=== PATIENT | female | born 1955 | race Caucasian/White ===

== ENCOUNTER → 2017-04-29 | Outpatient (CLI) | payer MEDICAID ==
[~2017-04-29] VITALS: Ht 172.7 cm; Wt 97.5 kg
[~2017-04-29] MED LIST: ASP81TEC PO; CATHETER FLUSH 10 ML SYR IV PRN; CLOP75TA PO; FENO145T2 PO; LINA5TAB PO; LISI10TA PO; LNS30CCR PO; MTP100TCR PO; NF-TYLARTH PO; NIAC-4 PO; OMEG1CAP74 PO; OXYC-12 PO; PIOG1TAB2 PO; REGADENOSON 0.4 MG/5 ML SYR (LEXISCAN) IV ONE; SCR1T1 PO; [UNRECOGNIZED DRUG - CODE] SL
--- NOTE | 2017-04-30 12:11 | STRESS TEST ---
PROCEDURE PHYSICIAN: CAT RUSSELL DATE OF PROCEDURE: 04/29/2017 PHARMACOLOGIC NUCLEAR STRESS TEST REPORT: ATTENDING/REFERRING PHYSICIAN: Dr. Garcia/María Farooq. PRIMARY PHYSICIAN: Dr. Davi Wright. DIAGNOSES: Coronary artery disease. PROCEDURE DETAILS: The patient was brought to the stress lab after informed consent was taken. Pharmacological nuclear stress test was performed according to the protocol. 0.4 mg of Lexiscan was given IV. Low grade exercise was performed. Baseline EKG showed sinus rhythm with no ST-T wave abnormalities. Initial heart rate was 53 bpm. Maximum heart rate was 87 bpm. Blood pressure was 145/66 mmHg. The patient did not have any ST changes, chest pain during Lexiscan infusion. 10.43 mCi of Myoview were given for rest images and 28.5 mCi of Myoview were given for stress imaging. TID is 1.2, ejection fraction is 63%. Gated images showed no wall motion abnormality. There is a small, mild intensity, basal lateral reversible defect. IMPRESSION/CONCLUSION: 1. Pharmacological stress test is negative for ischemia. 2. There is a small area of basal lateral reversible defect. Abnormal TID. This may suggest an abnormal study. Clinical correlation is recommended. Job ID: [id number] Dictated Date: 04/29/2017 13:08:59 Snaker Driving Horses Date: 04/30/2017 12:04:26 / renato
== END ==
LOC: CARD 07:08
PROVIDERS: ATTEND Nurse Practitioner Family
DX: I25.10 Atherosclerotic heart disease of native coronary artery without angina pectoris (principal); I65.23 Occlusion and stenosis of bilateral carotid arteries; E11.9 Type 2 diabetes mellitus without complications; E78.4 Other hyperlipidemia; I10 Essential (primary) hypertension; R07.89 Other chest pain
CPT/HCPCS: 78452; 93017

== ENCOUNTER → 2017-05-03 | Outpatient (CLI) | payer MEDICAID ==
[~2017-05-03] MED LIST changes: -CATHETER FLUSH 10 ML SYR IV PRN; -REGADENOSON 0.4 MG/5 ML SYR (LEXISCAN) IV ONE
== END ==
LOC: PREOP 05:40
PROVIDERS: ATTEND Surgery
DX: Z01.818 Encounter for other preprocedural examination (principal); Z12.11 Encounter for screening for malignant neoplasm of colon; Z86.010 Personal history of colon polyps; Z87.11 Personal history of peptic ulcer disease

== ENCOUNTER → 2017-05-13 | Outpatient (CLI) | payer MEDICAID ==
[2017-05-13 14:42] LABS: ANION GAP 11 MMOL/L (5-14); BLOOD UREA NITROGEN 17 MG/DL (7-18); BUN/CREATININE RATIO 22; CALCIUM 9.8 MG/DL (8.5-10.1); CARBON DIOXIDE 24 MMOL/L (21-32); CHLORIDE 107 MMOL/L (98-107); CREATININE SERUM 0.78 MG/DL (0.60-1.30); GFR ESTIMATED > 60; GLUCOSE 117 MG/DL (70-105); POTASSIUM 4.2 MMOL/L (3.6-5.0); SODIUM 142 MMOL/L (135-145)
== END ==
LOC: LAB 14:16
PROVIDERS: ATTEND Nurse Practitioner Family
DX: E11.9 Type 2 diabetes mellitus without complications (principal)
CPT/HCPCS: 36415; 80048

== ENCOUNTER 2017-05-18 07:11 | Day surgery (SDC) | payer MEDICAID ==
[2017-05-18] VITALS (10 sets, daily range): BP systolic 140–158; BP diastolic 65–80
[~2017-05-18] VITALS: Ht 172.7 cm; Wt 97.5 kg
[~2017-05-18 07:11] MED LIST changes: +HEParin (CATH LAB) 2,000 ML IV ONE; +NS IV 1000 ML 1,000 ML ONE
[2017-05-18] MEDS ORDERED: NS IV 1000 ML 1,000 ML IV SCH ×2 (07:45→12:28)
[2017-05-18 07:51] LABS: MEAN PLATELET VOLUME 10.9 FL (7.4-10.4); RED BLOOD COUNT 4.59 10^6/uL (4.35-5.85); RED CELL DISTRIBUTION WIDTH 13.5 % (10.0-14.5); WHITE BLOOD COUNT 6.9 10^3/uL (4.3-11.0)
[2017-05-18 08:09] LABS: ALANINE AMINOTRANSFERASE 13 U/L (0-55); ALBUMIN 3.8 GM/DL (3.2-4.5); ANION GAP 8 MMOL/L (5-14); ASPARTATE AMINO TRANSFERASE 15 U/L (5-34); BILIRUBIN,TOTAL 0.5 MG/DL (0.1-1.0); BLOOD UREA NITROGEN 18 MG/DL (7-18); BUN/CREATININE RATIO 25; CALCIUM 9.4 MG/DL (8.5-10.1); CARBON DIOXIDE 26 MMOL/L (21-32); CHLORIDE 109 MMOL/L (98-107); CHOLESTEROL 136 MG/DL (< 200); CREATININE SERUM 0.72 MG/DL (0.60-1.30); DIRECT LDL 92 MG/DL (1-129); GFR ESTIMATED > 60; GLUCOSE 114 MG/DL (70-105); POTASSIUM 3.9 MMOL/L (3.6-5.0); SODIUM 143 MMOL/L (135-145); TOTAL PROTEIN 6.9 GM/DL (6.4-8.2); TRIGLYCERIDES 79 MG/DL (<150); VLDL CHOLESTEROL 16 MG/DL (5-40)
[2017-05-18 08:13] LABS: PROTHROMBIN TIME PATIENT 12.5 SEC (12.2-14.7)
[2017-05-18] MEDS ORDERED: SITA100T12 PO (08:24)
[2017-05-18] MEDS ORDERED: NIAC1CAP PO (08:24)
[2017-05-18] MEDS ORDERED: ONDN4T PO (08:24)
[2017-05-18] MEDS ORDERED: PANT40TA2 PO (08:24)
[2017-05-18] MEDS ORDERED: OXYC-464 PO (08:24)
[2017-05-18] MEDS ORDERED: ACET-2267 PO (08:24)
[2017-05-18] MEDS ORDERED: FLUT16SP22 NS (08:24)
[2017-05-18] MEDS ORDERED: METO100T2 PO (08:24)
[2017-05-18] MEDS ORDERED: PIOG1TAB6 PO (08:24)
[2017-05-18] MEDS ORDERED: LISI-552 PO (08:24)
[2017-05-18] MEDS ORDERED: MIDAZOLAM 5 MG/5 ML (VERSED) VIAL ONE (09:29)
[2017-05-18] MEDS ORDERED: fentaNYL INJECTION 100 MCG/2 ML AMP ONE (09:30)
[2017-05-18] MEDS ORDERED: diphenhydrAMINE 50 MG/ML INJ (BENADRYL) ONE (09:30)
--- NOTE | 2017-05-18 09:51 | Cardiac Procedure Note-CS/ASA ---
Pre-Procedure Note Pre-Op Procedure Note H&P Reviewed The H&P was reviewed, patient examined and no changes noted. Date H&P Reviewed: May 18, 2017 Time H&P Reviewed: 09:50 Conscious Sedation Pre-Proced Time Reviewed: 09:50 ASA Class: 3 Airway Mallampati Classification: ([place] appropriate class) I. II. III, IV Lungs Heart ASA score ASA 1: a normal healthy patient ASA 2: a patient with a mild systemic disease (mid diabetes, controlled hypertension, obesity ASA 3: a patient with a severe systemic disease that limits activity (angina , COPD, prior Myocardial infarction) ASA 4: a patient with an incapacitating disease that is a constant threat to life (CHF, renal failure) ASA 5: a moribund patient not expected to survive 24 hrs. (ruptured aneurysm) ASA 6: a declared brain patient whose organs are being harvested. For emergent operations, add the letter E after the classification Grade 3 Sedation Plan: Analgesia, Amnesia, Plan communicated to team members, Discussed options with patient/fam, Discussed risks with patient/fam Note The patient is an appropriate candidate to undergo the planned procedure, sedation, and anesthesia. The patient immediately re-assessed prior to indication. DASIA CHEATHAM MD FACP FAC CCDS May 18, 2017 09:50
[2017-05-18] MEDS ORDERED: PATIENT MAY USE OWN MEDS, ALL PO SCH (12:30)
--- NOTE | 2017-05-18 12:31 | Discharge Inst-Cardiology ---
Discharge Inst-Cardiac Discharge Medications Continued Medications: Acetaminophen (Tylenol Extra Strength) 500 Mg Tablet 1000 MG PO DAILY, TAB TAKES 2 (500MG) TABLETS Aspirin (Aspirin Ec 81 Mg) 81 Mg Tabec 81 MG PO HS, TAB Clopidogrel Bisulfate (Plavix 75 Mg) 75 Mg Tablet 75 MG PO DAILY, TAB Fenofibrate,Micronized (Tricor) 145 Mg Tablet 145 MG PO HS, TAB Fluticasone Propionate (Fluticasone Propionate) 16 Gm [place].susp 1 SPRAY NS BID, SPRAY Lisinopril (Lisinopril) 20 Mg Tablet 20 MG PO BID, TAB Metoprolol Tartrate (Metoprolol Tartrate) 100 Mg Tablet 100 MG PO BID, TAB Niacin (Inositol Niacinate) (Niacin 500 mg Capsule) 500 Mg Capsule 500 MG PO HS, CAP Nitroglycerin (Nitromist) 8.5 Gm Aerosol 1 SPRAY SL UD PRN for CHEST PAIN, EA [place]-3/Dha/Epa/Fish Oil (Fish Oil 1,000 Mg Softgel) 1,000 Mg Capsule 1000 MG PO BID, CAP Ondansetron HCl (Zofran) 4 Mg Tab 4 MG PO Q8H PRN for NAUSEA/VOMITING-1ST LINE, TAB Oxycodone HCl/Acetaminophen (Oxycodon-Acetaminophen 7.5-325) 1 Each Tablet 1 TAB PO TID PRN for PAIN-MODERATE, TAB Pantoprazole Sodium (Protonix) 40 Mg Tablet.dr 40 MG PO DAILY, TAB Pioglitazone HCl/Metformin HCl (Actoplus Met 15 mg-500 mg Tab) 1 Each Tablet 0.5 TAB PO BID, TAB Sitagliptin Phosphate (Januvia) 100 Mg Tablet 100 MG PO DAILY, TAB Sucralfate (Carafate) 1 Gm Tab 1 GM PO ACHS, DASIA GORDON MD FACP FAC CCDS May 18, 2017 12:31
--- NOTE | 2017-05-18 12:32 | Discharge Inst-Post CATH ---
Discharge Inst-CATH Post Cardiac Cath D/C Inst Follow Up/Plan F/u with Dr Garcia in 2-3 weeks CARDIAC CATH DISCHARGE INSTRUCTIONS *Hold Metformin for 48 hours post heart cath. ACTIVITY * Go Home directly and rest. * Limit activity of the leg (or wrist if it was used) for 7 days including aerobics, swimming, jogging, bicycling, etc. * Restrict stair-climbing for 7 days if possible, if not, climb up with your non -cath leg, then bring together on the same step. * Avoid lifting, pushing, pulling or excessive movement of the affected extremity for 7 days. * Customary sexual activity may be resumed after 2 days-use caution not to use a position that strains or causes pain to the affected extremity. * No driving for 24 hours. * NO SMOKING. * Avoid straining for bowel movements for 7 days. * Gentle walking on level ground is allowed. * Returning to work will depend on the type of procedure and the results. Your doctor will discuss this with you. CALL YOUR DOCTOR FOR ANY OF THE FOLLOWING: *If bleeding from the puncture site occurs- Apply gentle pressure to site with clean cloth and call your doctor or EMS. * If a knot or lump forms under the skin, increases in size, or causes pain. * If bruising appears to be worsening or moving further down your leg instead of disappearing. * Temperature above 101 F. CARE OF YOUR GROIN INCISION; * Bruising or purple discoloration of the skin near the puncture site is common. * You may shower only, no bathtub bathing for 5 days. Be careful to avoid slipping as your leg may feel stiff. * If a closure device was used on your femoral artery, please see the attached guide regarding care of the device and your leg. * REMOVE the dressing from your groin the next day after your procedure in the shower. CARE OF YOUR WRIST INCISION; * Bruising or purple discoloration of the skin near the puncture site is common. * You may shower. * DO NOT submerge wrist. * Remove dressing in 24 hours. DASIA GARCIA MD [facility] CCDS May 18, 2017 12:32
--- NOTE | 2017-05-19 10:04 | CARDIAC CATHETERIZATION ---
PROCEDURE PHYSICIAN: DASIA CHEATHAM DATE OF PROCEDURE: 05/18/2017 CARDIAC CATHETERIZATION REPORT: Amy Jeffrey is a 62-year-old lady who has a history of coronary artery disease. She underwent a myocardial perfusion study with Dr. Garcia. Although the electrocardiographic portion was normal, Dr. Garcia did report anterior ischemia on perfusion imaging. Cardiac catheterization was carried out today after having obtained an informed consent. PROCEDURE: She is brought to the cardiac catheterization laboratory in a fasting state. The right groin was prepared and draped in the usual sterile fashion. 1% lidocaine was used for local anesthesia. Modified Seldinger technique was used to advance a 5-Lao sheath in the right femoral artery. A 5-Lao JL4 catheter was used for left coronary angiography. 5-Lao JR4 catheter was used for right coronary angiography. A 5-Lao pigtail catheter was used for left heart catheterization and left ventricular angiography. She tolerated the procedure well. Angiography of the right femoral artery was carried out through the sheath. Mynx was used to achieve hemostasis following sheath removal. She tolerated the procedure well. HEMODYNAMICS: Left ventricular end diastolic pressure following coronary angiography was 12 mmHg. There was no significant pressure gradient on pullback across the aortic valve. Ascending aortic pressure was 146/69 with a mean of 46 mmHg. LEFT VENTRICULAR ANGIOGRAPHY: Left ventricular angiography was carried out in the right anterior oblique projection only. Global left ventricular systolic function is normal. No regional wall motion abnormalities are seen. The left ventricular ejection fraction is 55 to 60%. CORONARY ANGIOGRAPHY: There are mild diffuse coronary plaques. No angiographically significant obstructive disease is seen. The left main coronary, left anterior descending, left circumflex, and right coronary arteries exhibit mild plaques. Right coronary artery is dominant. CONCLUSION: 1. Angiographically minimal coronary artery disease. 2. Normal global left ventricular systolic function with an ejection fraction of 55 to 60%. 3. No significant mitral regurgitation. 4. Normal left ventricular end diastolic pressure. DISCUSSION AND RECOMMENDATIONS: Based on the results of this study, the myocardial perfusion imaging appears to have been a false positive study. It appears appropriate to continue a conservative approach. Outpatient follow-up is advised. Risk factor modification was reviewed. Job ID: [id number] Dictated Date: 05/18/2017 10:30:48 Roller Skate Assembler Date: 05/19/2017 09:54:42 / renato
[2017-08-27] MEDS ORDERED: TIZA4TAB3 PO (07:48)
[2017-08-27] MEDS ORDERED: TRAM50TA2 PO (09:37)
== END 2017-05-18 14:25 | disposition home or self-care (01) ==
LOC: CATH 07:11 → SURG 10:37 → ENPENDDIS 13:30 → CATH 14:25
PROVIDERS: ATTEND Internal Medicine Cardiovascular Disease
DX: R94.39 Abnormal result of other cardiovascular function study (principal); R00.0 Tachycardia, unspecified; R07.89 Other chest pain; I25.10 Atherosclerotic heart disease of native coronary artery without angina pectoris; I11.9 Hypertensive heart disease without heart failure; E66.9 Obesity, unspecified; E11.9 Type 2 diabetes mellitus without complications; K21.9 Gastro-esophageal reflux disease without esophagitis; Z79.84 Long term (current) use of oral hypoglycemic drugs; Z79.899 Other long term (current) drug therapy; Z68.33 Body mass index [BMI] 33.0-33.9, adult
CPT/HCPCS: 36415; 80053; 80061; 85027; 85610; 85730; 87081; 93005; 93458

== ENCOUNTER 2017-08-16 05:55 | Outpatient (CLI) | payer MEDICAID ==
[~2017-08-16] VITALS: Ht 172.7 cm; Wt 97.5 kg
[~2017-08-16 05:55] MED LIST changes: +ACET-2267 PO; +FLUT16SP22 NS; -HEParin (CATH LAB) 2,000 ML IV ONE; +LISI-552 PO; +METO100T2 PO; +NIAC1CAP PO; -NS IV 1000 ML 1,000 ML ONE; +ONDN4T PO; +OXYC-464 PO; +PANT40TA2 PO; +PIOG1TAB6 PO; +SITA100T12 PO
[2017-08-16] MEDS ORDERED: ASPI-999 PO (14:20)
[2017-08-16] MEDS ORDERED: ATOR10TA PO (14:20)
[2017-08-16] MEDS ORDERED: SUCR1TAB PO (14:20)
[2017-08-16] MEDS ORDERED: OMEG-160 PO (14:20)
== END 2017-08-16 14:21 ==
LOC: PREOP 05:55
PROVIDERS: ATTEND Surgery
DX: Z01.818 Encounter for other preprocedural examination (principal); Z86.010 Personal history of colon polyps; Z87.11 Personal history of peptic ulcer disease

== ENCOUNTER 2017-08-18 12:03 | Day surgery (SDC) | payer MEDICAID ==
[~2017-08-18] VITALS: Ht 172.7 cm; Wt 97.5 kg
[~2017-08-18 12:03] MED LIST changes: +ASPI-999 PO; +ATOR10TA PO; +OMEG-160 PO; +SUCR1TAB PO
[2017-08-18] MEDS ORDERED: LIDOCAINE JELLY 2% (XYLOCAINE) 5 ML TUBE MM PRN (12:15)
[2017-08-18] MEDS ORDERED: HURRICAINE EXT TUBE (BENZOCAINE) XX PRN (12:15)
[2017-08-18] MEDS ORDERED: NS IV 500 ML 500 ML IV PRN (12:30)
[2017-08-18 12:46] VITALS: BP 148/73
--- NOTE | 2017-08-18 13:13 | Progress Note-Pre Operative ---
Pre-Operative Progress Note H&P Reviewed The H&P was reviewed, patient examined and no changes noted. Date Seen by Provider: Aug 18, 2017 Time Seen by Provider: 13:00 Date H&P Reviewed: Aug 18, 2017 Time H&P Reviewed: 13:00 Pre-Operative Diagnosis: PUD, screening colonosocopy MARGUERITE WAITE MD Aug 18, 2017 1:13 pm
--- NOTE | 2017-08-18 13:13 | Conscious Sedation/ASA ---
Conscious Sedation Pre-Proced Time Reviewed: 13:00 ASA Class: 2 Airway Mallampati Classification: ([place] appropriate class) I. II. III, IV Lungs Heart ASA score ASA 1: a normal healthy patient ASA 2: a patient with a mild systemic disease (mid diabetes, controlled hypertension, obesity ASA 3: a patient with a severe systemic disease that limits activity (angina , COPD, prior Myocardial infarction) ASA 4: a patient with an incapacitating disease that is a constant threat to life (CHF, renal failure) ASA 5: a moribund patient not expected to survive 24 hrs. (ruptured aneurysm) ASA 6: a declared brain patient whose organs are being harvested. For emergent operations, add the letter E after the classification Grade 3 Sedation Plan: Analgesia, Amnesia, Plan communicated to team members, Discussed options with patient/fam, Discussed risks with patient/fam Note The patient is an appropriate candidate to undergo the planned procedure, sedation, and anesthesia. The patient immediately re-assessed prior to indication. MARGUERITE WAITE MD Aug 18, 2017 1:12 pm
[2017-08-18] MEDS ORDERED: ACETAMINOPHEN 325 MG TABLET/CAPLET (TYLENOL) PO PRN (13:15)
[2017-08-18] MEDS ORDERED: morphine INJ 10 MG/ML 1ML (SYR OR VIAL) IV PRN (13:15)
[2017-08-18] MEDS ORDERED: ONDANSETRON 4 MG/2 ML (SDV) Z0FRAN IV PRN (13:15)
[2017-08-18] MEDS ORDERED: LIDOCAINE JELLY 2% (XYLOCAINE) 5 ML TUBE ONE (13:34)
[2017-08-18] MEDS ORDERED: MIDAZOLAM 2 MG/2 ML (VERSED) VIAL ONE ×5 (13:35)
[2017-08-18] MEDS ORDERED: HURRICAINE EXT TUBE (BENZOCAINE) ONE (13:35)
[2017-08-18] MEDS ORDERED: fentaNYL INJECTION 100 MCG/2 ML AMP ONE ×2 (13:35)
[2017-08-18] MEDS: MIDAZOLAM 2 MG/2 ML (VERSED) VIAL IVP PRN ×5 (13:59→14:20)
[2017-08-18] MEDS: fentaNYL INJECTION 100 MCG/2 ML AMP IVP PRN ×4 (14:00→14:29)
--- NOTE | 2017-08-18 14:51 | Progress Note-Post Operative ---
Post-Operative Progess Note Surgeon (s)/Horticulture Supervisor (s) Surgeon MARGUERITE WAITE MD Horticulture Supervisor: none Pre-Operative Diagnosis PUD, screening colonosocopy Post-Operative Diagnosis reflux esophagitis(class B), no HH, mild gastritis. chronic stage 2 ext and int hemorrhoids, HP rectal polyp(2mm). Procedure & Operative Findings Date of Procedure 08/18/17 Procedure Performed/Findings EGD with bx. Colonoscopy with bx. Anesthesia Type CS Estimated Blood Loss Estimated blood loss (mL): minimal Specimens/Packing Specimens Removed GE jxn, antrum, rectal polyp MARGUERITE WAITE MD Aug 18, 2017 2:51 pm
--- NOTE | 2017-08-18 14:52 | Discharge Inst-Surgical ---
D/C Lap Instructions-RAVINDRA Follow Up 10 years or PRN Activity as tolerated High Fiber Diet 25g or more per day Avoid Alcohol, Caffeine, Spicy [place] and Acid foods. Drink 64 fluid oz or more of fluids per day. Symptoms to Report: Fever over 101 degree F, Nausea/Vomiting If any problems/questions: Contact your physician or go to Emergency Room MARGUERITE WAITE MD Aug 18, 2017 2:52 pm
[2017-08-18 14:55] VITALS: BP 179/84
[2017-08-18 15:20] VITALS: BP 175/94
[2017-08-18 15:37] VITALS: BP 175/94
--- NOTE | 2017-08-19 03:04 | OPERATIVE REPORT ---
DATE OF SERVICE: 08/18/2017 ATTENDING PRIMARY CARE PHYSICIAN: Dr. Davi Wright. PREOPERATIVE DIAGNOSES: History of peptic ulcer disease and gastroesophageal reflux disease. Screening colonoscopy. POSTOPERATIVE DIAGNOSES: Reflux esophagitis class B. No hiatal hernia, mild gastritis. Chronic stage II external and internal hemorrhoids, small hyperplastic polyp of the rectum 2 mm in size and remainder of the colon was normal. PROCEDURE: EGD with biopsy, colonoscopy with biopsy. SURGEON: Dr. Waite. ANESTHESIA: Conscious sedation. ESTIMATED BLOOD LOSS: Minimal. FINDINGS: EGD, reflux esophagitis class B, no hiatal hernia, mild gastritis. Colonoscopy, chronic stage II external and internal hemorrhoids, small hyperplastic polyp of the rectum 2 mm in size. The remainder of the rectum and colon were normal. DISPOSITION: The patient tolerated the procedure well. The patient is a 60-year-old female referred over to us for reflux type of symptoms, which have worsened in the past month with epigastric burning sensation assisted with eating fruits as well as tomatoes. She does report also history of peptic ulcer disease. She is also in need of a screening colonoscopy. Her last colonoscopy was 10 years ago and she does remember polyps. She does not report any red blood per rectum nor any dark tarry stools. DESCRIPTION OF PROCEDURE: The patient was brought to the endoscopy suite, laid in the left lateral decubitus position. After adequate IV pain and sedating medications and conscious sedation with anesthesia, the mouthpiece was applied. Endoscope was then placed in the mouth visualizing the pharynx and hypopharyngeal region. Vocal cords, epiglottis and vallecula identified and appeared to be normal. The endoscope was then gently intubated at the esophageal opening. Esophagus is insufflated. The endoscope was then advanced to the first, second and third portions of the esophagus at the level of the GE junction and reflux esophagitis class B identified. There were no ulcers or strictures identified in this region. A biopsy was taken with forceps with visualization of good hemostasis. The endoscope was then easily advanced in the stomach and the endoscope retroflexed visualizing no hiatal hernia. Mild severity gastritis was noted. There were no ulcers, polyps or any neoplasms identified. The endoscope was then advanced to the pylorus and the first and second portions of the duodenum, which appeared normal with no distal obstructions. A biopsy was taken of the antrum for H. pylori with forceps with visualization of good hemostasis. Endoscope was then advanced to the pylorus and the first and second portion of the duodenum. The endoscope was then slowly withdrawn taking a second look and suctioning of residual air with no additional findings. The patient tolerated this portion of the procedure well. We feel that her worsening reflux type of symptoms are more related to diet and lifestyle. The recommendations that she proceed with the necessary lifestyle and diet accommodation including small and more frequent meals, avoidance of eating at night as well as head elevation while lying supine. She also needs to avoid caffeinated beverages, spicy, greasy and acidic foods including tomatoes and other raw fruits. We do recommend that she continue her Protonix on a daily basis as well as Carafate q.i.d. for 2 weeks. Under the same conscious sedation anesthesia, we then proceeded with the colonoscopy portion of the procedure. A digital rectal examination was performed, which revealed chronic stage II external and internal hemorrhoids, not actively demonstrated inflamed and no bleeding. Normal sphincter tone was felt and there were no palpable masses. The endoscope was then intubated to the anus, rectum and gently insufflated. The endoscope was then advanced to the valves that adhesed the rectum. A small hyperplastic polyp was identified approximately 2 mm in size. This was biopsied and this destroyed using forceps and electrocautery with visualization of good hemostasis. The endoscope was then advanced through the sigmoid colon where no diverticulosis identified. We then proceeded through the descending, transverse and ascending colon of the cecum, which were normal. The endoscope was then slowly withdrawn, we are taking a second look and suctioning residual air with no additional findings. The patient tolerated the procedure well. We will recommend continued medical management with high fiber diet with at least 25 to 30 grams of fiber per day as well as at least 64 fluid ounces of water daily to promote soft stools on a daily basis. The polyp was a benign hyperplastic polyp, which does not have any malignancy potential and she also does not have any family history of colon cancer. She may wait 10 years or sooner if any problems arise. Job ID: [id number] DocumentID: [id number] Dictated Date: 08/18/2017 14:59:08 Shell Grader Date: 08/19/2017 03:04:25 Dictated By: MARGUERITE WAITE MD
== END 2017-08-18 15:35 | disposition home or self-care (01) ==
LOC: ENDO 12:03
PROVIDERS: ATTEND Surgery
DX: Z12.11 Encounter for screening for malignant neoplasm of colon (principal); K21.0 Gastro-esophageal reflux disease with esophagitis; K29.70 Gastritis, unspecified, without bleeding; K62.1 Rectal polyp; K64.1 Second degree hemorrhoids; E11.9 Type 2 diabetes mellitus without complications; I10 Essential (primary) hypertension; I25.2 Old myocardial infarction; Z87.442 Personal history of urinary calculi

== ENCOUNTER → 2017-09-24 | Outpatient (CLI) | payer MEDICAID ==
[~2017-09-24] MED LIST changes: +IOHEXOL 350 MG/ML 100 ML (OMNIPAQUE 350) VIAL IV ONE; +METO100T12 PO; -METO100T2 PO; +NS 100 ML (IVPB) BAG IV ONE; +TIZA4TAB3 PO; +TRAM50TA2 PO
[2017-09-24 08:44] LABS: ALANINE AMINOTRANSFERASE 13 U/L (0-55); ALBUMIN 3.8 GM/DL (3.2-4.5); ANION GAP 9 MMOL/L (5-14); ASPARTATE AMINO TRANSFERASE 18 U/L (5-34); BILIRUBIN,TOTAL 0.4 MG/DL (0.1-1.0); BLOOD UREA NITROGEN 15 MG/DL (7-18); BUN/CREATININE RATIO 23; CALCIUM 9.2 MG/DL (8.5-10.1); CARBON DIOXIDE 27 MMOL/L (21-32); CHLORIDE 106 MMOL/L (98-107); CREATININE SERUM 0.64 MG/DL (0.60-1.30); GFR ESTIMATED > 60; GLUCOSE 136 MG/DL (70-105); POTASSIUM 3.9 MMOL/L (3.6-5.0); SODIUM 142 MMOL/L (135-145); TOTAL PROTEIN 7.3 GM/DL (6.4-8.2)
--- NOTE | 2017-09-24 11:57 | Diagnostic Imaging Report ---
PROCEDURE: CT chest with contrast only. TECHNIQUE: Multiple contiguous axial images were obtained through the chest after administration of intravenous contrast. INDICATION: Pulmonary nodule, followup. CORRELATION STUDY: PET CT 05/21/2015. FINDINGS: Smoothly marginated solid nodule in the anterolateral aspect of the right midlung persists and generally stable currently measuring 9 x 8 mm, previously measuring approximately 11 x 9 mm measured in a similar fashion. This is adjacent to prominent vessel. The remaining lung parenchyma appearing unremarkable. No additional pulmonary nodules or infiltrate. No pleural effusion. Heart size mildly enlarged. No pericardial effusion. No pathologically enlarged mediastinal and/or hilar lymph nodes. Calcified granuloma in the right paratracheal region. EG junction unremarkable. Visualized portions of the upper abdomen demonstrate low-density masses off the superior pole of the right kidney. Largest posteriorly measures 2.5 cm, appears unchanged. Cholecystectomy clips. IMPRESSION: 1. Overall generally stable appearance and size of a thin pulmonary nodule in anterior right mid lung in the upper lobe. 2. Stable appearance about the exophytic low-density nodules of the superior pole of right kidney. Dictated by: Dictated on workstation # [id number]
== END ==
LOC: RAD 08:07
PROVIDERS: ATTEND Nurse Practitioner Family
DX: R91.1 Solitary pulmonary nodule (principal); N28.89 Other specified disorders of kidney and ureter
CPT/HCPCS: 36415; 71260; 80053

== ENCOUNTER → 2017-09-27 | Outpatient (CLI) | payer MEDICAID ==
[~2017-09-27] MED LIST changes: +GADOBUTROL 10 MMOL/10 ML (GADAVIST) VIAL IV ONE; -IOHEXOL 350 MG/ML 100 ML (OMNIPAQUE 350) VIAL IV ONE; -NS 100 ML (IVPB) BAG IV ONE
--- NOTE | 2017-09-27 16:51 | Diagnostic Imaging Report ---
PROCEDURE: MR imaging abdomen with and without contrast. TECHNIQUE: Multiplanar, multisequence MR imaging of the abdomen was performed with and without contrast. INDICATION: Flank pain. Renal masses. Indeterminate lesion in the right kidney on ultrasound of 08/28/2017. 10 mL of Gadavist is administered intravenously. COMPARISON: 05/27/2015 exam. FINDINGS: The kidneys demonstrate multiple lesions with a dominant lesion measuring 2.5 cm exophytic from the upper pole of the right kidney projecting posteriorly. This has hyperintense T2 signal and no significant enhancement suggestive of a cyst stable from the previous exam. There is a mass developed in the anterior aspect of the left kidney measuring 2.5 cm with heterogenous enhancement concerning for renal cell carcinoma. The left renal vein is patent. No periaortic significantly enlarged lymph nodes are seen. The visualized portions of the liver, the spleen, the pancreas, and the adrenal glands appear unremarkable. IMPRESSION: A 2.5 cm enhancing mass is seen in the anterior aspect of the left kidney highly suggestive of a renal cell carcinoma. A followup renal mass protocol CT scan of the abdomen with and without contrast is suggested for confirmation. Ms. Александр Rincon, the nurse practitioner taking care of the patient was called and informed of the findings at time of dictation. Dictated by: Dictated on workstation # [id number]
== END ==
LOC: RAD 08:41
PROVIDERS: ATTEND Nurse Practitioner Family
DX: N28.89 Other specified disorders of kidney and ureter (principal)
CPT/HCPCS: 74183

== ENCOUNTER → 2017-09-29 | Outpatient (CLI) | payer MEDICAID ==
[~2017-09-29] MED LIST changes: -GADOBUTROL 10 MMOL/10 ML (GADAVIST) VIAL IV ONE; +IOHEXOL 350 MG/ML 100 ML (OMNIPAQUE 350) VIAL IV ONE; +NS 100 ML (IVPB) BAG IV ONE
--- NOTE | 2017-09-29 09:49 | Diagnostic Imaging Report ---
PROCEDURE: CT abdomen and pelvis with and without contrast. TECHNIQUE: Precontrast acquisitions were acquired through the abdomen and pelvis. Multiple contiguous axial images were obtained through the abdomen and pelvis after the administration of intravenous contrast. INDICATION: Renal mass. COMPARISON: Exam interpreted in correlation with overlapped images from chest CT 09/24/2017 and with recent contrast assisted abdominal MRI. FINDINGS: Heterogeneously enhancing solid left renal mass measures a maximal diameter of 2.7 cm transverse and is very suggestive of renal cell carcinoma. A simple cyst in the right kidney at its middle to upper one third present. A cyst off the lower pole cortex of the left kidney is slightly exophytic laterally but showed no obvious enhancement. There is no adrenal mass. There is mild post cholecystectomy central intrahepatic and extrahepatic biliary ectasia. The cava and renal veins patent bilaterally. No thickening or distortion of Gerota's fascia. No suspicious lytic or sclerotic bony lesion. The lung bases revealed no nodule, infiltrate or effusion. No omental or peritoneal mass. IMPRESSION: Heterogeneously enhancing solid left renal mass 2.7 cm diameter strongly suggestive of renal cell carcinoma. Additional renal cysts bilaterally are noted. There were no findings of regional or distant metastasis revealed at this exam. Mild presumed postcholecystectomy biliary ectasia with negative pancreas. Dictated by: Dictated on workstation # [id number]
== END ==
LOC: RAD 08:35
PROVIDERS: ATTEND Nurse Practitioner Family
DX: N28.89 Other specified disorders of kidney and ureter (principal); N28.1 Cyst of kidney, acquired; Z90.49 Acquired absence of other specified parts of digestive tract
CPT/HCPCS: 74178

== ENCOUNTER → 2017-11-03 | Outpatient (CLI) | payer MEDICAID ==
[~2017-11-03] MED LIST changes: -IOHEXOL 350 MG/ML 100 ML (OMNIPAQUE 350) VIAL IV ONE; -NS 100 ML (IVPB) BAG IV ONE
== END ==
LOC: RAD 09:12
PROVIDERS: ATTEND Nurse Practitioner Family
DX: Z12.31 Encounter for screening mammogram for malignant neoplasm of breast (principal)
CPT/HCPCS: 77067

== ENCOUNTER 2017-12-12 10:26 | Emergency (ER) | payer MEDICAID ==
[~2017-12-12] VITALS: Ht 172.7 cm; Wt 95.3 kg
--- OUTSIDE RECORDS SUMMARY | 2017-12-12 10:31 | XMS REPORT | Continuity of Care Document ---
Author Author [employer] Organization [facility] Address Unknown Phone Unavailable Care Team Providers Care Gymnastic Teacher Name Role Phone [employer] Unavailable Unavailable Problems Medications Allergies, Adverse Reactions, Alerts Immunizations Results Vital Signs Encounters Location Location Details Encounter Type Encounter Number Reason For Visit Attending Provider ADM Date DC Date Status Source OUTPATIENT [id number] 11/15/2017 Active [facility] OUTPATIENT [id number] 11/15/2017 Active [facility] Emeka WINTERS Active [facility] Procedures Plan of Care Social History Assessment and Plan Family History Advance Directives Functional Status
--- OUTSIDE RECORDS SUMMARY | 2017-12-12 10:32 | XMS REPORT | Encounter Summary ---
Author Author [facility] Organization [facility] Address Unknown Phone Unavailable Care Team Providers Care Wire Harness Design Engineer Name Role Phone Juan Rinconele MIESHA PCP Reason for Referral * Radiology Services Status Reason Specialty Diagnoses / Referred By Referred To Procedures Contact Contact New Request Radiology Diagnoses Lamberto Monsalve MD Left renal mass [address] [place] [address] ABDOMEN WO/W [place], [place] CONTRAST [address] Encounter Details Date Type Department Care Team Description 11/22/2017 Orders Only [facility] Lamberto Monsalve MD Left renal mass ([facility] Exam [address] Dx) [address] [place] [address] [place] [address] [phone] Social History Tobacco Use Types Packs/Day Years Used Date Never Assessed Sex Assigned at Date Recorded Not on file as of this encounter Progress Notes * Francisca Hughes, RN - 11/22/2017 4:08 PM [employer] Pt called to report she would like to have outside CT @ [facility] in [place] in 6 mo and return to see Dr. Monsalve. She has decided not to have surgery or IR ablation at this time. She wants to be watched and monitored. Dr. Monsalve had advised rtc in 6 mo w/ imaging. in this encounter Plan of Treatment Name Priority Associated Diagnoses Order Schedule CT ABDOMEN WO/W CONTRAST Routine Left renal mass Expected: 05/22/2018 (Approximate), Expires: 11/22/2018 as of this encounter Visit Diagnoses Diagnosis Left renal mass - Primary Unspecified disorder of kidney and ureter
--- OUTSIDE RECORDS SUMMARY | 2017-12-12 10:32 | XMS REPORT | Encounter Summary ---
Author Author [facility] Organization [facility] Address Unknown Phone Unavailable Care Team Providers Care Market Gardener Name Role Phone Александр Rincon APRN PCP Encounter Details Date Type Department Care Team Description 11/09/2017 Ancillary Rad Outpatient, Radiologist Diagnosis unknown Orders [address] [place] [address] Social History Tobacco Use Types Packs/Day Years Used Date Never Assessed Sex Assigned at Date Recorded Not on file as of this encounter Plan of Treatment Not on fileas of this encounter Results * CT ABD/PEL EXTERNAL IMAGING (09/29/2017) Narrative This order has been auto finalized and does not contain a result. * NM PET/CT EXTERNAL IMAGING (05/21/2015) Narrative This order has been auto finalized and does not contain a result. in this encounter Visit Diagnoses Diagnosis Diagnosis unknown Other unknown and unspecified cause of morbidity or mortality
--- OUTSIDE RECORDS SUMMARY | 2017-12-12 10:32 | XMS REPORT | Encounter Summary ---
Author Author [facility] Organization [facility] Address Unknown Phone Unavailable Care Team Providers Care Bog Worker Name Role Phone Александр Rincon APRN PCP Reason for Visit * Reason Comments Records Request Encounter Details Date Type Department Care Team Description 12/02/2017 Telephone [facility] Lamberto Monsalve MD Records Request [facility] - [facility] Exam [address] [place] [address] [place] [address] [phone] Social History Tobacco Use Types Packs/Day Years Used Date Never Assessed Sex Assigned at Date Recorded Not on file as of this encounter Miscellaneous Notes * Telephone Encounter - Francisca Hughes RN - 12/02/2017 1:15 PM 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 Monsalve and she had signed papers to have this done. Visit note from Dr. Monsalve faxed to Ruth Rincon APRN @ #[phone] as requested. in this encounter Plan of Treatment Not on fileas of this encounter Visit Diagnoses Not on filein this encounter
--- OUTSIDE RECORDS SUMMARY | 2017-12-12 10:32 | XMS REPORT | Encounter Summary ---
Author Author [facility] Organization [facility] Address Unknown Phone Unavailable Care Team Providers Care Conventional Machinist Name Role Phone Александр Rincon APRN PCP Encounter Details Date Type Department Care Team Description 11/04/2017 Ancillary Rad Outpatient, Radiologist Diagnosis unknown Orders [address] [place] [address] Social History Tobacco Use Types Packs/Day Years Used Date Never Assessed Sex Assigned at Date Recorded Not on file as of this encounter Plan of Treatment Not on fileas of this encounter Results * GENERAL RAD LOWER EXT EXTERNAL IMAGING (07/31/2017) Narrative This order has been auto finalized and does not contain a result. * GENERAL RAD LOWER EXT EXTERNAL IMAGING (07/10/2017) Narrative This order has been auto finalized and does not contain a result. * GENERAL RAD LOWER EXT EXTERNAL IMAGING (06/29/2017) Narrative This order has been auto finalized and does not contain a result. in this encounter Visit Diagnoses Diagnosis Diagnosis unknown Other unknown and unspecified cause of morbidity or mortality
--- OUTSIDE RECORDS SUMMARY | 2017-12-12 10:32 | XMS REPORT | Encounter Summary ---
Author Author [facility] Organization [facility] Address Unknown Phone Unavailable Care Team Providers Care Clipper Machine Operator Name Role Phone Александр Rincon APRN PCP Reason for Visit * Reason Comments Navigation Assessment Encounter Details Date Type Department Care Team Description 10/22/2017 Telephone [facility] Lamberto Monsalve MD Navigation Assessment [facility] Exam [address] [place] [address] [place] [address] [phone] Social History Tobacco Use Types Packs/Day Years Used Date Never Assessed Sex Assigned at Date Recorded Not on file as of this encounter Miscellaneous Notes * Telephone Encounter - Amy Mendieta RN - 11/14/2017 9:42 PM SHAREPOINT DEVELOPER Navigation Intake Assessment Document Patient Name: Amy Jeffrey : 1955 [facility]: [facility] Appointment Info: [facility] [place]: Dr. Lamberto Monsalve: 11/15/17 arrive at 1:30 pm/ appointment at 2:00 pm, PAT AT 3:30 if needed Diagnosis & Reason for Visit: Left renal mass. Mention of right renal mass on ultrasound. Physician Info: Referring Physician: Александр Rincon APRN Contact Name & Number: [facility]: [place]: [phone] Surgeon: Refer to Dr. Lamberto Jackson Urology: Dexter Coleman PCP: Александр Rincon RN Other: Roofing Superintendent: Dr. Garcia: [place] Location of Films: PACS Location of Pathology: no pathology History of Present Illness: Amy Jeffrey is a 62 year old female with a known renal mass from 2014 presented to local emergency room with complaint of right lower abdominal pain/rightflank pain in September,. Previous imaging mentions an upper pole right renal mass but MRI and CT with contrast show inhancing mass on anterior aspect of left kidney. Patient is referred for further evaluation and treatment. Medical history: Hypertension, gastric ulcer, spondylosis of cervical region, retrolisthesis of vertebrae,coronary artery disease , diabetes. 05/21/15 PET/CT: Impression: There are mulitple lesions seen in the kidneys on prior CT scan, one of which is readily visable on this study approximately 2 cm exophytic right upper pole lesion which demonstrates no increased FDG uptake suggestive of benign eliology. 1. A 1.0 cm right middle lobe nodule with no FDG uptake suggestive of benign etiology. 2. No definite hypermetabolic lesion seen the kidneys, however, due to physiologic significant background renal uptake and also variable FDG avidity of renal cell carcinoma, an underlying Neoplasm is not entirely excluded. MRI of the abdomen, renal mass protocol, is recommended for further evaluation. 08/27/17 Ultrasound of the kidneys: Impression: 1. There is a 2.5 exophytic lesion involving the upper pole of the right kidney which correlates to the lesion on the comparison CT scan of concern. Bowel gas obscured this exophytic lesion and I am unable to determine if this is a solid or complex cystic lesion. Give its appearance on CT, non emergent MRI would help further characterize this lesion. 2. Right renal cyst 3. Otherwise remainder of this exam is unremarkable. 08/28/17 Lab: Creatinine: 0.66 GFR: >60 08/28/17 Chest xray: Impression: There is no radiographic evidence of acute cardiopulmonary process. 09/27/17 MRI abdomen with and without contrast: Impression: A 2.5 cm enhancing mass is seen in the anterior aspect of the left kidney highly suggestive of a renal cell carcinoma. A followup renal mass protocol CT is suggested for confirmation. 09/29/17 CT abdomen/pelvis: Impression: Heterogeneous enhancing solid left renal mass, 2.7 cm diameter strongly suggestive of renal cell carcinoma. Additional renal cysts bilaterally are noted. There were no findings of regional or distant metastasis revealed at this exam. Mild presumed post cholecystectomy biliary ectasia with negative pancreas. Comments: Patient verbalized understanding of appointment date, time, and location. Has my name and number if questions. Patient Resource Guide sent to home address by UPS. NEEDS Assessment: Genetic Counseling: not discussed Nutrition: Patient provided information on all available services Social Work/Financial: Patient provided information on available services Spiritual & Emotional: Emotional support provided and Patient provided information on available services Physical: No needs identified Communication: no needs identified and No needs identified Oncofertility - Females age 40 and under; Males age 50 and under : Not applicable in this encounter Plan of Treatment Not on fileas of this encounter Visit Diagnoses Not on filein this encounter
--- OUTSIDE RECORDS SUMMARY | 2017-12-12 10:32 | XMS REPORT | Encounter Summary ---
Author Author [facility] Organization [facility] Address Unknown Phone Unavailable Care Team Providers Care Orthodontic Treatment Coordinator Name Role Phone PCP Unavailable Encounter Details Date Type Department Care Team Description 09/29/2017 Hospital [facility] Radiology [address] [place] [address] Social History Tobacco Use Types [...]
--- OUTSIDE RECORDS SUMMARY | 2017-12-12 10:32 | XMS REPORT | Encounter Summary ---
Author Author [facility] Organization [facility] Address Unknown Phone Unavailable Care Team Providers Care Agricultural Researcher Name Role Phone PCP Unavailable Encounter Details Date Type Department Care Team Description 10/13/2017 Documentation [facility] Exam [address] [place] [address] Social History Tobacco Use Types Packs/Day Years Used Date Never Assessed Sex Assigned at Date Recorded Not on file as of this encounter Progress Notes * Aidan, March - 10/13/2017 3:04 PM DRY CAN TENDER This patient was referred to us by Dr. Dexter Zhou on 10/13/17 for L renal mass. When I contacted the patient she said she had contacted Dr. Zhou's office and requested a referral to a [place] doctor since that was closer for her to drive during this time of year. in this encounter Plan of Treatment Not on fileas of this encounter Visit Diagnoses Not on filein this encounter
--- OUTSIDE RECORDS SUMMARY | 2017-12-12 10:32 | XMS REPORT | Clinical Summary ---
Author Author [facility] Organization [facility] Address Unknown Phone Unavailable Care Team Providers Care Software Qa Manager Name Role Phone Александр Rincon APRN PCP Source Comments Some departments are not documenting in the electronic medical record. If you do not see the information that you expected, contact Release of Information in the Health Information Management department at [phone] for further assistance in locating additional records.[facility] Allergies Not on File Current Medications Not on file Active Problems Problem Noted Date Left renal mass 11/15/2017 Overview: 09/27/17 MRI abdomen with and without contrast: [...] post cholecystectomy biliary ectasia with negative pancreas. 05/21/15 PET/CT: Impression: There are mulitple lesions seen in the kidneys on prior CT scan, one of which is readily visable on this study approximately 2 cm exophytic right upper pole lesion which demonstrates no increased FDG uptake suggestive of benign eliology. 08/28/17 Lab: Creatinine: 0.66 GFR: >60 L ast Assessment & Plan: Mrs Jeffrey is a very pleasant 62 y/o F with a newly found LEFT renal mass. The mass is 2.7 cm in size and enhancing with IV contrast. I went through the cross sectional image findings with the patient. We discussed the implications of enhancing renal masses and the natural history of kidney cancer. I explained that there is a small chance the renal mass is a benign lesion. We went over an extensive discussion about the potential management of a small renal mass, informed by the most recent 2017 AUA Guidelines on the management of T1 renal masses. These include active surveillance with or without biopsy, biopsy of the mass and subsequent decision, ablative therapy with cryotherapy, RFA, or microwave, partial nephrectomy (robotic, laparoscopic, open), and radical nephrectomy. Examination of the recent CT and MRI imaging, there is concern that this mass tightly abuts the left renal vasculature as well as potentially involves or closely abuts the collecting system which would make partial nephrectomy very technically difficult with risk of renal unit loss intraoperatively, or risk of collecting system entry with post-operative urine leak. Discussed potential for ablative techniques per IR if they deem this safe to perform. Patient will discuss options for treatment and meet with cardiology, speak with IR, and determine her treatment course after this. - patient to meet with IR to discuss ablation - cardiology evaluation for potential stress test prior to any intervention - will determine personal preference for treatment course - L laparoscopic nephrectomy vs ablation; she will call after discussion with IR Encounters Date Type Specialty Care Team Description 12/02/2017 Telephone Oncology Lamberto Monsalve MD Records Request 12/02/2017 Telephone Oncology Lamberto Monsalve MD Appointment Request 11/22/2017 Orders Only Oncology Lamberto Monsalve MD Left renal mass ( Primary Dx) 11/15/2017 Office Visit Oncology Lamberto Monsalve MD Left renal mass 11/09/2017 Ancillary Radiology Outpatient, Radiologist Diagnosis unknown Orders 11/04/2017 Ancillary Radiology Outpatient, Radiologist Diagnosis unknown Orders 10/22/2017 Telephone Oncology Lamberto Monsalve MD Navigation Assessment 10/13/2017 Documentation Oncology [place], 09/29/2017 Hospital Radiology Encounter from Last 3 Months Social History Tobacco Use Types Packs/Day Years Used Date Never Assessed Sex Assigned at Date Recorded Not on file Last Filed Vital Signs Vital Sign Reading Time Taken Blood Pressure 176/81 11/15/2017 1:35 PM REGULATORY AFFAIRS COORDINATOR Pulse 62 11/15/2017 1:35 PM REGULATORY AFFAIRS COORDINATOR Temperature 36.5 C (97.7 F) 11/15/2017 1:35 PM REGULATORY AFFAIRS COORDINATOR Respiratory Rate 16 11/15/2017 1:35 PM REGULATORY AFFAIRS COORDINATOR Oxygen Saturation 100% 11/15/2017 1:35 PM REGULATORY AFFAIRS COORDINATOR Inhaled Oxygen - - Concentration Weight 98.5 kg (217 lb 3.2 oz) 11/15/2017 1:35 PM REGULATORY AFFAIRS COORDINATOR Height 172.7 cm (5' 8") 11/15/2017 1:35 PM REGULATORY AFFAIRS COORDINATOR Body Mass Index 33.03 11/15/2017 1:35 PM REGULATORY AFFAIRS COORDINATOR Plan of Treatment Health Maintenance Due Date Last Done Comments HEPATITIS C SCREENING 1955 PHYSICAL (COMPREHENSIVE) 1962 EXAM PERTUSSIS VACCINE 1966 TETANUS VACCINE 01/09/1972 CERVICAL CANCER SCREENING 1985 BREAST CANCER SCREENING 1995 COLORECTAL CANCER 2005 SCREENING SHINGLES VACCINE 2015 INFLUENZA VACCINE 05/18/2017 Results * CT ABD/PEL EXTERNAL IMAGING (09/29/2017) Narrative This order has been auto finalized and does not contain a result. from Last 3 Months
--- OUTSIDE RECORDS SUMMARY | 2017-12-12 10:32 | XMS REPORT | Encounter Summary ---
Author Author [facility] Organization [facility] Address Unknown Phone Unavailable Care Team Providers Care Indigo Mixer Name Role Phone Александр Rincon APRN PCP Reason for Visit * Reason Comments Heme/Onc Care * Consult, Test & Treat (Routine) Status Reason Specialty Diagnoses / Referred By Referred To Procedures Contact Contact New Request Urology / Oncology Diagnoses Lamberto Monsalve MD Bilateral renal [address] [place] [address] Referring: [facility] Ins: [id number] Medicaid Phone: Provider: Vinicius [phone] P alyce MOISE-NEW PATIENT Encounter Details Date Type Department Care Team Description 11/15/2017 Office Visit [facility] Lamberto Monsalve MD Left renal mass [facility] Exam [address] [place] [address] [place] [address] [phone] Social History Tobacco Use Types Packs/Day Years Used Date Never Assessed Sex Assigned at Date Recorded Not on file as of this encounter Last Filed Vital Signs Vital Sign Reading Time Taken Blood Pressure 176/81 11/15/2017 1:35 PM ROLLER ENGRAVER Pulse 62 11/15/2017 1:35 PM ROLLER ENGRAVER Temperature 36.5 C (97.7 F) 11/15/2017 1:35 PM ROLLER ENGRAVER Respiratory Rate 16 11/15/2017 1:35 PM ROLLER ENGRAVER Oxygen Saturation 100% 11/15/2017 1:35 PM ROLLER ENGRAVER Inhaled Oxygen - - Concentration Weight 98.5 kg (217 lb 3.2 oz) 11/15/2017 1:35 PM ROLLER ENGRAVER Height 172.7 cm (5' 8") 11/15/2017 1:35 PM ROLLER ENGRAVER Body Mass Index 33.03 11/15/2017 1:35 PM ROLLER ENGRAVER in this encounter Progress Notes * Lamberto Monsalve MD - 11/15/2017 2:00 PM ROLLER ENGRAVER Formatting of this note may be different from the original. Date of Service: 11/15/2017 Subjective: Amy Jeffrey is a 62 y.o. female. History of Present Illness 62 yo F with history significant for type II DM on metformin, GERD, CAD s/p 2x VT on Aspirin (previously Plavix), nephrolithiasis, presenting for evaluation of left sided renal mass concerning for renal cell carcinoma. Patient initially presented to her primary care physician in 2014 with complaints of left-sided flank pain. She underwent CT non-con demonstrating concern for solid -appearing or cystic mass in the right kidney. She underwent a follow-up renal ultrasound demonstrating 2-3 cysts in the right kidney, as well as questionable lesion in the medial aspect of the anterior portion of the left kidney. She underwent CT abdomen pelvis with contrast April 2015 revealing 2.4 cm upper pole right sided simple cyst as well as 1.5 cm anterior left renal lesion concerning for solid lesion. Eventually the patient underwent a PET scan in 2014 which was negative. MRI of the abdomen with and without contrast May 2015 revealing 1.2 cm left renal lesion without contrast enhancement suggestive of cyst at that time. The patient's right sided flank pain returned and she underwent repeat MRI of her abdomen September 2017 revealing enhancing 2.5 cm left upper pole anterior lesion concerning for renal cell carcinoma. Patient with smoking history 40 pack years, of note she also has been diagnosed with latent tuberculosis and has undergone medical treatment for this. She denies family history of malignancies she denies personal history of gross hematuria or significant urinary complaints. She has been diagnosed with degenerative disc disease and spondylolisthesis of her cervical spine thought likely etiologies of her continued right flank/back pain. Recent creatinine 08/2017=0.66. Review of Systems Constitutional: Negative for activity change, appetite change, chills, fatigue and fever. HENT: Negative for hearing loss, rhinorrhea, sinus pressure and sore throat. Eyes: Negative for photophobia and visual disturbance. Respiratory: Positive for cough. Negative for apnea, chest tightness and shortness of breath. Cardiovascular: Negative for chest pain and leg swelling. Gastrointestinal: Negative for abdominal distention, abdominal pain, constipation, diarrhea, nausea and vomiting. Endocrine: Negative for cold intolerance and heat intolerance. Genitourinary: Positive for flank pain. Negative for difficulty urinating, dysuria, frequency, hematuria and urgency. Musculoskeletal: Negative for arthralgias and myalgias. Skin: Negative for rash. Neurological: Negative for dizziness, tremors, syncope, speech difficulty, light -headedness and numbness. Hematological: Negative for adenopathy. Psychiatric/Behavioral: Negative for behavioral problems, confusion, decreased concentration and dysphoric mood. The patient is not nervous/anxious. No past medical history on file. No past surgical history on file. No family history on file. No current outpatient prescriptions on file. No current facility-administered medications for this visit. Allergies not on file Social History Social History Marital status: Spouse name: N/A Number of children: N/A Years of education: N/A Occupational History Not on file. Social History Main Topics Smoking status: Not on file Smokeless tobacco: Not on file Alcohol use Not on file Drug use: Unknown Sexual activity: Not on file Other Topics Concern Not on file Social History Narrative No narrative on file Objective: Vitals: 11/15/17 1335 BP: 176/81 Pulse: 62 Resp: 16 Temp: 36.5 C (97.7 F) TempSrc: Oral SpO2: 100% Weight: 98.5 kg (217 lb 3.2 oz) Height: 172.7 cm (68") Body mass index is 33.03 kg/m. Physical Exam Constitutional: She is oriented to person, place, and time. She appears well- developed and well-nourished. HENT: Head: Normocephalic and atraumatic. Eyes: Conjunctivae and EOM are normal. Neck: Normal range of motion. Neck supple. Cardiovascular: Normal rate and regular rhythm. Pulmonary/Chest: Effort normal and breath sounds normal. Abdominal: Soft. Mild R sided flank pain to palpation Musculoskeletal: Normal range of motion. Neurological: She is alert and oriented to person, place, and time. Skin: Skin is warm and dry. Psychiatric: She has a normal mood and affect. Her behavior is normal. Judgment and thought content normal. Assessment and Plan: Problem Left Renal Mass 12/11/17 MRI abdomen with and without contrast: Impression: [...] eliology. 08/28/17 Lab: Creatinine: 0.66 GFR: >60 Left renal mass Mrs Jeffrey is a very pleasant 62 [...] biopsy, biopsy of the mass and subsequent decision , ablative therapy with cryotherapy, RFA, or microwave, partial nephrectomy ( robotic, laparoscopic, open), and radical nephrectomy. Examination of [...] she will call after discussion with IR Abe Knott MD Urology PGY 2 I have examined the patient's past medical, surgical, family, and social history as well as current medications and allergies. Patient examined and plan of care discussed with Dr. Monsalve ATTESTATION I personally performed the antonio portions of the E/M visit, discussed case with resident and concur with resident documentation of history, physical exam, assessment, and treatment plan unless otherwise noted. Staff name: Lamberto Monaslve MD Date: 11/15/2017 in this encounter Miscellaneous Notes * Assessment & Plan Note - Abe Knott MD - 11/15/2017 2:56 PM ROLLER ENGRAVER Associated Problem(s): Left renal mass Mrs Jeffrey is a very pleasant 62 [...] biopsy, biopsy of the mass and subsequent decision , ablative therapy with cryotherapy, RFA, or microwave, partial nephrectomy ( robotic, laparoscopic, open), and radical nephrectomy. Examination of [...] she will call after discussion with IR in this encounter Plan of Treatment Not on fileas of this encounter Visit Diagnoses Diagnosis Left renal mass Unspecified disorder of kidney and ureter
--- OUTSIDE RECORDS SUMMARY | 2017-12-12 10:32 | XMS REPORT | Encounter Summary ---
Author Author [facility] Organization [facility] Address Unknown Phone Unavailable Care Team Providers Care Accident Report Clerk Name Role Phone Александр Rincon APRN PCP Reason for Visit * Reason Comments Appointment Request Encounter Details Date Type Department Care Team Description 12/02/2017 Telephone [facility] Lamberto Monsalve MD Appointment Request [facility] - [facility] Exam [address] [place] [address] [place] [address] [phone] Social History Tobacco Use Types Packs/Day Years Used Date Never Assessed Sex Assigned at Date Recorded Not on file as of this encounter Miscellaneous Notes * Telephone Encounter - Francisca Huhges RN - 12/02/2017 1:11 PM SECONDARY ENGLISH TEACHER Pt called to report that she had received schedule for Dr. Monsalve's return visit in the mail for May. She is concerned that it did not show a CT appt. Returned her call to remind her that she requested CT be done in [facility] instead of . Therefore, this appt would not be on her schedule. Informed her that request had been faxed to [facility] radiology and a fixing machine operator would be calling her with an appt. Confirmed this with radiology dept as well. Pt verbalized understanding. in this encounter Plan of Treatment Not on fileas of this encounter Visit Diagnoses Not on filein this encounter
--- OUTSIDE RECORDS SUMMARY | 2017-12-12 10:33 | XMS REPORT | Continuity of Care Document ---
Demographics x Preferred Language Unknown Marital Status Unknown Holiness Affiliation Unknown Race Unknown Ethnic Group Unknown Author Author [facility] Organization [facility] Address Unknown Phone Unavailable Allergies Active Description Code Type Severity Reaction Onset Reported/Identified Relationship to Patient Clinical Status Yes doxycycline 2748 Drug Allergy N /A N/A Yes Feldene 57419 Drug Allergy N/A N/A Yes hydrocodone 1554 Drug Allergy N /A N/A Yes doxycycline [id number] Drug Allergy Unknown N/A 08/16/2017 Yes hydrocodone [id number] Drug Allergy Unknown N/A 08/16/2017 Yes piroxicam [id number] Drug Allergy Unknown N/A 08/16/2017 Yes ketorolac [id number] Drug Allergy Moderate N/A 08/27/2017 Medications There is no data. Problems Date Dx Coded Attending Type Code Diagnosis Diagnosed By 06/17/2010 Ot 250.00 06/17/2010 Ot 278.00 06/17/2010 Ot 402.91 06/17/2010 Ot 412 06/17/2010 Ot 413.9 06/17/2010 Ot 414.01 06/17/2010 Ot 428.30 06/17/2010 Ot 530.81 06/17/2010 Ot 715.90 06/17/2010 Ot V58.63 06/17/2010 Ot V58.66 06/17/2010 Ot V58.69 06/17/2010 Ot V85.33 03/03/2011 Ot 250.00 03/03/2011 Ot 621.0 03/03/2011 Ot V58.69 05/22/2015 WESTON ALCANTAR MD Ot 789.00 05/22/2015 WESTON ALCANTAR MD Ot 793.11 05/27/2015 Ot 272.4 05/27/2015 Ot 401.9 05/27/2015 Ot 413.9 05/27/2015 Ot 414.01 05/27/2015 Ot 786.05 05/27/2015 Ot V58.63 05/27/2015 Ot V58.66 05/27/2015 Ot V58.69 05/27/2015 Ot V72.63 05/27/2015 Ot 401.9 05/27/2015 Ot 412 05/27/2015 Ot 793.5 05/27/2015 Ot V72.63 05/27/2015 Ot V72.81 05/27/2015 Ot V74.8 05/27/2015 Ot 785.0 05/27/2015 Ot 272.4 05/27/2015 Ot 401.9 05/27/2015 Ot 785.0 05/27/2015 Ot V58.69 05/27/2015 Ot 275.2 05/27/2015 Ot 401.9 05/27/2015 Ot 275.2 05/27/2015 Ot 275.2 05/27/2015 Ot 250.00 05/27/2015 Ot 272.4 05/27/2015 Ot V58.69 05/27/2015 LINDEN MOISE FACTabby, DASIA FACP CCDS Ot 272.4 05/27/2015 WESTON ALCANTAR MD Ot 789.00 05/27/2015 WESTON ALCANTAR MD Ot 793.11 05/28/2015 WESTON ALCANTAR MD Ot 593.9 06/05/2015 WESTON ALCANTAR MD Ot 789.00 06/05/2015 WESTON ALCANTAR MD Ot 793.11 06/13/2015 WESTON ALCANTRA MD Ot 593.9 04/27/2017 Ot 250.00 DIAB LUCIA WO COMPL, TYPE II OR UNSPEC TY 04/27/2017 Ot 272.4 HYPERLIPIDEMIA NEC/NOS 04/27/2017 Ot V58.69 OTH MED,LT, CURRENT USE 04/27/2017 LINDEN MOISE FACC, ALI FACP CCDS Ot 272.4 HYPERLIPIDEMIA NEC/NOS 04/27/2017 WESTON ALCANTAR MD Ot 789.00 ABDOMINAL PAIN, UNSPECIFIED SITE 04/27/2017 WESTON ALCANTAR MD Ot 793.11 SOLITARY PULMONARY NODULE 04/27/2017 WESTON ALCANTAR MD Ot 593.9 RENAL URETERAL DIS NOS 04/29/2017 Ot 250.00 DIAB LUCIA WO COMPL, TYPE II OR UNSPEC TY 04/29/2017 Ot 272.4 HYPERLIPIDEMIA NEC/NOS 04/29/2017 Ot V58.69 OTH MED,LT, CURRENT USE 04/29/2017 LINDEN MOISE FACC, ALI FACP CCDS Ot 272.4 HYPERLIPIDEMIA NEC/NOS 04/29/2017 WESTON ALCANTAR MD Ot 789.00 ABDOMINAL PAIN, UNSPECIFIED SITE 04/29/2017 WESTON ALCANTAR MD Ot 793.11 SOLITARY PULMONARY NODULE 04/29/2017 WESTON ALCANTAR MD Ot 593.9 RENAL URETERAL DIS NOS 05/03/2017 Ot 250.00 DIAB LUCIA WO COMPL, TYPE II OR UNSPEC TY 05/03/2017 Ot 272.4 HYPERLIPIDEMIA NEC/NOS 05/03/2017 Ot V58.69 OTH MED,LT, CURRENT USE 05/03/2017 LINDEN MOISE FACC, ALI FACP CCDS Ot 272.4 HYPERLIPIDEMIA NEC/NOS 05/03/2017 WESTON ALCANTAR MD Ot 789.00 ABDOMINAL PAIN, UNSPECIFIED SITE 05/03/2017 WESTON ALCANTAR MD Ot 793.11 SOLITARY PULMONARY NODULE 05/03/2017 WESTON ALCANTAR MD Ot 593.9 RENAL URETERAL DIS NOS 05/03/2017 BAIMA, FOREIGN L NATIONAL SALES CONSULTANT Ot E11.9 TYPE 2 DIABETES MELLITUS WITHOUT COMPLIC 05/03/2017 BAIMA, FOREIGN L NATIONAL SALES CONSULTANT Ot E78.4 OTHER HYPERLIPIDEMIA 05/03/2017 BAIMA, FOREIGN L NATIONAL SALES CONSULTANT Ot I10 ESSENTIAL (PRIMARY) HYPERTENSION 05/03/2017 BAIMA, FOREIGN L NATIONAL SALES CONSULTANT Ot I25.10 ATHSCL HEART DISEASE OF [place] CORONARY 05/03/2017 BAIMA, FOREIGN L NATIONAL SALES CONSULTANT Ot I65.23 OCCLUSION AND STENOSIS OF BILATERAL [place] 05/03/2017 BAIMA, FOREIGN L NATIONAL SALES CONSULTANT Ot R07.89 OTHER CHEST PAIN 05/13/2017 Ot 250.00 DIAB LUCIA WO COMPL, TYPE II OR UNSPEC TY 05/13/2017 Ot 272.4 HYPERLIPIDEMIA NEC/NOS 05/13/2017 Ot V58.69 OTH MED,LT, CURRENT USE 05/13/2017 LINDEN MOISE FACC, ALI FACP CCDS Ot 272.4 HYPERLIPIDEMIA NEC/NOS 05/13/2017 WESTON ALCANTAR MD Ot 789.00 ABDOMINAL PAIN, UNSPECIFIED SITE 05/13/2017 WESTON ALCANTAR MD Ot 793.11 SOLITARY PULMONARY NODULE 05/13/2017 WESTON ALCANTAR MD Ot 593.9 RENAL URETERAL DIS NOS 05/13/2017 MARGUERITE WAITE MD Ot Z01.818 ENCOUNTER FOR OTHER PREPROCEDURAL EXAMIN 05/13/2017 MARGUERITE WAITE MD Ot Z12.11 ENCOUNTER FOR SCREENING FOR MALIGNANT NE 05/13/2017 MARGUERITE WAITE MD, Ot Z86.010 PERSONAL HISTORY OF COLONIC POLYPS 05/13/2017 MARGUERITE WAITE MD, Ot Z87.11 PERSONAL HISTORY OF PEPTIC ULCER DISEASE 05/13/2017 MOHINIFOREIGN PAZ Prince NATIONAL SALES CONSULTANT Ot E11.9 TYPE 2 DIABETES MELLITUS WITHOUT COMPLIC 05/13/2017 MOHINIBRANDI FOREIGN Prince NATIONAL SALES CONSULTANT Ot E78.4 OTHER HYPERLIPIDEMIA 05/13/2017 MOHINIBRANDIFOREIGN L NATIONAL SALES CONSULTANT Ot I10 ESSENTIAL (PRIMARY) HYPERTENSION 05/13/2017 MOHINIBRANDI FOREIGN L NATIONAL SALES CONSULTANT Ot I25.10 ATHSCL HEART DISEASE OF [place] CORONARY 05/13/2017 AUNG FOREIGN Morrison NATIONAL SALES CONSULTANT Ot I65.23 OCCLUSION AND STENOSIS OF BILATERAL [place] 05/13/2017 AUNG FOREIGN Prince NATIONAL SALES CONSULTANT Ot R07.89 OTHER CHEST PAIN 05/18/2017 LINDEN MOISE FACC, DASIA FACP CCDS Ot E11.9 TYPE 2 DIABETES MELLITUS WITHOUT COMPLIC 05/18/2017 LINDEN MOISE FACC, ALI FACP CCDS Ot E66.9 OBESITY, UNSPECIFIED 05/18/2017 LINDEN MOISE FACC, ALI FACP CCDS Ot I11.9 HYPERTENSIVE HEART DISEASE WITHOUT HEART 05/18/2017 LINDEN MOISE FACC, ALI FACP CCDS Ot I25.10 ATHSCL HEART DISEASE OF [place] CORONARY 05/18/2017 LINDEN MOISE FACC, ALI FACP CCDS Ot K21.9 GASTRO-ESOPHAGEAL REFLUX DISEASE WITHOUT 05/18/2017 LINDEN MOISE FACC, ALI FACP CCDS Ot R00.0 TACHYCARDIA, UNSPECIFIED 05/18/2017 LINDEN MOISE FACC, ALI FACP CCDS Ot R07.89 OTHER CHEST PAIN 05/18/2017 LINDEN MOISE FACC, ALI FACP CCDS Ot R94.39 ABNORMAL RESULT OF OTHER CARDIOVASCULAR 05/18/2017 LINDEN MOISE FACC, ALI FACP CCDS Ot Z68.33 BODY MASS INDEX (BMI) 33.0-33.9, ADULT 05/18/2017 LINDEN MOISE FACC ALI FACP CCDS Ot Z79.84 SKILLED NURSING (CURRENT) USE OF ORAL HYPOGLYC 05/18/2017 LINDEN MOISE FACC, ALI FACP CCDS Ot Z79.899 OTHER MORTISING MACHINE OPERATOR (CURRENT) DRUG THERAPY 05/25/2017 FOREIGN HORAN NATIONAL SALES CONSULTANT Ot E11.9 TYPE 2 DIABETES MELLITUS WITHOUT COMPLIC 05/25/2017 FOREIGN HORAN NATIONAL SALES CONSULTANT Ot E78.4 OTHER HYPERLIPIDEMIA 05/25/2017 FOREIGN HORAN NATIONAL SALES CONSULTANT Ot I10 ESSENTIAL (PRIMARY) HYPERTENSION 05/25/2017 FOREIGN HORAN NATIONAL SALES CONSULTANT Ot I25.10 ATHSCL HEART DISEASE OF [place] CORONARY 05/25/2017 FOREIGN HORAN NATIONAL SALES CONSULTANT Ot I65.23 OCCLUSION AND STENOSIS OF BILATERAL [place] 05/25/2017 FOREIGN HORAN NATIONAL SALES CONSULTANT Ot R07.89 OTHER CHEST PAIN 05/25/2017 FOREIGN HORAN NATIONAL SALES CONSULTANT Ot E11.9 TYPE 2 DIABETES MELLITUS WITHOUT COMPLIC 05/28/2017 LINDEN MOISE FACC, ALI FACP CCDS Ot E11.9 TYPE 2 DIABETES MELLITUS WITHOUT COMPLIC 05/28/2017 LINDEN MOISE FACC, ALI FACP CCDS Ot E66.9 OBESITY, UNSPECIFIED 05/28/2017 LINDEN MOISE FACC, ALI FACP CCDS Ot I11.9 HYPERTENSIVE HEART DISEASE WITHOUT HEART 05/28/2017 LINDEN MOISE FACC, ALI FACP CCDS Ot I25.10 ATHSCL HEART DISEASE OF [place] CORONARY 05/28/2017 LINDEN MOISE FACC, ALI FACP CCDS Ot K21.9 GASTRO-ESOPHAGEAL REFLUX DISEASE WITHOUT 05/28/2017 LINDEN MOISE FACC, ALI FACP CCDS Ot R00.0 TACHYCARDIA, UNSPECIFIED 05/28/2017 LINDEN LUOC, ALI FACP CCDS Ot R07.89 OTHER CHEST PAIN 05/28/2017 LINDEN MOISE FACC, ALI FACP CCDS Ot R94.39 ABNORMAL RESULT OF OTHER CARDIOVASCULAR 05/28/2017 LINDEN MOISE FACC, ALI FACP CCDS Ot Z68.33 BODY MASS INDEX (BMI) 33.0-33.9, ADULT 05/28/2017 LINDEN MOISE FACC, ALI FACP CCDS Ot Z79.84 MORTISING MACHINE OPERATOR (CURRENT) USE OF ORAL HYPOGLYC 05/28/2017 LINDEN MOISE FACC, ALI FACP CCDS Ot Z79.899 OTHER MORTISING MACHINE OPERATOR (CURRENT) DRUG THERAPY 08/16/2017 MARGUERITE WAITE MD Ot Z01.818 ENCOUNTER FOR OTHER PREPROCEDURAL EXAMIN 08/16/2017 MARGUERITE WAITE MD Ot Z86.010 PERSONAL HISTORY OF COLONIC POLYPS 08/16/2017 MARGUERITE WAITE MD, Ot Z87.11 PERSONAL HISTORY OF PEPTIC ULCER DISEASE 08/18/2017 MARGUERITE WAITE MD Ot E11.9 TYPE 2 DIABETES MELLITUS WITHOUT COMPLIC 08/18/2017 MARGUERITE WAITE MD Ot I10 ESSENTIAL (PRIMARY) HYPERTENSION 08/18/2017 MARGUERITE WAITE MD, Ot I25.2 OLD MYOCARDIAL INFARCTION 08/18/2017 MARGUERITE WAITE MD, Ot K21.0 GASTRO-ESOPHAGEAL REFLUX DISEASE WITH ES 08/18/2017 MARGUERITE WAITE MD, Ot K29.70 GASTRITIS, UNSPECIFIED, WITHOUT BLEEDING 08/18/2017 MARGUERITE WAITE MD, Ot K62.1 RECTAL POLYP 08/18/2017 MARGUERITE WAITE MD, Ot K64.1 SECOND DEGREE HEMORRHOIDS 08/18/2017 MARGUERITE WAITE MD, Ot Z12.11 ENCOUNTER FOR SCREENING FOR MALIGNANT NE 08/18/2017 MARGUERITE WAITE MD, Ot Z87.442 PERSONAL HISTORY OF URINARY CALCULI 08/27/2017 Ot 250.00 DIAB LUCIA WO COMPL, TYPE II OR UNSPEC TY 08/27/2017 Ot 272.4 HYPERLIPIDEMIA NEC/NOS 08/27/2017 Ot V58.69 OTH MED,LT, CURRENT USE 08/27/2017 LINDEN MOISE FACC, DASIA CHACON CCDS Ot 272.4 HYPERLIPIDEMIA NEC/NOS 08/27/2017 WESTON ALCANTAR MD Ot 789.00 ABDOMINAL PAIN, UNSPECIFIED SITE 08/27/2017 WESTON ALCANTAR MD Ot 793.11 SOLITARY PULMONARY NODULE 08/27/2017 WESTON ALCANTAR MD Ot 593.9 RENAL URETERAL DIS NOS 08/27/2017 MARGUERITE WAITE MD, Ot Z01.818 ENCOUNTER FOR OTHER PREPROCEDURAL EXAMIN 08/27/2017 MARGUERITE WAITE MD, Ot Z12.11 ENCOUNTER FOR SCREENING FOR MALIGNANT NE 08/27/2017 MARGUERITE WAITE MD, Ot Z86.010 PERSONAL HISTORY OF COLONIC POLYPS 08/27/2017 MARGUERITE WAITE MD, Ot Z87.11 PERSONAL HISTORY OF PEPTIC ULCER DISEASE 08/27/2017 FOREIGN HORAN Ot E11.9 TYPE 2 DIABETES MELLITUS WITHOUT COMPLIC 08/27/2017 FOREIGN HORANP Ot E78.4 OTHER HYPERLIPIDEMIA 08/27/2017 AUNGFOREIGN NATIONAL SALES CONSULTANT Ot I10 ESSENTIAL (PRIMARY) HYPERTENSION 08/27/2017 MOHINIFOREIGN PAZ NATIONAL SALES CONSULTANT Ot I25.10 ATHSCL HEART DISEASE OF [place] CORONARY 08/27/2017 FOREIGN HORAN NATIONAL SALES CONSULTANT Ot I65.23 OCCLUSION AND STENOSIS OF BILATERAL [place] 08/27/2017 AUNG FOREIGN Morrison NATIONAL SALES CONSULTANT Ot R07.89 OTHER CHEST PAIN 08/27/2017 AUNG FOREIGN Prince GONZALEZ Ot E11.9 TYPE 2 DIABETES MELLITUS WITHOUT COMPLIC 08/27/2017 RICHIE BENTLEY MD, Ot E11.9 TYPE 2 DIABETES MELLITUS WITHOUT COMPLIC 08/27/2017 RICHIE BENTLEY MD Ot F32.9 MAJOR DEPRESSIVE DISORDER, SINGLE EPISOD 08/27/2017 RICHIE BENTLEY MD, Ot F41.9 ANXIETY DISORDER, UNSPECIFIED 08/27/2017 RICHIE BENTLEY MD Ot I25.2 OLD MYOCARDIAL INFARCTION 08/27/2017 RICHIE BENTLEY MD, Ot K21.9 GASTRO-ESOPHAGEAL REFLUX DISEASE WITHOUT 08/27/2017 RICHIE BENTLEY MD, Ot M19.90 UNSPECIFIED OSTEOARTHRITIS, UNSPECIFIED 08/27/2017 RICHIE BENTLEY MD Ot R10.13 EPIGASTRIC PAIN 08/27/2017 RICHIE BENTLEY MD, Ot R10.9 UNSPECIFIED ABDOMINAL PAIN 08/27/2017 RICHIE BENTLEY MD Ot Z79.82 MORTISING MACHINE OPERATOR (CURRENT) USE OF ASPIRIN 08/27/2017 RICHIE BENTLEY MD Ot Z87.19 PERSONAL HISTORY OF OTHER DISEASES OF TH 08/27/2017 RICHIE BENTLEY MD, Ot Z87.442 PERSONAL HISTORY OF URINARY CALCULI 08/27/2017 RICHIE BENTLEY MD Ot Z87.59 PERSONAL HISTORY OF COMP OF PREG, CHLDBR 08/27/2017 RICHIE BENTLEY MD, Ot Z87.891 PERSONAL HISTORY OF NICOTINE DEPENDENCE 08/27/2017 RICHIE BENTLEY MD, Ot Z90.721 ACQUIRED ABSENCE OF OVARIES, UNILATERAL 08/27/2017 RICHIE BENTLEY MD Ot Z95.5 PRESENCE OF CORONARY ANGIOPLASTY IMPLANT 08/27/2017 RICHIE BENTLEY MD Ot Z98.51 TUBAL LIGATION STATUS 08/28/2017 KADIE EDWARDS MD Ot E11.9 TYPE 2 DIABETES MELLITUS WITHOUT COMPLIC 08/28/2017 KADIE EDWARDS MD, Ot E78.00 PURE HYPERCHOLESTEROLEMIA, UNSPECIFIED 08/28/2017 KADIE EDWARDS MD, Ot F32.9 MAJOR DEPRESSIVE DISORDER, SINGLE EPISOD 08/28/2017 KADIE EDWARDS MD, Ot F41.9 ANXIETY DISORDER, UNSPECIFIED 08/28/2017 KADIE EDWARDS MD, Ot I25.2 OLD MYOCARDIAL INFARCTION 08/28/2017 KADIE EDWARDS MD, Ot M19.90 UNSPECIFIED OSTEOARTHRITIS, UNSPECIFIED 08/28/2017 KADIE EDWARDS MD, Ot N28.1 CYST OF KIDNEY, ACQUIRED 08/28/2017 KADIE EDWARDS MD, Ot R42 DIZZINESS AND GIDDINESS 08/28/2017 KADIE EDWARDS MD, Ot Z79.82 SKILLED NURSING (CURRENT) USE OF ASPIRIN 08/28/2017 KADIE EDWARDS MD, Ot Z87.442 PERSONAL HISTORY OF URINARY CALCULI 08/28/2017 KADIE EDWARDS MD, Ot Z87.59 PERSONAL HISTORY OF COMP OF PREG, CHLDBR 08/28/2017 KADIE EDWARDS MD, Ot Z87.891 PERSONAL HISTORY OF NICOTINE DEPENDENCE 08/28/2017 KADIE EDWARDS MD, Ot Z90.721 ACQUIRED ABSENCE OF OVARIES, UNILATERAL 08/28/2017 KADIE EDWARDS MD, Ot Z95.5 PRESENCE OF CORONARY ANGIOPLASTY IMPLANT 08/28/2017 KADIE EDWARDS MD, Ot Z98.51 TUBAL LIGATION STATUS 08/29/2017 MARGUERITE WAITE MD, Ot E11.9 TYPE 2 DIABETES MELLITUS WITHOUT COMPLIC 08/29/2017 MARGUERITE WAITE MD, Ot I10 ESSENTIAL (PRIMARY) HYPERTENSION 08/29/2017 MARGUERITE WAITE MD, Ot I25.2 OLD MYOCARDIAL INFARCTION 08/29/2017 MARGUERITE WAITE MD, Ot K21.0 GASTRO-ESOPHAGEAL REFLUX DISEASE WITH ES 08/29/2017 MARGUERITE WAITE MD, Ot K29.70 GASTRITIS, UNSPECIFIED, WITHOUT BLEEDING 08/29/2017 MARGUERITE WAITE MD, Ot K62.1 RECTAL POLYP 08/29/2017 MARGUERITE WAITE MD, Ot K64.1 SECOND DEGREE HEMORRHOIDS 08/29/2017 KIDO MD, TAKAAKI Ot Z12.11 ENCOUNTER FOR SCREENING FOR MALIGNANT NE 08/29/2017 MARGUERITE WAITE MD Ot Z87.442 PERSONAL HISTORY OF URINARY CALCULI 09/03/2017 RICHIE BENTLEY MD Ot E11.9 TYPE 2 DIABETES MELLITUS WITHOUT COMPLIC 09/03/2017 RICHIE BENTLEY MD, Ot F32.9 MAJOR DEPRESSIVE DISORDER, SINGLE EPISOD 09/03/2017 RICHIE BENTLEY MD, Ot F41.9 ANXIETY DISORDER, UNSPECIFIED 09/03/2017 RICHIE BENTLEY MD, Ot I25.2 OLD MYOCARDIAL INFARCTION 09/03/2017 RICHIE BENTLEY MD, Ot K21.9 GASTRO-ESOPHAGEAL REFLUX DISEASE WITHOUT 09/03/2017 RICHIE BENTLEY MD, Ot M19.90 UNSPECIFIED OSTEOARTHRITIS, UNSPECIFIED 09/03/2017 RICHIE BENTLEY MD, Ot R10.13 EPIGASTRIC PAIN 09/03/2017 RICHIE BENTLEY MD, Ot R10.9 UNSPECIFIED ABDOMINAL PAIN 09/03/2017 RICHIE BENTLEY MD, Ot Z79.82 SKILLED NURSING (CURRENT) USE OF ASPIRIN 09/03/2017 RICHIE BENTLEY MD, Ot Z87.19 PERSONAL HISTORY OF OTHER DISEASES OF TH 09/03/2017 RICHIE BENTLEY MD, Ot Z87.442 PERSONAL HISTORY OF URINARY CALCULI 09/03/2017 RICHIE BENTLEY MD, Ot Z87.59 PERSONAL HISTORY OF COMP OF PREG, CHLDBR 09/03/2017 RICHIE BENTLEY MD, Ot Z87.891 PERSONAL HISTORY OF NICOTINE DEPENDENCE 09/03/2017 RICHIE BENTLEY MD, Ot Z90.721 ACQUIRED ABSENCE OF OVARIES, UNILATERAL 09/03/2017 RICHIE BENTLEY MD Ot Z95.5 PRESENCE OF CORONARY ANGIOPLASTY IMPLANT 09/03/2017 RICHIE BENTLEY MD, Ot Z98.51 TUBAL LIGATION STATUS 09/29/2017 Ot 250.00 DIAB LUCIA WO COMPL, TYPE II OR UNSPEC TY 09/29/2017 Ot 272.4 HYPERLIPIDEMIA NEC/NOS 09/29/2017 Ot V58.69 OTH MED,LT, CURRENT USE 09/29/2017 LINDEN MOISE FACC, ALI FACP CCDS Ot 272.4 HYPERLIPIDEMIA NEC/NOS 09/29/2017 WESTON ALCANTAR MD Ot 789.00 ABDOMINAL PAIN, UNSPECIFIED SITE 09/29/2017 WESTON ALCANTAR MD Ot 793.11 SOLITARY PULMONARY NODULE 09/29/2017 WESTON ALCANTAR MD Ot 593.9 RENAL URETERAL DIS NOS 09/29/2017 MARGUERITE WAITE MD, Ot Z01.818 ENCOUNTER FOR OTHER PREPROCEDURAL EXAMIN 09/29/2017 MARGUERITE WAITE MD, Ot Z12.11 ENCOUNTER FOR SCREENING FOR MALIGNANT NE 09/29/2017 MARGUERITE WAITE MD, Ot Z86.010 PERSONAL HISTORY OF COLONIC POLYPS 09/29/2017 MARGUERITE WAITE MD, Ot Z87.11 PERSONAL HISTORY OF PEPTIC ULCER DISEASE 09/29/2017 AUNG FOREIGN L NATIONAL SALES CONSULTANT Ot E11.9 TYPE 2 DIABETES MELLITUS WITHOUT COMPLIC 09/29/2017 AUNG FOREIGN L NATIONAL SALES CONSULTANT Ot E78.4 OTHER HYPERLIPIDEMIA 09/29/2017 BAIMA FOREIGN L NATIONAL SALES CONSULTANT Ot I10 ESSENTIAL (PRIMARY) HYPERTENSION 09/29/2017 BAIBRANDI FOREIGN L NATIONAL SALES CONSULTANT Ot I25.10 ATHSCL HEART DISEASE OF [place] CORONARY 09/29/2017 BAIMA FOREIGN L NATIONAL SALES CONSULTANT Ot I65.23 OCCLUSION AND STENOSIS OF BILATERAL [place] 09/29/2017 BAIMA FOREIGN L NATIONAL SALES CONSULTANT Ot R07.89 OTHER CHEST PAIN 09/29/2017 BAIMA, FOREIGN L NATIONAL SALES CONSULTANT Ot E11.9 TYPE 2 DIABETES MELLITUS WITHOUT COMPLIC 09/29/2017 PRISCILLA BLANCAS R LITHOGRAPH PRESS FEEDER Ot N28.89 OTHER SPECIFIED DISORDERS OF KIDNEY AND 09/29/2017 PRISCILLA BLANCAS R LITHOGRAPH PRESS FEEDER Ot N28.89 OTHER SPECIFIED DISORDERS OF KIDNEY AND 09/29/2017 PRISCILLA BLANCAS R LITHOGRAPH PRESS FEEDER Ot R91.1 SOLITARY PULMONARY NODULE 10/05/2017 PRISCILLA BLANCAS R LITHOGRAPH PRESS FEEDER Ot N28.89 OTHER SPECIFIED DISORDERS OF KIDNEY AND 10/05/2017 PRISCILLA BLANCAS R LITHOGRAPH PRESS FEEDER Ot R91.1 SOLITARY PULMONARY NODULE 10/13/2017 PRISCILLA BLANCAS LITHOGRAPH PRESS FEEDER Ot N28.89 OTHER SPECIFIED DISORDERS OF KIDNEY AND 10/13/2017 PRISCILLA BLANCAS R LITHOGRAPH PRESS FEEDER Ot N28.1 CYST OF KIDNEY, ACQUIRED 10/13/2017 PRISCILLA BLANCAS R LITHOGRAPH PRESS FEEDER Ot N28.89 OTHER SPECIFIED DISORDERS OF KIDNEY AND 10/13/2017 PRISCILLA BLANCAS R LITHOGRAPH PRESS FEEDER Ot Z90.49 ACQUIRED ABSENCE OF OTHER SPECIFIED PART 11/16/2017 PRISCILLA BLANCAS LITHOGRAPH PRESS FEEDER Ot Z12.31 ENCNTR SCREEN MAMMOGRAM FOR MALIGNANT NE Procedures There is no data. Results Test Result Range Automated blood complete blood count (hemogram) panel - 05/18/17 07:32 Blood leukocytes automated count (number/volume) 6.9 10*3/uL 4.3-11.0 Blood erythrocytes automated count (number/volume) 4.59 10*6/uL 4.35-5.85 Venous blood hemoglobin measurement (mass/volume) 14.0 g/dL 11.5-16.0 Blood hematocrit (volume fraction) 43 % 35-52 Automated erythrocyte mean corpuscular volume 93 [foz_us] 80-99 Automated erythrocyte mean corpuscular hemoglobin (mass per erythrocyte) 31 pg 25-34 Automated erythrocyte mean corpuscular hemoglobin concentration measurement ( mass/volume) 33 g/dL 32-36 Automated erythrocyte distribution width ratio 13.5 % 10.0-14.5 Automated blood platelet count (count/volume) 154 10*3/uL 130-400 Automated blood platelet mean volume measurement 10.9 [foz_us] 7.4-10.4 Comprehensive metabolic panel - 05/18/17 07:32 Serum or plasma sodium measurement (moles/volume) 143 mmol/L 135-145 Serum or plasma potassium measurement (moles/volume) 3.9 mmol/L 3.6-5.0 Serum or plasma chloride measurement (moles/volume) 109 mmol/L 98-107 Carbon dioxide 26 mmol/L 21-32 Serum or plasma anion gap determination (moles/volume) 8 mmol/L 5-14 Serum or plasma urea nitrogen measurement (mass/volume) 18 mg/dL 7-18 Serum or plasma creatinine measurement (mass/volume) 0.72 mg/dL 0.60-1.30 Serum or plasma urea nitrogen/creatinine mass ratio 25 NRG Serum or plasma creatinine measurement with calculation of estimated glomerular filtration rate > NRG Serum or plasma glucose measurement (mass/volume) 114 mg/dL 70-105 Serum or plasma calcium measurement (mass/volume) 9.4 mg/dL 8.5-10.1 Serum or plasma total bilirubin measurement (mass/volume) 0.5 mg/dL 0.1-1.0 Serum or plasma alkaline phosphatase measurement (enzymatic activity/volume) 77 U/L 40-136 Serum or plasma aspartate aminotransferase measurement (enzymatic activity/ volume) 15 U/L 5-34 Serum or plasma alanine aminotransferase measurement (enzymatic activity/volume ) 13 U/L 0-55 Serum or plasma protein measurement (mass/volume) 6.9 g/dL 6.4-8.2 Serum or plasma albumin measurement (mass/volume) 3.8 g/dL 3.2-4.5 Lipid 1996 panel - 05/18/17 07:32 Serum or plasma triglyceride measurement (mass/volume) 79 mg/dL <150 Serum or plasma cholesterol measurement (mass/volume) 136 mg/dL < 200 Serum or plasma cholesterol in HDL measurement (mass/volume) 34 mg/ dL 40-60 Cholesterol in LDL [mass/volume] in serum or plasma by direct assay 92 mg/dL 1-129 Serum or plasma cholesterol in VLDL measurement (mass/volume) 16 mg/ dL 5-40 PT panel in platelet poor plasma by coagulation assay - 05/18/17 07:32 Prothrombin time (PT) in platelet poor plasma by coagulation assay 12.5 s 12.2-14.7 INR in platelet poor plasma or blood by coagulation assay 1.0 0.8-1.4 Activated partial thromboplastin time (aPTT) in platelet poor plasma bycoagulation assay - 05/18/17 07:32 Activated partial thromboplastin time (aPTT) in platelet poor plasma bycoagulation assay 30 s 24-35 Methicillin resistant Staphylococcus aureus (MRSA) screening culture - 07:32 MRSA SCREEN RESULT MRSA ISOLATED NRG Capillary blood glucose measurement by glucometer (mass/volume) - 08/18/17 12: 42 Capillary blood glucose measurement by glucometer (mass/volume) 112 mg/dL 70-110 Complete urinalysis with reflex to culture - 08/27/17 07:00 Urine color determination YELLOW NRG Urine clarity determination CLEAR NRG Urine pH measurement by test strip 7 5-9 Specific gravity of urine by test strip 1.010 1.016- 1.022 Urine protein assay by test strip, semi-quantitative NEGATIVE NEGATIVE Urine glucose detection by automated test strip NEGATIVE NEGATIVE Erythrocytes detection in urine sediment by light microscopy NEGATIVE NEGATIVE Urine ketones detection by automated test strip NEGATIVE NEGATIVE Urine nitrite detection by test strip NEGATIVE NEGATIVE Urine total bilirubin detection by test strip NEGATIVE NEGATIVE Urine urobilinogen measurement by automated test strip (mass/volume) NORMAL NORMAL Urine leukocyte esterase detection by dipstick NEGATIVE NEGATIVE Automated urine sediment erythrocyte count by microscopy (number/high power field) NONE NRG Automated urine sediment leukocyte count by microscopy (number/high power field ) RARE NRG Bacteria detection in urine sediment by light microscopy NEGATIVE NRG Squamous epithelial cells detection in urine sediment by light microscopy 5-10 NRG Crystals detection in urine sediment by light microscopy NONE NRG Casts detection in urine sediment by light microscopy NONE NRG Mucus detection in urine sediment by light microscopy NEGATIVE NRG Complete urinalysis with reflex to culture NO NRG Complete blood count (CBC) with automated white blood cell (WBC) differential - 08/27/17 07:25 Blood leukocytes automated count (number/volume) 10.4 10*3/uL 4.3-11.0 Blood erythrocytes automated count (number/volume) 4.76 10*6/uL 4.35-5.85 Venous blood hemoglobin measurement (mass/volume) 14.7 g/dL 11.5-16.0 Blood hematocrit (volume fraction) 44 % 35-52 Automated erythrocyte mean corpuscular volume 92 [foz_us] 80-99 Automated erythrocyte mean corpuscular hemoglobin (mass per erythrocyte) 31 pg 25-34 Automated erythrocyte mean corpuscular hemoglobin concentration measurement ( mass/volume) 34 g/dL 32-36 Automated erythrocyte distribution width ratio 12.7 % 10.0-14.5 Automated blood platelet count (count/volume) 167 10*3/uL 130-400 Automated blood platelet mean volume measurement 10.8 [foz_us] 7.4-10.4 Automated blood neutrophils/100 leukocytes 68 % 42-75 Automated blood lymphocytes/100 leukocytes 21 % 12-44 Blood monocytes/100 leukocytes 7 % 0-12 Automated blood eosinophils/100 leukocytes 3 % 0-10 Automated blood basophils/100 leukocytes 1 % 0-10 Blood neutrophils automated count (number/volume) 7.1 10*3 1.8-7.8 Blood lymphocytes automated count (number/volume) 2.1 10*3 1.0-4.0 Blood monocytes automated count (number/volume) 0.7 10*3 0.0-1.0 Automated eosinophil count 0.4 10*3/uL 0.0-0.3 Automated blood basophil count (count/volume) 0.1 10*3/uL 0.0-0.1 Comprehensive metabolic panel - 08/27/17 07:25 Serum or plasma sodium measurement (moles/volume) 140 mmol/L 135-145 Serum or plasma potassium measurement (moles/volume) 4.0 mmol/L 3.6-5.0 Serum or plasma chloride measurement (moles/volume) 106 mmol/L 98-107 Carbon dioxide 24 mmol/L 21-32 Serum or plasma anion gap determination (moles/volume) 10 mmol/L 5-14 Serum or plasma urea nitrogen measurement (mass/volume) 11 mg/dL 7-18 Serum or plasma creatinine measurement (mass/volume) 0.62 mg/dL 0.60-1.30 Serum or plasma urea nitrogen/creatinine mass ratio 18 NRG Serum or plasma creatinine measurement with calculation of estimated glomerular filtration rate > NRG Serum or plasma glucose measurement (mass/volume) 157 mg/dL 70-105 Serum or plasma calcium measurement (mass/volume) 9.5 mg/dL 8.5-10.1 Serum or plasma total bilirubin measurement (mass/volume) 0.7 mg/dL 0.1-1.0 Serum or plasma alkaline phosphatase measurement (enzymatic activity/volume) 108 U/L 40-136 Serum or plasma aspartate aminotransferase measurement (enzymatic activity/ volume) 13 U/L 5-34 Serum or plasma alanine aminotransferase measurement (enzymatic activity/volume ) 10 U/L 0-55 Serum or plasma protein measurement (mass/volume) 6.1 g/dL 6.4-8.2 Serum or plasma albumin measurement (mass/volume) 4.0 g/dL 3.2-4.5 Complete blood count (CBC) with automated white blood cell (WBC) differential - 08/28/17 12:40 Blood leukocytes automated count (number/volume) 8.5 10*3/uL 4.3-11.0 Blood erythrocytes automated count (number/volume) 4.64 10*6/uL 4.35-5.85 Venous blood hemoglobin measurement (mass/volume) 14.3 g/dL 11.5-16.0 Blood hematocrit (volume fraction) 43 % 35-52 Automated erythrocyte mean corpuscular volume 92 [foz_us] 80-99 Automated erythrocyte mean corpuscular hemoglobin (mass per erythrocyte) 31 pg 25-34 Automated erythrocyte mean corpuscular hemoglobin concentration measurement ( mass/volume) 34 g/dL 32-36 Automated erythrocyte distribution width ratio 12.7 % 10.0-14.5 Automated blood platelet count (count/volume) 161 10*3/uL 130-400 Automated blood platelet mean volume measurement 10.8 [foz_us] 7.4-10.4 Automated blood neutrophils/100 leukocytes 72 % 42-75 Automated blood lymphocytes/100 leukocytes 18 % 12-44 Blood monocytes/100 leukocytes 7 % 0-12 Automated blood eosinophils/100 leukocytes 3 % 0-10 Automated blood basophils/100 leukocytes 1 % 0-10 Blood neutrophils automated count (number/volume) 6.2 10*3 1.8-7.8 Blood lymphocytes automated count (number/volume) 1.5 10*3 1.0-4.0 Blood monocytes automated count (number/volume) 0.6 10*3 0.0-1.0 Automated eosinophil count 0.2 10*3/uL 0.0-0.3 Automated blood basophil count (count/volume) 0.0 10*3/uL 0.0-0.1 Complete urinalysis with reflex to culture - 08/28/17 12:40 Urine color determination YELLOW NRG Urine clarity determination CLEAR NRG Urine pH measurement by test strip 5 5-9 Specific gravity of urine by test strip 1.025 1.016- 1.022 Urine protein assay by test strip, semi-quantitative 1+ NEGATIVE Urine glucose detection by automated test strip NEGATIVE NEGATIVE Erythrocytes detection in urine sediment by light microscopy 1+ NEGATIVE Urine ketones detection by automated test strip NEGATIVE NEGATIVE Urine nitrite detection by test strip NEGATIVE NEGATIVE Urine total bilirubin detection by test strip 1+ NEGATIVE Urine urobilinogen measurement by automated test strip (mass/volume) 1 mg/dL NORMAL Urine leukocyte esterase detection by dipstick 1+ NEGATIVE Automated urine sediment erythrocyte count by microscopy (number/high power field) [HPF] NRG Automated urine sediment leukocyte count by microscopy (number/high power field ) [HPF] NRG Bacteria detection in urine sediment by light microscopy TRACE NRG Squamous epithelial cells detection in urine sediment by light microscopy 2-5 NRG Crystals detection in urine sediment by light microscopy NONE NRG Casts detection in urine sediment by light microscopy NONE NRG Mucus detection in urine sediment by light microscopy MODERATE NRG Complete urinalysis with reflex to culture NO NRG Comprehensive metabolic panel - 08/28/17 12:40 Serum or plasma sodium measurement (moles/volume) 141 mmol/L 135-145 Serum or plasma potassium measurement (moles/volume) 3.8 mmol/L 3.6-5.0 Serum or plasma chloride measurement (moles/volume) 105 mmol/L 98-107 Carbon dioxide 25 mmol/L 21-32 Serum or plasma anion gap determination (moles/volume) 11 mmol/L 5-14 Serum or plasma urea nitrogen measurement (mass/volume) 14 mg/dL 7-18 Serum or plasma creatinine measurement (mass/volume) 0.66 mg/dL 0.60-1.30 Serum or plasma urea nitrogen/creatinine mass ratio 21 NRG Serum or plasma creatinine measurement with calculation of estimated glomerular filtration rate > NRG Serum or plasma glucose measurement (mass/volume) 146 mg/dL 70-105 Serum or plasma calcium measurement (mass/volume) 9.4 mg/dL 8.5-10.1 Serum or plasma total bilirubin measurement (mass/volume) 0.6 mg/dL 0.1-1.0 Serum or plasma alkaline phosphatase measurement (enzymatic activity/volume) 100 U/L 40-136 Serum or plasma aspartate aminotransferase measurement (enzymatic activity/ volume) 14 U/L 5-34 Serum or plasma alanine aminotransferase measurement (enzymatic activity/volume ) 12 U/L 0-55 Serum or plasma protein measurement (mass/volume) 7.0 g/dL 6.4-8.2 Serum or plasma albumin measurement (mass/volume) 3.8 g/dL 3.2-4.5 Fibrin D-dimer FEU measurement in platelet poor plasma (mass/volume) - 12:40 Fibrin D-dimer FEU measurement in platelet poor plasma (mass/volume) 0.49 ug/mL 0.00-0.49 Serum or plasma C reactive protein measurement (mass/volume) - 08/28/17 12:40 Serum or plasma C reactive protein measurement (mass/volume) 0.78 mg /dL 0.00-0.50 Comprehensive metabolic panel - 09/24/17 08:21 Serum or plasma sodium measurement (moles/volume) 142 mmol/L 135-145 Serum or plasma potassium measurement (moles/volume) 3.9 mmol/L 3.6-5.0 Serum or plasma chloride measurement (moles/volume) 106 mmol/L 98-107 Carbon dioxide 27 mmol/L -32 Serum or plasma anion gap determination (moles/volume) 9 mmol/L 5-14 Serum or plasma urea nitrogen measurement (mass/volume) 15 mg/dL 7-18 Serum or plasma creatinine measurement (mass/volume) 0.64 mg/dL 0.60-1.30 Serum or plasma urea nitrogen/creatinine mass ratio 23 NRG Serum or plasma creatinine measurement with calculation of estimated glomerular filtration rate > NRG Serum or plasma glucose measurement (mass/volume) 136 mg/dL 70-105 Serum or plasma calcium measurement (mass/volume) 9.2 mg/dL 8.5-10.1 Serum or plasma total bilirubin measurement (mass/volume) 0.4 mg/dL 0.1-1.0 Serum or plasma alkaline phosphatase measurement (enzymatic activity/volume) 110 U/L 40-136 Serum or plasma aspartate aminotransferase measurement (enzymatic activity/ volume) 18 U/L 5-34 Serum or plasma alanine aminotransferase measurement (enzymatic activity/volume ) 13 U/L 0-55 Serum or plasma protein measurement (mass/volume) 7.3 g/dL 6.4-8.2 Serum or plasma albumin measurement (mass/volume) 3.8 g/dL 3.2-4.5 Encounters ACCT No. Visit Date/Time Discharge Status Pt. Type Provider Facility Loc./Unit Complaint [id number] 06/08/2014 07:15:00 06/08/2014 10:40:00 DIS Inpatient DAI CEDILLO [facility] OPS [id number] 11/23/2017 13:18:00 11/23/2017 23:59:59 CLS Preadbrandon WINTERS MD, TAMY Nuno [facility] RAD N28.89 LEFT RENAL MASS [id number] 11/03/2017 09:12:00 11/03/2017 23:59:59 CLS Outpatient PRISCILLA BLANCAS APRN [facility] RAD SCREENING [id number] 09/29/2017 08:35:00 09/29/2017 23:59:59 CLS Outpatient PRISCILLA BLANCAS APRN [facility] RAD RIGHT RENAL MASS N28.89 [id number] 09/27/2017 08:41:00 09/27/2017 23:59:59 CLS Outpatient PRISCILLA BLANCAS APRN [facility] RAD RT RENAL MASS [id number] 09/24/2017 08:07:00 09/24/2017 23:59:59 CLS Outpatient BLANCASPRISCILLA Luke [employer]ER [facility] RAD R91.1 PULMONARY NODULE [id number] 09/22/2017 14:17:00 09/22/2017 23:59:59 CLS Preadmit BLANCASPRISCILLA Luke L[employer]OGRAPH [employer] FEEDER [facility] REHAB NECK PAIN [id number] 09/03/2017 13:04:00 09/03/2017 23:59:59 CLS Preadmit YONNYPRISCILLA Luke [employer]ED[employer] [facility] RAD RETROLISTHESIS OF VERTEBRE [id number] 08/28/2017 12:05:00 08/28/2017 15:17:00 DIS Emergency KADIE EDWARDS MD [facility] ER R SIDE PAIN, EXTREME DIZZINESS [id number] 08/27/2017 07:00:00 08/27/2017 09:46:00 DIS Emergency RICHIE BENTLEY MD [facility] ER RT SIDE PAIN [id number] 08/18/2017 12:03:00 08/18/2017 15:35:00 DIS Outpatient MARGUERITE WAITE MD [facility] ENDO HX ULCERS AND POLYPS [id number] 08/16/2017 05:55:00 08/16/2017 14:21:00 DIS Outpatient MARGUERITE WAITE MD [facility] PREOP COLO/EGD [id number] 07/14/2017 09:30:00 07/14/2017 23:59:59 CLS Preadmit MARGUERITE WAITE MD [facility] ENDO HISTORY OF ULCERS AND POLYPS [id number] 07/12/2017 08:30:00 07/12/2017 08:30:00 CAN Preadmit MARGUERITE WAITE MD [facility] PREOP EGD/COLONOSCOPY [id number] 05/18/2017 07:11:00 05/18/2017 14:25:00 DIS Outpatient LINDEN MOISE FACC, DASIA LUOP CCDS [facility] CATH CAD,SOB, FATIGUE [id number] 05/13/2017 14:16:00 05/13/2017 23:59:59 CLS Outpatient FOREIGN HORAN [facility] LAB E11.9 [id number] 05/05/2017 09:30:00 05/05/2017 23:59:59 CLS Preadmit MARGUERITE WAITE MD [facility] ENDO HISTORY ULCER/HISTORY POLYPS [id number] 05/03/2017 05:40:00 05/03/2017 23:59:59 CLS Outpatient MARGUERITE WAITE MD [facility] PREOP COLONOSCOPY, EGD [id number] 04/29/2017 07:08:00 04/29/2017 23:59:59 CLS Outpatient FOREIGN HORAN [facility] CARD CAD [id number] 05/27/2015 08:41:00 05/27/2015 23:59:59 CLS Outpatient WESTON ALCANTAR MD [facility] RAD RENAL MASS FOLLOWUP FROM PET [id number] 05/21/2015 07:48:00 05/21/2015 23:59:59 CLS Outpatient WESTON ALCANTAR MD [facility] RAD ABDOMINAL PAIN LESION ON KIDNEY [id number] 04/11/2013 10:56:00 04/11/2013 23:59:59 CLS Outpatient LINDEN MOISE FACCDASIA FACP CCDS [facility] LAB HYPERLIPADEMIA [id number] 12/15/2017 10:13:00 PEN Preadmit PRISCILLA BLANCAS APRN [facility] REHAB LUMBAGO WITH SCIATICA [id number] 05/27/2015 08:41:00 Document Registration [id number] 05/27/2015 08:41:00 Document Registration [id number] 05/02/2012 10:54:00 Document Registration [id number] 07/21/2011 12:18:00 Document Registration [id number] 06/18/2011 10:41:00 Document Registration [id number] 06/04/2011 10:33:00 Document Registration [id number] 06/02/2011 08:14:00 Document Registration [id number] 05/26/2011 11:00:00 Document Registration [id number] 03/03/2011 05:36:00 Document Registration [id number] 02/24/2011 08:35:00 Document Registration [id number] 06/17/2010 05:35:00 Document Registration
--- NOTE | 2017-12-12 12:42 | Diagnostic Imaging Report ---
INDICATION: Left knee pain after fall. COMPARISON: None available. TECHNIQUE: Three non-weightbearing views of the left knee were obtained. FINDINGS: No acute fracture or lipohemarthrosis. Tricompartmental degenerative changes are present and greatest in the patellofemoral compartment. Multiple mineralized intra-articular loose bodies are present, largest measuring approximately 5 x 5 mm. Small suprapatellar knee joint effusion. IMPRESSION: 1. No acute fracture. 2. Tricompartmental knee osteoarthritis with multiple mineralized intra-articular loose bodies. Dictated by: Dictated on workstation # [id number]
--- NOTE | 2017-12-12 13:28 | ED Lower Extremity ---
General Chief Complaint: Lower Extremity Stated Complaint: FALL/L KNEE INJ Nursing Triage Note: PT HERE WITH C/O L KNEE PAIN AFTER FALLING OVER A DOG TOY LAST NIGHT. Nursing Sepsis Screen: No Definite Risk Source: patient, family History of Present Illness Date Seen by Provider: Dec 12, 2017 Time Seen by Provider: 13:23 Initial Comments This 62-year-old white female presents after she inadvertently slipped last night on a dog toy and fell striking the anterior aspect of her left knee. Patient is complaining of persistent pain and swelling about the left knee. Patient denies other remarkable injuring her accident. Patient is an surgery to both knees in the past by Dr. Velazco. The patient's pain is primarily over the anterior aspect the left knee, it is sharp in nature, made worse with active motion. Allergies and Home Medications Allergies Coded Allergies: ketorolac (Verified Allergy, Intermediate, 08/27/17) doxycycline (Unverified Allergy, Unknown, 08/16/17) hydrocodone (Unverified Allergy, Unknown, 08/16/17) piroxicam (Unverified Allergy, Unknown, 08/16/17) Home Medications Aspirin 81 Mg Tab.chew, 81 MG PO DAILY, (Reported) Atorvastatin Calcium 10 Mg Tablet, 10 MG PO HS, (Reported) Lisinopril 20 Mg Tablet, 20 MG PO BID, (Reported) Metoprolol Tartrate 100 Mg Tablet, 100 MG PO BID, (Reported) [place]-3/Dha/Epa/Fish Oil 1 Each Capsule, 1 EACH PO BID, (Reported) Oxycodone HCl/Acetaminophen 1 Each Tablet, 1 TAB PO TID PRN for PAIN-MODERATE, ( Reported) Pantoprazole Sodium 40 Mg Tablet.dr, 40 MG PO DAILY, (Reported) Pioglitazone HCl/Metformin HCl 1 Each Tablet, 0.5 TAB PO BID, (Reported) Sitagliptin Phosphate 100 Mg Tablet, 100 MG PO DAILY, (Reported) Sucralfate 1 Gm Tablet, 1 GM PO ACHS, (Reported) Tramadol HCl 50 Mg Tablet, 50 MG PO 4 TIMES A DAY Prescribed by: RICHIE BENTLEY on 08/27/17 0937 Constitutional: No chills EENTM: No ear pain Respiratory: No cough Cardiovascular: No chest pain Gastrointestinal: No abdominal pain, No nausea Genitourinary: no symptoms reported Musculoskeletal: see HPI, joint pain Skin: No change in color, No rash Psychiatric/Neurological: No Symptoms Reported Past [id number] Hx Patient Social History Type Used: Cigarettes Former Smoker, Quit: Aug 16, 1996 Recent Foreign Travel: No Contact w/Someone Who Travel: No Recent Infectious Disease Expo: No Recent Hopitalizations: No Immunizations Up To Date Tetanus Booster (TDap): Unknown Date of Pneumonia Vaccine: May 18, 2012 Seasonal Allergies Seasonal Allergies: Yes (MILD) Surgeries History of Surgeries: Yes (LT SHOULDER x2, LT OOPHORECTOMY, BILAT CTR, RT KNEE SCOPE x2, LT KNEE SCOPE) Surgeries: Section, Gallbladder, Tubal Ligation Respiratory History of Respiratory Disorde: Yes ("NODULES IN MY LUNGS") Cardiovascular History of Cardiac Disorders: Yes (HEART CATH-NO STENTS, NM x3) Cardiac Disorders: Heart Attack, High Cholesterol, Irregular Heartbeat Neurological History of Neurological Disord: Yes (LOZADA'S PALSY LEFT SIDE OF FACE x2) Reproductive System Hx Reproductive Disorders: No Sexually Transmitted Disease: No HIV/AIDS: No 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 [employer] History: Menopausal Genitourinary History of Genitourinary Disor: Yes Genitourinary Disorders: Kidney Stones Gastrointestinal History of Gastrointestinal Di: Yes Gastrointestinal Disorders: Colitis, Gastroesophageal Reflux, Chronic Diarrhea , Ulcer Musculoskeletal History of Musculoskeletal Dis: Yes Musculoskeletal Disorders: Degenerate Disk Disease, Arthritis, Chronic Back Pain Endocrine History of Endocrine Disorders: Yes Endocrine Disorders: Diabetes, 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 Hearing Impairment: Denies Cancer History of Cancer: No Psychosocial History of Psychiatric Problem: Yes (MILD-RELATED TO LOSS OF ) Behavioral Health Disorders: Anxiety, Depression Integumentary History of Skin or Integumenta: No Blood Transfusions History of Blood Disorders: No Adverse Reaction to a Blood Tr: No Reviewed Nursing Assessment Reviewed/Agree w Nursing PMH: Yes Family Medical History Significant Family History: No Pertinent Family Hx Physical Exam Vital Signs Vital Signs - First Documented 12/12/17 11:22 Temp 97.5 Pulse 55 Resp 18 B/P (MAP) 160/68 (98) Pulse Ox 95 O2 Delivery Room Air Capillary Refill : Less Than 3 Seconds General Appearance: WD/WN, mild distress Neck: normal inspection Cardiovascular: normal peripheral pulses, regular rate, rhythm Respiratory: chest non-tender, lungs clear, normal breath sounds Gastrointestinal: normal bowel sounds, non tender, soft Knees: left knee joint effusion, left knee soft tissue tenderness, left knee swelling Neurologic/Tendon: normal motor functions, normal tendon functions Neurologic/Psychiatric: no motor/sensory deficits, alert, normal mood/affect, oriented x 3 Skin: normal color, warm/dry Progress/Results/Core Measures Results/Orders My Orders Orders - KHURRAM GRIJALVA MD Knee, Left, 3 Views (12/12/17 11:22) Vital Signs/I&O Vital Sign - Last 12Hours 12/12/17 11:22 Temp 97.5 Pulse 55 Resp 18 B/P (MAP) 160/68 (98) Pulse Ox 95 O2 Delivery Room Air Blood Pressure Mean: 98 Progress Note : Time: 13:27 Progress Note The patient's x-ray left knee failed to demonstrate evidence of fracture dislocation. Marked degenerative changes were noted. The patient has a marked traumatic effusion left knee. The findings were discussed with the patient and recommendations were made for close follow-up with orthopod, Dr. Velazco. The patient has oxycodone for pain at home. Departure Impression Impression: Primary Impression: Effusion, left knee Disposition: 01 HOME, SELF-CARE Condition: Unchanged Departure-Patient Inst. Decision time for Depature: 13:29 Referrals: [facility] [place] Primary Care Physician PRISCILLA BLANCAS APRN (Family) Primary Care Physician Patient Instructions: Contusion (DC) Add. Discharge Instructions: Continue with your oxycodone for pain. Knee wrap to the left knee. Ice and elevate left knee. Close follow-up with Dr. Velazco. All discharge instructions reviewed with patient and/or family. Voiced understanding. KHURRAM GRIJALVA MD Dec 12, 2017 13:28
[2017-12-12 13:55] VITALS: BP 142/61
== END 2017-12-12 13:57 | disposition home or self-care (01) ==
LOC: EDUNIT# 10:26 → ER 10:28
DX: M25.462 Effusion, left knee (principal); I25.2 Old myocardial infarction; E78.00 Pure hypercholesterolemia, unspecified; G51.0 Bell's palsy; K21.9 Gastro-esophageal reflux disease without esophagitis; E11.9 Type 2 diabetes mellitus without complications; F41.9 Anxiety disorder, unspecified; F32.9 Major depressive disorder, single episode, unspecified; Z87.19 Personal history of other diseases of the digestive system; Z87.442 Personal history of urinary calculi; Z88.5 Allergy status to narcotic agent; Z88.8 Allergy status to other drugs, medicaments and biological substances; Z88.1 Allergy status to other antibiotic agents; Z79.82 Long term (current) use of aspirin; Z87.891 Personal history of nicotine dependence; Z87.59 Personal history of other complications of pregnancy, childbirth and the puerperium; Z98.51 Tubal ligation status; Z90.721 Acquired absence of ovaries, unilateral; Z95.5 Presence of coronary angioplasty implant and graft; W01.198A Fall on same level from slipping, tripping and stumbling with subsequent striking against other object, initial encounter
CPT/HCPCS: 73562

== ENCOUNTER → 2018-04-21 | Outpatient (CLI) | payer MEDICAID ==
[~2018-04-21] MED LIST changes: +IOHEXOL 350 MG/ML 100 ML (OMNIPAQUE 350) VIAL IV ONE; +NS 250 ML (IVPB) BAG IV ONE; +PRD20T PO
--- NOTE | 2018-04-21 10:06 | Diagnostic Imaging Report ---
PROCEDURE: CT abdomen and pelvis with and without contrast. TECHNIQUE: Precontrast acquisitions were acquired through the abdomen and pelvis. Multiple contiguous axial images were obtained through the abdomen and pelvis after the administration of intravenous contrast. INDICATION: Renal cell carcinoma of the left kidney. Correlation is made with prior CT from 09/29/2017. The lung bases are clear. No discrete liver mass is identified. The gallbladder is surgically absent. The pancreas and spleen are unremarkable. No adrenal mass is identified. Multiple circumscribed low density masses within the right kidney are again noted suggestive of cysts. The heterogeneously enhancing mass in the mid left kidney does show some slight increase in size 3.2 cm compare with 2.7 cm on prior. This again is suggestive of a renal cell carcinoma. Small cyst along the lateral portion of the left kidney appears stable. No central retroperitoneal or mesenteric lymphadenopathy is seen. The small and large bowel loops are of normal caliber. There is no ascites. The bladder is unremarkable. No pelvic lymphadenopathy is seen. No osteolytic or blastic lesions are seen. IMPRESSION: Slight increase in size of the heterogeneously enhancing solid mass in the left kidney when compared with prior CT from 09/29/2017. This is again suggestive of a renal cell carcinoma. No definite evidence of metastatic disease or adenopathy is detected. Dictated by: Dictated on workstation # [id number]
== END ==
LOC: RAD 09:16
PROVIDERS: ATTEND Nurse Practitioner Family
DX: C64.2 Malignant neoplasm of left kidney, except renal pelvis (principal)
CPT/HCPCS: 74178

== ENCOUNTER 2018-05-01 17:12 | Emergency (ER) | payer MEDICAID ==
[~2018-05-01] VITALS: Ht 172.7 cm; Wt 90.7 kg
[~2018-05-01 17:12] MED LIST changes: -IOHEXOL 350 MG/ML 100 ML (OMNIPAQUE 350) VIAL IV ONE; -NS 250 ML (IVPB) BAG IV ONE; -PRD20T PO
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
--- NOTE | 2018-05-01 19:51 | Diagnostic Imaging Report ---
Clinical indication: Patient with severe headache and neck pain with bilateral facial numbness. Tongue feels thick. Patient has headache and dizziness. Exam: Head CT without IV contrast. Axial CT scan of the cervical spine with sagittal and coronal reformations. Comparison: None. Findings: Head CT: There is no evidence of acute cerebral infarct, intracranial hemorrhage, or gross mass effect. The brain parenchymal volume appears appropriate for patient's age. There are a few small areas of low-attenuation white matter changes in both cerebral hemispheres, likely representing chronic small vessel ischemic disease. There is normal ring-white matter distinction. There is no significant midline shift or herniation. There is no evidence of hydrocephalus. The basal cisterns are unremarkable. The skull, extracranial soft tissue, and orbits are unremarkable. There is a small mucous retention cyst in the right maxillary sinus. Temporal bones show no significant abnormality. Cervical spine: There is limited visualization of the lower cervical spine due to patient body habitus and streak artifact. There is no evidence of acute cervical spine fracture or dislocation. There is severely hypertrophic spurs circumferentially seen involving the C4-T1 levels. There is moderate to severe bilateral neural foramen narrowing seen from the C4-C6 levels. The neck soft tissue structures are unremarkable. Visualized upper lung sutton are clear. Impression: 1: There is no evidence of acute intracranial process. Age-related brain parenchymal changes with chronic small vessel ischemic disease. 2: Severe cervical spine degenerative disease with no acute fracture or dislocation. Dictated by: Dictated on workstation # [id number]
[2018-05-01] MEDS ORDERED: predniSONE 20 MG TAB PO ONE (20:45)
[2018-05-01] MEDS ORDERED: PRD20T PO (20:50)
[2018-05-01 20:56] VITALS: BP 168/87
--- OUTSIDE RECORDS SUMMARY | 2018-05-02 12:46 | XMS REPORT | Clinical Summary ---
Author Author [facility] Organization [facility] Address Unknown Phone Unavailable Care Team Providers Care Retail Presentation Specialist Name Role Phone Александр Rincon APRN PCP Source Comments Some departments are not documenting in the electronic medical record. If you do not see the information that you expected, contact Release of Information in the Health Information Management department at [phone] for further assistance in locating additional records.[facility] Allergies Not on File Current Medications [...] she will call after discussion with IR Social History Tobacco Use Types Packs/Day Years Used Date Never Assessed Sex Assigned at Date Recorded Not on file Last Filed Vital Signs Vital Sign Reading Time Taken Blood Pressure 176/81 11/15/2017 1:35 PM FACILITIES COORDINATOR Pulse 62 11/15/2017 1:35 PM FACILITIES COORDINATOR Temperature 36.5 C (97.7 F) 11/15/2017 1:35 PM FACILITIES COORDINATOR Respiratory Rate 16 11/15/2017 1:35 PM FACILITIES COORDINATOR Oxygen Saturation 100% 11/15/2017 1:35 PM FACILITIES COORDINATOR Inhaled Oxygen - - Concentration Weight 98.5 kg (217 lb 3.2 oz) 11/15/2017 1:35 PM FACILITIES COORDINATOR Height 172.7 cm (5' 8") 11/15/2017 1:35 PM FACILITIES COORDINATOR Body Mass Index 33.03 11/15/2017 1:35 PM FACILITIES COORDINATOR Plan of Treatment Health Maintenance Due Date Last Done Comments HEPATITIS C SCREENING 1955 PHYSICAL (COMPREHENSIVE) 1962 EXAM PERTUSSIS VACCINE 1966 HIV SCREENING 1970 TETANUS VACCINE 01/09/1972 CERVICAL CANCER SCREENING 1985 BREAST CANCER SCREENING 1995 COLORECTAL CANCER 2005 SCREENING SHINGLES RECOMBINANT 2005 VACCINE (1 of 2) INFLUENZA VACCINE 07/18/2018 09/17/2005, 08/14/2004, 09/06/2003, Additional history exists Results Not on filefrom Last 3 Months
--- OUTSIDE RECORDS SUMMARY | 2018-05-02 12:47 | XMS REPORT ---
Author Author YONNY PRISCILLA Organization [facility] Address [address] [place] [address] Care Team Providers Care Food Service Cashier Name Role Phone BLANCASNADER YeeELE Unavailable PROBLEMS Type Condition ICD9-CM Code UXL08-GM Code Onset Dates Condition Status SNOMED Code Problem Spondylosis of cervical region without myelopathy or radiculopathy M47.812 Active 098298320 Problem Body mass index (BMI) of 32.0-32.9 in adult Z68.32 Active 062240899 Problem Pulmonary nodule R91.1 Active 297532076 Problem Metabolic disorder, unspecified E88.9 Active 437219260 Problem 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3 Active 054189362 Problem Major depressive disorder, recurrent episode, moderate F33.1 Active 444311673 Problem Other obesity due to excess calories E66.09 Active 990104763 Problem GERD without esophagitis K21.9 Active 086694538 Problem Seasonal allergic rhinitis due to pollen J30.1 Active 53532489 Problem Chronic esophagogastric ulcer K25.7 Active 42207698 Problem Type 2 diabetes mellitus without complication, without long-term current use of insulin E11.9 Active 411354754 Problem Left kidney mass N28.89 Active 205263812 Problem Essential hypertension I10 Active 94212036 Problem Pain syndrome, chronic G89.4 Active 488643626 Problem Lumbago with sciatica, left side M54.42 Active 287372769 Problem Right renal mass N28.89 Active 712685555 Problem Lumbago with sciatica, right side M54.41 Active 370614278224940 Problem 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 Active 089980385 ALLERGIES Substance Reaction Event Type Date Status Hydrocodone-Acetaminophen anaphylaxis Drug Allergy Oct, Active Feldene cintron's palsy Drug Allergy Oct, Active Doxycycline Monohydrate anaphylaxis Drug Allergy Oct, Active ENCOUNTERS Encounter Location Date Diagnosis [facility] [id number] [place] [address] 27107- 0170 Mar, [facility]ALK [facility] [place] [id number] [place] [address] 08216 -5358 Mar, Low back pain, unspecified back pain laterality, unspecified chronicity, with sciatica presence unspecified M54.5 and Type 2 diabetes mellitus without complication, without long-term current use of insulin E11.9 [place] [id number] [place] [address] 15333- 9790 February, [place] [id number] [place] [address] 51463- 5821 February, 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 [facility] [place] [id number] [place] [address] 82625 -3143 February, Strain of neck muscle, initial encounter S16.1XXA [place] [id number] [place] [address] 21259- 1625 February, Type 2 diabetes mellitus without complication, without long- term current use of insulin E11.9 ; Essential hypertension I10 ; Body mass index (BMI) of 32.0-32.9 in adult Z68.32 ; Lumbago with sciatica, left side M54.42 ; Lumbago with sciatica, right side M54.41 ; Major depressive disorder, recurrent episode, moderate F33.1 ; Other obesity due to excess calories E66.09 ; 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3 ; Metabolic disorder, unspecified E88.9 ; Right renal mass N28.89 and Seasonal allergic rhinitis due to pollen J30.1 [address] [place] [address] 03536- 4730 February, Essential hypertension I10 ; 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 ; Body mass index (BMI) of 32.0-32.9 in adult Z68.32 and Type 2 diabetes mellitus without complication, without long-term current use of insulin E11.9 [place] [id number] [place] [address] 18830- 2508 February, Type 2 diabetes mellitus without complication, without long- term current use of insulin E11.9 [facility] [id number] [place] [address] 70537- 3206 Jan, Lumbago with sciatica, right side M54.41 [facility] [id number] [place] [address] 47548 -7572 Jan, Sore throat J02.9 [facility] [address] [place] [id number] [place] [address] 60264- 2488 Dec, [facility] [address] [place] [id number] [place] [address] 86431- 6300 Dec, Type 2 diabetes mellitus without complication, without long- term current use of insulin E11.9 [place] [address] [place] [id number] [place] [address] 15607- 0440 Dec, [facility] [address] [place] [id number] [place] [address] 78531- 0170 Dec, [facility] [address] [place] [id number] [place] [address] 85809- 9635 Dec, [facility] [address] [place] [id number] [place] [address] 63672- 3244 Dec, Type 2 diabetes mellitus without complication, without long- term current use of insulin E11.9 ; Essential hypertension I10 ; Lumbago with sciatica, left side M54.42 ; Lumbago with sciatica, right side M54.41 ; Major depressive disorder, recurrent episode, moderate F33.1 ; Other obesity due to excess calories E66.09 ; Body mass index (BMI) of 32.0-32.9 in adult Z68.32 ; 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3 ; Metabolic disorder, unspecified E88.9 ; Right renal mass N28.89 ; Seasonal allergic rhinitis due to pollen J30.1 and GERD without esophagitis K21.9 [facility] [address] [place] [address] 43181- 7369 Dec, [facility] [address] [address] 4966 Nov, [facility] [address] [place] [id number] [place] [address] 63298- 3863 Nov, [facility] [address] [place] [id number] [place] [address] 90317- 4574 Nov, [facility] [address] [place] [id number] [place] [address] 42038- 7145 Nov, [facility] [address] [place] [id number] [place] [address] 89228- 7245 Oct, [facility] [address] [place] [id number] [place] [address] 14281- 5457 Oct, [facility] [address] [place] [id number] [place] [address] 11853- 2642 Oct, [facility] [address] [place] [id number] [place] [address] 17612- 6203 Oct, Well woman exam with routine gynecological exam Z01.419 ; Screen for STD (sexually transmitted disease) Z11.3 ; Screening breast examination Z12.31 ; Type 2 diabetes mellitus without complication, without long -term current use of insulin E11.9 ; Other obesity due to excess calories E66.09 and Body mass index (BMI) of 32.0-32.9 in adult Z68.32 [place] [address] [place] [id number] [place] [address] 89178- 4353 Oct, Ganglion of left wrist M67.432 [facility] [address] [place] [address] 77900- 2812 Oct, [facility] [address] [place] [id number] [place] [address] 84629- 9148 Oct, [facility] [id number] [place] [address] 47848 -3009 Oct, Ganglion cyst M67.40 [facility] [address] [place] [id number] [place] [address] 02131- 4253 Oct, [facility] [address] [place] [address] 37724- 3528 Sep, [facility] [address] [place] [id number] [place] [address] 134372- 6838 Sep, Major depressive disorder, recurrent episode, moderate F33.1 [facility] [address] [place] [id number] [place] [address] 54233- 0569 Sep, [facility] [address] [place] [id number] [place] [address] 27347- 4519 Sep, Right renal mass N28.89 [facility] [address] [place] [id number] [place] [address] 45094- 0183 Sep, [facility] [address] [place] [id number] [place] [address] 58672- 1610 Sep, [facility] [address] [place] [id number] [place] [address] 60163- 4955 Sep, Right renal mass N28.89 [facility] [address] [place] [address] 99945- 4193 Sep, [facility] [address] [place] [id number] [place] [address] 74843- 3983 Sep, [facility] [id number] [place] [address] 64283- 2524 Sep, [facility] [id number] [place] [address] 94019- 7267 Sep, [facility] [address] [place] [address] 65122- 1383 Sep, [facility] [address] [place] [id number] [place] [address] 886000- 1665 Sep, [facility] [address] [place] [address] 31762- 3439 Sep, Pulmonary nodule R91.1 [facility] [address] [place] [id number] [place] [address] 40161- 1922 Aug, [place] [address] 78975- 6060 Aug, Right renal mass N28.89 and Pulmonary nodule R91.1 [place] [address] [place] [id number] [place] [address] 42290- 4743 Aug, Essential hypertension I10 ; Right renal mass N28.89 ; Chronic gastric ulcer, unspecified whether gastric ulcer hemorrhage or perforation present K25.7 ; Spondylosis of cervical region without myelopathy or radiculopathy M47.812 ; 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 and Hospital discharge follow-up Z09 [place] [address] [place] [id number] [place] [address] 57594- 3323 14 Aug, 2017 [place] [address] 00176- 4497 Aug, [place] [address] [place] [id number] [place] [address] 17291- 4321 Aug, [place] [address] [place] [id number] [place] [address] 89998- 3998 Aug, Pain syndrome, chronic G89.4 ; Lumbago with sciatica, right side M54.41 ; Lumbago with sciatica, left side M54.42 ; Other chronic pain G89.29 ; Cervicalgia M54.2 ; Controlled substance agreement signed Z79.899 and Essential hypertension I10 [place] [address] [place] [id number] [place] [address] 26154- 7128 Aug, [place] [address] 73999- 8811 Jul, Encounter to establish care Z76.89 ; Type 2 diabetes mellitus without complication, without long-term current use of insulin E11.9 ; Essential hypertension I10 ; Lumbago with sciatica, left side M54.42 ; Lumbago with sciatica, right side M54.41 ; Other chronic pain G89.29 ; Injury of right knee, subsequent encounter S89.91XD and Injury of right foot, subsequent encounter S99.921D IMMUNIZATIONS No Known Immunizations SOCIAL HISTORY Never Assessed REASON FOR VISIT Annual physical (female)--tjanssenMA, -needs mammogram , -questions if vincent is causing her to have daily loose stools PLAN OF CARE Activity Details Follow Up 1 Year, prn Reason: Pending Test PAP REFLEX TO HPV IF ASCUS VITAL SIGNS Height 68 in 2017-10-28 Weight 214 lbs 2017-10-28 Temperature 98.8 degrees Fahrenheit 2017-10-28 Heart Rate 70 bpm 2017-10-28 Respiratory Rate 18 2017-10-28 BMI 32.54 kg/m2 2017-10-28 Blood pressure systolic 170 mmHg 2017-10-28 Blood pressure diastolic 98 mmHg 2017-10-28 MEDICATIONS Medication Instructions Dosage Frequency Start Date End Date Duration Status Tizanidine HCl 4 MG Orally Three times a day 1 capsule as needed 8h 30 Active Aspirin 81 MG Orally Once a day 1 tablet 24h Active Oxycodone-Acetaminophen 7.5-325 MG Orally every 6 hrs 1 tablet as needed 6h Oct, 28 days Active Pioglitazone HCl-Metformin HCl 15-500 MG Orally 2 times a day 1/2 tablet 12h Active Onglyza 5 mg Orally Once a day 1 tablet 24h Oct, 30 day(s) Active Lipitor 10 mg Orally Once a day 1 tablet 24h 30 Active Lisinopril 20 mg Orally twice a day 1 tablet 12h 30 Active Metoprolol Tartrate 100 MG Orally Twice a day 1 tablet with food 12h 30 Active Valium 5 mg Orally once 30 minutes prior to scan- may repeat x 1 5mg tablet if needed Aug, 1 days Not-Taking Clopidogrel Bisulfate 75 MG Orally Once a day 1 tablet 24h Not- Taking Sucralfate 1 GM Orally 4 times a day 1 tablet 6h Active Sertraline HCl 25 MG Orally Once a day 1 tablet 24h Sep, 30 day (s) Active Fish Oil 1000 MG Orally twice a day 1 capsule 12h Active Dexilant 60 mg Orally Once a day 1 capsule 24h Aug, 90 days Active RESULTS No Results PROCEDURES Procedure Date Ordered Result Body Site SPECIMEN HANDLING Oct 28, 2017 No Charge Oct 28, 2017 Bacterial Vaginosis In House Oct 28, 2017 LAB NOT BILLED BY [facility] Oct 28, 2017 INSTRUCTIONS MEDICATIONS ADMINISTERED No Known Medications MEDICAL (GENERAL) HISTORY Type Description Date Medical History type II diabetes Medical History hypertension Medical History coronary artery disease Medical History hypercholesterolemia Medical History gastric ulcer Medical History Hyperplastic rectal polyp Medical History invokana Surgical History shoulder arthroscopy Surgical History angioplasty Surgical History cholecystectomy Surgical History oopherectomy, left Surgical History section Surgical History left knee arthroscopy Surgical History right knee arthroscopy Surgical History carpal tunnel release Surgical History tubal ligation Surgical History polp removal/colonoscopy Hospitalization History heart attack [phone] 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
--- OUTSIDE RECORDS SUMMARY | 2018-05-02 12:47 | XMS REPORT ---
Author Author PRISCLILA BLANCAS Organization [facility] Address [address] [place] [address] Care Team Providers Care Copy Center Associate Name Role Phone YONNY PRISCILLA Unavailable PROBLEMS Type Condition ICD9-CM Code GZB32-DN Code Onset Dates Condition Status SNOMED Code Problem Spondylosis of cervical region without myelopathy or radiculopathy M47.812 Active 020211667 Problem Body mass index (BMI) of 32.0-32.9 in adult Z68.32 Active 884029468 Problem Pulmonary nodule R91.1 Active 147845068 Problem Metabolic disorder, unspecified E88.9 Active 902458840 Problem 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3 Active 399512324 Problem Major depressive disorder, recurrent episode, moderate F33.1 Active 081056217 Problem Other obesity due to excess calories E66.09 Active 033234157 Problem GERD without esophagitis K21.9 Active 211736689 Problem Seasonal allergic rhinitis due to pollen J30.1 Active 60559340 Problem Chronic esophagogastric ulcer K25.7 Active 86333628 Problem Type 2 diabetes mellitus without complication, without long-term current use of insulin E11.9 Active 580024632 Problem Left kidney mass N28.89 Active 671327578 Problem Essential hypertension I10 Active 46583619 Problem Pain syndrome, chronic G89.4 Active 582230480 Problem Lumbago with sciatica, left side M54.42 Active 531078488 Problem Right renal mass N28.89 Active 497765365 Problem Lumbago with sciatica, right side M54.41 Active 056067327354738 Problem 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 Active 331334975 ALLERGIES No Information ENCOUNTERS Encounter Location Date Diagnosis [facility] [address] [facility] [id number] [address] Mar, [facility] [address] [place] [id number] [address]- 8653 February, [place] [id number] [place] [address] 97999- 2850 February, 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 [facility] [place] [id number] [place] [address] 08674 -4888 February, Strain of neck muscle, initial encounter S16.1XXA [place] [id number] [place] [address] 76121- 5026 February, Type 2 diabetes mellitus without complication, [...] Seasonal allergic rhinitis due to pollen J30.1 [address] [place] [address] 09954- 7281 February, Essential hypertension I10 ; 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 ; Body mass index (BMI) of 32.0-32.9 in adult Z68.32 and Type 2 diabetes mellitus without complication, without long-term current use of insulin E11.9 [place] [address] [place] [address] 11971- 8261 February, Type 2 diabetes mellitus without complication, without long- term current use of insulin E11.9 [place] [address] [place] [address] 70302- 8879 Jan, Lumbago with sciatica, right side M54.41 [facility] IN [facility] [id number] [place] [address] 02124 -5496 Jan, Sore throat J02.9 [place] [address] [place] [id number] [address]- 5174 Dec, [facility] [address] [place] [address] 09253- 2110 Dec, Type 2 diabetes mellitus without complication, without long- term current use of insulin E11.9 [place] [address] [place] [address] 52410- 8669 Dec, [place] [address] [place] [id number] [place] [address] 62484- 4636 Dec, [place] [address] [place] [address] 78032- 1687 Dec, [place] [address] [place] [id number] [place] [address] 08593- 4606 Dec, Type 2 diabetes mellitus without complication, [...] pollen J30.1 and GERD without esophagitis K21.9 [place] [address] [address]- 0433 Dec, [place] [address] [address]- 2368 Nov, [place] [address] [place] [id number] [place] [address] 47990- 6977 Nov, [facility] [address] [address]- 2857 Nov, [place] [address] [place] [address] 56355- 0625 Nov, [facility] [address] [place] [address] 53968- 9855 Oct, [facility] [address] [place] [id number] [place] [address] 42461- 0757 Oct, [place] [address] [place] [id number] [place] [address] 07235- 8286 Oct, [facility] [address] 58339- 3577 Oct, Well woman exam with routine gynecological exam Z01.419 ; Screen for STD (sexually transmitted disease) Z11.3 ; Screening breast examination Z12.31 ; Type 2 diabetes mellitus without complication, without long -term current use of insulin E11.9 ; Other obesity due to excess calories E66.09 and Body mass index (BMI) of 32.0-32.9 in adult Z68.32 [place] [address] [place] [id number] [place] [address] 15045- 1973 Oct, Ganglion of left wrist M67.432 [place] [address] [place] [id number] [place] [address] 84188- 8000 Oct, [place] [address] [place] [id number] [place] [address] 18700- 7570 Oct, [facility] [address] [place] [address] 98266 -5571 Oct, Ganglion cyst M67.40 [facility] [address] [place] [id number] [place] [address] 14315- 8732 Oct, [place] [address] [place] [address] 93650- 9013 Sep, [place] [address] [place] [id number] [place] [address] 77999- 0223 Sep, Major depressive disorder, recurrent episode, moderate F33.1 [place] [address] [place] [id number] [place] [address] 55246- 5633 Sep, [facility] [address] [address]- 0884 Sep, Right renal mass N28.89 [facility] [address] [place] [address] 41455- 3686 Sep, [facility] [address] [place] [id number] [place] [address] 08309- 0718 Sep, [facility] [address] [place] [id number] [place] [address] 39883- 4060 Sep, Right renal mass N28.89 [facility] [address] [place] [id number] [place] [address] 70785- 8589 Sep, [facility] [address] [place] [id number] [place] [address] 46870- 2085 Sep, [facility] [address] [place] [id number] [place] [address] 68315- 0435 Sep, [facility] [address] [address]- 4088 Sep, [facility] [address] [place] [id number] [place] [address] 98570- 3465 Sep, [facility] [address] [address]- 3370 Sep, [facility] [address] [place] [address] 54163- 5206 Sep, Pulmonary nodule R91.1 [facility] [address] [address]- 4433 Aug, [facility] [address] [place] [address] 54398- 8474 Aug, Right renal mass N28.89 and Pulmonary nodule R91.1 [facility] [address] [address]- 3097 Aug, Essential hypertension I10 ; Right renal mass N28.89 ; Chronic gastric ulcer, unspecified whether gastric ulcer hemorrhage or perforation present K25.7 ; Spondylosis of cervical region without myelopathy or radiculopathy M47.812 ; 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 and Hospital discharge follow-up Z09 [place] [address] [place] [address] 11910- 4671 14 Aug, 2017 [place] [address] [place] [id number] [place] [address] 15512- 2669 09 Aug, 2017 [place] [address] [place] [id number] [place] [address] 04858- 5237 Aug, [place] [address] [place] [id number] [place] [address] 45765- 7977 Aug, Pain syndrome, chronic G89.4 ; Lumbago with sciatica, right side M54.41 ; Lumbago with sciatica, left side M54.42 ; Other chronic pain G89.29 ; Cervicalgia M54.2 ; Controlled substance agreement signed Z79.899 and Essential hypertension I10 [place] [address] [place] [id number] [place] [address] 51557- 5442 02 Aug, 2017 [place] [address] [place] [id number] [place] [address] 00725- 0265 26 Jul, 2017 Encounter to establish care Z76.89 ; Type [...] SOCIAL HISTORY Never Assessed REASON FOR VISIT MRI PLAN OF CARE VITAL SIGNS MEDICATIONS Unknown Medications RESULTS No Results PROCEDURES No Known procedures INSTRUCTIONS MEDICATIONS ADMINISTERED No Known Medications MEDICAL [...] polp removal/colonoscopy Hospitalization History heart attack x3 [phone] 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
--- OUTSIDE RECORDS SUMMARY | 2018-05-02 12:47 | XMS REPORT ---
Author Author PRISCILLA BLANCAS Organization [facility] Address [address] [place] [address] Care Team Providers Care Back Digger Operator Name Role Phone PRISCILLA BLANCAS Unavailable PROBLEMS Type Condition ICD9-CM Code UWM10-XO Code Onset Dates Condition Status SNOMED Code Problem Spondylosis of cervical region without myelopathy or radiculopathy M47.812 Active 360570970 Problem Body mass index (BMI) of 32.0-32.9 in adult Z68.32 Active 174677982 Problem Pulmonary nodule R91.1 Active 798551621 Problem Metabolic disorder, unspecified E88.9 Active 414242802 Problem 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3 Active 234784503 Problem Major depressive disorder, recurrent episode, moderate F33.1 Active 611617017 Problem Other obesity due to excess calories E66.09 Active 820654756 Problem GERD without esophagitis K21.9 Active 414852662 Problem Seasonal allergic rhinitis due to pollen J30.1 Active 98160427 Problem Chronic esophagogastric ulcer K25.7 Active 58853078 Problem Type 2 diabetes mellitus without complication, without long-term current use of insulin E11.9 Active 655372147 Problem Left kidney mass N28.89 Active 287681990 Problem Essential hypertension I10 Active 42957972 Problem Pain syndrome, chronic G89.4 Active 638718722 Problem Lumbago with sciatica, left side M54.42 Active 423975393 Problem Right renal mass N28.89 Active 354025478 Problem Lumbago with sciatica, right side M54.41 Active [id number] Problem 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 Active 646521753 ALLERGIES No Information ENCOUNTERS Encounter Location Date Diagnosis [facility] [address] [facility] [id number] [address] Mar, [facility] [id number] [place] [address] 61775 -7230 Mar, Low back pain, unspecified back pain laterality, unspecified chronicity, with sciatica presence unspecified M54.5 and Type 2 diabetes mellitus without complication, without long-term current use of insulin E11.9 [place] [address], [place] [address] February, [place] [address] [place] [id number] [place] [address] 46970- 8053 February, 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 [facility] [id number] [place] [address] 31892 -2187 February, Strain of neck muscle, initial encounter S16.1XXA [place] [address] [address] [id number] [place] [address] 87968- 1746 February, Type 2 diabetes mellitus without complication, [...] Seasonal allergic rhinitis due to pollen J30.1 [place] [id number] [place] [address] 83775- 3924 February, Essential hypertension I10 ; 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 ; Body mass index (BMI) of 32.0-32.9 in adult Z68.32 and Type 2 diabetes mellitus without complication, without long-term current use of insulin E11.9 [place] [id number] [place] [address] 45926- 9613 February, Type 2 diabetes mellitus without complication, without long- term current use of insulin E11.9 [place] [id number] [place] [address] 81351- 8835 Jan, Lumbago with sciatica, right side M54.41 [facility] [address], [place] [address] Jan, Sore throat J02.9 [facility] [address], [place] [address] Dec, [facility] [id number] [place] [address] 85930- 6749 Dec, Type 2 diabetes mellitus without complication, without long- term current use of insulin E11.9 [place] [id number] [place] [address] 00833- 1136 Dec, [facility] [id number] [place] [address] 54046- 4286 Dec, [facility] [id number] [place] [address] 32388- 7292 Dec, [facility] [id number] [place] [address] 70671- 1462 Dec, Type 2 diabetes mellitus without complication, [...] pollen J30.1 and GERD without esophagitis K21.9 [facility] [address], [place] [address] Dec, [facility] [address], [place] [address] 6[address] Nov, [facility] [address] [address] [id number] [place] [address] 00357- 1633 Nov, [facility] [id number] [place] [address] 39893- 9154 Nov, [facility] [address] [id number] [place] [address] 26568- 5736 Nov, [facility] [address] 96388- 4168 Oct, [facility] [address] 41910- 5652 Oct, [place] [address] 75024- 0479 Oct, [facility] [address] 91358- 7955 Oct, Well woman exam with routine gynecological exam Z01.419 ; Screen for STD (sexually transmitted disease) Z11.3 ; Screening breast examination Z12.31 ; Type 2 diabetes mellitus without complication, without long -term current use of insulin E11.9 ; Other obesity due to excess calories E66.09 and Body mass index (BMI) of 32.0-32.9 in adult Z68.32 [place] [address] [address] [id number] [place] [address] 43675- 6679 Oct, Ganglion of left wrist M67.432 [place] [address] [address] [id number] [place] [address] 77176- 8743 Oct, [facility] [address] [id number] [place] [address] 45324- 0197 Oct, [facility] [id number] [place] [address] 24185 -0901 Oct, Ganglion cyst M67.40 [facility] [address] [address] [id number] [place] [address] 59869- 5127 Oct, [facility] [address] [address] [id number] [place] [address] 65887- 2436 Sep, [facility] [id number] [place] [address] 75631- 4201 Sep, Major depressive disorder, recurrent episode, moderate F33.1 [facility] [id number] [place] [address] 49241- 9471 Sep, [facility] [address] [id number] [place] [address] 43461- 6634 Sep, Right renal mass N28.89 [facility] [id number] [place] [address] 37125- 1283 Sep, [facility] [id number] [place] [address] 39396- 2700 Sep, [facility] [id number] [place] [address] 59657- 1075 Sep, Right renal mass N28.89 [facility] [id number] [place] [address] 00721- 1661 Sep, [facility] [id number] [place] [address] 05236- 7176 Sep, [facility] [id number] [place] [address] 32202- 0234 Sep, [facility] [id number] [place] [address] 16637- 6742 Sep, [facility] [id number] [place] [address] 79022- 7501 Sep, [facility] [id number] [place] [address] 55563- 9095 Sep, [facility] [id number] [place] [address] 44073- 5829 Sep, Pulmonary nodule R91.1 [facility] [id number] [place] [address] 09622- 3380 Aug, [facility] [id number] [place] [address] 26322- 1063 17 Aug, 2017 Right renal mass N28.89 and Pulmonary nodule R91.1 [place] [address] [address] [id number] [place] [address] 80683- 3232 16 Aug, 2017 Essential hypertension I10 ; Right renal mass N28.89 ; Chronic gastric ulcer, unspecified whether gastric ulcer hemorrhage or perforation present K25.7 ; Spondylosis of cervical region without myelopathy or radiculopathy M47.812 ; 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 and Hospital discharge follow-up Z09 [place] [address] [address] [id number] [place] [address] 77041- 1378 14 Aug, 2017 [place] [address] [address] [id number] [place] [address] 46763- 6738 Aug, [place] [address] [place] [id number] [place] [address] 13723- 1712 Aug, [place] [address] [place] [id number] [place] [address] 21965- 2744 Aug, Pain syndrome, chronic G89.4 ; Lumbago with sciatica, right side M54.41 ; Lumbago with sciatica, left side M54.42 ; Other chronic pain G89.29 ; Cervicalgia M54.2 ; Controlled substance agreement signed Z79.899 and Essential hypertension I10 [place] [id number] [place] [address] 50145- 3887 Aug, [place] [address] [place] [address] [id number] [place] [address] 62491- 2432 Jul, Encounter to establish care Z76.89 ; [...] SOCIAL HISTORY Never Assessed 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
--- OUTSIDE RECORDS SUMMARY | 2018-05-02 12:47 | XMS REPORT ---
Author Author PRISCILLA BLANCAS Organization [facility] Address [address] [place] [address] Care Team Providers Care Pickling Operator Name Role Phone YONNY PRISCILLA Unavailable PROBLEMS Type Condition ICD9-CM Code DSF32-KW Code Onset Dates Condition Status SNOMED Code Problem Other obesity due to excess calories E66.09 Active 943550560 Problem Seasonal allergic rhinitis due to pollen J30.1 Active 97060927 Problem Major depressive disorder, recurrent episode, moderate F33.1 Active 973847108 Problem Hyperlipidemia, unspecified E78.5 Active 05363285 Problem Left kidney mass N28.89 Active 746528470 Problem Type 2 diabetes mellitus with other specified complication E11.69 Active 99436594367238 Problem Chronic esophagogastric ulcer K25.7 Active 36211054 Problem 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3 Active 567503470 Problem GERD without esophagitis K21.9 Active 384977877 Problem Renal cell carcinoma of left kidney C64.2 Active 373215104 Problem Metabolic disorder, unspecified E88.9 Active 337828572 Problem Essential hypertension I10 Active 38351742 Problem Type 2 diabetes mellitus without complication, without long-term current use of insulin E11.9 Active 314624900 Problem Lumbago with sciatica, left side M54.42 Active 801582302 Problem Lumbago with sciatica, right side M54.41 Active 460600443290851 Problem Right renal mass N28.89 Active 784005898 Problem Spondylosis of cervical region without myelopathy or radiculopathy M47.812 Active 228729587 Problem Pain syndrome, chronic G89.4 Active 857015135 Problem Pulmonary nodule R91.1 Active 287490625 Problem 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 Active 171712894 Problem Body mass index (BMI) of 32.0-32.9 in adult Z68.32 Active 441892258 ALLERGIES No Information ENCOUNTERS Encounter Location Date Diagnosis [place] [address] [place] [id number] [place] [address] 53259- 3032 Apr, [place] [address] [address] [id number] [place] [address] 71291- 8929 Mar, Type 2 diabetes mellitus without complication, without long- term current use of insulin E11.9 ; Essential hypertension I10 ; Renal cell carcinoma of left kidney C64.2 ; Pain syndrome, chronic G89.4 ; Spondylosis of cervical region without myelopathy or radiculopathy M47.812 ; 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3 ; Body mass index (BMI) of 32.0-32.9 in adult Z68.32 ; GERD without esophagitis K21.9 ; Seasonal allergic rhinitis due to pollen J30.1 ; Major depressive disorder, recurrent episode, moderate F33.1 ; Type 2 diabetes mellitus with other specified complication E11.69 and Hyperlipidemia, unspecified E78.5 [facility] [place] [id number] [place] [address] 10281 -1497 Mar, Acute suppurative otitis media of both ears without spontaneous rupture of tympanic membranes, recurrence not specified H66.003 [place] [address] [address] [id number] [place] [address] 27474- 4093 Mar, [place] [address] [id number] [place] [address] 24851- 9495 Mar, 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 [place] [address] [address] [id number] [place] [address] 69263 -7146 Mar, Low back pain, unspecified back pain laterality, unspecified chronicity, with sciatica presence unspecified M54.5 and Type 2 diabetes mellitus without complication, without long-term current use of insulin E11.9 [place] [address] [address] [id number] [place] [address] 89690- 8204 February, [place] [address] [id number] [place] [address] 63973- 2479 February, 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 [facility] [place] [address] [address] [id number] [place] [address] 38111 -2112 February, Strain of neck muscle, initial encounter S16.1XXA [place] [address] 85842- 0034 February, Type 2 diabetes mellitus without complication, [...] Seasonal allergic rhinitis due to pollen J30.[address] 56848- 8992 February, Essential hypertension I10 ; 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 ; Body mass index (BMI) of 32.0-32.9 in adult Z68.32 and Type 2 diabetes mellitus without complication, without long-term current use of insulin E11.9 [place] [address] [address] [id number] [place] [address] 06465- 8127 February, Type 2 diabetes mellitus without complication, without long- term current use of insulin E11.9 [place] [address] [address] [id number] [place] [address] 22551- 1063 Jan, Lumbago with sciatica, right side M54.41 [facility] [address] [address] [id number] [place] [address] 11638 -1795 Jan, Sore throat J02.9 [place] [address] [address] [id number] [place] [address] 45566- 7571 Dec, [place] [address] [address] [id number] [place] [address] 59352- 9549 Dec, Type 2 diabetes mellitus without complication, without long- term current use of insulin E11.9 [facility] [address], [place] [address]- 1807 Dec, [facility] [address] [id number] [place] [address] 80347- 0854 Dec, [facility] [address] [address] [id number] [place] [address] 19484- 0360 Dec, [facility] [address] [id number] [place] [address] 82964- 9182 Dec, Type 2 diabetes mellitus without complication, [...] pollen J30.1 and GERD without esophagitis K21.9 [place] [address] [address] [id number] [place] [address] 15378- 3444 Dec, [place] [address] [address] [id number] [place] [address] 47091- 8896 Nov, [facility] [address] [id number] [place] [address] 35155- 9170 Nov, [facility] [address] [address] [id number] [place] [address] 46236- 1186 Nov, [facility] [address] [id number] [place] [address] 60911- 4621 Nov, [facility] [address] [place] [address] 51441- 4890 Oct, [facility] [address] [id number] [place] [address] 71588- 8169 Oct, [place] [address] [address] [id number] [place] [address] 73406- 3977 Oct, [facility] [address] 16032- 4860 Oct, Well woman exam with routine gynecological exam Z01.419 ; Screen for STD (sexually transmitted disease) Z11.3 ; Screening breast examination Z12.31 ; Type 2 diabetes mellitus without complication, without long -term current use of insulin E11.9 ; Other obesity due to excess calories E66.09 and Body mass index (BMI) of 32.0-32.9 in adult Z68.32 [place] [address] 16317- 7273 09 Oct, 2017 Ganglion of left wrist M67.432 [place] [address] 96328- 6693 Oct, [place] [address] 28235- 4132 Oct, [facility] [address] 51349 -6841 Oct, Ganglion cyst M67.40 [place] [address] 60383- 9362 Oct, [place] [address] 19527- 1603 Sep, [place] [address] 32254- 4240 Sep, Major depressive disorder, recurrent episode, moderate F33.1 [place] [address] 41230- 3270 Sep, [place] [address] 10580- 0969 15 Sep, 2017 Right renal mass N28.89 [place] [address] 43533- 3605 Sep, [facility] [address], [place] [address]- 0974 Sep, [facility] [id number] [place] [address] 63496- 5558 Sep, Right renal mass N28.89 [facility] [id number] [place] [address] 07593- 6881 Sep, [facility] [id number] [place] [address] 09599- 8148 Sep, [facility] [id number] [place] [address] 55868- 6207 Sep, [facility] [id number] [place] [address] 90520- 0589 Sep, [facility] [id number] [place] [address] 99083- 0633 Sep, [facility] [id number] [place] [address] 02865- 8952 Sep, [facility] [id number] [place] [address] 93174- 8512 Sep, Pulmonary nodule R91.1 [facility] [id number] [place] [address] 61376- 1190 Aug, [facility] [address] [place] [address] 87758- 8651 Aug, Right renal mass N28.89 and Pulmonary nodule R91.1 [facility] [id number] [place] [address] 33837- 6585 16 Aug, 2017 Essential hypertension I10 ; Right renal mass N28.89 ; Chronic gastric ulcer, unspecified whether gastric ulcer hemorrhage or perforation present K25.7 ; Spondylosis of cervical region without myelopathy or radiculopathy M47.812 ; 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 and Hospital discharge follow-up Z09 [facility] [address] [place] [place] [address]- 8989 14 Aug, 2017 [facility] [address], [place] [address]- 1853 Aug, [facility] [address], [place] [address]- 3060 Aug, [facility] [id number] [place] [address] 47896- 6791 Aug, Pain syndrome, chronic G89.4 ; Lumbago with sciatica, right side M54.41 ; Lumbago with sciatica, left side M54.42 ; Other chronic pain G89.29 ; Cervicalgia M54.2 ; Controlled substance agreement signed Z79.899 and Essential hypertension I10 [facility] [address], [place] [address]- 9691 Aug, [place] [id number] [place] [address] 65646- 1043 Jul, Encounter to establish care Z76.89 ; [...] SOCIAL HISTORY Never Assessed REASON FOR VISIT Controlled Med Refill PLAN OF CARE VITAL SIGNS MEDICATIONS Medication Instructions Dosage Frequency Start Date End Date Duration Status Oxycodone-Acetaminophen 7.5-325 MG Orally every 6 hrs 1 tablet as needed 6h Dec, 28 days Active RESULTS No Results PROCEDURES No Known procedures INSTRUCTIONS MEDICATIONS ADMINISTERED No Known Medications MEDICAL (GENERAL) HISTORY Type Description Date Medical History type II diabetes Medical History hypertension Medical History coronary artery disease Medical History hypercholesterolemia Medical History gastric ulcer Medical History Hyperplastic rectal polyp Medical History invokana Medical History Left Renal Cell Carcinoma Surgical History shoulder arthroscopy Surgical History angioplasty Surgical History cholecystectomy Surgical History oopherectomy, left Surgical History section Surgical History left knee arthroscopy Surgical History right knee arthroscopy Surgical History carpal tunnel release Surgical History tubal ligation Surgical History polp removal/colonoscopy Hospitalization History heart attack x3 2390-5746 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
--- OUTSIDE RECORDS SUMMARY | 2018-05-02 12:48 | XMS REPORT ---
Author Author PRISCILLA BLANCAS Organization [facility] Address [address] [place] [address] Care Team Providers Care Director Federal Name Role Phone YONNY PRISCILLA Unavailable PROBLEMS Type Condition ICD9-CM Code CAU69-GR Code Onset Dates Condition Status SNOMED Code Problem Spondylosis of cervical region without myelopathy or radiculopathy M47.812 Active 090115789 Problem Body mass index (BMI) of 32.0-32.9 in adult Z68.32 Active 807885627 Problem Pulmonary nodule R91.1 Active 654321500 Problem Metabolic disorder, unspecified E88.9 Active 755157511 Problem 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3 Active 120621998 Problem Major depressive disorder, recurrent episode, moderate F33.1 Active 910938585 Problem Other obesity due to excess calories E66.09 Active 044458737 Problem GERD without esophagitis K21.9 Active 130624832 Problem Seasonal allergic rhinitis due to pollen J30.1 Active 28151106 Problem Chronic esophagogastric ulcer K25.7 Active 70866504 Problem Type 2 diabetes mellitus without complication, without long-term current use of insulin E11.9 Active 367610936 Problem Left kidney mass N28.89 Active 077277417 Problem Essential hypertension I10 Active 57459715 Problem Pain syndrome, chronic G89.4 Active 601794144 Problem Lumbago with sciatica, left side M54.42 Active 026871060 Problem Right renal mass N28.89 Active 275102329 Problem Lumbago with sciatica, right side M54.41 Active 422574592850516 Problem 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 Active 447670611 ALLERGIES No Information ENCOUNTERS Encounter Location Date Diagnosis [facility] [address] [facility] [id number] [address] Mar, [facility] [address] [place] [id number] [address] February, [place] [address] [address] [place] [address] 06947- 7897 February, 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 [facility] [place] [address] [address] [place] [address] 40301 -5341 February, Strain of neck muscle, initial encounter S16.[place] [id number] [place] [address] 51264- 0060 February, Type 2 diabetes mellitus without complication, [...] Seasonal allergic rhinitis due to pollen J30.1 [address] [place] [address] 60272- 7458 February, Essential hypertension I10 ; 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 ; Body mass index (BMI) of 32.0-32.9 in adult Z68.32 and Type 2 diabetes mellitus without complication, without long-term current use of insulin E11.9 [place] [address] [place] [address] 11137- 5199 February, Type 2 diabetes mellitus without complication, without long- term current use of insulin E11.9 [place] [address] [place] [address] 81367- 0035 Jan, Lumbago with sciatica, right side M54.41 [facility] WALK IN [facility] [address] [place] [address] 97479 -7297 Jan, Sore throat J02.9 [place] [address] [place] [id number] [address]77 Dec, [facility] [address] [place] [address] 04906- 7371 Dec, Type 2 diabetes mellitus without complication, without long- term current use of insulin E11.9 [place] [address] [place] [address] 80325- 3819 Dec, [place] [address] [place] [id number] [place] [address] 16324- 0794 Dec, [place] [address] [place] [address] 83573- 7833 Dec, [place] [address] [place] [id number] [place] [address] 78178- 6152 Dec, Type 2 diabetes mellitus without complication, [...] pollen J30.1 and GERD without esophagitis K21.9 [place] [address] [address] 4574 Dec, [place] [address] [address] 9755 Nov, [place] [address] [place] [id number] [place] [address] 61949- 3651 Nov, [facility] [address], [place] [address] 6696 Nov, [place] [address] [place] [address] 95645- 6058 Nov, [facility] [address] [place] [address] 25935- 0673 Oct, [facility] [address] [place] [id number] [place] [address] 75594- 1437 Oct, [place] [address] [place] [id number] [place] [address] 28811- 6719 Oct, [facility] [address] [address]31- 1431 Oct, Well woman exam with routine gynecological exam Z01.419 ; Screen for STD (sexually transmitted disease) Z11.3 ; Screening breast examination Z12.31 ; Type 2 diabetes mellitus without complication, without long -term current use of insulin E11.9 ; Other obesity due to excess calories E66.09 and Body mass index (BMI) of 32.0-32.9 in adult Z68.32 [place] [address] [place] [id number] [place] [address] 86292- 2044 Oct, Ganglion of left wrist M67.432 [place] [address] [place] [address] [place] [address] 49618- 5405 Oct, [place] [address] [place] [id number] [place] [address] 25130- 7650 Oct, [facility] CARE [address] [place] [address] 42266 -0209 Oct, Ganglion cyst M67.40 [facility] [address] [place] [id number] [place] [address] 03269- 8372 Oct, [place] [address] [place] [address] 28035- 6471 Sep, [place] [address] [place] [id number] [place] [address] 94295- 9335 Sep, Major depressive disorder, recurrent episode, moderate F33.1 [place] [address] [place] [address] [place] [address] 72683- 0125 Sep, [facility] [address], [place] [address] 3647 Sep, Right renal mass N28.89 [facility] [address] [place] [address] 16738- 7436 Sep, [facility] [address] [place] [address] [place] [address] 65582- 6987 Sep, [facility] [address] [place] [address] [id number] [place] [address] 35655- 5703 Sep, Right renal mass N28.89 [facility] [address] [place] [id number] [place] [address] 44703- 6088 Sep, [facility] [address] [place] [address] [id number] [place] [address] 76265- 4840 Sep, [facility] [address] [place] [address] [id number] [place] [address] 74056- 7526 Sep, [facility] [address], [place] [address] 2879 Sep, [facility] [address] [place] [id number] [place] [address] 11331- 0785 Sep, [facility] [address], [place] [address] 5095 Sep, [facility] [address] [place] [address] 56129- 9124 Sep, Pulmonary nodule R91.1 [facility] [address], [place] [address] 4139 Aug, [facility] [address] [place] [address] 70698- 8164 Aug, Right renal mass N28.89 and Pulmonary nodule R91.1 [facility] [address], [place] [address] 1713 Aug, Essential hypertension I10 ; Right renal mass N28.89 ; Chronic gastric ulcer, unspecified whether gastric ulcer hemorrhage or perforation present K25.7 ; Spondylosis of cervical region without myelopathy or radiculopathy M47.812 ; 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 and Hospital discharge follow-up Z09 [place] [address] [place] [address] 66220- 7680 14 Aug, 2017 [place] [address] [place] [id number] [place] [address] 35783- 6391 09 Aug, 2017 [place] [address] [place] [id number] [place] [address] 43891- 9915 Aug, [place] [address] [place] [id number] [place] [address] 10765- 2650 Aug, Pain syndrome, chronic G89.4 ; Lumbago with sciatica, right side M54.41 ; Lumbago with sciatica, left side M54.42 ; Other chronic pain G89.29 ; Cervicalgia M54.2 ; Controlled substance agreement signed Z79.899 and Essential hypertension I10 [place] [address] [place] [id number] [place] [address] 31878- 5564 02 Aug, 2017 [place] [address] [place] [id number] [place] [address] 21404- 8749 26 Jul, 2017 Encounter to establish care [...] SOCIAL HISTORY Never Assessed REASON FOR VISIT Referral PLAN OF CARE VITAL SIGNS MEDICATIONS Unknown [...] polp removal/colonoscopy Hospitalization History heart attack x3 [phone] 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
--- OUTSIDE RECORDS SUMMARY | 2018-05-02 12:48 | XMS REPORT ---
Author Author PRISCILLA BLANCAS Organization [facility] Address [address] [place] [address] Care Team Providers Care Horse Race Starter Name Role Phone YONNY PRISCILLA Unavailable PROBLEMS Type Condition ICD9-CM Code WWT40-XS Code Onset Dates Condition Status SNOMED Code Problem Other obesity due to excess calories E66.09 Active 112470559 Problem Seasonal allergic rhinitis due to pollen J30.1 Active 19112765 Problem Major depressive disorder, recurrent episode, moderate F33.1 Active 604894121 Problem Hyperlipidemia, unspecified E78.5 Active 93605621 Problem Left kidney mass N28.89 Active 416328296 Problem Type 2 diabetes mellitus with other specified complication E11.69 Active 03423490536573 Problem Chronic esophagogastric ulcer K25.7 Active 64135173 Problem 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3 Active 351009981 Problem GERD without esophagitis K21.9 Active 972734538 Problem Renal cell carcinoma of left kidney C64.2 Active 566383353 Problem Metabolic disorder, unspecified E88.9 Active 894433697 Problem Essential hypertension I10 Active 23954393 Problem Type 2 diabetes mellitus without complication, without long-term current use of insulin E11.9 Active 101048300 Problem Lumbago with sciatica, left side M54.42 Active 404596206 Problem Lumbago with sciatica, right side M54.41 Active 726473838083156 Problem Right renal mass N28.89 Active 504811419 Problem Spondylosis of cervical region without myelopathy or radiculopathy M47.812 Active 115469188 Problem Pain syndrome, chronic G89.4 Active 319052675 Problem Pulmonary nodule R91.1 Active 639839231 Problem 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 Active 420125346 Problem Body mass index (BMI) of 32.0-32.9 in adult Z68.32 Active 125054863 ALLERGIES No Information ENCOUNTERS Encounter Location Date Diagnosis [place] [address] [place] [id number] [place] [address] 80208- 7802 Apr, [place] [address] [address] [place] [id number] [place] [address] 35648- 0154 Mar, Type 2 diabetes mellitus without complication, [...] specified complication E11.69 and Hyperlipidemia, unspecified E78.5 [facility] [place] [id number] [place] [address] 82197 -5612 Mar, Acute suppurative otitis media of both ears without spontaneous rupture of tympanic membranes, recurrence not specified H66.003 [place] [address] [place] [id number] [place] [address] 60195- 4521 Mar, [place] [address] [place] [id number] [place] [address] 26632- 4214 Mar, 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 [place] [address] [address] [place] [id number] [place] [address] 44613 -3833 Mar, Low back pain, unspecified back pain laterality, unspecified chronicity, with sciatica presence unspecified M54.5 and Type 2 diabetes mellitus without complication, without long-term current use of insulin E11.9 [place] [address] [place] [id number] [place] [address] 70822- 9549 February, [place] [address] [place] [id number] [place] [address] 31278- 2031 February, 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 [facility] [place] [address] [place] [address] [place] [address] 80553 -0871 February, Strain of neck muscle, initial encounter S16.1XXA [place] [address] 197[address]- 6210 February, Type 2 diabetes mellitus without complication, [...] Seasonal allergic rhinitis due to pollen J30.[address] 26715- 3438 February, Essential hypertension I10 ; 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 ; Body mass index (BMI) of 32.0-32.9 in adult Z68.32 and Type 2 diabetes mellitus without complication, without long-term current use of insulin E11.9 [place] [address] [place] [id number] [place] [address] 73313- 7807 February, Type 2 diabetes mellitus without complication, without long- term current use of insulin E11.9 [place] [address] [place] [id number] [place] [address] 25644- 3529 Jan, Lumbago with sciatica, right side M54.41 [facility] [address] [place] [id number] [place] [address] 12367 -3353 Jan, Sore throat J02.9 [place] [address] [place] [id number] [place] [address] 52432- 2964 Dec, [place] [address] [place] [id number] [place] [address] 21570- 9756 Dec, Type 2 diabetes mellitus without complication, without long- term current use of insulin E11.9 [facility] [address] [address]- 3822 Dec, [facility] [address] [place] [address] [place] [address] 62385- 3925 Dec, [facility] [address] [place] [id number] [place] [address] 15326- 4697 Dec, [facility] [address] [place] [id number] [place] [address] 81466- 8583 Dec, Type 2 diabetes mellitus without complication, [...] pollen J30.1 and GERD without esophagitis K21.9 [place] [address] [place] [id number] [place] [address] 38130- 8880 Dec, [place] [address] [place] [id number] [place] [address] 98973- 6238 Nov, [facility] [address] [place] [id number] [place] [address] 07564- 7957 Nov, [facility] [address] [place] [id number] [place] [address] 23188- 0927 Nov, [facility] [address] [place] [id number] [place] [address] 96938- 0173 Nov, [facility] [address] [place] [address] 23769- 4716 Oct, [facility] [address] [place] [id number] [place] [address] 22004- 6673 Oct, [place] [address] [place] [address] [place] [address] 22980- 6961 Oct, [facility] [address] 19525- 2753 Oct, Well woman exam with routine gynecological exam Z01.419 ; Screen for STD (sexually transmitted disease) Z11.3 ; Screening breast examination Z12.31 ; Type 2 diabetes mellitus without complication, without long -term current use of insulin E11.9 ; Other obesity due to excess calories E66.09 and Body mass index (BMI) of 32.0-32.9 in adult Z68.32 [place] [address] 35365- 4663 09 Oct, 2017 Ganglion of left wrist M67.432 [place] [address] 25723- 1338 Oct, [place] [address] 59328- 0268 Oct, [facility]ARE [address] 62415 -4028 Oct, Ganglion cyst M67.40 [place] [address] 73644- 8158 Oct, [place] [address] 12906- 6569 Sep, [place] [address] 40561- 4752 Sep, Major depressive disorder, recurrent episode, moderate F33.1 [place] [address] 77557- 0398 Sep, [place] [address] 21294- 7791 15 Sep, 2017 Right renal mass N28.89 [place] [address] 05011- 2661 Sep, [facility] [address] [address]- 5045 Sep, [facility] [address] [place] [id number] [place] [address] 51521- 6746 Sep, Right renal mass N28.89 [facility] [address] [place] [address] [place] [address] 87643- 2978 Sep, [facility] [address] [place] [address] [place] [address] 50813- 0769 Sep, [facility] [address] [place] [address] [place] [address] 47535- 1874 Sep, [facility] [address] [place] [address] [place] [address] 50615- 3674 Sep, [facility] [address] [place] [address] [place] [address] 45552- 2331 Sep, [facility] [address] [place] [address] [place] [address] 64823- 5373 Sep, [facility] [address] [place] [address] [place] [address] 62393- 7428 Sep, Pulmonary nodule R91.1 [facility] [address] [place] [id number] [place] [address] 83088- 8197 Aug, [facility] [address] [place] [address] 38353- 0868 Aug, Right renal mass N28.89 and Pulmonary nodule R91.1 [facility] [address] [place] [address] 80443- 4861 16 Aug, 2017 Essential hypertension I10 ; Right renal mass N28.89 ; Chronic gastric ulcer, unspecified whether gastric ulcer hemorrhage or perforation present K25.7 ; Spondylosis of cervical region without myelopathy or radiculopathy M47.812 ; 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 and Hospital discharge follow-up Z09 [facility] [address] [place] [address] [address]- 6446 Aug, [facility] [address] [address]- 0003 Aug, [facility] [address] [address]- 2177 Aug, [facility] [address] [place] [address] [address]- 0951 Aug, Pain syndrome, chronic G89.4 ; Lumbago with sciatica, right side M54.41 ; Lumbago with sciatica, left side M54.42 ; Other chronic pain G89.29 ; Cervicalgia M54.2 ; Controlled substance agreement signed Z79.899 and Essential hypertension I10 [facility] [address] [address]- 0945 Aug, [facility] [address] [address]- 0336 Jul, Encounter to establish care Z76.89 ; [...] SOCIAL HISTORY Never Assessed REASON FOR VISIT Requests return call PLAN OF CARE VITAL SIGNS MEDICATIONS Unknown [...] polp removal/colonoscopy Hospitalization History heart attack x3 [phone] 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
--- OUTSIDE RECORDS SUMMARY | 2018-05-02 12:48 | XMS REPORT ---
Author Author PRISCILLA BLANCAS Organization [facility] Address [address] [place] [address] Care Team Providers Care Senior Cytogenetic Technologist Name Role Phone YONNY PRISCILLA Unavailable PROBLEMS Type Condition ICD9-CM Code [id number] Code Onset Dates Condition Status SNOMED Code Problem Spondylosis of cervical region without myelopathy or radiculopathy M47.812 Active 093431502 Problem Body mass index (BMI) of 32.0-32.9 in adult Z68.32 Active 172823710 Problem Pulmonary nodule R91.1 Active 906611717 Problem Metabolic disorder, unspecified E88.9 Active 710164712 Problem 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3 Active 936051494 Problem Major depressive disorder, recurrent episode, moderate F33.1 Active 811137120 Problem Other obesity due to excess calories E66.09 Active 027659669 Problem GERD without esophagitis K21.9 Active 732721863 Problem Seasonal allergic rhinitis due to pollen J30.1 Active 55827348 Problem Chronic esophagogastric ulcer K25.7 Active 55743721 Problem Type 2 diabetes mellitus without complication, without long-term current use of insulin E11.9 Active 224802701 Problem Left kidney mass N28.89 Active 645378877 Problem Essential hypertension I10 Active 05933206 Problem Pain syndrome, chronic G89.4 Active 596470999 Problem Lumbago with sciatica, left side M54.42 Active 999669992 Problem Right renal mass N28.89 Active 655691913 Problem Lumbago with sciatica, right side M54.41 Active 309307039638353 Problem 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 Active 206530274 ALLERGIES No Information ENCOUNTERS Encounter Location Date Diagnosis [facility] [address] [facility] [id number] [address] Mar, [facility] [address] [id number] [address] February, [place] [address] [address] [place] [address] 41986- 6064 February, 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 [facility] [place] [address] [place] [address] 38679 -5465 February, Strain of neck muscle, initial encounter S16.1[place] [id number] [place] [address] 45444- 4575 February, Type 2 diabetes mellitus without complication, [...] Seasonal allergic rhinitis due to pollen J30.1 [address] [place] [address] 34214- 9405 February, Essential hypertension I10 ; 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 ; Body mass index (BMI) of 32.0-32.9 in adult Z68.32 and Type 2 diabetes mellitus without complication, without long-term current use of insulin E11.9 [place] [address] [place] [address] 95911- 3088 February, Type 2 diabetes mellitus without complication, without long- term current use of insulin E11.9 [place] [address] [place] [address] 29819- 8235 Jan, Lumbago with sciatica, right side M54.41 [facility] WALK IN [facility] [address] [place] [address] 74357 -9211 Jan, Sore throat J02.9 [place] [address] [id number] [address] Dec, [facility] [address] [place] [address] 76791- 7009 Dec, Type 2 diabetes mellitus without complication, without long- term current use of insulin E11.9 [place] [address] [place] [address] 44014- 2019 Dec, [place] [address] [place] [id number] [place] [address] 85570- 5426 Dec, [place] [address] [place] [address] 40491- 2396 Dec, [place] [address] [place] [id number] [place] [address] 48206- 6209 Dec, Type 2 diabetes mellitus without complication, [...] pollen J30.1 and GERD without esophagitis K21.9 [place] [address] [address] Dec, [place] [address] [address] Nov, [place] [address] [place] [id number] [place] [address] 29031- 3823 Nov, [facility] [address] [address] 89[address] Nov, [place] [address] [place] [address] 37958- 0742 Nov, [facility] [address] [place] [address] 46176- 8607 Oct, [facility] [address] [place] [id number] [place] [address] 29701- 7765 Oct, [place] [address] [place] [id number] [place] [address] 76532- 5238 Oct, [facility] [address] [address]89- 3125 Oct, Well woman exam with routine gynecological exam Z01.419 ; Screen for STD (sexually transmitted disease) Z11.3 ; Screening breast examination Z12.31 ; Type 2 diabetes mellitus without complication, without long -term current use of insulin E11.9 ; Other obesity due to excess calories E66.09 and Body mass index (BMI) of 32.0-32.9 in adult Z68.32 [place] [address] [place] [id number] [place] [address] 80071- 2641 Oct, Ganglion of left wrist M67.432 [place] [address] [place] [id number] [place] [address] 43469- 3593 Oct, [place] [address] [place] [id number] [place] [address] 54597- 7166 Oct, [facility]ARE [address] [place] [address] 81299 -2904 Oct, Ganglion cyst M67.40 [facility] [address] [place] [id number] [place] [address] 47515- 9147 Oct, [place] [address] [place] [address] 34639- 6794 Sep, [place] [address] [place] [id number] [place] [address] 33036- 3895 Sep, Major depressive disorder, recurrent episode, moderate F33.1 [place] [address] [place] [id number] [place] [address] 76509- 5428 Sep, [facility] [address] [address] 69[address] Sep, Right renal mass N28.89 [facility] [address] [place] [address] 49349- 4936 Sep, [facility] [address] [place] [id number] [place] [address] 96565- 7067 Sep, [facility] [address] [place] [address] [id number] [place] [address] 73015- 5241 Sep, Right renal mass N28.89 [facility] [address] [place] [address] [id number] [place] [address] 89934- 3486 Sep, [facility] [address] [place] [address] [id number] [place] [address] 30279- 5070 Sep, [facility] [address] [place] [address] [id number] [place] [address] 10106- 6941 Sep, [facility] [address], [place] [address] 9[address] Sep, [facility] [address] [place] [id number] [place] [address] 47780- 3171 Sep, [facility] [address], [place] [address] 1569 Sep, [facility] [address] [place] [address] 83424- 6650 Sep, Pulmonary nodule R91.1 [facility] [address] [address] 34[address] Aug, [facility] [address] [place] [address] 63916- 5491 Aug, Right renal mass N28.89 and Pulmonary nodule R91.1 [facility] [address], [place] [address] 6121 Aug, Essential hypertension I10 ; Right renal mass N28.89 ; Chronic gastric ulcer, unspecified whether gastric ulcer hemorrhage or perforation present K25.7 ; Spondylosis of cervical region without myelopathy or radiculopathy M47.812 ; 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 and Hospital discharge follow-up Z09 [place] [address] [place] [address] 65275- 6289 14 Aug, 2017 [place] [address] [place] [id number] [place] [address] 57442- 0684 Aug, [place] [address] [place] [id number] [place] [address] 37758- 7266 Aug, [place] [address] [place] [id number] [place] [address] 32547- 5610 Aug, Pain syndrome, chronic G89.4 ; Lumbago with sciatica, right side M54.41 ; Lumbago with sciatica, left side M54.42 ; Other chronic pain G89.29 ; Cervicalgia M54.2 ; Controlled substance agreement signed Z79.899 and Essential hypertension I10 [place] [address] [place] [id number] [place] [address] 67301- 2453 Aug, [place] [address] [place] [id number] [place] [address] 36995- 1525 26 Jul, 2017 Encounter to establish care [...] as needed 6h Oct, 28 days Active RESULTS No Results PROCEDURES [...] polp removal/colonoscopy Hospitalization History heart attack [phone] 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
--- OUTSIDE RECORDS SUMMARY | 2018-05-02 12:48 | XMS REPORT ---
Author Author DASIA CHEATHAM [facility] Address [address] [place] [id number] Care Team Providers Care Supervisor Solder Making Name Role Phone DASIA CHEATHAM Unavailable PROBLEMS Type Condition ICD9-CM Code EEA27-LU Code Onset Dates Condition Status SNOMED Code Problem Spondylosis of cervical region without myelopathy or radiculopathy M47.812 Active 679169347 Problem Body mass index (BMI) of 32.0-32.9 in adult Z68.32 Active 960425450 Problem Pulmonary nodule R91.1 Active 272030079 Problem Metabolic disorder, unspecified E88.9 Active 041245962 Problem 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3 Active 924675429 Problem Major depressive disorder, recurrent episode, moderate F33.1 Active 368884274 Problem Other obesity due to excess calories E66.09 Active 910721775 Problem GERD without esophagitis K21.9 Active 804297738 Problem Seasonal allergic rhinitis due to pollen J30.1 Active 18049026 Problem Chronic esophagogastric ulcer K25.7 Active 38883985 Problem Type 2 diabetes mellitus without complication, without long-term current use of insulin E11.9 Active 760924426 Problem Left kidney mass N28.89 Active 949752495 Problem Essential hypertension I10 Active 87967196 Problem Pain syndrome, chronic G89.4 Active 682727636 Problem Lumbago with sciatica, left side M54.42 Active 270823325 Problem Right renal mass N28.89 Active 084467849 Problem Lumbago with sciatica, right side M54.41 Active 491909126038772 Problem 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 Active 484734225 ALLERGIES No Information ENCOUNTERS Encounter Location Date Diagnosis [facility] [address] [facility] [id number] [address] Mar, [facility] [address] [place] [id number] [address] February, [place] [address] [address]- 3046 February, 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 [facility] IN [place] [address] [place] [id number] [address] February, Strain of neck muscle, initial encounter S16.[address] [id number] [place] [address] 30209- 3446 February, Type 2 diabetes mellitus without complication, [...] Seasonal allergic rhinitis due to pollen J30.[address] [place] [address] 59511- 8249 February, Essential hypertension I10 ; 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 ; Body mass index (BMI) of 32.0-32.9 in adult Z68.32 and Type 2 diabetes mellitus without complication, without long-term current use of insulin E11.9 [place] [address] [place] [address] 23433- 8986 February, Type 2 diabetes mellitus without complication, without long- term current use of insulin E11.9 [place] [address] [place] [address] 32561- 4785 Jan, Lumbago with sciatica, right side M54.41 [facility] WALK IN [facility] [address] [address] Jan, Sore throat J02.9 [place] [address] [place] [id number] [address] 9649 Dec, [facility] [id number] [place] [address] 80405- 2699 Dec, Type 2 diabetes mellitus without complication, without long- term current use of insulin E11.9 [facility] [address] [place] [address] 99002- 3103 14 Dec, 2017 [facility] [address] [place] [id number] [place] [address] 14175- 4248 Dec, [place] [address] [place] [id number] [place] [address] 61217- 7524 Dec, [place] [address] [place] [id number] [place] [address] 81310- 0024 Dec, Type 2 diabetes mellitus without complication, [...] pollen J30.1 and GERD without esophagitis K21.9 [place] [address] [address]- 7117 Dec, [place] [address] [address]- 7906 Nov, [place] [address] [place] [id number] [place] [address] 13447- 5814 Nov, [facility] [address] [address]- 3617 Nov, [place] [address] [place] [address] 13453- 8662 Nov, [facility] [address] [address]- 0987 Oct, [facility] [address] [place] [id number] [place] [address] 92547- 8138 Oct, [place] [address] [place] [id number] [place] [address] 72231- 7180 Oct, [facility] [address] [place] [id number] [place] [address] 22622- 8041 Oct, Well woman exam with routine gynecological exam Z01.419 ; Screen for STD (sexually transmitted disease) Z11.3 ; Screening breast examination Z12.31 ; Type 2 diabetes mellitus without complication, without long -term current use of insulin E11.9 ; Other obesity due to excess calories E66.09 and Body mass index (BMI) of 32.0-32.9 in adult Z68.32 [place] [address] [place] [id number] [place] [address] 91687- 8153 Oct, Ganglion of left wrist M67.432 [place] [address] [place] [id number] [place] [address] 61885- 6113 Oct, [place] [address] [place] [id number] [place] [address] 92919- 5821 Oct, [facility] IN CARE [address] [place] [address] 59376 -7709 Oct, Ganglion cyst M67.40 [facility] [address] [place] [id number] [place] [address] 31022- 8250 Oct, [place] [address] [place] [address] 81488- 2351 Sep, [place] [address] [place] [id number] [place] [address] 12718- 5627 Sep, Major depressive disorder, recurrent episode, moderate F33.1 [place] [address] [place] [id number] [place] [address] 00034- 7064 Sep, [facility] [address] [address]- 5376 Sep, Right renal mass N28.89 [facility] [address] [place] [id number] [place] [address] 19699- 2946 Sep, [facility] [address] [place] [id number] [place] [address] 83569- 6576 Sep, [facility] [address] [place] [id number] [place] [address] 83557- 0943 Sep, Right renal mass N28.89 [facility] [address] [place] [id number] [place] [address] 43574- 3719 Sep, [facility] [address] [place] [id number] [place] [address] 72662- 3172 Sep, [facility] [address] [place] [id number] [place] [address] 07082- 8618 Sep, [facility] [address] [address]- 4010 Sep, [facility] [address] [place] [address] 10573- 3848 Sep, [facility] [address] [address]- 5532 Sep, [facility] [address] [place] [address] 62061- 3574 Sep, Pulmonary nodule R91.1 [facility] [address] [address]- 7392 Aug, [facility] [address] [place] [address] 50478- 9320 Aug, Right renal mass N28.89 and Pul[address]ule R91.1 [facility] [address] [address]- 3[address] Aug, Essential hypertension I10 ; Right renal mass N28.89 ; Chronic gastric ulcer, unspecified whether gastric ulcer hemorrhage or perforation present K25.7 ; Spondylosis of cervical region without myelopathy or radiculopathy M47.812 ; 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 and Hospital discharge follow-up Z09 [place] [address] [place] [address] 37040- 9871 14 Aug, 2017 [place] [address] [place] [id number] [place] [address] 81401- 2280 09 Aug, 2017 [place] [address] [place] [id number] [place] [address] 32358- 9177 Aug, [place] [address] [place] [id number] [place] [address] 10317- 3721 Aug, Pain syndrome, chronic G89.4 ; Lumbago with sciatica, right side M54.41 ; Lumbago with sciatica, left side M54.42 ; Other chronic pain G89.29 ; Cervicalgia M54.2 ; Controlled substance agreement signed Z79.899 and Essential hypertension I10 [place] [address] [place] [id number] [place] [address] 59914- 7542 02 Aug, 2017 [place] [address] [place] [id number] [place] [address] 04570- 4002 26 Jul, 2017 Encounter to establish care [...] SOCIAL HISTORY Never Assessed REASON FOR VISIT Nitrolingual spray note PLAN OF CARE VITAL SIGNS MEDICATIONS Unknown [...] polp removal/colonoscopy Hospitalization History heart attack x3 [id number] 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
--- OUTSIDE RECORDS SUMMARY | 2018-05-02 12:49 | XMS REPORT ---
Author Author PRISCILLA BLANCAS Organization [facility] Address [address] [place] [address] Care Team Providers Care Gas Main Fitter Helper Name Role Phone YONNY PRISCILLA Unavailable PROBLEMS Type Condition ICD9-CM Code JBM44-AT Code Onset Dates Condition Status SNOMED Code Problem Spondylosis of cervical region without myelopathy or radiculopathy M47.812 Active 474271556 Problem Body mass index (BMI) of 32.0-32.9 in adult Z68.32 Active 737962352 Problem Pulmonary nodule R91.1 Active 757752362 Problem Metabolic disorder, unspecified E88.9 Active 701080117 Problem 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3 Active 374419420 Problem Major depressive disorder, recurrent episode, moderate F33.1 Active 361472551 Problem Other obesity due to excess calories E66.09 Active 289413741 Problem GERD without esophagitis K21.9 Active 069086041 Problem Seasonal allergic rhinitis due to pollen J30.1 Active 24684947 Problem Chronic esophagogastric ulcer K25.7 Active 88589840 Problem Type 2 diabetes mellitus without complication, without long-term current use of insulin E11.9 Active 305825870 Problem Left kidney mass N28.89 Active 380733636 Problem Essential hypertension I10 Active 65394520 Problem Pain syndrome, chronic G89.4 Active 534937048 Problem Lumbago with sciatica, left side M54.42 Active 023555371 Problem Right renal mass N28.89 Active 813956446 Problem Lumbago with sciatica, right side M54.41 Active 853866930019362 Problem 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 Active 392060724 ALLERGIES No Information ENCOUNTERS Encounter Location Date Diagnosis [facility] [address] [facility] [id number] [address] Mar, [facility] [address] [place] [id number] [address] February, [place] [id number] [place] [address] 30191- 3014 February, 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 [facility] [place] [id number] [place] [address] 69599 -9735 February, Strain of neck muscle, initial encounter S16.1XXA [place] [id number] [place] [address] 75431- 2725 February, Type 2 diabetes mellitus without complication, [...] Seasonal allergic rhinitis due to pollen J30.1 [address] [place] [address] 10064- 6611 February, Essential hypertension I10 ; 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 ; Body mass index (BMI) of 32.0-32.9 in adult Z68.32 and Type 2 diabetes mellitus without complication, without long-term current use of insulin E11.9 [place] [id number] [place] [address] 41216- 8079 February, Type 2 diabetes mellitus without complication, without long- term current use of insulin E11.9 [place] [id number] [place] [address] 78926- 2613 Jan, Lumbago with sciatica, right side M54.41 [facility] IN [facility] [id number] [place] [address] 34731 -6071 Jan, Sore throat J02.9 [place] [address] [id number] [address] Dec, [facility] [id number] [place] [address] 88027- 3927 Dec, Type 2 diabetes mellitus without complication, without long- term current use of insulin E11.9 [place] [id number] [place] [address] 98840- 6505 Dec, [place] [address] [place] [id number] [place] [address] 17225- 8977 Dec, [place] [id number] [place] [address] 17465- 4103 Dec, [place] [address] [place] [id number] [place] [address] 31417- 7274 Dec, Type 2 diabetes mellitus without complication, [...] pollen J30.1 and GERD without esophagitis K21.9 [place] [address] [address] 0[address] Dec, [place] [address] [address] 7832 Nov, [place] [address] [place] [id number] [place] [address] 64467- 1651 Nov, [facility] [address] [address]24 Nov, [place] [id number] [place] [address] 50160- 9682 Nov, [facility] [id number] [place] [address] 54142- 6532 Oct, [facility] [address] [place] [id number] [place] [address] 06235- 2522 Oct, [place] [address] [place] [id number] [place] [address] 04796- 3547 Oct, [facility] [address] [address]- 8[address] Oct, Well woman exam with routine gynecological exam Z01.419 ; Screen for STD (sexually transmitted disease) Z11.3 ; Screening breast examination Z12.31 ; Type 2 diabetes mellitus without complication, without long -term current use of insulin E11.9 ; Other obesity due to excess calories E66.09 and Body mass index (BMI) of 32.0-32.9 in adult Z68.32 [place] [address] [place] [id number] [place] [address] 18057- 4794 Oct, Ganglion of left wrist M67.432 [place] [address] [place] [id number] [place] [address] 46003- 0914 Oct, [place] [address] [place] [id number] [place] [address] 36567- 3740 Oct, [facility] [id number] [place] [address] 75691 -2645 Oct, Ganglion cyst M67.40 [facility] [address] [place] [id number] [place] [address] 01450- 1150 Oct, [place] [id number] [place] [address] 52912- 0611 Sep, [place] [address] [place] [id number] [place] [address] 14097- 2502 Sep, Major depressive disorder, recurrent episode, moderate F33.1 [place] [address] [place] [id number] [place] [address] 34020- 9330 Sep, [facility] [address] [address] 2523 Sep, Right renal mass N28.89 [facility] [id number] [place] [address] 48979- 6116 Sep, [facility] [address] [place] [id number] [place] [address] 92338- 1711 Sep, [facility] [address] [place] [id number] [place] [address] 84673- 0519 Sep, Right renal mass N28.89 [facility] [address] [place] [id number] [place] [address] 59082- 8297 Sep, [facility] [address] [place] [id number] [place] [address] 48072- 4756 Sep, [facility] [address] [place] [id number] [place] [address] 64062- 4139 Sep, [facility] [address] [address] 6222 Sep, [facility] [address] [place] [id number] [place] [address] 59969- 9232 Sep, [facility] [address] [address] 2741 Sep, [facility] [id number] [place] [address] 31650- 2090 Sep, Pulmonary nodule R91.1 [facility] [address] [address] 2856 Aug, [facility] [id number] [place] [address] 56473- 7496 Aug, Right renal mass N28.89 and Pulmonary nodule R91.1 [facility] [address] [address] 0941 Aug, Essential hypertension I10 ; Right renal mass N28.89 ; Chronic gastric ulcer, unspecified whether gastric ulcer hemorrhage or perforation present K25.7 ; Spondylosis of cervical region without myelopathy or radiculopathy M47.812 ; 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 and Hospital discharge follow-up Z09 [place] [id number] [place] [address] 38603- 7474 14 Aug, 2017 [place] [address] [place] [id number] [place] [address] 36597- 9278 09 Aug, 2017 [place] [address] [place] [id number] [place] [address] 23471- 6905 Aug, [place] [address] [place] [id number] [place] [address] 90221- 1887 Aug, Pain syndrome, chronic G89.4 ; Lumbago with sciatica, right side M54.41 ; Lumbago with sciatica, left side M54.42 ; Other chronic pain G89.29 ; Cervicalgia M54.2 ; Controlled substance agreement signed Z79.899 and Essential hypertension I10 [place] [address] [place] [id number] [place] [address] 34777- 3068 02 Aug, 2017 [place] [address] [place] [id number] [place] [address] 35528- 3003 26 Jul, 2017 Encounter to establish care [...] SOCIAL HISTORY Never Assessed REASON FOR VISIT PA for CT Abd/Pelvis with & without PLAN OF CARE VITAL SIGNS MEDICATIONS Unknown [...] polp removal/colonoscopy Hospitalization History heart attack x3 [phone] 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
--- OUTSIDE RECORDS SUMMARY | 2018-05-02 12:49 | XMS REPORT ---
Author Author BLANCASNADER YeeELE Organization [facility] Address [address] [place] [address] Care Team Providers Care Head Lineman Name Role Phone BLANCASPRISCILLA Yee Unavailable PROBLEMS Type Condition ICD9-CM Code PTT07-OS Code Onset Dates Condition Status SNOMED Code Problem Spondylosis of cervical region without myelopathy or radiculopathy M47.812 Active 538321244 Problem Body mass index (BMI) of 32.0-32.9 in adult Z68.32 Active 279160667 Problem Pulmonary nodule R91.1 Active 056231494 Problem Metabolic disorder, unspecified E88.9 Active 390736906 Problem 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3 Active 695319011 Problem Major depressive disorder, recurrent episode, moderate F33.1 Active 356238260 Problem Other obesity due to excess calories E66.09 Active 239880976 Problem GERD without esophagitis K21.9 Active 035793425 Problem Seasonal allergic rhinitis due to pollen J30.1 Active 13078577 Problem Chronic esophagogastric ulcer K25.7 Active 77029973 Problem Type 2 diabetes mellitus without complication, without long-term current use of insulin E11.9 Active 493111637 Problem Left kidney mass N28.89 Active 834053972 Problem Essential hypertension I10 Active 05715824 Problem Pain syndrome, chronic G89.4 Active 784903954 Problem Lumbago with sciatica, left side M54.42 Active 169630304 Problem Right renal mass N28.89 Active 032229137 Problem Lumbago with sciatica, right side M54.41 Active 541260961391815 Problem 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 Active 627810060 ALLERGIES Substance Reaction Event Type Date Status Hydrocodone-Acetaminophen anaphylaxis Drug Allergy Sep, Active Feldene cintron's palsy Drug Allergy Sep, Active Doxycycline Monohydrate anaphylaxis Drug Allergy Sep, Active ENCOUNTERS Encounter Location Date Diagnosis [facility] [address] [address] Mar, [place] [address] [place] [id number] [place] [address] 10125- 7076 February, [place] [address] [place] [id number] [place] [address] 13250- 1370 February, 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 [facility] [place] [id number] [place] [address] 76338 -6662 February, Strain of neck muscle, initial encounter S16.1XXA [place] [address] [place] [id number] [place] [address] 71142- 6509 February, Type 2 diabetes mellitus without complication, [...] Seasonal allergic rhinitis due to pollen J30.1 [place] [address] [place] [address] 97786- 3998 February, Essential hypertension I10 ; 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 ; Body mass index (BMI) of 32.0-32.9 in adult Z68.32 and Type 2 diabetes mellitus without complication, without long-term current use of insulin E11.9 [place] [address] [place] [address] 22365- 3832 February, Type 2 diabetes mellitus without complication, without long- term current use of insulin E11.9 [place] [address] [place] [address] 58453- 8760 Jan, Lumbago with sciatica, right side M54.41 [facility] [address] [address] Jan, Sore throat J02.9 [facility] [id number] [place] [address] 16808- 6727 19 Dec, 2017 [facility] [address] [place] [address] 04723- 7969 19 Dec, 2017 Type 2 diabetes mellitus without complication, without long- term current use of insulin E11.9 [facility] [address] [place] [id number] [address]- 0852 14 Dec, 2017 [facility] [address] [place] [id number] [place] [address] 26578- 0767 14 Dec, 2017 [facility] [address] [place] [id number] [place] [address] 03912- 6843 Dec, [place] [address] [place] [id number] [place] [address] 57803- 6485 Dec, Type 2 diabetes mellitus without complication, [...] J30.1 and GERD without esophagitis K21.9 [facility] [address], [place] [address]- 3892 Dec, [facility] [address] [place] [id number] [address]- 0662 Nov, [facility] [address], [place] [address]- 3743 Nov, [facility] [address] [place] [id number] [place] [address] 10753- 4261 Nov, [place] [address] [place] [id number] [place] [address] 02840- 8750 Nov, [place] [address] [place] [id number] [place] [address] 47867- 3175 Oct, [place] [address] [place] [id number] [place] [address] 01246- 3945 Oct, [place] [address] [place] [id number] [place] [address] 75925- 1894 Oct, [place] [address] [place] [id number] [place] [address] 45330- 1785 Oct, Well woman exam with routine gynecological exam Z01.419 ; Screen for STD (sexually transmitted disease) Z11.3 ; Screening breast examination Z12.31 ; Type 2 diabetes mellitus without complication, without long -term current use of insulin E11.9 ; Other obesity due to excess calories E66.09 and Body mass index (BMI) of 32.0-32.9 in adult Z68.32 [place] [address] [place] [id number] [place] [address] 45392- 2182 Oct, Ganglion of left wrist M67.432 [place] [address] [place] [id number] [place] [address] 18502- 6085 Oct, [place] [address] [place] [address] 70457- 4664 Oct, [facility] [address] [place] [address] 45358 -0882 Oct, Ganglion cyst M67.40 [place] [address] [place] [id number] [place] [address] 26926- 4913 Oct, [place] [address] [place] [address] 47111- 1720 Sep, [place] [address] [place] [address] 85534- 3900 Sep, Major depressive disorder, recurrent episode, moderate F33.1 [facility] [address] [place] [id number] [place] [address], [place] [address]- 9990 Sep, [facility] [address] [place] [id number] [place] [address] 32146- 3286 Sep, Right renal mass N28.89 [facility] [address] [place] [id number] [place] [address] 11022- 6542 Sep, [facility] [address] [place] [id number] [place] [address] 93137- 1359 Sep, [facility] [address] [place] [id number] [place] [address] 82277- 3186 Sep, Right renal mass N28.89 [facility] [address] [place] [id number] [place] [address] 03178- 0784 Sep, [facility] [address] [place] [id number] [place] [address] 67602- 1545 Sep, [facility] [address] [place] [id number] [place] [address] 25067- 5879 Sep, [facility] [address] [place] [id number] [place] [address] 01327- 2423 Sep, [facility] [address] [place] [id number] [place] [address] 08100- 6548 Sep, [facility] [address] [place] [id number] [place] [address] 15194- 7417 Sep, [facility] [address] [place] [address] 79424- 3652 Sep, Pulmonary nodule R91.1 [facility] [address] [place] [id number] [place] [address] 98047- 4197 Aug, [facility] [address] [place] [id number] [place] [address] 55153- 7673 Aug, Right renal mass N28.89 and Pulmonary nodule R91.1 [facility] [address] [place] [id number] [place] [address] 74118- 3344 16 Aug, 2017 Essential hypertension I10 ; Right renal mass N28.89 ; Chronic gastric ulcer, unspecified whether gastric ulcer hemorrhage or perforation present K25.7 ; Spondylosis of cervical region without myelopathy or radiculopathy M47.812 ; 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 and Hospital discharge follow-up Z09 [place] [address] 90980- 1124 14 Aug, 2017 [place] [address] 84041- 2731 09 Aug, 2017 [place] [address] 60346- 3898 Aug, [place] [address] 71488- 2890 Aug, Pain syndrome, chronic G89.4 ; Lumbago with sciatica, right side M54.41 ; Lumbago with sciatica, left side M54.42 ; Other chronic pain G89.29 ; Cervicalgia M54.2 ; Controlled substance agreement signed Z79.899 and Essential hypertension I10 [place] [address] 37359- 4815 02 Aug, 2017 [place] [address] [place] [id number] [place] [address] 75516- 8925 Jul, Encounter to establish care Z76.89 ; [...] SOCIAL HISTORY Never Assessed REASON FOR VISIT CT f/u -- toma valadez PLAN OF CARE Activity Details Follow Up prn Reason: VITAL SIGNS Height 68 in 2017-10-01 Weight 215.0 lbs 2017-10-01 Temperature 98.7 degrees Fahrenheit 2017-10-01 Heart Rate 78 bpm 2017-10-01 Respiratory Rate 20 2017-10-01 BMI 32.69 kg/m2 2017-10-01 Blood pressure systolic 142 mmHg 2017-10-01 Blood pressure diastolic 78 mmHg 2017-10-01 MEDICATIONS Medication Instructions Dosage Frequency Start Date End Date Duration Status Oxycodone-Acetaminophen 7.5-325 MG Orally every 6 hrs 1 tablet as needed 6h Sep, Oct, 28 days Active Aspirin 81 MG Orally Once a day 1 tablet 24h Active Fish Oil 1000 MG Orally twice a day 1 capsule 12h Active Valium 5 mg Orally once 30 minutes prior to scan- february repeat x 1 5mg tablet if needed Aug, 1 days Active Metoprolol Tartrate 100 MG Orally Twice a day 1 tablet with food 12h 30 Active Januvia 100 mg Orally Once a day 1 tablet 24h 30 Active Tizanidine HCl 4 MG Orally Three times a day 1 capsule as needed 8h 30 Active Sucralfate 1 GM Orally 4 times a day 1 tablet at bedtime on an empty stomach before meals 6h 30 days Active Dexilant 60 mg Orally Once a day 1 capsule 24h 16 Aug, 2017 90 days Active Lipitor 10 mg Orally Once a day 1 tablet 24h 30 Active Clopidogrel Bisulfate 75 MG Orally Once a day 1 tablet 24h Active Lisinopril 20 mg Orally twice a day 1 tablet 12h 30 Active Pioglitazone HCl-Metformin HCl 15-500 MG Orally Once a day 1 tablet with a meal 24h 30 Active RESULTS No Results PROCEDURES No Known [...] polp removal/colonoscopy Hospitalization History heart attack x3 1426-7515 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
--- OUTSIDE RECORDS SUMMARY | 2018-05-02 12:49 | XMS REPORT ---
Author Author PRISCILLA BLANCAS Organization [facility] Address [address] [place] [address] Care Team Providers Care Scrubber Operator Name Role Phone YONNY PRISCILLA Unavailable PROBLEMS Type Condition ICD9-CM Code AIL31-XM Code Onset Dates Condition Status SNOMED Code Problem Spondylosis of cervical region without myelopathy or radiculopathy M47.812 Active 335706304 Problem Body mass index (BMI) of 32.0-32.9 in adult Z68.32 Active 793488030 Problem Pulmonary nodule R91.1 Active 330601794 Problem Metabolic disorder, unspecified E88.9 Active 226201470 Problem 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3 Active 149077676 Problem Major depressive disorder, recurrent episode, moderate F33.1 Active 752465295 Problem Other obesity due to excess calories E66.09 Active 166718358 Problem GERD without esophagitis K21.9 Active 258407036 Problem Seasonal allergic rhinitis due to pollen J30.1 Active 24183398 Problem Chronic esophagogastric ulcer K25.7 Active 93565771 Problem Type 2 diabetes mellitus without complication, without long-term current use of insulin E11.9 Active 362995145 Problem Left kidney mass N28.89 Active 215694647 Problem Essential hypertension I10 Active 13286897 Problem Pain syndrome, chronic G89.4 Active 591076482 Problem Lumbago with sciatica, left side M54.42 Active 425248727 Problem Right renal mass N28.89 Active 490692233 Problem Lumbago with sciatica, right side M54.41 Active 923681329619697 Problem 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 Active 483587590 ALLERGIES No Information ENCOUNTERS Encounter Location Date Diagnosis [facility] [address] [facility] [id number] [address] Mar, [facility] [address] [place] [id number] [address] February, [place] [address] [place] [address] 48253- 5621 February, 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 [facility] [place] [address] [address] [place] [address] 12971 -3667 February, Strain of neck muscle, initial encounter S16.1[place]A [place] [id number] [place] [address] 85649- 2999 February, Type 2 diabetes mellitus without complication, [...] Seasonal allergic rhinitis due to pollen J30.1 [address] [place] [address] 17870- 0606 February, Essential hypertension I10 ; 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 ; Body mass index (BMI) of 32.0-32.9 in adult Z68.32 and Type 2 diabetes mellitus without complication, without long-term current use of insulin E11.9 [place] [address] [place] [address] 98410- 3801 February, Type 2 diabetes mellitus without complication, without long- term current use of insulin E11.9 [place] [address] [place] [address] 06475- 5068 Jan, Lumbago with sciatica, right side M54.41 [facility] [address] [place] [address] 85079 -8488 Jan, Sore throat J02.9 [place] [address] [id number] [address]66 Dec, [facility] [address] [place] [address] 12823- 4139 Dec, Type 2 diabetes mellitus without complication, without long- term current use of insulin E11.9 [place] [address] [place] [address] 58548- 9531 Dec, [place] [address] [place] [id number] [place] [address] 50477- 5625 Dec, [place] [address] [place] [address] 59777- 5494 Dec, [place] [address] [place] [id number] [place] [address] 68527- 1134 Dec, Type 2 diabetes mellitus without complication, [...] pollen J30.1 and GERD without esophagitis K21.9 [place] [address] [address] 120[address] Dec, [place] [address], [place] [address] 9354 Nov, [place] [address] [place] [id number] [place] [address] 95808- 0079 Nov, [facility] [address], [place] [address] 5[address] Nov, [place] [address] [place] [address] 63134- 2429 Nov, [facility] [address] [place] [address] 40944- 1968 Oct, [facility] [address] [place] [id number] [place] [address] 14584- 1649 Oct, [place] [address] [place] [id number] [place] [address] 88542- 7539 Oct, [facility] [address] [address]- [address] Oct, Well woman exam with routine gynecological exam Z01.419 ; Screen for STD (sexually transmitted disease) Z11.3 ; Screening breast examination Z12.31 ; Type 2 diabetes mellitus without complication, without long -term current use of insulin E11.9 ; Other obesity due to excess calories E66.09 and Body mass index (BMI) of 32.0-32.9 in adult Z68.32 [place] [address] [place] [id number] [place] [address] 61655- 2499 Oct, Ganglion of left wrist M67.432 [place] [address] [place] [id number] [place] [address] 73907- 6983 Oct, [place] [address] [place] [id number] [place] [address] 96338- 3018 Oct, [facility] [address] [place] [address] 13867 -4324 Oct, Ganglion cyst M67.40 [facility] [address] [place] [id number] [place] [address] 40848- 4976 Oct, [place] [address] [place] [address] 20287- 9705 Sep, [place] [address] [place] [id number] [place] [address] 23448- 2760 Sep, Major depressive disorder, recurrent episode, moderate F33.1 [place] [address] [place] [id number] [place] [address] 61720- 8029 Sep, [facility] [address], [place] [address] 5747 Sep, Right renal mass N28.89 [facility] [address] [place] [address] 30722- 6596 Sep, [facility] [address] [place] [id number] [place] [address] 31426- 3228 Sep, [facility] [address] [place] [id number] [place] [address] 89466- 4944 Sep, Right renal mass N28.89 [facility] [address] [place] [id number] [place] [address] 94264- 9471 Sep, [facility] [address] [place] [id number] [place] [address] 38644- 5960 Sep, [facility] [address] [place] [id number] [place] [address] 37892- 3632 Sep, [facility] [address], [place] [address] 5089 Sep, [facility] [address] [place] [id number] [place] [address] 28740- 5636 Sep, [facility] [address], [place] [address] 4045 Sep, [facility] [address] [place] [address] 73089- 0739 Sep, Pulmonary nodule R91.1 [facility] [address], [place] [address] 7190 Aug, [facility] [address] [place] [address] 29893- 0647 Aug, Right renal mass N28.89 and Pulmonary nodule R91.1 [facility] [address], [place] [address] 2285 Aug, Essential hypertension I10 ; Right renal mass N28.89 ; Chronic gastric ulcer, unspecified whether gastric ulcer hemorrhage or perforation present K25.7 ; Spondylosis of cervical region without myelopathy or radiculopathy M47.812 ; 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 and Hospital discharge follow-up Z09 [place] [address] [place] [address] 97019- 2048 14 Aug, 2017 [place] [address] [place] [id number] [place] [address] 31464- 1494 09 Aug, 2017 [place] [address] [place] [id number] [place] [address] 08587- 1006 Aug, [place] [address] [place] [id number] [place] [address] 47806- 0776 Aug, Pain syndrome, chronic G89.4 ; Lumbago with sciatica, right side M54.41 ; Lumbago with sciatica, left side M54.42 ; Other chronic pain G89.29 ; Cervicalgia M54.2 ; Controlled substance agreement signed Z79.899 and Essential hypertension I10 [place] [address] [place] [id number] [place] [address] 14378- 2723 02 Aug, 2017 [place] [address] [place] [id number] [place] [address] 83338- 9567 26 Jul, 2017 Encounter to establish care [...] SOCIAL HISTORY Never Assessed REASON FOR VISIT PLAN OF CARE VITAL SIGNS MEDICATIONS Unknown [...] polp removal/colonoscopy Hospitalization History heart attack x3 8810-1320 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
--- OUTSIDE RECORDS SUMMARY | 2018-05-02 12:49 | XMS REPORT ---
Author Author PRISCILLA BLANCAS Organization [facility] Address [address] [place] [address] Care Team Providers Care Meat And Poultry Inspector Name Role Phone YONNY PRISCILLA Unavailable PROBLEMS Type Condition ICD9-CM Code BFY90-DA Code Onset Dates Condition Status SNOMED Code Problem Spondylosis of cervical region without myelopathy or radiculopathy M47.812 Active 824872043 Problem Body mass index (BMI) of 32.0-32.9 in adult Z68.32 Active 727780413 Problem Pulmonary nodule R91.1 Active 364510293 Problem Metabolic disorder, unspecified E88.9 Active 482910344 Problem 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3 Active 363189242 Problem Major depressive disorder, recurrent episode, moderate F33.1 Active 606546442 Problem Other obesity due to excess calories E66.09 Active 848279538 Problem GERD without esophagitis K21.9 Active 847419216 Problem Seasonal allergic rhinitis due to pollen J30.1 Active 19972206 Problem Chronic esophagogastric ulcer K25.7 Active 91972658 Problem Type 2 diabetes mellitus without complication, without long-term current use of insulin E11.9 Active 224203489 Problem Left kidney mass N28.89 Active 975900358 Problem Essential hypertension I10 Active 18226417 Problem Pain syndrome, chronic G89.4 Active 020063063 Problem Lumbago with sciatica, left side M54.42 Active 262033423 Problem Right renal mass N28.89 Active 650300187 Problem Lumbago with sciatica, right side M54.41 Active 010073768005756 Problem 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 Active 831620582 ALLERGIES No Information ENCOUNTERS Encounter Location Date Diagnosis [facility] [address] [facility] [id number] [address] Mar, [facility] [address] [place] [id number], [place] [address] 9031 February, [place] [address] [address] [place] [address] 12232- 7870 February, 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 [facility] IN [place] [address] [address] [place] [address] 54390 -2529 February, Strain of neck muscle, initial encounter S16.1XXA [place] [id number] [place] [address] 76936- 4052 February, Type 2 diabetes mellitus without complication, [...] Seasonal allergic rhinitis due to pollen J30.1 [address] [place] [address] 35690- 8374 February, Essential hypertension I10 ; 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 ; Body mass index (BMI) of 32.0-32.9 in adult Z68.32 and Type 2 diabetes mellitus without complication, without long-term current use of insulin E11.9 [place] [address] [place] [address] 07811- 6797 February, Type 2 diabetes mellitus without complication, without long- term current use of insulin E11.9 [place] [id number] [place] [address] 03787- 1160 Jan, Lumbago with sciatica, right side M54.41 [facility] WALK IN [facility] [address] [place] [address] 16777 -5226 Jan, Sore throat J02.9 [place] [address] [id number], [place] [address]- 4790 Dec, [facility] [id number] [place] [address] 85945- 6245 Dec, Type 2 diabetes mellitus without complication, without long- term current use of insulin E11.9 [place] [id number] [place] [address] 33292- 4395 Dec, [place] [address] [place] [id number] [place] [address] 79677- 3250 Dec, [place] [id number] [place] [address] 56378- 0943 Dec, [place] [address] [place] [id number] [place] [address] 31504- 1615 Dec, Type 2 diabetes mellitus without complication, [...] pollen J30.1 and GERD without esophagitis K21.9 [place] [address], [place] [address]- 7930 Dec, [place] [address], [place] [address]- 5477 Nov, [place] [address] [place] [id number] [place] [address] 37894- 9121 Nov, [facility] [address], [place] [address]- 6626 Nov, [place] [id number] [place] [address] 35877- 1614 Nov, [facility] [address] [place] [address] 79955- 5049 Oct, [facility] [address] [place] [id number] [place] [address] 01372- 8894 Oct, [place] [address] [place] [id number] [place] [address] 02466- 5214 Oct, [facility] [address] [address]80- 4695 Oct, Well woman exam with routine gynecological exam Z01.419 ; Screen for STD (sexually transmitted disease) Z11.3 ; Screening breast examination Z12.31 ; Type 2 diabetes mellitus without complication, without long -term current use of insulin E11.9 ; Other obesity due to excess calories E66.09 and Body mass index (BMI) of 32.0-32.9 in adult Z68.32 [place] [address] [place] [id number] [place] [address] 00769- 5324 Oct, Ganglion of left wrist M67.432 [place] [address] [place] [id number] [place] [address] 88829- 6098 Oct, [place] [address] [place] [id number] [place] [address] 88055- 4608 Oct, [facility] [id number] [place] [address] 65572 -6890 Oct, Ganglion cyst M67.40 [facility] [address] [place] [id number] [place] [address] 12155- 7843 Oct, [place] [address] [place] [address] 39222- 8738 Sep, [place] [address] [place] [id number] [place] [address] 09424- 8013 Sep, Major depressive disorder, recurrent episode, moderate F33.1 [place] [address] [place] [id number] [place] [address] 45849- 7308 Sep, [facility] [address], [place] [address]- 9363 Sep, Right renal mass N28.89 [facility] [address] [place] [address] 33105- 7536 Sep, [facility] [address] [place] [id number] [place] [address] 21831- 1861 Sep, [facility] [address] [place] [id number] [place] [address] 55576- 3238 Sep, Right renal mass N28.89 [facility] [address] [place] [id number] [place] [address] 18165- 0503 Sep, [facility] [address] [place] [id number] [place] [address] 89488- 1087 Sep, [facility] [address] [place] [id number] [place] [address] 13618- 7779 Sep, [facility] [address], [place] [address]- 4253 Sep, [facility] [address] [place] [id number] [place] [address] 76494- 6786 Sep, [facility] [address], [place] [address]- 9798 Sep, [facility] [address] [place] [address] 89555- 3622 Sep, Pulmonary nodule R91.1 [facility] [address], [place] [address]- 1697 Aug, [facility] [address] [place] [address] 29511- 8934 Aug, Right renal mass N28.89 and Pulmonary nodule R91.1 [facility] [address], [place] [address]- 1816 Aug, Essential hypertension I10 ; Right renal mass N28.89 ; Chronic gastric ulcer, unspecified whether gastric ulcer hemorrhage or perforation present K25.7 ; Spondylosis of cervical region without myelopathy or radiculopathy M47.812 ; 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 and Hospital discharge follow-up Z09 [place] [address] [place] [address] 09410- 9453 14 Aug, 2017 [place] [address] [place] [id number] [place] [address] 57100- 6451 09 Aug, 2017 [place] [address] [place] [id number] [place] [address] 04345- 3862 Aug, [place] [address] [place] [id number] [place] [address] 24390- 9786 Aug, Pain syndrome, chronic G89.4 ; Lumbago with sciatica, right side M54.41 ; Lumbago with sciatica, left side M54.42 ; Other chronic pain G89.29 ; Cervicalgia M54.2 ; Controlled substance agreement signed Z79.899 and Essential hypertension I10 [place] [address] [place] [id number] [place] [address] 45564- 5156 Aug, [place] [address] [place] [id number] [place] [address] 83052- 2358 26 Jul, 2017 Encounter to establish care [...] Assessed REASON FOR VISIT Controlled Med Refill 09/24 PLAN OF CARE VITAL SIGNS MEDICATIONS Medication Instructions Dosage Frequency Start Date End Date Duration Status Oxycodone-Acetaminophen 7.5-325 MG Orally every 6 hrs 1 tablet as needed 6h Sep, Oct, 28 days Active RESULTS No Results [...] polp removal/colonoscopy Hospitalization History heart attack x3 3347-6742 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
--- OUTSIDE RECORDS SUMMARY | 2018-05-02 12:49 | XMS REPORT ---
Author Author PRISCILLA BLANCAS Organization [facility] Address [address] [place] [address] Care Team Providers Care Score Caller Name Role Phone YONNY PRISCILLA Unavailable PROBLEMS Type Condition ICD9-CM Code MLA11-AN Code Onset Dates Condition Status SNOMED Code Problem Other obesity due to excess calories E66.09 Active 294604800 Problem Seasonal allergic rhinitis due to pollen J30.1 Active 68104711 Problem Major depressive disorder, recurrent episode, moderate F33.1 Active 469413776 Problem Hyperlipidemia, unspecified E78.5 Active 45941540 Problem Left kidney mass N28.89 Active 055705876 Problem Type 2 diabetes mellitus with other specified complication E11.69 Active 89355956429218 Problem Chronic esophagogastric ulcer K25.7 Active 43867046 Problem 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3 Active 221156453 Problem GERD without esophagitis K21.9 Active 291595876 Problem Renal cell carcinoma of left kidney C64.2 Active 222389945 Problem Metabolic disorder, unspecified E88.9 Active 482475346 Problem Essential hypertension I10 Active 96439785 Problem Type 2 diabetes mellitus without complication, without long-term current use of insulin E11.9 Active 530068406 Problem Lumbago with sciatica, left side M54.42 Active 288903650 Problem Lumbago with sciatica, right side M54.41 Active 191086443810951 Problem Right renal mass N28.89 Active 342237660 Problem Spondylosis of cervical region without myelopathy or radiculopathy M47.812 Active 959533418 Problem Pain syndrome, chronic G89.4 Active 080457046 Problem Pulmonary nodule R91.1 Active 854740585 Problem 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 Active 853915175 Problem Body mass index (BMI) of 32.0-32.9 in adult Z68.32 Active 567529492 ALLERGIES No Information ENCOUNTERS Encounter Location Date Diagnosis [place] [address] [place] [id number] [place] [address] 50806- 1049 Apr, [place] [address] [address] [id number] [place] [address] 01815- 7933 Mar, Type 2 diabetes mellitus without complication, [...] specified complication E11.69 and Hyperlipidemia, unspecified E78.5 [facility] IN [place] [id number] [place] [address] 13269 -6265 Mar, Acute suppurative otitis media of both ears without spontaneous rupture of tympanic membranes, recurrence not specified H66.003 [place] [address] [place] [id number] [place] [address] 91640- 8002 Mar, [place] [address] [place] [id number] [place] [address] 37184- 8341 Mar, 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 [place] [address] [address] [id number] [place] [address] 85742 -4228 Mar, Low back pain, unspecified back pain laterality, unspecified chronicity, with sciatica presence unspecified M54.5 and Type 2 diabetes mellitus without complication, without long-term current use of insulin E11.9 [place] [address] [address] [id number] [place] [address] 77997- 9141 February, [place] [address] [place] [id number] [place] [address] 33743- 3711 February, 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 [facility] [place] [address] [address] [id number] [place] [address] 84978 -4694 February, Strain of neck muscle, initial encounter S16.1XXA [place] [address] 16050- 4304 February, Type 2 diabetes mellitus without complication, [...] Seasonal allergic rhinitis due to pollen J30.[address] 99791- 3005 February, Essential hypertension I10 ; 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 ; Body mass index (BMI) of 32.0-32.9 in adult Z68.32 and Type 2 diabetes mellitus without complication, without long-term current use of insulin E11.9 [place] [address] [place] [address] [id number] [place] [address] 53691- 8241 February, Type 2 diabetes mellitus without complication, without long- term current use of insulin E11.9 [place] [address] [place] [address] [id number] [place] [address] 13120- 0535 Jan, Lumbago with sciatica, right side M54.41 [facility] [address] [place] [address] [id number] [place] [address] 31722 -0771 Jan, Sore throat J02.9 [place] [address] [address] [id number] [place] [address] 77750- 0160 Dec, [place] [address] [place] [address] [id number] [place] [address] 08331- 9513 Dec, Type 2 diabetes mellitus without complication, without long- term current use of insulin E11.9 [facility] [address] [address] 1813 Dec, [facility] [address] [place] [address] [id number] [place] [address] 00353- 9502 Dec, [facility] [address] [place] [address] [id number] [place] [address] 95446- 1731 Dec, [facility] [address] [place] [address] [id number] [place] [address] 01737- 2008 Dec, Type 2 diabetes mellitus without complication, [...] pollen J30.1 and GERD without esophagitis K21.9 [place] [address] [address] [id number] [place] [address] 53790- 0782 Dec, [place] [address] [address] [id number] [place] [address] 57010- 3124 Nov, [facility] [address] [address] [id number] [place] [address] 37795- 0867 Nov, [facility] [address] [address] [id number] [place] [address] 16959- 5510 Nov, [facility] [address] [place] [address] [id number] [place] [address] 40120- 3698 Nov, [facility] [id number] [place] [address] 89815- 3898 Oct, [facility] [address] [place] [id number] [place] [address] 82390- 5819 Oct, [place] [address] [address] [id number] [place] [address] 43426- 9529 Oct, [facility] [address] 94594- 4694 Oct, Well woman exam with routine gynecological exam Z01.419 ; Screen for STD (sexually transmitted disease) Z11.3 ; Screening breast examination Z12.31 ; Type 2 diabetes mellitus without complication, without long -term current use of insulin E11.9 ; Other obesity due to excess calories E66.09 and Body mass index (BMI) of 32.0-32.9 in adult Z68.32 [place] [address] 79543- 6263 09 Oct, 2017 Ganglion of left wrist M67.432 [place] [address] 15936- 6878 Oct, [place] [address] 46654- 0626 Oct, [facility] [address] 26539 -1765 Oct, Ganglion cyst M67.40 [place] [address] 36053- 7462 Oct, [place] [address] 51329- 7020 Sep, [place] [address] 46086- 6767 Sep, Major depressive disorder, recurrent episode, moderate F33.1 [place] [address] 18314- 7072 Sep, [place] [address] 23497- 9966 15 Sep, 2017 Right renal mass N28.89 [place] [address] 98719- 6410 Sep, [facility] [address] [address]- 1496 Sep, [facility] [address] [place] [address] [id number] [place] [address] 17529- 2242 Sep, Right renal mass N28.89 [facility] [address] [address] [id number] [place] [address] 05064- 8540 Sep, [facility] [address] [address] [id number] [place] [address] 41392- 2987 Sep, [facility] [address] [id number] [place] [address] 85522- 0637 Sep, [facility] [address] [address] [id number] [place] [address] 69684- 4671 Sep, [facility] [address] [address] [id number] [place] [address] 31252- 2075 Sep, [facility] [address] [address] [id number] [place] [address] 95794- 2684 Sep, [facility] [address] [address] [id number] [place] [address] 47557- 8263 Sep, Pulmonary nodule R91.1 [facility] [address] [id number] [place] [address] 95025- 9807 Aug, [facility] [id number] [place] [address] 04565- 6439 Aug, Right renal mass N28.89 and Pulmonary nodule R91.1 [facility] [address] [place] [address] 68943- 0362 16 Aug, 2017 Essential hypertension I10 ; Right renal mass N28.89 ; Chronic gastric ulcer, unspecified whether gastric ulcer hemorrhage or perforation present K25.7 ; Spondylosis of cervical region without myelopathy or radiculopathy M47.812 ; 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 and Hospital discharge follow-up Z09 [facility] [address] [place] [address]- 1540 Aug, [facility] [address], [place] [address]- 6451 Aug, [facility] [address], [place] [address]- 0847 Aug, [facility] [address] [place] [id number] [address]- 3581 Aug, Pain syndrome, chronic G89.4 ; Lumbago with sciatica, right side M54.41 ; Lumbago with sciatica, left side M54.42 ; Other chronic pain G89.29 ; Cervicalgia M54.2 ; Controlled substance agreement signed Z79.899 and Essential hypertension I10 [facility] [address], [place] [address]- 3958 Aug, [facility] [address], [place] [address]- 8674 Jul, Encounter to establish care Z76.89 ; [...] polp removal/colonoscopy Hospitalization History heart attack x3 6065-1041 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
--- OUTSIDE RECORDS SUMMARY | 2018-05-02 12:50 | XMS REPORT ---
Author Author PRISCILLA BLANCAS Organization [facility] Address [address] [place] [address] Care Team Providers Care Stove Cleaner Name Role Phone YONNY PRISCILLA Unavailable PROBLEMS Type Condition ICD9-CM Code MAQ29-CB Code Onset Dates Condition Status SNOMED Code Problem Spondylosis of cervical region without myelopathy or radiculopathy M47.812 Active 421176528 Problem Body mass index (BMI) of 32.0-32.9 in adult Z68.32 Active 983133496 Problem Pulmonary nodule R91.1 Active 595623847 Problem Metabolic disorder, unspecified E88.9 Active 214461024 Problem 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3 Active 712955632 Problem Major depressive disorder, recurrent episode, moderate F33.1 Active 415445298 Problem Other obesity due to excess calories E66.09 Active 441797429 Problem GERD without esophagitis K21.9 Active 225857717 Problem Seasonal allergic rhinitis due to pollen J30.1 Active 82031371 Problem Chronic esophagogastric ulcer K25.7 Active 14668468 Problem Type 2 diabetes mellitus without complication, without long-term current use of insulin E11.9 Active 461865114 Problem Left kidney mass N28.89 Active 231534137 Problem Essential hypertension I10 Active 07805344 Problem Pain syndrome, chronic G89.4 Active 967255845 Problem Lumbago with sciatica, left side M54.42 Active 510462423 Problem Right renal mass N28.89 Active 149764823 Problem Lumbago with sciatica, right side M54.41 Active 637850359077038 Problem 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 Active 564946233 ALLERGIES No Information ENCOUNTERS Encounter Location Date Diagnosis [facility] [address] [facility] [id number] [address]- 3124 Apr, [facility] [address] [place] [id number] [place] [address] 93471- 3188 Mar, [facility] [place] [address] [place] [address] [id number] [place] [address] 83588 -2437 Mar, Acute suppurative otitis media of both ears without spontaneous rupture of tympanic membranes, recurrence not specified H66.003 [place] [address] [place] [id number] [place] [address] 16881- 5271 Mar, [place] [address] 35880- 8651 Mar, 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 [facility] IN [address] 33248 -5648 Mar, Low back pain, unspecified back pain laterality, unspecified chronicity, with sciatica presence unspecified M54.5 and Type 2 diabetes mellitus without complication, without long-term current use of insulin E11.9 [place] [id number] [place] [address] 97117- 5852 February, [place] [address] 62631- 4365 February, 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 [facility] [place] [id number] [place] [address] 86813 -4282 February, Strain of neck muscle, initial encounter S16.1XXA [place] [id number] [place] [address] 03507- 3189 February, Type 2 diabetes mellitus without complication, [...] Seasonal allergic rhinitis due to pollen J30.1 [facility] [address] [place] [address] 70009- 2564 February, Essential hypertension I10 ; 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 ; Body mass index (BMI) of 32.0-32.9 in adult Z68.32 and Type 2 diabetes mellitus without complication, without long-term current use of insulin E11.9 [place] [address] [address] [place] [address] 84442- 4463 February, Type 2 diabetes mellitus without complication, without long- term current use of insulin E11.9 [place] [address] [address] [address] [place] [address] 49380- 0407 Jan, Lumbago with sciatica, right side M54.41 [facility] [address] [address] [id number] [place] [address] 32988 -8320 Jan, Sore throat J02.9 [facility] [address] [place] [id number] [place] [address] 87591- 4490 Dec, [facility] [address] [place] [address] [place] [address] 15470- 3334 Dec, Type 2 diabetes mellitus without complication, without long- term current use of insulin E11.9 [place] [address] [place] [address] [address] [place] [address] 48924- 6399 Dec, [facility] [address] [place] [address] [place] [address] 11766- 2293 Dec, [place] [address] [place] [address] 65653- 9380 Dec, [place] [address] [place] [address] [place] [address] 22312- 7663 Dec, Type 2 diabetes mellitus without complication, [...] pollen J30.1 and GERD without esophagitis K21.9 [place] [address] [place] [address] [place] [address] 73590- 1891 Dec, [facility] [address] [place] [id number] [place] [address] 10079- 1463 Nov, [place] [address] 03269- 3891 Nov, [place] [address] [place] [id number] [place] [address] 87459- 3926 Nov, [facility] [address] [place] [id number] [place] [address] 75464- 0630 Nov, [facility] [address] [place] [id number] [place] [address] 64797- 6883 Oct, [place] [address] [place] [address] [place] [address] 75846- 4612 Oct, [place] [address] [place] [address] [place] [address] 50039- 8741 Oct, [place] [address] [place] [address] [place] [address] 33092- 8568 Oct, Well woman exam with routine gynecological exam Z01.419 ; Screen for STD (sexually transmitted disease) Z11.3 ; Screening breast examination Z12.31 ; Type 2 diabetes mellitus without complication, without long -term current use of insulin E11.9 ; Other obesity due to excess calories E66.09 and Body mass index (BMI) of 32.0-32.9 in adult Z68.32 [facility] [address] [place] [address] [place] [address] 36383- 8803 Oct, Ganglion of left wrist M67.432 [facility] [address] [place] [address] 79125- 8667 Oct, [facility] [address] [place] [id number] [place] [address] 94917- 1622 Oct, [facility] [address] [place] [address] 52412 -9942 Oct, Ganglion cyst M67.40 [facility] [address] [place] [id number] [place] [address] 12283- 8204 Oct, [facility] [address] [place] [id number] [place] [address] 84501- 8039 Sep, [facility] [address] [place] [address] [place] [address] 18699- 6824 Sep, Major depressive disorder, recurrent episode, moderate F33.1 [facility] [address] [place] [id number] [place] [address] 92096- 2031 Sep, [facility] [address] [place] [address] [place] [address] 57093- 2486 Sep, Right renal mass N28.89 [facility] [address] [place] [address] [place] [address] 62874- 3188 Sep, [facility] [address] [place] [address] [place] [address] 26469- 9163 Sep, [facility] [address] [place] [address] [place] [address] 64718- 1383 Sep, Right renal mass N28.89 [facility] [address] [place] [address] [place] [address] 05249- 7539 Sep, [facility] [address] [place] [address] [place] [address] 75531- 5955 Sep, [facility] [address] [place] [address] [place] [address] 02654- 7750 Sep, [facility] [address] [place] [address] [place] [address] 49263- 0264 Sep, [facility] [address] [address]- 0810 Sep, [facility] [address] [place] [id number] [place] [address] 54721- 8792 Sep, [place] [address] [place] [address] [place] [address] 02018- 9950 Sep, Pulmonary nodule R91.1 [place] [address] [place] [address] [place] [address] 35862- 3934 Aug, [place] [address] [place] [address] [place] [address] 43611- 4529 Aug, Right renal mass N28.89 and Pulmonary nodule R91.1 [place] [address] [place] [address] [place] [address] 74728- 1497 Aug, Essential hypertension I10 ; Right renal mass N28.89 ; Chronic gastric ulcer, unspecified whether gastric ulcer hemorrhage or perforation present K25.7 ; Spondylosis of cervical region without myelopathy or radiculopathy M47.812 ; 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 and Hospital discharge follow-up Z09 [place] [address] [place] [address] 11070- 5056 14 Aug, 2017 [place] [address] [place] [address] 67812- 0188 Aug, [place] [address] [place] [address] [place] [address] 44794- 6939 Aug, [place] [address] [place] [address] [place] [address] 86746- 0714 Aug, Pain syndrome, chronic G89.4 ; Lumbago with sciatica, right side M54.41 ; Lumbago with sciatica, left side M54.42 ; Other chronic pain G89.29 ; Cervicalgia M54.2 ; Controlled substance agreement signed Z79.899 and Essential hypertension I10 [place] [address] [place] [id number] [place] [address] Aug, [facility] [address] [facility] [id number] [place] [address]- 0363 Jul, Encounter to establish care Z76.89 ; [...] SOCIAL HISTORY Never Assessed REASON FOR VISIT 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
--- OUTSIDE RECORDS SUMMARY | 2018-05-02 12:50 | XMS REPORT ---
Author Author PRISCILLA BLANCAS Organization [facility] Address [address] [place] [address] Care Team Providers Care Ocean Export Coordinator Name Role Phone YONNY PRISCILLA Unavailable PROBLEMS Type Condition ICD9-CM Code OQD60-ME Code Onset Dates Condition Status SNOMED Code Problem Spondylosis of cervical region without myelopathy or radiculopathy M47.812 Active 306874530 Problem Body mass index (BMI) of 32.0-32.9 in adult Z68.32 Active 737031592 Problem Pulmonary nodule R91.1 Active 301653158 Problem Metabolic disorder, unspecified E88.9 Active 942449139 Problem 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3 Active 162732811 Problem Major depressive disorder, recurrent episode, moderate F33.1 Active 297684655 Problem Other obesity due to excess calories E66.09 Active 345346113 Problem GERD without esophagitis K21.9 Active 147501632 Problem Seasonal allergic rhinitis due to pollen J30.1 Active 07980544 Problem Chronic esophagogastric ulcer K25.7 Active 15191898 Problem Type 2 diabetes mellitus without complication, without long-term current use of insulin E11.9 Active 692090152 Problem Left kidney mass N28.89 Active 368429056 Problem Essential hypertension I10 Active 30209466 Problem Pain syndrome, chronic G89.4 Active 419017365 Problem Lumbago with sciatica, left side M54.42 Active 194122091 Problem Right renal mass N28.89 Active 433086221 Problem Lumbago with sciatica, right side M54.41 Active 106056338700130 Problem 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 Active [id number] ALLERGIES No Information ENCOUNTERS Encounter Location Date Diagnosis [facility] [address] [facility] [id number] [address] Mar, [facility] [address] [place] [id number] [address] February, [place] [address] [place] [address] 69238- 4444 February, 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 [facility] [place] [address] [place] [address] 75437 -0584 February, Strain of neck muscle, initial encounter S16.1[place] [id number] [place] [address] 19960- 2087 February, Type 2 diabetes mellitus without complication, [...] Seasonal allergic rhinitis due to pollen J30.1 [address] [place] [address] 80804- 0915 February, Essential hypertension I10 ; 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 ; Body mass index (BMI) of 32.0-32.9 in adult Z68.32 and Type 2 diabetes mellitus without complication, without long-term current use of insulin E11.9 [place] [address] [place] [address] 73218- 0315 February, Type 2 diabetes mellitus without complication, without long- term current use of insulin E11.9 [place] [address] [place] [address] 62596- 3175 Jan, Lumbago with sciatica, right side M54.41 [facility] WALK IN [facility] [address] [place] [address] 85359 -7413 Jan, Sore throat J02.9 [place] [address] [place] [id number] [address] Dec, [facility] [address] [place] [address] 76030- 5649 Dec, Type 2 diabetes mellitus without complication, without long- term current use of insulin E11.9 [place] [address] [place] [address] 05906- 4589 Dec, [place] [address] [place] [id number] [place] [address] 70879- 5634 Dec, [place] [address] [place] [address] 30567- 0283 Dec, [place] [address] [place] [id number] [place] [address] 48173- 8318 Dec, Type 2 diabetes mellitus without complication, [...] pollen J30.1 and GERD without esophagitis K21.9 [place] [address] [address] 9169 Dec, [place] [address] [address] 8249 Nov, [place] [address] [place] [id number] [place] [address] 72470- 5074 Nov, [facility] [address] [address] 9028 Nov, [place] [address] [place] [address] 56450- 7035 Nov, [facility] [address] [place] [address] 91284- 6235 Oct, [facility] [address] [place] [id number] [place] [address] 14491- 0325 Oct, [place] [address] [place] [id number] [place] [address] 49965- 0546 Oct, [facility] [address] 63694- 2528 Oct, Well woman exam with routine gynecological exam Z01.419 ; Screen for STD (sexually transmitted disease) Z11.3 ; Screening breast examination Z12.31 ; Type 2 diabetes mellitus without complication, without long -term current use of insulin E11.9 ; Other obesity due to excess calories E66.09 and Body mass index (BMI) of 32.0-32.9 in adult Z68.32 [place] [address] [place] [id number] [place] [address] 54940- 2129 Oct, Ganglion of left wrist M67.432 [place] [address] [place] [id number] [place] [address] 05022- 6493 Oct, [place] [address] [place] [id number] [place] [address] 06230- 4640 Oct, [facility] [address] [place] [address] 86905 -2159 Oct, Ganglion cyst M67.40 [facility] [address] [place] [id number] [place] [address] 98477- 0645 Oct, [place] [address] [place] [address] 06493- 9175 Sep, [place] [address] [place] [id number] [place] [address] 26671- 3584 Sep, Major depressive disorder, recurrent episode, moderate F33.1 [place] [address] [place] [id number] [place] [address] 80211- 2991 Sep, [facility] [address] [address] 6099 Sep, Right renal mass N28.89 [facility] [address] [place] [address] 18657- 7706 Sep, [facility] [address] [place] [id number] [place] [address] 85766- 2886 Sep, [facility] [address] [place] [id number] [place] [address] 09902- 1032 Sep, Right renal mass N28.89 [facility] [address] [place] [id number] [place] [address] 79489- 3590 Sep, [facility] [address] [place] [id number] [place] [address] 86806- 1004 Sep, [facility] [address] [place] [id number] [place] [address] 10998- 5224 Sep, [facility] [address] [address] 2668 Sep, [facility] [address] [place] [id number] [place] [address] 75756- 6855 Sep, [facility] [address] [address] 1568 Sep, [facility] [address] [place] [address] 45543- 0867 Sep, Pulmonary nodule R91.1 [facility] [address] [address] 9248 Aug, [facility] [address] [place] [address] 25993- 6031 Aug, Right renal mass N28.89 and Pulmonary nodule R91.1 [facility] [address] [address] 3839 Aug, Essential hypertension I10 ; Right renal mass N28.89 ; Chronic gastric ulcer, unspecified whether gastric ulcer hemorrhage or perforation present K25.7 ; Spondylosis of cervical region without myelopathy or radiculopathy M47.812 ; 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 and Hospital discharge follow-up Z09 [place] [id number] [place] [address] 00625- 3815 14 Aug, 2017 [place] [address] [place] [id number] [place] [address] 42656- 9977 09 Aug, 2017 [place] [address] [place] [id number] [place] [address] 89482- 3179 Aug, [place] [address] [place] [id number] [place] [address] 71319- 9898 Aug, Pain syndrome, chronic G89.4 ; Lumbago with sciatica, right side M54.41 ; Lumbago with sciatica, left side M54.42 ; Other chronic pain G89.29 ; Cervicalgia M54.2 ; Controlled substance agreement signed Z79.899 and Essential hypertension I10 [place] [address] [place] [id number] [place] [address] 87448- 1350 02 Aug, 2017 [place] [address] [place] [id number] [place] [address] 05327- 7630 26 Jul, 2017 Encounter to establish care [...] HISTORY Never Assessed REASON FOR VISIT PA CT Scan Chest w/contrast PLAN OF CARE VITAL SIGNS MEDICATIONS Unknown [...] polp removal/colonoscopy Hospitalization History heart attack x3 [id number] 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
--- OUTSIDE RECORDS SUMMARY | 2018-05-02 12:50 | XMS REPORT ---
Author Author PRISCILLA BLANCAS Organization [facility] Address [address] [place] [address] Care Team Providers Care Electrical Assistant Name Role Phone YONNY PRISCILLA Unavailable PROBLEMS Type Condition ICD9-CM Code ZVB82-TC Code Onset Dates Condition Status SNOMED Code Problem Pulmonary nodule R91.1 Active 345071379 Problem Other obesity due to excess calories E66.09 Active 942181897 Problem Body mass index (BMI) of 32.0-32.9 in adult Z68.32 Active 660453691 Problem Renal cell carcinoma of left kidney C64.2 Active 738066727 Problem Metabolic disorder, unspecified E88.9 Active 229521993 Problem Seasonal allergic rhinitis due to pollen J30.1 Active 72008957 Problem Major depressive disorder, recurrent episode, moderate F33.1 Active 053437655 Problem 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3 Active 580380753 Problem GERD without esophagitis K21.9 Active 813721574 Problem Type 2 diabetes mellitus without complication, without long-term current use of insulin E11.9 Active 917455216 Problem Lumbago with sciatica, left side M54.42 Active 925815587 Problem Left kidney mass N28.89 Active 577741673 Problem Chronic esophagogastric ulcer K25.7 Active 29372508 Problem Pain syndrome, chronic G89.4 Active 157596644 Problem Right renal mass N28.89 Active 965674924 Problem Lumbago with sciatica, right side M54.41 Active 662545358133928 Problem 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 Active 671215600 Problem Essential hypertension I10 Active 37031113 Problem Spondylosis of cervical region without myelopathy or radiculopathy M47.812 Active [id number] ALLERGIES No Information ENCOUNTERS Encounter Location Date Diagnosis [facility] [address] [facility] [id number], [place] [address] Apr, [place] [address] [place] [id number] [place] [address] 93794- 4582 Mar, Type 2 diabetes mellitus without complication, without long- term current use of insulin E11.9 ; Essential hypertension I10 and Renal cell carcinoma of left kidney C64.2 [facility] WALK IN [place] [address] [address] [place] [id number] [place] [address] 49378 -5223 Mar, Acute suppurative otitis media of both ears without spontaneous rupture of tympanic membranes, recurrence not specified H66.003 [place] [address] [place] [id number] [place] [address] 58136- 4387 Mar, [place] [address] 66073- 3025 Mar, 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 [facility] IN [place] [address] [address] [place] [id number] [place] [address] 70292 -3608 Mar, Low back pain, unspecified back pain laterality, unspecified chronicity, with sciatica presence unspecified M54.5 and Type 2 diabetes mellitus without complication, without long-term current use of insulin E11.9 [place] [address] [place] [id number] [place] [address] 96963- 1949 February, [place] [address] [place] [id number] [place] [address] 93876- 1961 February, 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 [facility] [place] [id number] [place] [address] 62516 -2532 February, Strain of neck muscle, initial encounter S16.1XXA [place] [address] [place] [id number] [place] [address] 04957- 9801 February, Type 2 diabetes mellitus without complication, [...] Seasonal allergic rhinitis due to pollen J30.1 [facility] [address] [place] [id number] [place] [address] 71621- 6313 February, Essential hypertension I10 ; 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 ; Body mass index (BMI) of 32.0-32.9 in adult Z68.32 and Type 2 diabetes mellitus without complication, without long-term current use of insulin E11.9 [place] [address] [place] [id number] [place] [address] 32538- 6089 February, Type 2 diabetes mellitus without complication, without long- term current use of insulin E11.9 [place] [address] [place] [id number] [place] [address] 60291- 4739 Jan, Lumbago with sciatica, right side M54.41 [facility] WALK IN [facility] [address] [place] [id number] [place] [address] 28337 -6843 Jan, Sore throat J02.9 [facility] [address] [place] [id number] [place] [address] 21237- 6485 Dec, [facility] [address] [place] [id number] [place] [address] 86691- 5862 Dec, Type 2 diabetes mellitus without complication, without long- term current use of insulin E11.9 [place] [address] [place] [id number] [place] [address] 07759- 8773 14 Dec, 2017 [facility] [address] [place] [id number] [place] [address] 88468- 9321 14 Dec, 2017 [facility] [address] [place] [id number] [place] [address] 39402- 4251 Dec, [facility] [address] [place] [id number] [place] [address] 76683- 3382 Dec, Type 2 diabetes mellitus without complication, [...] pollen J30.1 and GERD without esophagitis K21.9 [facility] [address] [place] [id number] [place] [address] 70278463- 9146 Dec, [facility] [address] [place] [id number] [place] [address] 99883- 6486 Nov, [facility] [address] [place] [id number] [place] [address] 19916- 4363 Nov, [facility] [address] [place] [id number] [place] [address] 00653- 1046 Nov, [facility] [address] [place] [id number] [place] [address] 29212- 4715 Nov, [facility] [address] [place] [id number] [place] [address] 66948- 2003 Oct, [facility] [address] [place] [id number] [place] [address] 47353- 0859 Oct, [facility] [address] [place] [id number] [place] [address] 12751- 4217 16 Oct, 2017 [facility] [address] [place] [address] 42004- 8640 11 Oct, 2017 Well woman exam with routine gynecological exam Z01.419 ; Screen for STD (sexually transmitted disease) Z11.3 ; Screening breast examination Z12.31 ; Type 2 diabetes mellitus without complication, without long -term current use of insulin E11.9 ; Other obesity due to excess calories E66.09 and Body mass index (BMI) of 32.0-32.9 in adult Z68.32 [facility] [address] [place] [id number] [place] [address] 08286- 1744 Oct, Ganglion of left wrist M67.432 [facility] [address] [place] [id number] [place] [address] 24740- 9335 Oct, [facility] [address] [place] [id number] [place] [address] 63534- 7653 Oct, [facility] [address] [place] [id number] [place] [address] 37283 -3618 Oct, Ganglion cyst M67.40 [facility] [address] 81210- 8595 Oct, [facility] [address] [place] [id number] [place] [address] 23934- 3038 Sep, [facility] [address] 37726- 6628 Sep, Major depressive disorder, recurrent episode, moderate F33.1 [facility] [address] [place] [id number] [place] [address] 19229- 3865 Sep, [facility] [address] [place] [id number] [place] [address] 01574- 5418 Sep, Right renal mass N28.89 [facility] [address] [place] [id number] [place] [address] 92297- 0863 Sep, [facility] [address] [place] [id number] [place] [address] 89560- 2257 Sep, [facility] [address] [place] [id number] [place] [address] 45905- 0461 Sep, Right renal mass N28.89 [facility] [address] [place] [id number] [place] [address] 39065- 1140 Sep, [facility] [address] [place] [id number] [place] [address] 88931- 8298 Sep, [facility] [address], [place] [address]- 5772 Sep, [facility] [address], [place] [address]- 5218 Sep, [facility] [address], [place] [address]- 8374 Sep, [facility] [address] [place] [id number] [place] [address] 92253- 6013 Sep, [facility] [address] [place] [address] 96606- 2084 Sep, Pulmonary nodule R91.1 [place] [address] [place] [address] 15233- 0830 Aug, [place] [address] [place] [id number] [place] [address] 74411- 6607 Aug, Right renal mass N28.89 and Pulmonary nodule R91.1 [facility] [address], [place] [address]- 4664 Aug, Essential hypertension I10 ; Right renal mass N28.89 ; Chronic gastric ulcer, unspecified whether gastric ulcer hemorrhage or perforation present K25.7 ; Spondylosis of cervical region without myelopathy or radiculopathy M47.812 ; 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 and Hospital discharge follow-up Z09 [place] [address], [place] [address]- 1828 Aug, [facility] [address], [place] [address]- 1567 Aug, [place] [address] [place] [id number] [place] [address] 90839- 2166 Aug, [facility] [address], [place] [address]- 8276 Aug, Pain syndrome, chronic G89.4 ; Lumbago with sciatica, right side M54.41 ; Lumbago with sciatica, left side M54.42 ; Other chronic pain G89.29 ; Cervicalgia M54.2 ; Controlled substance agreement signed Z79.899 and Essential hypertension I10 [facility] [address] [facility] [id number] [place] [address]- 0977 Aug, [facility] [address] [facility] [id number], [place] [address]- 9136 Jul, Encounter to establish care Z76.89 ; [...] SOCIAL HISTORY Never Assessed REASON FOR VISIT Lab results PLAN OF CARE VITAL SIGNS MEDICATIONS Unknown [...] polp removal/colonoscopy Hospitalization History heart attack x3 4250-1747 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
--- OUTSIDE RECORDS SUMMARY | 2018-05-02 12:50 | XMS REPORT ---
Author Author PRISCILLA BLANCAS Organization [facility] Address [address] [place] [address] Care Team Providers Care Hair Or Beauty Salon Assistant Name Role Phone YONNY PRISCILLA Unavailable PROBLEMS Type Condition ICD9-CM Code UFX73-OL Code Onset Dates Condition Status SNOMED Code Problem Spondylosis of cervical region without myelopathy or radiculopathy M47.812 Active 963448689 Problem Body mass index (BMI) of 32.0-32.9 in adult Z68.32 Active 726087000 Problem Pulmonary nodule R91.1 Active 705212173 Problem Metabolic disorder, unspecified E88.9 Active 631631634 Problem 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3 Active 560722788 Problem Major depressive disorder, recurrent episode, moderate F33.1 Active 386143822 Problem Other obesity due to excess calories E66.09 Active 231687798 Problem GERD without esophagitis K21.9 Active 852005731 Problem Seasonal allergic rhinitis due to pollen J30.1 Active 07992552 Problem Chronic esophagogastric ulcer K25.7 Active 25843270 Problem Type 2 diabetes mellitus without complication, without long-term current use of insulin E11.9 Active 714118576 Problem Left kidney mass N28.89 Active 691246282 Problem Essential hypertension I10 Active 52728406 Problem Pain syndrome, chronic G89.4 Active 851966414 Problem Lumbago with sciatica, left side M54.42 Active 085697888 Problem Right renal mass N28.89 Active 707664694 Problem Lumbago with sciatica, right side M54.41 Active 945907696489447 Problem 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 Active 820253732 ALLERGIES No Information ENCOUNTERS Encounter Location Date Diagnosis [facility] [address] [facility] [id number] [address] Mar, [facility] [address] [id number] [address] February, [place] [address] [address] [place] [address] 43249- 4097 February, 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 [facility] [place] [address] [address] [place] [address] 12816 -4378 February, Strain of neck muscle, initial encounter S16.1[place]A [place] [id number] [place] [address] 41093- 4321 February, Type 2 diabetes mellitus without complication, [...] Seasonal allergic rhinitis due to pollen J30.1 [address] [place] [address] 10758- 6932 February, Essential hypertension I10 ; 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 ; Body mass index (BMI) of 32.0-32.9 in adult Z68.32 and Type 2 diabetes mellitus without complication, without long-term current use of insulin E11.9 [place] [address] [place] [address] 43267- 7157 February, Type 2 diabetes mellitus without complication, without long- term current use of insulin E11.9 [place] [address] [place] [address] 56909- 0169 Jan, Lumbago with sciatica, right side M54.41 [facility] [address] [place] [address] 70040 -6872 Jan, Sore throat J02.9 [place] [address] [id number] [address] Dec, [facility] [address] [place] [address] 56293- 7494 Dec, Type 2 diabetes mellitus without complication, without long- term current use of insulin E11.9 [place] [address] [place] [address] 43998- 1055 Dec, [place] [address] [place] [id number] [place] [address] 47618- 7657 Dec, [place] [address] [place] [address] 01877- 0854 Dec, [place] [address] [place] [id number] [place] [address] 35768- 6636 Dec, Type 2 diabetes mellitus without complication, [...] pollen J30.1 and GERD without esophagitis K21.9 [place] [address], [place] [address] 27[address] Dec, [place] [address], [place] [address] Nov, [place] [address] [place] [id number] [place] [address] 69628- 2229 Nov, [facility] [address], [place] [address] Nov, [place] [address] [place] [address] 30985- 4988 Nov, [facility] [address] [place] [address] 54567- 8070 Oct, [facility] [address] [place] [id number] [place] [address] 79007- 2381 Oct, [place] [address] [place] [id number] [place] [address] 94726- 7598 Oct, [facility] [address] [address]- 39[address] Oct, Well woman exam with routine gynecological exam Z01.419 ; Screen for STD (sexually transmitted disease) Z11.3 ; Screening breast examination Z12.31 ; Type 2 diabetes mellitus without complication, without long -term current use of insulin E11.9 ; Other obesity due to excess calories E66.09 and Body mass index (BMI) of 32.0-32.9 in adult Z68.32 [place] [address] [place] [id number] [place] [address] 50881- 1325 Oct, Ganglion of left wrist M67.432 [place] [address] [place] [id number] [place] [address] 96615- 1559 Oct, [place] [address] [place] [id number] [place] [address] 15624- 9901 Oct, [facility] [address] [place] [address] 34208 -8336 Oct, Ganglion cyst M67.40 [facility] [address] [place] [id number] [place] [address] 66703- 9375 Oct, [place] [address] [place] [address] 77793- 1723 Sep, [place] [address] [place] [id number] [place] [address] 57439- 0344 Sep, Major depressive disorder, recurrent episode, moderate F33.1 [place] [address] [place] [id number] [place] [address] 96157- 7860 Sep, [facility] [address], [place] [address] 48[address] Sep, Right renal mass N28.89 [facility] [address] [place] [address] 31499- 0416 Sep, [facility] [address] [place] [id number] [place] [address] 84078- 7117 Sep, [facility] [address] [place] [address] [id number] [place] [address] 10996- 5085 Sep, Right renal mass N28.89 [facility] [address] [place] [address] [id number] [place] [address] 64692- 7133 Sep, [facility] [address] [place] [id number] [place] [address] 39440- 1061 Sep, [facility] [address] [place] [address] [id number] [place] [address] 25716- 4539 Sep, [facility] [address], [place] [address] Sep, [facility] [address] [place] [address] [id number] [place] [address] 31703- 3689 Sep, [facility] [address], [place] [address] 9099 Sep, [facility] [address] [place] [address] 91671- 8347 Sep, Pulmonary nodule R91.1 [facility] [address], [place] [address] 8454 Aug, [facility] [address] [place] [address] 53100- 8727 Aug, Right renal mass N28.89 and Pulmonary nodule R91.1 [facility] [address], [place] [address] 0[address] Aug, Essential hypertension I10 ; Right renal mass N28.89 ; Chronic gastric ulcer, unspecified whether gastric ulcer hemorrhage or perforation present K25.7 ; Spondylosis of cervical region without myelopathy or radiculopathy M47.812 ; 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 and Hospital discharge follow-up Z09 [place] [address] [place] [address] 44893- 3961 14 Aug, 2017 [place] [address] [place] [id number] [place] [address] 05565- 6216 09 Aug, 2017 [place] [address] [place] [id number] [place] [address] 90998- 5401 Aug, [place] [address] [place] [id number] [place] [address] 58353- 2679 Aug, Pain syndrome, chronic G89.4 ; Lumbago with sciatica, right side M54.41 ; Lumbago with sciatica, left side M54.42 ; Other chronic pain G89.29 ; Cervicalgia M54.2 ; Controlled substance agreement signed Z79.899 and Essential hypertension I10 [place] [address] [place] [id number] [place] [address] 68313- 0083 02 Aug, 2017 [place] [address] [place] [id number] [place] [address] 39507- 1743 26 Jul, 2017 Encounter to establish care [...] polp removal/colonoscopy Hospitalization History heart attack x3 [phone] 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
--- OUTSIDE RECORDS SUMMARY | 2018-05-02 12:50 | XMS REPORT ---
Author Author PRISCILLA BLANCAS Organization [facility] Address [address] [place] [address] Care Team Providers Care Celluloid Trimmer Name Role Phone YONNY PRISCILLA Unavailable PROBLEMS Type Condition ICD9-CM Code VZD67-BI Code Onset Dates Condition Status SNOMED Code Problem Spondylosis of cervical region without myelopathy or radiculopathy M47.812 Active 778087835 Problem Body mass index (BMI) of 32.0-32.9 in adult Z68.32 Active 006943157 Problem Pulmonary nodule R91.1 Active 628583282 Problem Metabolic disorder, unspecified E88.9 Active 915779085 Problem 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3 Active 103367552 Problem Major depressive disorder, recurrent episode, moderate F33.1 Active 488228439 Problem Other obesity due to excess calories E66.09 Active 251137210 Problem GERD without esophagitis K21.9 Active 293734576 Problem Seasonal allergic rhinitis due to pollen J30.1 Active 34939132 Problem Chronic esophagogastric ulcer K25.7 Active 35473344 Problem Type 2 diabetes mellitus without complication, without long-term current use of insulin E11.9 Active 850011748 Problem Left kidney mass N28.89 Active 452250023 Problem Essential hypertension I10 Active 53418202 Problem Pain syndrome, chronic G89.4 Active 214968575 Problem Lumbago with sciatica, left side M54.42 Active 100094157 Problem Right renal mass N28.89 Active 833154774 Problem Lumbago with sciatica, right side M54.41 Active 318239549369852 Problem 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 Active 606821560 ALLERGIES No Information ENCOUNTERS Encounter Location Date Diagnosis [facility] [address] [facility] [id number] [address] Mar, [facility] [address] [place] [id number] [address] 0068 February, [place] [address] [address] [place] [address] 56525- 4082 February, 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 [facility] IN [place] [address] [address] [place] [address] 11109 -4601 February, Strain of neck muscle, initial encounter S16.1XXA [place] [id number] [place] [address] 72535- 1790 February, Type 2 diabetes mellitus without complication, [...] Seasonal allergic rhinitis due to pollen J30.1 [address] [place] [address] 02327- 1709 February, Essential hypertension I10 ; 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 ; Body mass index (BMI) of 32.0-32.9 in adult Z68.32 and Type 2 diabetes mellitus without complication, without long-term current use of insulin E11.9 [place] [address] [place] [address] 05163- 3042 February, Type 2 diabetes mellitus without complication, without long- term current use of insulin E11.9 [place] [address] [place] [address] 96420- 4960 Jan, Lumbago with sciatica, right side M54.41 [facility] W[facility] IN [facility] [address] [place] [address] 65232 -6682 Jan, Sore throat J02.9 [place] [address] [id number], [place] [address]- 4352 Dec, [facility] [address] [place] [address] 83060- 8700 Dec, Type 2 diabetes mellitus without complication, without long- term current use of insulin E11.9 [place] [address] [place] [address] 74989- 6187 Dec, [place] [address] [place] [id number] [place] [address] 96167- 3236 Dec, [place] [address] [place] [address] 13858- 5084 Dec, [place] [address] [place] [id number] [place] [address] 19819- 8764 Dec, Type 2 diabetes mellitus without complication, [...] pollen J30.1 and GERD without esophagitis K21.9 [place] [address], [place] [address]- 9749 Dec, [place] [address], [place] [address]- 7622 Nov, [place] [address] [place] [id number] [place] [address] 09919- 6122 Nov, [facility] [address], [place] [address]- 1338 Nov, [place] [address] [place] [address] 47908- 3631 Nov, [facility] [address] [place] [address] 61056- 0151 Oct, [facility] [address] [place] [id number] [place] [address] 74415- 6825 Oct, [place] [address] [place] [id number] [place] [address] 96025- 8486 Oct, [facility] [address] 46149- 9925 Oct, Well woman exam with routine gynecological exam Z01.419 ; Screen for STD (sexually transmitted disease) Z11.3 ; Screening breast examination Z12.31 ; Type 2 diabetes mellitus without complication, without long -term current use of insulin E11.9 ; Other obesity due to excess calories E66.09 and Body mass index (BMI) of 32.0-32.9 in adult Z68.32 [place] [address] [place] [id number] [place] [address] 42987- 4874 Oct, Ganglion of left wrist M67.432 [place] [address] [place] [id number] [place] [address] 89100- 7794 Oct, [place] [address] [place] [id number] [place] [address] 91896- 6733 Oct, [facility] [address] [place] [address] 24648 -1038 Oct, Ganglion cyst M67.40 [facility] [address] [place] [id number] [place] [address] 12476- 3175 Oct, [place] [address] [place] [address] 94027- 8166 Sep, [place] [address] [place] [id number] [place] [address] 58014- 3950 Sep, Major depressive disorder, recurrent episode, moderate F33.1 [place] [address] [place] [id number] [place] [address] 00401- 3124 Sep, [facility] [address], [place] [address]- 6432 Sep, Right renal mass N28.89 [facility] [address] [place] [address] 82773- 1666 Sep, [facility] [address] [place] [id number] [place] [address] 80794- 2810 Sep, [facility] [address] [place] [id number] [place] [address] 68944- 3289 Sep, Right renal mass N28.89 [facility] [address] [place] [id number] [place] [address] 04339- 2373 Sep, [facility] [address] [place] [id number] [place] [address] 40309- 6583 Sep, [facility] [address] [place] [id number] [place] [address] 62554- 9167 Sep, [facility] [address], [place] [address]- 6337 Sep, [facility] [address] [place] [id number] [place] [address] 18773- 9354 Sep, [facility] [address], [place] [address]- 5457 Sep, [facility] [address] [place] [address] 46570- 0642 Sep, Pulmonary nodule R91.1 [facility] [address], [place] [address]- 0605 Aug, [facility] [address] [place] [address] 94353- 2633 Aug, Right renal mass N28.89 and Pulmonary nodule R91.1 [facility] [address], [place] [address]- 0289 Aug, Essential hypertension I10 ; Right renal mass N28.89 ; Chronic gastric ulcer, unspecified whether gastric ulcer hemorrhage or perforation present K25.7 ; Spondylosis of cervical region without myelopathy or radiculopathy M47.812 ; 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 and Hospital discharge follow-up Z09 [place] [address] [place] [address] 50911- 3721 14 Aug, 2017 [place] [address] [place] [id number] [place] [address] 23655- 8545 09 Aug, 2017 [place] [address] [place] [id number] [place] [address] 67755- 8926 Aug, [place] [address] [place] [id number] [place] [address] 61938- 2572 Aug, Pain syndrome, chronic G89.4 ; Lumbago with sciatica, right side M54.41 ; Lumbago with sciatica, left side M54.42 ; Other chronic pain G89.29 ; Cervicalgia M54.2 ; Controlled substance agreement signed Z79.899 and Essential hypertension I10 [place] [address] [place] [id number] [place] [address] 52165- 4987 02 Aug, 2017 [place] [address] [place] [id number] [place] [address] 77102- 0733 26 Jul, 2017 Encounter to establish care [...] polp removal/colonoscopy Hospitalization History heart attack x3 2690-7139 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
--- OUTSIDE RECORDS SUMMARY | 2018-05-02 12:51 | XMS REPORT ---
Author Author FARAZ ELY Organization [facility] Address [address] [place] [address] Care Team Providers Care Paddle Dyeing Machine Operator Name Role Phone JHOANA FARAZ Unavailable PROBLEMS Type Condition ICD9-CM Code EBX59-ET Code Onset Dates Condition Status SNOMED Code Problem Spondylosis of cervical region without myelopathy or radiculopathy M47.812 Active 640479513 Problem Body mass index (BMI) of 32.0-32.9 in adult Z68.32 Active 996737353 Problem Pulmonary nodule R91.1 Active 401580721 Problem Metabolic disorder, unspecified E88.9 Active 050747381 Problem 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3 Active 613013109 Problem Major depressive disorder, recurrent episode, moderate F33.1 Active 491552420 Problem Other obesity due to excess calories E66.09 Active 353191126 Problem GERD without esophagitis K21.9 Active 593610097 Problem Seasonal allergic rhinitis due to pollen J30.1 Active 29796774 Problem Chronic esophagogastric ulcer K25.7 Active 80404090 Problem Type 2 diabetes mellitus without complication, without long-term current use of insulin E11.9 Active 531612910 Problem Left kidney mass N28.89 Active 906236692 Problem Essential hypertension I10 Active 68567047 Problem Pain syndrome, chronic G89.4 Active 010960927 Problem Lumbago with sciatica, left side M54.42 Active 733868603 Problem Right renal mass N28.89 Active 886017404 Problem Lumbago with sciatica, right side M54.41 Active 393530343993883 Problem 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 Active 091349324 ALLERGIES Substance Reaction Event Type Date Status Ketorolac Tromethamine dizziness Drug Allergy Oct, Active Hydrocodone-Acetaminophen anaphylaxis Drug Allergy Oct, Active Feldene cintron's palsy Drug Allergy Oct, Active Doxycycline Monohydrate anaphylaxis Drug Allergy Oct, Active ENCOUNTERS Encounter Location Date Diagnosis [place] [address] [place] [id number] [place] [address] 93271- 1168 Mar, [place] [address] [address] February, [place] [address] 49378- 4681 February, 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 [facility] [address] [address] February, Strain of neck muscle, initial encounter S16.1XXA [place] [address] 08042- 7231 February, Type 2 diabetes mellitus without complication, [...] Seasonal allergic rhinitis due to pollen J30.1 [place] [address] [place] [id number] [place] [address] 86047- 0202 February, Essential hypertension I10 ; 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 ; Body mass index (BMI) of 32.0-32.9 in adult Z68.32 and Type 2 diabetes mellitus without complication, without long-term current use of insulin E11.9 [place] [address] [place] [address] [id number] [place] [address] 78276- 7530 February, Type 2 diabetes mellitus without complication, without long- term current use of insulin E11.9 [place] [address] [place] [id number] [place] [address] 11355- 4903 Jan, Lumbago with sciatica, right side M54.41 [facility] IN [facility] [address] [address] Jan, Sore throat J02.9 [facility] [address] [address] Dec, [facility] [address] [address] Dec, Type 2 diabetes mellitus without complication, without long- term current use of insulin E11.9 [facility] [address], [place] [address] 14 Dec, 2017 [facility] [address] [place] [id number] [place] [address] 97995- 5461 14 Dec, 2017 [facility] [id number] [address] Dec, [facility] [address] [place] [id number] [place] [address] 35162- 1524 Dec, Type 2 diabetes mellitus without complication, [...] pollen J30.1 and GERD without esophagitis K21.9 [facility] [address], [place] [address] 39[address] Dec, [facility] [address] [address] 99[address] Nov, [facility] [address], [place] [address] 8484 Nov, [facility] [address] [place] [address] [id number] [place] [address] 51202- 7382 14 Nov, 2017 [facility] [address] [place] [address] [id number] [place] [address] 58495- 8030 Nov, [facility] [address] [place] [id number] [place] [address] 52601- 4293 Oct, [facility] [address] 51204- 6553 Oct, [place] [address] [place] [address] [id number] [place] [address] 18451- 4247 Oct, [place] [address] 65167- 1164 Oct, Well woman exam with routine gynecological exam Z01.419 ; Screen for STD (sexually transmitted disease) Z11.3 ; Screening breast examination Z12.31 ; Type 2 diabetes mellitus without complication, without long -term current use of insulin E11.9 ; Other obesity due to excess calories E66.09 and Body mass index (BMI) of 32.0-32.9 in adult Z68.32 [place] [address] [place] [id number] [place] [address] 81734- 4251 Oct, Ganglion of left wrist M67.432 [place] [address] [id number] [place] [address] 58738- 6802 Oct, [facility] [address] [id number] [place] [address] 37192- 4957 Oct, [facility] [id number] [place] [address] 59187 -9914 Oct, Ganglion cyst M67.40 [facility] [address] [place] [id number] [place] [address] 73757- 4016 Oct, [facility] [address] [place] [address] [id number] [place] [address] 17007- 7510 Sep, [facility] [address] [place] [address] [id number] [place] [address] 22913- 4759 Sep, Major depressive disorder, recurrent episode, moderate F33.1 [facility] [id number] [place] [address] 16771- 2371 Sep, [facility] [id number] [place] [address] 15605- 4280 Sep, Right renal mass N28.89 [facility] [id number] [place] [address] 22970- 5763 Sep, [facility] [address] [place] [address] [id number] [place] [address] 82422- 2942 Sep, [facility] [address] [id number] [place] [address] 26765- 6067 Sep, Right renal mass N28.89 [facility] [id number] [place] [address] 30811- 3225 Sep, [facility] [address] [id number] [place] [address] 06530- 9300 Sep, [facility] [id number] [place] [address] 85631- 0040 Sep, [facility] [id number] [place] [address] 05281- 6073 Sep, [facility] [address] [id number] [place] [address] 08081- 9855 Sep, [facility] [address] [id number] [place] [address] 10487- 7876 Sep, [facility] [id number] [place] [address] 56444- 1303 Sep, Pulmonary nodule R91.1 [facility] [id number] [place] [address] 08885- 2113 Aug, [facility] [id number] [place] [address] 26821- 7316 Aug, Right renal mass N28.89 and Pulmonary nodule R91.1 [place] [address] [id number] [place] [address] 98632- 3841 16 Aug, 2017 Essential hypertension I10 ; Right renal mass N28.89 ; Chronic gastric ulcer, unspecified whether gastric ulcer hemorrhage or perforation present K25.7 ; Spondylosis of cervical region without myelopathy or radiculopathy M47.812 ; 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 and Hospital discharge follow-up Z09 [place] [address] 26703- 8544 14 Aug, 2017 [place] [address] 96861- 8974 Aug, [place] [address] 08798- 2533 Aug, [place] [address] [place] [id number] [place] [address] 65445- 0505 Aug, Pain syndrome, chronic G89.4 ; Lumbago with sciatica, right side M54.41 ; Lumbago with sciatica, left side M54.42 ; Other chronic pain G89.29 ; Cervicalgia M54.2 ; Controlled substance agreement signed Z79.899 and Essential hypertension I10 [place] [address] [place] [address] [id number] [place] [address] 44488- 3484 Aug, [place] [address] [place] [address] [id number] [place] [address] 83923- 9004 Jul, Encounter to establish care Z76.89 ; [...] SOCIAL HISTORY Never Assessed REASON FOR VISIT Cyst removal left wrist CBrumbackRN PLAN OF CARE VITAL SIGNS Height 68 in 2017-10-26 Weight 211.5 lbs 2017-10-26 Temperature 98.2 degrees Fahrenheit 2017-10-26 Heart Rate 64 bpm 2017-10-26 Respiratory Rate 16 2017-10-26 BMI 32.15 kg/m2 2017-10-26 Blood pressure systolic 130 mmHg 2017-10-26 Blood pressure diastolic 82 mmHg 2017-10-26 MEDICATIONS Medication Instructions Dosage Frequency Start Date End Date Duration Status Clopidogrel Bisulfate 75 MG Orally Once a day 1 tablet 24h Active Lipitor 10 mg Orally Once a day 1 tablet 24h 30 Active Fish Oil 1000 MG Orally twice a day 1 capsule 12h Active Aspirin 81 MG Orally Once a day 1 tablet 24h Active Lisinopril 20 mg Orally twice a day 1 tablet 12h 30 Active Januvia 100 mg Orally Once a day 1 tablet 24h 30 Active Sertraline HCl 25 MG Orally Once a day 1 tablet 24h Sep, 30 day (s) Active Valium 5 mg Orally once 30 minutes prior to scan- february repeat x 1 5mg tablet if needed Aug, 1 days Active Dexilant 60 mg Orally Once a day 1 capsule 24h Aug, 90 days Active Metoprolol Tartrate 100 MG Orally Twice a day 1 tablet with food 12h 30 Active Tizanidine HCl 4 MG Orally Three times a day 1 capsule as needed 8h 30 Active Sucralfate 1 GM Orally 4 times a day 1 tablet 6h Active Pioglitazone HCl-Metformin HCl 15-500 MG Orally 2 times a day 1/2 tablet 12h Active Oxycodone-Acetaminophen 7.5-325 MG Orally every 6 hrs 1 tablet as needed 6h Oct, 28 days Active RESULTS No Results PROCEDURES Procedure Date Ordered Result Body Site GANGLION CYST-ASP/INJ 2017-10-26 N/A ASPIRATE/INJ GANGLION CYST Oct 26, 2017 INSTRUCTIONS MEDICATIONS ADMINISTERED No Known Medications [...] polp removal/colonoscopy Hospitalization History heart attack x3 [id number] 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
--- OUTSIDE RECORDS SUMMARY | 2018-05-02 12:51 | XMS REPORT ---
Author Author PRISCILLA BLANCAS Organization [facility] Address [address] [place] [address] Care Team Providers Care Vending Manager Name Role Phone YONNY PRISCILLA Unavailable PROBLEMS Type Condition ICD9-CM Code ARW41-DV Code Onset Dates Condition Status SNOMED Code Problem Spondylosis of cervical region without myelopathy or radiculopathy M47.812 Active 548321527 Problem Body mass index (BMI) of 32.0-32.9 in adult Z68.32 Active 637818639 Problem Pulmonary nodule R91.1 Active 780344440 Problem Metabolic disorder, unspecified E88.9 Active 551396406 Problem 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3 Active 901741347 Problem Major depressive disorder, recurrent episode, moderate F33.1 Active 450245855 Problem Other obesity due to excess calories E66.09 Active 498315583 Problem GERD without esophagitis K21.9 Active 994697695 Problem Seasonal allergic rhinitis due to pollen J30.1 Active 92703292 Problem Chronic esophagogastric ulcer K25.7 Active 34037321 Problem Type 2 diabetes mellitus without complication, without long-term current use of insulin E11.9 Active 704118469 Problem Left kidney mass N28.89 Active 633245670 Problem Essential hypertension I10 Active 15700123 Problem Pain syndrome, chronic G89.4 Active 819379437 Problem Lumbago with sciatica, left side M54.42 Active 638162978 Problem Right renal mass N28.89 Active 490685034 Problem Lumbago with sciatica, right side M54.41 Active 043851922987554 Problem 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 Active 768721741 ALLERGIES No Information ENCOUNTERS Encounter Location Date Diagnosis [facility] [address] [facility] [id number] [address] Mar, [facility] [address] [place] [id number] [address] February, [place] [id number] [place] [address] 67904- 9243 February, 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 [facility] [place] [id number] [place] [address] 42186 -9398 February, Strain of neck muscle, initial encounter S16.1XXA [place] [id number] [place] [address] 41006- 4576 February, Type 2 diabetes mellitus without complication, [...] Seasonal allergic rhinitis due to pollen J30.1 [address] [place] [address] 73670- 2470 February, Essential hypertension I10 ; 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 ; Body mass index (BMI) of 32.0-32.9 in adult Z68.32 and Type 2 diabetes mellitus without complication, without long-term current use of insulin E11.9 [place] [address] [place] [address] 44994- 0378 February, Type 2 diabetes mellitus without complication, without long- term current use of insulin E11.9 [place] [address] [place] [address] 01372- 7234 Jan, Lumbago with sciatica, right side M54.41 [facility] [address] [place] [address] 77101 -8842 Jan, Sore throat J02.9 [place] [address] [place] [id number] [address]- 7479 Dec, [facility] [address] [place] [address] 33656- 8378 Dec, Type 2 diabetes mellitus without complication, without long- term current use of insulin E11.9 [place] [address] [place] [address] 88399- 2950 Dec, [place] [address] [place] [id number] [place] [address] 20628- 8181 Dec, [place] [address] [place] [address] 53379- 0562 Dec, [place] [address] [place] [id number] [place] [address] 24646- 6206 Dec, Type 2 diabetes mellitus without complication, [...] pollen J30.1 and GERD without esophagitis K21.9 [place] [address], [place] [address]- 3561 Dec, [place] [address], [place] [address]- 5895 Nov, [place] [address] [place] [id number] [place] [address] 12167- 4588 Nov, [facility] [address], [place] [address]- 2776 Nov, [place] [address] [place] [address] 31246- 6056 Nov, [facility] [address] [place] [address] 01923- 3766 Oct, [facility] [address] [place] [id number] [place] [address] 44792- 0423 Oct, [place] [address] [place] [id number] [place] [address] 02237- 9690 Oct, [facility] [address] [address]- 2829 Oct, Well woman exam with routine gynecological exam Z01.419 ; Screen for STD (sexually transmitted disease) Z11.3 ; Screening breast examination Z12.31 ; Type 2 diabetes mellitus without complication, without long -term current use of insulin E11.9 ; Other obesity due to excess calories E66.09 and Body mass index (BMI) of 32.0-32.9 in adult Z68.32 [place] [address] [place] [id number] [place] [address] 89277- 2677 Oct, Ganglion of left wrist M67.432 [place] [address] [place] [id number] [place] [address] 90375- 0941 Oct, [place] [address] [place] [id number] [place] [address] 17509- 6066 Oct, [facility] [address] [place] [address] 68048 -0405 Oct, Ganglion cyst M67.40 [facility] [address] [place] [id number] [place] [address] 78325- 0687 Oct, [place] [address] [place] [address] 65898- 6124 Sep, [place] [address] [place] [id number] [place] [address] 96703- 2765 Sep, Major depressive disorder, recurrent episode, moderate F33.1 [place] [address] [place] [id number] [place] [address] 05700- 9770 Sep, [facility] [address], [place] [address]- 4891 Sep, Right renal mass N28.89 [facility] [address] [place] [address] 02846- 1906 Sep, [facility] [address] [place] [id number] [place] [address] 75903- 3210 Sep, [facility] [address] [place] [id number] [place] [address] 39772- 7986 Sep, Right renal mass N28.89 [facility] [address] [place] [id number] [place] [address] 06369- 1067 Sep, [facility] [address] [place] [id number] [place] [address] 54897- 4978 Sep, [facility] [address] [place] [id number] [place] [address] 73995- 2612 Sep, [facility] [address], [place] [address]- 1093 Sep, [facility] [address] [place] [id number] [place] [address] 41241- 7857 Sep, [facility] [address], [place] [address]- 2815 Sep, [facility] [address] [place] [address] 10693- 1943 Sep, Pulmonary nodule R91.1 [facility] [address], [place] [address]- 1021 Aug, [facility] [address] [place] [address] 91694- 3571 Aug, Right renal mass N28.89 and Pulmonary nodule R91.1 [facility] [address], [place] [address]- 4126 Aug, Essential hypertension I10 ; Right renal mass N28.89 ; Chronic gastric ulcer, unspecified whether gastric ulcer hemorrhage or perforation present K25.7 ; Spondylosis of cervical region without myelopathy or radiculopathy M47.812 ; 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 and Hospital discharge follow-up Z09 [place] [address] [place] [address] 74573- 9603 14 Aug, 2017 [place] [address] [place] [id number] [place] [address] 97038- 1391 09 Aug, 2017 [place] [address] [place] [id number] [place] [address] 30102- 4647 Aug, [place] [address] [place] [id number] [place] [address] 10727- 6558 Aug, Pain syndrome, chronic G89.4 ; Lumbago with sciatica, right side M54.41 ; Lumbago with sciatica, left side M54.42 ; Other chronic pain G89.29 ; Cervicalgia M54.2 ; Controlled substance agreement signed Z79.899 and Essential hypertension I10 [place] [address] [place] [id number] [place] [address] 96057- 0667 02 Aug, 2017 [place] [address] [place] [id number] [place] [address] 28307- 8409 26 Jul, 2017 Encounter to establish care [...] HISTORY Never Assessed REASON FOR VISIT CT PLAN OF CARE VITAL SIGNS MEDICATIONS Unknown [...] polp removal/colonoscopy Hospitalization History heart attack x3 1182-3807 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
--- OUTSIDE RECORDS SUMMARY | 2018-05-02 12:51 | XMS REPORT ---
Author Author VELIA BORDEN Organization [facility] Address [address] [place] [address] Care Team Providers Care Highway Research Engineer Name Role Phone VELIA BORDEN Unavailable PROBLEMS Type Condition ICD9-CM Code DNX93-AT Code Onset Dates Condition Status SNOMED Code Problem Spondylosis of cervical region without myelopathy or radiculopathy M47.812 Active 397587800 Problem Body mass index (BMI) of 32.0-32.9 in adult Z68.32 Active 500595924 Problem Pulmonary nodule R91.1 Active 541850642 Problem Metabolic disorder, unspecified E88.9 Active 869462001 Problem 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3 Active 903429291 Problem Major depressive disorder, recurrent episode, moderate F33.1 Active 410413984 Problem Other obesity due to excess calories E66.09 Active 738445073 Problem GERD without esophagitis K21.9 Active 348582659 Problem Seasonal allergic rhinitis due to pollen J30.1 Active 60354883 Problem Chronic esophagogastric ulcer K25.7 Active 60919314 Problem Type 2 diabetes mellitus without complication, without long-term current use of insulin E11.9 Active 127454549 Problem Left kidney mass N28.89 Active 649876434 Problem Essential hypertension I10 Active 30371971 Problem Pain syndrome, chronic G89.4 Active 375979471 Problem Lumbago with sciatica, left side M54.42 Active 599929941 Problem Right renal mass N28.89 Active 506287322 Problem Lumbago with sciatica, right side M54.41 Active 571432275987971 Problem 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 Active [id number] ALLERGIES No Information ENCOUNTERS Encounter Location Date Diagnosis [facility] [address] [facility] [id number] [address] Mar, [facility] [id number] [place] [address] 45281- 1106 February, [place] [address] [place] [address] 17255- 4735 February, 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 [facility] [place] [address] [place] [id number] [place] [address] 45237 -2219 February, Strain of neck muscle, initial encounter S16.1[place] [id number] [place] [address] 64232- 6637 February, Type 2 diabetes mellitus without complication, [...] Seasonal allergic rhinitis due to pollen J30.1 [address] [place] [address] 97259- 9454 February, Essential hypertension I10 ; 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 ; Body mass index (BMI) of 32.0-32.9 in adult Z68.32 and Type 2 diabetes mellitus without complication, without long-term current use of insulin E11.9 [place] [address] [place] [address] 61075- 5336 February, Type 2 diabetes mellitus without complication, without long- term current use of insulin E11.9 [place] [address] [place] [id number] [place] [address] 21878- 6061 Jan, Lumbago with sciatica, right side M54.41 [facility] [address] [place] [id number] [place] [address] 07847 -1934 Jan, Sore throat J02.9 [place] [address] [id number] [address] Dec, [facility] [id number] [place] [address] 79237- 5670 Dec, Type 2 diabetes mellitus without complication, without long- term current use of insulin E11.9 [facility] [address] [place] [address] 49975- 9913 14 Dec, 2017 [facility] [address] [place] [id number] [place] [address] 65416- 4835 Dec, [facility] [address] [place] [address] [place] [address] 68895- 8838 Dec, [place] [address] [place] [address] [place] [address] 53204- 5145 13 Dec, 2017 Type 2 diabetes mellitus without [...] pollen J30.1 and GERD without esophagitis K21.9 [place] [address] [address] Dec, [facility] [address] [address] 6587 Nov, [place] [address] [place] [address] [place] [address] 37593- 1407 Nov, [facility] [address] [address] 2282 Nov, [place] [address] [place] [id number] [place] [address] 45042- 2907 Nov, [facility] [address] [address] 3241 Oct, [facility] [address] [place] [id number] [place] [address] 34215- 1276 Oct, [facility] [address] [place] [address] [place] [address] 76314- 0289 Oct, [facility] [address] [place] [address] [place] [address] 06115- 9828 Oct, Well woman exam with routine gynecological exam Z01.419 ; Screen for STD (sexually transmitted disease) Z11.3 ; Screening breast examination Z12.31 ; Type 2 diabetes mellitus without complication, without long -term current use of insulin E11.9 ; Other obesity due to excess calories E66.09 and Body mass index (BMI) of 32.0-32.9 in adult Z68.32 [place] [address] [place] [address] [place] [address] 56381- 5630 Oct, Ganglion of left wrist M67.432 [place] [address] [place] [address] [place] [address] 48411- 3847 Oct, [place] [address] [place] [address] [place] [address] 58329- 2511 Oct, [facility] [address] [place] [address] 65784 -2654 Oct, Ganglion cyst M67.40 [facility] [address] [place] [id number] [place] [address] 87018- 3193 Oct, [place] [address] [place] [address] 46123- 1615 Sep, [place] [address] [place] [address] [place] [address] 29660- 4397 Sep, Major depressive disorder, recurrent episode, moderate F33.1 [place] [address] [place] [address] [place] [address] 54621- 7714 Sep, [facility] [address] [address] 5284 Sep, Right renal mass N28.89 [facility] [address] [place] [id number] [place] [address] 58046- 8276 Sep, [facility] [address] [place] [address] 54022- 4850 Sep, [facility] [address] [place] [address] [place] [address] 78314- 8134 Sep, Right renal mass N28.89 [facility] [address] [place] [address] [place] [address] 18658- 7217 Sep, [facility] [address] [place] [address] [place] [address] 95763- 7376 Sep, [facility] [address] [place] [address] [place] [address] 08092- 2888 Sep, [facility] [address] [address] 2896 Sep, [facility] [address] [place] [address] 86732- 0467 Sep, [facility] [address] [address]- 2120 Sep, [facility] [address] [place] [address] 26887- 8518 Sep, Pulmonary nodule R91.1 [facility] [address] [address] Aug, [facility] [address] [place] [address] 89267- 5228 Aug, Right renal mass N28.89 and Pulmonary nodule R91.1 [facility] [address] [address] 8030 Aug, Essential hypertension I10 ; Right renal mass N28.89 ; Chronic gastric ulcer, unspecified whether gastric ulcer hemorrhage or perforation present K25.7 ; Spondylosis of cervical region without myelopathy or radiculopathy M47.812 ; 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 and Hospital discharge follow-up Z09 [place] [address] [address]- 5952 14 Aug, 2017 [place] [address] [place] [address] [place] [address] 76885- 3087 Aug, [place] [address] [place] [address] [place] [address] 42101- 1532 Aug, [place] [address] [place] [address] [place] [address] 59340- 7864 Aug, Pain syndrome, chronic G89.4 ; Lumbago with sciatica, right side M54.41 ; Lumbago with sciatica, left side M54.42 ; Other chronic pain G89.29 ; Cervicalgia M54.2 ; Controlled substance agreement signed Z79.899 and Essential hypertension I10 [place] [address] [place] [address] 75974- 8528 02 Aug, 2017 [place] [address] [place] [id number] [place] [address] 22770- 0011 26 Jul, 2017 Encounter to establish care [...] SOCIAL HISTORY Never Assessed REASON FOR VISIT Depression. PLAN OF CARE Activity Details Follow Up prn Reason: VITAL SIGNS MEDICATIONS Unknown Medications RESULTS No Results PROCEDURES Procedure Date Ordered Result Body Site Psychotherapy, patient &/family, 30 minutes, established patient Oct 04, 2017 INSTRUCTIONS MEDICATIONS ADMINISTERED No Known Medications [...] polp removal/colonoscopy Hospitalization History heart attack x3 [id number] 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
--- OUTSIDE RECORDS SUMMARY | 2018-05-02 12:51 | XMS REPORT ---
Author Author PRISCILLA BLANCAS Organization [facility] Address [address] [place] [address] Care Team Providers Care Pan Operator Name Role Phone YONNY PRISCILLA Unavailable PROBLEMS Type Condition ICD9-CM Code WJY02-OV Code Onset Dates Condition Status SNOMED Code Problem Spondylosis of cervical region without myelopathy or radiculopathy M47.812 Active 557232635 Problem Body mass index (BMI) of 32.0-32.9 in adult Z68.32 Active 316553612 Problem Pulmonary nodule R91.1 Active 961900888 Problem Metabolic disorder, unspecified E88.9 Active 024346869 Problem 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3 Active 933006179 Problem Major depressive disorder, recurrent episode, moderate F33.1 Active 778936623 Problem Other obesity due to excess calories E66.09 Active 280492939 Problem GERD without esophagitis K21.9 Active 423484933 Problem Seasonal allergic rhinitis due to pollen J30.1 Active 35798136 Problem Chronic esophagogastric ulcer K25.7 Active 06678603 Problem Type 2 diabetes mellitus without complication, without long-term current use of insulin E11.9 Active 034291488 Problem Left kidney mass N28.89 Active 905175187 Problem Essential hypertension I10 Active 89060097 Problem Pain syndrome, chronic G89.4 Active 622522107 Problem Lumbago with sciatica, left side M54.42 Active 350906893 Problem Right renal mass N28.89 Active 765835374 Problem Lumbago with sciatica, right side M54.41 Active 962827857374701 Problem 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 Active 523504690 ALLERGIES No Information ENCOUNTERS Encounter Location Date Diagnosis [facility] [address] [facility] [id number] [address] 9[address] Mar, [facility] [address] [place] [id number] [address] 2510 February, [place] [address] [place] [address] 00736- 2486 February, 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 [facility] [place] [address] [place] [address] 62541 -9373 February, Strain of neck muscle, initial encounter S16.1[place] [id number] [place] [address] 73983- 8585 February, Type 2 diabetes mellitus without complication, [...] Seasonal allergic rhinitis due to pollen J30.1 [address] [place] [address] 45013- 9613 February, Essential hypertension I10 ; 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 ; Body mass index (BMI) of 32.0-32.9 in adult Z68.32 and Type 2 diabetes mellitus without complication, without long-term current use of insulin E11.9 [place] [address] [place] [address] 81380- 6665 February, Type 2 diabetes mellitus without complication, without long- term current use of insulin E11.9 [place] [address] [place] [address] 70457- 3062 Jan, Lumbago with sciatica, right side M54.41 [facility] IN [facility] [address] [place] [address] 71761 -0552 Jan, Sore throat J02.9 [place] [address] [id number] [address]- 8623 Dec, [facility] [address] [place] [address] 38576- 4826 Dec, Type 2 diabetes mellitus without complication, without long- term current use of insulin E11.9 [place] [address] [place] [address] 12543- 5305 Dec, [place] [address] [place] [id number] [place] [address] 85451- 7621 Dec, [place] [address] [place] [address] 94699- 8430 Dec, [place] [address] [place] [id number] [place] [address] 58041- 4091 Dec, Type 2 diabetes mellitus without complication, [...] pollen J30.1 and GERD without esophagitis K21.9 [place] [address] [address]- 3765 Dec, [place] [address] [address]- 8119 Nov, [place] [address] [place] [id number] [place] [address] 61544- 1246 Nov, [facility] [address], [place] [address]- 4693 Nov, [place] [address] [place] [address] 37444- 2818 Nov, [facility] [address] [place] [address] 79053- 8780 Oct, [facility] [address] [place] [id number] [place] [address] 12428- 7350 Oct, [place] [address] [place] [id number] [place] [address] 21878- 2734 Oct, [facility] [address] 97455- 0749 Oct, Well woman exam with routine gynecological exam Z01.419 ; Screen for STD (sexually transmitted disease) Z11.3 ; Screening breast examination Z12.31 ; Type 2 diabetes mellitus without complication, without long -term current use of insulin E11.9 ; Other obesity due to excess calories E66.09 and Body mass index (BMI) of 32.0-32.9 in adult Z68.32 [place] [address] [place] [id number] [place] [address] 83398- 2195 Oct, Ganglion of left wrist M67.432 [place] [address] [place] [id number] [place] [address] 42314- 3098 Oct, [place] [address] [place] [id number] [place] [address] 09216- 3338 Oct, [facility] [address] [place] [address] 28312 -7975 Oct, Ganglion cyst M67.40 [facility] [address] [place] [id number] [place] [address] 06541- 0828 Oct, [place] [address] [place] [address] 75075- 1182 Sep, [place] [address] [place] [id number] [place] [address] 13476- 1279 Sep, Major depressive disorder, recurrent episode, moderate F33.1 [place] [address] [place] [id number] [place] [address] 99802- 8584 Sep, [facility] [address], [place] [address]- 8127 Sep, Right renal mass N28.89 [facility] [address] [place] [address] 98801- 2766 Sep, [facility] [address] [place] [id number] [place] [address] 05341- 8241 Sep, [facility] [address] [place] [id number] [place] [address] 63222- 4913 Sep, Right renal mass N28.89 [facility] [address] [place] [id number] [place] [address] 17788- 2995 Sep, [facility] [address] [place] [id number] [place] [address] 26834- 3743 Sep, [facility] [address] [place] [id number] [place] [address] 37763- 3274 Sep, [facility] [address], [place] [address]- 6553 Sep, [facility] [address] [place] [id number] [place] [address] 68210- 5536 Sep, [facility] [address], [place] [address]- 9932 Sep, [facility] [address] [place] [address] 86005- 1256 Sep, Pulmonary nodule R91.1 [facility] [address] [address]- 0665 Aug, [facility] [address] [place] [address] 14037- 1893 Aug, Right renal mass N28.89 and Pulmonary nodule R91.1 [facility] [address], [place] [address]- 2740 Aug, Essential hypertension I10 ; Right renal mass N28.89 ; Chronic gastric ulcer, unspecified whether gastric ulcer hemorrhage or perforation present K25.7 ; Spondylosis of cervical region without myelopathy or radiculopathy M47.812 ; 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 and Hospital discharge follow-up Z09 [place] [address] [place] [address] 15177- 4265 14 Aug, 2017 [place] [address] [place] [id number] [place] [address] 81640- 3289 09 Aug, 2017 [place] [address] [place] [id number] [place] [address] 27897- 1957 Aug, [place] [address] [place] [id number] [place] [address] 46528- 8467 Aug, Pain syndrome, chronic G89.4 ; Lumbago with sciatica, right side M54.41 ; Lumbago with sciatica, left side M54.42 ; Other chronic pain G89.29 ; Cervicalgia M54.2 ; Controlled substance agreement signed Z79.899 and Essential hypertension I10 [place] [address] [place] [id number] [place] [address] 45405- 0405 02 Aug, 2017 [place] [address] [place] [id number] [place] [address] 09642- 1715 26 Jul, 2017 Encounter to establish care [...] SOCIAL HISTORY Never Assessed REASON FOR VISIT Concerns for Depression PLAN OF CARE VITAL SIGNS MEDICATIONS Medication Instructions Dosage Frequency Start Date End Date Duration Status Sertraline HCl 25 MG Orally Once a day 1 tablet 24h Sep, 30 day (s) Active RESULTS No Results PROCEDURES No Known [...] polp removal/colonoscopy Hospitalization History heart attack x3 8468-4256 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
--- OUTSIDE RECORDS SUMMARY | 2018-05-02 12:52 | XMS REPORT ---
Author Author PRISCILLA BLANCAS Organization [facility] Address [address] [place] [address] Care Team Providers Care Headwaiter/Headwaitress Name Role Phone YONNY PRISCILLA Unavailable PROBLEMS Type Condition ICD9-CM Code [id number] Code Onset Dates Condition Status SNOMED Code Problem Spondylosis of cervical region without myelopathy or radiculopathy M47.812 Active 754528366 Problem Body mass index (BMI) of 32.0-32.9 in adult Z68.32 Active 349727127 Problem Pulmonary nodule R91.1 Active 320004095 Problem Metabolic disorder, unspecified E88.9 Active 325276737 Problem 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3 Active 620839619 Problem Major depressive disorder, recurrent episode, moderate F33.1 Active 794936883 Problem Other obesity due to excess calories E66.09 Active 522098335 Problem GERD without esophagitis K21.9 Active 667027354 Problem Seasonal allergic rhinitis due to pollen J30.1 Active 66555082 Problem Chronic esophagogastric ulcer K25.7 Active 09116216 Problem Type 2 diabetes mellitus without complication, without long-term current use of insulin E11.9 Active 661196225 Problem Left kidney mass N28.89 Active 558120984 Problem Essential hypertension I10 Active 77349194 Problem Pain syndrome, chronic G89.4 Active 854739427 Problem Lumbago with sciatica, left side M54.42 Active 909490162 Problem Right renal mass N28.89 Active 966187757 Problem Lumbago with sciatica, right side M54.41 Active 560627901744869 Problem 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 Active [id number] ALLERGIES No Information ENCOUNTERS Encounter Location Date Diagnosis [facility] [address] [facility] [id number] [address] Mar, [facility] [address] [place] [id number] [address] February, [place] [address] [address] [place] [address] 35493- 9389 February, 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 [facility] [place] [address] [address] [place] [address] 77553 -9185 February, Strain of neck muscle, initial encounter S16.1[place]A [place] [id number] [place] [address] 64863- 2404 February, Type 2 diabetes mellitus without complication, [...] Seasonal allergic rhinitis due to pollen J30.1 [address] [place] [address] 90591- 2688 February, Essential hypertension I10 ; 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 ; Body mass index (BMI) of 32.0-32.9 in adult Z68.32 and Type 2 diabetes mellitus without complication, without long-term current use of insulin E11.9 [place] [address] [place] [address] 32345- 4976 February, Type 2 diabetes mellitus without complication, without long- term current use of insulin E11.9 [place] [address] [place] [address] 36390- 9729 Jan, Lumbago with sciatica, right side M54.41 [facility] [address] [place] [address] 30834 -6762 Jan, Sore throat J02.9 [place] [address] [place] [id number] [address] Dec, [facility] [address] [place] [address] 48549- 5686 Dec, Type 2 diabetes mellitus without complication, without long- term current use of insulin E11.9 [place] [address] [place] [address] 55851- 4295 Dec, [place] [address] [place] [id number] [place] [address] 95568- 9420 Dec, [place] [address] [place] [address] 53669- 2313 Dec, [place] [address] [place] [id number] [place] [address] 43136- 2298 Dec, Type 2 diabetes mellitus without complication, [...] pollen J30.1 and GERD without esophagitis K21.9 [place] [address] [address] Dec, [place] [address] [address] 39[address] Nov, [place] [address] [place] [id number] [place] [address] 59420- 3310 Nov, [facility] [address] [address] 7899 Nov, [place] [address] [place] [address] 29848- 6402 Nov, [facility] [address] [place] [address] 98738- 1319 Oct, [facility] [address] [place] [id number] [place] [address] 82731- 1342 Oct, [place] [address] [place] [id number] [place] [address] 06485- 1975 Oct, [facility] [address] [address]72- 5296 Oct, Well woman exam with routine gynecological exam Z01.419 ; Screen for STD (sexually transmitted disease) Z11.3 ; Screening breast examination Z12.31 ; Type 2 diabetes mellitus without complication, without long -term current use of insulin E11.9 ; Other obesity due to excess calories E66.09 and Body mass index (BMI) of 32.0-32.9 in adult Z68.32 [place] [address] [place] [id number] [place] [address] 07928- 0246 Oct, Ganglion of left wrist M67.432 [place] [address] [place] [id number] [place] [address] 39947- 5103 Oct, [place] [address] [place] [id number] [place] [address] 21046- 7902 Oct, [facility] [address] [place] [address] 13153 -7123 Oct, Ganglion cyst M67.40 [facility] [address] [place] [id number] [place] [address] 23942- 9173 Oct, [place] [address] [place] [address] 70309- 2244 Sep, [place] [address] [place] [id number] [place] [address] 55637- 6117 Sep, Major depressive disorder, recurrent episode, moderate F33.1 [place] [address] [place] [id number] [place] [address] 47002- 0668 Sep, [facility] [address] [address] 0600 Sep, Right renal mass N28.89 [facility] [address] [place] [address] 34765- 8086 Sep, [facility] [address] [place] [id number] [place] [address] 45665- 1081 Sep, [facility] [address] [place] [id number] [place] [address] 54197- 9925 Sep, Right renal mass N28.89 [facility] [address] [place] [id number] [place] [address] 51354- 2597 Sep, [facility] [address] [place] [id number] [place] [address] 65511- 7839 Sep, [facility] [address] [place] [id number] [place] [address] 34797- 0555 Sep, [facility] [address] [address] 8411 Sep, [facility] [address] [place] [id number] [place] [address] 12302- 9090 Sep, [facility] [address] [address] 7306 Sep, [facility] [address] [place] [address] 97984- 1596 Sep, Pulmonary nodule R91.1 [facility] [address] [address] 5748 Aug, [facility] [address] [place] [address] 40702- 0246 Aug, Right renal mass N28.89 and Pulmonary nodule R91.1 [facility] [address] [address] 0[address] Aug, Essential hypertension I10 ; Right renal mass N28.89 ; Chronic gastric ulcer, unspecified whether gastric ulcer hemorrhage or perforation present K25.7 ; Spondylosis of cervical region without myelopathy or radiculopathy M47.812 ; 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 and Hospital discharge follow-up Z09 [place] [address] [place] [address] 63460- 6471 14 Aug, 2017 [place] [address] [place] [id number] [place] [address] 76392- 6253 09 Aug, 2017 [place] [address] [place] [id number] [place] [address] 07976- 0703 Aug, [place] [address] [place] [id number] [place] [address] 32041- 4175 Aug, Pain syndrome, chronic G89.4 ; Lumbago with sciatica, right side M54.41 ; Lumbago with sciatica, left side M54.42 ; Other chronic pain G89.29 ; Cervicalgia M54.2 ; Controlled substance agreement signed Z79.899 and Essential hypertension I10 [place] [address] [place] [id number] [place] [address] 79499- 1833 02 Aug, 2017 [place] [address] [place] [id number] [place] [address] 86724- 4060 26 Jul, 2017 Encounter to establish care [...] polp removal/colonoscopy Hospitalization History heart attack x3 [phone] 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
--- OUTSIDE RECORDS SUMMARY | 2018-05-02 12:52 | XMS REPORT ---
Author Author PRISCILLA BLANCAS Organization [facility] Address [address] [place] [address] Care Team Providers Care Director Of Partnerships Name Role Phone YONNY PRISCILLA Unavailable PROBLEMS Type Condition ICD9-CM Code WIW25-RO Code Onset Dates Condition Status SNOMED Code Problem Spondylosis of cervical region without myelopathy or radiculopathy M47.812 Active 421857184 Problem Body mass index (BMI) of 32.0-32.9 in adult Z68.32 Active 188317128 Problem Pulmonary nodule R91.1 Active 303929571 Problem Metabolic disorder, unspecified E88.9 Active 461237234 Problem 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3 Active 874585455 Problem Major depressive disorder, recurrent episode, moderate F33.1 Active 896733520 Problem Other obesity due to excess calories E66.09 Active 387475591 Problem GERD without esophagitis K21.9 Active 196919828 Problem Seasonal allergic rhinitis due to pollen J30.1 Active 18623092 Problem Chronic esophagogastric ulcer K25.7 Active 35016744 Problem Type 2 diabetes mellitus without complication, without long-term current use of insulin E11.9 Active 453100143 Problem Left kidney mass N28.89 Active 113356533 Problem Essential hypertension I10 Active 81972482 Problem Pain syndrome, chronic G89.4 Active 306996206 Problem Lumbago with sciatica, left side M54.42 Active 234038025 Problem Right renal mass N28.89 Active 361575824 Problem Lumbago with sciatica, right side M54.41 Active 799249530329653 Problem 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 Active [id number] ALLERGIES No Information ENCOUNTERS Encounter Location Date Diagnosis [facility] [address] [facility] [id number] [address] Mar, [facility] [address] [id number] [address] February, [place] [address] [place] [address] 55411- 4884 February, 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 [facility] [place] [address] [place] [address] 60178 -3225 February, Strain of neck muscle, initial encounter S16.1XXA [place] [id number] [place] [address] 99779- 2813 February, Type 2 diabetes mellitus without complication, [...] Seasonal allergic rhinitis due to pollen J30.1 [address] [place] [address] 43607- 0243 February, Essential hypertension I10 ; 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 ; Body mass index (BMI) of 32.0-32.9 in adult Z68.32 and Type 2 diabetes mellitus without complication, without long-term current use of insulin E11.9 [place] [address] [place] [address] 65548- 4443 February, Type 2 diabetes mellitus without complication, without long- term current use of insulin E11.9 [place] [address] [place] [address] 89201- 8852 Jan, Lumbago with sciatica, right side M54.41 [facility] [address] [place] [address] 36057 -5161 Jan, Sore throat J02.9 [place] [address] [id number] [address]- 9540 Dec, [facility] [address] [place] [address] 73559- 0141 Dec, Type 2 diabetes mellitus without complication, without long- term current use of insulin E11.9 [place] [address] [place] [address] 55603- 3714 Dec, [place] [address] [place] [id number] [place] [address] 31952- 8154 Dec, [place] [address] [place] [address] 61491- 0980 Dec, [place] [address] [place] [id number] [place] [address] 50742- 5631 Dec, Type 2 diabetes mellitus without complication, [...] pollen J30.1 and GERD without esophagitis K21.9 [place] [address], [place] [address]- 4665 Dec, [place] [address], [place] [address]- 8695 Nov, [place] [address] [place] [id number] [place] [address] 94315- 7377 Nov, [facility] [address], [place] [address]- 6757 Nov, [place] [address] [place] [address] 91520- 6910 Nov, [facility] [address] [place] [address] 85655- 1885 Oct, [facility] [address] [place] [id number] [place] [address] 19869- 7526 Oct, [place] [address] [place] [id number] [place] [address] 08694- 2218 Oct, [facility] [address] [address]- 8491 Oct, Well woman exam with routine gynecological exam Z01.419 ; Screen for STD (sexually transmitted disease) Z11.3 ; Screening breast examination Z12.31 ; Type 2 diabetes mellitus without complication, without long -term current use of insulin E11.9 ; Other obesity due to excess calories E66.09 and Body mass index (BMI) of 32.0-32.9 in adult Z68.32 [place] [address] [place] [id number] [place] [address] 23617- 3061 Oct, Ganglion of left wrist M67.432 [place] [address] [place] [id number] [place] [address] 38918- 6689 Oct, [place] [address] [place] [id number] [place] [address] 56535- 6389 Oct, [facility] [address] [place] [address] 40530 -7080 Oct, Ganglion cyst M67.40 [facility] [address] [place] [id number] [place] [address] 07566- 1003 Oct, [place] [address] [place] [address] 34384- 6975 Sep, [place] [address] [place] [id number] [place] [address] 62887- 0408 Sep, Major depressive disorder, recurrent episode, moderate F33.1 [place] [address] [place] [id number] [place] [address] 65007- 8820 Sep, [facility] [address], [place] [address]- 0895 Sep, Right renal mass N28.89 [facility] [address] [place] [address] 51028- 9506 Sep, [facility] [address] [place] [id number] [place] [address] 00908- 7436 Sep, [facility] [address] [place] [id number] [place] [address] 94424- 9518 Sep, Right renal mass N28.89 [facility] [address] [place] [id number] [place] [address] 00877- 6804 Sep, [facility] [address] [place] [id number] [place] [address] 45842- 0190 Sep, [facility] [address] [place] [id number] [place] [address] 25063- 4446 Sep, [facility] [address], [place] [address]- 7131 Sep, [facility] [address] [place] [id number] [place] [address] 84030- 9808 Sep, [facility] [address], [place] [address]- 0827 Sep, [facility] [address] [place] [address] 30399- 0350 Sep, Pulmonary nodule R91.1 [facility] [address], [place] [address]- 6583 Aug, [facility] [address] [place] [address] 04880- 3568 Aug, Right renal mass N28.89 and Pulmonary nodule R91.1 [facility] [address], [place] [address]- 0963 Aug, Essential hypertension I10 ; Right renal mass N28.89 ; Chronic gastric ulcer, unspecified whether gastric ulcer hemorrhage or perforation present K25.7 ; Spondylosis of cervical region without myelopathy or radiculopathy M47.812 ; 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 and Hospital discharge follow-up Z09 [place] [address] [place] [address] 09464- 1969 14 Aug, 2017 [place] [address] [place] [id number] [place] [address] 42939- 6600 09 Aug, 2017 [place] [address] [place] [id number] [place] [address] 68696- 9567 Aug, [place] [address] [place] [id number] [place] [address] 30800- 7539 Aug, Pain syndrome, chronic G89.4 ; Lumbago with sciatica, right side M54.41 ; Lumbago with sciatica, left side M54.42 ; Other chronic pain G89.29 ; Cervicalgia M54.2 ; Controlled substance agreement signed Z79.899 and Essential hypertension I10 [place] [address] [place] [id number] [place] [address] 04235- 3362 02 Aug, 2017 [place] [address] [place] [id number] [place] [address] 02126- 6692 26 Jul, 2017 Encounter to establish care [...] CARE VITAL SIGNS MEDICATIONS Unknown Medications RESULTS Name Result Date Reference Range CT Scan : Abdomen & Pelvis w/o & w/ Contrast 2017-09-29 PROCEDURES No Known procedures INSTRUCTIONS MEDICATIONS ADMINISTERED [...] polp removal/colonoscopy Hospitalization History heart attack x3 [phone] 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
--- OUTSIDE RECORDS SUMMARY | 2018-05-02 12:52 | XMS REPORT ---
Author Author BLANCASNADER YeeELE Organization [facility] Address [address] [place] [address] Care Team Providers Care Apartment Groundskeeper Name Role Phone BLANCASNADER YeeELE Unavailable PROBLEMS Type Condition ICD9-CM Code [id number] Code Onset Dates Condition Status SNOMED Code Problem Spondylosis of cervical region without myelopathy or radiculopathy M47.812 Active 627641026 Problem Body mass index (BMI) of 32.0-32.9 in adult Z68.32 Active 830461212 Problem Pulmonary nodule R91.1 Active 447475323 Problem Metabolic disorder, unspecified E88.9 Active 998032068 Problem 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3 Active 713832711 Problem Major depressive disorder, recurrent episode, moderate F33.1 Active 243998774 Problem Other obesity due to excess calories E66.09 Active 844655982 Problem GERD without esophagitis K21.9 Active 788310749 Problem Seasonal allergic rhinitis due to pollen J30.1 Active 29775008 Problem Chronic esophagogastric ulcer K25.7 Active 55372716 Problem Type 2 diabetes mellitus without complication, without long-term current use of insulin E11.9 Active 294949822 Problem Left kidney mass N28.89 Active 090927122 Problem Essential hypertension I10 Active 05952892 Problem Pain syndrome, chronic G89.4 Active 821725825 Problem Lumbago with sciatica, left side M54.42 Active 921003634 Problem Right renal mass N28.89 Active 652674565 Problem Lumbago with sciatica, right side M54.41 Active 595698943325539 Problem 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 Active 948399726 ALLERGIES Substance Reaction Event Type Date Status Hydrocodone-Acetaminophen anaphylaxis Drug Allergy Jul, Active Feldene cintron's palsy Drug Allergy Jul, Active Doxycycline Monohydrate anaphylaxis Drug Allergy Jul, Active ENCOUNTERS Encounter Location Date Diagnosis [facility] [id number] [place] [address] 47937- 1463 February, Type 2 diabetes mellitus without complication, [...] Seasonal allergic rhinitis due to pollen J30.1 [place] [address] 29[address]- [address] February, Essential hypertension I10 ; 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 ; Body mass index (BMI) of 32.0-32.9 in adult Z68.32 and Type 2 diabetes mellitus without complication, without long-term current use of insulin E11.9 [place] [address] 83491- 8003 February, Type 2 diabetes mellitus without complication, without long- term current use of insulin E11.9 [place] [address] 13635- 5357 Jan, Lumbago with sciatica, right side M54.41 [facility] [id number] [place] [address] 92928 -5317 Jan, Sore throat J02.9 [place] [id number] [place] [address] 13056- 5634 Dec, [place] [address] 69288- 2375 Dec, Type 2 diabetes mellitus without complication, without long- term current use of insulin E11.9 [place] [address] 35013- 2085 Dec, [place] [id number] [address] Dec, [facility] [id number] [place] [address] 50924- 9747 Dec, [facility] [id number] [place] [address] 97686- 5656 Dec, Type 2 diabetes mellitus without complication, [...] pollen J30.1 and GERD without esophagitis K21.9 [place] [id number] [place] [address] 74032- 2887 Dec, [place] [id number] [place] [address] 89295- 1108 Nov, [place] [id number] [place] [address] 07519- 8095 Nov, [place] [address] [place] [address] 84665- 8498 Nov, [facility] [id number] [place] [address] 90061- 1955 Nov, [facility] [id number] [place] [address] 89743- 2560 Oct, [place] [id number] [place] [address] 236134- 8355 Oct, [facility] [id number] [place] [address] 24126357- 6700 Oct, [facility] [address] 76239- 6435 11 Oct, 2018 Well woman exam with routine gynecological exam Z01.419 ; Screen for STD (sexually transmitted disease) Z11.3 ; Screening breast examination Z12.31 ; Type 2 diabetes mellitus without complication, without long -term current use of insulin E11.9 ; Other obesity due to excess calories E66.09 and Body mass index (BMI) of 32.0-32.9 in adult Z68.32 [place] [address] 15826- 2627 09 Oct, 2017 Ganglion of left wrist M67.432 [place] [address] 49517- 8651 Oct, [place] [address] 30933- 1113 Oct, [facility] [address] 95852 -3440 Oct, Ganglion cyst M67.40 [place] [address] 41087- 7585 Oct, [place] [address] 82155- 7042 Sep, [place] [address] 05686- 6257 Sep, Major depressive disorder, recurrent episode, moderate F33.1 [place] [address] 13140- 7019 Sep, [place] [address] 02282- 3235 Sep, Right renal mass N28.89 [place] [address] 22622- 2461 Sep, [place] [address] 19228- 0067 Sep, [place] [address] [address] 5545 Sep, Right renal mass N28.89 [facility] [address] [address] 7878 Sep, [facility] [address] [address] 4282 Sep, [facility] [id number] [place] [address] 31721- 6291 Sep, [facility] [address] [place] [address] 78285- 2729 Sep, [facility] [id number] [place] [address] 75011- 4753 Sep, [facility] [address] [place] [address] 08215- 3945 Sep, [facility] [address] [place] [address] 34736- 6081 Sep, Pulmonary nodule R91.1 [facility] [address] [place] [address] 35375- 1063 Aug, [facility] [address] [place] [address] 65537- 0491 Aug, Right renal mass N28.89 and Pulmonary nodule R91.1 [facility] [address] [place] [address] 39996- 4225 Aug, Essential hypertension I10 ; Right renal mass N28.89 ; Chronic gastric ulcer, unspecified whether gastric ulcer hemorrhage or perforation present K25.7 ; Spondylosis of cervical region without myelopathy or radiculopathy M47.812 ; 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 and Hospital discharge follow-up Z09 [facility] [address] [address]- 8[address] 14 Aug, 2017 [facility] [address] [place] [address] 79452- 3868 Aug, [facility] [id number] [address]- 2677 Aug, [facility] [address], [place] [address] 4[address] Aug, Pain syndrome, chronic G89.4 ; Lumbago with sciatica, right side M54.41 ; Lumbago with sciatica, left side M54.42 ; Other chronic pain G89.29 ; Cervicalgia M54.2 ; Controlled substance agreement signed Z79.899 and Essential hypertension I10 [facility] [address] [address] Aug, [place] [address] [address]- 1464 Jul, Encounter to establish care Z76.89 ; [...] SOCIAL HISTORY Never Assessed REASON FOR VISIT Establish Care---Quinten, previously seen by Dr. Wright, he is no longer at [facility] so she is transitioning PLAN OF CARE Activity Details Follow Up 3 Months Reason:[facility] VITAL SIGNS Height 68 in 2017-08-12 Weight 218 lbs 2017-08-12 Temperature 97.8 degrees Fahrenheit 2017-08-12 Heart Rate 70 bpm 2017-08-12 Respiratory Rate 20 2017-08-12 BMI 33.14 kg/m2 2017-08-12 Blood pressure systolic 160 mmHg 2017-08-12 Blood pressure diastolic 84 mmHg 2017-08-12 MEDICATIONS Medication Instructions Dosage Frequency Start Date End Date Duration Status Lipitor 10 MG Orally Once a day 1 tablet 24h Active Oxycodone-Acetaminophen 5-325 MG Orally 3 times a day 1 tablet as needed 8h Active Tizanidine HCl 4 MG Orally Three times a day 1 capsule as needed 8h 26 Oct , 2017 25 Nov, 2017 30 days Active Aspirin 81 MG Orally Once a day 1 tablet 24h Active Pioglitazone HCl-Metformin HCl 15-500 MG Orally Once a day 1 tablet with a meal 24h Active Fish Oil 1000 MG Orally twice a day 1 capsule 12h Active Clopidogrel Bisulfate 75 MG Orally Once a day 1 tablet 24h Active Protonix 40 MG Orally Once a day 1 tablet 24h Active Metoprolol Succinate 100 mg by oral route 2 times a day 1 tablet 12h Active Sucralfate 1 GM Orally 4 times a day 1 tablet at bedtime on an empty stomach before meals 6h Active Lisinopril 20 mg Orally twice a day 1 tablet 12h Active Januvia 100 MG Orally Once a day 1 tablet 24h Active RESULTS No Results PROCEDURES No Known [...] polp removal/colonoscopy Hospitalization History heart attack x3 [id number] 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
--- OUTSIDE RECORDS SUMMARY | 2018-05-02 12:52 | XMS REPORT ---
Author Author PRISCILLA BLANCAS Organization [facility] Address [address] [place] [address] Care Team Providers Care Repairer Finished Metal Name Role Phone YONNY PRISCILLA Unavailable PROBLEMS Type Condition ICD9-CM Code UQD36-TU Code Onset Dates Condition Status SNOMED Code Problem Spondylosis of cervical region without myelopathy or radiculopathy M47.812 Active 245200049 Problem Body mass index (BMI) of 32.0-32.9 in adult Z68.32 Active 282442891 Problem Pulmonary nodule R91.1 Active 618441197 Problem Metabolic disorder, unspecified E88.9 Active 513789332 Problem 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3 Active 648043658 Problem Major depressive disorder, recurrent episode, moderate F33.1 Active 688113719 Problem Other obesity due to excess calories E66.09 Active 299231241 Problem GERD without esophagitis K21.9 Active 380534650 Problem Seasonal allergic rhinitis due to pollen J30.1 Active 58522757 Problem Chronic esophagogastric ulcer K25.7 Active 76030338 Problem Type 2 diabetes mellitus without complication, without long-term current use of insulin E11.9 Active 283371199 Problem Left kidney mass N28.89 Active 191826256 Problem Essential hypertension I10 Active 10849017 Problem Pain syndrome, chronic G89.4 Active 691518611 Problem Lumbago with sciatica, left side M54.42 Active 947525061 Problem Right renal mass N28.89 Active 328049025 Problem Lumbago with sciatica, right side M54.41 Active 369065189259568 Problem 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 Active 792630821 ALLERGIES No Information ENCOUNTERS Encounter Location Date Diagnosis [facility] [address] [facility] [id number] [address] Mar, [facility] [id number] [address]- 7068 February, [place] [address] [place] [address] 86046- 0176 February, 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 [facility] [place] [address] [place] [address] 95985 -6695 February, Strain of neck muscle, initial encounter S16.[address] [place] [id number] [place] [address] 74744- 3084 February, Type 2 diabetes mellitus without complication, [...] Seasonal allergic rhinitis due to pollen J30.1 [address] [place] [address] 17120- 6418 February, Essential hypertension I10 ; 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 ; Body mass index (BMI) of 32.0-32.9 in adult Z68.32 and Type 2 diabetes mellitus without complication, without long-term current use of insulin E11.9 [place] [address] [place] [address] 29534- 3752 February, Type 2 diabetes mellitus without complication, without long- term current use of insulin E11.9 [place] [address] [place] [address] 50644- 7900 Jan, Lumbago with sciatica, right side M54.41 [facility] IN [facility] [address] [place] [address] 60139 -5597 Jan, Sore throat J02.9 [place] [id number] [address]- 6416 Dec, [facility] [address] [place] [address] 89875- 3858 Dec, Type 2 diabetes mellitus without complication, without long- term current use of insulin E11.9 [place] [address] [place] [address] 05163- 3953 Dec, [place] [id number] [place] [address] 63444- 5092 Dec, [place] [address] [place] [address] 98540- 9952 Dec, [place] [id number] [place] [address] 12573- 7231 Dec, Type 2 diabetes mellitus without complication, [...] pollen J30.1 and GERD without esophagitis K21.9 [place] [address] [address]- 4082 Dec, [place] [address] [address]- 3169 Nov, [place] [id number] [place] [address] 30898- 6359 Nov, [facility] [address] [address]- 3391 Nov, [place] [address] [place] [address] 45161- 9879 Nov, [facility] [address] [place] [address] 93269- 2043 Oct, [facility] [id number] [place] [address] 67758- 5941 Oct, [place] [id number] [place] [address] 41999- 5381 Oct, [facility] [address] 08222- 7564 Oct, Well woman exam with routine gynecological exam Z01.419 ; Screen for STD (sexually transmitted disease) Z11.3 ; Screening breast examination Z12.31 ; Type 2 diabetes mellitus without complication, without long -term current use of insulin E11.9 ; Other obesity due to excess calories E66.09 and Body mass index (BMI) of 32.0-32.9 in adult Z68.32 [place] [address] [id number] [place] [address] 85075- 0488 Oct, Ganglion of left wrist M67.432 [place] [address] [id number] [place] [address] 83825- 4948 Oct, [place] [id number] [place] [address] 22636- 1155 Oct, [facility] [address] [place] [address] 40884 -4884 Oct, Ganglion cyst M67.40 [facility] [id number] [place] [address] 65681- 4147 Oct, [place] [address] [place] [address] 47605- 4462 Sep, [place] [address] [id number] [place] [address] 60544- 0295 Sep, Major depressive disorder, recurrent episode, moderate F33.1 [place] [id number] [place] [address] 76906- 1254 Sep, [facility] [address] [address]- 2292 Sep, Right renal mass N28.89 [facility] [address] [place] [address] 25496- 8956 Sep, [facility] [id number] [place] [address] 84154- 0800 Sep, [facility] [id number] [place] [address] 99444- 4058 Sep, Right renal mass N28.89 [facility] [id number] [place] [address] 84945- 8446 Sep, [facility] [id number] [place] [address] 99657- 7712 Sep, [facility] [id number] [place] [address] 15532- 5983 Sep, [facility] [address] [address]- 5669 Sep, [facility] [id number] [place] [address] 42295- 2544 Sep, [facility] [address] [address]- 6768 Sep, [facility] [address] [place] [address] 85257- 4908 Sep, Pulmonary nodule R91.1 [facility] [address] [address]- 3067 Aug, [facility] [address] [place] [address] 80785- 5431 Aug, Right renal mass N28.89 and Pulmonary nodule R91.1 [facility] [address] [address]- 9883 Aug, Essential hypertension I10 ; Right renal mass N28.89 ; Chronic gastric ulcer, unspecified whether gastric ulcer hemorrhage or perforation present K25.7 ; Spondylosis of cervical region without myelopathy or radiculopathy M47.812 ; 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 and Hospital discharge follow-up Z09 [place] [address] [place] [address] 97926- 7557 14 Aug, 2017 [place] [address] [place] [id number] [place] [address] 46467- 2916 09 Aug, 2017 [place] [address] [id number] [place] [address] 50081- 5353 Aug, [place] [address] 54904- 3903 Aug, Pain syndrome, chronic G89.4 ; Lumbago with sciatica, right side M54.41 ; Lumbago with sciatica, left side M54.42 ; Other chronic pain G89.29 ; Cervicalgia M54.2 ; Controlled substance agreement signed Z79.899 and Essential hypertension I10 [place] [id number] [place] [address] 56600- 0348 Aug, [place] [id number] [place] [address] 08959- 6702 Jul, Encounter to establish care Z76.89 ; [...] MRI PLAN OF CARE VITAL SIGNS MEDICATIONS Medication Instructions Dosage Frequency Start Date End Date Duration Status Valium 5 mg Orally once 30 minutes prior to scan- may repeat x 1 5mg tablet if needed Aug, 1 days Active RESULTS Name Result Date Reference Range CMP (OUTSIDE LAB) 2017-09-24 PROCEDURES No Known procedures INSTRUCTIONS MEDICATIONS ADMINISTERED [...] polp removal/colonoscopy Hospitalization History heart attack x3 2470-0024 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
--- OUTSIDE RECORDS SUMMARY | 2018-05-02 12:52 | XMS REPORT ---
Author Author PATRICK ROBERT [facility] Address [address] [place] [address] Care Team Providers Care Certified Medicine Aide Name Role Phone PATRICK ROBERT Unavailable PROBLEMS Type Condition ICD9-CM Code [id number] Code Onset Dates Condition Status SNOMED Code Problem Spondylosis of cervical region without myelopathy or radiculopathy M47.812 Active 859108058 Problem Body mass index (BMI) of 32.0-32.9 in adult Z68.32 Active 860591824 Problem Pulmonary nodule R91.1 Active 757588129 Problem Metabolic disorder, unspecified E88.9 Active 168804124 Problem 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3 Active 610550324 Problem Major depressive disorder, recurrent episode, moderate F33.1 Active 088798164 Problem Other obesity due to excess calories E66.09 Active 998038540 Problem GERD without esophagitis K21.9 Active 377433317 Problem Seasonal allergic rhinitis due to pollen J30.1 Active 50225296 Problem Chronic esophagogastric ulcer K25.7 Active 02489335 Problem Type 2 diabetes mellitus without complication, without long-term current use of insulin E11.9 Active 613801625 Problem Left kidney mass N28.89 Active 799783689 Problem Essential hypertension I10 Active 72801372 Problem Pain syndrome, chronic G89.4 Active 235034984 Problem Lumbago with sciatica, left side M54.42 Active 226587268 Problem Right renal mass N28.89 Active 934081297 Problem Lumbago with sciatica, right side M54.41 Active 126427924748723 Problem 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 Active 249270705 ALLERGIES Substance Reaction Event Type Date Status Hydrocodone-Acetaminophen anaphylaxis Drug Allergy Oct, Active Feldene cintron's palsy Drug Allergy Oct, Active Doxycycline Monohydrate anaphylaxis Drug Allergy Oct, Active ENCOUNTERS Encounter Location Date Diagnosis [facility] [id number] [place] [address] 74530- 9021 Mar, [place] [id number] [place] [address] 04681- 8284 February, [place] [id number] [place] [address] 19220- 8948 February, 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 [facility] [address] [address] February, Strain of neck muscle, initial encounter S16.1XXA [address] [address] February, Type 2 diabetes mellitus without complication, [...] Seasonal allergic rhinitis due to pollen J30.1 [place] [id number] [place] [address] 29967- 0897 February, Essential hypertension I10 ; 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 ; Body mass index (BMI) of 32.0-32.9 in adult Z68.32 and Type 2 diabetes mellitus without complication, without long-term current use of insulin E11.9 [place] [id number] [place] [address] 45509- 9157 February, Type 2 diabetes mellitus without complication, without long- term current use of insulin E11.9 [place] [id number] [place] [address] 55614- 2860 Jan, Lumbago with sciatica, right side M54.41 [facility] [address] [address] Jan, Sore throat J02.9 [facility] [address] [address] Dec, [facility] [address] [address] 19 Dec, 2017 Type 2 diabetes mellitus without complication, without long- term current use of insulin E11.9 [facility] [address] [address] 14 Dec, 2017 [facility] [id number] [place] [address] 48270- 0146 14 Dec, 2017 [facility] [id number] [place] [address] 04613- 4303 Dec, [place] [id number] [place] [address] 71552- 9890 Dec, Type 2 diabetes mellitus without complication, [...] without esophagitis K21.9 [facility] [address] [address] Dec, [facility] [address] [address] Nov, [facility] [address] [address] Nov, [facility] [id number] [place] [address] 39615- 9817 Nov, [place] [id number] [place] [address] 21592- 0523 Nov, [place] [id number] [place] [address] 75981- 7323 Oct, [place] [id number] [place] [address] 36259- 0101 Oct, [place] [id number] [place] [address] 25649- 2475 Oct, [place] [id number] [place] [address] 78806- 3683 Oct, Well woman exam with routine gynecological exam Z01.419 ; Screen for STD (sexually transmitted disease) Z11.3 ; Screening breast examination Z12.31 ; Type 2 diabetes mellitus without complication, without long -term current use of insulin E11.9 ; Other obesity due to excess calories E66.09 and Body mass index (BMI) of 32.0-32.9 in adult Z68.32 [place] [id number] [place] [address] 19394- 8772 Oct, Ganglion of left wrist M67.432 [place] [id number] [place] [address] 07371- 0700 Oct, [place] [id number] [place] [address] 63405- 9804 Oct, [facility] [id number] [place] [address] 92266 [address]9375 Oct, Ganglion cyst M67.40 [place] [id number] [place] [address] 50149- 6937 Oct, [place] [id number] [place] [address] 55829- 8535 Sep, [place] [id number] [place] [address] 62811- 4857 Sep, Major depressive disorder, recurrent episode, moderate F33.1 [facility] [id number] [place] [address] 02627- 4438 Sep, [facility] [id number] [place] [address] 41748- 6310 Sep, Right renal mass N28.89 [facility] [id number] [place] [address] 03519- 7613 Sep, [facility] [id number] [place] [address] 43549- 7316 Sep, [facility] [id number] [place] [address] 97792- 8572 Sep, Right renal mass N28.89 [facility] [id number] [place] [address] 79099- 2801 Sep, [facility] [id number] [place] [address] 27265- 1486 Sep, [facility] [id number] [place] [address] 39954- 1822 Sep, [facility] [id number] [place] [address] 64478- 9273 Sep, [facility] [id number] [place] [address] 68289- 6554 Sep, [facility] [id number] [place] [address] 77705- 4146 Sep, [facility] [address] [place] [address] 57260- 7593 Sep, Pulmonary nodule R91.1 [facility] [id number] [place] [address], [place] [address] 58[address] Aug, [facility] [address] [address] 8[address] Aug, Right renal mass N28.89 and Pulmonary nodule R91.1 [place] [id number] [place] [address] 22151- 6800 16 Aug, 2017 Essential hypertension I10 ; Right renal mass N28.89 ; Chronic gastric ulcer, unspecified whether gastric ulcer hemorrhage or perforation present K25.7 ; Spondylosis of cervical region without myelopathy or radiculopathy M47.812 ; 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 and Hospital discharge follow-up Z09 [place] [id number] [place] [address] 66658- 8993 14 Aug, 2017 [place] [address] [address]- [address] 09 Aug, 2017 [place] [id number] [place] [address] 13772- 2570 Aug, [place] [id number] [place] [address] 22520- 8447 Aug, Pain syndrome, chronic G89.4 ; Lumbago with sciatica, right side M54.41 ; Lumbago with sciatica, left side M54.42 ; Other chronic pain G89.29 ; Cervicalgia M54.2 ; Controlled substance agreement signed Z79.899 and Essential hypertension I10 [place] [id number] [place] [address] 82815- 1648 02 Aug, 2017 [place] [id number] [place] [address] 64578- 8206 Jul, Encounter to establish care Z76.89 ; [...] SOCIAL HISTORY Never Assessed REASON FOR VISIT left hand pain Pt states woke up this morning with a knot on left wrist and it is very painful, also c/o pain, numbness and tingliing in hand BRANDI Aburto PLAN OF CARE Activity Details Follow Up prn Reason: VITAL SIGNS Height 68 in 2017-10-19 Weight 213.4 lbs 2017-10-19 Temperature 97.3 degrees Fahrenheit 2017-10-19 Heart Rate 68 bpm 2017-10-19 Respiratory Rate 16 2017-10-19 BMI 32.44 kg/m2 2017-10-19 Blood pressure systolic 140 mmHg 2017-10-19 Blood pressure diastolic 80 mmHg 2017-10-19 MEDICATIONS Medication Instructions Dosage Frequency Start Date End Date Duration Status Oxycodone-Acetaminophen 7.5-325 MG Orally every 6 hrs 1 tablet as needed 6h 07 Sep, 2017 Oct, 28 days Active Pioglitazone HCl-Metformin HCl 15-500 MG Orally Once a day 1 tablet with a meal 24h 30 Active Valium 5 mg Orally once 30 minutes prior to scan- february repeat x 1 5mg tablet if needed Aug, 1 days Active Lisinopril 20 mg Orally twice a day 1 tablet 12h 30 Active Metoprolol Tartrate 100 MG Orally Twice a day 1 tablet with food 12h 30 Active Clopidogrel Bisulfate 75 MG Orally Once a day 1 tablet 24h Active Sucralfate 1 GM Orally 4 times a day 1 tablet at bedtime on an empty stomach before meals 6h 30 days Active Lipitor 10 mg Orally Once a day 1 tablet 24h 30 Active Januvia 100 mg Orally Once a day 1 tablet 24h 30 Active Sertraline HCl 25 MG Orally Once a day 1 tablet 24h 18 Sep, 2017 30 day (s) Active Aspirin 81 MG Orally Once a day 1 tablet 24h Active Tizanidine HCl 4 MG Orally Three times a day 1 capsule as needed 8h 30 Active Dexilant 60 mg Orally Once a day 1 capsule 24h Aug, 90 days Active Fish Oil 1000 MG Orally twice a day 1 capsule 12h Active RESULTS No Results PROCEDURES No Known [...] polp removal/colonoscopy Hospitalization History heart attack x3 [id number] 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
--- OUTSIDE RECORDS SUMMARY | 2018-05-02 12:53 | XMS REPORT ---
Author Author PRISCILLA BLANCAS Organization [facility] Address [address] [place] [address] Care Team Providers Care School Examiner Name Role Phone YONNY PRISCILLA Unavailable PROBLEMS Type Condition ICD9-CM Code YVF74-[id number] Code Onset Dates Condition Status SNOMED Code Problem Spondylosis of cervical region without myelopathy or radiculopathy M47.812 Active 658810545 Problem Body mass index (BMI) of 32.0-32.9 in adult Z68.32 Active 313709294 Problem Pulmonary nodule R91.1 Active 666688643 Problem Metabolic disorder, unspecified E88.9 Active 257449642 Problem 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3 Active 433532307 Problem Major depressive disorder, recurrent episode, moderate F33.1 Active 882857329 Problem Other obesity due to excess calories E66.09 Active 170340314 Problem GERD without esophagitis K21.9 Active 622392500 Problem Seasonal allergic rhinitis due to pollen J30.1 Active 03359223 Problem Chronic esophagogastric ulcer K25.7 Active 93793243 Problem Type 2 diabetes mellitus without complication, without long-term current use of insulin E11.9 Active 298217690 Problem Left kidney mass N28.89 Active 668330130 Problem Essential hypertension I10 Active 10052347 Problem Pain syndrome, chronic G89.4 Active 473774132 Problem Lumbago with sciatica, left side M54.42 Active 236267898 Problem Right renal mass N28.89 Active 893129648 Problem Lumbago with sciatica, right side M54.41 Active 604836885430295 Problem 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 Active 521475872 ALLERGIES No Information ENCOUNTERS Encounter Location Date Diagnosis [facility] [address] [facility] [id number] [address] Mar, [facility] [id number], [place] [address] February, [place] [id number] [place] [address] 19388- 3302 February, 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 [facility] [place] [id number] [place] [address] 47392 [address]9511 February, Strain of neck muscle, initial encounter S16.1XXA [place] [id number] [place] [address] 33853- 1550 February, Type 2 diabetes mellitus without complication, [...] Seasonal allergic rhinitis due to pollen J30.1 [address] [place] [address] 56901- 4333 February, Essential hypertension I10 ; 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 ; Body mass index (BMI) of 32.0-32.9 in adult Z68.32 and Type 2 diabetes mellitus without complication, without long-term current use of insulin E11.9 [place] [address] [place] [address] 66723- 6866 February, Type 2 diabetes mellitus without complication, without long- term current use of insulin E11.9 [place] [address] [place] [address] 04355- 7141 Jan, Lumbago with sciatica, right side M54.41 [facility] [address] [place] [address] 87292 -5113 Jan, Sore throat J02.9 [place] [id number] [address] 8378 Dec, [facility] [address] [place] [address] 27831- 6414 Dec, Type 2 diabetes mellitus without complication, without long- term current use of insulin E11.9 [place] [address] [place] [address] 00875- 5689 Dec, [place] [id number] [place] [address] 98042- 1475 Dec, [place] [address] [place] [address] 26052- 8488 Dec, [place] [id number] [place] [address] 17615- 3664 Dec, Type 2 diabetes mellitus without complication, [...] pollen J30.1 and GERD without esophagitis K21.9 [place] [address], [place] [address]- 3424 Dec, [place] [address], [place] [address]- 9355 Nov, [place] [id number] [place] [address] 78456- 8273 Nov, [facility] [address], [place] [address]- 0488 Nov, [place] [id number] [place] [address] 11078- 8456 Nov, [facility] [id number] [place] [address] 97664- 5547 Oct, [facility] [id number] [place] [address] 21661- 9399 Oct, [place] [id number] [place] [address] 75566- 0001 Oct, [facility] [address] 64651- 8130 Oct, Well woman exam with routine gynecological exam Z01.419 ; Screen for STD (sexually transmitted disease) Z11.3 ; Screening breast examination Z12.31 ; Type 2 diabetes mellitus without complication, without long -term current use of insulin E11.9 ; Other obesity due to excess calories E66.09 and Body mass index (BMI) of 32.0-32.9 in adult Z68.32 [place] [id number] [place] [address] 43523- 7258 Oct, Ganglion of left wrist M67.432 [place] [id number] [place] [address] 76781- 9341 Oct, [place] [id number] [place] [address] 96109- 0628 Oct, [facility] [address] [place] [address] 74067 -0621 Oct, Ganglion cyst M67.40 [facility] [id number] [place] [address] 57831- 2204 Oct, [place] [address] [place] [address] 70949- 0496 Sep, [place] [id number] [place] [address] 17917- 9976 Sep, Major depressive disorder, recurrent episode, moderate F33.1 [place] [id number] [place] [address] 68805- 6660 Sep, [facility] [address], [place] [address]- 7627 Sep, Right renal mass N28.89 [facility] [address] [place] [address] 61427- 4596 Sep, [facility] [id number] [place] [address] 21335- 5483 Sep, [facility] [id number] [place] [address] 45307- 3933 Sep, Right renal mass N28.89 [facility] [id number] [place] [address] 67317- 9748 Sep, [facility] [id number] [place] [address] 12872- 1185 Sep, [facility] [id number] [place] [address] 59339- 8562 Sep, [facility] [address], [place] [address]- 2461 Sep, [facility] [id number] [place] [address] 20380- 2936 Sep, [facility] [address], [place] [address]- 1112 Sep, [facility] [address] [place] [address] 55593- 1632 Sep, Pulmonary nodule R91.1 [facility] [address], [place] [address]- 4943 Aug, [facility] [id number] [place] [address] 54398- 3692 Aug, Right renal mass N28.89 and Pulmonary nodule R91.1 [facility] [address], [place] [address]- 1104 Aug, Essential hypertension I10 ; Right renal mass N28.89 ; Chronic gastric ulcer, unspecified whether gastric ulcer hemorrhage or perforation present K25.7 ; Spondylosis of cervical region without myelopathy or radiculopathy M47.812 ; 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 and Hospital discharge follow-up Z09 [place] [address] [place] [address] 25838- 9676 14 Aug, 2017 [place] [id number] [place] [address] 41231- 4518 09 Aug, 2017 [place] [id number] [place] [address] 81025- 6011 Aug, [place] [id number] [place] [address] 05722- 4940 Aug, Pain syndrome, chronic G89.4 ; Lumbago with sciatica, right side M54.41 ; Lumbago with sciatica, left side M54.42 ; Other chronic pain G89.29 ; Cervicalgia M54.2 ; Controlled substance agreement signed Z79.899 and Essential hypertension I10 [place] [id number] [place] [address] 60721- 8277 02 Aug, 2017 [place] [id number] [place] [address] 01070- 2747 26 Jul, 2017 Encounter to establish care [...] Result Date Reference Range CT Scan : Chest w/ Contrast 2017-09-24 PROCEDURES No Known procedures INSTRUCTIONS MEDICATIONS [...] polp removal/colonoscopy Hospitalization History heart attack x3 [id number] 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
--- OUTSIDE RECORDS SUMMARY | 2018-05-02 12:53 | XMS REPORT ---
Author Author PRISCILLA BLANCAS Organization [facility] Address [address] [place] [address] Care Team Providers Care Regional Trainer Name Role Phone YONNY PRISCILLA Unavailable PROBLEMS Type Condition ICD9-CM Code YBU31-OY Code Onset Dates Condition Status SNOMED Code Problem Spondylosis of cervical region without myelopathy or radiculopathy M47.812 Active 474659579 Problem Body mass index (BMI) of 32.0-32.9 in adult Z68.32 Active 178820882 Problem Pulmonary nodule R91.1 Active 091324325 Problem Metabolic disorder, unspecified E88.9 Active 045935980 Problem 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3 Active 084995722 Problem Major depressive disorder, recurrent episode, moderate F33.1 Active 025128951 Problem Other obesity due to excess calories E66.09 Active 606928731 Problem GERD without esophagitis K21.9 Active 011640464 Problem Seasonal allergic rhinitis due to pollen J30.1 Active 97893276 Problem Chronic esophagogastric ulcer K25.7 Active 64714735 Problem Type 2 diabetes mellitus without complication, without long-term current use of insulin E11.9 Active 188416346 Problem Left kidney mass N28.89 Active 311534194 Problem Essential hypertension I10 Active 78897804 Problem Pain syndrome, chronic G89.4 Active 840204562 Problem Lumbago with sciatica, left side M54.42 Active 867266521 Problem Right renal mass N28.89 Active 188549314 Problem Lumbago with sciatica, right side M54.41 Active 948988703724598 Problem 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 Active 852791390 ALLERGIES No Information ENCOUNTERS Encounter Location Date Diagnosis [facility] [address] [facility] [id number] [address] Mar, [facility] [address] [id number] [address] February, [place] [id number] [place] [address]841[address] February, 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 [facility] [place] [address] [id number] [place] [address]400 [address] February, Strain of neck muscle, initial encounter [address] [place] [id number] [place] [address] 25529- 6970 February, Type 2 diabetes mellitus without complication, [...] allergic rhinitis due to pollen J30.1 [id number] [place] [address] 97759- 5752 February, Essential hypertension I10 ; 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 ; Body mass index (BMI) of 32.0-32.9 in adult Z68.32 and Type 2 diabetes mellitus without complication, without long-term current use of insulin E11.9 [place] [id number] [place] [address] 00747- 4736 February, Type 2 diabetes mellitus without complication, without long- term current use of insulin E11.9 [place] [id number] [place] [address] 14699- 8736 Jan, Lumbago with sciatica, right side M54.41 [facility] [id number] [place] [address]492 -9276 Jan, Sore throat J02.9 [place] [address] [id number] [address] Dec, [facility] [id number] [place] [address] 65213- 3492 Dec, Type 2 diabetes mellitus without complication, without long- term current use of insulin E11.9 [place] [address] [place] [address] 46420- 8729 Dec, [place] [address] [place] [id number] [place] [address] 26858- 7007 Dec, [place] [id number] [place] [address] 83542- 7388 Dec, [place] [address] [place] [id number] [place] [address] 99914- 3460 Dec, Type 2 diabetes mellitus without complication, [...] pollen J30.1 and GERD without esophagitis K21.9 [place] [address] [address] Dec, [place] [address] [address] Nov, [place] [address] [place] [id number] [place] [address] 03273- 9489 Nov, [facility] [address] [address] Nov, [place] [id number] [place] [address] 45898- 8982 Nov, [facility] [id number] [place] [address] 77657- 4506 Oct, [facility] [address] [place] [id number] [place] [address] 00272- 5711 Oct, [place] [address] [place] [id number] [place] [address] 44775- 8032 Oct, [facility] [address] [address] Oct, Well woman exam with routine gynecological exam Z01.419 ; Screen for STD (sexually transmitted disease) Z11.3 ; Screening breast examination Z12.31 ; Type 2 diabetes mellitus without complication, without long -term current use of insulin E11.9 ; Other obesity due to excess calories E66.09 and Body mass index (BMI) of 32.0-32.9 in adult Z68.32 [place] [address] [place] [id number] [place] [address] 23404- 9509 Oct, Ganglion of left wrist M67.432 [place] [address] [place] [id number] [place] [address] 80852- 5910 Oct, [place] [address] [place] [id number] [place] [address] 52156- 4689 Oct, [facility] [id number] [place] [address] 73978 -7147 Oct, Ganglion cyst M67.40 [facility] [address] [place] [id number] [place] [address] 46700- 0525 Oct, [place] [id number] [place] [address] 38630- 5213 Sep, [place] [address] [place] [id number] [place] [address] 97977- 8054 Sep, Major depressive disorder, recurrent episode, moderate F33.1 [place] [address] [place] [id number] [place] [address] 55740- 7070 Sep, [facility] [address] [address] Sep, Right renal mass N28.89 [facility] [address] [place] [address] 30844- 0056 Sep, [facility] [address] [place] [address] [id number] [place] [address] 62427- 9634 Sep, [facility] [address] [place] [address] [id number] [place] [address] 34573- 6202 Sep, Right renal mass N28.89 [facility] [address] [place] [address] [id number] [place] [address] 40939- 7595 Sep, [facility] [address] [place] [address] [id number] [place] [address] 65934- 5327 Sep, [facility] [address] [place] [address] [id number] [place] [address] 16702- 0654 Sep, [facility] [address] [address] Sep, [facility] [address] [place] [id number] [place] [address] 68137- 6235 Sep, [facility] [address] [address] Sep, [facility] [id number] [place] [address] 11127- 5704 Sep, Pulmonary nodule R91.1 [facility] [address] [address] Aug, [facility] [id number] [place] [address] 14693- 7469 Aug, Right renal mass N28.89 and Pulmonary nodule R91.1 [facility] [address] [place] [address] Aug, Essential hypertension I10 ; Right renal mass N28.89 ; Chronic gastric ulcer, unspecified whether gastric ulcer hemorrhage or perforation present K25.7 ; Spondylosis of cervical region without myelopathy or radiculopathy M47.812 ; 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 and Hospital discharge follow-up Z09 [place] [id number] [place] [address] 84406- 9992 14 Aug, 2017 [place] [address] [place] [id number] [place] [address] 12239- 1855 09 Aug, 2017 [place] [address] [place] [id number] [place] [address] 32911- 5059 Aug, [place] [address] [place] [id number] [place] [address] 91278- 8960 Aug, Pain syndrome, chronic G89.4 ; Lumbago with sciatica, right side M54.41 ; Lumbago with sciatica, left side M54.42 ; Other chronic pain G89.29 ; Cervicalgia M54.2 ; Controlled substance agreement signed Z79.899 and Essential hypertension I10 [place] [address] [place] [id number] [place] [address] 50795- 9849 02 Aug, 2017 [place] [address] [place] [id number] [place] [address] 16621- 7500 26 Jul, 2017 Encounter to establish care [...] SOCIAL HISTORY Never Assessed REASON FOR VISIT MRIs X3 PLAN OF CARE VITAL SIGNS MEDICATIONS Unknown [...] polp removal/colonoscopy Hospitalization History heart attack x3 [id number] 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
--- OUTSIDE RECORDS SUMMARY | 2018-05-02 12:54 | XMS REPORT | Continuity of Care Document ---
Demographics x Preferred Language Unknown Marital Status Unknown Mormon Affiliation Unknown Race Unknown Ethnic Group Unknown Author Author [facility] Organization [facility] Address Unknown Phone Unavailable Allergies Active Description Code Type Severity Reaction Onset Reported/Identified Relationship to Patient Clinical Status Yes doxycycline 2748 Drug Allergy N /A N/A Yes Feldene 68890 Drug Allergy N/A N/A Yes hydrocodone 1554 Drug Allergy N /A N/A Yes DOXYCYCLINE HYCLATE DOXYCYCLINE HYCLATE SEVERE Yes FELDENE FELDENE SEVERE Yes HYDROCODONE-ACETAMINOPHEN HYDROCODONE-ACETAMIN SEVERE Yes DOXYCYCLINE HYCLATE SEVERE DERMATOLOGICAL - HIV Yes FELDENE SEVERE OTHER Yes HYDROCODONE-ACETAMINOPHEN SEVERE DERMATOLOGICAL - HIV Yes ROBAXIN MODERATE OTHER Yes doxycycline [id number] Drug Allergy Unknown N/A 08/16/2017 Yes hydrocodone [id number] Drug Allergy Unknown N/A 08/16/2017 Yes piroxicam [id number] Drug Allergy Unknown N/A 08/16/2017 Yes ketorolac [id number] Drug Allergy Moderate N/A 08/27/2017 Medications Medication Packaging Start Date Stop Date Route Dosage Sig PROMETHAZINE VIAL INJ 25 MG/CC (PHENERGAN VIAL) MG 06/29/2017 06/29/2017 PRN ONCE MEPERIDINE SYRINGE INJ 50 MG/CC (DEMEROL SYRINGE) MG 06/29/2017 06/29/2017 [id number]&1827 Problems Date Dx Coded Attending Type Code Diagnosis Diagnosed By 06/17/2010 Ot 250.00 06/17/2010 Ot 278.00 06/17/2010 Ot 402.91 06/17/2010 Ot 412 06/17/2010 Ot 413.9 06/17/2010 Ot 414.01 06/17/2010 Ot 428.30 06/17/2010 Ot 530.81 06/17/2010 Ot 715.90 06/17/2010 Ot V58.63 06/17/2010 Ot V58.66 06/17/2010 Ot V58.69 06/17/2010 Ot V85.33 03/03/2011 Ot 250.00 03/03/2011 Ot 621.0 03/03/2011 Ot V58.69 05/22/2015 WESTON WRIGHT MD Ot 789.00 05/22/2015 WESTON WRIGHT MD Ot 793.11 05/27/2015 Ot 272.4 05/27/2015 [...] 272.4 05/27/2015 Ot V58.69 05/27/2015 LINDEN MOISE FAC, [facility]IA [facility] Ot 272.4 05/27/2015 WESTON WRIGHT MD Ot 789.00 05/27/2015 WESTON WRIGHT MD Ot 793.11 05/28/2015 WESTON WRIGHT MD Ot 593.9 06/05/2015 WESTON WRIGHT MD Ot 789.00 06/05/2015 WESTON WRIGHT MD Ot 793.11 06/13/2015 WESTON WRIGHT MD Ot 593.9 02/05/2017 Weston Wright 719.41 PAIN IN JOINT INVOLVING SHOULDER REGION 02/05/2017 Weston Wright 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.4 BRACHIAL NEURITIS OR RADICULITIS NOS 02/05/2017 Weston Wright M25.512 PAIN IN LEFT SHOULDER 02/05/2017 Weston Wright M50.10 CERVICAL DISC DISORDER W RADICULOPATHY, UNSP CERVICAL REGION 02/05/2017 Jhon Altamirano 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.4 BRACHIAL NEURITIS OR RADICULITIS NOS 02/05/2017 Jhon Altamirano M50.10 CERVICAL DISC DISORDER W RADICULOPATHY, UNSP CERVICAL REGION 04/27/2017 Ot 250.00 DIAB LUCIA WO COMPL, TYPE II OR UNSPEC TY 04/27/2017 Ot 272.4 HYPERLIPIDEMIA NEC/NOS 04/27/2017 Ot V58.69 OTH MED,LT, CURRENT USE 04/27/2017 LINDEN MOISE FACTabby, ALI FACP CCDS Ot 272.4 HYPERLIPIDEMIA NEC/NOS 04/27/2017 WESTON WRIGHT MD Ot 789.00 ABDOMINAL PAIN, UNSPECIFIED SITE 04/27/2017 WESTON WRIGHT MD Ot 793.11 SOLITARY PULMONARY NODULE 04/27/2017 WESTON WRIGHT MD Ot 593.9 RENAL URETERAL DIS NOS 04/29/2017 Ot 250.00 DIAB LUCIA WO COMPL, TYPE II OR UNSPEC TY 04/29/2017 Ot 272.4 HYPERLIPIDEMIA NEC/NOS 04/29/2017 Ot V58.69 OTH MED,LT, CURRENT USE 04/29/2017 LINDEN MOISE FACC, ALI FACP CCDS Ot 272.4 HYPERLIPIDEMIA NEC/NOS 04/29/2017 WESTON WRIGHT MD Ot 789.00 ABDOMINAL PAIN, UNSPECIFIED SITE 04/29/2017 WESTON WRIGHT MD Ot 793.11 SOLITARY PULMONARY NODULE 04/29/2017 WESTON WRIGHT MD Ot 593.9 RENAL URETERAL DIS NOS 05/03/2017 Ot 250.00 DIAB LUCIA WO COMPL, TYPE II OR UNSPEC TY 05/03/2017 Ot 272.4 HYPERLIPIDEMIA NEC/NOS 05/03/2017 Ot V58.69 OTH MED,LT, CURRENT USE 05/03/2017 LINDEN MOISE FACC, ALI FACP CCDS Ot 272.4 HYPERLIPIDEMIA NEC/NOS 05/03/2017 WESTON WRIGHT MD Ot 789.00 ABDOMINAL PAIN, UNSPECIFIED SITE 05/03/2017 WESTON WRIGHT MD Ot 793.11 SOLITARY PULMONARY NODULE 05/03/2017 WESTON WRIGHT MD Ot 593.9 RENAL URETERAL DIS NOS 05/03/2017 FOREIGN HORAN TRIMMING CUTTER MACHINE Ot E11.9 TYPE 2 DIABETES MELLITUS WITHOUT COMPLIC 05/03/2017 BAIMA, FOREIGN L TRIMMING CUTTER MACHINE Ot E78.4 OTHER HYPERLIPIDEMIA 05/03/2017 BAIFOREIGN PAZ L TRIMMING CUTTER MACHINE Ot I10 ESSENTIAL (PRIMARY) HYPERTENSION 05/03/2017 FOREIGN HORAN L TRIMMING CUTTER MACHINE Ot 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 05/03/2017 FOREIGN HORAN L TRIMMING CUTTER MACHINE Ot I65.23 OCCLUSION AND STENOSIS OF BILATERAL [place]USS 05/03/2017 BAIFOREIGN PAZ L TRIMMING CUTTER MACHINE Ot R07.89 OTHER CHEST PAIN 05/13/2017 Ot 250.00 DIAB LUCIA WO COMPL, TYPE II OR UNSPEC TY 05/13/2017 Ot 272.4 HYPERLIPIDEMIA NEC/NOS 05/13/2017 Ot V58.69 OTH MED,LT, CURRENT USE 05/13/2017 LINDEN MOISE FACC, DASIA CHACON CCDS Ot 272.4 HYPERLIPIDEMIA NEC/NOS 05/13/2017 ORTIZ MOISE, WESTON Nuno Ot 789.00 ABDOMINAL PAIN, UNSPECIFIED SITE 05/13/2017 ORTIZ MOISE, WESTON Nuno Ot 793.11 SOLITARY PULMONARY NODULE 05/13/2017 WESTON WRIGHT MD Ot 593.9 RENAL URETERAL DIS NOS 05/13/2017 MARGUERITE WAITE MD Ot Z01.818 ENCOUNTER FOR OTHER PREPROCEDURAL EXAMIN 05/13/2017 MARGUERITE WAITE MD Ot Z12.11 ENCOUNTER FOR SCREENING FOR MALIGNANT NE 05/13/2017 MARGUERITE WAITE MD Ot Z86.010 PERSONAL HISTORY OF COLONIC POLYPS 05/13/2017 MARGUERITE WAITE MD Ot Z87.11 PERSONAL HISTORY OF PEPTIC ULCER DISEASE 05/13/2017 AUNG FOREIGN Prince TRIMMING CUTTER MACHINE Ot E11.9 TYPE 2 DIABETES MELLITUS WITHOUT COMPLIC 05/13/2017 MOHINIFOREIGN PAZ L TRIMMING CUTTER MACHINE Ot E78.4 OTHER HYPERLIPIDEMIA 05/13/2017 FOREIGN HORAN L TRIMMING CUTTER MACHINE Ot I10 ESSENTIAL (PRIMARY) HYPERTENSION 05/13/2017 FOREIGN HORAN L TRIMMING CUTTER MACHINE Ot 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 05/13/2017 FOREIGN HORAN L TRIMMING CUTTER MACHINE Ot I65.23 OCCLUSION AND STENOSIS OF BILATERAL [place] 05/13/2017 FOREIGN HORAN L TRIMMING CUTTER MACHINE Ot R07.89 OTHER CHEST PAIN 05/18/2017 LINDEN MOISE FACC, DASIA CHACON CCDS Ot E11.9 TYPE 2 DIABETES MELLITUS WITHOUT COMPLIC 05/18/2017 ILNDEN MOISE FACC, ALI FACP CCDS Ot E66.9 OBESITY, UNSPECIFIED 05/18/2017 LINDEN MOISE FACC, DASIA FACP CCDS Ot I11.9 HYPERTENSIVE HEART DISEASE WITHOUT HEART 05/18/2017 LINDEN MOISE FACC, ALI FACP CCDS Ot 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 05/18/2017 LINDEN MOISE FACC, ALI FACP CCDS Ot K21.9 GASTRO-ESOPHAGEAL REFLUX DISEASE WITHOUT 05/18/2017 LINDEN MOISE FACC, DASIA FACP CCDS Ot R00.0 TACHYCARDIA, UNSPECIFIED 05/18/2017 LINDEN MOISE FACC, ALI FACP CCDS Ot R07.89 OTHER CHEST PAIN 05/18/2017 DASIA CHEATHAM MD, FACC FACP CCDS Ot R94.39 ABNORMAL RESULT OF OTHER CARDIOVASCULAR 05/18/2017 LINDEN MOISE FACC ALI FACP CCDS Ot Z68.33 BODY MASS INDEX (BMI) 33.0-33.9, ADULT 05/18/2017 DASIA CHEATHAM MD, FACC FACP CCDS Ot Z79.84 GROUP HOME (CURRENT) USE OF ORAL HYPOGLYC 05/18/2017 DASIA CHEATHAM MD, FACC FACP CCDS Ot Z79.899 OTHER STITCHER HAND (CURRENT) DRUG THERAPY 05/25/2017 FOREIGN HORAN L TRIMMING CUTTER MACHINE Ot E11.9 TYPE 2 DIABETES MELLITUS WITHOUT COMPLIC 05/25/2017 FOREIGN HORAN L TRIMMING CUTTER MACHINE Ot E78.4 OTHER HYPERLIPIDEMIA 05/25/2017 MOHINIMA FOREIGN L TRIMMING CUTTER MACHINE Ot I10 ESSENTIAL (PRIMARY) HYPERTENSION 05/25/2017 FOREIGN HORAN L TRIMMING CUTTER MACHINE Ot 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 05/25/2017 FOREIGN HORAN L TRIMMING CUTTER MACHINE Ot I65.23 OCCLUSION AND STENOSIS OF BILATERAL [place] 05/25/2017 MOHINIMAESTHERFOREIGN L TRIMMING CUTTER MACHINE Ot R07.89 OTHER CHEST PAIN 05/25/2017 FOREIGN HORAN L TRIMMING CUTTER MACHINE Ot E11.9 TYPE 2 DIABETES MELLITUS WITHOUT COMPLIC 05/28/2017 LINDEN MOISE FACC ALI FACP CCDS Ot E11.9 TYPE 2 DIABETES MELLITUS WITHOUT COMPLIC 05/28/2017 LINDEN MOISE FACC, ALI FACP CCDS Ot E66.9 OBESITY, UNSPECIFIED 05/28/2017 LINDEN MOISE FACC, DASIA FACP CCDS Ot I11.9 HYPERTENSIVE HEART DISEASE WITHOUT HEART 05/28/2017 LINDEN LUO, ALI FACP CCDS Ot 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 05/28/2017 LINDEN MOISE FACC, ALI FACP CCDS Ot K21.9 GASTRO-ESOPHAGEAL REFLUX DISEASE WITHOUT 05/28/2017 LINDEN MOISE FACC, ALI FACP CCDS Ot R00.0 TACHYCARDIA, UNSPECIFIED 05/28/2017 LINDEN MOISE FACC, ALI FACP CCDS Ot R07.89 OTHER CHEST PAIN 05/28/2017 LINDEN MOISE FACC, ALI FACP CCDS Ot R94.39 ABNORMAL RESULT OF OTHER CARDIOVASCULAR 05/28/2017 LINDEN MOISE FACC, ALI FACP CCDS Ot Z68.33 BODY MASS INDEX (BMI) 33.0-33.9, ADULT 05/28/2017 LINDEN MOISE FACC, ALI FACP CCDS Ot Z79.84 GROUP HOME (CURRENT) USE OF ORAL HYPOGLYC 05/28/2017 LINDEN MOISE FACC, DASIA FACP CCDS Ot Z79.899 OTHER STITCHER HAND (CURRENT) DRUG THERAPY 06/29/2017 Jhon Altamirano 924.20 CONTUSION OF FOOT 06/29/2017 Jhon Altamirano S90.31XA CONTUSION OF RIGHT FOOT, INITIAL ENCOUNTER 07/10/2017 ADA KONG 719.06 EFFUSION OF LOWER LEG JOINT 07/10/2017 ADA KONG 959.7 OTHER AND UNSPECIFIED INJURY TO KNEE, LEG, ANKLE, AND FOOT 07/10/2017 ADA KONG M25.461 EFFUSION, RIGHT KNEE 07/10/2017 ADA KONG S89.91XA UNSPECIFIED INJURY OF RIGHT LOWER LEG, INITIAL ENCOUNTER 08/16/2017 MARGUERITE WAITE MD, Ot Z01.818 ENCOUNTER FOR OTHER PREPROCEDURAL EXAMIN 08/16/2017 MARGUERITE WAITE MD, Ot Z86.010 PERSONAL HISTORY OF COLONIC POLYPS 08/16/2017 MARGUERITE WAITE MD, Ot Z87.11 PERSONAL HISTORY OF PEPTIC ULCER DISEASE 08/18/2017 MARGUERITE WAITE MD, Ot E11.9 TYPE 2 DIABETES MELLITUS WITHOUT COMPLIC 08/18/2017 MARGUERITE WAITE MD, Ot I10 ESSENTIAL (PRIMARY) HYPERTENSION 08/18/2017 MARGUERITE [...] Ot Z87.442 PERSONAL HISTORY OF URINARY CALCULI 08/25/2017 JAVIER BUSTAMANTE 715.16 OSTEOARTHROSIS, LOCALIZED, PRIMARY, INVOLVING LOWER LEG 08/25/2017 JAVIER BUSTAMANTE M17.11 UNILATERAL PRIMARY OSTEOARTHRITIS, RIGHT KNEE 08/27/2017 Ot 250.00 DIAB LUCIA WO COMPL, TYPE II OR UNSPEC TY 08/27/2017 Ot 272.4 HYPERLIPIDEMIA NEC/NOS 08/27/2017 Ot V58.69 OTH MED,LT, CURRENT USE 08/27/2017 LINDEN MOISE FACC, ALI FACP CCDS Ot 272.4 HYPERLIPIDEMIA NEC/NOS 08/27/2017 WESTON WRIGHT MD Ot 789.00 ABDOMINAL PAIN, UNSPECIFIED SITE 08/27/2017 WESTON WRIGHT MD Ot 793.11 SOLITARY PULMONARY NODULE 08/27/2017 WESTON WRIGHT MD Ot 593.9 RENAL URETERAL DIS NOS 08/27/2017 MARGUERITE WAITE MD Ot Z01.818 ENCOUNTER FOR OTHER PREPROCEDURAL EXAMIN 08/27/2017 MARGUERITE WAITE MD, Ot Z12.11 ENCOUNTER FOR SCREENING FOR MALIGNANT NE 08/27/2017 MARGUERITE WAITE MD, Ot Z86.010 PERSONAL HISTORY OF COLONIC POLYPS 08/27/2017 MARGUERITE WAITE MD, Ot Z87.11 PERSONAL HISTORY OF PEPTIC ULCER DISEASE 08/27/2017 FOREIGN HORAN TRIMMING CUTTER MACHINE Ot E11.9 TYPE 2 DIABETES MELLITUS WITHOUT COMPLIC 08/27/2017 FOREIGN HORAN TRIMMING CUTTER MACHINE Ot E78.4 OTHER HYPERLIPIDEMIA 08/27/2017 FOREIGN HORAN TRIMMING CUTTER MACHINE Ot I10 ESSENTIAL (PRIMARY) HYPERTENSION 08/27/2017 FOREIGN HORAN TRIMMING CUTTER MACHINE Ot 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 08/27/2017 MOHINIFOREIGN PAZ LISA Ot I65.23 OCCLUSION AND STENOSIS OF BILATERAL [place] 08/27/2017 AUNG FOREIGN Prince GONZALEZ Ot R07.89 OTHER CHEST PAIN 08/27/2017 AUNG FOREIGNHER Prince GONZALEZ Ot E11.9 TYPE 2 DIABETES MELLITUS WITHOUT COMPLIC 08/27/2017 RICHIE BENTLEY MD, Ot E11.9 TYPE 2 DIABETES MELLITUS WITHOUT COMPLIC 08/27/2017 RICHIE BENTLEY MD, Ot F32.9 MAJOR DEPRESSIVE DISORDER, SINGLE EPISOD 08/27/2017 RICHIE BENTLEY MD, Ot F41.9 ANXIETY DISORDER, UNSPECIFIED 08/27/2017 RICHIE BENTLEY MD, Ot I25.2 OLD MYOCARDIAL INFARCTION 08/27/2017 RICHIE BENTLEY MD, Ot K21.9 GASTRO-ESOPHAGEAL REFLUX DISEASE WITHOUT 08/27/2017 RICHIE BENTLEY MD, Ot M19.90 UNSPECIFIED OSTEOARTHRITIS, UNSPECIFIED 08/27/2017 RICHIE BENTLEY MD Ot R10.13 EPIGASTRIC PAIN 08/27/2017 RICHIE BENTLEY MD, Ot R10.9 UNSPECIFIED ABDOMINAL PAIN 08/27/2017 RICHIE BENTLEY MD, Ot Z79.82 STITCHER HAND (CURRENT) USE OF ASPIRIN 08/27/2017 RICHIE BENTLEY MD, Ot Z87.19 PERSONAL HISTORY OF OTHER DISEASES OF TH 08/27/2017 RICHIE BENTLEY MD, Ot Z87.442 PERSONAL HISTORY OF URINARY CALCULI 08/27/2017 RICHIE BENTLEY MD, Ot Z87.59 PERSONAL HISTORY OF COMP OF PREG, CHLDBR 08/27/2017 RICHIE BNETLEY MD, Ot Z87.891 PERSONAL HISTORY OF NICOTINE DEPENDENCE 08/27/2017 RICHIE BENTLEY MD, Ot Z90.721 ACQUIRED ABSENCE OF OVARIES, UNILATERAL 08/27/2017 RICHIE BENTLEY MD, Ot Z95.5 PRESENCE OF CORONARY ANGIOPLASTY IMPLANT 08/27/2017 RICHIE BENTLEY MD, Ot Z98.51 TUBAL LIGATION STATUS 08/28/2017 KADIE EDWARDS MD, Ot E11.9 TYPE 2 DIABETES MELLITUS WITHOUT COMPLIC 08/28/2017 KADIE EDWARDS MD Ot E78.00 PURE HYPERCHOLESTEROLEMIA, UNSPECIFIED 08/28/2017 KADIE [...] GIDDINESS 08/28/2017 KADIE EDWARDS MD, Ot Z79.82 STITCHER HAND (CURRENT) USE OF ASPIRIN 08/28/2017 KADIE EDWARDS [...] Z98.51 TUBAL LIGATION STATUS 08/29/2017 MARGUERITE WAITE MD Ot E11.9 TYPE 2 DIABETES MELLITUS WITHOUT COMPLIC 08/29/2017 MARGUERITE WAITE MD Ot I10 ESSENTIAL (PRIMARY) HYPERTENSION 08/29/2017 MARGUERITE WAITE MD, Ot I25.2 OLD MYOCARDIAL INFARCTION 08/29/2017 MARGUERITE WAITE MD, Ot K21.0 GASTRO-ESOPHAGEAL REFLUX DISEASE WITH ES 08/29/2017 MARGUERITE WAITE MD, Ot K29.70 GASTRITIS, UNSPECIFIED, WITHOUT BLEEDING 08/29/2017 MARGUERITE WAITE MD, Ot K62.1 RECTAL POLYP 08/29/2017 MARGUERITE WAITE MD, Ot K64.1 SECOND DEGREE HEMORRHOIDS 08/29/2017 MARGUERITE WAITE MD, Ot Z12.11 ENCOUNTER FOR SCREENING FOR MALIGNANT NE 08/29/2017 KIDO MD, TAKAAKI Ot Z87.442 PERSONAL HISTORY OF URINARY CALCULI 09/03/2017 RICHIE BENTLEY MD Ot E11.9 TYPE 2 DIABETES MELLITUS WITHOUT COMPLIC 09/03/2017 RICHIE BENTLEY MD, Ot F32.9 MAJOR DEPRESSIVE DISORDER, SINGLE EPISOD 09/03/2017 RICHIE BENTLEY MD, Ot F41.9 ANXIETY DISORDER, UNSPECIFIED 09/03/2017 RICHIE BENTLEY MD, Ot I25.2 OLD MYOCARDIAL INFARCTION 09/03/2017 RICHIE BENTLEY MD, Ot K21.9 GASTRO-ESOPHAGEAL REFLUX DISEASE WITHOUT 09/03/2017 RICHIE BENTLEY MD Ot M19.90 UNSPECIFIED OSTEOARTHRITIS, UNSPECIFIED 09/03/2017 RICHIE BENTLEY MD Ot R10.13 EPIGASTRIC PAIN 09/03/2017 RICHIE BENTLEY MD Ot R10.9 UNSPECIFIED ABDOMINAL PAIN 09/03/2017 RICHIE BENTLEY MD Ot Z79.82 STITCHER HAND (CURRENT) USE OF ASPIRIN 09/03/2017 RICHIE BENTLEY MD, Ot Z87.19 PERSONAL HISTORY OF OTHER DISEASES OF TH 09/03/2017 RICHIE BENTLEY MD, Ot Z87.442 PERSONAL HISTORY OF URINARY CALCULI 09/03/2017 RICHIE BENTLEY MD Ot Z87.59 PERSONAL HISTORY OF COMP OF PREG, CHLDBR 09/03/2017 RICHIE BENTLEY MD Ot Z87.891 PERSONAL HISTORY OF NICOTINE DEPENDENCE 09/03/2017 RICHIE BENTLEY MD Ot Z90.721 ACQUIRED ABSENCE OF OVARIES, UNILATERAL 09/03/2017 RICHIE BENTLEY MD Ot Z95.5 PRESENCE OF CORONARY ANGIOPLASTY IMPLANT 09/03/2017 RICHIE BENTLEY MD Ot Z98.51 TUBAL LIGATION STATUS 09/29/2017 Ot 250.00 DIAB LUCIA WO COMPL, TYPE II OR UNSPEC TY 09/29/2017 Ot 272.4 HYPERLIPIDEMIA NEC/NOS 09/29/2017 Ot V58.69 OTH MED,LT, CURRENT USE 09/29/2017 LINDEN MOISE FACC, DASIA FACP CCDS Ot 272.4 HYPERLIPIDEMIA NEC/NOS 09/29/2017 WESTON WRIGHT MD Ot 789.00 ABDOMINAL PAIN, UNSPECIFIED SITE 09/29/2017 WESTON WRIGHT MD Ot 793.11 SOLITARY PULMONARY NODULE 09/29/2017 WESTON WRIGHT MD Ot 593.9 RENAL URETERAL DIS NOS 09/29/2017 MARGUERITE WAITE MD, Ot Z01.818 ENCOUNTER FOR OTHER PREPROCEDURAL EXAMIN 09/29/2017 MARGUERITE WAITE MD, Ot Z12.11 ENCOUNTER FOR SCREENING FOR MALIGNANT NE 09/29/2017 MARGUERITE WAITE MD, Ot Z86.010 PERSONAL HISTORY OF COLONIC POLYPS 09/29/2017 MARGUERITE WAITE MD, Ot Z87.11 PERSONAL HISTORY OF PEPTIC ULCER DISEASE 09/29/2017 BAIMA FOREIGN L TRIMMING CUTTER MACHINE Ot E11.9 TYPE 2 DIABETES MELLITUS WITHOUT COMPLIC 09/29/2017 BAIMA, FOREIGN L TRIMMING CUTTER MACHINE Ot E78.4 OTHER HYPERLIPIDEMIA 09/29/2017 BAIMA, FOREIGN L TRIMMING CUTTER MACHINE Ot I10 ESSENTIAL (PRIMARY) HYPERTENSION 09/29/2017 BAIMA, FOREIGN L TRIMMING CUTTER MACHINE Ot 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 09/29/2017 BAIMA, FOREIGN L TRIMMING CUTTER MACHINE Ot I65.23 OCCLUSION AND STENOSIS OF BILATERAL RUSS 09/29/2017 BAIMA, FOREIGN L TRIMMING CUTTER MACHINE Ot R07.89 OTHER CHEST PAIN 09/29/2017 BAIMA, FOREIGN L TRIMMING CUTTER MACHINE Ot E11.9 TYPE 2 DIABETES MELLITUS WITHOUT COMPLIC 09/29/2017 PRISCILLA BLANCAS R PANTS MAKER Ot N28.89 OTHER SPECIFIED DISORDERS OF KIDNEY AND 09/29/2017 BLANCASNADER YeeELE R PANTS MAKER Ot N28.89 OTHER SPECIFIED DISORDERS OF KIDNEY AND 09/29/2017 NADER BLANCASELE R PANTS MAKER Ot R91.1 SOLITARY PULMONARY NODULE 10/05/2017 NADER BLANCASELE R PANTS MAKER Ot N28.89 OTHER SPECIFIED DISORDERS OF KIDNEY AND 10/05/2017 NADER BLANCASELE R PANTS MAKER Ot R91.1 SOLITARY PULMONARY NODULE 10/13/2017 NADER BLANCASELE R PANTS MAKER Ot N28.89 OTHER SPECIFIED DISORDERS OF KIDNEY AND 10/13/2017 PRISCILLA BLANCAS R PANTS MAKER Ot N28.1 CYST OF KIDNEY, ACQUIRED 10/13/2017 NADER BLANCASELE R PANTS MAKER Ot N28.89 OTHER SPECIFIED DISORDERS OF KIDNEY AND 10/13/2017 NADER BLANCASELE R PANTS MAKER Ot Z90.49 ACQUIRED ABSENCE OF OTHER SPECIFIED PART 11/16/2017 PRISCILLA BLANCAS R PANTS MAKER Ot Z12.31 ENCNTR SCREEN MAMMOGRAM FOR MALIGNANT NE 12/12/2017 VALENTINE MOISE, KHURRAM Caba Ot E11.9 TYPE 2 DIABETES MELLITUS WITHOUT COMPLIC 12/12/2017 VALENTINE MOISE, KHURRAM Caba Ot E78.00 PURE HYPERCHOLESTEROLEMIA, UNSPECIFIED 12/12/2017 VALENTINE MOISE, KHURRAM Caba Ot F32.9 MAJOR DEPRESSIVE DISORDER, SINGLE EPISOD 12/12/2017 VALENTINE MOISE, KHURRAM Gertrudis Ot F41.9 ANXIETY DISORDER, UNSPECIFIED 12/12/2017 VALENTINE MOISE, KHURRAM Gertrudis Ot 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 12/12/2017 VALENTINE MOISE, KHURRAM Caba Ot I25.2 OLD MYOCARDIAL INFARCTION 12/12/2017 VALENTINE MOISE, KHURRAM Gertrudis Ot K21.9 GASTRO-ESOPHAGEAL REFLUX DISEASE WITHOUT 12/12/2017 VALENTINE MOISE, KHURRAM Caba Ot M25.462 EFFUSION, LEFT KNEE 12/12/2017 VALENTINE MOISE, KHURRAM Gertrudis Ot W01.198A FALL SAME LEV FROM SLIP/TRIP W STRIKE AG 12/12/2017 VALENTINE MOISE, KHURRAM Gertrudis Ot Z79.82 GROUP HOME (CURRENT) USE OF ASPIRIN 12/12/2017 VALENTINE MOISE, KHURRAM Gertrudis Ot Z87.19 PERSONAL HISTORY OF OTHER DISEASES OF TH 12/12/2017 VALENTINE MOISE, KHURRAM Caba Ot Z87.442 PERSONAL HISTORY OF URINARY CALCULI 12/12/2017 VALENTINE MOISE, KHURRAM Caba Ot Z87.59 PERSONAL HISTORY OF COMP OF PREG, CHLDBR 12/12/2017 VALENTINE MOISE, KHURRAM Caba Ot Z87.891 PERSONAL HISTORY OF NICOTINE DEPENDENCE 12/12/2017 VALENTINE MOISE, KHURRAM Caba Ot Z88.1 ALLERGY STATUS TO OTHER ANTIBIOTIC AGENT 12/12/2017 VALENTINE MOISE, KHURRAM Caba Ot Z88.5 ALLERGY STATUS TO NARCOTIC AGENT STATUS 12/12/2017 VALENTINE MOISE, KHURRAM Caba Ot Z88.8 ALLERGY STATUS TO OTH DRUG/MEDS/BIOL SUB 12/12/2017 VALENTINE MOISE, KHURRAM Caba Ot Z90.721 ACQUIRED ABSENCE OF OVARIES, UNILATERAL 12/12/2017 VALENTINE MOISE, KHURRAM Caba Ot Z95.5 PRESENCE OF CORONARY ANGIOPLASTY IMPLANT 12/12/2017 VALENTINE MOISE, KHURRAM Caba Ot Z98.51 TUBAL LIGATION STATUS 12/14/2017 VALENTINE MOISE, KHURRAM Caba Ot E11.9 TYPE 2 DIABETES MELLITUS WITHOUT COMPLIC 12/14/2017 VALENTINE MOISE, KHURRAM Caba Ot E78.00 PURE HYPERCHOLESTEROLEMIA, UNSPECIFIED 12/14/2017 VALENTINE MOISE, KHURRAM Gertrudis Ot F32.9 MAJOR DEPRESSIVE DISORDER, SINGLE EPISOD 12/14/2017 VALENTINE MOISE, KHURRAM Caba Ot F41.9 ANXIETY DISORDER, UNSPECIFIED 12/14/2017 VALENTINE MOISE, KHURRAM Caba Ot 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 12/14/2017 VALENTINE MOISE, KHURRAM Gertrudis Ot I25.2 OLD MYOCARDIAL INFARCTION 12/14/2017 VALENTINE MOISE, KHURRAM Gertrudis Ot K21.9 GASTRO-ESOPHAGEAL REFLUX DISEASE WITHOUT 12/14/2017 VALENTINE MOISE, KHURRAM Caba Ot M25.462 EFFUSION, LEFT KNEE 12/14/2017 VALENTINE MOISE, KHURRAM Caba Ot W01.198A FALL SAME LEV FROM SLIP/TRIP W STRIKE AG 12/14/2017 VALENTINE MOISE, KHURRAM Caba Ot Z79.82 STITCHER HAND (CURRENT) USE OF ASPIRIN 12/14/2017 VALENTINE MOISE KHURRAM Gertrudis Ot Z87.19 PERSONAL HISTORY OF OTHER DISEASES OF TH 12/14/2017 VALENTINE MOISE, KHURRAM Caba Ot Z87.442 PERSONAL HISTORY OF URINARY CALCULI 12/14/2017 VALENTINE MOISE, KHURRAM Gertrudis Ot Z87.59 PERSONAL HISTORY OF COMP OF PREG, CHLDBR 12/14/2017 VALENTINE MOISE, KHURRAM Gertrudis Ot Z87.891 PERSONAL HISTORY OF NICOTINE DEPENDENCE 12/14/2017 VALENTINE MOISE, KHURRAM Gertrudis Ot Z88.1 ALLERGY STATUS TO OTHER ANTIBIOTIC AGENT 12/14/2017 KHURRAM GRIJALVA MD Ot Z88.5 ALLERGY STATUS TO NARCOTIC AGENT STATUS 12/14/2017 KHURRAM GRIJALVA MD Ot Z88.8 ALLERGY STATUS TO OTH DRUG/MEDS/BIOL SUB 12/14/2017 VALENTINE MOISE KHURRAM Gertrudis Ot Z90.721 ACQUIRED ABSENCE OF OVARIES, UNILATERAL 12/14/2017 KHURRAM GRIJALVA MD Ot Z95.5 PRESENCE OF CORONARY ANGIOPLASTY IMPLANT 12/14/2017 KHURRAM GRIJALVA MD Ot Z98.51 TUBAL LIGATION STATUS 04/11/2018 LINDEN MOISE FACC, DASIA CHACON CCDS Ot 272.4 HYPERLIPIDEMIA NEC/NOS 04/11/2018 WESTON WRIGHT MD Ot 789.00 ABDOMINAL PAIN, UNSPECIFIED SITE 04/11/2018 WESTON WRIGHT MD Ot 793.11 SOLITARY PULMONARY NODULE 04/11/2018 WESTON WRIGHT MD Ot 593.9 RENAL URETERAL DIS NOS 04/11/2018 MARGUERITE WAITE MD, Ot Z01.818 ENCOUNTER FOR OTHER PREPROCEDURAL EXAMIN 04/11/2018 MARGUERITE WAITE MD, Ot Z12.11 ENCOUNTER FOR SCREENING FOR MALIGNANT NE 04/11/2018 MARGUERITE WAITE MD, Ot Z86.010 PERSONAL HISTORY OF COLONIC POLYPS 04/11/2018 MARGUERITE WAITE MD, Ot Z87.11 PERSONAL HISTORY OF PEPTIC ULCER DISEASE 04/11/2018 FOREIGN HORAN L TRIMMING CUTTER MACHINE Ot E11.9 TYPE 2 DIABETES MELLITUS WITHOUT COMPLIC 04/11/2018 MOHINIMA FOREIGN L TRIMMING CUTTER MACHINE Ot E78.4 OTHER HYPERLIPIDEMIA 04/11/2018 AUNG FOREIGN L TRIMMING CUTTER MACHINE Ot I10 ESSENTIAL (PRIMARY) HYPERTENSION 04/11/2018 AUNG FOREIGN L TRIMMING CUTTER MACHINE Ot 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 04/11/2018 ESTHER HORANHER L TRIMMING CUTTER MACHINE Ot I65.23 OCCLUSION AND STENOSIS OF BILATERAL RUSS 04/11/2018 MOHINIMA FOREIGN L TRIMMING CUTTER MACHINE Ot R07.89 OTHER CHEST PAIN 04/11/2018 BAIMA FOREIGN L TRIMMING CUTTER MACHINE Ot E11.9 TYPE 2 DIABETES MELLITUS WITHOUT COMPLIC 04/11/2018 PRISCILLA BLANCAS R PANTS MAKER Ot N28.89 OTHER SPECIFIED DISORDERS OF KIDNEY AND 04/11/2018 BLANCASPRISCILLA Yee R PANTS MAKER Ot N28.89 OTHER SPECIFIED DISORDERS OF KIDNEY AND 04/11/2018 PRISCILLA BLANCAS R PANTS MAKER Ot R91.1 SOLITARY PULMONARY NODULE 04/11/2018 PRISCILLA BLANCAS R PANTS MAKER Ot N28.1 CYST OF KIDNEY, ACQUIRED 04/11/2018 PRISCILLA BLANCAS R PANTS MAKER Ot N28.89 OTHER SPECIFIED DISORDERS OF KIDNEY AND 04/11/2018 PRISCILLA BLANCAS R PANTS MAKER Ot Z90.49 ACQUIRED ABSENCE OF OTHER SPECIFIED PART 04/11/2018 PRISCILLA BLANCAS PANTS MAKER Ot Z12.31 ENCNTR SCREEN MAMMOGRAM FOR MALIGNANT NE 04/11/2018 TRAVIS CANDELARIA PANTS MAKER Ot E11.9 TYPE 2 DIABETES MELLITUS WITHOUT COMPLIC 04/11/2018 TRAVIS CANDELARIA PANTS MAKER Ot E78.00 PURE HYPERCHOLESTEROLEMIA, UNSPECIFIED 04/11/2018 TRAVIS CANDELARIA APRN Ot F32.9 MAJOR DEPRESSIVE DISORDER, SINGLE EPISOD 04/11/2018 TRAVIS CANDELARIA APRN Ot F41.9 ANXIETY DISORDER, UNSPECIFIED 04/11/2018 TRAVIS CANDELARIA APRN Ot 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 04/11/2018 TRAVIS CANDELARIA APRN Ot G89.29 OTHER CHRONIC PAIN 04/11/2018 TRAVIS CANDELARIA APRN Ot I25.2 OLD MYOCARDIAL INFARCTION 04/11/2018 TRAVIS CANDELARIA APRN Ot K21.9 GASTRO-ESOPHAGEAL REFLUX DISEASE WITHOUT 04/11/2018 TRAVIS CANDELARIA APRN Ot R10.9 UNSPECIFIED ABDOMINAL PAIN 04/11/2018 TRAVIS CANDELARIA APRN Ot Z79.82 STITCHER HAND (CURRENT) USE OF ASPIRIN 04/11/2018 TRAVIS CANDELARIA APRN Ot Z85.828 PERSONAL HISTORY OF OTHER MALIGNANT NEOP 04/11/2018 TRAVIS CANDELARIA APRN Ot Z87.19 PERSONAL HISTORY OF OTHER DISEASES OF TH 04/11/2018 TRAVIS CANDELARIA APRN Ot Z87.442 PERSONAL HISTORY OF URINARY CALCULI 04/11/2018 TRAVIS CANDELARIA APRN Ot Z87.59 PERSONAL HISTORY OF COMP OF PREG, CHLDBR 04/11/2018 TRAVIS CANDELARIA APRN Ot Z87.891 PERSONAL HISTORY OF NICOTINE DEPENDENCE 04/11/2018 TRAVIS CANDELARIA APRN Ot Z88.1 ALLERGY STATUS TO OTHER ANTIBIOTIC AGENT 04/11/2018 TRAVIS CANDELARIA APRN Ot Z88.4 ALLERGY STATUS TO ANESTHETIC AGENT STATU 04/11/2018 TRAVIS CANDELARIA APRN Ot Z88.5 ALLERGY STATUS TO NARCOTIC AGENT STATUS 04/11/2018 TRAVIS CANDELARIA APRN Ot Z90.721 ACQUIRED ABSENCE OF OVARIES, UNILATERAL 04/11/2018 TRAVIS CANDELARIA APRN Ot Z98.51 TUBAL LIGATION STATUS 04/13/2018 TRAVIS CANDELARIA APRN Ot E11.9 TYPE 2 DIABETES MELLITUS WITHOUT COMPLIC 04/13/2018 TRAVIS CANDELARIA APRN Ot E78.00 PURE HYPERCHOLESTEROLEMIA, UNSPECIFIED 04/13/2018 TRAVIS CANDELARIA APRN Ot F32.9 MAJOR DEPRESSIVE DISORDER, SINGLE EPISOD 04/13/2018 TRAVIS CANDELARIA APRN Ot F41.9 ANXIETY DISORDER, UNSPECIFIED 04/13/2018 TRAVIS CANDELARIA APRN Ot 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 04/13/2018 TRAVIS CANDELARIA APRN Ot G89.29 OTHER CHRONIC PAIN 04/13/2018 TRAVIS CANDELARIA APRN Ot I25.2 OLD MYOCARDIAL INFARCTION 04/13/2018 TRAVIS CANDELARIA APRN Ot K21.9 GASTRO-ESOPHAGEAL REFLUX DISEASE WITHOUT 04/13/2018 TRAVIS CANDELARIA APRN Ot R10.9 UNSPECIFIED ABDOMINAL PAIN 04/13/2018 TRAVIS CANDELARIA APRN Ot Z79.82 GROUP HOME (CURRENT) USE OF ASPIRIN 04/13/2018 TRAVIS CANDELARIA APRN Ot Z85.828 PERSONAL HISTORY OF OTHER MALIGNANT NEOP 04/13/2018 TRAVIS CANDELARIA APRN Ot Z87.19 PERSONAL HISTORY OF OTHER DISEASES OF TH 04/13/2018 TRAVIS CANDELARIA APRN Ot Z87.442 PERSONAL HISTORY OF URINARY CALCULI 04/13/2018 TRAVIS CANDELARIA APRN Ot Z87.59 PERSONAL HISTORY OF COMP OF PREG, CHLDBR 04/13/2018 TRAVIS CANDELARIA APRN Ot Z87.891 PERSONAL HISTORY OF NICOTINE DEPENDENCE 04/13/2018 TRAVIS CANDELARIA APRN Ot Z88.1 ALLERGY STATUS TO OTHER ANTIBIOTIC AGENT 04/13/2018 TRAVIS CANDELARIA APRN Ot Z88.4 ALLERGY STATUS TO ANESTHETIC AGENT STATU 04/13/2018 TRAVIS CANDELARIA APRN Ot Z88.5 ALLERGY STATUS TO NARCOTIC AGENT STATUS 04/13/2018 TRAVIS CANDELARIA APRN Ot Z90.721 ACQUIRED ABSENCE OF OVARIES, UNILATERAL 04/13/2018 TRAVIS CANDELARIA APRN Ot Z98.51 TUBAL LIGATION STATUS 04/22/2018 PRISCILLA BLANCAS APRN Ot C64.2 MALIGNANT NEOPLASM OF LEFT KIDNEY, EXCEP Procedures There is no data. Results Test Result Range Urinalysis - 01/05/17 09:15 Icotest N/A Negative Urine Volume Urine Volume Sufficient (10mL) Urine-Appearance Clear Clear Urine-Bacteria Trace Urine-Bilirubin Negative Negative Urine-Blood Negative Negative Urine-Color Yellow Colorless-Lt. Yellow Urine-Epithelial Cells 0-5/HPF Urine-Glucose Negative Negative Urine-Ketones Negative Negative Urine-Leukocytes Negative Negative Urine-Nitrite Negative Negative Urine-Other Urine Saved if Culture Needed (48hrs from time of collection) Urine-pH 6.0 5-8.5 Urine-Protein Negative Negative Urine-RBC Rare/HPF Urine-Specific Galloway 1.010 1.000-1.030 Urine-WBC Few/HPF Urobilinogen 0.2 E.U./dL 0.2-1.0 Lipid Panel - 01/07/17 09:44 C/HDL 3.6 3.7-6.7 Cholesterol 139 mg/dL 100-240 HDL 39 mg/dL 30-85 LDL-Calculated 83 mg/dL 0-100 Trig 87 mg/dL 35-160 VLDL 17 mg/dL 0-42 Other Culture - 02/08/17 18:05 PRELIM CULTURE RESULTS No Growth 24 hours FINAL CULTURE RESULTS No Growth 48 hours MEDIA PLATED Setup at 19:50 on 02/08/2017 Sed Rate - 03/18/17 14:10 Sed Rate 7 mm/hr 9-15 LymeDisease Antibodies, Total and IgM, With Reflex to WB - 03/18/17 14:10 LYME IGG/IGM AB <0.91 ISR 0.00-0.90 LYME DISEASE AB, QUANT, IGM <0.80 INDEX 0.00-0.79 Ehrlichia Ab Panel - 03/18/17 14:10 E. CHAFFEENSIS (HME) IGG TITER NEGATIVE NEG:<1:64 E. CHAFFEENSIS (HME) IGM TITER NEGATIVE NEG:<1:20 HGE IGG TITER NEGATIVE NEG:<1:64 HGE IGM TITER NEGATIVE NEG:<1:20 Thyroid Stimulating Hormone - 03/24/17 11:30 TSH 0.81 mIU/mL 0.32-5.00 Automated blood complete blood count (hemogram) panel [...] 106 mmol/L 98-107 Carbon dioxide 27 mmol/L 21-32 Serum or plasma anion gap [...] plasma albumin measurement (mass/volume) 3.8 g/dL 3.2-4.5 CULTURE, GENITAL - 10/28/17 17:16 CULTURE, GENITAL SEE NOTE NRG SUREPATH PAP RFX HPV mRNA E6/E7 - 10/28/17 17:16 CLINICAL INFORMATION: NRG LMP: AGE 55 NRG PREV. PAP: UNKNOWN NRG PREV. BX: NRG SOURCE: Cervix NRG STATEMENT OF ADEQUACY: NRG INTERPRETATION/RESULT: NRG TREE SAPPER: NRG INFECTION: NRG MICROALBUMIN/CREATININE RATIO, URINE - 12/28/17 17:17 CREATININE, RANDOM URINE 121 mg/dL 20-320 MICROALBUMIN 1.6 mg/dL See Note: MICROALBUMIN/CREATININE RATIO, RANDOM URINE 13 mcg/mg creat <30 CBC - 03/03/18 10:13 WHITE BLOOD CELL COUNT 8.3 Thousand/uL 3.8-10.8 RED BLOOD CELL COUNT 4.74 Million/uL 3.80-5.10 HEMOGLOBIN 14.8 g/dL 11.7-15.5 HEMATOCRIT 44.4 % 35.0-45.0 MCV 93.7 fL 80.0-100.0 MCH 31.2 pg 27.0-33.0 MCHC 33.3 g/dL 32.0-36.0 RDW 12.6 % 11.0-15.0 PLATELET COUNT 164 Thousand/uL 140-400 MPV 10.0 fL 7.5-12.5 ABSOLUTE NEUTROPHILS 5254 cells/uL 3558-2391 ABSOLUTE LYMPHOCYTES 2150 cells/uL 850-3900 ABSOLUTE MONOCYTES 581 cells/uL 200-950 ABSOLUTE EOSINOPHILS 249 cells/uL 15-500 ABSOLUTE BASOPHILS 66 cells/uL 0-200 NEUTROPHILS 63.3 % NRG LYMPHOCYTES 25.9 % NRG MONOCYTES 7.0 % NRG EOSINOPHILS 3.0 % NRG BASOPHILS 0.8 % NRG THYROID ANALYZER - 03/03/18 10:13 TSH 0.59 mIU/L 0.40-4.50 Complete blood count (CBC) with automated white blood cell (WBC) differential - 04/11/18 22:12 Blood leukocytes automated count (number/volume) 9.4 10*3/uL 4.3-11.0 Blood erythrocytes automated count (number/volume) 4.64 10*6/uL 4.35-5.85 Venous blood hemoglobin measurement (mass/volume) 14.7 g/dL 11.5-16.0 Blood hematocrit (volume fraction) 44 % 35-52 Automated erythrocyte mean corpuscular volume 94 [foz_us] 80-99 Automated erythrocyte mean corpuscular hemoglobin (mass per erythrocyte) 32 pg 25-34 Automated erythrocyte mean corpuscular hemoglobin concentration measurement ( mass/volume) 34 g/dL 32-36 Automated erythrocyte distribution width ratio 13.0 % 10.0-14.5 Automated blood platelet count (count/volume) 189 10*3/uL 130-400 Automated blood platelet mean volume measurement 10.1 [foz_us] 7.4-10.4 Automated blood neutrophils/100 leukocytes 53 % 42-75 Automated blood lymphocytes/100 leukocytes 34 % 12-44 Blood monocytes/100 leukocytes 10 % 0-12 Automated blood eosinophils/100 leukocytes 3 % 0-10 Automated blood basophils/100 leukocytes 1 % 0-10 Blood neutrophils automated count (number/volume) 5.0 10*3 1.8-7.8 Blood lymphocytes automated count (number/volume) 3.2 10*3 1.0-4.0 Blood monocytes automated count (number/volume) 1.0 10*3 0.0-1.0 Automated eosinophil count 0.2 10*3/uL 0.0-0.3 Automated blood basophil count (count/volume) 0.1 10*3/uL 0.0-0.1 Whole blood basic metabolic panel - 04/11/18 22:12 Serum or plasma sodium measurement (moles/volume) 143 mmol/L 135-145 Serum or plasma potassium measurement (moles/volume) 3.9 mmol/L 3.6-5.0 Serum or plasma chloride measurement (moles/volume) 109 mmol/L 98-107 Carbon dioxide 21 mmol/L 21-32 Serum or plasma anion gap determination (moles/volume) 13 mmol/L 5-14 Serum or plasma urea nitrogen measurement (mass/volume) 14 mg/dL 7-18 Serum or plasma creatinine measurement (mass/volume) 0.66 mg/dL 0.60-1.30 Serum or plasma urea nitrogen/creatinine mass ratio 21 NRG Serum or plasma creatinine measurement with calculation of estimated glomerular filtration rate > NRG Serum or plasma glucose measurement (mass/volume) 122 mg/dL 70-105 Serum or plasma calcium measurement (mass/volume) 9.8 mg/dL 8.5-10.1 Complete urinalysis with reflex to culture - 04/11/18 22:28 Urine color determination YELLOW NRG Urine clarity determination CLEAR NRG Urine pH measurement by test strip 5 5-9 Specific gravity of urine by test strip 1.030 1.016- 1.022 Urine protein assay by test [...] detection in urine sediment by light microscopy PRESENT NRG Casts detection in urine sediment by light microscopy NONE NRG Mucus detection in urine sediment by light microscopy SMALL NRG Complete urinalysis with reflex to culture NO NRG Calcium oxalate crystals detection in urine sediment by light microscopy FEW NRG CMP - 04/14/18 10:29 GLUCOSE 159 mg/dL 65-99 UREA NITROGEN (BUN) 18 mg/dL 7-25 CREATININE 0.55 mg/dL 0.50-0.99 eGFR NON-AFR. ANDORRAN 100 mL/min/1.73m2 > OR=60 eGFR 116 mL/min/1.73m2 > OR=60 BUN/CREATININE RATIO NOT APPLICABLE (calc) 6-22 SODIUM 140 mmol/L 135-146 POTASSIUM 3.9 mmol/L 3.5-5.3 CHLORIDE 105 mmol/L 98-110 CARBON DIOXIDE 27 mmol/L 20-31 CALCIUM 9.0 mg/dL 8.6-10.4 PROTEIN, TOTAL 6.8 g/dL 6.1-8.1 ALBUMIN 4.0 g/dL 3.6-5.1 GLOBULIN 2.8 g/dL (calc) 1.9-3.7 ALBUMIN/GLOBULIN RATIO 1.4 (calc) 1.0-2.5 BILIRUBIN, TOTAL 0.4 mg/dL 0.2-1.2 ALKALINE PHOSPHATASE 91 U/L 33-130 AST 14 U/L 10-35 ALT 12 U/L 6-29 Encounters ACCT No. Visit Date/Time Discharge Status Pt. Type Provider Facility Loc./Unit Complaint [id number] 06/08/2014 07:15:00 06/08/2014 10:40:00 DIS Inpatient DAI CEDILLO [facility] OPS [id number] 05/27/2015 08:42:15 ACT Document Registration [id number] 04/27/2018 13:30:00 04/27/2018 23:59:59 CLS Outpatient PRISCILLA BLANCAS [facility] [id number] 04/14/2018 09:20:00 Document Registration [id number] 03/03/2018 10:00:00 Document Registration [id number] 12/28/2017 16:00:00 Document Registration [id number] 10/28/2017 15:40:00 Document Registration [id number] 08/06/2017 12:18:00 08/25/2017 15:05:00 DIS Outpatient JAVIER BUSTAMANTE [id number] 07/31/2017 13:55:00 07/31/2017 23:59:00 DIS Outpatient Weston Wright [id number] 07/10/2017 10:32:00 07/10/2017 12:21:00 [facility] [id number] 06/29/2017 17:27:00 06/29/2017 18:43:00 DIS Outpatient Jhon Altamirano [id number] 03/24/2017 11:37:00 03/24/2017 23:59:00 DIS Outpatient Weston Wright [id number] 03/18/2017 14:10:00 03/18/2017 23:59:00 DIS Outpatient Brionna Chavez [id number] 02/15/2017 13:02:00 03/10/2017 14:30:00 DIS Outpatient Weston Wright [id number] 02/08/2017 18:59:00 02/08/2017 23:59:00 DIS Outpatient Weston Wright [id number] 02/05/2017 12:30:00 02/05/2017 14:45:00 [id number] 01/07/2017 09:44:00 01/07/2017 23:59:00 DIS Outpatient Weston Wright [id number] 01/05/2017 13:53:00 01/05/2017 23:59:00 DIS Outpatient Weston Wright [id number] 06/29/2017 18:28:27 Document Registration [id number] 04/21/2018 09:16:00 04/21/2018 23:59:59 CLS Outpatient PRISCILLA BLANCAS [employer] [facility] RAD RENAL CARCINOMA OF LEFT KIDNEY [id number] 04/11/2018 20:59:00 04/11/2018 23:02:00 DIS Emergency TRAVIS CANDELARIA [employer] [facility] ER KIDNEY CANCER, PAIN [id number] 12/15/2017 10:13:00 12/15/2017 23:59:59 CLS Preadmit PRISCILLA BLANCAS [employer] [facility] REHAB LUMBAGO WITH SCIATICA [id number] 12/12/2017 10:28:00 12/12/2017 13:57:00 DIS Emergency VALENTINE MOISE, KHURRAM Caba [facility] ER FALL/L KNEE INJ [id number] 11/23/2017 13:18:00 11/23/2017 23:59:59 CLS Preadmit TAMY WINTERS MD [facility] RAD N28.89 LEFT RENAL MASS [id number] 11/03/2017 09:12:00 11/03/2017 23:59:59 CLS Outpatient PRISCILLA BLANCAS [employer] [facility] RAD SCREENING [id number] 09/29/2017 08:35:00 09/29/2017 23:59:59 CLS Outpatient PRISCILLA BLANCAS [employer] [facility] RAD RIGHT RENAL MASS N28.89 [id number] 09/27/2017 08:41:00 09/27/2017 23:59:59 CLS Outpatient PRISCILLA BLANCAS [employer] [facility] RAD RT RENAL MASS [id number] 09/24/2017 08:07:00 09/24/2017 23:59:59 CLS Outpatient PRISCILLA BLANCAS [employer] [facility] RAD R91.1 PULMONARY NODULE [id number] 09/22/2017 14:17:00 09/22/2017 23:59:59 CLS Preadmit PRISCILLA BLANCAS [employer] [facility] REHAB NECK PAIN [id number] 09/03/2017 13:04:00 09/03/2017 23:59:59 CLS Preadmit PRISCILLA BLANCAS [employer] [facility] RAD RETROLISTHESIS OF VERTEBRE [id number] 08/28/2017 12:05:00 08/28/2017 15:17:00 DIS Emergency GRACE MOISE, KADIE Torres [facility] ER R SIDE PAIN, EXTREME DIZZINESS [id number] 08/27/2017 07:00:00 08/27/2017 09:46:00 DIS Emergency SHEREE MOISE, RICHIE Nuno [facility] ER RT SIDE PAIN [id number] 08/18/2017 12:03:00 08/18/2017 15:35:00 DIS Outpatient MARGUERITE WAITE MD [facility] ENDO HX ULCERS AND POLYPS [id number] 08/16/2017 05:55:00 08/16/2017 14:21:00 DIS Outpatient MARGUERITE WAITE MD [facility] PREOP COLO/EGD [id number] 07/14/2017 09:30:00 07/14/2017 23:59:59 CLS Preadmit MARGUERITE WAITE MD [facility] ENDO HISTORY OF ULCERS AND POLYPS [id number] 07/12/2017 08:30:00 07/12/2017 08:30:00 CAN MARGUERITE Montes MD [facility] PREOP EGD/COLONOSCOPY [id number] 05/18/2017 07:11:00 05/18/2017 14:25:00 DIS Outpatient LINDEN LUOCDASIA FACP CCDS [facility] CATH CAD,SOB, FATIGUE [id number] 05/13/2017 14:16:00 05/13/2017 23:59:59 CLS Outpatient FOREIGN HORAN [facility] LAB E11.9 [id number] 05/05/2017 09:30:00 05/05/2017 23:59:59 CLS Preadmit MARGUERITE WAITE MD [facility] ENDO HISTORY ULCER/HISTORY POLYPS [id number] 05/03/2017 05:40:00 05/03/2017 23:59:59 CLS Outpatient MARGUERITE WAITE MD [facility] PREOP COLONOSCOPY, EGD [id number] 04/29/2017 07:08:00 04/29/2017 23:59:59 CLS Outpatient FOREIGN HORAN [facility] CARD CAD [id number] 05/27/2015 08:41:00 05/27/2015 23:59:59 CLS Outpatient WESTON WRIGHT MD [facility] RAD RENAL MASS FOLLOWUP FROM PET [id number] 05/21/2015 07:48:00 05/21/2015 23:59:59 CLS Outpatient WESTON WRIGHT MD [facility] RAD ABDOMINAL PAIN LESION ON KIDNEY [id number] 04/11/2013 10:56:00 04/11/2013 23:59:59 CLS Outpatient LINDEN MOISE FACC, DASIA CHACON CCDS [facility] LAB HYPERLIPADEMIA [id number] 05/27/2015 08:41:00 Document Registration [id number] 05/27/2015 08:41:00 Document Registration [id number] 05/02/2012 10:54:00 Document Registration [id number] 07/21/2011 12:18:00 Document Registration [id number] 06/18/2011 10:41:00 Document Registration [id number] 06/04/2011 10:33:00 Document Registration [id number] 06/02/2011 08:14:00 Document Registration [id number] 05/26/2011 11:00:00 Document Registration [id number] 03/03/2011 05:36:00 Document Registration [id number] 02/24/2011 08:35:00 Document Registration [id number] 06/17/2010 05:35:00 Document Registration
== END 2018-05-01 21:00 | disposition home or self-care (01) ==
LOC: EDUNIT# 17:12 → ER 17:14
DX: M47.22 Other spondylosis with radiculopathy, cervical region (principal); I25.2 Old myocardial infarction; E78.00 Pure hypercholesterolemia, unspecified; K21.9 Gastro-esophageal reflux disease without esophagitis; E11.9 Type 2 diabetes mellitus without complications; F41.9 Anxiety disorder, unspecified; F32.9 Major depressive disorder, single episode, unspecified; Z87.19 Personal history of other diseases of the digestive system; Z87.442 Personal history of urinary calculi; Z88.1 Allergy status to other antibiotic agents; Z88.5 Allergy status to narcotic agent; Z88.4 Allergy status to anesthetic agent; Z79.82 Long term (current) use of aspirin; Z87.891 Personal history of nicotine dependence; Z98.51 Tubal ligation status; Z87.59 Personal history of other complications of pregnancy, childbirth and the puerperium; Z85.828 Personal history of other malignant neoplasm of skin
CPT/HCPCS: 70450; 72125

== ENCOUNTER → 2018-07-19 | Outpatient (CLI) | payer MEDICAID ==
[~2018-07-19] MED LIST changes: +PRD20T PO
--- NOTE | 2018-07-19 14:33 | Diagnostic Imaging Report ---
PROCEDURE: MR imaging cervical spine without contrast. TECHNIQUE: Multiplanar, multisequence MR imaging of the cervical spine was performed without contrast. 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 COMPARISON: No prior MRI studies are available for comparison. FINDINGS: Curvature and alignment of the cervical spine is normal. The marrow signal intensity is unremarkable. No geographic marrow lesion or fracture is seen. There is significant degenerative disc disease at multiple levels of the cervical spine, most marked at C4-5, C5-6, C6-7, and C7-T1 levels, where there is moderate disc space narrowing and desiccation as well as endplate osteophyte formation. The cervical cord demonstrates normal homogeneous signal intensity and normal morphology. Craniocervical junction is unremarkable. C2-3: Central canal is widely patent. No significant neural foraminal stenosis is seen. C3-4: Central canal is patent. There does appear to be moderate bilateral neural foraminal narrowing. C4-5: Endplate osteophytes indent the ventral thecal sac. There is ktif-qk-yaykyptz central canal narrowing. There also is significant bilateral neural foraminal stenosis due to uncovertebral joint degenerative change. C5-6: Broad-based disc/osteophyte complex produces moderate central canal stenosis. There is also significant bilateral neural foraminal stenosis. C6-7: Broad-based disc/osteophyte complex results in mild central canal narrowing. There is moderate bilateral neural foraminal stenosis due to uncovertebral joint degenerative change. C7-T1: There is a midline disc/osteophyte indenting the ventral thecal sac and producing mild narrowing of the canal. Vewu-kh-kraplzck bilateral neural foraminal stenosis is seen. Paraspinous tissues are unremarkable. IMPRESSION: Significant multilevel cervical spondylosis with multilevel central canal and neural foraminal stenosis described level by level above. Dictated by: Dictated on workstation # [id number]
== END ==
LOC: RAD 10:46
PROVIDERS: ATTEND Nurse Practitioner Family
DX: M48.03 Spinal stenosis, cervicothoracic region (principal); M47.22 Other spondylosis with radiculopathy, cervical region; M99.71 Connective tissue and disc stenosis of intervertebral foramina of cervical region; M25.78 Osteophyte, vertebrae; M50.13 Cervical disc disorder with radiculopathy, cervicothoracic region; M50.121 Cervical disc 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
CPT/HCPCS: 72141

== ENCOUNTER 2018-09-15 10:51 | Emergency (ER) | payer MEDICAID ==
[~2018-09-15] VITALS: Ht 172.7 cm; Wt 93.0 kg
[2018-09-15] MEDS ORDERED: fentaNYL INJECTION 100 MCG/2 ML AMP IVP ONE (12:15)
--- NOTE | 2018-09-15 12:22 | ED Neck-Back Pain/Injury ---
General Chief Complaint: Head/Cervical Problems Stated Complaint: HEAD/NECK PAIN Nursing Triage Note: pt brought in by ems with complaint of neck pain. pt states she has chronic pain but today it has significantly worsened. pt states she did start using 5lb handweights on wednesday. states she is scheduled to have surgey on september 27 Nursing Sepsis Screen: No Definite Risk Source of Information: Patient Exam Limitations: No Limitations History of Present Illness Date Seen by Provider: Sep 15, 2018 Time Seen by Provider: 12:19 Initial Comments To ER with reports of headache and severe neck pain. She arrives per EMS from home. She has chronic neck pain and is scheduled to have cervical spine surgery by Dr. Hernandez at [facility] on September 27. The pain became worse yesterday. Today she was having difficulty drinking her coffee because she had pain with raising a coffee mug to her mouth and she couldn't bend her head down. She denies any loss of bowel or bladder control. Location: C-Spine Timing/Duration: 1-2 Days Severity: Severe Associated Symptoms: No tingling in legs/feet, No sensory/motor loss Allergies and Home Medications Allergies Coded Allergies: ketorolac (Verified Allergy, Intermediate, 08/27/17) doxycycline (Unverified Allergy, Unknown, 08/16/17) hydrocodone (Unverified Allergy, Unknown, 08/16/17) piroxicam (Unverified Allergy, Unknown, 08/16/17) Home Medications Aspirin 81 Mg Tab.chew, 81 MG PO DAILY, (Reported) Atorvastatin Calcium 10 Mg Tablet, 10 MG PO HS, (Reported) Lisinopril 20 Mg Tablet, 20 MG PO BID, (Reported) Metoprolol Tartrate 100 Mg Tablet, 100 MG PO BID, (Reported) [place]-3/Dha/Epa/Fish Oil 1 Each Capsule, 1 EACH PO BID, (Reported) Oxycodone HCl/Acetaminophen 1 Each Tablet, 1 TAB PO TID PRN for PAIN-MODERATE, ( Reported) Pantoprazole Sodium 40 Mg Tablet.dr, 40 MG PO DAILY, (Reported) Pioglitazone HCl/Metformin HCl 1 Each Tablet, 0.5 TAB PO BID, (Reported) Prednisone 20 Mg Tab, 40 MG PO DAILY Prescribed by: KADIE EDWARDS on 05/01/182049 Sitagliptin Phosphate 100 Mg Tablet, 100 MG PO DAILY, (Reported) Sucralfate 1 Gm Tablet, 1 GM PO ACHS, (Reported) Tramadol HCl 50 Mg Tablet, 50 MG PO 4 TIMES A DAY Prescribed by: RICHIE BENTLEY on 08/27/17 0937 Patient Home Medication List Home Medication List Reviewed: Yes Review of Systems Constitutional: see HPI; No chills, No fever EENTM: see HPI Respiratory: no symptoms reported Cardiovascular: no symptoms reported Genitourinary: no symptoms reported Musculoskeletal: see HPI Skin: no symptoms reported Psychiatric/Neurological: No Symptoms Reported Past Ygokyru-Hqvwmg-Nehcfy Hx Patient Social History Alcohol Use: Denies Use Recreational Drug Use: No Smoking Status: Former Smoker Type Used: Cigarettes Former Smoker, Quit: Aug 16, 1996 Recent Foreign Travel: No Contact w/Someone Who Travel: No Recent Infectious Disease Expo: No Recent Hopitalizations: No Immunizations Up To Date Tetanus Booster (TDap): Unknown Date of Pneumonia Vaccine: May 18, 2012 Seasonal Allergies Seasonal Allergies: Yes (MILD) Past Medical History Surgeries: Yes (LT SHOULDER x2, LT OOPHORECTOMY, BILAT CTR, RT KNEE SCOPE x2, LT KNEE SCOPE) Section, Gallbladder, Tubal Ligation Respiratory: Yes ("NODULES IN MY LUNGS") Cardiac: Yes (HEART CATH-NO STENTS, NE x3) Heart Attack, High Cholesterol, Irregular Heartbeat Neurological: Yes (LOZADA'S PALSY LEFT SIDE OF FACE x2) Reproductive Disorders: No PIGMENT PUSHER History: Menopausal Sexually Transmitted Disease: No HIV/AIDS: No Genitourinary: Yes (kidney removal) Kidney Stones Gastrointestinal: Yes Colitis, Gastroesophageal Reflux, Chronic Diarrhea, Ulcer Musculoskeletal: Yes Degenerate Disk Disease, Arthritis, Chronic Back Pain Endocrine: Yes Diabetes, Non-Insulin dep Loss of Vision: Bilateral Hearing Impairment: Denies Cancer: Yes Kidney What Type of Treatment Did You: Surgical Intervention Psychosocial: Yes (MILD-RELATED TO LOSS OF ) Anxiety, Depression Integumentary: No Blood Disorders: No Adverse Reaction/Blood Tranf: No Family Medical History No Pertinent Family Hx Physical Exam Vital Signs Vital Signs - First Documented 09/15/18 10:51 Temp 98.0 Pulse 62 Resp 20 B/P (MAP) 171/83 (112) Pulse Ox 92 O2 Delivery Room Air Capillary Refill : Less Than 3 Seconds Height, Weight, BMI Height: 5'8.00" Weight: 205lbs. 0.0oz. 92.936889kg; 32.7 BMI Method:Stated General Appearance: No Apparent Distress, WD/WN HEENT: PERRL/EOMI, TMs Normal Respiratory: No Accessory Muscle Use, No Respiratory Distress Gastrointestinal: Non Tender, Soft Extremity: Normal Capillary Refill, Normal Inspection Neurologic/Psychiatric: Alert, Oriented x3 Skin: Normal Color, Warm/Dry Alert and oriented. GCS 15. Structural Layout Worker strength is 5 out of 5 bilaterally. Normal sensation in her arms. Lower extremity strength is also 5 out of 5. Progress/Results/Core Measures Results/Orders My Orders Orders - TRAVIS CANDELARIA APRN Mri Cervical Spine W/O Contras (09/15/18 11:19) Fentanyl Injection (Sublimaze Injection (09/15/18 12:15) Morphine Injection (Morphine Injection (09/15/18 12:30) Oxycodone Immediate Rel Tablet (Oxyir Ta (09/15/18 13:30) Medications Given in ED Current Medications Medications Dose Ordered Sig/Liliane Route Start Time Stop Time Status Last Admin Dose Admin Morphine Sulfate 6 mg ONCE ONCE IVP 09/15/18 12:30 09/15/18 12:31 DC 09/15/18 12:27 6 MG Vital Signs/I&O 09/15/18 10:51 Temp 98.0 Pulse 62 Resp 20 B/P (MAP) 171/83 (112) Pulse Ox 92 O2 Delivery Room Air Blood Pressure Mean: 112 Departure Communication (Admissions) Patient states that she called Dr. Hernandez's office today and they advised her to come here to the emergency room and possibly be transferred to [place]. We did attempt MRI but patient refused due to the pain with laying flat. [id number] with Dr. Hernandez from [facility]. She states that they did not advise the patient to come here to be transferred there. They are trying to move her surgery up from September 27 to next week but they're still fighting insurance for this. Given that she has equal strength of upper and lower extremities she would like to tweak the pain medication at home, increasing her pain medication and continue with the current plan. Impression Primary Impression: Cervical spine disease Disposition: XFER SHT-TRM HOSP Condition: Stable Departure-Patient Inst. Decision time for Depature: 13:13 Referrals: [facility] (PCP/Family) Primary Care Physician Patient Instructions: Posterior Cervical Fusion (DC) Add. Discharge Instructions: 1. add the pain medication to your pain medication regimen 2. Follow-up with your regular doctor 3. Return to ER for any concerns. All discharge instructions reviewed with patient and/or family. Voiced understanding. Scripts Oxycodone HCl (Oxycodone HCl) 5 Mg Tablet 5 MG PO Q4H PRN for PAIN-SEVERE TO BREAKTHROUGH, #30 TAB Prov: TRAVIS CANDELARIA APRN 09/15/18 TRAVIS CANDELARIA APRN Sep 15, 2018 12:22
[2018-09-15] MEDS ORDERED: morphine INJ 10 MG/ML 1ML (SYR OR VIAL) IVP ONE (12:30)
[2018-09-15] MEDS ORDERED: OXYC-529 PO (13:23)
[2018-09-15 13:54] VITALS: BP 166/80
== END 2018-09-15 13:54 | disposition short-term general hospital (02) ==
LOC: EDUNIT# 10:51 → ER 10:52
DX: M48.8X2 Other specified spondylopathies, cervical region (principal); I25.2 Old myocardial infarction; E78.00 Pure hypercholesterolemia, unspecified; G51.0 Bell's palsy; K21.9 Gastro-esophageal reflux disease without esophagitis; E11.9 Type 2 diabetes mellitus without complications; F41.9 Anxiety disorder, unspecified; F32.9 Major depressive disorder, single episode, unspecified; Z85.528 Personal history of other malignant neoplasm of kidney; Z87.19 Personal history of other diseases of the digestive system; Z87.442 Personal history of urinary calculi; Z88.4 Allergy status to anesthetic agent; Z88.8 Allergy status to other drugs, medicaments and biological substances; Z88.5 Allergy status to narcotic agent; Z88.1 Allergy status to other antibiotic agents; Z79.82 Long term (current) use of aspirin; Z79.52 Long term (current) use of systemic steroids; Z87.891 Personal history of nicotine dependence; Z98.890 Other specified postprocedural states; Z98.51 Tubal ligation status; Z90.722 Acquired absence of ovaries, bilateral; Z95.9 Presence of cardiac and vascular implant and graft, unspecified
CPT/HCPCS: 99283

== ENCOUNTER → 2018-11-04 | Outpatient (CLI) | payer MEDICAID ==
[~2018-11-04] MED LIST changes: +OXYC-529 PO
--- NOTE | 2018-11-04 17:10 | Diagnostic Imaging Report ---
INDICATION: Low back pain. Lumbar spine. FINDINGS: AP and lateral views of the lumbar spine shows normal vertebral body heights and alignment. There is advanced degenerative disc changes at L5-S1. There is also disc space narrowing at L2-3 with sclerotic changes of the opposing vertebral body endplates. There is mild spondylosis with osteophytes forming anteriorly throughout the thoracic and lumbar spine. IMPRESSION: Advanced degenerative disc changes at L2-3 and L5-S1. No compression fracture or malalignment is seen. Dictated by: Dictated on workstation # [id number]
--- NOTE | 2018-11-04 17:50 | Diagnostic Imaging Report ---
INDICATION: Tailbone pain. EXAMINATION: AP and lateral views of the sacrum were obtained. FINDINGS: There is no fracture or dislocation. There are advanced degenerative disc changes at L5-S1. IMPRESSION: Advanced degenerative disc changes at L5-S1. Sacrum appears to be grossly normal. Dictated by: Dictated on workstation # [id number]
== END ==
LOC: RAD 15:34
PROVIDERS: ATTEND Nurse Practitioner Family
DX: M51.37 Other intervertebral disc degeneration, lumbosacral region (principal); M43.16 Spondylolisthesis, lumbar region
CPT/HCPCS: 72100; 72220

== ENCOUNTER → 2018-11-22 | Outpatient (CLI) | payer MEDICAID ==
--- NOTE | 2018-11-22 17:32 | Diagnostic Imaging Report ---
INDICATION: Chronic pain. TIME OF EXAM: 12:56 p.m. FINDINGS: Frontal and lateral views of the sacrum and coccyx were obtained. Sacral arcuate lines are intact. SI joints are nonwidened. Sacrococcygeal alignment appears normal. No fracture is seen. IMPRESSION: No acute abnormality is detected. Dictated by: Dictated on workstation # [id number]
== END ==
LOC: RAD 12:41
PROVIDERS: ATTEND Nurse Practitioner Family
DX: G89.4 Chronic pain syndrome (principal); M53.3 Sacrococcygeal disorders, not elsewhere classified
CPT/HCPCS: 72220

== ENCOUNTER → 2018-12-12 | Outpatient (CLI) | payer MEDICAID ==
--- NOTE | 2018-12-12 11:34 | Diagnostic Imaging Report ---
INDICATION: Neck pain. FINDINGS: There are stable postsurgical changes of an anterior cervical disc fusion from C4 through C7 with plate and screws. Bone graft material is seen within the disc space. There is straightening of normal cervical lordosis. Vertebral body heights are well maintained. The prevertebral soft tissues are within normal limits. IMPRESSION: Stable postsurgical changes of an anterior cervical disc fusion from C4 through C7. Dictated by: Dictated on workstation # [id number]
== END ==
LOC: RAD 09:34
PROVIDERS: ATTEND Physician Assistant
DX: Z48.89 Encounter for other specified surgical aftercare (principal); M54.2 Cervicalgia; Z98.1 Arthrodesis status
CPT/HCPCS: 72040

== ENCOUNTER → 2019-01-16 | Outpatient (CLI) | payer MEDICAID ==
--- NOTE | 2019-01-16 11:42 | Diagnostic Imaging Report ---
INDICATION: Routine screening. Comparison is made with prior mammogram from 11/03/2017 and 06/18/2016. 2-D and 3-D bilateral screening mammography was performed with a Computer Aided Detection (CAD) system. FINDINGS: Scattered fibroglandular densities are identified bilaterally. The parenchymal pattern appears stable. Nodular density inner left breast anterior depth appears stable. No new mass or malignant appearing microcalcifications are seen. Axillae are unremarkable. IMPRESSION: No mammographic features suspicious for malignancy are identified. ACR BI-RADS Category 2: Benign findings. Result letter will be mailed to the patient. Note: At least 10% of breast cancer is not imaged by mammography. Dictated by: Dictated on workstation # [id number]
== END ==
LOC: RAD 08:52
PROVIDERS: ATTEND Nurse Practitioner Family
DX: Z12.31 Encounter for screening mammogram for malignant neoplasm of breast (principal)
CPT/HCPCS: 77067

== ENCOUNTER 2019-04-14 13:21 | Outpatient (RCR) | payer MEDICAID | END 2019-04-14 14:27 | disposition home or self-care (01) | PROVIDERS: ATTEND Nurse Practitioner Family | DX: M54.42 Lumbago with sciatica, left side (principal); M54.41 Lumbago with sciatica, right side; M48.02 Spinal stenosis, cervical region ==

== ENCOUNTER → 2019-05-31 | Outpatient (CLI) | payer MEDICAID ==
[~2019-05-31] MED LIST changes: -TIZA4TAB3 PO; +TIZA4TAB4 PO
--- NOTE | 2019-05-31 14:14 | Diagnostic Imaging Report ---
Indication: Left breast pain. Correlation is made with diagnostic mammogram earlier the same day. Sonographic interrogation of the area of pain in the left axilla was performed. No sonographic abnormality is seen. No solid or cystic mass is detected. Impression: BI-RADS category 1. No sonographic abnormality is detected. ACR BI-RADS Category 1: Negative. Result letter will be mailed to the patient. Note: At least 10% of breast cancer is not imaged by mammography. Dictated by: Dictated on workstation # [id number]
--- NOTE | 2019-05-31 16:10 | Diagnostic Imaging Report ---
Indication: Left breast pain. Correlation is made with prior mammogram 01/16/2019 and 11/03/2017. Unilateral left 2-D and 3-D diagnostic mammography was performed. Scattered fibroglandular density in the left breast is noted. Parenchymal pattern is stable. No mass or malignant-appearing microcalcifications are seen. At the area of pain in the left axilla at the BB marker, no underlying abnormality is seen. Impression: BI-RADS 0 No mammographic features suspicious for malignancy are identified. Even so, sonographic interrogation of the area of pain in the left breast is recommended and will be performed today. ACR BI-RADS Category 0: Incomplete. (Needs additional imaging evaluation). Result letter will be mailed to the patient. Note: At least 10% of breast cancer is not imaged by mammography. Dictated by: Dictated on workstation # [id number]
== END ==
LOC: RAD 12:54
PROVIDERS: ATTEND Nurse Practitioner Primary Care
DX: N64.4 Mastodynia (principal)
CPT/HCPCS: 76642

== ENCOUNTER → 2019-08-31 | Outpatient (CLI) | payer MEDICAID ==
--- NOTE | 2019-08-31 11:41 | Diagnostic Imaging Report ---
PROCEDURE: MRI lumbar spine. TECHNIQUE: Multiplanar, multisequence MRI of the lumbar spine was performed without contrast. INDICATION: Low back pain, right leg pain. FINDINGS: The previous MRI lumbar spine exam performed on 03/01/2009 noted mild diffuse lumbar spondylosis. There was no evidence for a high-grade central stenosis or neuroforaminal narrowing on the previous exam. The T2 sagittal images of this study show that in the interval since the prior exam, the degenerative disc and bony disease at the L2-L3 level has worsened. Specifically, there is greater narrowing of the disc space at this level and there is now abnormal signal involving the opposing endplates of L2 and L3. In addition, a mild broad-based disc bulge centrally has developed at the L2-L3 level. The disc compresses the ventral aspect of the thecal sac and narrows the AP diameter to approximately 8.5 mm. There is also now narrowing of the neuroforamen bilaterally at this level, particularly on the right. There is also a disc bulge centrally now at the L3-L4 level. The AP diameter of the thecal sac is narrowed to 8.4 mm. There does not seem to be any significant neuroforaminal narrowing, however. At the L4-L5 level, there is a disc bulge centrally but there is no evidence for central stenosis. The AP diameter measures 11.7 mm. There is no neuroforaminal narrowing on the right but there is now moderate narrowing of the neuroforamen on the left at L4-L5. This does represent a change from the previous study. There is a lateral disc bulge to the right at L5-S1. A portion of the disc material has migrated caudally along the posterior aspect of the S1 vertebra on the right. There is no evidence for central stenosis at this level but the disc material is in close proximity to the origin of the exiting right nerve root. There is no hemodynamically significant stenosis on the left at L5-S1. There do appear to be conjoined nerve roots on the left at this level, however. There is no evidence for spinal stenosis or nerve root encroachment at L1-L2. There is no abnormal signal arising from the osseous structures to indicate bone edema or fracture. There is no sign of a cord lesion. There is no evidence for paraspinal mass. The previous CT abdomen/pelvis exam of 04/21/2018 did note a small mass associated with the left kidney. This was felt to be neoplastic in nature. The left kidney is not well visualized on this study and may be surgically absent. Correlation with the patient's surgical history would be recommended. IMPRESSION: 1. In the interval since the previous exam, the degenerative disc, ligamentous, and bony disease involving the lower lumbar spine has progressed. There is now spinal stenosis at L2-L3 and L3-L4. There is also moderate narrowing of the neuroforamen on the left at L4-L5. In addition, there is a disc protrusion to the right at L5-S1. This does not produce central stenosis but the disc material is in close proximity to the exiting right nerve root. 2. There is no acute bony abnormality identified and there is no sign of a cord lesion. 3. The left kidney is not well visualized on this study and may be surgically absent. Correlation with the patient's surgical history would be recommended. Dictated by: Dictated on workstation # [id number]
== END ==
LOC: RAD 09:48
PROVIDERS: ATTEND Nurse Practitioner Family
DX: M48.061 Spinal stenosis, lumbar region without neurogenic claudication (principal); M47.26 Other spondylosis with radiculopathy, lumbar region; M51.17 Intervertebral disc disorders with radiculopathy, lumbosacral region
CPT/HCPCS: 72148

== ENCOUNTER 2019-09-07 03:34 | Emergency (ER) | payer MEDICAID ==
[~2019-09-07] VITALS: Ht 172 cm; Wt 95.0 kg
[2019-09-07] MEDS ORDERED: LACTATED RINGERS 1,000 ML IV STA (03:47)
[2019-09-07] MEDS ORDERED: fentaNYL INJECTION 100 MCG/2 ML AMP IVP STA (03:47)
[2019-09-07 03:51] LABS: BASOPHILS # (AUTO) 0.1 10^3/uL (0.0-0.1); BASOPHILS % (AUTO) 1 % (0-10); EOSINOPHILS # (AUTO) 0.6 10^3/uL (0.0-0.3); EOSINOPHILS % (AUTO) 5 % (0-10); HEMATOCRIT 45 % (35-52); HEMOGLOBIN 15.3 G/DL (11.5-16.0); LYMPHOCYTES # (AUTO) 3.4 X 10^3 (1.0-4.0); LYMPHOCYTES % (AUTO) 32 % (12-44); MEAN CORPUSCULAR HEMOGLOBIN 31 PG (25-34); MEAN CORPUSCULAR HGB CONC 34 G/DL (32-36); MEAN CORPUSCULAR VOLUME 93 FL (80-99); MEAN PLATELET VOLUME 9.9 FL (7.4-10.4); MONOCYTES # (AUTO) 0.9 X 10^3 (0.0-1.0); MONOCYTES % (AUTO) 8 % (0-12); NEUTROPHILS # (AUTO) 5.7 X 10^3 (1.8-7.8); NEUTROPHILS % (AUTO) 54 % (42-75); PLATELET COUNT 174 10^3/uL (130-400); RED CELL DISTRIBUTION WIDTH 13.3 % (10.0-14.5); WHITE BLOOD COUNT 10.6 10^3/uL (4.3-11.0)
[2019-09-07] MEDS ORDERED: ONDANSETRON 4 MG/2 ML (SDV) Z0FRAN IVP ONE (04:00)
[2019-09-07 04:02] LABS: BILIRUBIN,URINE NEGATIVE (NEGATIVE); CLARITY,URINE CLEAR; COLOR,URINE YELLOW; GLUCOSE, URINE (UA) NEGATIVE (NEGATIVE); KETONES,URINE NEGATIVE (NEGATIVE); LEUKOCYTE ESTERASE ,URINE NEGATIVE (NEGATIVE); NITRITE,URINE NEGATIVE (NEGATIVE); PROTEIN,URINE NEGATIVE (NEGATIVE)
--- NOTE | 2019-09-07 04:07 | ED General ---
General Chief Complaint: Back Problems Stated Complaint: PAIN IN RT SIDE Nursing Triage Note: Pt ambulates to Rm 9 with c/o right flank pain that woke her up during her sleep approx 0200 this am. Pt had left kidney removed Sep 2018. Pt reports nausea, no vomiting. Pt denies any fever/chills. Pt denies any urinary or bowel changes as well. Nursing Sepsis Screen: No Definite Risk Source of Information: Patient Exam Limitations: No Limitations History of Present Illness Date Seen by Provider: Sep 07, 2019 Time Seen by Provider: 03:39 Initial Comments Here with complaint of right flank pain that woke her up from sleep at about 2 AM. Does have history of left nephrectomy after having renal cell carcinoma. Denies dysuria or diarrhea. Has been feeling well over the past couple of days. Denies fever or chills. Pain is moderate in intensity and seems to be centered on the right flank. Does not hurt to touch but does hurt to move. Timing/Duration: 1-3 Hours Severity: Moderate, Severe Modifying Factors: worse with Movement Associated Systoms: No Chest Pain, No Cough, No Fever/Chills; Nausea/Vomiting; No Shortness of Air, No Weakness Allergies and Home Medications Allergies Coded Allergies: ketorolac (Verified Allergy, Intermediate, 08/27/17) doxycycline (Unverified Allergy, Unknown, 08/16/17) hydrocodone (Unverified Allergy, Unknown, 08/16/17) piroxicam (Unverified Allergy, Unknown, 08/16/17) Home Medications Aspirin 81 Mg Tab.chew, 81 MG PO DAILY, (Reported) Atorvastatin Calcium 10 Mg Tablet, 10 MG PO HS, (Reported) Lisinopril 20 Mg Tablet, 20 MG PO BID, (Reported) Metoprolol Tartrate 100 Mg Tablet, 100 MG PO BID, (Reported) [place]ale-3/Dha/Epa/Fish Oil 1 Each Capsule, 1 EACH PO BID, (Reported) Oxycodone HCl 5 Mg Tablet, 5 MG PO Q4H PRN for PAIN-SEVERE TO BREAKTHROUGH Prescribed by: TRAVIS CANDELARIA on 09/15/18 1323 Oxycodone HCl/Acetaminophen 1 Each Tablet, 1 TAB PO TID PRN for PAIN-MODERATE, (Reported) Pantoprazole Sodium 40 Mg Tablet.dr, 40 MG PO DAILY, (Reported) Pioglitazone HCl/Metformin HCl 1 Each Tablet, 0.5 TAB PO BID, (Reported) Prednisone 20 Mg Tab, 40 MG PO DAILY Prescribed by: KADIE EDWARDS on 05/01/182049 Prednisone 20 Mg Tab, 40 MG PO DAILY Prescribed by: KADIE EDWARDS on 09/07/19 0451 Sitagliptin Phosphate 100 Mg Tablet, 100 MG PO DAILY, (Reported) Sucralfate 1 Gm Tablet, 1 GM PO ACHS, (Reported) Tramadol HCl 50 Mg Tablet, 50 MG PO 4 TIMES A DAY Prescribed by: RICHIE BENTLEY on 08/27/17 0937 Patient Home Medication List Home Medication List Reviewed: Yes Review of Systems Review of Systems Constitutional: see HPI; No chills, No fever EENTM: no symptoms reported Respiratory: no symptoms reported Cardiovascular: no symptoms reported Gastrointestinal: see HPI; No diarrhea; nausea; No vomiting; other (right flank pain that is moderate aching and persistent and worse with movement) Genitourinary: No dysuria, No frequency; pain : No Musculoskeletal: see HPI, back pain; No muscle stiffness Skin: no symptoms reported Psychiatric/Neurological: No Symptoms Reported All Other Systems Reviewed Negative Unless Noted: Yes Past Obqzxvc-Yuiyjn-Zxneod Hx Past Med/Social Hx: Reviewed Nursing Past Med/Soc Hx Patient Social History Alcohol Use: Denies Use Recreational Drug Use: No Smoking Status: Current Everyday Smoker Type Used: Cigarettes Former Smoker, Quit: Aug 16, 1996 Recent Foreign Travel: No Contact w/Someone Who Travel: No Recent Infectious Disease Expo: No Recent Hopitalizations: No Physical Abuse: No Sexual Abuse: No Mistreated: No Fear: No Immunizations Up To Date Tetanus Booster (TDap): Unknown Date of Pneumonia Vaccine: May 18, 2012 Seasonal Allergies Seasonal Allergies: Yes (MILD) Past Medical History Surgeries: Yes (LT SHOULDER x2, LT OOPHORECTOMY, BILAT CTR, RT KNEE SCOPE x2, Lt kidney rem) Section, Gallbladder, Tubal Ligation Respiratory: Yes ("NODULES IN MY LUNGS") Cardiac: Yes (HEART CATH-NO STENTS, [place] x3) Heart Attack, High Cholesterol, Irregular Heartbeat Neurological: Yes (LOZADA'S PALSY LEFT SIDE OF FACE x2) Reproductive Disorders: No [employer]ION [employer]LY[employer] History: Menopausal Sexually Transmitted Disease: No HIV/AIDS: No Genitourinary: Yes (left kidney removal) Kidney Stones Gastrointestinal: Yes Colitis, Gastroesophageal Reflux, Chronic Diarrhea, Ulcer Musculoskeletal: Yes Degenerate Disk Disease, Arthritis, Chronic Back Pain Endocrine: Yes Diabetes, Non-Insulin dep Loss of Vision: Bilateral Hearing Impairment: Denies Cancer: Yes Kidney What Type of Treatment Did You: Surgical Intervention Psychosocial: Yes (MILD-RELATED TO LOSS OF ) Anxiety, Depression Integumentary: No Blood Disorders: No Adverse Reaction/Blood Tranf: No Family Medical History Reviewed Nursing Family Hx No Pertinent Family Hx Physical Exam Vital Signs Vital Signs - First Documented 09/07/19 03:40 Temp 36.2 Pulse 62 Resp 19 B/P (MAP) 189/99 (129) Pulse Ox 99 O2 Delivery Room Air Capillary Refill : Less Than 3 Seconds Height, Weight, BMI Height: 5'8.00" Weight: 205lbs. 0.0oz. 92.052516vl; 32.00 BMI Method:Stated General Appearance: No Apparent Distress, WD/WN HEENT: PERRL/EOMI, Pharynx Normal Neck: Non Tender, Supple Respiratory: Lungs Clear, Normal Breath Sounds Cardiovascular: Regular Rate, Rhythm, No Murmur Gastrointestinal: Non Tender, Soft Back: Normal Inspection, No Vertebral Tenderness, CVA Tenderness (R) Extremity: Normal Range of Motion, Non Tender Neurologic/Psychiatric: Alert, Oriented x3 Skin: Normal Color, Warm/Dry Progress/Results/Core Measures Suspected Sepsis Recent Fever Within 48 Hours: No Infection Criteria Present: None New/Unexplained Altered Menta: No Sepsis Screen: No Definite Risk SIRS Temperature: Pulse: 62 Respiratory Rate: 19 Laboratory Tests 09/07/19 03:45: White Blood Count 10.6 Blood Pressure 189 /99 Mean: 129 Laboratory Tests 09/07/19 03:45: Creatinine 0.83, Platelet Count 174, Total Bilirubin 0.3 Results/Orders Lab Results Laboratory Tests Test 09/07/19 03:45 09/07/19 03:53 Range/Units White Blood Count 10.6 4.3-11.0 10^3/uL Red Blood Count 4.91 4.35-5.85 10^6/uL Hemoglobin 15.3 11.5-16.0 G/DL Hematocrit 45 35-52 % Mean Corpuscular Volume 93 80-99 FL Mean Corpuscular Hemoglobin 31 25-34 PG Mean Corpuscular Hemoglobin Concent 34 32-36 G/DL Red Cell Distribution Width 13.3 10.0-14.5 % Platelet Count 174 130-400 10^3/uL Mean Platelet Volume 9.9 7.4-10.4 FL Neutrophils (%) (Auto) 54 42-75 % Lymphocytes (%) (Auto) 32 12-44 % Monocytes (%) (Auto) 8 0-12 % Eosinophils (%) (Auto) 5 0-10 % Basophils (%) (Auto) 1 0-10 % Neutrophils # (Auto) 5.7 1.8-7.8 X 10^3 Lymphocytes # (Auto) 3.4 1.0-4.0 X 10^3 Monocytes # (Auto) 0.9 0.0-1.0 X 10^3 Eosinophils # (Auto) 0.6 H 0.0-0.3 10^3/uL Basophils # (Auto) 0.1 0.0-0.1 10^3/uL Sodium Level 140 135-145 MMOL/L Potassium Level 4.2 3.6-5.0 MMOL/L Chloride Level 104 98-107 MMOL/L Carbon Dioxide Level 24 21-32 MMOL/L Anion Gap 12 5-14 MMOL/L Blood Urea Nitrogen 25 H 7-18 MG/DL Creatinine 0.83 0.60-1.30 MG/DL Estimat Glomerular Filtration Rate > 60 BUN/Creatinine Ratio 30 Glucose Level 91 70-105 MG/DL Calcium Level 9.8 8.5-10.1 MG/DL Corrected Calcium 9.6 8.5-10.1 MG/DL Total Bilirubin 0.3 0.1-1.0 MG/DL Aspartate Amino Transf (AST/SGOT) 22 5-34 U/L Alanine Aminotransferase (ALT/SGPT) 20 0-55 U/L Alkaline Phosphatase 118 40-136 U/L C-Reactive Protein High Sensitivity 0.48 0.00-0.50 MG/DL Total Protein 7.6 6.4-8.2 GM/DL Albumin 4.2 3.2-4.5 GM/DL Urine Color YELLOW Urine Clarity CLEAR Urine pH 6.0 5-9 Urine Specific [place] 1.020 1.016-1.022 Urine Protein NEGATIVE NEGATIVE Urine Glucose (UA) NEGATIVE NEGATIVE Urine Ketones NEGATIVE NEGATIVE Urine Nitrite NEGATIVE NEGATIVE Urine Bilirubin NEGATIVE NEGATIVE Urine Urobilinogen 0.2 < = 1.0 MG/DL Urine Leukocyte Esterase NEGATIVE NEGATIVE Urine RBC (Auto) TRACE-I NEGATIVE Urine RBC 0-2 /HPF Urine WBC 0-2 /HPF Urine Squamous Epithelial Cells 10-25 H /HPF Urine Crystals NONE /LPF Urine Bacteria TRACE /HPF Urine Casts NONE /LPF Urine Mucus SMALL H /LPF Urine Culture Indicated NO My Orders Orders - KADIE EDWARDS MD Cbc With Automated Diff (09/07/19 03:47) Comprehensive Metabolic Panel (09/07/19 03:47) Hs C Reactive Protein (09/07/19 03:47) Ua Culture If Indicated (09/07/19 03:47) Ondansetron Injection (Zofran Injectio (09/07/19 04:00) Lactated Ringers (Lr 1000 Ml Iv Solution (09/07/19 03:47) Ed Iv/Invasive Line Start (09/07/19 03:47) Fentanyl Injection (Sublimaze Injection (09/07/19 03:47) Prednisone Tablet (Deltasone Tablet) (09/07/19 04:30) Medications Given in ED Current Medications Medications Dose Ordered Sig/Liliane Route Start Time Stop Time Status Last Admin Dose Admin Ondansetron HCl 4 mg ONCE ONCE IVP 09/07/19 04:00 09/07/19 04:01 DC 09/07/19 03:54 4 MG Prednisone 40 mg ONCE ONCE PO 09/07/19 04:30 09/07/19 04:32 DC 09/07/19 04:35 40 MG Vital Signs/I&O 09/07/19 03:40 Temp 36.2 Pulse 62 Resp 19 B/P (MAP) 189/99 (129) Pulse Ox 99 O2 Delivery Room Air Capillary Refill : Less Than 3 Seconds Blood Pressure Mean: 129 POS Progress Note : Progress Note Seen and evaluated. IV, labs, UA, LR 1 L bolus, Zofran 4 mg IV and fentanyl 50 g IV ordered. Monitor patient. 0425: Prednisone 40 mg by mouth ordered. Lab and UA does not elucidate any significant findings currently. No indication of infection currently. This does seem to be more musculoskeletal related. Patient does admit to cutting firewood recently. She states that she always does that and usually has no problems. Recent MRI does note fairly significant degeneration of the lumbar spine as well as neuroforaminal narrowing on the right. This may be more of an inflammatory problem, which is why prednisone was given. She would like to just try the prednisone and she will continue her pain medicine at home. If this isn't better then we will advance to imaging studies as needed. Urination agrees with that plan. Monitor patient. She is doing better after pain medicines earlier. 0530: Overall doing better than arrival. Fentanyl has worn off and patient would like to go home. She does have pain medicines at home. We will continue that and she will initiate outpatient prednisone. Di scharged home with return precautions. Patient verbalize understanding instructions and agreement with plan. Departure Impression Primary Impression: Lumbar radiculopathy Additional Impression: Back strain Qualified Codes: S39.012A - Strain of muscle, fascia and tendon of lower back, initial encounter Disposition: HOME, SELF-CARE Condition: Against Medical Advice Departure-Patient Inst. Decision time for Depature: 04:49 Referrals: ROSA SNELL APRN (PCP) Primary Care Physician [facility] (Family) Primary Care Physician Patient Instructions: Lumbar Muscle Strain (DC), Radiculopathy (DC) Add. Discharge Instructions: All discharge instructions reviewed with patient and/or family. Voiced understanding. Continue home pain medicine as previously prescribed. Take other medications as directed. Return for worse pain, weakness, numbness between your legs, difficulty with walking or going to the bathroom or other concerns as needed. Scripts Prednisone (Prednisone) 20 Mg Tab 40 MG PO DAILY, #12 TAB 0 Refills Prov: KADIE EDWARDS MD 09/07/19 KADIE EDWARDS MD Sep 07, 2019 04:06 POS
[2019-09-07 04:09] LABS: ALANINE AMINOTRANSFERASE 20 U/L (0-55); ALBUMIN 4.2 GM/DL (3.2-4.5); ALKALINE PHOSPHATASE 118 U/L (40-136); BILIRUBIN,TOTAL 0.3 MG/DL (0.1-1.0); BUN/CREATININE RATIO 30; CALCIUM 9.8 MG/DL (8.5-10.1); CARBON DIOXIDE 24 MMOL/L (21-32); CHLORIDE 104 MMOL/L (98-107); CREATININE SERUM 0.83 MG/DL (0.60-1.30); GFR ESTIMATED > 60; GLUCOSE 91 MG/DL (70-105); POTASSIUM 4.2 MMOL/L (3.6-5.0); SODIUM 140 MMOL/L (135-145); TOTAL PROTEIN 7.6 GM/DL (6.4-8.2)
[2019-09-07 04:09] LABS: BACTERIA,URINE TRACE /HPF; RBC,URINE 0-2 /HPF; WBC,URINE 0-2 /HPF
[2019-09-07] MEDS ORDERED: predniSONE 20 MG TAB PO ONE (04:30)
[2019-09-07] MEDS ORDERED: PRD20T PO (04:51)
[2019-09-07 05:33] VITALS: BP 156/87
== END 2019-09-07 05:36 | disposition home or self-care (01) ==
LOC: EDUNIT# 03:34 → ER 03:36
DX: S39.012A Strain of muscle, fascia and tendon of lower back, initial encounter (principal); M54.16 Radiculopathy, lumbar region; E78.00 Pure hypercholesterolemia, unspecified; K21.9 Gastro-esophageal reflux disease without esophagitis; E11.9 Type 2 diabetes mellitus without complications; F41.9 Anxiety disorder, unspecified; F32.9 Major depressive disorder, single episode, unspecified; F17.210 Nicotine dependence, cigarettes, uncomplicated; Z87.442 Personal history of urinary calculi; Z98.51 Tubal ligation status; Z90.5 Acquired absence of kidney; Z85.528 Personal history of other malignant neoplasm of kidney; Z88.5 Allergy status to narcotic agent; Z88.1 Allergy status to other antibiotic agents; Z88.6 Allergy status to analgesic agent; Z79.82 Long term (current) use of aspirin; X50.1XXA Overexertion from prolonged static or awkward postures, initial encounter
CPT/HCPCS: 36415; 80053; 81000; 85025; 86141

== ENCOUNTER 2019-11-13 14:21 | Outpatient (RCR) | payer MEDICAID ==
[~2019-11-13 14:21] MED LIST changes: -TRAM50TA2 PO; +TRM50T PO
== END 2019-12-08 14:39 | disposition home or self-care (01) ==
PROVIDERS: ATTEND Neurological Surgery
DX: M54.16 Radiculopathy, lumbar region (principal)

== ENCOUNTER 2020-01-21 18:55 | Emergency (ER) | payer MEDICAID ==
[~2020-01-21] VITALS: Ht 177.8 cm; Wt 91.0 kg
[~2020-01-21 18:55] MED LIST changes: -OXYC-529 PO; +OXYC5TAB96 PO
--- OUTSIDE RECORDS SUMMARY | 2020-01-21 19:01 | XMS REPORT | Clinical Summary ---
Author Author [facility] Organization [facility] Address Unknown Phone Unavailable Care Team Providers Care Admissions Dean Name Role Phone Александр Rincon APRN PCP Source Comments Some departments are not documenting in the electronic medical record. 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 Piroxicam SEE COMMENTS Low 06/06/2018 Hydrocodone HIVES, Medium 06/06/2018 SHORTNESS OF BREATH, ITCHING Couldn't walk, couldn't see straight Ketorolac MENTAL STATUS Medium 06/06/2018 CHANGES Medications End Date Status Medication Sig Dispensed Refills Start Date Active gabapentin (NEURONTIN) Take 300 mg 0 01 300 mg capsule by mouth at 8 bedtime daily. Active metoprolol tartrate Take 100 mg 0 (LOPRESSOR) 100 mg tablet by mouth twice daily. Active pioglitazone-metformin Take 0.5 0 (ACTOPLUS MET) 15-500 mg tablets by tablet mouth twice daily. Active sucralfate (CARAFATE) 1 Take 1 g by 0 gram tablet mouth four times daily as needed. Take on an empty stomach. Active aspirin EC 81 mg tablet Take 81 mg by 0 mouth at bedtime daily. Take with food. Active sertraline (ZOLOFT) 25 mg Take 25 mg by 0 tablet mouth daily. Active tiZANidine (ZANAFLEX) 4 Take 4 mg by 0 mg capsule mouth at bedtime daily. Active vitamins, multiple tablet Take 1 tablet 0 by mouth daily. Active dexlansoprazole (+) Take 60 mg by 0 (DEXILANT) 60 mg capsule mouth daily. Active fluticasone (FLONASE) 50 Apply 1 spray 0 mcg/actuation nasal spray to each nostril as directed daily. Shake bottle gently before using. Active atorvastatin (LIPITOR) 20 Take 40 mg by 0 mg tablet mouth at bedtime daily. Active Saxagliptin 5 mg tab Take 1 tablet 0 by mouth at bedtime daily. Active acetaminophen (TYLENOL) Take two 0 325 mg tablet tablets by 8 mouth every 6 hours as needed for Pain. Active oxyCODONE (ROXICODONE, Take one 30 tablet 0 OXY-IR) 5 mg tablet tablet to two 8 tablets by mouth every 6 hours as needed for severe pain. Active lisinopril (PRINIVIL; Take one 90 tablet 3 06/19 ZESTRIL) 20 mg tablet tablet by 8 mouth twice daily. Hold until follow up with PCP Active senna/docusate (SENNA-S) Take one 15 tablet 0 0 8.6/50 mg tablet tablet by 8 mouth daily. Active polyethylene glycol 3350 Take 527 g 3 0 (GLYCOLAX; MIRALAX) 17 seventeen g 8 gram/dose powder by mouth daily. Active Problems Problem Noted Date Left renal mass 11/15/2017 Overview: 09/27/17 MRI abdomen with and without contrast: Impression: A 2.5 cm enhancing mass is seen in the anterior aspect of the left kidney highly suggestive of a renal cell carci noma. A followup renal mass protocol CT is suggested for confirmati on. 09/29/17 CT abdomen/pelvis: Impressio n: Heterogeneous enhancing solid left renay l mass, 2.7 cm diameter strongly suggestive of renal cell carcinoma. Ad ditional renal cysts bilaterally are noted. There were no findings of regio nal or distant metastasis revealed at this exam. 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 05/21/15 PET/CT: Impression: There are mulitple lesions seen in the kidneys on prior CT scan, one of which is readily visable on this study approximately 2 cm exophytic right upper pole lesion which demonstrates no increased FDG uptake suggestive of benign eliology. 08/28/17 Lab: Creatinine: 0.66 GFR: >60 07/07/2018: Left lap nephrectomy (path: pT1a ccRCC) 01/30/19: CT chest/abd today with KRISTINA. C r 0.73 L ast Assessment & Plan: 64 year old female with left kidney laci or s/p left lap nephrectomy 07/07/2018 (path: pT1a ccRCC) here today for follow up. Patient is doing great with CT Chest/Abd with KRISTINA and no rmal Cr at 0.73. - RTC in [address] Abd w/wo, CXR, BMP Social History Date Tobacco Use Types Packs/Day Years Used Quit: 06/06/2016 Former Smoker Cigarettes 1 35 Smokeless Tobacco: Never Used Drinks/Week oz/Week Comments Alcohol Use No Sex Assigned at Date Recorded Not on file Industry Job Start Date Occupation Not on file Not on file Not on file Travel End Travel History Travel Start No recent travel history available. Last Filed Vital Signs Reading Time Taken Comments Vital Sign 155/84 01/30/2019 1:11 PM CDT Blood Pressure 68 01/30/2019 1:11 PM CDT Pulse 37.3 C (99.1 F) 01/30/2019 1:11 PM CDT JUST HAD A CUP O F COFFEE Temperature 16 01/30/2019 1:11 PM CDT Respiratory Rate 97% 01/30/2019 1:11 PM CDT Oxygen Saturation - - Inhaled Oxygen Concentration 93.2 kg (205 lb 6.4 oz) 01/30/2019 1:11 PM CDT Weight 172.7 cm (5' 7.99") 01/30/2019 1:11 PM CDT Height 31.24 01/30/2019 1:11 PM CDT Body Mass Index Plan of Treatment Health Maintenance Due Date Last Done Comments HEPATITIS C SCREENING 1955 DTAP/TDAP VACCINES (1 - 1966 Tdap) HIV SCREENING 1970 PHYSICAL (COMPREHENSIVE) 1973 EXAM BREAST CANCER SCREENING 1995 COLORECTAL CANCER 2005 SCREENING SHINGLES RECOMBINANT 2005 VACCINE (1 of 2) OSTEOPOROSIS 01/09/2020 SCREENING/MONITORING PNEUMONIA (PCV13/PPSV23) 01/09/2020 VACCINES (1 of 2 - PCV13) INFLUENZA VACCINE 05/18/2020 09/17/2005, 08/14/2004, 09/06/2003, Additional history exists Results Not on filefrom Last 3 Months Insurance Type Payer Benefit Subscriber ID Effective Phone Address Plan / Dates Group Medicaid [facility] MEDICAID [facility] xxxxxxxxxxx [id number] [employer] [place] Advance Directives 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
--- OUTSIDE RECORDS SUMMARY | 2020-01-21 19:02 | XMS REPORT ---
Author Author [facility]. Organization [employer] Address [address] [address] Care Team Providers Care Wares Sorter Name Role Phone WESTON ALCANTAR Unavailable [facility] Unavailable [phone] BLANCAS, EDIE Unavailable BLANCAS, EDIE Unavailable BLANCAS, EDIE Unavailable BLANCAS, EDIE Unavailable BLANCAS, EDIE Unavailable BLANCAS, EDIE Unavailable BLANCAS, EDIE Unavailable BLANCAS, EDIE Unavailable BLANCAS, EDIE Unavailable BLANCAS, EDIE Unavailable BLANCAS, EDIE Unavailable BLANCAS, EDIE Unavailable BLANCAS, EDIE Unavailable BLANCAS, EDIE Unavailable VELIA BORDEN Unavailable BLANCAS, EDIE Unavailable BLANCAS, EDIE Unavailable DASIA GARCIA Unavailable PATRICK ROBERT Unavailable BLANCAS, EDIE Unavailable BLANCAS, EDIE Unavailable FARAZ ELY Unavailable BLANCAS, EDIE Unavailable BLANCAS, EDIE Unavailable [facility] Unavailable BLANCAS, EDIE Unavailable BLANCAS, EDIE Unavailable BLANCAS, EDIE Unavailable BLANCAS, EDIE Unavailable BLANCAS, EDIE Unavailable BLANCAS, EDIE Unavailable BLANCAS, EDIE Unavailable BLANCAS, EDIE Unavailable BLANCAS, EDIE Unavailable BLANCAS, EDIE Unavailable BLANCAS, EDIE Unavailable ALIREZA ARRIOLA Unavailable BLANCAS, EDIE Unavailable BLANCAS, EDIE Unavailable BLANCAS, EDIE Unavailable VICENTA ROBERTISTIN Unavailable BLANCAS, EDIE Unavailable BLANCAS, EDIE Unavailable BLANCAS, EDIE Unavailable BLANCAS, EDIE Unavailable RJ PENA Unavailable BLANCAS, EDIE Unavailable PATRICK ROBERT Unavailable BLANCAS, EDIE Unavailable BLANCAS, EDIE Unavailable LINDEN MOISE FAC, DASIA FACGary CCDS Unavailable Unavailabl e BLANCAS, EDIE Unavailable FOREIGN HORAN Unavailable Unavailable BLANCAS, EDIE Unavailable MARGUERITE WAITE MD Unavailable Unavailable RICHIE BENTLEY MD Unavailable Unavailable BLANCAS, EDIE Unavailable RJ PENA Unavailable BUD BRIDGES Unavailable BLANCAS, EDIE Unavailable BLANCAS, EDIE Unavailable KHADIJAH CONDE Unavailable BLANCAS, EDIE Unavailable WESTON ALCANTAR MD Unavailable Unavailable DASIA GARCIA Unavailable BLANCAS, EDIE Unavailable PATRICK Ro Unavailable BLANCAS, EDIE Unavailable RJ PENA Unavailable SHAE MOISE, KADIE Torres Unavailable Unavailable BLANCASNADER YeeELE Unavailable BLANCAS, EDIE Unavailable zreynaCARENADER YeeELE Unavailable zzCAREMargie, EDIE Unavailable BLANCAS, EDIE Unavailable zzCAREY, EDIE Unavailable ALIS, ROSA Unavailable ALIS, ROSA Unavailable ALIS, ROSA Unavailable JUAN ANTONIO MALONENYA Unavailable ALIS, ROSA Unavailable ALIS, ROSA Unavailable ALIS, ROSA Unavailable MARGUERITE LE Unavailable Unavailable JASMINE, MISA-JEANIE Unavailable Unavailable JASMINE, MISA-JEANIE Unavailable Unavailable ALIS, ROSA D CAN PATCHER Unavailable Unavailable KERRY PETERS Unavailable Unavailable ALIS, ROSA D Unavailable Unavailable BROWN, WESTON Unavailable Unavailable BROWN, WESTON Unavailable Unavailable BROWN, WESTON Unavailable Unavailable YU, HERMNIIO Unavailable Unavailable YU, HERMINIO Unavailable Unavailable YU, HERMINIO Unavailable Unavailable ALIS, ROSA Unavailable ALIS, ROSA Unavailable ALIS, ROSA Unavailable ALIS, ROSA Unavailable ALIS, ROSA Unavailable YU, HERMINIO Unavailable Unavailable YU, HERMINIO Unavailable Unavailable YU, HERMINIO Unavailable Unavailable BROWN, WESTON Unavailable Unavailable BROWN, WESTON Unavailable Unavailable BROWN, WESTON Unavailable Unavailable ARLIN PRICE CAN PATCHER Unavailable Unavailable ALIS, ROSA D CAN PATCHER PCP SHAE MOISE, KADIE Torres Unavailable Unavailable MODE MOISE, SARTHAK Gerard Unavailable Unavailable ALIS, ROSA Unavailable Unavailable Unavailable Allergies Normalized Allergy Reported Date of Reaction(s) Care Provider Facility Allergy Type classification allergen Allergy Onset Drug Allergy Anti-Epileptic gabapentin 01-03-2019 - [facility] Agents Translations: [address] [ Gabapentin] of [facility] ([address]182) Drug Allergy Methocarbamol methocarbamol OTHER, MARGUERITE DELIAARASELI Nuno Not Available (11 sources.) MODERATE (72957) Medications Current Medications Medication Ingredient Drug Dose Dates Status Sig Sig Care Class(es) (Normalized) (Original) Provid er no Accu-Chek no 02-19-20 Active no Accu-Chek no information Soft Touch information 18 information Soft To uch name (14 Device - Device - as (no sources.) directed 8h phone) February, Active 02-18-2018 Active no Accu-Kaila no name inform k Soft (no ation Touch phone) Device - as directed 8h February, 30 days Active no Accu-Chek no 02-19-20 Active no Accu-Chek no information Soft Touch information 18 information Soft To uch name (12 Lancets - Lancets - as (no sources.) Translation directed 8h phone) s: [ February, Accu-Chek 30 days Soft Touch Active Lancets -, Accu-Chek Soft Touch Lancets -] amoxicillin amoxicillin Penicillin- 875 mg 04-09-20 Active no Amoxicillin no 875 mg oral Translation class 18 - information 875 MG name tablet (3 s: [ Antibacteri 04-19-20 Orally every (no sources.) Amoxicillin al 18 12 hrs 1 phone) 500 mg, tablet 12h Amoxicillin Mar, 875 MG Oral 3 Apr, 2018 Tablet, 10 day(s) Amoxicillin Active 875 MG] 500 mg 01-21-2018 Active no Amoxicil no name - inform rahul 500 (no 01-31-2018 ation mg phone) Orally every 8 hrs 1 capsule 8h Jan, Jan, 10 day(s) Active no Blood no 02-19-20 Active no Blood no information Glucose information 18 information Glucose T est name (12 Test Strip Strip - In (no sources.) - Vitro 3 phone) times a day as directed 8h February, Active 02-18-2018 Active no Blood no name inform Glucose (no ation Test phone) Strip - In Vitro 3 times a day as directed 8h February, 30 days Active no Centrum no Active no Centrum no information Silver information information Silver name (12 50+Women - 50+Women - (no sources.) Translation Active phone) s: [ Centrum Silver 50+Women -, Centrum Silver 50+Women -] no Centrum no Active no Centrum no information Silver information information Silver name (1 source.) 50+Women - 50+Women - (no Translation Active phone) s: [ Centrum Silver 50+Women -] ciprofloxac ciprofloxac Quinolone 500 mg 05-20-20 Active no Cipro 500 MG no in 500 mg in Antimicrobi 18 - information Orally ever y name oral tablet Translation al 05-30-20 12 hrs 1 (no (2 s: [ Cipro 18 tablet 12h phone) sources.) 500 MG] May, May, 10 day(s) Active nitrofurant nitrofurant no 100 mg Active no Macrobid 100 no oin, oin information information MG Orally name macrocrysta Translation every 12 hrs (no ls 25 mg / s: [ 1 capsule phone) nitrofurant Macrobid with food oin, 100 MG] 12h 5 days monohydrate Active 75 mg oral capsule (2 sources.) phenazopyri phenazopyri no 200 mg Active no Pyridium 200 no dine dine information information MG Orally name hydrochlori Translation Three times (no de 200 mg s: [ a day 1 phone) oral tablet Pyridium tablet after (3 200 MG] meals 8h 2 sources.) day(s) Active predniSONE predniSONE Corticoster 09-07-20 Complete no Predn isone no 20 mg oral Translation oid 19 - d information Discontin ued name tablet (11 s: [ 09-07-20 40 ORAL (no sources.) PredniSONE 19 - Daily 12 phone) 20 MG, 09-07-20August PredniSONE 2018 20 mg] 4:51am (One-Time) 20 mg 05-07-2018 Active no PredniSO no name - inform NE 20 mg (no 05-28-2018 ation Orally phone) Once a day 1 tablet 24h Apr, May, 21 days Active 05-01-2018 Completed no Predniso no name - inform ne (no 05-01-2018 ation Disconti phone) - nued 40 05-01-2018 ORAL Daily May 01, 2018 8:50pm (One-Edward e) 40 mg 05-01-2018 Completed take 2 Predniso Kadie tablet ne 20 Mg D s by Tab 40 Shae mouth Mg ORAL (no once Daily 12 phone) daily Tab 05/01/18 40 mg 03-07-2018 Active no PredniSO no name - inform NE 20 MG (no 03-12-2018 ation Orally phone) Once a day 2 tablet 24h February, February, 5 days Active 20 mg Active take 1 PredniSO no name tablet NE (Connor) (no by 20mg by phone) mouth oral twice route 2 daily times a day 1 tablet 12h Active Completed/Discontinued Medications Medication Ingredient Drug Dose Dates Status Sig Sig Care Class(es) (Normalized) (Original) Provid er no lansoprazol Proton Pump 11-16-19 Complete no Lansopra zole no information e Inhibitor 14 d information Discontin ued name (1 source.) 30 ORAL (no Bedtime phone) November 16, 2013 no MEPERIDINE no 06-29-20 no no no no information SYRINGE INJ information 17 - informat informati on information name (1 source.) 50 MG/CC 06-29-20 ion (no (DEMEROL 17 phone) SYRINGE) no Wyatt-3/Dha no no no Wyatt-3/Dha/ no information /Epa/Fish information informat information Epa/Fis h Oil name (2 Oil ion Active 1 (no sources.) ORAL Twice A phone) Day 08-16-2017 Completed no Wyatt-3/ no name inform Dha/Epa/ (no ation Fish Oil phone) Disconti nued 1000 ORAL Twice A Day August 16, 2017 oxyCODONE oxyCODONE Opioid 5 mg 09-15-20 Complete no Oxyco done no hydrochlori Agonist 18 - d information Hcl na me de 5 mg 09-15-20 Discontinued (no oral tablet 18 - 5 ORAL Every phone) (2 09-15-20 4HRS as sources.) 18 needed for Pain-Severe To Breakthrough September 15, 2018 1:23pm (One-Time) no Oxycodone no 05-18-20 Complete no Oxycodone no information Hcl/Acetami information 17 d information Hc l/Acetamin name (1 source.) franhen ophen (no Discontinued phone) 0.5 ORAL Three Times A Day as needed May 18, 2017 no Pioglitazon no 05-18-20 Complete no Pioglitazone no information e information 17 d information Hcl/Met formi name (1 source.) Hcl/Metform n Hcl (no in Hcl Discontinued phone) 0.5 ORAL Twice A Day May 18, 2017 Problems Active Problems Problem Normalized Date of Normalized Normalized Provider Fac ility Classification Problem(s) Problem Problem Problem Sta tus Onset/Resoluti Duration on Residual Acquired Episodic Active JULIO MALONE Community codes; [facility] [address] [facility] unclassified kidney of [facility] (20 sources.) Translations: [place] () [ - S/p nephrectomy Z90.5] Residual Acquired Episodic Active TRAVIS CANDELARIA Not Availab le codes; absence of () unclassified ovaries, (3 sources.) bilateral Residual Acquired Episodic Active RICHIE ODGERS Not Avail able codes; absence of , () unclassified ovaries, (2 sources.) unilateral Acute Acute Episodic Active [facility] bronchitis (5 bronchitis, [address] [facility] sources.) unspecified of [facility] Translations: [place] () [ - Acute bronchitis, unspecified organism J20.9] Urinary tract Acute cystitis Episodic Active [facility] infections (20 without [address] [facility] sources.) hematuria of [facility] Translations: [place] () [ - Acute cystitis without hematuria N30.00, - Acute cystitis with hematuria N30.01, - Acute cystitis with hematuria N30.01, - Acute cystitis without hematuria N30.00] Other upper Allergic Chronic Active [facility] ty respiratory rhinitis due [address] [facility] disease (20 to pollen of [facility] sources.) Translations: [place] () [ - Seasonal allergic rhinitis due to pollen J30.1, - Seasonal allergic rhinitis due to pollen J30.1] Allergic Allergy status Episodic Active KHURRAM QUINNCOMB , No t Available reactions (30 to other (78533) sources.) drugs, medicaments and biological substances status Translations: [ ALLERGY STATUS TO OTHER ANTIBIOTIC AGENT, ALLERGY STATUS TO NARCOTIC AGENT STATUS, ALLERGY STATUS TO ANESTHETIC AGENT STATU, ALLERGY STATUS TO OTH DRUG/MEDS/BIOL SUB, ALLERGY STATUS TO OTHER ANTIBIOTIC AGENT, ALLERGY STATUS TO ANALGESIC AGENT STATUS] Anxiety Anxiety Chronic Active RICHIE ODGERS Not Avail able disorders (22 disorder, , (08988) sources.) unspecified Other Arthrodesis Episodic Active KERRY BUNN , Not A vailable connective status [place] (87031) tissue disease (3 sources.) Coronary Atheroscleroti Chronic Active FOREIGN HORAN Not Available atherosclerosi c heart (96850) s and other disease of heart disease [place] (21 sources.) coronary artery without angina pectoris Translations: [ OLD MYOCARDIAL INFARCTION] Other nervous Linn's palsy Episodic Active KHURRAM GRIJALVA , Not Available system (44248) disorders (12 sources.) Unclassified Body mass Chronic Active EDIE Urenau nity (20 sources.) index (BMI) 82946 [facility] 32.0-32.9, of [facility] adult [place] (57246) Translations: [ - Body mass index (BMI) of 32.0-32.9 in adult Z68.32, - Body mass index (BMI) of 32.0-32.9 in adult Z68.32, BODY MASS INDEX (BMI) 33.0-33.9, ADULT] Other Body mass Chronic Active ALI LINDEN , Not Avail able nutritional; index (BMI) MD LUO (19133) endocrine; and 33.0-33.9, metabolic adult disorders (4 sources.) Other Body mass Chronic Active [facility] nutritional; index (BMI) 39664 [facility] endocrine; and 45.0-49.9, of [facility] metabolic adult [place] (37066) disorders (6 Translations: sources.) [ - BMI 45.0-49.9, adult Z68.42] Other Body mass Chronic [facility]; index 30+ - 52225 [facility] endocrine; and obesity of [facility] metabolic Translations: [place] (60406) disorders (20 [ Body mass sources.) index (BMI) of 32.0-32.9 in adult, Body mass index (BMI) of 32.0-32.9 in adult] Chronic Bronchitis, [facility]isodic [facility] obstructive not [facility] [address] [facility] pulmonary as acute or of [facility] disease and chronic [place] (99457) bronchiectasis Translations: (1 source.) [ - Bronchitis J40] Spondylosis; Cervicalgia 02-05-2017 - no information Active SI SARINA LE Not Available intervertebral Translations: (86204) disc [ OTHER disorders; SPONDYLOSIS other back WITH problems (21 RADICULOPATHY, sources.) CE, SPINAL STENOSIS, CERVICOTHORACI C REGION, 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, CERVICAL DISC DISORDER W RADICULOPATHY, , CERVICAL DISC DISORDER AT C4-C5 LEVEL WI, CERVICAL DISC DISORDER W RADICULOPATHY, UNSP CERVICAL REGION, BRACHIAL NEURITIS OR RADICULITIS NOS, BRACHIAL NEURITIS OR RADICULITIS NOS, Lumbago with sciatica, right side, Lumbago with sciatica, right side] Residual Chronic pain Chronic Active [facility] Via John ti codes; Translations: [facility] unclassified [ Other [address] [place] (6 sources.) chronic pain, (87350) Other chronic pain] Residual Chronic pain Episodic Active [facility] codes; Translations: [address] [facility] unclassified [ Other of [place] (1 source.) chronic pain] [place] (17427) Other nervous Chronic pain Chronic Active ROSA [facility] syndrome [address] [facility] disorders (1 Translations: of [place] source.) [ Pain [place] (50135) syndrome, chronic] Superficial Contusion of Episodic Active MARGUERITE LE Not Available injury; right foot, (41509) contusion (6 initial sources.) encounter Translations: [ CONTUSION OF FOOT, CONTUSION OF RIGHT FOOT, SEQUELA, LATE EFFECT OF CONTUSION] Other diseases Cyst of Episodic Active KADIE Not Avai lable of kidney and kidney, MD SHAE (73511) ureters (8 acquired sources.) Fluid and Dehydration Episodic Active EDIETAWANNA BLANCAS Commun ity electrolyte Translations: [address] [facility] disorders (20 [ - of [place] sources.) Dehydration [place] (88434) E86.0, - Dehydration E86.0] Conditions Dizziness and Episodic Active KADIE Not Christie ilable associated giddiness MD SHAE (75442) with dizziness Translations: or vertigo (6 [ - Vertigo sources.) R42] Genitourinary Dysuria Episodic Active EDIE Urenau nity symptoms and Translations: [address] [facility] ill-defined [ - Dysuria of [place] conditions (20 R30.0, - [place] (06656) sources.) Dysuria R30.0] Other Effusion, left Episodic Active KHURRAM VALENTINE , No t Available non-traumatic knee (18656) joint disorders (5 sources.) Other Encounter for Episodic Active EDIE BLANCAS [facility] ([facility] follow-up [address] [facility] sources.) examination of [facility] after [place] (81746) completed treatment for conditions other than malignant neoplasm Translations: [ - Hospital discharge follow-up Z09, - Hospital discharge follow-up Z09] Other Encounter for Episodic Active KERRY BUNN , Not Available aftercare (3 other [place] (89256) sources.) specified surgical aftercare Fever of Fever, Episodic Active EDIE BLANCAS Community unknown origin unspecified [address] [place] [address] Center (20 sources.) Translations: of [facility] [ - Fever, [place] (30089) unspecified fever cause R50.9, - Fever, unspecified fever cause R50.9] Other Ganglion, left Episodic Active EDIE BLANCAS Com [facility] connective wrist [id number] [place] [address] tissue disease Translations: of [facility] (20 sources.) [ - Ganglion [place] (24202) of left wrist M67.432, - Ganglion of left wrist M67.432] Gastritis and Gastritis, Episodic Active TAKAAKI KIDO , No t Available duodenitis (5 unspecified, (26785) sources.) without bleeding Residual H/O: surgery Episodic Active JULIO MADL Communi ty codes; Translations: [address] [place] [address] unclassified [ S/p of [facility] (10 sources.) nephrectomy] [place] (89457) Headache; Headache Episodic Active TRAVIS CANDELARIA Not Availab le including (78676) migraine (3 sources.) Other nervous Lesion of Chronic Active ROSA ALIS Commun ity system plantar nerve, [address] [facility] (2 left lower of [facility] sources.) limb [place] (73633) Translations: [ - 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] Lymphadenitis Localized Episodic Active ROSA ALIS Commun ity (12 sources.) enlarged lymph [facility] [facility] r nodes of [facility] Translations: [place] (34631) [ - Enlarged lymph nodes in armpit R59.0, - Axillary lymphadenopath y R59.0] Other senior living Episodic Active RICHIE ODGERS Not Avai lable aftercare (22 (current) use , (87008) sources.) of aspirin 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 TRAVIS CANDELARIA Not Availa ble aftercare (3 (current) use (30750) sources.) of systemic steroids Nonmalignant Mastodynia Episodic Active ARLIN [facility] Via breast Translations: ALBERT Barrow conditions (7 [ - Breast Hospital - sources.) pain, left [place] N64.4] (27730) Other Metabolic [facility] [address] [facility] endocrine; and unspecified of [place] metabolic Translations: [place] (43264) disorders (20 [ Metabolic sources.) disorder, unspecified, - Metabolic disorder, unspecified E88.9, Metabolic disorder, unspecified, - Metabolic disorder, unspecified E88.9] Other nervous Roman's Chronic Active ROSA ALIS Communi ty system metatarsalgia [address] [facility] disorders (1 Translations: of [place] source.) [ Owens's [place] (14757) neuroma of left foot] Other Neuralgia and Episodic Active ROSA ALIS Commun ity connective neuritis, [address] [facility] tissue disease unspecified of [facility] (6 sources.) Translations: [place] (37147) [ - Nerve pain M79.2] Substance-rela Nicotine Chronic Active [facility] Via sada disorders dependence, MD Pushpa EDWARDS (2 sources.) cigarettes, Hospital - uncomplicated [place] ([address]) Other Obesity Chronic Active [facility] nutritional; Translations: [address] [facility] endocrine; and [ Other of [facility] metabolic obesity due to [place] (66904) disorders (20 excess sources.) calories, Other obesity due to excess calories] Other Obesity, Chronic Active ALI LINDEN , Not Availa ble nutritional; unspecified [facility] (86063) endocrine; and metabolic disorders (6 sources.) Occlusion or Occlusion and Chronic Active FOREIGN BAIMA N ot Available stenosis of stenosis of (08710) precerebral bilateral arteries (7 carotid sources.) arteries Coronary Old myocardial no information Active RICHIE BENTLEY Not Available atherosclerosi jagjit , (84861) s and other Translations: heart disease [ PRESENCE OF (19 sources.) CORONARY ANGIOPLASTY IMPLANT, OLD MYOCARDIAL INFARCTION] Other Osteophyte, Chronic Active EDIE BLANCAS Not Av ailable non-traumatic vertebrae (79688) joint disorders (3 sources.) Nonspecific Other chest Episodic Active FOREIGN BAIMA Not Available chest pain (20 pain (35204) sources.) Translations: [ - Left-sided chest wall pain R07.89, - Chest pain, unspecified type R07.9] Other nervous Other chronic Chronic Active TRAVIS CANDELARIA No t Available system pain (40863) disorders (23 Translations: sources.) [ - Other chronic pain G89.29, - Other chronic pain G89.29] Malaise and Other fatigue Episodic Active ROSA roberts fatigue (6 Translations: [address] [facility] sources.) [ - Fatigue, of [facility] unspecified [place] (09518) type R53.83] Other Other long Episodic Active ALI LINDEN , Not Avai lable aftercare (20 term (current) MD MAYA (29584) sources.) drug therapy Translations: [ - Controlled substance agreement signed Z79.899, - Controlled substance agreement signed Z79.899, - Long-term use of high-risk medication Z79.899] Rheumatoid Other Chronic Active TRAVIS CANDELARIA Not Availa ble arthritis and specified (23117) related spondylopathie disease (4 s, cervical sources.) region Translations: [ Retrolisthesis of vertebrae] External cause Overexertion Episodic Active KADIE [facility] Via codes: from MD Pushpa Mcdaniels Natural/enviro static or Hospital - nment [facility] [facility] [place] sources.) postures, (52418) initial encounter Other Pain in left Episodic Active ROSA May ty connective arm [id number] [place] [address] Center tissue disease Translations: of [facility] (6 sources.) [ - Left arm [place] (59796) pain M79.602] Other Pain in left Episodic Active ROSA May ty connective foot [address] [place] [address] tissue disease Translations: of [facility] (1 source.) [ - Foot pain, [place] (61650) left M79.672] Other Pain in left 02-05-2017 - Episodic Active WESTON BRO WN Not Available non-traumatic shoulder (91872) joint Translations: disorders (20 [ - Left sources.) anterior shoulder pain M25.512, - Pain in left shoulder M25.512, - Acute pain of left shoulder M25.512] Other Pain in limb Episodic Active HERMINIO YU [facility] connective [place] of tissue disease [place] (2 sources.) [facility] (84890) Other Pain in right Episodic Active HERMINIO YU Hosp ital connective foot [place] of tissue disease [place] (2 sources.) County ([address]) Other and Personal Episodic Active MARGUERITE PARKSO , Not Avai lable unspecified history of (48017) benign colonic polyps neoplasm (9 sources.) Screening or Personal Episodic Active RICHIE ODGERS Not Av ailable history of history of , (47356) mental health nicotine and substance dependence abuse (22 sources.) Residual Personal Episodic Active KADIE Not Available codes; history of MD SHAE (25425) unclassified other (5 sources.) complications of , childbirth and the puerperium Other Personal Episodic Active RICHIE BENTLEY Not Avail able gastrointestin history of , (96468) al disorders other diseases (20 sources.) of the digestive system Cancer of Personal Episodic Active TRAVIS CANDELARIA Not Availab le kidney and history of (19854) renal pelvis other (5 sources.) malignant neoplasm of kidney Other Personal Episodic Active TRAVIS CANDELARIA Not Availab le non-epithelial history of (75653) cancer of skin other (8 sources.) malignant neoplasm of skin Gastroduodenal Personal Episodic Active MARGUERITE PARKSO , Not Available ulcer (9 history of MD (89588) sources.) peptic ulcer disease Other nervous Polyneuropathy Chronic Active EDIE [facility] system in diseases [address] Health Center disorders (20 classified of [place] sources.) elsewhere [place] [place] ([address]) Translations: [ 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 classified elsewhere, - 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3, 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 classified elsewhere, - 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3] Other Presence of Chronic Active TRAVIS CANDELARIA Not Avai lable circulatory cardiac and (36260) disease (3 vascular sources.) implant and graft, unspecified Anal and Rectal polyp Episodic Active MARGUERITE PARKSO , Not Available rectal (29584) conditions (5 sources.) Other diseases Renal mass Chronic Active [facility] of kidney and Translations: [facility] ureters (2 [ Left kidney of [place] sources.) mass, Right [place] (85239) renal mass] Rheumatoid Retrolisthesis Episodic Active [facility] arthritis and Translations: [facility] related [ of [place] disease (5 Retrolisthesis [place] (62774) sources.) of vertebrae] Hemorrhoids (5 Second degree Episodic Active TAKAAKI KIDO , Not Available sources.) hemorrhoids (03981) Other lower Shortness of Episodic Active ROSA SNELL Commu nity respiratory breath [address] [place] [address] Center disease (5 Translations: of [facility] sources.) [ - Shortness [place] (29750) of breath R06.02] Other lower Solitary Episodic Active EDIE BLANCAS Communi ty respiratory nodule of lung [id number] [place] [address] r disease (20 Translations: of [facility] sources.) [ Pulmonary [place] (17367) nodule, Pulmonary nodule] Other lower Solitary Episodic Active WESTON BROWN Not Christie ilable respiratory pulmonary , (53480) disease (8 nodule sources.) Other acquired Spondylolisthe Episodic Active ROSA ALIS Not Available deformities (4 sis, lumbar (75254) sources.) region Cardiac Tachycardia, Episodic Active ALI LINDEN , Not Av ailable dysrhythmias unspecified FAC (68019) (6 sources.) Contraceptive Tubal ligation Episodic Active RICHIE ODGERS Not Available and status , (92524) procreative management (22 sources.) Chronic ulcer Ulcer of lower Chronic Active EDIE BLANCAS Community of skin ([address] [place] [address] Center sources.) Translations: of [facility] [ Skin ulcer [place] (60216) of buttock, limited to breakdown of skin, - Skin ulcer of buttock, limited to breakdown of skin L98.411, Skin ulcer of buttock, limited to breakdown of skin, - Skin ulcer of buttock, limited to breakdown of skin L98.411] Other diseases Unspecified Episodic Active WESTON BROWN N ot Available of kidney and disorder of MD (55137) ureters (8 kidney and sources.) ureter External cause Unspecified Episodic Active ROSA ALIS Com munity codes: Fall (1 fall, initial [address] [place] [address] Center source.) encounter of [facility] Translations: [place] (42544) [ - Fall, initial encounter W19.XXXA] Other injuries Unspecified Episodic Active EDIE BLANCAS C ommunity and conditions injury of [address] [place] [address] due to right foot, of [facility] external subsequent [place] (98941) causes (20 encounter sources.) Translations: [ - Injury of right foot, subsequent encounter S99.921D, - Injury of right foot, subsequent encounter S99.921D] Osteoarthritis Unspecified Chronic Active RICHIE ODGERS N ot Available (11 sources.) osteoarthritis MD (57933) , unspecified site Translations: [ UNILATERAL PRIMARY OSTEOARTHRITIS , RIGHT KNEE, OSTEOARTHROSIS , LOCALIZED, PRIMARY, INVOLVING LOWER LEG] Past or Other Problems Problem Normalized Date of Normalized Normalized Provider Fac ility Classification Problem(s) Problem Problem Problem Sta tus Onset/Resoluti Duration on Unclassified Cervical disc no information no information no nam e no information (1 source.) 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 Other Effusion of Episodic Completed no name no informa tion non-traumatic joint, lower joint leg disorders (2 sources.) Other Effusion, Episodic Completed no name no informati on non-traumatic right knee joint disorders (2 sources.) External Fall on same no information no information KHURRAM CARMEN , Not Available Injury - Fall level from (53221) (9 sources.) slipping, tripping and stumbling with subsequent striking against other object, initial encounter Translations: [ - Fall, initial encounter W19.XXXA] Other injuries Knee, leg, Episodic Completed no name no inf ormation and conditions ankle, and due to foot injury external causes (3 sources.) 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 ALI LINDEN , Not Available aftercare (6 (current) use MD MAYA (46697) sources.) of oral hypoglycemic drugs Other Long-term Episodic Completed FOREIGN HORAN Not Avai lable aftercare (6 (current) use (52381) sources.) of other medications Mood disorders Major no information no information RICHIE MAYS Not Available (22 sources.) depressive MD (64681) disorder, single episode, unspecified Residual Other no information no information TRAVIS Sharma ot Available codes; specified (35214) unclassified postprocedural (3 sources.) states Other Pain in joint, 02-05-2017 - Episodic Completed WESTON BROWN Not Available non-traumatic shoulder (42185) joint region disorders (3 sources.) Disorders of Pure no information no information KADIE Not Available lipid hypercholesMendez MD (31269) metabolism (20 olemia, sources.) unspecified Other injuries Unspecified Episodic Completed no name no in formation and conditions injury of due to right lower external leg, initial causes (3 encounter sources.) Procedures Procedure Normalized Procedure Procedure Result Performer Facility Date 04-14-2018 Collection venous no information no name (no phone) [facility] blood venipuncture [facility] (11657) 03-03-2018 Collection venous no information no name (no phone) [facility] blood venipuncture [facility] (41701) 04-21-2018 Computed tomography of no information EDIE BLANCAS [facility] abdomen and pelvis [place] (56172) with contrast 05-01-2018 Computerized axial no information KADIE Brian CHASE Gertrudis [facility] tomography of brain [place] (89013) 05-16-2018 Gluc bld gluc mntr dev no information no name (no p dayo) [facility] cleared [facility] spec home [facility] (93249) 04-06-2018 Gluc bld gluc mntr dev no information no name (no p dayo) [facility] spec [facility] (72025) 07-12-2018 Hemoglobin no information no name (no phone) Comm [facility] glycosylated a1c [facility] (16744) 04-14-2018 Hemoglobin no information no name (no phone) Comm [facility] glycosylated a1c [facility] (16925) 05-16-2018 Iv infusion hydration no information no name (no ph one) [facility] initial 31 min-1 hour [facility] (23346) 08-11-2018 LAB NOT BILLED BY no information no name (no phone) [facility] (59364) 05-16-2018 LAB NOT BILLED BY no information no name (no phone) [facility] (19022) 05-14-2018 LAB NOT BILLED BY no information no name (no phone) [facility] (47432) 04-14-2018 LAB NOT BILLED BY no information no name (no phone) [facility] (66650) 03-03-2018 LAB NOT BILLED BY no information no name (no phone) [facility] (53934) 08-31-2019 MRI of lumbar spine no information no name (no phon e) [place] [facility] without contrast [facility] (83991) 04-27-2018 Physical therapy no information no name (no phone) [facility] evaluation mod complex [facility] 30 mins [place] (03667) 01-03-2019 Radex shoulder no information no name (no phone) [facility] complete minimum 2 Center of [facility] (40492) 04-27-2018 Therapeutic px 1/> no information no name (no phone ) [facility] areas each 15 min [facility] exercises [place] (07810) 05-16-2018 Urnls dip stick/tablet no information no name (no p dayo) [facility] rgnt auto w/o [facility] (73510) 05-14-2018 Urnls dip stick/tablet no information no name (no p dayo) [facility] rgnt auto w/o [facility] (33930) 04-06-2018 Urnls dip stick/tablet no information no name (no p dayo) [facility] rgnt auto w/o [facility] (53096) Immunizations Normalized Immunization Date Notes Care Provider Facili ty Immunization pneumococcal 06-09-2019 no information no name [facility] conjugate vaccine, [facility] 13 [facility] (41736) no information 09-07-2019 - no information ROSA SNELL 88642 A scension Via 09-07-2019 [facility] (12744) Results Test Name Value Interpretation Reference Range Date Time Fa cility (Normalized) (Normalized) (Medline Reference) xray : shoulder, left 2 view (in house) on null NEGATED: no information (no code) [facility] Laboratory [facility] studies (set) (67534) ua long dip (in house) on null Glucose Test Negtive (no code) [facility] strip mass conc Center of (U) [facility] (19407) Protein mass Trace (no code) [facility] conc (U) [facility] (01156) glucose fingerstick (in house) on null GLUCOSE no information (no code) [facility] FINGERSTICK (IN Center of HOUSE) [facility] (71421) a1c (in house) on null Hemoglobin 6.7 % (no code) 0 - 5.7 % [facility] A1c/Hemoglobin.t Center of otal mass [facility] fraction (Bld) (09017) Hemoglobin 6.9 % (no code) 0 - 5.7 % [facility] A1c/Hemoglobin.t Center of otal mass [facility] fraction (Bld) (76778) No panel information on null BLO Negtive (no code) [facility] (57831) KET 09/16/2018~clear (no code) [facility] ~dark [facility] yellow~none~Negt [facility] cheri~1+~Trace (65162) HI no information (no code) [facility] (24259) Lot # [id number] (no code) [facility] (15782) pH (Bld) 8.5 [pH] (no code) 7.38 - 7.42 [pH] [facility] (15298) Protein mass Trace (no code) [facility] conc (U) [facility] (09400) SG 1.015 (no code) [facility] (57284) URO 1.0 (no code) [facility] (59346) No panel information on 2019-12-28 CLINICAL no information (N) [facility] INFORMATION: [facility] (89431) COMMENT no information (no code) [facility] (84995) [employer] Cyto no information (N) [facility] stain Nom [facility] (Cvx/Vag) [ID] [facility] (43995) Date of previous no information (N) [facility] biopsy Center [facility] (65210) Date of previous 10/28/2017 (N) [facility] PAP smear [facility] (08111) HPV E6+E7 mRNA Not Detected (N) [facility] RENY+probe Ql [facility] (Cvx) [facility] (04913) Last menstrual no information (N) [facility] period start [facility] (73838) Microscopic no information (N) [facility] observation Cyto [facility] stain Nom (Cvx) [facility] (29959) Specimen source no information (N) [facility] Cyto stain Nom [facility] (Cvx/Vag) [facility] (95868) Statement of no information (N) [facility] adequacy Cyto [facility] (Cvx/Vag) [facility] [Interp] (64421) No panel information on 2019-10-17 A:C (IN HOUSE) 30-300 (no code) [facility] (97899) Albumin 3.9 g/dL (N) 3.4 - 5.4 g/dL [facility] [Mass/Vol] [facility] (72055) Albumin/Globulin 1.2 {ratio} (N) 1 - 2.5 {ratio} [facility] [Mass ratio] [facility] (72910) ALP [Catalytic 97 U/L (N) 44 - 147 U/L [facility] activity/Vol] [facility] (59389) ALT [Catalytic 12 U/L (N) 4 - 40 U/L Community ealth activity/Vol] [facility] (42371) AST [Catalytic 15 U/L (N) 10 - 34 U/L [facility] activity/Vol] [facility] (12312) Bilirubin 0.4 mg/dL (N) 0.1 - 1.2 mg/dL [facility] [Mass/Vol] [facility] (05241) Calcium 9.5 mg/dL (N) 8.5 - 10.2 mg/dL [facility] [Mass/Vol] [facility] (38239) Chloride 105 mmol/L (N) 95 - 106 mmol/L [facility] [Moles/Vol] [facility] (30847) Cholesterol 179 mg/dL (N) 180 - 200 mg/dL [facility] [Mass/Vol] [facility] (69716) Cholesterol in 34 mg/dL (L) [facility] HDL [Mass/Vol] [facility] (34038) Cholesterol in 119 mg/dL (H) 0 - 100 mg/dL [facility] LDL [Mass/Vol] [facility] (33000) Cholesterol non 145 mg/dL (H) [facility] HDL [Mass/Vol] [facility] (36349) Cholesterol.tota 5.3 {ratio} (H) [facility] l/Cholesterol in [facility] HDL [Mass ratio] [facility] (15133) CO2 [Moles/Vol] 32 mmol/L (N) 23 - 29 mmol/L [facility] (93949[facility] Color (U) 08/06~Clear~[place] (no code) [facility] lt ow [facility] (83121) CRE 80~300 (no code) [facility] (65611) Creatinine 0.86 mg/dL (N) [facility] [Mass/Vol] [facility] (05312) Exp date 06/07 (no code) [facility] (55660) GFR/1.73 sq M 83 (N) 90 - 120 [facility] predicted among mL/min/{1.73_m2} mL/min/{1.73_m2} [facility] blacks MDRD [facility] (S/P/Bld) [Vol (87723) rate/Area] GFR/1.73 sq 71 (N) 90 - 120 [facility].predicted MDRD mL/min/{1.73_m2} mL/min/{1.73_m2} [facility] (S/P/Bld) [Vol [facility] rate/Area] (31807) Globulin (S) 3.2 g/dL (N) 2 - 3.5 g/dL [facility] ealt [Mass/Vol] [facility] (00297) Glucose 104 mg/dL (H) 60 - 125 mg/dL [facility] [Mass/Vol] [facility] (49688) Lot 6.6~6.9~0552 (no code) [facility] (37920) Lot # [id number] (no code) [facility] (34402) Potassium 4.4 mmol/L (N) 3.7 - 5.2 mmol/L Counts include 234 beds at the [facility] [Moles/Vol] [facility] (89190) Protein 7.1 g/dL (N) 6.4 - 8.3 g/dL [facility] [Mass/Vol] [facility] (92990) Sodium 142 mmol/L (N) 135 - 145 mmol/L Counts include 234 beds at the [facility] [Moles/Vol] [facility] (23464) Triglyceride 138 mg/dL (N) 0 - 150 mg/dL [facility] [Mass/Vol] [facility] (26051) Urea nitrogen 17 mg/dL (N) 7 - 20 mg/dL [facility] [Mass/Vol] [facility] (21056) Urea NOT APPLICABLE (no code) [facility] nitrogen/Creatin [facility] [Mass ratio] [facility] (59391) No panel information on 2019-08-23 Amphetamines Ql no information (N) [facility] (U) [facility] (18456) Benzodiazepines no information (N) [facility] Ql (U) [facility] (80601) Benzoylecgonine no information (N) [facility] Ql (U) [facility] (91652) COMMENT no information (no code) [facility] (57927) Creatinine (U) 106.7 mg/dL (N) [facility] [Mass/Vol] [facility] (15465) Drug screen INCONSISTENT (A) [facility] comment (U) [facility] [Interp] [facility] (95795) Drug screen CONSISTENT (N) [facility] comment (U) [facility] [Interp] [facility] (53708) Noroxycodone 1029 (H) [facility] Confirm (U) [facility] [Mass/Vol] [facility] (01777) Opiates Ql (U) no information (N) [facility] (67705) Oxidants Ql (U) no information (N) [facility] (46492) Oxycodone (U) no information (N) [facility] (46877) Oxycodone Ql (U) no information (A) Community a [facility] (41853) Oxymorphone (U) 188 (H) [facility] [Mass/Vol] [facility] (07809) pH (U) 7.6 [pH] (N) 4.6 - 8 [pH] [facility] alth [facility] (62643) Prescribed Drug Hydrocodone (no code) [facility] 1 [facility] (02418) Tetrahydrocannab no information (N) [facility] lth inol Ql (U) [facility] (20890) No panel information on 2019-08-12 Exp date no information (no code) [facility] (16728) No panel information on 2019-06-09 Exp date 12/2020 (no code) [facility] (71864) Lot 6.9~7.4~0993 (no code) [facility] (08660) No panel information on 2019-05-06 Exp date no information (no code) [facility] (07957) No panel information on 2019-05-03 A. <1:64 (no code) [facility] phagocytophilum [facility] IgG IF (S) [facility] [Titer] (48522) A. <1:20 (no code) [facility] IF (S) [facility] [Titer] (34581) Albumin 4.1 g/dL (N) 3.4 - 5.4 g/dL [facility] [Mass/Vol] [facility] (78821) Albumin/Globulin 1.5 {ratio} (N) 1 - 2.5 {ratio} [facility] [Mass ratio] [facility] (19596) ALP [Catalytic 101 U/L (N) 44 - 147 U/L [facility] activity/Vol] [facility] (30608) ALT [Catalytic 14 U/L (N) 4 - 40 U/L [facility] ealth activity/Vol] [facility] (62111) AST [Catalytic 15 U/L (N) 10 - 34 U/L [facility] activity/Vol] [facility] (06370) B. burgdorferi <0.90 (no code) [facility] Ab IA Qn (S) [facility] (15066) B. duncani Ab IF <1:256 (no code) [facility] [[facility] (17989) B. microti IgG <1:64 (no code) [facility] h (S) [Titer] [facility] (74393) B. microti IgM <1:20 (no code) [facility] h (S) [Titer] [facility] (33489) Band form 0.26 10*3/uL (N) 0 - 0.75 10*3/uL [facility] neutrophils [facility] (Bld) [#/Vol] [facility] (33064) Band form 3.1 % (N) 0 - 3 % [facility] neutrophils/100 [facility] WBC (Bld) [facility] (43794) Basophils (Bld) 0.084 10*3/uL (N) 0 - 0.3 10*3/uL [facility] [#/Vol] [facility] (76531) Basophils/100 1.0 % (N) 0.5 - 1 % [facility] WBC (Bld) [facility] (37138) Bilirubin 0.5 mg/dL (N) 0.1 - 1.2 mg/dL [facility] [Mass/Vol] [facility] (56301) Calcium 9.5 mg/dL (N) 8.5 - 10.2 mg/dL Counts include 234 beds at the [facility] [Mass/Vol] [facility] (01670) Chloride 108 mmol/L (N) 95 - 106 mmol/L [facility] [Moles/Vol] [facility] (43633) CO2 [Moles/Vol] 29 mmol/L (N) 23 - 29 mmol/L [facility] (47490) Creatinine 0.68 mg/dL (N) [facility] [Mass/Vol] [facility] (57739) E. chaffeensis <1:64 (no code) [facility] IgG IF (S) [facility] [Titer] [facility] (59004) E. chaffeensis no information (no code) [facility] IgG+IgM Ql [facility] (38672) E. chaffeensis <1:20 (no code) [facility] IgM IF (S) [facility] [Titer] [facility] (14081) Eosinophils 0.168 10*3/uL (N) 0.05 - 0.5 [facility] alth (Bld) [#/Vol] 10*3/uL [facility] (11763) Eosinophils/100 2.0 % (N) 1 - 4 % [facility] WBC (Bld) [facility] (13789) Erythrocyte 12.7 % (N) 11.6 - 14.6 % [facility] ealth distribution [facility] width (RBC) [facility] [Ratio] (97987) Free T4 1.1 ng/dL (N) 0.9 - 2.2 ng/dL [facility] [Mass/Vol] [facility] (32517) GFR/1.73 sq M 107 (N) 90 - 120 [facility] predicted among mL/min/{1.73_m2} mL/min/{1.73_m2} [facility] f [facility] blacks MDRD [facility] (S/P/Bld) [Vol (65297) rate/Area] GFR/1.73 sq 92 (N) 90 - 120 [facility] th M.predicted MDRD mL/min/{1.73_m2} mL/min/{1.73_m2} [facility] (S/P/Bld) [Vol [facility] rate/Area] (73467) Globulin (S) 2.8 g/dL (N) 2 - 3.5 g/dL [facility] ealt [Mass/Vol] [facility] (33759) Glucose 126 mg/dL (H) 60 - 125 mg/dL [facility] [Mass/Vol] [facility] (66280) Hematocrit (Bld) 42.1 % (N) 36.1 - 50.3 % [facility] [Volume [facility] fraction] [facility] (88828) Hemoglobin (Bld) 14.0 g/dL (N) 12.1 - 17.2 g/dL [facility] [Mass/Vol] [facility] (65029) INTERPRETATION no information (no code) [facility] (46451) INTERPRETATION no information (no code) [facility] (62209) Lymphocytes 3.083 10*3/uL (N) 0.9 - 2.9 Community [facility]th (Bld) [#/Vol] 10*3/uL [facility] (39123) Lymphocytes/100 36.7 % (N) 20 - 40 % [facility] WBC (Bld) [facility] (69360) MCH (RBC) 30.3 pg (N) 27 - 31 pg [facility] [Entitic mass] [facility] (55146) MCHC (RBC) 33.3 g/dL (N) 32 - 36 g/dL [facility] [Mass/Vol] [facility] (68820) MCV (RBC) 91.1 fL (N) 80 - 100 fL [facility] [Entitic vol] [facility] (38343) Monocytes (Bld) 0.773 10*3/uL (N) 0.3 - 0.9 [facility] [#/Vol] 10*3/uL [facility] (11588) Monocytes/100 9.2 % (N) 2 - 8 % [facility] WBC (Bld) [facility] (49252) Morphology Mick no information (N) [facility] (Bld) [Interp] [facility] (17389) Neutrophils 4.032 10*3/uL (N) 1.7 - 7 10*3/uL Commun[facility] (Bld) [#/Vol] [facility] (18561) Neutrophils/100 48.0 % (N) 40 - 60 % [facility] WBC (Bld) [facility] (22940) Platelet mean 10.1 fL (N) 7.2 - 11.7 fL [facility] volume (Bld) [facility] [Entitic vol] [facility] (21890) Platelets (Bld) 170 10*3/uL (N) 150 - 450 [facility] [#/Vol] 10*3/uL [facility] (36893) Platelets LM Ql ADEQUATE (N) [facility] (Bld) [facility] () Potassium 4.4 mmol/L (N) 3.7 - 5.2 mmol/L Counts include 234 beds at the [facility] [Moles/Vol] [facility] () Protein 6.9 g/dL (N) 6.4 - 8.3 g/dL [facility] [Mass/Vol] [facility] (48354) R. spotted fever NOT DETECTED (no code) [facility] group IgG Ql (S) [facility] () R. spotted fever NOT DETECTED (no code) [facility] group IgM Ql (S) [facility] () RBC (Bld) 4.62 10*6/uL (N) 4.2 - 6.1 [facility] [#/Vol] 10*6/uL [facility] ([id number]) Sodium 142 mmol/L (N) 135 - 145 mmol/L Counts include 234 beds at the [facility] [Moles/Vol] [facility] (42811) TSH Qn 1.21 m[IU]/L (N) 0.4 - 4 m[IU]/L [facility] (79954) Urea nitrogen 16 mg/dL (N) 7 - 20 mg/dL [facility] [Mass/Vol] [facility] (11599) Urea NOT APPLICABLE (no code) [facility]/Creatin [facility] [Mass ratio] [facility] (67339) WBC (Bld) 8.4 10*3/uL (N) 3.5 - 10.5 [facility] [#/Vol] 10*3/uL [facility] (56561) No panel information on 2019-02-21 Exp date 07/2020 (no code) [facility] (79266) Lot [id number] (no code) [facility] (71265) No panel information on 2018-05-16 Alanine 15 U/L (N) 4 - 40 U/L [facility] aminotransferase [facility] (ALT) [facility] (64253) Albumin 3.8 g/dL (N) 3.4 - 5.4 g/dL [facility] (16139) Albumin/Globulin 1.3 (N) [facility] Ratio [facility] (31443) Alkaline 80 U/L (N) 44 - 147 U/L [facility] alth phosphatase [facility] (ALP) [facility] (64881) Aspartate 13 U/L (N) 10 - 34 [facility]/L [facility] aminotransferase [facility] (AST) [facility] (44748) Basophils 0.054 10*3/uL (N) 0 - 0.3 10*3/uL [facility] (25117) Basophils/100 0.5 % (N) 0.5 - 1 % [facility] alth leukocytes [facility] (41216) Bilirubin 1.1 mg/dL (N) 0.1 - 1.2 mg/dL [facility] (total) [facility] (13645) BLO Trace-intact (no code) [facility] (67575) BUN/Creatinine NOT APPLICABLE (no code) [facility] (43072) Calcium 9.4 mg/dL (N) 8.5 - 10.2 mg/dL [facility] (00895) Chloride 103 mmol/L (N) 95 - 106 mmol/L [facility] (76974) CO2 27 mmol/L (N) 23 - 29 mmol/L [facility] (62169) Creatinine 0.60 mg/dL (N) [facility] (59251) eGFR (black) 112 (N) 90 - 120 [facility] mL/min/{1.73_m2} mL/min/{1.73_m2} [facility] (60992) eGFR (MDRD) 97 (N) 90 - 120 [facility] mL/min/{1.73_m2} mL/min/{1.73_m2} [facility] (52697) Eosinophils 0.302 10*3/uL (N) 0.05 - 0.5 [facility] 10*3/uL [facility] (97472) Eosinophils/100 2.8 % (N) 1 - 4 % [facility] leukocytes [facility] (55492) Erythrocytes 4.83 10*6/uL (N) 4.2 - 6.1 [facility] alth (RBC) 10*6/uL [facility] (90777) Exp date 01 Sep 2018 (no code) [facility] h [facility] (64356) Globulin 2.9 (N) [facility] (31945) GLU FINGERSTICK 110 (no code) [facility] (07995) Glucose 116 mg/dL (H) 60 - 125 mg/dL [facility] (56804) Hematocrit (HCT) 44.7 % (N) 36.1 - 50.3 % [facility] (98269) Hemoglobin (HGB) 15.0 g/dL (N) 12.1 - 17.2 g/dL [facility] (80827) KET 01/2019~Clear~Ye (no code) [facility]None~[facility] ve~Negative~[facility] (94125) HI no information (no code) [facility] (94946) Lot # [id number] (no code) [facility] (67582) Lot # [id number] (no code) [facility] h [facility] (83490) Lymphocytes 1.242 10*3/uL (N) 0.9 - 2.9 [facility] 10*3/uL [facility] (93467) Lymphocytes/100 11.5 % (N) 20 - 40 % [facility] leukocytes [facility] (54973) MCH 31.1 pg (N) 27 - 31 pg [facility] (96195) MCHC 33.6 g/dL (N) 32 - 36 g/dL [facility] (76890) MCV 92.5 fL (N) 80 - 100 fL [facility] (17269) Monocytes 0.961 10*3/uL (H) 0.3 - 0.9 [facility] 10*3/uL [facility] (56429) Monocytes/100 8.9 % (N) 2 - 8 % [facility] alth leukocytes [facility] (30846) Neutrophils 8.24 10*3/uL (H) 1.7 - 7 10*3/uL [facility] (46731) Neutrophils/100 76.3 % (N) 40 - 60 % [facility] leukocytes [facility] (98642) PC 10 hrs (no code) [facility] (15433) pH of blood 7.0 [pH] (no code) 7.38 - 7.42 [pH] [facility] (96656) Platelet mean 10.7 fL (N) 7.2 - 11.7 fL [facility] volume (PMV) [facility] (78164) Platelets 112 10*3/uL (L) 150 - 450 [facility] 10*3/uL [facility] (91048) Potassium 4.2 mmol/L (N) 3.7 - 5.2 mmol/L [facility] (64939) Protein 6.7 g/dL (N) 6.4 - 8.3 g/dL [facility] (72511) RDW-CA 12.1 % (N) 11.6 - 14.6 % [facility] (17206) SG 1.015 (no code) [facility] (64606) Sodium 140 mmol/L (N) 135 - 145 mmol/L [facility] (54407) Urea nitrogen 13 mg/dL (N) 7 - 20 mg/dL [facility] (45412) Urine, protein no information (no code) 0 - 20 mg/dL [facility] (55824) URO 0.2 (no code) [facility] (20540) WBC (Leukocytes) 10.8 10*3/uL (N) 3.5 - 10.5 Counts include 234 beds at the [facility] 10*3/uL [facility] (89176) No panel information on 2018-05-14 BLO 2+ (no code) [facility] (88389) Exp date no information (no code) [facility] (22614) KET 09-16-2018~cloud (no code) [facility] y~dark [facility]~strong~ne [facility] gative~negative~ (70388) negative Lot # [id number] (no code) [facility] (63824) pH of blood 6.0 [pH] (no code) 7.38 - 7.42 [pH] [facility] (55519) SG 1.020 (no code) [facility] (03033) Urine culture, SEE NOTE (A) [facility] bacteria [facility] (66379) Urine, protein 2+ (no code) [facility] (46727) URO 0.2 (no code) [facility] (30692) No panel information on 2018-04-14 Albumin mass 4.0 g/dL (N) 3.4 - 5.4 g/dL no inform ation conc Albumin/Globulin 1.4 (N) no informatio n mass ratio ALP enzyme 91 U/L (N) 44 - 147 U/L no informati on act/vol ALT enzyme 12 U/L (N) 4 - 40 U/L no information act/vol AST enzyme 14 U/L (N) 10 - 34 U/L no informatio n act/vol Bilirubin mass 0.4 mg/dL (N) 0.1 - 1.2 mg/dL no inf ormation conc Calcium mass 9.0 mg/dL (N) 8.5 - 10.2 mg/dL no info rmation conc Chloride molar 105 mmol/L (N) 95 - 106 mmol/L no inf ormation conc CO2 molar conc 27 mmol/L (N) 23 - 29 mmol/L no info rmation Creatinine mass 0.55 mg/dL (N) no information conc GFR/1.73 sq M 116 (N) 90 - 120 no informati on predicted among mL/min/{1.73_m2} mL/min/{1.73_m2} blacks MDRD vol rate/area (S/P/Bld) GFR/1.73 sq 100 (N) 90 - 120 no information M.predicted MDRD mL/min/{1.73_m2} mL/min/{1.73_m2} vol rate/area Globulin 2.8 (N) no information Calculated mass conc (S) Glucose mass 159 mg/dL (H) 60 - 125 mg/dL no inform ation conc Potassium molar 3.9 mmol/L (N) 3.7 - 5.2 mmol/L no i nformation conc Protein mass 6.8 g/dL (N) 6.4 - 8.3 g/dL no inform ation conc Sodium molar 140 mmol/L (N) 135 - 145 mmol/L no info rmation conc Urea nitrogen 18 mg/dL (N) 7 - 20 mg/dL no informa tion mass conc Urea NOT APPLICABLE (no code) no information nitrogen/Creatin ine mass ratio venous blood hemoglobin measurement (mass/volume) on 2018-04-11 Hemoglobin (HGB) 14.7 g/dL (no code) 12 - 18 g/dL [facility] (90523) urine urobilinogen measurement by automated test strip (mass/volume) on 2018-04-11 Urine, 1 (no code) [facility] (78360[facility] urine total bilirubin detection by test strip on 2018-04-11 Urine, bilirubin no information (no code) [facility] (64657) urine protein assay by test strip, semi-quantitativ e on 2018-04-11 Urine, protein no information (no code) [facility] (92704) urine ph measurement by test strip on 2018-04-11 Urine, pH 5 [pH] (no code) 4.6 - 8 [pH] [facility] (34975) urine nitrite detection by test strip on 2018-04-11 Urine, nitrite no information (no code) [facility] (24216) urine ketones detection by automated test strip on 2018-04-11 Urine, ketones no information (no code) [facility] (06693) urine glucose detection by automated test strip on 2018-04-11 Urine, glucose no information (no code) [facility] (36008) urine color determination on 2018-04-11 Urine, color YELLOW (no code) [facility] (88032) urine clarity determination on 2018-04-11 Urine, clarity CLEAR (no code) [facility] (04127) squamous epithelial cells detection in urine sediment by light microscopy on 2018-04-11 Urine, squamous no information (no code) [facility] cells [facility] (27768) specific gravity of urine by test strip on 2018-04-11 Urine, specific 1.030 (*) [facility] (11266) serum or plasma urea nitrogen/creatin ine mass ratio on 2018-04-11 BUN/Creatinine 21 mg/mg (no code) 10 - 20 mg/mg [facility] (86354) serum or plasma urea nitrogen measurement (mass/volume) on 2018-04-11 Urea nitrogen 14 mg/dL (no code) 7 - 20 mg/dL [facility] (78098) serum or plasma sodium measurement (moles/volume) on 2018-04-11 Sodium 143 mmol/L (no code) 135 - 147 mmol/L [facility] (54770) serum or plasma potassium measurement (moles/volume) on 2018-04-11 Potassium 3.9 mmol/L (no code) 3.5 - 5.1 mmol/L [facility] (31950) serum or plasma glucose measurement (mass/volume) on 2018-04-11 Glucose 122 mg/dL (H) 60 - 125 mg/dL [facility] (97947) serum or plasma creatinine measurement with calculation of estimated glomerular filtration rate on 2018-04-11 eGFR (non-black) no information (no code) [facility] (93180) serum or plasma creatinine measurement (mass/volume) on 2018-04-11 Creatinine 0.66 mg/dL (no code) [facility] (45699) serum or plasma chloride measurement (moles/volume) on 2018-04-11 Chloride 109 mmol/L (H) 95 - 106 mmol/L [facility] (14393) serum or plasma calcium measurement (mass/volume) on 2018-04-11 Calcium 9.8 mg/dL (no code) 9 - 11 mg/dL [facility] (66863) serum or plasma anion gap determination (moles/volume) on 2018-04-11 Anion gap 13 mmol/L (no code) 3 - 11 mmol/L [facility] (99370) mucus detection in urine sediment by light microscopy on 2018-04-11 Urine, mucus SMALL (*) [facility] (06859) leukocyte esterase on 2018-04-11 Urine, leukocyte no information (no code) [facility] esterase [facility] (92531) erythrocytes detection in urine sediment by light microscopy on 2018-04-11 Urine, 1+ (*) [facility] erythrocytes [facility] (48608) crystals detection in urine sediment by light microscopy on 2018-04-11 Urine, crystals PRESENT (*) [facility] (51044) complete urinalysis with reflex to culture on 2018-04-11 Complete NO (no code) [facility] urinalysis with Hospital reflex to [place] culture (26994) casts detection in urine sediment by light microscopy on 2018-04-11 Urine, casts in NONE (no code) Via [facility] (46019) carbon dioxide on 2018-04-11 CO2 21 mmol/L (no code) 23 - 29 mmol/L [facility] (04035) calcium oxalate crystals detection in urine sediment by light microscopy on 2018-04-11 Calcium oxalate FEW (*) [facility] detection in [place] urine sediment (14863) by light microscopy blood neutrophils automated count (number/volume) on 2018-04-11 Neutrophils 5.0 10*3/uL (no code) 1.5 - 7.8 [facility] 10*3/uL [facility] (74208) blood monocytes/100 leukocytes on 2018-04-11 Monocytes/100 10 % (no code) 2 - 8 % [facility] leukocytes [facility] (65742) blood monocytes automated count (number/volume) on 2018-04-11 Monocytes 1.0 10*3/uL (no code) 0.2 - 1.1 [facility] 10*3/uL [facility] (24770) blood lymphocytes automated count (number/volume) on 2018-04-11 Lymphocytes 3.2 10*3/uL (no code) 0.85 - 4.1 [facility] 10*3/uL [facility] (62276) blood leukocytes automated count (number/volume) on 2018-04-11 WBC (Leukocytes) 9.4 10*3/uL (no code) 3.8 - 10.8 [facility] 10*3/uL [facility] (10518) blood hematocrit (volume fraction) on 2018-04-11 Hematocrit (HCT) 44 % (no code) 39 - 51 % [facility] (23160) blood erythrocytes automated count (number/volume) on 2018-04-11 Erythrocytes 4.64 10*6/uL (no code) 4.2 - 6.1 [facility] (RBC) 10*6/uL [facility] (29200) bacteria detection in urine sediment by light microscopy on 2018-04-11 Urine, bacteria TRACE (no code) [facility] in sediment [facility] (00032) automated urine sediment leukocyte count by microscopy (number/high power field) on 2018-04-11 Urine, RARE (no code) [facility]55761[facility] automated urine sediment erythrocyte count by microscopy (number/high power field) on 2018-04-11 Urine, no information (no code) [facility] erythrocytes in [facility] sediment [facility] (89496) automated erythrocyte mean corpuscular volume on 2018-04-11 MCV 94 fL (no code) 80 - 100 fL [facility] (83839) automated erythrocyte mean corpuscular hemoglobin concentration measurement (mass/volume) on 2018-04-11 MCHC 34 g/dL (no code) 32 - 36 g/dL [facility] (20050) automated erythrocyte mean corpuscular hemoglobin (mass per erythrocyte) on 2018-04-11 MCH 32 pg (no code) 27 - 31 pg [facility] (66967) automated erythrocyte distribution width ratio on 2018-04-11 RDW-CA 13.0 % (no code) 11 - 15 % [facility] (49022) automated eosinophil count on 2018-04-11 Eosinophils 0.2 10*3/uL (no code) 0.05 - 1.5 [facility] 10*3/uL [facility] (26851) automated blood platelet mean volume measurement on 2018-04-11 Platelet mean 10.1 fL (no code) 7.2 - 11.7 fL Via [facility] volume (PMV) [facility] (22181) automated blood platelet count (count/volume) on 2018-04-11 Platelets 189 10*3/uL (no code) 150 - 400 [facility] 10*3/uL [facility] (08759) automated blood neutrophils/100 leukocytes on 2018-04-11 Neutrophils/100 53 % (no code) 40 - 60 % [facility] leukocytes [facility] (10730) automated blood lymphocytes/100 leukocytes on 2018-04-11 Lymphocytes/100 34 % (no code) 20 - 40 % [facility] leukocytes [facility] (61981) automated blood eosinophils/100 leukocytes on 2018-04-11 Eosinophils/100 3 % (no code) 1 - 4 % [facility] (31303) automated blood basophils/100 leukocytes on 2018-04-11 Basophils/100 1 % (no code) 0.5 - 1 % [facility] (25265) automated blood basophil count (count/volume) on 2018-04-11 Basophils 0.1 10*3/uL (no code) 0 - 0.2 10*3/uL [facility] (53730) No panel information on 2018-04-06 Exp date 09/01/2018 (no code) [facility] (72913) GLU FINGERSTICK 110 (no code) [facility] (82137) Lot # [id number] (no code) [facility] (84435) No panel information on 2018-03-03 Basophils Auto 0.066 10*3/uL (N) 0 - 0.3 10*3/uL [facility] #/vol (Bld) [facility] (47544) Basophils/100 0.8 % (N) 0.5 - 1 % [facility] WBC Auto (Bld) [facility] (47383) Cholesterol in 33 mg/dL (L) [facility] HDL mass conc [facility] (93816) Cholesterol in 52 (N) [facility] LDL mass conc [facility] (01034) Cholesterol mass 103 mg/dL (N) 180 - 200 mg/dL [facility] conc [facility] (52472) Cholesterol non 70 (N) [facility] th HDL mass conc [facility] (59870) Cholesterol.tota 3.1 (N) [facility] lth l/Cholesterol in [facility] HDL mass ratio [facility] (52409) Eosinophils Auto 0.249 10*3/uL (N) 0.05 - 0.5 [facility] #/vol (Bld) 10*3/uL [facility] (81075) Eosinophils/100 3.0 % (N) 1 - 4 % [facility] WBC Auto (Bld) [facility] (47391) Erythrocyte 12.6 % (N) 11.6 - 14.6 % [facility] ealth distribution [facility] width Auto Ratio [facility] (RBC) (52337) Hematocrit Auto 44.4 % (N) 36.1 - 50.3 % [facility] Volume Fraction [facility] (Bld) [facility] (61247) Hemoglobin mass 14.8 g/dL (N) 12.1 - 17.2 g/dL [facility] Health conc (Bld) [facility] (64033) Lymphocytes Auto 2.15 10*3/uL (N) 0.9 - 2.9 [facility] #/vol (Bld) 10*3/uL [facility] (84254) Lymphocytes/100 25.9 % (N) 20 - 40 % [facility] WBC Auto (Bld) [facility] (10979) MCH Auto Entitic 31.2 pg (N) 27 - 31 pg [facility] mass (RBC) [facility] (90224) MCHC Auto mass 33.3 g/dL (N) 32 - 36 g/dL [facility] conc (RBC) [facility] (96489) MCV Auto Entitic 93.7 fL (N) 80 - 100 fL [facility] volume (RBC) [facility] (88253) Monocytes Auto 0.581 10*3/uL (N) 0.3 - 0.9 [facility] #/vol (Bld) 10*3/uL [facility] (53629) Monocytes/100 7.0 % (N) 2 - 8 % [facility] WBC Auto (Bld) [facility] (80563) Neutrophils Auto 5.254 10*3/uL (N) 1.7 - 7 10*3/uL [facility] #/vol (Bld) [facility] (17530) Neutrophils/100 63.3 % (N) 40 - 60 % [facility] WBC Auto (Bld) [facility] (50641) Platelet mean 10.0 fL (N) 7.2 - 11.7 fL [facility] volume Auto [facility] Entitic volume [facility] (Bld) (78129) Platelets Auto 164 10*3/uL (N) 150 - 450 [facility] #/vol (Bld) 10*3/uL [facility] (49059) RBC Auto #/vol 4.74 10*6/uL (N) 4.2 - 6.1 [facility] (Bld) 10*6/uL [facility] (86199) Thyrotropin Qn 0.59 m[IU]/L (N) 0.4 - 4 m[IU]/L [facility] (92803) Triglyceride 94 mg/dL (N) 0 - 150 mg/dL [facility] mass conc [facility] (99273) WBC Auto #/vol 8.3 10*3/uL (N) 3.5 - 10.5 [facility] (Bld) 10*3/uL [facility] (91590) No panel information on 2017-12-28 A:C (IN HOUSE) 30-300 (no code) [facility] (99796) Albumin DL <= 20 1.6 mg/dL (N) 0.2 - 1.9 mg/dL [facility] mg/L mass conc [facility] (U) [facility] (55022) Color Nom (U) 09/2018~clear (no code) [facility] n~yellow [facility] (92009) CRE 30~50 (no code) [facility] (09532) Creatinine mass 121 mg/dL (N) [facility] conc (U) [facility] (58830) Exp date 08/2019 (no code) [facility] (52007) Hemoglobin 6.9 % (no code) 0 - 5.7 % [facility] A1c/Hemoglobin.t [facility] fraction (Bld) (73752) Lot [id number] (no code) [facility] (21275) Lot # [id number] (no code) [facility] (95138) MICROALBUMIN/CRE 13 (N) [facility] ATININE RATIO, [facility] RANDOM URINE [facility] (95700) No panel information on 2017-10-28 Bacteria SEE NOTE (no code) [facility] identified Aer [facility] cx Nom (Genital [facility] specimen) (42636) CLINICAL no information (N) [facility] INFORMATION: [facility] (92798) [employer] Cyto no information (N) [facility] stain ID Nom [facility] (Cervical or [facility] vaginal smear or (63398) scraping) Date of previous no information (N) [facility] biopsy [facility] (10821) Date of previous UNKNOWN (N) [facility] PAP smear [facility] (72100) Exp date no information (no code) [facility] (83522) Exp date 10/2018 (no code) [facility] (33608) INFECTION: no information (N) [facility] (76064) Last menstrual AGE 55 (N) [facility] period start [facility] date [facility] (00647) Lot # [id number] (no code) [facility] (10634) Microscopic no information (N) [facility] observation Cyto [facility] stain Nom (Cvx) [facility] (46592) Specimen source Cervix (N) [facility] Cyto stain [facility] (Cervical or [facility] vaginal smear or (64084) scraping) Statement of no information (N) [facility] adequacy Cyto [facility] stain Interp [facility] (Cervical or (47267) vaginal smear or scraping) No panel information on 2017-03-24 H. pylori IgG Ql no information (no code) 03-24-2017 Not Av ailable (S) 12:30-0400 (38044) TSH Qn 0.81 (no code) 03-24-2017 Not Available 12:30-0400 (13725) No panel information on 2017-03-18 Basophils (Bld) 0.0 10*3/uL (no code) 0 - 0.3 10*3/uL 03-18-2017 Not Available [#/Vol] 15:10-0400 (43500) Basophils/100 0.40 % (no code) 0.5 - 1 % 03-18-2017 Not Avai lable WBC (Bld) 15:10-0400 (95485) E. CHAFFEENSIS no information (no code) 03-18-2017 Not Avai lable (HME) IGG TITER 15:10-0400 (32692) E. CHAFFEENSIS no information (no code) 03-18-2017 Not Avai lable (HME) IGM TITER 15:10-0400 (07942) Eosinophils 0.4 10*3/uL (no code) 0.05 - 0.5 03-18-2017 Not Christie ilable (Bld) [#/Vol] 10*3/uL 15:10-0400 (82437) Eosinophils/100 4.5 % (no code) 1 - 4 % 03-18-2017 Not Av ailable WBC (Bld) 15:10-0400 ([id number]) Erythrocyte 12.8 % (no code) 11.6 - 14.6 % 03-18-2017 Not Av ailable distribution 15:10-0400 ([id number]) width (RBC) [Ratio] ESR (Bld) 7 mm/h (L) 03-18-2017 Not Available [Velocity] 15:10-0400 ([id number]) Hematocrit (Bld) 44.9 % (no code) 36.1 - 50.3 % 03-18-2017 N ot Available [Volume 15:0400 ([id number]) fraction] Hemoglobin (Bld) 14.9 g/dL (no code) 12.1 - 17.2 g/dL 03-18-2017 Not Available [Mass/Vol] 15:10-0400 ([id number]) HGE IGG TITER no information (no code) 03-18-2017 Not Avail able 15:10-0400 ([id number]) HGE IGM TITER no information (no code) 03-18-2017 Not Avail able 15:0400 ([id number]) LYME DISEASE AB, <0.80 (no code) 03-18-2017 Not Avail able QUANT, IGM 15:10-0400 ([id number]) LYME IGG/IGM AB <0.91 (no code) 03-18-2017 Not Availa ble 15:10-0400 ([id number]) Lymphocytes 2.43 10*3/uL (no code) 0.9 - 2.9 03-18-2017 Not Christie ilable (Bld) [#/Vol] 10*3/uL 15:10-0400 ([id number]) Lymphocytes/100 31.6 % (no code) 20 - 40 % 03-18-2017 Not Av ailable WBC (Bld) 15:10-0400 ([id number]) MCH (RBC) 30.8 pg (no code) 27 - 31 pg 03-18-2017 Not Availab le [Entitic mass] 15:10-0400 ([id number]) MCHC (RBC) 33.2 g/dL (no code) 32 - 36 g/dL 03-18-2017 Not Avai lable [Mass/Vol] 15:10-0400 ([id number]) MCV (RBC) 93.0 fL (no code) 80 - 100 fL 03-18-2017 Not Availa ble [Entitic vol] 15:10-0400 ([id number]) Monocytes (Bld) 0.6 10*3/uL (no code) 0.3 - 0.9 03-18-2017 Not Available [#/Vol] 10*3/uL 15:10-0400 ([id number]) Monocytes/100 7.9 % (no code) 2 - 8 % 03-18-2017 Not Avai lable WBC (Bld) 15:0400 ([id number]) Neutrophils 4.28 10*3/uL (no code) 1.7 - 7 10*3/uL 03-18-2017 N ot Available (Bld) [#/Vol] 15:0400 ([id number]) Neutrophils/100 55.6 % (no code) 40 - 60 % 03-18-2017 Not Av ailable WBC (Bld) 15:0400 ([id number]) Platelet mean 10.5 fL (H) 7.2 - 11.7 fL 03-18-2017 Not Available volume (Bld) 15:0 ([id number]) [Entitic vol] Platelets (Bld) 223 10*3/uL (no code) 150 - 450 03-18-2017 Not Available [#/Vol] 10*3/uL 15:0 ([id number]) RBC (Bld) 4.83 10*6/uL (no code) 4.2 - 6.1 03-18-2017 Not Avail able [#/Vol] 10*6/uL 15:0400 ([id number]) Rheumatoid [IU]/mL (no code) 0 - 15 [IU]/mL 03-18-2017 Not Av ailable factor Qn 15: (46863) RMSF, IGG, EIA no information (no code) 03-18-2017 Not Avai lable 15:0 ([id number]) MARGOTH MTN 0.44 (no code) 03-18-2017 Not Available SPOTTED FEVER, 15:0 ([id number]) IGM Streptolysin O [IU]/mL (no code) 0 - 200 [IU]/mL 03-18-2017 N ot Available Ab Qn 15:0 ([id number]) Urate [Mass/Vol] 4.3 mg/dL (no code) 3.5 - 7.2 mg/dL 03-18-2017 Not Available 15:10-0400 ([id number]) WBC (Bld) 7.70 10*3/uL (no code) 3.5 - 10.5 03-18-2017 Not Avai lable [#/Vol] 10*3/uL 15:10-0400 ([id number]) No panel information on 2017-02-08 FINAL CULTURE No Growth 48 (no code) 02-08-2017 Not Availab le RESULTS hours 20:05-0400 ([id number]) MEDIA PLATED Setup at 19:50 (no code) 02-08-2017 Not Availa ble on 02/08/2017 20:05-0400 ([id number]) PRELIM CULTURE No Growth 24 (no code) 02-08-2017 Not Availa ble RESULTS hours 20:05-0400 ([id number]) No panel information on 2017-01-07 Cholesterol 139 mg/dL (no code) 180 - 200 mg/dL 01-07-2017 Not Available [Mass/Vol] 10:44-0400 ([id number]) Cholesterol in 39 mg/dL (no code) 01-07-2017 Not Availab le HDL [Mass/Vol] 10:44-0400 ([id number]) Cholesterol in 83 mg/dL (no code) 0 - 100 mg/dL 01-07-2017 Not Available LDL [Mass/Vol] 10:44-0400 (32504) Cholesterol in 17 mg/dL (no code) 01-07-2017 Not Availab le VLDL [Mass/Vol] 10:44-0400 ([id number]) Cholesterol.tota 3.6 {ratio} (L) 01-07-2017 Not Avail able l/Cholesterol in 10:44-0400 ([id number]) HDL [Mass ratio] Triglyceride 87 mg/dL (no code) 0 - 150 mg/dL 01-07-2017 Not A vailable [Mass/Vol] 10:44-0400 ([id number]) No panel information on 2017-01-05 Albumin (U) <5.0 (no code) 01-05-2017 Not Available [Mass/Vol] 10:15-0400 ([id number]) Albumin BCG dye 4.0 (no code) 01-05-2017 Not Availa ble [Mass/Vol] 10:15-0400 ([id number]) ALP [Catalytic 71 U/L (no code) 44 - 147 U/L 01-05-2017 Not Available activity/Vol] 10: (93229) ALT [Catalytic 11 U/L (no code) 4 - 40 U/L 01-05-2017 Not Av ailable activity/Vol] 10: (96245) Anion gap 12 mmol/L (no code) 3 - 11 mmol/L 01-05-2017 Not Avai lable [Moles/Vol] 10: () AST [Catalytic 14 U/L (no code) 10 - 34 U/L 01-05-2017 Not A vailable activity/Vol] 10: () Average glucose 134 (H) 01-05-2017 Not Availa ble Estimated from : () glycated hemoglobin mass conc (Bld) Bacteria LM Ql Trace (A) 01-05-2017 Not Availab le (Urine sed) 10: () Basophils (Bld) 0.0 10*3/uL (no code) 0 - 0.3 10*3/uL 01-05-2017 Not Available [#/Vol] 10: () Basophils/100 0.50 % (no code) 0.5 - 1 % 01-05-2017 Not Avai lable WBC (Bld) 10: () Bilirubin 0.4 mg/dL (no code) 0.1 - 1.2 mg/dL 01-05-2017 Not Av ailable [Mass/Vol] 10: () Bilirubin N/A (A) 01-05-2017 Not Available Confirm Ql (U) 10: () Bilirubin Ql (U) no information (no code) 01-05-2017 Not Av ailable 10: (18894) Calcium 9.1 mg/dL (no code) 8.5 - 10.2 mg/dL 01-05-2017 Not A vailable [Mass/Vol] 10: (89589) Chloride 107 mmol/L (no code) 95 - 106 mmol/L 01-05-2017 Not A vailable [Moles/Vol] 10: (27447) Clarity (U) Clear (no code) 01-05-2017 Not Available 10: () Color (U) Yellow (no code) 01-05-2017 Not Available 10: () Creatinine 0.75 mg/dL (no code) 01-05-2017 Not Available [Mass/Vol] 10: () Eosinophils 0.4 10*3/uL (no code) 0.05 - 0.5 01-05-2017 Not Christie ilable (Bld) [#/Vol] 10*3/uL 10: () Eosinophils/100 5.4 % (no code) 1 - 4 % 01-05-2017 Not Av ailable WBC (Bld) 10: () Epithelial 0-5/HPF (A) 01-05-2017 Not Available cells.squamous 10: () LM.HPF (Urine sed) [#/Area] Erythrocyte 12.6 % (no code) 11.6 - 14.6 % 01-05-2017 Not Av ailable distribution 10: () width (RBC) [Ratio] GFR/1.73 sq 78 (no code) 90 - 120 01-05-2017 Not Availa ble M.predicted MDRD mL/min/{1.73_m2} mL/min/{1.73_m2} 10: () (S/P/Bld) [Vol rate/Area] Globulin (S) 3.0 g/dL (no code) 2 - 3.5 g/dL 01-05-2017 Not Av ailable [Mass/Vol] 10: (26048) Glucose 136 mg/dL (H) 60 - 125 mg/dL 01-05-2017 Not Christie ilable [Mass/Vol] 10: (21656) Glucose Test no information (no code) 01-05-2017 Not Availa ble strip (U) 10: () [Mass/Vol] HbA1c (Bld) 5.90 % (no code) 0 - 5.7 % 01-05-2017 Not Availa ble [Mass fraction] 10: (00835) HCO3 (P) 25 (no code) 01-05-2017 Not Available [Moles/Vol] 10: (24512) Hematocrit (Bld) 43.8 % (no code) 36.1 - 50.3 % 01-05-2017 N ot Available [Volume 10: (56455) fraction] Hemoglobin (Bld) 14.2 g/dL (no code) 12.1 - 17.2 g/dL 01-05-2017 Not Available [Mass/Vol] 10: (67265) Hemoglobin Ql no information (no code) 01-05-2017 Not Avail able (U) 10: (02472) Ketones (U) no information (no code) 01-05-2017 Not Availab le [Mass/Vol] 10:0 (21801) Leukocyte no information (no code) 01-05-2017 Not Availab le esterase Test 10: (95059) strip Ql (U) Lymphocytes 2.74 10*3/uL (no code) 0.9 - 2.9 01-05-2017 Not Christie ilable (Bld) [#/Vol] 10*3/uL 10:0400 (70570) Lymphocytes/100 37.2 % (no code) 20 - 40 % 01-05-2017 Not Av ailable WBC (Bld) 10:0400 ([id number]) MCH (RBC) 30.9 pg (no code) 27 - 31 pg 01-05-2017 Not Availab le [Entitic mass] 10:0400 (63071) MCHC (RBC) 32.4 g/dL (no code) 32 - 36 g/dL 01-05-2017 Not Avai lable [Mass/Vol] 10:150400 (32748) MCV (RBC) 95.2 fL (no code) 80 - 100 fL 01-05-2017 Not Availa ble [Entitic vol] 10:0400 (98347) Monocytes (Bld) 0.6 10*3/uL (no code) 0.3 - 0.9 01-05-2017 Not Available [#/Vol] 10*3/uL 10:150400 (37920) Monocytes/100 8.7 % (no code) 2 - 8 % 01-05-2017 Not Avai lable WBC (Bld) 10: (12416) Neutrophils 3.55 10*3/uL (no code) 1.7 - 7 10*3/uL 01-05-2017 N ot Available (Bld) [#/Vol] 10:0 (04434) Neutrophils/100 48.2 % (no code) 40 - 60 % 01-05-2017 Not Av ailable WBC (Bld) 10: (06236) Nitrite Ql (U) no information (no code) 01-05-2017 Not Avai lable 10: (90369) Osmolality Calc 292 (no code) 01-05-2017 Not Availa ble [Osmolality] 10: (78681) pH (U) 6.0 [pH] (no code) 4.6 - 8 [pH] 01-05-2017 Not Avail able 10: (65050) Platelet mean 11.1 fL (H) 7.2 - 11.7 fL 01-05-2017 Not Available volume (Bld) 10: (42806) [Entitic vol] Platelets (Bld) 198 10*3/uL (no code) 150 - 450 01-05-2017 Not Available [#/Vol] 10*3/uL 10:0 (42798) Potassium 4.0 mmol/L (no code) 3.7 - 5.2 mmol/L 01-05-2017 Not Available [Moles/Vol] 10:0 (36625) Protein (U) no information (no code) 0 - 20 mg/dL 01-05-2017 No t Available [Mass/Vol] 10:0 (01761) Protein 7.0 g/dL (no code) 6.4 - 8.3 g/dL 01-05-2017 Not Christie ilable [Mass/Vol] 10:0 (57022) RBC (Bld) 4.60 10*6/uL (no code) 4.2 - 6.1 01-05-2017 Not Avail able [#/Vol] 10*6/uL 10:0400 (09668) RBC LM.HPF Rare/HPF (A) 01-05-2017 Not Available (Urine sed) 10:0 (10982) [#/Area] Sodium 140 mmol/L (no code) 135 - 145 mmol/L 01-05-2017 Not Available [Moles/Vol] 10: (70558) Specific gravity 1.010 (no code) 01-05-2017 Not Avail able (U) [Rel 10: (96529) density] Urea nitrogen 15 mg/dL (no code) 7 - 20 mg/dL 01-05-2017 Not A vailable [Mass/Vol] 10: (28672) Urine Volume Urine Volume (no code) 01-05-2017 Not Availabl e Sufficient 10: (75955) (10mL) Urobilinogen Qn 0.2 (A) 01-05-2017 Not Availa ble (U) {Tsoin'U}/dL 10:0 (22041) WBC (Bld) 7.37 10*3/uL (no code) 3.5 - 10.5 01-05-2017 Not Avai lable [#/Vol] 10*3/uL 10:0 (71736) WBC LM.HPF Few/HPF (A) 01-05-2017 Not Available (Urine sed) 10: (86295) [#/Area] no information Urine Saved if (A) 01-05-2017 Not Avai lable Culture Needed 10:0 (45423) (48hrs from time of collection) Vital Signs Vital Sign Value Interpretation Reference Date Time Care Prov ider Facility (Normalized) (Normalized) Range BMI (Body Mass 32.23 kg/m2 (no code) 15 - 25 kg/m2 07-12-2018 IN BARBARA Community Index) 14:20-[address] ([address]92) BMI (Body Mass 31.77 kg/m2 (no code) 15 - 25 kg/m2 05-26-2018 KR AUDREY Community Index) 16:30-0400 [facility] [id number] [facility] (15994) BMI (Body Mass 31.87 kg/m2 (no code) 15 - 25 kg/m2 05-20-2018 IVON SARINA REYNOLDS Community Index) 19:40-[address] ([address]36) BMI (Body Mass 32.32 kg/m2 (no code) 15 - 25 kg/m2 05-16-2018 [facility]) 17:20-[address] [place] [address] (66860) BMI (Body Mass 32.38 kg/m2 (no code) 15 - 25 kg/m2 05-14-2018 IVON REYNOLDS Community Index) 13:25-[address] (93896) BMI (Body Mass 32.38 kg/m2 (no code) 15 - 25 kg/m2 05-07-2018 Alphonse BRIDGES Community Index) 17:50-[address] [place] [address] (75537) BMI (Body Mass 32.38 kg/m2 (no code) 15 - 25 kg/m2 05-03-2018 M ICHELE BLANCAS Community Index) 10:40-[address] [place] [address] (08506) BMI (Body Mass 32.93 kg/m2 (no code) 15 - 25 kg/m2 04-14-2018 M ICHELE BLANCAS Community Index) 10:20-[address] [place] [address] (70858) BMI (Body Mass 32.66 kg/m2 (no code) 15 - 25 kg/m2 04-09-2018 KR ISTIN Community Index) 13:25-[address] ([address]161) BMI (Body Mass 32.38 kg/m2 (no code) 15 - 25 kg/m2 04-06-2018 IVON SARINA REYNOLDS Community Index) 13:25-[address] (40746) BMI (Body Mass 32.23 kg/m2 (no code) 15 - 25 kg/m2 03-07-2018 KR ISTIN Community Index) 10:35-[address] (75221) BMI (Body Mass 32.76 kg/m2 (no code) 15 - 25 kg/m2 02-22-2018 M ICHELE BLANCAS Community Index) 16:00-[address] [place] [address] (20421) BMI (Body Mass 32.87 kg/m2 (no code) 15 - 25 kg/m2 01-21-2018 Edith MCCRACKEN Community Index) 11:10-[address] [place] [address] (51859) BMI (Body Mass 33.14 kg/m2 (no code) 15 - 25 kg/m2 08-12-2017 M KRZYSZTOF BLANCAS Community Index) 16:00-[address] [place] [address] (83629) Body 98.9 [degF] (no code) 97.8 - 99.0 07-12-2018 EDIE Community Temperature [degF] 14:20-0400 [facility] [address] [place] [address] ([address]) Body 97.4 [degF] (no code) 97.8 - 99.0 05-26-2018 PATRICK Community Temperature [degF] 16:30-0400 [facility] [address] [facility] ([id number]) Body 97.8 [degF] (no code) 97.8 - 99.0 05-20-2018 [facility] Temperature [degF] 19:40-[address] ([address]) Body 98.9 [degF] (no code) 97.8 - 99.0 05-16-2018 EDIE CAMEJOY Community Temperature [degF] 17:20-[address] [place], [place] [address]e [facility] (54092) Body 96.6 [degF] (no code) 97.8 - 99.0 05-14-2018 TONYA Community Temperature [degF] 13:25-[address] [facility] ([id number]) Body 97.7 [degF] (no code) 97.8 - 99.0 05-07-2018 BUD CRUMP Community Temperature [degF] 17:50-[id number] [place], [place] [address] [facility] (90716) Body 98 [degF] (no code) 97.8 - 99.0 05-03-2018 EDIE CARE Community Temperature [degF] 10:40-[id number] [place], [place] [address] r [facility] ([id number]) Body 97.6 [degF] (no code) 97.8 - 99.0 04-09-2018 PATRICK [facility] Temperature [degF] 13:25-0400 [id number] ([address]) Body 98.3 [degF] (no code) 97.8 - 99.0 04-06-2018 TONYA Community Temperature [degF] 13:25-[address] [place] [address] nter [facility] (49184) Body 98.4 [degF] (no code) 97.8 - 99.0 03-07-2018 PATRICK [facility] Temperature [degF] 10:35-04[address] [place] [id number] ([address]) Body 98.3 [degF] (no code) 97.8 - 99.0 02-22-2018 EDIE SUSIE WILLIAMSON [facility] Temperature [degF] 16:00-[address] [place], [place] [address] [facility] (86317) Body 97.5 [degF] (no code) 97.8 - 99.0 01-21-2018 ALIREZA SANTOS [facility] Temperature [degF] 11:10-[address] ([address]) Body 97.8 [degF] (no code) 97.8 - 99.0 08-12-2017 EDIE WILLIAMSON [facility] Temperature [degF] 16:00-[address] [place], [place] [address] [facility] (10025) Height 172.72 cm (no code) cm 01-03-2019 ROSA [facility] mmunity 18:00-[address] [place] [address] (80032) Height 172.72 cm (no code) cm 07-12-2018 EDIE Urenau nity 14:20-[address] (21083) Height 172.72 cm (no code) cm 05-26-2018 PATRICK Commu nity 16:30-[address] [place] [id number] ([address]) Height 172.72 cm (no code) cm 05-20-2018 RJ REYNOLDS Comm unity 19:40-[address] (93383) Height 172.72 cm (no code) cm 05-16-2018 EDIE BLANCAS [facility] 17:20-[address] [place] [address] (51163) Height 172.72 cm (no code) cm 05-14-2018 RJ REYNOLDS Comm unity 13:25-[address] (78865) Height 172.72 cm (no code) cm 05-07-2018 BUD [facility] 17:50-[address] [place] [address] (32915) Height 172.72 cm (no code) cm 05-03-2018 EDIE [facility] 10:40-[address] [place] [address] (02143) Height 172.72 cm (no code) cm 04-14-2018 EDIE [facility] 10:20-[address] [place] [address] (68439) Height 172.72 cm (no code) cm 04-09-2018 PATRICK Urenau nity 13:25-[address] (33396) Height 172.72 cm (no code) cm 04-06-2018 RJ REYNOLDS Comm unity 13:25-[address] (03681) Height 172.72 cm (no code) cm 03-07-2018 PATRICK Urenau nity 10:35-[address] (16762) Height 172.72 cm (no code) cm 02-22-2018 EDIE [facility] 16:00-[address] [place] [address] (84448) Height 172.72 cm (no code) cm 01-21-2018 ALIREZA MCCRACKEN Community 11:10-[address] (17680) Height 172.72 cm (no code) cm 08-12-2017 [facility] 16:00-[address] [place] [address] (59791) Pulse Oximetry 100 % (no code) 95 - 100 % 01-03-2019 ROSA Nuno [facility] 18:00-[address] [place] [address] (95898) Weight 96.16 kg (no code) kg 07-12-2018 EDIE Commun ity 14:20-[address] (00419) Weight 94.8 kg (no code) kg 05-26-2018 PATRICK Commun ity 16:30-[address] (31931) Weight 95.07 kg (no code) kg 05-20-2018 TONYA Commu nity 19:40-[address] (56421) Weight 96.44 kg (no code) kg 05-16-2018 EDIE BLANCAS C ommunity 17:20-[address] [place] [address] (06637) Weight 96.62 kg (no code) kg 05-14-2018 TONYA Commu nity 13:25-[address] (17239) Weight 96.62 kg (no code) kg 05-07-2018 BUD Craig mmunity 17:50-[address] [place] [address] (47056) Weight 96.62 kg (no code) kg 05-03-2018 EDIE BLANCAS C ommunity 10:40-[address] [place] [address] (02616) Weight 98.25 kg (no code) kg 04-14-2018 EDIE BLANCAS C ommunity 10:20-[address] [place] [address] (85114) Weight 97.43 kg (no code) kg 04-09-2018 PATRICK Commun ity 13:25-[address] (34251) Weight 96.62 kg (no code) kg 04-06-2018 TONYA Commu nity 13:25-[address] (48154) Weight 96.16 kg (no code) kg 03-07-2018 PATRICK Velez itmargie 10:35-0400 [facility] [address] [facility] (09011) Weight 97.75 kg (no code) kg 02-22-2018 EDIE Mcnair ommunity 16:00-[address] [place] [address] (38594) Weight 98.07 kg (no code) kg 01-21-2018 ALIREZA Mcnair ommunity 11:10-[id number] [place] [address] (04853) Weight 98.88 kg (no code) kg 08-12-2017 EDIE Mcnair ommunity 16:00-[address] [place] [address] (30665) Interventions No Information Plan of Treatment Normalized Care Care Detail Care Activity Date Care Provider F acility Activity (CHM) [facility] 11-04-2018 [facility] 6 [phone] [facility] ([id number]) (CH) [facility] ([id number]) Patient Education no information no information [facility] [phone] [facility] ([id number]) Patient encounter [facility] 12-28-2019 ROSA ALIS [phone] 2 [facility] ([id number]) Patient encounter [facility] 12-08-2019 [facility] 6676 2 [facility] ([id number]) Patient referral no information no information [facility] [address] [facility] ([id number]) Goals Patient Goal Desired Goal no information no information Social History Normalized Code Original Code Date Value Tobacco smoking status Tobacco smoking status no information Smokes tobacco daily MOIS NHIS (finding) no information no information 09-07-2019 Denies Use no information no information 02-24-2011 No no information no information 09-07-2019 Denies no information no information 09-07-2019 Current Everyda y Smoker no information no information 09-07-2019 Cigarettes Sex Assigned At Sex Assigned At no information F emale Functional Status The data below is from unstructured sourcesNo functional status information available.No functional status information available.No functional status information available.No functional status information available.No functional status information available.No functional status info rmation available.No functional status information available.No functional statu s information available.No functional status information available.No functional status information available.No functional status information available.No func tional status information available.No functional status information available.N o Functional Status information availableNo Functional Status information availa ble Mental Status The data below is from unstructured sourcesNo Mental Status Information Available Encounters Encounter Normalized Encounter Encounter Diagnosis Care Provi uche Organization Date Type 05-16-2018 (ACUTE) Acute Visit Acute cystitis with EDIE MADDOX (no [facility] - hematuria phone) EDIE Sutton (no jenny ne) 05-16-2018 (no phone) EDIE Sutton (no phone) 05-16-2018 02-21-2019 ([facility]) Chronic Health Type 2 diabetes ROSA SNELL (n o phone) [facility] - Maintenance mellitus with other (no phone ) 02-21-2019 specified complication - 02-21-2019 01-20-2019 ([facility]) Chronic Health Type 2 diabetes ROSA (n o phone) [facility] - Maintenance mellitus without (no phone) 01-20-2019 complications - 01-20-2019 11-04-2018 ([facility]) Chronic Health Spondylolisthesis, ROSA SNELL (no phone) [facility] - Maintenance site unspecified (no phone) 11-04-2018 - 11-04-2018 06-27-2018 ([facility]) Chronic Health no information EDIE BLANCAS ( no [facility] - Maintenance phone) (no phone) 06-27-2018 - 06-27-2018 08-02-2018 (IPT) Internal PCP Type 2 diabetes ROSA ALIS (no phone) [facility] - Transfer mellitus with other (no phone ) 08-02-2018 specified complication - 08-02-2018 05-12-2018 (nv) Nurse Visit no information EDIE BLANCAS (no [facility] - phone) EDIE Sutton (no phone) 05-12-2018 (no phone) EDIE Sutton (no phone) 05-12-2018 07-04-2018 (PT-F/U) Physical no information KHADIJAH CONDE (no [facility] - Therapy f/u phone) (no phone) 07-04-2018 - 07-04-2018 01-03-2019 (SD) Same Day Pain in left shoulder ROSA SNELL (no phone) [facility] - (no phone) 01-03-2019 - 01-03-2019 05-06-2019 (WALK-IN) Walk-In Care Acute suppurative MARYA SANTA NOT (no [facility] - otitis media without phone) CARE (no phone) 05-06-2019 spontaneous rupture of - ear drum, left ear 05-06-2019 05-03-2019 (WALK-IN) Walk-In Care Other fatigue RUI MELENDREZ (no [facility] - phone) CARE (no phone) 05-03-2019 - 05-03-2019 04-25-2019 (WALK-IN) Walk-In Care Localized enlarged RUI RIGGS (no [facility] - lymph nodes phone) CARE (no phone) 04-25-2019 - 04-25-2019 02-20-2019 (WALK-IN) Walk-In Care Other chest pain ELIOT CANALES IA (no [facility] - phone) CARE (no phone) 02-20-2019 - 02-20-2019 01-14-2019 (WALK-IN) Walk-In Care Pain in left arm ELIOT CANALES [place] (no [facility] - phone) CARE (no phone) 01-14-2019 - 01-14-2019 12-21-2018 (WALK-IN) Walk-In Care Neuralgia and KRISS LIVINGSTON (no [facility] - neuritis, unspecified phone) CARE (no phone) 12-21-2018 - 12-21-2018 05-26-2018 (WALK-IN) Walk-In Care Non-pressure chronic PATRICK ROBERT (no [facility] - ulcer of buttock phone) PATRICK CARE (no phon e) 05-26-2018 limited to breakdown zzCOLLINS (no jenny ne) - of skin PATRICK Ro ( no 05-26-2018 phone) PATRICK Ro (no phone) 05-20-2018 (WALK-IN) [facility] Fever, unspecified RJ PENA (no [facility] - phone) CARE (no phone) 05-20-2018 - 05-20-2018 05-14-2018 (WALK-IN) [facility] Dysuria RJ TANNER ON (no [facility] - phone) CARE (no phone) 05-14-2018 - 05-14-2018 10-09-2019 [facility] Acute upper BEAU CAYLA (no [facility] respiratory infection, phone) CARE (n o phone) unspecified 09-30-2019 [facility] Acute suppurative MARYA BERNOT (no [facility] otitis media without phone) CARE (no phone) spontaneous rupture of ear drum, bilateral 08-12-2019 [facility] Bronchitis, not BEAU KULKARNI (no [facility] specified as acute or phone) CARE (no phone) chronic 08-02-2019 [facility] Pain in left foot [place] A (no [facility] phone) CARE (no phone) 07-12-2019 [facility] Other acute MARYA BERNOT (no [facility] nonsuppurative otitis phone) CARE (no phone) media, left ear 05-08-2019 [facility] Acute bronchitis, ELIOT RIVERA (no [facility] - CARE unspecified phone) CARE (no phone ) 05-08-2019 - 05-08-2019 10-17-2019 [facility] Type 2 diabetes ARLIN SY (no [facility] mellitus without phone) (no phone) complications 08-23-2019 [facility] Lesion of plantar ROSA ALIS (no phone) [facility] nerve, left lower limb (no phone) 06-09-2019 [facility] Type 2 diabetes ROSA ALIS ( no phone) [facility] - mellitus without (no phone) 06-09-2019 complications - 06-09-2019 05-25-2019 [facility] Mastodynia ARLIN PRICE (no [facility] - phone) (no phone) 05-25-2019 - 05-25-2019 06-02-2018 [facility] no information EDIE BLANCAS (no [facility] - phone) EDIE zzCAREY (no phone) 06-02-2018 (no phone) EDIE - zzCAREY (no phone) 06-02-2018 05-27-2018 [facility] no information EDIE BLANCAS (no [facility] - phone) EDIE zzCAREY (no phone) 05-27-2018 (no phone) EDIE - zzCAREY (no phone) 05-27-2018 05-16-2018 [facility] no information EDIE BLANCAS (no [facility] - phone) EDIE zzCAREY (no phone) 05-16-2018 (no phone) EDIE - zzCAREY (no phone) 05-16-2018 05-10-2018 [facility] Spondylosis without EDIE C AREY (no [facility] - myelopathy or phone) EDIE zzCAREY (no jenny ne) 05-10-2018 radiculopathy, (no phone) EDIE - cervical region zzCAREY (no phone) 05-10-2018 08-11-2018 Consultation for Other spondylosis with ROSA ALIS (no phone) [facility] - laboratory medicine radiculopathy, (no phone ) 08-11-2018 cervical region - 08-11-2018 09-07-2019 Emergency department no information (no phone) [facility] patient [facility] (no phone) 09-07-2019 09-06-2019 Emergency department no information no name (no jenny ne) no organization name - patient visit (no phone) 09-07-2019 09-15-2018 Emergency department no information TRAVIS Cunha APRN BA SILVIA no organization name - patient visit Work Phone: (no phone) 09-15-2018 05-01-2018 Emergency department no information KADIE RODRIGUEZ INS no organization name - patient visit Work Phone: (no phone) 05-01-2018 04-11-2018 Emergency department no information TRAVIS VEGA no organization name - patient visit Work Phone: (no phone) 04-12-2018 TRAVIS CANDELARIA 12-12-2017 Emergency department no information no name (no jenny ne) no organization name - patient visit (no phone) 12-12-2017 07-12-2018 Follow-up encounter Malignant neoplasm of EDIE Nash (no [facility] - left kidney, except phone) EDIE BLANCAS (no phone) 07-12-2018 renal pelvis (no phone) EDIE Sutton (no phone) 07-12-2018 07-19-2018 Patient encounter no information no name (no phone) no organization name (no phone) 05-26-2018 Patient encounter no information no name (no phone) no organization name (no phone) 05-20-2018 Patient encounter no information no name (no phone) no organization name (no phone) 05-16-2018 Patient encounter no information no name (no phone) no organization name (no phone) 05-14-2018 Patient encounter no information no name (no phone) no organization name (no phone) 05-12-2018 Patient encounter no information no name (no phone) no organization name (no phone) 05-07-2018 Patient encounter no information no name (no phone) no organization name (no phone) 05-03-2018 Patient encounter no information no name (no phone) no organization name (no phone) 05-01-2018 Patient encounter no information no name (no phone) no organization name (no phone) 04-21-2018 Patient encounter no information EDIE Butler APRN CAR EY no organization name Work Phone: (no phone) NEGATED Patient encounter no information no name (no phone) no organization name 04-14-2018 (no phone) 04-11-2018 Patient encounter no information no name (no phone) no organization name (no phone) 04-09-2018 Patient encounter no information no name (no phone) no organization name (no phone) 04-06-2018 Patient encounter no information no name (no phone) no organization name (no phone) 03-07-2018 Patient encounter no information no name (no phone) no organization name (no phone) 03-03-2018 Patient encounter no information no name (no phone) no organization name (no phone) 02-22-2018 Patient encounter no information no name (no phone) no organization name (no phone) 02-18-2018 Patient encounter no information no name (no phone) no organization name (no phone) 01-21-2018 Patient encounter no information no name (no phone) no organization name (no phone) 12-28-2017 Patient encounter no information no name (no phone) no organization name (no phone) 12-12-2017 Patient encounter no information no name (no phone) no organization name (no phone) 11-03-2017 Patient encounter no information no name (no phone) no organization name (no phone) 10-28-2017 Patient encounter no information no name (no phone) no organization name (no phone) NEGATED Patient encounter no information no name (no phone) no organization name 10-26-2017 (no phone) 09-29-2017 Patient encounter no information no name (no phone) no organization name (no phone) 09-27-2017 Patient encounter no information no name (no phone) no organization name (no phone) 09-24-2017 Patient encounter no information no name (no phone) no organization name (no phone) 08-27-2017 Patient encounter no information no name (no phone) no organization name (no phone) 08-18-2017 Patient encounter no information no name (no phone) no organization name - (no phone) 08-18-2017 08-06-2017 Patient encounter no information no name (no phone) no organization name - (no phone) 08-25-2017 07-10-2017 Patient encounter no information no name (no phone) no organization name - (no phone) 07-10-2017 05-18-2017 Patient encounter no information no name (no phone) no organization name - (no phone) 05-18-2017 05-27-2015 Patient encounter no information no name (no phone) no organization name (no phone) 05-21-2015 Patient encounter no information no name (no phone) no organization name (no phone) 04-11-2013 Patient encounter no information no name (no phone) no organization name (no phone) 05-02-2012 Patient encounter no information no name (no phone) no organization name (no phone) 12-28-2019 Patient encounter no information ROSA D ALIS (no [facility]) (no phone) [facility] (no phone) 11-13-2019 Patient encounter no information SARTHAK COELLO MD [facility] (no phone) [facility] 12-08-2019 (no phone) 11-06-2019 Patient encounter no information no name (no phone) no organization name procedure (no phone) 11-02-2019 Patient encounter no information no name (no phone) no organization name procedure (no phone) 10-31-2019 Patient encounter no information no name (no phone) no organization name procedure (no phone) 10-27-2019 Patient encounter no information no name (no phone) no organization name procedure (no phone) 10-25-2019 Patient encounter no information no name (no phone) no organization name procedure (no phone) 10-20-2019 Patient encounter no information no name (no phone) no organization name procedure (no phone) 10-17-2019 Patient encounter no information no name (no phone) no organization name procedure (no phone) 10-09-2019 Patient encounter no information no name (no phone) no organization name procedure (no phone) 09-30-2019 Patient encounter no information no name (no phone) no organization name procedure (no phone) 09-06-2019 Patient encounter no information no name (no phone) no organization name procedure (no phone) 08-31-2019 Patient encounter no information (no phone) Jessica hensley [facility] (no phone) 08-31-2019 Patient encounter no information no name (no phone) no organization name procedure (no phone) 08-24-2019 Patient encounter no information no name (no phone) no organization name procedure (no phone) 08-23-2019 Patient encounter no information no name (no phone) no organization name procedure (no phone) 08-12-2019 Patient encounter no information no name (no phone) no organization name procedure (no phone) 08-02-2019 Patient encounter no information no name (no phone) no organization name procedure (no phone) 06-09-2019 Patient encounter no information no name (no phone) no organization name procedure (no phone) 06-09-2019 Patient encounter no information no name (no phone) no organization name procedure (no phone) 05-31-2019 Patient encounter no information no name (no phone) no organization name procedure (no phone) 05-31-2019 Patient encounter no information no name (no phone) no organization name procedure (no phone) 05-25-2019 Patient encounter no information no name (no phone) no organization name procedure (no phone) 05-25-2019 Patient encounter no information no name (no phone) no organization name procedure (no phone) 05-08-2019 Patient encounter no information no name (no phone) no organization name procedure (no phone) 05-08-2019 Patient encounter no information no name (no phone) no organization name procedure (no phone) 05-06-2019 Patient encounter no information no name (no phone) no organization name procedure (no phone) 05-03-2019 Patient encounter no information no name (no phone) no organization name procedure (no phone) 05-03-2019 Patient encounter no information no name (no phone) no organization name procedure (no phone) 04-25-2019 Patient encounter no information no name (no phone) no organization name procedure (no phone) 04-14-2019 Patient encounter no information no name (no phone) no organization name - procedure (no phone) 04-14-2019 04-12-2019 Patient encounter no information no name (no phone) no organization name procedure (no phone) 04-07-2019 Patient encounter no information no name (no phone) no organization name procedure (no phone) 04-07-2019 Patient encounter no information no name (no phone) no organization name procedure (no phone) 04-04-2019 Patient encounter no information no name (no phone) no organization name procedure (no phone) 03-31-2019 Patient encounter no information no name (no phone) no organization name procedure (no phone) 03-29-2019 Patient encounter no information no name (no phone) no organization name procedure (no phone) 03-17-2019 Patient encounter no information no name (no phone) no organization name procedure (no phone) 03-14-2019 Patient encounter no information no name (no phone) no organization name procedure (no phone) 03-06-2019 Patient encounter no information no name (no phone) no organization name procedure (no phone) 03-06-2019 Patient encounter no information no name (no phone) no organization name procedure (no phone) 03-02-2019 Patient encounter no information no name (no phone) no organization name procedure (no phone) 02-27-2019 Patient encounter no information no name (no phone) no organization name procedure (no phone) 02-23-2019 Patient encounter no information no name (no phone) no organization name procedure (no phone) 02-21-2019 Patient encounter no information no name (no phone) no organization name procedure (no phone) 02-20-2019 Patient encounter no information no name (no phone) no organization name procedure (no phone) 02-15-2019 Patient encounter no information no name (no phone) no organization name procedure (no phone) 01-20-2019 Patient encounter no information no name (no phone) no organization name procedure (no phone) 01-16-2019 Patient encounter no information no name (no phone) no organization name procedure (no phone) 01-10-2019 Patient encounter Encounter for general ROSA ALIS (no phone) [facility] - procedure adult medical (no phone) 01-10-2019 examination without - abnormal findings 01-10-2019 01-03-2019 Patient encounter no information no name (no phone) no organization name procedure (no phone) 12-29-2018 Patient encounter no information no name (no phone) no organization name procedure (no phone) 12-21-2018 Patient encounter no information no name (no phone) no organization name procedure (no phone) 12-12-2018 Patient encounter no information no name (no phone) no organization name procedure (no phone) 11-22-2018 Patient encounter no information no name (no phone) no organization name procedure (no phone) 11-04-2018 Patient encounter no information no name (no phone) no organization name procedure (no phone) 09-15-2018 Patient encounter no information no name (no phone) no organization name procedure (no phone) 08-03-2017 Patient encounter no information no name (no phone) no organization name - procedure (no phone) 08-04-2017 07-31-2017 Patient encounter no information no name (no phone) no organization name - procedure (no phone) 08-01-2017 07-12-2017 Patient encounter no information no name (no phone) no organization name procedure (no phone) 06-29-2017 Patient encounter no information no name (no phone) no organization name - procedure (no phone) 06-29-2017 03-24-2017 Patient encounter no information no name (no phone) no organization name - procedure (no phone) 03-25-2017 03-18-2017 Patient encounter no information no name (no phone) no organization name - procedure (no phone) 03-19-2017 02-15-2017 Patient encounter no information no name (no phone) no organization name - procedure (no phone) 03-10-2017 02-08-2017 Patient encounter no information no name (no phone) no organization name - procedure (no phone) 02-09-2017 02-05-2017 Patient encounter no information no name (no phone) no organization name - procedure (no phone) 02-05-2017 01-07-2017 Patient encounter no information no name (no phone) no organization name - procedure (no phone) 2017 01-05-2017 Patient encounter no information no name (no phone) no organization name - procedure (no phone) 01-06-2017 11-01-2019 Telephone encounter Spinal stenosis, ROSA ALIS (n o phone) [facility] [place] cervical region (no phone) 11-01-2019 - 11-01-2019 10-02-2019 Telephone encounter Spinal stenosis, ROSA ALIS (n o phone) [facility] [place] cervical region (no phone) 10-02-2019 - 10-02-2019 09-11-2019 Telephone encounter no information ROSA ALIS (no phone) [facility] (no phone) 09-07-2019 Telephone encounter no information ROSA ALIS (no phone) [facility] (no phone) 08-31-2019 Telephone encounter Spinal stenosis, ROSA ALIS (n o phone) [facility] [place] cervical region (no phone) 08-31-2019 - 08-31-2019 08-24-2019 Telephone encounter no information ROSA ALIS (no phone) [facility] (no phone) 08-23-2019 Telephone encounter no information ROSA ALIS (no phone) [facility] (no phone) 08-03-2019 Telephone encounter Spinal stenosis, ARLIN RAMSEY AM (no [facility] - cervical region phone) ROSA ALIS (no (no ph one) 08-03-2019 phone) - 08-03-2019 07-05-2019 Telephone encounter Spinal stenosis, ROSA ALIS (n o phone) [facility] - cervical region (no phone) 07-05-2019 - 07-05-2019 06-06-2019 Telephone encounter Spinal stenosis, ROSA ALIS (n o phone) [facility] - cervical region (no phone) 06-06-2019 - 06-06-2019 05-15-2019 Telephone encounter no information ELIOT RIVERA (n o [facility] - phone) CARE (no phone) 05-15-2019 - 05-15-2019 05-08-2019 Telephone encounter Spinal stenosis, ROSA ALIS (n o phone) [facility] - cervical region (no phone) 05-08-2019 - 05-08-2019 04-25-2019 Telephone encounter no information ROSA ALIS (no phone) [facility] - (no phone) 04-25-2019 - 04-25-2019 04-06-2019 Telephone encounter Spinal stenosis, ROSA ALIS (n o phone) [facility] - cervical region (no phone) 04-06-2019 - 04-06-2019 03-06-2019 Telephone encounter Spinal stenosis, ROSA ALIS (n o phone) [facility] - cervical region (no phone) 03-06-2019 - 03-06-2019 02-14-2019 Telephone encounter Type 2 diabetes ROSA ALIS (no phone) [facility] - mellitus without (no phone) 02-14-2019 complications - 02-14-2019 02-06-2019 Telephone encounter Allergic rhinitis due ROSA KI NG (no phone) [facility] - to pollen (no phone) 02-06-2019 - 02-06-2019 02-03-2019 Telephone encounter Spinal stenosis, ROSA ALIS (n o phone) [facility] - cervical region (no phone) 02-03-2019 - 02-03-2019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
--- OUTSIDE RECORDS SUMMARY | 2020-01-21 19:03 | XMS REPORT ---
Author Author Amy SNELL Organization [facility] [place] Address [address] [place] [address] Care Team Providers Care Statistical Consultant Name Role Phone KING ROSA Unavailable PROBLEMS Type Condition ICD9-CM Code MBV29-MP Code Onset Dates Condition S tatus SNOMED Code Problem Cervical stenosis of spinal canal M48.02 Active 41249990 Problem Left kidney mass N28.89 Active 309 123304 Problem Chronic esophagogastric ulcer K25.7 Active 92721747 Problem Lumbago with sciatica, left side M54.42 Active 189624185 Problem Type 2 diabetes mellitus wit hout complication, without long-term current use of insulin E11.9 Active 215175407 Problem Seasonal allergic rhinitis due to pollen J30.1 Active 95739314 Problem Metabolic disorder, unspecified E88.9 Active 023085872 Problem 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 Ac tive 890165321 Problem Right renal mass N28.89 Active 309 521381 Problem Body mass index (BMI) of 32.0-32.9 in adult Z68.32 Active 568671565 Problem Pulmonary nodule R91.1 Active 427 736844 Problem Major depressive disorder, recurrent episode, moderate F33.1 Active 048132907 Problem Other obesity due to excess calories E66.09 Active 528547317 Problem 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 3 Active 839838577 Problem GERD without esophagitis K21.9 Activ e 651984621 Problem Renal cell carcinoma of left kidney C64.2 Active 105793625 Problem Hyperlipidemia, unspecified E78.5 Ac tive 46798792 Problem Type 2 diabetes mellitus with other specified complication E11.69 Active 63670418414750 Problem Other chronic pain G89.29 Active 8 8803177 Problem Essential hypertension I10 Active 05290497 Problem 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 Active 00459437 Problem Lumbago with sciatica, right side M54.41 Active 385023476226375 Problem Pain syndrome, chronic G89.4 Active 320904212 Problem Other spondylosis with radiculopathy, cervical region M47.22 Active 152615819 Problem Other spondylosis with myelopathy, cervical region M47.12 Active 89304939 Problem Osteoarthritis of spine with radiculopathy, cervical regio n M47.22 Active 914118706 Problem S/p nephrectomy Z90.5 Active 1616 19878 ALLERGIES No Information ENCOUNTERS Encounter Location Date Diagnosis [place] [address] [address] Dec, [place] [address] [address] Nov, [place] [address] [address] Oct, [place] [address] [address] Oct, Cervical stenosis of spinal canal M48.02 [place] [address] [address] 31 Sep, 2019 Type 2 diabetes mellitus without complic ation, without long-term current use of insulin E11.9 ; Essential hypertension I10 and Non-recurrent acute suppurative otitis media of left ear without spontaneous rupture of tympanic membrane H66.002 [facility] [place] [address] N [facility] [id number] [address] [place] [address] Sep, Viral upper respiratory trac t infection J06.9 [place] [address] [address] Sep, Cervical stenosis of spinal canal M48.02 [place] [address] [address] Sep, [place] [address] [address] Sep, [facility] IN [facility] [address] [facility] [id number] [address] [place] [address] 14 Sep, 2019 Non-recurrent acute suppurat cheri otitis media of both ears without spontaneous rupture of tympanic membranes H66.003 [place] [address] [address] Aug, [place] [address] [address] Aug, [place] [address] [address] Aug, [place] [address] [address] Aug, [place] [address] [address] Aug, Cervical stenosis of spinal canal M48.02 [place] [address] [address] Aug, [place] [address] [address] Aug, [place] [address] [address] Aug, 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 [place] [id number] [address] [place] [address] Jul, Bronchitis J40 and Sore thro at J02.9 [place] [address] [address] Jul, Cervical stenosis of spinal canal M48.02 [place] [address] [address] Jul, [facility] [address] [place] [id number] [address] [place] [address] Jul, Foot pain, left M79.672 and 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 [facility] [place] [id number] [address] [place] [address] Jun, Acute effusion of left ear H 65.192 and Vertigo R42 [place] [address] [address] Jun, Cervical stenosis of spinal canal M48.02 [place] [address] [address] May, Type 2 diabetes mellitus without complic ation, without long-term current use of insulin E11.9 ; Encounter for immunization Z23 ; Cervical stenosis of spinal canal M48.02 and Major depressive disorder, recurrent episode, moderate F33.1 [place] [address] [address] May, Cervical stenosis of spinal canal M48.02 [place] [address] [address] May, Breast pain, left N64.4 [facility] [place] [id number] [address] [place] [address] Apr, [facility] IN [address] [address] Apr, Acute bronchitis, unspecifie d organism J20.9 ; Chest pain, unspecified type R07.9 and Shortness of breath R06.02 [place] [address] [address] Apr, Cervical stenosis of spinal canal M48.02 [facility] [address] [place] [id number] [address] [place] [address] Apr, Non-recurrent acute suppurat cheri otitis media of left ear without spontaneous rupture of tympanic membrane H66.002 and Sore throat J02.9 [facility] [address] [place] [id number] [address] [place] [address] Apr, Fatigue, unspecified type R5 3.83 and Enlarged lymph nodes in armpit R59.0 [facility] [place] [address] [place] [id number] [place] [address] Apr, [facility] [address] [facility] [id number] [address] [place] [address] Apr, Axillary lymphadenopathy R59 .0 [facility] [place] [address] [place] [id number] [place] [address] Mar, Cervical stenosis of spinal canal M48.[address] [place] [address] February, Cervical stenosis of spinal canal M48.02 [place] [address] [address] February, Type 2 diabetes mellitus with other spec ified complication E11.69 and Left anterior shoulder pain M25.512 [facility] IN [facility] [address] [facility] [id number] [address] [place] [address] February, Left-sided chest wall pain R 07.89 ; Neck pain M54.2 and Fall, initial encounter W19.XXXA [place] [address] [address] Jan, Type 2 diabetes mellitus without complic ation, without long-term current use of insulin E11.9 and Type 2 diabetes mellitus with other specified complication E11.69 [place] [address] [address] Jan, [place] [address] [address] Jan, [place] [address] [address] Jan, Seasonal allergic rhinitis due to pollen J30.1 [place] [address] [address] Jan, Cervical stenosis of spinal canal M48.02 [place] [address] [address] Jan, [place] [address] [place] [id number] [place] [address] Jan, Type 2 diabetes mellitus without complic ation, without long-term current use of insulin E11.9 ; Essential hypertension I10 ; Hyperlipidemia, unspecified E78.5 ; Other chronic pain G89.29 and Pain in left shoulder M25.512 [facility] [address] [place] [id number] [place] [address] 30 Dec, 2018 Left arm pain M79.602 ; Acut e pain of left shoulder M25.512 and Pain syndrome, chronic G89.4 [address] [id number] Dec, [place] [address] [address] Dec, Well woman exam without gynecological ex am Z00.00 and Breast cancer screening Z12.31 [place] [address] [address] Dec, [place] [address] [address] Dec, [place] [address] [address] Dec, [place] [address] [address] Dec, Cervical stenosis of spinal canal M48.02 [place] [address] [address] Dec, Left anterior shoulder pain M25.512 [place] [address] [address] Dec, [facility] [address] [place] [address] Dec, Nerve pain M79.2 [place] [address] [address] Nov, Cervical stenosis of spinal canal M48.02 [place] [address] [address] Nov, Pain syndrome, chronic G89.4 [place] [address] [address] Oct, [place] [address] [address] Oct, Cervical stenosis of spinal canal M48.02 [place] [address] [address] Oct, 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 ; Cer vical stenosis of spinal canal M48.02 and BMI 45.0-49.9, adult Z68.42 [place] [address] [address] Sep, Hyperlipidemia, unspecified E78.5 [place] [address] [address] Sep, [place] [address] [address] Sep, [place] [address] [address] Sep, [place] [address] [address] Aug, Other spondylosis with radiculopathy, ce rvical region M47.22 [place] [address] [address] Jul, Other spondylosis with radiculopathy, ce rvical region M47.22 [place] [address] [address] Jul, Other spondylosis with radiculopathy, ce rvical region M47.22 [place] [address] [address] Jul, Other spondylosis with radiculopathy, ce rvical region M47.22 [place] [address] [address] Jul, 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 and H yperlipidemia, unspecified E78.5 [facility] [place] [address] [address] Jul, [facility] [place] [address] [address] Jul, Type 2 diabetes mellitus with other spec ified complication E11.69 ; Osteoarthritis of spine with radiculopathy, cervical region M47.22 ; Other spondylosis with radiculopathy, cervical region M47.22 ; S/p nephrectomy Z90.5 and Essential hypertension I10 [facility] [place] [address] [address] Jun, Spondylosis of cervical region without m yelopathy or radiculopathy M47.812 [place] [address] [address] Jun, Renal cell carcinoma of left kidney C64. 2 ; S/p nephrectomy Z90.5 ; Type 2 diabetes mellitus with other specified complication E11.69 ; Essential hypertension I10 and Osteoarthritis of spine with radiculopathy, cervical region M47.22 [facility] [place] [address] [address] Jun, [facility] [place] [address] [address] Jun, Essential hypertension I10 [facility] [place] [address] [address] May, Spondylosis of cervical region without m yelopathy or radiculopathy M47.812 [facility] [place] [address] [address] May, [facility] [place] [address] [address] May, [facility] [address] [facility] [id number] [address] [place] [address] May, Skin ulcer of buttock, limit ed to breakdown of skin L98.411 [facility] [address] [place] [id number] [place] [address] May, Fever, unspecified fever cau se R50.9 [place] [address] [address] Apr, Acute cystitis with hematuria N30.01 and Dehydration E86.0 [place] [address] [address] Apr, [facility] [address] [place] [id number] [place] [address] Apr, Dysuria R30.0 and Acute cyst itis without hematuria N30.00 [place] [address] [address] Apr, [place] [address] [address] Apr, Spondylosis of cervical region without m yelopathy or radiculopathy M47.812 [place] [address] [address] Apr, [facility] IN [facility] [address] [address] Apr, Other spondylosis with radic ulopathy, cervical region M47.22 [place] [address] [address] Apr, [place] [address] [address] Apr, Other spondylosis with radiculopathy, ce rvical region M47.22 ; Other spondylosis with myelopathy, cervical region M47.12 and Renal cell carcinoma of left kidney C64.2 [place] [address] [address] Apr, [place] [address] [address] Apr, Lumbago with sciatica, right side M54.41 and Lumbago with sciatica, left side M54.42 [place] [address] [address] Mar, Type 2 diabetes mellitus without complic ation, without long-term current use of insulin E11.9 [...] specified complication E11.69 and Hyperlipidemia, unspecified E78.5 [facility] [place] [address] [address] [place] [id number] [place] [address] Mar, Acute suppurative otitis med ia of both ears without spontaneous rupture of tympanic membranes, recurrence not specified H66.003 [place] [address] [address] Mar, [place] [address] [address] Mar, 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 [facility] [place] [address] [address] [place] [id number] [place] [address] Mar, Low back pain, unspecified b ack pain laterality, unspecified chronicity, with sciatica presence unspecified M54.5 and Type 2 diabetes mellitus without complication, without long-term current use of insulin E11.9 [place] [address] [address] February, [place] [address] [address] February, 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 [facility] [place] [address] [address] [place] [id number] [place] [address] February, Strain of neck muscle, initi al encounter S16.1XXA [place] [address] [address] February, Type 2 diabetes mellitus without complic ation, without long-term current use of insulin E11.9 [...] allergic rhinitis due to pollen J30.[address] [address] February, Essential hypertension I10 ; Retrolisthe sis of vertebrae M43.10 ; Body mass index (BMI) of 32.0-32.9 in adult Z68.32 and Type 2 diabetes mellitus without complication, without long-term current use of insulin E11.9 [place] [address] [address] February, Type 2 diabetes mellitus without complic ation, without long-term current use of insulin E11.9 [place] [address] [address] Jan, Lumbago with sciatica, right side M54.41 [facility] [place] [address] [address] [place] [id number] [place] [address] Jan, Sore throat J02.9 [place] [address] [address] Dec, [address] [address] Dec, Type 2 diabetes mellitus without complic ation, without long-term current use of insulin E11.9 [facility] [place] [address] [address] Dec, [facility] [place] [address] [address] Dec, [facility] [place] [address] [address] Dec, [facility] [place] [address] [address] Dec, Type 2 diabetes mellitus without complic ation, without long-term current use of insulin E11.9 [...] pollen J30.1 and GERD without esophagitis K21.9 [place] [address] [address] Dec, [facility] [place] [address] [address] Nov, [facility] [place] [address] [address] Nov, [facility] [place] [address] [address] Nov, [facility] [place] [address] [address] Nov, [facility] [place] [address] [address] Oct, [facility] [place] [address] [address] Oct, [facility] [place] [address] [address] 16 Oct, [address] [address] 11 Oct, 2018 Well woman exam with routine gynecologic al exam Z01.419 ; Screen for STD (sexually transmitted disease) Z11.3 ; Screening breast examination Z12.31 ; Type 2 diabetes mellitus without complication, without long-term current use of insulin E11.9 ; Other obesity due to excess calories E66.09 and Body mass index (BMI) of 32.0-32.9 in adult Z68.32 [place] [address] [address] 09 Oct, 2017 Ganglion of left wrist M67.432 [place] [address] [address] Oct, [address] [address] Oct, [facility] [address] [facility] [id number] [address] [address] Oct, Ganglion cyst M67.[address] [address] Oct, [place] [address] [address] Sep, [address] [address] Sep, Major depressive disorder, recurrent epi sode, moderate F33.1 [place] [address] [address] Sep, [address] [address] Sep, Right renal mass N28.[address] [address] Sep, [address] [address] Sep, [facility] [place] [address] [address] Sep, Right renal mass N28.89 [facility] [place] [address] [address] Sep, [facility] [place] [address] [address] Sep, [facility] [place] [address] [address] Sep, [facility] [place] [address] [address] Sep, [facility] [place] [address] [address] Sep, [facility] [place] [address] [address] Sep, [facility] [place] [address] [address] Sep, Pulmonary nodule R91.1 [facility] [place] [address] [address] Aug, [facility] [place] [address] [address] Aug, Right renal mass N28.89 and Pulmonary no dule R91.1 [facility] [place] [address] [address] Aug, Essential hypertension I10 ; Right renal mass N28.89 ; Chronic gastric ulcer, unspecified whether gastric ulcer hemorrhage or perforation present K25.7 ; Spondylosis of cervical region without myelopathy or radiculopathy M47.812 ; 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 and Hospital discharge follow-up Z09 [facility] [place] [address] [address] 14 Aug, 2017 [facility] [place] [address] [address] 09 Aug, 2017 [facility] [place] [address] [id number] [place] [address] Aug, [facility] [place] [address] [id number] [place] [address] Aug, Pain syndrome, chronic G89.4 ; Lumbago w ith sciatica, right side M54.41 ; Lumbago with sciatica, left side M54.42 ; Other chronic pain G89.29 ; Cervicalgia M54.2 ; Controlled substance agreement signed Z79.899 and Essential hypertension I10 [place] [address] [id number] [place] [address] Aug, [place] [address] [id number] [place] [address] Jul, Encounter to establish care Z76.89 ; Typ e 2 diabetes mellitus without complication, without long-term current use of insulin E11.9 ; Essential hypertension I10 ; Lumbago with sciatica, left side M54.42 ; Lumbago with sciatica, right side M54.41 ; Other chronic pain G89.29 ; Injury of right knee, subsequent encounter S89.91XD and Injury of right foot, subsequent encounter S99.921D IMMUNIZATIONS No Known Immunizations SOCIAL HISTORY Never Assessed REASON FOR VISIT OT Order PLAN OF CARE VITAL SIGNS MEDICATIONS Unknown [...] Renal Cell Carcinoma Medical History Spondylosis of cervical spine Surgical History shoulder arthroscopy Surgical History angioplasty Surgical History cholecystectomy Surgical History oopherectomy, left Surgical History section Surgical History left knee arthroscopy Surgical History right knee arthroscopy Surgical History carpal tunnel release Surgical History tubal ligation Surgical History polyp removal/colonoscopy Surgical History kidney removed 07/02/2018 Surgical History cervical spine frontal entry 09/27/2018 Hospitalization History heart attack x3 4239-2700 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 Hospitalization History left kidney removal 06/2018 Hospitalization History surgery 09/27/2018
--- OUTSIDE RECORDS SUMMARY | 2020-01-21 19:03 | XMS REPORT ---
Author Author Amy SNELL Organization [facility] Address [address] [place] [address] Care Team Providers Care Heart Nurse Name Role Phone KING ROSA Unavailable PROBLEMS Type Condition ICD9-CM Code FHK07-DG Code Onset Dates Condition S tatus SNOMED Code Problem Left kidney mass N28.89 Active 309 399620 Problem Cervical stenosis of spinal canal M48.02 Active 94221469 Problem Type 2 diabetes mellitus wit hout complication, without long-term current use of insulin E11.9 Active 797828489 Problem Chronic esophagogastric ulcer K25.7 Active 54414949 Problem Metabolic disorder, unspecified E88.9 Active 668632480 Problem 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 3 Active 102294174 Problem Right renal mass N28.89 Active 309 405459 Problem Pain syndrome, chronic G89.4 Active 852604922 Problem Pulmonary nodule R91.1 Active 427 299413 Problem 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 Ac tive 255987641 Problem Other obesity due to excess calories E66.09 Active 587169312 Problem Body mass index (BMI) of 32.0-32.9 in adult Z68.32 Active 313437061 Problem GERD without esophagitis K21.9 Activ e 442360946 Problem Major depressive disorder, recurrent episode, moderate F33.1 Active 805011788 Problem Seasonal allergic rhinitis due to pollen J30.1 Active 55714571 Problem Renal cell carcinoma of left kidney C64.2 Active 749238193 Problem Hyperlipidemia, unspecified E78.5 Ac tive 17849271 Problem S/p nephrectomy Z90.5 Active 1616 22629 Problem Lumbago with sciatica, right side M54.41 Active 543902662197328 Problem Other chronic pain G89.29 Active 8 7382912 Problem Lumbago with sciatica, left side M54.42 Active 857708363 Problem Essential hypertension I10 Active 97063512 Problem Type 2 diabetes mellitus with other specified complication E11.69 Active 42113021742739 Problem Other spondylosis with radiculopathy, cervical region M47.22 Active 096615747 Problem Other spondylosis with myelopathy, cervical region M47.12 Active 64710227 Problem Osteoarthritis of spine with radiculopathy, cervical regio n M47.22 Active 879793782 ALLERGIES No Information ENCOUNTERS Encounter Location Date Diagnosis [place] [address] [address] Jun, Cervical stenosis of spinal canal M48.02 [place] [address] [address] May, Type 2 diabetes mellitus wit hout complication, without long-term current use of insulin E11.9 ; Encounter for immunization Z23 ; Cervical stenosis of spinal canal M48.02 and Major depressive disorder, recurrent episode, moderate F33.1 [place] [address] [address] May, Cervical stenosis of spinal canal M48.02 [place] [address] [address] May, Breast pain, left N64.4 [facility] [place] [address] [address] Apr, [facility] [place] [address] [address] Apr, Acute bronchitis, unspecifie d organism J20.9 ; Chest pain, unspecified type R07.9 and Shortness of breath R06.02 [place] [address] [address] [place] [id number] [place] [address] Apr, Cervical stenosis of spinal canal M48.02 [facility] [place] [address] [address] [place] [id number] [place] [address] Apr, Non-recurrent acute suppurat cheri otitis media of left ear without spontaneous rupture of tympanic membrane H66.002 and Sore throat J02.9 [facility] [address] [id number] [address] [place] [address] Apr, Fatigue, unspecified type R5 3.83 and Enlarged lymph nodes in armpit R59.0 [facility] [address] [id number] [address] [place] [address] Apr, [facility] [address] [id number] [address] [place] [address] Apr, Axillary lymphadenopathy R59 .0 [facility] [address] [facility] [id number] [address] [place] [address] Mar, Cervical stenosis of spinal canal M48.[address] [address] February, Cervical stenosis of spinal canal M48.02 [facility] [address] [facility] [id number] [address] [place] [address] February, Type 2 diabetes mellitus wit h other specified complication E11.69 and Left anterior shoulder pain M25.512 [facility] [address] [facility] [id number] [address] [place] [address] February, Left-sided chest wall pain R 07.89 ; Neck pain M54.2 and Fall, initial encounter W19.XXXA [place] [address] [facility] [id number] [address] [place] [address] Jan, Type 2 diabetes mellitus wit hout complication, without long-term current use of insulin E11.9 and Type 2 diabetes mellitus with other specified complication E11.69 [place] [address] [facility] [id number] [address] [place] [address] Jan, [place] [address] [facility] [id number] [address] [place] [address] Jan, [place] [address] [facility] [id number] [address] [place] [address] Jan, Seasonal allergic rhinitis d ue to pollen J30.1 [place] [address] [facility] [id number] [address] [place] [address] Jan, Cervical stenosis of spinal canal M48.02 [place] [address] [facility] [id number] [address] [place] [address] Jan, [facility] [address] [facility] [id number] [address] [place] [address] Jan, Type 2 diabetes mellitus wit hout complication, without long-term current use of insulin E11.9 ; Essential hypertension I10 ; Hyperlipidemia, unspecified E78.5 ; Other chronic pain G89.29 and Pain in left shoulder M25.512 [facility] [address] [facility] [id number] [address] [place] [address] 30 Dec, 2018 Left arm pain M79.602 ; Acut e pain of left shoulder M25.512 and Pain syndrome, chronic G89.[address] [place] [id number] [place] [id number] Dec, [place] [address] [facility] [id number] [address] [place] [address] Dec, Well woman exam without gyne cological exam Z00.00 and Breast cancer screening Z12.31 [place] [address] [facility] [id number] [address] [place] [address] Dec, [place] [address] [facility] [id number] [address] [place] [address] Dec, [place] [address] [facility] [id number] [address] [place] [address] Dec, [place] [address] [facility] [id number] [address] [place] [address] Dec, Cervical stenosis of spinal canal M48.02 [place] [address] [facility] [id number] [address] [place] [address] Dec, Left anterior shoulder pain M25.512 [place] [address] [facility] [id number] [address] [place] [address] Dec, [facility] [address] [id number] [address] [place] [address] Dec, Nerve pain M79.2 [facility] [address] [id number] [address] [place] [address] Nov, Cervical stenosis of spinal canal M48.02 [facility] [address] [id number] [address] [place] [address] Nov, Pain syndrome, chronic G89.4 [facility] [address] [id number] [address] [place] [address] Oct, [facility] [address] [id number] [address] [place] [address] Oct, Cervical stenosis of spinal canal M48.02 [facility] [address] [facility] [id number] [address] [place] [address] Oct, 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 ; Cervical stenosis of spinal canal M48.02 and BMI 45.0-49.9, adult Z68.42 [place] [address] [id number] [address] [place] [address] Sep, Hyperlipidemia, unspecified E78.5 [facility] [address] [id number] [address] [place] [id number] Sep, [facility] [address] [facility] [id number] [address] [place] [address] Sep, [facility] [address] [facility] [id number] [address] [place] [address] Sep, [facility] [address] [facility] [id number] [address] [place] [address] Aug, Other spondylosis with radic ulopathy, cervical region M47.22 [facility] [address] [id number] [address] [place] [address] Jul, Other spondylosis with radic ulopathy, cervical region M47.22 [facility] [address] [id number] [address] [place] [address] Jul, Other spondylosis with radic ulopathy, cervical region M47.22 [facility] [address] [id number] [address] [place] [address] Jul, Other spondylosis with radic ulopathy, cervical region M47.22 [facility] [address] [id number] [address] [place] [address] Jul, 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 and Hyperlipidemia, unspecified E78.5 [facility] [address] [id number] [address] [place] [address] Jul, [facility] [address] [id number] [address] [place] [address] Jul, Type 2 diabetes mellitus wit h other specified complication E11.69 ; Osteoarthritis of spine with radiculopathy, cervical region M47.22 ; Other spondylosis with radiculopathy, cervical region M47.22 ; S/p nephrectomy Z90.5 and Essential hypertension I10 [facility] [address] [id number] [address] [place] [address] Jun, Spondylosis of cervical hakan on without myelopathy or radiculopathy M47.812 [facility] [address] [id number] [address] [place] [address] Jun, Renal cell carcinoma of left kidney C64.2 ; S/p nephrectomy Z90.5 ; Type 2 diabetes mellitus with other specified complication E11.69 ; Essential hypertension I10 and Osteoarthritis of spine with radiculopathy, cervical region M47.22 [facility] [address] [id number] [address] [place] [address] Jun, [facility] [address] [id number] [address] [place] [address] Jun, Essential hypertension I10 [facility] [address] [id number] [address] [place] [address] May, Spondylosis of cervical hakan on without myelopathy or radiculopathy M47.812 [facility] [address] [facility] [id number] [address] [place] [address] May, [place] [address] [place] [id number] [place] [address] May, [facility] [address] [place] [id number] [place] [address] May, Skin ulcer of buttock, limit ed to breakdown of skin L98.411 [facility] [place] [address] [place] [id number] [place] [address] May, Fever, unspecified fever cau se R50.9 [place] [address] [address] [place] [id number] [place] [address] Apr, Acute cystitis with hematuri a N30.01 and Dehydration E86.0 [place] [address] [address] [place] [id number] [place] [address] Apr, [facility] [address] [place] [id number] [place] [address] Apr, Dysuria R30.0 and Acute cyst itis without hematuria N30.00 [place] [address] [place] [id number] [place] [address] Apr, [place] [address] [place] [id number] [place] [address] Apr, Spondylosis of cervical hakan on without myelopathy or radiculopathy M47.812 [place] [address] [place] [id number] [place] [address] Apr, [facility] [address] [place] [id number] [place] [address] Apr, Other spondylosis with radic ulopathy, cervical region M47.22 [place] [address] [address] Apr, [place] [address] [place] [address] Apr, Other spondylosis with radic ulopathy, cervical region M47.22 ; Other spondylosis with myelopathy, cervical region M47.12 and Renal cell carcinoma of left kidney C64.2 [place] [address] [place] [id number] [place] [address] Apr, [place] [address] [address] Apr, Lumbago with sciatica, right side M54.41 and Lumbago with sciatica, left side M54.[address] [address] Mar, Type 2 diabetes mellitus wit hout complication, [...] specified complication E11.69 and Hyperlipidemia, unspecified E78.5 [facility] [address] [place] [id number] [place] [address] Mar, Acute suppurative otitis med ia of both ears without spontaneous rupture of tympanic membranes, recurrence not specified H66.003 [place] [address] [place] [address] Mar, [place] [address] [place] [id number] [place] [address] Mar, 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 [facility] [address] [place] [id number] [place] [address] Mar, Low back pain, unspecified b ack pain laterality, unspecified chronicity, with sciatica presence unspecified M54.5 and Type 2 diabetes mellitus without complication, without long-term current use of insulin E11.9 [facility] [address] [facility] [id number] [address] [place] [address] February, [facility] [address] [place] [id number] [place] [address] February, 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 [facility] [address] [facility] [id number] [address] [place] [address] February, Strain of neck muscle, initi al encounter S16.1XXA [place] [address] [address] [place] [id number] [place] [address] February, Type 2 diabetes mellitus wit hout complication, [...] Seasonal allergic rhinitis due to pollen J30.1 [facility] [address] [place] [address] February, Essential hypertension I10 ; 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 ; Body mass index (BMI) of 32.0-32.9 in adult Z68.32 and Type 2 diabetes mellitus without complication, without long-term current use of insulin E11.9 [place] [address] [place] [id number] [place] [address] February, Type 2 diabetes mellitus wit hout complication, without long-term current use of insulin E11.9 [place] [address] [facility] [id number] [address] [place] [address] Jan, Lumbago with sciatica, right side M54.41 [facility] [address] [facility] [id number] [address] [place] [address] Jan, Sore throat J02.9 [facility] [address] [facility] [id number] [address] [place] [address] Dec, [facility] [address] [facility] [id number] [address] [place] [address] Dec, Type 2 diabetes mellitus wit hout complication, without long-term current use of insulin E11.9 [facility] [address] [facility] [id number] [address] [place] [address] Dec, [facility] [address] [facility] [id number] [address] [place] [address] Dec, [facility] [address] [facility] [id number] [address] [place] [address] Dec, [facility] [address] [facility] [id number] [address] [place] [address] Dec, Type 2 diabetes mellitus wit hout complication, [...] pollen J30.1 and GERD without esophagitis K21.9 [facility] [address] [facility] [id number] [address] [place] [address] Dec, [facility] [address] [facility] [id number] [address] [place] [address] Nov, [facility] [address] [place] [id number] [place] [address] Nov, [facility] [address] [facility] [id number] [address] [place] [address] Nov, [facility] [address] [facility] [id number] [address] [place] [address] Nov, [facility] [address] [place] [id number] [place] [address] Oct, [facility] [address] [place] [id number] [place] [address] Oct, [place] [address] [address] Oct, [facility] [address] [place] [id number] [place] [address] Oct, Well woman exam with routine gynecological exam Z01.419 ; Screen for STD (sexually transmitted disease) Z11.3 ; Screening breast examination Z12.31 ; Type 2 diabetes mellitus without complication, without long-term current use of insulin E11.9 ; Other obesity due to excess calories E66.09 and Body mass index (BMI) of 32.0-32.9 in adult Z68.32 [facility] [address] [place] [id number] [place] [address] Oct, Ganglion of left wrist M67.4 32 [facility] [address] [place] [id number] [place] [address] Oct, [facility] [address] [place] [id number] [place] [address] Oct, [facility] [address] [place] [id number] [place] [address] Oct, Ganglion cyst M67.40 [facility] [address] [facility] [id number] [address] [place] [address] Oct, [facility] [address] [place] [id number] [place] [address] Sep, [facility] [address] [id number] [address] [place] [address] Sep, Major depressive disorder, r ecurrent episode, moderate F33.1 [facility] [address] [id number] [address] [place] [address] Sep, [facility] [address] [id number] [address] [place] [address] Sep, Right renal mass N28.89 [facility] [address] [id number] [address] [place] [address] Sep, [facility] [address] [id number] [address] [place] [address] Sep, [facility] [address] [id number] [address] [place] [address] Sep, Right renal mass N28.89 [facility] [address] [id number] [address] [place] [phone] Sep, [facility] [address] [id number] [address] [place] [address] Sep, [facility] [address] [id number] [address] [place] [address] Sep, [facility] [address] [id number] [address] [place] [address] Sep, [facility] [address] [id number] [address] [place] [address] Sep, [facility] [address] [id number] [address] [place] [address] Sep, [facility] [address] [id number] [address] [place] [address] Sep, Pulmonary nodule R91.1 [facility] [address] [id number] [address] [place] [address] Aug, [facility] [address] [place] [id number] [place] [address] 17 Aug, 2017 Right renal mass N28.89 and Pulmonary nodule R91.1 [place] [address] [address] 16 Aug, 2017 Essential hypertension I10 ; Right renal mass N28.89 ; Chronic gastric ulcer, unspecified whether gastric ulcer hemorrhage or perforation present K25.7 ; Spondylosis of cervical region without myelopathy or radiculopathy M47.812 ; 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 and Hospital discharge follow-up Z09 [place] [address] [address] 14 Aug, 2017 [place] [address] [address] 09 Aug, 2017 [place] [address] [address] Aug, [place] [address] [address] Aug, Pain syndrome, chronic G89.4 ; Lumbago with sciatica, right side M54.41 ; Lumbago with sciatica, left side M54.42 ; Other chronic pain G89.29 ; Cervicalgia M54.2 ; Controlled substance agreement signed Z79.899 and Essential hypertension I10 [place] [address] [address] Aug, [place] [address] [address] Jul, Encounter to establish care Z76.89 ; [...] SOCIAL HISTORY Never Assessed REASON FOR VISIT Medication refill request PLAN OF CARE VITAL SIGNS MEDICATIONS Medication Instructions Dosage Frequency Start Date End Date Duration S satya Metoprolol Tartrate 100 MG TAKE ONE TABLET BY MOUTH TWICE DAILY WITH FOOD 30 Active RESULTS No Results PROCEDURES No [...] entry 09/27/2018 Hospitalization History heart attack x3 [id number] 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 Hospitalization History left kidney removal 06/2018 Hospitalization History surgery 09/27/2018
--- OUTSIDE RECORDS SUMMARY | 2020-01-21 19:03 | XMS REPORT ---
Author Author Amy SNELL Organization [facility] Address [address] [place] [address] Care Team Providers Care Tools Administrator Name Role Phone KING ROSA Unavailable PROBLEMS Type Condition ICD9-CM Code UOV09-DY Code Onset Dates Condition S tatus SNOMED Code Problem Left kidney mass N28.89 Active 309 214656 Problem Cervical stenosis of spinal canal M48.02 Active 60983063 Problem Type 2 diabetes mellitus wit hout complication, without long-term current use of insulin E11.9 Active 602279899 Problem Chronic esophagogastric ulcer K25.7 Active 13265193 Problem Metabolic disorder, unspecified E88.9 Active 194019429 Problem 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 3 Active 482404694 Problem Right renal mass N28.89 Active 309 248831 Problem Pain syndrome, chronic G89.4 Active 783759062 Problem Pulmonary nodule R91.1 Active 427 501323 Problem 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 Ac tive 990049882 Problem Other obesity due to excess calories E66.09 Active 381448396 Problem Body mass index (BMI) of 32.0-32.9 in adult Z68.32 Active 609752712 Problem GERD without esophagitis K21.9 Activ e 324468471 Problem Major depressive disorder, recurrent episode, moderate F33.1 Active 795317387 Problem Seasonal allergic rhinitis due to pollen J30.1 Active 65698276 Problem Renal cell carcinoma of left kidney C64.2 Active 896470968 Problem Hyperlipidemia, unspecified E78.5 Ac tive 03038498 Problem S/p nephrectomy Z90.5 Active 1616 66946 Problem Lumbago with sciatica, right side M54.41 Active 665262190964374 Problem Other chronic pain G89.29 Active 8 4681342 Problem Lumbago with sciatica, left side M54.42 Active 061878603 Problem Essential hypertension I10 Active 57955927 Problem Type 2 diabetes mellitus with other specified complication E11.69 Active 34145781601209 Problem Other spondylosis with radiculopathy, cervical region M47.22 Active 731264211 Problem Other spondylosis with myelopathy, cervical region M47.12 Active 06483471 Problem Osteoarthritis of spine with radiculopathy, cervical regio n M47.22 Active 311208529 ALLERGIES No Information ENCOUNTERS Encounter Location Date Diagnosis [place] [address] [address] May, Type 2 diabetes mellitus wit hout complication, without long-term current use of insulin E11.9 ; Encounter for immunization Z23 ; Cervical stenosis of spinal canal M48.02 and Major depressive disorder, recurrent episode, moderate F33.1 [place] [address] [address] May, Cervical stenosis of spinal canal M48.02 [place] [address] [address] May, Breast pain, left N64.4 [facility] [place] [address] [address] Apr, [facility] [place] [address] [address] Apr, Acute bronchitis, unspecifie d organism J20.9 ; Chest pain, unspecified type R07.9 and Shortness of breath R06.02 [place] [address] [address] [place] [id number] [place] [address] Apr, Cervical stenosis of spinal canal M48.02 [facility] [place] [address] [address] [place] [id number] [place] [address] Apr, Non-recurrent acute suppurat cheri otitis media of left ear without spontaneous rupture of tympanic membrane H66.002 and Sore throat J02.9 [facility] [place] [address] [place] [id number] [place] [address] Apr, Fatigue, unspecified type R5 3.83 and Enlarged lymph nodes in armpit R59.0 [facility] [address] [facility] [id number] [address] [place] [address] Apr, [facility] [address] [facility] [id number] [address] [place] [address] Apr, Axillary lymphadenopathy R59 .0 [facility] [address] [facility] [id number] [address] [place] [address] Mar, Cervical stenosis of spinal canal M48.[address] [address] February, Cervical stenosis of spinal canal M48.02 [place] [address] [address] [facility] [id number] [address] [place] [address] February, Type 2 diabetes mellitus wit h other specified complication E11.69 and Left anterior shoulder pain M25.512 [facility] [address] [place] [id number] [place] [address] February, Left-sided chest wall pain R 07.89 ; Neck pain M54.2 and Fall, initial encounter W19.XXXA [place] [address] [address] Jan, Type 2 diabetes mellitus wit hout complication, without long-term current use of insulin E11.9 and Type 2 diabetes mellitus with other specified complication E11.69 [place] [address] [address] [place] [id number] [place] [address] Jan, [place] [address] [address] [facility] [id number] [address] [place] [address] Jan, [place] [address] [address] [facility] [id number] [address] [place] [address] Jan, Seasonal allergic rhinitis d ue to pollen J30.1 [place] [address] [address] [facility] [id number] [address] [place] [address] Jan, Cervical stenosis of spinal canal M48.02 [place] [address] [address] [facility] [id number] [address] [place] [address] 15 Jan, 2019 [facility] [address] [id number] [address] [place] [address] 05 Jan, 2019 Type 2 diabetes mellitus wit hout complication, without long-term current use of insulin E11.9 ; Essential hypertension I10 ; Hyperlipidemia, unspecified E78.5 ; Other chronic pain G89.29 and Pain in left shoulder M25.512 [facility] [address] [facility] [id number] [address] [place] [address] 30 Dec, 2018 Left arm pain M79.602 ; Acut e pain of left shoulder M25.512 and Pain syndrome, chronic G89.[id number] [place] [id number] Dec, [place] [address] [address] [facility] [id number] [address] [place] [address] Dec, Well woman exam without gyne cological exam Z00.00 and Breast cancer screening Z12.31 [place] [address] [address] [facility] [id number] [address] [place] [address] Dec, [place] [address] [address] [facility] [id number] [address] [place] [address] Dec, [facility] [address] [facility] [id number] [address] [place] [address] Dec, [place] [address] [address] [facility] [id number] [address] [place] [address] Dec, Cervical stenosis of spinal canal M48.02 [facility] [address] [facility] [id number] [address] [place] [address] Dec, Left anterior shoulder pain M25.512 [facility] [address] [facility] [id number] [address] [place] [address] Dec, [facility] [address] [facility] [id number] [address] [place] [address] 06 Dec, 2018 Nerve pain M79.2 [place] [address] [id number] [address] [place] [address] Nov, Cervical stenosis of spinal canal M48.02 [facility] [address] [id number] [address] [place] [address] Nov, Pain syndrome, chronic G89.4 [facility] [address] [id number] [address] [place] [address] Oct, [facility] [address] [id number] [address] [place] [address] Oct, Cervical stenosis of spinal canal M48.02 [place] [address] [id number] [address] [place] [address] Oct, 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 ; Cervical stenosis of spinal canal M48.02 and BMI 45.0-49.9, adult Z68.42 [place] [address] [id number] [address] [place] [address] Sep, Hyperlipidemia, unspecified E78.5 [facility] [address] [id number] [address] [place] [address] Sep, [place] [address] [id number] [address] [place] [address] Sep, [place] [address] [id number] [address] [place] [address] Sep, [facility] [address] [id number] [address] [place] [address] Aug, Other spondylosis with radic ulopathy, cervical region M47.22 [facility] [address] [id number] [address] [place] [address] Jul, Other spondylosis with radic ulopathy, cervical region M47.22 [facility] [address] [id number] [address] [place] [address] Jul, Other spondylosis with radic ulopathy, cervical region M47.22 [facility] [address] [id number] [address] [place] [address] Jul, Other spondylosis with radic ulopathy, cervical region M47.22 [place] [address] [id number] [address] [place] [address] Jul, 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 and Hyperlipidemia, unspecified E78.5 [place] [address] [id number] [address] [place] [address] Jul, [place] [address] [id number] [address] [place] [address] Jul, Type 2 diabetes mellitus wit h other specified complication E11.69 ; Osteoarthritis of spine with radiculopathy, cervical region M47.22 ; Other spondylosis with radiculopathy, cervical region M47.22 ; S/p nephrectomy Z90.5 and Essential hypertension I10 [place] [address] [id number] [address] [place] [address] Jun, Spondylosis of cervical hakan on without myelopathy or radiculopathy M47.812 [place] [address] [id number] [address] [place] [address] Jun, Renal cell carcinoma of left kidney C64.2 ; S/p nephrectomy Z90.5 ; Type 2 diabetes mellitus with other specified complication E11.69 ; Essential hypertension I10 and Osteoarthritis of spine with radiculopathy, cervical region M47.22 [place] [address] [id number] [address] [place] [address] Jun, [place] [address] [id number] [address] [place] [address] Jun, Essential hypertension I10 [place] [address] [id number] [address] [place] [address] May, Spondylosis of cervical hakan on without myelopathy or radiculopathy M47.812 [place] [address] [id number] [address] [place] [address] May, [facility] [address] [place] [id number] [address] [place] [address] May, [facility] [address] [place] [id number] [place] [address] May, Skin ulcer of buttock, limit ed to breakdown of skin L98.411 [facility] [address] [address] May, Fever, unspecified fever cau se R50.9 [place] [address] [address] Apr, Acute cystitis with hematuri a N30.01 and Dehydration E86.0 [place] [address] [address] [place] [id number] [place] [address] Apr, [facility] [address] [address] Apr, Dysuria R30.0 and Acute cyst itis without hematuria N30.00 [place] [address] [address] Apr, [place] [address] [address] [place] [id number] [place] [address] Apr, Spondylosis of cervical hakan on without myelopathy or radiculopathy M47.812 [place] [address] [address] [place] [id number] [place] [address] Apr, [facility] [address] [place] [id number] [place] [address] Apr, Other spondylosis with radic ulopathy, cervical region M47.22 [facility] [address] [place] [id number] [place] [address] Apr, [facility] [address] [place] [id number] [place] [address] Apr, Other spondylosis with radic ulopathy, cervical region M47.22 ; Other spondylosis with myelopathy, cervical region M47.12 and Renal cell carcinoma of left kidney C64.2 [place] [address] [address] Apr, [place] [address] [address] Apr, Lumbago with sciatica, right side M54.41 and Lumbago with sciatica, left side M54.42 [place] [address] [address] [place] [id number] [place] [address] Mar, Type 2 diabetes mellitus wit hout [...] specified complication E11.69 and Hyperlipidemia, unspecified E78.5 [facility] [address] [address] Mar, Acute suppurative otitis med ia of both ears without spontaneous rupture of tympanic membranes, recurrence not specified H66.003 [place] [address] [id number] [place] [address] Mar, [place] [address] [id number] [place] [address] Mar, 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 [facility] [address] [place] [id number] [place] [address] Mar, Low back pain, unspecified b ack pain laterality, unspecified chronicity, with sciatica presence unspecified M54.5 and Type 2 diabetes mellitus without complication, without long-term current use of insulin E11.9 [place] [address] [address] [facility] [id number] [address] [place] [address] February, [place] [address] [address] [facility] [id number] [address] [place] [address] February, 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 [facility] [place] [id number] [place] [address] February, Strain of neck muscle, initi al encounter S16.1XXA [place] [address] [address] [facility] [id number] [address] [place] [address] February, Type 2 diabetes mellitus wit hout [...] Seasonal allergic rhinitis due to pollen J30.1 [place] [address] [address] [facility] [id number] [address] [place] [address] February, Essential hypertension I10 ; 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 ; Body mass index (BMI) of 32.0-32.9 in adult Z68.32 and Type 2 diabetes mellitus without complication, without long-term current use of insulin E11.9 [place] [address] [address] [facility] [id number] [address] [place] [address] February, Type 2 diabetes mellitus wit hout complication, without long-term current use of insulin E11.9 [place] [address] [address] [facility] [id number] [address] [place] [address] Jan, Lumbago with sciatica, right side M54.41 [facility] [place] [address] [address] [facility] [id number] [address] [place] [address] Jan, Sore throat J02.9 [facility] [address] [facility] [id number] [address] [place] [address] Dec, [facility] [address] [facility] [id number] [address] [place] [address] 19 Dec, 2017 Type 2 diabetes mellitus wit hout complication, without long-term current use of insulin E11.9 [facility] [address] [facility] [id number] [address] [place] [address] 14 Dec, 2017 [facility] [address] [facility] [id number] [address] [place] [address] 14 Dec, 2017 [facility] [address] [place] [id number] [place] [address] Dec, [place] [address] [address] [place] [id number] [place] [address] Dec, Type 2 diabetes mellitus wit hout [...] pollen J30.1 and GERD without esophagitis K21.9 [facility] [address] [facility] [id number] [address] [place] [address] Dec, [facility] [address] [facility] [id number] [address] [place] [address] Nov, [facility] [address] [place] [id number] [place] [address] Nov, [facility] [address] [facility] [id number] [address] [place] [address] 14 Nov, 2017 [facility] [address] [facility] [id number] [address] [place] [address] Nov, [facility] [address] [facility] [id number] [address] [place] [address] Oct, [facility] [address] [facility] [id number] [address] [place] [address] Oct, [facility] [address] [facility] [id number] [address] [place] [address] Oct, [facility] [address] [facility] [id number] [address] [place] [address] Oct, Well woman exam with routine gynecological exam Z01.419 ; Screen for STD (sexually transmitted disease) Z11.3 ; Screening breast examination Z12.31 ; Type 2 diabetes mellitus without complication, without long-term current use of insulin E11.9 ; Other obesity due to excess calories E66.09 and Body mass index (BMI) of 32.0-32.9 in adult Z68.32 [place] [address] [address] [facility] [id number] [address] [place] [address] Oct, Ganglion of left wrist M67.4 32 [place] [address] [address] [facility] [id number] [address] [place] [address] Oct, [facility] [address] [facility] [id number] [address] [place] [address] Oct, [facility] [address] [facility] [id number] [address] [place] [address] Oct, Ganglion cyst M67.40 [facility] [address] [facility] [id number] [address] [place] [address] Oct, [facility] [address] [facility] [id number] [address] [place] [address] Sep, [facility] [address] [facility] [id number] [address] [place] [address] Sep, Major depressive disorder, r ecurrent episode, moderate F33.1 [facility] [address] [id number] [address] [place] [address] Sep, [facility] [address] [facility] [id number] [address] [place] [address] Sep, Right renal mass N28.89 [facility] [address] [id number] [address] [place] [address] Sep, [facility] [address] [id number] [address] [place] [address] Sep, [facility] [address] [facility] [id number] [address] [place] [address] Sep, Right renal mass N28.89 [facility] [address] [facility] [id number] [address] [place] [address] Sep, [facility] [address] [facility] [id number] [address] [place] [address] Sep, [facility] [address] [facility] [id number] [address] [place] [address] Sep, [facility] [address] [facility] [id number] [address] [place] [address] Sep, [facility] [address] [facility] [id number] [address] [place] [address] Sep, [facility] [address] [facility] [id number] [address] [place] [address] Sep, [facility] [address] [facility] [id number] [address] [place] [address] Sep, Pulmonary nodule R91.1 [facility] [address] [id number] [address] [place] [address] Aug, [facility] [address] [facility] [id number] [address] [place] [address] Aug, Right renal mass N28.89 and Pulmonary nodule R91.1 [place] [id number] [place] [id number] [place] [address] 16 Aug, 2017 Essential hypertension I10 ; Right renal mass N28.89 ; Chronic gastric ulcer, unspecified whether gastric ulcer hemorrhage or perforation present K25.7 ; Spondylosis of cervical region without myelopathy or radiculopathy M47.812 ; 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 and Hospital discharge follow-up Z09 [place] [address] [address] 14 Aug, 2017 [place] [address] [address] Aug, [place] [address] [address] Aug, [place] [address] [address] [place] [id number] [address] [place] [address] Aug, Pain syndrome, chronic G89.4 ; Lumbago with sciatica, right side M54.41 ; Lumbago with sciatica, left side M54.42 ; Other chronic pain G89.29 ; Cervicalgia M54.2 ; Controlled substance agreement signed Z79.899 and Essential hypertension I10 [place] [address] [address] [place] [id number] [place] [address] Aug, [place] [address] [address] [place] [id number] [place] [address] Jul, Encounter to establish care Z76.89 ; [...] Frequency Start Date End Date Duration S tatus Oxycodone-Acetaminophen 7.5-325 MG Orally every 6 hrs 1 tablet 6h 22 Mar, 2019 Active RESULTS No Results PROCEDURES No Known [...] entry 09/27/2018 Hospitalization History heart attack x3 2744-2811 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 Hospitalization History left kidney removal 06/2018 Hospitalization History surgery 09/27/2018
--- OUTSIDE RECORDS SUMMARY | 2020-01-21 19:03 | XMS REPORT ---
Author Author Amy SNELL Organization [facility] Address [address] [place] [address] Care Team Providers Care Lumber Loader Name Role Phone KING ROSA Unavailable PROBLEMS Type Condition ICD9-CM Code JMZ13-MD Code Onset Dates Condition S tatus SNOMED Code Problem Left kidney mass N28.89 Active 309 599555 Problem Cervical stenosis of spinal canal M48.02 Active 86196520 Problem Type 2 diabetes mellitus wit hout complication, without long-term current use of insulin E11.9 Active 045299866 Problem Chronic esophagogastric ulcer K25.7 Active 68273339 Problem Metabolic disorder, unspecified E88.9 Active 943994185 Problem 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 3 Active 761889611 Problem Right renal mass N28.89 Active 309 734988 Problem Pain syndrome, chronic G89.4 Active 047382312 Problem Pulmonary nodule R91.1 Active 427 693598 Problem 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 Ac tive 866478712 Problem Other obesity due to excess calories E66.09 Active 708983347 Problem Body mass index (BMI) of 32.0-32.9 in adult Z68.32 Active 196516200 Problem GERD without esophagitis K21.9 Activ e 035385049 Problem Major depressive disorder, recurrent episode, moderate F33.1 Active 215673171 Problem Seasonal allergic rhinitis due to pollen J30.1 Active 46078699 Problem Renal cell carcinoma of left kidney C64.2 Active 354218543 Problem Hyperlipidemia, unspecified E78.5 Ac tive 36525881 Problem S/p nephrectomy Z90.5 Active 1616 60093 Problem Lumbago with sciatica, right side M54.41 Active 731923877859553 Problem Other chronic pain G89.29 Active 8 4744602 Problem Lumbago with sciatica, left side M54.42 Active 728151334 Problem Essential hypertension I10 Active 15112718 Problem Type 2 diabetes mellitus with other specified complication E11.69 Active 95667985299598 Problem Other spondylosis with radiculopathy, cervical region M47.22 Active 324330717 Problem Other spondylosis with myelopathy, cervical region M47.12 Active 61263702 Problem Osteoarthritis of spine with radiculopathy, cervical regio 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.22 Active 315237342 ALLERGIES Substance Reaction Event Type Date Status Gabapentin stomach upset Drug Allergy Dec, Active Feldene cintron's palsy Drug Allergy Dec, Active Doxycycline Monohydrate anaphylaxis Drug Allergy Dec, Acti ve Ketorolac Tromethamine Unknown Drug Allergy Dec, Activ e Hydrocodone-Acetaminophen anaphylaxis Drug Allergy Dec, Ac tive ENCOUNTERS Encounter Location Date Diagnosis [place] [address] [address] May, Type 2 diabetes mellitus wit hout complication, without long-term current use of insulin E11.9 ; Encounter for immunization Z23 ; Cervical stenosis of spinal canal M48.02 and Major depressive disorder, recurrent episode, moderate F33.1 [place] [address] [address] May, Cervical stenosis of spinal canal M48.02 [place] [address] [address] May, Breast pain, left N64.4 [facility] [place] [address] [address] Apr, [facility] [address] [address] Apr, Acute bronchitis, unspecifie d organism J20.9 ; Chest pain, unspecified type R07.9 and Shortness of breath R06.02 [place] [address] [address] Apr, Cervical stenosis of spinal canal M48.02 [facility] [address] [address] Apr, Non-recurrent acute suppurat cheri otitis media of left ear without spontaneous rupture of tympanic membrane H66.002 and Sore throat J02.9 [facility] [address] [facility] [id number] [address] [place] [address] Apr, Fatigue, unspecified type R5 3.83 and Enlarged lymph nodes in armpit R59.0 [facility] [address] [facility] [id number] [address] [place] [address] Apr, [facility] [address] [facility] [id number] [address] [place] [address] Apr, Axillary lymphadenopathy R59 .0 [place] [address] [address] [place] [id number] [place] [address] Mar, Cervical stenosis of spinal canal M48.[address] [address] February, Cervical stenosis of spinal canal M48.02 [place] [address] [address] [place] [id number] [address] [place] [address] February, Type 2 diabetes mellitus wit h other specified complication E11.69 and Left anterior shoulder pain M25.512 [facility] [address] [place] [id number] [address] [place] [address] February, Left-sided chest wall pain R 07.89 ; Neck pain M54.2 and Fall, initial encounter W19.XXXA [place] [address] [address] [place] [id number] [address] [place] [address] Jan, Type 2 diabetes mellitus wit hout complication, without long-term current use of insulin E11.9 and Type 2 diabetes mellitus with other specified complication E11.69 [place] [address] [address] [place] [id number] [address] [place] [address] Jan, [facility] [address] [place] [id number] [address] [place] [address] Jan, [facility] [address] [place] [id number] [address] [place] [address] Jan, Seasonal allergic rhinitis d ue to pollen J30.1 [facility] [address] [facility] [id number] [address] [place] [address] Jan, Cervical stenosis of spinal canal M48.02 [facility] [address] [facility] [id number] [address] [place] [address] Jan, [facility] [address] [facility] [id number] [address] [place] [address] Jan, Type 2 diabetes mellitus wit hout complication, without long-term current use of insulin E11.9 ; Essential hypertension I10 ; Hyperlipidemia, unspecified E78.5 ; Other chronic pain G89.29 and Pain in left shoulder M25.512 [facility] [address] [facility] [id number] [address] [place] [address] Dec, Left arm pain M79.602 ; Acut e pain of left shoulder M25.512 and Pain syndrome, chronic G89.[id number] [place] [id number] Dec, [facility] [address] [facility] [id number] [address] [place] [address] Dec, Well woman exam without gyne cological exam Z00.00 and Breast cancer screening Z12.31 [facility] [address] [facility] [id number] [address] [place] [address] Dec, [facility] [address] [facility] [id number] [address] [place] [address] Dec, [facility] [address] [facility] [id number] [address] [place] [address] Dec, [facility] [address] [facility] [id number] [address] [place] [address] Dec, Cervical stenosis of spinal canal M48.02 [facility] [address] [facility] [id number] [address] [place] [address] Dec, Left anterior shoulder pain M25.512 [facility] [address] [facility] [id number] [address] [place] [address] Dec, [facility] [address] [facility] [id number] [address] [place] [address] Dec, Nerve pain M79.2 [facility] [address] [facility] [id number] [address] [place] [address] Nov, Cervical stenosis of spinal canal M48.02 [facility] [address] [facility] [id number] [address] [place] [address] Nov, Pain syndrome, chronic G89.4 [place] [address] [address] [facility] [id number] [address] [place] [address] Oct, [facility] [address] [facility] [id number] [address] [place] [address] Oct, Cervical stenosis of spinal canal M48.02 [facility] [address] [facility] [id number] [address] [place] [address] Oct, 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 ; Cervical stenosis of spinal canal M48.02 and BMI 45.0-49.9, adult Z68.42 [place] [address] [address] [facility] [id number] [address] [place] [address] Sep, Hyperlipidemia, unspecified E78.5 [place] [address] [address] [facility] [id number] [address] [place] [address] Sep, [facility] [address] [facility] [id number] [address] [place] [address] Sep, [facility] [address] [facility] [id number] [address] [place] [address] Sep, [place] [address] [address] [place] [id number] [address] [place] [address] Aug, Other spondylosis with radic ulopathy, cervical region M47.22 [place] [address] [address] [facility] [id number] [address] [place] [address] Jul, Other spondylosis with radic ulopathy, cervical region M47.22 [facility] [address] [id number] [address] [place] [address] Jul, Other spondylosis with radic ulopathy, cervical region M47.22 [facility] [address] [id number] [address] [place] [address] Jul, Other spondylosis with radic ulopathy, cervical region M47.22 [facility] [address] [id number] [address] [place] [address] Jul, 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 and Hyperlipidemia, unspecified E78.5 [facility] [address] [id number] [address] [place] [address] Jul, [place] [id number] [id number] [address] [place] [address] Jul, Type 2 diabetes mellitus wit h other specified complication E11.69 ; Osteoarthritis of spine with radiculopathy, cervical region M47.22 ; Other spondylosis with radiculopathy, cervical region M47.22 ; S/p nephrectomy Z90.5 and Essential hypertension I10 [facility] [address] [id number] [address] [place] [address] Jun, Spondylosis of cervical hakan on without myelopathy or radiculopathy M47.812 [facility] [address] [id number] [address] [place] [address] Jun, Renal cell carcinoma of left kidney C64.2 ; S/p nephrectomy Z90.5 ; Type 2 diabetes mellitus with other specified complication E11.69 ; Essential hypertension I10 and Osteoarthritis of spine with radiculopathy, cervical region M47.22 [facility] [address] [id number] [address] [place] [address] Jun, [facility] [address] [id number] [address] [place] [address] Jun, Essential hypertension I10 [facility] [address] [id number] [address] [place] [address] May, Spondylosis of cervical hakan on without myelopathy or radiculopathy M47.812 [place] [address] [place] [address] May, [place] [address] [address] May, [facility] [address] [address] May, Skin ulcer of buttock, limit ed to breakdown of skin L98.411 [facility] [place] [address] [address] May, Fever, unspecified fever cau se R50.9 [place] [address] [address] Apr, Acute cystitis with hematuri a N30.01 and Dehydration E86.0 [place] [address] [address] [place] [id number] [place] [address] Apr, [facility] [address] [address] Apr, Dysuria R30.0 and Acute cyst itis without hematuria N30.00 [place] [address] [address] Apr, [place] [address] [address] Apr, Spondylosis of cervical hakan on without myelopathy or radiculopathy M47.812 [place] [address] [address] Apr, [facility] [address] [place] [id number] [address] [place] [address] Apr, Other spondylosis with radic ulopathy, cervical region M47.22 [place] [address] [place] [address] Apr, [facility] [address] [address] Apr, Other spondylosis with radic ulopathy, cervical region M47.22 ; Other spondylosis with myelopathy, cervical region M47.12 and Renal cell carcinoma of left kidney C64.2 [place] [id number] [place] [address] Apr, [place] [address] [place] [id number] [place] [address] Apr, Lumbago with sciatica, right side M54.41 and Lumbago with sciatica, left side M54.[address] [address] Mar, Type 2 diabetes mellitus wit hout [...] specified complication E11.69 and Hyperlipidemia, unspecified E78.5 [facility] [address] [place] [address] Mar, Acute suppurative otitis med ia of both ears without spontaneous rupture of tympanic membranes, recurrence not specified H66.003 [facility] [address] [place] [id number] [address] [place] [address] Mar, [facility] [address] [place] [id number] [address] [place] [address] Mar, 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 [facility] [address] [place] [id number] [place] [address] Mar, Low back pain, unspecified b ack pain laterality, unspecified chronicity, with sciatica presence unspecified M54.5 and Type 2 diabetes mellitus without complication, without long-term current use of insulin E11.9 [place] [address] [place] [id number] [place] [address] February, [place] [address] [place] [id number] [place] [address] February, 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 [facility] [place] [address] [address] February, Strain of neck muscle, initi al encounter S16.1XXA [address] [address] February, Type 2 diabetes mellitus wit hout [...] Seasonal allergic rhinitis due to pollen J30.1 [place] [address] [address] [place] [id number] [place] [address] February, Essential hypertension I10 ; 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 ; Body mass index (BMI) of 32.0-32.9 in adult Z68.32 and Type 2 diabetes mellitus without complication, without long-term current use of insulin E11.9 [place] [address] [place] [id number] [place] [address] February, Type 2 diabetes mellitus wit hout complication, without long-term current use of insulin E11.9 [facility] [address] [facility] [id number] [address] [place] [address] Jan, Lumbago with sciatica, right side M54.41 [facility] [address] [id number] [address] [place] [address] Jan, Sore throat J02.9 [facility] [address] [facility] [id number] [address] [place] [address] Dec, [facility] [address] [facility] [id number] [address] [place] [address] Dec, Type 2 diabetes mellitus wit hout complication, without long-term current use of insulin E11.9 [facility] [address] [facility] [id number] [address] [place] [address] 14 Dec, 2017 [facility] [address] [facility] [id number] [address] [place] [address] Dec, [facility] [address] [facility] [id number] [address] [place] [address] Dec, [facility] [address] [facility] [id number] [address] [place] [address] Dec, Type 2 diabetes mellitus wit hout [...] pollen J30.1 and GERD without esophagitis K21.9 [facility] [address] [facility] [id number] [address] [place] [address] Dec, [facility] [address] [facility] [id number] [address] [place] [address] Nov, [facility] [address] [facility] [id number] [address] [place] [address] Nov, [facility] [address] [facility] [id number] [address] [place] [address] Nov, [facility] [address] [facility] [id number] [address] [place] [address] Nov, [facility] [address] [facility] [id number] [address] [place] [address] Oct, [facility] [address] [facility] [id number] [address] [place] [address] Oct, [facility] [address] [facility] [id number] [address] [place] [address] Oct, [facility] [address] [facility] [id number] [address] [place] [address] Oct, Well woman exam with routine gynecological exam Z01.419 ; Screen for STD (sexually transmitted disease) Z11.3 ; Screening breast examination Z12.31 ; Type 2 diabetes mellitus without complication, without long-term current use of insulin E11.9 ; Other obesity due to excess calories E66.09 and Body mass index (BMI) of 32.0-32.9 in adult Z68.32 [facility] [address] [facility] [id number] [address] [place] [address] Oct, Ganglion of left wrist M67.4 32 [facility] [address] [facility] [id number] [address] [place] [address] Oct, [facility] [address] [place] [id number] [address] [place] [address] Oct, [facility] [address] [facility] [id number] [address] [place] [address] Oct, Ganglion cyst M67.40 [facility] [address] [facility] [id number] [address] [place] [address] Oct, [facility] [address] [facility] [id number] [address] [place] [address] Sep, [facility] [address] [facility] [id number] [address] [place] [address] Sep, Major depressive disorder, r ecurrent episode, moderate F33.1 [facility] [address] [id number] [address] [place] [address] Sep, [facility] [address] [id number] [address] [place] [address] Sep, Right renal mass N28.89 [facility] [address] [id number] [address] [place] [address] Sep, [facility] [address] [facility] [id number] [address] [place] [address] Sep, [facility] [address] [facility] [id number] [address] [place] [address] Sep, Right renal mass N28.89 [facility] [address] [id number] [address] [place] [address] Sep, [facility] [address] [facility] [id number] [address] [place] [address] Sep, [facility] [address] [facility] [id number] [address] [place] [address] Sep, [facility] [address] [id number] [address] [place] [address] Sep, [facility] [address] [facility] [id number] [address] [place] [address] Sep, [facility] [address] [facility] [id number] [address] [place] [address] Sep, [facility] [address] [facility] [id number] [address] [place] [address] Sep, Pulmonary nodule R91.1 [facility] [address] [place] [address] Aug, [place] [address] [place] [id number] [place] [address] Aug, Right renal mass N28.89 and Pulmonary nodule R91.1 [place] [address] [place] [id number] [address] [place] [address] 16 Aug, 2017 Essential hypertension I10 ; Right renal mass N28.89 ; Chronic gastric ulcer, unspecified whether gastric ulcer hemorrhage or perforation present K25.7 ; Spondylosis of cervical region without myelopathy or radiculopathy M47.812 ; 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 and Hospital discharge follow-up Z09 [place] [address] [address] 14 Aug, 2017 [place] [address] [address] 09 Aug, 2017 [place] [address] [address] Aug, [place] [address] [address] Aug, Pain syndrome, chronic G89.4 ; Lumbago with sciatica, right side M54.41 ; Lumbago with sciatica, left side M54.42 ; Other chronic pain G89.29 ; Cervicalgia M54.2 ; Controlled substance agreement signed Z79.899 and Essential hypertension I10 [place] [address] [place] [id number] [address] [place] [address] Aug, [place] [address] [place] [id number] [place] [address] Jul, Encounter to establish care Z76.89 ; [...] SOCIAL HISTORY Never Assessed REASON FOR VISIT Nerve Pain , patient states she had surgery and doesn't know if the jey n she is having is relate it, having hard time to use her rt arm _ _ toma garica PLAN OF CARE Activity Details Follow Up if not improving with PCP or reg follow up Reason: VITAL SIGNS Height 68 in 2019-01-03 Heart Rate 66 bpm 2019-01-03 Respiratory Rate 18 2019-01-03 Oximetry 100 % 2019-01-03 Blood pressure systolic 132 mmHg 2019-01-03 Blood pressure diastolic 76 mmHg 2019-01-03 MEDICATIONS Medication Instructions Dosage Frequency Start Date End Date Duration S letius Sertraline HCl 25 MG TAKE ONE TABLET BY MOUTH ONCE DAILY 30 Active Dexilant 60 MG TAKE ONE CAPSULE BY MOUTH ONCE DAILY 90 Active Accu-Chek Soft Touch Lancets - as directed 8h February, 30 days Active Metoprolol Tartrate 100 MG TAKE ONE TABLET BY MOUTH TWICE DAILY WITH FOOD 30 Active Blood Glucose Test Strip - In Vitro 3 times a day as directed 8h February, Active Accu-Chek Soft Touch Device - as directed 8h February, Active Pioglitazone HCl-Metformin HCl 15-500 MG Orally Once a day 1 tab let with a meal 24h Active Oxycodone-Acetaminophen 7.5-325 MG Orally every 6 hrs 1 tablet 6h Nov, Active Sucralfate 1 GM Orally 4 times a day 1 tablet 6h Active Atorvastatin Calcium 20 mg Orally Once a day 1 tablet 24h 30 Active Aspirin 81 MG Orally Once a day 1 tablet 24h Active Centrum Silver 50+Women - Active Fluticasone Propionate 50 MCG/ACT Nasally Once a day 1 spray in each nostril 24h Dec, Active Tizanidine HCl 4 mg Orally Three times a day 1 capsule as needed 8h 30 Active Onglyza 5 mg Orally Once a day 1 tablet 24h Active RESULTS Name Result Date Reference Range Xray : Shoulder, Left 2 view (IN HOUSE) PROCEDURES Procedure Date Ordered Result Body Site X-RAY EXAM OF SHOULDER January 03, 2019 INSTRUCTIONS MEDICATIONS ADMINISTERED No Known Medications MEDICAL [...] entry 09/27/2018 Hospitalization History heart attack x3 [id number] 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 Hospitalization History left kidney removal 06/2018 Hospitalization History surgery 09/27/2018
--- OUTSIDE RECORDS SUMMARY | 2020-01-21 19:04 | XMS REPORT ---
Author Author Amy SNELL Organization [facility] Address [address] [place] [address] Care Team Providers Care [employer] Technician Name Role Phone KING ROSA Unavailable PROBLEMS Type Condition ICD9-CM Code JKI23-GN Code Onset Dates Condition S tatus SNOMED Code Problem Left kidney mass N28.89 Active 309 279588 Problem Cervical stenosis of spinal canal M48.02 Active 56100719 Problem Type 2 diabetes mellitus wit hout complication, without long-term current use of insulin E11.9 Active 586039431 Problem Chronic esophagogastric ulcer K25.7 Active 73707738 Problem Metabolic disorder, unspecified E88.9 Active 498383188 Problem 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 3 Active 252780314 Problem Right renal mass N28.89 Active 309 547768 Problem Pain syndrome, chronic G89.4 Active 789472673 Problem Pulmonary nodule R91.1 Active 427 640684 Problem 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 Ac tive 348140906 Problem Other obesity due to excess calories E66.09 Active 403225023 Problem Body mass index (BMI) of 32.0-32.9 in adult Z68.32 Active 558851186 Problem GERD without esophagitis K21.9 Activ e 093969317 Problem Major depressive disorder, recurrent episode, moderate F33.1 Active 442015995 Problem Seasonal allergic rhinitis due to pollen J30.1 Active 95239552 Problem Renal cell carcinoma of left kidney C64.2 Active 808592209 Problem Hyperlipidemia, unspecified E78.5 Ac tive 32614860 Problem S/p nephrectomy Z90.5 Active 1616 28268 Problem Lumbago with sciatica, right side M54.41 Active 924069256401809 Problem Other chronic pain G89.29 Active 8 5160580 Problem Lumbago with sciatica, left side M54.42 Active 095285175 Problem Essential hypertension I10 Active 37565557 Problem Type 2 diabetes mellitus with other specified complication E11.69 Active 18449664230806 Problem Other spondylosis with radiculopathy, cervical region M47.22 Active 549893302 Problem Other spondylosis with myelopathy, cervical region M47.12 Active 52434306 Problem Osteoarthritis of spine with radiculopathy, cervical regio n M47.22 Active 534074551 ALLERGIES No Information ENCOUNTERS Encounter Location Date Diagnosis [place] [address] [address] May, [facility] [place] [address] [address] Apr, Non-recurrent acute suppurat cheri otitis media of left ear without spontaneous rupture of tympanic membrane H66.002 and Sore throat J02.9 [facility] [place] [address] [address] [place] [id number] [address] Apr, Fatigue, unspecified type R5 3.83 and Enlarged lymph nodes in armpit R59.0 [place] [address] [place] [id number] [address] Apr, [facility] IN [facility] [address] [address] Apr, Axillary lymphadenopathy R59 .0 [place] [address] [address] [place] [id number] [address] [address] Mar, Cervical stenosis of spinal canal M48.[address] [address] February, Cervical stenosis of spinal canal M48.02 [place] [address] [address] [place] [id number] [address] [address] February, Type 2 diabetes mellitus wit h other specified complication E11.69 and Left anterior shoulder pain M25.512 [facility] IN [facility] [address] [facility] [id number] [address] [place] [address] February, Left-sided chest wall pain R 07.89 ; Neck pain M54.2 and Fall, initial encounter W19.XXXA [place] [address] N [facility] [id number] [address] [place] [address] Jan, Type 2 diabetes mellitus wit hout complication, without long-term current use of insulin E11.9 and Type 2 diabetes mellitus with other specified complication E11.69 [place] [address] [address] [facility] [id number] [address] [place] [address] Jan, [place] [address] [address] Jan, [place] [address] [address] Jan, Seasonal allergic rhinitis d ue to pollen J30.1 [place] [address] [address] [place] [id number] [place] [address] Jan, Cervical stenosis of spinal canal M48.02 [place] [address] [address] Jan, [place] [address] [address] Jan, Type 2 diabetes mellitus wit hout complication, without long-term current use of insulin E11.9 ; Essential hypertension I10 ; Hyperlipidemia, unspecified E78.5 ; Other chronic pain G89.29 and Pain in left shoulder M25.512 [facility] [address] [facility] [id number] [address] [place] [address] Dec, Left arm pain M79.602 ; Acut e pain of left shoulder M25.512 and Pain syndrome, chronic G89.4 [id number] [place] [id number] Dec, [place] [address] [address] [facility] [id number] [address] [place] [address] Dec, Well woman exam without gyne cological exam Z00.00 and Breast cancer screening Z12.31 [place] [address] [address] [place] [id number] [address] [place] [address] Dec, [facility] [address] [id number] [address] [place] [address] Dec, [facility] [address] [id number] [address] [place] [address] Dec, [facility] [address] [id number] [address] [place] [address] Dec, Cervical stenosis of spinal canal M48.02 [facility] [address] [id number] [address] [place] [address] Dec, Left anterior shoulder pain M25.512 [facility] [address] [id number] [address] [place] [address] Dec, [facility] [address] [id number] [address] [place] [address] Dec, Nerve pain M79.2 [facility] [address] [id number] [address] [place] [address] Nov, Cervical stenosis of spinal canal M48.02 [facility] [address] [id number] [address] [place] [address] Nov, Pain syndrome, chronic G89.4 [facility] [address] [id number] [address] [place] [address] Oct, [facility] [address] [facility] [id number] [address] [place] [address] Oct, Cervical stenosis of spinal canal M48.02 [facility] [address] [id number] [address] [place] [address] Oct, 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 ; Cervical stenosis of spinal canal M48.02 and BMI 45.0-49.9, adult Z68.42 [facility] [address] [id number] [address] [place] [address] Sep, Hyperlipidemia, unspecified E78.5 [facility] [address] [id number] [address] [place] [address] 18 Sep, 2018 [facility] [address] [id number] [address] [place] [address] Sep, [facility] [address] [id number] [address] [place] [address] 05 Sep, 2018 [facility] [address] [id number] [address] [place] [address] Aug, Other spondylosis with radic ulopathy, cervical region M47.22 [facility] [address] [id number] [address] [place] [address] Jul, Other spondylosis with radic ulopathy, cervical region M47.22 [facility] [address] [id number] [address] [place] [address] Jul, Other spondylosis with radic ulopathy, cervical region M47.22 [facility] [address] [id number] [address] [place] [address] Jul, Other spondylosis with radic ulopathy, cervical region M47.22 [facility] [address] [facility] [id number] [address] [place] [address] Jul, 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 and Hyperlipidemia, unspecified E78.5 [facility] [address] [id number] [address] [place] [address] Jul, [facility] [address] [facility] [id number] [address] [place] [address] Jul, Type 2 diabetes mellitus wit h other specified complication E11.69 ; Osteoarthritis of spine with radiculopathy, cervical region M47.22 ; Other spondylosis with radiculopathy, cervical region M47.22 ; S/p nephrectomy Z90.5 and Essential hypertension I10 [facility] [address] [id number] [address] [place] [address] Jun, Spondylosis of cervical hakan on without myelopathy or radiculopathy M47.812 [place] [address] [address] Jun, Renal cell carcinoma of left kidney C64.2 ; S/p nephrectomy Z90.5 ; Type 2 diabetes mellitus with other specified complication E11.69 ; Essential hypertension I10 and Osteoarthritis of spine with radiculopathy, cervical region M47.22 [place] [address] [address] Jun, [place] [address] [address] Jun, Essential hypertension I10 [place] [address] [address] May, Spondylosis of cervical hakan on without myelopathy or radiculopathy M47.812 [place] [address] [address] May, [place] [address] [address] May, [facility] [address] [address] May, Skin ulcer of buttock, limit ed to breakdown of skin L98.411 [facility] [address] [address] May, Fever, unspecified fever cau se R50.9 [place] [address] [address] Apr, Acute cystitis with hematuri a N30.01 and Dehydration E86.0 [place] [address] [address] Apr, [facility] [address] [address] Apr, Dysuria R30.0 and Acute cyst itis without hematuria N30.00 [place] [address] [place] [id number] [address] [place] [address] Apr, [facility] [address] [id number] [address] [place] [address] Apr, Spondylosis of cervical hakan on without myelopathy or radiculopathy M47.812 [facility] [address] [id number] [address] [place] [address] Apr, [facility] [address] [id number] [address] [place] [address] Apr, Other spondylosis with radic ulopathy, cervical region M47.22 [facility] [address] [id number] [address] [place] [address] Apr, [facility] [address] [id number] [address] [place] [address] Apr, Other spondylosis with radic ulopathy, cervical region M47.22 ; Other spondylosis with myelopathy, cervical region M47.12 and Renal cell carcinoma of left kidney C64.2 [facility] [address] [id number] [address] [place] [address] Apr, [facility] [address] [facility] [id number] [address] [place] [address] Apr, Lumbago with sciatica, right side M54.41 and Lumbago with sciatica, left side M54.42 [facility] [address] [id number] [address] [place] [address] Mar, Type 2 diabetes mellitus wit hout [...] specified complication E11.69 and Hyperlipidemia, unspecified E78.5 [facility] WALK IN [address] [address] Mar, Acute suppurative otitis med ia of both ears without spontaneous rupture of tympanic membranes, recurrence not specified H66.[address] [address] Mar, [place] [address] [address] Mar, 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 [address] Mar, Low back pain, unspecified b ack pain laterality, unspecified chronicity, with sciatica presence unspecified M54.5 and Type 2 diabetes mellitus without complication, without long-term current use of insulin E11.9 [place] [address] [address] February, [address] [address] February, 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 [address] February, Strain of neck muscle, initi al encounter S16.1XXA [address] [address] February, Type 2 diabetes mellitus wit hout [...] Seasonal allergic rhinitis due to pollen J30.1 [facility] [address] [facility] [id number] [address] [place] [address] February, Essential hypertension I10 ; 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 ; Body mass index (BMI) of 32.0-32.9 in adult Z68.32 and Type 2 diabetes mellitus without complication, without long-term current use of insulin E11.9 [place] [address] [address] [facility] [id number] [address] [place] [address] February, Type 2 diabetes mellitus wit hout complication, without long-term current use of insulin E11.9 [place] [address] [address] [facility] [id number] [address] [place] [address] Jan, Lumbago with sciatica, right side M54.41 [facility] [address] [facility] [id number] [address] [place] [address] Jan, Sore throat J02.9 [facility] [address] [facility] [id number] [address] [place] [address] Dec, [place] [address] [address] [facility] [id number] [address] [place] [address] Dec, Type 2 diabetes mellitus wit hout complication, without long-term current use of insulin E11.9 [place] [address] [address] [facility] [id number] [address] [place] [address] Dec, [facility] [address] [facility] [id number] [address] [place] [address] Dec, [place] [address] [address] [facility] [id number] [address] [place] [address] Dec, [place] [address] [address] [facility] [id number] [address] [place] [address] Dec, Type 2 diabetes mellitus wit hout [...] pollen J30.1 and GERD without esophagitis K21.9 [facility] [address] [id number] [address] [place] [address] Dec, [facility] [address] [id number] [address] [place] [address] Nov, [facility] [address] [id number] [address] [place] [address] Nov, [facility] [address] [id number] [address] [place] [address] Nov, [facility] [address] [id number] [address] [place] [address] Nov, [facility] [address] [id number] [address] [place] [address] Oct, [facility] [address] [id number] [address] [place] [address] Oct, [facility] [address] [id number] [address] [place] [address] 16 Oct, 2017 [facility] [address] [id number] [address] [place] [address] 11 Oct, 2017 Well woman exam with routine gynecological exam Z01.419 ; Screen for STD (sexually transmitted disease) Z11.3 ; Screening breast examination Z12.31 ; Type 2 diabetes mellitus without complication, without long-term current use of insulin E11.9 ; Other obesity due to excess calories E66.09 and Body mass index (BMI) of 32.0-32.9 in adult Z68.32 [facility] [address] [id number] [address] [place] [address] Oct, Ganglion of left wrist M67.4 32 [facility] [address] [facility] [id number] [address] [place] [address] Oct, [facility] [address] [facility] [id number] [address] [place] [address] Oct, [facility] [address] [id number] [address] [place] [address] Oct, Ganglion cyst M67.40 [facility] [address] [facility] [id number] [address] [place] [address] Oct, [facility] [address] [facility] [id number] [address] [place] [address] Sep, [facility] [address] [facility] [id number] [address] [place] [address] Sep, Major depressive disorder, r ecurrent episode, moderate F33.1 [facility] [address] [id number] [address] [place] [address] Sep, [facility] [address] [facility] [id number] [address] [place] [address] Sep, Right renal mass N28.89 [facility] [address] [facility] [id number] [address] [place] [address] Sep, [facility] [address] [facility] [id number] [address] [place] [address] Sep, [facility] [address] [facility] [id number] [address] [place] [address] Sep, Right renal mass N28.89 [facility] [address] [facility] [id number] [address] [place] [address] Sep, [facility] [address] [facility] [id number] [address] [place] [address] Sep, [facility] [address] [facility] [id number] [address] [place] [address] Sep, [facility] [address] [facility] [id number] [address] [place] [address] Sep, [facility] [address] [place] [id number] [place] [address] Sep, [facility] [address] [place] [id number] [place] [address] Sep, [facility] [address] [place] [id number] [place] [address] Sep, Pulmonary nodule R91.1 [place] [address] [address] [place] [id number] [place] [address] Aug, [facility] [address] [place] [id number] [place] [address] Aug, Right renal mass N28.89 and Pulmonary nodule R91.1 [place] [address] [address] Aug, Essential hypertension I10 ; Right renal mass N28.89 ; Chronic gastric ulcer, unspecified whether gastric ulcer hemorrhage or perforation present K25.7 ; Spondylosis of cervical region without myelopathy or radiculopathy M47.812 ; 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 and Hospital discharge follow-up Z09 [place] [address] [place] [id number] [address] [place] [address] 14 Aug, 2017 [facility] [address] [place] [id number] [place] [address] Aug, [facility] [address] [place] [id number] [place] [address] Aug, [place] [address] [address] Aug, Pain syndrome, chronic G89.4 ; Lumbago with sciatica, right side M54.41 ; Lumbago with sciatica, left side M54.42 ; Other chronic pain G89.29 ; Cervicalgia M54.2 ; Controlled substance agreement signed Z79.899 and Essential hypertension I10 [facility] [address] [facility] [id number] [address] [place] [address] Aug, [facility] [address] [facility] [id number] [address] [address] Jul, Encounter to establish care Z76.89 ; [...] entry 09/27/2018 Hospitalization History heart attack x3 [id number] 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 Hospitalization History left kidney removal 06/2018 Hospitalization History surgery 09/27/2018
--- OUTSIDE RECORDS SUMMARY | 2020-01-21 19:04 | XMS REPORT ---
Author Author Amy SNELL Organization [facility] [place] Address [address] [place] [address] Care Team Providers Care Test Director Name Role Phone KING ROSA Unavailable PROBLEMS Type Condition ICD9-CM Code EGA29-VI Code Onset Dates Condition S tatus SNOMED Code Problem Left kidney mass N28.89 Active 309 254262 Problem Cervical stenosis of spinal canal M48.02 Active 42518983 Problem Type 2 diabetes mellitus wit hout complication, without long-term current use of insulin E11.9 Active 073520766 Problem Chronic esophagogastric ulcer K25.7 Active 06388089 Problem Metabolic disorder, unspecified E88.9 Active 899878275 Problem 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 3 Active 968492744 Problem Right renal mass N28.89 Active 309 371109 Problem Pain syndrome, chronic G89.4 Active 806450840 Problem Pulmonary nodule R91.1 Active 427 549409 Problem 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 Ac tive 767659860 Problem Other obesity due to excess calories E66.09 Active 957003141 Problem Body mass index (BMI) of 32.0-32.9 in adult Z68.32 Active 027859069 Problem GERD without esophagitis K21.9 Activ e 818477420 Problem Major depressive disorder, recurrent episode, moderate F33.1 Active 110240155 Problem Seasonal allergic rhinitis due to pollen J30.1 Active 11741841 Problem Renal cell carcinoma of left kidney C64.2 Active 526860601 Problem Hyperlipidemia, unspecified E78.5 Ac tive 38362961 Problem S/p nephrectomy Z90.5 Active 1616 47596 Problem Lumbago with sciatica, right side M54.41 Active [id number] Problem Other chronic pain G89.29 Active 8 1859710 Problem Lumbago with sciatica, left side M54.42 Active 010526871 Problem Essential hypertension I10 Active 40584278 Problem Type 2 diabetes mellitus with other specified complication E11.69 Active [id number] Problem Other spondylosis with radiculopathy, cervical region M47.22 Active 657739722 Problem Other spondylosis with myelopathy, cervical region M47.12 Active 50453664 Problem Osteoarthritis of spine with radiculopathy, cervical regio n M47.22 Active 345243144 ALLERGIES No Information ENCOUNTERS Encounter Location Date Diagnosis [place] [address] [address] May, Type 2 diabetes mellitus wit hout complication, without long-term current use of insulin E11.9 ; Encounter for immunization Z23 ; Cervical stenosis of spinal canal M48.02 and Major depressive disorder, recurrent episode, moderate F33.1 [place] [address] [address] May, Cervical stenosis of spinal canal M48.02 [place] [address] [address] May, Breast pain, left N64.4 [facility] [place] [id number] [address] Apr, [facility] [place] [address] [address] Apr, Acute bronchitis, unspecifie d organism J20.9 ; Chest pain, unspecified type R07.9 and Shortness of breath R06.02 [place] [address] [address] [place] [id number] [place] [phone] Apr, Cervical stenosis of spinal canal M48.02 [facility] [place] [address] [address] [place] [id number] [place] [address] Apr, Non-recurrent acute suppurat cheri otitis media of left ear without spontaneous rupture of tympanic membrane H66.002 and Sore throat J02.9 [facility] [place] [address] [place] [id number] [place] [address] Apr, Fatigue, unspecified type R5 3.83 and Enlarged lymph nodes in armpit R59.0 [facility] [place] [address] [facility] [id number] [address] [place] [phone] Apr, [facility] [address] [facility] [id number] [address] [place] [phone] Apr, Axillary lymphadenopathy R59 .0 [facility] [place] [address] [facility] [id number] [address] [place] [phone] Mar, Cervical stenosis of spinal canal M48.[address] [address] February, Cervical stenosis of spinal canal M48.02 [place] [address] [address] [facility] [id number] [address] [place] [address] February, Type 2 diabetes mellitus wit h other specified complication E11.69 and Left anterior shoulder pain M25.512 [facility] [address] [place] [id number] [place] [address] February, Left-sided chest wall pain R 07.89 ; Neck pain M54.2 and Fall, initial encounter W19.XXXA [place] [address] [address] Jan, Type 2 diabetes mellitus wit hout complication, without long-term current use of insulin E11.9 and Type 2 diabetes mellitus with other specified complication E11.69 [place] [address] [address] [place] [id number] [place] [id number] Jan, [place] [address] [address] [facility] [id number] [address] [place] [phone] Jan, [place] [address] [address] [facility] [id number] [address] [place] [phone] Jan, Seasonal allergic rhinitis d ue to pollen J30.1 [place] [address] [address] [facility] [id number] [address] [place] [phone] Jan, Cervical stenosis of spinal canal M48.02 [place] [address] [address] [facility] [id number] [address] [place] [phone] 15 Jan, 2019 [facility] [place] [address] [id number] [address] [place] [phone] 05 Jan, 2019 Type 2 diabetes mellitus wit hout complication, without long-term current use of insulin E11.9 ; Essential hypertension I10 ; Hyperlipidemia, unspecified E78.5 ; Other chronic pain G89.29 and Pain in left shoulder M25.512 [facility] [address] [facility] [id number] [address] [place] [phone] 30 Dec, 2018 Left arm pain M79.602 ; Acut e pain of left shoulder M25.512 and Pain syndrome, chronic G89.[address] [place] [id number] [place] [id number] Dec, [place] [address] [address] [facility] [id number] [address] [place] [phone] Dec, Well woman exam without gyne cological exam Z00.00 and Breast cancer screening Z12.31 [place] [address] [address] [facility] [id number] [address] [place] [phone] Dec, [place] [address] [address] [facility] [id number] [address] [place] [phone] Dec, [facility] [place] [address] [facility] [id number] [address] [place] [phone] Dec, [place] [address] [address] [facility] [id number] [address] [place] [phone] Dec, Cervical stenosis of spinal canal M48.02 [facility] [place] [address] [facility] [id number] [address] [place] [phone] Dec, Left anterior shoulder pain M25.512 [facility] [place] [address] [facility] [id number] [address] [place] [phone] Dec, [facility] [address] [facility] [id number] [address] [place] [phone] 06 Dec, 2018 Nerve pain M79.2 [place] [address] [id number] [address] [place] [phone] Nov, Cervical stenosis of spinal canal M48.02 [facility] [place] [address] [id number] [address] [place] [phone] Nov, Pain syndrome, chronic G89.4 [facility] [place] [address] [id number] [address] [place] [phone] Oct, [facility] [place] [address] [id number] [address] [place] [phone] Oct, Cervical stenosis of spinal canal M48.02 [place] [address] [id number] [address] [place] [phone] Oct, 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 ; Cervical stenosis of spinal canal M48.02 and BMI 45.0-49.9, adult Z68.42 [place] [address] [id number] [address] [place] [phone] Sep, Hyperlipidemia, unspecified E78.5 [facility] [place] [address] [id number] [address] [place] [phone] Sep, [place] [address] [id number] [address] [place] [phone] Sep, [place] [address] [id number] [address] [place] [phone] Sep, [facility] [place] [address] [id number] [address] [place] [phone] Aug, Other spondylosis with radic ulopathy, cervical region M47.22 [facility] [place] [address] [id number] [address] [place] [phone] Jul, Other spondylosis with radic ulopathy, cervical region M47.22 [facility] [place] [address] [id number] [address] [place] [phone] Jul, Other spondylosis with radic ulopathy, cervical region M47.22 [facility] [place] [address] [id number] [address] [place] [phone] Jul, Other spondylosis with radic ulopathy, cervical region M47.22 [place] [address] [id number] [address] [place] [phone] Jul, 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 and Hyperlipidemia, unspecified E78.5 [place] [address] [id number] [address] [place] [phone] Jul, [place] [address] [id number] [address] [place] [phone] Jul, Type 2 diabetes mellitus wit h other specified complication E11.69 ; Osteoarthritis of spine with radiculopathy, cervical region M47.22 ; Other spondylosis with radiculopathy, cervical region M47.22 ; S/p nephrectomy Z90.5 and Essential hypertension I10 [place] [address] [id number] [address] [place] [address] Jun, Spondylosis of cervical hakan on without myelopathy or radiculopathy M47.812 [place] [address] [id number] [address] [place] [phone] Jun, Renal cell carcinoma of left kidney C64.2 ; S/p nephrectomy Z90.5 ; Type 2 diabetes mellitus with other specified complication E11.69 ; Essential hypertension I10 and Osteoarthritis of spine with radiculopathy, cervical region M47.22 [place] [address] [id number] [address] [place] [phone] Jun, [place] [address] [id number] [address] [place] [phone] Jun, Essential hypertension I10 [place] [address] [id number] [address] [place] [phone] May, Spondylosis of cervical hakan on without myelopathy or radiculopathy M47.812 [place] [address] [id number] [address] [place] [phone] May, [facility] [place] [address] [place] [id number] [address] [place] [phone] May, [facility] [address] [place] [id number] [address] [place] [id number] May, Skin ulcer of buttock, limit ed to breakdown of skin L98.411 [facility] [address] [phone] May, Fever, unspecified fever cau se R50.9 [place] [address] [address] Apr, Acute cystitis with hematuri a N30.01 and Dehydration E86.0 [place] [address] [address] [place] [id number] [place] [phone] Apr, [facility] [address] [address] Apr, Dysuria R30.0 and Acute cyst itis without hematuria N30.00 [place] [address] [address] Apr, [place] [address] [place] [id number] [place] [address] Apr, Spondylosis of cervical hakan on without myelopathy or radiculopathy M47.812 [place] [address] [address] [place] [id number] [address] [place] [phone] Apr, [facility] [address] [place] [id number] [address] [place] [phone] Apr, Other spondylosis with radic ulopathy, cervical region M47.22 [facility] [place] [address] [place] [id number] [address] [place] [phone] Apr, [facility] [place] [address] [place] [id number] [address] [place] [phone] Apr, Other spondylosis with radic ulopathy, cervical region M47.22 ; Other spondylosis with myelopathy, cervical region M47.12 and Renal cell carcinoma of left kidney C64.2 [place] [address] [address] Apr, [place] [address] [address] Apr, Lumbago with sciatica, right side M54.41 and Lumbago with sciatica, left side M54.42 [place] [address] [place] [id number] [address] [place] [phone] Mar, Type 2 diabetes mellitus wit hout [...] specified complication E11.69 and Hyperlipidemia, unspecified E78.5 [facility] [address] [address] Mar, Acute suppurative otitis med ia of both ears without spontaneous rupture of tympanic membranes, recurrence not specified H66.003 [place] [id number] [place] [phone] Mar, [place] [id number] [place] [phone] Mar, 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 [facility] [address] [place] [id number] [place] [id number] Mar, Low back pain, unspecified b ack pain laterality, unspecified chronicity, with sciatica presence unspecified M54.5 and Type 2 diabetes mellitus without complication, without long-term current use of insulin E11.9 [place] [address] [facility] [id number] [address] [place] [phone] February, [place] [address] [address] [facility] [id number] [address] [place] [phone] February, 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 [facility] [place] [id number] [address] [place] [phone] February, Strain of neck muscle, initi al encounter S16.1XXA [place] [address] [facility] [id number] [address] [place] [phone] February, Type 2 diabetes mellitus wit hout [...] Seasonal allergic rhinitis due to pollen J30.1 [place] [address] [facility] [id number] [address] [place] [phone] February, Essential hypertension I10 ; 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 ; Body mass index (BMI) of 32.0-32.9 in adult Z68.32 and Type 2 diabetes mellitus without complication, without long-term current use of insulin E11.9 [place] [address] [facility] [id number] [address] [place] [phone] February, Type 2 diabetes mellitus wit hout complication, without long-term current use of insulin E11.9 [place] [address] [facility] [id number] [address] [place] [phone] Jan, Lumbago with sciatica, right side M54.41 [facility] [place] [address] [facility] [id number] [address] [place] [phone] Jan, Sore throat J02.9 [facility] [place] [address] [facility] [id number] [address] [place] [phone] Dec, [facility] [place] [address] [facility] [id number] [address] [place] [phone] 19 Dec, 2017 Type 2 diabetes mellitus wit hout complication, without long-term current use of insulin E11.9 [facility] [place] [address] [facility] [id number] [address] [place] [phone] 14 Dec, 2017 [facility] [place] [address] [facility] [id number] [address] [place] [phone] 14 Dec, 2017 [facility] [place] [address] [place] [id number] [address] [place] [phone] Dec, [place] [address] [address] [place] [id number] [place] [phone] Dec, Type 2 diabetes mellitus wit hout [...] pollen J30.1 and GERD without esophagitis K21.9 [facility] [place] [address] [facility] [id number] [address] [place] [phone] Dec, [facility] [place] [address] [facility] [id number] [address] [place] [phone] Nov, [facility] [place] [address] [place] [id number] [address] [place] [phone] Nov, [facility] [place] [address] [facility] [id number] [address] [place] [id number] 14 Nov, 2017 [facility] [place] [address] [facility] [id number] [address] [place] [phone] Nov, [facility] [place] [address] [facility] [id number] [address] [place] [phone] Oct, [facility] [place] [address] [facility] [id number] [address] [place] [phone] Oct, [facility] [place] [address] [facility] [id number] [address] [place] [phone] Oct, [facility] [place] [address] [facility] [id number] [address] [place] [address] Oct, Well woman exam with routine gynecological exam Z01.419 ; Screen for STD (sexually transmitted disease) Z11.3 ; Screening breast examination Z12.31 ; Type 2 diabetes mellitus without complication, without long-term current use of insulin E11.9 ; Other obesity due to excess calories E66.09 and Body mass index (BMI) of 32.0-32.9 in adult Z68.32 [place] [address] [address] [facility] [id number] [address] [place] [phone] Oct, Ganglion of left wrist M67.4 32 [place] [address] [address] [facility] [id number] [address] [place] [phone] Oct, [facility] [place] [address] [facility] [id number] [address] [place] [phone] Oct, [facility] [address] [facility] [id number] [address] [place] [phone] Oct, Ganglion cyst M67.40 [facility] [place] [address] [facility] [id number] [address] [place] [phone] Oct, [facility] [place] [address] [facility] [id number] [address] [place] [phone] Sep, [facility] [place] [address] [facility] [id number] [address] [place] [phone] Sep, Major depressive disorder, r ecurrent episode, moderate F33.1 [facility] [place] [address] [id number] [address] [place] [phone] Sep, [facility] [place] [address] [facility] [id number] [address] [place] [phone] Sep, Right renal mass N28.89 [facility] [place] [address] [id number] [address] [place] [phone] Sep, [facility] [place] [address] [id number] [address] [place] [phone] Sep, [facility] [place] [address] [facility] [id number] [address] [place] [phone] Sep, Right renal mass N28.89 [facility] [place] [address] [facility] [id number] [address] [place] [phone] Sep, [facility] [place] [address] [facility] [id number] [address] [place] [phone] Sep, [facility] [place] [address] [facility] [id number] [address] [place] [phone] Sep, [facility] [place] [address] [facility] [id number] [address] [place] [phone] Sep, [facility] [place] [address] [facility] [id number] [address] [place] [phone] Sep, [facility] [place] [address] [facility] [id number] [address] [place] [phone] Sep, [facility] [place] [address] [facility] [id number] [address] [place] [phone] Sep, Pulmonary nodule R91.1 [facility] [place] [address] [id number] [address] [place] [phone] Aug, [facility] [place], [facility] [address] [facility] [id number] [address] [place] [id number] Aug, Right renal mass N28.89 and Pulmonary nodule R91.1 [facility] [place], [facility] [address] [place] [id number] [address] [place] [id number] 16 Aug, 2017 Essential hypertension I10 ; Right renal mass N28.89 ; Chronic gastric ulcer, unspecified whether gastric ulcer hemorrhage or perforation present K25.7 ; Spondylosis of cervical region without myelopathy or radiculopathy M47.812 ; 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 and Hospital discharge follow-up Z09 [place] [address] [id number] 14 Aug, 2017 [place] [address] [id number] Aug, [place] [address] [id number] Aug, [place] [address] [place] [id number] [place] [id number] Aug, Pain syndrome, chronic G89.4 ; Lumbago with sciatica, right side M54.41 ; Lumbago with sciatica, left side M54.42 ; Other chronic pain G89.29 ; Cervicalgia M54.2 ; Controlled substance agreement signed Z79.899 and Essential hypertension I10 [place] [address] [place] [id number] [address] [place] [id number] Aug, [place] [address] [place] [id number] [address] [place] [address] [address] Jul, Encounter to establish care Z76.89 ; [...] call PLAN OF CARE VITAL SIGNS MEDICATIONS No Known Medications RESULTS No Results PROCEDURES No Known [...] entry 09/27/2018 Hospitalization History heart attack x3 [phone] 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 Hospitalization History left kidney removal 06/2018 Hospitalization History surgery 09/27/2018
--- OUTSIDE RECORDS SUMMARY | 2020-01-21 19:04 | XMS REPORT ---
Author Author Amy SNELL Organization [facility] Address [address] [place] [address] Care Team Providers Care Editor News Name Role Phone KING ROSA Unavailable PROBLEMS Type Condition ICD9-CM Code CEO74-DW Code Onset Dates Condition S tatus SNOMED Code Problem Cervical stenosis of spinal canal M48.02 Active 78850277 Problem GERD without esophagitis K21.9 Activ e 355090246 Problem Left kidney mass N28.89 Active 309 385791 Problem 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 3 Active 098280176 Problem Chronic esophagogastric ulcer K25.7 Active 09707627 Problem Metabolic disorder, unspecified E88.9 Active 987888607 Problem Renal cell carcinoma of left kidney C64.2 Active 497780553 Problem Seasonal allergic rhinitis due to pollen J30.1 Active 73453327 Problem S/p nephrectomy Z90.5 Active 1616 14894 Problem Osteoarthritis of spine with radiculopathy, cervical regio n M47.22 Active 566936419 Problem Lumbago with sciatica, right side M54.41 Active 848999157125187 Problem Lumbago with sciatica, left side M54.42 Active 342322176 Problem Type 2 diabetes mellitus wit hout complication, without long-term current use of insulin E11.9 Active 210786069 Problem Type 2 diabetes mellitus with other specified complication E11.69 Active 20877358026737 Problem Hyperlipidemia, unspecified E78.5 Ac tive 24870842 Problem Other spondylosis with myelopathy, cervical region M47.12 Active 03949627 Problem Other spondylosis with radiculopathy, cervical region M47.22 Active 943934381 Problem Right renal mass N28.89 Active 309 332358 Problem 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 Ac tive 045096053 Problem Essential hypertension I10 Active 45244143 Problem Pain syndrome, chronic G89.4 Active 624375923 Problem Other obesity due to excess calories E66.09 Active 777981476 Problem Major depressive disorder, recurrent episode, moderate F33.1 Active 759698690 Problem Pulmonary nodule R91.1 Active 427 454132 Problem Body mass index (BMI) of 32.0-32.9 in adult Z68.32 Active 652040960 ALLERGIES No Information ENCOUNTERS Encounter Location Date Diagnosis [place] [address] [address] [facility] [id number] [address] [place] [address] Sep, [place] [address] [address] [facility] [id number] [address] [place] [address] Aug, Other spondylosis with radic ulopathy, cervical region M47.22 [place] [address] [address] [place] [id number] [place] [address] Jul, Other spondylosis with radic ulopathy, cervical region M47.22 [place] [address] [address] [place] [id number] [address] [place] [address] Jul, Other spondylosis with radic ulopathy, cervical region M47.22 [place] [address] [address] [facility] [id number] [address] [place] [address] Jul, Other spondylosis with radic ulopathy, cervical region M47.22 [place] [address] [address] [place] [id number] [address] [place] [address] Jul, 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 and Hyperlipidemia, unspecified E78.5 [place] [address] [address] [place] [id number] [address] [place] [address] Jul, [place] [address] [address] [place] [id number] [address] [place] [address] Jul, Type 2 diabetes mellitus wit h other specified complication E11.69 ; Osteoarthritis of spine with radiculopathy, cervical region M47.22 ; Other spondylosis with radiculopathy, cervical region M47.22 ; S/p nephrectomy Z90.5 and Essential hypertension I10 [place] [address] [address] [place] [id number] [address] [place] [address] Jun, Spondylosis of cervical hakan on without myelopathy or radiculopathy M47.812 [place] [address] [address] Jun, Renal cell carcinoma of left kidney C64.2 ; S/p nephrectomy Z90.5 ; Type 2 diabetes mellitus with other specified complication E11.69 ; Essential hypertension I10 and Osteoarthritis of spine with radiculopathy, cervical region M47.22 [place] [address] [address] Jun, [place] [address] [address] Jun, Essential hypertension I10 [place] [address] [address] May, Spondylosis of cervical hakan on without myelopathy or radiculopathy M47.812 [place] [address] [address] May, [place] [address] [address] May, [facility] [place] [address] [address] May, Skin ulcer of buttock, limit ed to breakdown of skin L98.411 [facility] [address] May, Fever, unspecified fever cau se R50.9 [place] [address] [address] Apr, Acute cystitis with hematuri a N30.01 and Dehydration E86.0 [place] [address] [address] Apr, [facility] [address] [address] Apr, Dysuria R30.0 and Acute cyst itis without hematuria N30.00 [facility] [address] [id number] [address] [place] [address] Apr, [facility] [address] [id number] [address] [place] [address] Apr, Spondylosis of cervical hakan on without myelopathy or radiculopathy M47.812 [facility] [address] [id number] [address] [place] [address] Apr, [facility] [address] [id number] [address] [place] [address] Apr, Other spondylosis with radic ulopathy, cervical region M47.22 [facility] [address] [id number] [address] [place] [address] Apr, [facility] [address] [facility] [id number] [address] [place] [address] Apr, Other spondylosis with radic ulopathy, cervical region M47.22 ; Other spondylosis with myelopathy, cervical region M47.12 and Renal cell carcinoma of left kidney C64.2 [facility] [address] [id number] [address] [place] [address] Apr, [facility] [address] [id number] [address] [place] [address] Apr, Lumbago with sciatica, right side M54.41 and Lumbago with sciatica, left side M54.42 [facility] [address] [id number] [address] [place] [address] Mar, Type 2 diabetes mellitus wit hout [...] specified complication E11.69 and Hyperlipidemia, unspecified E78.5 [facility] [place] [address] [address] Mar, Acute suppurative otitis med ia of both ears without spontaneous rupture of tympanic membranes, recurrence not specified H66.003 [place] [address] [address] Mar, [place] [address] [address] Mar, 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 [place] [address] [address] Mar, Low back pain, unspecified b ack pain laterality, unspecified chronicity, with sciatica presence unspecified M54.5 and Type 2 diabetes mellitus without complication, without long-term current use of insulin E11.9 [place] [address] [address] February, [place] [address] [address] February, 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 [address] February, Strain of neck muscle, initi al encounter S16.1XXA [address] [address] February, Type 2 diabetes mellitus wit hout [...] Seasonal allergic rhinitis due to pollen J30.1 [facility] [address] [id number] [address] [place] [address] February, Essential hypertension I10 ; 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 ; Body mass index (BMI) of 32.0-32.9 in adult Z68.32 and Type 2 diabetes mellitus without complication, without long-term current use of insulin E11.9 [place] [address] [id number] [address] [place] [address] February, Type 2 diabetes mellitus wit hout complication, without long-term current use of insulin E11.9 [facility] [address] [facility] [id number] [address] [place] [address] Jan, Lumbago with sciatica, right side M54.41 [facility] [address] [id number] [address] [place] [address] Jan, Sore throat J02.9 [facility] [address] [id number] [address] [place] [address] Dec, [facility] [address] [id number] [address] [place] [address] Dec, Type 2 diabetes mellitus wit hout complication, without long-term current use of insulin E11.9 [facility] [address] [id number] [address] [place] [address] 14 Dec, 2017 [facility] [address] [id number] [address] [place] [address] 14 Dec, 2017 [facility] [address] [facility] [id number] [address] [place] [address] Dec, [facility] [address] [facility] [id number] [address] [place] [address] Dec, Type 2 diabetes mellitus wit hout [...] pollen J30.1 and GERD without esophagitis K21.9 [facility] [address] [id number] [address] [place] [address] Dec, [facility] [address] [id number] [address] [place] [address] Nov, [facility] [address] [id number] [address] [place] [address] Nov, [facility] [address] [id number] [address] [place] [address] Nov, [facility] [address] [id number] [address] [place] [address] Nov, [facility] [address] [id number] [address] [place] [address] Oct, [facility] [address] [id number] [address] [place] [address] Oct, [facility] [address] [id number] [address] [place] [address] 16 Oct, 2017 [facility] [address] [id number] [address] [place] [address] 11 Oct, 2017 Well woman exam with routine gynecological exam Z01.419 ; Screen for STD (sexually transmitted disease) Z11.3 ; Screening breast examination Z12.31 ; Type 2 diabetes mellitus without complication, without long-term current use of insulin E11.9 ; Other obesity due to excess calories E66.09 and Body mass index (BMI) of 32.0-32.9 in adult Z68.32 [facility] [address] [facility] [id number] [address] [place] [address] Oct, Ganglion of left wrist M67.4 32 [facility] [address] [id number] [address] [place] [address] Oct, [facility] [address] [facility] [id number] [address] [place] [address] Oct, [facility] [address] [id number] [address] [place] [address] Oct, Ganglion cyst M67.40 [facility] [address] [facility] [id number] [address] [place] [address] Oct, [facility] [address] [facility] [id number] [address] [place] [address] Sep, [facility] [address] [facility] [id number] [address] [place] [address] Sep, Major depressive disorder, r ecurrent episode, moderate F33.1 [facility] [address] [facility] [id number] [address] [place] [address] Sep, [facility] [address] [facility] [id number] [address] [place] [address] Sep, Right renal mass N28.89 [facility] [address] [facility] [id number] [address] [place] [address] Sep, [facility] [address] [facility] [id number] [address] [place] [phone] Sep, [facility] [address] [facility] [id number] [address] [place] [address] Sep, Right renal mass N28.89 [facility] [address] [facility] [id number] [address] [place] [address] Sep, [facility] [address] [facility] [id number] [address] [place] [address] Sep, [facility] [address] [facility] [id number] [address] [place] [phone] Sep, [facility] [address] [facility] [id number] [address] [place] [address] Sep, [facility] [address] [facility] [id number] [address] [place] [phone] Sep, [facility] [address] [facility] [id number] [address] [place] [address] Sep, [facility] [address] [facility] [id number] [address] [place] [address] Sep, Pulmonary nodule R91.1 [facility] [address] [facility] [id number] [address] [place] [address] Aug, [facility] [address] [facility] [id number] [address] [place] [address] Aug, Right renal mass N28.89 and Pulmonary nodule R91.1 [facility] [address] [facility] [id number] [address] [place] [address] Aug, Essential hypertension I10 ; Right renal mass N28.89 ; Chronic gastric ulcer, unspecified whether gastric ulcer hemorrhage or perforation present K25.7 ; Spondylosis of cervical region without myelopathy or radiculopathy M47.812 ; 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 and Hospital discharge follow-up Z09 [facility] [address] [facility] [id number] [address] [place] [address] Aug, [facility] [address] [facility] [id number] [address] [place] [address] Aug, [facility] [address] [facility] [id number] [address] [place] [address] Aug, [facility] [address] [facility] [id number] [address] [place] [address] Aug, Pain syndrome, chronic G89.4 ; Lumbago with sciatica, right side M54.41 ; Lumbago with sciatica, left side M54.42 ; Other chronic pain G89.29 ; Cervicalgia M54.2 ; Controlled substance agreement signed Z79.899 and Essential hypertension I10 [facility] [address] [facility] [id number] [address] [address] Aug, [facility] [address] [facility] [id number] [address] [address] Jul, Encounter to establish care Z76.89 ; [...] SOCIAL HISTORY Never Assessed REASON FOR VISIT LVM PLAN OF CARE VITAL SIGNS MEDICATIONS Unknown [...] removed 07/02/2018 Hospitalization History heart attack x3 [phone] 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 Hospitalization History left kidney removal 06/2018
--- OUTSIDE RECORDS SUMMARY | 2020-01-21 19:04 | XMS REPORT ---
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 Curbing Stonecutter Name Role Phone KING ROSA Unavailable PROBLEMS Type Condition ICD9-CM Code PLW28-TA Code Onset Dates Condition S tatus SNOMED Code Problem Cervical stenosis of spinal canal M48.02 Active 07814497 Problem GERD without esophagitis K21.9 Activ e 953034724 Problem Left kidney mass N28.89 Active 309 991253 Problem 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 3 Active 282141384 Problem Chronic esophagogastric ulcer K25.7 Active 01319289 Problem Metabolic disorder, unspecified E88.9 Active 819808501 Problem Renal cell carcinoma of left kidney C64.2 Active 061986723 Problem Seasonal allergic rhinitis due to pollen J30.1 Active 74308523 Problem S/p nephrectomy Z90.5 Active 1616 28462 Problem Osteoarthritis of spine with radiculopathy, cervical regio n M47.22 Active 308356548 Problem Lumbago with sciatica, right side M54.41 Active [id number] Problem Lumbago with sciatica, left side M54.42 Active 755913623 Problem Type 2 diabetes mellitus wit hout complication, without long-term current use of insulin E11.9 Active 340552508 Problem Type 2 diabetes mellitus with other specified complication E11.69 Active 57106811533691 Problem Hyperlipidemia, unspecified E78.5 Ac tive 02488670 Problem Other spondylosis with myelopathy, cervical region M47.12 Active 24905029 Problem Other spondylosis with radiculopathy, cervical region M47.22 Active 333988321 Problem Right renal mass N28.89 Active 309 160102 Problem 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 Ac tive 832611599 Problem Essential hypertension I10 Active 43046619 Problem Pain syndrome, chronic G89.4 Active 555069402 Problem Other obesity due to excess calories E66.09 Active 988190845 Problem Major depressive disorder, recurrent episode, moderate F33.1 Active 901655312 Problem Pulmonary nodule R91.1 Active 427 270714 Problem Body mass index (BMI) of 32.0-32.9 in adult Z68.32 Active 965197900 ALLERGIES No Information ENCOUNTERS Encounter Location Date Diagnosis [place] [address] [address] [facility] [id number] [address] [place] [phone] 14 Sep, 2018 [place] [address] [address] [facility] [id number] [address] [place] [phone] 05 Sep, 2018 [place] [address] [address] [facility] [id number] [address] [place] [phone] Aug, Other spondylosis with radic ulopathy, cervical region M47.22 [place] [address] [address] [facility] [id number] [address] [place] [phone] Jul, Other spondylosis with radic ulopathy, cervical region M47.22 [place] [address] [address] [facility] [id number] [address] [place] [phone] Jul, Other spondylosis with radic ulopathy, cervical region M47.22 [place] [address] [address] [facility] [id number] [address] [place] [phone] Jul, Other spondylosis with radic ulopathy, cervical region M47.22 [place] [address] [address] [facility] [id number] [address] [place] [address] Jul, 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 and Hyperlipidemia, unspecified E78.5 [place] [address] [address] [facility] [id number] [address] [place] [phone] Jul, [place] [address] [address] [facility] [id number] [address] [place] [address] Jul, Type 2 diabetes mellitus wit h other specified complication E11.69 ; Osteoarthritis of spine with radiculopathy, cervical region M47.22 ; Other spondylosis with radiculopathy, cervical region M47.22 ; S/p nephrectomy Z90.5 and Essential hypertension I10 [id number] [id number] [address] [place] [phone] 26 Jun, 2018 Spondylosis of cervical hakan on without myelopathy or radiculopathy M47.812 [facility] [address] [place] [id number] [address] [place] [address] Jun, Renal cell carcinoma of left kidney C64.2 ; S/p nephrectomy Z90.5 ; Type 2 diabetes mellitus with other specified complication E11.69 ; Essential hypertension I10 and Osteoarthritis of spine with radiculopathy, cervical region M47.22 [place] [address] [address] Jun, [place] [address] [address] 17 Jun, 2018 Essential hypertension I10 [place] [address] [address] May, Spondylosis of cervical hakan on without myelopathy or radiculopathy M47.812 [place] [address] [address] May, [place] [address] [address] May, [facility] [address] [address] May, Skin ulcer of buttock, limit ed to breakdown of skin L98.411 [facility] [address] [place] [id number] [address] [place] [address] May, Fever, unspecified fever cau se R50.9 [place] [address] [address] [place] [id number] [address] [place] [address] Apr, Acute cystitis with hematuri a N30.01 and Dehydration E86.0 [place] [address] [address] Apr, [facility] [address] [id number] [address] [place] [address] Apr, Dysuria R30.0 and Acute cyst itis without hematuria N30.00 [facility] [address] [facility] [id number] [address] [place] [phone] Apr, [facility] [address] [id number] [address] [place] [address] Apr, Spondylosis of cervical hakan on without myelopathy or radiculopathy M47.812 [facility] [address] [id number] [address] [place] [phone] Apr, [facility] [address] [facility] [id number] [address] [place] [phone] Apr, Other spondylosis with radic ulopathy, cervical region M47.22 [place] [address] [address] [facility] [id number] [address] [place] [phone] Apr, [facility] [address] [id number] [address] [place] [phone] Apr, Other spondylosis with radic ulopathy, cervical region M47.22 ; Other spondylosis with myelopathy, cervical region M47.12 and Renal cell carcinoma of left kidney C64.2 [place] [address] [address] [facility] [id number] [address] [place] [phone] Apr, [place] [address] [address] [facility] [id number] [address] [place] [phone] Apr, Lumbago with sciatica, right side M54.41 and Lumbago with sciatica, left side M54.42 [place] [address] [facility] [id number] [address] [place] [phone] Mar, Type 2 diabetes mellitus wit hout [...] specified complication E11.69 and Hyperlipidemia, unspecified E78.5 [facility] [place] [address] [address] Mar, Acute suppurative otitis med ia of both ears without spontaneous rupture of tympanic membranes, recurrence not specified H66.003 [place] [address] [address] Mar, [place] [address] [address] Mar, 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 [place] [address] [address] Mar, Low back pain, unspecified b ack pain laterality, unspecified chronicity, with sciatica presence unspecified M54.5 and Type 2 diabetes mellitus without complication, without long-term current use of insulin E11.9 [place] [address] [address] February, [place] [address] [address] February, 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 [facility] [place] [address] [address] February, Strain of neck muscle, initi al encounter S16.1XXA [place] [address] [address] February, Type 2 diabetes mellitus wit hout [...] Seasonal allergic rhinitis due to pollen J30.1 [place] [address] [address] February, Essential hypertension I10 ; 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 ; Body mass index (BMI) of 32.0-32.9 in adult Z68.32 and Type 2 diabetes mellitus without complication, without long-term current use of insulin E11.9 [place] [address] [address] [place] [id number] [place] [address] February, Type 2 diabetes mellitus wit hout complication, without long-term current use of insulin E11.9 [place] [address] [address] [place] [id number] [address] [place] [id number] Jan, Lumbago with sciatica, right side M54.41 [facility] [address] [facility] [id number] [place] [phone] Jan, Sore throat J02.9 [place] [address] [address] [place] [id number] [address] [place] [phone] Dec, [place] [address] [address] [facility] [id number] [address] [place] [phone] Dec, Type 2 diabetes mellitus wit hout complication, without long-term current use of insulin E11.9 [place] [address] [address] [facility] [id number] [address] [place] [phone] 14 Dec, 2017 [place] [address] [address] [place] [id number] [address] [place] [phone] Dec, [facility] [address] [place] [id number] [address] [place] [phone] Dec, [place] [address] [address] [facility] [id number] [address] [place] [phone] Dec, Type 2 diabetes mellitus wit hout [...] pollen J30.1 and GERD without esophagitis K21.9 [place] [address] [address] [facility] [id number] [address] [place] [address] Dec, [place] [address] [address] [place] [id number] [address] [place] [phone] Nov, [place] [address] [address] [place] [id number] [address] [place] [phone] Nov, [place] [address] [address] [place] [id number] [address] [place] [phone] Nov, [place] [address] [address] [facility] [id number] [address] [place] [phone] Nov, [place] [address] [address] [place] [id number] [address] [place] [phone] Oct, [place] [address] [address] [facility] [id number] [address] [place] [phone] Oct, [place] [address] [address] [facility] [id number] [address] [place] [phone] Oct, [place] [address] [address] [place] [id number] [address] [place] [address] Oct, Well woman exam with routine gynecological exam Z01.419 ; Screen for STD (sexually transmitted disease) Z11.3 ; Screening breast examination Z12.31 ; Type 2 diabetes mellitus without complication, without long-term current use of insulin E11.9 ; Other obesity due to excess calories E66.09 and Body mass index (BMI) of 32.0-32.9 in adult Z68.32 [facility] [address] [address] 09 Oct, 2017 Ganglion of left wrist M67.4 32 [facility] [address] [address] Oct, [facility] [address] [address] Oct, [facility] [address] [address] Oct, Ganglion cyst M67.40 [place] [address] [address] Oct, [place] [address] [address] Sep, [place] [address] [address] Sep, Major depressive disorder, r ecurrent episode, moderate F33.1 [place] [address] [address] Sep, [place] [address] [address] Sep, Right renal mass N28.89 [place] [address] [address] [place] [id number] [address] [place] [address] Sep, [place] [address] [address] Sep, [place] [address] [address] [place] [id number] [address] [place] [id number] Sep, Right renal mass N28.89 [place] [address] [address] Sep, [facility] [address] [facility] [id number] [address] [place] [address] Sep, [facility] [address] [facility] [id number] [address] [place] [phone] Sep, [facility] [address] [facility] [id number] [address] [place] [phone] Sep, [facility] [address] [facility] [id number] [address] [place] [phone] Sep, [facility] [address] [facility] [id number] [address] [place] [address] Sep, [facility] [address] [facility] [id number] [address] [place] [address] Sep, Pulmonary nodule R91.1 [facility] [address] [facility] [id number] [address] [place] [phone] Aug, [facility] [address] [facility] [id number] [address] [place] [phone] Aug, Right renal mass N28.89 and Pulmonary nodule R91.1 [facility] [address] [facility] [id number] [address] [place] [address] Aug, Essential hypertension I10 ; Right renal mass N28.89 ; Chronic gastric ulcer, unspecified whether gastric ulcer hemorrhage or perforation present K25.7 ; Spondylosis of cervical region without myelopathy or radiculopathy M47.812 ; 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 and Hospital discharge follow-up Z09 [facility] [address] [facility] [id number] [address] [place] [phone] Aug, [facility] [address] [facility] [id number] [address] [place] [phone] Aug, [facility] [address] [facility] [id number] [address] [place] [id number] Aug, [facility] [address] [facility] [id number] [address] [place] [address] Aug, Pain syndrome, chronic G89.4 ; Lumbago with sciatica, right side M54.41 ; Lumbago with sciatica, left side M54.42 ; Other chronic pain G89.29 ; Cervicalgia M54.2 ; Controlled substance agreement signed Z79.899 and Essential hypertension I10 [facility] [address] [facility] [id number] [address] [place] [phone] Aug, [facility] [address] [facility] [id number] [address] [place] [address] Jul, Encounter to establish care Z76.89 ; [...] SOCIAL HISTORY Never Assessed REASON FOR VISIT Routine nurse call PLAN OF CARE VITAL SIGNS MEDICATIONS Medication Instructions Dosage Frequency Start Date End Date Duration S tatus Tizanidine HCl 4 mg Orally Three times a day 1 capsule as needed 8h 30 Active RESULTS No Results PROCEDURES No [...] removed 07/02/2018 Hospitalization History heart attack x3 [id number] 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 Hospitalization History left kidney removal 06/2018
--- OUTSIDE RECORDS SUMMARY | 2020-01-21 19:04 | XMS REPORT ---
Author Author Amy SNELL Organization [facility] Address [address] [place] [address] Care Team Providers Care Karate Instructor Name Role Phone KING ROSA Unavailable PROBLEMS Type Condition ICD9-CM Code APL30-HY Code Onset Dates Condition S tatus SNOMED Code Problem Cervical stenosis of spinal canal M48.02 Active 48033527 Problem GERD without esophagitis K21.9 Activ e 919991163 Problem Left kidney mass N28.89 Active 309 000732 Problem 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 3 Active 964004417 Problem Chronic esophagogastric ulcer K25.7 Active 40458493 Problem Metabolic disorder, unspecified E88.9 Active 688761799 Problem Renal cell carcinoma of left kidney C64.2 Active 851585584 Problem Seasonal allergic rhinitis due to pollen J30.1 Active 54426782 Problem S/p nephrectomy Z90.5 Active 1616 67870 Problem Osteoarthritis of spine with radiculopathy, cervical regio n M47.22 Active 308652401 Problem Lumbago with sciatica, right side M54.41 Active [id number] Problem Lumbago with sciatica, left side M54.42 Active 873031622 Problem Type 2 diabetes mellitus wit hout complication, without long-term current use of insulin E11.9 Active 976083078 Problem Type 2 diabetes mellitus with other specified complication E11.69 Active 51422088124826 Problem Hyperlipidemia, unspecified E78.5 Ac tive 15184939 Problem Other spondylosis with myelopathy, cervical region M47.12 Active 07613541 Problem Other spondylosis with radiculopathy, cervical region M47.22 Active 881288465 Problem Right renal mass N28.89 Active 309 708371 Problem 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 Ac tive 650522330 Problem Essential hypertension I10 Active 95566916 Problem Pain syndrome, chronic G89.4 Active 220807963 Problem Other obesity due to excess calories E66.09 Active 928908221 Problem Major depressive disorder, recurrent episode, moderate F33.1 Active 571091569 Problem Pulmonary nodule R91.1 Active 427 711860 Problem Body mass index (BMI) of 32.0-32.9 in adult Z68.32 Active 797148278 ALLERGIES No Information ENCOUNTERS Encounter Location Date Diagnosis [place] [id number] [facility] [id number] [address] [place] [address] Jul, Other spondylosis with radic ulopathy, cervical region M47.22 [place] [address] [id number] [address] [place] [address] Jul, Other spondylosis with radic ulopathy, cervical region M47.22 [place] [address] [facility] [id number] [address] [place] [address] Jul, Other spondylosis with radic ulopathy, cervical region M47.22 [place] [address] [facility] [id number] [address] [place] [address] Jul, 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 and Hyperlipidemia, unspecified E78.5 [place] [address] [id number] [address] [place] [address] Jul, [place] [address] [address] [facility] [id number] [address] [place] [address] Jul, Type 2 diabetes mellitus wit h other specified complication E11.69 ; Osteoarthritis of spine with radiculopathy, cervical region M47.22 ; Other spondylosis with radiculopathy, cervical region M47.22 ; S/p nephrectomy Z90.5 and Essential hypertension I10 [place] [address] [id number] [address] [place] [address] Jun, Spondylosis of cervical hakan on without myelopathy or radiculopathy M47.812 [place] [address] [id number] [address] [place] [address] Jun, Renal cell carcinoma of left kidney C64.2 ; S/p nephrectomy Z90.5 ; Type 2 diabetes mellitus with other specified complication E11.69 ; Essential hypertension I10 and Osteoarthritis of spine with radiculopathy, cervical region M47.22 [place] [address] [address] Jun, [facility] [address] [place] [id number] [place] [address] Jun, Essential hypertension I10 [place] [address] [address] May, Spondylosis of cervical hakan on without myelopathy or radiculopathy M47.812 [place] [address] [address] May, [place] [address] [address] May, [facility] [address] [address] May, Skin ulcer of buttock, limit ed to breakdown of skin L98.411 [facility] [address] [address] May, Fever, unspecified fever cau se R50.9 [place] [address] [address] Apr, Acute cystitis with hematuri a N30.01 and Dehydration E86.0 [place] [address] [address] Apr, [facility] [address] [place] [id number] [place] [address] Apr, Dysuria R30.0 and Acute cyst itis without hematuria N30.00 [place] [address] [place] [id number] [place] [address] Apr, [place] [address] [address] Apr, Spondylosis of cervical hakan on without myelopathy or radiculopathy M47.812 [place] [address] [address] Apr, [facility] [address] [place] [address] Apr, Other spondylosis with radic ulopathy, cervical region M47.22 [place] [address] [address] [place] [id number] [address] [place] [address] Apr, [place] [address] [address] Apr, Other spondylosis with radic ulopathy, cervical region M47.22 ; Other spondylosis with myelopathy, cervical region M47.12 and Renal cell carcinoma of left kidney C64.[address] [address] Apr, [place] [address] [address] Apr, Lumbago with sciatica, right side M54.41 and Lumbago with sciatica, left side M54.42 [place] [address] [address] Mar, Type 2 diabetes mellitus wit hout [...] Hyperlipidemia, unspecified E78.5 [facility] [id number] [place] [address] Mar, Acute suppurative otitis med ia of both ears without spontaneous rupture of tympanic membranes, recurrence not specified H66.003 [place] [address] [address] Mar, [place] [address] [address] Mar, 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 [facility] [place] [address] [address] Mar, Low back pain, unspecified b ack pain laterality, unspecified chronicity, with sciatica presence unspecified M54.5 and Type 2 diabetes mellitus without complication, without long-term current use of insulin E11.9 [place] [address] [address] February, [place] [address] [address] February, 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 [facility] [place] [address] [address] February, Strain of neck muscle, initi al encounter S16.1XXA [place] [address] [address] February, Type 2 diabetes mellitus wit hout [...] Seasonal allergic rhinitis due to pollen J30.[address] [address] February, Essential hypertension I10 ; 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 ; Body mass index (BMI) of 32.0-32.9 in adult Z68.32 and Type 2 diabetes mellitus without complication, without long-term current use of insulin E11.9 [facility] [address] [facility] [id number] [address] [place] [address] February, Type 2 diabetes mellitus wit hout complication, without long-term current use of insulin E11.9 [facility] [address] [facility] [id number] [address] [place] [address] Jan, Lumbago with sciatica, right side M54.41 [facility] [address] [facility] [id number] [address] [place] [address] Jan, Sore throat J02.9 [place] [address] [address] [facility] [id number] [address] [place] [address] Dec, [facility] [address] [facility] [id number] [address] [place] [address] Dec, Type 2 diabetes mellitus wit hout complication, without long-term current use of insulin E11.9 [place] [address] [address] [facility] [id number] [address] [place] [address] Dec, [facility] [address] [facility] [id number] [address] [place] [address] Dec, [place] [address] [facility] [id number] [address] [place] [address] Dec, [place] [address] [address] [facility] [id number] [address] [place] [address] Dec, Type 2 diabetes mellitus wit hout [...] pollen J30.1 and GERD without esophagitis K21.9 [facility] [address] [facility] [id number] [address] [place] [address] Dec, [facility] [address] [facility] [id number] [address] [place] [address] Nov, [facility] [address] [id number] [address] [place] [address] Nov, [place] [address] [address] [facility] [id number] [address] [place] [address] Nov, [place] [address] [address] [facility] [id number] [address] [place] [address] Nov, [place] [address] [address] [facility] [id number] [address] [place] [address] Oct, [place] [address] [address] [facility] [id number] [address] [place] [address] Oct, [place] [address] [place] [id number] [address] [place] [phone] Oct, [place] [address] [address] [facility] [id number] [address] [place] [address] Oct, Well woman exam with routine gynecological exam Z01.419 ; Screen for STD (sexually transmitted disease) Z11.3 ; Screening breast examination Z12.31 ; Type 2 diabetes mellitus without complication, without long-term current use of insulin E11.9 ; Other obesity due to excess calories E66.09 and Body mass index (BMI) of 32.0-32.9 in adult Z68.32 [facility] [address] [place] [id number] [address] [place] [address] Oct, Ganglion of left wrist M67.4 [address] [place] [address] [place] [id number] [place] [phone] Oct, [facility] [address] [facility] [id number] [address] [place] [address] Oct, [facility] [address] [facility] [id number] [address] [place] [address] Oct, Ganglion cyst M67.40 [facility] [address] [facility] [id number] [address] [place] [address] Oct, [facility] [address] [facility] [id number] [address] [place] [address] Sep, [facility] [address] [facility] [id number] [address] [place] [address] Sep, Major depressive disorder, r ecurrent episode, moderate F33.1 [facility] [address] [facility] [id number] [address] [place] [address] Sep, [facility] [address] [facility] [id number] [address] [place] [address] Sep, Right renal mass N28.89 [facility] [address] [facility] [id number] [address] [place] [address] Sep, [facility] [address] [facility] [id number] [address] [place] [phone] Sep, [facility] [address] [facility] [id number] [address] [place] [address] Sep, Right renal mass N28.89 [facility] [address] [facility] [id number] [address] [place] [phone] Sep, [facility] [address] [facility] [id number] [address] [place] [phone] Sep, [facility] [address] [facility] [id number] [address] [place] [address] Sep, [facility] [address] [facility] [id number] [address] [place] [address] Sep, [facility] [address] [place] [id number] [address] [place] [address] Sep, [facility] [address] [address] Sep, [facility] [address] [place] [id number] [place] [address] Sep, Pulmonary nodule R91.1 [place] [address] [address] Aug, [place] [address] [address] Aug, Right renal mass N28.89 and Pulmonary nodule R91.1 [place] [address] [address] Aug, Essential hypertension I10 ; Right renal mass N28.89 ; Chronic gastric ulcer, unspecified whether gastric ulcer hemorrhage or perforation present K25.7 ; Spondylosis of cervical region without myelopathy or radiculopathy M47.812 ; 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 and Hospital discharge follow-up Z09 [place] [address] [address] 14 Aug, 2017 [place] [address] [address] 09 Aug, 2017 [place] [address] [address] Aug, [place] [address] [address] Aug, Pain syndrome, chronic G89.4 ; Lumbago with sciatica, right side M54.41 ; Lumbago with sciatica, left side M54.42 ; Other chronic pain G89.29 ; Cervicalgia M54.2 ; Controlled substance agreement signed Z79.899 and Essential hypertension I10 [place] [address] [address] Aug, [facility] [address] [facility] [id number] [address] [place] [address] Jul, Encounter to establish care Z76.89 ; [...] VISIT PLAN OF CARE VITAL SIGNS MEDICATIONS Medication Instructions Dosage Frequency Start Date End Date Duration S tatus Oxycodone-Acetaminophen 7.5-325 MG Orally every 6 hrs 1 tablet 6h Jul, 28 days Active RESULTS No Results PROCEDURES [...] removed 07/02/2018 Hospitalization History heart attack x3 2059-1323 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 Hospitalization History left kidney removal 06/2018
--- OUTSIDE RECORDS SUMMARY | 2020-01-21 19:04 | XMS REPORT ---
Author Author Amy MALONE Organization [facility] Address [address] [place] [address] Care Team Providers Care Media Production Operator Name Role Phone JULIO MALONE Unavailable PROBLEMS Type Condition ICD9-CM Code GVI88-VL Code Onset Dates Condition S tatus SNOMED Code Problem Cervical stenosis of spinal canal M48.02 Active 85525022 Problem GERD without esophagitis K21.9 Activ e 536555387 Problem Left kidney mass N28.89 Active 309 146168 Problem 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 3 Active 859461125 Problem Chronic esophagogastric ulcer K25.7 Active 42425631 Problem Metabolic disorder, unspecified E88.9 Active 709352520 Problem Renal cell carcinoma of left kidney C64.2 Active 670314691 Problem Seasonal allergic rhinitis due to pollen J30.1 Active 97790906 Problem S/p nephrectomy Z90.5 Active 1616 82496 Problem Osteoarthritis of spine with radiculopathy, cervical regio n M47.22 Active 450653943 Problem Lumbago with sciatica, right side M54.41 Active 546185990685805 Problem Lumbago with sciatica, left side M54.42 Active 218612979 Problem Type 2 diabetes mellitus wit hout complication, without long-term current use of insulin E11.9 Active 839907644 Problem Type 2 diabetes mellitus with other specified complication E11.69 Active 91978586950077 Problem Hyperlipidemia, unspecified E78.5 Ac tive 49525942 Problem Other spondylosis with myelopathy, cervical region M47.12 Active 48242005 Problem Other spondylosis with radiculopathy, cervical region M47.22 Active 021575561 Problem Right renal mass N28.89 Active 309 280634 Problem 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 Ac tive 422429436 Problem Essential hypertension I10 Active 52387033 Problem Pain syndrome, chronic G89.4 Active 970187509 Problem Other obesity due to excess calories E66.09 Active 586767758 Problem Major depressive disorder, recurrent episode, moderate F33.1 Active 176921063 Problem Pulmonary nodule R91.1 Active 427 862455 Problem Body mass index (BMI) of 32.0-32.9 in adult Z68.32 Active 211438569 ALLERGIES No Information ENCOUNTERS Encounter Location Date Diagnosis [place] [address] [address] [facility] [id number] [address] [place] [address] Aug, Other spondylosis with radic ulopathy, cervical region M47.22 [place] [address] [id number] [address] [place] [address] Jul, Other spondylosis with radic ulopathy, cervical region M47.22 [place] [address] [address] [facility] [id number] [address] [place] [address] Jul, Other spondylosis with radic ulopathy, cervical region M47.22 [place] [address] [address] [facility] [id number] [address] [place] [address] Jul, Other spondylosis with radic ulopathy, cervical region M47.22 [place] [address] [address] [facility] [id number] [address] [place] [address] Jul, 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 and Hyperlipidemia, unspecified E78.5 [place] [address] [address] [facility] [id number] [address] [place] [address] Jul, [place] [address] [address] [facility] [id number] [address] [place] [address] Jul, Type 2 diabetes mellitus wit h other specified complication E11.69 ; Osteoarthritis of spine with radiculopathy, cervical region M47.22 ; Other spondylosis with radiculopathy, cervical region M47.22 ; S/p nephrectomy Z90.5 and Essential hypertension I10 [place] [address] [id number] [address] [place] [address] Jun, Spondylosis of cervical hakan on without myelopathy or radiculopathy M47.812 [place] [address] [address] 25 Jun, 2018 Renal cell carcinoma of left kidney C64.2 ; S/p nephrectomy Z90.5 ; Type 2 diabetes mellitus with other specified complication E11.69 ; Essential hypertension I10 and Osteoarthritis of spine with radiculopathy, cervical region M47.22 [place] [address] [address] Jun, [place] [address] [address] Jun, Essential hypertension I10 [place] [address] [address] May, Spondylosis of cervical hakan on without myelopathy or radiculopathy M47.812 [place] [address] [address] May, [place] [address] [address] May, [facility] [address] [place] [address] May, Skin ulcer of buttock, limit ed to breakdown of skin L98.[address] [facility] [place] [address] [address] May, Fever, unspecified fever cau se R50.9 [place] [address] [address] Apr, Acute cystitis with hematuri a N30.01 and Dehydration E86.0 [place] [address] [address] Apr, [facility] [address] [address] Apr, Dysuria R30.0 and Acute cyst itis without hematuria N30.00 [place] [address] [address] [place] [id number] [place] [address] Apr, [facility] [address] [id number] [address] [place] [address] Apr, Spondylosis of cervical hakan on without myelopathy or radiculopathy M47.812 [facility] [address] [id number] [address] [place] [address] Apr, [facility] [address] [id number] [address] [place] [address] Apr, Other spondylosis with radic ulopathy, cervical region M47.22 [facility] [address] [facility] [id number] [address] [place] [address] Apr, [facility] [address] [id number] [address] [place] [address] Apr, Other spondylosis with radic ulopathy, cervical region M47.22 ; Other spondylosis with myelopathy, cervical region M47.12 and Renal cell carcinoma of left kidney C64.2 [facility] [address] [id number] [address] [place] [address] Apr, [facility] [address] [facility] [id number] [address] [place] [address] Apr, Lumbago with sciatica, right side M54.41 and Lumbago with sciatica, left side M54.42 [facility] [address] [facility] [id number] [address] [place] [address] Mar, Type 2 diabetes mellitus wit hout [...] specified complication E11.69 and Hyperlipidemia, unspecified E78.5 [facility] [address] [address] Mar, Acute suppurative otitis med ia of both ears without spontaneous rupture of tympanic membranes, recurrence not specified H66.[address] [address] Mar, [place] [address] [address] Mar, 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 [facility] [place] [address] [address] Mar, Low back pain, unspecified b ack pain laterality, unspecified chronicity, with sciatica presence unspecified M54.5 and Type 2 diabetes mellitus without complication, without long-term current use of insulin E11.9 [place] [address] [address] February, [address] [address] February, 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 [address] February, Strain of neck muscle, initi al encounter S16.1XXA [address] [address] February, Type 2 diabetes mellitus wit hout [...] Seasonal allergic rhinitis due to pollen J30.1 [facility] [address] [facility] [id number] [address] [place] [address] February, Essential hypertension I10 ; 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 ; Body mass index (BMI) of 32.0-32.9 in adult Z68.32 and Type 2 diabetes mellitus without complication, without long-term current use of insulin E11.9 [place] [address] [address] [facility] [id number] [address] [place] [address] February, Type 2 diabetes mellitus wit hout complication, without long-term current use of insulin E11.9 [place] [address] [address] [facility] [id number] [address] [place] [address] Jan, Lumbago with sciatica, right side M54.41 [facility] [address] [facility] [id number] [address] [place] [address] Jan, Sore throat J02.9 [facility] [address] [facility] [id number] [address] [place] [address] Dec, [place] [address] [address] [facility] [id number] [address] [place] [address] Dec, Type 2 diabetes mellitus wit hout complication, without long-term current use of insulin E11.9 [place] [address] [address] [facility] [id number] [address] [place] [address] Dec, [facility] [address] [facility] [id number] [address] [place] [address] Dec, [place] [address] [address] [facility] [id number] [address] [place] [address] Dec, [facility] [address] [facility] [id number] [address] [place] [address] Dec, Type 2 diabetes mellitus wit hout [...] pollen J30.1 and GERD without esophagitis K21.9 [facility] [address] [id number] [address] [place] [address] Dec, [facility] [address] [id number] [address] [place] [address] Nov, [facility] [address] [id number] [address] [place] [address] Nov, [facility] [address] [id number] [address] [place] [address] Nov, [facility] [address] [id number] [address] [place] [address] Nov, [facility] [address] [id number] [address] [place] [address] Oct, [facility] [address] [id number] [address] [place] [address] Oct, [facility] [address] [id number] [address] [place] [address] 16 Oct, 2017 [facility] [address] [id number] [address] [place] [address] 11 Oct, 2017 Well woman exam with routine gynecological exam Z01.419 ; Screen for STD (sexually transmitted disease) Z11.3 ; Screening breast examination Z12.31 ; Type 2 diabetes mellitus without complication, without long-term current use of insulin E11.9 ; Other obesity due to excess calories E66.09 and Body mass index (BMI) of 32.0-32.9 in adult Z68.32 [facility] [address] [id number] [address] [place] [address] Oct, Ganglion of left wrist M67.4 32 [facility] [address] [id number] [address] [place] [address] Oct, [facility] [address] [facility] [id number] [address] [place] [address] Oct, [facility] [address] [facility] [id number] [address] [place] [address] Oct, Ganglion cyst M67.40 [facility] [address] [facility] [id number] [address] [place] [address] Oct, [facility] [address] [facility] [id number] [address] [place] [address] Sep, [facility] [address] [facility] [id number] [address] [place] [address] Sep, Major depressive disorder, r ecurrent episode, moderate F33.1 [facility] [address] [id number] [address] [place] [address] Sep, [facility] [address] [facility] [id number] [address] [place] [address] Sep, Right renal mass N28.89 [facility] [address] [facility] [id number] [address] [place] [address] Sep, [facility] [address] [facility] [id number] [address] [place] [address] Sep, [facility] [address] [facility] [id number] [address] [place] [address] Sep, Right renal mass N28.89 [facility] [address] [facility] [id number] [address] [place] [address] Sep, [facility] [address] [facility] [id number] [address] [place] [address] Sep, [facility] [address] [facility] [id number] [address] [place] [address] Sep, [facility] [address] [facility] [id number] [address] [place] [address] Sep, [facility] [address] [place] [id number] [address] [place] [address] Sep, [facility] [address] [place] [id number] [address] [place] [address] Sep, [facility] [address] [place] [id number] [address] [place] [address] Sep, Pulmonary nodule R91.1 [place] [address] [address] [place] [id number] [address] [place] [address] Aug, [facility] [address] [place] [id number] [address] [place] [address] Aug, Right renal mass N28.89 and Pulmonary nodule R91.1 [place] [id number] [place] [address] Aug, Essential hypertension I10 ; Right renal mass N28.89 ; Chronic gastric ulcer, unspecified whether gastric ulcer hemorrhage or perforation present K25.7 ; Spondylosis of cervical region without myelopathy or radiculopathy M47.812 ; 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 and Hospital discharge follow-up Z09 [place] [address] [id number] [place] [address] 14 Aug, 2017 [facility] [address] [place] [id number] [address] [place] [address] Aug, [facility] [address] [place] [id number] [address] [place] [address] Aug, [place] [address] [address] [place] [id number] [place] [address] Aug, Pain syndrome, chronic G89.4 ; Lumbago with sciatica, right side M54.41 ; Lumbago with sciatica, left side M54.42 ; Other chronic pain G89.29 ; Cervicalgia M54.2 ; Controlled substance agreement signed Z79.899 and Essential hypertension I10 [facility] [address] [facility] [id number] [address] [place] [address] Aug, [facility] [address] [facility] [id number] [address] [address] Jul, Encounter to establish care Z76.89 ; [...] HISTORY Never Assessed REASON FOR VISIT Controlled Refill 09/12 PLAN OF CARE VITAL SIGNS MEDICATIONS Medication Instructions Dosage Frequency Start Date End Date Duration S tatus Oxycodone-Acetaminophen 7.5-325 MG Orally every 6 hrs 1 tablet 6h Aug, 28 days Active RESULTS No Results PROCEDURES [...] removed 07/02/2018 Hospitalization History heart attack x3 [phone] 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 Hospitalization History left kidney removal 06/2018
--- OUTSIDE RECORDS SUMMARY | 2020-01-21 19:04 | XMS REPORT ---
Author Author Amy SNELL Organization [facility] Address [address] [place] [address] Care Team Providers Care Inspector Chief Name Role Phone KING ROSA Unavailable PROBLEMS Type Condition ICD9-CM Code ANI08-SP Code Onset Dates Condition S tatus SNOMED Code Problem Cervical stenosis of spinal canal M48.02 Active 11745393 Problem GERD without esophagitis K21.9 Activ e 665976556 Problem Left kidney mass N28.89 Active 309 939536 Problem 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 3 Active 211272189 Problem Chronic esophagogastric ulcer K25.7 Active 93782365 Problem Metabolic disorder, unspecified E88.9 Active 299460310 Problem Renal cell carcinoma of left kidney C64.2 Active 452474150 Problem Seasonal allergic rhinitis due to pollen J30.1 Active 74044549 Problem S/p nephrectomy Z90.5 Active 1616 49996 Problem Osteoarthritis of spine with radiculopathy, cervical regio n M47.22 Active 796658084 Problem Lumbago with sciatica, right side M54.41 Active 969245090173737 Problem Lumbago with sciatica, left side M54.42 Active 471636163 Problem Type 2 diabetes mellitus wit hout complication, without long-term current use of insulin E11.9 Active 009635447 Problem Type 2 diabetes mellitus with other specified complication E11.69 Active 18027791595637 Problem Hyperlipidemia, unspecified E78.5 Ac tive 43299167 Problem Other spondylosis with myelopathy, cervical region M47.12 Active 42861986 Problem Other spondylosis with radiculopathy, cervical region M47.22 Active 663408885 Problem Right renal mass N28.89 Active 309 825532 Problem 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 Ac tive 377162455 Problem Essential hypertension I10 Active 81120232 Problem Pain syndrome, chronic G89.4 Active 860261502 Problem Other obesity due to excess calories E66.09 Active 927157768 Problem Major depressive disorder, recurrent episode, moderate F33.1 Active 609232585 Problem Pulmonary nodule R91.1 Active 427 698398 Problem Body mass index (BMI) of 32.0-32.9 in adult Z68.32 Active 263251774 ALLERGIES No Information ENCOUNTERS Encounter Location Date Diagnosis [facility] [address] [id number] [address] [place] [address] Oct, [facility] [address] [id number] [address] [place] [address] Sep, [facility] [address] [id number] [address] [place] [address] Sep, [facility] [address] [facility] [id number] [address] [place] [address] Sep, [facility] [address] [facility] [id number] [address] [place] [address] Sep, [facility] [address] [facility] [id number] [address] [place] [address] Aug, Other spondylosis with radic ulopathy, cervical region M47.22 [place] [address] [facility] [id number] [address] [place] [address] Jul, Other spondylosis with radic ulopathy, cervical region M47.22 [place] [address] [facility] [id number] [address] [place] [address] Jul, Other spondylosis with radic ulopathy, cervical region M47.22 [facility] [address] [id number] [address] [place] [address] Jul, Other spondylosis with radic ulopathy, cervical region M47.22 [place] [address] [facility] [id number] [address] [place] [address] Jul, 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 and Hyperlipidemia, unspecified E78.5 [facility] [address] [facility] [id number] [address] [place] [address] Jul, [facility] [address] [facility] [id number] [address] [place] [address] Jul, Type 2 diabetes mellitus wit h other specified complication E11.69 ; Osteoarthritis of spine with radiculopathy, cervical region M47.22 ; Other spondylosis with radiculopathy, cervical region M47.22 ; S/p nephrectomy Z90.5 and Essential hypertension I10 [facility] [address] [facility] [id number] [address] [place] [address] Jun, Spondylosis of cervical hakan on without myelopathy or radiculopathy M47.812 [place] [address] [place] [id number] [address] [place] [address] Jun, Renal cell carcinoma of left kidney C64.2 ; S/p nephrectomy Z90.5 ; Type 2 diabetes mellitus with other specified complication E11.69 ; Essential hypertension I10 and Osteoarthritis of spine with radiculopathy, cervical region M47.22 [place] [address] [place] [id number] [address] [place] [address] Jun, [place] [address] [facility] [id number] [address] [place] [address] Jun, Essential hypertension I10 [place] [address] [facility] [id number] [address] [place] [address] May, Spondylosis of cervical hakan on without myelopathy or radiculopathy M47.812 [facility] [address] [place] [id number] [address] [place] [address] May, [facility] [address] [facility] [id number] [address] [place] [address] May, [facility] [address] [place] [id number] [address] [place] [address] May, Skin ulcer of buttock, limit ed to breakdown of skin L98.411 [facility] [address] [place] [id number] [address] [place] [address] May, Fever, unspecified fever cau se R50.9 [facility] [address] [facility] [id number] [address] [place] [address] Apr, Acute cystitis with hematuri a N30.01 and Dehydration E86.0 [facility] [address] [facility] [id number] [address] [place] [address] Apr, [facility] [address] [facility] [id number] [address] [place] [address] Apr, Dysuria R30.0 and Acute cyst itis without hematuria N30.00 [place] [address] [facility] [id number] [address] [place] [address] Apr, [place] [address] [facility] [id number] [address] [place] [address] Apr, Spondylosis of cervical hakan on without myelopathy or radiculopathy M47.812 [place] [address] [place] [id number] [address] [place] [address] Apr, [facility] [address] [facility] [id number] [address] [place] [address] Apr, Other spondylosis with radic ulopathy, cervical region M47.22 [place] [address] [facility] [id number] [address] [place] [address] Apr, [place] [address] [place] [id number] [address] [place] [address] Apr, Other spondylosis with radic ulopathy, cervical region M47.22 ; Other spondylosis with myelopathy, cervical region M47.12 and Renal cell carcinoma of left kidney C64.2 [place] [address] [facility] [id number] [address] [place] [address] Apr, [place] [address] [facility] [id number] [address] [place] [address] Apr, Lumbago with sciatica, right side M54.41 and Lumbago with sciatica, left side M54.42 [place] [address] [facility] [id number] [address] [place] [address] Mar, Type 2 diabetes mellitus wit hout [...] specified complication E11.69 and Hyperlipidemia, unspecified E78.5 [facility] [place] [address] [place] [id number] [place] [address] Mar, Acute suppurative otitis med ia of both ears without spontaneous rupture of tympanic membranes, recurrence not specified H66.003 [place] [address] [place] [id number] [address] [place] [address] Mar, [place] [address] [place] [id number] [place] [address] Mar, 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 [facility] [place] [address] [place] [id number] [address] [place] [address] Mar, Low back pain, unspecified b ack pain laterality, unspecified chronicity, with sciatica presence unspecified M54.5 and Type 2 diabetes mellitus without complication, without long-term current use of insulin E11.9 [place] [address] [facility] [id number] [address] [place] [address] February, [place] [address] [place] [id number] [address] [place] [address] February, 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 [facility] [address] [place] [id number] [address] [place] [address] February, Strain of neck muscle, initi al encounter S16.1XXA [place] [address] [place] [id number] [place] [address] February, Type 2 diabetes mellitus wit hout [...] Seasonal allergic rhinitis due to pollen J30.1 [place] [address] [place] [id number] [place] [address] February, Essential hypertension I10 ; 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 ; Body mass index (BMI) of 32.0-32.9 in adult Z68.32 and Type 2 diabetes mellitus without complication, without long-term current use of insulin E11.9 [place] [address] [place] [id number] [address] [place] [address] February, Type 2 diabetes mellitus wit hout complication, without long-term current use of insulin E11.9 [place] [address] [place] [id number] [address] [place] [address] Jan, Lumbago with sciatica, right side M54.41 [facility] [address] [facility] [id number] [address] [place] [address] Jan, Sore throat J02.9 [place] [address] [place] [id number] [address] [place] [address] Dec, [place] [address] [place] [id number] [address] [place] [address] Dec, Type 2 diabetes mellitus wit hout complication, without long-term current use of insulin E11.9 [place] [address] [facility] [id number] [address] [place] [address] Dec, [facility] [address] [facility] [id number] [address] [place] [address] Dec, [facility] [address] [facility] [id number] [address] [place] [address] Dec, [facility] [address] [place] [id number] [address] [place] [address] Dec, Type 2 diabetes mellitus wit hout [...] esophagitis K21.9 [facility] [id number] [place] [address] Dec, [facility] [address] [place] [id number] [address] [place] [address] Nov, [facility] [address] [place] [id number] [address] [place] [address] Nov, [facility] [address] [place] [id number] [address] [place] [address] Nov, [facility] [address] [place] [id number] [address] [place] [address] Nov, [facility] [address] [place] [id number] [address] [place] [address] Oct, [facility] [address] [place] [id number] [address] [place] [address] Oct, [facility] [address] [facility] [id number] [address] [place] [address] 16 Oct, 2017 [facility] [address] [place] [id number] [place] [address] 11 Oct, 2017 Well woman exam with routine gynecological exam Z01.419 ; Screen for STD (sexually transmitted disease) Z11.3 ; Screening breast examination Z12.31 ; Type 2 diabetes mellitus without complication, without long-term current use of insulin E11.9 ; Other obesity due to excess calories E66.09 and Body mass index (BMI) of 32.0-32.9 in adult Z68.32 [place] [address] [place] [id number] [place] [address] 09 Oct, 2017 Ganglion of left wrist M67.4 32 [place] [address] [place] [id number] [place] [address] 03 Oct, 2017 [place] [address] [place] [id number] [place] [address] 02 Oct, 2017 [facility] [address] [facility] [id number] [address] [place] [address] Oct, Ganglion cyst M67.40 [place] [address] [place] [id number] [address] [place] [address] Oct, [facility] [address] [place] [id number] [address] [place] [address] Sep, [place] [address] [place] [id number] [address] [place] [address] Sep, Major depressive disorder, r ecurrent episode, moderate F33.1 [place] [address] [place] [id number] [place] [address] Sep, [place] [address] [place] [id number] [place] [address] Sep, Right renal mass N28.89 [place] [address] [place] [id number] [place] [address] Sep, [facility] [address] [id number] [address] [place] [address] Sep, [facility] [address] [id number] [address] [place] [address] Sep, Right renal mass N28.89 [facility] [address] [id number] [address] [place] [address] Sep, [facility] [address] [id number] [address] [place] [address] Sep, [facility] [address] [id number] [address] [place] [address] Sep, [facility] [address] [id number] [address] [place] [address] Sep, [facility] [address] [facility] [id number] [address] [place] [address] Sep, [facility] [address] [id number] [address] [place] [address] Sep, [facility] [address] [id number] [address] [place] [address] Sep, Pulmonary nodule R91.1 [facility] [address] [facility] [id number] [address] [place] [address] Aug, [facility] [address] [facility] [id number] [address] [place] [address] Aug, Right renal mass N28.89 and Pulmonary nodule R91.1 [facility] [address] [facility] [id number] [address] [place] [address] 16 Aug, 2017 Essential hypertension I10 ; Right renal mass N28.89 ; Chronic gastric ulcer, unspecified whether gastric ulcer hemorrhage or perforation present K25.7 ; Spondylosis of cervical region without myelopathy or radiculopathy M47.812 ; 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 and Hospital discharge follow-up Z09 [facility] [address] [id number] [address] [place] [address] 14 Aug, 2017 [facility] [address] [facility] [id number] [address] [place] [address] Aug, [facility] [address] [facility] [id number] [address] [place] [address] Aug, [facility] [address] [facility] [id number] [address] [place] [address] Aug, Pain syndrome, chronic G89.4 ; Lumbago with sciatica, right side M54.41 ; Lumbago with sciatica, left side M54.42 ; Other chronic pain G89.29 ; Cervicalgia M54.2 ; Controlled substance agreement signed Z79.899 and Essential hypertension I10 [facility] [address] [facility] [id number] [address] [place] [address] Aug, [facility] [address] [facility] [id number] [address] [place] [address] Jul, Encounter to establish care Z76.89 ; [...] SOCIAL HISTORY Never Assessed REASON FOR VISIT Waiting for Fax PLAN OF CARE VITAL SIGNS MEDICATIONS Medication Instructions Dosage Frequency Start Date End Date Duration S tatus Gabapentin 100 mg Orally 2 times a day 1 capsule 12h 20 Sep, 2018 Active RESULTS No Results PROCEDURES No Known [...] removed 07/02/2018 Hospitalization History heart attack x3 [id number] 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 Hospitalization History left kidney removal 06/2018
--- OUTSIDE RECORDS SUMMARY | 2020-01-21 19:05 | XMS REPORT ---
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 3 Active 379225436 Problem Chronic esophagogastric ulcer K25.7 Active 25777172 Problem Metabolic disorder, unspecified E88.9 Active 683731874 Problem Renal cell carcinoma of left kidney C64.2 Active 764029366 Problem Seasonal allergic rhinitis due to pollen J30.1 Active 88727382 Problem S/p nephrectomy Z90.5 Active 1616 15701 Problem Osteoarthritis of spine with radiculopathy, cervical regio n M47.22 Active 539352127 Problem Lumbago with sciatica, right side M54.41 Active [id number] Problem Lumbago with sciatica, left side M54.42 Active 822414286 Problem Type 2 diabetes mellitus wit hout complication, without long-term current use of insulin E11.9 Active 913040342 Problem Type 2 diabetes mellitus with other specified complication E11.69 Active 55900062559991 Problem Hyperlipidemia, unspecified E78.5 Ac tive 08925559 Problem Other spondylosis with myelopathy, cervical region M47.12 Active 83685888 Problem Other spondylosis with radiculopathy, cervical region M47.22 Active 395468111 Problem Right renal mass N28.89 Active 309 874483 Problem 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 Ac tive 420020041 Problem Essential hypertension I10 Active 60435149 Problem Pain syndrome, chronic G89.4 Active 128598550 Problem Other obesity due to excess calories E66.09 Active 116568283 Problem Major depressive disorder, recurrent episode, moderate F33.1 Active 115110156 Problem Pulmonary nodule R91.1 Active 427 880208 Problem Body mass index (BMI) of 32.0-32.9 in adult Z68.32 Active 437528696 ALLERGIES No Information ENCOUNTERS Encounter Location Date Diagnosis [place] [id number] [facility] [id number] [address] [place] [phone] Jul, 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 and Hyperlipidemia, unspecified E78.5 [place] [address] [id number] [address] [place] [phone] Jul, [place] [address] [address] [facility] [id number] [address] [place] [phone] 16 Jul, 2018 Type 2 diabetes mellitus wit h other specified complication E11.69 ; Osteoarthritis of spine with radiculopathy, cervical region M47.22 ; Other spondylosis with radiculopathy, cervical region M47.22 ; S/p nephrectomy Z90.5 and Essential hypertension I10 [place] [address] [id number] [address] [place] [address] Jun, Spondylosis of cervical hakan on without myelopathy or radiculopathy M47.812 [place] [address] [id number] [address] [place] [id number] 25 Jun, 2018 Renal cell carcinoma of left kidney C64.2 ; S/p nephrectomy Z90.5 ; Type 2 diabetes mellitus with other specified complication E11.69 ; Essential hypertension I10 and Osteoarthritis of spine with radiculopathy, cervical region M47.22 [place] [address] [id number] [address] [place] [phone] Jun, [place] [address] [id number] [address] [place] [phone] Jun, Essential hypertension I10 [place] [address] [id number] [address] [place] [address] May, Spondylosis of cervical hakan on without myelopathy or radiculopathy M47.812 [place] [address] [place] [id number] [address] [place] [phone] May, [place] [address] [address] [place] [id number] [place] [phone] May, [facility] [address] [address] May, Skin ulcer of buttock, limit ed to breakdown of skin L98.411 [facility] [address] [place] [id number] [address] [place] [phone] May, Fever, unspecified fever cau se R50.9 [place] [address] [address] Apr, Acute cystitis with hematuri a N30.01 and Dehydration E86.0 [place] [address] [address] Apr, [facility] [address] [address] Apr, Dysuria R30.0 and Acute cyst itis without hematuria N30.00 [place] [address] [address] Apr, [place] [address] [address] Apr, Spondylosis of cervical hakan on without myelopathy or radiculopathy M47.812 [place] [address] [address] Apr, [facility] [address] [address] Apr, Other spondylosis with radic ulopathy, cervical region M47.22 [place] [address] [address] Apr, [place] [address] [address] 17 Apr, 2018 Other spondylosis with radic ulopathy, cervical region M47.22 ; Other spondylosis with myelopathy, cervical region M47.12 and Renal cell carcinoma of left kidney C64.2 [place] [address] [address] [place] [id number] [place] [phone] 16 Apr, 2018 [place] [address] [address] Apr, Lumbago with sciatica, right side M54.41 and Lumbago with sciatica, left side M54.[address] [address] Mar, Type 2 diabetes mellitus wit hout [...] E11.69 and Hyperlipidemia, unspecified E78.5 [facility] [id number] [place] [address] Mar, Acute suppurative otitis med ia of both ears without spontaneous rupture of tympanic membranes, recurrence not specified H66.003 [place] [address] [address] [place] [id number] [address] [place] [address] Mar, [place] [address] [address] [place] [id number] [address] [place] [address] Mar, 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 [facility] [address] [place] [id number] [address] [place] [phone] Mar, Low back pain, unspecified b ack pain laterality, unspecified chronicity, with sciatica presence unspecified M54.5 and Type 2 diabetes mellitus without complication, without long-term current use of insulin E11.9 [facility] [address] [place] [id number] [address] [place] [phone] February, [place] [address] [address] February, 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 [facility] [address] [address] February, Strain of neck muscle, initi al encounter S16.1XXA [place] [address] [address] February, Type 2 diabetes mellitus wit hout [...] Seasonal allergic rhinitis due to pollen J30.1 [place] [address] [address] [place] [id number] [address] [place] [address] February, Essential hypertension I10 ; 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 ; Body mass index (BMI) of 32.0-32.9 in adult Z68.32 and Type 2 diabetes mellitus without complication, without long-term current use of insulin E11.9 [place] [address] [address] [place] [id number] [address] [place] [address] February, Type 2 diabetes mellitus wit hout complication, without long-term current use of insulin E11.9 [place] [address] [address] Jan, Lumbago with sciatica, right side M54.41 [facility] [address] [facility] [id number] [address] [place] [id number] Jan, Sore throat J02.9 [facility] [address] [facility] [id number] [address] [place] [address] Dec, [facility] [address] [facility] [id number] [address] [place] [address] Dec, Type 2 diabetes mellitus wit hout complication, without long-term current use of insulin E11.9 [facility] [address] [facility] [id number] [address] [place] [phone] Dec, [facility] [address] [facility] [id number] [address] [place] [address] Dec, [facility] [address] [facility] [id number] [address] [place] [address] Dec, [facility] [address] [facility] [id number] [address] [place] [phone] Dec, Type 2 diabetes mellitus wit hout [...] pollen J30.1 and GERD without esophagitis K21.9 [facility] [address] [facility] [id number] [address] [place] [phone] Dec, [facility] [address] [facility] [id number] [address] [place] [phone] Nov, [facility] [address] [address] Nov, [facility] [address] [place] [id number] [place] [address] Nov, [facility] [address] [place] [id number] [place] [address] Nov, [facility] [address] [address] Oct, [facility] [address] [address] Oct, [facility] [address] [address] Oct, [facility] [address] [address] Oct, Well woman exam with routine gynecological exam Z01.419 ; Screen for STD (sexually transmitted disease) Z11.3 ; Screening breast examination Z12.31 ; Type 2 diabetes mellitus without complication, without long-term current use of insulin E11.9 ; Other obesity due to excess calories E66.09 and Body mass index (BMI) of 32.0-32.9 in adult Z68.32 [facility] [address] [address] Oct, Ganglion of left wrist M67.4 32 [facility] [address] [address] Oct, [facility] [address] [address] Oct, [facility] [address] [address] Oct, Ganglion cyst M67.40 [facility] [address] [place] [id number] [place] [address] Oct, [facility] [address] [address] Sep, [facility] [address] [id number] [address] [place] [address] Sep, Major depressive disorder, r ecurrent episode, moderate F33.1 [facility] [address] [id number] [address] [place] [phone] Sep, [facility] [address] [id number] [address] [place] [address] 15 Sep, 2017 Right renal mass N28.89 [facility] [address] [id number] [address] [place] [address] Sep, [facility] [address] [id number] [address] [place] [address] Sep, [facility] [address] [id number] [address] [place] [address] Sep, Right renal mass N28.89 [facility] [address] [id number] [address] [place] [phone] Sep, [facility] [address] [id number] [address] [place] [address] Sep, [facility] [address] [id number] [address] [place] [phone] Sep, [facility] [address] [id number] [address] [place] [phone] Sep, [facility] [address] [id number] [address] [place] [address] Sep, [facility] [address] [id number] [address] [place] [address] Sep, [facility] [address] [id number] [address] [place] [phone] Sep, Pulmonary nodule R91.1 [facility] [address] [id number] [address] [place] [address] Aug, [facility] [address] [place] [id number] [address] [place] [address] 17 Aug, 2017 Right renal mass N28.89 and Pulmonary nodule R91.1 [place] [address] [address] 16 Aug, 2017 Essential hypertension I10 ; Right renal mass N28.89 ; Chronic gastric ulcer, unspecified whether gastric ulcer hemorrhage or perforation present K25.7 ; Spondylosis of cervical region without myelopathy or radiculopathy M47.812 ; 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 and Hospital discharge follow-up Z09 [place] [address] [address] 14 Aug, 2017 [place] [address] [address] 09 Aug, 2017 [place] [address] [address] Aug, [place] [address] [address] Aug, Pain syndrome, chronic G89.4 ; Lumbago with sciatica, right side M54.41 ; Lumbago with sciatica, left side M54.42 ; Other chronic pain G89.29 ; Cervicalgia M54.2 ; Controlled substance agreement signed Z79.899 and Essential hypertension I10 [place] [address] [address] Aug, [place] [address] [address] Jul, Encounter to establish care Z76.89 ; [...] SOCIAL HISTORY Never Assessed REASON FOR VISIT Refill request PLAN OF CARE VITAL SIGNS MEDICATIONS Medication Instructions Dosage Frequency Start Date End Date Duration S satya Tizanidine HCl 4 MG Orally Three times a day 1 capsule as needed 8h Active Atorvastatin Calcium 20 mg Orally Once a day 1 tablet 24h Dec, Active RESULTS No Results PROCEDURES No Known [...] removed 07/02/2018 Hospitalization History heart attack x3 [phone] 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 Hospitalization History left kidney removal 06/2018
--- OUTSIDE RECORDS SUMMARY | 2020-01-21 19:05 | XMS REPORT ---
Author Author Amy Sutton Organization [facility] Address [address] [place] [address] Care Team Providers Care Product Developer Name Role Phone PRISCILLA Sutton Unavailable PROBLEMS ALLERGIES No Information ENCOUNTERS IMMUNIZATIONS No Known Immunizations SOCIAL HISTORY No smoking Hx information available REASON FOR VISIT PLAN OF CARE VITAL SIGNS MEDICATIONS Unknown Medications RESULTS No Results PROCEDURES No Known procedures INSTRUCTIONS MEDICATIONS ADMINISTERED No Known Medications MEDICAL (GENERAL) HISTORY
--- OUTSIDE RECORDS SUMMARY | 2020-01-21 19:05 | XMS REPORT ---
Author Author Amy BLANCAS Organization [facility] Address [address] [place] [address] Care Team Providers Care Roto Rooter Operator Name Role Phone YONNY PRISCILLA Unavailable PROBLEMS Type Condition ICD9-CM Code OBL30-XZ Code Onset Dates Condition S tatus SNOMED Code Problem Metabolic disorder, unspecified E88.9 Active 791676350 Problem Renal cell carcinoma of left kidney C64.2 Active 794174069 Problem GERD without esophagitis K21.9 Activ e 435015729 Problem S/p nephrectomy Z90.5 Active 1616 60600 Problem Type 2 diabetes mellitus wit hout complication, without long-term current use of insulin E11.9 Active 949682715 Problem Osteoarthritis of spine with radiculopathy, cervical regio n M47.22 Active 772438717 Problem Lumbago with sciatica, right side M54.41 Active 303470918032204 Problem Lumbago with sciatica, left side M54.42 Active 380472202 Problem Type 2 diabetes mellitus with other specified complication E11.69 Active 67602694016743 Problem Hyperlipidemia, unspecified E78.5 Ac tive 80312942 Problem Other spondylosis with myelopathy, cervical region M47.12 Active 82019996 Problem Other spondylosis with radiculopathy, cervical region M47.22 Active 408165869 Problem Right renal mass N28.89 Active 309 368215 Problem 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 Ac tive 454374341 Problem Essential hypertension I10 Active 13422240 Problem Pain syndrome, chronic G89.4 Active 303051088 Problem Other obesity due to excess calories E66.09 Active 591406144 Problem Major depressive disorder, recurrent episode, moderate F33.1 Active 506384547 Problem Chronic esophagogastric ulcer K25.7 Active 91368716 Problem Pulmonary nodule R91.1 Active 427 646134 Problem Seasonal allergic rhinitis due to pollen J30.1 Active 21940140 Problem Left kidney mass N28.89 Active 309 541551 Problem Body mass index (BMI) of 32.0-32.9 in adult Z68.32 Active 451531879 Problem 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 3 Active 163385084 ALLERGIES No Information ENCOUNTERS Encounter Location Date Diagnosis [place] [facility] [id number] [address] [place] [address] Jun, Spondylosis of cervical hakan on without myelopathy or radiculopathy M47.812 [place] [id number] [address] [place] [address] Jun, Renal cell carcinoma of left kidney C64.2 ; S/p nephrectomy Z90.5 ; Type 2 diabetes mellitus with other specified complication E11.69 ; Essential hypertension I10 and Osteoarthritis of spine with radiculopathy, cervical region M47.22 [place] [address] [id number] [place] [address] Jun, [place] [address] [address] [place] [id number] [address] [place] [address] Jun, Essential hypertension I10 [place] [address] [address] [facility] [id number] [address] [place] [address] May, Spondylosis of cervical hakan on without myelopathy or radiculopathy M47.812 [place] [place] [id number] [address] [place] [address] May, [place] [address] [address] [place] [id number] [address] [place] [address] May, [facility] [address] [place] [id number] [address] [place] [address] May, Skin ulcer of buttock, limit ed to breakdown of skin L98.411 [facility] [address] [place] [id number] [address] [place] [address] May, Fever, unspecified fever cau se R50.9 [facility] [address] [place] [id number] [address] [place] [address] Apr, Acute cystitis with hematuri a N30.01 and Dehydration E86.0 [facility] [address] [facility] [id number] [address] [place] [address] Apr, [facility] [address] [id number] [address] [place] [address] Apr, Dysuria R30.0 and Acute cyst itis without hematuria N30.00 [place] [address] [id number] [address] [place] [address] Apr, [facility] [address] [id number] [address] [place] [address] Apr, Spondylosis of cervical hakan on without myelopathy or radiculopathy M47.812 [place] [address] [address] [facility] [id number] [address] [place] [address] Apr, [facility] [address] [facility] [id number] [address] [place] [address] Apr, Other spondylosis with radic ulopathy, cervical region M47.22 [place] [address] [address] [facility] [id number] [address] [place] [address] Apr, [place] [address] [address] [facility] [id number] [address] [place] [address] Apr, Other spondylosis with radic ulopathy, cervical region M47.22 ; Other spondylosis with myelopathy, cervical region M47.12 and Renal cell carcinoma of left kidney C64.2 [place] [address] [id number] [address] [place] [address] Apr, [place] [address] [address] [facility] [id number] [address] [place] [address] Apr, Lumbago with sciatica, right side M54.41 and Lumbago with sciatica, left side M54.42 [place] [address] [address] [facility] [id number] [address] [place] [address] Mar, Type 2 diabetes mellitus wit hout [...] specified complication E11.69 and Hyperlipidemia, unspecified E78.5 [facility] [place] [address] [address] Mar, Acute suppurative otitis med ia of both ears without spontaneous rupture of tympanic membranes, recurrence not specified H66.003 [place] [address] [address] Mar, [place] [address] [address] Mar, 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 [place] [address] [address] Mar, Low back pain, unspecified b ack pain laterality, unspecified chronicity, with sciatica presence unspecified M54.5 and Type 2 diabetes mellitus without complication, without long-term current use of insulin E11.9 [place] [address] [address] February, [place] [address] [address] February, 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 [facility] [place] [address] [address] February, Strain of neck muscle, initi al encounter S16.1XXA [place] [address] [address] February, Type 2 diabetes mellitus wit hout [...] Seasonal allergic rhinitis due to pollen J30.1 [place] [address] [address] [place] [id number] [address] [place] [address] February, Essential hypertension I10 ; Retrolisthesis of vertebrae M43.10 ; Body mass index (BMI) of 32.0-32.9 in adult Z68.32 and Type 2 diabetes mellitus without complication, without long-term current use of insulin E11.9 [place] [address] [address] [place] [id number] [address] [place] [address] February, Type 2 diabetes mellitus wit hout complication, without long-term current use of insulin E11.9 [place] [address] [address] [place] [id number] [address] [place] [address] Jan, Lumbago with sciatica, right side M54.41 [facility] [address] [facility] [id number] [address] [place] [address] Jan, Sore throat J02.9 [facility] [address] [facility] [id number] [address] [place] [address] Dec, [place] [address] [address] [place] [id number] [address] [place] [address] Dec, Type 2 diabetes mellitus wit hout complication, without long-term current use of insulin E11.9 [place] [address] [address] [place] [id number] [address] [place] [address] Dec, [facility] [address] [place] [address] 14 Dec, 2017 [facility] [address] [place] [id number] [address] [place] [address] Dec, [facility] [address] [place] [id number] [address] [place] [address] Dec, Type 2 diabetes mellitus wit hout [...] pollen J30.1 and GERD without esophagitis K21.9 [place] [address] [address] [place] [address] Dec, [facility] [address] [place] [id number] [address] [place] [address] Nov, [facility] [address] [place] [id number] [address] [place] [address] Nov, [facility] [address] [place] [address] Nov, [facility] [address] [place] [id number] [address] [place] [address] Nov, [facility] [address] [place] [id number] [address] [place] [address] Oct, [facility] [address] [place] [id number] [address] [place] [address] Oct, [facility] [address] [place] [id number] [address] [place] [address] Oct, [facility] [address] [place] [id number] [address] [place] [address] 11 Oct, 2018 Well woman exam with routine gynecological exam Z01.419 ; Screen for STD (sexually transmitted disease) Z11.3 ; Screening breast examination Z12.31 ; Type 2 diabetes mellitus without complication, without long-term current use of insulin E11.9 ; Other obesity due to excess calories E66.09 and Body mass index (BMI) of 32.0-32.9 in adult Z68.32 [place] [address] [address] 09 Oct, 2017 Ganglion of left wrist M67.4 32 [place] [address] [address] 03 Oct, 2017 [place] [address] [address] [place] [id number] [place] [address] Oct, [facility] [address] [place] [id number] [place] [address] Oct, Ganglion cyst M67.40 [place] [address] [address] [place] [id number] [address] [place] [address] Oct, [place] [address] [address] Sep, [place] [address] [address] Sep, Major depressive disorder, r ecurrent episode, moderate F33.1 [place] [address] [address] [place] [id number] [address] [place] [address] Sep, [place] [address] [address] [place] [id number] [place] [address] Sep, Right renal mass N28.89 [place] [address] [address] [place] [id number] [address] [place] [address] Sep, [place] [address] [address] Sep, [place] [address] [id number] [address] [place] [address] Sep, Right renal mass N28.89 [facility] [address] [id number] [address] [place] [address] Sep, [facility] [address] [facility] [id number] [address] [place] [address] Sep, [facility] [address] [id number] [address] [place] [address] Sep, [facility] [address] [facility] [id number] [address] [place] [address] Sep, [facility] [address] [facility] [id number] [address] [place] [address] Sep, [facility] [address] [facility] [id number] [address] [place] [address] Sep, [facility] [address] [facility] [id number] [address] [place] [address] Sep, Pulmonary nodule R91.1 [facility] [address] [facility] [id number] [address] [place] [address] Aug, [facility] [address] [facility] [id number] [address] [place] [address] Aug, Right renal mass N28.89 and Pulmonary nodule R91.1 [facility] [address] [facility] [id number] [address] [place] [address] 16 Aug, 2017 Essential hypertension I10 ; Right renal mass N28.89 ; Chronic gastric ulcer, unspecified whether gastric ulcer hemorrhage or perforation present K25.7 ; Spondylosis of cervical region without myelopathy or radiculopathy M47.812 ; Retrolisthesis of vertebrae M43.10 and Hospital discharge follow-up Z09 [facility] [address] [facility] [id number] [address] [place] [address] 14 Aug, 2017 [facility] [address] [facility] [id number] [address] [place] [address] Aug, [facility] [address] [facility] [id number] [address] [place] [address] Aug, [facility] [address] [facility] [id number] [address] [place] [address] Aug, Pain syndrome, chronic G89.4 ; Lumbago with sciatica, right side M54.41 ; Lumbago with sciatica, left side M54.42 ; Other chronic pain G89.29 ; Cervicalgia M54.2 ; Controlled substance agreement signed Z79.899 and Essential hypertension I10 [facility] [address] [facility] [id number] [address] [place] [address] Aug, [facility] [address] [facility] [id number] [address] [place] [address] Jul, Encounter to establish care Z76.89 ; [...] Start Date End Date Duration S tatus Lisinopril 20 mg Orally Once a day 1 [...] polyp removal/colonoscopy Hospitalization History heart attack x3 [phone] 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 Hospitalization History left kidney removal 06/2018
--- OUTSIDE RECORDS SUMMARY | 2020-01-21 19:05 | XMS REPORT ---
Author Author Amy Sutton Organization [facility] Address [address] [place] [address] Care Team Providers [employer] Worker Name Role Phone HermanNADERPRISCILLA Unavailable PROBLEMS Type Condition ICD9-CM Code ZQS23-EA Code Onset Dates Condition S tatus SNOMED Code Problem Cervical stenosis of spinal canal M48.02 Active 14573922 Problem GERD without esophagitis K21.9 Activ e 127042429 Problem Left kidney mass N28.89 Active 309 998303 Problem 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 3 Active 972330706 Problem Chronic esophagogastric ulcer K25.7 Active 49916155 Problem Metabolic disorder, unspecified E88.9 Active 452993065 Problem Renal cell carcinoma of left kidney C64.2 Active 729734771 Problem Seasonal allergic rhinitis due to pollen J30.1 Active 83141350 Problem S/p nephrectomy Z90.5 Active 1616 81904 Problem Osteoarthritis of spine with radiculopathy, cervical regio n M47.22 Active 104625236 Problem Lumbago with sciatica, right side M54.41 Active 247178046761520 Problem Lumbago with sciatica, left side M54.42 Active 157184911 Problem Type 2 diabetes mellitus wit hout complication, without long-term current use of insulin E11.9 Active 991594717 Problem Type 2 diabetes mellitus with other specified complication E11.69 Active 09162982798678 Problem Hyperlipidemia, unspecified E78.5 Ac tive 15196001 Problem Other spondylosis with myelopathy, cervical region M47.12 Active 35498444 Problem Other spondylosis with radiculopathy, cervical region M47.22 Active 789358426 Problem Right renal mass N28.89 Active 309 701845 Problem Retrolisthesis of vertebrae M43.10 Ac tive 636613625 Problem Essential hypertension I10 Active 34076368 Problem Pain syndrome, chronic G89.4 Active 342035781 Problem Other obesity due to excess calories E66.09 Active 547705973 Problem Major depressive disorder, recurrent episode, moderate F33.1 Active 173127877 Problem Pulmonary nodule R91.1 Active 427 395346 Problem Body mass index (BMI) of 32.0-32.9 in adult Z68.32 Active 187199026 ALLERGIES Substance Reaction Event Type Date Status Ketorolac Tromethamine Unknown Drug Allergy Jun, Activ e Hydrocodone-Acetaminophen anaphylaxis Drug Allergy Jun, Ac tive Feldene cintron's palsy Drug Allergy Jun, Active Doxycycline Monohydrate anaphylaxis Drug Allergy Jun, Acti ve ENCOUNTERS Encounter Location Date Diagnosis [facility] [address] [facility] [id number] [address] [place] [id number] Jun, Spondylosis of cervical hakan on without myelopathy or radiculopathy M47.812 [facility] [address] [place] [id number] [address] [place] [id number] Jun, Renal cell carcinoma of left kidney C64.2 ; S/p nephrectomy Z90.5 ; Type 2 diabetes mellitus with other specified complication E11.69 ; Essential hypertension I10 and Osteoarthritis of spine with radiculopathy, cervical region M47.22 [facility] [address] [facility] [id number] [address] [place] [phone] Jun, [facility] [address] [facility] [id number] [address] [place] [phone] Jun, Essential hypertension I10 [facility] [address] [facility] [id number] [address] [place] [phone] May, Spondylosis of cervical hakan on without myelopathy or radiculopathy M47.812 [facility] [address] [facility] [id number] [address] [place] [phone] May, [facility] [address] [facility] [id number] [address] [place] [phone] May, [facility] [address] [facility] [id number] [address] [place] [phone] 09 Aug, 2018 Skin ulcer of buttock, limit ed to breakdown of skin L98.411 [facility] [address] [facility] [id number] [address] [place] [phone] May, Fever, unspecified fever cau se R50.9 [facility] [address] [facility] [id number] [address] [place] [address] Apr, Acute cystitis with hematuri a N30.01 and Dehydration E86.0 [facility] [address] [id number] [address] [place] [phone] Apr, [facility] [address] [facility] [id number] [address] [place] [id number] Apr, Dysuria R30.0 and Acute cyst itis without hematuria N30.00 [place] [address] [facility] [id number] [address] [place] [phone] Apr, [facility] [address] [facility] [id number] [address] [place] [id number] Apr, Spondylosis of cervical hakan on without myelopathy or radiculopathy M47.812 [place] [address] [place] [id number] [address] [place] [phone] Apr, [facility] IN [facility] [address] [facility] [id number] [address] [place] [phone] Apr, Other spondylosis with radic ulopathy, cervical region M47.22 [place] [address] [facility] [id number] [address] [place] [phone] Apr, [place] [address] [facility] [id number] [address] [place] [phone] Apr, Other spondylosis with radic ulopathy, cervical region M47.22 ; Other spondylosis with myelopathy, cervical region M47.12 and Renal cell carcinoma of left kidney C64.2 [facility] [address] [facility] [id number] [address] [place] [phone] Apr, [facility] [address] [id number] Apr, Lumbago with sciatica, right side M54.41 and Lumbago with sciatica, left side M54.42 [place] [address] [address] Mar, Type 2 diabetes mellitus wit hout [...] specified complication E11.69 and Hyperlipidemia, unspecified E78.5 [facility] [address] [address] Mar, Acute suppurative otitis med ia of both ears without spontaneous rupture of tympanic membranes, recurrence not specified H66.003 [place] [address] [address] Mar, [place] [address] [address] Mar, Retrolisthesis of vertebrae M43.10 [facility] IN [facility] [address] [address] Mar, Low back pain, unspecified b ack pain laterality, unspecified chronicity, with sciatica presence unspecified M54.5 and Type 2 diabetes mellitus without complication, without long-term current use of insulin E11.9 [place] [address] [address] February, [place] [address] [address] February, Retrolisthesis of vertebrae M43.10 [facility] [address] [place] [id number] [address] [place] [id number] February, Strain of neck muscle, initi al encounter S16.1XXA [place] [address] [place] [id number] [address] [place] [id number] February, Type 2 diabetes mellitus wit hout [...] Seasonal allergic rhinitis due to pollen J30.1 [place] [address] [place] [id number] [address] [place] [id number] February, Essential hypertension I10 ; Retrolisthesis of vertebrae M43.10 ; Body mass index (BMI) of 32.0-32.9 in adult Z68.32 and Type 2 diabetes mellitus without complication, without long-term current use of insulin E11.9 [place] [address] [place] [address] February, Type 2 diabetes mellitus wit hout complication, without long-term current use of insulin E11.9 [place] [address] [facility] [id number] [address] [place] [phone] Jan, Lumbago with sciatica, right side M54.41 [facility] IN [facility] [address] [place] [id number] [address] [place] [phone] Jan, Sore throat J02.9 [place] [address] [place] [id number] [address] [place] [phone] Dec, [place] [address] [place] [address] 19 Dec, 2017 Type 2 diabetes mellitus wit hout complication, without long-term current use of insulin E11.9 [facility] [address] [facility] [id number] [address] [place] [phone] Dec, [facility] [address] [place] [id number] [address] [place] [phone] Dec, [facility] [address] [address] Dec, [facility] [address] [address] Dec, Type 2 diabetes mellitus wit hout [...] pollen J30.1 and GERD without esophagitis K21.9 [facility] [address] [place] [id number] [address] [place] [phone] Dec, [facility] [address] [place] [address] Nov, [facility] [address] [place] [id number] [address] [place] [phone] Nov, [facility] [address] [place] [id number] [address] [place] [phone] Nov, [facility] [address] [place] [id number] [address] [place] [phone] Nov, [facility] [address] [place] [id number] [address] [place] [phone] Oct, [facility] [address] [facility] [id number] [address] [place] [phone] Oct, [facility] [address] [facility] [id number] [address] [place] [phone] Oct, [facility] [address] [place] [id number] [address] [place] [phone] Oct, Well woman exam with routine gynecological exam Z01.419 ; Screen for STD (sexually transmitted disease) Z11.3 ; Screening breast examination Z12.31 ; Type 2 diabetes mellitus without complication, without long-term current use of insulin E11.9 ; Other obesity due to excess calories E66.09 and Body mass index (BMI) of 32.0-32.9 in adult Z68.32 [place] [address] [place] [id number] [address] [place] [address] Oct, Ganglion of left wrist M67.4 32 [place] [address] [place] [id number] [address] [place] [phone] Oct, [place] [address] [facility] [id number] [address] [place] [phone] Oct, [facility] [address] [facility] [id number] [address] [place] [phone] Oct, Ganglion cyst M67.40 [facility] [address] [facility] [id number] [address] [place] [phone] Oct, [facility] [address] [place] [id number] [address] [place] [phone] Sep, [place] [address] [facility] [id number] [address] [place] [phone] Sep, Major depressive disorder, r ecurrent episode, moderate F33.1 [place] [address] [facility] [id number] [address] [place] [phone] Sep, [facility] [address] [place] [id number] [address] [place] [phone] Sep, Right renal mass N28.89 [facility] [address] [id number] [address] [place] [phone] Sep, [facility] [address] [id number] [address] [place] [phone] Sep, [facility] [address] [facility] [id number] [address] [place] [phone] Sep, Right renal mass N28.89 [facility] [address] [id number] [address] [place] [phone] Sep, [facility] [address] [id number] [address] [place] [phone] Sep, [facility] [address] [id number] [address] [place] [phone] Sep, [facility] [address] [facility] [id number] [address] [place] [phone] Sep, [facility] [address] [id number] [address] [place] [phone] Sep, [facility] [address] [id number] [address] [place] [phone] Sep, [facility] [address] [facility] [id number] [address] [place] [phone] Sep, Pulmonary nodule R91.1 [facility] [address] [facility] [id number] [address] [place] [phone] Aug, [facility] [address] [id number] [address] [place] [phone] Aug, Right renal mass N28.89 and Pulmonary nodule R91.1 [facility] [address] [facility] [id number] [address] [place] [phone] Aug, Essential hypertension I10 ; Right renal mass N28.89 ; Chronic gastric ulcer, unspecified whether gastric ulcer hemorrhage or perforation present K25.7 ; Spondylosis of cervical region without myelopathy or radiculopathy M47.812 ; Retrolisthesis of vertebrae M43.10 and Hospital discharge follow-up Z09 [place] [address] [place] [phone] 14 Aug, 2017 [facility] [address] [place] [id number] [address] [place] [phone] 09 Aug, 2017 [place] [address] [place] [id number] [place] [phone] Aug, [place] [address] [place] [id number] [place] [id number] Aug, Pain syndrome, chronic G89.4 ; Lumbago with sciatica, right side M54.41 ; Lumbago with sciatica, left side M54.42 ; Other chronic pain G89.29 ; Cervicalgia M54.2 ; Controlled substance agreement signed Z79.899 and Essential hypertension I10 [place] [address] [place] [id number] [address] [place] [address] 02 Aug, 2017 [place] [address] [place] [id number] [address] [place] [phone] Jul, Encounter to establish care Z76.89 ; [...] SOCIAL HISTORY Never Assessed REASON FOR VISIT Blood Pressure- had left kidney removed last wednesday- she was told to hold Lis inopril post op d/t kidney removal, has not had a BM, is passing gas- Sae Villalobos RN PLAN OF CARE Activity Details Follow Up 3 Months, prn Reason:CHM/DM w/ [facility] Pending Test MRI : Cervical w/o Contrast VITAL SIGNS Height 68 in 2018-07-12 Weight 212 lbs 2018-07-12 Temperature 98.9 degrees Fahrenheit 2018-07-12 Heart Rate 88 bpm 2018-07-12 Respiratory Rate 18 2018-07-12 BMI 32.23 kg/m2 2018-07-12 Blood pressure systolic 122 mmHg 2018-07-12 Blood pressure diastolic 78 mmHg 2018-07-12 MEDICATIONS Medication Instructions Dosage Frequency Start Date End Date Duration S satya Barboza Silver 50+Women - Active Dexilant 60 MG TAKE ONE CAPSULE BY MOUTH ONCE DAILY 90 Active Fluticasone Propionate 50 MCG/ACT Nasally Once a day 1 spray in each nostril 24h Dec, Active Aspirin 81 MG Orally Once a day 1 tablet 24h Active Sucralfate 1 GM Orally 4 times a day 1 tablet 6h Active Onglyza 5 mg Orally Once a day 1 tablet 24h 30 Active Sertraline HCl 25 MG TAKE ONE TABLET BY MOUTH ONCE DAILY 30 Active Accu-Chek Soft Touch Device - as directed 8h February, Active Oxycodone-Acetaminophen 7.5-325 MG Orally every 6 hrs 1 tablet as n eeded 6h May, 28 days Active Pioglitazone HCl-Metformin HCl 15-500 MG TAKE ONE TABLET BY MOUTH ONCE DAILY WITH A MEAL 30 Active Metoprolol Tartrate 100 MG TAKE ONE TABLET BY MOUTH TWICE DAILY WITH FOOD 30 Active Blood Glucose Test Strip - In Vitro 3 times a day as directed 8h February, Active Tizanidine HCl 4 MG Orally Three times a day 1 capsule as needed 8h Active Atorvastatin Calcium 20 mg Orally Once a day 1 tablet 24h Dec, 18 Active Accu-Chek Soft Touch Lancets - as directed 8h February, 30 days Active Gabapentin 300 MG Orally Once a day 1 capsule before bedtime 24h 30 Active RESULTS Name Result Date Reference Range A1C (IN HOUSE) 2018-07-12 A1C IN HOUSE 6.7 4.3 - 5.6 % Previous A1c 6.9 Lot [id number] Exp date 12/2019 PROCEDURES Procedure Date Ordered Result Body Site GLYCATED HEMOGLOBIN TEST Jul 12, 2018 INSTRUCTIONS MEDICATIONS ADMINISTERED No Known Medications MEDICAL [...] polyp removal/colonoscopy Hospitalization History heart attack x3 [phone] 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 Hospitalization History left kidney removal 06/2018
--- OUTSIDE RECORDS SUMMARY | 2020-01-21 19:05 | XMS REPORT ---
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 3 Active 739814136 Problem Seasonal allergic rhinitis due to pollen J30.1 Active 42445685 Problem Metabolic disorder, unspecified E88.9 Active 178887202 Problem Skin ulcer of buttock, limited to breakdown of skin L98.411 Active 01776174 Problem Lumbago with sciatica, right side M54.41 Active [id number] Problem Other spondylosis with myelopathy, cervical region M47.12 Active 58691604 Problem Lumbago with sciatica, left side M54.42 Active 199952630 Problem Type 2 diabetes mellitus wit hout complication, without long-term current use of insulin E11.9 Active 290905008 Problem Hyperlipidemia, unspecified E78.5 Ac tive 45976150 Problem Renal cell carcinoma of left kidney C64.2 Active 225497536 Problem Other spondylosis with radiculopathy, cervical region M47.22 Active 537806609 Problem Type 2 diabetes mellitus with other specified complication E11.69 Active 75048788886145 Problem Right renal mass N28.89 Active 309 194490 Problem Retrolisthesis of vertebrae M43.10 Ac tive 567043037 Problem Essential hypertension I10 Active 60705159 Problem Pain syndrome, chronic G89.4 Active 476762798 Problem Body mass index (BMI) of 32.0-32.9 in adult Z68.32 Active 628263966 Problem Other obesity due to excess calories E66.09 Active 970544261 Problem Left kidney mass N28.89 Active 309 883591 Problem Spondylosis of cervical region without myelopath y or radiculopathy M47.812 Active 737751225 Problem Major depressive disorder, recurrent episode, moderate F33.1 Active 018395616 Problem Chronic esophagogastric ulcer K25.7 Active 36060726 Problem Pulmonary nodule R91.1 Active 427 691129 Problem GERD without esophagitis K21.9 Activ e 086532649 ALLERGIES No Information ENCOUNTERS Encounter Location Date Diagnosis [place] [address] [address] Jun, [place] [address] [address] Jun, Essential hypertension I10 [place] [address] [address] May, Spondylosis of cervical hakan on without myelopathy or radiculopathy M47.812 [place] [address] [address] May, [place] [address] [address] May, [facility] [address] [address] May, Skin ulcer of buttock, limit ed to breakdown of skin L98.411 [facility] WALK IN [place] [address] [address] May, Fever, unspecified fever cau se R50.9 [place] [address] [address] Apr, Acute cystitis with hematuri a N30.01 and Dehydration E86.0 [place] [address] [address] Apr, [facility] [address] [address] Apr, Dysuria R30.0 and Acute cyst itis without hematuria N30.00 [place] [address] [address] Apr, [facility] [address] [id number] [address] [place] [address] Apr, Spondylosis of cervical hakan on without myelopathy or radiculopathy M47.812 [facility] [address] [id number] [address] [place] [address] Apr, [facility] [address] [id number] [address] [place] [address] Apr, Other spondylosis with radic ulopathy, cervical region M47.22 [facility] [address] [id number] [address] [place] [phone] Apr, [facility] [address] [id number] [address] [place] [phone] Apr, Other spondylosis with radic ulopathy, cervical region M47.22 ; Other spondylosis with myelopathy, cervical region M47.12 and Renal cell carcinoma of left kidney C64.2 [facility] [address] [id number] [address] [place] [phone] Apr, [facility] [address] [facility] [id number] [address] [place] [address] Apr, Lumbago with sciatica, right side M54.41 and Lumbago with sciatica, left side M54.42 [facility] [address] [id number] [address] [place] [address] Mar, Type 2 diabetes mellitus wit hout [...] specified complication E11.69 and Hyperlipidemia, unspecified E78.5 [facility] WALK [facility] [place] [address] [address] Mar, Acute suppurative otitis med ia of both ears without spontaneous rupture of tympanic membranes, recurrence not specified H66.003 [place] [address] [address] Mar, [place] [address] [address] Mar, Retrolisthesis of vertebrae M43.10 [facility] [place] [address] [address] Mar, Low back pain, unspecified b ack pain laterality, unspecified chronicity, with sciatica presence unspecified M54.5 and Type 2 diabetes mellitus without complication, without long-term current use of insulin E11.9 [place] [address] [address] February, [place] [address] [address] February, Retrolisthesis of vertebrae M43.10 [facility] [place] [address] [address] February, Strain of neck muscle, initi al encounter S16.1XXA [address] [address] February, Type 2 diabetes mellitus wit hout [...] Seasonal allergic rhinitis due to pollen J30.1 [id number] [facility] [id number] [address] [place] [address] February, Essential hypertension I10 ; Retrolisthesis of vertebrae M43.10 ; Body mass index (BMI) of 32.0-32.9 in adult Z68.32 and Type 2 diabetes mellitus without complication, without long-term current use of insulin E11.9 [place] [address] [address] [facility] [id number] [address] [place] [address] February, Type 2 diabetes mellitus wit hout complication, without long-term current use of insulin E11.9 [place] [address] [address] [facility] [id number] [address] [place] [address] Jan, Lumbago with sciatica, right side M54.41 [facility] [address] [facility] [id number] [address] [place] [phone] Jan, Sore throat J02.9 [facility] [address] [facility] [id number] [address] [place] [phone] Dec, [place] [address] [address] [facility] [id number] [address] [place] [address] Dec, Type 2 diabetes mellitus wit hout complication, without long-term current use of insulin E11.9 [place] [address] [address] [facility] [id number] [address] [place] [phone] Dec, [facility] [address] [facility] [id number] [address] [place] [phone] Dec, [place] [address] [address] [facility] [id number] [address] [place] [phone] Dec, [place] [address] [address] [facility] [id number] [address] [place] [address] Dec, Type 2 diabetes mellitus wit hout [...] pollen J30.1 and GERD without esophagitis K21.9 [place] [address] [id number] [address] [place] [phone] Dec, [place] [address] [id number] [address] [place] [phone] Nov, [place] [address] [id number] [address] [place] [phone] Nov, [place] [address] [id number] [address] [place] [phone] Nov, [place] [address] [id number] [address] [place] [phone] Nov, [place] [address] [id number] [address] [place] [phone] Oct, [place] [address] [id number] [address] [place] [phone] Oct, [place] [address] [id number] [address] [place] [phone] Oct, [place] [address] [id number] [address] [place] [address] 11 Oct, 2017 Well woman exam with routine gynecological exam Z01.419 ; Screen for STD (sexually transmitted disease) Z11.3 ; Screening breast examination Z12.31 ; Type 2 diabetes mellitus without complication, without long-term current use of insulin E11.9 ; Other obesity due to excess calories E66.09 and Body mass index (BMI) of 32.0-32.9 in adult Z68.32 [place] [address] [address] [facility] [id number] [address] [place] [address] Oct, Ganglion of left wrist M67.4 32 [facility] [address] [id number] [address] [place] [address] Oct, [facility] [address] [facility] [id number] [address] [place] [phone] Oct, [facility] [address] [facility] [id number] [address] [place] [address] Oct, Ganglion cyst M67.40 [facility] [address] [id number] [address] [place] [phone] Oct, [facility] [address] [facility] [id number] [address] [place] [phone] Sep, [facility] [address] [facility] [id number] [address] [place] [phone] Sep, Major depressive disorder, r ecurrent episode, moderate F33.1 [facility] [address] [facility] [id number] [address] [place] [phone] Sep, [facility] [address] [facility] [id number] [address] [place] [address] Sep, Right renal mass N28.89 [facility] [address] [facility] [id number] [address] [place] [phone] Sep, [facility] [address] [facility] [id number] [address] [place] [phone] Sep, [facility] [address] [facility] [id number] [address] [place] [address] Sep, Right renal mass N28.89 [facility] [address] [facility] [id number] [address] [place] [phone] Sep, [facility] [address] [facility] [id number] [address] [place] [phone] Sep, [facility] [address] [facility] [id number] [address] [place] [phone] Sep, [facility] [address] [place] [id number] [address] [place] [phone] Sep, [facility] [address] [place] [id number] [place] [phone] Sep, [facility] [address] [place] [id number] [address] [place] [phone] Sep, [facility] [address] [place] [id number] [place] [phone] Sep, Pulmonary nodule R91.1 [place] [address] [address] [place] [id number] [place] [phone] Aug, [place] [address] [address] [place] [id number] [place] [phone] Aug, Right renal mass N28.89 and Pulmonary nodule R91.1 [place] [address] [address] Aug, Essential hypertension I10 ; Right renal mass N28.89 ; Chronic gastric ulcer, unspecified whether gastric ulcer hemorrhage or perforation present K25.7 ; Spondylosis of cervical region without myelopathy or radiculopathy M47.812 ; Retrolisthesis of vertebrae M43.10 and Hospital discharge follow-up Z09 [place] [address] [place] [id number] [address] [place] [phone] 14 Aug, 2017 [place] [address] [place] [id number] [address] [place] [phone] Aug, [facility] [address] [place] [id number] [address] [place] [phone] Aug, [place] [address] [address] [place] [id number] [place] [address] Aug, Pain syndrome, chronic G89.4 ; Lumbago with sciatica, right side M54.41 ; Lumbago with sciatica, left side M54.42 ; Other chronic pain G89.29 ; Cervicalgia M54.2 ; Controlled substance agreement signed Z79.899 and Essential hypertension I10 [facility] [address] [facility] [id number] [address] [address] Aug, [facility] [address] [facility] [id number] [address] [place] [phone] Jul, Encounter to establish care Z76.89 ; [...] SOCIAL HISTORY Never Assessed REASON FOR VISIT Oxycodone 06/10 PLAN OF CARE VITAL SIGNS MEDICATIONS Medication Instructions Dosage Frequency Start Date End Date Duration S tatus Oxycodone-Acetaminophen 7.5-325 MG Orally every 6 hrs 1 tablet as n eeded 6h May, 28 days Active RESULTS No Results PROCEDURES [...] polyp removal/colonoscopy Hospitalization History heart attack x3 [id number] 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
--- OUTSIDE RECORDS SUMMARY | 2020-01-21 19:05 | XMS REPORT ---
Author Author Amy Sutton Organization [facility] Address [address] [place] [address] Care Team Providers Care General Cargo Clerk Name Role Phone HermanNADERPRISCILLA Unavailable PROBLEMS Type Condition ICD9-CM Code CYG54-DH Code Onset Dates Condition S tatus SNOMED Code Problem Cervical stenosis of spinal canal M48.02 Active 44578903 Problem GERD without esophagitis K21.9 Activ e 063460028 Problem Left kidney mass N28.89 Active 309 003176 Problem 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 3 Active 319310376 Problem Chronic esophagogastric ulcer K25.7 Active 52268227 Problem Metabolic disorder, unspecified E88.9 Active 704586178 Problem Renal cell carcinoma of left kidney C64.2 Active 218922594 Problem Seasonal allergic rhinitis due to pollen J30.1 Active 16637501 Problem S/p nephrectomy Z90.5 Active 1616 67024 Problem Osteoarthritis of spine with radiculopathy, cervical regio n M47.22 Active 896002192 Problem Lumbago with sciatica, right side M54.41 Active [id number] Problem Lumbago with sciatica, left side M54.42 Active 898696967 Problem Type 2 diabetes mellitus wit hout complication, without long-term current use of insulin E11.9 Active 530131823 Problem Type 2 diabetes mellitus with other specified complication E11.69 Active 99814946946473 Problem Hyperlipidemia, unspecified E78.5 Ac tive 99862485 Problem Other spondylosis with myelopathy, cervical region M47.12 Active 05229596 Problem Other spondylosis with radiculopathy, cervical region M47.22 Active 178423773 Problem Right renal mass N28.89 Active 309 917864 Problem Retrolisthesis of vertebrae M43.10 Ac tive 750214732 Problem Essential hypertension I10 Active 85713710 Problem Pain syndrome, chronic G89.4 Active 070599036 Problem Other obesity due to excess calories E66.09 Active 538241063 Problem Major depressive disorder, recurrent episode, moderate F33.1 Active 060481413 Problem Pulmonary nodule R91.1 Active 427 477047 Problem Body mass index (BMI) of 32.0-32.9 in adult Z68.32 Active 247310610 ALLERGIES No Information ENCOUNTERS Encounter Location Date Diagnosis [place] [facility] [id number] [address] [place] [phone] Jun, Spondylosis of cervical hakan on without myelopathy or radiculopathy M47.812 [place] [facility] [id number] [address] [place] [phone] Jun, Renal cell carcinoma of left kidney C64.2 ; S/p nephrectomy Z90.5 ; Type 2 diabetes mellitus with other specified complication E11.69 ; Essential hypertension I10 and Osteoarthritis of spine with radiculopathy, cervical region M47.22 [place] [address] [address] [facility] [id number] [address] [place] [phone] Jun, [place] [address] [address] [facility] [id number] [address] [place] [phone] 17 Jun, 2018 Essential hypertension I10 [place] [address] [address] [facility] [id number] [address] [place] [phone] May, Spondylosis of cervical hakan on without myelopathy or radiculopathy M47.812 [place] [address] [address] [place] [id number] [address] [place] [phone] May, [place] [address] [address] [facility] [id number] [address] [place] [phone] May, [facility] [address] [facility] [id number] [address] [place] [phone] May, Skin ulcer of buttock, limit ed to breakdown of skin L98.[address] [facility] [address] [facility] [id number] [address] [place] [phone] May, Fever, unspecified fever cau se R50.9 [place] [address] [id number] [address] [place] [phone] Apr, Acute cystitis with hematuri a N30.01 and Dehydration E86.0 [facility] [address] [id number] [address] [place] [phone] Apr, [facility] [address] [id number] [address] [place] [phone] Apr, Dysuria R30.0 and Acute cyst itis without hematuria N30.00 [place] [address] [id number] [address] [place] [phone] Apr, [place] [address] [address] [facility] [id number] [address] [place] [phone] Apr, Spondylosis of cervical hakan on without myelopathy or radiculopathy M47.812 [place] [address] [address] [facility] [id number] [address] [place] [phone] Apr, [facility] [address] [facility] [id number] [address] [place] [phone] Apr, Other spondylosis with radic ulopathy, cervical region M47.22 [place] [address] [address] [facility] [id number] [address] [place] [phone] Apr, [place] [facility] [id number] [address] [place] [phone] Apr, Other spondylosis with radic ulopathy, cervical region M47.22 ; Other spondylosis with myelopathy, cervical region M47.12 and Renal cell carcinoma of left kidney C64.2 [place] [address] [address] [facility] [id number] [address] [place] [phone] Apr, [place] [address] [address] [facility] [id number] [address] [place] [phone] Apr, Lumbago with sciatica, right side M54.41 and Lumbago with sciatica, left side M54.42 [place] [address] [address] Mar, Type 2 diabetes mellitus wit hout [...] specified complication E11.69 and Hyperlipidemia, unspecified E78.[address] [facility] [place] [id number] [address] Mar, Acute suppurative otitis med ia of both ears without spontaneous rupture of tympanic membranes, recurrence not specified H66.003 [place] [address] [address] Mar, [place] [address] [address] Mar, Retrolisthesis of vertebrae M43.10 [facility] [place] [id number] [address] Mar, Low back pain, unspecified b ack pain laterality, unspecified chronicity, with sciatica presence unspecified M54.5 and Type 2 diabetes mellitus without complication, without long-term current use of insulin E11.9 [place] [address] [address] February, [place] [address] [address] February, Retrolisthesis of vertebrae M43.10 [facility] IN [facility] [address] [address] February, Strain of neck muscle, initi al encounter S16.1XXA [place] [address] [place] [id number] [place] [phone] February, Type 2 diabetes mellitus wit hout [...] Seasonal allergic rhinitis due to pollen J30.1 [place] [address] [address] February, Essential hypertension I10 ; Retrolisthesis of vertebrae M43.10 ; Body mass index (BMI) of 32.0-32.9 in adult Z68.32 and Type 2 diabetes mellitus without complication, without long-term current use of insulin E11.9 [place] [address] [address] February, Type 2 diabetes mellitus wit hout complication, without long-term current use of insulin E11.9 [place] [address] [address] [place] [id number] [place] [address] Jan, Lumbago with sciatica, right side M54.41 [facility] [address] [place] [id number] [address] [place] [phone] Jan, Sore throat J02.9 [place] [address] [address] [place] [id number] [address] [place] [phone] Dec, [place] [address] [address] Dec, Type 2 diabetes mellitus wit hout complication, without long-term current use of insulin E11.9 [place] [address] [address] Dec, [facility] [address] [facility] [id number] [address] [place] [phone] Dec, [facility] [address] [facility] [id number] [address] [place] [phone] Dec, [facility] [address] [place] [id number] [address] [place] [phone] Dec, Type 2 diabetes mellitus wit hout [...] without esophagitis K21.9 [facility] [address] [place] [id number] [address] [place] [phone] Dec, [facility] [address] [facility] [id number] [address] [place] [phone] Nov, [facility] [address] [place] [id number] [address] [place] [phone] Nov, [facility] [address] [facility] [id number] [address] [place] [phone] Nov, [facility] [address] [facility] [id number] [address] [place] [phone] Nov, [facility] [address] [facility] [id number] [address] [place] [phone] Oct, [facility] [address] [facility] [id number] [address] [place] [phone] Oct, [facility] [address] [place] [id number] [address] [place] [phone] 16 Oct, 2017 [facility] [address] [facility] [id number] [address] [place] [phone] 11 Oct, 2018 Well woman exam with routine gynecological exam Z01.419 ; Screen for STD (sexually transmitted disease) Z11.3 ; Screening breast examination Z12.31 ; Type 2 diabetes mellitus without complication, without long-term current use of insulin E11.9 ; Other obesity due to excess calories E66.09 and Body mass index (BMI) of 32.0-32.9 in adult Z68.32 [place] [address] [id number] [address] [place] [phone] 09 Oct, 2017 Ganglion of left wrist M67.4 32 [place] [address] [address] [facility] [id number] [address] [place] [phone] 03 Oct, 2017 [place] [address] [address] [facility] [id number] [address] [place] [phone] 02 Oct, 2017 [facility] [address] [id number] [address] [place] [phone] Oct, Ganglion cyst M67.40 [place] [address] [address] [facility] [id number] [address] [place] [phone] Oct, [facility] [address] [facility] [id number] [address] [place] [phone] Sep, [place] [address] [address] [facility] [id number] [address] [place] [phone] Sep, Major depressive disorder, r ecurrent episode, moderate F33.1 [place] [address] [id number] [address] [place] [phone] Sep, [place] [address] [address] [facility] [id number] [address] [place] [phone] Sep, Right renal mass N28.89 [facility] [address] [facility] [id number] [address] [place] [phone] Sep, [place] [address] [address] [facility] [id number] [address] [place] [phone] Sep, [facility] [address] [id number] [address] [place] [address] Sep, Right renal mass N28.89 [facility] [address] [id number] [address] [place] [phone] Sep, [facility] [address] [facility] [id number] [address] [place] [phone] Sep, [facility] [address] [id number] [address] [place] [phone] Sep, [facility] [address] [facility] [id number] [address] [place] [phone] Sep, [facility] [address] [facility] [id number] [address] [place] [phone] Sep, [facility] [address] [facility] [id number] [address] [place] [phone] Sep, [facility] [address] [id number] [address] [place] [phone] Sep, Pulmonary nodule R91.1 [facility] [address] [facility] [id number] [address] [place] [phone] Aug, [facility] [address] [facility] [id number] [address] [place] [phone] Aug, Right renal mass N28.89 and Pulmonary nodule R91.1 [facility] [address] [facility] [id number] [address] [place] [id number] 16 Aug, 2017 Essential hypertension I10 ; Right renal mass N28.89 ; Chronic gastric ulcer, unspecified whether gastric ulcer hemorrhage or perforation present K25.7 ; Spondylosis of cervical region without myelopathy or radiculopathy M47.812 ; Retrolisthesis of vertebrae M43.10 and Hospital discharge follow-up Z09 [facility] [address] [facility] [id number] [address] [place] [phone] 14 Aug, 2017 [facility] [address] [facility] [id number] [address] [place] [phone] Aug, [facility] [address] [facility] [id number] [address] [place] [phone] Aug, [facility] [address] [facility] [id number] [address] [place] [phone] Aug, Pain syndrome, chronic G89.4 ; Lumbago with sciatica, right side M54.41 ; Lumbago with sciatica, left side M54.42 ; Other chronic pain G89.29 ; Cervicalgia M54.2 ; Controlled substance agreement signed Z79.899 and Essential hypertension I10 [facility] [address] [facility] [id number] [address] [place] [phone] Aug, [facility] [address] [facility] [id number] [address] [place] [phone] Jul, Encounter to establish care Z76.89 ; [...] hrs 1 tablet as n eeded 6h Jun, 28 days Active RESULTS No Results PROCEDURES [...] polyp removal/colonoscopy Hospitalization History heart attack [phone] 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 Hospitalization History left kidney removal 06/2018
--- OUTSIDE RECORDS SUMMARY | 2020-01-21 19:05 | XMS REPORT ---
Author Author Amy SNELL Organization [facility] Address [address] [place] [address] Care Team Providers Care Entry Analyst Name Role Phone KING ROSA Unavailable PROBLEMS Type Condition ICD9-CM Code [id number] Code Onset Dates Condition S tatus SNOMED Code Problem Cervical stenosis of spinal canal M48.02 Active 00669997 Problem GERD without esophagitis K21.9 Activ e 047191679 Problem Left kidney mass N28.89 Active 309 962159 Problem 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 3 Active 831251959 Problem Chronic esophagogastric ulcer K25.7 Active 17451570 Problem Metabolic disorder, unspecified E88.9 Active 448509925 Problem Renal cell carcinoma of left kidney C64.2 Active 931282953 Problem Seasonal allergic rhinitis due to pollen J30.1 Active 49387557 Problem S/p nephrectomy Z90.5 Active 1616 23758 Problem Osteoarthritis of spine with radiculopathy, cervical regio n M47.22 Active 650677446 Problem Lumbago with sciatica, right side M54.41 Active [id number] Problem Lumbago with sciatica, left side M54.42 Active 654882395 Problem Type 2 diabetes mellitus wit hout complication, without long-term current use of insulin E11.9 Active 404121669 Problem Type 2 diabetes mellitus with other specified complication E11.69 Active 14218837871444 Problem Hyperlipidemia, unspecified E78.5 Ac tive 28916884 Problem Other spondylosis with myelopathy, cervical region M47.12 Active 12031237 Problem Other spondylosis with radiculopathy, cervical region M47.22 Active 826035255 Problem Right renal mass N28.89 Active 309 504611 Problem Retrolisthesis of vertebrae M43.10 Ac tive 315154756 Problem Essential hypertension I10 Active 54888933 Problem Pain syndrome, chronic G89.4 Active 650959221 Problem Other obesity due to excess calories E66.09 Active 531737697 Problem Major depressive disorder, recurrent episode, moderate F33.1 Active 279574279 Problem Pulmonary nodule R91.1 Active 427 678818 Problem Body mass index (BMI) of 32.0-32.9 in adult Z68.32 Active 615492667 ALLERGIES No Information ENCOUNTERS Encounter Location Date Diagnosis [place] [facility] [id number] [address] [place] [address] Jul, Other spondylosis with radic ulopathy, cervical region M47.22 [place] [address] [id number] [address] [place] [address] Jul, Other spondylosis with radic ulopathy, cervical region M47.22 [place] [address] [address] [facility] [id number] [address] [place] [address] Jul, Other spondylosis with radic ulopathy, cervical region M47.22 [place] [address] [address] [facility] [id number] [address] [place] [address] Jul, Retrolisthesis of vertebrae M43.10 and Hyperlipidemia, unspecified E78.5 [place] [address] [id number] [address] [place] [address] Jul, [place] [address] [address] [facility] [id number] [address] [place] [address] Jul, Type 2 diabetes mellitus wit h other specified complication E11.69 ; Osteoarthritis of spine with radiculopathy, cervical region M47.22 ; Other spondylosis with radiculopathy, cervical region M47.22 ; S/p nephrectomy Z90.5 and Essential hypertension I10 [place] [address] [id number] [address] [place] [address] Jun, Spondylosis of cervical hakan on without myelopathy or radiculopathy M47.812 [place] [address] [id number] [address] [place] [address] Jun, Renal cell carcinoma of left kidney C64.2 ; S/p nephrectomy Z90.5 ; Type 2 diabetes mellitus with other specified complication E11.69 ; Essential hypertension I10 and Osteoarthritis of spine with radiculopathy, cervical region M47.22 [place] [address] [address] Jun, [facility] [address] [place] [id number] [place] [address] Jun, Essential hypertension I10 [place] [address] [address] May, Spondylosis of cervical hakan on without myelopathy or radiculopathy M47.812 [place] [address] [address] May, [place] [address] [address] May, [facility] [address] [address] May, Skin ulcer of buttock, limit ed to breakdown of skin L98.411 [facility] [address] [address] May, Fever, unspecified fever cau se R50.9 [place] [address] [address] Apr, Acute cystitis with hematuri a N30.01 and Dehydration E86.0 [place] [address] [address] Apr, [facility] [address] [place] [id number] [place] [address] Apr, Dysuria R30.0 and Acute cyst itis without hematuria N30.00 [place] [address] [place] [id number] [place] [address] Apr, [place] [address] [address] Apr, Spondylosis of cervical hakan on without myelopathy or radiculopathy M47.812 [place] [address] [address] Apr, [facility] [address] [place] [address] Apr, Other spondylosis with radic ulopathy, cervical region M47.22 [place] [address] [place] [id number] [address] [place] [address] Apr, [place] [address] [address] Apr, Other spondylosis with radic ulopathy, cervical region M47.22 ; Other spondylosis with myelopathy, cervical region M47.12 and Renal cell carcinoma of left kidney C64.[address] [address] Apr, [place] [address] [address] Apr, Lumbago with sciatica, right side M54.41 and Lumbago with sciatica, left side M54.42 [place] [address] [address] Mar, Type 2 diabetes mellitus wit hout [...] Hyperlipidemia, unspecified E78.5 [facility] [id number] [place] [address] Mar, Acute suppurative otitis med ia of both ears without spontaneous rupture of tympanic membranes, recurrence not specified H66.003 [place] [address] [address] Mar, [place] [address] [address] Mar, Retrolisthesis of vertebrae M43.10 [facility] [place] [address] [address] Mar, Low back pain, unspecified b ack pain laterality, unspecified chronicity, with sciatica presence unspecified M54.5 and Type 2 diabetes mellitus without complication, without long-term current use of insulin E11.9 [place] [address] [address] February, [place] [address] [address] February, Retrolisthesis of vertebrae M43.10 [facility] [place] [address] [address] February, Strain of neck muscle, initi al encounter S16.1XXA [place] [address] [address] February, Type 2 diabetes mellitus wit hout [...] Seasonal allergic rhinitis due to pollen J30.[address] [address] February, Essential hypertension I10 ; Retrolisthesis of vertebrae M43.10 ; Body mass index (BMI) of 32.0-32.9 in adult Z68.32 and Type 2 diabetes mellitus without complication, without long-term current use of insulin E11.9 [facility] [address] [facility] [id number] [address] [place] [address] February, Type 2 diabetes mellitus wit hout complication, without long-term current use of insulin E11.9 [facility] [address] [facility] [id number] [address] [place] [address] Jan, Lumbago with sciatica, right side M54.41 [facility] [address] [facility] [id number] [address] [place] [address] Jan, Sore throat J02.9 [place] [address] [address] [facility] [id number] [address] [place] [address] Dec, [facility] [address] [facility] [id number] [address] [place] [address] Dec, Type 2 diabetes mellitus wit hout complication, without long-term current use of insulin E11.9 [place] [address] [facility] [id number] [address] [place] [address] Dec, [facility] [address] [facility] [id number] [address] [place] [address] Dec, [place] [address] [facility] [id number] [address] [place] [address] Dec, [place] [address] [facility] [id number] [address] [place] [address] Dec, Type 2 diabetes mellitus wit hout [...] pollen J30.1 and GERD without esophagitis K21.9 [facility] [address] [facility] [id number] [address] [place] [address] Dec, [facility] [address] [facility] [id number] [address] [place] [address] Nov, [facility] [address] [id number] [address] [place] [address] Nov, [place] [address] [facility] [id number] [address] [place] [address] Nov, [place] [address] [facility] [id number] [address] [place] [address] Nov, [place] [address] [facility] [id number] [address] [place] [address] Oct, [place] [address] [facility] [id number] [address] [place] [address] Oct, [place] [address] [place] [id number] [address] [place] [address] Oct, [place] [address] [facility] [id number] [address] [place] [address] Oct, Well woman exam with routine gynecological exam Z01.419 ; Screen for STD (sexually transmitted disease) Z11.3 ; Screening breast examination Z12.31 ; Type 2 diabetes mellitus without complication, without long-term current use of insulin E11.9 ; Other obesity due to excess calories E66.09 and Body mass index (BMI) of 32.0-32.9 in adult Z68.32 [facility] [address] [place] [id number] [address] [place] [address] Oct, Ganglion of left wrist M67.4 [address] [place] [address] [place] [id number] [place] [address] Oct, [facility] [address] [facility] [id number] [address] [place] [address] Oct, [facility] [address] [facility] [id number] [address] [place] [address] Oct, Ganglion cyst M67.40 [facility] [address] [facility] [id number] [address] [place] [address] Oct, [facility] [address] [facility] [id number] [address] [place] [address] Sep, [facility] [address] [facility] [id number] [address] [place] [address] Sep, Major depressive disorder, r ecurrent episode, moderate F33.1 [facility] [address] [facility] [id number] [address] [place] [address] Sep, [facility] [address] [facility] [id number] [address] [place] [address] Sep, Right renal mass N28.89 [facility] [address] [facility] [id number] [address] [place] [address] Sep, [facility] [address] [facility] [id number] [address] [place] [address] Sep, [facility] [address] [facility] [id number] [address] [place] [address] Sep, Right renal mass N28.89 [facility] [address] [facility] [id number] [address] [place] [address] Sep, [facility] [address] [facility] [id number] [address] [place] [address] Sep, [facility] [address] [facility] [id number] [address] [place] [address] Sep, [facility] [address] [facility] [id number] [address] [place] [address] Sep, [facility] [address] [place] [id number] [address] [place] [address] Sep, [facility] [address] [address] Sep, [facility] [address] [place] [id number] [place] [address] Sep, Pulmonary nodule R91.1 [place] [address] [address] Aug, [place] [address] [address] Aug, Right renal mass N28.89 and Pulmonary nodule R91.1 [place] [address] [address] Aug, Essential hypertension I10 ; Right renal mass N28.89 ; Chronic gastric ulcer, unspecified whether gastric ulcer hemorrhage or perforation present K25.7 ; Spondylosis of cervical region without myelopathy or radiculopathy M47.812 ; Retrolisthesis of vertebrae M43.10 and Hospital discharge follow-up Z09 [place] [address] [address] 14 Aug, 2017 [place] [address] [address] 09 Aug, 2017 [place] [address] [address] Aug, [place] [address] [address] Aug, Pain syndrome, chronic G89.4 ; Lumbago with sciatica, right side M54.41 ; Lumbago with sciatica, left side M54.42 ; Other chronic pain G89.29 ; Cervicalgia M54.2 ; Controlled substance agreement signed Z79.899 and Essential hypertension I10 [place] [address] [address] Aug, [facility] [address] [facility] [id number] [address] [place] [address] Jul, Encounter to establish care Z76.89 ; [...] HISTORY Never Assessed REASON FOR VISIT Lab (walk-in) PLAN OF CARE Activity Details Pending Test PDM - 09 PANEL (PROFILE 1) VITAL SIGNS MEDICATIONS Unknown Medications RESULTS No Results PROCEDURES Procedure Date Ordered Result Body Site LAB NOT BILLED BY [facility] Aug 11, 2018 INSTRUCTIONS MEDICATIONS ADMINISTERED No Known Medications [...] removed 07/02/2018 Hospitalization History heart attack x3 [phone] 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 Hospitalization History left kidney removal 06/2018
--- OUTSIDE RECORDS SUMMARY | 2020-01-21 19:06 | XMS REPORT ---
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 3 Active 991930533 Problem Seasonal allergic rhinitis due to pollen J30.1 Active 41537317 Problem Metabolic disorder, unspecified E88.9 Active 623596946 Problem Skin ulcer of buttock, limited to breakdown of skin L98.411 Active 51659000 Problem Lumbago with sciatica, right side M54.41 Active [id number] Problem Other spondylosis with myelopathy, cervical region M47.12 Active 78722499 Problem Lumbago with sciatica, left side M54.42 Active 683916780 Problem Type 2 diabetes mellitus wit hout complication, without long-term current use of insulin E11.9 Active 960514184 Problem Hyperlipidemia, unspecified E78.5 Ac tive 36184286 Problem Renal cell carcinoma of left kidney C64.2 Active 251810218 Problem Other spondylosis with radiculopathy, cervical region M47.22 Active 989607236 Problem Type 2 diabetes mellitus with other specified complication E11.69 Active 83894564802696 Problem Right renal mass N28.89 Active 309 783397 Problem Retrolisthesis of vertebrae M43.10 Ac tive 681469894 Problem Essential hypertension I10 Active 57579916 Problem Pain syndrome, chronic G89.4 Active 478172621 Problem Body mass index (BMI) of 32.0-32.9 in adult Z68.32 Active 081865338 Problem Other obesity due to excess calories E66.09 Active 320942482 Problem Left kidney mass N28.89 Active 309 073907 Problem Spondylosis of cervical region without myelopath y or radiculopathy M47.812 Active 204970147 Problem Major depressive disorder, recurrent episode, moderate F33.1 Active 940243617 Problem Chronic esophagogastric ulcer K25.7 Active 06283190 Problem Pulmonary nodule R91.1 Active 427 947584 Problem GERD without esophagitis K21.9 Activ e 226416711 ALLERGIES Substance Reaction Event Type Date Status Ketorolac Tromethamine Unknown Drug Allergy Apr, Activ e Hydrocodone-Acetaminophen anaphylaxis Drug Allergy Apr, Ac tive Feldene cintron's palsy Drug Allergy Apr, Active Doxycycline Monohydrate anaphylaxis Drug Allergy Apr, Acti ve ENCOUNTERS Encounter Location Date Diagnosis [place] [address] [address] Jun, [place] [address] [address] May, Spondylosis of cervical hakan on without myelopathy or radiculopathy M47.812 [place] [address] [address] May, [place] [address] [address] May, [facility] [place] [address] [address] May, Skin ulcer of buttock, limit ed to breakdown of skin L98.411 [facility] [place] [address] [address] May, Fever, unspecified fever cau se R50.9 [place] [address] [address] Apr, Acute cystitis with hematuri a N30.01 and Dehydration E86.0 [place] [address] [address] Apr, [facility] [address] [address] Apr, Dysuria R30.0 and Acute cyst itis without hematuria N30.00 [facility] [address] [id number] [address] [place] [address] Apr, [facility] [address] [id number] [address] [place] [address] Apr, Spondylosis of cervical hakan on without myelopathy or radiculopathy M47.812 [facility] [address] [id number] [address] [place] [address] Apr, [facility] [address] [id number] [address] [place] [address] Apr, Other spondylosis with radic ulopathy, cervical region M47.22 [facility] [address] [id number] [address] [place] [address] Apr, [facility] [address] [id number] [address] [place] [address] Apr, Other spondylosis with radic ulopathy, cervical region M47.22 ; Other spondylosis with myelopathy, cervical region M47.12 and Renal cell carcinoma of left kidney C64.2 [facility] [address] [id number] [address] [place] [address] Apr, [facility] [address] [id number] [address] [place] [address] Apr, Lumbago with sciatica, right side M54.41 and Lumbago with sciatica, left side M54.42 [facility] [address] [id number] [address] [place] [address] Mar, Type 2 diabetes mellitus wit hout [...] specified complication E11.69 and Hyperlipidemia, unspecified E78.5 [facility] [place] [address] [address] Mar, Acute suppurative otitis med ia of both ears without spontaneous rupture of tympanic membranes, recurrence not specified H66.003 [place] [address] [address] Mar, [place] [address] [address] Mar, Retrolisthesis of vertebrae M43.10 [facility] [place] [address] [address] Mar, Low back pain, unspecified b ack pain laterality, unspecified chronicity, with sciatica presence unspecified M54.5 and Type 2 diabetes mellitus without complication, without long-term current use of insulin E11.9 [place] [address] [address] February, [address] [address] February, Retrolisthesis of vertebrae M43.10 [facility] [place] [address] [address] February, Strain of neck muscle, initi al encounter S16.1XXA [place] [address] [address] February, Type 2 diabetes mellitus wit hout [...] Seasonal allergic rhinitis due to pollen J30.1 [facility] [address] [facility] [id number] [address] [place] [address] February, Essential hypertension I10 ; Retrolisthesis of vertebrae M43.10 ; Body mass index (BMI) of 32.0-32.9 in adult Z68.32 and Type 2 diabetes mellitus without complication, without long-term current use of insulin E11.9 [facility] [address] [facility] [id number] [address] [place] [address] February, Type 2 diabetes mellitus wit hout complication, without long-term current use of insulin E11.9 [place] [address] [facility] [id number] [address] [place] [address] Jan, Lumbago with sciatica, right side M54.41 [facility] [address] [facility] [id number] [address] [place] [address] Jan, Sore throat J02.9 [facility] [address] [facility] [id number] [address] [place] [address] Dec, [facility] [address] [facility] [id number] [address] [place] [address] Dec, Type 2 diabetes mellitus wit hout complication, without long-term current use of insulin E11.9 [place] [address] [facility] [id number] [address] [place] [address] Dec, [facility] [address] [facility] [id number] [address] [place] [address] Dec, [facility] [address] [facility] [id number] [address] [place] [address] Dec, [facility] [address] [facility] [id number] [address] [place] [address] Dec, Type 2 diabetes mellitus wit hout [...] K21.9 [facility] [address] [id number] [address] [place] [address] Dec, [facility] [address] [id number] [address] [place] [address] Nov, [facility] [address] [id number] [address] [place] [address] Nov, [facility] [address] [id number] [address] [place] [address] Nov, [facility] [address] [id number] [address] [place] [address] Nov, [facility] [address] [id number] [address] [place] [address] Oct, [facility] [address] [id number] [address] [place] [address] Oct, [facility] [address] [id number] [address] [place] [address] 16 Oct, 2017 [facility] [address] [id number] [address] [place] [address] 11 Oct, 2017 Well woman exam with routine gynecological exam Z01.419 ; Screen for STD (sexually transmitted disease) Z11.3 ; Screening breast examination Z12.31 ; Type 2 diabetes mellitus without complication, without long-term current use of insulin E11.9 ; Other obesity due to excess calories E66.09 and Body mass index (BMI) of 32.0-32.9 in adult Z68.32 [facility] [address] [id number] [address] [place] [address] Oct, Ganglion of left wrist M67.4 32 [facility] [address] [id number] [address] [place] [address] Oct, [facility] [address] [facility] [id number] [address] [place] [address] Oct, [facility] [address] [id number] [address] [place] [address] Oct, Ganglion cyst M67.40 [facility] [address] [id number] [address] [place] [address] Oct, [facility] [address] [facility] [id number] [address] [place] [address] Sep, [facility] [address] [facility] [id number] [address] [place] [address] Sep, Major depressive disorder, r ecurrent episode, moderate F33.1 [facility] [address] [id number] [address] [place] [address] Sep, [facility] [address] [facility] [id number] [address] [place] [address] Sep, Right renal mass N28.89 [facility] [address] [facility] [id number] [address] [place] [address] Sep, [facility] [address] [facility] [id number] [address] [place] [address] Sep, [facility] [address] [facility] [id number] [address] [place] [address] Sep, Right renal mass N28.89 [facility] [address] [facility] [id number] [address] [place] [address] Sep, [facility] [address] [facility] [id number] [address] [place] [address] Sep, [facility] [address] [facility] [id number] [address] [place] [address] Sep, [facility] [address] [facility] [id number] [address] [place] [address] Sep, [facility] [address] [facility] [id number] [address] [place] [address] Sep, [facility] [address] [place] [id number] [address] [place] [address] Sep, [facility] [address] [facility] [id number] [address] [place] [address] Sep, Pulmonary nodule R91.1 [facility] [address] [place] [id number] [address] [place] [address] Aug, [facility] [address] [place] [id number] [address] [place] [address] Aug, Right renal mass N28.89 and Pulmonary nodule R91.1 [facility] [address] [place] [id number] [address] [place] [address] Aug, Essential hypertension I10 ; Right renal mass N28.89 ; Chronic gastric ulcer, unspecified whether gastric ulcer hemorrhage or perforation present K25.7 ; Spondylosis of cervical region without myelopathy or radiculopathy M47.812 ; Retrolisthesis of vertebrae M43.10 and Hospital discharge follow-up Z09 [place] [address] [place] [id number] [address] [place] [address] Aug, [facility] [address] [place] [id number] [address] [place] [address] Aug, [facility] [address] [place] [id number] [address] [place] [address] Aug, [facility] [address] [place] [id number] [address] [place] [address] Aug, Pain syndrome, chronic G89.4 ; Lumbago with sciatica, right side M54.41 ; Lumbago with sciatica, left side M54.42 ; Other chronic pain G89.29 ; Cervicalgia M54.2 ; Controlled substance agreement signed Z79.899 and Essential hypertension I10 [facility] [address] [facility] [id number] [address] [place] [address] Aug, [facility] [address] [facility] [id number] [address] [place] [address] Jul, Encounter to establish care Z76.89 ; [...] SOCIAL HISTORY Never Assessed REASON FOR VISIT uti, bladder spasm, lower back pain, blood in [facility] Activity Details Follow Up 3 Months, prn Reason: Future/Pending Procedure IV INFUSION VITAL SIGNS Height 68 in 2018-05-16 Weight 212.6 lbs 2018-05-16 Temperature 98.9 degrees Fahrenheit 2018-05-16 Heart Rate 66 bpm 2018-05-16 Respiratory Rate 20 2018-05-16 BMI 32.32 kg/m2 2018-05-16 Blood pressure systolic 132 mmHg 2018-05-16 Blood pressure diastolic 80 mmHg 2018-05-16 MEDICATIONS Medication Instructions Dosage Frequency Start Date End Date Duration S tatus Onglyza 5 mg Orally Once a day 1 tablet 24h 30 Active Aspirin 81 MG Orally Once a day 1 tablet 24h Active Pyridium 200 MG Orally Three times a day 1 tablet after meals 8h 2 day(s) Active Atorvastatin Calcium 20 mg Orally Once a day 1 tablet 24h Dec, 18 Active Accu-Chek Soft Touch Device - as directed 8h February, Active Lipitor 10 MG TAKE ONE TABLET BY MOUTH ONCE DAILY 30 Active Oxycodone-Acetaminophen 7.5-325 MG Orally every 6 hrs 1 tablet as n eeded 6h Apr, May, 28 days Active Fluticasone Propionate 50 MCG/ACT Nasally Once a day 1 spray in each nostril 24h Dec, Active Accu-Chek Soft Touch Lancets - as directed 8h February, 30 days Active Sucralfate 1 GM Orally 4 times a day 1 tablet 6h Active Pioglitazone HCl-Metformin HCl 15-500 MG TAKE ONE TABLET BY MOUTH ONCE DAILY WITH A MEAL 30 Active PredniSONE 20 mg Orally Once a day 1 tablet 24h Apr, May, 21 days Active Macrobid 100 MG Orally every 12 hrs 1 capsule with food 12h 5 days Active Metoprolol Tartrate 100 MG TAKE ONE TABLET BY MOUTH TWICE DAILY WITH FOOD Active Dexilant 60 mg Orally Once a day 1 capsule 24h 16 Aug, 2017 Active Gabapentin 300 MG Orally Once a day 1 capsule before bedtime 24h 30 Active Sertraline HCl 25 MG TAKE ONE TABLET BY MOUTH ONCE DAILY Active Centrum Silver 50+Women - Active Blood Glucose Test Strip - In Vitro 3 times a day as directed 8h February, Active Lisinopril 20 MG TAKE ONE TABLET BY MOUTH TWICE DAILY Active Tizanidine HCl 4 MG Orally Three times a day 1 capsule as needed 8h Active RESULTS No Results PROCEDURES Procedure Date Ordered Result [facility] May 16, 2018 URINALYSIS, AUTO, W/O SCOPE May 16, 2018 GLUCOSE BLOOD TEST May 16, 2018 HYDRATION IV INFUSION, INIT May 16, 2018 INSTRUCTIONS MEDICATIONS ADMINISTERED No Known Medications [...] polyp removal/colonoscopy Hospitalization History heart attack [id number] 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
--- OUTSIDE RECORDS SUMMARY | 2020-01-21 19:06 | XMS REPORT ---
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 3 Active 347322589 Problem Seasonal allergic rhinitis due to pollen J30.1 Active 04412242 Problem Metabolic disorder, unspecified E88.9 Active 957436139 Problem Skin ulcer of buttock, limited to breakdown of skin L98.411 Active 56997552 Problem Lumbago with sciatica, right side M54.41 Active 570052267069097 Problem Other spondylosis with myelopathy, cervical region M47.12 Active 57551166 Problem Lumbago with sciatica, left side M54.42 Active 998655636 Problem Type 2 diabetes mellitus wit hout complication, without long-term current use of insulin E11.9 Active 286731566 Problem Hyperlipidemia, unspecified E78.5 Ac tive 35575444 Problem Renal cell carcinoma of left kidney C64.2 Active 179779143 Problem Other spondylosis with radiculopathy, cervical region M47.22 Active 028714103 Problem Type 2 diabetes mellitus with other specified complication E11.69 Active 36628078617605 Problem Right renal mass N28.89 Active 309 313312 Problem Retrolisthesis of vertebrae M43.10 Ac tive 931380985 Problem Essential hypertension I10 Active 68330128 Problem Pain syndrome, chronic G89.4 Active 195448593 Problem Body mass index (BMI) of 32.0-32.9 in adult Z68.32 Active 807732703 Problem Other obesity due to excess calories E66.09 Active 253740378 Problem Left kidney mass N28.89 Active 309 563426 Problem Spondylosis of cervical region without myelopath y or radiculopathy M47.812 Active 374307322 Problem Major depressive disorder, recurrent episode, moderate F33.1 Active 397149398 Problem Chronic esophagogastric ulcer K25.7 Active 68754548 Problem Pulmonary nodule R91.1 Active 427 083471 Problem GERD without esophagitis K21.9 Activ e 479328925 ALLERGIES No Information ENCOUNTERS Encounter Location Date Diagnosis [facility] [address] [address] Jun, Essential hypertension I10 [place] [address] [address] May, Spondylosis of cervical hakan on without myelopathy or radiculopathy M47.812 [place] [address] [address] May, [place] [address] [address] May, [facility] [address] [address] May, Skin ulcer of buttock, limit ed to breakdown of skin L98.411 [facility] [address] [address] May, Fever, unspecified fever cau se R50.9 [place] [address] [address] Apr, Acute cystitis with hematuri a N30.01 and Dehydration E86.0 [facility] [address] [address] Apr, [facility] [address] [address] Apr, Dysuria R30.0 and Acute cyst itis without hematuria N30.00 [place] [address] [address] Apr, [facility] [address] [address] Apr, Spondylosis of cervical hakan on without myelopathy or radiculopathy M47.812 [place] [address] [address] [facility] [id number] [address] [place] [address] Apr, [facility] [place] [id number] [facility] [id number] [address] [place] [address] Apr, Other spondylosis with radic ulopathy, cervical region M47.22 [place] [address] [address] [facility] [id number] [address] [place] [address] Apr, [place] [address] [address] [facility] [id number] [address] [place] [address] Apr, Other spondylosis with radic ulopathy, cervical region M47.22 ; Other spondylosis with myelopathy, cervical region M47.12 and Renal cell carcinoma of left kidney C64.[address] [place] [address] Apr, [place] [address] [address] [place] [id number] [address] [place] [address] Apr, Lumbago with sciatica, right side M54.41 and Lumbago with sciatica, left side M54.42 [place] [address] [address] [place] [id number] [address] [place] [address] Mar, Type 2 diabetes mellitus wit hout [...] specified complication E11.69 and Hyperlipidemia, unspecified E78.5 [facility] [place] [address] [address] Mar, Acute suppurative otitis med ia of both ears without spontaneous rupture of tympanic membranes, recurrence not specified H66.003 [place] [address] [address] Mar, [place] [address] [address] Mar, Retrolisthesis of vertebrae M43.10 [facility] [place] [address] [address] Mar, Low back pain, unspecified b ack pain laterality, unspecified chronicity, with sciatica presence unspecified M54.5 and Type 2 diabetes mellitus without complication, without long-term current use of insulin E11.[address] [address] February, [address] [address] February, Retrolisthesis of vertebrae M43.10 [facility] [address] [address] February, Strain of neck muscle, initi al encounter S16.1XXA [address] [address] February, Type 2 diabetes mellitus wit hout [...] Seasonal allergic rhinitis due to pollen J30.1 [place] [address] [place] [address] February, Essential hypertension I10 ; Retrolisthesis of vertebrae M43.10 ; Body mass index (BMI) of 32.0-32.9 in adult Z68.32 and Type 2 diabetes mellitus without complication, without long-term current use of insulin E11.9 [facility] [address] [facility] [id number] [address] [place] [address] February, Type 2 diabetes mellitus wit hout complication, without long-term current use of insulin E11.9 [facility] [address] [facility] [id number] [address] [place] [address] Jan, Lumbago with sciatica, right side M54.41 [facility] [address] [facility] [id number] [address] [place] [address] Jan, Sore throat J02.9 [facility] [address] [facility] [id number] [address] [place] [address] Dec, [facility] [address] [facility] [id number] [address] [place] [address] Dec, Type 2 diabetes mellitus wit hout complication, without long-term current use of insulin E11.9 [place] [address] [address] [facility] [id number] [address] [place] [address] Dec, [facility] [address] [facility] [id number] [address] [place] [address] 14 Dec, 2017 [place] [address] [address] [facility] [id number] [address] [place] [address] Dec, [facility] [address] [facility] [id number] [address] [place] [address] Dec, Type 2 diabetes mellitus wit hout [...] esophagitis K21.9 [facility] [address] [facility] [id number] [address] [place] [address] Dec, [facility] [address] [id number] [address] [place] [address] Nov, [facility] [address] [id number] [address] [place] [address] Nov, [place] [address] [id number] [address] [place] [address] Nov, [facility] [address] [id number] [address] [place] [address] Nov, [facility] [address] [id number] [address] [place] [address] Oct, [facility] [address] [id number] [address] [place] [address] Oct, [place] [address] [address] [facility] [id number] [address] [place] [address] Oct, [place] [address] [facility] [id number] [address] [place] [address] Oct, Well woman exam with routine gynecological exam Z01.419 ; Screen for STD (sexually transmitted disease) Z11.3 ; Screening breast examination Z12.31 ; Type 2 diabetes mellitus without complication, without long-term current use of insulin E11.9 ; Other obesity due to excess calories E66.09 and Body mass index (BMI) of 32.0-32.9 in adult Z68.32 [place] [address] [facility] [id number] [address] [place] [address] Oct, Ganglion of left wrist M67.4 32 [place] [address] [address] [facility] [id number] [address] [place] [address] Oct, [facility] [address] [facility] [id number] [address] [place] [address] Oct, [facility] [address] [facility] [id number] [address] [place] [address] Oct, Ganglion cyst M67.40 [facility] [address] [facility] [id number] [address] [place] [address] Oct, [facility] [address] [facility] [id number] [address] [place] [address] Sep, [facility] [address] [facility] [id number] [address] [place] [address] Sep, Major depressive disorder, r ecurrent episode, moderate F33.1 [facility] [address] [facility] [id number] [address] [place] [address] Sep, [facility] [address] [facility] [id number] [address] [place] [address] Sep, Right renal mass N28.89 [facility] [address] [facility] [id number] [address] [place] [address] Sep, [facility] [address] [facility] [id number] [address] [place] [address] Sep, [facility] [address] [facility] [id number] [address] [place] [address] Sep, Right renal mass N28.89 [facility] [address] [facility] [id number] [address] [place] [address] Sep, [facility] [address] [facility] [id number] [address] [place] [address] Sep, [facility] [address] [facility] [id number] [address] [place] [address] Sep, [facility] [address] [facility] [id number] [address] [place] [address] Sep, [place] [address] [address] [place] [id number] [address] [place] [address] Sep, [facility] [address] [address] Sep, [facility] [address] [address] Sep, Pulmonary nodule R91.1 [place] [address] [address] Aug, [place] [address] [address] Aug, Right renal mass N28.89 and Pulmonary nodule R91.1 [place] [address] [address] 16 Aug, 2017 Essential hypertension I10 ; Right renal mass N28.89 ; Chronic gastric ulcer, unspecified whether gastric ulcer hemorrhage or perforation present K25.7 ; Spondylosis of cervical region without myelopathy or radiculopathy M47.812 ; Retrolisthesis of vertebrae M43.10 and Hospital discharge follow-up Z09 [place] [address] [address] 14 Aug, 2017 [place] [address] [address] 09 Aug, 2017 [place] [address] [address] Aug, [place] [address] [address] Aug, Pain syndrome, chronic G89.4 ; Lumbago with sciatica, right side M54.41 ; Lumbago with sciatica, left side M54.42 ; Other chronic pain G89.29 ; Cervicalgia M54.2 ; Controlled substance agreement signed Z79.899 and Essential hypertension I10 [place] [address] [address] Aug, [facility] [address] [facility] [id number] [address] [place] [address] Jul, Encounter to establish care Z76.89 ; [...] SOCIAL HISTORY Never Assessed REASON FOR VISIT Physical Therapy PLAN OF CARE VITAL SIGNS MEDICATIONS Unknown [...] polyp removal/colonoscopy Hospitalization History heart attack x3 [phone] 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
--- OUTSIDE RECORDS SUMMARY | 2020-01-21 19:06 | XMS REPORT ---
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 Active 351931972 Problem Seasonal allergic rhinitis due to pollen J30.1 Active 29526157 Problem Metabolic disorder, unspecified E88.9 Active 413330083 Problem Skin ulcer of buttock, limited to breakdown of skin L98.411 Active 54936170 Problem Lumbago with sciatica, right side M54.41 Active 911081377768592 Problem Other spondylosis with myelopathy, cervical region M47.12 Active 91518430 Problem Lumbago with sciatica, left side M54.42 Active 746186887 Problem Type 2 diabetes mellitus wit hout complication, without long-term current use of insulin E11.9 Active 890474398 Problem Hyperlipidemia, unspecified E78.5 Ac tive 45218059 Problem Renal cell carcinoma of left kidney C64.2 Active 617616157 Problem Other spondylosis with radiculopathy, cervical region M47.22 Active 671781778 Problem Type 2 diabetes mellitus with other specified complication E11.69 Active 32204855152435 Problem Right renal mass N28.89 Active 309 336705 Problem Retrolisthesis of vertebrae M43.10 Ac tive 231287397 Problem Essential hypertension I10 Active 85880540 Problem Pain syndrome, chronic G89.4 Active 489862427 Problem Body mass index (BMI) of 32.0-32.9 in adult Z68.32 Active 855718680 Problem Other obesity due to excess calories E66.09 Active 460259396 Problem Left kidney mass N28.89 Active 309 490977 Problem Spondylosis of cervical region without myelopath y or radiculopathy M47.812 Active 756281335 Problem Major depressive disorder, recurrent episode, moderate F33.1 Active 396662819 Problem Chronic esophagogastric ulcer K25.7 Active 21525277 Problem Pulmonary nodule R91.1 Active 427 503817 Problem GERD without esophagitis K21.9 Activ e 005871279 ALLERGIES Substance Reaction Event Type Date Status Ketorolac Tromethamine Unknown Drug Allergy May, Activ e Hydrocodone-Acetaminophen anaphylaxis Drug Allergy May, Ac tive Feldene cintron's palsy Drug Allergy May, Active Doxycycline Monohydrate anaphylaxis Drug Allergy May, Acti ve ENCOUNTERS Encounter Location Date Diagnosis [place] [address] [address] Jun, Essential hypertension I10 [place] [address] [address] May, Spondylosis of cervical hakan on without myelopathy or radiculopathy M47.812 [place] [address] [address] May, [facility] [address] [address] May, [facility] [address] [address] May, Skin ulcer of buttock, limit ed to breakdown of skin L98.411 [facility] [address] [place] [id number] [place] [address] May, Fever, unspecified fever cau se R50.9 [facility] [address] [place] [id number] [place] [address] Apr, Acute cystitis with hematuri a N30.01 and Dehydration E86.0 [facility] [address] [place] [id number] [place] [address] Apr, [facility] [address] [address] Apr, Dysuria R30.0 and Acute cyst itis without hematuria N30.00 [facility] [address] [id number] [address] [place] [address] Apr, [facility] [address] [facility] [id number] [address] [place] [address] Apr, Spondylosis of cervical hakan on without myelopathy or radiculopathy M47.812 [facility] [address] [id number] [address] [place] [address] Apr, [facility] [address] [id number] [address] [place] [id number] Apr, Other spondylosis with radic ulopathy, cervical region M47.22 [facility] [address] [id number] [address] [place] [id number] Apr, [facility] [address] [facility] [id number] [address] [place] [id number] Apr, Other spondylosis with radic ulopathy, cervical region M47.22 ; Other spondylosis with myelopathy, cervical region M47.12 and Renal cell carcinoma of left kidney C64.2 [place] [address] [id number] [address] [place] [address] Apr, [facility] [address] [id number] [address] [place] [address] Apr, Lumbago with sciatica, right side M54.41 and Lumbago with sciatica, left side M54.42 [place] [address] [id number] [address] [place] [address] Mar, Type 2 diabetes mellitus wit hout [...] specified complication E11.69 and Hyperlipidemia, unspecified E78.5 [facility] [place] [address] [address] Mar, Acute suppurative otitis med ia of both ears without spontaneous rupture of tympanic membranes, recurrence not specified H66.003 [place] [address] [address] Mar, [place] [address] [address] Mar, Retrolisthesis of vertebrae M43.10 [place] [address] [address] Mar, Low back pain, unspecified b ack pain laterality, unspecified chronicity, with sciatica presence unspecified M54.5 and Type 2 diabetes mellitus without complication, without long-term current use of insulin E11.9 [place] [address] [address] February, [place] [address] [address] February, Retrolisthesis of vertebrae M43.[address] [address] February, Strain of neck muscle, initi al encounter S16.1XXA [place] [address] [address] February, Type 2 diabetes mellitus wit hout [...] Seasonal allergic rhinitis due to pollen J30.1 [facility] [address] [id number] [address] [place] [address] February, Essential hypertension I10 ; Retrolisthesis of vertebrae M43.10 ; Body mass index (BMI) of 32.0-32.9 in adult Z68.32 and Type 2 diabetes mellitus without complication, without long-term current use of insulin E11.9 [place] [address] [id number] [address] [place] [address] February, Type 2 diabetes mellitus wit hout complication, without long-term current use of insulin E11.9 [place] [address] [facility] [id number] [address] [place] [address] Jan, Lumbago with sciatica, right side M54.41 [facility] [address] [id number] [address] [place] [id number] Jan, Sore throat J02.9 [facility] [address] [id number] [address] [place] [address] Dec, [facility] [address] [id number] [address] [place] [address] Dec, Type 2 diabetes mellitus wit hout complication, without long-term current use of insulin E11.9 [facility] [address] [id number] [address] [place] [id number] 14 Dec, 2017 [facility] [address] [id number] [address] [place] [id number] 14 Dec, 2017 [facility] [address] [facility] [id number] [address] [place] [address] Dec, [facility] [address] [facility] [id number] [address] [place] [address] Dec, Type 2 diabetes mellitus wit hout [...] pollen J30.1 and GERD without esophagitis K21.9 [facility] [address] [id number] [address] [place] [address] Dec, [facility] [address] [id number] [address] [place] [address] Nov, [facility] [address] [id number] [address] [place] [address] Nov, [facility] [address] [id number] [address] [place] [address] Nov, [facility] [address] [id number] [address] [place] [id number] Nov, [facility] [address] [id number] [address] [place] [address] Oct, [facility] [address] [id number] [address] [place] [id number] Oct, [facility] [address] [id number] [address] [place] [address] 16 Oct, 2017 [facility] [address] [id number] [address] [place] [id number] 11 Oct, 2017 Well woman exam with routine gynecological exam Z01.419 ; Screen for STD (sexually transmitted disease) Z11.3 ; Screening breast examination Z12.31 ; Type 2 diabetes mellitus without complication, without long-term current use of insulin E11.9 ; Other obesity due to excess calories E66.09 and Body mass index (BMI) of 32.0-32.9 in adult Z68.32 [facility] [address] [facility] [id number] [address] [place] [address] Oct, Ganglion of left wrist M67.4 32 [facility] [address] [id number] [address] [place] [id number] Oct, [facility] [address] [facility] [id number] [address] [place] [address] Oct, [facility] [address] [id number] [address] [place] [address] Oct, Ganglion cyst M67.40 [facility] [address] [facility] [id number] [address] [place] [id number] Oct, [facility] [address] [facility] [id number] [address] [place] [id number] Sep, [facility] [address] [facility] [id number] [address] [place] [address] Sep, Major depressive disorder, r ecurrent episode, moderate F33.1 [facility] [address] [facility] [id number] [address] [place] [id number] Sep, [facility] [address] [facility] [id number] [address] [place] [address] Sep, Right renal mass N28.89 [facility] [address] [facility] [id number] [address] [place] [id number] Sep, [facility] [address] [facility] [id number] [address] [place] [id number] Sep, [facility] [address] [facility] [id number] [address] [place] [address] Sep, Right renal mass N28.89 [facility] [address] [facility] [id number] [address] [place] [id number] Sep, [facility] [address] [place] [id number] [address] [place] [id number] Sep, [facility] [address] [facility] [id number] [address] [place] [phone] Sep, [facility] [address] [facility] [id number] [address] [place] [id number] Sep, [facility] [address] [facility] [id number] [address] [place] [address] Sep, [facility] [address] [facility] [id number] [address] [place] [address] Sep, [facility] [address] [facility] [id number] [address] [place] [address] Sep, Pulmonary nodule R91.1 [facility] [address] [facility] [id number] [address] [place] [address] Aug, [facility] [address] [facility] [id number] [address] [place] [address] Aug, Right renal mass N28.89 and Pulmonary nodule R91.1 [facility] [address] [facility] [id number] [address] [place] [address] Aug, Essential hypertension I10 ; Right renal mass N28.89 ; Chronic gastric ulcer, unspecified whether gastric ulcer hemorrhage or perforation present K25.7 ; Spondylosis of cervical region without myelopathy or radiculopathy M47.812 ; Retrolisthesis of vertebrae M43.10 and Hospital discharge follow-up Z09 [facility] [address] [facility] [id number] [address] [place] [address] Aug, [facility] [address] [facility] [id number] [address] [place] [id number] Aug, [facility] [address] [facility] [id number] [address] [place] [id number] Aug, [facility] [address] [facility] [id number] [address] [place] [address] Aug, Pain syndrome, chronic G89.4 ; Lumbago with sciatica, right side M54.41 ; Lumbago with sciatica, left side M54.42 ; Other chronic pain G89.29 ; Cervicalgia M54.2 ; Controlled substance agreement signed Z79.899 and Essential hypertension I10 [facility] [address] [facility] [id number] [address] [place] [id number] Aug, [facility] [address] [facility] [id number] [address] [place] [address] Jul, Encounter to establish care Z76.89 ; [...] SOCIAL HISTORY Never Assessed REASON FOR VISIT unknown-the patient has a sore in her genital region.--BRANDI Myers PLAN OF CARE Activity Details Follow Up prn Reason: VITAL SIGNS Height 68 in 2018-05-26 Weight 209 lbs 2018-05-26 Temperature 97.4 degrees Fahrenheit 2018-05-26 Heart Rate 68 bpm 2018-05-26 Respiratory Rate 20 2018-05-26 BMI 31.77 kg/m2 2018-05-26 Blood pressure systolic 134 mmHg 2018-05-26 Blood pressure diastolic 86 mmHg 2018-05-26 MEDICATIONS Medication Instructions Dosage Frequency Start Date End Date Duration S tatus Tizanidine HCl 4 MG Orally Three times a day 1 capsule as needed 8h Active Centrum Silver 50+Women - Active Pioglitazone HCl-Metformin HCl 15-500 MG TAKE ONE TABLET BY MOUTH ONCE DAILY WITH A MEAL 30 Active Metoprolol Tartrate 100 MG TAKE ONE TABLET BY MOUTH TWICE DAILY WITH FOOD Active Lisinopril 20 MG TAKE ONE TABLET BY MOUTH TWICE DAILY Active Sertraline HCl 25 MG TAKE ONE TABLET BY MOUTH ONCE DAILY Active Blood Glucose Test Strip - In Vitro 3 times a day as directed 8h February, Active Atorvastatin Calcium 20 mg Orally Once a day 1 tablet 24h Dec, 18 Active Oxycodone-Acetaminophen 7.5-325 MG Orally every 6 hrs 1 tablet as n eeded 6h Apr, May, 28 days Active Fluticasone Propionate 50 MCG/ACT Nasally Once a day 1 spray in each nostril 24h Dec, Active Lipitor 10 MG TAKE ONE TABLET BY MOUTH ONCE DAILY 30 Active Gabapentin 300 MG Orally Once a day 1 capsule before bedtime 24h 30 Active Accu-Chek Soft Touch Device - as directed 8h February, Active Cipro 500 MG Orally every 12 hrs 1 tablet 12h May, 13 2017 10 day(s) Active Aspirin 81 MG Orally Once a day 1 tablet 24h Active Sucralfate 1 GM Orally 4 times a day 1 tablet 6h Active Onglyza 5 mg Orally Once a day 1 tablet 24h 30 Active Dexilant 60 mg Orally Once a day 1 capsule 24h Aug, Active Accu-Chek Soft Touch Lancets - as directed 8h February, 30 days Active RESULTS No Results PROCEDURES No [...] polyp removal/colonoscopy Hospitalization History heart attack x3 [id number] 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
--- OUTSIDE RECORDS SUMMARY | 2020-01-21 19:06 | XMS REPORT ---
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 3 Active 660407810 Problem Seasonal allergic rhinitis due to pollen J30.1 Active 74424850 Problem Metabolic disorder, unspecified E88.9 Active 723751141 Problem Skin ulcer of buttock, limited to breakdown of skin L98.411 Active 43976198 Problem Lumbago with sciatica, right side M54.41 Active [id number] Problem Other spondylosis with myelopathy, cervical region M47.12 Active 45022298 Problem Lumbago with sciatica, left side M54.42 Active 869820605 Problem Type 2 diabetes mellitus wit hout complication, without long-term current use of insulin E11.9 Active 987740848 Problem Hyperlipidemia, unspecified E78.5 Ac tive 23535759 Problem Renal cell carcinoma of left kidney C64.2 Active 678020223 Problem Other spondylosis with radiculopathy, cervical region M47.22 Active 979752552 Problem Type 2 diabetes mellitus with other specified complication E11.69 Active 79253235399505 Problem Right renal mass N28.89 Active 309 636301 Problem Retrolisthesis of vertebrae M43.10 Ac tive 913344896 Problem Essential hypertension I10 Active 19752220 Problem Pain syndrome, chronic G89.4 Active 228133616 Problem Body mass index (BMI) of 32.0-32.9 in adult Z68.32 Active 521133326 Problem Other obesity due to excess calories E66.09 Active 078539913 Problem Left kidney mass N28.89 Active 309 107932 Problem Spondylosis of cervical region without myelopath y or radiculopathy M47.812 Active 286288308 Problem Major depressive disorder, recurrent episode, moderate F33.1 Active 834143848 Problem Chronic esophagogastric ulcer K25.7 Active 76185823 Problem Pulmonary nodule R91.1 Active 427 665707 Problem GERD without esophagitis K21.9 Activ e [id number] ALLERGIES No Information ENCOUNTERS Encounter Location Date Diagnosis [facility] [address] [address] Jun, Essential hypertension I10 [place] [address] [address] May, Spondylosis of cervical hakan on without myelopathy or radiculopathy M47.812 [place] [address] [address] May, [place] [address] [address] May, [facility] [address] [address] May, Skin ulcer of buttock, limit ed to breakdown of skin L98.411 [facility] [address] [address] May, Fever, unspecified fever cau se R50.9 [place] [address] [address] Apr, Acute cystitis with hematuri a N30.01 and Dehydration E86.0 [facility] [address] [address] Apr, [facility] [address] [address] Apr, Dysuria R30.0 and Acute cyst itis without hematuria N30.00 [place] [address] [address] Apr, [facility] [address] [address] Apr, Spondylosis of cervical hakan on without myelopathy or radiculopathy M47.812 [place] [address] [address] [facility] [id number] [address] [place] [address] Apr, [facility] [place] [id number] [facility] [id number] [address] [place] [address] Apr, Other spondylosis with radic ulopathy, cervical region M47.22 [place] [address] [address] [facility] [id number] [address] [place] [address] Apr, [place] [address] [address] [facility] [id number] [address] [place] [address] Apr, Other spondylosis with radic ulopathy, cervical region M47.22 ; Other spondylosis with myelopathy, cervical region M47.12 and Renal cell carcinoma of left kidney C64.[id number] [place] [address] Apr, [place] [address] [address] [facility] [id number] [address] [place] [address] Apr, Lumbago with sciatica, right side M54.41 and Lumbago with sciatica, left side M54.42 [place] [address] [address] [place] [id number] [address] [place] [address] Mar, Type 2 diabetes mellitus wit hout [...] complication E11.69 and Hyperlipidemia, unspecified E78.5 [facility] [address] [address] Mar, Acute suppurative otitis med ia of both ears without spontaneous rupture of tympanic membranes, recurrence not specified H66.003 [place] [address] [address] Mar, [place] [address] [address] Mar, Retrolisthesis of vertebrae M43.10 [facility] [place] [address] [address] Mar, Low back pain, unspecified b ack pain laterality, unspecified chronicity, with sciatica presence unspecified M54.5 and Type 2 diabetes mellitus without complication, without long-term current use of insulin E11.[address] [address] February, [place] [address] [address] February, Retrolisthesis of vertebrae M43.10 [facility] [address] [address] February, Strain of neck muscle, initi al encounter S16.1XXA [address] [address] February, Type 2 diabetes mellitus wit hout [...] Seasonal allergic rhinitis due to pollen J30.[address] [place] [address] February, Essential hypertension I10 ; Retrolisthesis of vertebrae M43.10 ; Body mass index (BMI) of 32.0-32.9 in adult Z68.32 and Type 2 diabetes mellitus without complication, without long-term current use of insulin E11.9 [facility] [address] [facility] [id number] [address] [place] [address] February, Type 2 diabetes mellitus wit hout complication, without long-term current use of insulin E11.9 [facility] [address] [facility] [id number] [address] [place] [address] Jan, Lumbago with sciatica, right side M54.41 [facility] [address] [facility] [id number] [address] [place] [address] Jan, Sore throat J02.9 [facility] [address] [facility] [id number] [address] [place] [address] Dec, [facility] [address] [facility] [id number] [address] [place] [address] Dec, Type 2 diabetes mellitus wit hout complication, without long-term current use of insulin E11.9 [place] [address] [address] [facility] [id number] [address] [place] [address] Dec, [facility] [address] [facility] [id number] [address] [place] [address] Dec, [place] [address] [address] [facility] [id number] [address] [place] [address] Dec, [facility] [address] [facility] [id number] [address] [place] [address] Dec, Type 2 diabetes mellitus wit hout [...] pollen J30.1 and GERD without esophagitis K21.9 [facility] [address] [facility] [id number] [address] [place] [address] Dec, [facility] [address] [id number] [address] [place] [address] Nov, [facility] [address] [id number] [address] [place] [address] Nov, [place] [address] [id number] [address] [place] [address] Nov, [facility] [address] [id number] [address] [place] [address] Nov, [facility] [address] [id number] [address] [place] [address] Oct, [facility] [address] [id number] [address] [place] [address] Oct, [facility] [address] [facility] [id number] [address] [place] [address] Oct, [place] [id number] [facility] [id number] [address] [place] [address] Oct, Well woman exam with routine gynecological exam Z01.419 ; Screen for STD (sexually transmitted disease) Z11.3 ; Screening breast examination Z12.31 ; Type 2 diabetes mellitus without complication, without long-term current use of insulin E11.9 ; Other obesity due to excess calories E66.09 and Body mass index (BMI) of 32.0-32.9 in adult Z68.32 [facility] [address] [facility] [id number] [address] [place] [address] Oct, Ganglion of left wrist M67.4 32 [facility] [address] [id number] [address] [place] [address] Oct, [facility] [address] [facility] [id number] [address] [place] [address] Oct, [facility] [address] [facility] [id number] [address] [place] [address] Oct, Ganglion cyst M67.40 [facility] [address] [facility] [id number] [address] [place] [address] Oct, [facility] [address] [facility] [id number] [address] [place] [address] Sep, [facility] [address] [facility] [id number] [address] [place] [address] Sep, Major depressive disorder, r ecurrent episode, moderate F33.1 [facility] [address] [facility] [id number] [address] [place] [address] Sep, [facility] [address] [facility] [id number] [address] [place] [address] Sep, Right renal mass N28.89 [facility] [address] [facility] [id number] [address] [place] [address] Sep, [facility] [address] [facility] [id number] [address] [place] [address] Sep, [facility] [address] [facility] [id number] [address] [place] [address] Sep, Right renal mass N28.89 [facility] [address] [facility] [id number] [address] [place] [address] Sep, [facility] [address] [facility] [id number] [address] [place] [address] Sep, [facility] [address] [facility] [id number] [address] [place] [address] Sep, [facility] [address] [facility] [id number] [address] [place] [address] Sep, [place] [address] [address] [place] [id number] [address] [place] [address] Sep, [place] [address] [address] Sep, [place] [address] [address] [place] [id number] [address] [place] [address] Sep, Pulmonary nodule R91.1 [place] [address] [address] [place] [id number] [place] [address] Aug, [place] [address] [address] [place] [id number] [place] [address] Aug, Right renal mass N28.89 and Pulmonary nodule R91.1 [place] [address] [address] [place] [id number] [place] [address] Aug, Essential hypertension I10 ; Right renal mass N28.89 ; Chronic gastric ulcer, unspecified whether gastric ulcer hemorrhage or perforation present K25.7 ; Spondylosis of cervical region without myelopathy or radiculopathy M47.812 ; Retrolisthesis of vertebrae M43.10 and Hospital discharge follow-up Z09 [place] [address] [address] 14 Aug, 2017 [place] [address] [address] Aug, [place] [address] [address] Aug, [place] [address] [address] Aug, Pain syndrome, chronic G89.4 ; Lumbago with sciatica, right side M54.41 ; Lumbago with sciatica, left side M54.42 ; Other chronic pain G89.29 ; Cervicalgia M54.2 ; Controlled substance agreement signed Z79.899 and Essential hypertension I10 [place] [address] [address] Aug, [facility] [address] [facility] [id number] [address] [place] [address] Jul, Encounter to establish care Z76.89 ; [...] SOCIAL HISTORY Never Assessed REASON FOR VISIT MTM (Medication Therapy Management) PLAN OF CARE VITAL SIGNS MEDICATIONS Unknown [...] polyp removal/colonoscopy Hospitalization History heart attack x3 [id number] 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
--- OUTSIDE RECORDS SUMMARY | 2020-01-21 19:06 | XMS REPORT ---
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 3 Active 441853277 Problem Seasonal allergic rhinitis due to pollen J30.1 Active 19122124 Problem Metabolic disorder, unspecified E88.9 Active 848978558 Problem Skin ulcer of buttock, limited to breakdown of skin L98.411 Active 26503752 Problem Lumbago with sciatica, right side M54.41 Active [id number] Problem Other spondylosis with myelopathy, cervical region M47.12 Active 83539499 Problem Lumbago with sciatica, left side M54.42 Active 353456802 Problem Type 2 diabetes mellitus wit hout complication, without long-term current use of insulin E11.9 Active 076864463 Problem Hyperlipidemia, unspecified E78.5 Ac tive 69209301 Problem Renal cell carcinoma of left kidney C64.2 Active 267959291 Problem Other spondylosis with radiculopathy, cervical region M47.22 Active 738810098 Problem Type 2 diabetes mellitus with other specified complication E11.69 Active 29367457061891 Problem Right renal mass N28.89 Active 309 173105 Problem Retrolisthesis of vertebrae M43.10 Ac tive 270261140 Problem Essential hypertension I10 Active 50874090 Problem Pain syndrome, chronic G89.4 Active 526293284 Problem Body mass index (BMI) of 32.0-32.9 in adult Z68.32 Active 477921145 Problem Other obesity due to excess calories E66.09 Active 821436243 Problem Left kidney mass N28.89 Active 309 013280 Problem Spondylosis of cervical region without myelopath y or radiculopathy M47.812 Active 171685242 Problem Major depressive disorder, recurrent episode, moderate F33.1 Active 522519775 Problem Chronic esophagogastric ulcer K25.7 Active 96162650 Problem Pulmonary nodule R91.1 Active 427 378790 Problem GERD without esophagitis K21.9 Activ e 117590989 ALLERGIES Substance Reaction Event Type Date Status Ketorolac Tromethamine Unknown Drug Allergy May, Activ e Hydrocodone-Acetaminophen anaphylaxis Drug Allergy May, Ac tive Feldene cintron's palsy Drug Allergy May, Active Doxycycline Monohydrate anaphylaxis Drug Allergy May, Acti ve ENCOUNTERS Encounter Location Date Diagnosis [place] [id number] [address] Jun, [place] [address] [address] May, Spondylosis of cervical hakan on without myelopathy or radiculopathy M47.812 [place] [address] [address] May, [place] [address] [address] May, [facility] [address] [address] May, Skin ulcer of buttock, limit ed to breakdown of skin L98.411 [facility] [address] [address] May, Fever, unspecified fever cau se R50.9 [facility] [address] [place] [id number] [address] [place] [address] Apr, Acute cystitis with hematuri a N30.01 and Dehydration E86.0 [facility] [address] [address] Apr, [facility] [address] [address] Apr, Dysuria R30.0 and Acute cyst itis without hematuria N30.00 [facility] [address] [id number] [address] [place] [phone] Apr, [facility] [address] [id number] [address] [place] [address] Apr, Spondylosis of cervical hakan on without myelopathy or radiculopathy M47.812 [facility] [address] [id number] [address] [place] [phone] Apr, [facility] [address] [id number] [address] [place] [phone] Apr, Other spondylosis with radic ulopathy, cervical region M47.22 [facility] [address] [id number] [address] [place] [address] Apr, [facility] [address] [facility] [id number] [address] [place] [address] Apr, Other spondylosis with radic ulopathy, cervical region M47.22 ; Other spondylosis with myelopathy, cervical region M47.12 and Renal cell carcinoma of left kidney C64.2 [facility] [address] [id number] [address] [place] [phone] Apr, [facility] [address] [id number] [address] [place] [phone] Apr, Lumbago with sciatica, right side M54.41 and Lumbago with sciatica, left side M54.42 [facility] [address] [id number] [address] [place] [phone] Mar, Type 2 diabetes mellitus wit hout [...] specified complication E11.69 and Hyperlipidemia, unspecified E78.5 [facility] [place] [address] [address] Mar, Acute suppurative otitis med ia of both ears without spontaneous rupture of tympanic membranes, recurrence not specified H66.003 [place] [address] [address] Mar, [place] [address] [address] Mar, Retrolisthesis of vertebrae M43.10 [facility] [place] [address] [address] Mar, Low back pain, unspecified b ack pain laterality, unspecified chronicity, with sciatica presence unspecified M54.5 and Type 2 diabetes mellitus without complication, without long-term current use of insulin E11.9 [place] [address] [address] February, [place] [address] [address] February, Retrolisthesis of vertebrae M43.10 [facility] [place] [address] [address] February, Strain of neck muscle, initi al encounter S16.1XXA [place] [address] [address] February, Type 2 diabetes mellitus wit hout [...] Seasonal allergic rhinitis due to pollen J30.1 [facility] [address] [facility] [id number] [address] [place] [address] February, Essential hypertension I10 ; Retrolisthesis of vertebrae M43.10 ; Body mass index (BMI) of 32.0-32.9 in adult Z68.32 and Type 2 diabetes mellitus without complication, without long-term current use of insulin E11.9 [facility] [address] [facility] [id number] [address] [place] [address] February, Type 2 diabetes mellitus wit hout complication, without long-term current use of insulin E11.9 [place] [address] [facility] [id number] [address] [place] [address] Jan, Lumbago with sciatica, right side M54.41 [facility] [address] [facility] [id number] [address] [place] [phone] Jan, Sore throat J02.9 [facility] [address] [facility] [id number] [address] [place] [phone] Dec, [facility] [address] [id number] [address] [place] [address] Dec, Type 2 diabetes mellitus wit hout complication, without long-term current use of insulin E11.9 [place] [address] [facility] [id number] [address] [place] [address] Dec, [facility] [address] [id number] [address] [place] [phone] 14 Dec, 2017 [facility] [address] [facility] [id number] [address] [place] [phone] Dec, [facility] [address] [facility] [id number] [address] [place] [phone] Dec, Type 2 diabetes mellitus wit hout [...] esophagitis K21.9 [facility] [address] [id number] [address] [place] [phone] Dec, [facility] [address] [id number] [address] [place] [phone] Nov, [facility] [address] [id number] [address] [place] [phone] Nov, [facility] [address] [id number] [address] [place] [address] Nov, [facility] [address] [id number] [address] [place] [phone] Nov, [facility] [address] [id number] [address] [place] [phone] Oct, [facility] [address] [id number] [address] [place] [phone] Oct, [facility] [address] [id number] [address] [place] [id number] 16 Oct, 2017 [facility] [address] [id number] [address] [place] [phone] 11 Oct, 2017 Well woman exam with routine gynecological exam Z01.419 ; Screen for STD (sexually transmitted disease) Z11.3 ; Screening breast examination Z12.31 ; Type 2 diabetes mellitus without complication, without long-term current use of insulin E11.9 ; Other obesity due to excess calories E66.09 and Body mass index (BMI) of 32.0-32.9 in adult Z68.32 [facility] [address] [facility] [id number] [address] [place] [phone] Oct, Ganglion of left wrist M67.4 32 [facility] [address] [id number] [address] [place] [address] Oct, [facility] [address] [id number] [address] [place] [phone] Oct, [facility] [address] [id number] [address] [place] [address] Oct, Ganglion cyst M67.40 [facility] [address] [facility] [id number] [address] [place] [phone] Oct, [facility] [address] [facility] [id number] [address] [place] [phone] Sep, [facility] [address] [facility] [id number] [address] [place] [phone] Sep, Major depressive disorder, r ecurrent episode, moderate F33.1 [facility] [address] [id number] [address] [place] [address] Sep, [facility] [address] [facility] [id number] [address] [place] [address] Sep, Right renal mass N28.89 [facility] [address] [facility] [id number] [address] [place] [phone] Sep, [facility] [address] [facility] [id number] [address] [place] [phone] Sep, [facility] [address] [facility] [id number] [address] [place] [id number] Sep, Right renal mass N28.89 [facility] [address] [facility] [id number] [address] [place] [phone] Sep, [facility] [address] [facility] [id number] [address] [place] [phone] Sep, [facility] [address] [facility] [id number] [address] [place] [phone] Sep, [facility] [address] [facility] [id number] [address] [place] [phone] Sep, [facility] [address] [facility] [id number] [address] [place] [phone] Sep, [facility] [address] [facility] [id number] [address] [place] [phone] Sep, [facility] [address] [facility] [id number] [address] [place] [phone] Sep, Pulmonary nodule R91.1 [facility] [address] [facility] [id number] [address] [place] [address] Aug, [facility] [address] [facility] [id number] [address] [place] [phone] Aug, Right renal mass N28.89 and Pulmonary nodule R91.1 [facility] [address] [facility] [id number] [address] [place] [phone] Aug, Essential hypertension I10 ; Right renal mass N28.89 ; Chronic gastric ulcer, unspecified whether gastric ulcer hemorrhage or perforation present K25.7 ; Spondylosis of cervical region without myelopathy or radiculopathy M47.812 ; Retrolisthesis of vertebrae M43.10 and Hospital discharge follow-up Z09 [facility] [address] [facility] [id number] [address] [place] [phone] Aug, [facility] [address] [facility] [id number] [address] [place] [phone] Aug, [facility] [address] [facility] [id number] [address] [place] [phone] Aug, [facility] [address] [facility] [id number] [address] [place] [phone] Aug, Pain syndrome, chronic G89.4 ; Lumbago with sciatica, right side M54.41 ; Lumbago with sciatica, left side M54.42 ; Other chronic pain G89.29 ; Cervicalgia M54.2 ; Controlled substance agreement signed Z79.899 and Essential hypertension I10 [facility] [address] [facility] [id number] [address] [place] [address] Aug, [facility] [address] [facility] [id number] [address] [place] [address] Jul, Encounter to establish care Z76.89 ; [...] SOCIAL HISTORY Never Assessed REASON FOR VISIT fever off et on since last sat. was dx with UTI et doesnt think it has worked. elxy joseph PLAN OF CARE Activity Details Follow Up prn Reason: VITAL SIGNS Height 68 in 2018-05-20 Weight 209.6 lbs 2018-05-20 Temperature 97.8 degrees Fahrenheit 2018-05-20 Heart Rate 70 bpm 2018-05-20 Respiratory Rate 20 2018-05-20 BMI 31.87 kg/m2 2018-05-20 Blood pressure systolic 130 mmHg 2018-05-20 Blood pressure diastolic 84 mmHg 2018-05-20 MEDICATIONS Medication Instructions Dosage Frequency Start Date End Date Duration S tatus Fluticasone Propionate 50 MCG/ACT Nasally Once a day 1 spray in each nostril 24h Dec, Active Tizanidine HCl 4 MG Orally Three times a day 1 capsule as needed 8h Active Gabapentin 300 MG Orally Once a day 1 capsule before bedtime 24h 30 Active Metoprolol Tartrate 100 MG TAKE ONE TABLET BY MOUTH TWICE DAILY WITH FOOD Active PredniSONE 20 mg Orally Once a day 1 tablet 24h Apr, May, 21 days Active Lisinopril 20 MG TAKE ONE TABLET BY MOUTH TWICE DAILY Active Sertraline HCl 25 MG TAKE ONE TABLET BY MOUTH ONCE DAILY Active Accu-Chek Soft Touch Lancets - as directed 8h February, 30 days Active Cipro 500 MG Orally every 12 hrs 1 tablet 12h May, 13 A 2017 10 day(s) Active Onglyza 5 mg Orally Once a day 1 tablet 24h 30 Active Accu-Chek Soft Touch Device - as directed 8h February, Active Aspirin 81 MG Orally Once a day 1 tablet 24h Active Atorvastatin Calcium 20 mg Orally Once a day 1 tablet 24h Dec, Active Centrum Silver 50+Women - Active Lipitor 10 MG TAKE ONE TABLET BY MOUTH ONCE DAILY 30 Active Blood Glucose Test Strip - In Vitro 3 times a day as directed 8h February, Active Sucralfate 1 GM Orally 4 times a day 1 tablet 6h Active Pioglitazone HCl-Metformin HCl 15-500 MG TAKE ONE TABLET BY MOUTH ONCE DAILY WITH A MEAL 30 Active Pyridium 200 MG Orally Three times a day 1 tablet after meals 8h 2 day(s) Active Dexilant 60 mg Orally Once a day 1 capsule 24h Aug, Active Oxycodone-Acetaminophen 7.5-325 MG Orally every 6 hrs 1 tablet as n eeded 6h Apr, May, 28 days Active RESULTS No Results [...] polyp removal/colonoscopy Hospitalization History heart attack x3 [id number] 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
--- OUTSIDE RECORDS SUMMARY | 2020-01-21 19:06 | XMS REPORT ---
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 3 Active 083423201 Problem Seasonal allergic rhinitis due to pollen J30.1 Active 64782682 Problem Metabolic disorder, unspecified E88.9 Active 701274636 Problem Skin ulcer of buttock, limited to breakdown of skin L98.411 Active 99068904 Problem Lumbago with sciatica, right side M54.41 Active [id number] Problem Other spondylosis with myelopathy, cervical region M47.12 Active 25908742 Problem Lumbago with sciatica, left side M54.42 Active 720040769 Problem Type 2 diabetes mellitus wit hout complication, without long-term current use of insulin E11.9 Active 866994020 Problem Hyperlipidemia, unspecified E78.5 Ac tive 45577581 Problem Renal cell carcinoma of left kidney C64.2 Active 238073455 Problem Other spondylosis with radiculopathy, cervical region M47.22 Active 943009950 Problem Type 2 diabetes mellitus with other specified complication E11.69 Active 00027183654074 Problem Right renal mass N28.89 Active 309 270348 Problem Retrolisthesis of vertebrae M43.10 Ac tive 346202307 Problem Essential hypertension I10 Active 94280266 Problem Pain syndrome, chronic G89.4 Active 721662741 Problem Body mass index (BMI) of 32.0-32.9 in adult Z68.32 Active 856069064 Problem Other obesity due to excess calories E66.09 Active 815607140 Problem Left kidney mass N28.89 Active 309 458361 Problem Spondylosis of cervical region without myelopath y or radiculopathy M47.812 Active 039763961 Problem Major depressive disorder, recurrent episode, moderate F33.1 Active 551944998 Problem Chronic esophagogastric ulcer K25.7 Active 84549109 Problem Pulmonary nodule R91.1 Active 427 156911 Problem GERD without esophagitis K21.9 Activ e [id number] ALLERGIES No Information ENCOUNTERS Encounter Location Date Diagnosis [facility] [address] [address] Jun, [facility] [address] [address] May, Spondylosis of cervical hakan on without myelopathy or radiculopathy M47.812 [place] [address] [address] May, [place] [address] [address] May, [facility] [address] [address] May, Skin ulcer of buttock, limit ed to breakdown of skin L98.411 [facility] [address] [address] May, Fever, unspecified fever cau se R50.9 [place] [address] [address] Apr, Acute cystitis with hematuri a N30.01 and Dehydration E86.0 [place] [address] [address] Apr, [facility] [address] [address] Apr, Dysuria R30.0 and Acute cyst itis without hematuria N30.00 [place] [address] [address] Apr, [facility] [address] [address] Apr, Spondylosis of cervical hakan on without myelopathy or radiculopathy M47.812 [place] [address] [address] [place] [id number] [place] [address] Apr, [facility] [place] [id number] [place] [id number] [address] [place] [address] Apr, Other spondylosis with radic ulopathy, cervical region M47.22 [place] [address] [place] [id number] [address] [place] [address] Apr, [place] [address] [place] [id number] [place] [address] Apr, Other spondylosis with radic ulopathy, cervical region M47.22 ; Other spondylosis with myelopathy, cervical region M47.12 and Renal cell carcinoma of left kidney C64.[address] [address] Apr, [place] [address] [address] [place] [id number] [address] [place] [address] Apr, Lumbago with sciatica, right side M54.41 and Lumbago with sciatica, left side M54.42 [place] [address] [address] Mar, Type 2 diabetes mellitus wit hout [...] Hyperlipidemia, unspecified E78.5 [facility] [address] [address] Mar, Acute suppurative otitis med ia of both ears without spontaneous rupture of tympanic membranes, recurrence not specified H66.003 [place] [address] [address] Mar, [place] [address] [address] Mar, Retrolisthesis of vertebrae M43.10 [facility] [place] [address] [address] Mar, Low back pain, unspecified b ack pain laterality, unspecified chronicity, with sciatica presence unspecified M54.5 and Type 2 diabetes mellitus without complication, without long-term current use of insulin E11.9 [place] [address] [address] February, [address] [address] February, Retrolisthesis of vertebrae M43.10 [facility] [place] [address] [address] February, Strain of neck muscle, initi al encounter S16.1XXA [address] [address] February, Type 2 diabetes mellitus wit hout [...] Seasonal allergic rhinitis due to pollen J30.[address] [place] [address] February, Essential hypertension I10 ; Retrolisthesis of vertebrae M43.10 ; Body mass index (BMI) of 32.0-32.9 in adult Z68.32 and Type 2 diabetes mellitus without complication, without long-term current use of insulin E11.9 [facility] [address] [place] [id number] [place] [address] February, Type 2 diabetes mellitus wit hout complication, without long-term current use of insulin E11.9 [facility] [address] [facility] [id number] [address] [place] [address] Jan, Lumbago with sciatica, right side M54.41 [facility] [address] [facility] [id number] [address] [place] [address] Jan, Sore throat J02.9 [facility] [address] [facility] [id number] [address] [place] [address] Dec, [facility] [address] [facility] [id number] [address] [place] [address] Dec, Type 2 diabetes mellitus wit hout complication, without long-term current use of insulin E11.9 [place] [address] [place] [id number] [address] [place] [address] Dec, [facility] [address] [facility] [id number] [address] [place] [address] Dec, [place] [address] [place] [id number] [place] [address] Dec, [place] [address] [facility] [id number] [address] [place] [address] Dec, Type 2 diabetes mellitus wit hout [...] pollen J30.1 and GERD without esophagitis K21.9 [place] [address] [facility] [id number] [address] [place] [address] Dec, [facility] [address] [id number] [address] [place] [address] Nov, [facility] [address] [id number] [address] [place] [address] Nov, [place] [address] [facility] [id number] [address] [place] [address] Nov, [place] [address] [place] [id number] [address] [place] [address] Nov, [place] [address] [facility] [id number] [address] [place] [address] Oct, [place] [address] [facility] [id number] [address] [place] [address] Oct, [place] [address] [facility] [id number] [address] [place] [address] Oct, [place] [address] [facility] [id number] [address] [place] [address] Oct, Well woman exam with routine gynecological exam Z01.419 ; Screen for STD (sexually transmitted disease) Z11.3 ; Screening breast examination Z12.31 ; Type 2 diabetes mellitus without complication, without long-term current use of insulin E11.9 ; Other obesity due to excess calories E66.09 and Body mass index (BMI) of 32.0-32.9 in adult Z68.32 [place] [address] [place] [id number] [place] [address] Oct, Ganglion of left wrist M67.4 32 [place] [address] [address] [place] [id number] [place] [address] Oct, [facility] [address] [facility] [id number] [address] [place] [address] Oct, [facility] [address] [facility] [id number] [address] [place] [address] Oct, Ganglion cyst M67.40 [facility] [address] [facility] [id number] [address] [place] [address] Oct, [facility] [address] [facility] [id number] [address] [place] [address] Sep, [facility] [address] [facility] [id number] [address] [place] [address] Sep, Major depressive disorder, r ecurrent episode, moderate F33.1 [facility] [address] [facility] [id number] [address] [place] [address] Sep, [facility] [address] [facility] [id number] [address] [place] [address] Sep, Right renal mass N28.89 [facility] [address] [facility] [id number] [address] [place] [address] Sep, [facility] [address] [facility] [id number] [address] [place] [address] Sep, [facility] [address] [facility] [id number] [address] [place] [address] Sep, Right renal mass N28.89 [facility] [address] [facility] [id number] [address] [place] [address] Sep, [facility] [address] [facility] [id number] [address] [place] [address] Sep, [facility] [address] [facility] [id number] [address] [place] [address] Sep, [facility] [address] [facility] [id number] [address] [place] [address] Sep, [facility] [address] [place] [id number] [place] [address] Sep, [place] [address] [place] [id number] [place] [address] Sep, [facility] [address] [place] [id number] [place] [address] Sep, Pulmonary nodule R91.1 [place] [address] [place] [id number] [place] [address] Aug, [place] [address] [place] [id number] [place] [address] Aug, Right renal mass N28.89 and Pulmonary nodule R91.1 [place] [address] [place] [id number] [address] [place] [address] 16 Aug, 2017 Essential hypertension I10 ; Right renal mass N28.89 ; Chronic gastric ulcer, unspecified whether gastric ulcer hemorrhage or perforation present K25.7 ; Spondylosis of cervical region without myelopathy or radiculopathy M47.812 ; Retrolisthesis of vertebrae M43.10 and Hospital discharge follow-up Z09 [place] [address] [address] 14 Aug, 2017 [place] [address] [place] [id number] [address] [place] [address] 09 Aug, 2017 [place] [address] [place] [id number] [place] [address] Aug, [place] [address] [place] [id number] [place] [address] Aug, Pain syndrome, chronic G89.4 ; Lumbago with sciatica, right side M54.41 ; Lumbago with sciatica, left side M54.42 ; Other chronic pain G89.29 ; Cervicalgia M54.2 ; Controlled substance agreement signed Z79.899 and Essential hypertension I10 [place] [address] [place] [id number] [place] [phone] Aug, [facility] [address] [facility] [id number] [address] [place] [address] Jul, Encounter to establish care Z76.89 ; [...] SOCIAL HISTORY Never Assessed REASON FOR VISIT Triage, return call PLAN OF CARE VITAL SIGNS [...] polyp removal/colonoscopy Hospitalization History heart attack x3 [phone] 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
--- OUTSIDE RECORDS SUMMARY | 2020-01-21 19:06 | XMS REPORT ---
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 3 Active 631967509 Problem Seasonal allergic rhinitis due to pollen J30.1 Active 14789421 Problem Metabolic disorder, unspecified E88.9 Active 732949178 Problem Skin ulcer of buttock, limited to breakdown of skin L98.411 Active 92727775 Problem Lumbago with sciatica, right side M54.41 Active 193199063691066 Problem Other spondylosis with myelopathy, cervical region M47.12 Active 98359068 Problem Lumbago with sciatica, left side M54.42 Active 178546790 Problem Type 2 diabetes mellitus wit hout complication, without long-term current use of insulin E11.9 Active 966872789 Problem Hyperlipidemia, unspecified E78.5 Ac tive 14182493 Problem Renal cell carcinoma of left kidney C64.2 Active 191661526 Problem Other spondylosis with radiculopathy, cervical region M47.22 Active 586629502 Problem Type 2 diabetes mellitus with other specified complication E11.69 Active 70440217136443 Problem Right renal mass N28.89 Active 309 705622 Problem Retrolisthesis of vertebrae M43.10 Ac tive 864939428 Problem Essential hypertension I10 Active 71537082 Problem Pain syndrome, chronic G89.4 Active 052007364 Problem Body mass index (BMI) of 32.0-32.9 in adult Z68.32 Active 902273707 Problem Other obesity due to excess calories E66.09 Active 053303381 Problem Left kidney mass N28.89 Active 309 113162 Problem Spondylosis of cervical region without myelopath y or radiculopathy M47.812 Active 510690277 Problem Major depressive disorder, recurrent episode, moderate F33.1 Active 361715754 Problem Chronic esophagogastric ulcer K25.7 Active 19970313 Problem Pulmonary nodule R91.1 Active 427 427867 Problem GERD without esophagitis K21.9 Activ e 180655631 ALLERGIES No Information ENCOUNTERS Encounter Location Date Diagnosis [facility] [address] [address] Jun, Essential hypertension I10 [place] [address] [address] May, Spondylosis of cervical hakan on without myelopathy or radiculopathy M47.812 [place] [address] [address] May, [place] [address] [address] May, [facility] [address] [address] May, Skin ulcer of buttock, limit ed to breakdown of skin L98.411 [facility] [address] [address] May, Fever, unspecified fever cau se R50.9 [place] [address] [address] Apr, Acute cystitis with hematuri a N30.01 and Dehydration E86.0 [facility] [address] [address] Apr, [facility] [address] [address] Apr, Dysuria R30.0 and Acute cyst itis without hematuria N30.00 [place] [address] [address] Apr, [facility] [address] [address] Apr, Spondylosis of cervical hakan on without myelopathy or radiculopathy M47.812 [place] [address] [address] [facility] [id number] [address] [place] [address] Apr, [facility] [place] [id number] N [facility] [id number] [address] [place] [address] Apr, Other spondylosis with radic ulopathy, cervical region M47.22 [place] [address] [address] [facility] [id number] [address] [place] [address] Apr, [place] [address] [address] [facility] [id number] [address] [place] [address] Apr, Other spondylosis with radic ulopathy, cervical region M47.22 ; Other spondylosis with myelopathy, cervical region M47.12 and Renal cell carcinoma of left kidney C64.[address] [place] [address] Apr, [place] [address] [address] [place] [id number] [address] [place] [address] Apr, Lumbago with sciatica, right side M54.41 and Lumbago with sciatica, left side M54.42 [place] [address] [address] [place] [id number] [address] [place] [address] Mar, Type 2 diabetes mellitus wit hout [...] and Hyperlipidemia, unspecified E78.5 [facility] [place] [address] [address] Mar, Acute suppurative otitis med ia of both ears without spontaneous rupture of tympanic membranes, recurrence not specified H66.003 [place] [address] [address] Mar, [place] [address] [address] Mar, Retrolisthesis of vertebrae M43.10 [facility] [place] [address] [address] Mar, Low back pain, unspecified b ack pain laterality, unspecified chronicity, with sciatica presence unspecified M54.5 and Type 2 diabetes mellitus without complication, without long-term current use of insulin E11.[address] [address] February, [address] [address] February, Retrolisthesis of vertebrae M43.10 [facility] [address] [address] February, Strain of neck muscle, initi al encounter S16.1XXA [address] [address] February, Type 2 diabetes mellitus wit hout [...] Seasonal allergic rhinitis due to pollen J30.1 [place] [address] [place] [address] February, Essential hypertension I10 ; Retrolisthesis of vertebrae M43.10 ; Body mass index (BMI) of 32.0-32.9 in adult Z68.32 and Type 2 diabetes mellitus without complication, without long-term current use of insulin E11.9 [facility] [address] [facility] [id number] [address] [place] [address] February, Type 2 diabetes mellitus wit hout complication, without long-term current use of insulin E11.9 [facility] [address] [facility] [id number] [address] [place] [address] Jan, Lumbago with sciatica, right side M54.41 [facility] [address] [facility] [id number] [address] [place] [address] Jan, Sore throat J02.9 [facility] [address] [facility] [id number] [address] [place] [address] Dec, [facility] [address] [facility] [id number] [address] [place] [address] Dec, Type 2 diabetes mellitus wit hout complication, without long-term current use of insulin E11.9 [place] [address] [address] [facility] [id number] [address] [place] [address] Dec, [facility] [address] [facility] [id number] [address] [place] [address] 14 Dec, 2017 [place] [address] [address] [facility] [id number] [address] [place] [address] Dec, [facility] [address] [facility] [id number] [address] [place] [address] Dec, Type 2 diabetes mellitus wit hout [...] esophagitis K21.9 [facility] [address] [facility] [id number] [address] [place] [address] Dec, [facility] [address] [id number] [address] [place] [address] Nov, [facility] [address] [id number] [address] [place] [address] Nov, [place] [address] [id number] [address] [place] [address] Nov, [facility] [address] [id number] [address] [place] [address] Nov, [facility] [address] [id number] [address] [place] [address] Oct, [facility] [address] [id number] [address] [place] [address] Oct, [place] [address] [address] [facility] [id number] [address] [place] [address] Oct, [place] [address] [facility] [id number] [address] [place] [address] Oct, Well woman exam with routine gynecological exam Z01.419 ; Screen for STD (sexually transmitted disease) Z11.3 ; Screening breast examination Z12.31 ; Type 2 diabetes mellitus without complication, without long-term current use of insulin E11.9 ; Other obesity due to excess calories E66.09 and Body mass index (BMI) of 32.0-32.9 in adult Z68.32 [place] [address] [facility] [id number] [address] [place] [address] Oct, Ganglion of left wrist M67.4 [address] [place] [address] [address] [facility] [id number] [address] [place] [address] Oct, [facility] [address] [facility] [id number] [address] [place] [address] Oct, [facility] [address] [facility] [id number] [address] [place] [address] Oct, Ganglion cyst M67.40 [facility] [address] [facility] [id number] [address] [place] [address] Oct, [facility] [address] [facility] [id number] [address] [place] [address] Sep, [facility] [address] [facility] [id number] [address] [place] [address] Sep, Major depressive disorder, r ecurrent episode, moderate F33.1 [facility] [address] [facility] [id number] [address] [place] [address] Sep, [facility] [address] [facility] [id number] [address] [place] [address] Sep, Right renal mass N28.89 [facility] [address] [facility] [id number] [address] [place] [address] Sep, [facility] [address] [facility] [id number] [address] [place] [address] Sep, [facility] [address] [facility] [id number] [address] [place] [address] Sep, Right renal mass N28.89 [facility] [address] [facility] [id number] [address] [place] [address] Sep, [facility] [address] [facility] [id number] [address] [place] [address] Sep, [facility] [address] [facility] [id number] [address] [place] [address] Sep, [facility] [address] [facility] [id number] [address] [place] [address] Sep, [place] [address] [address] [place] [id number] [address] [place] [address] Sep, [facility] [address] [address] Sep, [facility] [address] [address] Sep, Pulmonary nodule R91.1 [place] [address] [address] Aug, [place] [address] [address] Aug, Right renal mass N28.89 and Pulmonary nodule R91.1 [place] [address] [address] 16 Aug, 2017 Essential hypertension I10 ; Right renal mass N28.89 ; Chronic gastric ulcer, unspecified whether gastric ulcer hemorrhage or perforation present K25.7 ; Spondylosis of cervical region without myelopathy or radiculopathy M47.812 ; Retrolisthesis of vertebrae M43.10 and Hospital discharge follow-up Z09 [place] [address] [address] 14 Aug, 2017 [place] [address] [address] 09 Aug, 2017 [place] [address] [address] Aug, [place] [address] [address] Aug, Pain syndrome, chronic G89.4 ; Lumbago with sciatica, right side M54.41 ; Lumbago with sciatica, left side M54.42 ; Other chronic pain G89.29 ; Cervicalgia M54.2 ; Controlled substance agreement signed Z79.899 and Essential hypertension I10 [place] [address] [address] Aug, [facility] [address] [facility] [id number] [address] [place] [address] Jul, Encounter to establish care Z76.89 ; [...] polyp removal/colonoscopy Hospitalization History heart attack x3 [id number] 

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
--- OUTSIDE RECORDS SUMMARY | 2020-01-21 19:07 | XMS REPORT ---
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 3 Active 855493519 Problem Seasonal allergic rhinitis due to pollen J30.1 Active 27119027 Problem Metabolic disorder, unspecified E88.9 Active 232350261 Problem Skin ulcer of buttock, limited to breakdown of skin L98.411 Active 84596359 Problem Lumbago with sciatica, right side M54.41 Active [id number] Problem Other spondylosis with myelopathy, cervical region M47.12 Active 05947219 Problem Lumbago with sciatica, left side M54.42 Active 638451901 Problem Type 2 diabetes mellitus wit hout complication, without long-term current use of insulin E11.9 Active 764408054 Problem Hyperlipidemia, unspecified E78.5 Ac tive 10159047 Problem Renal cell carcinoma of left kidney C64.2 Active 125513864 Problem Other spondylosis with radiculopathy, cervical region M47.22 Active 714081776 Problem Type 2 diabetes mellitus with other specified complication E11.69 Active 97572714211146 Problem Right renal mass N28.89 Active 309 523617 Problem Retrolisthesis of vertebrae M43.10 Ac tive 921073046 Problem Essential hypertension I10 Active 22811883 Problem Pain syndrome, chronic G89.4 Active 913952682 Problem Body mass index (BMI) of 32.0-32.9 in adult Z68.32 Active 488390587 Problem Other obesity due to excess calories E66.09 Active 614337417 Problem Left kidney mass N28.89 Active 309 608904 Problem Spondylosis of cervical region without myelopath y or radiculopathy M47.812 Active 586861482 Problem Major depressive disorder, recurrent episode, moderate F33.1 Active 732635892 Problem Chronic esophagogastric ulcer K25.7 Active 27050749 Problem Pulmonary nodule R91.1 Active 427 724071 Problem GERD without esophagitis K21.9 Activ e [id number] ALLERGIES No Information ENCOUNTERS Encounter Location Date Diagnosis [facility] [address] [address] Jun, [facility] [address] [address] May, Spondylosis of cervical hakan on without myelopathy or radiculopathy M47.812 [place] [address] [address] May, [place] [address] [address] May, [facility] [address] [address] May, Skin ulcer of buttock, limit ed to breakdown of skin L98.411 [facility] [address] [address] May, Fever, unspecified fever cau se R50.9 [place] [address] [address] Apr, Acute cystitis with hematuri a N30.01 and Dehydration E86.0 [place] [address] [address] Apr, [facility] [address] [address] Apr, Dysuria R30.0 and Acute cyst itis without hematuria N30.00 [place] [address] [address] Apr, [facility] [address] [address] Apr, Spondylosis of cervical hakan on without myelopathy or radiculopathy M47.812 [place] [address] [address] [place] [id number] [address] [place] [address] Apr, [facility] [place] [address] [place] [id number] [address] [place] [address] Apr, Other spondylosis with radic ulopathy, cervical region M47.22 [place] [address] [address] [place] [id number] [address] [place] [address] Apr, [place] [address] [address] [place] [id number] [address] [place] [address] Apr, Other spondylosis with radic ulopathy, cervical region M47.22 ; Other spondylosis with myelopathy, cervical region M47.12 and Renal cell carcinoma of left kidney C64.[address] [address] Apr, [place] [address] [address] [place] [id number] [address] [place] [address] Apr, Lumbago with sciatica, right side M54.41 and Lumbago with sciatica, left side M54.42 [place] [address] [address] Mar, Type 2 diabetes mellitus wit hout [...] Hyperlipidemia, unspecified E78.5 [facility] [address] [address] Mar, Acute suppurative otitis med ia of both ears without spontaneous rupture of tympanic membranes, recurrence not specified H66.003 [place] [address] [address] Mar, [place] [address] [address] Mar, Retrolisthesis of vertebrae M43.10 [facility] [place] [address] [address] Mar, Low back pain, unspecified b ack pain laterality, unspecified chronicity, with sciatica presence unspecified M54.5 and Type 2 diabetes mellitus without complication, without long-term current use of insulin E11.9 [place] [address] [address] February, [address] [address] February, Retrolisthesis of vertebrae M43.10 [facility] [place] [address] [address] February, Strain of neck muscle, initi al encounter S16.1XXA [address] [address] February, Type 2 diabetes mellitus wit hout [...] Seasonal allergic rhinitis due to pollen J30.[address] [place] [address] February, Essential hypertension I10 ; Retrolisthesis of vertebrae M43.10 ; Body mass index (BMI) of 32.0-32.9 in adult Z68.32 and Type 2 diabetes mellitus without complication, without long-term current use of insulin E11.9 [facility] [address] [place] [id number] [address] [place] [address] February, Type 2 diabetes mellitus wit hout complication, without long-term current use of insulin E11.9 [facility] [address] [facility] [id number] [address] [place] [address] Jan, Lumbago with sciatica, right side M54.41 [facility] [address] [facility] [id number] [address] [place] [address] Jan, Sore throat J02.9 [facility] [address] [facility] [id number] [address] [place] [address] Dec, [facility] [address] [facility] [id number] [address] [place] [address] Dec, Type 2 diabetes mellitus wit hout complication, without long-term current use of insulin E11.9 [place] [address] [address] [place] [id number] [address] [place] [address] Dec, [facility] [address] [facility] [id number] [address] [place] [address] Dec, [place] [address] [address] [place] [id number] [address] [place] [address] Dec, [place] [address] [facility] [id number] [address] [place] [address] Dec, Type 2 diabetes mellitus wit hout [...] pollen J30.1 and GERD without esophagitis K21.9 [place] [id number] [facility] [id number] [address] [place] [address] Dec, [facility] [address] [id number] [address] [place] [address] Nov, [facility] [address] [id number] [address] [place] [address] Nov, [place] [address] [facility] [id number] [address] [place] [address] Nov, [place] [address] [address] [place] [id number] [address] [place] [address] Nov, [place] [address] [facility] [id number] [address] [place] [address] Oct, [place] [address] [facility] [id number] [address] [place] [address] Oct, [place] [address] [facility] [id number] [address] [place] [address] Oct, [place] [address] [facility] [id number] [address] [place] [address] Oct, Well woman exam with routine gynecological exam Z01.419 ; Screen for STD (sexually transmitted disease) Z11.3 ; Screening breast examination Z12.31 ; Type 2 diabetes mellitus without complication, without long-term current use of insulin E11.9 ; Other obesity due to excess calories E66.09 and Body mass index (BMI) of 32.0-32.9 in adult Z68.32 [place] [address] [address] [place] [id number] [address] [place] [address] Oct, Ganglion of left wrist M67.4 32 [place] [address] [address] [place] [id number] [address] [place] [address] Oct, [facility] [address] [facility] [id number] [address] [place] [address] Oct, [facility] [address] [facility] [id number] [address] [place] [address] Oct, Ganglion cyst M67.40 [facility] [address] [facility] [id number] [address] [place] [address] Oct, [facility] [address] [facility] [id number] [address] [place] [address] Sep, [facility] [address] [facility] [id number] [address] [place] [address] Sep, Major depressive disorder, r ecurrent episode, moderate F33.1 [facility] [address] [facility] [id number] [address] [place] [address] Sep, [facility] [address] [facility] [id number] [address] [place] [address] Sep, Right renal mass N28.89 [facility] [address] [facility] [id number] [address] [place] [address] Sep, [facility] [address] [facility] [id number] [address] [place] [address] Sep, [facility] [address] [facility] [id number] [address] [place] [address] Sep, Right renal mass N28.89 [facility] [address] [facility] [id number] [address] [place] [address] Sep, [facility] [address] [facility] [id number] [address] [place] [address] Sep, [facility] [address] [facility] [id number] [address] [place] [id number] Sep, [facility] [address] [facility] [id number] [address] [place] [address] Sep, [facility] [address] [place] [id number] [address] [place] [address] Sep, [place] [address] [address] [place] [id number] [address] [place] [address] Sep, [facility] [address] [place] [id number] [address] [place] [address] Sep, Pulmonary nodule R91.1 [place] [address] [address] [place] [id number] [address] [place] [address] Aug, [place] [address] [address] [place] [id number] [place] [address] Aug, Right renal mass N28.89 and Pulmonary nodule R91.1 [place] [address] [address] [place] [id number] [address] [place] [address] 16 Aug, 2017 Essential hypertension I10 ; Right renal mass N28.89 ; Chronic gastric ulcer, unspecified whether gastric ulcer hemorrhage or perforation present K25.7 ; Spondylosis of cervical region without myelopathy or radiculopathy M47.812 ; Retrolisthesis of vertebrae M43.10 and Hospital discharge follow-up Z09 [place] [address] [address] 14 Aug, 2017 [place] [address] [address] [place] [id number] [address] [place] [address] 09 Aug, 2017 [place] [address] [address] [place] [id number] [address] [place] [address] Aug, [place] [address] [address] [place] [id number] [place] [address] Aug, Pain syndrome, chronic G89.4 ; Lumbago with sciatica, right side M54.41 ; Lumbago with sciatica, left side M54.42 ; Other chronic pain G89.29 ; Cervicalgia M54.2 ; Controlled substance agreement signed Z79.899 and Essential hypertension I10 [place] [address] [address] [place] [id number] [address] [place] [address] Aug, [facility] [address] [facility] [id number] [address] [place] [address] Jul, Encounter to establish care Z76.89 ; [...] SOCIAL HISTORY Never Assessed REASON FOR VISIT medication refills-pt was in requesting an increase/continued fill on her Predni sone, in the ER she was given 20mg 2 tablets daily, when seen by [facility] she was only given 20mg once daily. Pt was wanting a continued dose for twice daily to last her until her specialist appt. Spoke with priscilla regarding this and state s she is unable to give bue to too long of a high dose steroid use and could pot entially cause an adrenal crisis. Pt was explained all of this and voiced under standing, she states if her symtoms become too severe she would just head to the nearest ED, I agreed with pt on this decsion. PLAN OF CARE VITAL SIGNS MEDICATIONS Unknown [...] polyp removal/colonoscopy Hospitalization History heart attack x3 [id number] 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
--- OUTSIDE RECORDS SUMMARY | 2020-01-21 19:07 | XMS REPORT ---
Author Author Amy BLANCAS Organization [facility] Address [address] [place] [address] Care Team Providers Care Animation Producer Name Role Phone BLANCASNADER YeeELE Unavailable PROBLEMS Type Condition ICD9-CM Code CEN22-EL Code Onset Dates Condition S tatus SNOMED Code Problem 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 3 Active 715890943 Problem Seasonal allergic rhinitis due to pollen J30.1 Active 67364692 Problem Metabolic disorder, unspecified E88.9 Active 301729205 Problem Skin ulcer of buttock, limited to breakdown of skin L98.411 Active 38909174 Problem Lumbago with sciatica, right side M54.41 Active 922649389366386 Problem Other spondylosis with myelopathy, cervical region M47.12 Active 80365045 Problem Lumbago with sciatica, left side M54.42 Active 115224983 Problem Type 2 diabetes mellitus wit hout complication, without long-term current use of insulin E11.9 Active 324972276 Problem Hyperlipidemia, unspecified E78.5 Ac tive 42371966 Problem Renal cell carcinoma of left kidney C64.2 Active 390465813 Problem Other spondylosis with radiculopathy, cervical region M47.22 Active 394948284 Problem Type 2 diabetes mellitus with other specified complication E11.69 Active 29342317645422 Problem Right renal mass N28.89 Active 309 430900 Problem Retrolisthesis of vertebrae M43.10 Ac tive 599919792 Problem Essential hypertension I10 Active 64654103 Problem Pain syndrome, chronic G89.4 Active 790057455 Problem Body mass index (BMI) of 32.0-32.9 in adult Z68.32 Active 996926666 Problem Other obesity due to excess calories E66.09 Active 564308206 Problem Left kidney mass N28.89 Active 309 585104 Problem Spondylosis of cervical region without myelopath y or radiculopathy M47.812 Active 002055011 Problem Major depressive disorder, recurrent episode, moderate F33.1 Active 239911151 Problem Chronic esophagogastric ulcer K25.7 Active 74962313 Problem Pulmonary nodule R91.1 Active 427 571219 Problem GERD without esophagitis K21.9 Activ e [id number] ALLERGIES No Information ENCOUNTERS Encounter Location Date Diagnosis [facility] [address] [address] Jun, [facility] [address] [address] May, Spondylosis of cervical hakan on without myelopathy or radiculopathy M47.812 [place] [address] [address] May, [place] [address] [address] May, [facility] [address] [address] May, Skin ulcer of buttock, limit ed to breakdown of skin L98.411 [facility] [address] [address] May, Fever, unspecified fever cau se R50.9 [place] [address] [address] Apr, Acute cystitis with hematuri a N30.01 and Dehydration E86.0 [place] [address] [address] Apr, [facility] [address] [address] Apr, Dysuria R30.0 and Acute cyst itis without hematuria N30.00 [place] [address] [address] Apr, [facility] [address] [address] Apr, Spondylosis of cervical hakan on without myelopathy or radiculopathy M47.812 [place] [address] [address] [place] [id number] [place] [phone] Apr, [facility] [place] [address] [place] [id number] [address] [place] [phone] Apr, Other spondylosis with radic ulopathy, cervical region M47.22 [place] [address] [address] [place] [id number] [place] [phone] Apr, [place] [address] [address] [place] [id number] [place] [phone] Apr, Other spondylosis with radic ulopathy, cervical region M47.22 ; Other spondylosis with myelopathy, cervical region M47.12 and Renal cell carcinoma of left kidney C64.[address] [address] Apr, [place] [address] [address] [place] [id number] [place] [phone] Apr, Lumbago with sciatica, right side M54.41 and Lumbago with sciatica, left side M54.42 [place] [address] [address] Mar, Type 2 diabetes mellitus wit hout [...] specified complication E11.69 and Hyperlipidemia, unspecified E78.5 [facility] [address] [address] Mar, Acute suppurative otitis med ia of both ears without spontaneous rupture of tympanic membranes, recurrence not specified H66.003 [place] [address] [address] Mar, [place] [address] [address] Mar, Retrolisthesis of vertebrae M43.10 [facility] [place] [address] [address] Mar, Low back pain, unspecified b ack pain laterality, unspecified chronicity, with sciatica presence unspecified M54.5 and Type 2 diabetes mellitus without complication, without long-term current use of insulin E11.9 [place] [address] [address] February, [address] [address] February, Retrolisthesis of vertebrae M43.10 [facility] [place] [address] [address] February, Strain of neck muscle, initi al encounter S16.1XXA [address] [address] February, Type 2 diabetes mellitus wit hout [...] allergic rhinitis due to pollen J30.[address] [place] [address] February, Essential hypertension I10 ; Retrolisthesis of vertebrae M43.10 ; Body mass index (BMI) of 32.0-32.9 in adult Z68.32 and Type 2 diabetes mellitus without complication, without long-term current use of insulin E11.9 [facility] [address] [place] [id number] [place] [address] February, Type 2 diabetes mellitus wit hout complication, without long-term current use of insulin E11.9 [facility] [address] [facility] [id number] [address] [place] [phone] Jan, Lumbago with sciatica, right side M54.41 [facility] [address] [facility] [id number] [address] [place] [phone] Jan, Sore throat J02.9 [facility] [address] [facility] [id number] [address] [place] [phone] Dec, [facility] [address] [facility] [id number] [address] [place] [phone] Dec, Type 2 diabetes mellitus wit hout complication, without long-term current use of insulin E11.9 [place] [address] [address] [place] [id number] [address] [place] [phone] Dec, [facility] [address] [facility] [id number] [address] [place] [phone] Dec, [place] [address] [address] [place] [id number] [address] [place] [phone] Dec, [place] [address] [address] [facility] [id number] [address] [place] [phone] Dec, Type 2 diabetes mellitus wit hout [...] pollen J30.1 and GERD without esophagitis K21.9 [place] [address] [facility] [id number] [address] [place] [phone] Dec, [facility] [address] [id number] [address] [place] [phone] Nov, [facility] [address] [id number] [address] [place] [phone] Nov, [place] [address] [address] [facility] [id number] [address] [place] [phone] Nov, [place] [address] [address] [place] [id number] [address] [place] [phone] Nov, [place] [address] [address] [facility] [id number] [address] [place] [phone] Oct, [place] [address] [address] [facility] [id number] [address] [place] [phone] Oct, [place] [address] [address] [facility] [id number] [address] [place] [phone] Oct, [place] [address] [address] [facility] [id number] [address] [place] [address] Oct, Well woman exam with routine gynecological exam Z01.419 ; Screen for STD (sexually transmitted disease) Z11.3 ; Screening breast examination Z12.31 ; Type 2 diabetes mellitus without complication, without long-term current use of insulin E11.9 ; Other obesity due to excess calories E66.09 and Body mass index (BMI) of 32.0-32.9 in adult Z68.32 [place] [address] [address] [place] [id number] [address] [place] [phone] Oct, Ganglion of left wrist M67.4 32 [place] [address] [address] [place] [id number] [address] [place] [phone] Oct, [facility] [address] [facility] [id number] [address] [place] [phone] Oct, [facility] [address] [facility] [id number] [address] [place] [phone] Oct, Ganglion cyst M67.40 [facility] [address] [facility] [id number] [address] [place] [phone] Oct, [facility] [address] [facility] [id number] [address] [place] [phone] Sep, [facility] [address] [facility] [id number] [address] [place] [phone] Sep, Major depressive disorder, r ecurrent episode, moderate F33.1 [facility] [address] [facility] [id number] [address] [place] [phone] Sep, [facility] [address] [facility] [id number] [address] [place] [phone] Sep, Right renal mass N28.89 [facility] [address] [facility] [id number] [address] [place] [phone] Sep, [facility] [address] [facility] [id number] [address] [place] [phone] Sep, [facility] [address] [facility] [id number] [address] [place] [phone] Sep, Right renal mass N28.89 [facility] [address] [facility] [id number] [address] [place] [phone] Sep, [facility] [address] [facility] [id number] [address] [place] [phone] Sep, [facility] [address] [facility] [id number] [address] [place] [phone] Sep, [facility] [address] [facility] [id number] [address] [place] [phone] Sep, [facility] [address] [place] [id number] [address] [place] [phone] Sep, [place] [address] [address] [place] [id number] [address] [place] [phone] Sep, [facility] [address] [place] [id number] [address] [place] [phone] Sep, Pulmonary nodule R91.1 [place] [address] [address] [place] [id number] [place] [phone] Aug, [place] [address] [address] [place] [id number] [place] [phone] Aug, Right renal mass N28.89 and Pulmonary nodule R91.1 [place] [address] [address] [place] [id number] [address] [place] [address] 16 Aug, 2017 Essential hypertension I10 ; Right renal mass N28.89 ; Chronic gastric ulcer, unspecified whether gastric ulcer hemorrhage or perforation present K25.7 ; Spondylosis of cervical region without myelopathy or radiculopathy M47.812 ; Retrolisthesis of vertebrae M43.10 and Hospital discharge follow-up Z09 [place] [address] [address] 14 Aug, 2017 [place] [address] [address] [place] [id number] [address] [place] [phone] 09 Aug, 2017 [place] [address] [address] [place] [id number] [address] [place] [phone] Aug, [place] [address] [address] [place] [id number] [place] [phone] Aug, Pain syndrome, chronic G89.4 ; Lumbago with sciatica, right side M54.41 ; Lumbago with sciatica, left side M54.42 ; Other chronic pain G89.29 ; Cervicalgia M54.2 ; Controlled substance agreement signed Z79.899 and Essential hypertension I10 [place] [address] [address] [place] [id number] [address] [place] [phone] Aug, [facility] [address] [facility] [id number] [address] [place] [address] Jul, Encounter to establish care Z76.89 ; [...] polyp removal/colonoscopy Hospitalization History heart attack x3 [phone] 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
--- OUTSIDE RECORDS SUMMARY | 2020-01-21 19:07 | XMS REPORT ---
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 3 Active 975550716 Problem Seasonal allergic rhinitis due to pollen J30.1 Active 00663132 Problem Metabolic disorder, unspecified E88.9 Active 777718119 Problem Skin ulcer of buttock, limited to breakdown of skin L98.411 Active 01270362 Problem Lumbago with sciatica, right side M54.41 Active 587892255754550 Problem Other spondylosis with myelopathy, 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10 Ac tive 017786011 Problem Essential hypertension I10 Active 92591598 Problem Pain syndrome, chronic G89.4 Active 733373168 Problem Body mass index (BMI) of 32.0-32.9 in adult Z68.32 Active 973285986 Problem Other obesity due to excess calories E66.09 Active 620526435 Problem Left kidney mass N28.89 Active 309 087272 Problem Spondylosis of cervical region without myelopath y or radiculopathy M47.812 Active 715336113 Problem Major depressive disorder, recurrent episode, moderate F33.1 Active 947647600 Problem Chronic esophagogastric ulcer K25.7 Active 75918407 Problem Pulmonary nodule R91.1 Active 427 268896 Problem GERD without esophagitis K21.9 Activ e 394796446 ALLERGIES No Information ENCOUNTERS Encounter Location Date Diagnosis [facility] [address] [address] Jun, [facility] [address] [address] May, Spondylosis of cervical hakan on without myelopathy or radiculopathy M47.812 [place] [address] [address] May, [place] [address] [address] May, [facility] [address] [address] May, Skin ulcer of buttock, limit ed to breakdown of skin L98.411 [facility] [address] [address] May, Fever, unspecified fever cau se R50.9 [place] [address] [address] Apr, Acute cystitis with hematuri a N30.01 and Dehydration E86.0 [place] [address] [address] Apr, [facility] [address] [address] Apr, Dysuria R30.0 and Acute cyst itis without hematuria N30.00 [place] [address] [address] Apr, [facility] [address] [address] Apr, Spondylosis of cervical hakan on without myelopathy or radiculopathy M47.812 [place] [address] [address] Apr, [facility] [place] [address] [place] [id number] [place] [address] Apr, Other spondylosis with radic ulopathy, cervical region M47.22 [place] [address] [place] [address] Apr, [place] [address] [place] [address] Apr, Other spondylosis with radic ulopathy, cervical region M47.22 ; Other spondylosis with myelopathy, cervical region M47.12 and Renal cell carcinoma of left kidney C64.[address] [address] Apr, [place] [address] [place] [id number] [place] [address] Apr, Lumbago with sciatica, right side M54.41 and Lumbago with sciatica, left side M54.42 [place] [address] [address] Mar, Type 2 diabetes mellitus wit hout [...] and Hyperlipidemia, unspecified E78.5 [facility] [address] [address] Mar, Acute suppurative otitis med ia of both ears without spontaneous rupture of tympanic membranes, recurrence not specified H66.003 [place] [address] [address] Mar, [place] [address] [address] Mar, Retrolisthesis of vertebrae M43.10 [facility] [place] [address] [address] Mar, Low back pain, unspecified b ack pain laterality, unspecified chronicity, with sciatica presence unspecified M54.5 and Type 2 diabetes mellitus without complication, without long-term current use of insulin E11.9 [place] [address] [address] February, [address] [address] February, Retrolisthesis of vertebrae M43.10 [facility] [place] [address] [address] February, Strain of neck muscle, initi al encounter S16.1XXA [address] [address] February, Type 2 diabetes mellitus wit hout [...] Seasonal allergic rhinitis due to pollen J30.[address] [address] February, Essential hypertension I10 ; Retrolisthesis of vertebrae M43.10 ; Body mass index (BMI) of 32.0-32.9 in adult Z68.32 and Type 2 diabetes mellitus without complication, without long-term current use of insulin E11.9 [facility] [address] [facility] [id number] [address] [place] [address] February, Type 2 diabetes mellitus wit hout complication, without long-term current use of insulin E11.9 [facility] [address] [facility] [id number] [address] [place] [address] Jan, Lumbago with sciatica, right side M54.41 [facility] [address] [facility] [id number] [address] [place] [address] Jan, Sore throat J02.9 [place] [address] [address] [facility] [id number] [address] [place] [address] Dec, [facility] [address] [facility] [id number] [address] [place] [address] Dec, Type 2 diabetes mellitus wit hout complication, without long-term current use of insulin E11.9 [place] [address] [facility] [id number] [address] [place] [address] Dec, [facility] [address] [facility] [id number] [address] [place] [address] Dec, [place] [address] [facility] [id number] [address] [place] [address] Dec, [place] [address] [facility] [id number] [address] [place] [address] Dec, Type 2 diabetes mellitus wit hout [...] and GERD without esophagitis K21.9 [place] [address] [facility] [id number] [address] [place] [address] Dec, [place] [address] [id number] [address] [place] [address] Nov, [facility] [address] [id number] [address] [place] [address] Nov, [place] [address] [facility] [id number] [address] [place] [address] Nov, [place] [address] [place] [id number] [place] [address] Nov, [place] [address] [facility] [id number] [address] [place] [address] Oct, [place] [address] [facility] [id number] [address] [place] [address] Oct, [place] [address] [facility] [id number] [address] [place] [address] Oct, [place] [address] [facility] [id number] [address] [place] [address] Oct, Well woman exam with routine gynecological exam Z01.419 ; Screen for STD (sexually transmitted disease) Z11.3 ; Screening breast examination Z12.31 ; Type 2 diabetes mellitus without complication, without long-term current use of insulin E11.9 ; Other obesity due to excess calories E66.09 and Body mass index (BMI) of 32.0-32.9 in adult Z68.32 [place] [address] [place] [id number] [place] [address] Oct, Ganglion of left wrist M67.4 32 [place] [address] [address] [place] [id number] [place] [address] Oct, [facility] [address] [id number] [address] [place] [address] Oct, [facility] [address] [facility] [id number] [address] [place] [address] Oct, Ganglion cyst M67.40 [facility] [address] [facility] [id number] [address] [place] [address] Oct, [facility] [address] [facility] [id number] [address] [place] [address] Sep, [facility] [address] [facility] [id number] [address] [place] [address] Sep, Major depressive disorder, r ecurrent episode, moderate F33.1 [facility] [address] [facility] [id number] [address] [place] [address] Sep, [facility] [address] [facility] [id number] [address] [place] [address] Sep, Right renal mass N28.89 [facility] [address] [facility] [id number] [address] [place] [address] Sep, [facility] [address] [facility] [id number] [address] [place] [address] Sep, [facility] [address] [facility] [id number] [address] [place] [address] Sep, Right renal mass N28.89 [facility] [address] [facility] [id number] [address] [place] [address] Sep, [facility] [address] [facility] [id number] [address] [place] [address] Sep, [facility] [address] [facility] [id number] [address] [place] [address] Sep, [facility] [address] [facility] [id number] [address] [place] [address] Sep, [facility] [address] [place] [address] Sep, [facility] [address] [place] [id number] [place] [address] Sep, [facility] [address] [facility] [id number] [address] [place] [address] Sep, Pulmonary nodule R91.1 [place] [address] [place] [id number] [place] [address] Aug, [place] [address] [place] [id number] [place] [address] Aug, Right renal mass N28.89 and Pulmonary nodule R91.1 [place] [address] [place] [id number] [place] [address] 16 Aug, 2017 Essential hypertension I10 ; Right renal mass N28.89 ; Chronic gastric ulcer, unspecified whether gastric ulcer hemorrhage or perforation present K25.7 ; Spondylosis of cervical region without myelopathy or radiculopathy M47.812 ; Retrolisthesis of vertebrae M43.10 and Hospital discharge follow-up Z09 [place] [address] [address] 14 Aug, 2017 [place] [address] [place] [id number] [place] [phone] 09 Aug, 2017 [place] [address] [place] [id number] [place] [address] Aug, [place] [address] [place] [id number] [place] [address] 07 Aug, 2017 Pain syndrome, chronic G89.4 ; Lumbago with sciatica, right side M54.41 ; Lumbago with sciatica, left side M54.42 ; Other chronic pain G89.29 ; Cervicalgia M54.2 ; Controlled substance agreement signed Z79.899 and Essential hypertension I10 [place] [address] [address] Aug, [facility] [address] [facility] [id number] [address] [place] [address] Jul, Encounter to establish care Z76.89 ; [...] SOCIAL HISTORY Never Assessed REASON FOR VISIT PT Evaluation PLAN OF CARE Activity Details Follow Up 3 Weeks Reason:F/U PT VITAL SIGNS MEDICATIONS Unknown Medications RESULTS No Results PROCEDURES Procedure Date Ordered Result Body Site PT EVAL MOD COMPLEX 30 MIN April 27, 2018 THERAPEUTIC EXERCISES April 27, 2018 INSTRUCTIONS MEDICATIONS ADMINISTERED No Known Medications [...] polyp removal/colonoscopy Hospitalization History heart attack x3 [phone] 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
--- OUTSIDE RECORDS SUMMARY | 2020-01-21 19:07 | XMS REPORT ---
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 3 Active [id number] Problem Seasonal allergic rhinitis due to pollen J30.1 Active 83610153 Problem Metabolic disorder, unspecified E88.9 Active 147915842 Problem Skin ulcer of buttock, limited to breakdown of skin L98.411 Active 44159872 Problem Lumbago with sciatica, right side M54.41 Active 252829176184376 Problem Other spondylosis with myelopathy, cervical region M47.12 Active 17735797 Problem Lumbago with sciatica, left side M54.42 Active 126536502 Problem Type 2 diabetes mellitus wit hout complication, without long-term current use of insulin E11.9 Active 506488913 Problem Hyperlipidemia, unspecified E78.5 Ac tive 85069813 Problem Renal cell carcinoma of left kidney C64.2 Active 852914391 Problem Other spondylosis with radiculopathy, cervical region M47.22 Active 419457902 Problem Type 2 diabetes mellitus with other specified complication E11.69 Active 66582957888717 Problem Right renal mass N28.89 Active 309 222518 Problem Retrolisthesis of vertebrae M43.10 Ac tive 404705851 Problem Essential hypertension I10 Active 38600368 Problem Pain syndrome, chronic G89.4 Active 048833370 Problem Body mass index (BMI) of 32.0-32.9 in adult Z68.32 Active 073201541 Problem Other obesity due to excess calories E66.09 Active 768647275 Problem Left kidney mass N28.89 Active 309 758493 Problem Spondylosis of cervical region without myelopath y or radiculopathy M47.812 Active 412768147 Problem Major depressive disorder, recurrent episode, moderate F33.1 Active 992742930 Problem Chronic esophagogastric ulcer K25.7 Active 60740269 Problem Pulmonary nodule R91.1 Active 427 760520 Problem GERD without esophagitis K21.9 Activ e 560147747 ALLERGIES Substance Reaction Event Type Date Status Ketorolac Tromethamine Unknown Drug Allergy Apr, Activ e Hydrocodone-Acetaminophen anaphylaxis Drug Allergy Apr, Ac tive Feldene cintron's palsy Drug Allergy Apr, Active Doxycycline Monohydrate anaphylaxis Drug Allergy Apr, Acti ve ENCOUNTERS Encounter Location Date Diagnosis [place] [address] [address] Jun, [place] [address] [address] May, Spondylosis of cervical hakan on without myelopathy or radiculopathy M47.812 [place] [address] [address] May, [place] [address] [address] May, [facility] [place] [address] [address] May, Skin ulcer of buttock, limit ed to breakdown of skin L98.411 [facility] [place] [address] [address] May, Fever, unspecified fever cau se R50.9 [place] [address] [address] Apr, Acute cystitis with hematuri a N30.01 and Dehydration E86.0 [place] [address] [address] Apr, [facility] [address] [address] Apr, Dysuria R30.0 and Acute cyst itis without hematuria N30.00 [facility] [address] [id number] [address] [place] [address] Apr, [facility] [address] [id number] [address] [place] [address] Apr, Spondylosis of cervical hakan on without myelopathy or radiculopathy M47.812 [facility] [address] [id number] [address] [place] [address] Apr, [facility] [address] [id number] [address] [place] [address] Apr, Other spondylosis with radic ulopathy, cervical region M47.22 [facility] [address] [id number] [address] [place] [address] Apr, [facility] [address] [id number] [address] [place] [address] Apr, Other spondylosis with radic ulopathy, cervical region M47.22 ; Other spondylosis with myelopathy, cervical region M47.12 and Renal cell carcinoma of left kidney C64.2 [facility] [address] [id number] [address] [place] [address] Apr, [facility] [address] [id number] [address] [place] [address] Apr, Lumbago with sciatica, right side M54.41 and Lumbago with sciatica, left side M54.42 [facility] [address] [id number] [address] [place] [address] Mar, Type 2 diabetes mellitus wit hout [...] specified complication E11.69 and Hyperlipidemia, unspecified E78.5 [facility] [place] [address] [address] Mar, Acute suppurative otitis med ia of both ears without spontaneous rupture of tympanic membranes, recurrence not specified H66.003 [place] [address] [address] Mar, [place] [address] [address] Mar, Retrolisthesis of vertebrae M43.10 [facility] [place] [address] [address] Mar, Low back pain, unspecified b ack pain laterality, unspecified chronicity, with sciatica presence unspecified M54.5 and Type 2 diabetes mellitus without complication, without long-term current use of insulin E11.9 [place] [address] [address] February, [address] [address] February, Retrolisthesis of vertebrae M43.10 [facility] [place] [address] [address] February, Strain of neck muscle, initi al encounter S16.1XXA [place] [address] [address] February, Type 2 diabetes mellitus wit hout [...] Seasonal allergic rhinitis due to pollen J30.1 [facility] [address] [facility] [id number] [address] [place] [address] February, Essential hypertension I10 ; Retrolisthesis of vertebrae M43.10 ; Body mass index (BMI) of 32.0-32.9 in adult Z68.32 and Type 2 diabetes mellitus without complication, without long-term current use of insulin E11.9 [facility] [address] [facility] [id number] [address] [place] [address] February, Type 2 diabetes mellitus wit hout complication, without long-term current use of insulin E11.9 [place] [address] [facility] [id number] [address] [place] [address] Jan, Lumbago with sciatica, right side M54.41 [facility] [address] [facility] [id number] [address] [place] [address] Jan, Sore throat J02.9 [facility] [address] [facility] [id number] [address] [place] [address] Dec, [facility] [address] [facility] [id number] [address] [place] [address] Dec, Type 2 diabetes mellitus wit hout complication, without long-term current use of insulin E11.9 [place] [address] [facility] [id number] [address] [place] [address] Dec, [facility] [address] [facility] [id number] [address] [place] [address] Dec, [facility] [address] [facility] [id number] [address] [place] [address] Dec, [facility] [address] [facility] [id number] [address] [place] [id number] Dec, Type 2 diabetes mellitus wit hout [...] pollen J30.1 and GERD without esophagitis K21.9 [facility] [address] [id number] [address] [place] [address] Dec, [facility] [address] [id number] [address] [place] [address] Nov, [facility] [address] [id number] [address] [place] [address] Nov, [facility] [address] [id number] [address] [place] [address] Nov, [facility] [address] [id number] [address] [place] [address] Nov, [facility] [address] [id number] [address] [place] [address] Oct, [facility] [address] [id number] [address] [place] [address] Oct, [facility] [address] [id number] [address] [place] [address] 16 Oct, 2017 [facility] [address] [id number] [address] [place] [address] 11 Oct, 2017 Well woman exam with routine gynecological exam Z01.419 ; Screen for STD (sexually transmitted disease) Z11.3 ; Screening breast examination Z12.31 ; Type 2 diabetes mellitus without complication, without long-term current use of insulin E11.9 ; Other obesity due to excess calories E66.09 and Body mass index (BMI) of 32.0-32.9 in adult Z68.32 [facility] [address] [id number] [address] [place] [address] Oct, Ganglion of left wrist M67.4 32 [facility] [address] [id number] [address] [place] [address] Oct, [facility] [address] [facility] [id number] [address] [place] [address] Oct, [facility] [address] [id number] [address] [place] [address] Oct, Ganglion cyst M67.40 [facility] [address] [id number] [address] [place] [address] Oct, [facility] [address] [facility] [id number] [address] [place] [address] Sep, [facility] [address] [facility] [id number] [address] [place] [address] Sep, Major depressive disorder, r ecurrent episode, moderate F33.1 [facility] [address] [id number] [address] [place] [address] Sep, [facility] [address] [facility] [id number] [address] [place] [address] Sep, Right renal mass N28.89 [facility] [address] [facility] [id number] [address] [place] [address] Sep, [facility] [address] [facility] [id number] [address] [place] [address] Sep, [facility] [address] [facility] [id number] [address] [place] [address] Sep, Right renal mass N28.89 [facility] [address] [facility] [id number] [address] [place] [address] Sep, [facility] [address] [facility] [id number] [address] [place] [address] Sep, [facility] [address] [facility] [id number] [address] [place] [address] Sep, [facility] [address] [facility] [id number] [address] [place] [id number] Sep, [facility] [address] [facility] [id number] [address] [place] [address] Sep, [facility] [address] [place] [id number] [address] [place] [id number] Sep, [facility] [address] [facility] [id number] [address] [place] [address] Sep, Pulmonary nodule R91.1 [facility] [address] [place] [id number] [address] [place] [id number] Aug, [facility] [address] [place] [id number] [address] [place] [id number] Aug, Right renal mass N28.89 and Pulmonary nodule R91.1 [facility] [address] [place] [id number] [address] [place] [address] Aug, Essential hypertension I10 ; Right renal mass N28.89 ; Chronic gastric ulcer, unspecified whether gastric ulcer hemorrhage or perforation present K25.7 ; Spondylosis of cervical region without myelopathy or radiculopathy M47.812 ; Retrolisthesis of vertebrae M43.10 and Hospital discharge follow-up Z09 [place] [address] [address] [place] [id number] [address] [place] [id number] Aug, [facility] [address] [place] [id number] [address] [place] [id number] Aug, [facility] [address] [place] [id number] [address] [place] [address] Aug, [facility] [address] [place] [id number] [address] [place] [address] Aug, Pain syndrome, chronic G89.4 ; Lumbago with sciatica, right side M54.41 ; Lumbago with sciatica, left side M54.42 ; Other chronic pain G89.29 ; Cervicalgia M54.2 ; Controlled substance agreement signed Z79.899 and Essential hypertension I10 [facility] [address] [facility] [id number] [address] [address] Aug, [facility] [address] [facility] [id number] [address] [address] Jul, Encounter to establish care Z76.89 ; [...] SOCIAL HISTORY Never Assessed REASON FOR VISIT VIA C ER f/u, knee pain fu -- toma valadez PLAN OF CARE Activity Details Follow Up 3 Months, prn Reason:CHM/jey n/dm VITAL SIGNS Height 68 in 2018-05-03 Weight 213.0 lbs 2018-05-03 Temperature 98.0 degrees Fahrenheit 2018-05-03 Heart Rate 78 bpm 2018-05-03 Respiratory Rate 22 2018-05-03 BMI 32.38 kg/m2 2018-05-03 Blood pressure systolic 140 mmHg 2018-05-03 Blood pressure diastolic 90 mmHg 2018-05-03 MEDICATIONS Medication Instructions Dosage Frequency Start Date End Date Duration S tatus Blood Glucose Test Strip - In Vitro 3 times a day as directed 8h February, Active Aspirin 81 MG Orally Once a day 1 tablet 24h Active Dexilant 60 mg Orally Once a day 1 capsule 24h Aug, Active Accu-Chek Soft Touch Device - as directed 8h February, Active Lisinopril 20 MG TAKE ONE TABLET BY MOUTH TWICE DAILY Active Centrum Silver 50+Women - Active Gabapentin 300 MG Orally Once a day 1 capsule before bedtime 24h 30 Active Atorvastatin Calcium 20 mg Orally Once a day 1 tablet 24h Dec, 18 Active Oxycodone-Acetaminophen 7.5-325 MG Orally every 6 hrs 1 tablet as n eeded 6h Mar, Active Sertraline HCl 25 MG TAKE ONE TABLET BY MOUTH ONCE DAILY Active Fluticasone Propionate 50 MCG/ACT Nasally Once a day 1 spray in each nostril 24h Dec, Active Accu-Chek Soft Touch Lancets - as directed 8h February, 30 days Active Pioglitazone HCl-Metformin HCl 15-500 MG TAKE ONE TABLET BY MOUTH ONCE DAILY WITH A MEAL 30 Active Sucralfate 1 GM Orally 4 times a day 1 tablet 6h Active Metoprolol Tartrate 100 MG TAKE ONE TABLET BY MOUTH TWICE DAILY WITH FOOD Active Lipitor 10 MG TAKE ONE TABLET BY MOUTH ONCE DAILY 30 Active Tizanidine HCl 4 MG Orally Three times a day 1 capsule as needed 8h Active Onglyza 5 mg Orally Once a day 1 tablet 24h 30 Active RESULTS No Results PROCEDURES [...] polyp removal/colonoscopy Hospitalization History heart attack x3 [id number] 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
--- OUTSIDE RECORDS SUMMARY | 2020-01-21 19:07 | XMS REPORT ---
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 3 Active [id number] Problem Seasonal allergic rhinitis due to pollen J30.1 Active 43995453 Problem Metabolic disorder, unspecified E88.9 Active 400106097 Problem Skin ulcer of buttock, limited to breakdown of skin L98.411 Active 42226058 Problem Lumbago with sciatica, right side M54.41 Active [id number] Problem Other spondylosis with myelopathy, cervical region M47.12 Active 88722060 Problem Lumbago with sciatica, left side M54.42 Active 401973866 Problem Type 2 diabetes mellitus wit hout complication, without long-term current use of insulin E11.9 Active 665655092 Problem Hyperlipidemia, unspecified E78.5 Ac tive 41147117 Problem Renal cell carcinoma of left kidney C64.2 Active 706524718 Problem Other spondylosis with radiculopathy, cervical region M47.22 Active 405697763 Problem Type 2 diabetes mellitus with other specified complication E11.69 Active 77353055002389 Problem Right renal mass N28.89 Active 309 626812 Problem Retrolisthesis of vertebrae M43.10 Ac tive 528759493 Problem Essential hypertension I10 Active 09823719 Problem Pain syndrome, chronic G89.4 Active 022157386 Problem Body mass index (BMI) of 32.0-32.9 in adult Z68.32 Active 389062343 Problem Other obesity due to excess calories E66.09 Active 751358348 Problem Left kidney mass N28.89 Active 309 177937 Problem Spondylosis of cervical region without myelopath y or radiculopathy M47.812 Active 163694026 Problem Major depressive disorder, recurrent episode, moderate F33.1 Active 410166008 Problem Chronic esophagogastric ulcer K25.7 Active 20172157 Problem Pulmonary nodule R91.1 Active 427 213418 Problem GERD without esophagitis K21.9 Activ e 375784605 ALLERGIES Substance Reaction Event Type Date Status Ketorolac Tromethamine Unknown Drug Allergy Apr, Activ e Hydrocodone-Acetaminophen anaphylaxis Drug Allergy Apr, Ac tive Feldene cintron's palsy Drug Allergy Apr, Active Doxycycline Monohydrate anaphylaxis Drug Allergy Apr, Acti ve ENCOUNTERS Encounter Location Date Diagnosis [place] [address] [address] Jun, [place] [address] [address] May, Spondylosis of cervical hakan on without myelopathy or radiculopathy M47.812 [place] [address] [address] May, [place] [address] [address] May, [facility] [address] [address] May, Skin ulcer of buttock, limit ed to breakdown of skin L98.411 [facility] [address] [address] May, Fever, unspecified fever cau se R50.9 [facility] [address] [place] [id number] [place] [address] Apr, Acute cystitis with hematuri a N30.[address] [facility] [address] [address] Apr, [facility] [address] [address] Apr, Dysuria R30.0 and Acute cyst itis without hematuria N30.00 [facility] [address] [id number] [address] [place] [phone] Apr, [facility] [address] [id number] [address] [place] [phone] Apr, Spondylosis of cervical hakan on without myelopathy or radiculopathy M47.812 [facility] [address] [id number] [address] [place] [phone] Apr, [facility] [address] [id number] [address] [place] [phone] Apr, Other spondylosis with radic ulopathy, cervical region M47.22 [facility] [address] [id number] [address] [place] [phone] Apr, [facility] [address] [facility] [id number] [address] [place] [phone] Apr, Other spondylosis with radic ulopathy, cervical region M47.22 ; Other spondylosis with myelopathy, cervical region M47.12 and Renal cell carcinoma of left kidney C64.2 [facility] [address] [id number] [address] [place] [phone] Apr, [facility] [address] [id number] [address] [place] [phone] Apr, Lumbago with sciatica, right side M54.41 and Lumbago with sciatica, left side M54.42 [facility] [address] [id number] [address] [place] [phone] Mar, Type 2 diabetes mellitus wit hout [...] and Hyperlipidemia, unspecified E78.5 [facility] [place] [address] [address] Mar, Acute suppurative otitis med ia of both ears without spontaneous rupture of tympanic membranes, recurrence not specified H66.003 [place] [address] [address] Mar, [place] [address] [address] Mar, Retrolisthesis of vertebrae M43.10 [facility] [place] [address] [address] Mar, Low back pain, unspecified b ack pain laterality, unspecified chronicity, with sciatica presence unspecified M54.5 and Type 2 diabetes mellitus without complication, without long-term current use of insulin E11.9 [place] [address] [address] February, [place] [address] [address] February, Retrolisthesis of vertebrae M43.10 [facility] [address] [address] February, Strain of neck muscle, initi al encounter S16.1XXA [place] [address] [address] February, Type 2 diabetes mellitus wit hout [...] Seasonal allergic rhinitis due to pollen J30.1 [facility] [address] [facility] [id number] [address] [place] [address] February, Essential hypertension I10 ; Retrolisthesis of vertebrae M43.10 ; Body mass index (BMI) of 32.0-32.9 in adult Z68.32 and Type 2 diabetes mellitus without complication, without long-term current use of insulin E11.9 [facility] [address] [facility] [id number] [address] [place] [phone] February, Type 2 diabetes mellitus wit hout complication, without long-term current use of insulin E11.9 [place] [address] [address] [facility] [id number] [address] [place] [phone] Jan, Lumbago with sciatica, right side M54.41 [facility] [address] [facility] [id number] [address] [place] [phone] Jan, Sore throat J02.9 [facility] [address] [facility] [id number] [address] [place] [phone] Dec, [facility] [address] [id number] [address] [place] [phone] Dec, Type 2 diabetes mellitus wit hout complication, without long-term current use of insulin E11.9 [place] [address] [facility] [id number] [address] [place] [phone] Dec, [facility] [address] [id number] [address] [place] [phone] [address], [address] [facility] [address] [facility] [id number] [address] [place] [phone] Dec, [facility] [address] [facility] [id number] [address] [place] [phone] Dec, Type 2 diabetes mellitus wit hout [...] pollen J30.1 and GERD without esophagitis K21.9 [facility] [address] [id number] [address] [place] [phone] Dec, [facility] [address] [id number] [address] [place] [phone] Nov, [facility] [address] [id number] [address] [place] [phone] Nov, [facility] [address] [id number] [address] [place] [phone] Nov, [facility] [address] [id number] [address] [place] [phone] Nov, [facility] [address] [id number] [address] [place] [phone] Oct, [facility] [address] [id number] [address] [place] [phone] Oct, [facility] [address] [id number] [address] [place] [phone] 16 Oct, 2017 [facility] [address] [id number] [address] [place] [phone] 11 Oct, 2017 Well woman exam with routine gynecological exam Z01.419 ; Screen for STD (sexually transmitted disease) Z11.3 ; Screening breast examination Z12.31 ; Type 2 diabetes mellitus without complication, without long-term current use of insulin E11.9 ; Other obesity due to excess calories E66.09 and Body mass index (BMI) of 32.0-32.[address] [facility] [address] [facility] [id number] [address] [place] [phone] Oct, Ganglion of left wrist M67.[address] [facility] [address] [id number] [address] [place] [phone] Oct, [facility] [address] [id number] [address] [place] [phone] Oct, [facility] [address] [id number] [address] [place] [phone] Oct, Ganglion cyst M67.40 [facility] [address] [facility] [id number] [address] [place] [phone] Oct, [facility] [address] [facility] [id number] [address] [place] [phone] Sep, [facility] [address] [facility] [id number] [address] [place] [phone] Sep, Major depressive disorder, r ecurrent episode, moderate F33.1 [facility] [address] [id number] [address] [place] [phone] Sep, [facility] [address] [facility] [id number] [address] [place] [phone] Sep, Right renal mass N28.89 [facility] [address] [facility] [id number] [address] [place] [phone] Sep, [facility] [address] [facility] [id number] [address] [place] [phone] Sep, [facility] [address] [facility] [id number] [address] [place] [phone] Sep, Right renal mass N28.89 [facility] [address] [facility] [id number] [address] [place] [phone] Sep, [facility] [address] [facility] [id number] [address] [place] [phone] Sep, [facility] [address] [facility] [id number] [address] [place] [phone] Sep, [facility] [address] [facility] [id number] [address] [place] [phone] Sep, [facility] [address] [facility] [id number] [address] [place] [phone] Sep, [facility] [address] [facility] [id number] [address] [place] [phone] Sep, [facility] [address] [facility] [id number] [address] [place] [phone] Sep, Pulmonary nodule R91.1 [facility] [address] [facility] [id number] [address] [place] [phone] Aug, [facility] [address] [facility] [id number] [address] [place] [phone] Aug, Right renal mass N28.89 and Pulmonary nodule R91.1 [facility] [address] [facility] [id number] [address] [place] [phone] Aug, Essential hypertension I10 ; Right renal mass N28.89 ; Chronic gastric ulcer, unspecified whether gastric ulcer hemorrhage or perforation present K25.7 ; Spondylosis of cervical region without myelopathy or radiculopathy M47.812 ; Retrolisthesis of vertebrae M43.10 and Hospital discharge follow-up Z09 [facility] [address] [facility] [id number] [address] [place] [phone] Aug, [facility] [address] [facility] [id number] [address] [place] [phone] Aug, [facility] [address] [facility] [id number] [address] [place] [phone] Aug, [facility] [address] [facility] [id number] [address] [place] [phone] Aug, Pain syndrome, chronic G89.4 ; Lumbago with sciatica, right side M54.41 ; Lumbago with sciatica, left side M54.42 ; Other chronic pain G89.29 ; Cervicalgia M54.2 ; Controlled substance agreement signed Z79.899 and Essential hypertension I10 [facility] [address] [facility] [id number] [place] [address] Aug, [facility] [address] [facility] [id number] [address] [place] [address] Jul, Encounter to establish care Z76.89 ; [...] SOCIAL HISTORY Never Assessed REASON FOR VISIT UTI symptoms started yesterday JStrasserRN PLAN OF CARE Activity Details Follow Up if not improving or regular follow up with pcp Reason: VITAL SIGNS Height 68 in 2018-05-14 Weight 213.0 lbs 2018-05-14 Temperature 96.6 degrees Fahrenheit 2018-05-14 Heart Rate 70 bpm 2018-05-14 Respiratory Rate 20 2018-05-14 BMI 32.38 kg/m2 2018-05-14 Blood pressure systolic 130 mmHg 2018-05-14 Blood pressure diastolic 82 mmHg 2018-05-14 MEDICATIONS Medication Instructions Dosage Frequency Start Date End Date Duration S tatus Pyridium 200 MG Orally Three times a day 1 tablet after meals 8h 2 day(s) Active Onglyza 5 mg Orally Once a day 1 tablet 24h 30 Active Tizanidine HCl 4 MG Orally Three times a day 1 capsule as needed 8h Active PredniSONE (Connor) 20mg by oral route 2 times a day 1 tablet 12h Active Sertraline HCl 25 MG TAKE ONE TABLET BY MOUTH ONCE DAILY Active Oxycodone-Acetaminophen 7.5-325 MG Orally every 6 hrs 1 tablet as n eeded 6h Apr, May, 28 days Active Accu-Chek Soft Touch Lancets - as directed 8h February, 30 days Active Pioglitazone HCl-Metformin HCl 15-500 MG TAKE ONE TABLET BY MOUTH ONCE DAILY WITH A MEAL 30 Active Blood Glucose Test Strip - In Vitro 3 times a day as directed 8h February, Active Aspirin 81 MG Orally Once a day 1 tablet 24h Active Accu-Chek Soft Touch Device - as directed 8h February, Active Centrum Silver 50+Women - Active Sucralfate 1 GM Orally 4 times a day 1 tablet 6h Active Dexilant 60 mg Orally Once a day 1 capsule 24h 16 Aug, 2017 Active Gabapentin 300 MG Orally Once a day 1 capsule before bedtime 24h 30 Active Metoprolol Tartrate 100 MG TAKE ONE TABLET BY MOUTH TWICE DAILY WITH FOOD Active Macrobid 100 MG Orally every 12 hrs 1 capsule with food 12h 5 days Active PredniSONE 20 mg Orally Once a day 1 tablet 24h Apr, May, 21 days Active Fluticasone Propionate 50 MCG/ACT Nasally Once a day 1 spray in each nostril 24h Dec, Active Lipitor 10 MG TAKE ONE TABLET BY MOUTH ONCE DAILY 30 Active Atorvastatin Calcium 20 mg Orally Once a day 1 tablet 24h Dec, 18 Active Lisinopril 20 MG TAKE ONE TABLET BY MOUTH TWICE DAILY Active RESULTS No Results PROCEDURES Procedure Date Ordered Result Body Site URINALYSIS, AUTO, W/O SCOPE May 14, 2018 LAB NOT BILLED BY [facility] May 14, 2018 INSTRUCTIONS MEDICATIONS ADMINISTERED No Known Medications [...] polyp removal/colonoscopy Hospitalization History heart attack x3 [id number] 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
--- OUTSIDE RECORDS SUMMARY | 2020-01-21 19:07 | XMS REPORT ---
Author Author Amy BLANCAS Organization 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 3 Active 984571158 Problem Seasonal allergic rhinitis due to pollen J30.1 Active 65590115 Problem Metabolic disorder, unspecified E88.9 Active 780613108 Problem Skin ulcer of buttock, limited to breakdown of skin L98.411 Active 33254576 Problem Lumbago with sciatica, right side M54.41 Active 614562124213339 Problem Other spondylosis with myelopathy, cervical region M47.12 Active 41610758 Problem Lumbago with sciatica, left side M54.42 Active 658237126 Problem Type 2 diabetes mellitus wit hout complication, without long-term current use of insulin E11.9 Active 052612805 Problem Hyperlipidemia, unspecified E78.5 Ac tive 68614788 Problem Renal cell carcinoma of left kidney C64.2 Active 101691628 Problem Other spondylosis with radiculopathy, cervical region M47.22 Active 889775139 Problem Type 2 diabetes mellitus with other specified complication E11.69 Active 16394140909899 Problem Right renal mass N28.89 Active 309 313602 Problem Retrolisthesis of vertebrae M43.10 Ac tive 767831468 Problem Essential hypertension I10 Active 08960030 Problem Pain syndrome, chronic G89.4 Active 994770795 Problem Body mass index (BMI) of 32.0-32.9 in adult Z68.32 Active 930181760 Problem Other obesity due to excess calories E66.09 Active 320743370 Problem Left kidney mass N28.89 Active 309 096539 Problem Spondylosis of cervical region without myelopath y or radiculopathy M47.812 Active 232783779 Problem Major depressive disorder, recurrent episode, moderate F33.1 Active 011946926 Problem Chronic esophagogastric ulcer K25.7 Active 90938861 Problem Pulmonary nodule R91.1 Active 427 863865 Problem GERD without esophagitis K21.9 Activ e 109340480 ALLERGIES No Information ENCOUNTERS Encounter Location Date Diagnosis [facility] [address] [address] Jun, [facility] [address] [address] May, Spondylosis of cervical hakan on without myelopathy or radiculopathy M47.812 [place] [address] [address] May, [place] [address] [address] May, [facility] [address] [address] May, Skin ulcer of buttock, limit ed to breakdown of skin L98.411 [facility] [address] [address] May, Fever, unspecified fever cau se R50.9 [place] [address] [address] Apr, Acute cystitis with hematuri a N30.01 and Dehydration E86.0 [place] [address] [address] Apr, [facility] [address] [address] Apr, Dysuria R30.0 and Acute cyst itis without hematuria N30.00 [place] [address] [address] Apr, [facility] [address] [address] Apr, Spondylosis of cervical hkaan on without myelopathy or radiculopathy M47.812 [place] [address] [address] [place] [id number] [place] [address] Apr, [facility] [place] [address] [place] [id number] [address] [place] [address] Apr, Other spondylosis with radic ulopathy, cervical region M47.22 [place] [address] [address] [place] [id number] [address] [place] [address] Apr, [place] [address] [address] [place] [id number] [place] [address] Apr, Other spondylosis with radic ulopathy, cervical region M47.22 ; Other spondylosis with myelopathy, cervical region M47.12 and Renal cell carcinoma of left kidney C64.[address] [address] Apr, [place] [address] [address] [place] [id number] [place] [address] Apr, Lumbago with sciatica, right side M54.41 and Lumbago with sciatica, left side M54.42 [place] [address] [address] Mar, Type 2 diabetes mellitus wit hout [...] complication E11.69 and Hyperlipidemia, unspecified E78.5 [facility] [address] [address] Mar, Acute suppurative otitis med ia of both ears without spontaneous rupture of tympanic membranes, recurrence not specified H66.003 [place] [address] [address] Mar, [place] [address] [address] Mar, Retrolisthesis of vertebrae M43.10 [facility] [place] [address] [address] Mar, Low back pain, unspecified b ack pain laterality, unspecified chronicity, with sciatica presence unspecified M54.5 and Type 2 diabetes mellitus without complication, without long-term current use of insulin E11.9 [place] [address] [address] February, [address] [address] February, Retrolisthesis of vertebrae M43.10 [facility] [place] [address] [address] February, Strain of neck muscle, initi al encounter S16.1XXA [address] [address] February, Type 2 diabetes mellitus wit hout [...] Seasonal allergic rhinitis due to pollen J30.[address] [place] [address] February, Essential hypertension I10 ; Retrolisthesis of vertebrae M43.10 ; Body mass index (BMI) of 32.0-32.9 in adult Z68.32 and Type 2 diabetes mellitus without complication, without long-term current use of insulin E11.9 [facility] [address] [place] [id number] [place] [address] February, Type 2 diabetes mellitus wit hout complication, without long-term current use of insulin E11.9 [facility] [address] [facility] [id number] [address] [place] [address] Jan, Lumbago with sciatica, right side M54.41 [facility] [address] [facility] [id number] [address] [place] [address] Jan, Sore throat J02.9 [facility] [address] [facility] [id number] [address] [place] [address] Dec, [facility] [address] [facility] [id number] [address] [place] [address] Dec, Type 2 diabetes mellitus wit hout complication, without long-term current use of insulin E11.9 [place] [address] [address] [place] [id number] [place] [address] Dec, [facility] [address] [facility] [id number] [address] [place] [address] Dec, [place] [address] [address] [place] [id number] [place] [address] Dec, [place] [address] [facility] [id number] [address] [place] [address] Dec, Type 2 diabetes mellitus wit hout [...] and GERD without esophagitis K21.9 [place] [address] [facility] [id number] [address] [place] [address] Dec, [facility] [address] [id number] [address] [place] [address] Nov, [facility] [address] [id number] [address] [place] [address] Nov, [place] [address] [facility] [id number] [address] [place] [address] Nov, [place] [address] [address] [place] [id number] [place] [address] Nov, [place] [address] [facility] [id number] [address] [place] [address] Oct, [place] [address] [facility] [id number] [address] [place] [address] Oct, [place] [address] [facility] [id number] [address] [place] [address] Oct, [place] [address] [facility] [id number] [address] [place] [address] Oct, Well woman exam with routine gynecological exam Z01.419 ; Screen for STD (sexually transmitted disease) Z11.3 ; Screening breast examination Z12.31 ; Type 2 diabetes mellitus without complication, without long-term current use of insulin E11.9 ; Other obesity due to excess calories E66.09 and Body mass index (BMI) of 32.0-32.9 in adult Z68.32 [place] [address] [address] [place] [id number] [place] [address] Oct, Ganglion of left wrist M67.4 32 [place] [address] [address] [place] [id number] [place] [address] Oct, [facility] [address] [facility] [id number] [address] [place] [address] Oct, [facility] [address] [facility] [id number] [address] [place] [address] Oct, Ganglion cyst M67.40 [facility] [address] [facility] [id number] [address] [place] [address] Oct, [facility] [address] [facility] [id number] [address] [place] [address] Sep, [facility] [address] [facility] [id number] [address] [place] [phone] Sep, Major depressive disorder, r ecurrent episode, moderate F33.1 [facility] [address] [facility] [id number] [address] [place] [address] Sep, [facility] [address] [facility] [id number] [address] [place] [address] Sep, Right renal mass N28.89 [facility] [address] [facility] [id number] [address] [place] [address] Sep, [facility] [address] [facility] [id number] [address] [place] [address] Sep, [facility] [address] [facility] [id number] [address] [place] [address] Sep, Right renal mass N28.89 [facility] [address] [facility] [id number] [address] [place] [address] Sep, [facility] [address] [facility] [id number] [address] [place] [address] Sep, [facility] [address] [facility] [id number] [address] [place] [address] Sep, [facility] [address] [facility] [id number] [address] [place] [address] Sep, [facility] [address] [place] [id number] [address] [place] [address] Sep, [place] [address] [place] [id number] [address] [place] [address] Sep, [facility] [address] [place] [id number] [place] [address] Sep, Pulmonary nodule R91.1 [place] [address] [address] [place] [id number] [place] [address] Aug, [place] [address] [place] [id number] [place] [address] Aug, Right renal mass N28.89 and Pulmonary nodule R91.1 [place] [address] [address] [place] [id number] [place] [address] 16 Aug, 2017 Essential hypertension I10 ; Right renal mass N28.89 ; Chronic gastric ulcer, unspecified whether gastric ulcer hemorrhage or perforation present K25.7 ; Spondylosis of cervical region without myelopathy or radiculopathy M47.812 ; Retrolisthesis of vertebrae M43.10 and Hospital discharge follow-up Z09 [place] [address] [address] 14 Aug, 2017 [place] [address] [address] [place] [id number] [address] [place] [id number] 09 Aug, 2017 [place] [address] [place] [id number] [address] [place] [address] Aug, [place] [address] [address] [place] [id number] [place] [address] Aug, Pain syndrome, chronic G89.4 ; Lumbago with sciatica, right side M54.41 ; Lumbago with sciatica, left side M54.42 ; Other chronic pain G89.29 ; Cervicalgia M54.2 ; Controlled substance agreement signed Z79.899 and Essential hypertension I10 [place] [address] [address] [place] [id number] [address] [place] [address] Aug, [facility] [address] [facility] [id number] [address] [place] [address] Jul, Encounter to establish care Z76.89 ; [...] polyp removal/colonoscopy Hospitalization History heart attack x3 [phone] 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
--- OUTSIDE RECORDS SUMMARY | 2020-01-21 19:08 | XMS REPORT ---
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 3 Active 554236914 Problem Seasonal allergic rhinitis due to pollen J30.1 Active 66341635 Problem Metabolic disorder, unspecified E88.9 Active 603456723 Problem Skin ulcer of buttock, limited to breakdown of skin L98.411 Active 94032577 Problem Lumbago with sciatica, right side M54.41 Active 253298670763181 Problem Other spondylosis with myelopathy, cervical region M47.12 Active 87394341 Problem Lumbago with sciatica, left side M54.42 Active 844194041 Problem Type 2 diabetes mellitus wit hout complication, without long-term current use of insulin E11.9 Active 627948906 Problem Hyperlipidemia, unspecified E78.5 Ac tive 43560665 Problem Renal cell carcinoma of left kidney C64.2 Active 551001421 Problem Other spondylosis with radiculopathy, cervical region M47.22 Active 583473107 Problem Type 2 diabetes mellitus with other specified complication E11.69 Active 39479584377700 Problem Right renal mass N28.89 Active 309 504001 Problem Retrolisthesis of vertebrae M43.10 Ac tive 639873563 Problem Essential hypertension I10 Active 90359590 Problem Pain syndrome, chronic G89.4 Active 965614774 Problem Body mass index (BMI) of 32.0-32.9 in adult Z68.32 Active 673176157 Problem Other obesity due to excess calories E66.09 Active 949086800 Problem Left kidney mass N28.89 Active 309 676623 Problem Spondylosis of cervical region without myelopath y or radiculopathy M47.812 Active 508993015 Problem Major depressive disorder, recurrent episode, moderate F33.1 Active 427801537 Problem Chronic esophagogastric ulcer K25.7 Active 18552393 Problem Pulmonary nodule R91.1 Active 427 959117 Problem GERD without esophagitis K21.9 Activ e 769333164 ALLERGIES No Information ENCOUNTERS Encounter Location Date Diagnosis [facility] [address] [address] Jun, [facility] [address] [address] May, Spondylosis of cervical hakan on without myelopathy or radiculopathy M47.812 [place] [address] [address] May, [place] [address] [address] May, [facility] [address] [address] May, Skin ulcer of buttock, limit ed to breakdown of skin L98.411 [facility] [address] [address] May, Fever, unspecified fever cau se R50.9 [place] [address] [address] Apr, Acute cystitis with hematuri a N30.01 and Dehydration E86.0 [place] [address] [address] Apr, [facility] [address] [address] Apr, Dysuria R30.0 and Acute cyst itis without hematuria N30.00 [place] [address] [address] Apr, [facility] [address] [address] Apr, Spondylosis of cervical hakan on without myelopathy or radiculopathy M47.812 [place] [address] [address] [place] [id number] [place] [address] Apr, [facility] [place] [address] [place] [id number] [address] [place] [address] Apr, Other spondylosis with radic ulopathy, cervical region M47.22 [place] [address] [address] [place] [id number] [address] [place] [address] Apr, [place] [address] [place] [id number] [address] [place] [address] Apr, Other spondylosis with radic ulopathy, cervical region M47.22 ; Other spondylosis with myelopathy, cervical region M47.12 and Renal cell carcinoma of left kidney C64.[address] [address] Apr, [place] [address] [address] [place] [id number] [address] [place] [address] Apr, Lumbago with sciatica, right side M54.41 and Lumbago with sciatica, left side M54.42 [place] [address] [address] Mar, Type 2 diabetes mellitus wit hout [...] specified complication E11.69 and Hyperlipidemia, unspecified E78.5 [facility] [address] [address] Mar, Acute suppurative otitis med ia of both ears without spontaneous rupture of tympanic membranes, recurrence not specified H66.003 [place] [address] [address] Mar, [place] [address] [address] Mar, Retrolisthesis of vertebrae M43.10 [facility] [place] [address] [address] Mar, Low back pain, unspecified b ack pain laterality, unspecified chronicity, with sciatica presence unspecified M54.5 and Type 2 diabetes mellitus without complication, without long-term current use of insulin E11.9 [place] [address] [address] February, [address] [address] February, Retrolisthesis of vertebrae M43.10 [facility] [place] [address] [address] February, Strain of neck muscle, initi al encounter S16.1XXA [address] [address] February, Type 2 diabetes mellitus wit hout [...] Seasonal allergic rhinitis due to pollen J30.[address] [place] [address] February, Essential hypertension I10 ; Retrolisthesis of vertebrae M43.10 ; Body mass index (BMI) of 32.0-32.9 in adult Z68.32 and Type 2 diabetes mellitus without complication, without long-term current use of insulin E11.9 [facility] [address] [place] [id number] [address] [place] [address] February, Type 2 diabetes mellitus wit hout complication, without long-term current use of insulin E11.9 [facility] [address] [facility] [id number] [address] [place] [address] Jan, Lumbago with sciatica, right side M54.41 [facility] [address] [facility] [id number] [address] [place] [address] Jan, Sore throat J02.9 [facility] [address] [facility] [id number] [address] [place] [address] Dec, [facility] [address] [facility] [id number] [address] [place] [address] Dec, Type 2 diabetes mellitus wit hout complication, without long-term current use of insulin E11.9 [place] [address] [address] [place] [id number] [address] [place] [address] Dec, [facility] [address] [facility] [id number] [address] [place] [address] Dec, [place] [address] [place] [id number] [address] [place] [address] Dec, [place] [address] [facility] [id number] [address] [place] [address] Dec, Type 2 diabetes mellitus wit hout [...] pollen J30.1 and GERD without esophagitis K21.9 [place] [address] [facility] [id number] [address] [place] [address] Dec, [facility] [address] [id number] [address] [place] [address] Nov, [facility] [address] [id number] [address] [place] [address] Nov, [place] [address] [facility] [id number] [address] [place] [address] Nov, [place] [address] [place] [id number] [place] [address] Nov, [place] [address] [facility] [id number] [address] [place] [address] Oct, [place] [address] [facility] [id number] [address] [place] [address] Oct, [place] [address] [facility] [id number] [address] [place] [address] Oct, [place] [address] [address] [facility] [id number] [address] [place] [address] Oct, Well woman exam with routine gynecological exam Z01.419 ; Screen for STD (sexually transmitted disease) Z11.3 ; Screening breast examination Z12.31 ; Type 2 diabetes mellitus without complication, without long-term current use of insulin E11.9 ; Other obesity due to excess calories E66.09 and Body mass index (BMI) of 32.0-32.9 in adult Z68.32 [place] [address] [address] [place] [id number] [place] [address] Oct, Ganglion of left wrist M67.4 32 [place] [address] [address] [place] [id number] [place] [address] Oct, [facility] [address] [facility] [id number] [address] [place] [address] Oct, [facility] [address] [facility] [id number] [address] [place] [address] Oct, Ganglion cyst M67.40 [facility] [address] [facility] [id number] [address] [place] [address] Oct, [facility] [address] [facility] [id number] [address] [place] [address] Sep, [facility] [address] [facility] [id number] [address] [place] [address] Sep, Major depressive disorder, r ecurrent episode, moderate F33.1 [facility] [address] [facility] [id number] [address] [place] [address] Sep, [facility] [address] [facility] [id number] [address] [place] [address] Sep, Right renal mass N28.89 [facility] [address] [facility] [id number] [address] [place] [address] Sep, [facility] [address] [facility] [id number] [address] [place] [address] Sep, [facility] [address] [facility] [id number] [address] [place] [address] Sep, Right renal mass N28.89 [facility] [address] [facility] [id number] [address] [place] [address] Sep, [facility] [address] [facility] [id number] [address] [place] [address] Sep, [facility] [address] [facility] [id number] [address] [place] [address] Sep, [facility] [address] [facility] [id number] [address] [place] [address] Sep, [facility] [address] [place] [id number] [address] [place] [address] Sep, [place] [address] [place] [id number] [address] [place] [address] Sep, [facility] [address] [place] [id number] [address] [place] [address] Sep, Pulmonary nodule R91.1 [place] [address] [address] [place] [id number] [place] [address] Aug, [place] [address] [place] [id number] [place] [address] Aug, Right renal mass N28.89 and Pulmonary nodule R91.1 [place] [address] [address] [place] [id number] [place] [address] 16 Aug, 2017 Essential hypertension I10 ; Right renal mass N28.89 ; Chronic gastric ulcer, unspecified whether gastric ulcer hemorrhage or perforation present K25.7 ; Spondylosis of cervical region without myelopathy or radiculopathy M47.812 ; Retrolisthesis of vertebrae M43.10 and Hospital discharge follow-up Z09 [place] [address] [address] 14 Aug, 2017 [place] [address] [address] [place] [id number] [address] [place] [address] 09 Aug, 2017 [place] [address] [place] [id number] [place] [address] Aug, [place] [address] [place] [id number] [place] [address] Aug, Pain syndrome, chronic G89.4 ; Lumbago with sciatica, right side M54.41 ; Lumbago with sciatica, left side M54.42 ; Other chronic pain G89.29 ; Cervicalgia M54.2 ; Controlled substance agreement signed Z79.899 and Essential hypertension I10 [place] [address] [address] [place] [id number] [place] [address] Aug, [facility] [address] [facility] [id number] [address] [place] [address] Jul, Encounter to establish care Z76.89 ; [...] polyp removal/colonoscopy Hospitalization History heart attack x3 [id number] 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
--- OUTSIDE RECORDS SUMMARY | 2020-01-21 19:08 | XMS REPORT ---
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 3 Active 933048579 Problem Seasonal allergic rhinitis due to pollen J30.1 Active 29585793 Problem Metabolic disorder, unspecified E88.9 Active 448290841 Problem Skin ulcer of buttock, limited to breakdown of skin L98.411 Active 01168711 Problem Lumbago with sciatica, right side M54.41 Active [id number] Problem Other spondylosis with myelopathy, cervical region M47.12 Active 39702859 Problem Lumbago with sciatica, left side M54.42 Active 482655226 Problem Type 2 diabetes mellitus wit hout complication, without long-term current use of insulin E11.9 Active 944676548 Problem Hyperlipidemia, unspecified E78.5 Ac tive 09477762 Problem Renal cell carcinoma of left kidney C64.2 Active 343819093 Problem Other spondylosis with radiculopathy, cervical region M47.22 Active 799352293 Problem Type 2 diabetes mellitus with other specified complication E11.69 Active 40786954602437 Problem Right renal mass N28.89 Active 309 504287 Problem Retrolisthesis of vertebrae M43.10 Ac tive 490863281 Problem Essential hypertension I10 Active 97929811 Problem Pain syndrome, chronic G89.4 Active 928507735 Problem Body mass index (BMI) of 32.0-32.9 in adult Z68.32 Active 210260480 Problem Other obesity due to excess calories E66.09 Active 820739398 Problem Left kidney mass N28.89 Active 309 872509 Problem Spondylosis of cervical region without myelopath y or radiculopathy M47.812 Active 348841400 Problem Major depressive disorder, recurrent episode, moderate F33.1 Active 449598344 Problem Chronic esophagogastric ulcer K25.7 Active 62513867 Problem Pulmonary nodule R91.1 Active 427 602252 Problem GERD without esophagitis K21.9 Activ e 040905717 ALLERGIES No Information ENCOUNTERS Encounter Location Date Diagnosis [facility] [address] [address] Jun, [facility] [address] [address] May, Spondylosis of cervical hakan on without myelopathy or radiculopathy M47.812 [place] [address] [address] May, [place] [address] [address] May, [facility] [address] [address] May, Skin ulcer of buttock, limit ed to breakdown of skin L98.411 [facility] [address] [address] May, Fever, unspecified fever cau se R50.9 [place] [address] [address] Apr, Acute cystitis with hematuri a N30.01 and Dehydration E86.0 [place] [address] [address] Apr, [facility] [address] [address] Apr, Dysuria R30.0 and Acute cyst itis without hematuria N30.00 [place] [address] [address] Apr, [facility] [address] [address] Apr, Spondylosis of cervical hakan on without myelopathy or radiculopathy M47.812 [place] [address] [address] [place] [id number] [place] [address] Apr, [facility] [place] [id number] [place] [id number] [place] [address] Apr, Other spondylosis with radic ulopathy, cervical region M47.22 [place] [address] [address] [place] [id number] [place] [address] Apr, [place] [address] [place] [id number] [place] [address] Apr, Other spondylosis with radic ulopathy, cervical region M47.22 ; Other spondylosis with myelopathy, cervical region M47.12 and Renal cell carcinoma of left kidney C64.[address] [address] Apr, [place] [address] [address] [place] [id number] [place] [address] Apr, Lumbago with sciatica, right side M54.41 and Lumbago with sciatica, left side M54.42 [place] [address] [address] Mar, Type 2 diabetes mellitus wit hout [...] E78.5 [facility] [address] [address] Mar, Acute suppurative otitis med ia of both ears without spontaneous rupture of tympanic membranes, recurrence not specified H66.003 [place] [address] [address] Mar, [place] [address] [address] Mar, Retrolisthesis of vertebrae M43.10 [facility] [place] [address] [address] Mar, Low back pain, unspecified b ack pain laterality, unspecified chronicity, with sciatica presence unspecified M54.5 and Type 2 diabetes mellitus without complication, without long-term current use of insulin E11.9 [place] [address] [address] February, [address] [address] February, Retrolisthesis of vertebrae M43.10 [facility] [place] [address] [address] February, Strain of neck muscle, initi al encounter S16.1XXA [address] [address] February, Type 2 diabetes mellitus wit hout [...] Seasonal allergic rhinitis due to pollen J30.[address] [place] [address] February, Essential hypertension I10 ; Retrolisthesis of vertebrae M43.10 ; Body mass index (BMI) of 32.0-32.9 in adult Z68.32 and Type 2 diabetes mellitus without complication, without long-term current use of insulin E11.9 [facility] [address] [place] [id number] [place] [address] February, Type 2 diabetes mellitus wit hout complication, without long-term current use of insulin E11.9 [facility] [address] [facility] [id number] [address] [place] [address] Jan, Lumbago with sciatica, right side M54.41 [facility] [address] [facility] [id number] [address] [place] [address] Jan, Sore throat J02.9 [facility] [address] [facility] [id number] [address] [place] [address] Dec, [facility] [address] [facility] [id number] [address] [place] [address] Dec, Type 2 diabetes mellitus wit hout complication, without long-term current use of insulin E11.9 [place] [address] [place] [id number] [place] [address] Dec, [facility] [address] [facility] [id number] [address] [place] [address] Dec, [place] [address] [place] [id number] [place] [address] Dec, [place] [address] [facility] [id number] [address] [place] [address] Dec, Type 2 diabetes mellitus wit hout [...] pollen J30.1 and GERD without esophagitis K21.9 [place] [id number] [facility] [id number] [address] [place] [address] Dec, [facility] [address] [id number] [address] [place] [address] Nov, [facility] [address] [id number] [address] [place] [address] Nov, [place] [address] [facility] [id number] [address] [place] [address] Nov, [place] [address] [place] [id number] [place] [address] Nov, [place] [address] [facility] [id number] [address] [place] [address] Oct, [place] [address] [facility] [id number] [address] [place] [address] Oct, [place] [address] [facility] [id number] [address] [place] [address] Oct, [place] [address] [facility] [id number] [address] [place] [address] Oct, Well woman exam with routine gynecological exam Z01.419 ; Screen for STD (sexually transmitted disease) Z11.3 ; Screening breast examination Z12.31 ; Type 2 diabetes mellitus without complication, without long-term current use of insulin E11.9 ; Other obesity due to excess calories E66.09 and Body mass index (BMI) of 32.0-32.9 in adult Z68.32 [place] [address] [address] [place] [id number] [place] [address] Oct, Ganglion of left wrist M67.4 [address] [place] [address] [place] [id number] [place] [address] Oct, [facility] [address] [facility] [id number] [address] [place] [address] Oct, [facility] [address] [facility] [id number] [address] [place] [address] Oct, Ganglion cyst M67.40 [facility] [address] [facility] [id number] [address] [place] [address] Oct, [facility] [address] [facility] [id number] [address] [place] [address] Sep, [facility] [address] [facility] [id number] [address] [place] [address] Sep, Major depressive disorder, r ecurrent episode, moderate F33.1 [facility] [address] [facility] [id number] [address] [place] [address] Sep, [facility] [address] [facility] [id number] [address] [place] [address] Sep, Right renal mass N28.89 [facility] [address] [facility] [id number] [address] [place] [address] Sep, [facility] [address] [facility] [id number] [address] [place] [address] Sep, [facility] [address] [facility] [id number] [address] [place] [address] Sep, Right renal mass N28.89 [facility] [address] [facility] [id number] [address] [place] [address] Sep, [facility] [address] [facility] [id number] [address] [place] [address] Sep, [facility] [address] [facility] [id number] [address] [place] [address] Sep, [facility] [address] [facility] [id number] [address] [place] [address] Sep, [facility] [address] [place] [id number] [place] [address] Sep, [place] [address] [place] [id number] [place] [address] Sep, [facility] [address] [place] [id number] [place] [address] Sep, Pulmonary nodule R91.1 [place] [address] [place] [id number] [place] [address] Aug, [place] [address] [place] [id number] [place] [address] Aug, Right renal mass N28.89 and Pulmonary nodule R91.1 [place] [address] [address] [place] [id number] [place] [address] 16 Aug, 2017 Essential hypertension I10 ; Right renal mass N28.89 ; Chronic gastric ulcer, unspecified whether gastric ulcer hemorrhage or perforation present K25.7 ; Spondylosis of cervical region without myelopathy or radiculopathy M47.812 ; Retrolisthesis of vertebrae M43.10 and Hospital discharge follow-up Z09 [place] [address] [address] 14 Aug, 2017 [place] [address] [place] [id number] [place] [address] 09 Aug, 2017 [place] [address] [place] [id number] [place] [address] Aug, [place] [address] [place] [id number] [place] [address] Aug, Pain syndrome, chronic G89.4 ; Lumbago with sciatica, right side M54.41 ; Lumbago with sciatica, left side M54.42 ; Other chronic pain G89.29 ; Cervicalgia M54.2 ; Controlled substance agreement signed Z79.899 and Essential hypertension I10 [place] [address] [address] [place] [id number] [place] [address] Aug, [facility] [address] [facility] [id number] [address] [place] [address] Jul, Encounter to establish care Z76.89 ; [...] SOCIAL HISTORY Never Assessed REASON FOR VISIT Pain PLAN OF CARE VITAL SIGNS MEDICATIONS Unknown [...] polyp removal/colonoscopy Hospitalization History heart attack x3 [id number] 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
--- OUTSIDE RECORDS SUMMARY | 2020-01-21 19:08 | XMS REPORT ---
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 Active 222000029 Problem Seasonal allergic rhinitis due to pollen J30.1 Active 52016828 Problem Metabolic disorder, unspecified E88.9 Active 792514924 Problem Skin ulcer of buttock, limited to breakdown of skin L98.411 Active 75850213 Problem Lumbago with sciatica, right side M54.41 Active 570641803276376 Problem Other spondylosis with myelopathy, 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10 Ac tive 171401721 Problem Essential hypertension I10 Active 68540209 Problem Pain syndrome, chronic G89.4 Active 367935275 Problem Body mass index (BMI) of 32.0-32.9 in adult Z68.32 Active 885495952 Problem Other obesity due to excess calories E66.09 Active 460469138 Problem Left kidney mass N28.89 Active 309 941145 Problem Spondylosis of cervical region without myelopath y or radiculopathy M47.812 Active 474566889 Problem Major depressive disorder, recurrent episode, moderate F33.1 Active 819377642 Problem Chronic esophagogastric ulcer K25.7 Active 00289866 Problem Pulmonary nodule R91.1 Active 427 251263 Problem GERD without esophagitis K21.9 Activ e 847151051 ALLERGIES Substance Reaction Event Type Date Status Ketorolac Tromethamine Unknown Drug Allergy Mar, Activ e Hydrocodone-Acetaminophen anaphylaxis Drug Allergy Mar, Ac tive Feldene cintron's palsy Drug Allergy Mar, Active Doxycycline Monohydrate anaphylaxis Drug Allergy Mar, Acti ve ENCOUNTERS Encounter Location Date Diagnosis [place] [address] [address] Jun, [place] [address] [address] May, Spondylosis of cervical hakan on without myelopathy or radiculopathy M47.812 [place] [address] [address] May, [place] [address] [address] May, [facility] [place] [address] [address] May, Skin ulcer of buttock, limit ed to breakdown of skin L98.411 [facility] [place] [address] [address] May, Fever, unspecified fever cau se R50.9 [place] [address] [address] Apr, Acute cystitis with hematuri a N30.01 and Dehydration E86.0 [place] [address] [address] Apr, [facility] [address] [address] Apr, Dysuria R30.0 and Acute cyst itis without hematuria N30.00 [facility] [address] [id number] [address] [place] [phone] Apr, [facility] [address] [id number] [address] [place] [phone] Apr, Spondylosis of cervical hakan on without myelopathy or radiculopathy M47.812 [facility] [address] [id number] [address] [place] [id number] Apr, [facility] [address] [id number] [address] [place] [id number] Apr, Other spondylosis with radic ulopathy, cervical region M47.22 [facility] [address] [id number] [address] [place] [phone] Apr, [facility] [address] [id number] [address] [place] [phone] Apr, Other spondylosis with radic ulopathy, cervical region M47.22 ; Other spondylosis with myelopathy, cervical region M47.12 and Renal cell carcinoma of left kidney C64.2 [facility] [address] [id number] [address] [place] [phone] Apr, [facility] [address] [id number] [address] [place] [phone] Apr, Lumbago with sciatica, right side M54.41 and Lumbago with sciatica, left side M54.42 [facility] [address] [id number] [address] [place] [phone] Mar, Type 2 diabetes mellitus wit hout [...] specified complication E11.69 and Hyperlipidemia, unspecified E78.5 [facility] [place] [address] [address] Mar, Acute suppurative otitis med ia of both ears without spontaneous rupture of tympanic membranes, recurrence not specified H66.003 [place] [address] [address] Mar, [place] [address] [address] Mar, Retrolisthesis of vertebrae M43.10 [facility] [place] [address] [address] Mar, Low back pain, unspecified b ack pain laterality, unspecified chronicity, with sciatica presence unspecified M54.5 and Type 2 diabetes mellitus without complication, without long-term current use of insulin E11.9 [place] [address] [address] February, [address] [address] February, Retrolisthesis of vertebrae M43.10 [facility] [place] [address] [address] February, Strain of neck muscle, initi al encounter S16.1XXA [place] [address] [address] February, Type 2 diabetes mellitus wit hout [...] Seasonal allergic rhinitis due to pollen J30.1 [facility] [address] [facility] [id number] [address] [place] [id number] February, Essential hypertension I10 ; Retrolisthesis of vertebrae M43.10 ; Body mass index (BMI) of 32.0-32.9 in adult Z68.32 and Type 2 diabetes mellitus without complication, without long-term current use of insulin E11.9 [facility] [address] [facility] [id number] [address] [place] [phone] February, Type 2 diabetes mellitus wit hout complication, without long-term current use of insulin E11.9 [place] [address] [address] [facility] [id number] [address] [place] [phone] Jan, Lumbago with sciatica, right side M54.41 [facility] [address] [facility] [id number] [address] [place] [phone] Jan, Sore throat J02.9 [facility] [address] [facility] [id number] [address] [place] [phone] Dec, [facility] [address] [facility] [id number] [address] [place] [phone] Dec, Type 2 diabetes mellitus wit hout complication, without long-term current use of insulin E11.9 [place] [address] [address] [facility] [id number] [address] [place] [phone] Dec, [facility] [address] [facility] [id number] [address] [place] [phone] Dec, [facility] [address] [facility] [id number] [address] [place] [phone] Dec, [facility] [address] [facility] [id number] [address] [place] [phone] Dec, Type 2 diabetes mellitus wit hout [...] and GERD without esophagitis K21.9 [facility] [address] [id number] [address] [place] [phone] Dec, [facility] [address] [id number] [address] [place] [phone] Nov, [facility] [address] [id number] [address] [place] [phone] Nov, [facility] [address] [id number] [address] [place] [id number] Nov, [facility] [address] [id number] [address] [place] [phone] Nov, [facility] [address] [id number] [address] [place] [id number] Oct, [facility] [address] [id number] [address] [place] [phone] Oct, [facility] [address] [id number] [address] [place] [id number] 16 Oct, 2017 [facility] [address] [id number] [address] [place] [phone] 11 Oct, 2017 Well woman exam with routine gynecological exam Z01.419 ; Screen for STD (sexually transmitted disease) Z11.3 ; Screening breast examination Z12.31 ; Type 2 diabetes mellitus without complication, without long-term current use of insulin E11.9 ; Other obesity due to excess calories E66.09 and Body mass index (BMI) of 32.0-32.9 in adult Z68.32 [facility] [address] [id number] [address] [place] [phone] Oct, Ganglion of left wrist M67.4 32 [facility] [address] [id number] [address] [place] [id number] Oct, [facility] [address] [facility] [id number] [address] [place] [id number] Oct, [facility] [address] [id number] [address] [place] [phone] Oct, Ganglion cyst M67.40 [facility] [address] [id number] [address] [place] [phone] Oct, [facility] [address] [facility] [id number] [address] [place] [phone] Sep, [facility] [address] [facility] [id number] [address] [place] [phone] Sep, Major depressive disorder, r ecurrent episode, moderate F33.1 [facility] [address] [id number] [address] [place] [phone] Sep, [facility] [address] [facility] [id number] [address] [place] [phone] Sep, Right renal mass N28.89 [facility] [address] [facility] [id number] [address] [place] [phone] Sep, [facility] [address] [facility] [id number] [address] [place] [phone] Sep, [facility] [address] [facility] [id number] [address] [place] [phone] Sep, Right renal mass N28.89 [facility] [address] [facility] [id number] [address] [place] [phone] Sep, [facility] [address] [facility] [id number] [address] [place] [phone] Sep, [facility] [address] [facility] [id number] [address] [place] [phone] Sep, [facility] [address] [facility] [id number] [address] [place] [phone] Sep, [facility] [address] [facility] [id number] [address] [place] [phone] Sep, [facility] [address] [place] [id number] [address] [place] [phone] Sep, [facility] [address] [facility] [id number] [address] [place] [phone] Sep, Pulmonary nodule R91.1 [facility] [address] [place] [id number] [address] [place] [phone] Aug, [facility] [address] [place] [id number] [address] [place] [phone] Aug, Right renal mass N28.89 and Pulmonary nodule R91.1 [facility] [address] [place] [id number] [address] [place] [id number] Aug, Essential hypertension I10 ; Right renal mass N28.89 ; Chronic gastric ulcer, unspecified whether gastric ulcer hemorrhage or perforation present K25.7 ; Spondylosis of cervical region without myelopathy or radiculopathy M47.812 ; Retrolisthesis of vertebrae M43.10 and Hospital discharge follow-up Z09 [place] [address] [address] [place] [id number] [address] [place] [phone] Aug, [facility] [address] [place] [id number] [address] [place] [phone] Aug, [facility] [address] [place] [id number] [address] [place] [phone] Aug, [facility] [address] [place] [id number] [address] [place] [phone] Aug, Pain syndrome, chronic G89.4 ; Lumbago with sciatica, right side M54.41 ; Lumbago with sciatica, left side M54.42 ; Other chronic pain G89.29 ; Cervicalgia M54.2 ; Controlled substance agreement signed Z79.899 and Essential hypertension I10 [facility] [address] [facility] [id number] [address] [place] [phone] Aug, [facility] [address] [facility] [id number] [address] [place] [id number] Jul, Encounter to establish care Z76.89 ; [...] HISTORY Never Assessed REASON FOR VISIT neck pain-Silvano, Pt states she is on antibiotic for an upper respiratory in [facility]. Went to ER 04/10 for lower back pain. PLAN OF CARE Activity Details Follow Up 3 Months, prn Reason:CHM/DM Pending Test A1C (IN HOUSE) VITAL SIGNS Height 68 in 2018-04-14 Weight 216.6 lbs 2018-04-14 Heart Rate 70 bpm 2018-04-14 Respiratory Rate 20 2018-04-14 BMI 32.93 kg/m2 2018-04-14 Blood pressure systolic 125 mmHg 2018-04-14 Blood pressure diastolic 80 mmHg 2018-04-14 MEDICATIONS Medication Instructions Dosage Frequency Start Date End Date Duration S tatus Onglyza 5 mg Orally Once a day 1 tablet 24h Active Accu-Chek Soft Touch Device - as directed 8h February, Active Sucralfate 1 GM Orally 4 times a day 1 tablet 6h Active Amoxicillin 875 MG Orally every 12 hrs 1 tablet 12h 23 Mar, 201 8 3 Apr, 2018 10 day(s) Active Lisinopril 20 MG TAKE ONE TABLET BY MOUTH TWICE DAILY Active Tizanidine HCl 4 MG Orally Three times a day 1 capsule as needed 8h Active Sertraline HCl 25 MG TAKE ONE TABLET BY MOUTH ONCE DAILY Active Aspirin 81 MG Orally Once a day 1 tablet 24h Active Metoprolol Tartrate 100 MG TAKE ONE TABLET BY MOUTH TWICE DAILY WITH FOOD Active Gabapentin 300 MG Orally Once a day 1 capsule before bedtime 24h Active Blood Glucose Test Strip - In Vitro 3 times a day as directed 8h February, Active Centrum Silver 50+Women - Active Oxycodone-Acetaminophen 7.5-325 MG Orally every 6 hrs 1 tablet as n eeded 6h Mar, Active Pioglitazone HCl-Metformin HCl 15-500 MG TAKE ONE TABLET BY MOUTH ONCE DAILY WITH A MEAL Active Dexilant 60 mg Orally Once a day 1 capsule 24h Aug, Active Atorvastatin Calcium 20 mg Orally Once a day 1 tablet 24h Dec, 18 Active Accu-Chek Soft Touch Lancets - as directed 8h February, 30 days Active Fluticasone Propionate 50 MCG/ACT Nasally Once a day 1 spray in each nostril 24h Dec, Active RESULTS No Results PROCEDURES Procedure Date Ordered Result Body Site GLYCATED HEMOGLOBIN TEST April 14, [address] 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
--- OUTSIDE RECORDS SUMMARY | 2020-01-21 19:08 | XMS REPORT ---
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 Active 416117010 Problem Seasonal allergic rhinitis due to pollen J30.1 Active 33702126 Problem Metabolic disorder, unspecified E88.9 Active 050842746 Problem Skin ulcer of buttock, limited to breakdown of skin L98.411 Active 61212206 Problem Lumbago with sciatica, right side M54.41 Active 089841555539780 Problem Other spondylosis with myelopathy, cervical region M47.12 Active 87561326 Problem Lumbago with sciatica, left side M54.42 Active 804403172 Problem Type 2 diabetes mellitus wit hout complication, without long-term current use of insulin E11.9 Active 295797924 Problem Hyperlipidemia, unspecified E78.5 Ac tive 24086865 Problem Renal cell carcinoma of left kidney C64.2 Active 624229459 Problem Other spondylosis with radiculopathy, cervical region M47.22 Active 696579258 Problem Type 2 diabetes mellitus with other specified complication E11.69 Active 15118327627764 Problem Right renal mass N28.89 Active 309 628608 Problem Retrolisthesis of vertebrae M43.10 Ac tive 887171642 Problem Essential hypertension I10 Active 23119847 Problem Pain syndrome, chronic G89.4 Active 274970495 Problem Body mass index (BMI) of 32.0-32.9 in adult Z68.32 Active 006883412 Problem Other obesity due to excess calories E66.09 Active 680813320 Problem Left kidney mass N28.89 Active 309 995449 Problem Spondylosis of cervical region without myelopath y or radiculopathy M47.812 Active 388582217 Problem Major depressive disorder, recurrent episode, moderate F33.1 Active 483443932 Problem Chronic esophagogastric ulcer K25.7 Active 46440746 Problem Pulmonary nodule R91.1 Active 427 624117 Problem GERD without esophagitis K21.9 Activ e 543680086 ALLERGIES No Information ENCOUNTERS Encounter Location Date Diagnosis [place] [address] [address] 17 Jun, 2018 [place] [address] [address] Jun, [place] [address] [address] May, Spondylosis of cervical hakan on without myelopathy or radiculopathy M47.812 [place] [address] [address] May, [place] [address] [address] May, [facility] [address] [address] May, Skin ulcer of buttock, limit ed to breakdown of skin L98.411 [facility] [place] [address] [address] May, Fever, unspecified fever cau se R50.9 [place] [address] [address] Apr, Acute cystitis with hematuri a N30.01 and Dehydration E86.0 [place] [address] [address] Apr, [facility] [address] [address] Apr, Dysuria R30.0 and Acute cyst itis without hematuria N30.00 [place] [address] [address] Apr, [facility] [address] [facility] [id number] [address] [place] [address] Apr, Spondylosis of cervical hakan on without myelopathy or radiculopathy M47.812 [facility] [address] [id number] [address] [place] [address] Apr, [facility] [address] [id number] [address] [place] [address] Apr, Other spondylosis with radic ulopathy, cervical region M47.22 [facility] [address] [id number] [address] [place] [address] Apr, [facility] [address] [facility] [id number] [address] [place] [address] Apr, Other spondylosis with radic ulopathy, cervical region M47.22 ; Other spondylosis with myelopathy, cervical region M47.12 and Renal cell carcinoma of left kidney C64.2 [facility] [address] [facility] [id number] [address] [place] [address] Apr, [place] [address] [facility] [id number] [address] [place] [address] Apr, Lumbago with sciatica, right side M54.41 and Lumbago with sciatica, left side M54.42 [place] [address] [facility] [id number] [address] [place] [address] Mar, Type 2 diabetes mellitus wit hout [...] unspecified E78.5 [facility] [place] [address] [address] Mar, Acute suppurative otitis med ia of both ears without spontaneous rupture of tympanic membranes, recurrence not specified H66.003 [place] [address] [address] Mar, [place] [address] [address] Mar, Retrolisthesis of vertebrae M43.10 [facility] [place] [address] [address] Mar, Low back pain, unspecified b ack pain laterality, unspecified chronicity, with sciatica presence unspecified M54.5 and Type 2 diabetes mellitus without complication, without long-term current use of insulin E11.9 [place] [address] [address] February, [place] [address] [address] February, Retrolisthesis of vertebrae M43.10 [place] [address] [address] February, Strain of neck muscle, initi al encounter S16.1XXA [address] [address] February, Type 2 diabetes mellitus wit hout [...] due to pollen J30.1 [facility] [address] [facility] [id number] [address] [place] [address] February, Essential hypertension I10 ; Retrolisthesis of vertebrae M43.10 ; Body mass index (BMI) of 32.0-32.9 in adult Z68.32 and Type 2 diabetes mellitus without complication, without long-term current use of insulin E11.9 [place] [address] [facility] [id number] [address] [place] [address] February, Type 2 diabetes mellitus wit hout complication, without long-term current use of insulin E11.9 [place] [address] [facility] [id number] [address] [place] [address] Jan, Lumbago with sciatica, right side M54.41 [facility] [address] [facility] [id number] [address] [place] [address] Jan, Sore throat J02.9 [facility] [address] [facility] [id number] [address] [place] [address] Dec, [facility] [address] [facility] [id number] [address] [place] [address] Dec, Type 2 diabetes mellitus wit hout complication, without long-term current use of insulin E11.9 [place] [address] [facility] [id number] [address] [place] [address] Dec, [facility] [address] [facility] [id number] [address] [place] [address] Dec, [facility] [address] [facility] [id number] [address] [place] [address] Dec, [place] [address] [facility] [id number] [address] [place] [address] Dec, Type 2 diabetes mellitus wit hout [...] GERD without esophagitis K21.9 [facility] [address] [id number] [address] [place] [address] Dec, [facility] [address] [id number] [address] [place] [address] Nov, [facility] [address] [id number] [address] [place] [address] Nov, [facility] [address] [facility] [id number] [address] [place] [address] Nov, [facility] [address] [id number] [address] [place] [address] Nov, [facility] [address] [id number] [address] [place] [address] Oct, [facility] [address] [id number] [address] [place] [address] Oct, [facility] [address] [id number] [address] [place] [address] Oct, [place] [address] [facility] [id number] [address] [place] [address] Oct, Well woman exam with routine gynecological exam Z01.419 ; Screen for STD (sexually transmitted disease) Z11.3 ; Screening breast examination Z12.31 ; Type 2 diabetes mellitus without complication, without long-term current use of insulin E11.9 ; Other obesity due to excess calories E66.09 and Body mass index (BMI) of 32.0-32.9 in adult Z68.32 [facility] [address] [facility] [id number] [address] [place] [address] Oct, Ganglion of left wrist M67.4 32 [facility] [address] [id number] [address] [place] [address] Oct, [facility] [address] [facility] [id number] [address] [place] [address] Oct, [facility] [address] [facility] [id number] [address] [place] [address] Oct, Ganglion cyst M67.40 [facility] [address] [id number] [address] [place] [address] Oct, [facility] [address] [facility] [id number] [address] [place] [address] Sep, [facility] [address] [facility] [id number] [address] [place] [address] Sep, Major depressive disorder, r ecurrent episode, moderate F33.1 [facility] [address] [id number] [address] [place] [address] Sep, [facility] [address] [facility] [id number] [address] [place] [address] Sep, Right renal mass N28.89 [facility] [address] [facility] [id number] [address] [place] [address] Sep, [facility] [address] [facility] [id number] [address] [place] [address] Sep, [facility] [address] [facility] [id number] [address] [place] [address] Sep, Right renal mass N28.89 [facility] [address] [facility] [id number] [address] [place] [address] Sep, [facility] [address] [facility] [id number] [address] [place] [address] Sep, [facility] [address] [facility] [id number] [address] [place] [address] Sep, [facility] [address] [place] [id number] [address] [place] [address] Sep, [facility] [address] [place] [id number] [place] [address] Sep, [facility] [address] [place] [id number] [address] [place] [address] Sep, [facility] [address] [address] Sep, Pulmonary nodule R91.1 [facility] [address] [place] [id number] [place] [address] Aug, [place] [address] [place] [id number] [place] [address] Aug, Right renal mass N28.89 and Pulmonary nodule R91.1 [place] [address] [address] Aug, Essential hypertension I10 ; Right renal mass N28.89 ; Chronic gastric ulcer, unspecified whether gastric ulcer hemorrhage or perforation present K25.7 ; Spondylosis of cervical region without myelopathy or radiculopathy M47.812 ; Retrolisthesis of vertebrae M43.10 and Hospital discharge follow-up Z09 [place] [id number] [place] [address] 14 Aug, 2017 [place] [address] [place] [id number] [place] [address] Aug, [facility] [address] [place] [id number] [address] [place] [address] Aug, [place] [address] [address] Aug, Pain syndrome, chronic G89.4 ; Lumbago with sciatica, right side M54.41 ; Lumbago with sciatica, left side M54.42 ; Other chronic pain G89.29 ; Cervicalgia M54.2 ; Controlled substance agreement signed Z79.899 and Essential hypertension I10 [facility] [address] [facility] [id number] [address] [place] [address] Aug, [facility] [address] [facility] [id number] [address] [place] [address] Jul, Encounter to establish care Z76.89 ; [...] 1 tablet as n eeded 6h Mar, 28 days Active RESULTS No Results PROCEDURES [...] polyp removal/colonoscopy Hospitalization History heart attack x3 [id number] 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
--- OUTSIDE RECORDS SUMMARY | 2020-01-21 19:08 | XMS REPORT ---
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 3 Active 308901908 Problem Seasonal allergic rhinitis due to pollen J30.1 Active 87526978 Problem Metabolic disorder, unspecified E88.9 Active 784073534 Problem Skin ulcer of buttock, limited to breakdown of skin L98.411 Active 83611521 Problem Lumbago with sciatica, right side M54.41 Active 829630792702752 Problem Other spondylosis with myelopathy, cervical region M47.12 Active 76278757 Problem Lumbago with sciatica, left side M54.42 Active 466677009 Problem Type 2 diabetes mellitus wit hout complication, without long-term current use of insulin E11.9 Active 695175890 Problem Hyperlipidemia, unspecified E78.5 Ac tive 43825705 Problem Renal cell carcinoma of left kidney C64.2 Active 834295275 Problem Other spondylosis with radiculopathy, cervical region M47.22 Active 723934338 Problem Type 2 diabetes mellitus with other specified complication E11.69 Active 46279902428057 Problem Right renal mass N28.89 Active 309 043850 Problem Retrolisthesis of vertebrae M43.10 Ac tive 926332832 Problem Essential hypertension I10 Active 11495675 Problem Pain syndrome, chronic G89.4 Active 123615047 Problem Body mass index (BMI) of 32.0-32.9 in adult Z68.32 Active 458058672 Problem Other obesity due to excess calories E66.09 Active 820446931 Problem Left kidney mass N28.89 Active 309 600452 Problem Spondylosis of cervical region without myelopath y or radiculopathy M47.812 Active 827662727 Problem Major depressive disorder, recurrent episode, moderate F33.1 Active 101408712 Problem Chronic esophagogastric ulcer K25.7 Active 75549965 Problem Pulmonary nodule R91.1 Active 427 848139 Problem GERD without esophagitis K21.9 Activ e 517426251 ALLERGIES Substance Reaction Event Type Date Status Ketorolac Tromethamine Unknown Drug Allergy Mar, Activ e Hydrocodone-Acetaminophen anaphylaxis Drug Allergy Mar, Ac tive Feldene cintron's palsy Drug Allergy Mar, Active Doxycycline Monohydrate anaphylaxis Drug Allergy Mar, Acti ve ENCOUNTERS Encounter Location Date Diagnosis [place] [address] [address] Jun, [place] [address] [address] May, Spondylosis of cervical hakan on without myelopathy or radiculopathy M47.812 [place] [address] [address] May, [place] [address] [address] May, [facility] [address] [address] May, Skin ulcer of buttock, limit ed to breakdown of skin L98.411 [facility] [address] [address] May, Fever, unspecified fever cau se R50.9 [place] [address] [address] Apr, Acute cystitis with hematuri a N30.01 and Dehydration E86.0 [place] [address] [address] Apr, [facility] [address] [address] Apr, Dysuria R30.0 and Acute cyst itis without hematuria N30.00 [facility] [address] [id number] [address] [place] [address] Apr, [facility] [address] [id number] [address] [place] [address] Apr, Spondylosis of cervical hakan on without myelopathy or radiculopathy M47.812 [facility] [address] [id number] [address] [place] [address] Apr, [facility] [address] [id number] [address] [place] [address] Apr, Other spondylosis with radic ulopathy, cervical region M47.22 [facility] [address] [id number] [address] [place] [address] Apr, [facility] [address] [id number] [address] [place] [address] Apr, Other spondylosis with radic ulopathy, cervical region M47.22 ; Other spondylosis with myelopathy, cervical region M47.12 and Renal cell carcinoma of left kidney C64.2 [facility] [address] [id number] [address] [place] [address] Apr, [facility] [address] [id number] [address] [place] [address] Apr, Lumbago with sciatica, right side M54.41 and Lumbago with sciatica, left side M54.42 [facility] [address] [id number] [address] [place] [address] Mar, Type 2 diabetes mellitus wit hout [...] and Hyperlipidemia, unspecified E78.5 [facility] [place] [address] [address] Mar, Acute suppurative otitis med ia of both ears without spontaneous rupture of tympanic membranes, recurrence not specified H66.003 [place] [address] [address] Mar, [place] [address] [address] Mar, Retrolisthesis of vertebrae M43.[address] [address] Mar, Low back pain, unspecified b ack pain laterality, unspecified chronicity, with sciatica presence unspecified M54.5 and Type 2 diabetes mellitus without complication, without long-term current use of insulin E11.9 [place] [address] [address] February, [address] [address] February, Retrolisthesis of vertebrae M43.[address] [address] February, Strain of neck muscle, initi al encounter S16.1XXA [place] [address] [address] February, Type 2 diabetes mellitus wit hout [...] pollen J30.1 [facility] [address] [id number] [address] [place] [address] February, Essential hypertension I10 ; Retrolisthesis of vertebrae M43.10 ; Body mass index (BMI) of 32.0-32.9 in adult Z68.32 and Type 2 diabetes mellitus without complication, without long-term current use of insulin E11.9 [facility] [address] [id number] [address] [place] [address] February, Type 2 diabetes mellitus wit hout complication, without long-term current use of insulin E11.9 [place] [address] [id number] [address] [place] [address] Jan, Lumbago with sciatica, right side M54.41 [facility] [address] [id number] [address] [place] [address] Jan, Sore throat J02.9 [facility] [address] [id number] [address] [place] [address] Dec, [facility] [address] [id number] [address] [place] [address] Dec, Type 2 diabetes mellitus wit hout complication, without long-term current use of insulin E11.9 [place] [address] [id number] [address] [place] [address] Dec, [facility] [address] [id number] [address] [place] [address] Dec, [facility] [address] [id number] [address] [place] [address] Dec, [facility] [address] [id number] [address] [place] [address] Dec, Type 2 diabetes mellitus wit hout [...] esophagitis K21.9 [facility] [address] [id number] [address] [place] [address] Dec, [facility] [address] [id number] [address] [place] [address] Nov, [facility] [address] [id number] [address] [place] [address] Nov, [facility] [address] [id number] [address] [place] [address] Nov, [facility] [address] [id number] [address] [place] [address] Nov, [facility] [address] [id number] [address] [place] [address] Oct, [facility] [address] [id number] [address] [place] [address] Oct, [facility] [address] [id number] [address] [place] [address] 16 Oct, 2017 [facility] [address] [id number] [address] [place] [address] 11 Oct, 2017 Well woman exam with routine gynecological exam Z01.419 ; Screen for STD (sexually transmitted disease) Z11.3 ; Screening breast examination Z12.31 ; Type 2 diabetes mellitus without complication, without long-term current use of insulin E11.9 ; Other obesity due to excess calories E66.09 and Body mass index (BMI) of 32.0-32.9 in adult Z68.32 [facility] [address] [id number] [address] [place] [address] Oct, Ganglion of left wrist M67.4 32 [facility] [address] [id number] [address] [place] [address] Oct, [facility] [address] [id number] [address] [place] [address] Oct, [facility] [address] [id number] [address] [place] [address] Oct, Ganglion cyst M67.40 [facility] [address] [id number] [address] [place] [address] Oct, [facility] [address] [id number] [address] [place] [address] Sep, [facility] [address] [id number] [address] [place] [address] Sep, Major depressive disorder, r ecurrent episode, moderate F33.1 [facility] [address] [id number] [address] [place] [address] Sep, [facility] [address] [id number] [address] [place] [address] Sep, Right renal mass N28.89 [facility] [address] [id number] [address] [place] [address] Sep, [facility] [address] [id number] [address] [place] [address] Sep, [facility] [address] [id number] [address] [place] [address] Sep, Right renal mass N28.89 [facility] [address] [id number] [address] [place] [address] Sep, [facility] [address] [id number] [address] [place] [address] Sep, [facility] [address] [id number] [address] [place] [address] Sep, [facility] [address] [id number] [address] [place] [address] Sep, [facility] [address] [id number] [address] [place] [address] Sep, [facility] [address] [id number] [address] [place] [address] Sep, [facility] [address] [id number] [address] [place] [address] Sep, Pulmonary nodule R91.1 [facility] [address] [id number] [address] [place] [address] Aug, [facility] [address] [id number] [address] [place] [address] Aug, Right renal mass N28.89 and Pulmonary nodule R91.1 [facility] [address] [id number] [address] [place] [address] Aug, Essential hypertension I10 ; Right renal mass N28.89 ; Chronic gastric ulcer, unspecified whether gastric ulcer hemorrhage or perforation present K25.7 ; Spondylosis of cervical region without myelopathy or radiculopathy M47.812 ; Retrolisthesis of vertebrae M43.10 and Hospital discharge follow-up Z09 [facility] [address] [id number] [address] [place] [address] Aug, [facility] [address] [id number] [address] [place] [address] Aug, [facility] [address] [place] [id number] [address] [place] [address] Aug, [facility] [address] [id number] [address] [place] [address] Aug, Pain syndrome, chronic G89.4 ; Lumbago with sciatica, right side M54.41 ; Lumbago with sciatica, left side M54.42 ; Other chronic pain G89.29 ; Cervicalgia M54.2 ; Controlled substance agreement signed Z79.899 and Essential hypertension I10 [facility] [address] [id number] [address] [place] [phone] Aug, [facility] [address] [id number] [address] [place] [address] Jul, Encounter to establish care Z76.89 ; [...] SOCIAL HISTORY Never Assessed REASON FOR VISIT sore throat/ear pain bilaterally since yesterday. [email or web address] PLAN OF CARE Activity Details Follow Up prn Reason: VITAL SIGNS Height 68 in 2018-04-09 Weight 214.8 lbs 2018-04-09 Temperature 97.6 degrees Fahrenheit 2018-04-09 Heart Rate 80 bpm 2018-04-09 Respiratory Rate 20 2018-04-09 BMI 32.66 kg/m2 2018-04-09 Blood pressure systolic 124 mmHg 2018-04-09 Blood pressure diastolic 74 mmHg 2018-04-09 MEDICATIONS Medication Instructions Dosage Frequency Start Date End Date Duration S tatus Onglyza 5 mg Orally Once a day 1 tablet 24h 30 Active Accu-Chek Soft Touch Lancets - as directed 8h February, 30 days Active Fluticasone Propionate 50 MCG/ACT Nasally Once a day 1 spray in each nostril 24h Dec, 30 day(s) Active Dexilant 60 mg Orally Once a day 1 capsule 24h Aug, 90 days Active Tizanidine HCl 4 MG Orally Three times a day 1 capsule as needed 8h Active Sucralfate 1 GM Orally 4 times a day 1 tablet 6h Active Sertraline HCl 25 MG TAKE ONE TABLET BY MOUTH ONCE DAILY 30 Active Gabapentin 300 MG Orally Once a day 1 capsule before bedtime 24h 30 Active Blood Glucose Test Strip - In Vitro 3 times a day as directed 8h February, 30 days Active Metoprolol Tartrate 100 MG TAKE ONE TABLET BY MOUTH TWICE DAILY WITH FOOD 30 Active Centrum Silver 50+Women - Active Pioglitazone HCl-Metformin HCl 15-500 MG TAKE ONE TABLET BY MOUTH ONCE DAILY WITH A MEAL 30 Active Amoxicillin 875 MG Orally every 12 hrs 1 tablet 12h 23 Mar, 201 8 3 Apr, 2018 10 day(s) Active Aspirin 81 MG Orally Once a day 1 tablet 24h 90 days Active Accu-Chek Soft Touch Device - as directed 8h February, 30 days Active Lisinopril 20 MG TAKE ONE TABLET BY MOUTH TWICE DAILY 30 Active Atorvastatin Calcium 20 mg Orally Once a day 1 tablet 24h 19 2017 90 days Active Oxycodone-Acetaminophen 7.5-325 MG Orally every 6 [...] polyp removal/colonoscopy Hospitalization History heart attack x3 [id number] 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
--- OUTSIDE RECORDS SUMMARY | 2020-01-21 19:08 | XMS REPORT ---
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 3 Active 669759165 Problem Seasonal allergic rhinitis due to pollen J30.1 Active 41834995 Problem Metabolic disorder, unspecified E88.9 Active 045907744 Problem Skin ulcer of buttock, limited to breakdown of skin L98.411 Active 27307102 Problem Lumbago with sciatica, right side M54.41 Active 521500267424622 Problem Other spondylosis with myelopathy, cervical region M47.12 Active 68396089 Problem Lumbago with sciatica, left side M54.42 Active 987838778 Problem Type 2 diabetes mellitus wit hout complication, without long-term current use of insulin E11.9 Active 936065361 Problem Hyperlipidemia, unspecified E78.5 Ac tive 80972885 Problem Renal cell carcinoma of left kidney C64.2 Active 951872707 Problem Other spondylosis with radiculopathy, cervical region M47.22 Active 805649761 Problem Type 2 diabetes mellitus with other specified complication E11.69 Active 98294506284206 Problem Right renal mass N28.89 Active 309 041203 Problem Retrolisthesis of vertebrae M43.10 Ac tive 459958638 Problem Essential hypertension I10 Active 39465762 Problem Pain syndrome, chronic G89.4 Active 475563454 Problem Body mass index (BMI) of 32.0-32.9 in adult Z68.32 Active 051022566 Problem Other obesity due to excess calories E66.09 Active 706790204 Problem Left kidney mass N28.89 Active 309 226493 Problem Spondylosis of cervical region without myelopath y or radiculopathy M47.812 Active 651429384 Problem Major depressive disorder, recurrent episode, moderate F33.1 Active 591563873 Problem Chronic esophagogastric ulcer K25.7 Active 22783574 Problem Pulmonary nodule R91.1 Active 427 070157 Problem GERD without esophagitis K21.9 Activ e 817823379 ALLERGIES Substance Reaction Event Type Date Status Ketorolac Tromethamine Unknown Drug Allergy Mar, Activ e Hydrocodone-Acetaminophen anaphylaxis Drug Allergy Mar, Ac tive Feldene cintron's palsy Drug Allergy Mar, Active Doxycycline Monohydrate anaphylaxis Drug Allergy Mar, Acti ve ENCOUNTERS Encounter Location Date Diagnosis [facility] [address] [place] [id number] [place] [address] Jun, [place] [address] [address] Jun, [place] [address] [address] May, Spondylosis of cervical hakan on without myelopathy or radiculopathy M47.812 [place] [address] [place] [id number] [place] [address] May, [facility] [address] [address] May, [facility] [address] [address] May, Skin ulcer of buttock, limit ed to breakdown of skin L98.411 [facility] [address] [place] [id number] [place] [address] May, Fever, unspecified fever cau se R50.9 [facility] [address] [address] Apr, Acute cystitis with hematuri a N30.01 and Dehydration E86.0 [facility] [address] [place] [id number] [place] [address] Apr, [facility] [address] [facility] [id number] [address] [place] [address] Apr, Dysuria R30.0 and Acute cyst itis without hematuria N30.00 [facility] [address] [facility] [id number] [address] [place] [address] Apr, [facility] [address] [facility] [id number] [address] [place] [address] Apr, Spondylosis of cervical hakan on without myelopathy or radiculopathy M47.812 [facility] [address] [facility] [id number] [address] [place] [address] Apr, [facility] [address] [facility] [id number] [address] [place] [address] Apr, Other spondylosis with radic ulopathy, cervical region M47.22 [place] [address] [facility] [id number] [address] [place] [address] Apr, [facility] [address] [facility] [id number] [address] [place] [address] Apr, Other spondylosis with radic ulopathy, cervical region M47.22 ; Other spondylosis with myelopathy, cervical region M47.12 and Renal cell carcinoma of left kidney C64.2 [place] [address] [facility] [id number] [address] [place] [address] Apr, [place] [address] [facility] [id number] [address] [place] [address] Apr, Lumbago with sciatica, right side M54.41 and Lumbago with sciatica, left side M54.42 [place] [address] [facility] [id number] [address] [place] [address] Mar, Type 2 diabetes mellitus wit hout [...] specified complication E11.69 and Hyperlipidemia, unspecified E78.5 [facility] [place] [address] [address] Mar, Acute suppurative otitis med ia of both ears without spontaneous rupture of tympanic membranes, recurrence not specified H66.003 [place] [address] [address] Mar, [place] [address] [place] [address] Mar, Retrolisthesis of vertebrae M43.10 [place] [address] [address] Mar, Low back pain, unspecified b ack pain laterality, unspecified chronicity, with sciatica presence unspecified M54.5 and Type 2 diabetes mellitus without complication, without long-term current use of insulin E11.9 [place] [address] [address] February, [place] [address] [address] February, Retrolisthesis of vertebrae M43.10 [place] [address] [address] February, Strain of neck muscle, initi al encounter S16.1XXA [place] [address] [address] February, Type 2 diabetes mellitus wit hout [...] Seasonal allergic rhinitis due to pollen J30.1 [facility] [address] [place] [id number] [place] [address] February, Essential hypertension I10 ; Retrolisthesis of vertebrae M43.10 ; Body mass index (BMI) of 32.0-32.9 in adult Z68.32 and Type 2 diabetes mellitus without complication, without long-term current use of insulin E11.9 [place] [address] [place] [id number] [place] [address] February, Type 2 diabetes mellitus wit hout complication, without long-term current use of insulin E11.9 [place] [address] [facility] [id number] [address] [place] [address] Jan, Lumbago with sciatica, right side M54.41 [facility] [address] [facility] [id number] [address] [place] [address] Jan, Sore throat J02.9 [facility] [address] [facility] [id number] [address] [place] [address] Dec, [facility] [address] [facility] [id number] [address] [place] [address] Dec, Type 2 diabetes mellitus wit hout complication, without long-term current use of insulin E11.9 [place] [id number] [facility] [id number] [address] [place] [address] Dec, [place] [address] [facility] [id number] [address] [place] [address] Dec, [facility] [address] [facility] [id number] [address] [place] [address] Dec, [place] [address] [place] [id number] [place] [address] Dec, Type 2 diabetes mellitus wit hout [...] pollen J30.1 and GERD without esophagitis K21.9 [facility] [address] [place] [id number] [place] [address] Dec, [facility] [address] [place] [id number] [address] [place] [address] Nov, [place] [address] [place] [id number] [place] [address] Nov, [facility] [address] [place] [id number] [place] [address] Nov, [facility] [address] [place] [id number] [place] [address] Nov, [facility] [address] [place] [id number] [place] [address] Oct, [facility] [address] [place] [id number] [place] [address] Oct, [facility] [address] [place] [id number] [place] [address] Oct, [facility] [address] [place] [id number] [place] [address] Oct, Well woman exam with routine gynecological exam Z01.419 ; Screen for STD (sexually transmitted disease) Z11.3 ; Screening breast examination Z12.31 ; Type 2 diabetes mellitus without complication, without long-term current use of insulin E11.9 ; Other obesity due to excess calories E66.09 and Body mass index (BMI) of 32.0-32.9 in adult Z68.32 [facility] [address] [place] [id number] [place] [address] Oct, Ganglion of left wrist M67.4 32 [facility] [address] [place] [id number] [place] [address] Oct, [facility] [address] [place] [id number] [place] [address] Oct, [facility] [address] [place] [id number] [place] [address] Oct, Ganglion cyst M67.40 [facility] [address] [place] [id number] [place] [address] Oct, [facility] [address] [address] Sep, [place] [address] [address] Sep, Major depressive disorder, r ecurrent episode, moderate F33.1 [place] [address] [place] [id number] [place] [address] Sep, [place] [address] [place] [id number] [place] [address] Sep, Right renal mass N28.89 [place] [address] [address] Sep, [place] [address] [place] [id number] [place] [address] Sep, [place] [address] [place] [id number] [place] [address] Sep, Right renal mass N28.89 [place] [address] [place] [id number] [place] [address] Sep, [facility] [address] [facility] [id number] [address] [place] [address] Sep, [facility] [address] [facility] [id number] [address] [place] [address] Sep, [facility] [address] [facility] [id number] [address] [place] [address] Sep, [facility] [address] [facility] [id number] [address] [place] [address] Sep, [facility] [address] [facility] [id number] [address] [place] [address] Sep, [facility] [address] [facility] [id number] [address] [place] [address] Sep, Pulmonary nodule R91.1 [facility] [address] [place] [id number] [place] [address] Aug, [facility] [address] [facility] [id number] [address] [place] [address] Aug, Right renal mass N28.89 and Pulmonary nodule R91.1 [facility] [address] [facility] [id number] [address] [place] [address] Aug, Essential hypertension I10 ; Right renal mass N28.89 ; Chronic gastric ulcer, unspecified whether gastric ulcer hemorrhage or perforation present K25.7 ; Spondylosis of cervical region without myelopathy or radiculopathy M47.812 ; Retrolisthesis of vertebrae M43.10 and Hospital discharge follow-up Z09 [facility] [address] [facility] [id number] [address] [place] [address] 14 Aug, 2017 [facility] [address] [place] [id number] [place] [address] Aug, [facility] [address] [facility] [id number] [address] [place] [address] Aug, [facility] [address] [place] [id number] [place] [address] Aug, Pain syndrome, chronic G89.4 ; Lumbago with sciatica, right side M54.41 ; Lumbago with sciatica, left side M54.42 ; Other chronic pain G89.29 ; Cervicalgia M54.2 ; Controlled substance agreement signed Z79.899 and Essential hypertension I10 [facility] [address] [facility] [id number] [address] [place] [address] Aug, [facility] [address] [facility] [id number] [address] [place] [address] Jul, Encounter to establish care Z76.89 ; [...] SOCIAL HISTORY Never Assessed REASON FOR VISIT kidney infection- Kidney pain since wednesday-Clementina Villalobos RN PLAN OF CARE Activity Details Follow Up prn Reason: VITAL SIGNS Height 68 in 2018-04-06 Weight 213 lbs 2018-04-06 Temperature 98.3 degrees Fahrenheit 2018-04-06 Heart Rate 78 bpm 2018-04-06 Respiratory Rate 18 2018-04-06 BMI 32.38 kg/m2 2018-04-06 Blood pressure systolic 122 mmHg 2018-04-06 Blood pressure diastolic 78 mmHg 2018-04-06 MEDICATIONS Medication Instructions Dosage Frequency Start Date End Date Duration S tatus Atorvastatin Calcium 20 mg Orally Once a day 1 tablet 24h 2017 90 days Active Centrum Silver 50+Women - Active Dexilant 60 mg Orally Once a day 1 capsule 24h Aug, 90 days Active Accu-Chek Soft Touch Lancets - as directed 8h February, 30 days Active Onglyza 5 mg Orally Once a day 1 tablet 24h 30 Active Metoprolol Tartrate 100 MG TAKE ONE TABLET BY MOUTH TWICE DAILY WITH FOOD 30 Active Sertraline HCl 25 MG TAKE ONE TABLET BY MOUTH ONCE DAILY 30 Active Accu-Chek Soft Touch Device - as directed 8h February, 30 days Active Tizanidine HCl 4 MG Orally Three times a day 1 capsule as needed 8h Active Blood Glucose Test Strip - In Vitro 3 times a day as directed 8h February, 30 days Active Pioglitazone HCl-Metformin HCl 15-500 MG TAKE ONE TABLET BY MOUTH ONCE DAILY WITH A MEAL 30 Active Lisinopril 20 MG TAKE ONE TABLET BY MOUTH TWICE DAILY 30 Active Fluticasone Propionate 50 MCG/ACT Nasally Once a day 1 spray in each nostril 24h Dec, 30 day(s) Active Aspirin 81 MG Orally Once a day 1 tablet 24h 90 days Active Oxycodone-Acetaminophen 7.5-325 MG Orally every 6 hrs 1 tablet as n eeded 6h February, Mar, 28 days Active Sucralfate 1 GM Orally 4 times a day 1 tablet 6h Active Gabapentin 300 MG Orally Once a day 1 capsule before bedtime 24h 30 Active RESULTS Name Result Date Reference Range GLUCOSE FINGERSTICK (IN HOUSE) 2018-04-06 GLU FINGERSTICK 110 PC Lot # [id number] Exp date 09/01/2018 UA LONG DIP (IN HOUSE) Lot # [id number] Exp date 09/16/2018 Clarity clear Color dark yellow Odor none GLU Negtive JANE 1+ KET Trace SG 1.015 BLO Negtive pH 8.5 Protein Trace URO 1.0 NIT Negative HI Negative Lot # Exp date PROCEDURES Procedure Date Ordered Result Body Site URINALYSIS, AUTO, W/O SCOPE April 06, 2018 GLUCOSE BLOOD TEST April 06, 2018 INSTRUCTIONS MEDICATIONS ADMINISTERED No Known Medications [...] polyp removal/colonoscopy Hospitalization History heart attack x3 [id number] 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
--- OUTSIDE RECORDS SUMMARY | 2020-01-21 19:08 | XMS REPORT ---
Author Author Amy BLANCAS Organization 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 3 Active 262983335 Problem Seasonal allergic rhinitis due to pollen J30.1 Active 06291934 Problem Metabolic disorder, unspecified E88.9 Active 131334014 Problem Skin ulcer of buttock, limited to breakdown of skin L98.411 Active 34645431 Problem Lumbago with sciatica, right side M54.41 Active 387722917301280 Problem Other spondylosis with myelopathy, cervical region M47.12 Active 36202831 Problem Lumbago with sciatica, left side M54.42 Active 371222603 Problem Type 2 diabetes mellitus wit hout complication, without long-term current use of insulin E11.9 Active 418483343 Problem Hyperlipidemia, unspecified E78.5 Ac tive 06236403 Problem Renal cell carcinoma of left kidney C64.2 Active 379881739 Problem Other spondylosis with radiculopathy, cervical region M47.22 Active 908574585 Problem Type 2 diabetes mellitus with other specified complication E11.69 Active 60833120266979 Problem Right renal mass N28.89 Active 309 534636 Problem Retrolisthesis of vertebrae M43.10 Ac tive 804820438 Problem Essential hypertension I10 Active 44058933 Problem Pain syndrome, chronic G89.4 Active 643663593 Problem Body mass index (BMI) of 32.0-32.9 in adult Z68.32 Active 437048456 Problem Other obesity due to excess calories E66.09 Active 706376277 Problem Left kidney mass N28.89 Active 309 473966 Problem Spondylosis of cervical region without myelopath y or radiculopathy M47.812 Active 775679971 Problem Major depressive disorder, recurrent episode, moderate F33.1 Active 854094986 Problem Chronic esophagogastric ulcer K25.7 Active 34724595 Problem Pulmonary nodule R91.1 Active 427 476079 Problem GERD without esophagitis K21.9 Activ e 376335411 ALLERGIES No Information ENCOUNTERS Encounter Location Date Diagnosis [facility] [address] [address] Jun, [facility] [address] [address] May, Spondylosis of cervical hakan on without myelopathy or radiculopathy M47.812 [place] [address] [address] May, [place] [address] [address] May, [facility] [address] [address] May, Skin ulcer of buttock, limit ed to breakdown of skin L98.411 [facility] [address] [address] May, Fever, unspecified fever cau se R50.9 [place] [address] [address] Apr, Acute cystitis with hematuri a N30.01 and Dehydration E86.0 [place] [address] [address] Apr, [facility] [address] [address] Apr, Dysuria R30.0 and Acute cyst itis without hematuria N30.00 [place] [address] [address] Apr, [facility] [address] [address] Apr, Spondylosis of cervical hakan on without myelopathy or radiculopathy M47.812 [place] [address] [address] [place] [id number] [address] [place] [address] Apr, [facility] [place] [address] [place] [id number] [address] [place] [address] Apr, Other spondylosis with radic ulopathy, cervical region M47.22 [place] [address] [address] [place] [id number] [address] [place] [address] Apr, [place] [address] [place] [id number] [address] [place] [address] Apr, Other spondylosis with radic ulopathy, cervical region M47.22 ; Other spondylosis with myelopathy, cervical region M47.12 and Renal cell carcinoma of left kidney C64.[address] [address] Apr, [place] [address] [address] [place] [id number] [address] [place] [address] Apr, Lumbago with sciatica, right side M54.41 and Lumbago with sciatica, left side M54.42 [place] [address] [address] Mar, Type 2 diabetes mellitus wit hout [...] Hyperlipidemia, unspecified E78.5 [facility] [address] [address] Mar, Acute suppurative otitis med ia of both ears without spontaneous rupture of tympanic membranes, recurrence not specified H66.003 [place] [address] [address] Mar, [place] [address] [address] Mar, Retrolisthesis of vertebrae M43.10 [facility] [place] [address] [address] Mar, Low back pain, unspecified b ack pain laterality, unspecified chronicity, with sciatica presence unspecified M54.5 and Type 2 diabetes mellitus without complication, without long-term current use of insulin E11.9 [place] [address] [address] February, [address] [address] February, Retrolisthesis of vertebrae M43.10 [facility] [place] [address] [address] February, Strain of neck muscle, initi al encounter S16.1XXA [address] [address] February, Type 2 diabetes mellitus wit hout [...] allergic rhinitis due to pollen J30.[address] [place] [address] February, Essential hypertension I10 ; Retrolisthesis of vertebrae M43.10 ; Body mass index (BMI) of 32.0-32.9 in adult Z68.32 and Type 2 diabetes mellitus without complication, without long-term current use of insulin E11.9 [facility] [address] [place] [id number] [address] [place] [address] February, Type 2 diabetes mellitus wit hout complication, without long-term current use of insulin E11.9 [facility] [address] [facility] [id number] [address] [place] [address] Jan, Lumbago with sciatica, right side M54.41 [facility] [address] [facility] [id number] [address] [place] [address] Jan, Sore throat J02.9 [facility] [address] [facility] [id number] [address] [place] [address] Dec, [facility] [address] [facility] [id number] [address] [place] [address] Dec, Type 2 diabetes mellitus wit hout complication, without long-term current use of insulin E11.9 [place] [address] [address] [place] [id number] [address] [place] [address] Dec, [facility] [address] [facility] [id number] [address] [place] [address] Dec, [place] [address] [place] [id number] [address] [place] [address] Dec, [place] [address] [facility] [id number] [address] [place] [address] Dec, Type 2 diabetes mellitus wit hout [...] pollen J30.1 and GERD without esophagitis K21.9 [place] [address] [facility] [id number] [address] [place] [address] Dec, [facility] [address] [id number] [address] [place] [address] Nov, [facility] [address] [id number] [address] [place] [address] Nov, [place] [address] [facility] [id number] [address] [place] [address] Nov, [place] [address] [place] [id number] [address] [place] [address] Nov, [place] [address] [facility] [id number] [address] [place] [address] Oct, [place] [address] [facility] [id number] [address] [place] [address] Oct, [place] [address] [facility] [id number] [address] [place] [address] Oct, [place] [address] [facility] [id number] [address] [place] [address] Oct, Well woman exam with routine gynecological exam Z01.419 ; Screen for STD (sexually transmitted disease) Z11.3 ; Screening breast examination Z12.31 ; Type 2 diabetes mellitus without complication, without long-term current use of insulin E11.9 ; Other obesity due to excess calories E66.09 and Body mass index (BMI) of 32.0-32.9 in adult Z68.32 [place] [address] [address] [place] [id number] [address] [place] [address] Oct, Ganglion of left wrist M67.4 32 [place] [address] [address] [place] [id number] [address] [place] [address] Oct, [facility] [address] [facility] [id number] [address] [place] [address] Oct, [facility] [address] [facility] [id number] [address] [place] [address] Oct, Ganglion cyst M67.40 [facility] [address] [facility] [id number] [address] [place] [address] Oct, [facility] [address] [facility] [id number] [address] [place] [address] Sep, [facility] [address] [facility] [id number] [address] [place] [address] Sep, Major depressive disorder, r ecurrent episode, moderate F33.1 [facility] [address] [facility] [id number] [address] [place] [address] Sep, [facility] [address] [facility] [id number] [address] [place] [address] Sep, Right renal mass N28.89 [facility] [address] [facility] [id number] [address] [place] [address] Sep, [facility] [address] [facility] [id number] [address] [place] [address] Sep, [facility] [address] [facility] [id number] [address] [place] [address] Sep, Right renal mass N28.89 [facility] [address] [facility] [id number] [address] [place] [address] Sep, [facility] [address] [facility] [id number] [address] [place] [address] Sep, [facility] [address] [facility] [id number] [address] [place] [address] Sep, [facility] [address] [facility] [id number] [address] [place] [address] Sep, [facility] [address] [place] [id number] [address] [place] [address] Sep, [place] [address] [place] [id number] [address] [place] [address] Sep, [facility] [address] [place] [id number] [address] [place] [address] Sep, Pulmonary nodule R91.1 [place] [address] [place] [id number] [address] [place] [address] Aug, [place] [address] [place] [id number] [place] [address] Aug, Right renal mass N28.89 and Pulmonary nodule R91.1 [place] [address] [place] [id number] [address] [place] [address] 16 Aug, 2017 Essential hypertension I10 ; Right renal mass N28.89 ; Chronic gastric ulcer, unspecified whether gastric ulcer hemorrhage or perforation present K25.7 ; Spondylosis of cervical region without myelopathy or radiculopathy M47.812 ; Retrolisthesis of vertebrae M43.10 and Hospital discharge follow-up Z09 [place] [address] [address] 14 Aug, 2017 [place] [address] [place] [id number] [address] [place] [address] 09 Aug, 2017 [place] [address] [place] [id number] [address] [place] [address] Aug, [place] [address] [place] [id number] [place] [address] Aug, Pain syndrome, chronic G89.4 ; Lumbago with sciatica, right side M54.41 ; Lumbago with sciatica, left side M54.42 ; Other chronic pain G89.29 ; Cervicalgia M54.2 ; Controlled substance agreement signed Z79.899 and Essential hypertension I10 [place] [address] [address] [place] [id number] [address] [place] [address] Aug, [facility] [address] [facility] [id number] [address] [place] [address] Jul, Encounter to establish care Z76.89 ; [...] SOCIAL HISTORY Never Assessed REASON FOR VISIT Prior Authorization Request PLAN OF CARE VITAL SIGNS MEDICATIONS Unknown [...] polyp removal/colonoscopy Hospitalization History heart attack x3 [id number] 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
--- OUTSIDE RECORDS SUMMARY | 2020-01-21 19:09 | XMS REPORT ---
Author Author Amy BLANCAS Organization 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 3 Active 281705202 Problem GERD without esophagitis K21.9 Activ e 024993158 Problem Other spondylosis with myelopathy, cervical region M47.12 Active 30655928 Problem Lumbago with sciatica, right side M54.41 Active 581242975666352 Problem Other spondylosis with radiculopathy, cervical region M47.22 Active 230325750 Problem Lumbago with sciatica, left side M54.42 Active 371878161 Problem Left kidney mass N28.89 Active 309 325937 Problem Renal cell carcinoma of left kidney C64.2 Active 591941285 Problem Metabolic disorder, unspecified E88.9 Active 010425946 Problem Type 2 diabetes mellitus with other specified complication E11.69 Active 59731867095883 Problem Hyperlipidemia, unspecified E78.5 Ac tive 89019887 Problem Pain syndrome, chronic G89.4 Active 489910738 Problem Right renal mass N28.89 Active 309 737328 Problem Type 2 diabetes mellitus wit hout complication, without long-term current use of insulin E11.9 Active 744407025 Problem Essential hypertension I10 Active 41268601 Problem Pulmonary nodule R91.1 Active 427 408336 Problem Body mass index (BMI) of 32.0-32.9 in adult Z68.32 Active 841881810 Problem Retrolisthesis of vertebrae M43.10 Ac tive 547556914 Problem Other obesity due to excess calories E66.09 Active 257374794 Problem Chronic esophagogastric ulcer K25.7 Active 11216799 Problem Spondylosis of cervical region without myelopath y or radiculopathy M47.812 Active 835854049 Problem Major depressive disorder, recurrent episode, moderate F33.1 Active 491725321 ALLERGIES No Information ENCOUNTERS Encounter Location Date Diagnosis [facility] [address] [facility] [id number] [address] [place] [phone] Jun, [facility] [address] [facility] [id number] [address] [place] [phone] May, [facility] [address] [place] [id number] [address] [place] [phone] May, Fever, unspecified fever cau se R50.9 [place] [address] [facility] [id number] [place] [phone] Apr, Acute cystitis with hematuri a N30.01 and Dehydration E86.0 [place] [address] [place] [id number] [address] [place] [phone] Apr, [facility] [address] [place] [place] [id number] [address] [place] [phone] Apr, Dysuria R30.0 and Acute cyst itis without hematuria N30.00 [place] [address] [place] [id number] [address] [place] [phone] Apr, [facility] [address] [place] [id number] [address] [place] [phone] Apr, Spondylosis of cervical hakan on without myelopathy or radiculopathy M47.812 [facility] [address] [facility] [id number] [address] [place] [phone] Apr, [facility] [address] [place] [id number] [address] [place] [phone] Apr, Other spondylosis with radic ulopathy, cervical region M47.22 [facility] [address] [place] [id number] [address] [place] [phone] Apr, [facility] [address] [id number] 17 Apr, 2018 Other spondylosis with radic ulopathy, cervical region M47.22 ; Other spondylosis with myelopathy, cervical region M47.12 and Renal cell carcinoma of left kidney C64.2 [facility] [address] [address] Apr, [place] [address] [address] Apr, Lumbago with sciatica, right side M54.41 and Lumbago with sciatica, left side M54.42 [place] [address] [address] Mar, Type 2 diabetes mellitus wit hout [...] complication E11.69 and Hyperlipidemia, unspecified E78.5 [facility] [address] [id number] Mar, Acute suppurative otitis med ia of both ears without spontaneous rupture of tympanic membranes, recurrence not specified H66.003 [facility] [address] [place] [id number] [address] [place] [phone] Mar, [place] [address] [address] Mar, Retrolisthesis of vertebrae M43.10 [facility] [address] [place] [id number] [address] [place] [phone] Mar, Low back pain, unspecified b ack pain laterality, unspecified chronicity, with sciatica presence unspecified M54.5 and Type 2 diabetes mellitus without complication, without long-term current use of insulin E11.9 [place] [address] [place] [id number] [address] [place] [phone] February, [place] [address] [address] February, Retrolisthesis of vertebrae M43.10 [facility] [address] [address] February, Strain of neck muscle, initi al encounter S16.1XXA [place] [address] [address] February, Type 2 diabetes mellitus wit hout [...] Seasonal allergic rhinitis due to pollen J30.1 [place] [address] [address] February, Essential hypertension I10 ; Retrolisthesis of vertebrae M43.10 ; Body mass index (BMI) of 32.0-32.9 in adult Z68.32 and Type 2 diabetes mellitus without complication, without long-term current use of insulin E11.9 [place] [address] [place] [id number] [address] [place] [phone] February, Type 2 diabetes mellitus wit hout complication, without long-term current use of insulin E11.9 [place] [address] [address] Jan, Lumbago with sciatica, right side M54.41 [facility] [address] [facility] [id number] [address] [place] [phone] Jan, Sore throat J02.9 [facility] [address] [facility] [id number] [address] [place] [phone] Dec, [facility] [address] [facility] [id number] [address] [place] [phone] Dec, Type 2 diabetes mellitus wit hout complication, without long-term current use of insulin E11.9 [facility] [address] [facility] [id number] [address] [place] [phone] 14 Dec, 2017 [facility] [address] [facility] [id number] [address] [place] [phone] Dec, [facility] [address] [facility] [id number] [address] [place] [phone] Dec, [facility] [address] [facility] [id number] [address] [place] [phone] Dec, Type 2 diabetes mellitus wit hout [...] [facility] [address] [facility] [id number] [address] [place] [phone] Dec, [facility] [address] [facility] [id number] [address] [place] [phone] Nov, [facility] [address] [place] [id number] [address] [place] [phone] Nov, [facility] [address] [place] [id number] [place] [phone] Nov, [facility] [address] [place] [id number] [place] [address] Nov, [facility] [address] [place] [id number] [place] [address] Oct, [facility] [address] [address] Oct, [facility] [address] [place] [id number] [place] [address] Oct, [facility] [address] [address] Oct, Well woman exam with routine gynecological exam Z01.419 ; Screen for STD (sexually transmitted disease) Z11.3 ; Screening breast examination Z12.31 ; Type 2 diabetes mellitus without complication, without long-term current use of insulin E11.9 ; Other obesity due to excess calories E66.09 and Body mass index (BMI) of 32.0-32.9 in adult Z68.32 [place] [address] [address] Oct, Ganglion of left wrist M67.4 [address] [place] [address] [address] Oct, [facility] [address] [address] Oct, [facility] [address] [place] [id number] [place] [address] Oct, Ganglion cyst M67.40 [facility] [address] [place] [id number] [place] [address] Oct, [facility] [address] [place] [id number] [place] [address] Sep, [facility] [address] [id number] [address] [place] [phone] Sep, Major depressive disorder, r ecurrent episode, moderate F33.1 [facility] [address] [id number] [address] [place] [phone] Sep, [facility] [address] [facility] [id number] [address] [place] [address] Sep, Right renal mass N28.89 [facility] [address] [id number] [address] [place] [phone] Sep, [facility] [address] [id number] [address] [place] [phone] Sep, [facility] [address] [id number] [address] [place] [phone] Sep, Right renal mass N28.89 [facility] [address] [id number] [address] [place] [phone] Sep, [facility] [address] [id number] [address] [place] [id number] Sep, [facility] [address] [facility] [id number] [address] [place] [phone] Sep, [facility] [address] [facility] [id number] [address] [place] [phone] Sep, [facility] [address] [facility] [id number] [address] [place] [phone] Sep, [facility] [address] [id number] [place] [phone] Sep, [facility] [address] [facility] [id number] [address] [place] [phone] Sep, Pulmonary nodule R91.1 [facility] [address] [id number] [address] [place] [phone] Aug, [facility] [address] [facility] [id number] [address] [place] [id number] 17 Aug, 2017 Right renal mass N28.89 and Pulmonary nodule R91.1 [place] [address] [id number] 16 Aug, 2017 Essential hypertension I10 ; Right renal mass N28.89 ; Chronic gastric ulcer, unspecified whether gastric ulcer hemorrhage or perforation present K25.7 ; Spondylosis of cervical region without myelopathy or radiculopathy M47.812 ; Retrolisthesis of vertebrae M43.10 and Hospital discharge follow-up Z09 [place] [address] [place] [id number] [address] [place] [id number] 14 Aug, 2017 [place] [address] [place] [id number] [place] [address] Aug, [place] [address] [address] Aug, [place] [address] [address] Aug, Pain syndrome, chronic G89.4 ; Lumbago with sciatica, right side M54.41 ; Lumbago with sciatica, left side M54.42 ; Other chronic pain G89.29 ; Cervicalgia M54.2 ; Controlled substance agreement signed Z79.899 and Essential hypertension I10 [place] [address] [place] [id number] [address] [place] [address] Aug, [place] [address] [place] [id number] [address] [place] [address] Jul, Encounter to establish care Z76.89 ; [...] Start Date End Date Duration S satya Oxycodone-Acetaminophen 7.5-325 MG Orally every 6 hrs 1 tablet as n eeded 6h Jan, 28 days Active RESULTS No Results PROCEDURES [...] polyp removal/colonoscopy Hospitalization History heart attack x3 [id number] 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
--- OUTSIDE RECORDS SUMMARY | 2020-01-21 19:09 | XMS REPORT ---
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 3 Active 920756198 Problem Seasonal allergic rhinitis due to pollen J30.1 Active 91705832 Problem Metabolic disorder, unspecified E88.9 Active 158865905 Problem Skin ulcer of buttock, limited to breakdown of skin L98.411 Active 14001425 Problem Lumbago with sciatica, right side M54.41 Active 361634116473219 Problem Other spondylosis with myelopathy, cervical region M47.12 Active 89092771 Problem Lumbago with sciatica, left side M54.42 Active 682414349 Problem Type 2 diabetes mellitus wit hout complication, without long-term current use of insulin E11.9 Active 824996719 Problem Hyperlipidemia, unspecified E78.5 Ac tive 11066056 Problem Renal cell carcinoma of left kidney C64.2 Active 810865170 Problem Other spondylosis with radiculopathy, cervical region M47.22 Active 287450998 Problem Type 2 diabetes mellitus with other specified complication E11.69 Active 06021570268074 Problem Right renal mass N28.89 Active 309 824803 Problem Retrolisthesis of vertebrae M43.10 Ac tive 866396610 Problem Essential hypertension I10 Active 87232549 Problem Pain syndrome, chronic G89.4 Active 159193481 Problem Body mass index (BMI) of 32.0-32.9 in adult Z68.32 Active 760780093 Problem Other obesity due to excess calories E66.09 Active 449321917 Problem Left kidney mass N28.89 Active 309 156252 Problem Spondylosis of cervical region without myelopath y or radiculopathy M47.812 Active 334991351 Problem Major depressive disorder, recurrent episode, moderate F33.1 Active 046371293 Problem Chronic esophagogastric ulcer K25.7 Active 75013004 Problem Pulmonary nodule R91.1 Active 427 045025 Problem GERD without esophagitis K21.9 Activ e 348277559 ALLERGIES Substance Reaction Event Type Date Status Ketorolac Tromethamine Unknown Drug Allergy February, Activ e Hydrocodone-Acetaminophen anaphylaxis Drug Allergy February, Ac tive Feldene cintron's palsy Drug Allergy February, Active Doxycycline Monohydrate anaphylaxis Drug Allergy February, Acti ve ENCOUNTERS Encounter Location Date Diagnosis [facility] [address] [address] Jun, [place] [address] [address] Jun, [place] [address] [address] May, [facility] [address] [address] May, [facility] [address] [address] May, Skin ulcer of buttock, limit ed to breakdown of skin L98.411 [facility] [address] [address] May, Fever, unspecified fever cau se R50.9 [facility] [address] [place] [id number] [place] [address] Apr, Acute cystitis with hematuri a N30.01 and Dehydration E86.0 [place] [address] [address] Apr, [facility] [address] [address] Apr, Dysuria R30.0 and Acute cyst itis without hematuria N30.00 [facility] [address] [address] Apr, [facility] [address] [id number] [address] [place] [address] Apr, Spondylosis of cervical hakan on without myelopathy or radiculopathy M47.812 [facility] [address] [id number] [address] [place] [address] Apr, [facility] [address] [id number] [address] [place] [address] Apr, Other spondylosis with radic ulopathy, cervical region M47.22 [facility] [address] [id number] [address] [place] [address] Apr, [facility] [address] [facility] [id number] [address] [place] [address] Apr, Other spondylosis with radic ulopathy, cervical region M47.22 ; Other spondylosis with myelopathy, cervical region M47.12 and Renal cell carcinoma of left kidney C64.2 [facility] [address] [facility] [id number] [address] [place] [phone] Apr, [facility] [address] [facility] [id number] [address] [place] [address] Apr, Lumbago with sciatica, right side M54.41 and Lumbago with sciatica, left side M54.42 [facility] [address] [facility] [id number] [address] [place] [address] Mar, Type 2 diabetes mellitus wit hout [...] Hyperlipidemia, unspecified E78.5 [facility] [place] [address] [address] Mar, Acute suppurative otitis med ia of both ears without spontaneous rupture of tympanic membranes, recurrence not specified H66.[address] [address] Mar, [place] [address] [address] Mar, Retrolisthesis of vertebrae M43.10 [facility] [place] [address] [address] Mar, Low back pain, unspecified b ack pain laterality, unspecified chronicity, with sciatica presence unspecified M54.5 and Type 2 diabetes mellitus without complication, without long-term current use of insulin E11.9 [place] [address] [address] February, [address] [address] February, Retrolisthesis of vertebrae M43.10 [facility] [place] [address] [address] February, Strain of neck muscle, initi al encounter S16.1XXA [place] [address] [address] February, Type 2 diabetes mellitus wit hout [...] Seasonal allergic rhinitis due to pollen J30.1 [facility] [address] [address] February, Essential hypertension I10 ; Retrolisthesis of vertebrae M43.10 ; Body mass index (BMI) of 32.0-32.9 in adult Z68.32 and Type 2 diabetes mellitus without complication, without long-term current use of insulin E11.9 [place] [address] [place] [id number] [address] [place] [address] February, Type 2 diabetes mellitus wit hout complication, without long-term current use of insulin E11.9 [place] [address] [place] [id number] [place] [address] Jan, Lumbago with sciatica, right side M54.41 [facility] [address] [place] [id number] [place] [address] Jan, Sore throat J02.9 [facility] [address] [facility] [id number] [address] [place] [address] Dec, [facility] [address] [place] [id number] [address] [place] [address] Dec, Type 2 diabetes mellitus wit hout complication, without long-term current use of insulin E11.9 [place] [address] [place] [id number] [address] [place] [address] Dec, [facility] [address] [place] [id number] [address] [place] [address] Dec, [place] [address] [facility] [id number] [address] [place] [address] Dec, [place] [address] [place] [id number] [address] [place] [address] Dec, Type 2 diabetes mellitus wit hout [...] pollen J30.1 and GERD without esophagitis K21.9 [facility] [address] [id number] [address] [place] [phone] Dec, [facility] [address] [id number] [address] [place] [phone] Nov, [facility] [address] [facility] [id number] [address] [place] [address] Nov, [place] [address] [id number] [address] [place] [address] Nov, [facility] [address] [id number] [address] [place] [address] Nov, [facility] [address] [facility] [id number] [address] [place] [address] Oct, [facility] [address] [facility] [id number] [address] [place] [phone] Oct, [place] [address] [facility] [id number] [address] [place] [address] Oct, [facility] [address] [facility] [id number] [address] [place] [address] 11 Oct, 2017 Well woman exam with routine gynecological exam Z01.419 ; Screen for STD (sexually transmitted disease) Z11.3 ; Screening breast examination Z12.31 ; Type 2 diabetes mellitus without complication, without long-term current use of insulin E11.9 ; Other obesity due to excess calories E66.09 and Body mass index (BMI) of 32.0-32.9 in adult Z68.32 [place] [id number] [facility] [id number] [address] [place] [address] Oct, Ganglion of left wrist M67.4 32 [facility] [address] [facility] [id number] [address] [place] [phone] Oct, [facility] [address] [facility] [id number] [address] [place] [address] Oct, [facility] [address] [facility] [id number] [address] [place] [address] Oct, Ganglion cyst M67.40 [facility] [address] [facility] [id number] [address] [place] [address] Oct, [facility] [address] [place] [id number] [address] [place] [address] Sep, [facility] [address] [place] [id number] [address] [place] [address] Sep, Major depressive disorder, r ecurrent episode, moderate F33.1 [facility] [address] [facility] [id number] [address] [place] [address] Sep, [facility] [address] [facility] [id number] [address] [place] [address] Sep, Right renal mass N28.89 [facility] [address] [facility] [id number] [address] [place] [address] Sep, [facility] [address] [place] [id number] [address] [place] [address] Sep, [facility] [address] [facility] [id number] [address] [place] [address] Sep, Right renal mass N28.89 [facility] [address] [facility] [id number] [address] [place] [address] Sep, [facility] [address] [facility] [id number] [address] [place] [address] Sep, [facility] [address] [place] [id number] [address] [place] [phone] Sep, [facility] [address] [facility] [id number] [address] [place] [phone] Sep, [facility] [address] [facility] [id number] [address] [place] [address] Sep, [facility] [address] [place] [id number] [address] [place] [phone] Sep, [facility] [address] [facility] [id number] [address] [place] [address] Sep, Pulmonary nodule R91.1 [facility] [address] [facility] [id number] [address] [place] [address] Aug, [facility] [address] [place] [id number] [place] [address] Aug, Right renal mass N28.89 and Pulmonary nodule R91.1 [facility] [address] [place] [id number] [address] [place] [address] Aug, Essential hypertension I10 ; Right renal mass N28.89 ; Chronic gastric ulcer, unspecified whether gastric ulcer hemorrhage or perforation present K25.7 ; Spondylosis of cervical region without myelopathy or radiculopathy M47.812 ; Retrolisthesis of vertebrae M43.10 and Hospital discharge follow-up Z09 [facility] [address] [place] [id number] [address] [place] [phone] Aug, [facility] [address] [place] [id number] [address] [place] [phone] Aug, [facility] [address] [place] [id number] [address] [place] [address] Aug, [facility] [address] [place] [id number] [place] [address] Aug, Pain syndrome, chronic G89.4 ; Lumbago with sciatica, right side M54.41 ; Lumbago with sciatica, left side M54.42 ; Other chronic pain G89.29 ; Cervicalgia M54.2 ; Controlled substance agreement signed Z79.899 and Essential hypertension I10 [facility] [address] [facility] [id number] [place] [address] Aug, [facility] [address] [facility] [id number] [address] [place] [phone] Jul, Encounter to establish care Z76.89 ; [...] HISTORY Never Assessed REASON FOR VISIT neck pain for 2 days. she was hanging curtains et thinks she pulled something. d oes have chronic neck issues. [email or web address] PLAN OF CARE Activity Details Follow Up prn Reason: VITAL SIGNS Height 68 in 2018-03-07 Weight 212.0 lbs 2018-03-07 Temperature 98.4 degrees Fahrenheit 2018-03-07 Heart Rate 80 bpm 2018-03-07 Respiratory Rate 20 2018-03-07 BMI 32.23 kg/m2 2018-03-07 Blood pressure systolic 126 mmHg 2018-03-07 Blood pressure diastolic 72 mmHg 2018-03-07 MEDICATIONS Medication Instructions Dosage Frequency Start Date End Date Duration S tatus Fluticasone Propionate 50 MCG/ACT Nasally Once a day 1 spray in each nostril 24h Dec, 30 day(s) Active Tizanidine HCl 4 MG TAKE ONE TABLET BY MOUTH THREE TIMES D AILY NEEDED 30 Not-Taking Blood Glucose Test Strip - In Vitro 3 times a day as directed 8h February, 30 days Active Atorvastatin Calcium 20 mg Orally Once a day 1 tablet 24h 2017 90 days Active Aspirin 81 MG Orally Once a day 1 tablet 24h 90 days Active Accu-Chek Soft Touch Device - as directed 8h February, 30 days Active Sertraline HCl 25 MG TAKE ONE TABLET BY MOUTH ONCE DAILY 30 Active Metoprolol Tartrate 100 MG TAKE ONE TABLET BY MOUTH TWICE DAILY WITH FOOD Active Gabapentin 300 MG Orally Once a day 1 capsule before bedtime 24h 30 Active Onglyza 5 mg Orally Once a day 1 tablet 24h 30 Active Centrum Silver 50+Women - Active Accu-Chek Soft Touch Lancets - as directed 8h February, 30 days Active Sucralfate 1 GM Orally 4 times a day 1 tablet 6h Active Lisinopril 20 MG TAKE ONE TABLET BY MOUTH TWICE DAILY Active Pioglitazone HCl-Metformin HCl 15-500 MG TAKE ONE TABLET BY MOUTH ONCE DAILY WITH A MEAL 30 Active Dexilant 60 mg Orally Once a day 1 capsule 24h Aug, 90 days Active Tizanidine HCl 4 MG Orally Three times a day 1 capsule as needed 8h Active PredniSONE 20 MG Orally Once a day 2 tablet 24h February, February, 5 days Active Fish Oil 1000 MG Orally twice a day 1 capsule 12h Active Oxycodone-Acetaminophen 7.5-325 MG Orally every 6 hrs 1 tablet as n eeded 6h Jan, Active RESULTS No Results PROCEDURES No Known [...] polyp removal/colonoscopy Hospitalization History heart attack x3 [id number] 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
--- OUTSIDE RECORDS SUMMARY | 2020-01-21 19:09 | XMS REPORT ---
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 3 Active 009808242 Problem GERD without esophagitis K21.9 Activ e 448015504 Problem Other spondylosis with myelopathy, cervical region M47.12 Active 86094998 Problem Lumbago with sciatica, right side M54.41 Active [id number] Problem Other spondylosis with radiculopathy, cervical region M47.22 Active 627767287 Problem Lumbago with sciatica, left side M54.42 Active 968800550 Problem Left kidney mass N28.89 Active 309 320094 Problem Renal cell carcinoma of left kidney C64.2 Active 949348947 Problem Metabolic disorder, unspecified E88.9 Active 548705911 Problem Type 2 diabetes mellitus with other specified complication E11.69 Active 90097859354913 Problem Hyperlipidemia, unspecified E78.5 Ac tive 24162535 Problem Pain syndrome, chronic G89.4 Active 819063669 Problem Right renal mass N28.89 Active 309 612610 Problem Type 2 diabetes mellitus wit hout complication, without long-term current use of insulin E11.9 Active 937054057 Problem Essential hypertension I10 Active 54023115 Problem Pulmonary nodule R91.1 Active 427 269988 Problem Body mass index (BMI) of 32.0-32.9 in adult Z68.32 Active 969057165 Problem Retrolisthesis of vertebrae M43.10 Ac tive 725890872 Problem Other obesity due to excess calories E66.09 Active 392851760 Problem Chronic esophagogastric ulcer K25.7 Active 20746661 Problem Spondylosis of cervical region without myelopath y or radiculopathy M47.812 Active 304248137 Problem Major depressive disorder, recurrent episode, moderate F33.1 Active 816467894 ALLERGIES Substance Reaction Event Type Date Status Hydrocodone-Acetaminophen anaphylaxis Drug Allergy Jan, Ac tive Feldene cintron's palsy Drug Allergy Jan, Active Doxycycline Monohydrate anaphylaxis Drug Allergy Jan, Acti ve ENCOUNTERS Encounter Location Date Diagnosis [facility] [address] [facility] [id number] [address] [place] [phone] May, [facility] [address] [facility] [id number] [address] [place] [phone] Apr, [facility] [address] [facility] [id number] [address] [place] [id number] Apr, Spondylosis of cervical hakan on without myelopathy or radiculopathy M47.812 [facility] [address] [facility] [id number] [address] [place] [address] Apr, [facility] [address] [id number] [address] [place] [phone] Apr, Other spondylosis with radic ulopathy, cervical region M47.22 [facility] [address] [facility] [id number] [address] [place] [phone] Apr, [facility] [address] [facility] [id number] [address] [place] [phone] Apr, Other spondylosis with radic ulopathy, cervical region M47.22 ; Other spondylosis with myelopathy, cervical region M47.12 and Renal cell carcinoma of left kidney C64.2 [facility] [address] [facility] [id number] [address] [place] [phone] Apr, [facility] [address] [facility] [id number] [address] [place] [phone] Apr, [facility] [address] [facility] [id number] [address] [place] [phone] Mar, Type 2 diabetes mellitus wit hout [...] and Hyperlipidemia, unspecified E78.5 [facility] [place] [address] [phone] Mar, Acute suppurative otitis med ia of both ears without spontaneous rupture of tympanic membranes, recurrence not specified H66.003 [place] [address] [address] Mar, [place] [address] [address] Mar, Retrolisthesis of vertebrae M43.10 [place] [address] [address] Mar, Low back pain, unspecified b ack pain laterality, unspecified chronicity, with sciatica presence unspecified M54.5 and Type 2 diabetes mellitus without complication, without long-term current use of insulin E11.9 [place] [address] [address] [place] [id number] [address] [place] [address] February, [place] [address] [address] February, Retrolisthesis of vertebrae M43.10 [facility] [place] [address] [address] February, Strain of neck muscle, initi al encounter S16.1XXA [place] [address] [address] February, Type 2 diabetes mellitus wit hout [...] Seasonal allergic rhinitis due to pollen J30.1 [place] [address] [address] [facility] [id number] [address] [place] [address] February, Essential hypertension I10 ; Retrolisthesis of vertebrae M43.10 ; Body mass index (BMI) of 32.0-32.9 in adult Z68.32 and Type 2 diabetes mellitus without complication, without long-term current use of insulin E11.9 [place] [address] [facility] [id number] [address] [place] [phone] February, Type 2 diabetes mellitus wit hout complication, without long-term current use of insulin E11.9 [place] [address] [address] [facility] [id number] [address] [place] [phone] Jan, Lumbago with sciatica, right side M54.41 [facility] [address] [facility] [id number] [address] [place] [phone] Jan, Sore throat J02.9 [facility] [address] [facility] [id number] [address] [place] [phone] Dec, [facility] [address] [facility] [id number] [address] [place] [phone] Dec, Type 2 diabetes mellitus wit hout complication, without long-term current use of insulin E11.9 [place] [address] [address] [facility] [id number] [address] [place] [phone] Dec, [facility] [address] [place] [id number] [address] [place] [phone] 14 Dec, 2017 [facility] [address] [place] [id number] [address] [place] [phone] Dec, [facility] [address] [place] [id number] [place] [address] Dec, Type 2 diabetes mellitus wit hout [...] pollen J30.1 and GERD without esophagitis K21.9 [facility] [address] [address] Dec, [facility] [address] [place] [id number] [address] [place] [phone] Nov, [facility] [address] [place] [id number] [address] [place] [phone] Nov, [facility] [address] [place] [id number] [address] [place] [phone] Nov, [facility] [address] [place] [id number] [address] [place] [phone] Nov, [facility] [address] [place] [id number] [address] [place] [phone] Oct, [facility] [address] [place] [id number] [address] [place] [phone] Oct, [facility] [address] [place] [id number] [address] [place] [phone] Oct, [facility] [address] [place] [id number] [address] [place] [address] 11 Oct, 2018 Well woman exam with routine gynecological exam Z01.419 ; Screen for STD (sexually transmitted disease) Z11.3 ; Screening breast examination Z12.31 ; Type 2 diabetes mellitus without complication, without long-term current use of insulin E11.9 ; Other obesity due to excess calories E66.09 and Body mass index (BMI) of 32.0-32.9 in adult Z68.32 [place] [address] [address] [facility] [id number] [address] [place] [phone] 09 Oct, 2017 Ganglion of left wrist M67.4 [address] [place] [address] [address] [place] [id number] [place] [phone] Oct, [place] [address] [address] [place] [id number] [place] [phone] Oct, [facility] [address] [facility] [id number] [address] [place] [phone] Oct, Ganglion cyst M67.40 [place] [address] [address] [facility] [id number] [address] [place] [phone] Oct, [place] [address] [address] [place] [id number] [place] [phone] Sep, [place] [address] [address] [place] [id number] [place] [phone] Sep, Major depressive disorder, r ecurrent episode, moderate F33.1 [place] [address] [address] [facility] [id number] [address] [place] [phone] Sep, [place] [address] [address] [facility] [id number] [address] [place] [address] Sep, Right renal mass N28.89 [facility] [address] [facility] [id number] [address] [place] [phone] Sep, [place] [address] [address] [place] [id number] [address] [place] [phone] Sep, [place] [address] [address] [place] [id number] [address] [place] [phone] Sep, Right renal mass N28.89 [facility] [address] [id number] [address] [place] [phone] Sep, [facility] [address] [facility] [id number] [address] [place] [phone] Sep, [facility] [address] [facility] [id number] [address] [place] [phone] Sep, [facility] [address] [facility] [id number] [address] [place] [phone] Sep, [facility] [address] [facility] [id number] [address] [place] [phone] Sep, [facility] [address] [facility] [id number] [address] [place] [phone] Sep, [facility] [address] [facility] [id number] [address] [place] [id number] Sep, Pulmonary nodule R91.1 [facility] [address] [facility] [id number] [address] [place] [phone] Aug, [facility] [address] [place] [id number] [address] [place] [phone] Aug, Right renal mass N28.89 and Pulmonary nodule R91.1 [facility] [address] [place] [id number] [address] [place] [phone] Aug, Essential hypertension I10 ; Right renal mass N28.89 ; Chronic gastric ulcer, unspecified whether gastric ulcer hemorrhage or perforation present K25.7 ; Spondylosis of cervical region without myelopathy or radiculopathy M47.812 ; Retrolisthesis of vertebrae M43.10 and Hospital discharge follow-up Z09 [facility] [address] [facility] [id number] [address] [place] [phone] 14 Aug, 2017 [facility] [address] [place] [id number] [address] [place] [phone] Aug, [facility] [address] [facility] [id number] [address] [place] [phone] Aug, [facility] [address] [facility] [id number] [address] [place] [address] Aug, Pain syndrome, chronic G89.4 ; Lumbago with sciatica, right side M54.41 ; Lumbago with sciatica, left side M54.42 ; Other chronic pain G89.29 ; Cervicalgia M54.2 ; Controlled substance agreement signed Z79.899 and Essential hypertension I10 [facility] [address] [facility] [id number] [address] [place] [phone] Aug, [place] [address] [address] [facility] [id number] [address] [place] [phone] Jul, Encounter to establish care Z76.89 ; [...] HISTORY Never Assessed REASON FOR VISIT sore throat and bilateral earache. been sick since yesterday. [email or web address] PLAN OF CARE Activity Details Follow Up prn Reason: VITAL SIGNS Height 68 in 2018-01-21 Weight 216.2 lbs 2018-01-21 Temperature 97.5 degrees Fahrenheit 2018-01-21 Heart Rate 72 bpm 2018-01-21 Respiratory Rate 20 2018-01-21 BMI 32.87 kg/m2 2018-01-21 Blood pressure systolic 136 mmHg 2018-01-21 Blood pressure diastolic 84 mmHg 2018-01-21 MEDICATIONS Medication Instructions Dosage Frequency Start Date End Date Duration S tatus Invokana 100 mg Orally before breakfast Once a day 1 tablet 24h Dec, February, 30 day(s) Active Sertraline HCl 25 MG TAKE ONE TABLET BY MOUTH ONCE DAILY 30 Active Clopidogrel Bisulfate 75 MG Orally Once a day 1 tablet 24h Not-Taking Tizanidine HCl 4 MG TAKE ONE TABLET BY MOUTH THREE TIMES D AILY NEEDED 30 Not-Taking Gabapentin 300 MG Orally Once a day 1 capsule before bedtime 24h Dec, 30 day(s) Active Oxycodone-Acetaminophen 7.5-325 MG Orally every 6 hrs 1 tablet as n eeded 6h Dec, 28 days Active Metoprolol Tartrate 100 MG TAKE ONE TABLET BY MOUTH TWICE DAILY WITH FOOD 30 Active Pioglitazone HCl-Metformin HCl 15-500 MG TAKE ONE TABLET BY MOUTH ONCE DAILY WITH A MEAL 30 Active Sucralfate 1 GM Orally 4 times a day 1 tablet 6h Active Fish Oil 1000 MG Orally twice a day 1 capsule 12h Active Lisinopril 20 MG TAKE ONE TABLET BY MOUTH TWICE DAILY 30 Active Dexilant 60 mg Orally Once a day 1 capsule 24h Aug, 90 days Active Aspirin 81 MG Orally Once a day 1 tablet 24h 90 days Active Valium 5 mg Orally once 30 minutes prior to scan- february repeat x 1 5mg tablet if needed Aug, 1 days Not-Taking Amoxicillin 500 mg Orally every 8 hrs 1 capsule 8h Jan, Jan, 10 day(s) Active Tizanidine HCl 4 MG Orally Three times a day 1 capsule as needed 8h 30 days Active Fluticasone Propionate 50 MCG/ACT Nasally Once a day 1 spray in each nostril 24h Dec, 30 day(s) Active Atorvastatin Calcium 20 mg Orally Once a day 1 tablet 24h 2017 90 days Active RESULTS No Results PROCEDURES No [...] polp removal/colonoscopy Hospitalization History heart attack x3 [id number] 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
--- OUTSIDE RECORDS SUMMARY | 2020-01-21 19:09 | XMS REPORT ---
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 Active 214406131 Problem Seasonal allergic rhinitis due to pollen J30.1 Active 39383907 Problem Metabolic disorder, unspecified E88.9 Active 454688162 Problem Skin ulcer of buttock, limited to breakdown of skin L98.411 Active 81232504 Problem Lumbago with sciatica, right side M54.41 Active 210861122241367 Problem Other spondylosis with myelopathy, cervical region M47.12 Active 22755990 Problem Lumbago with sciatica, left side M54.42 Active 305666762 Problem Type 2 diabetes mellitus wit hout complication, without long-term current use of insulin E11.9 Active 317939319 Problem Hyperlipidemia, unspecified E78.5 Ac tive 35679327 Problem Renal cell carcinoma of left kidney C64.2 Active 329884679 Problem Other spondylosis with radiculopathy, cervical region M47.22 Active 542277681 Problem Type 2 diabetes mellitus with other specified complication E11.69 Active 35849724773458 Problem Right renal mass N28.89 Active 309 143242 Problem Retrolisthesis of vertebrae M43.10 Ac tive 156310457 Problem Essential hypertension I10 Active 72097961 Problem Pain syndrome, chronic G89.4 Active 953163141 Problem Body mass index (BMI) of 32.0-32.9 in adult Z68.32 Active 803585563 Problem Other obesity due to excess calories E66.09 Active 986820317 Problem Left kidney mass N28.89 Active 309 277880 Problem Spondylosis of cervical region without myelopath y or radiculopathy M47.812 Active 475743329 Problem Major depressive disorder, recurrent episode, moderate F33.1 Active 493826042 Problem Chronic esophagogastric ulcer K25.7 Active 18150162 Problem Pulmonary nodule R91.1 Active 427 466922 Problem GERD without esophagitis K21.9 Activ e [id number] ALLERGIES No Information ENCOUNTERS Encounter Location Date Diagnosis [place] [address] [id number] 17 Jun, 2018 [place] [address] [address] Jun, [place] [address] [address] May, [place] [address] [address] May, [facility] [address] [address] May, Skin ulcer of buttock, limit ed to breakdown of skin L98.411 [facility] [address] [address] May, Fever, unspecified fever cau se R50.9 [place] [address] [address] Apr, Acute cystitis with hematuri a N30.01 and Dehydration E86.0 [place] [address] [address] Apr, [facility] [address] [address] Apr, Dysuria R30.0 and Acute cyst itis without hematuria N30.00 [place] [address] [address] Apr, [place] [address] [address] Apr, Spondylosis of cervical hakan on without myelopathy or radiculopathy M47.812 [place] [address] [place] [id number] [place] [address] Apr, [facility] [address] [place] [id number] [place] [id number] Apr, Other spondylosis with radic ulopathy, cervical region M47.22 [place] [address] [place] [id number] [place] [address] Apr, [place] [address] [place] [id number] [place] [address] Apr, Other spondylosis with radic ulopathy, cervical region M47.22 ; Other spondylosis with myelopathy, cervical region M47.12 and Renal cell carcinoma of left kidney C64.2 [place] [address] [place] [id number] [place] [address] Apr, [place] [address] [address] Apr, Lumbago with sciatica, right side M54.41 and Lumbago with sciatica, left side M54.42 [place] [address] [address] Mar, Type 2 diabetes mellitus wit hout [...] Hyperlipidemia, unspecified E78.5 [facility] [address] [facility] [id number] [address] [place] [address] Mar, Acute suppurative otitis med ia of both ears without spontaneous rupture of tympanic membranes, recurrence not specified H66.003 [place] [address] [address] Mar, [place] [address] [address] Mar, Retrolisthesis of vertebrae M43.10 [facility] [place] [address] [address] Mar, Low back pain, unspecified b ack pain laterality, unspecified chronicity, with sciatica presence unspecified M54.5 and Type 2 diabetes mellitus without complication, without long-term current use of insulin E11.9 [place] [address] [address] February, [place] [address] [address] February, Retrolisthesis of vertebrae M43.10 [facility] [place] [address] [address] February, Strain of neck muscle, initi al encounter S16.1XXA [place] [address] [address] February, Type 2 diabetes mellitus wit hout [...] Seasonal allergic rhinitis due to pollen J30.[address] [address] February, Essential hypertension I10 ; Retrolisthesis of vertebrae M43.10 ; Body mass index (BMI) of 32.0-32.9 in adult Z68.32 and Type 2 diabetes mellitus without complication, without long-term current use of insulin E11.9 [facility] [address] [facility] [id number] [address] [place] [address] February, Type 2 diabetes mellitus wit hout complication, without long-term current use of insulin E11.9 [facility] [address] [id number] [address] [place] [address] Jan, Lumbago with sciatica, right side M54.41 [facility] IN [facility] [address] [id number] [address] [place] [address] Jan, Sore throat J02.9 [facility] [address] [facility] [id number] [address] [place] [address] Dec, [facility] [address] [facility] [id number] [address] [place] [address] Dec, Type 2 diabetes mellitus wit hout complication, without long-term current use of insulin E11.9 [place] [address] [id number] [address] [place] [address] Dec, [facility] [address] [facility] [id number] [address] [place] [address] Dec, [place] [address] [facility] [id number] [address] [place] [address] Dec, [facility] [address] [facility] [id number] [address] [place] [address] Dec, Type 2 diabetes mellitus wit hout [...] pollen J30.1 and GERD without esophagitis K21.9 [facility] [address] [address] Dec, [facility] [address] [place] [id number] [place] [phone] Nov, [facility] [address] [address] Nov, [facility] [address] [address] Nov, [facility] [address] [address] Nov, [facility] [address] [address] Oct, [facility] [address] [place] [id number] [place] [address] Oct, [place] [address] [address] Oct, [place] [address] [address] Oct, Well woman exam with routine gynecological exam Z01.419 ; Screen for STD (sexually transmitted disease) Z11.3 ; Screening breast examination Z12.31 ; Type 2 diabetes mellitus without complication, without long-term current use of insulin E11.9 ; Other obesity due to excess calories E66.09 and Body mass index (BMI) of 32.0-32.9 in adult Z68.32 [place] [address] [address] Oct, Ganglion of left wrist M67.4 [address] [place] [address] [place] [id number] [place] [address] Oct, [place] [address] [id number] [address] [place] [address] Oct, [facility] [address] [facility] [id number] [address] [place] [address] Oct, Ganglion cyst M67.40 [facility] [address] [facility] [id number] [address] [place] [address] Oct, [facility] [address] [facility] [id number] [address] [place] [address] Sep, [facility] [address] [facility] [id number] [address] [place] [address] Sep, Major depressive disorder, r ecurrent episode, moderate F33.1 [facility] [address] [facility] [id number] [address] [place] [address] Sep, [facility] [address] [facility] [id number] [address] [place] [address] Sep, Right renal mass N28.89 [facility] [address] [id number] [address] [place] [address] Sep, [facility] [address] [facility] [id number] [address] [place] [address] Sep, [facility] [address] [facility] [id number] [address] [place] [address] Sep, Right renal mass N28.89 [facility] [address] [facility] [id number] [address] [place] [address] Sep, [facility] [address] [facility] [id number] [address] [place] [address] Sep, [facility] [address] [facility] [id number] [address] [place] [address] Sep, [facility] [address] [facility] [id number] [address] [place] [phone] 05 Sep, 2017 [facility] [address] [facility] [id number] [address] [place] [address] Sep, [facility] [address] [facility] [id number] [address] [place] [address] Sep, [facility] [address] [facility] [id number] [address] [place] [address] Sep, Pulmonary nodule R91.1 [facility] [address] [place] [id number] [place] [address] Aug, [facility] [address] [place] [id number] [place] [address] Aug, Right renal mass N28.89 and Pulmonary nodule R91.1 [place] [address] [place] [id number] [place] [address] Aug, Essential hypertension I10 ; Right renal mass N28.89 ; Chronic gastric ulcer, unspecified whether gastric ulcer hemorrhage or perforation present K25.7 ; Spondylosis of cervical region without myelopathy or radiculopathy M47.812 ; Retrolisthesis of vertebrae M43.10 and Hospital discharge follow-up Z09 [place] [address] [place] [id number] [place] [address] Aug, [place] [address] [place] [id number] [place] [phone] Aug, [place] [address] [place] [id number] [place] [phone] Aug, [place] [address] [place] [id number] [place] [address] Aug, Pain syndrome, chronic G89.4 ; Lumbago with sciatica, right side M54.41 ; Lumbago with sciatica, left side M54.42 ; Other chronic pain G89.29 ; Cervicalgia M54.2 ; Controlled substance agreement signed Z79.899 and Essential hypertension I10 [facility] [address] [place] [id number] [place] [id number] Aug, [facility] [address] [place] [id number] [place] [address] Jul, Encounter to establish care Z76.89 ; [...] SOCIAL HISTORY Never Assessed REASON FOR VISIT FYI only PLAN OF CARE VITAL SIGNS MEDICATIONS Unknown [...] polyp removal/colonoscopy Hospitalization History heart attack x3 [id number] 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
--- OUTSIDE RECORDS SUMMARY | 2020-01-21 19:09 | XMS REPORT ---
Author Author Amy BLANCAS Organization 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 3 Active 571839165 Problem Seasonal allergic rhinitis due to pollen J30.1 Active 35156030 Problem Metabolic disorder, unspecified E88.9 Active 759823131 Problem Skin ulcer of buttock, limited to breakdown of skin L98.411 Active 99603488 Problem Lumbago with sciatica, right side M54.41 Active 560270263248510 Problem Other spondylosis with myelopathy, cervical region M47.12 Active 57749169 Problem Lumbago with sciatica, left side M54.42 Active 520666417 Problem Type 2 diabetes mellitus wit hout complication, without long-term current use of insulin E11.9 Active 001455501 Problem Hyperlipidemia, unspecified E78.5 Ac tive 07174590 Problem Renal cell carcinoma of left kidney C64.2 Active 265659361 Problem Other spondylosis with radiculopathy, cervical region M47.22 Active 055224982 Problem Type 2 diabetes mellitus with other specified complication E11.69 Active 21893022195798 Problem Right renal mass N28.89 Active 309 785629 Problem Retrolisthesis of vertebrae M43.10 Ac tive 232144940 Problem Essential hypertension I10 Active 39204428 Problem Pain syndrome, chronic G89.4 Active 901219716 Problem Body mass index (BMI) of 32.0-32.9 in adult Z68.32 Active 605335068 Problem Other obesity due to excess calories E66.09 Active 054171860 Problem Left kidney mass N28.89 Active 309 862177 Problem Spondylosis of cervical region without myelopath y or radiculopathy M47.812 Active 306248427 Problem Major depressive disorder, recurrent episode, moderate F33.1 Active 417579291 Problem Chronic esophagogastric ulcer K25.7 Active 92628232 Problem Pulmonary nodule R91.1 Active 427 703961 Problem GERD without esophagitis K21.9 Activ e 074972790 ALLERGIES No Information ENCOUNTERS Encounter Location Date Diagnosis [place] [id number] [address] 17 Jun, 2018 [place] [address] [address] Jun, [place] [address] [address] May, [place] [address] [address] May, [facility] [address] [address] May, Skin ulcer of buttock, limit ed to breakdown of skin L98.411 [facility] [address] [address] May, Fever, unspecified fever cau se R50.9 [place] [address] [address] Apr, Acute cystitis with hematuri a N30.01 and Dehydration E86.0 [place] [address] [address] Apr, [facility] [address] [address] Apr, Dysuria R30.0 and Acute cyst itis without hematuria N30.00 [place] [address] [address] Apr, [place] [address] [address] Apr, Spondylosis of cervical hakan on without myelopathy or radiculopathy M47.812 [place] [address] [place] [id number] [place] [address] Apr, [facility] [address] [place] [id number] [place] [address] Apr, Other spondylosis with radic ulopathy, cervical region M47.22 [place] [address] [address] [place] [id number] [place] [address] Apr, [place] [address] [place] [id number] [place] [address] Apr, Other spondylosis with radic ulopathy, cervical region M47.22 ; Other spondylosis with myelopathy, cervical region M47.12 and Renal cell carcinoma of left kidney C64.2 [place] [address] [address] [place] [id number] [place] [phone] Apr, [place] [address] [address] Apr, Lumbago with sciatica, right side M54.41 and Lumbago with sciatica, left side M54.42 [place] [address] [address] Mar, Type 2 diabetes mellitus wit hout [...] E11.69 and Hyperlipidemia, unspecified E78.5 [facility] [address] [facility] [id number] [address] [place] [phone] Mar, Acute suppurative otitis med ia of both ears without spontaneous rupture of tympanic membranes, recurrence not specified H66.003 [place] [address] [address] Mar, [place] [address] [address] Mar, Retrolisthesis of vertebrae M43.10 [facility] [place] [address] [address] Mar, Low back pain, unspecified b ack pain laterality, unspecified chronicity, with sciatica presence unspecified M54.5 and Type 2 diabetes mellitus without complication, without long-term current use of insulin E11.9 [place] [address] [address] February, [place] [address] [address] February, Retrolisthesis of vertebrae M43.10 [facility] [place] [address] [address] February, Strain of neck muscle, initi al encounter S16.1XXA [place] [address] [address] February, Type 2 diabetes mellitus wit hout [...] allergic rhinitis due to pollen J30.[address] [address] February, Essential hypertension I10 ; Retrolisthesis of vertebrae M43.10 ; Body mass index (BMI) of 32.0-32.9 in adult Z68.32 and Type 2 diabetes mellitus without complication, without long-term current use of insulin E11.9 [facility] [address] [facility] [id number] [address] [place] [address] February, Type 2 diabetes mellitus wit hout complication, without long-term current use of insulin E11.9 [facility] [address] [id number] [address] [place] [address] Jan, Lumbago with sciatica, right side M54.41 [facility] [address] [id number] [address] [place] [address] Jan, Sore throat J02.9 [facility] [address] [facility] [id number] [address] [place] [address] Dec, [facility] [address] [facility] [id number] [address] [place] [address] Dec, Type 2 diabetes mellitus wit hout complication, without long-term current use of insulin E11.9 [place] [address] [id number] [address] [place] [address] Dec, [facility] [address] [facility] [id number] [address] [place] [address] Dec, [place] [address] [facility] [id number] [address] [place] [address] Dec, [facility] [address] [facility] [id number] [address] [place] [address] Dec, Type 2 diabetes mellitus wit hout [...] J30.1 and GERD without esophagitis K21.9 [facility] [address] [address] Dec, [facility] [address] [place] [id number] [place] [address] Nov, [facility] [address] [address] Nov, [facility] [address] [address] Nov, [facility] [address] [address] Nov, [facility] [address] [address] Oct, [facility] [address] [place] [id number] [place] [address] Oct, [place] [address] [address] Oct, [place] [address] [address] Oct, Well woman exam with routine gynecological exam Z01.419 ; Screen for STD (sexually transmitted disease) Z11.3 ; Screening breast examination Z12.31 ; Type 2 diabetes mellitus without complication, without long-term current use of insulin E11.9 ; Other obesity due to excess calories E66.09 and Body mass index (BMI) of 32.0-32.9 in adult Z68.32 [place] [address] [address] Oct, Ganglion of left wrist M67.4 [address] [place] [address] [address] [place] [id number] [place] [address] Oct, [place] [address] [id number] [address] [place] [address] Oct, [facility] [address] [facility] [id number] [address] [place] [address] Oct, Ganglion cyst M67.40 [facility] [address] [facility] [id number] [address] [place] [address] Oct, [facility] [address] [facility] [id number] [address] [place] [address] Sep, [facility] [address] [facility] [id number] [address] [place] [address] Sep, Major depressive disorder, r ecurrent episode, moderate F33.1 [facility] [address] [facility] [id number] [address] [place] [address] Sep, [facility] [address] [facility] [id number] [address] [place] [address] Sep, Right renal mass N28.89 [facility] [address] [id number] [address] [place] [address] Sep, [facility] [address] [facility] [id number] [address] [place] [address] Sep, [facility] [address] [facility] [id number] [address] [place] [address] Sep, Right renal mass N28.89 [facility] [address] [facility] [id number] [address] [place] [address] Sep, [facility] [address] [facility] [id number] [address] [place] [address] Sep, [facility] [address] [facility] [id number] [address] [place] [address] Sep, [facility] [address] [facility] [id number] [address] [place] [address] 05 Sep, 2017 [facility] [address] [facility] [id number] [address] [place] [address] Sep, [facility] [address] [facility] [id number] [address] [place] [phone] Sep, [facility] [address] [facility] [id number] [address] [place] [phone] Sep, Pulmonary nodule R91.1 [facility] [address] [place] [id number] [place] [address] Aug, [facility] [address] [place] [id number] [place] [address] Aug, Right renal mass N28.89 and Pulmonary nodule R91.1 [place] [address] [place] [id number] [place] [address] Aug, Essential hypertension I10 ; Right renal mass N28.89 ; Chronic gastric ulcer, unspecified whether gastric ulcer hemorrhage or perforation present K25.7 ; Spondylosis of cervical region without myelopathy or radiculopathy M47.812 ; Retrolisthesis of vertebrae M43.10 and Hospital discharge follow-up Z09 [place] [address] [place] [id number] [place] [address] Aug, [place] [address] [place] [id number] [place] [phone] Aug, [place] [address] [place] [id number] [place] [phone] Aug, [place] [address] [place] [id number] [place] [address] Aug, Pain syndrome, chronic G89.4 ; Lumbago with sciatica, right side M54.41 ; Lumbago with sciatica, left side M54.42 ; Other chronic pain G89.29 ; Cervicalgia M54.2 ; Controlled substance agreement signed Z79.899 and Essential hypertension I10 [facility] [address] [place] [id number] [place] [phone] Aug, 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
--- OUTSIDE RECORDS SUMMARY | 2020-01-21 19:09 | XMS REPORT ---
Author Author Amy BLANCAS Organization [facility] Address [address] [place] [address] Care Team Providers Care Tourism Radio Presenter Name Role Phone BLANCASNADER YeeELE Unavailable PROBLEMS Type Condition ICD9-CM Code [id number] Code Onset Dates Condition S tatus SNOMED Code Problem Seasonal allergic rhinitis due to pollen J30.1 Active 57798263 Problem 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 3 Active 206047085 Problem GERD without esophagitis K21.9 Activ e 544753979 Problem Other spondylosis with myelopathy, cervical region M47.12 Active 11681479 Problem Lumbago with sciatica, right side M54.41 Active 011630796294674 Problem Other spondylosis with radiculopathy, cervical region M47.22 Active 889765137 Problem Lumbago with sciatica, left side M54.42 Active 335003994 Problem Left kidney mass N28.89 Active 309 564681 Problem Renal cell carcinoma of left kidney C64.2 Active 713253652 Problem Metabolic disorder, unspecified E88.9 Active 939009783 Problem Type 2 diabetes mellitus with other specified complication E11.69 Active 93209641262287 Problem Hyperlipidemia, unspecified E78.5 Ac tive 29134370 Problem Pain syndrome, chronic G89.4 Active 923777755 Problem Right renal mass N28.89 Active 309 868853 Problem Type 2 diabetes mellitus wit hout complication, without long-term current use of insulin E11.9 Active 159654007 Problem Essential hypertension I10 Active 23359081 Problem Pulmonary nodule R91.1 Active 427 115302 Problem Body mass index (BMI) of 32.0-32.9 in adult Z68.32 Active 772247857 Problem Retrolisthesis of vertebrae M43.10 Ac tive 788325739 Problem Other obesity due to excess calories E66.09 Active 144344227 Problem Chronic esophagogastric ulcer K25.7 Active 38305832 Problem Spondylosis of cervical region without myelopath y or radiculopathy M47.812 Active 834840239 Problem Major depressive disorder, recurrent episode, moderate F33.1 Active 696465252 ALLERGIES No Information ENCOUNTERS Encounter Location Date Diagnosis [facility] [address] [facility] [id number] [address] [place] [phone] Jun, [facility] [address] [facility] [id number] [address] [place] [phone] May, [facility] [address] [place] [id number] [address] [place] [phone] May, Fever, unspecified fever cau se R50.9 [place] [address] [facility] [id number] [place] [phone] Apr, Acute cystitis with hematuri a N30.01 and Dehydration E86.0 [place] [id number] [place] [id number] [address] [place] [phone] Apr, [facility] [address] [place] [id number] [address] [place] [phone] Apr, Dysuria R30.0 and Acute cyst itis without hematuria N30.00 [place] [id number] [place] [id number] [address] [place] [phone] Apr, [facility] [address] [place] [id number] [address] [place] [phone] Apr, Spondylosis of cervical hakan on without myelopathy or radiculopathy M47.812 [facility] [address] [facility] [id number] [address] [place] [phone] Apr, [facility] [address] [place] [id number] [address] [place] [phone] Apr, Other spondylosis with radic ulopathy, cervical region M47.22 [facility] [address] [place] [id number] [address] [place] [phone] Apr, [facility] [address] [phone] 17 Apr, 2018 Other spondylosis with radic ulopathy, cervical region M47.22 ; Other spondylosis with myelopathy, cervical region M47.12 and Renal cell carcinoma of left kidney C64.2 [facility] [address] [phone] Apr, [place] [address] [phone] Apr, Lumbago with sciatica, right side M54.41 and Lumbago with sciatica, left side M54.42 [place] [address] [phone] Mar, Type 2 diabetes mellitus wit hout [...] specified complication E11.69 and Hyperlipidemia, unspecified E78.5 [facility] [address] [phone] Mar, Acute suppurative otitis med ia of both ears without spontaneous rupture of tympanic membranes, recurrence not specified H66.003 [facility] [address] [place] [id number] [address] [place] [phone] Mar, [place] [address] [phone] Mar, Retrolisthesis of vertebrae M43.10 [facility] [address] [place] [id number] [address] [place] [phone] Mar, Low back pain, unspecified b ack pain laterality, unspecified chronicity, with sciatica presence unspecified M54.5 and Type 2 diabetes mellitus without complication, without long-term current use of insulin E11.9 [place] [address] [place] [id number] [address] [place] [phone] February, [place] [address] [id number] February, Retrolisthesis of vertebrae M43.10 [facility] [address] [id number] February, Strain of neck muscle, initi al encounter S16.1XXA [place] [address] [address] February, Type 2 diabetes mellitus wit hout [...] Seasonal allergic rhinitis due to pollen J30.1 [place] [address] [address] February, Essential hypertension I10 ; Retrolisthesis of vertebrae M43.10 ; Body mass index (BMI) of 32.0-32.9 in adult Z68.32 and Type 2 diabetes mellitus without complication, without long-term current use of insulin E11.9 [place] [address] [place] [id number] [address] [place] [phone] February, Type 2 diabetes mellitus wit hout complication, without long-term current use of insulin E11.9 [place] [address] [phone] Jan, Lumbago with sciatica, right side M54.41 [facility] [address] [facility] [id number] [address] [place] [phone] Jan, Sore throat J02.9 [facility] [address] [facility] [id number] [address] [place] [phone] Dec, [facility] [address] [facility] [id number] [address] [place] [phone] Dec, Type 2 diabetes mellitus wit hout complication, without long-term current use of insulin E11.9 [facility] [address] [facility] [id number] [address] [place] [phone] 14 Dec, 2017 [facility] [address] [facility] [id number] [address] [place] [phone] Dec, [facility] [address] [facility] [id number] [address] [place] [phone] Dec, [facility] [address] [facility] [id number] [address] [place] [phone] Dec, Type 2 diabetes mellitus wit hout [...] pollen J30.1 and GERD without esophagitis K21.9 [facility] [address] [facility] [id number] [address] [place] [phone] Dec, [facility] [address] [facility] [id number] [address] [place] [phone] Nov, [facility] [address] [place] [id number] [address] [place] [phone] Nov, [facility] [address] [place] [id number] [place] [phone] Nov, [facility] [address] [place] [id number] [place] [phone] Nov, [facility] [address] [place] [id number] [place] [phone] Oct, [facility] [address] [address] Oct, [facility] [address] [place] [id number] [place] [phone] Oct, [facility] [address] [id number] Oct, Well woman exam with routine gynecological exam Z01.419 ; Screen for STD (sexually transmitted disease) Z11.3 ; Screening breast examination Z12.31 ; Type 2 diabetes mellitus without complication, without long-term current use of insulin E11.9 ; Other obesity due to excess calories E66.09 and Body mass index (BMI) of 32.0-32.9 in adult Z68.32 [place] [address] [phone] Oct, Ganglion of left wrist M67.4 32 [place] [address] [id number] Oct, [facility] [address] [address] Oct, [facility] [address] [place] [id number] [place] [phone] Oct, Ganglion cyst M67.40 [facility] [address] [place] [id number] [place] [phone] Oct, [facility] [address] [place] [id number] [place] [phone] Sep, [facility] [address] [id number] [address] [place] [phone] Sep, Major depressive disorder, r ecurrent episode, moderate F33.1 [facility] [address] [id number] [address] [place] [phone] Sep, [facility] [address] [facility] [id number] [address] [place] [id number] Sep, Right renal mass N28.89 [facility] [address] [id number] [address] [place] [phone] Sep, [facility] [address] [id number] [address] [place] [phone] Sep, [facility] [address] [id number] [address] [place] [phone] Sep, Right renal mass N28.89 [facility] [address] [id number] [address] [place] [phone] Sep, [facility] [address] [id number] [address] [place] [phone] Sep, [facility] [address] [facility] [id number] [address] [place] [phone] Sep, [facility] [address] [facility] [id number] [address] [place] [phone] Sep, [facility] [address] [facility] [id number] [address] [place] [phone] Sep, [facility] [address] [id number] [address] [place] [phone] Sep, [facility] [address] [facility] [id number] [address] [place] [phone] Sep, Pulmonary nodule R91.1 [facility] [address] [id number] [address] [place] [phone] Aug, [facility] [address] [facility] [id number] [address] [place] [phone] 17 Aug, 2017 Right renal mass N28.89 and Pulmonary nodule R91.1 [place] [address] [place] [id number] [place] [phone] 16 Aug, 2017 Essential hypertension I10 ; Right renal mass N28.89 ; Chronic gastric ulcer, unspecified whether gastric ulcer hemorrhage or perforation present K25.7 ; Spondylosis of cervical region without myelopathy or radiculopathy M47.812 ; Retrolisthesis of vertebrae M43.10 and Hospital discharge follow-up Z09 [place] [address] [facility] [id number] [address] [place] [phone] 14 Aug, 2017 [place] [address] [place] [id number] [place] [phone] Aug, [place] [address] [place] [id number] [place] [phone] Aug, [place] [address] [place] [id number] [place] [phone] Aug, Pain syndrome, chronic G89.4 ; Lumbago with sciatica, right side M54.41 ; Lumbago with sciatica, left side M54.42 ; Other chronic pain G89.29 ; Cervicalgia M54.2 ; Controlled substance agreement signed Z79.899 and Essential hypertension I10 [place] [address] [place] [id number] [place] [phone] Aug, [place] [address] [place] [id number] [place] [phone] Jul, Encounter to establish care Z76.89 ; [...] SOCIAL HISTORY Never Assessed REASON FOR VISIT Patient came in today with c/o episodes of hypoglycemia, stating that the three medications that she is on is the cause. Spoke with Santy Blancas, patient is to [facility] blood glucose regulary and stop the [employer]oc[employer] at this time. Medications bryant ed in chart and glucometer sent to pharmacy. NADJA Jacobson PLAN OF CARE VITAL SIGNS MEDICATIONS Medication Instructions Dosage Frequency Start Date End Date Duration S tatus Accu-Chek Soft Touch Lancets - as directed 8h February, 30 days Active Accu-Chek Soft Touch Device - as directed 8h February, 30 days Active Blood Glucose Test Strip - In [...] polyp removal/colonoscopy Hospitalization History heart attack x3 [phone] 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
--- OUTSIDE RECORDS SUMMARY | 2020-01-21 19:09 | XMS REPORT ---
Author Author Amy BLANCAS Organization [facility] Address [address] [place] [address] Care Team Providers Care Interlibrary Loan Specialist Name Role Phone BLANCASNADER YeeELE Unavailable PROBLEMS Type Condition ICD9-CM Code PYS78-DM Code Onset Dates Condition S tatus SNOMED Code Problem 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 3 Active 956302448 Problem Seasonal allergic rhinitis due to pollen J30.1 Active 26709949 Problem Metabolic disorder, unspecified E88.9 Active 370103405 Problem Skin ulcer of buttock, limited to breakdown of skin L98.411 Active 56501298 Problem Lumbago with sciatica, right side M54.41 Active [id number] Problem Other spondylosis with myelopathy, cervical region M47.12 Active 57287714 Problem Lumbago with sciatica, left side M54.42 Active 152301708 Problem Type 2 diabetes mellitus wit hout complication, without long-term current use of insulin E11.9 Active 708453317 Problem Hyperlipidemia, unspecified E78.5 Ac tive 14474763 Problem Renal cell carcinoma of left kidney C64.2 Active 608141647 Problem Other spondylosis with radiculopathy, cervical region M47.22 Active 473171759 Problem Type 2 diabetes mellitus with other specified complication E11.69 Active 78178714342227 Problem Right renal mass N28.89 Active 309 356687 Problem Retrolisthesis of vertebrae M43.10 Ac tive 472491786 Problem Essential hypertension I10 Active 86539232 Problem Pain syndrome, chronic G89.4 Active 606635683 Problem Body mass index (BMI) of 32.0-32.9 in adult Z68.32 Active 934573287 Problem Other obesity due to excess calories E66.09 Active 770569401 Problem Left kidney mass N28.89 Active 309 512455 Problem Spondylosis of cervical region without myelopath y or radiculopathy M47.812 Active 939145745 Problem Major depressive disorder, recurrent episode, moderate F33.1 Active 552403314 Problem Chronic esophagogastric ulcer K25.7 Active 15066100 Problem Pulmonary nodule R91.1 Active 427 736007 Problem GERD without esophagitis K21.9 Activ e 373060487 ALLERGIES Substance Reaction Event Type Date Status Ketorolac Tromethamine Unknown Drug Allergy February, Activ e Hydrocodone-Acetaminophen anaphylaxis Drug Allergy February, Ac tive Feldene cintron's palsy Drug Allergy February, Active Doxycycline Monohydrate anaphylaxis Drug Allergy February, Acti ve ENCOUNTERS Encounter Location Date Diagnosis [place] [id number] [address] Jun, [place] [address] [address] May, [place] [address] [address] May, [facility] [address] [address] May, Skin ulcer of buttock, limit ed to breakdown of skin L98.411 [facility] [address] [address] May, Fever, unspecified fever cau se R50.9 [place] [address] [address] Apr, Acute cystitis with hematuri a N30.01 and Dehydration E86.0 [place] [address] [address] Apr, [facility] [address] [address] Apr, Dysuria R30.0 and Acute cyst itis without hematuria N30.00 [place] [address] [address] Apr, [place] [address] [address] Apr, Spondylosis of cervical hakan on without myelopathy or radiculopathy M47.812 [place] [address] [address] [facility] [id number] [address] [place] [address] Apr, [facility] [place] [id number] [place] [id number] [address] [place] [address] Apr, Other spondylosis with radic ulopathy, cervical region M47.22 [place] [address] [address] [facility] [id number] [address] [place] [address] Apr, [place] [address] [address] [facility] [id number] [address] [place] [address] Apr, Other spondylosis with radic ulopathy, cervical region M47.22 ; Other spondylosis with myelopathy, cervical region M47.12 and Renal cell carcinoma of left kidney C64.2 [place] [address] [address] [place] [id number] [address] [place] [address] Apr, [place] [address] [address] [facility] [id number] [address] [place] [address] Apr, Lumbago with sciatica, right side M54.41 and Lumbago with sciatica, left side M54.42 [place] [address] [address] [place] [id number] [address] [place] [address] Mar, Type 2 diabetes mellitus wit hout [...] specified complication E11.69 and Hyperlipidemia, unspecified E78.5 [facility] [place] [address] [address] Mar, Acute suppurative otitis med ia of both ears without spontaneous rupture of tympanic membranes, recurrence not specified H66.003 [place] [address] [address] Mar, [place] [address] [address] Mar, Retrolisthesis of vertebrae M43.10 [facility] [place] [address] [address] Mar, Low back pain, unspecified b ack pain laterality, unspecified chronicity, with sciatica presence unspecified M54.5 and Type 2 diabetes mellitus without complication, without long-term current use of insulin E11.[address] [address] February, [place] [address] [address] February, Retrolisthesis of vertebrae M43.10 [facility] [place] [address] [address] February, Strain of neck muscle, initi al encounter S16.1XXA [address] [address] February, Type 2 diabetes mellitus wit hout [...] Seasonal allergic rhinitis due to pollen J30.1 [address] [place] [address] February, Essential hypertension I10 ; Retrolisthesis of vertebrae M43.10 ; Body mass index (BMI) of 32.0-32.9 in adult Z68.32 and Type 2 diabetes mellitus without complication, without long-term current use of insulin E11.9 [place] [address] [address] [facility] [id number] [address] [place] [address] February, Type 2 diabetes mellitus wit hout complication, without long-term current use of insulin E11.9 [place] [address] [address] [facility] [id number] [address] [place] [address] Jan, Lumbago with sciatica, right side M54.41 [facility] [address] [facility] [id number] [address] [place] [address] Jan, Sore throat J02.9 [place] [address] [address] [facility] [id number] [address] [place] [address] Dec, [place] [address] [id number] [address] [place] [address] Dec, Type 2 diabetes mellitus wit hout complication, without long-term current use of insulin E11.9 [place] [address] [address] [facility] [id number] [address] [place] [address] Dec, [place] [address] [address] [facility] [id number] [address] [place] [address] Dec, [place] [address] [address] [facility] [id number] [address] [place] [address] Dec, [place] [address] [address] [facility] [id number] [address] [place] [address] Dec, Type 2 diabetes mellitus wit hout [...] pollen J30.1 and GERD without esophagitis K21.9 [facility] [address] [facility] [id number] [address] [place] [address] Dec, [facility] [address] [id number] [address] [place] [address] Nov, [place] [address] [id number] [address] [place] [address] Nov, [place] [address] [address] [facility] [id number] [address] [place] [address] Nov, [place] [address] [address] [facility] [id number] [address] [place] [address] Nov, [place] [address] [id number] [address] [place] [address] Oct, [place] [address] [id number] [address] [place] [address] Oct, [place] [address] [facility] [id number] [address] [place] [address] Oct, [place] [address] [address] [facility] [id number] [address] [place] [address] Oct, Well woman exam with routine gynecological exam Z01.419 ; Screen for STD (sexually transmitted disease) Z11.3 ; Screening breast examination Z12.31 ; Type 2 diabetes mellitus without complication, without long-term current use of insulin E11.9 ; Other obesity due to excess calories E66.09 and Body mass index (BMI) of 32.0-32.9 in adult Z68.32 [place] [address] [address] [place] [id number] [address] [place] [address] Oct, Ganglion of left wrist M67.4 32 [facility] [address] [id number] [address] [place] [address] Oct, [facility] [address] [id number] [address] [place] [address] Oct, [facility] [address] [id number] [address] [place] [address] Oct, Ganglion cyst M67.40 [facility] [address] [facility] [id number] [address] [place] [address] Oct, [facility] [address] [id number] [address] [place] [address] Sep, [facility] [address] [facility] [id number] [address] [place] [address] Sep, Major depressive disorder, r ecurrent episode, moderate F33.1 [facility] [address] [facility] [id number] [address] [place] [address] Sep, [facility] [address] [facility] [id number] [address] [place] [address] Sep, Right renal mass N28.89 [facility] [address] [facility] [id number] [address] [place] [address] Sep, [facility] [address] [facility] [id number] [address] [place] [address] Sep, [facility] [address] [facility] [id number] [address] [place] [address] Sep, Right renal mass N28.89 [facility] [address] [facility] [id number] [address] [place] [address] Sep, [facility] [address] [facility] [id number] [address] [place] [address] Sep, [facility] [address] [facility] [id number] [address] [place] [address] Sep, [facility] [address] [facility] [id number] [address] [place] [address] Sep, [facility] [address] [place] [address] Sep, [facility] [address] [place] [id number] [address] [place] [address] Sep, [facility] [address] [place] [id number] [address] [place] [address] Sep, Pulmonary nodule R91.1 [place] [address] [address] [place] [id number] [address] [place] [address] Aug, [place] [address] [address] [place] [id number] [place] [address] Aug, Right renal mass N28.89 and Pulmonary nodule R91.1 [place] [address] [address] [place] [id number] [place] [address] Aug, Essential hypertension I10 ; Right renal mass N28.89 ; Chronic gastric ulcer, unspecified whether gastric ulcer hemorrhage or perforation present K25.7 ; Spondylosis of cervical region without myelopathy or radiculopathy M47.812 ; Retrolisthesis of vertebrae M43.10 and Hospital discharge follow-up Z09 [place] [address] [address] 14 Aug, 2017 [place] [address] [address] Aug, [place] [id number] [place] [address] Aug, [place] [address] [address] Aug, Pain syndrome, chronic G89.4 ; Lumbago with sciatica, right side M54.41 ; Lumbago with sciatica, left side M54.42 ; Other chronic pain G89.29 ; Cervicalgia M54.2 ; Controlled substance agreement signed Z79.899 and Essential hypertension I10 [place] [address] [address] Aug, [facility] [address] [facility] [id number] [address] [place] [address] Jul, Encounter to establish care Z76.89 ; [...] HISTORY Never Assessed REASON FOR VISIT Pain management (chronic)[place], low blood sugar PLAN OF CARE Activity Details Follow Up 3 Months, prn Reason:CHM/DM VITAL SIGNS Height 68 in 2018-02-22 Weight 215.5 lbs 2018-02-22 Temperature 98.3 degrees Fahrenheit 2018-02-22 Heart Rate 76 bpm 2018-02-22 Respiratory Rate 20 2018-02-22 BMI 32.76 kg/m2 2018-02-22 Blood pressure systolic 122 mmHg 2018-02-22 Blood pressure diastolic 68 mmHg 2018-02-22 MEDICATIONS Medication Instructions Dosage Frequency Start Date End Date Duration S tatus Gabapentin 300 MG Orally Once a day 1 capsule before bedtime 24h 30 Active Atorvastatin Calcium 20 mg Orally Once a day 1 tablet 24h 19 2017 90 days Active Lisinopril 20 MG TAKE ONE TABLET BY MOUTH TWICE DAILY Active Centrum Silver 50+Women - Active Dexilant 60 mg Orally Once a day 1 capsule 24h Aug, 90 days Active Accu-Chek Soft Touch Device - as directed 8h February, 30 days Active Pioglitazone HCl-Metformin HCl 15-500 MG TAKE ONE TABLET BY MOUTH ONCE DAILY WITH A MEAL 30 Active Sertraline HCl 25 MG TAKE ONE TABLET BY MOUTH ONCE DAILY 30 Active Sucralfate 1 GM Orally 4 times a day 1 tablet 6h Active Accu-Chek Soft Touch Lancets - as directed 8h February, 30 days Active Metoprolol Tartrate 100 MG TAKE ONE TABLET BY MOUTH TWICE DAILY WITH FOOD Active Tizanidine HCl 4 MG TAKE ONE TABLET BY MOUTH THREE TIMES D AILY NEEDED 30 Not-Taking Aspirin 81 MG Orally Once a day 1 tablet 24h 90 days Active Tizanidine HCl 4 MG Orally Three times a day 1 capsule as needed 8h Active Blood Glucose Test Strip - In Vitro 3 times a day as directed 8h February, 30 days Active Onglyza 5 mg Orally Once a day 1 tablet 24h 30 Active Fish Oil 1000 MG Orally twice a day 1 capsule 12h Active Fluticasone Propionate 50 MCG/ACT Nasally Once a day 1 spray in each nostril 24h Dec, 30 day(s) Active Oxycodone-Acetaminophen 7.5-325 [...] polyp removal/colonoscopy Hospitalization History heart attack x3 [id number] 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
--- OUTSIDE RECORDS SUMMARY | 2020-01-21 19:09 | XMS REPORT ---
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 3 Active 669348054 Problem Seasonal allergic rhinitis due to pollen J30.1 Active 16441636 Problem Metabolic disorder, unspecified E88.9 Active 867470035 Problem Skin ulcer of buttock, limited to breakdown of skin L98.411 Active 09554342 Problem Lumbago with sciatica, right side M54.41 Active [id number] Problem Other spondylosis with myelopathy, cervical region M47.12 Active 57492086 Problem Lumbago with sciatica, left side M54.42 Active 681080086 Problem Type 2 diabetes mellitus wit hout complication, without long-term current use of insulin E11.9 Active 952273271 Problem Hyperlipidemia, unspecified E78.5 Ac tive 97193577 Problem Renal cell carcinoma of left kidney C64.2 Active 483463605 Problem Other spondylosis with radiculopathy, cervical region M47.22 Active 290760467 Problem Type 2 diabetes mellitus with other specified complication E11.69 Active 93726501888508 Problem Right renal mass N28.89 Active 309 451763 Problem Retrolisthesis of vertebrae M43.10 Ac tive 623186184 Problem Essential hypertension I10 Active 04228243 Problem Pain syndrome, chronic G89.4 Active 027181298 Problem Body mass index (BMI) of 32.0-32.9 in adult Z68.32 Active 036474981 Problem Other obesity due to excess calories E66.09 Active 584127807 Problem Left kidney mass N28.89 Active 309 672262 Problem Spondylosis of cervical region without myelopath y or radiculopathy M47.812 Active 885016923 Problem Major depressive disorder, recurrent episode, moderate F33.1 Active 215138594 Problem Chronic esophagogastric ulcer K25.7 Active 30987620 Problem Pulmonary nodule R91.1 Active 427 551014 Problem GERD without esophagitis K21.9 Activ e 948633767 ALLERGIES No Information ENCOUNTERS Encounter Location Date Diagnosis [place] [id number] [address] 17 Jun, 2018 [place] [address] [address] Jun, [place] [address] [address] May, [place] [address] [address] May, [facility] [address] [address] May, Skin ulcer of buttock, limit ed to breakdown of skin L98.411 [facility] [address] [address] May, Fever, unspecified fever cau se R50.9 [place] [address] [address] Apr, Acute cystitis with hematuri a N30.01 and Dehydration E86.0 [place] [address] [address] Apr, [facility] [address] [address] Apr, Dysuria R30.0 and Acute cyst itis without hematuria N30.00 [place] [address] [address] Apr, [place] [address] [address] Apr, Spondylosis of cervical hakan on without myelopathy or radiculopathy M47.812 [place] [address] [place] [id number] [place] [phone] Apr, [facility] [address] [place] [id number] [place] [address] Apr, Other spondylosis with radic ulopathy, cervical region M47.22 [place] [address] [address] [place] [id number] [place] [address] Apr, [place] [address] [place] [id number] [place] [address] Apr, Other spondylosis with radic ulopathy, cervical region M47.22 ; Other spondylosis with myelopathy, cervical region M47.12 and Renal cell carcinoma of left kidney C64.2 [place] [address] [place] [id number] [place] [address] Apr, [place] [address] [address] Apr, Lumbago with sciatica, right side M54.41 and Lumbago with sciatica, left side M54.42 [place] [address] [address] Mar, Type 2 diabetes mellitus wit hout [...] unspecified E78.5 [facility] [address] [facility] [id number] [address] [place] [address] Mar, Acute suppurative otitis med ia of both ears without spontaneous rupture of tympanic membranes, recurrence not specified H66.003 [place] [address] [address] Mar, [place] [address] [address] Mar, Retrolisthesis of vertebrae M43.10 [facility] [place] [address] [address] Mar, Low back pain, unspecified b ack pain laterality, unspecified chronicity, with sciatica presence unspecified M54.5 and Type 2 diabetes mellitus without complication, without long-term current use of insulin E11.9 [place] [address] [address] February, [place] [address] [address] February, Retrolisthesis of vertebrae M43.10 [facility] [place] [address] [address] February, Strain of neck muscle, initi al encounter S16.1XXA [place] [address] [address] February, Type 2 diabetes mellitus wit hout [...] Seasonal allergic rhinitis due to pollen J30.[address] [address] February, Essential hypertension I10 ; Retrolisthesis of vertebrae M43.10 ; Body mass index (BMI) of 32.0-32.9 in adult Z68.32 and Type 2 diabetes mellitus without complication, without long-term current use of insulin E11.9 [facility] [address] [facility] [id number] [address] [place] [address] February, Type 2 diabetes mellitus wit hout complication, without long-term current use of insulin E11.9 [facility] [address] [id number] [address] [place] [id number] Jan, Lumbago with sciatica, right side M54.41 [facility] [address] [id number] [address] [place] [address] Jan, Sore throat J02.9 [facility] [address] [facility] [id number] [address] [place] [address] Dec, [facility] [address] [facility] [id number] [address] [place] [address] Dec, Type 2 diabetes mellitus wit hout complication, without long-term current use of insulin E11.9 [place] [address] [id number] [address] [place] [address] Dec, [facility] [address] [facility] [id number] [address] [place] [address] Dec, [place] [address] [facility] [id number] [address] [place] [address] Dec, [facility] [address] [facility] [id number] [address] [place] [address] Dec, Type 2 diabetes mellitus wit hout [...] J30.1 and GERD without esophagitis K21.9 [facility] [address] [address] Dec, [facility] [address] [place] [id number] [place] [address] Nov, [facility] [address] [address] Nov, [facility] [address] [address] Nov, [facility] [address] [address] Nov, [facility] [address] [address] Oct, [facility] [address] [place] [id number] [place] [address] Oct, [place] [address] [address] Oct, [place] [address] [address] Oct, Well woman exam with routine gynecological exam Z01.419 ; Screen for STD (sexually transmitted disease) Z11.3 ; Screening breast examination Z12.31 ; Type 2 diabetes mellitus without complication, without long-term current use of insulin E11.9 ; Other obesity due to excess calories E66.09 and Body mass index (BMI) of 32.0-32.9 in adult Z68.32 [place] [address] [address] Oct, Ganglion of left wrist M67.4 32 [place] [address] [place] [id number] [place] [phone] Oct, [place] [address] [id number] [address] [place] [address] Oct, [facility] [address] [facility] [id number] [address] [place] [phone] Oct, Ganglion cyst M67.40 [facility] [address] [facility] [id number] [address] [place] [phone] Oct, [facility] [address] [facility] [id number] [address] [place] [address] Sep, [facility] [address] [facility] [id number] [address] [place] [phone] Sep, Major depressive disorder, r ecurrent episode, moderate F33.1 [facility] [address] [facility] [id number] [address] [place] [address] Sep, [facility] [address] [facility] [id number] [address] [place] [phone] Sep, Right renal mass N28.89 [facility] [address] [id number] [address] [place] [phone] Sep, [facility] [address] [facility] [id number] [address] [place] [address] Sep, [facility] [address] [facility] [id number] [address] [place] [address] Sep, Right renal mass N28.89 [facility] [address] [facility] [id number] [address] [place] [phone] Sep, [facility] [address] [facility] [id number] [address] [place] [address] Sep, [facility] [address] [facility] [id number] [address] [place] [address] Sep, [facility] [address] [facility] [id number] [address] [place] [id number] 05 Sep, 2017 [facility] [address] [facility] [id number] [address] [place] [id number] Sep, [facility] [address] [facility] [id number] [address] [place] [phone] Sep, [facility] [address] [facility] [id number] [address] [place] [id number] Sep, Pulmonary nodule R91.1 [facility] [address] [place] [id number] [place] [id number] Aug, [facility] [address] [place] [id number] [place] [phone] Aug, Right renal mass N28.89 and Pulmonary nodule R91.1 [place] [address] [place] [id number] [place] [address] Aug, Essential hypertension I10 ; Right renal mass N28.89 ; Chronic gastric ulcer, unspecified whether gastric ulcer hemorrhage or perforation present K25.7 ; Spondylosis of cervical region without myelopathy or radiculopathy M47.812 ; Retrolisthesis of vertebrae M43.10 and Hospital discharge follow-up Z09 [place] [place] [id number] [place] [address] Aug, [place] [address] [place] [id number] [place] [phone] Aug, [place] [address] [place] [id number] [place] [id number] Aug, [place] [address] [place] [id number] [place] [id number] Aug, Pain syndrome, chronic G89.4 ; Lumbago with sciatica, right side M54.41 ; Lumbago with sciatica, left side M54.42 ; Other chronic pain G89.29 ; Cervicalgia M54.2 ; Controlled substance agreement signed Z79.899 and Essential hypertension I10 [facility] [address] [place] [id number] [place] [id number] Aug, [facility] [address] [place] [id number] [place] [id number] Jul, Encounter to establish care Z76.89 ; [...] eeded 6h February, Mar, 28 days Active RESULTS No Results [...] polyp removal/colonoscopy Hospitalization History heart attack x3 [id number] 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
--- OUTSIDE RECORDS SUMMARY | 2020-01-21 19:10 | XMS REPORT ---
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 3 Active 240798358 Problem GERD without esophagitis K21.9 Activ e 817014836 Problem Other spondylosis with myelopathy, cervical region M47.12 Active 99806329 Problem Lumbago with sciatica, right side M54.41 Active [id number] Problem Other spondylosis with radiculopathy, cervical region M47.22 Active 853577081 Problem Lumbago with sciatica, left side M54.42 Active 413931088 Problem Left kidney mass N28.89 Active 309 952312 Problem Renal cell carcinoma of left kidney C64.2 Active 269896740 Problem Metabolic disorder, unspecified E88.9 Active 621696308 Problem Type 2 diabetes mellitus with other specified complication E11.69 Active 60432745481808 Problem Hyperlipidemia, unspecified E78.5 Ac tive 36736058 Problem Pain syndrome, chronic G89.4 Active 473707484 Problem Right renal mass N28.89 Active 309 105867 Problem Type 2 diabetes mellitus wit hout complication, without long-term current use of insulin E11.9 Active 190606994 Problem Essential hypertension I10 Active 13360649 Problem Pulmonary nodule R91.1 Active 427 606552 Problem Body mass index (BMI) of 32.0-32.9 in adult Z68.32 Active 143973267 Problem Retrolisthesis of vertebrae M43.10 Ac tive 706825521 Problem Other obesity due to excess calories E66.09 Active 831295447 Problem Chronic esophagogastric ulcer K25.7 Active 46360793 Problem Spondylosis of cervical region without myelopath y or radiculopathy M47.812 Active 982933977 Problem Major depressive disorder, recurrent episode, moderate F33.1 Active [id number] ALLERGIES No Information ENCOUNTERS Encounter Location Date Diagnosis [facility] [address] [facility] [id number] [address] [place] [address] May, [facility] [address] [place] [id number] [address] [place] [address] Apr, Other spondylosis with radic ulopathy, cervical region M47.22 ; Other spondylosis with myelopathy, cervical region M47.12 and Renal cell carcinoma of left kidney C64.2 [place] [address] [address] [place] [id number] [address] [place] [address] Apr, [facility] [address] [place] [id number] [address] [place] [address] Apr, [facility] [address] [address] Mar, Type 2 diabetes mellitus wit hout [...] specified complication E11.69 and Hyperlipidemia, unspecified E78.5 [facility] [address] [facility] [id number] [address] [place] [address] Mar, Acute suppurative otitis med ia of both ears without spontaneous rupture of tympanic membranes, recurrence not specified H66.003 [facility] [address] [place] [id number] [address] [place] [address] Mar, [facility] [address] [address] Mar, Retrolisthesis of vertebrae M43.10 [facility] WALK IN [place] [address] [address] Mar, Low back pain, unspecified b ack pain laterality, unspecified chronicity, with sciatica presence unspecified M54.5 and Type 2 diabetes mellitus without complication, without long-term current use of insulin E11.9 [place] [address] [address] February, [address] [address] February, Retrolisthesis of vertebrae M43.10 [facility] WALK IN [place] [address] [address] February, Strain of neck muscle, initi al encounter S16.1XXA [address] [address] February, Type 2 diabetes mellitus wit hout [...] Seasonal allergic rhinitis due to pollen J30.[address] [address] February, Essential hypertension I10 ; Retrolisthesis of vertebrae M43.10 ; Body mass index (BMI) of 32.0-32.9 in adult Z68.32 and Type 2 diabetes mellitus without complication, without long-term current use of insulin E11.9 [place] [address] [address] [place] [address] February, Type 2 diabetes mellitus wit hout complication, without long-term current use of insulin E11.9 [facility] [address] [place] [id number] [address] [place] [address] Jan, Lumbago with sciatica, right side M54.41 [facility] [address] [facility] [id number] [address] [place] [address] Jan, Sore throat J02.9 [facility] [address] [facility] [id number] [address] [place] [address] Dec, [facility] [address] [address] Dec, Type 2 diabetes mellitus wit hout complication, without long-term current use of insulin E11.9 [place] [address] [address] Dec, [facility] [address] [address] Dec, [facility] [address] [address] Dec, [facility] [address] [place] [id number] [address] [place] [address] Dec, Type 2 diabetes mellitus wit hout [...] pollen J30.1 and GERD without esophagitis K21.9 [facility] [address] [place] [id number] [address] [place] [address] Dec, [facility] [address] [facility] [id number] [address] [place] [address] Nov, [facility] [address] [facility] [id number] [address] [place] [address] Nov, [facility] [address] [facility] [id number] [address] [place] [address] Nov, [facility] [address] [facility] [id number] [address] [place] [address] Nov, [facility] [address] [facility] [id number] [address] [place] [address] Oct, [facility] [address] [facility] [id number] [address] [place] [address] Oct, [facility] [address] [facility] [id number] [address] [place] [address] Oct, [facility] [address] [facility] [id number] [address] [place] [address] Oct, Well woman exam with routine gynecological exam Z01.419 ; Screen for STD (sexually transmitted disease) Z11.3 ; Screening breast examination Z12.31 ; Type 2 diabetes mellitus without complication, without long-term current use of insulin E11.9 ; Other obesity due to excess calories E66.09 and Body mass index (BMI) of 32.0-32.9 in adult Z68.32 [facility] [address] [facility] [id number] [address] [place] [address] Oct, Ganglion of left wrist M67.4 32 [facility] [address] [facility] [id number] [address] [place] [address] Oct, [facility] [address] [place] [id number] [address] [place] [address] Oct, [facility] [address] [facility] [id number] [address] [place] [address] Oct, Ganglion cyst M67.40 [facility] [address] [id number] [address] [place] [address] Oct, [facility] [address] [id number] [address] [place] [address] Sep, [facility] [address] [facility] [id number] [address] [place] [address] Sep, Major depressive disorder, r ecurrent episode, moderate F33.1 [facility] [address] [id number] [address] [place] [address] Sep, [facility] [address] [id number] [address] [place] [address] 15 Sep, 2017 Right renal mass N28.89 [facility] [address] [id number] [address] [place] [address] Sep, [facility] [address] [facility] [id number] [address] [place] [address] Sep, [facility] [address] [id number] [address] [place] [address] Sep, Right renal mass N28.89 [facility] [address] [facility] [id number] [address] [place] [address] Sep, [facility] [address] [facility] [id number] [address] [place] [address] Sep, [facility] [address] [id number] [address] [place] [address] 05 Sep, 2017 [facility] [address] [facility] [id number] [address] [place] [phone] 05 Sep, 2017 [facility] [address] [facility] [id number] [address] [place] [address] Sep, [facility] [address] [facility] [id number] [address] [place] [address] 04 Sep, 2017 [facility] [address] [facility] [id number] [address] [place] [address] Sep, Pulmonary nodule R91.1 [facility] [address] [facility] [id number] [address] [place] [address] Aug, [facility] [address] [place] [id number] [address] [place] [address] Aug, Right renal mass N28.89 and Pulmonary nodule R91.1 [place] [address] [place] [id number] [address] [place] [address] Aug, Essential hypertension I10 ; Right renal mass N28.89 ; Chronic gastric ulcer, unspecified whether gastric ulcer hemorrhage or perforation present K25.7 ; Spondylosis of cervical region without myelopathy or radiculopathy M47.812 ; Retrolisthesis of vertebrae M43.10 and Hospital discharge follow-up Z09 [place] [address] [place] [id number] [address] [place] [address] 14 Aug, 2017 [place] [address] [place] [id number] [address] [place] [address] Aug, [place] [address] [place] [id number] [address] [place] [address] Aug, [place] [address] [place] [id number] [address] [place] [address] Aug, Pain syndrome, chronic G89.4 ; Lumbago with sciatica, right side M54.41 ; Lumbago with sciatica, left side M54.42 ; Other chronic pain G89.29 ; Cervicalgia M54.2 ; Controlled substance agreement signed Z79.899 and Essential hypertension I10 [place] [address] [place] [id number] [address] [place] [address] Aug, [place] [address] [place] [id number] [address] [place] [address] Jul, Encounter to establish care Z76.89 ; [...] polp removal/colonoscopy Hospitalization History heart attack x3 [phone] 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
--- OUTSIDE RECORDS SUMMARY | 2020-01-21 19:10 | XMS REPORT ---
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 3 Active 321529748 Problem GERD without esophagitis K21.9 Activ e 240407488 Problem Other spondylosis with myelopathy, cervical region M47.12 Active 30326760 Problem Lumbago with sciatica, right side M54.41 Active 229470676583073 Problem Other spondylosis with radiculopathy, cervical region M47.22 Active 897432442 Problem Lumbago with sciatica, left side M54.42 Active 588620319 Problem Left kidney mass N28.89 Active 309 870028 Problem Renal cell carcinoma of left kidney C64.2 Active 463120067 Problem Metabolic disorder, unspecified E88.9 Active 872541722 Problem Type 2 diabetes mellitus with other specified complication E11.69 Active 43832077797089 Problem Hyperlipidemia, unspecified E78.5 Ac tive 17424132 Problem Pain syndrome, chronic G89.4 Active 933726533 Problem Right renal mass N28.89 Active 309 615985 Problem Type 2 diabetes mellitus wit hout complication, without long-term current use of insulin E11.9 Active 289996687 Problem Essential hypertension I10 Active 13201494 Problem Pulmonary nodule R91.1 Active 427 951725 Problem Body mass index (BMI) of 32.0-32.9 in adult Z68.32 Active 377096493 Problem Retrolisthesis of vertebrae M43.10 Ac tive 651546351 Problem Other obesity due to excess calories E66.09 Active 570789000 Problem Chronic esophagogastric ulcer K25.7 Active 40770969 Problem Spondylosis of cervical region without myelopath y or radiculopathy M47.812 Active 304622664 Problem Major depressive disorder, recurrent episode, moderate F33.1 Active 319470225 ALLERGIES No Information ENCOUNTERS Encounter Location Date Diagnosis [facility] [address] [facility] [id number] [address] [place] [address] May, [facility] [address] [place] [id number] [address] [place] [address] Apr, Other spondylosis with radic ulopathy, cervical region M47.22 ; Other spondylosis with myelopathy, cervical region M47.12 and Renal cell carcinoma of left kidney C64.2 [place] [address] [address] [place] [id number] [address] [place] [address] Apr, [facility] [address] [place] [id number] [address] [place] [address] Apr, [facility] [address] [address] Mar, Type 2 diabetes mellitus wit hout [...] Hyperlipidemia, unspecified E78.5 [facility] [address] [facility] [id number] [address] [place] [address] Mar, Acute suppurative otitis med ia of both ears without spontaneous rupture of tympanic membranes, recurrence not specified H66.003 [facility] [address] [place] [id number] [address] [place] [address] Mar, [facility] [address] [address] Mar, Retrolisthesis of vertebrae M43.10 [facility] [place] [address] [address] Mar, Low back pain, unspecified b ack pain laterality, unspecified chronicity, with sciatica presence unspecified M54.5 and Type 2 diabetes mellitus without complication, without long-term current use of insulin E11.9 [place] [address] [address] February, [address] [address] February, Retrolisthesis of vertebrae M43.10 [facility] [place] [address] [address] February, Strain of neck muscle, initi al encounter S16.1XXA [address] [address] February, Type 2 diabetes mellitus wit hout [...] Seasonal allergic rhinitis due to pollen J30.[address] [address] February, Essential hypertension I10 ; Retrolisthesis of vertebrae M43.10 ; Body mass index (BMI) of 32.0-32.9 in adult Z68.32 and Type 2 diabetes mellitus without complication, without long-term current use of insulin E11.9 [place] [address] [address] [place] [address] February, Type 2 diabetes mellitus wit hout complication, without long-term current use of insulin E11.9 [facility] [address] [place] [id number] [address] [place] [address] Jan, Lumbago with sciatica, right side M54.41 [facility] [address] [facility] [id number] [address] [place] [address] Jan, Sore throat J02.9 [facility] [address] [facility] [id number] [address] [place] [address] Dec, [facility] [address] [address] Dec, Type 2 diabetes mellitus wit hout complication, without long-term current use of insulin E11.9 [place] [address] [address] Dec, [facility] [address] [address] Dec, [facility] [address] [address] Dec, [facility] [address] [place] [id number] [address] [place] [address] Dec, Type 2 diabetes mellitus wit hout [...] and GERD without esophagitis K21.9 [facility] [address] [place] [id number] [address] [place] [address] Dec, [facility] [address] [facility] [id number] [address] [place] [address] Nov, [facility] [address] [facility] [id number] [address] [place] [address] Nov, [facility] [address] [facility] [id number] [address] [place] [address] Nov, [facility] [address] [facility] [id number] [address] [place] [address] Nov, [facility] [address] [facility] [id number] [address] [place] [address] Oct, [facility] [address] [facility] [id number] [address] [place] [address] Oct, [facility] [address] [facility] [id number] [address] [place] [address] Oct, [facility] [address] [facility] [id number] [address] [place] [address] Oct, Well woman exam with routine gynecological exam Z01.419 ; Screen for STD (sexually transmitted disease) Z11.3 ; Screening breast examination Z12.31 ; Type 2 diabetes mellitus without complication, without long-term current use of insulin E11.9 ; Other obesity due to excess calories E66.09 and Body mass index (BMI) of 32.0-32.9 in adult Z68.32 [facility] [address] [facility] [id number] [address] [place] [address] Oct, Ganglion of left wrist M67.4 32 [facility] [address] [facility] [id number] [address] [place] [address] Oct, [facility] [address] [place] [id number] [address] [place] [address] Oct, [facility] [address] [facility] [id number] [address] [place] [address] Oct, Ganglion cyst M67.40 [facility] [address] [id number] [address] [place] [address] Oct, [facility] [address] [id number] [address] [place] [address] Sep, [facility] [address] [facility] [id number] [address] [place] [address] Sep, Major depressive disorder, r ecurrent episode, moderate F33.1 [facility] [address] [id number] [address] [place] [address] Sep, [facility] [address] [id number] [address] [place] [address] 15 Sep, 2017 Right renal mass N28.89 [facility] [address] [id number] [address] [place] [address] Sep, [facility] [address] [facility] [id number] [address] [place] [address] Sep, [facility] [address] [id number] [address] [place] [address] Sep, Right renal mass N28.89 [facility] [address] [facility] [id number] [address] [place] [address] Sep, [facility] [address] [facility] [id number] [address] [place] [address] Sep, [facility] [address] [id number] [address] [place] [address] 05 Sep, 2017 [facility] [address] [facility] [id number] [address] [place] [address] 05 Sep, 2017 [facility] [address] [facility] [id number] [address] [place] [address] Sep, [facility] [address] [facility] [id number] [address] [place] [address] 04 Sep, 2017 [facility] [address] [facility] [id number] [address] [place] [address] Sep, Pulmonary nodule R91.1 [facility] [address] [facility] [id number] [address] [place] [address] Aug, [facility] [address] [place] [id number] [address] [place] [address] Aug, Right renal mass N28.89 and Pulmonary nodule R91.1 [place] [address] [address] [place] [id number] [address] [place] [address] Aug, Essential hypertension I10 ; Right renal mass N28.89 ; Chronic gastric ulcer, unspecified whether gastric ulcer hemorrhage or perforation present K25.7 ; Spondylosis of cervical region without myelopathy or radiculopathy M47.812 ; Retrolisthesis of vertebrae M43.10 and Hospital discharge follow-up Z09 [place] [address] [place] [id number] [address] [place] [address] 14 Aug, 2017 [place] [address] [place] [id number] [address] [place] [address] Aug, [place] [address] [place] [id number] [address] [place] [address] Aug, [place] [address] [place] [id number] [address] [place] [address] Aug, Pain syndrome, chronic G89.4 ; Lumbago with sciatica, right side M54.41 ; Lumbago with sciatica, left side M54.42 ; Other chronic pain G89.29 ; Cervicalgia M54.2 ; Controlled substance agreement signed Z79.899 and Essential hypertension I10 [place] [address] [place] [id number] [address] [place] [address] Aug, [place] [address] [place] [id number] [address] [place] [address] Jul, Encounter to establish care Z76.89 ; [...] tablet 24h Dec, February, 30 day(s) Active RESULTS No Results PROCEDURES No Known [...] polp removal/colonoscopy Hospitalization History heart attack x3 7450-6844 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
--- OUTSIDE RECORDS SUMMARY | 2020-01-21 19:10 | XMS REPORT ---
Author Author Amy BLANCAS Organization [facility] Address [address] [place] [address] Care Team Providers Care Universal [employer]er Name Role Phone BLANCASNADER YeeELE Unavailable PROBLEMS Type Condition ICD9-CM Code QVS40-GJ Code Onset Dates Condition S tatus SNOMED Code Problem Seasonal allergic rhinitis due to pollen J30.1 Active 47895928 Problem 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 3 Active 629239606 Problem GERD without esophagitis K21.9 Activ e 315091133 Problem Other spondylosis with myelopathy, cervical region M47.12 Active 24189036 Problem Lumbago with sciatica, right side M54.41 Active [id number] Problem Other spondylosis with radiculopathy, cervical region M47.22 Active 633504321 Problem Lumbago with sciatica, left side M54.42 Active 680451020 Problem Left kidney mass N28.89 Active 309 379416 Problem Renal cell carcinoma of left kidney C64.2 Active 569711763 Problem Metabolic disorder, unspecified E88.9 Active 254373721 Problem Type 2 diabetes mellitus with other specified complication E11.69 Active 73640712892428 Problem Hyperlipidemia, unspecified E78.5 Ac tive 22647131 Problem Pain syndrome, chronic G89.4 Active 446180978 Problem Right renal mass N28.89 Active 309 138403 Problem Type 2 diabetes mellitus wit hout complication, without long-term current use of insulin E11.9 Active 613864700 Problem Essential hypertension I10 Active 44753421 Problem Pulmonary nodule R91.1 Active 427 417612 Problem Body mass index (BMI) of 32.0-32.9 in adult Z68.32 Active 199213333 Problem Retrolisthesis of vertebrae M43.10 Ac tive 445494023 Problem Other obesity due to excess calories E66.09 Active 661156397 Problem Chronic esophagogastric ulcer K25.7 Active 52990134 Problem Spondylosis of cervical region without myelopath y or radiculopathy M47.812 Active 646185178 Problem Major depressive disorder, recurrent episode, moderate F33.1 Active 435889626 ALLERGIES No Information ENCOUNTERS Encounter Location Date Diagnosis [facility] [address] [facility] [id number] [address] [place] [phone] May, [facility] [address] [place] [id number] [address] [place] [phone] Apr, Other spondylosis with radic ulopathy, cervical region M47.22 ; Other spondylosis with myelopathy, cervical region M47.12 and Renal cell carcinoma of left kidney C64.2 [place] [address] [place] [id number] [address] [place] [phone] Apr, [facility] [address] [place] [id number] [address] [place] [phone] Apr, [facility] [address] [address] Mar, Type 2 diabetes mellitus wit hout [...] specified complication E11.69 and Hyperlipidemia, unspecified E78.5 [facility] WALK IN [facility] [address] [facility] [id number] [address] [place] [phone] Mar, Acute suppurative otitis med ia of both ears without spontaneous rupture of tympanic membranes, recurrence not specified H66.003 [facility] [address] [place] [id number] [address] [place] [phone] Mar, [facility] [address] [address] Mar, Retrolisthesis of vertebrae M43.10 [facility] WALK IN [place] [address] [address] Mar, Low back pain, unspecified b ack pain laterality, unspecified chronicity, with sciatica presence unspecified M54.5 and Type 2 diabetes mellitus without complication, without long-term current use of insulin E11.9 [place] [address] [address] February, [address] [address] February, Retrolisthesis of vertebrae M43.10 [facility] WALK IN [place] [address] [address] February, Strain of neck muscle, initi al encounter S16.1XXA [address] [address] February, Type 2 diabetes mellitus wit hout [...] Seasonal allergic rhinitis due to pollen J30.[address] [address] February, Essential hypertension I10 ; Retrolisthesis of vertebrae M43.10 ; Body mass index (BMI) of 32.0-32.9 in adult Z68.32 and Type 2 diabetes mellitus without complication, without long-term current use of insulin E11.9 [place] [address] [place] [address] February, Type 2 diabetes mellitus wit hout complication, without long-term current use of insulin E11.9 [facility] [address] [place] [id number] [address] [place] [phone] Jan, Lumbago with sciatica, right side M54.41 [facility] WALK IN [facility] [address] [facility] [id number] [address] [place] [phone] Jan, Sore throat J02.9 [facility] [address] [facility] [id number] [address] [place] [phone] Dec, [facility] [address] [address] Dec, Type 2 diabetes mellitus wit hout complication, without long-term current use of insulin E11.9 [place] [address] [address] Dec, [facility] [address] [address] Dec, [facility] [address] [address] Dec, [facility] [address] [place] [id number] [address] [place] [phone] Dec, Type 2 diabetes mellitus wit hout [...] pollen J30.1 and GERD without esophagitis K21.9 [facility] [address] [place] [id number] [address] [place] [phone] Dec, [facility] [address] [facility] [id number] [address] [place] [phone] Nov, [facility] [address] [facility] [id number] [address] [place] [phone] Nov, [facility] [address] [facility] [id number] [address] [place] [phone] Nov, [facility] [address] [facility] [id number] [address] [place] [phone] Nov, [facility] [address] [facility] [id number] [address] [place] [id number] Oct, [facility] [address] [facility] [id number] [address] [place] [phone] Oct, [facility] [address] [facility] [id number] [address] [place] [phone] Oct, [facility] [address] [facility] [id number] [address] [place] [phone] Oct, Well woman exam with routine gynecological exam Z01.419 ; Screen for STD (sexually transmitted disease) Z11.3 ; Screening breast examination Z12.31 ; Type 2 diabetes mellitus without complication, without long-term current use of insulin E11.9 ; Other obesity due to excess calories E66.09 and Body mass index (BMI) of 32.0-32.9 in adult Z68.32 [facility] [address] [facility] [id number] [address] [place] [phone] Oct, Ganglion of left wrist M67.4 32 [facility] [address] [facility] [id number] [address] [place] [phone] Oct, [facility] [address] [place] [id number] [address] [place] [phone] Oct, [facility] [address] [facility] [id number] [address] [place] [phone] Oct, Ganglion cyst M67.40 [facility] [address] [id number] [address] [place] [id number] Oct, [facility] [address] [id number] [address] [place] [phone] Sep, [facility] [address] [facility] [id number] [address] [place] [phone] Sep, Major depressive disorder, r ecurrent episode, moderate F33.1 [facility] [address] [id number] [address] [place] [id number] Sep, [facility] [address] [id number] [address] [place] [phone] 15 Sep, 2017 Right renal mass N28.89 [facility] [address] [id number] [address] [place] [phone] Sep, [facility] [address] [facility] [id number] [address] [place] [phone] Sep, [facility] [address] [id number] [address] [place] [phone] Sep, Right renal mass N28.89 [facility] [address] [facility] [id number] [address] [place] [phone] Sep, [facility] [address] [facility] [id number] [address] [place] [phone] Sep, [facility] [address] [id number] [address] [place] [phone] 05 Sep, 2017 [facility] [address] [facility] [id number] [address] [place] [phone] 05 Sep, 2017 [facility] [address] [facility] [id number] [address] [place] [phone] Sep, [facility] [address] [facility] [id number] [address] [place] [phone] 04 Sep, 2017 [facility] [address] [facility] [id number] [address] [place] [phone] Sep, Pulmonary nodule R91.1 [facility] [address] [facility] [id number] [address] [place] [phone] Aug, [facility] [address] [place] [id number] [address] [place] [phone] Aug, Right renal mass N28.89 and Pulmonary nodule R91.1 [place] [address] [place] [id number] [address] [place] [phone] Aug, Essential hypertension I10 ; Right renal mass N28.89 ; Chronic gastric ulcer, unspecified whether gastric ulcer hemorrhage or perforation present K25.7 ; Spondylosis of cervical region without myelopathy or radiculopathy M47.812 ; Retrolisthesis of vertebrae M43.10 and Hospital discharge follow-up Z09 [place] [address] [place] [id number] [address] [place] [phone] 14 Aug, 2017 [place] [address] [place] [id number] [address] [place] [phone] Aug, [place] [address] [place] [id number] [address] [place] [phone] Aug, [place] [address] [place] [id number] [address] [place] [phone] Aug, Pain syndrome, chronic G89.4 ; Lumbago with sciatica, right side M54.41 ; Lumbago with sciatica, left side M54.42 ; Other chronic pain G89.29 ; Cervicalgia M54.2 ; Controlled substance agreement signed Z79.899 and Essential hypertension I10 [place] [address] [place] [id number] [address] [place] [phone] Aug, [place] [address] [place] [id number] [address] [place] [phone] Jul, Encounter to establish care Z76.89 ; [...] polp removal/colonoscopy Hospitalization History heart attack x3 [phone] 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
--- OUTSIDE RECORDS SUMMARY | 2020-01-21 19:10 | XMS REPORT ---
Author Author Amy BLANCAS Organization [facility] [place] Address [address] [place] [address] Care Team Providers Care Bobtailer Name Role Phone BLANCASNADER YeeELE Unavailable PROBLEMS Type Condition ICD9-CM Code PAP93-EB Code Onset Dates Condition S tatus SNOMED Code Problem Seasonal allergic rhinitis due to pollen J30.1 Active 28662030 Problem 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 3 Active 134172442 Problem GERD without esophagitis K21.9 Activ e 241895515 Problem Other spondylosis with myelopathy, cervical region M47.12 Active 83931670 Problem Lumbago with sciatica, right side M54.41 Active [id number] Problem Other spondylosis with radiculopathy, cervical region M47.22 Active 361294182 Problem Lumbago with sciatica, left side M54.42 Active 339386367 Problem Left kidney mass N28.89 Active 309 158686 Problem Renal cell carcinoma of left kidney C64.2 Active 995879621 Problem Metabolic disorder, unspecified E88.9 Active 609798287 Problem Type 2 diabetes mellitus with other specified complication E11.69 Active 53744372199104 Problem Hyperlipidemia, unspecified E78.5 Ac tive 97327833 Problem Pain syndrome, chronic G89.4 Active 309928354 Problem Right renal mass N28.89 Active 309 414254 Problem Type 2 diabetes mellitus wit hout complication, without long-term current use of insulin E11.9 Active 287050803 Problem Essential hypertension I10 Active 20108552 Problem Pulmonary nodule R91.1 Active 427 400286 Problem Body mass index (BMI) of 32.0-32.9 in adult Z68.32 Active 367832379 Problem Retrolisthesis of vertebrae M43.10 Ac tive 712945834 Problem Other obesity due to excess calories E66.09 Active 647322657 Problem Chronic esophagogastric ulcer K25.7 Active 07996922 Problem Spondylosis of cervical region without myelopath y or radiculopathy M47.812 Active 831922935 Problem Major depressive disorder, recurrent episode, moderate F33.1 Active 810532161 ALLERGIES Substance Reaction Event Type Date Status Hydrocodone-Acetaminophen anaphylaxis Drug Allergy Dec, Ac champ Nation cintron's palsy Drug Allergy Dec, Active Doxycycline Monohydrate anaphylaxis Drug Allergy Dec, Acti ve ENCOUNTERS Encounter Location Date Diagnosis [facility] [place] [address] [address] May, [place] [address] [address] 17 Apr, 2018 Other spondylosis with radic ulopathy, cervical region M47.22 ; Other spondylosis with myelopathy, cervical region M47.12 and Renal cell carcinoma of left kidney C64.2 [facility] [place] [address] [address] 16 Apr, 2018 [facility] [place] [address] [address] Apr, [facility] [place] [address] [address] Mar, Type 2 diabetes mellitus wit hout [...] specified complication E11.69 and Hyperlipidemia, unspecified E78.5 [facility] [address] [place] [id number] [place] [address] Mar, Acute suppurative otitis med ia of both ears without spontaneous rupture of tympanic membranes, recurrence not specified H66.003 [place] [address] [address] Mar, [place] [address] [address] Mar, Retrolisthesis of vertebrae M43.10 [facility] [place] [address] [address] Mar, Low back pain, unspecified b ack pain laterality, unspecified chronicity, with sciatica presence unspecified M54.5 and Type 2 diabetes mellitus without complication, without long-term current use of insulin E11.9 [place] [address] [address] February, [place] [address] [address] February, Retrolisthesis of vertebrae M43.10 [facility] IN [place] [address] [address] February, Strain of neck muscle, initi al encounter S16.1XXA [place] [address] [address] February, Type 2 diabetes mellitus wit hout [...] Seasonal allergic rhinitis due to pollen J30.1 [place] [address] [address] [place] [id number] [address] [place] [address] February, Essential hypertension I10 ; Retrolisthesis of vertebrae M43.10 ; Body mass index (BMI) of 32.0-32.9 in adult Z68.32 and Type 2 diabetes mellitus without complication, without long-term current use of insulin E11.9 [facility] [place] [address] [facility] [id number] [address] [place] [phone] February, Type 2 diabetes mellitus wit hout complication, without long-term current use of insulin E11.9 [facility] [place] [address] [facility] [id number] [address] [place] [phone] Jan, Lumbago with sciatica, right side M54.41 [facility] [address] [id number] [address] [place] [phone] Jan, Sore throat J02.9 [facility] [place] [address] [id number] [address] [place] [id number] Dec, [facility] [place] [address] [id number] [address] [place] [id number] Dec, Type 2 diabetes mellitus wit hout complication, without long-term current use of insulin E11.9 [facility] [place] [address] [id number] [address] [place] [phone] Dec, [facility] [place] [address] [id number] [address] [place] [phone] Dec, [facility] [place] [address] [facility] [id number] [address] [place] [phone] Dec, [facility] [place] [address] [id number] [address] [place] [phone] Dec, Type 2 diabetes mellitus wit hout [...] pollen J30.1 and GERD without esophagitis K21.9 [facility] [place] [address] [address] Dec, [facility] [place] [address] [facility] [id number] [address] [place] [phone] Nov, [facility] [place] [address] [place] [id number] [place] [address] Nov, [facility] [place] [address] [place] [id number] [place] [address] Nov, [facility] [place] [address] [place] [id number] [place] [address] Nov, [facility] [place] [address] [place] [id number] [place] [id number] Oct, [facility] [place] [address] [address] Oct, [facility] [place] [address] [place] [id number] [place] [id number] Oct, [facility] [place] [address] [address] Oct, Well woman exam with routine gynecological exam Z01.419 ; Screen for STD (sexually transmitted disease) Z11.3 ; Screening breast examination Z12.31 ; Type 2 diabetes mellitus without complication, without long-term current use of insulin E11.9 ; Other obesity due to excess calories E66.09 and Body mass index (BMI) of 32.0-32.9 in adult Z68.32 [facility] [place] [address] [address] Oct, Ganglion of left wrist M67.4 32 [facility] [place] [address] [place] [id number] [place] [phone] Oct, [facility] [place] [address] [address] Oct, [facility] [address] [facility] [id number] [address] [place] [id number] Oct, Ganglion cyst M67.40 [facility] [place] [address] [facility] [id number] [address] [place] [id number] Oct, [facility] [place] [address] [facility] [id number] [address] [place] [phone] Sep, [facility] [place] [address] [facility] [id number] [address] [place] [phone] Sep, Major depressive disorder, r ecurrent episode, moderate F33.1 [facility] [place] [address] [facility] [id number] [address] [place] [phone] Sep, [facility] [place] [address] [facility] [id number] [address] [place] [phone] Sep, Right renal mass N28.89 [facility] [place] [address] [facility] [id number] [address] [place] [phone] Sep, [facility] [place] [address] [facility] [id number] [address] [place] [phone] Sep, [facility] [place] [address] [facility] [id number] [address] [place] [phone] Sep, Right renal mass N28.89 [facility] [place] [address] [facility] [id number] [address] [place] [phone] Sep, [facility] [place] [address] [facility] [id number] [address] [place] [phone] Sep, [facility] [place] [address] [facility] [id number] [address] [place] [phone] Sep, [facility] [place] [address] [facility] [id number] [address] [place] [phone] Sep, [facility] [place] [address] [facility] [id number] [address] [place] [phone] Sep, [facility] [place] [address] [place] [id number] [address] [place] [id number] Sep, [facility] [place] [address] [place] [id number] [address] [place] [id number] Sep, Pulmonary nodule R91.1 [facility] [place] [address] [place] [id number] [place] [phone] Aug, [place] [address] [address] [place] [id number] [place] [address] Aug, Right renal mass N28.89 and Pulmonary nodule R91.1 [place] [address] [address] [place] [id number] [place] [phone] Aug, Essential hypertension I10 ; Right renal mass N28.89 ; Chronic gastric ulcer, unspecified whether gastric ulcer hemorrhage or perforation present K25.7 ; Spondylosis of cervical region without myelopathy or radiculopathy M47.812 ; Retrolisthesis of vertebrae M43.10 and Hospital discharge follow-up Z09 [place] [address] [address] 14 Aug, 2017 [place] [address] [address] Aug, [place] [address] [address] [place] [id number] [place] [phone] Aug, [place] [address] [address] Aug, Pain syndrome, chronic G89.4 ; Lumbago with sciatica, right side M54.41 ; Lumbago with sciatica, left side M54.42 ; Other chronic pain G89.29 ; Cervicalgia M54.2 ; Controlled substance agreement signed Z79.899 and Essential hypertension I10 [facility] [place] [address] [place] [id number] [place] [phone] Aug, [place] [address] [place] [id number] [place] [phone] 26 Oct, 2017 Encounter to establish care Z76.89 ; [...] SOCIAL HISTORY Never Assessed REASON FOR VISIT discuss referal--tjanssenMA, --fell 2 weeks ago hit left knee and was on crutche s, both legs wrapped up today. , --pt has not been to physical therapy as she co [employer]. , --refill on flonase for allergies and discuss the possibility of getting something for nerve pain. PLAN OF CARE Activity Details Follow Up 3 Months, prn Reason:CHM VITAL SIGNS Height 68 in 2017-12-28 Weight 213.7 lbs 2017-12-28 Temperature 97.7 degrees Fahrenheit 2017-12-28 Heart Rate 68 bpm 2017-12-28 Respiratory Rate 20 2017-12-28 BMI 32.49 kg/m2 2017-12-28 Blood pressure systolic 168 mmHg 2017-12-28 Blood pressure diastolic 96 mmHg 2017-12-28 MEDICATIONS Medication Instructions Dosage Frequency Start Date End Date Duration S leti Lisinopril 20 mg Orally twice a day 1 tablet 12h 30 Active Oxycodone-Acetaminophen 7.5-325 MG Orally every 6 hrs 1 tablet as n eeded 6h Dec, 28 days Active Pioglitazone HCl-Metformin HCl 15-500 MG Orally Once a day TAKE ONE TABLET BY MOUTH ONCE DAILY WITH A MEAL 24h 90 days Active Pioglitazone HCl-Metformin HCl 15-500 MG TAKE ONE TABLET BY MOUTH ONCE DAILY WITH A MEAL 30 Active Fluticasone Propionate 50 MCG/ACT Nasally Once a day 1 spray in each nostril 24h Dec, 30 day(s) Active Sertraline HCl 25 MG Orally Once a day TAKE ONE TABLET BY MOUTH ONC E DAILY 24h 90 days Active Sertraline HCl 25 MG TAKE ONE TABLET BY MOUTH ONCE DAILY 30 Active Fish Oil 1000 MG Orally twice a day 1 capsule 12h Active Aspirin 81 MG Orally Once a day 1 tablet 24h 90 days Active Metoprolol Tartrate 100 mg Orally Twice a day TAKE ONE TABL ET BY MOUTH TWICE DAILY WITH FOOD 12h 90 days Active Metoprolol Tartrate 100 MG TAKE ONE TABLET BY MOUTH TWICE DAILY WITH FOOD 30 Active Valium 5 mg Orally once 30 minutes prior to scan- february repeat x 1 5mg tablet if needed Aug, 1 days Not-Taking Jardiance 10 mg Orally Once a day 1 tablet 24h Dec, Jan, 30 day(s) Active Dexilant 60 mg Orally Once a day 1 capsule 24h Aug, 90 days Active Atorvastatin Calcium 20 mg Orally Once a day 1 tablet 24h 2017 90 days Active Tizanidine HCl 4 MG TAKE ONE TABLET BY MOUTH THREE TIMES D AILY NEEDED 30 Not-Taking Sucralfate 1 GM Orally 4 times a day 1 tablet 6h Active Clopidogrel Bisulfate 75 MG Orally Once a day 1 tablet 24h Not-Taking Tizanidine HCl 4 MG Orally Three times a day 1 capsule as needed 8h 30 days Active Gabapentin 300 MG Orally Once a day 1 capsule before bedtime 24h Dec, 30 day(s) Active Lisinopril 20 mg Orally Once a day TAKE ONE TABLET BY MOUTH TWICE SYLVIA Y 24h 90 days Active RESULTS No Results PROCEDURES Procedure Date Ordered Result Body Site GLYCATED HEMOGLOBIN TEST December 28, 2017 MICROALBUMIN, SEMIQUANT December 28, 2017 LAB [facility] December 28, 2017 INSTRUCTIONS MEDICATIONS ADMINISTERED No Known [...] polp removal/colonoscopy Hospitalization History heart attack x3 [id number] 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
--- OUTSIDE RECORDS SUMMARY | 2020-01-21 19:10 | XMS REPORT ---
Author Author Amy BLANCAS Organization [facility] Address [address] [place] [address] Care Team Providers Care Clay Preparation Supervisor Name Role Phone BLANCASNADER YeeELE Unavailable PROBLEMS Type Condition ICD9-CM Code NCV77-IE Code Onset Dates Condition S tatus SNOMED Code Problem Seasonal allergic rhinitis due to pollen J30.1 Active 73184938 Problem 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 3 Active 611460742 Problem GERD without esophagitis K21.9 Activ e 434931341 Problem Other spondylosis with myelopathy, cervical region M47.12 Active 03222647 Problem Lumbago with sciatica, right side M54.41 Active [id number] Problem Other spondylosis with radiculopathy, cervical region M47.22 Active 704768606 Problem Lumbago with sciatica, left side M54.42 Active 664683557 Problem Left kidney mass N28.89 Active 309 928727 Problem Renal cell carcinoma of left kidney C64.2 Active 808634748 Problem Metabolic disorder, unspecified E88.9 Active 494630215 Problem Type 2 diabetes mellitus with other specified complication E11.69 Active 52367826197423 Problem Hyperlipidemia, unspecified E78.5 Ac tive 32863933 Problem Pain syndrome, chronic G89.4 Active 710031161 Problem Right renal mass N28.89 Active 309 733219 Problem Type 2 diabetes mellitus wit hout complication, without long-term current use of insulin E11.9 Active 058457065 Problem Essential hypertension I10 Active 64051113 Problem Pulmonary nodule R91.1 Active 427 705010 Problem Body mass index (BMI) of 32.0-32.9 in adult Z68.32 Active 817809756 Problem Retrolisthesis of vertebrae M43.10 Ac tive 570462996 Problem Other obesity due to excess calories E66.09 Active 721195633 Problem Chronic esophagogastric ulcer K25.7 Active 98310305 Problem Spondylosis of cervical region without myelopath y or radiculopathy M47.812 Active 886118163 Problem Major depressive disorder, recurrent episode, moderate F33.1 Active [id number] ALLERGIES No Information ENCOUNTERS Encounter Location Date Diagnosis [facility] [address] [id number] [address] [place] [address] May, [facility] [address] [id number] [address] [place] [address] Apr, [facility] [address] [id number] [address] [place] [address] Apr, Other spondylosis with radic ulopathy, cervical region M47.22 [facility] [address] [id number] [address] [place] [address] Apr, [facility] [address] [facility] [id number] [address] [place] [address] Apr, Other spondylosis with radic ulopathy, cervical region M47.22 ; Other spondylosis with myelopathy, cervical region M47.12 and Renal cell carcinoma of left kidney C64.2 [facility] [address] [id number] [address] [place] [address] 16 Apr, [address] [facility] [address] [facility] [id number] [address] [place] [address] Apr, [facility] [address] [facility] [id number] [address] [place] [address] Mar, Type 2 diabetes mellitus wit hout [...] specified complication E11.69 and Hyperlipidemia, unspecified E78.5 [facility] [place] [address] [address] Mar, Acute suppurative otitis med ia of both ears without spontaneous rupture of tympanic membranes, recurrence not specified H66.003 [place] [address] [address] Mar, [place] [address] [address] Mar, Retrolisthesis of vertebrae M43.10 [facility] [place] [address] [address] Mar, Low back pain, unspecified b ack pain laterality, unspecified chronicity, with sciatica presence unspecified M54.5 and Type 2 diabetes mellitus without complication, without long-term current use of insulin E11.9 [place] [address] [address] February, [place] [address] [address] February, Retrolisthesis of vertebrae M43.10 [facility] [place] [address] [address] February, Strain of neck muscle, initi al encounter S16.1XXA [address] [address] February, Type 2 diabetes mellitus wit hout [...] allergic rhinitis due to pollen J30.1 [facility] [address] [facility] [id number] [address] [place] [address] February, Essential hypertension I10 ; Retrolisthesis of vertebrae M43.10 ; Body mass index (BMI) of 32.0-32.9 in adult Z68.32 and Type 2 diabetes mellitus without complication, without long-term current use of insulin E11.9 [place] [address] [address] [facility] [id number] [address] [place] [address] February, Type 2 diabetes mellitus wit hout complication, without long-term current use of insulin E11.9 [place] [address] [address] [facility] [id number] [address] [place] [address] Jan, Lumbago with sciatica, right side M54.41 [facility] [address] [facility] [id number] [address] [place] [address] Jan, Sore throat J02.9 [facility] [address] [id number] [address] [place] [address] Dec, [facility] [address] [id number] [address] [place] [address] Dec, Type 2 diabetes mellitus wit hout complication, without long-term current use of insulin E11.9 [place] [address] [address] [facility] [id number] [address] [place] [address] Dec, [facility] [address] [id number] [address] [place] [address] Dec, [place] [address] [address] [facility] [id number] [address] [place] [address] Dec, [place] [address] [address] [facility] [id number] [address] [place] [address] Dec, Type 2 diabetes mellitus wit hout [...] pollen J30.1 and GERD without esophagitis K21.9 [place] [address] [id number] [address] [place] [address] Dec, [facility] [address] [id number] [address] [place] [address] Nov, [facility] [address] [id number] [address] [place] [address] Nov, [place] [address] [id number] [address] [place] [address] Nov, [facility] [address] [id number] [address] [place] [address] Nov, [facility] [address] [id number] [address] [place] [address] Oct, [place] [address] [id number] [address] [place] [address] Oct, [place] [address] [id number] [address] [place] [address] Oct, [place] [address] [id number] [address] [place] [address] Oct, Well woman exam with routine gynecological exam Z01.419 ; Screen for STD (sexually transmitted disease) Z11.3 ; Screening breast examination Z12.31 ; Type 2 diabetes mellitus without complication, without long-term current use of insulin E11.9 ; Other obesity due to excess calories E66.09 and Body mass index (BMI) of 32.0-32.9 in adult Z68.32 [place] [address] [id number] [address] [place] [address] Oct, Ganglion of left wrist M67.[address] [facility] [address] [id number] [address] [place] [address] Oct, [facility] [address] [facility] [id number] [address] [place] [address] Oct, [facility] [address] [facility] [id number] [address] [place] [address] Oct, Ganglion cyst M67.40 [facility] [address] [id number] [address] [place] [address] Oct, [facility] [address] [id number] [address] [place] [address] Sep, [facility] [address] [facility] [id number] [address] [place] [address] Sep, Major depressive disorder, r ecurrent episode, moderate F33.1 [facility] [address] [facility] [id number] [address] [place] [address] Sep, [facility] [address] [facility] [id number] [address] [place] [address] Sep, Right renal mass N28.89 [facility] [address] [facility] [id number] [address] [place] [address] Sep, [facility] [address] [facility] [id number] [address] [place] [address] Sep, [facility] [address] [facility] [id number] [address] [place] [address] Sep, Right renal mass N28.89 [facility] [address] [facility] [id number] [address] [place] [address] Sep, [facility] [address] [facility] [id number] [address] [place] [address] Sep, [facility] [address] [facility] [id number] [address] [place] [address] Sep, [facility] [address] [address] Sep, [facility] [address] [address] Sep, [facility] [address] [place] [id number] [place] [address] Sep, [place] [address] [address] Sep, Pulmonary nodule R91.1 [place] [address] [address] Aug, [place] [address] [address] Aug, Right renal mass N28.89 and Pulmonary nodule R91.1 [place] [address] [address] Aug, Essential hypertension I10 ; Right renal mass N28.89 ; Chronic gastric ulcer, unspecified whether gastric ulcer hemorrhage or perforation present K25.7 ; Spondylosis of cervical region without myelopathy or radiculopathy M47.812 ; Retrolisthesis of vertebrae M43.10 and Hospital discharge follow-up Z09 [place] [address] [address] 14 Aug, 2017 [place] [address] [address] Aug, [place] [address] [address] Aug, [place] [address] [address] Aug, Pain syndrome, chronic G89.4 ; Lumbago with sciatica, right side M54.41 ; Lumbago with sciatica, left side M54.42 ; Other chronic pain G89.29 ; Cervicalgia M54.2 ; Controlled substance agreement signed Z79.899 and Essential hypertension I10 [facility] [address] [facility] [id number] [address] [place] [address] Aug, 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
--- OUTSIDE RECORDS SUMMARY | 2020-01-21 19:12 | XMS REPORT | Continuity of Care Document ---
Demographics x Preferred Language Unknown Marital Status Unknown Advent Affiliation Unknown Race Unknown Ethnic Group Unknown Author Organization Unknown Address Unknown Phone Unavailable Allergies Active Description Code Type Severity Reaction Onset Reported/Identified Relationship to Patient Clinical Status Yes doxycycline 2748 Drug Allergy N/A N/A Yes Feldene 23061 Drug Allergy N/A N/A Yes hydrocodone 1554 Drug Allergy N/A N/A Yes doxycycline [id number] Drug Aller gy Unknown N/A 08/16/2017 Yes hydrocodone [id number] Drug Aller gy Unknown N/A 08/16/2017 Yes piroxicam [id number] Drug Allergy Unknown N/A 08/16/2017 Yes ketorolac [id number] Drug Allergy Moderate N/A 08/27/2017 Medications There is no data. Problems Date Dx Coded Attending Type Code Diagnosis Diagnosed By 09/16/1426 ROSA SNELL SCRAP DEALER Ot M48.02 SPINAL STENOSIS, CERVICAL REGION 09/16/1426 ROSA SNELL SCRAP DEALER Ot M54.41 LUMBAGO WITH SCIATICA, RIGHT SIDE 09/16/1426 ROSA SNELL APRN Ot M54.42 LUMBAGO WITH SCIATICA, LEFT SIDE 09/16/1438 SARTHAK COELLO MD Ot M54.16 RADICULOPATHY, LUMBAR REGION 06/17/2010 Ot 250.00 06/17/2010 Ot 278.00 06/17/2010 [...] 272.4 05/27/2015 Ot V58.69 05/27/2015 LINDEN MOISE FACC, DASIA CHACON CCDS Ot 272.4 05/27/2015 WESTON ALCANTAR MD Ot 789.00 05/27/2015 WESTON ALCANTAR MD Ot 793.11 05/28/2015 WESTON ALCANTAR MD Ot 593 .9 06/05/2015 WESTON ALCANTAR MD Ot 789.00 06/05/2015 WESTON ALCANTAR MD Ot 793.11 06/13/2015 WESTON ALCANTAR MD Ot 593 .9 04/27/2017 Ot 250.00 ELSY B LUCIA WO COMPL, TYPE II OR UNSPEC TY 04/27/2017 Ot 272.4 HYPE RLIPIDEMIA NEC/NOS 04/27/2017 Ot V58.69 OTH MED,LT,CURRENT USE 04/27/2017 LINDEN MOISE FACC, DASIA FACP CCDS Ot 272.4 HYPERLIPIDEMIA NEC/NOS 04/27/2017 WESTON ALCANTAR MD Ot 789.00 ABDOMINAL PAIN, UNSPECIFIED SITE 04/27/2017 WESTON ALCANTAR MD Ot 793.11 SOLITARY PULMONARY NODULE 04/27/2017 WESTON ALCANTAR MD Ot 593 .9 RENAL URETERAL DIS NOS 04/29/2017 Ot 250.00 ELSY B LUCIA WO COMPL, TYPE II OR UNSPEC TY 04/29/2017 Ot 272.4 HYPE RLIPIDEMIA NEC/NOS 04/29/2017 Ot V58.69 OTH MED,LT,CURRENT USE 04/29/2017 LINDEN MOISE FACC, ALI FACP CCDS Ot 272.4 HYPERLIPIDEMIA NEC/NOS 04/29/2017 WESTON ALCANTAR MD Ot 789.00 ABDOMINAL PAIN, UNSPECIFIED SITE 04/29/2017 WESTON ALCANTAR MD Ot 793.11 SOLITARY PULMONARY NODULE 04/29/2017 WESTON ALCANTAR MD Ot 593 .9 RENAL URETERAL DIS NOS 05/03/2017 Ot 250.00 ELSY B LUCIA WO COMPL, TYPE II OR UNSPEC TY 05/03/2017 Ot 272.4 HYPE RLIPIDEMIA NEC/NOS 05/03/2017 Ot V58.69 OTH MED,LT,CURRENT USE 05/03/2017 LINDEN MOISE FACC, ALI FACP CCDS Ot 272.4 HYPERLIPIDEMIA NEC/NOS 05/03/2017 WESTON ALCANTAR MD Ot 789.00 ABDOMINAL PAIN, UNSPECIFIED SITE 05/03/2017 WESTON ALCANTAR MD Ot 793.11 SOLITARY PULMONARY NODULE 05/03/2017 WESTON ALCANTAR MD Ot 593 .9 RENAL URETERAL DIS NOS 05/03/2017 FOREIGN HORAN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 Ot E11.9 TYPE 2 DIABETES MELLITUS WITHOUT COMPLIC 05/03/2017 FOREIGN HORAN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 Ot E78.4 OTHER HYPERLIPIDEMIA 05/03/2017 FOREIGN HORAN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 Ot I 10 ESSENTIAL (PRIMARY) HYPERTENSION 05/03/2017 FOREIGN HORAN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 Ot I25.10 ATHSCL HEART DISEASE OF [place] CORONARY 05/03/2017 FOREIGN HORAN L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 Ot I65.23 OCCLUSION AND STENOSIS OF [place]ILATERAL [place] 05/03/2017 FOREIGN HORAN L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 Ot R07.89 OTHER CHEST PAIN 05/13/2017 Ot 250.00 ELSY B LUCIA WO COMPL, TYPE II OR UNSPEC TY 05/13/2017 Ot 272.4 HYPE RLIPIDEMIA NEC/NOS 05/13/2017 Ot V58.69 OTH MED,LT,CURRENT USE 05/13/2017 LINDEN MOISE FACC, ALI FACP CCDS Ot 272.4 HYPERLIPIDEMIA NEC/NOS 05/13/2017 WESTON ALCANTAR MD Ot 789.00 ABDOMINAL PAIN, UNSPECIFIED SITE 05/13/2017 WESTON ALCANTAR MD Ot 793.11 SOLITARY PULMONARY NODULE 05/13/2017 WESTON ALCANTAR MD Ot 593 .9 RENAL URETERAL DIS NOS 05/13/2017 MARGUERITE WAITE MD, Ot Z01.81 8 ENCOUNTER FOR OTHER PREPROCEDURAL EXAMIN 05/13/2017 MARGUERITE WAITE MD, Ot Z12.11 ENCOUNTER FOR SCREENING FOR MALIGNANT NE 05/13/2017 MARGUERITE WAITE MD, Ot Z86.01 0 PERSONAL HISTORY OF COLONIC POLYPS 05/13/2017 MARGUERITE WAITE MD, Ot Z87.11 PERSONAL HISTORY OF PEPTIC ULCER DISEASE 05/13/2017 FOREIGN HORAN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 Ot E11.9 TYPE 2 DIABETES MELLITUS WITHOUT COMPLIC 05/13/2017 FOREIGN HORAN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 Ot E78.4 OTHER HYPERLIPIDEMIA 05/13/2017 FOREIGN HORAN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 Ot I 10 ESSENTIAL (PRIMARY) HYPERTENSION 05/13/2017 FOREIGN HORAN L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 Ot I25.10 ATHSCL HEART DISEASE OF [place] CORONARY 05/13/2017 FOREIGN HORAN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 Ot I65.23 OCCLUSION AND STENOSIS OF [place]ATERAL [place] 05/13/2017 FOREIGN HORAN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 Ot R07.89 OTHER CHEST PAIN 05/18/2017 LINDEN MOISE FACC, DASIA FACP CCDS Ot E11.9 TYPE 2 DIABETES MELLITUS WITHOUT COMPLIC 05/18/2017 LINDEN MOISE FACC, ALI FACP CCDS Ot E66.9 OBESITY, UNSPECIFIED 05/18/2017 LINDEN MOISE FACC, ALI FACP CCDS Ot I11.9 HYPERTENSIVE HEART DISEASE WITHOUT HEART 05/18/2017 LINDEN MOISE FACC ALI FACP CCDS Ot I25.10 ATHSCL HEART DISEASE OF [place] CORONARY 05/18/2017 LINDEN MOISE FACC, ALI FACP CCDS Ot K21.9 GASTRO-ESOPHAGEAL REFLUX DISEASE WITHOUT 05/18/2017 LINDEN MOISE FACC, ALI FACP CCDS Ot R00.0 TACHYCARDIA, UNSPECIFIED 05/18/2017 LINDEN MOISE FACC, ALI FACP CCDS Ot R07.89 OTHER CHEST PAIN 05/18/2017 LINDEN MOISE FACC, ALI FACP CCDS Ot R94.39 ABNORMAL RESULT OF OTHER CARDIOVASCULAR 05/18/2017 DASIA CHEATHAM MD, FACC FACP CCDS Ot Z68.33 BODY MASS INDEX (BMI) 33.0-33.9, ADULT 05/18/2017 DASIA CHEATHAM MD, FACC FACP CCDS Ot Z79.84 SNF (CURRENT) USE OF ORAL HYPOGLYC 05/18/2017 LINDEN MOISE FACC ALI FACP CCDS Ot Z79.899 OTHER SNF (CURRENT) DRUG THERAPY 05/25/2017 ESTHER HORANHER L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 Ot E11.9 TYPE 2 DIABETES MELLITUS WITHOUT COMPLIC 05/25/2017 AUNG FOREIGN L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 Ot E78.4 OTHER HYPERLIPIDEMIA 05/25/2017 AUNG FOREIGN L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 Ot I 10 ESSENTIAL (PRIMARY) HYPERTENSION 05/25/2017 AUNG FOREIGN L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 Ot I25.10 ATHSCL HEART DISEASE OF [place] CORONARY 05/25/2017 ESTHER HORANHER L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 Ot I65.23 OCCLUSION AND STENOSIS OF [place]ATERAL [place] 05/25/2017 ESTHER HORANHER L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 Ot R07.89 OTHER CHEST PAIN 05/25/2017 AUNG FOREIGN L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 Ot E11.9 TYPE 2 DIABETES MELLITUS WITHOUT COMPLIC 05/28/2017 DASIA CHEATHAM MD, FACC FACP CCDS Ot E11.9 TYPE 2 DIABETES MELLITUS WITHOUT COMPLIC 05/28/2017 LINDEN MOISE FACC, ALI FACP CCDS Ot E66.9 OBESITY, UNSPECIFIED 05/28/2017 LINDEN MOISE FACC ALI FACP CCDS Ot I11.9 HYPERTENSIVE HEART DISEASE WITHOUT HEART 05/28/2017 LINDEN MOISE FACC ALI FACP CCDS Ot I25.10 ATHSCL HEART DISEASE OF [place] CORONARY 05/28/2017 LINDEN MOISE FACC ALI FACP CCDS Ot K21.9 GASTRO-ESOPHAGEAL REFLUX DISEASE WITHOUT 05/28/2017 LINDEN MOISE FACC ALI FACP CCDS Ot R00.0 TACHYCARDIA, UNSPECIFIED 05/28/2017 LINDEN MOISE FACC ALI FACP CCDS Ot R07.89 OTHER CHEST PAIN 05/28/2017 LINDEN MOISE FACC, ALI FACP CCDS Ot R94.39 ABNORMAL RESULT OF OTHER CARDIOVASCULAR 05/28/2017 LINDEN MOISE FACC ALI FACP CCDS Ot Z68.33 BODY MASS INDEX (BMI) 33.0-33.9, ADULT 05/28/2017 LINDEN MOISE FACC, DASIA CHACON CCDS Ot Z79.84 SNF (CURRENT) USE OF ORAL HYPOGLYC 05/28/2017 LINDEN MOISE FACC, DASIA CHACON CCDS Ot Z79.899 OTHER INTEGRATED LOGISTICS PROGRAMS DIRECTOR (CURRENT) DRUG THERAPY 08/16/2017 MARGUERITE WAITE MD, Ot Z01.81 8 ENCOUNTER FOR OTHER PREPROCEDURAL EXAMIN 08/16/2017 MARGUERITE WAITE MD, Ot Z86.01 0 PERSONAL HISTORY OF COLONIC POLYPS 08/16/2017 MARGUERITE WAITE MD, Ot Z87.11 PERSONAL HISTORY OF PEPTIC ULCER DISEASE 08/18/2017 MARGUERITE WAITE MD Ot E11.9 TYPE 2 DIABETES MELLITUS WITHOUT COMPLIC 08/18/2017 MARGUERITE WAITE MD, Ot I10 ESSENTIAL (PRIMARY) HYPERTENSION 08/18/2017 MARGUERITE WAITE MD, Ot I25.2 OLD MYOCARDIAL INFARCTION 08/18/2017 MARGUERITE WAITE MD Ot K21.0 GASTRO-ESOPHAGEAL REFLUX DISEASE WITH ES 08/18/2017 MARGUERITE WAITE MD, Ot K29.70 GASTRITIS, UNSPECIFIED, WITHOUT BLEEDING 08/18/2017 MARGUERITE WAITE MD, Ot K62.1 RECTAL POLYP 08/18/2017 MARGUERITE WAITE MD, Ot K64.1 SECOND DEGREE HEMORRHOIDS 08/18/2017 MARGUERITE WAITE MD, Ot Z12.11 ENCOUNTER FOR SCREENING FOR MALIGNANT NE 08/18/2017 MARGUERITE WAITE MD, Ot Z87.44 2 PERSONAL HISTORY OF URINARY CALCULI 08/27/2017 Ot 250.00 ELSY B LUCIA WO COMPL, TYPE II OR UNSPEC TY 08/27/2017 Ot 272.4 HYPE RLIPIDEMIA NEC/NOS 08/27/2017 Ot V58.69 OTH MED,LT,CURRENT USE 08/27/2017 LINDEN MOISE FACC, DASIA CHACON CCDS Ot 272.4 HYPERLIPIDEMIA NEC/NOS 08/27/2017 WESTON ALCANTAR MD Ot 789.00 ABDOMINAL PAIN, UNSPECIFIED SITE 08/27/2017 WESTON ALCANTAR MD Ot 793.11 SOLITARY PULMONARY NODULE 08/27/2017 WESTON ALCANTAR MD Ot 593 .9 RENAL URETERAL DIS NOS 08/27/2017 MARGUERITE WAITE MD, Ot Z01.81 8 ENCOUNTER FOR OTHER PREPROCEDURAL EXAMIN 08/27/2017 MARGUERITE WAITE MD, Ot Z12.11 ENCOUNTER FOR SCREENING FOR MALIGNANT NE 08/27/2017 MARGUERITE WAITE MD, Ot Z86.01 0 PERSONAL HISTORY OF COLONIC POLYPS 08/27/2017 MARGUERITE WAITE MD, Ot Z87.11 PERSONAL HISTORY OF PEPTIC ULCER DISEASE 08/27/2017 FOREIGN HORAN L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 Ot E11.9 TYPE 2 DIABETES MELLITUS WITHOUT COMPLIC 08/27/2017 BAIBRANDI FOREIGN L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 Ot E78.4 OTHER HYPERLIPIDEMIA 08/27/2017 BAIMA FOREIGN L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 Ot I 10 ESSENTIAL (PRIMARY) HYPERTENSION 08/27/2017 AUNG FOREIGN L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 Ot I25.10 ATHSCL HEART DISEASE OF [place] CORONARY 08/27/2017 BAIBRANDI FOREIGN L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 Ot I65.23 OCCLUSION AND STENOSIS OF [place] 08/27/2017 FOREIGN HORAN L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 Ot R07.89 OTHER CHEST PAIN 08/27/2017 FOREIGN HORAN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 Ot E11.9 TYPE 2 DIABETES MELLITUS WITHOUT COMPLIC 08/27/2017 RICHIE BENTLEY MD Ot E11 .9 TYPE 2 DIABETES MELLITUS WITHOUT COMPLIC 08/27/2017 RICHIE BENTLEY MD Ot F32 .9 MAJOR DEPRESSIVE DISORDER, SINGLE EPISOD 08/27/2017 RICHIE BENTLEY MD Ot F41 .9 ANXIETY DISORDER, UNSPECIFIED 08/27/2017 RICHIE BENTLEY MD Ot I25 .2 OLD MYOCARDIAL INFARCTION 08/27/2017 RICHIE BENTLEY MD Ot K21 .9 GASTRO-ESOPHAGEAL REFLUX DISEASE WITHOUT 08/27/2017 RICHIE BENTLEY MD Ot M19.90 UNSPECIFIED OSTEOARTHRITIS, UNSPECIFIED 08/27/2017 RICHIE BENTLEY MD Ot R10.13 EPIGASTRIC PAIN 08/27/2017 RICHIE BENTLEY MD Ot R10 .9 UNSPECIFIED ABDOMINAL PAIN 08/27/2017 RICHIE BENTLEY MD Ot Z79.82 SNF (CURRENT) USE OF ASPIRIN 08/27/2017 RICHIE BENTLEY MD Ot Z87.19 PERSONAL HISTORY OF OTHER DISEASES OF TH 08/27/2017 RICHIE BENTLEY MD, Ot Z87.442 PERSONAL HISTORY OF URINARY CALCULI 08/27/2017 ODGERS MD, RICHIE K Ot Z87.59 PERSONAL HISTORY OF COMP OF PREG, CHLDBR 08/27/2017 RICHIE BENTLEY MD Ot Z87.891 PERSONAL HISTORY OF NICOTINE DEPENDENCE 08/27/2017 RICHIE BENTLEY MD Ot Z90.721 ACQUIRED ABSENCE OF OVARIES, UNILATERAL 08/27/2017 RICHIE BENTLEY MD Ot Z95 .5 PRESENCE OF CORONARY ANGIOPLASTY IMPLANT 08/27/2017 RICHIE BENTLEY MD Ot Z98.51 TUBAL LIGATION STATUS 08/28/2017 KADIE EDWARDS MD, Ot E11.9 TYPE 2 DIABETES MELLITUS WITHOUT COMPLIC 08/28/2017 KADIE EDWARDS MD Ot E78.00 PURE HYPERCHOLESTEROLEMIA, UNSPECIFIED 08/28/2017 KADIE EDWARDS MD, Ot F32.9 MAJOR DEPRESSIVE DISORDER, SINGLE EPISOD 08/28/2017 KADIE EDWARDS MD, Ot F41.9 ANXIETY DISORDER, UNSPECIFIED 08/28/2017 KADIE EDWARDS MD Ot I25.2 OLD MYOCARDIAL INFARCTION 08/28/2017 KADIE EDWARDS MD Ot M19.90 UNSPECIFIED OSTEOARTHRITIS, UNSPECIFIED 08/28/2017 KADIE EDWARDS MD Ot N28.1 CYST OF KIDNEY, ACQUIRED 08/28/2017 KADIE EDWARDS MD Ot R42 DIZZINESS AND GIDDINESS 08/28/2017 KADIE EDWARDS MD Ot 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 08/28/2017 KADIE EDWARDS MD Ot Z87.442 PERSONAL HISTORY OF URINARY CALCULI 08/28/2017 KADIE EDWARDS MD Ot Z87.59 PERSONAL HISTORY OF COMP OF PREG, CHLDBR 08/28/2017 KADIE EDWARDS MD Ot Z87.891 PERSONAL HISTORY OF NICOTINE DEPENDENCE 08/28/2017 KADIE EDWARDS MD Ot Z90.721 ACQUIRED ABSENCE OF OVARIES, UNILATERAL 08/28/2017 KADIE EDWARDS MD Ot Z95.5 PRESENCE OF CORONARY ANGIOPLASTY IMPLANT 08/28/2017 KADIE EDWARDS MD Ot Z98.51 TUBAL LIGATION STATUS 08/29/2017 MARGUERITE [...] SCREENING FOR MALIGNANT NE 08/29/2017 MARGUERITE WAITE MD, Ot Z87.44 2 PERSONAL HISTORY OF URINARY CALCULI 09/03/2017 RICHIE BENTLEY MD, Ot E11 .9 TYPE 2 DIABETES MELLITUS WITHOUT COMPLIC 09/03/2017 RICHIE BENTLEY MD, Ot F32 .9 MAJOR DEPRESSIVE DISORDER, SINGLE EPISOD 09/03/2017 RICHIE BENTLEY MD, Ot F41 .9 ANXIETY DISORDER, UNSPECIFIED 09/03/2017 RICHIE BENTLEY MD, Ot I25 .2 OLD MYOCARDIAL INFARCTION 09/03/2017 RICHIE BENTLEY MD, Ot K21 .9 GASTRO-ESOPHAGEAL REFLUX DISEASE WITHOUT 09/03/2017 RICHIE BENTLEY MD, Ot M19.90 UNSPECIFIED OSTEOARTHRITIS, UNSPECIFIED 09/03/2017 RICHIE BENTLEY MD, Ot R10.13 EPIGASTRIC PAIN 09/03/2017 RICHIE BENTLEY MD, Ot R10 .9 UNSPECIFIED ABDOMINAL PAIN 09/03/2017 RICHIE BENTLEY MD, Ot Z79.82 SNF (CURRENT) USE OF ASPIRIN 09/03/2017 RICHIE BENTLEY [...] ABSENCE OF OVARIES, UNILATERAL 09/03/2017 RICHIE BENTLEY MD, Ot Z95 .5 PRESENCE OF CORONARY ANGIOPLASTY IMPLANT 09/03/2017 RICHIE BENTLEY MD Ot Z98.51 TUBAL LIGATION STATUS 09/29/2017 Ot 250.00 ELSY Yifan MYERS WO COMPL, TYPE II OR UNSPEC TY 09/29/2017 Ot 272.4 HYPE RLIPIDEMIA NEC/NOS 09/29/2017 Ot V58.69 OTH MED,LT,CURRENT USE 09/29/2017 LINDEN MOISE FACC, DASIA FACP CCDS Ot 272.4 HYPERLIPIDEMIA NEC/NOS 09/29/2017 WESTON ALCANTAR MD Ot 789.00 ABDOMINAL PAIN, UNSPECIFIED SITE 09/29/2017 WESTON ALCANTAR MD Ot 793.11 SOLITARY PULMONARY NODULE 09/29/2017 WESTON ALCANTAR MD Ot 593 .9 RENAL URETERAL DIS NOS 09/29/2017 MARGUERITE WAITE MD Ot Z01.81 8 ENCOUNTER FOR OTHER PREPROCEDURAL EXAMIN 09/29/2017 MARGUERITE WAITE MD, Ot Z12.11 ENCOUNTER FOR SCREENING FOR MALIGNANT NE 09/29/2017 MARGUERITE WAITE MD, Ot Z86.01 0 PERSONAL HISTORY OF COLONIC POLYPS 09/29/2017 MARGUERITE WAITE MD Ot Z87.11 PERSONAL HISTORY OF PEPTIC ULCER DISEASE 09/29/2017 FOREIGN HORAN L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 Ot E11.9 TYPE 2 DIABETES MELLITUS WITHOUT COMPLIC 09/29/2017 FOREIGN HORAN L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 Ot E78.4 OTHER HYPERLIPIDEMIA 09/29/2017 AUNG FOREIGN L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 Ot I 10 ESSENTIAL (PRIMARY) HYPERTENSION 09/29/2017 ESTHER HORANHER L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 Ot I25.10 ATHSCL HEART DISEASE OF [place] CORONARY 09/29/2017 FOREIGN HORAN L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 Ot I65.23 OCCLUSION AND STENOSIS OF [place]ATERAL [place] 09/29/2017 ESTHER HORANHER L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 Ot R07.89 OTHER CHEST PAIN 09/29/2017 ESTHER HORANHER L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 Ot E11.9 TYPE 2 DIABETES MELLITUS WITHOUT COMPLIC 09/29/2017 PRISCILLA BLANCAS SCRAP DEALER Ot N28.89 OTHER SPECIFIED DISORDERS OF KIDNEY AND 09/29/2017 PRISCILLA BLANCAS SCRAP DEALER Ot N28.89 OTHER SPECIFIED DISORDERS OF KIDNEY AND 09/29/2017 PRISCILLA BLANCAS APRN Ot R91.1 SOLITARY PULMONARY NODULE 10/05/2017 BLANCAS, PRISCILLA R SCRAP DEALER Ot N28.89 OTHER SPECIFIED DISORDERS OF KIDNEY AND 10/05/2017 BLANCASPRISCILLA R SCRAP DEALER Ot R91.1 SOLITARY PULMONARY NODULE 10/13/2017 PRISCILLA BLANCAS R SCRAP DEALER Ot N28.89 OTHER SPECIFIED DISORDERS OF KIDNEY AND 10/13/2017 PRISCILLA BLANCAS R SCRAP DEALER Ot N28.1 CYST OF KIDNEY, ACQUIRED 10/13/2017 PRISCILLA BLANCAS R SCRAP DEALER Ot N28.89 OTHER SPECIFIED DISORDERS OF KIDNEY AND 10/13/2017 PRISCILLA BLANCAS R SCRAP DEALER Ot Z90.49 ACQUIRED ABSENCE OF OTHER SPECIFIED PART 11/16/2017 PRISCILLA BLANCAS R SCRAP DEALER Ot Z12.31 ENCNTR SCREEN MAMMOGRAM FOR MALIGNANT NE 12/12/2017 VALENTINE MOISE, KHURRAM Caba Ot E11. 9 TYPE 2 DIABETES MELLITUS WITHOUT COMPLIC 12/12/2017 VALENTINE MOISE, KHURRAM Caba Ot E78. 00 PURE HYPERCHOLESTEROLEMIA, UNSPECIFIED 12/12/2017 VALENTINE MOISE, KHURRAM Caba Ot F32. 9 MAJOR DEPRESSIVE DISORDER, SINGLE EPISOD 12/12/2017 VALENTINE MOISE, KHURRAM Caba Ot F41. 9 ANXIETY DISORDER, UNSPECIFIED 12/12/2017 VALENTINE MOISE, KHURRAM Caba Ot G51. 0 LOZADA'S PALSY 12/12/2017 VALENTINE MOISE, KHURRAM Caba Ot I25. 2 OLD MYOCARDIAL INFARCTION 12/12/2017 VALENTINE MOISE, KHURRAM Caba Ot K21. 9 GASTRO-ESOPHAGEAL REFLUX DISEASE WITHOUT 12/12/2017 VALENTINE MOISE, KHURRAM Caba Ot M25.462 EFFUSION, LEFT KNEE 12/12/2017 VALENTINE MOISE, KHURRAM Caba Ot W01.198A FALL SAME LEV FROM SLIP/TRIP W STRIKE AG 12/12/2017 VALENTINE MOISE, KUHRRAM Caba Ot Z79. 82 INTEGRATED LOGISTICS PROGRAMS DIRECTOR (CURRENT) USE OF ASPIRIN 12/12/2017 VALENTINE MOISE, KHURRAM Caba Ot Z87. 19 PERSONAL HISTORY OF OTHER DISEASES OF TH 12/12/2017 VALENTINE MOISE, KHURRAM Caba Ot Z87.442 PERSONAL HISTORY OF URINARY CALCULI 12/12/2017 VALENTINE MOISE, KHURRAM Caba Ot Z87. 59 PERSONAL HISTORY OF COMP OF PREG, CHLDBR 12/12/2017 KHURRAM GRIJALVA MD Ot Z87.891 PERSONAL HISTORY OF NICOTINE DEPENDENCE 12/12/2017 VALENTINE MOISE, KHURRAM Caba Ot Z88. 1 ALLERGY STATUS TO OTHER ANTIBIOTIC AGENT 12/12/2017 VALENTINE MOISE, KHURRAM Caba Ot Z88. 5 ALLERGY STATUS TO NARCOTIC AGENT STATUS 12/12/2017 VALENTINE MOISE, KHURRAM Caba Ot Z88. 8 ALLERGY STATUS TO OTH DRUG/MEDS/BIOL SUB 12/12/2017 VALENTINE MOISE, KHURRAM Gertrudis Ot Z90.721 ACQUIRED ABSENCE OF OVARIES, UNILATERAL 12/12/2017 VALENTINE MOISE, KHURRAM Caba Ot Z95. 5 PRESENCE OF CORONARY ANGIOPLASTY IMPLANT 12/12/2017 VALENTINE MOISE, KHURRAM Gertrudis Ot Z98. 51 TUBAL LIGATION STATUS 12/14/2017 VALENTINE MOISE, KHURRAM Caba Ot E11. 9 TYPE 2 DIABETES MELLITUS WITHOUT COMPLIC 12/14/2017 VALENTINE MOISE, KHURRAM Caba Ot E78. 00 PURE HYPERCHOLESTEROLEMIA, UNSPECIFIED 12/14/2017 VALENTINE MOISE, KHURRAM Caba Ot F32. 9 MAJOR DEPRESSIVE DISORDER, SINGLE EPISOD 12/14/2017 VALENTINE MOISE, KHURRAM Gertrudis Ot F41. 9 ANXIETY DISORDER, UNSPECIFIED 12/14/2017 VALENTINE MOISE, KHURRAM Caba Ot G51. 0 LOZADA'S PALSY 12/14/2017 VALENTINE MOISE, KHURRAM Gertrudis Ot I25. 2 OLD MYOCARDIAL INFARCTION 12/14/2017 VALENTINE MOISE, KHURRAM Gertrudis Ot K21. 9 GASTRO-ESOPHAGEAL REFLUX DISEASE WITHOUT 12/14/2017 VALENTINE MOISE, KHURRAM Caba Ot M25.462 EFFUSION, LEFT KNEE 12/14/2017 VALENTINE MOISE, KHURRAM Gertrudis Ot W01.198A FALL SAME LEV FROM SLIP/TRIP W STRIKE AG 12/14/2017 VALENTINE MOISE, KHURRAM Gertrudis Ot Z79. 82 INTEGRATED LOGISTICS PROGRAMS DIRECTOR (CURRENT) USE OF ASPIRIN 12/14/2017 VALENTINE MOISE, KHURRAM Gertrudis Ot Z87. 19 PERSONAL HISTORY OF OTHER DISEASES OF TH 12/14/2017 VALENTINE MOISE, KHURRAM Caba Ot Z87.442 PERSONAL HISTORY OF URINARY CALCULI 12/14/2017 VALENTINE MOISE, KHURRAM Caba Ot Z87. 59 PERSONAL HISTORY OF COMP OF PREG, CHLDBR 12/14/2017 VALENTINE MOISE, KHURRAM Caba Ot Z87.891 PERSONAL HISTORY OF NICOTINE DEPENDENCE 12/14/2017 VALENTINE MOISE, KHURRAM Caba Ot Z88. 1 ALLERGY STATUS TO OTHER ANTIBIOTIC AGENT 12/14/2017 VALENTINE MOISE, KHURRAM Caba Ot Z88. 5 ALLERGY STATUS TO NARCOTIC AGENT STATUS 12/14/2017 KHURRAM GRIJALVA MD Ot Z88. 8 ALLERGY STATUS TO OTH DRUG/MEDS/BIOL SUB 12/14/2017 KHURRAM GRIJALVA MD Ot Z90.721 ACQUIRED ABSENCE OF OVARIES, UNILATERAL 12/14/2017 KHURRAM GRIJALVA MD Ot Z95. 5 PRESENCE OF CORONARY ANGIOPLASTY IMPLANT 12/14/2017 KHURRAM GRIJALVA MD Ot Z98. 51 TUBAL LIGATION STATUS 04/11/2018 LINDEN MOISE FACC, DASIA LUOP CCDS Ot 272.4 HYPERLIPIDEMIA NEC/NOS 04/11/2018 WESTON ALCANTAR MD Ot 789.00 ABDOMINAL PAIN, UNSPECIFIED SITE 04/11/2018 WESTON ALCANTAR MD Ot 793.11 SOLITARY PULMONARY NODULE 04/11/2018 WESTON ALCANTAR MD Ot 593 .9 RENAL URETERAL DIS NOS 04/11/2018 MARGUERITE WAITE MD Ot Z01.81 8 ENCOUNTER FOR OTHER PREPROCEDURAL EXAMIN 04/11/2018 MARGUERITE WAITE MD Ot Z12.11 ENCOUNTER FOR SCREENING FOR MALIGNANT NE 04/11/2018 MARGUERITE WAITE MD Ot Z86.01 0 PERSONAL HISTORY OF COLONIC POLYPS 04/11/2018 MARGUERITE WAITE MD Ot Z87.11 PERSONAL HISTORY OF PEPTIC ULCER DISEASE 04/11/2018 FOREIGN HORAN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 Ot E11.9 TYPE 2 DIABETES MELLITUS WITHOUT COMPLIC 04/11/2018 FOREIGN HORAN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 Ot E78.4 OTHER HYPERLIPIDEMIA 04/11/2018 FOREIGN HORAN L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 Ot I 10 ESSENTIAL (PRIMARY) HYPERTENSION 04/11/2018 FOREIGN HORAN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 Ot I25.10 ATHSCL HEART DISEASE OF [place] CORONARY 04/11/2018 FOREIGN HORAN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 Ot I65.23 OCCLUSION AND STENOSIS OF BILATERAL [place] 04/11/2018 FOREIGN HORAN L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 Ot R07.89 OTHER CHEST PAIN 04/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 [employer]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 Ot E11.9 TYPE 2 DIABETES MELLITUS WITHOUT COMPLIC 04/11/2018 PRISCILLA BLANCAS SCRAP DEALER Ot N28.89 OTHER SPECIFIED DISORDERS OF KIDNEY AND 04/11/2018 PRISCILLA BLANCAS SCRAP DEALER Ot N28.89 OTHER SPECIFIED DISORDERS OF KIDNEY AND 04/11/2018 BLANCAS, PRISCILLA R SCRAP DEALER Ot R91.1 SOLITARY PULMONARY NODULE 04/11/2018 PRISCILLA BLANCAS SCRAP DEALER Ot N28.1 CYST OF KIDNEY, ACQUIRED 04/11/2018 BLANCASPRISCILLA Yee SCRAP DEALER Ot N28.89 OTHER SPECIFIED DISORDERS OF KIDNEY AND 04/11/2018 BLANCASPRISCILLA Yee SCRAP DEALER Ot Z90.49 ACQUIRED ABSENCE OF OTHER SPECIFIED PART 04/11/2018 YONNYPRISCILLA SCRAP DEALER Ot Z12.31 ENCNTR SCREEN MAMMOGRAM FOR MALIGNANT NE 04/11/2018 TRAVIS CANDELARIA APRN Ot E11 .9 TYPE 2 DIABETES MELLITUS WITHOUT COMPLIC 04/11/2018 TRAVIS CANDELARIA APRN Ot E78.00 PURE HYPERCHOLESTEROLEMIA, UNSPECIFIED 04/11/2018 TRAVIS CANDELARIA APRN Ot F32 .9 MAJOR DEPRESSIVE DISORDER, SINGLE EPISOD 04/11/2018 TRAVIS CANDELARIA APRN Ot F41 .9 ANXIETY DISORDER, UNSPECIFIED 04/11/2018 TRAVIS CANDELARIA APRN Ot G51 .0 LOZADA'S PALSY 04/11/2018 TRAVIS CANDELARIA APRN Ot G89.29 OTHER CHRONIC PAIN 04/11/2018 TRAVIS CANDELARIA APRN Ot I25 .2 OLD MYOCARDIAL INFARCTION 04/11/2018 TRAVIS CANDELARIA APRN Ot K21 .9 GASTRO-ESOPHAGEAL REFLUX DISEASE WITHOUT 04/11/2018 TRAVIS CANDELARIA APRN Ot R10 .9 UNSPECIFIED ABDOMINAL PAIN 04/11/2018 TRAVIS CANDELARIA APRN Ot 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 04/11/2018 TRAVIS CANDELARIA [...] NICOTINE DEPENDENCE 04/11/2018 TRAVIS CANDELARIA APRN Ot Z88 .1 ALLERGY STATUS TO OTHER ANTIBIOTIC AGENT 04/11/2018 TRAVIS CANDELARIA APRN Ot Z88 .4 ALLERGY STATUS TO ANESTHETIC AGENT STATU 04/11/2018 TRAVIS CANDELARIA APRN Ot Z88 .5 ALLERGY STATUS TO NARCOTIC AGENT STATUS 04/11/2018 TRAVIS CANDELARIA APRN Ot Z90.721 ACQUIRED ABSENCE OF OVARIES, UNILATERAL 04/11/2018 TRAVIS CANDELARIA APRN Ot Z98.51 TUBAL LIGATION STATUS 04/13/2018 TRAVIS CANDELARIA APRN Ot E11 .9 TYPE 2 DIABETES MELLITUS WITHOUT COMPLIC 04/13/2018 TRAVIS CANDELARIA APRN Ot E78.00 PURE HYPERCHOLESTEROLEMIA, UNSPECIFIED 04/13/2018 TRAVIS CANDELARIA APRN Ot F32 .9 MAJOR DEPRESSIVE DISORDER, SINGLE EPISOD 04/13/2018 TRAVIS CANDELARIA APRN Ot F41 .9 ANXIETY DISORDER, UNSPECIFIED 04/13/2018 TRAVIS CANDELARIA APRN Ot G51 .0 LOZADA'S PALSY 04/13/2018 TRAVIS CANDELAIRA APRN Ot G89.29 OTHER CHRONIC PAIN 04/13/2018 TRAVIS CANDELARIA APRN Ot I25 .2 OLD MYOCARDIAL INFARCTION 04/13/2018 TRAVIS CANDELARIA APRN Ot K21 .9 GASTRO-ESOPHAGEAL REFLUX DISEASE WITHOUT 04/13/2018 TRAVIS CANDELARIA APRN Ot R10 .9 UNSPECIFIED ABDOMINAL PAIN 04/13/2018 TRAVIS CANDELARIA APRN Ot 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 04/13/2018 TRAVIS CANDELARIA APRN Ot Z85.828 PERSONAL HISTORY OF OTHER MALIGNANT NEOP 04/13/2018 TRAVIS CANDELARIA APRN Ot Z87.19 PERSONAL HISTORY OF OTHER DISEASES OF TH 04/13/2018 TRVAIS CANDELARIA APRN Ot Z87.442 PERSONAL HISTORY OF URINARY CALCULI 04/13/2018 TRAVIS CANDELARIA APRN Ot Z87.59 PERSONAL HISTORY OF COMP OF PREG, CHLDBR 04/13/2018 TRAVIS CANDELARIA APRN Ot Z87.891 PERSONAL HISTORY OF NICOTINE DEPENDENCE 04/13/2018 TRAVIS CANDELARIA APRN Ot Z88 .1 ALLERGY STATUS TO OTHER ANTIBIOTIC AGENT 04/13/2018 TRAVIS CANDELARIA APRN Ot Z88 .4 ALLERGY STATUS TO ANESTHETIC AGENT STATU 04/13/2018 TRAVIS CANDELARIA APRN Ot Z88 .5 ALLERGY STATUS TO NARCOTIC AGENT STATUS 04/13/2018 TRAVIS CANDELARIA APRN Ot Z90.721 ACQUIRED ABSENCE OF OVARIES, UNILATERAL 04/13/2018 TRAVIS CANDELARIA APRN Ot Z98.51 TUBAL LIGATION STATUS 04/22/2018 PRISCILLA BLANCAS MIESHA Ot C64.2 MALIGNANT NEOPLASM OF LEFT KIDNEY, EXCEP 05/01/2018 KADIE EDWARDS MD Ot E11.9 TYPE 2 DIABETES MELLITUS WITHOUT COMPLIC 05/01/2018 KADIE EDWARDS MD, Ot E78.00 PURE HYPERCHOLESTEROLEMIA, UNSPECIFIED 05/01/2018 KADIE EDWARDS MD, Ot F32.9 MAJOR DEPRESSIVE DISORDER, SINGLE EPISOD 05/01/2018 KADIE EDWARDS MD, Ot F41.9 ANXIETY DISORDER, UNSPECIFIED 05/01/2018 KADIE EDWARDS MD, Ot I25.2 OLD MYOCARDIAL INFARCTION 05/01/2018 KADIE EDWARDS MD, Ot K21.9 GASTRO-ESOPHAGEAL REFLUX DISEASE WITHOUT 05/01/2018 KADIE EDWARDS MD Ot M47.22 OTHER SPONDYLOSIS WITH RADICULOPATHY, CE 05/01/2018 KADIE EDWARDS MD, Ot M54.2 CERVICALGIA 05/01/2018 KADIE EDWARDS MD, Ot 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 05/01/2018 KADIE EDWARDS MD, Ot Z85.828 PERSONAL HISTORY OF OTHER MALIGNANT NEOP 05/01/2018 KADIE EDWARDS MD, Ot Z87.19 PERSONAL HISTORY OF OTHER DISEASES OF TH 05/01/2018 KADIE EDWARDS MD, Ot Z87.442 PERSONAL HISTORY OF URINARY CALCULI 05/01/2018 KADIE EDWARDS MD, Ot Z87.59 PERSONAL HISTORY OF COMP OF PREG, CHLDBR 05/01/2018 KADIE EDWARDS MD, Ot Z87.891 PERSONAL HISTORY OF NICOTINE DEPENDENCE 05/01/2018 KADIE EDWARDS MD, Ot Z88.1 ALLERGY STATUS TO OTHER ANTIBIOTIC AGENT 05/01/2018 KADIE EDWARDS MD, Ot Z88.4 ALLERGY STATUS TO ANESTHETIC AGENT STATU 05/01/2018 KADIE EDWARDS MD, Ot Z88.5 ALLERGY STATUS TO NARCOTIC AGENT STATUS 05/01/2018 KADIE EDWARDS MD Ot Z98.51 TUBAL LIGATION STATUS 05/03/2018 LITTLE TRAVERSE MD, KADIE D Ot E11.9 TYPE 2 DIABETES MELLITUS WITHOUT COMPLIC 05/03/2018 KADIE EDWARDS MD, Ot E78.00 PURE HYPERCHOLESTEROLEMIA, UNSPECIFIED 05/03/2018 KADIE EDWARDS MD, Ot F32.9 MAJOR DEPRESSIVE DISORDER, SINGLE EPISOD 05/03/2018 KADIE EDWARDS MD, Ot F41.9 ANXIETY DISORDER, UNSPECIFIED 05/03/2018 KADIE EDWARDS MD, Ot I25.2 OLD MYOCARDIAL INFARCTION 05/03/2018 KADIE EDWARDS MD, Ot K21.9 GASTRO-ESOPHAGEAL REFLUX DISEASE WITHOUT 05/03/2018 KADIE EDWARDS MD, Ot M47.22 OTHER SPONDYLOSIS WITH RADICULOPATHY, CE 05/03/2018 KADIE EDWARDS MD, Ot M54.2 CERVICALGIA 05/03/2018 KADIE EDWARDS MD, Ot Z79.82 SNF (CURRENT) USE OF ASPIRIN 05/03/2018 KADIE EDWARDS MD, Ot Z85.828 PERSONAL HISTORY OF OTHER MALIGNANT NEOP 05/03/2018 KADIE EDWARDS MD, Ot Z87.19 PERSONAL HISTORY OF OTHER DISEASES OF TH 05/03/2018 KADIE EDWARDS MD, Ot Z87.442 PERSONAL HISTORY OF URINARY CALCULI 05/03/2018 KADIE EDWARDS MD, Ot Z87.59 PERSONAL HISTORY OF COMP OF PREG, CHLDBR 05/03/2018 KADIE EDWARDS MD, Ot Z87.891 PERSONAL HISTORY OF NICOTINE DEPENDENCE 05/03/2018 KADIE EDWARDS MD, Ot Z88.1 ALLERGY STATUS TO OTHER ANTIBIOTIC AGENT 05/03/2018 KADIE EDWARDS MD, Ot Z88.4 ALLERGY STATUS TO ANESTHETIC AGENT STATU 05/03/2018 KADIE EDWARDS MD, Ot Z88.5 ALLERGY STATUS TO NARCOTIC AGENT STATUS 05/03/2018 KADIE EDWARDS MD, Ot Z98.51 TUBAL LIGATION STATUS 05/04/2018 PRISCILLA BLANCAS APRN Ot C64.2 MALIGNANT NEOPLASM OF LEFT KIDNEY, EXCEP 07/20/2018 PRISCILLA BLANCAS APRN Ot M25.78 OSTEOPHYTE, VERTEBRAE 07/20/2018 PRISCILLA BLANCAS APRN Ot M47.22 OTHER SPONDYLOSIS WITH RADICULOPATHY, CE 07/20/2018 PRISCILLA BLANCAS R SCRAP DEALER Ot M48.03 SPINAL STENOSIS, CERVICOTHORACIC REGION 07/20/2018 NADER BLANCASELE R SCRAP DEALER Ot M50.121 CERVICAL DISC DISORDER AT C4-C5 LEVEL [place] 07/20/2018 NADER BLANCASELE R SCRAP DEALER Ot M50.13 CERVICAL DISC DISORDER W RADICULOPATHY, 07/20/2018 NADER BLANCASELE R SCRAP DEALER Ot 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 07/29/2018 PRISCILLA BLANCAS R SCRAP DEALER Ot M25.78 OSTEOPHYTE, VERTEBRAE 07/29/2018 NADER BLANCASELE R SCRAP DEALER Ot M47.22 OTHER SPONDYLOSIS WITH RADICULOPATHY, CE 07/29/2018 PRISCILLA BLANCAS R SCRAP DEALER Ot M48.03 SPINAL STENOSIS, CERVICOTHORACIC REGION 07/29/2018 NADER BLANCASELE R SCRAP DEALER Ot M50.121 CERVICAL DISC DISORDER AT C4-C5 LEVEL [place] 07/29/2018 PRISCILLA BLANCAS R SCRAP DEALER Ot M50.13 CERVICAL DISC DISORDER W RADICULOPATHY, 07/29/2018 NADER BLANCASELE R SCRAP DEALER Ot 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 09/15/2018 TRAVIS CANDELARIA APRN Ot E11 .9 TYPE 2 DIABETES MELLITUS WITHOUT COMPLIC 09/15/2018 TRAVIS CANDELARIA APRN Ot E78.00 PURE HYPERCHOLESTEROLEMIA, UNSPECIFIED 09/15/2018 TRAVIS CANDELARIA APRN Ot F32 .9 MAJOR DEPRESSIVE DISORDER, SINGLE EPISOD 09/15/2018 TRAVIS CANDELARIA APRN Ot F41 .9 ANXIETY DISORDER, UNSPECIFIED 09/15/2018 TRAVIS CANDELARIA APRN Ot G51 .0 LOZADA'S PALSY 09/15/2018 TRAVIS CANDELARIA APRN Ot I25 .2 OLD MYOCARDIAL INFARCTION 09/15/2018 TRAVIS CANDELARIA APRN Ot K21 .9 GASTRO-ESOPHAGEAL REFLUX DISEASE WITHOUT 09/15/2018 TRAVIS CANDELARIA APRN Ot M48.8X2 OTHER SPECIFIED SPONDYLOPATHIES, CERVICA 09/15/2018 TRAVIS CANDELARIA APRN Ot R51 HEADACHE 09/15/2018 TRAVIS CANDELARIA APRN Ot Z79.52 INTEGRATED LOGISTICS PROGRAMS DIRECTOR (CURRENT) USE OF SYSTEMIC STER 09/15/2018 TRAVIS CANDELARIA APRN Ot Z79.82 SNF (CURRENT) USE OF ASPIRIN 09/15/2018 TRAVIS CANDELARIA APRN Ot Z85.528 PERSONAL HISTORY OF OTHER MALIGNANT NEOP 09/15/2018 TRAVIS CANDELARIA APRN Ot Z87.19 PERSONAL HISTORY OF OTHER DISEASES OF TH 09/15/2018 TRAVIS CANDELARIA APRN Ot Z87.442 PERSONAL HISTORY OF URINARY CALCULI 09/15/2018 TRAVIS CANDELARIA APRN Ot Z87.891 PERSONAL HISTORY OF NICOTINE DEPENDENCE 09/15/2018 TRAVIS CANDELARIA APRN Ot Z88 .1 ALLERGY STATUS TO OTHER ANTIBIOTIC AGENT 09/15/2018 TRAVIS CANDELARIA APRN Ot Z88 .4 ALLERGY STATUS TO ANESTHETIC AGENT STATU 09/15/2018 TRAVIS CANDELARIA APRN Ot Z88 .5 ALLERGY STATUS TO NARCOTIC AGENT STATUS 09/15/2018 TRAVIS CANDELARIA APRN Ot Z88 .8 ALLERGY STATUS TO OTH DRUG/MEDS/BIOL SUB 09/15/2018 TRAVIS CANDELARIA APRN Ot Z90.722 ACQUIRED ABSENCE OF OVARIES, BILATERAL 09/15/2018 TRAVIS CANDELARIA APRN Ot Z95 .9 PRESENCE OF CARDIAC AND VASCULAR IMPLANT 09/15/2018 RTAVIS CANDELARIA APRN Ot Z98.51 TUBAL LIGATION STATUS 09/15/2018 TRAVIS CANDELARIA APRN Ot Z98.890 OTHER SPECIFIED POSTPROCEDURAL STATES 09/22/2018 TRAVIS CANDELARIA APRN Ot E11 .9 TYPE 2 DIABETES MELLITUS WITHOUT COMPLIC 09/22/2018 TRAVIS CANDELARIA APRN Ot E78.00 PURE HYPERCHOLESTEROLEMIA, UNSPECIFIED 09/22/2018 TRAVIS CANDELARIA APRN Ot F32 .9 MAJOR DEPRESSIVE DISORDER, SINGLE EPISOD 09/22/2018 TRAVIS CANDELARIA APRN Ot F41 .9 ANXIETY DISORDER, UNSPECIFIED 09/22/2018 TRAVIS CANDELARIA APRN Ot G51 .0 LOZADA'S PALSY 09/22/2018 TRAVIS CANDELARIA APRN Ot I25 .2 OLD MYOCARDIAL INFARCTION 09/22/2018 TRAVIS CANDELARIA APRN Ot K21 .9 GASTRO-ESOPHAGEAL REFLUX DISEASE WITHOUT 09/22/2018 TRAVIS CANDELARIA APRN Ot M48.8X2 OTHER SPECIFIED SPONDYLOPATHIES, CERVICA 09/22/2018 TRAVIS CANDELARIA APRN Ot R51 HEADACHE 09/22/2018 TRAVIS CANDELARIA APRN Ot Z79.52 SNF (CURRENT) USE OF SYSTEMIC STER 09/22/2018 TRAVIS CANDELARIA APRN Ot 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 09/22/2018 TRAVIS CANDELARIA APRN Ot Z85.528 PERSONAL HISTORY OF OTHER MALIGNANT NEOP 09/22/2018 TRAVIS CANDELARIA APRN Ot Z87.19 PERSONAL HISTORY OF OTHER DISEASES OF TH 09/22/2018 TRAVIS CANDELARIA APRN Ot Z87.442 PERSONAL HISTORY OF URINARY CALCULI 09/22/2018 TRAVIS CANDELARIA APRN Ot Z87.891 PERSONAL HISTORY OF NICOTINE DEPENDENCE 09/22/2018 TRAVIS CANDELARIA APRN Ot Z88 .1 ALLERGY STATUS TO OTHER ANTIBIOTIC AGENT 09/22/2018 TRAVIS CANDELARIA APRN Ot Z88 .4 ALLERGY STATUS TO ANESTHETIC AGENT STATU 09/22/2018 TRAVIS CANDELARIA APRN Ot Z88 .5 ALLERGY STATUS TO NARCOTIC AGENT STATUS 09/22/2018 TRAVIS CANDELARIA APRN Ot Z88 .8 ALLERGY STATUS TO OTH DRUG/MEDS/BIOL SUB 09/22/2018 TRAVIS CANDELARIA APRN Ot Z90.722 ACQUIRED ABSENCE OF OVARIES, BILATERAL 09/22/2018 TRAVIS CANDELARIA APRN Ot Z95 .9 PRESENCE OF CARDIAC AND VASCULAR IMPLANT 09/22/2018 TRAVIS CANDELARIA APRN Ot Z98.51 TUBAL LIGATION STATUS 09/22/2018 TRAVIS CANDELARIA APRN Ot Z98.890 OTHER SPECIFIED POSTPROCEDURAL STATES 11/07/2018 ROSA SNELL SCRAP DEALER Ot M43.16 SPONDYLOLISTHESIS, LUMBAR REGION 11/07/2018 ROSA SNELL SCRAP DEALER Ot M51.37 OTHER INTERVERTEBRAL DISC DEGENERATION, 11/16/2018 ROSA SNELL SCRAP DEALER Ot M43.16 SPONDYLOLISTHESIS, LUMBAR REGION 11/16/2018 ROSA SNELL SCRAP DEALER Ot M51.37 OTHER INTERVERTEBRAL DISC DEGENERATION, 11/22/2018 ROSA SNELL SCRAP DEALER Ot G89 .4 CHRONIC PAIN SYNDROME 11/22/2018 ROSA SNELL SCRAP DEALER Ot M53 .3 SACROCOCCYGEAL DISORDERS, NOT ELSEWHERE 11/29/2018 ORTIZ MOISE, WESTON K Ot 789.00 ABDOMINAL PAIN, UNSPECIFIED SITE 11/29/2018 ORTIZ MOISE, WESTON Nuno Ot 793.11 SOLITARY PULMONARY NODULE 11/29/2018 ORTIZ MOISE, WESTON Nuno Ot 593 .9 RENAL URETERAL DIS NOS 11/29/2018 MARGUERITE WAITE MD, Ot Z01.81 8 ENCOUNTER FOR OTHER PREPROCEDURAL EXAMIN 11/29/2018 MARGUERITE WAITE MD, Ot Z12.11 ENCOUNTER FOR SCREENING FOR MALIGNANT NE 11/29/2018 MARGUERITE WAITE MD, Ot Z86.01 0 PERSONAL HISTORY OF COLONIC POLYPS 11/29/2018 MARGUERITE WAITE MD, Ot Z87.11 PERSONAL HISTORY OF PEPTIC ULCER DISEASE 11/29/2018 FOREIGN HORAN L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 Ot E11.9 TYPE 2 DIABETES MELLITUS WITHOUT COMPLIC 11/29/2018 ESTHER HORANHER L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 Ot E78.4 OTHER HYPERLIPIDEMIA 11/29/2018 ESTHER HORANHER L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 Ot I 10 ESSENTIAL (PRIMARY) HYPERTENSION 11/29/2018 FOREIGN HORAN L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 Ot I25.10 ATHSCL HEART DISEASE OF [place] CORONARY 11/29/2018 ESTHER HORANHER L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 Ot I65.23 OCCLUSION AND STENOSIS OF BILATERAL [place] 11/29/2018 AUNG FOREIGN L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 Ot R07.89 OTHER CHEST PAIN 11/29/2018 AUNG FOREIGN L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 Ot E11.9 TYPE 2 DIABETES MELLITUS WITHOUT COMPLIC 11/29/2018 PRISCILLA BLANCAS SCRAP DEALER Ot N28.89 OTHER SPECIFIED DISORDERS OF KIDNEY AND 11/29/2018 PRISCILLA BLANCAS SCRAP DEALER Ot N28.89 OTHER SPECIFIED DISORDERS OF KIDNEY AND 11/29/2018 PRISCILLA BLANCAS SCRAP DEALER Ot R91.1 SOLITARY PULMONARY NODULE 11/29/2018 PRISCILLA BLANCAS SCRAP DEALER Ot N28.1 CYST OF KIDNEY, ACQUIRED 11/29/2018 PRISCILLA BLANCAS SCRAP DEALER Ot N28.89 OTHER SPECIFIED DISORDERS OF KIDNEY AND 11/29/2018 PRISCILLA BLANCAS SCRAP DEALER Ot Z90.49 ACQUIRED ABSENCE OF OTHER SPECIFIED PART 11/29/2018 PRISCILLA BLANCAS APRN Ot Z12.31 ENCNTR SCREEN MAMMOGRAM FOR MALIGNANT NE 11/29/2018 PRISCILLA BLANCAS APRN Ot C64.2 MALIGNANT NEOPLASM OF LEFT KIDNEY, EXCEP 11/29/2018 PRISCILLA BLANCAS SCRAP DEALER Ot M25.78 OSTEOPHYTE, VERTEBRAE 11/29/2018 PRISCILLA BLANCAS SCRAP DEALER Ot M47.22 OTHER SPONDYLOSIS WITH RADICULOPATHY, CE 11/29/2018 PRISCILLA BLANCAS SCRAP DEALER Ot M48.03 SPINAL STENOSIS, CERVICOTHORACIC REGION 11/29/2018 PRISCILLA BLANCAS SCRAP DEALER Ot M50.121 CERVICAL DISC DISORDER AT C4-C5 LEVEL WI 11/29/2018 PRISCILLA BLANCAS SCRAP DEALER Ot M50.13 CERVICAL DISC DISORDER W RADICULOPATHY, 11/29/2018 PRISCILLA BLANCAS SCRAP DEALER Ot 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 2 CERVICALGIA 12/13/2018 KERRY PETERS Ot Z48. 89 ENCOUNTER FOR OTHER SPECIFIED SURGICAL A 12/13/2018 KERRY PETERS Ot Z98. 1 ARTHRODESIS STATUS 01/18/2019 ROSA SNELL SCRAP DEALER Ot Z12.31 ENCNTR SCREEN MAMMOGRAM FOR MALIGNANT NE 01/22/2019 ROSA SNELL SCRAP DEALER Ot Z12.31 ENCNTR SCREEN MAMMOGRAM FOR MALIGNANT NE 01/31/2019 KERRY PETERS Ot M54. 2 CERVICALGIA 01/31/2019 KERRY PETERS Ot Z48. 89 ENCOUNTER FOR OTHER SPECIFIED SURGICAL A 01/31/2019 KERRY PETERS Ot Z98. 1 ARTHRODESIS STATUS 02/02/2019 ROSA SNELL SCRAP DEALER Ot Z12.31 ENCNTR SCREEN MAMMOGRAM FOR MALIGNANT NE 02/03/2019 ROSA SNELL SCRAP DEALER Ot G89 .4 CHRONIC PAIN SYNDROME 02/03/2019 ROSA SNELL SCRAP DEALER Ot M53 .3 SACROCOCCYGEAL DISORDERS, NOT ELSEWHERE 02/09/2019 KERRY PETERS Ot M54. 2 CERVICALGIA 02/09/2019 KERRY PETERS Ot Z48. 89 ENCOUNTER FOR OTHER SPECIFIED SURGICAL A 02/09/2019 KERRY PETERS Ot Z98. 1 ARTHRODESIS STATUS 03/01/2019 ROSA SNELL SCRAP DEALER Ot M48.02 SPINAL STENOSIS, CERVICAL REGION 03/01/2019 ROSA SNELL SCRAP DEALER Ot M54.41 LUMBAGO WITH SCIATICA, RIGHT SIDE 03/01/2019 ROSA SNELL SCRAP DEALER Ot M54.42 LUMBAGO WITH SCIATICA, LEFT SIDE 03/09/2019 ROSA SNELL SCRAP DEALER Ot M48.02 SPINAL STENOSIS, CERVICAL REGION 03/09/2019 ROSA SNELL SCRAP DEALER Ot M54.41 LUMBAGO WITH SCIATICA, RIGHT SIDE 03/09/2019 ROSA SNELL SCRAP DEALER Ot M54.42 LUMBAGO WITH SCIATICA, LEFT SIDE 04/25/2019 ROSA SNELL SCRAP DEALER Ot G89 .4 CHRONIC PAIN SYNDROME 04/25/2019 ROSA SNELL SCRAP DEALER Ot M53 .3 SACROCOCCYGEAL DISORDERS, NOT ELSEWHERE 06/06/2019 ARLIN PRICE SCRAP DEALER Ot N64.4 MASTODYNIA 06/26/2019 ARLIN PRICE SCRAP DEALER Ot N64.4 MASTODYNIA 09/04/2019 ROSA SNELL SCRAP DEALER Ot M47.26 OTHER SPONDYLOSIS WITH RADICULOPATHY, JULES 09/04/2019 ROSA SNELL SCRAP DEALER Ot M48.061 SPINAL STENOSIS, LUMBAR REGION WITHOUT N 09/04/2019 ROSA SNELL SCRAP DEALER Ot M51.17 INTVRT DISC DISORDERS W RADICULOPATHY, L 09/11/2019 GRACE MOISE, KADIE Torres Ot E11.9 TYPE 2 DIABETES MELLITUS WITHOUT COMPLIC 09/11/2019 GRACE MOISE, KADIE Torres Ot E78.00 PURE HYPERCHOLESTEROLEMIA, UNSPECIFIED 09/11/2019 GRACE MOISE, KADIE Torres Ot F17.210 NICOTINE DEPENDENCE, CIGARETTES, UNCOMPL 09/11/2019 KADIE EDWARDS MD, Ot F32.9 MAJOR DEPRESSIVE DISORDER, SINGLE EPISOD 09/11/2019 KADIE EDWARDS MD, Ot F41.9 ANXIETY DISORDER, UNSPECIFIED 09/11/2019 KADIE EDWARDS MD, Ot K21.9 GASTRO-ESOPHAGEAL REFLUX DISEASE WITHOUT 09/11/2019 KADIE EDWARDS MD, Ot M54.16 RADICULOPATHY, LUMBAR REGION 09/11/2019 KADIE EDWARDS MD, Ot M54.5 LOW BACK PAIN 09/11/2019 KADIE EDWARDS MD, Ot S39.012A STRAIN OF MUSCLE, FASCIA AND TENDON OF L 09/11/2019 KADIE EDWARDS MD, Ot X50.1XXA OVEREXERTION FROM PROLONGED STATIC OR AW 09/11/2019 KADIE EDWARDS MD, Ot 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 09/11/2019 KADIE EDWARDS MD, Ot Z85.528 PERSONAL HISTORY OF OTHER MALIGNANT NEOP 09/11/2019 KADIE EDWARDS MD, Ot Z87.442 PERSONAL HISTORY OF URINARY CALCULI 09/11/2019 KADIE EDWARDS MD, Ot Z88.1 ALLERGY STATUS TO OTHER ANTIBIOTIC AGENT 09/11/2019 KADIE EDWARDS MD, Ot Z88.5 ALLERGY STATUS TO NARCOTIC AGENT STATUS 09/11/2019 KADIE EDWARDS MD, Ot Z88.6 ALLERGY STATUS TO ANALGESIC AGENT STATUS 09/11/2019 KADIE EDWARDS MD, Ot Z90.5 ACQUIRED ABSENCE OF KIDNEY 09/11/2019 KADIE EDWARDS MD, Ot Z98.51 TUBAL LIGATION STATUS 11/07/2019 SARTHAK COELLO MD A Ot M54.16 RADICULOPATHY, LUMBAR REGION 11/13/2019 SARTHAK COELLO MD A Ot M54.16 RADICULOPATHY, LUMBAR REGION Procedures There is no data. Results Test Result Range Automated blood complete blood count (he mogram) panel - 05/18/17 07:32 Blood leukocytes automated count (number/volume) 6.9 10*3/uL 4.3-11.0 Blood erythrocytes automated count (number/volume) 4.59 10*6/uL 4.35-5.85 Venous blood hemoglobin measurement (mass/volume) 14.0 g/dL 11.5-16.0 Blood hematocrit (volume fraction) 43 % 35-52 Automated erythrocyte mean corpuscular volume 93 [ foz_us] 80-99 Automated erythrocyte mean corpuscular h emoglobin (mass per erythrocyte) 31 pg 25-34 Automated erythrocyte mean corpuscular h emoglobin concentration measurement (mass/volume) 33 g/dL 32-36 Automated erythrocyte distribution width ratio 13. 5 % 10.0- 14.5 Automated blood platelet count (count/volume) 154 10*3/uL [...] 5-14 Serum or plasma urea nitrogen measurement (mass/volume ) 18 mg/dL 7-18 Serum or plasma creatinine measurement (mass/volume) 0.72 mg/dL 0.60-1.30 Serum or plasma urea nitrogen/creatinine mass ratio 25 NRG Serum or plasma creatinine measurement w ith calculation of estimated glomerular filtration rate > NRG Serum or plasma glucose measurement (mass/volume) 114 mg/dL 70-105 Serum or plasma calcium measurement (mass/volume) 9.4 mg/dL 8.5-10.1 Serum or plasma total bilirubin measurement (mass/volu me) 0.5 mg/dL 0.1-1.0 Serum or plasma alkaline phosphatase santi surement (enzymatic activity/volume) 77 U/L 40-136 Serum or plasma aspartate aminotransfera se measurement (enzymatic activity/volume) 15 U/L 5-34 Serum or plasma alanine aminotransferase measurement (enzymatic activity/volume) 13 U/L 0-55 Serum or plasma protein measurement (mass/volume) 6.9 g/dL 6.4-8.2 Serum or plasma albumin measurement (mass/volume) 3.8 g/dL 3.2-4.5 Lipid 1996 panel - 05/18/17 07:32 Serum or plasma triglyceride measurement (mass/volume) 79 mg/dL <150 Serum or plasma cholesterol measurement (mass/volume) 136 mg/dL < 200 Serum or plasma cholesterol in HDL measurement (mass/v olume) 34 mg/dL 40-60 Cholesterol in LDL [mass/volume] in serum or plasma by direct assay 92 mg/dL 1-129 Serum or plasma cholesterol in VLDL measurement (mass/ volume) 16 mg/dL 5-40 PT panel in platelet poor plasma by coag ulation assay - 05/18/17 07:32 Prothrombin time (PT) in platelet poor plasma by coagu lation assay 12.5 s 12.2-14.7 INR in platelet poor plasma or blood by coagulation as say 1.0 0.8-1.4 Activated partial thromboplastin time (a PTT) in platelet poor plasma bycoagulation assay - 05/18/17 07:32 Activated partial thromboplastin time (a PTT) in platelet poor plasma bycoagulation assay 30 s 24-35 Methicillin resistant Staphylococcus aur eus (MRSA) screening culture - 05/18/17 07:32 MRSA SCREEN RESULT MRSA ISOLATED NRG Capillary blood glucose measurement by g lucometer (mass/volume) - 08/18/17 12:42 Capillary blood glucose measurement by glucometer (mas s/volume) 112 mg/dL 70-110 Complete urinalysis with reflex to cultu re - 08/27/17 07:00 Urine color determination YELLOW NRG Urine clarity determination CLEAR NR G Urine pH measurement by test strip 7 5-9 Specific gravity of urine by test strip 1.010 1.016-1.022 Urine protein assay by test strip, semi-quantitative NEGATIVE NEGATIVE Urine glucose detection by automated test strip NE GATIVE NEGATIVE Erythrocytes detection in urine sediment by light micr oscopy NEGATIVE NEGATIVE Urine ketones detection by automated test strip NE GATIVE NEGATIVE Urine nitrite detection by test strip NEGATIVE NEGATIVE Urine total bilirubin detection by test strip NEGA TIVE NEGATIVE Urine urobilinogen measurement by automated test strip (mass/volume) NORMAL NORMAL Urine leukocyte esterase detection by dipstick NEG ATIVE NEGATIVE Automated urine sediment erythrocyte cou nt by microscopy (number/high power field) NONE NRG Automated urine sediment leukocyte count by microscopy (number/high power field) RARE NRG Bacteria detection in urine sediment by light microsco py NEGATIVE NRG Squamous epithelial cells detection in u rine sediment by light microscopy 5-10 NRG Crystals detection in urine sediment by light microsco py NONE NRG Casts detection in urine sediment by light microscopy NONE NRG Mucus detection in urine sediment by light microscopy NEGATIVE NRG Complete urinalysis with reflex to culture NO NRG Complete blood count (CBC) with automate d white blood cell (WBC) differential - 08/27/17 07:25 Blood leukocytes automated count (number/volume) 10.4 10*3/uL 4.3-11.0 Blood erythrocytes automated count (number/volume) 4.76 10*6/uL 4.35-5.85 Venous blood hemoglobin measurement (mass/volume) 14.7 g/dL 11.5-16.0 Blood hematocrit (volume fraction) 44 % 35-52 Automated erythrocyte mean corpuscular volume 92 [ foz_us] 80-99 Automated erythrocyte mean corpuscular h emoglobin (mass per erythrocyte) 31 pg 25-34 Automated erythrocyte mean corpuscular h emoglobin concentration measurement (mass/volume) 34 g/dL 32-36 Automated erythrocyte distribution width ratio 12. 7 % 10.0- 14.5 Automated blood platelet count (count/volume) 167 10*3/uL [...] 10*3 1.0-4.0 Blood monocytes automated count (number/volume) 0. 7 10*3 0.0-1.0 Automated eosinophil count 0.4 10*3/uL 0 .0-0.3 Automated blood basophil count (count/volume) 0.1 10*3/uL 0.0-0.1 Comprehensive metabolic panel - 08/27/17 07:25 Serum or plasma sodium measurement (moles/volume) 140 mmol/L 135-145 Serum or plasma potassium measurement (moles/volume) 4.0 mmol/L 3.6-5.0 Serum or plasma chloride measurement (moles/volume) 106 mmol/L 98-107 Carbon dioxide 24 mmol/L 21-32 Serum or plasma anion gap determination (moles/volume) 10 mmol/L 5-14 Serum or plasma urea nitrogen measurement (mass/volume ) 11 mg/dL 7-18 Serum or plasma creatinine measurement (mass/volume) 0.62 mg/dL 0.60-1.30 Serum or plasma urea nitrogen/creatinine mass ratio 18 NRG Serum or plasma creatinine measurement w ith calculation of estimated glomerular filtration rate > NRG Serum or plasma glucose measurement (mass/volume) 157 mg/dL 70-105 Serum or plasma calcium measurement (mass/volume) 9.5 mg/dL 8.5-10.1 Serum or plasma total bilirubin measurement (mass/volu me) 0.7 mg/dL 0.1-1.0 Serum or plasma alkaline phosphatase santi surement (enzymatic activity/volume) 108 U/L 40-136 Serum or plasma aspartate aminotransfera se measurement (enzymatic activity/volume) 13 U/L 5-34 Serum or plasma alanine aminotransferase measurement (enzymatic activity/volume) 10 U/L 0-55 Serum or plasma protein measurement (mass/volume) 6.1 g/dL 6.4-8.2 Serum or plasma albumin measurement (mass/volume) 4.0 g/dL 3.2-4.5 Complete blood count (CBC) with automate d white blood cell (WBC) differential - 08/28/17 12:40 Blood leukocytes automated count (number/volume) 8.5 10*3/uL 4.3-11.0 Blood erythrocytes automated count (number/volume) 4.64 10*6/uL 4.35-5.85 Venous blood hemoglobin measurement (mass/volume) 14.3 g/dL 11.5-16.0 Blood hematocrit (volume fraction) 43 % 35-52 Automated erythrocyte mean corpuscular volume 92 [ foz_us] 80-99 Automated erythrocyte mean corpuscular h emoglobin (mass per erythrocyte) 31 pg 25-34 Automated erythrocyte mean corpuscular h emoglobin concentration measurement (mass/volume) 34 g/dL 32-36 Automated erythrocyte distribution width ratio 12. 7 % 10.0- 14.5 Automated blood platelet count (count/volume) 161 10*3/uL [...] 10*3 1.0-4.0 Blood monocytes automated count (number/volume) 0. 6 10*3 0.0-1.0 Automated eosinophil count 0.2 10*3/uL 0 .0-0.3 Automated blood basophil count (count/volume) 0.0 10*3/uL 0.0-0.1 Complete urinalysis with reflex to cultu re - 08/28/17 12:40 Urine color determination YELLOW NRG Urine clarity determination CLEAR NR G Urine pH measurement by test strip 5 5-9 Specific gravity of urine by test strip 1.025 1.016-1.022 Urine protein assay by test strip, semi-quantitative 1+ NEGATIVE Urine glucose detection by automated test strip NE GATIVE NEGATIVE Erythrocytes detection in urine sediment by light micr oscopy 1+ NEGATIVE Urine ketones detection by automated test strip NE GATIVE NEGATIVE Urine nitrite detection by test strip NEGATIVE NEGATIVE Urine total bilirubin detection by test strip 1+ NEGATIVE Urine urobilinogen measurement by automated test strip (mass/volume) 1 mg/dL NORMAL Urine leukocyte esterase detection by dipstick 1+ NEGATIVE Automated urine sediment erythrocyte cou nt by microscopy (number/high power field) [HPF] NRG Automated urine sediment leukocyte count by microscopy (number/high power field) [HPF] NRG Bacteria detection in urine sediment by light microsco py TRACE NRG Squamous epithelial cells detection in u rine sediment by light microscopy 2-5 NRG Crystals detection in urine sediment by light microsco py NONE NRG Casts detection in urine sediment [...] 5-14 Serum or plasma urea nitrogen measurement (mass/volume ) 14 mg/dL 7-18 Serum or plasma creatinine measurement (mass/volume) 0.66 mg/dL 0.60-1.30 Serum or plasma urea nitrogen/creatinine mass ratio 21 NRG Serum or plasma creatinine measurement w ith calculation of estimated glomerular filtration rate > NRG Serum or plasma glucose measurement (mass/volume) 146 mg/dL 70-105 Serum or plasma calcium measurement (mass/volume) 9.4 mg/dL 8.5-10.1 Serum or plasma total bilirubin measurement (mass/volu me) 0.6 mg/dL 0.1-1.0 Serum or plasma alkaline phosphatase santi surement (enzymatic activity/volume) 100 U/L 40-136 Serum or plasma aspartate aminotransfera se measurement (enzymatic activity/volume) 14 U/L 5-34 Serum or plasma alanine aminotransferase measurement (enzymatic activity/volume) 12 U/L 0-55 Serum or plasma protein measurement (mass/volume) 7.0 g/dL 6.4-8.2 Serum or plasma albumin measurement (mass/volume) 3.8 g/dL 3.2-4.5 Fibrin D-dimer FEU measurement in platel et poor plasma (mass/volume) - 08/28/17 12:40 Fibrin D-dimer FEU measurement in platelet poor plasma (mass/volume) 0.49 ug/mL 0.00-0.49 Serum or plasma C reactive protein measu rement (mass/volume) - 08/28/17 12:40 Serum or plasma C reactive protein measurement (mass/v olume) 0.78 mg/dL 0.00-0.50 Comprehensive metabolic panel - 09/24/17 08:21 Serum or plasma sodium measurement (moles/volume) 142 mmol/L 135-145 Serum or plasma potassium measurement (moles/volume) 3.9 mmol/L 3.6-5.0 Serum or plasma chloride measurement (moles/volume) 106 mmol/L 98-107 Carbon dioxide 27 mmol/L 21-32 Serum or plasma anion gap determination (moles/volume) 9 mmol/L 5-14 Serum or plasma urea nitrogen measurement (mass/volume ) 15 mg/dL 7-18 Serum or plasma creatinine measurement (mass/volume) 0.64 mg/dL 0.60-1.30 Serum or plasma urea nitrogen/creatinine mass ratio 23 NRG Serum or plasma creatinine measurement w ith calculation of estimated glomerular filtration rate > NRG Serum or plasma glucose measurement (mass/volume) 136 mg/dL 70-105 Serum or plasma calcium measurement (mass/volume) 9.2 mg/dL 8.5-10.1 Serum or plasma total bilirubin measurement (mass/volu me) 0.4 mg/dL 0.1-1.0 Serum or plasma alkaline phosphatase santi surement (enzymatic activity/volume) 110 U/L 40-136 Serum or plasma aspartate aminotransfera se measurement (enzymatic activity/volume) 18 U/L 5-34 Serum or plasma alanine aminotransferase measurement (enzymatic activity/volume) 13 U/L 0-55 Serum or plasma protein measurement (mass/volume) 7.3 g/dL 6.4-8.2 Serum or plasma albumin measurement (mass/volume) 3.8 g/dL 3.2-4.5 CULTURE, GENITAL - 10/28/17 17:16 CULTURE, GENITAL SEE NOTE NR SUREPATH PAP RFX HPV mRNA E6/E7 - 17:16 CLINICAL INFORMATION: NRG LMP: AGE 55 NRG PREV. PAP: UNKNOWN NRG PREV. BX: NRG SOURCE: Cervix NRG STATEMENT OF ADEQUACY: NR INTERPRETATION/RESULT: NR ROLL ICER MACHINE: NRG INFECTION: NRG MICROALBUMIN/CREATININE RATIO, URINE - 0 12/28/17 17:17 CREATININE, RANDOM URINE 121 mg/dL 20-32 0 MICROALBUMIN 1.6 mg/dL See Note: MICROALBUMIN/CREATININE RATIO, RANDOM URINE 13 mcg /mg creat <30 CBC - 03/03/18 10:13 WHITE BLOOD CELL COUNT 8.3 Thousand/uL 3 .8-10.8 RED BLOOD CELL COUNT 4.74 Million/uL 3.8 0-5.10 HEMOGLOBIN 14.8 g/dL 11.7-15.5 HEMATOCRIT 44.4 % 35.0-45.0 MCV 93.7 fL 80.0-100.0 MCH 31.2 pg 27.0-33.0 MCHC 33.3 g/dL 32.0-36.0 RDW 12.6 % 11.0-15.0 PLATELET COUNT 164 Thousand/uL 140-400 MPV 10.0 fL 7.5-12.5 ABSOLUTE NEUTROPHILS 5254 cells/uL 1500- 7800 ABSOLUTE LYMPHOCYTES 2150 cells/uL 850-3 900 ABSOLUTE MONOCYTES 581 cells/uL 200-950 ABSOLUTE EOSINOPHILS 249 cells/uL 15-500 ABSOLUTE BASOPHILS 66 cells/uL 0-200 NEUTROPHILS 63.3 % NRG LYMPHOCYTES 25.9 % NRG MONOCYTES 7.0 % NRG EOSINOPHILS 3.0 % NRG BASOPHILS 0.8 % NRG THYROID ANALYZER - 03/03/18 10:13 TSH 0.59 mIU/L 0.40-4.50 Complete blood count (CBC) with automate d white blood cell (WBC) differential - 04/11/18 22:12 Blood leukocytes automated count (number/volume) 9.4 10*3/uL 4.3-11.0 Blood erythrocytes automated count (number/volume) 4.64 10*6/uL 4.35-5.85 Venous blood hemoglobin measurement (mass/volume) 14.7 g/dL 11.5-16.0 Blood hematocrit (volume fraction) 44 % 35-52 Automated erythrocyte mean corpuscular volume 94 [ foz_us] 80-99 Automated erythrocyte mean corpuscular h emoglobin (mass per erythrocyte) 32 pg 25-34 Automated erythrocyte mean corpuscular h emoglobin concentration measurement (mass/volume) 34 g/dL 32-36 Automated erythrocyte distribution width ratio 13. 0 % 10.0- 14.5 Automated blood platelet count (count/volume) 189 10*3/uL [...] 10*3 1.0-4.0 Blood monocytes automated count (number/volume) 1. 0 10*3 0.0-1.0 Automated eosinophil count 0.2 10*3/uL 0 .0-0.3 Automated blood basophil count (count/volume) 0.1 10*3/uL 0.0-0.1 Whole blood basic metabolic panel - 03/19 03/04 22:12 Serum or plasma sodium measurement (moles/volume) 143 mmol/L 135-145 Serum or plasma potassium measurement (moles/volume) 3.9 mmol/L 3.6-5.0 Serum or plasma chloride measurement (moles/volume) 109 mmol/L 98-107 Carbon dioxide 21 mmol/L 21-32 Serum or plasma anion gap determination (moles/volume) 13 mmol/L 5-14 Serum or plasma urea nitrogen measurement (mass/volume ) 14 mg/dL 7-18 Serum or plasma creatinine measurement (mass/volume) 0.66 mg/dL 0.60-1.30 Serum or plasma urea nitrogen/creatinine mass ratio 21 NRG Serum or plasma creatinine measurement w ith calculation of estimated glomerular filtration rate > NRG Serum or plasma glucose measurement (mass/volume) 122 mg/dL 70-105 Serum or plasma calcium measurement (mass/volume) 9.8 mg/dL 8.5-10.1 Complete urinalysis with reflex to cultu re - 04/11/18 22:28 Urine color determination YELLOW NRG Urine clarity determination CLEAR NR G Urine pH measurement by test strip 5 5-9 Specific gravity of urine by test strip 1.030 1.016-1.022 Urine protein assay by test strip, semi-quantitative NEGATIVE NEGATIVE Urine glucose detection by automated test strip NE GATIVE NEGATIVE Erythrocytes detection in urine sediment by light micr oscopy 1+ NEGATIVE Urine ketones detection by automated test strip NE GATIVE NEGATIVE Urine nitrite detection by test strip NEGATIVE NEGATIVE Urine total bilirubin detection by test strip NEGA TIVE NEGATIVE Urine urobilinogen measurement by automated test strip (mass/volume) 1 mg/dL NORMAL Urine leukocyte esterase detection by dipstick NEG ATIVE NEGATIVE Automated urine sediment erythrocyte cou nt by microscopy (number/high power field) [HPF] NRG Automated urine sediment leukocyte count by microscopy (number/high power field) RARE NRG Bacteria detection in urine sediment by light microsco py TRACE NRG Squamous epithelial cells detection in u rine sediment by light microscopy 5-10 NRG Crystals detection in urine sediment by light microsco py PRESENT NRG Casts detection in urine sediment by light microscopy NONE NRG Mucus detection in urine sediment by light microscopy SMALL NRG Complete urinalysis with reflex to culture NO NRG Calcium oxalate crystals detection in ur ine sediment by light microscopy FEW NRG CMP - 04/14/18 10:29 GLUCOSE 159 mg/dL 65-99 UREA NITROGEN (BUN) 18 mg/dL 7-25 CREATININE 0.55 mg/dL 0.50-0.99 eGFR NON-AFR. ARGENTINE 100 mL/min/1.73m2 > OR = 60 eGFR 116 mL/min/1.73m2 > OR = 60 BUN/CREATININE RATIO NOT APPLICABLE (calc) 6-22 SODIUM 140 mmol/L 135-146 POTASSIUM 3.9 mmol/L 3.5-5.3 CHLORIDE 105 mmol/L 98-110 CARBON DIOXIDE 27 mmol/L 20-31 CALCIUM 9.0 mg/dL 8.6-10.4 PROTEIN, TOTAL 6.8 g/dL 6.1-8.1 ALBUMIN 4.0 g/dL 3.6-5.1 GLOBULIN 2.8 g/dL (calc) 1.9-3.7 ALBUMIN/GLOBULIN RATIO 1.4 (calc) 1.0-2. 5 BILIRUBIN, TOTAL 0.4 mg/dL 0.2-1.2 ALKALINE PHOSPHATASE 91 U/L 33-130 AST 14 U/L 10-35 ALT 12 U/L 6-29 CULTURE, URINE - 05/14/18 13:14 CULTURE, URINE, ROUTINE SEE NOTE NRG CBC - 05/16/18 17:05 WHITE BLOOD CELL COUNT 10.8 Thousand/uL 3.8-10.8 RED BLOOD CELL COUNT 4.83 Million/uL 3.8 0-5.10 HEMOGLOBIN 15.0 g/dL 11.7-15.5 HEMATOCRIT 44.7 % 35.0-45.0 MCV 92.5 fL 80.0-100.0 MCH 31.1 pg 27.0-33.0 MCHC 33.6 g/dL 32.0-36.0 RDW 12.1 % 11.0-15.0 PLATELET COUNT 112 Thousand/uL 140-400 MPV 10.7 fL 7.5-12.5 ABSOLUTE NEUTROPHILS 8240 cells/uL 1500- 7800 ABSOLUTE LYMPHOCYTES 1242 cells/uL 850-3 900 ABSOLUTE MONOCYTES 961 cells/uL 200-950 ABSOLUTE EOSINOPHILS 302 cells/uL 15-500 ABSOLUTE BASOPHILS 54 cells/uL 0-200 NEUTROPHILS 76.3 % NRG LYMPHOCYTES 11.5 % NRG MONOCYTES 8.9 % NRG EOSINOPHILS 2.8 % NRG BASOPHILS 0.5 % NRG PDM - 09 PANEL (PROFILE 1) - 08/11/18 14 :07 Creatinine 73.6 mg/dL > or = 20.0 pH 6.57 4.5 - 9.0 Oxidant NEGATIVE mcg/mL <200 Amphetamines NEGATIVE ng/mL <500 medMATCH Amphetamines CONSISTENT NRG Benzodiazepines NEGATIVE ng/mL <100 medMATCH Benzodiazepines CONSISTENT NRG Marijuana Metabolite NEGATIVE ng/mL <20 medMATCH Marijuana Metab CONSISTENT NRG Cocaine Metabolite NEGATIVE ng/mL <150 medMATCH Cocaine Metab CONSISTENT NRG Opiates NEGATIVE ng/mL <100 medMATCH Opiates CONSISTENT NRG Oxycodone POSITIVE ng/mL <100 COMMENT NRG Noroxycodone 547 ng/mL <50 medMATCH Noroxycodone INCONSISTENT NRG Oxycodone 165 ng/mL <50 medMATCH Oxycodone INCONSISTENT NRG Oxymorphone 245 ng/mL <50 medMATCH Oxymorphone INCONSISTENT NRG Barbiturates NEGATIVE ng/mL <300 medMATCH Barbiturates CONSISTENT NRG Methadone Metabolite NEGATIVE ng/mL <100 medMATCH Methadone Metab CONSISTENT NRG Phencyclidine NEGATIVE ng/mL <25 medMATCH Phencyclidine CONSISTENT NRG CBC w/MANUAL DIFF - 05/03/19 13:18 WHITE BLOOD CELL COUNT 8.4 Thousand/uL 3 .8-10.8 RED BLOOD CELL COUNT 4.62 Million/uL 3.8 0-5.10 HEMOGLOBIN 14.0 g/dL 11.7-15.5 HEMATOCRIT 42.1 % 35.0-45.0 MCV 91.1 fL 80.0-100.0 MCH 30.3 pg 27.0-33.0 MCHC 33.3 g/dL 32.0-36.0 RDW 12.7 % 11.0-15.0 PLATELET COUNT 170 Thousand/uL 140-400 MPV 10.1 fL 7.5-12.5 [facility] SPOTTED FEVER, IgG, IgM - 04/17 05/05 13:18 RMSF IGG NOT DETECTED NRG RMSF IGM NOT DETECTED NRG DIFFERENTIAL, MANUAL - 05/03/19 13:18 ABSOLUTE NEUTROPHILS 4032 cells/uL 1500- 7800 ABSOLUTE MONOCYTES 773 cells/uL 200-950 ABSOLUTE EOSINOPHILS 168 cells/uL 15-500 ABSOLUTE BASOPHILS 84 cells/uL 0-200 NEUTROPHILS 48.0 % NRG LYMPHOCYTES 36.7 % NRG MONOCYTES 9.2 % NRG EOSINOPHILS 2.0 % NRG BASOPHILS 1.0 % NRG ABSOLUTE BAND NEUTROPHILS 260 cells/uL 0 -750 ABSOLUTE LYMPHOCYTES 3083 cells/uL 850-3 900 BAND NEUTROPHILS 3.1 % NRG PLATELET ESTIMATION ADEQUATE ADEQUATE CBC MORPHOLOGY NORMAL [place] DISEASE, ANTIBODY PANEL - 13:21 LYME AB SCREEN <0.90 index NRG INTERPRETATION NRG A. PHAGOCYTOPHILUM AB (IGG) <1:64 NR G A. PHAGOCYTOPHILUM AB (IGM) <1:20 NR G INTERPRETATION NRG BABESIA DUNCANI (WA1) ANTIBODY (IGG), IFA <1:256 NRG BABESIA MICROTI AB (IGG) <1:64 titer NRG BABESIA MICROTI AB (IGM) <1:20 titer NRG INTERPRETATION NRG E. CHAFFEENSIS AB IGG <1:64 NRG E. CHAFFEENSIS AB IGM <1:20 NRG PDM - PAIN MGMT (PROFILE 3 WITH CONFIRMA TION) - 08/23/19 15:02 Prescribed Drug 1 Hydrocodone NRG Creatinine 106.7 mg/dL > or = 20.0 pH 7.6 4.5-9.0 Oxidant NEGATIVE mcg/mL <200 Amphetamines NEGATIVE ng/mL <500 medMATCH Amphetamines CONSISTENT NRG Benzodiazepines NEGATIVE ng/mL <100 medMATCH Benzodiazepines CONSISTENT NRG Marijuana Metabolite NEGATIVE ng/mL <20 medMATCH Marijuana Metab CONSISTENT NRG Cocaine Metabolite NEGATIVE ng/mL <150 medMATCH Cocaine Metab CONSISTENT NRG Opiates NEGATIVE ng/mL <100 medMATCH Opiates INCONSISTENT NRG Oxycodone POSITIVE ng/mL <100 COMMENT NRG Noroxycodone 1029 ng/mL <50 medMATCH Noroxycodone INCONSISTENT NRG Oxycodone NEGATIVE ng/mL <50 medMATCH Oxycodone CONSISTENT NRG Oxymorphone 188 ng/mL <50 medMATCH Oxymorphone INCONSISTENT NRG Complete blood count (CBC) with automate d white blood cell (WBC) differential - 09/07/19 03:45 Blood leukocytes automated count (number/volume) 10.6 10*3/uL 4.3-11.0 Blood erythrocytes automated count (number/volume) 4.91 10*6/uL 4.35-5.85 Venous blood hemoglobin measurement (mass/volume) 15.3 g/dL 11.5-16.0 Blood hematocrit (volume fraction) 45 % 35-52 Automated erythrocyte mean corpuscular volume 93 [ foz_us] 80-99 Automated erythrocyte mean corpuscular h emoglobin (mass per erythrocyte) 31 pg 25-34 Automated erythrocyte mean corpuscular h emoglobin concentration measurement (mass/volume) 34 g/dL 32-36 Automated erythrocyte distribution width ratio 13. 3 % 10.0- 14.5 Automated blood platelet count (count/volume) 174 10*3/uL 130-400 Automated blood platelet mean volume measurement 9.9 [foz_us] 7.4-10.4 Automated blood neutrophils/100 leukocytes 54 % 42-75 Automated blood lymphocytes/100 leukocytes 32 % 12-44 Blood monocytes/100 leukocytes 8 % 0-12 Automated blood eosinophils/100 leukocytes 5 % 0-10 Automated blood basophils/100 leukocytes 1 % 0-10 Blood neutrophils automated count (number/volume) 5.7 10*3 1.8-7.8 Blood lymphocytes automated count (number/volume) 3.4 10*3 1.0-4.0 Blood monocytes automated count (number/volume) 0. 9 10*3 0.0-1.0 Automated eosinophil count 0.6 10*3/uL 0 .0-0.3 Automated blood basophil count (count/volume) 0.1 10*3/uL 0.0-0.1 Comprehensive metabolic panel - 09/07/19 03:45 Serum or plasma sodium measurement (moles/volume) 140 mmol/L 135-145 Serum or plasma potassium measurement (moles/volume) 4.2 mmol/L 3.6-5.0 Serum or plasma chloride measurement (moles/volume) 104 mmol/L 98-107 Carbon dioxide 24 mmol/L 21-32 Serum or plasma anion gap determination (moles/volume) 12 mmol/L 5-14 Serum or plasma urea nitrogen measurement (mass/volume ) 25 mg/dL 7-18 Serum or plasma creatinine measurement (mass/volume) 0.83 mg/dL 0.60-1.30 Serum or plasma urea nitrogen/creatinine mass ratio 30 NRG Serum or plasma creatinine measurement w ith calculation of estimated glomerular filtration rate > NRG Serum or plasma glucose measurement (mass/volume) 91 mg/dL 70-105 Serum or plasma calcium measurement (mass/volume) 9.8 mg/dL 8.5-10.1 Serum or plasma total bilirubin measurement (mass/volu me) 0.3 mg/dL 0.1-1.0 Serum or plasma alkaline phosphatase santi surement (enzymatic activity/volume) 118 U/L 40-136 Serum or plasma aspartate aminotransfera se measurement (enzymatic activity/volume) 22 U/L 5-34 Serum or plasma alanine aminotransferase measurement (enzymatic activity/volume) 20 U/L 0-55 Serum or plasma protein measurement (mass/volume) 7.6 g/dL 6.4-8.2 Serum or plasma albumin measurement (mass/volume) 4.2 g/dL 3.2-4.5 CALCIUM CORRECTED 9.6 mg/dL 8.5-10.1 Serum or plasma C reactive protein measu rement (mass/volume) - 09/07/19 03:45 Serum or plasma C reactive protein measurement (mass/v olume) 0.48 mg/dL 0.00-0.50 Complete urinalysis with reflex to cultu re - 09/07/19 03:53 Urine color determination YELLOW NRG Urine clarity determination CLEAR NR G Urine pH measurement by test strip 6.0 5-9 Specific gravity of urine by test strip 1.020 1.016-1.022 Urine protein assay by test strip, semi-quantitative NEGATIVE NEGATIVE Urine glucose detection by automated test strip NE GATIVE NEGATIVE Erythrocytes detection in urine sediment by light micr oscopy TRACE-I NEGATIVE Urine ketones detection by automated test strip NE GATIVE NEGATIVE Urine nitrite detection by test strip NEGATIVE NEGATIVE Urine total bilirubin detection by test strip NEGA TIVE NEGATIVE Urine urobilinogen measurement by automated test strip (mass/volume) 0.2 mg/dL < = 1.0 Urine leukocyte esterase detection by dipstick NEG ATIVE NEGATIVE Automated urine sediment erythrocyte cou nt by microscopy (number/high power field) [HPF] NRG Automated urine sediment leukocyte count by microscopy (number/high power field) [HPF] NRG Bacteria detection in urine sediment by light microsco py TRACE NRG Squamous epithelial cells detection in u rine sediment by light microscopy 10-25 NRG Crystals detection in urine sediment by light microsco py NONE NRG Casts detection in urine sediment by light microscopy NONE NRG Mucus detection in urine sediment by light microscopy SMALL NRG Complete urinalysis with reflex to culture NO NRG CMP - 10/17/19 10:16 GLUCOSE 104 mg/dL 65-99 UREA NITROGEN (BUN) 17 mg/dL 7-25 CREATININE 0.86 mg/dL 0.50-0.99 eGFR NON-AFR. ARGENTINE 71 mL/min/1.73m2 > OR = 60 eGFR 83 mL/min/1.73m2 > OR = 60 BUN/CREATININE RATIO NOT APPLICABLE (calc) 6-22 SODIUM 142 mmol/L 135-146 POTASSIUM 4.4 mmol/L 3.5-5.3 CHLORIDE 105 mmol/L 98-110 CARBON DIOXIDE 32 mmol/L 20-32 CALCIUM 9.5 mg/dL 8.6-10.4 PROTEIN, TOTAL 7.1 g/dL 6.1-8.1 ALBUMIN 3.9 g/dL 3.6-5.1 GLOBULIN 3.2 g/dL (calc) 1.9-3.7 ALBUMIN/GLOBULIN RATIO 1.2 (calc) 1.0-2. 5 BILIRUBIN, TOTAL 0.4 mg/dL 0.2-1.2 ALKALINE PHOSPHATASE 97 U/L 33-130 AST 15 U/L 10-35 ALT 12 U/L 6-29 SUREPATH PAP AND HPV mRNA E6/E7 - 17:46 CLINICAL INFORMATION: NRG LMP: NRG PREV. PAP: 10/28/2017 NRG PREV. BX: NRG SOURCE: NRG STATEMENT OF ADEQUACY: NRG INTERPRETATION/RESULT: NRG ROLL ICER MACHINE: NRG HPV mRNA E6/E7, SUREPATH VIAL Not Detected NOT DETECTED COMMENT NRG Encounters ACCT No. Visit Date/Time Discharge Status Pt. Type Provider Facility Loc./Unit Complaint [id number] 06/08/2014 07:15:00 06/08/2014 10:40 :00 DIS Inpatient DAI CEDILLO [facility] OPS [id number] 12/28/2019 15:00:00 12/28/2019 23:59:5 9 CLS Outpatient ROSA SNELL [facility] [id number] 12/28/2019 15:00:00 Document Registration [id number] 10/17/2019 09:00:00 Document Registration [id number] 08/23/2019 14:20:00 Document Registration [id number] 05/03/2019 10:40:00 Document Registration [id number] 08/11/2018 12:00:00 Document Registration [id number] 05/16/2018 16:20:00 Document Registration [id number] 05/14/2018 12:25:00 Document Registration [id number] 04/14/2018 09:20:00 Document Registration [id number] 03/03/2018 10:00:00 Document Registration [id number] 12/28/2017 16:00:00 Document Registration [id number] 10/28/2017 15:40:00 Document Registration [id number] 11/13/2019 14:21:00 14:39:00 DIS [facility]ICULO [facility]ORIAH [id number] 09/07/2019 03:36:00 05:36:00 DIS Outpatient KADIE EDWARDS MD Via [facility] ER PAIN IN RT SIDE [id number] 08/31/2019 09:48:00 23:59:59 CLS Outpatient ROSA SNELL [employer] [facility] RAD LUMBAR BACK PAIN [id number] 05/31/2019 12:54:00 23:59:59 CLS Outpatient ARLIN PRICE [employer] [facility] RAD BREAST PAIN, LE FT [id number] 04/14/2019 13:21:00 14:27:00 DIS Outpatient ROSA SNELL [employer] [facility] REHAB CERV STENOSIS OF SPINAL CANAL; UE WEAKNESS FOLLOWI [id number] 01/16/2019 08:52:00 23:59:59 CLS Outpatient ROSA SNELL [employer] [facility] RAD SCREENING [id number] 12/12/2018 09:34:00 23:59:59 CLS Outpatient KERRY PETERS [facility] RAD Z48.89 [id number] 11/22/2018 12:41:00 23:59:59 CLS Outpatient ROSA SNELL [employer] [facility] RAD PAIN SYNDROME G89.4 [id number] 11/04/2018 15:34:00 23:59:59 CLS Outpatient ROSA SNELL [employer] [facility] RAD RETROLISTHESIS [id number] 09/15/2018 10:52:00 13:54:00 DIS Emergency TRAVIS CANDELARIA [employer] [facility] ER HEAD/NECK PAIN [id number] 07/19/2018 10:46:00 23:59:59 CLS Outpatient PRISCILLA BLANCAS [employer] [facility] RAD OSTEOARTHRITIS [id number] 05/01/2018 17:14:00 21:00:00 DIS Emergency GRACE MOISE, KADIE Torres [facility] ER CERVICAL PAIN, TONGUE NUMB, LIPS NUMB [id number] 04/21/2018 09:16:00 018 23:59:59 CLS Outpatient PRISCILLA BLANCAS [employer] [facility] RAD RENAL CARCINOMA OF LEFT KIDNEY [id number] 04/11/2018 20:59:00 018 23:02:00 DIS Emergency TRAVIS CANDELARIA [employer] [facility] ER KIDNEY CANCER, PAIN [id number] 12/15/2017 10:13:00 018 23:59:59 CLS Preadmit PRISCILLA BLANCAS [employer] [facility] REHAB LUMBAGO WITH SCIATICA [id number] 12/12/2017 10:28:00 018 13:57:00 DIS Emergency VALENTINE MOISE, KHURRAM Caba [facility] ER FALL/L KNEE INJ [id number] 11/23/2017 13:18:00 018 23:59:59 CLS Preadmit VIANEY MOISE, TAMY garcia [facility] RAD N28.89 LEFT RENAL MASS [id number] 11/03/2017 09:12:00 01/17/2 018 23:59:59 CLS Outpatient BLANCAS, PRISCILLA R [employer] [facility] RAD SCREENING [id number] 09/29/2017 08:35:00 017 23:59:59 CLS Outpatient PRISCILLA BLANCAS [employer] [facility] RAD RIGHT RENAL MAS S N28.89 [id number] 09/27/2017 08:41:00 017 23:59:59 CLS Outpatient PRISCILLA BLANCAS [employer] [facility] RAD RT RENAL MASS [id number] 09/24/2017 08:07:00 017 23:59:59 CLS Outpatient PRISCILLA BLANCAS [employer] [facility] RAD R91.1 PULMONARY NODULE [id number] 09/22/2017 14:17:00 017 23:59:59 CLS Preadmit PRISCILLA BLANCAS APRN [facility] REHAB NECK PAIN [id number] 09/03/2017 13:04:00 017 23:59:59 CLS Preadmit PRISCILLA BLANCAS [employer] [facility] RAD RETROLISTHESIS OF VERTE LEIGH [id number] 08/28/2017 12:05:00 017 15:17:00 DIS Emergency KADIE EDWARDS MD [facility] ER R SIDE PAIN, EX TREME DIZZINESS [id number] 08/27/2017 07:00:00 09:46:00 DIS Emergency RICHIE BENTLEY MD [facility] ER RT SIDE PAIN [id number] 08/18/2017 12:03:00 017 15:35:00 DIS Outpatient MARGUERITE WAITE MD [facility] ENDO HX ULCERS AND POLYPS [id number] 08/16/2017 05:55:00 017 14:21:00 DIS Outpatient MARGUERITE WAITE MD [facility] PREOP COLO/EGD [id number] 07/14/2017 09:30:00 Paloma 23:59:59 CLS Preadmit MARGUERITE WAITE MD [facility] ENDO HISTORY OF ULCERS AND P OLYPS [id number] 07/12/2017 08:30:00 017 08:30:00 CAN MARGUERITE Montes MD [facility] PREOP EGD/COLONOSCOPY [id number] 05/18/2017 07:11:00 017 14:25:00 DIS Outpatient LINDEN MOISE FACTabby, DASIA CHACON CC DS [facility] CATH CAD,SOB,FAT IGUE [id number] 05/13/2017 14:16:00 017 23:59:59 CLS Outpatient FOREIGN HORAN [facility] LAB E11.9 [id number] 05/05/2017 09:30:00 017 23:59:59 CLS Preadmit MARGUERITE WAITE MD [facility] ENDO HISTORY ULCER/HISTORY P OLYPS [id number] 05/03/2017 05:40:00 017 23:59:59 CLS Outpatient MARGUERITE WAITE MD [facility] PREOP COLONOSCOPY, EGD [id number] 04/29/2017 07:08:00 017 23:59:59 CLS Outpatient FOREIGN HORAN [facility] CARD CAD [id number] 05/27/2015 08:41:00 015 23:59:59 CLS Outpatient WESTON ALCANTAR MD [facility] RAD RENAL MASS FOLLOWUP F ROM PET [id number] 05/21/2015 07:48:00 015 23:59:59 CLS Outpatient WESTON ALCANTAR MD [facility] RAD ABDOMINAL PAIN LESION O N KIDNEY [id number] 04/11/2013 10:56:00 013 23:59:59 CLS Outpatient LINDEN MOISE FACTabby, DASIA CHACON CC DS [facility] LAB HYPERLIPADE JUAN [id number] 05/27/2015 08:41:00 Document Registration [id number] 05/27/2015 08:41:00 Document Registration [id number] 05/02/2012 10:54:00 Document Registration [id number] 07/21/2011 12:18:00 Document Registration [id number] 06/18/2011 10:41:00 Document Registration [id number] 06/04/2011 10:33:00 Document Registration [id number] 06/02/2011 08:14:00 Document Registration [id number] 05/26/2011 11:00:00 Document Registration [id number] 03/03/2011 05:36:00 Document Registration [id number] 02/24/2011 08:35:00 Document Registration [id number] 06/17/2010 05:35:00 Document Registration
--- NOTE | 2020-01-21 19:41 | ED Trauma-Multisystem ---
General Chief Complaint: Trauma-Non Activation Stated Complaint: FALL/R SHOULDER PAIN Nursing Triage Note: brought in by [facility],c/o fall from standing position, reports "tripping over her own feet". c/o right anterior shoulder, right face, right elbow, right neck pain. denies loc. History of Present Illness Date Seen by Provider: Jan 21, 2020 Time Seen by Provider: 19:00 Initial Comments 65 year old female, tripped and fell, causing pain to her head, neck, right shoulder and elbow. No LOC. Brought by EMS. She was given fentanyl 100 g IV. Location Injury Occurred: home Occurred: Just Prior to Arrival, This Evening Allergies and Home Medications Allergies Coded Allergies: ketorolac (Verified Allergy, Intermediate, 08/27/17) doxycycline (Unverified Allergy, Unknown, 08/16/17) hydrocodone (Unverified Allergy, Unknown, 08/16/17) piroxicam (Unverified Allergy, Unknown, 08/16/17) Home Medications Aspirin 81 Mg Tab.chew, 81 MG PO DAILY, (Reported) Atorvastatin Calcium 10 Mg Tablet, 10 MG PO HS, (Reported) Metoprolol Tartrate 100 Mg Tablet, 100 MG PO BID, (Reported) [place]-3/Dha/Epa/Fish Oil 1 Each Capsule, 1 EACH PO BID, (Reported) Oxycodone HCl 5 Mg Tablet, 5 MG PO Q4H PRN for PAIN-SEVERE TO BREAKTHROUGH Prescribed by: TRAVIS CANDELARIA on 09/15/18 1323 Oxycodone HCl/Acetaminophen 1 Each Tablet, 1 TAB PO TID PRN for PAIN-MODERATE, (Reported) Pantoprazole Sodium 40 Mg Tablet.dr, 40 MG PO DAILY, (Reported) Pioglitazone HCl/Metformin HCl 1 Each Tablet, 0.5 TAB PO BID, (Reported) Prednisone 20 Mg Tab, 40 MG PO DAILY Prescribed by: KADIE EDWARDS on 05/01/182049 Prednisone 20 Mg Tab, 40 MG PO DAILY Prescribed by: KADIE EDWARDS on 09/07/19 0451 Sitagliptin Phosphate 100 Mg Tablet, 100 MG PO DAILY, (Reported) Sucralfate 1 Gm Tablet, 1 GM PO ACHS, (Reported) Tramadol HCl 50 Mg Tablet, 50 MG PO 4 TIMES A DAY Prescribed by: RICHIE BENTLEY on 08/27/17 0965 Patient Home Medication List Home Medication List Reviewed: Yes Review of Systems Review of Systems Constitutional: no symptoms reported, see HPI Musculoskeletal: see HPI, joint pain (right shoulder and elbow), neck pain All Other Systems Reviewed Negative Unless Noted: Yes Past Vqwxkjd-Eqilba-Ehggfe Hx Past Med/Social Hx: Reviewed Nursing Past Med/Soc Hx Patient Social History Alcohol Use: Denies Use Recreational Drug Use: No Smoking Status: Former Smoker Type Used: Cigarettes Former Smoker, Quit: Oct 18, 2015 Recent Foreign Travel: No Contact w/Someone Who Travel: No Recent Infectious Disease Expo: No Recent Hopitalizations: No Physical Abuse: No Sexual Abuse: No Mistreated: No Fear: No Immunizations Up To Date Tetanus Booster (TDap): Unknown Date of Pneumonia Vaccine: May 18, 2012 Seasonal Allergies Seasonal Allergies: Yes (MILD) Past Medical History Surgeries: Yes (LT SHOULDER x2, LT OOPHORECTOMY, BILAT CTR, RT KNEE SCOPE x2, Lt kidney rem) Section, Gallbladder, Tubal Ligation Respiratory: Yes ("NODULES IN MY LUNGS") Cardiac: Yes (HEART CATH-NO STENTS, [place] x3) Heart Attack, High Cholesterol, Irregular Heartbeat Neurological: Yes (LOZADA'S PALSY LEFT SIDE OF FACE x2) : No Reproductive Disorders: No 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 Sexually Transmitted Disease: No HIV/AIDS: No Genitourinary: Yes (left nephrectomy) Kidney Stones Gastrointestinal: Yes Colitis, Gastroesophageal Reflux, Chronic Diarrhea, Ulcer Musculoskeletal: Yes Degenerate Disk Disease, Arthritis, Chronic Back Pain Endocrine: Yes Diabetes, Non-Insulin dep Loss of Vision: Bilateral Hearing Impairment: Denies Cancer: Yes Kidney What Type of Treatment Did You: Surgical Intervention Psychosocial: Yes (MILD-RELATED TO LOSS OF ) Anxiety, Depression Integumentary: No Blood Disorders: No Adverse Reaction/Blood Tranf: No Family Medical History No Pertinent Family Hx Physical Exam Vital Signs Vital Signs - First Documented 01/21/20 18:57 Temp 36.8 Pulse 63 Resp 18 B/P (MAP) 200/83 (122) Pulse Ox 96 O2 Delivery Room Air Height, Weight, BMI Height: 5'8.00" Weight: 205lbs. 0.0oz. 92.106172kx; 28.00 BMI Method:Stated General Appearance: No Apparent Distress, WD/WN Head: No Evidence of Injury, Ecchymosis Eyes: Bilateral Eye Normal Inspection, Bilateral Eye PERRL, Bilateral Eye EOMI Ears, Nose, Throat: Hearing Grossly Normal, No Evidence of ENT Injury, No Dental Injury Neck: Normal Inspection, Limited Range of Motion, Tender Lateral (right) Cardiovascular: Regular Rate, Rhythm, No Edema, No Murmur, Normal Peripheral Pulses Respiratory: Chest Non Tender, Lungs Clear, Normal Breath Sounds Gastrointestinal: Normal Bowel Sounds, Non Tender, Soft Back: Normal Inspection, No CVA Tenderness, No Vertebral Tenderness Extremity: Normal Capillary Refill, Normal Range of Motion (except right shoulder), Non Tender Neurologic/Psychiatric: Alert, Oriented x3, No Motor/Sensory Deficits, Normal Mood/Affect Skin: Normal Color, Warm/Dry Jane Coma Score Best Eye Response ([place]): (4) Open Spontaneously Best Verbal Response ([place]): (5) Oriented Best Motor Response ([place]): (6) Obeys Commands [place] Total: 15 Progress/Results/Core Measures Results/Orders Vital Signs/I&O 01/21/20 18:57 Temp 36.8 Pulse 63 Resp 18 B/P (MAP) 200/83 (122) Pulse Ox 96 O2 Delivery Room Air Blood Pressure Mean: 122 Progress Progress Note : Time: 19:00 Progress Note Patient seen and evaluated, will obtain CT of the head and neck, x-ray of the r ight humerus and elbow, chest x-ray. Patient reports pain tolerable since receiving pain medicine via EMS. 1949 shoulder sling/immobilizer applied to right upper extremity. Patient tolerating pain. No complaints at this time. 2029 x-ray results reviewed with patient, discharge instructions and return precautions reviewed with the patient. Diagnostic Imaging Diagonstic Imaging: CT Comments NAME: CRISTHIAN MARSH [facility] REC#: [id number] PT STATUS: REG ER : 1955 PHYSICIAN: KADIE EDWARDS MD ADMIT DATE: 01/21/20/ER Draft Date of Exam:01/21/20 CT HEAD/CERVICAL SPINE WO PROCEDURE: CT head and CT cervical spine without contrast. TECHNIQUE: Multiple contiguous axial images were obtained through the brain and cervical spine without the use of intravenous contrast. Sagittal and coronal reformations through the cervical spine were then performed. Auto Exposure Controls were utilized during the CT exam to meet ALARA standards for radiation dose reduction. INDICATION: Fall from standing. Pain in the neck and head. Comparison with CT head and C-spine of 05/01/2018. FINDINGS: CT HEAD: There is no evidence of intracranial hemorrhage. Ventricles and cortical gyral pattern are normal. No mass effect. No extra-axial fluid collection. Basal cisterns are clear. Mastoid air cells are clear. There is mild mucosal thickening in the right maxillary antrum. No evidence of calvarial fractures. IMPRESSION: 1. No acute intracranial abnormalities. CT cervical spine: Sagittal and coronal reformatted images show fusion of C4-C7. Anterior hardware is in place without evidence of hardware fracture or loosening. There is moderate stenosis at C7-T1 due to hypertrophic bony changes along the endplates. The odontoid is in good alignment. No evidence of odontoid fracture. Soft tissues are not swollen. IMPRESSION: 1. Postsurgical changes with fusion C4-C7. No evidence of hardware complication. 2. Moderate spinal stenosis at C7-T1. No acute abnormalities. Dictated on workstation # [id number] Dict: 01/21/201934 Trans: 01/21/201943 [facility] [phone] Interpreted by: RAMAN VOGT MD Electronically signed by: Reviewed: Reviewed by Wy Diagonstic Imaging: Xray Plain Films/CT/US/NM/MRI: other (right humerus) Comments NAME: CRISTHIAN MARSH [facility] REC#: [id number] PT STATUS: REG ER : 1955 PHYSICIAN: KADIE EDWARDS MD ADMIT DATE: 01/21/20/ER Draft Date of Exam:01/21/20 HUMERUS, RIGHT, 2 VIEWS INDICATION: Fall. Right shoulder pain. EXAMINATION: Two views of the right humerus. FINDINGS: There is a comminuted humeral neck and tuberosity fracture of the humeral head. There does appear to be some inferior subluxation humeral head with respect to the glenoid, now with widening of the space between humeral head and acromion. No definite glenoid fracture is demonstrated. IMPRESSION: Comminuted fracture of humeral head and neck with inferior subluxation of the head. Dictated on workstation # [id number] Dict: 01/21/201946 Trans: 01/21/201950 [facility] [phone] Interpreted by: RAMAN VOGT MD Electronically signed by: Reviewed: Reviewed by Wy Diagonstic Imaging: Xray Plain Films/CT/US/NM/MRI: chest Comments NAME: CRISTHIAN MARSH [facility] REC#: [id number] PT STATUS: REG ER : 1955 PHYSICIAN: KADIE EDWARDS MD ADMIT DATE: 01/21/20/ER Draft Date of Exam:01/21/20 CHEST 1 VIEW, AP/PA ONLY INDICATION: Fall. Right shoulder pain. FINDINGS: Portable chest. The lungs are well-aerated and clear. No pneumothorax or pleural effusion. Heart is not enlarged. No evidence of rib fractures. IMPRESSION: Negative portable chest. See humerus report for right shoulder. Dictated on workstation # [id number] Dict: 01/21/201945 Trans: 01/21/[address] [place] [address] [phone] Interpreted by: RAMAN VOGT MD Electronically signed by: Reviewed: Reviewed by Wy Diagonstic Imaging: Xray Plain Films/CT/US/NM/MRI: other (elbow) Comments NAME: CRISTHIAN MARSH [facility] REC#: [id number] PT STATUS: REG ER : 1955 PHYSICIAN: KADIE EDWARDS MD ADMIT DATE: 01/21/20/ER Draft Date of Exam:01/21/20 ELBOW, RIGHT, 3 VIEWS INDICATION: Fall. Right elbow pain. EXAMINATION: Three views of the right elbow. FINDINGS: A true lateral view was not obtained due to humeral neck fracture. No fracture or dislocation of the elbow are demonstrated. Joint effusion cannot be excluded due to the limited imaging. IMPRESSION: Limited images of the right elbow with no fracture demonstrated. Dictated on workstation # [id number] Dict: 01/21/201947 Trans: 01/21/201951 [facility] [phone] Interpreted by: RAMAN VOGT MD Electronically signed by: Departure Impression Primary Impression: Fall Qualified Codes: W19.XXXA - Unspecified fall, initial encounter Additional Impressions: Proximal humerus fracture Qualified Codes: S42.291A - Other displaced fracture of upper end of right humerus, initial encounter for closed fracture Shoulder subluxation, right Qualified Codes: S43.001A - Unspecified subluxation of right shoulder joint, initial encounter Disposition: 01 HOME, SELF-CARE Condition: Stable Departure-Patient Inst. Decision time for Depature: 20:30 Referrals: SARTHAK COELLO MD (PCP) Primary Care Physician Patient Instructions: Shoulder Fracture (DC) Add. Discharge Instructions: Ice pack to right shoulder 20 minutes every 2 hours. Keep right arm in the sling/immobilizer at all times. My remove for 5-10 min to complete Range of Motion to elbow/wrist/hand. Call Dr. Velazco office for follow-up appointment this week. Take CD to appt. Use your oxycodone 1-2 tablets every 6-8 hours as needed for pain. Return to the emergency department for new, urgent health care needs. All discharge instructions reviewed with patient and/or family. Voiced understanding. KHOA FRANCO Jan 21, 2020 19:41
--- NOTE | 2020-01-21 19:46 | Diagnostic Imaging Report ---
PROCEDURE: CT head and CT cervical spine without contrast. TECHNIQUE: Multiple contiguous axial images were obtained through the brain and cervical spine without the use of intravenous contrast. Sagittal and coronal reformations through the cervical spine were then performed. Auto Exposure Controls were utilized during the CT exam to meet ALARA standards for radiation dose reduction. INDICATION: Fall from standing. Pain in the neck and head. Comparison with CT head and C-spine of 05/01/2018. FINDINGS: CT HEAD: There is no evidence of intracranial hemorrhage. Ventricles and cortical gyral pattern are normal. No mass effect. No extra-axial fluid collection. Basal cisterns are clear. Mastoid air cells are clear. There is mild mucosal thickening in the right maxillary antrum. No evidence of calvarial fractures. IMPRESSION: 1. No acute intracranial abnormalities. CT cervical spine: Sagittal and coronal reformatted images show fusion of C4-C7. Anterior hardware is in place without evidence of hardware fracture or loosening. There is moderate stenosis at C7-T1 due to hypertrophic bony changes along the endplates. The odontoid is in good alignment. No evidence of odontoid fracture. Soft tissues are not swollen. IMPRESSION: 1. Postsurgical changes with fusion C4-C7. No evidence of hardware complication. 2. Moderate spinal stenosis at C7-T1. No acute abnormalities. Dictated by: Dictated on workstation # [id number]
--- NOTE | 2020-01-21 19:51 | Diagnostic Imaging Report ---
INDICATION: Fall. Right shoulder pain. FINDINGS: Portable chest. The lungs are well-aerated and clear. No pneumothorax or pleural effusion. Heart is not enlarged. No evidence of rib fractures. IMPRESSION: Negative portable chest. See humerus report for right shoulder. Dictated by: Dictated on workstation # [id number]
--- NOTE | 2020-01-21 19:52 | Diagnostic Imaging Report ---
INDICATION: Fall. Right shoulder pain. EXAMINATION: Two views of the right humerus. FINDINGS: There is a comminuted humeral neck and tuberosity fracture of the humeral head. There does appear to be some inferior subluxation of the humeral head with respect to the glenoid, now with widening of the space between humeral head and acromion. No definite glenoid fracture is demonstrated. IMPRESSION: Comminuted fracture of humeral head and neck with inferior subluxation of the humeral head. Dictated by: Dictated on workstation # [id number]
--- NOTE | 2020-01-21 19:53 | Diagnostic Imaging Report ---
INDICATION: Fall. Right elbow pain. EXAMINATION: Three views of the right elbow. FINDINGS: A true lateral view was not obtained due to humeral neck fracture. No fracture or dislocation of the elbow are demonstrated. Joint effusion cannot be excluded due to the limited imaging. IMPRESSION: Limited images of the right elbow with no fracture demonstrated. Dictated by: Dictated on workstation # [id number]
[2020-01-21 20:44] VITALS: BP 145/88
== END 2020-01-21 20:49 | disposition home or self-care (01) ==
LOC: EDUNIT# 18:55 → ER 18:56
DX: S42.291A Other displaced fracture of upper end of right humerus, initial encounter for closed fracture (principal); S43.031A Inferior subluxation of right humerus, initial encounter; I25.2 Old myocardial infarction; E78.00 Pure hypercholesterolemia, unspecified; K21.9 Gastro-esophageal reflux disease without esophagitis; E11.9 Type 2 diabetes mellitus without complications; F41.9 Anxiety disorder, unspecified; F32.9 Major depressive disorder, single episode, unspecified; R40.2142 Coma scale, eyes open, spontaneous, at arrival to emergency department; R40.2252 Coma scale, best verbal response, oriented, at arrival to emergency department; R40.2362 Coma scale, best motor response, obeys commands, at arrival to emergency department; Z88.6 Allergy status to analgesic agent; Z88.1 Allergy status to other antibiotic agents; Z88.5 Allergy status to narcotic agent; Z88.8 Allergy status to other drugs, medicaments and biological substances; Z79.82 Long term (current) use of aspirin; Z79.84 Long term (current) use of oral hypoglycemic drugs; Z79.52 Long term (current) use of systemic steroids; Z87.891 Personal history of nicotine dependence; W01.0XXA Fall on same level from slipping, tripping and stumbling without subsequent striking against object, initial encounter
CPT/HCPCS: 70450; 71045; 72125; 73060; 73080

== ENCOUNTER → 2020-01-30 | Outpatient (CLI) | payer MEDICAID ==
--- NOTE | 2020-01-30 13:37 | Diagnostic Imaging Report ---
EXAMINATION: Right shoulder radiographs, 2 views. COMPARISON: Radiographs of the right humerus January 21, 2020. HISTORY: 65-year-old female, followup fracture. FINDINGS: There is a comminuted displaced multipart fracture of the right proximal humerus involving the humeral neck and tuberosities. There is lateral displacement of the greater tuberosity fracture fragment by approximately 14 mm. The overall fracture alignment is unchanged since the comparison exam. There is no interval bony callus bridging or periosteal reaction. The acromioclavicular joint is normally aligned. There are no prominent acromioclavicular degenerative changes. IMPRESSION: Redemonstrated comminuted displaced multipart fracture of the right proximal humerus including involvement of the humeral neck and tuberosities without change in fracture alignment or interval healing response since January 21, 2020. Dictated by: Dictated on workstation # [id number]
== END ==
LOC: ORTHO 12:21
PROVIDERS: ATTEND Orthopaedic Surgery
DX: S42.221D 2-part displaced fracture of surgical neck of right humerus, subsequent encounter for fracture with routine healing (principal); X58.XXXD Exposure to other specified factors, subsequent encounter
CPT/HCPCS: 73030

== ENCOUNTER → 2020-02-13 | Outpatient (CLI) | payer MEDICAID ==
--- NOTE | 2020-02-13 13:36 | Diagnostic Imaging Report ---
INDICATION: Right humerus fracture, follow-up. Time of exam 1:13 PM Correlation is made with prior radiograph from 01/30/2020. Comminuted multipart fracture of the proximal humerus is again noted. Slight lateral displacement of the greater tuberosity fragment is again noted and stable. There does appear to be some blurring of the fracture lines as well as some sclerosis consistent with some healing. Fracture lines do remain partly visible however. Glenohumeral alignment is maintained. Acromioclavicular alignment is maintained. IMPRESSION: Healing proximal right humerus fracture. Fracture lines remain partly visible. Dictated by: Dictated on workstation # [id number]
== END ==
LOC: ORTHO 12:26
PROVIDERS: ATTEND Orthopaedic Surgery
DX: S42.221D 2-part displaced fracture of surgical neck of right humerus, subsequent encounter for fracture with routine healing (principal); X58.XXXD Exposure to other specified factors, subsequent encounter
CPT/HCPCS: 73030

== ENCOUNTER → 2020-02-22 | Outpatient (CLI) | payer MEDICARE, MEDICAID ==
[~2020-02-22] MED LIST changes: +HOLD METFORMIN - RECEIVED CONTRAST 20 ML VIAL IV SCH; +IOHEXOL 350 MG/ML 100 ML (OMNIPAQUE 350) VIAL IV ONE
[2020-02-22 14:03] LABS: BUN/CREATININE RATIO 22; CALCIUM 9.9 MG/DL (8.5-10.1); CARBON DIOXIDE 25 MMOL/L (21-32); CHLORIDE 104 MMOL/L (98-107); CREATININE SERUM 0.83 MG/DL (0.60-1.30); GFR ESTIMATED > 60; GLUCOSE 144 MG/DL (70-105); POTASSIUM 4.5 MMOL/L (3.6-5.0); SODIUM 139 MMOL/L (135-145)
--- NOTE | 2020-02-22 15:30 | Diagnostic Imaging Report ---
PROCEDURE: CT abdomen with contrast only. TECHNIQUE: Multiple contiguous axial images were obtained through the abdomen after the administration of intravenous contrast. Auto Exposure Controls were utilized during the CT exam to meet ALARA standards for radiation dose reduction. INDICATION: Renal cell carcinoma. FINDINGS: The previous CT abdomen/pelvis exam of 04/21/2018 noted heterogeneously enhancing mass in the left kidney. In the interval since the prior exam, the patient has undergone a left nephrectomy. Reportedly, a diagnosis of malignancy involving the left kidney has been established. There are surgical clips in the left renal fossa. There is no sign of a mass to suggest recurrent malignancy. The right kidney is similar in appearance to the prior exam. There are small cysts associated with the right kidney including a 2 cm cyst along the superior pole of the right kidney. These cysts have a generally benign appearance. There is no sign of a solid mass. There is no evidence for obstruction of the right collecting system either. There is a minute 2 mm nonobstructive calculus within the right kidney, however. The liver is homogeneous and not enlarged. As noted on the prior exam, the gallbladder is surgically absent. The spleen, pancreas, adrenals, aorta, and inferior vena cava show no sign of an acute abnormality. The stomach is not well distended and consequently difficult to assess. There is no mass or adenopathy involving the abdomen. The lung bases are clear. The bone windows show no evidence for a fracture or for a destructive lesion. IMPRESSION: 1. In the interval since prior exam, the patient has undergone a left nephrectomy. There is no mass in the left renal fossa to suggest recurrent malignancy. 2. There is no other evidence for neoplastic disease either. 3. There is no sign of an acute abnormality. Dictated by: Dictated on workstation # [id number]
--- NOTE | 2020-02-22 17:35 | Diagnostic Imaging Report ---
EXAMINATION: Chest (PA and lateral). CLINICAL INDICATION: 65-year-old female, history of left renal mass. COMPARISON: January 21, 2020. FINDINGS: There is cervical spine hardware. Heart size and mediastinal contours are unremarkable. Radiographs are not sensitive for detection of metastatic disease to the chest. There is no radiographically apparent pulmonary nodule. There is no identified pneumothorax. There is no pleural effusion. There is no identified focal airspace consolidation. There are degenerative changes of the spine. IMPRESSION: 1. No identified acute cardiopulmonary abnormality. 2. Chest radiographs are not sensitive for detection of metastatic disease to the chest. Dictated by: Dictated on workstation # [id number]
== END ==
LOC: RAD 13:15
PROVIDERS: ATTEND Urology
DX: N28.89 Other specified disorders of kidney and ureter (principal); Z90.5 Acquired absence of kidney
CPT/HCPCS: 36415; 71046; 74160; 80048

== ENCOUNTER → 2020-02-27 | Outpatient (CLI) | payer MEDICARE, MEDICAID ==
[~2020-02-27] MED LIST changes: -HOLD METFORMIN - RECEIVED CONTRAST 20 ML VIAL IV SCH; -IOHEXOL 350 MG/ML 100 ML (OMNIPAQUE 350) VIAL IV ONE
--- NOTE | 2020-02-27 13:30 | Diagnostic Imaging Report ---
INDICATION: Right humeral fracture. TECHNIQUE/COMPARISON: AP, oblique, and transscapular views of the right humerus were obtained and compared to 02/13/2020. FINDINGS: The humeral head and neck fracture is unchanged in alignment compared to the prior study with signs of ongoing healing. The glenohumeral joint and AC joint appear unremarkable. IMPRESSION: Stable alignment of the humeral head and neck fractures with ongoing healing. There is no new abnormality. Dictated by: Dictated on workstation # [id number]
== END ==
LOC: ORTHO 12:44
PROVIDERS: ATTEND Orthopaedic Surgery
DX: S42.221D 2-part displaced fracture of surgical neck of right humerus, subsequent encounter for fracture with routine healing (principal); X58.XXXD Exposure to other specified factors, subsequent encounter
CPT/HCPCS: 73030

== ENCOUNTER 2020-03-26 12:47 | Inpatient (IN) | payer MEDICARE, MEDICAID ==
[~2020-03-26] VITALS: Ht 172 cm; Wt 91.0 kg
[~2020-03-26 12:47] MED LIST changes: -ATOR20TA66 PO; -FLAX10004 PO; -MULT-1021 PO; -PIOG15TA67 PO; -SAXA5TAB PO; -SERT50TA9 PO
[2020-03-26 13:56] LABS: BASOPHILS % (AUTO) 0 % (0-10); EOSINOPHILS # (AUTO) 0.4 10^3/uL (0.0-0.3); EOSINOPHILS % (AUTO) 4 % (0-10); HEMATOCRIT 43 % (35-52); HEMOGLOBIN 14.8 G/DL (11.5-16.0); LYMPHOCYTES # (AUTO) 2.4 X 10^3 (1.0-4.0); LYMPHOCYTES % (AUTO) 24 % (12-44); MEAN CORPUSCULAR HEMOGLOBIN 31 PG (25-34); MEAN CORPUSCULAR HGB CONC 34 G/DL (32-36); MEAN CORPUSCULAR VOLUME 91 FL (80-99); MEAN PLATELET VOLUME 10.1 FL (7.4-10.4); MONOCYTES # (AUTO) 0.8 X 10^3 (0.0-1.0); MONOCYTES % (AUTO) 7 % (0-12); NEUTROPHILS # (AUTO) 6.6 X 10^3 (1.8-7.8); NEUTROPHILS % (AUTO) 65 % (42-75); PLATELET COUNT 195 10^3/uL (130-400); RED CELL DISTRIBUTION WIDTH 13.4 % (10.0-14.5); WHITE BLOOD COUNT 10.2 10^3/uL (4.3-11.0)
[2020-03-26 14:00] LABS: BILIRUBIN,URINE NEGATIVE (NEGATIVE); CLARITY,URINE CLEAR; COLOR,URINE YELLOW; GLUCOSE, URINE (UA) NEGATIVE (NEGATIVE); KETONES,URINE NEGATIVE (NEGATIVE); LEUKOCYTE ESTERASE ,URINE NEGATIVE (NEGATIVE); NITRITE,URINE NEGATIVE (NEGATIVE); PH,URINE 5.5 (5-9); PROTEIN,URINE NEGATIVE (NEGATIVE)
[2020-03-26 14:08] LABS: BACTERIA,URINE TRACE /HPF; RBC,URINE RARE /HPF; SQUAMOUS EPITHELIAL CELL,UR 0-2 /HPF; WBC,URINE 0-2 /HPF
[2020-03-26 14:39] LABS: ALBUMIN 3.9 GM/DL (3.2-4.5); CHLORIDE 108 MMOL/L (98-107); POTASSIUM 4.2 MMOL/L (3.6-5.0); SODIUM 139 MMOL/L (135-145)
[2020-03-26 14:40] LABS: CALCIUM 9.2 MG/DL (8.5-10.1)
[2020-03-26 14:41] LABS: GLUCOSE 204 MG/DL (70-105)
[2020-03-26 14:42] LABS: TOTAL PROTEIN 7.6 GM/DL (6.4-8.2)
[2020-03-26 14:43] LABS: BILIRUBIN,TOTAL 0.4 MG/DL (0.1-1.0); CARBON DIOXIDE 21 MMOL/L (21-32)
[2020-03-26 14:45] LABS: ALKALINE PHOSPHATASE 126 U/L (40-136); CREATININE SERUM 0.76 MG/DL (0.60-1.30); GFR ESTIMATED > 60
[2020-03-26 14:46] LABS: BUN/CREATININE RATIO 25
[2020-03-26 14:48] LABS: ALANINE AMINOTRANSFERASE 12 U/L (0-55)
--- OUTSIDE RECORDS SUMMARY | 2020-03-26 15:20 | XMS REPORT | Clinical Summary ---
Author Author [facility] Organization [facility] Address Unknown Phone Unavailable Care Team Providers Care Architect In Training Name Role Phone Александр Rincon APRN PCP Source Comments Some departments are not documenting in the electronic medical record. If you d o not see the information that you expected, contact Release of Information in [facility] Information Management department at [phone] for further assistan ce in locating additional records.[facility] Allergies Comments Active Allergy Reactions Severity Noted [...] revealed at this exam. 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 05/21/15 [...] year with CT Abd w/wo, CXR, BMP Encounters Care Team Description Date Type Specialty Lamberto Monsalve MD Imaging 02/05/2020 Telephone Oncology Lamberto Monsalve MD Error 01/29/2020 Telephone Oncology from Last 3 Months Social History Date Tobacco Use Types Packs/Day [...] Health Maintenance Due Date Last Done Comments HIV SCREENING 1970 DTAP/TDAP VACCINES (1 - 1973 Tdap) HEPATITIS C SCREENING 1973 PHYSICAL (COMPREHENSIVE) 1973 EXAM BREAST CANCER SCREENING 1995 COLORECTAL CANCER 2005 SCREENING SHINGLES RECOMBINANT 2005 VACCINE (1 of 2) OSTEOPOROSIS 01/09/2020 SCREENING/MONITORING PNEUMONIA (PPSV23) 01/09/2020 VACCINE (1 of 1 - PPSV23) INFLUENZA VACCINE 07/18/2020 09/17/2005, 08/14/2004, 09/06/2003, Additional history exists Results Not on filefrom Last 3 Months Insurance Type Payer Benefit Subscriber ID Effective Phone Address Plan / Dates Group Medicaid UHC [place]ICAID [place] U[place] xxxxxxxxxxx 2018-P [place] [place] [address] (Home) [place] [phone] Advance Directives Patient Radiology Scheduler Explanation Type Date Recorded AMB Advance 07/06/2018 6:03 AM Directive/DPOA Date Inactivated Comments Code Status Date Activated 07/07/2018 2:26 PM Full Code 07/06/2018 11:27 AM Provider has discussed Code Status Yes w/Patient or Family?
--- OUTSIDE RECORDS SUMMARY | 2020-03-26 15:20 | XMS REPORT | Encounter Summary ---
Author Author [facility] Organization [facility] Address Unknown Phone Unavailable Care Team Providers Care Research Professor Of Biostatistics Name Role Phone RinconJuanАлександр MIESHA PCP Reason for Visit * Reason Comments Error Encounter Details Care Team Description Date Type Department Lamberto Monsalve MD [address] [place] [address] [phone] Error 01/29/2020 Telephone [facility] [address] [address] Social History Date Tobacco Use Types Packs/Day Years Used Quit: 06/06/2016 Former Smoker Cigarettes 1 35 Smokeless Tobacco: Never Used Drinks/Week oz/Week Comments Alcohol Use No Sex Assigned at Date Recorded Not on file Industry Job Start Date Occupation Not on file Not on file Not on file Travel End Travel History Travel Start No recent travel history available. documented as of this encounter Functional Status Date of Assessment Functional Status Response 07/07/2018 Does the patient have a hearing impairment: No documented as of this encounter Plan of Treatment Not on filedocumented as of this encounter Visit Diagnoses Not on filedocumented in this encounter
--- OUTSIDE RECORDS SUMMARY | 2020-03-26 15:20 | XMS REPORT | Encounter Summary ---
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 Pt has not completed ye t due to broken shoulder. Not able to drive and hasn't set these up yet [place]. Orders were faxed to [email or web address] on 01/29/2020 fax #[phone]. Gave pt my contact info to call back when completed so that we could reques t the results. She verbalized understanding and agreement. documented in this encounter Plan of Treatment Not on filedocumented as of this encounter Visit Diagnoses Not on filedocumented in this encounter
--- OUTSIDE RECORDS SUMMARY | 2020-03-26 15:22 | XMS REPORT ---
Author Author [employer]. 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 [employer] Address [address] [address] Care Team Providers Care It Business Process Architect Name Role Phone WESTON ALCANTAR Unavailable [facility] Unavailable [phone] BLANCAS, EDIE Unavailable BLANCAS, EDIE Unavailable BLANCAS, [...] Unavailable BLANCAS, EDIE Unavailable BLANCAS, EDIE Unavailable [facility] Unavailable BLANCAS, EDIE Unavailable BLANCAS, EDIE Unavailable BLANCAS, EDIE Unavailable BLANCAS, EDIE Unavailable BLANCAS, EDIE Unavailable BLANCAS, EDIE Unavailable BLANCAS, EDIE Unavailable BLANCAS, EDIE Unavailable BLANCAS, EDIE Unavailable BLANCAS, EDIE Unavailable BLANCAS, EDIE Unavailable MCCRACKEN ALIREZA VINES Unavailable BLANCAS, EDIE Unavailable BLANCAS, EDIE Unavailable BLANCAS, EDIE Unavailable ROBERTVICENTAPATRICK Unavailable BLANCAS, EDIE Unavailable BLANCAS, EDIE Unavailable BLANCAS, EDIE Unavailable BLANCAS, EDIE Unavailable RJ PENA Unavailable BLANCAS, EDIE Unavailable ROBERTVICENTAPATRICK Unavailable BLANCAS, EDIE Unavailable BLANCAS, EDIE Unavailable LINDEN MOISE FAC, DASIA FACGary CCDS Unavailable Unavailabl e BLANCAS, EDIE Unavailable FOREIGN HORAN Unavailable Unavailable BLANCAS, EDIE Unavailable MARGUERITE WAITE MD Unavailable Unavailable RICHIE BENTLEY MD Unavailable Unavailable BLANCAS, EDIE Unavailable RJ PENA JO Unavailable BUD BRIDGES Unavailable BLANCAS, EDIE Unavailable BLANCAS, EDIE Unavailable KHADIJAH CONDE Unavailable BLANCAS, EDIE Unavailable WESTON ALCANTAR MD Unavailable Unavailable DASIA GARCIA Unavailable BLANCAS, EDIE Unavailable reynaPATRICK Hanson Unavailable BLANCAS, EDIE Unavailable RJ PENA Unavailable GRACE MOISE, KADIE Torres Unavailable Unavailable BLANCAS, EDIE Unavailable BLANCAS, EDIE Unavailable zzCAREY, EDIE Unavailable zzCAREY, EDIE Unavailable BLANCAS, EDIE Unavailable zzCAREY, EDIE Unavailable ALIS, ROSA Unavailable ALIS, ROSA Unavailable ALIS, ROSA Unavailable SENGJULIO Morrison Unavailable ALIS, ROSA Unavailable ALIS, ROSA Unavailable ALIS, ROSA Unavailable MARGUERITE LE Unavailable Unavailable JASMINE, MISA-JEANIE Unavailable Unavailable JASMINE, MISA-JEANIE Unavailable Unavailable ALIS, ROSA D OUTPLACEMENT CONSULTANT Unavailable Unavailable KERRY PETERS Unavailable Unavailable ALIS, ROSA D Unavailable Unavailable BROWN, WESTON Unavailable Unavailable BROWN, WESTON Unavailable Unavailable BROWN, WESTON Unavailable Unavailable YU, HERMINIO Unavailable Unavailable YU, HERMINIO Unavailable Unavailable YU, HERMINIO Unavailable Unavailable ALIS, ROSA Unavailable ALIS, ROSA Unavailable ALIS, ROSA Unavailable ALIS, ROSA Unavailable ALIS, ROSA Unavailable YU, HERMINIO Unavailable Unavailable YU, HERMINIO Unavailable Unavailable YU, HERMINIO Unavailable Unavailable BROWN, WESTON Unavailable Unavailable BROWN, WESTON Unavailable Unavailable BROWN, WESTON Unavailable Unavailable ARLIN PRICE OUTPLACEMENT CONSULTANT Unavailable Unavailable ALIS, ROSA D OUTPLACEMENT CONSULTANT PCP GRACE MOISE, KADIE Torres Unavailable Unavailable MODE MOISE, SARTHAK A Unavailable Unavailable ALIS, ROSA Unavailable Unavailable Unavailable SALVADOR GONZALEZ, KHOA L Unavailable Unavailable PABLO MOISE, JAKE Torres Unavailable Unavailable DASIA BILLINGSLEY MA Unavailable Unavailable MARGUERITE WAITE MD Unavailable Unavailable ALIS ROSA WHITESIDE Unavailable Unavailable YONNY WHITESIDE, EDIE Butler Unavailable Unavailable FOREIGN MORRIS Unavailable Unavailable WESTON ALCANTAR MD Unavailable Unavailable TRAVIS CANDELARIA APRN Unavailable Unavailable RICHIE BENTLEY MD Unavailable Unavailable KHURRAM GRIJALVA MD Unavailable Unavailable TAMY WINTERS MD Unavailable Unavailable [facility] Unavailable [facility] Unavailable Unavailable Unavailable Unavailable Unavailable Unavailable Unavailable Unavailable Unavailable Unavailable Unavailable Unavailable Unavailable Unavailable Unavailable Allergies Normalized Allergy Reported Date of Reaction(s) Care Provider Facility Allergy Type classification allergen Allergy Onset Drug Allergy Anti-Epileptic gabapentin 01-03-2019 - stomach upse t [facility] (2 sources.) Agents Translations: [address] [facility] nter [ Gabapentin, of [facility] gabapentin 300 [place] (25162) MG Oral Capsule, Gabapentin] Drug Allergy Methocarbamol methocarbamol OTHER, MARGUERITE Nuno Not Available (11 sources.) MODERATE (38229) Medications Current Medications Medication Ingredient Drug Dose Dates Status Sig Sig Care Class(es) (Normalized) (Original) Provid er no Centrum no Active no Centrum no information Silver information information Silver name (2 50+Women - 50+Women - sources.) Translation Active s: [ Centrum Silver 50+Women -] ciprofloxac ciprofloxac Quinolone 500 mg 05-20-20 Active no Cipro 500 MG no in 500 mg in Antimicrobi 18 - information Orally ever y name oral tablet Translation al 05-30-20 12 hrs 1 (2 s: [ Cipro 18 tablet 12h sources.) 500 MG] May, May, 10 day(s) Active nitrofurant nitrofurant no 100 mg Active no Macrobid 100 no oin, oin information information MG Orally name macrocrysta Translation every 12 hrs ls 25 mg / s: [ 1 capsule nitrofurant Macrobid with food oin, 100 MG] 12h 5 days monohydrate Active 75 mg oral capsule (2 sources.) phenazopyri phenazopyri no 200 mg Active no Pyridium 200 no dine dine information information MG Orally name hydrochlori Translation Three times de 200 mg s: [ a day 1 oral tablet Pyridium tablet after (3 200 MG] meals 8h 2 sources.) day(s) Active Completed/Discontinued Medications Medication Ingredient Drug Dose Dates Status Sig Sig Care Class(es) (Normalized) (Original) Provid er no lansoprazol Proton Pump 11-16-19 Complete no Lansopra zole no information e Inhibitor 14 d information Discontin ued name (1 source.) 30 ORAL Bedtime November 16, 2013 no MEPERIDINE no 06-29-20 no no no no information SYRINGE INJ information 17 - informat informati on information name (1 source.) 50 MG/CC 06-29-20 ion (DEMEROL 17 SYRINGE) no Landers-3/Dha no no no Landers-3/Dha/ no information /Epa/Fish information informat information Epa/Fis h Oil name (2 Oil ion Active 1 sources.) ORAL Twice A Day 08-16-2017 Completed no Landers-3/ no name inform Dha/Epa/ ation Fish Oil Disconti nued 1000 ORAL Twice A Day August 16, 2017 oxyCODONE oxyCODONE Opioid 5 mg 09-15-20 Complete no Oxyco done no hydrochlori Agonist 18 - d information Hcl na me de 5 mg 09-15-20 Discontinued oral tablet 18 - 5 ORAL Every (2 09-15-20 4HRS as sources.) 18 needed for Pain-Severe To Breakthrough September 15, 2018 1:23pm (One-Time) no Oxycodone no 05-18-20 Complete no Oxycodone no information Hcl/Acetami information 17 d information Hc l/Acetamin name (1 source.) franyudelka ophen Discontinued 0.5 ORAL Three Times A Day as needed May 18, 2017 no Pioglitazon no 05-18-20 Complete no Pioglitazone no information e information 17 d information Hcl/Met formi name (1 source.) Hcl/Metform n Hcl in Hcl Discontinued 0.5 ORAL Twice A Day May 18, 2017 Problems Active Problems Problem Normalized Date Last Normalized Normalized Provider Fa cility Classification Problem(s) Recorded Problem Problem Sta tus Duration Residual Acquired 02-20-2020 - Episodic Active JULIO Craig mmunity codes; [facility] [facility] unclassified kidney of [place] (27 sources.) Translations: [place] (20037) [ - S/p nephrectomy Z90.5] Residual Acquired 02-20-2020 - Episodic Active EDIE BLANCAS [facility] Via codes; absence of , MIESHA [place] unclassified other Hospital - (7 sources.) specified [place] parts of (32592) digestive tract Residual Acquired 02-20-2020 - Episodic Active TRAVIS CANDELARIA [facility] Via codes; absence of MIESHA [place] unclassified ovaries, Hospital - (10 sources.) bilateral [place] (15179) Residual Acquired 02-20-2020 - Episodic Active RICHIE MARTINDAVON [facility] Via codes; absence of MD [place] unclassified ovaries, Hospital - (23 sources.) unilateral [place] (01751) Acute Acute Episodic Active [facility] bronchitis (7 bronchitis, [address] [facility] sources.) unspecified of [place] Translations: [place] (31118) [ - Acute bronchitis, unspecified organism J20.9] Allergic Allergy status 02-20-2020 - Episodic Active KHURRAM CORTES OMYifan , Not Available reactions (30 to other MD (41695) sources.) drugs, medicaments and biological substances status Translations: [ ALLERGY STATUS TO OTHER ANTIBIOTIC AGENT, ALLERGY STATUS TO NARCOTIC AGENT STATUS, ALLERGY STATUS TO ANESTHETIC AGENT STATU, ALLERGY STATUS TO OTH DRUG/MEDS/BIOL SUB, ALLERGY STATUS TO OTHER ANTIBIOTIC AGENT, ALLERGY STATUS TO ANALGESIC AGENT STATUS, ALLERGY STATUS TO NARCOTIC AGENT STATUS, ALLERGY STATUS TO OTH DRUG/MEDS/BIOL SUB, ALLERGY STATUS TO ANESTHETIC AGENT STATU] Anxiety Anxiety 02-20-2020 - Chronic Active RICHIE BENTLEY Not Available disorders (22 disorder, , (45461) sources.) unspecified Other Arthrodesis 02-20-2020 - Episodic Active KERRY BUNN , [facility] Via connective status [facility] tissue [facility] - (10 sources.) [place] (30854) Coronary Atheroscleroti 02-20-2020 - Chronic Active FOREIGN B AIMA Not Available atherosclerosi c heart (59132) s and other disease of heart disease [place] (21 sources.) coronary artery without angina pectoris Translations: [ OLD MYOCARDIAL INFARCTION] Other nervous Linn's palsy 02-20-2020 - Episodic Active KHURRAM Solomon [facility] , Not Available system (32116) disorders (26 sources.) Other Body mass 02-20-2020 - Chronic Active DASIA GARCIA , Not Available nutritional; index (BMI) MD [facility] (85480) endocrine; and 33.0-33.9, metabolic adult disorders (11 sources.) Other Body mass Chronic Active [facility] nutritional; index (BMI) 57885 [facility] endocrine; and 45.0-49.9, of [place] metabolic adult [place] (42773) disorders (8 Translations: sources.) [ - BMI 45.0-49.9, adult Z68.42] Chronic Bronchitis, Episodic [facility] obstructive not specified [address] [facility] pulmonary as acute or of [facility] disease and chronic [place] (66317) bronchiectasis Translations: (3 sources.) [ - Bronchitis J40] Spondylosis; Cervicalgia no information Active MARGUERITE NEMESIO Not Available intervertebral Translations: (42770) disc [ OTHER disorders; SPONDYLOSIS other back [...] right side] Residual Chronic pain Chronic Active [facility] Via John ti codes; Translations: [facility] unclassified [ Other [address] [place] (6 sources.) chronic pain, (62128) Other chronic pain] Residual Chronic pain Episodic Active Critical access hospital ty codes; Translations: [address] [facility] unclassified [ Other of [place] (3 sources.) chronic pain] [place] (76597) Other nervous Chronic pain Chronic Active [facility] Com munity system syndrome [address] [facility] disorders (3 Translations: of [place] sources.) [ Pain [place] (24940) syndrome, chronic] Coma; stupor; Coma scale, 02-20-2020 - Episodic Active KHOA HIT E , [facility] Via and brain eyes open, CRYPTOLOGIC TECHNICIAN TECHNICAL [place] damage (20 spontaneous, Hospital - sources.) at arrival to [place] emergency (67623) department Translations: [ COMA SCALE, BEST VERBAL RESPONSE, ORIENT, COMA SCALE, BEST MOTOR RESPONSE, OBEYS C] Superficial Contusion of Episodic Active MARGUERITE HOWAYEK Not Available injury; right foot, (42985) contusion (6 initial sources.) encounter Translations: [ CONTUSION OF FOOT, CONTUSION OF RIGHT FOOT, SEQUELA, LATE EFFECT OF CONTUSION] Other diseases Cyst of 02-20-2020 - Episodic Active KADIE [facility] Via of kidney and kidney, MD [place] EDWARDS ureters (22 acquired Hospital - sources.) [place] (24525) Conditions Dizziness and 02-20-2020 - Episodic Active KADIE [facility] Via associated giddiness MD [place] [facility]ARDS with dizziness Translations: Hospital - or vertigo (15 [ - Vertigo [place] sources.) R42] (95386) Other Effusion, left 02-20-2020 - Episodic Active KHURRAM KAIC [facility] , [facility] Via non-traumatic knee [facility] [place] joint Hospital - disorders (19 [place] sources.) (80569) Other Encounter for 02-20-2020 - Episodic Active KERRY SHAHOliver AN , [facility] Via aftercare (10 other [place] [facility] sources.) specified Hospital - surgical [place] aftercare (54036) Gastritis and Gastritis, 02-20-2020 - Episodic Active TAKAAKI KIDO , [facility] Via duodenitis (12 unspecified, MD [place] sources.) without Hospital - bleeding [place] (32278) Residual H/O: surgery Episodic Active JULIO MADL Rosiei ty codes; Translations: [address] [facility] unclassified [ S/p of [facility] (12 sources.) nephrectomy] [place] (42255) Headache; Headache 02-20-2020 - Episodic Active TRAVIS CANDELARIA , [facility] Via including OUTPLACEMENT CONSULTANTEdith [place] migraine (10 Hospital - sources.) [place] (38876) Joint Inferior 02-20-2020 - Episodic Active KHOA SALVADOR , [facility] Via disorders and subluxation of CRYPTOLOGIC TECHNICIAN TECHNICAL [place] dislocations; right humerus, Hospital - trauma-related initial [place] (10 sources.) encounter (16483) Other nervous Lesion of Chronic Active ROSA ALIS Commun ity system plantar nerve, [address] [facility] r disorders (8 left lower of [facility] sources.) limb [place] (55920) Translations: [ - 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] Lymphadenitis Localized Episodic Active ROSA ALIS Commun ity (16 sources.) enlarged lymph 03643 [facility] r nodes of [facility] Translations: [place] (14160) [ - Enlarged lymph nodes in armpit R59.0, - Axillary lymphadenopath y R59.0] Other shelter 02-20-2020 - Episodic Active RICHIE ODGERS Not Available aftercare (22 (current) use , (82062) sources.) of aspirin Other shelter 02-20-2020 - Episodic Active DASIA GARCIA , [facility] Via aftercare (17 (current) use BRANDI [place] sources.) of oral Hospital - hypoglycemic [place] drugs (85708) Other terminal superintendent 02-20-2020 - Episodic Active TRAVIS CANDELARIA , [facility] Via aftercare (20 (current) use OUTPLACEMENT CONSULTANT [place] sources.) of systemic Hospital - steroids [place] (87449) Nonmalignant Mastodynia 02-20-2020 - Episodic Active ARLIN [facility] Via breast Translations: ALBERT [place] conditions (16 [ - Breast Hospital - sources.) pain, left [place] N64.4] (48688) Other nervous Owens's Chronic Active ROSA ALIS Communi ty system metatarsalgia [address] [facility] disorders (3 Translations: of [facility] sources.) [ Owens's [place] (70510) neuroma of left foot] Other Neuralgia and Episodic Active ROSA ALIS Commun ity connective neuritis, [address] [facility] tissue disease unspecified of [facility] (8 sources.) Translations: [place] (94019) [ - Nerve pain M79.2] Substance-rela Nicotine 02-20-2020 - Chronic Active KADIE [facility] Via sada disorders dependenceGRACE [facility] Christi (9 sources.) cigarettes, Hospital - uncomplicated [place] (28665) Other Obesity, 02-20-2020 - Chronic Active DASIA GARCIA , N ot Available nutritional; unspecified FAC (54809) endocrine; and metabolic disorders (13 sources.) Occlusion or Occlusion and 02-20-2020 - Chronic Active HEATHE R BAIMA [facility] Via stenosis of stenosis of , CRYPTOLOGIC TECHNICIAN TECHNICAL [place] precerebral bilateral Hospital - arteries (14 carotid [place] sources.) arteries (82738) Coronary Old myocardial no information Active RICHIE BENTLEY Not Available atherosclerosi infarction MD (90029) s and other Translations: heart disease [ PRESENCE OF (19 sources.) CORONARY ANGIOPLASTY IMPLANT, OLD MYOCARDIAL INFARCTION] Other Osteophyte, 02-20-2020 - Chronic Active EDIE CARE Y [facility] Via non-traumatic vertebrae , OUTPLACEMENT CONSULTANT [place] joint Hospital - disorders (10 [place] sources.) (65553) Nonspecific Other chest 02-20-2020 - Episodic Active FOREIGN B AIMA Not Available chest pain (20 pain (24571) sources.) Translations: [ - Left-sided chest wall pain R07.89, - Chest pain, unspecified type R07.9] Fracture of Other 02-20-2020 - Episodic Active KHOA SALVADOR , [facility] Via upper limb (27 displaced CRYPTOLOGIC TECHNICIAN TECHNICALChristian[facility] sources.) fracture of Hospital - upper end of [place] right humerus, (93202) initial encounter for closed fracture Translations: [ 2-PART DISP FX OF SURG NK OF R GOPI, 7T] Malaise and Other fatigue Episodic Active ROSA ALIS Comm unity fatigue (8 Translations: [facility] [facility] Center sources.) [ - Fatigue, of [facility] unspecified [place] (90673) type R53.83] Residual Other 02-20-2020 - Episodic Active TRAVIS CANDELARIA [facility] Via codes; specified MIESHA [place] unclassified postprocedural Hospital - (7 sources.) states [place] (20898) Rheumatoid Other 02-20-2020 - Chronic Active TRAVIS CANDELARIA [facility] Via arthritis and specified MIESHA [place] related spondylopathie Hospital - disease (13 s, cervical [place] sources.) region (67144) Translations: [ Retrolisthesis of vertebrae] External cause Overexertion 02-20-2020 - Episodic Active TIMOT HY [facility] Via codes: from MD [place] Natural/enviro static or Hospital - nment (26 awkward [place] sources.) postures, (82911) initial encounter Translations: [ EXPOSURE TO OTHER SPECIFIED FACTORS, SUB] Other Pain in left Episodic Active ROSA ALIS Communi ty connective arm [address] [facility] tissue disease Translations: of [place] (8 sources.) [ - Left arm [place] (70512) pain M79.602] Other Pain in left Episodic Active ROSA ALIS Communi ty connective foot 95265 [facility] tissue disease Translations: of [facility] (3 sources.) [ - Foot pain, [place] (44402) left M79.672] Other Pain in left Episodic Active WESTON BROWN Not A vailable non-traumatic shoulder (53489) joint Translations: disorders (20 [ - Left sources.) anterior shoulder pain M25.512, - Pain in left shoulder M25.512, - Acute pain of left shoulder M25.512] Other Pain in limb Episodic Active HERMINIO YU Hospi [facility] connective [facility] of tissue disease [place] (2 sources.) [facility] (14794) Other Pain in right Episodic Active HERMINIO YU Hosp ital connective foot [facility] of tissue disease [place] (2 sources.) [facility] (23551) Other Pain in right 02-20-2020 - Episodic Active KHOA SALVADOR , [facility] Via non-traumatic shoulder CRYPTOLOGIC TECHNICIAN TECHNICAL [facility] - disorders (10 [place] sources.) (45321) Residual Pain, Episodic Active [facility] codes; unspecified 66999 (Other Health Center unclassified Translations: Phone: of [facility] (2 sources.) [ - Pain R52] ) [place] (58697 ) Other and Personal 02-20-2020 - Episodic Active MARGUERITE WAITE [facility] Via unspecified history of [facility] [place] benign colonic polyps Hospital - neoplasm (23 [place] sources.) (91610) Screening and Personal 02-20-2020 - Episodic Active RICHIE ODG ERS Not Available history of history of MD (87094) mental health nicotine and substance dependence abuse codes (22 sources.) Residual Personal 02-20-2020 - Episodic Active KADIE [facility] V ia codes; history of MD [place] EDWARDS unclassified other Hospital - (26 sources.) complications [place] of , (80681) childbirth and the puerperium Other Personal 02-20-2020 - Episodic Active RICHIE ODGERS Not Available gastrointestin history of MD (21951) al disorders other diseases (20 sources.) of the digestive system Cancer of Personal 02-20-2020 - Episodic Active MADAY KRISHNAN Via kidney and history of MIESHA [place] renal pelvis other Hospital - (19 sources.) malignant [place] neoplasm of (96537) kidney Other Personal 02-20-2020 - Episodic Active TRAVIS CANDELARIA [facility] Via non-epithelial history of MIESHA [place] cancer of skin other Hospital - (22 sources.) malignant [place] neoplasm of (10160) skin Gastroduodenal Personal 02-20-2020 - Episodic Active MARGUERITE EWING [facility] Via ulcer (except history of [place] hemorrhage) peptic ulcer Hospital - (23 sources.) disease [place] (88774) Other Presence of 02-20-2020 - Chronic Active TRAVIS CANDELARIA , [facility] Via circulatory cardiac and MIESHA [place] disease (10 vascular Hospital - sources.) implant and [place] graft, (28113) unspecified Coronary Presence of 02-20-2020 - Episodic Active RICHIE SHIN S [facility] Via atherosclerosi coronary , MD [place] luna and other angioplasty Hospital - heart disease implant and [place] (21 sources.) graft (15750) Anal and Rectal polyp 02-20-2020 - Episodic Active TAKAAKI KID O , [facility] Via rectal [facility] [place] conditions (12 Hospital - sources.) [place] (99060) Other diseases Renal mass Chronic Active ROSA ALIS Comm unity of kidney and Translations: 16489 [facility] ureters (6 [ Left kidney of [facility] sources.) mass, Right [place] (42586) renal mass] Rheumatoid Retrolisthesis Episodic Active ROSA ALIS Comm unity arthritis and Translations: 66553 Health Center related [ of [facility] disease (5 Retrolisthesis [place] (79371) sources.) of vertebrae] Hemorrhoids Second degree 02-20-2020 - Episodic Active TAKAAKI KIDO , [facility] Via (12 sources.) hemorrhoids [place] [place] (00016) Other lower Shortness of Episodic Active ROSA ALIS Commu nity respiratory breath [address]97 Health Center disease (7 Translations: of [place] sources.) [ - Shortness [place] (83403) of breath R06.02] Other lower Solitary 02-20-2020 - Episodic Active WESTON BROW N [facility] Via respiratory pulmonary , [facility] [place] disease (15 nodule Hospital - sources.) [place] (96599) Other acquired Spondylolisthe 02-20-2020 - Episodic Active TRI STA ALIS , [facility] Via deformities sis, lumbar MIESHA [place] (11 sources.) region [facility] [place] (81344) Cardiac Tachycardia, 02-20-2020 - Episodic Active ALI LINDEN , Not Available dysrhythmias unspecified MD [facility] (59672) (13 sources.) Mycoses (2 Tinea unguium Episodic Active ROSA ALIS Commu nity sources.) Translations: 71155 (Other Health Center [ - Phone: of [facility] Onychomycosis ) [place] (83023) B3.1] Contraceptive Tubal ligation 02-20-2020 - Episodic Active SISSY BENTLEY Not Available and status , (76661) procreative management (22 sources.) Other diseases Unspecified 02-20-2020 - Episodic Active ANGELICA ALCANTAR [facility] Via of kidney and disorder of , [place] ureters (15 kidney and Hospital - sources.) ureter [place] (96712) External cause Unspecified 02-20-2020 - Episodic Active KHURRAM HERRERA [facility] Via codes: Fall fall, initial [place] (20 sources.) encounter Hospital - Translations: [place] [ - Fall, (21871) initial encounter W19.XXXA, FALL SAME LEV FROM SLIP/TRIP W/O STRIKE , FALL SAME LEV FROM SLIP/TRIP W STRIKE AG] Osteoarthritis Unspecified 02-20-2020 - Chronic Active RICHIE BENTLEY [facility] Via (25 sources.) osteoarthritis , [place] , unspecified Hospital - site [place] Translations: () [ UNILATERAL PRIMARY OSTEOARTHRITIS , RIGHT KNEE, OSTEOARTHROSIS , LOCALIZED, PRIMARY, INVOLVING LOWER LEG] Past or Other Problems Problem Normalized Date Last Normalized Normalized Provider Fa cility Classification Problem(s) Recorded Problem Problem Sta tus Duration Unclassified Cervical disc no information no information [...] Not Available Injury - Fall level from (29109) (9 sources.) slipping, tripping and stumbling with subsequent striking against other object, initial encounter Translations: [ - Fall, initial encounter W19.XXXA] Other injuries Knee, leg, Episodic Completed no name no inf ormation and conditions ankle, and due to foot injury external causes (3 sources.) Other shelter no information no information DASIA GARCIA , Not Available aftercare (6 (current) use MD [place] (61782) sources.) of oral hypoglycemic drugs Other Long-term Episodic Completed FOREIGN HORAN Not Avai lable aftercare (6 (current) use (64830) sources.) of other medications Mood disorders Major no information no information RICHIE MAYS Not Available (22 sources.) MD chantal (05642) disorder, single episode, unspecified Residual Other no information no information TRAVIS Sharma ot Available codes; specified (41465) unclassified postprocedural (3 sources.) states Other Pain in joint, Episodic Completed WESTON BROWN Not Available non-traumatic shoulder (05947) joint region disorders (3 sources.) Disorders of Pure no information no information KADIE Not Available lipid hypercholester MD GRACE (40346) metabolism (20 olemia, sources.) unspecified Other injuries Unspecified Episodic Completed no name no in formation and conditions injury of due to right lower external leg, initial causes (3 encounter sources.) Procedures Procedure Normalized Procedure Procedure Result Performer Facility Date 04-14-2018 Collection venous no information no name Pending sale to [facility] blood venipuncture [facility] ([id number]) 04-21-2018 Computed tomography of no information EDIE BLANCAS [facility] abdomen and pelvis Mcd[facility] ([id number]) with contrast 05-01-2018 Computerized axial no information KADIE Luna [facility] tomography of brain Mcdonald ([id number]) 05-16-2018 Gluc bld gluc mntr dev no information no name [facility] cleared [facility] spec home [facility] (64267) 04-06-2018 Gluc bld gluc mntr dev no information no name [facility] spec [facility] (29880) 07-12-2018 Hemoglobin no information no name [facility] glycosylated a1c [facility] (63020) 04-14-2018 Hemoglobin no information no name [facility] glycosylated a1c [facility] (28286) 05-16-2018 Iv infusion hydration no information no name [employer] initial 31 min-1 hour [facility] (94234) 08-11-2018 LAB NOT BILLED BY no information no name [facility] ([id number]) 05-16-2018 LAB NOT BILLED BY no information no name [facility] ([id number]) 05-14-2018 LAB NOT BILLED BY no information no name [facility] ([id number]) 04-14-2018 LAB NOT BILLED BY no information no name [facility] (10068) 08-31-2019 MRI of lumbar spine no information no name [facility] without [facility] ([id number]) 04-27-2018 Physical therapy no information no name [facility] mod complex [facility] 30 mins [place] ([id number]) 01-03-2019 Radex shoulder no information no name [facility] complete minimum 2 [facility] (56033) 04-27-2018 Therapeutic px 1/> no information no name [facility] each 15 min [facility] (53218) 05-16-2018 Urnls dip stick/tablet no information no name [facility] rgnt auto w/o [facility] ([id number]) 05-14-2018 Urnls dip stick/tablet no information no name [facility] rgnt auto w/o [facility] ([id number]) 04-06-2018 Urnls dip stick/tablet no information no name [facility] rgnt auto w/o [facility] (25203) Immunizations Normalized Immunization Date Notes Care Provider Facili ty Immunization pneumococcal 06-09-2019 no information no name [facility] conjugate vaccine, [facility] 13 [facility] ([id number]) no information 09-07-2019 no information ROSA SNELL 78465 As cension [facility] ([id number]) Results Test Name Value Interpretation Reference Range Date Time Fa cility (Normalized) (Normalized) (Medline Reference) xray : shoulder, left 2 view (in house) on null NEGATED: no information (no code) [facility] studies (set) (13838) urinalysis on null Protein mass Trace (no code) [facility] (90259) ua long dip (in house) on null Glucose Test Negtive (no code) [facility] (U) [facility] (09739) Protein mass Trace (no code) [facility] (U) [facility] (78963) other on null BLO Negtive (no code) [facility] [place] (11602) KET 09/16/2018~clear (no code) [facility] ~dark [facility]~none~Negt [facility] cheri~1+~Trace (99990) HI Negative (no code) [facility] (77417) Lot # [id number] (no code) [facility] (53046) SG 1.015 (no code) [facility] (08889) URO 1.0 (no code) [facility] (80270) hematology on null pH (Bld) 8.5 [pH] (no code) 7.38 - 7.42 [pH] [facility] (45792) glucose fingerstick (in house) on null GLUCOSE no information (no code) [facility] FINGERSTICK (IN Center of HOUSE) [facility] (95666) a1c (in house) on null Hemoglobin 6.7 % (no code) 0 - 5.7 % [facility] A1c/Hemoglobin.t [facility] fraction (Bld) (74142) Hemoglobin 6.9 % (no code) 0 - 5.7 % [facility] A1c/Hemoglobin.t [facility] fraction (Bld) (18752) laboratory on 2020-02-22 Anion gap 10 mmol/L (NEG) 3 - 11 mmol/L 02-22-2020 PENDING LOCATION [Moles/Vol] 09:45-0400 [facility] (23262) Calcium 9.9 mg/dL (NEG) 8.5 - 10.2 mg/dL 02-22-2020 PENDI NG LOCATION [Mass/Vol] 09:45-0400 [facility] (79465) Chloride 104 mmol/L (NEG) 95 - 106 mmol/L 02-22-2020 PENDI NG LOCATION [Moles/Vol] 09:45-0400 [facility] (28209) CO2 [Moles/Vol] 25 mmol/L (NEG) 23 - 29 mmol/L 02-22-2020 P ENDING LOCATION 09:45-0400 [facility] (56779) Creatinine 0.83 mg/dL (NEG) 02-22-2020 PENDING LOCATI ON [Mass/Vol] 09:45-0400 [facility] (13678) Creatinine and > (no code) 02-22-2020 PENDING LOC ATION Glomerular 09:45-0400 [facility] (40003) filtration rate.predicted panel - Serum, Plasma or Blood Glucose 144 mg/dL (H) 60 - 125 mg/dL 02-22-2020 PENDING LOCATION [Mass/Vol] 09:45-0400 [facility] (21802) Potassium 4.5 mmol/L (NEG) 3.7 - 5.2 mmol/L 02-22-2020 PEND ING LOCATION [Moles/Vol] 09:45-0400 [facility] (85987) Sodium 139 mmol/L (NEG) 135 - 145 mmol/L 02-22-2020 PEND ING LOCATION [Moles/Vol] 09:45-0400 [facility] (56444) Urea nitrogen 18 mg/dL (NEG) 7 - 20 mg/dL 02-22-2020 PENDI NG LOCATION [Mass/Vol] 09:45-0400 [facility] (89049) Urea 22 mg/mg (no code) 6 - 22 mg/mg 02-22-2020 PENDING L OCATION nitrogen/Creatin 09:45-0400 [facility] (74361) ine [Mass ratio] not yet categorized on 2019-12-28 CLINICAL no information (N) [facility] INFORMATION: [facility] (93251) COMMENT no information (no code) [facility] (41366) Date of previous no information (N) [facility] biopsy [facility] (02148) Date of previous 10/28/2017 (N) [facility] PAP smear [facility] (51058) Last menstrual no information (N) [facility] period start [facility] date 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 (Cvx/Vag) [ID] [facility] (70865) HPV E6+E7 mRNA Not Detected (N) [facility] RENY+probe Ql [facility] (Cvx) [facility] (95976) Microscopic no information (N) [facility] observation [facility] stain Nom (Cvx) [facility] (82417) Specimen source no information (N) [facility] Cyto stain Nom [facility] (Cvx/Vag) [facility] (44850) Statement of no information (N) [facility] adequacy Cyto [facility] stain (Cvx/Vag) [facility] [Interp] (23117) not yet categorized on 2019-10-17 A:C (IN HOUSE) 30-300 (no code) [facility] (35367) CRE 80~300 (no code) [facility] (18546) Exp date 06/07 (no code) [facility] (99139) Lot 6.6~6.9~0552 (no code) [facility] (03994) Lot # [id number] (no code) [facility] (50721) laboratory on 2019-10-17 Albumin 3.9 g/dL (N) 3.4 - 5.4 g/dL [facility] [Mass/Vol] [facility] (00716) Albumin/Globulin 1.2 {ratio} (N) 1 - 2.5 {ratio} [facility] [Mass ratio] [facility] (45273) ALP [Catalytic 97 U/L (N) 44 - 147 U/L [facility] activity/Vol] [facility] (99177) ALT [Catalytic 12 U/L (N) 4 - 40 U/L [facility] ealt activity/Vol] [facility] (26063) AST [Catalytic 15 U/L (N) 10 - 34 U/L [facility] activity/Vol] [facility] (89588) Bilirubin 0.4 mg/dL (N) 0.1 - 1.2 mg/dL [facility] [Mass/Vol] [facility] (21107) Calcium 9.5 mg/dL (N) 8.5 - 10.2 mg/dL [facility] [Mass/Vol] [facility] (00914) Chloride 105 mmol/L (N) 95 - 106 mmol/L [facility] [Moles/Vol] [facility] (70708) Cholesterol 179 mg/dL (N) 180 - 200 mg/dL [facility] [Mass/Vol] [facility] (18597) Cholesterol in 34 mg/dL (L) [facility] HDL [Mass/Vol] [facility] (30436) Cholesterol in 119 mg/dL (H) 0 - 100 mg/dL [facility] LDL [Mass/Vol] [facility] (01620) Cholesterol non 145 mg/dL (H) [facility] HDL [Mass/Vol] [facility] (03612) Cholesterol.tota 5.3 {ratio} (H) [facility] l/Cholesterol in [facility] HDL [Mass ratio] [facility] (98226) CO2 [Moles/Vol] 32 mmol/L (N) 23 - 29 mmol/L [facility] (49292) Color (U) 08/06~Clear~[place] (no code) [facility] ow [facility] (53452) Creatinine 0.86 mg/dL (N) [facility] [Mass/Vol] [facility] (68667) GFR/1.73 sq M 83 (N) 90 - 120 [facility] predicted among mL/min/{1.73_m2} mL/min/{1.73_m2} [facility] MDRD [facility] (S/P/Bld) [Vol (86491) rate/Area] GFR/1.73 sq 71 (N) 90 - 120 [facility] th M.predicted MDRD mL/min/{1.73_m2} mL/min/{1.73_m2} [facility] (S/P/Bld) [Vol [facility] rate/Area] (03365) Globulin (S) 3.2 g/dL (N) 2 - 3.5 g/dL [facility] ealth [Mass/Vol] [facility] (93137) Glucose 104 mg/dL (H) 60 - 125 mg/dL [facility] [Mass/Vol] [facility] (08971) Potassium 4.4 mmol/L (N) 3.7 - 5.2 mmol/L [facility] [Moles/Vol] [facility] (47589) Protein 7.1 g/dL (N) 6.4 - 8.3 g/dL [facility] [Mass/Vol] [facility] (69259) Sodium 142 mmol/L (N) 135 - 145 mmol/L [facility] [Moles/Vol] [facility] (39109) Triglyceride 138 mg/dL (N) 0 - 150 mg/dL [facility] [Mass/Vol] [facility] (35858) Urea nitrogen 17 mg/dL (N) 7 - 20 mg/dL [facility] [Mass/Vol] [facility] (25248) Urea NOT APPLICABLE (no code) [facility] nitrogen/Creatin [facility] (82657) not yet categorized on 2019-08-23 COMMENT no information (no code) [facility] (24773) Prescribed Drug Hydrocodone (no code) [facility] [address] [facility] (92802) laboratory on 2019-08-23 Amphetamines Ql Negative (N) [facility] th (U) [facility] (19747) Benzodiazepines Negative (N) [facility] Ql (U) [facility] (18456) Benzoylecgonine Negative (N) [facility] Ql (U) [facility] (46421) Creatinine (U) 106.7 mg/dL (N) [facility] [Mass/Vol] [facility] (31111) Drug screen INCONSISTENT (A) [facility] comment (U) [facility] [Interp] [facility] (05927) Drug screen CONSISTENT (N) [facility] comment (U) [facility] [Interp] [facility] (52017) Noroxycodone 1029 (H) [facility] Confirm (U) [facility] [Mass/Vol] [facility] (65652) Opiates Ql (U) Negative (N) [facility] (58028) Oxidants Ql (U) Negative (N) [facility] [place] (21803) Oxycodone (U) Negative (N) [facility] [Mass/Vol] [facility] (87189) Oxycodone Ql (U) Positive (A) [facility] (71747) Oxymorphone (U) 188 (H) [facility] [Mass/Vol] [facility] (20535) pH (U) 7.6 [pH] (N) 4.6 - 8 [pH] [facility] (76555) Tetrahydrocannab Negative (N) [facility] inol Ql (U) [facility] (07490) not yet categorized on 2019-08-12 Exp date Negative (no code) [facility] (29271) not yet categorized on 2019-06-09 Exp date 12/2020 (no code) [facility] (57018) Lot 6.9~7.4~0993 (no code) [facility] (79645) not yet categorized on 2019-05-06 Exp date Negative (no code) [facility] (34420) not yet categorized on 2019-05-03 INTERPRETATION no information (no code) [facility] (29585) INTERPRETATION no information (no code) [facility] (45649) laboratory on 2019-05-03 A. <1:64 (no code) [facility] phagocytophilum [facility] IgG IF (S) [facility] [Titer] (00769) A. <1:20 (no code) [facility] phagocytophilum [facility] IgM IF (S) [facility] [Titer] (84966) Albumin 4.1 g/dL (N) 3.4 - 5.4 g/dL [facility] [Mass/Vol] [facility] (38643) Albumin/Globulin 1.5 {ratio} (N) 1 - 2.5 {ratio} [facility] [Mass ratio] [facility] (96616) ALP [Catalytic 101 U/L (N) 44 - 147 U/L [facility] activity/Vol] [facility] () ALT [Catalytic 14 U/L (N) 4 - 40 U/L Community ealth activity/Vol] [facility] (64730) AST [Catalytic 15 U/L (N) 10 - 34 U/L [facility] activity/Vol] [facility] () B. burgdorferi <0.90 (no code) [facility] Ab IA Qn (S) [facility] (40213) B. duncani Ab IF <1:256 (no code) [facility] lth (S) [Titer] [facility] (07182) B. microti IgG <1:64 (no code) [facility] (S) [Titer] [facility] () B. microti IgM <1:20 (no code) [facility] (S) [Titer] [facility] (86173) Band form 0.26 10*3/uL (N) 0 - 0.75 10*3/uL [facility] neutrophils [facility] (Bld) [#/Vol] [facility] () Band form 3.1 % (N) 0 - 3 % [facility] neutrophils/100 [facility] WBC (Bld) [facility] (68464) Basophils (Bld) 0.084 10*3/uL (N) 0 - 0.3 10*3/uL [facility] [#/Vol] [facility] (32734) Basophils/100 1.0 % (N) 0.5 - 1 % [facility] alth WBC (Bld) [facility] (85978) Bilirubin 0.5 mg/dL (N) 0.1 - 1.2 mg/dL [facility] [Mass/Vol] [facility] (24662) Calcium 9.5 mg/dL (N) 8.5 - 10.2 mg/dL [facility] [Mass/Vol] [facility] (04199) Chloride 108 mmol/L (N) 95 - 106 mmol/L [facility] [Moles/Vol] [facility] (00105) CO2 [Moles/Vol] 29 mmol/L (N) 23 - 29 mmol/L [facility] ity [facility] (82541) Creatinine 0.68 mg/dL (N) [facility] [Mass/Vol] [facility] (72525) E. chaffeensis <1:64 (no code) [facility] IgG IF (S) [facility] [Titer] [facility] (47037) E. chaffeensis no information (no code) [facility] IgG+IgM Ql [facility] (67899) E. chaffeensis <1:20 (no code) [facility] IgM IF (S) [facility] [Titer] [facility] (12103) Eosinophils 0.168 10*3/uL (N) 0.05 - 0.5 [facility] alth (Bld) [#/Vol] 10*3/uL [facility] (78105) Eosinophils/100 2.0 % (N) 1 - 4 % [facility] WBC (Bld) [facility] (84941) Erythrocyte 12.7 % (N) 11.6 - 14.6 % [facility] ealth distribution [facility] width (RBC) [facility] [Ratio] (99764) Free T4 1.1 ng/dL (N) 0.9 - 2.2 ng/dL [facility] [Mass/Vol] [facility] (38635) GFR/1.73 sq M 107 (N) 90 - 120 [facility] alth predicted among mL/min/{1.73_m2} mL/min/{1.73_m2} [facility] blacks MDRD [facility] (S/P/Bld) [Vol (45944) rate/Area] GFR/1.73 sq 92 (N) 90 - 120 [facility] th M.predicted MDRD mL/min/{1.73_m2} mL/min/{1.73_m2} [facility] (S/P/Bld) [Vol [facility] rate/Area] (44548) Globulin (S) 2.8 g/dL (N) 2 - 3.5 g/dL [facility] [Mass/Vol] [facility] (28902) Glucose 126 mg/dL (H) 60 - 125 mg/dL [facility] [Mass/Vol] [facility] (18109) Hematocrit (Bld) 42.1 % (N) 36.1 - 50.3 % [facility] ity Health [Volume [facility] (78733) Hemoglobin (Bld) 14.0 g/dL (N) 12.1 - 17.2 g/dL [facility] [Mass/[facility]] [facility] (93910) Lymphocytes 3.083 10*3/uL (N) 0.9 - 2.9 [facility]th (Bld) [#/Vol] 10*3/uL [facility] (96008) Lymphocytes/100 36.7 % (N) 20 - 40 % [facility] WBC (Bld) [facility] (19716) MCH (RBC) 30.3 pg (N) 27 - 31 pg [facility] [Entitic mass] [facility] (80416) MCHC (RBC) 33.3 g/dL (N) 32 - 36 g/dL [facility] [Mass/Vol] [facility] (97481) MCV (RBC) 91.1 fL (N) 80 - 100 fL [facility] [Entitic vol] [facility] (65907) Monocytes (Bld) 0.773 10*3/uL (N) 0.3 - 0.9 [facility] [#/Vol] 10*3/uL [facility] (92174) Monocytes/100 9.2 % (N) 2 - 8 % [facility] WBC (Bld) [facility] (40254) Morphology Mick no information (N) [facility] (Bld) [Interp] [facility] (37832) Neutrophils 4.032 10*3/uL (N) 1.7 - 7 10*3/uL [facility] (Bld) [#/Vol] [facility] (51375) Neutrophils/100 48.0 % (N) 40 - 60 % [facility] WBC (Bld) [facility] (00163) Platelet mean 10.1 fL (N) 7.2 - 11.7 fL [facility] volume (Bld) [facility] [Entitic vol] [facility] (98317) Platelets (Bld) 170 10*3/uL (N) 150 - 450 [facility] [#/Vol] 10*3/uL [facility] (81544) Platelets LM Ql ADEQUATE (N) [facility] th (Bld) [facility] (61597) Potassium 4.4 mmol/L (N) 3.7 - 5.2 mmol/L [facility] [Moles/Vol] [facility] (81978) Protein 6.9 g/dL (N) 6.4 - 8.3 g/dL [facility] [Mass/Vol] [facility] (63434) R. spotted fever NOT DETECTED (no code) [facility] IgG Ql (S) [facility] (10122) R. spotted fever NOT DETECTED (no code) [facility] IgM Ql (S) [facility] (62196) RBC (Bld) 4.62 10*6/uL (N) 4.2 - 6.1 [facility] [#/Vol] 10*6/uL [facility] (94898) Sodium 142 mmol/L (N) 135 - 145 mmol/L [facility] [Moles/Vol] [facility] (04887) TSH Qn 1.21 m[IU]/L (N) 0.4 - 4 m[IU]/L [facility] (59413) Urea nitrogen 16 mg/dL (N) 7 - 20 mg/dL [facility] [Mass/Vol] [facility] (64899) Urea NOT APPLICABLE (no code) [facility] nitrogen/Creatin [facility] [Mass ratio] [facility] (47346) WBC (Bld) 8.4 10*3/uL (N) 3.5 - 10.5 [facility] th [#/Vol] 10*3/uL [facility] (18655) other on 2019-02-21 Exp date 07/2020 (no code) [facility] (32598) Lot 7.4~6.7~0941 (no code) [facility] (87218) urinalysis on 2018-05-16 Urine, protein Negative (no code) 0 - 20 mg/dL [facility] (84528) other on 2018-05-16 Albumin/Globulin 1.3 (N) [facility] Ratio [facility] (36818) BLO Trace-intact (no code) [facility] (81792) Exp date 01 Sep 2018 (no code) [facility] (97848) Globulin 2.9 (N) [facility] (98848) GLU FINGERSTICK 110 (no code) [facility] (79326) KET 01/2019~Clear~Ye (no code) [facility] llow~None~Negati [facility] ve~Negative~Nega [facility] tive (40973) HI Negative (no code) [facility] (36589) Lot # [id number] (no code) [facility] (11774) Lot # [id number] (no code) [facility] (51885) PC 10 hrs (no code) [facility] (61408) SG 1.015 (no code) [facility] (54931) URO 0.2 (no code) [facility] (35706) metabolic panel on 2018-05-16 Alanine 15 U/L (N) 4 - 40 U/L [facility] aminotransferase [facility] (ALT) [facility] (85162) Albumin 3.8 g/dL (N) 3.4 - 5.4 g/dL [facility] (67459) Alkaline 80 U/L (N) 44 - 147 U/L [facility] alth phosphatase [facility] (ALP) [facility] (15957) Aspartate 13 U/L (N) 10 - 34 U/L [facility] aminotransferase [facility] (AST) [facility] (89984) Bilirubin 1.1 mg/dL (N) 0.1 - 1.2 mg/dL [facility] (total) [facility] (64625) BUN/Creatinine NOT APPLICABLE (no code) [facility] Ratio [facility] (14584) Calcium 9.4 mg/dL (N) 8.5 - 10.2 mg/dL [facility] (54851) Chloride 103 mmol/L (N) 95 - 106 mmol/L [facility] (79053) CO2 27 mmol/L (N) 23 - 29 mmol/L [facility] (02453) Creatinine 0.60 mg/dL (N) [facility] (47772) eGFR (black) 112 (N) 90 - 120 [facility] lt mL/min/{1.73_m2} mL/min/{1.73_m2} [facility] (73549) eGFR (MDRD) 97 (N) 90 - 120 [facility] mL/min/{1.73_m2} mL/min/{1.73_m2} [facility] (18249) Glucose 116 mg/dL (H) 60 - 125 mg/dL [facility] (27341) Potassium 4.2 mmol/L (N) 3.7 - 5.2 mmol/L [facility] (69505) Protein 6.7 g/dL (N) 6.4 - 8.3 g/dL [facility] (50629) Sodium 140 mmol/L (N) 135 - 145 mmol/L [facility] (46537) Urea nitrogen 13 mg/dL (N) 7 - 20 mg/dL [facility] (55158) hematology on 2018-05-16 Basophils 0.054 10*3/uL (N) 0 - 0.3 10*3/uL [facility] (18422) Basophils/100 0.5 % (N) 0.5 - 1 % [facility] (46570) Eosinophils 0.302 10*3/uL (N) 0.05 - 0.5 [facility] 10*3[facility]uL [facility] (65540) Eosinophils/100 2.8 % (N) 1 - 4 % [facility] leukocytes [facility] (72057) Erythrocytes 4.83 10*6/uL (N) 4.2 - 6.1 [facility]th (RBC) 10*6/uL [facility] (16032) Hematocrit (HCT) 44.7 % (N) 36.1 - 50.3 % [facility] (14720) Hemoglobin (HGB) 15.0 g/dL (N) 12.1 - 17.2 g/dL [facility] (94206) Lymphocytes 1.242 10*3/uL (N) 0.9 - 2.9 [facility] He alth 10*3/uL [facility] (71508) Lymphocytes/100 11.5 % (N) 20 - 40 % [facility] leukocytes [facility] (64903) MCH 31.1 pg (N) 27 - 31 pg [facility] th [facility] (51254) MCHC 33.6 g/dL (N) 32 - 36 g/dL [facility] (51490) MCV 92.5 fL (N) 80 - 100 fL [facility] ([facility] Monocytes 0.961 10*3/uL (H) 0.3 - 0.9 [facility] 10*3[facility] (61680) Monocytes/100 8.9 % (N) 2 - 8 % [facility] (41401) Neutrophils 8.24 10*3/uL (H) 1.7 - 7 10*3/uL [facility] (74742) Neutrophils/100 76.3 % (N) 40 - 60 % [facility] leukocytes [facility] (78248) pH of blood 7.0 [pH] (no code) 7.38 - 7.42 [pH] [facility] (93000) Platelet mean 10.7 fL (N) 7.2 - 11.7 fL [facility] volume (PMV) [facility] (52703) Platelets 112 10*3/uL (L) 150 - 450 [facility] th 10*3/uL [facility] (86113) RDW-CA 12.1 % (N) 11.6 - 14.6 % [facility] e[facility] (23487) WBC (Leukocytes) 10.8 10*3/uL (N) 3.5 - 10.5 [facility] 10*3/uL [facility] (05129) urinalysis on 2018-05-14 Urine culture, SEE NOTE (A) [facility] bacteria [facility] (64011) Urine, protein 2+ (no code) [facility] (88153) other on 2018-05-14 BLO 2+ (no code) [facility] (90207) Exp date Positive (no code) [facility] (23775) KET 09-16-2018~cloud (no code) [facility] lt y~dark [facility] yellow~strong~ne [facility] gative~negative~ (26618) negative Lot # [id number] (no code) [facility] (47617) SG 1.020 (no code) [facility] (52300) URO 0.2 (no code) [facility] (40336) hematology on 2018-05-14 pH of blood 6.0 [pH] (no code) 7.38 - 7.42 [pH] [facility] (05314) other on 2018-04-14 Albumin/Globulin 1.4 (N) no informatio n mass ratio Globulin 2.8 (N) no information Calculated mass conc (S) metabolic panel on 2018-04-14 Albumin mass 4.0 g/dL (N) 3.4 - 5.4 g/dL no inform ation conc ALP enzyme 91 U/L (N) 44 - [...] information M.predicted MDRD mL/min/{1.73_m2} mL/min/{1.73_m2} vol rate/area Glucose mass 159 mg/dL (H) 60 - [...] (no code) 12 - 18 g/dL Via [facility] (74874) urine urobilinogen measurement by automated test strip (mass/volume) on 2018-04-11 Urine, 1 (no code) Via [facility] urobilinogen [facility] (00583) urine total bilirubin detection by test strip on 2018-04-11 Urine, bilirubin Negative (no code) Via [facility] (96852) urine protein assay by test strip, semi-quantitativ e on 2018-04-11 Urine, protein Negative (no code) Via [facility] (91685) urine ph measurement by test strip on 2018-04-11 Urine, pH 5 [pH] (no code) 4.6 - 8 [pH] Via [facility] (89035) urine nitrite detection by test strip on 2018-04-11 Urine, nitrite Negative (no code) [facility] (79759) urine ketones detection by automated test strip on 2018-04-11 Urine, ketones Negative (no code) [facility] (59105) urine glucose detection by automated test strip on 2018-04-11 Urine, glucose Negative (no code) [facility] (63418) urine color determination on 2018-04-11 Urine, color YELLOW (no code) Via [facility] (45679) urine clarity determination on 2018-04-11 Urine, clarity CLEAR (no code) Via [facility] (83394) squamous epithelial cells detection in urine sediment by light microscopy on 2018-04-11 Urine, squamous no information (no code) Via [facility] cells [facility] in sediment [facility] (90639) specific gravity of urine by test strip on 2018-04-11 Urine, specific 1.030 (*) Via [facility] gravity [facility] (12504) serum or plasma urea nitrogen/creatin ine mass ratio on 2018-04-11 BUN/Creatinine 21 mg/mg (no code) 10 - 20 mg/mg [facility] (23466) serum or plasma urea nitrogen measurement (mass/volume) on 2018-04-11 Urea nitrogen 14 mg/dL (no code) 7 - 20 mg/dL Via [facility] (68464) serum or plasma sodium measurement (moles/volume) on 2018-04-11 Sodium 143 mmol/L (no code) 135 - 147 mmol/L Via [facility] (97843) serum or plasma potassium measurement (moles/volume) on 2018-04-11 Potassium 3.9 mmol/L (no code) 3.5 - 5.1 mmol/L Via [facility] (93258) serum or plasma glucose measurement (mass/volume) on 2018-04-11 Glucose 122 mg/dL (H) 60 - 125 mg/dL Via [facility] (13322) serum or plasma creatinine measurement with calculation of estimated glomerular filtration rate on 2018-04-11 eGFR (non-black) no information (no code) Via [facility] (77205) serum or plasma creatinine measurement (mass/volume) on 2018-04-11 Creatinine 0.66 mg/dL (no code) Via [facility] (57016) serum or plasma chloride measurement (moles/volume) on 2018-04-11 Chloride 109 mmol/L (H) 95 - 106 mmol/L Via [facility] (62820) serum or plasma calcium measurement (mass/volume) on 2018-04-11 Calcium 9.8 mg/dL (no code) 9 - 11 mg/dL Via [facility] (37073) serum or plasma anion gap determination (moles/volume) on 2018-04-11 Anion gap 13 mmol/L (no code) 3 - 11 mmol/L Via [facility] (19774) mucus detection in urine sediment by light microscopy on 2018-04-11 Urine, mucus SMALL (*) Via [facility] in [facility] (24868) leukocyte esterase on 2018-04-11 Urine, leukocyte Negative (no code) Via [facility] esterase [facility] (71289) erythrocytes detection in urine sediment by light microscopy on 2018-04-11 Urine, 1+ (*) Via [facility] erythrocytes [facility] (47400) crystals detection in urine sediment by light microscopy on 2018-04-11 Urine, crystals PRESENT (*) Via [facility] in [facility] (66070) complete urinalysis with reflex to culture on 2018-04-11 Complete NO (no code) Via [facility] urinalysis with Hospital reflex to [facility] culture (15782) casts detection in urine sediment by light microscopy on 2018-04-11 Urine, casts in NONE (no code) Via [facility] (76963) carbon dioxide on 2018-04-11 CO2 21 mmol/L (no code) 23 - 29 mmol/L Via [facility] (51692) calcium oxalate crystals detection in urine sediment by light microscopy on 2018-04-11 Calcium oxalate FEW (*) Via [facility] crystals [facility] detection in [facility] urine sediment (77666) by light microscopy blood neutrophils automated count (number/volume) on 2018-04-11 Neutrophils 5.0 10*3/uL (no code) 1.5 - 7.8 Via [facility] 10*3/uL [facility] (47385) blood monocytes/100 leukocytes on 2018-04-11 Monocytes/100 10 % (no code) 2 - 8 % Via [facility] leukocytes [facility] (56161) blood monocytes automated count (number/volume) on 2018-04-11 Monocytes 1.0 10*3/uL (no code) 0.2 - 1.1 Via [facility] 10*3/uL [facility] (29823) blood lymphocytes automated count (number/volume) on 2018-04-11 Lymphocytes 3.2 10*3/uL (no code) 0.85 - 4.1 Via [facility] 10*3/uL [facility] (43049) blood leukocytes automated count (number/volume) on 2018-04-11 WBC (Leukocytes) 9.4 10*3/uL (no code) 3.8 - 10.8 Via [facility] 10*3/uL [facility] (73172) blood hematocrit (volume fraction) on 2018-04-11 Hematocrit (HCT) 44 % (no code) 39 - 51 % Via [facility] (15702) blood erythrocytes automated count (number/volume) on 2018-04-11 Erythrocytes 4.64 10*6/uL (no code) 4.2 - 6.1 Via [facility] (RBC) 10*6/uL [facility] (12355) bacteria detection in urine sediment by light microscopy on 2018-04-11 Urine, bacteria TRACE (no code) Via [facility] in sediment [facility] (14091) automated urine sediment leukocyte count by microscopy (number/high power field) on 2018-04-11 Urine, RARE (no code) Via [facility] leukocytes in [facility] (20146) automated urine sediment erythrocyte count by microscopy (number/high power field) on 2018-04-11 Urine, no information (no code) Via [facility] erythrocytes in Hospital sediment by [facility] (16532) automated erythrocyte mean corpuscular volume on 2018-04-11 MCV 94 fL (no code) 80 - 100 fL Via [facility] (79856) automated erythrocyte mean corpuscular hemoglobin concentration measurement (mass/volume) on 2018-04-11 MCHC 34 g/dL (no code) 32 - 36 g/dL Via [facility] (52346) automated erythrocyte mean corpuscular hemoglobin (mass per erythrocyte) on 2018-04-11 MCH 32 pg (no code) 27 - 31 pg Via [facility] (27185) automated erythrocyte distribution width ratio on 2018-04-11 RDW-CA 13.0 % (no code) 11 - 15 % Via [facility] (06405) automated eosinophil count on 2018-04-11 Eosinophils 0.2 10*3/uL (no code) 0.05 - 1.5 Via [facility] 10*3/uL [facility] (08451) automated blood platelet mean volume measurement on 2018-04-11 Platelet mean 10.1 fL (no code) 7.2 - 11.7 fL Via [facility] (PMV) [facility] (45214) automated blood platelet count (count/volume) on 2018-04-11 Platelets 189 10*3/uL (no code) 150 - 400 Via [facility] 10*3/uL [facility] (26543) automated blood neutrophils/100 leukocytes on 2018-04-11 Neutrophils/100 53 % (no code) 40 - 60 % Via [facility] (99878) automated blood lymphocytes/100 leukocytes on 2018-04-11 Lymphocytes/100 34 % (no code) 20 - 40 % Via [facility] leukocytes [facility] (63468) automated blood eosinophils/100 leukocytes on 2018-04-11 Eosinophils/100 3 % (no code) 1 - 4 % Via [facility] (17231) automated blood basophils/100 leukocytes on 2018-04-11 Basophils/100 1 % (no code) 0.5 - 1 % Via [facility] (74121) automated blood basophil count (count/volume) on 2018-04-11 Basophils 0.1 10*3/uL (no code) 0 - 0.2 10*3/uL Via [facility] (69173) other on 2018-04-06 Exp date 09/01/2018 (no code) [facility] ([id number]) GLU FINGERSTICK 110 (no code) [facility] (24280) Lot # [id number] (no code) [facility] (22934) thyroid on 2018-03-03 Thyrotropin Qn 0.59 m[IU]/L (N) 0.4 - 4 m[IU]/L [facility]98224[facility] other on 2018-03-03 Cholesterol in 52 (N) [facility] LDL mass conc [facility] (39779) Cholesterol non 70 (N) [facility] HDL mass conc [facility] (22499) Cholesterol.tota 3.1 (N) [facility] lt l/Cholesterol in [facility] HDL mass ratio [facility] (10099) hematology on 2018-03-03 Basophils Auto 0.066 10*3/uL (N) 0 - 0.3 10*3/uL [facility] #/vol (Bld) [facility] (40866) Basophils/100 0.8 % (N) 0.5 - 1 % [facility] WBC Auto (Bld) [facility] (88124) Eosinophils Auto 0.249 10*3/uL (N) 0.05 - 0.5 [facility] #/vol (Bld) 10*3/uL [facility] (84377) Eosinophils/100 3.0 % (N) 1 - 4 % [facility] WBC Auto (Bld) [facility] (83394) Erythrocyte 12.6 % (N) 11.6 - 14.6 % [facility] distribution [facility] width Auto Ratio [facility] (RBC) (80433) Hematocrit Auto 44.4 % (N) 36.1 - 50.3 % [facility] Volume Fraction [facility] (Bld) [facility] (32694) Hemoglobin mass 14.8 g/dL (N) 12.1 - 17.2 g/dL [facility] conc (Bld) [facility] (18787) Lymphocytes Auto 2.15 10*3/uL (N) 0.9 - 2.9 [facility] #/vol (Bld) 10*3/uL [facility] (37793) Lymphocytes/100 25.9 % (N) 20 - 40 % [facility] WBC Auto (Bld) [facility] (83567) MCH Auto Entitic 31.2 pg (N) 27 - 31 pg [facility] mass (RBC) [facility] (67266) MCHC Auto mass 33.3 g/dL (N) 32 - 36 g/dL [facility] conc (RBC) [facility] (33911) MCV Auto Entitic 93.7 fL (N) 80 - 100 fL [facility] volume (RBC) [facility] (01938) Monocytes Auto 0.581 10*3/uL (N) 0.3 - 0.9 [facility] #/vol (Bld) 10*3/uL [facility] (00287) Monocytes/100 7.0 % (N) 2 - 8 % [facility] He alth WBC Auto (Bld) [facility] (25890) Neutrophils Auto 5.254 10*3/uL (N) 1.7 - 7 10*3/uL [facility] #[facility]vol (Bld[facility] (01854) Neutrophils/100 63.3 % (N) 40 - 60 % [facility] WBC Auto (Bld) [facility] (78794) Platelet mean 10.0 fL (N) 7.2 - 11.7 fL [facility] volume Auto [facility] Entitic [facility] (Bld) (82972) Platelets Auto 164 10*3/uL (N) 150 - 450 [facility] #/vol (Bld) 10*3/uL [facility] (73715) RBC Auto #/vol 4.74 10*6/uL (N) 4.2 - 6.1 [facility] (Bld) 10*6/uL [facility] (46135) WBC Auto #/vol 8.3 10*3/uL (N) 3.5 - 10.5 [facility] (Bld) 10*3/uL [facility] (12405) cardiac on 2018-03-03 Cholesterol in 33 mg/dL (L) [facility] HDL mass conc [facility] (85101) Cholesterol mass 103 mg/dL (N) 180 - 200 mg/dL Comm [facility] conc [facility] (60092) Triglyceride 94 mg/dL (N) 0 - 150 mg/dL [facility] (37113) urinalysis on 2017-12-28 Albumin DL <= 20 1.6 mg/dL (N) 0.2 - 1.9 mg/dL Comm [facility] mg/L mass conc [facility] (U) [facility] (16368) Color Nom (U) 09/2018~clear (no code) [facility] n~yellow [facility] (06259) Creatinine mass 121 mg/dL (N) [facility] conc (U) [facility] (96531) other on 2017-12-28 A:C (IN HOUSE) 30-300 (no code) [facility] (88451) CRE 30~50 (no code) [facility] (14729) Exp date 08/2019 (no code) [facility] (19326) Lot 0812 (no code) [facility] (73015) Lot # [id number] (no code) [facility] (79914) MICROALBUMIN/CRE 13 (N) [facility] ATININE RATIO, [facility] RANDOM URINE [facility] (48103) metabolic panel on 2017-12-28 Hemoglobin 6.9 % (no code) 0 - 5.7 % [facility] A1c/Hemoglobin.t [facility] fraction (Bld) (88290) other on 2017-10-28 CLINICAL no information (N) [facility] INFORMATION: 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 (Cervical or [facility] vaginal smear or (00193) scraping) Date of previous no information (N) [facility] (38179) Date of previous UNKNOWN (N) [facility] PAP smear [facility] (73015) Exp date Negative (no code) [facility] (55304) Exp date 10/2018 (no code) [facility] (07750) INFECTION: no information (N) [facility] (59414) Last menstrual AGE 55 (N) [facility] period start [facility] (44794) Lot # [id number] (no code) [facility] (88786) Specimen source Cervix (N) [facility] Cyto stain [facility] (Cervical or [facility] vaginal smear or (55395) scraping) Statement of no information (N) [facility] adequacy Cy[facility] (Cervical or (95558) vaginal smear or scraping) imm/path on 2017-10-28 Bacteria SEE NOTE (no code) [facility] identified Aer [facility] cx Nom (Genital [facility] specimen) (04286) Microscopic no information (N) [facility] observation Cyto [facility] Nom (Cvx) [facility] (40977) thyroid on 2017-03-24 TSH Qn 0.81 (no code) 03-24-2017 Not Available 12:30-0400 (19220) other on 2017-03-24 H. pylori IgG Ql Negative (no code) 03-24-2017 Not Avail able (S) 12:30-0400 (45537) other on 2017-03-18 E. CHAFFEENSIS Negative (no code) 03-18-2017 Not Availab le (HME) IGG TITER 15:10-0400 (65118) E. CHAFFEENSIS Negative (no code) 03-18-2017 Not Availab le (HME) IGM TITER 15:10-0400 (88645) Erythrocyte 12.8 % (no code) 11.6 - 14.6 % 03-18-2017 Not Av ailable distribution 15:10-0400 (84013) width (RBC) [Ratio] HGE IGG TITER Negative (no code) 03-18-2017 Not Availabl e 15:10-0400 (52625) HGE IGM TITER Negative (no code) 03-18-2017 Not Availabl e 15:0 (66544) LYME DISEASE AB, <0.80 (no code) 03-18-2017 Not Avail able QUANT, IGM 15:0 (58789) LYME IGG/IGM AB <0.91 (no code) 03-18-2017 Not Availa ble 15:0 (34959) MCHC (RBC) 33.2 g/dL (no code) 32 - 36 g/dL 03-18-2017 Not Avai lable [Mass/Vol] 15:0400 (06738) Platelet mean 10.5 fL (H) 7.2 - 11.7 fL 03-18-2017 Not Available volume (Bld) 15:0400 (13322) [Entitic vol] Rheumatoid [IU]/mL (no code) 0 - 15 [IU]/mL 03-18-2017 Not Av ailable factor Qn 15:0 (16084) RMSF, IGG, EIA Negative (no code) 03-18-2017 Not Availab le 15:0 (40353) MARGOTH MTN 0.44 (no code) 03-18-2017 Not Available SPOTTED FEVER, 15:0 (03287) IGM Urate [Mass/Vol] 4.3 mg/dL (no code) 3.5 - 7.2 mg/dL 03-18-2017 Not Available 15:0400 (29749) imm/path on 2017-03-18 Streptolysin O [IU]/mL (no code) 0 - 200 [IU]/mL 03-18-2017 N ot Available Ab Qn 15:0400 (77009) hematology on 2017-03-18 Basophils (Bld) 0.0 10*3/uL (no code) 0 - 0.3 10*3/uL 03-18-2017 Not Available [#/Vol] 15:10-0400 (65823) Basophils/100 0.40 % (no code) 0.5 - 1 % 03-18-2017 Not Avai lable WBC (Bld) 15:100400 (56975) Eosinophils 0.4 10*3/uL (no code) 0.05 - 0.5 03-18-2017 Not Christie ilable (Bld) [#/Vol] 10*3/uL 15:10-0400 (12371) Eosinophils/100 4.5 % (no code) 1 - 4 % 03-18-2017 Not Av ailable WBC (Bld) 15:0400 (36801) ESR (Bld) 7 mm/h (L) 03-18-2017 Not Available [Velocity] 15:0 (30780) Hematocrit (Bld) 44.9 % (no code) 36.1 - 50.3 % 03-18-2017 N ot Available [Volume 15: (45672) fraction] Hemoglobin (Bld) 14.9 g/dL (no code) 12.1 - 17.2 g/dL 03-18-2017 Not Available [Mass/Vol] 15:0400 (04943) Lymphocytes 2.43 10*3/uL (no code) 0.9 - 2.9 03-18-2017 Not Christie ilable (Bld) [#/Vol] 10*3/uL 15:0400 (80294) Lymphocytes/100 31.6 % (no code) 20 - 40 % 03-18-2017 Not Av ailable WBC (Bld) 15:0400 (49685) MCH (RBC) 30.8 pg (no code) 27 - 31 pg 03-18-2017 Not Availab le [Entitic mass] 15:0400 (45541) MCV (RBC) 93.0 fL (no code) 80 - 100 fL 03-18-2017 Not Availa ble [Entitic vol] 15:0400 (99814) Monocytes (Bld) 0.6 10*3/uL (no code) 0.3 - 0.9 03-18-2017 Not Available [#/Vol] 10*3/uL 15:10-0400 (95063) Monocytes/100 7.9 % (no code) 2 - 8 % 03-18-2017 Not Avai lable WBC (Bld) 15:0400 (51328) Neutrophils 4.28 10*3/uL (no code) 1.7 - 7 10*3/uL 03-18-2017 N ot Available (Bld) [#/Vol] 15:10-0400 (91813) Neutrophils/100 55.6 % (no code) 40 - 60 % 03-18-2017 Not Av ailable WBC (Bld) 15:10-0400 (72090) Platelets (Bld) 223 10*3/uL (no code) 150 - 450 03-18-2017 Not Available [#/Vol] 10*3/uL 15:100400 (89089) RBC (Bld) 4.83 10*6/uL (no code) 4.2 - 6.1 03-18-2017 Not Avail able [#/Vol] 10*6/uL 15:10-0400 (14016) WBC (Bld) 7.70 10*3/uL (no code) 3.5 - 10.5 03-18-2017 Not Avai lable [#/Vol] 10*3/uL 15:10-0400 (71678) other on 2017-02-08 FINAL CULTURE No Growth 48 (no code) 02-08-2017 Not Availab le RESULTS hours 20:05-0400 (43306) MEDIA PLATED Setup at 19:50 (no code) 02-08-2017 Not Availa ble on 02/08/2017 20:05-0400 (39630) PRELIM CULTURE No Growth 24 (no code) 02-08-2017 Not Availa ble RESULTS hours 20:05-0400 (08729) other on 2017-01-07 Cholesterol in 17 mg/dL (no code) 01-07-2017 Not Availab le VLDL [Mass/Vol] 10:44-0400 (78928) Cholesterol.tota 3.6 {ratio} (L) 01-07-2017 Not Avail able l/Cholesterol in 10:44-0400 (58881) HDL [Mass ratio] cardiac on 2017-01-07 Cholesterol 139 mg/dL (no code) 180 - 200 mg/dL 01-07-2017 Not Available [Mass/Vol] 10:44-0400 (15795) Cholesterol in 39 mg/dL (no code) 01-07-2017 Not Availab le HDL [Mass/Vol] 10:44-0400 (94430) Cholesterol in 83 mg/dL (no code) 0 - 100 mg/dL 01-07-2017 Not Available LDL [Mass/Vol] 10:44-0400 (08315) Triglyceride 87 mg/dL (no code) 0 - 150 mg/dL 01-07-2017 Not A vailable [Mass/Vol] 10:44-0400 (93708) urinalysis on 2017-01-05 Clarity (U) Clear (no code) 01-05-2017 Not Available 10:15-0400 (62963) Color (U) Yellow (no code) 01-05-2017 Not Available 10:15-0400 (20823) Epithelial 0-5/HPF (A) 01-05-2017 Not Available cells.squamous 10:15-0400 (95541) LM.HPF (Urine sed) [#/Area] Leukocyte Negative (no code) 01-05-2017 Not Available esterase Test 10:15-0400 (97006) strip Ql (U) Protein (U) Negative (no code) 0 - 20 mg/dL 01-05-2017 Not Christie ilable [Mass/Vol] 10:15-0400 (22532) RBC LM.HPF Rare/HPF (A) 01-05-2017 Not Available (Urine sed) 10:15-0400 (73107) [#/Area] Specific gravity 1.010 (no code) 01-05-2017 Not Avail able (U) [Rel 10:15-0400 (50086) density] WBC LM.HPF Few/HPF (A) 01-05-2017 Not Available (Urine sed) 10:15-0400 (54303) [#/Area] other on 2017-01-05 Albumin (U) <5.0 (no code) 01-05-2017 Not Available [Mass/Vol] 10:15-0400 (16902) Albumin BCG dye 4.0 (no code) 01-05-2017 Not Availa ble [Mass/Vol] 10:15-0400 (27878) Average glucose 134 (H) 01-05-2017 Not Availa ble Estimated from 10:15-0400 (78303) glycated hemoglobin mass conc (Bld) Bacteria LM Ql Trace (A) 01-05-2017 Not Availab le (Urine sed) 10:15-0400 (93131) Bilirubin N/A (A) 01-05-2017 Not Available Confirm Ql (U) 10:15-0400 (09959) Bilirubin Ql (U) Negative (no code) 01-05-2017 Not Avail able 10:0 (46440) Erythrocyte 12.6 % (no code) 11.6 - 14.6 % 01-05-2017 Not Av ailable distribution 10: (04855) width (RBC) [Ratio] GFR/1.73 sq 78 (no code) 90 - 120 01-05-2017 Not Availa ble M.predicted MDRD mL/min/{1.73_m2} mL/min/{1.73_m2} 10: (01259) (S/P/Bld) [Vol rate/Area] Globulin (S) 3.0 g/dL (no code) 2 - 3.5 g/dL 01-05-2017 Not Av ailable [Mass/Vol] 10: (40526) Glucose Test Negative (no code) 01-05-2017 Not Available strip (U) 10: (59629) [Mass/Vol] HCO3 (P) 25 (no code) 01-05-2017 Not Available [Moles/Vol] 10:0 (34801) Hemoglobin Ql Negative (no code) 01-05-2017 Not Availabl e (U) 10:0 (14069) Ketones (U) Negative (no code) 01-05-2017 Not Available [Mass/Vol] 10:0400 (88541) MCHC (RBC) 32.4 g/dL (no code) 32 - 36 g/dL 01-05-2017 Not Avai lable [Mass/Vol] 10:0 (30876) Nitrite Ql (U) Negative (no code) 01-05-2017 Not Availab le 10:0400 (62013) Osmolality Calc 292 (no code) 01-05-2017 Not Availa ble [Osmolality] 10:0 (76633) pH (U) 6.0 [pH] (no code) 4.6 - 8 [pH] 01-05-2017 Not Avail able 10:150400 (28548) Platelet mean 11.1 fL (H) 7.2 - 11.7 fL 01-05-2017 Not Available volume (Bld) 10:0 (65825) [Entitic vol] Urine Volume Urine Volume (no code) 01-05-2017 Not Availabl e Sufficient 10: (50186) (10mL) Urobilinogen Qn 0.2 (A) 01-05-2017 Not Availa ble (U) {Tosin'U}/dL 10: (40792) no information Urine Saved if (A) 01-05-2017 Not Avai lable Culture Needed 10: () (48hrs from time of collection) metabolic panel on 2017-01-05 ALP [Catalytic 71 U/L (no code) 44 - 147 U/L 01-05-2017 Not Available activity/Vol] 10: (54843) ALT [Catalytic 11 U/L (no code) 4 - 40 U/L 01-05-2017 Not Av ailable activity/Vol] 10: (56277) Anion gap 12 mmol/L (no code) 3 - 11 mmol/L 01-05-2017 Not Avai lable [Moles/Vol] 10: (79690) AST [Catalytic 14 U/L (no code) 10 - 34 U/L 01-05-2017 Not A vailable activity/Vol] 10: (23161) Bilirubin 0.4 mg/dL (no code) 0.1 - 1.2 mg/dL 01-05-2017 Not Av ailable [Mass/Vol] 10: (87718) Calcium 9.1 mg/dL (no code) 8.5 - 10.2 mg/dL 01-05-2017 Not A vailable [Mass/Vol] 10: (72790) Chloride 107 mmol/L (no code) 95 - 106 mmol/L 01-05-2017 Not A vailable [Moles/Vol] 10: (77592) Creatinine 0.75 mg/dL (no code) 01-05-2017 Not Available [Mass/Vol] 10: (42603) Glucose 136 mg/dL (H) 60 - 125 mg/dL 01-05-2017 Not Christie ilable [Mass/Vol] 10: (53217) HbA1c (Bld) 5.90 % (no code) 0 - 5.7 % 01-05-2017 Not Availa ble [Mass fraction] 10: (16942) Potassium 4.0 mmol/L (no code) 3.7 - 5.2 mmol/L 01-05-2017 Not Available [Moles/Vol] 10: (58845) Protein 7.0 g/dL (no code) 6.4 - 8.3 g/dL 01-05-2017 Not Christie ilable [Mass/Vol] 10: (07162) Sodium 140 mmol/L (no code) 135 - 145 mmol/L 01-05-2017 Not Available [Moles/Vol] 10:0 (03731) Urea nitrogen 15 mg/dL (no code) 7 - 20 mg/dL 01-05-2017 Not A vailable [Mass/Vol] 10: (83608) hematology on 2017-01-05 Basophils (Bld) 0.0 10*3/uL (no code) 0 - 0.3 10*3/uL 01-05-2017 Not Available [#/Vol] 10:0 (11696) Basophils/100 0.50 % (no code) 0.5 - 1 % 01-05-2017 Not Avai lable WBC (Bld) 10: (72431) Eosinophils 0.4 10*3/uL (no code) 0.05 - 0.5 01-05-2017 Not Christie ilable (Bld) [#/Vol] 10*3/uL 10:0 (21522) Eosinophils/100 5.4 % (no code) 1 - 4 % 01-05-2017 Not Av ailable WBC (Bld) 10:0 (53946) Hematocrit (Bld) 43.8 % (no code) 36.1 - 50.3 % 01-05-2017 N ot Available [Volume 10: (30814) fraction] Hemoglobin (Bld) 14.2 g/dL (no code) 12.1 - 17.2 g/dL 01-05-2017 Not Available [Mass/Vol] 10:0 (18404) Lymphocytes 2.74 10*3/uL (no code) 0.9 - 2.9 01-05-2017 Not Christie ilable (Bld) [#/Vol] 10*3/uL 10:15-0400 (64635) Lymphocytes/100 37.2 % (no code) 20 - 40 % 01-05-2017 Not Av ailable WBC (Bld) 10:150400 (35541) MCH (RBC) 30.9 pg (no code) 27 - 31 pg 01-05-2017 Not Availab le [Entitic mass] 10:150400 (53975) MCV (RBC) 95.2 fL (no code) 80 - 100 fL 01-05-2017 Not Availa ble [Entitic vol] 10:150400 (27301) Monocytes (Bld) 0.6 10*3/uL (no code) 0.3 - 0.9 01-05-2017 Not Available [#/Vol] 10*3/uL 10:150400 (83969) Monocytes/100 8.7 % (no code) 2 - 8 % 01-05-2017 Not Avai lable WBC (Bld) 10:150400 (70902) Neutrophils 3.55 10*3/uL (no code) 1.7 - 7 10*3/uL 01-05-2017 N ot Available (Bld) [#/Vol] 10:150400 (47964) Neutrophils/100 48.2 % (no code) 40 - 60 % 01-05-2017 Not Av ailable WBC (Bld) 10:150400 (82552) Platelets (Bld) 198 10*3/uL (no code) 150 - 450 01-05-2017 Not Available [#/Vol] 10*3/uL 10:15-0400 (97157) RBC (Bld) 4.60 10*6/uL (no code) 4.2 - 6.1 01-05-2017 Not Avail able [#/Vol] 10*6/uL 10:15-0400 (09228) WBC (Bld) 7.37 10*3/uL (no code) 3.5 - 10.5 01-05-2017 Not Avai lable [#/Vol] 10*3/uL 10:150400 (74501) Vital Signs Vital Sign Value Interpretation Reference Date Time Care Prov ider Facility (Normalized) (Normalized) Range BMI (Body Mass 32.23 kg/m2 (no code) 15 - 25 kg/m2 07-12-2018 W[place] BARBARA Community Index) 14:20-[address] ([address]) BMI (Body Mass 31.77 kg/m2 (no code) 15 - 25 kg/m2 05-26-2018 KR ISTIN Community Index) 16:30-0400 [place] [id number] [place] [address] (68264) BMI (Body Mass 31.87 kg/m2 (no code) 15 - 25 kg/m2 05-20-2018 IVON LORRAINEIE RODOLFO Community Index) 19:40-[address] ([address]) BMI (Body Mass 32.32 kg/m2 (no code) 15 - 25 kg/m2 05-16-2018 M ICHELE BLANCAS Community Index) 17:20-[address] [place] [address] (03065) BMI (Body Mass 32.38 kg/m2 (no code) 15 - 25 kg/m2 05-14-2018 IVON LORRAINEIE RODOLFO Community Index) 13:25-[address] ([address]909) BMI (Body Mass 32.38 kg/m2 (no code) 15 - 25 kg/m2 05-07-2018 Alphonse BRIDGES Community Index) 17:50-[address] [place] [address] (48337) BMI (Body Mass 32.38 kg/m2 (no code) 15 - 25 kg/m2 05-03-2018 M ICHELE BLANCAS Community Index) 10:40-[address] [place] [address] (59944) BMI (Body Mass 32.93 kg/m2 (no code) 15 - 25 kg/m2 04-14-2018 M ICHELE BLANCAS Community Index) 10:20-[address] [place] [address] (21672) BMI (Body Mass 32.66 kg/m2 (no code) 15 - 25 kg/m2 04-09-2018 KR ISTIN Community Index) 13:25-0400 [place] [id number] [place] [address] (18598) BMI (Body Mass 32.38 kg/m2 (no code) 15 - 25 kg/m2 04-06-2018 IVON SARINA REYNOLDS Community Index) 13:25-0400 EUCHA [address] [facility] (06008) Body height 172.72 cm (no code) cm 01-10-2019 [facility] 11:00-0400 [id number] (Other Health Center Phone: of [facility] ) [place] ([address]) Body mass 30.73 kg/m2 (no code) 15 - 25 kg/m2 01-10-2019 [facility] index (BMI) 11:00-0400 80600 (Other Health Center [Ratio] Phone: of [facility] ) [place] ([address]40) Body 97.9 [degF] (no code) 97.8 - 99.0 01-10-2019 [facility] temperature [degF] 11:000400 77376 (Other Health Cent er Phone: of [facility] ) [place] ([address]) Body 98.9 [degF] (no code) 97.8 - 99.0 07-12-2018 [facility] 14:20-0400 [facility] [address] [facility] [address] [facility] (31100) Body 97.4 [degF] (no code) 97.8 - 99.0 05-26-2018 PATRICK Community Temperature [degF] 16:30-0400 [facility] [phone] of [facility] (25519) Body 97.8 [degF] (no code) 97.8 - 99.0 05-20-2018 TONYA Community Temperature [degF] 19:40-0400 EUCHA [address] Health nter [facility] (30026) Body 98.9 [degF] (no code) 97.8 - 99.0 05-16-2018 EDIE CAMEJOY [facility] Temperature [degF] 17:20-0400 [address] [facility] (23713) Body 96.6 [degF] (no code) 97.8 - 99.0 05-14-2018 TONYA Community Temperature [degF] 13:25-0400 EUCHA [address] Health nter of [facility] ([address]) Body 97.7 [degF] (no code) 97.8 - 99.0 05-07-2018 BUD THERON ALVARES Community Temperature [degF] 17:50-0400 09[address] [facility] (51716) Body 98 [degF] (no code) 97.8 - 99.0 05-03-2018 EDIE Yee Community Temperature [degF] 10:40-0400 [address] [facility] ([address]505) Body 97.6 [degF] (no code) 97.8 - 99.0 04-09-2018 PATRICK [facility] Temperature [degF] 13:25-0400 [place] [id number] [facility] (91504) Body 98.3 [degF] (no code) 97.8 - 99.0 04-06-2018 RJ REYNOLDS [facility] Temperature [degF] 13:25-0400 [place] [address] Health nter [facility] (16817) Body weight 91.67 kg (no code) kg 01-10-2019 [facility] 11:00-0400 [id number] (Other Health Center Phone: of [facility] (32546) Height 172.72 cm (no code) cm 01-03-2019 [facility] mmunity 18:00-0400 [address] [facility] (95489) Height 172.72 cm (no code) cm 07-12-2018 EDIE Commu nity 14:20-[address] ([address]26) Height 172.72 cm (no code) cm 05-26-2018 PATRICK Commu nity 16:30-0400 [place] [phone] [facility] (65165) Height 172.72 cm (no code) cm 05-20-2018 RJ REYNOLDS Comm unity 19:40-[address] [place] [address] (02689) Height 172.72 cm (no code) cm 05-16-2018 EDIE BLANCAS [facility] 17:20-[address] [place] [address] (34161) Height 172.72 cm (no code) cm 05-14-2018 TONYA Comm unity 13:25-[address] ([address]127) Height 172.72 cm (no code) cm 05-07-2018 BUD Mcnair ommunity 17:50-[address] [place] [address] (30809) Height 172.72 cm (no code) cm 05-03-2018 EDIE BLANCAS [facility] 10:40-[address] [place] [address] (01685) Height 172.72 cm (no code) cm 04-14-2018 EDIE BLANCAS [facility] 10:20-[address] [place] [address] (25312) Height 172.72 cm (no code) cm 04-09-2018 PATRICK Commu nity 13:25-[address] ([address]2751) Height 172.72 cm (no code) cm 04-06-2018 RJ REYNOLDS Comm unity 13:25-[address] ([address]34) Pulse Oximetry 100 % (no code) 95 - 100 % 01-03-2019 ROSA PAREKH [facility] 18:00-[address] [place] [address] (65800) Weight 96.16 kg (no code) kg 07-12-2018 EDIE Velez ity 14:20-[address] (42859) Weight 94.8 kg (no code) kg 05-26-2018 PATRICK Commun ity 16:30-[address] ([address]353) Weight 95.07 kg (no code) kg 05-20-2018 RJ REYNOLDS Commu nity 19:40-[address] (87310) Weight 96.44 kg (no code) kg 05-16-2018 [facility] 17:20-[address] [place] [address] (04285) Weight 96.62 kg (no code) kg 05-14-2018 RJ REYNOLDS Commu nity 13:250400 [address] (42818) Weight 96.62 kg (no code) kg 05-07-2018 BUD Craig mmunity 17:50-0400 [address] [facility] (68321) Weight 96.62 kg (no code) kg 05-03-2018 EDIE BLANCAS C ommunity 10:40-[address] [place] [address] (37496) Weight 98.25 kg (no code) kg 04-14-2018 EDIE BLANCAS C ommunity 10:20-[address] [place] [address] (67640) Weight 97.43 kg (no code) kg 04-09-2018 PATRICK Velez ity 13:[address] (78637) Weight 96.62 kg (no code) kg 04-06-2018 RJ REYNOLDS Commu nity 13:[address] ([address]2956) Interventions No Information Plan of Treatment Normalized Care Care Detail Care Activity Date Care Provider F acility Activity (CHM) [facility] 11-04-2018 ROSA ALIS [phone] [facility] (28799) (CH) [facility] 06-09-2019 ROSA ALIS 6 [phone] [facility] (94187) Patient Education no information no information [facility] [phone] [facility] ([address]) Patient encounter [facility] 12-28-2019 ROSA ALIS [phone] [facility] procedure [facility] (12177) Patient encounter [facility] 12-08-2019 ROSA ALIS [phone] [facility] procedure [facility] (62916) Patient referral no information no information ROSA ALIS [phone] [facility] (84385) Goals Patient Goal Desired Goal no information no information Social History Normalized Code Original Code Date Value Tobacco smoking status Tobacco smoking status no information Smokes tobacco daily NHIS NHIS (finding) no information no information 09-07-2019 [...] Diagnosis Care Provi uche Organization Date Type 02-21-2019 ([facility]) Chronic Health Type 2 diabetes ROSA SNELL (n o phone) [facility] - Maintenance mellitus with other (no phone ) 02-21-2019 specified complication - 02-21-2019 01-20-2019 ([facility]) Chronic Health Type 2 diabetes ROSA SNELL (n o phone) [facility] - Maintenance mellitus without (no phone) 01-20-2019 complications - 01-20-2019 11-04-2018 ([facility]) Chronic Health Spondylolisthesis, ROSA SNELL (no phone) [facility] - Maintenance site unspecified (no phone) 11-04-2018 - 11-04-2018 08-02-2018 (IPT) Internal PCP Type 2 diabetes ROSA SNELL (no phone) [facility] - Transfer mellitus with other (no phone ) 08-02-2018 specified complication - 08-02-2018 01-03-2019 (SD) Same Day Pain in left shoulder ROSA SNELL (no phone) [facility] - (no phone) 01-03-2019 - 01-03-2019 05-06-2019 (WALK-IN) Walk-In Care Acute suppurative MARYA SANTA NOT (no [facility] - otitis media without [...] (WALK-IN) Walk-In Care Other chest pain ELIOT ALLY IA (no [facility] - phone) CARE (no phone) 02-20-2019 - 02-20-2019 01-14-2019 (WALK-IN) Walk-In Care Pain in left arm ELIOT ALLY IA (no [facility] - phone) CARE (no phone) 01-14-2019 - 01-14-2019 12-21-2018 (WALK-IN) Walk-In Care Neuralgia and KRISS LIVINGSTON TH (no [facility] - neuritis, unspecified phone) CARE (no phone) 12-21-2018 - 12-21-2018 10-09-2019 [facility] Acute upper BEAU KULKARNI (no [facility] CARE respiratory [...] WALK IN Pain in left foot BEAU ORELLAN A (no [facility] CARE phone) CARE (no phone) 07-12-2019 [facility] Other acute MARYA BERNOT (no [facility] CARE nonsuppurative otitis phone) CARE (no phone) media, left ear 05-08-2019 [facility] Acute bronchitis, ELIOT RIVERA (no [facility] - CARE unspecified phone) CARE (no phone ) 05-08-2019 - 05-08-2019 10-17-2019 [facility] Type 2 diabetes ARLIN SY (no [facility] mellitus without phone) (no phone) complications 08-23-2019 [facility] Lesion of plantar ROSA ALIS (no phone) [facility] nerve, left lower limb (no phone) 06-09-2019 [facility] Type 2 diabetes ROSA ALIS ( no phone) [facility] - mellitus without (no phone) 06-09-2019 complications - 06-09-2019 05-25-2019 [facility] Mastodynia ARLIN PRICE (no [facility] - phone) (no phone) 05-25-2019 - 05-25-2019 08-11-2018 Consultation for Other spondylosis with ROSA ALIS (no phone) [facility] - laboratory medicine radiculopathy, (no phone ) 08-11-2018 cervical region - 08-11-2018 01-21-2020 Emergency department no information KADIE NASSAR [facility] - patient visit (no phone) [facility] 01-21-2020 CRYPTOLOGIC TECHNICIAN TECHNICAL (no phone) KHOA L (no phone) [facility]ADOR CRYPTOLOGIC TECHNICIAN TECHNICAL (no phone) KHOA L SALVADOR CRYPTOLOGIC TECHNICIAN TECHNICAL (no phone) KHOA L SALVADOR CRYPTOLOGIC TECHNICIAN TECHNICAL (no phone) KHOA L SALVADOR CRYPTOLOGIC TECHNICIAN TECHNICAL (no phone) KHOA L SALVADOR CRYPTOLOGIC TECHNICIAN TECHNICAL (no phone) KHOA L SALVADOR CRYPTOLOGIC TECHNICIAN TECHNICAL (no phone) KHOA L SALVADOR CRYPTOLOGIC TECHNICIAN TECHNICAL (no phone) 09-07-2019 Emergency department no information (no phone) [facility] - patient visit Hospital (no phone) 09-07-2019 09-06-2019 Emergency department no information KADIE NASSAR [facility] - patient visit (no phone) [facility] [place] 09-07-2019 (no phone) 09-15-2018 Emergency department no information TRAVIS Cunha APRN, BA SILVIA no organization name - patient visit Work Phone: 09-15-2018 09-15-2018 Emergency department no information TRAVIS MENSAH (no [facility] - patient visit phone) [facility] 09-15-2018 (no phone) 05-01-2018 Emergency department no information KADIE WARD no organization name - patient visit Work Phone: 05-01-2018 05-01-2018 Emergency department no information KADIE WARD MD [facility] - patient visit (no phone) [facility] 05-01-2018 (no phone) 04-11-2018 Emergency department no information TRAVIS VEGA no organization name - patient visit Work Phone: 04-12-2018 TRAVIS CANDELARIA 04-11-2018 Emergency department no information TRAVIS RUIZN (no [facility] - patient visit phone) [facility] 04-11-2018 (no phone) 12-12-2017 Emergency department no information no name no organization name - patient visit 12-12-2017 12-12-2017 Emergency department no information KHURRAM GRIJALVA MD (no [facility] - patient visit phone) [facility] 12-12-2017 (no phone) 08-28-2017 Emergency department no information KADIE WARD MD [facility] - patient visit (no phone) [facility] 08-28-2017 (no phone) 07-12-2018 Follow-up encounter Malignant neoplasm of EDIE reyna Nash (no [facility] - left kidney, except phone) EDIE BLANCAS (no phone) 07-12-2018 renal pelvis (no phone) EDIE Sutton (no phone) 07-12-2018 07-19-2018 Patient encounter no information no name no or ganization name 05-26-2018 Patient encounter no information no name no or ganization name 05-20-2018 Patient encounter no information no name no or ganization name 05-16-2018 Patient encounter no information no name no or ganization name 05-14-2018 Patient encounter no information no name no or ganization name 05-12-2018 Patient encounter no information no name no or ganization name 05-07-2018 Patient encounter no information no name no or ganization name 05-03-2018 Patient encounter no information no name no or ganization name 05-01-2018 Patient encounter no information no name no or ganization name 04-21-2018 Patient encounter no information EDIE Butler APREdith TERESA EY no organization name [employer] Patient encounter no information no name no or ganization name 04-14-2018 04-11-2018 Patient encounter no information no name no or ganization name 04-09-2018 Patient encounter no information no name no or ganization name 04-06-2018 Patient encounter no information no name no or ganization name 03-07-2018 Patient encounter no information no name no or ganization name 03-03-2018 Patient encounter no information no name no or ganization name 02-22-2018 Patient encounter no information no name no or ganization name 02-18-2018 Patient encounter no information no name no or ganization name 01-21-2018 Patient encounter no information no name no or ganization name 12-28-2017 Patient encounter no information no name no or ganization name 12-12-2017 Patient encounter no information no name no or ganization name 11-03-2017 Patient encounter no information no name no or ganization name 10-28-2017 Patient encounter no information no name no or ganization name NEGATED Patient encounter no information no name no or ganization name 10-26-2017 09-29-2017 Patient encounter no information no name no or ganization name 09-27-2017 Patient encounter no information no name no or ganization name 09-24-2017 Patient encounter no information no name no or ganization name 08-27-2017 Patient encounter no information no name no or ganization name 08-18-2017 Patient encounter no information no name no or ganization name - 08-18-2017 08-06-2017 Patient encounter no information no name no or ganization name - 08-25-2017 07-10-2017 Patient encounter no information no name no or ganization name - 07-10-2017 05-18-2017 Patient encounter no information no name no or ganization name - 05-18-2017 05-27-2015 Patient encounter no information no name no or ganization name 05-21-2015 Patient encounter no information no name no or ganization name 04-11-2013 Patient encounter no information no name no or ganization name 05-02-2012 Patient encounter no information no name no or ganization name 02-27-2020 Patient encounter no information JAKE SHAH MD (no [facility] procedure phone) [facility] (no phone) 02-22-2020 Patient encounter no information TAMY WINTERS MD (n o [facility] procedure phone) [facility] (no phone) 02-13-2020 Patient encounter no information JAKE SHAH MD (no [facility] procedure phone) [facility] (no phone) 01-30-2020 Patient encounter no information JAKE SHAH MD (no [facility] procedure phone) [facility] (no phone) 01-21-2020 Patient encounter no information KHOA GONZALEZ (n o [facility] procedure phone) [facility] (no phone) 12-28-2019 Patient encounter Encounter for ROSA SNELL (no [facility] - procedure gynecological phone) (no phone) [facility] 12-28-2019 examination (general) ROSA ALIS (no phone) [place] (no phone) (routine) without [facility] abnormal findings (no phone) 12-08-2019 Patient encounter Lesion of plantar ABRAN DONNELL (no phone) [facility] procedure nerve, left lower limb (no phone) 11-13-2019 Patient encounter no information SARTHAK COELLO MD [facility] - procedure (no phone) [facility] 12-08-2019 (no phone) 11-06-2019 Patient encounter no information no name no or ganization name procedure 11-02-2019 Patient encounter no information no name no or ganization name procedure 10-31-2019 Patient encounter no information no name no or ganization name procedure 10-27-2019 Patient encounter no information no name no or ganization name procedure 10-25-2019 Patient encounter no information no name no or ganization name procedure 10-20-2019 Patient encounter no information no name no or ganization name procedure 10-17-2019 Patient encounter no information no name no or ganization name procedure 10-09-2019 Patient encounter no information no name no or ganization name procedure 09-30-2019 Patient encounter no information no name no or ganization name procedure 09-06-2019 Patient encounter no information no name no or ganization name procedure 08-31-2019 Patient encounter no information (no phone) Jessica hensley [facility] (no phone) 08-31-2019 Patient encounter no information ROSA D ALIS OUTPLACEMENT CONSULTANT (no [facility] procedure phone) [facility] (no phone) 08-24-2019 Patient encounter no information no name no or ganization name procedure 08-23-2019 Patient encounter no information no name no or ganization name procedure 08-12-2019 Patient encounter no information no name no or ganization name procedure 08-02-2019 Patient encounter no information no name no or ganization name procedure 06-09-2019 Patient encounter no information no name no or ganization name procedure 06-09-2019 Patient encounter no information no name no or ganization name procedure 05-31-2019 Patient encounter no information no name no or ganization name procedure 05-31-2019 Patient encounter no information ARLIN PRICE [facility] procedure OUTPLACEMENT CONSULTANT (no phone) [facility] (no phone) 05-25-2019 Patient encounter no information no name no or ganization name procedure 05-25-2019 Patient encounter no information no name no or ganization name procedure 05-08-2019 Patient encounter no information no name no or ganization name procedure 05-08-2019 Patient encounter no information no name no or ganization name procedure 05-06-2019 Patient encounter no information no name no or ganization name procedure 05-03-2019 Patient encounter no information no name no or ganization name procedure 05-03-2019 Patient encounter no information no name no or ganization name procedure 04-25-2019 Patient encounter no information no name no or ganization name procedure 04-14-2019 Patient encounter no information no name no or ganization name - procedure 04-14-2019 04-14-2019 Patient encounter no information ROSA D ALIS OUTPLACEMENT CONSULTANT (no [facility] [facility] - procedure phone) [facility] 04-14-2019 (no phone) 04-12-2019 Patient encounter no information no name no or ganization name procedure 04-07-2019 Patient encounter no information no name no or ganization name procedure 04-07-2019 Patient encounter no information no name no or ganization name procedure 04-04-2019 Patient encounter no information no name no or ganization name procedure 03-31-2019 Patient encounter no information no name no or ganization name procedure 03-29-2019 Patient encounter no information no name no or ganization name procedure 03-17-2019 Patient encounter no information no name no or ganization name procedure 03-14-2019 Patient encounter no information no name no or ganization name procedure 03-06-2019 Patient encounter no information no name no or ganization name procedure 03-06-2019 Patient encounter no information no name no or ganization name procedure 03-02-2019 Patient encounter no information no name no or ganization name procedure 02-27-2019 Patient encounter no information no name no or ganization name procedure 02-23-2019 Patient encounter no information no name no or ganization name procedure 02-21-2019 Patient encounter no information no name no or ganization name procedure 02-20-2019 Patient encounter no information no name no or ganization name procedure 02-15-2019 Patient encounter no information no name no or ganization name procedure 01-20-2019 Patient encounter no information no name no or ganization name procedure 01-16-2019 Patient encounter no information no name no or ganization name procedure 01-16-2019 Patient encounter no information ROSA D ALIS OUTPLACEMENT CONSULTANT (no [facility] procedure phone) [facility] (no phone) 01-10-2019 Patient encounter Encounter for general ROSASUSSY SNELL (no phone) [facility] - procedure adult medical (no phone) 01-10-2019 examination without - abnormal findings 01-10-2019 01-03-2019 Patient encounter no information no name no or ganization name procedure 12-29-2018 Patient encounter no information no name no or ganization name procedure 12-21-2018 Patient encounter no information no name no or ganization name procedure 12-12-2018 Patient encounter no information no name no or ganization name procedure 12-12-2018 Patient encounter no information KERRY FLOR (no [facility] procedure phone) [facility] (no phone) 11-22-2018 Patient encounter no information no name no or ganization name procedure 11-22-2018 Patient encounter no information ROSA D ALIS OUTPLACEMENT CONSULTANT (no [facility] procedure phone) [facility] (no phone) 11-04-2018 Patient encounter no information no name no or ganization name procedure 11-04-2018 Patient encounter no information ROSA D ALIS OUTPLACEMENT CONSULTANT (no [facility] procedure phone) [facility] (no phone) 09-15-2018 Patient encounter no information no name no or ganization name procedure 07-19-2018 Patient encounter no information EDIE R BLANCAS AP RN [facility] procedure (no phone) [facility] (no phone) 04-21-2018 Patient encounter no information EDIE R BLANCAS AP RN [facility] procedure (no phone) [facility] (no phone) 11-03-2017 Patient encounter no information EDIE R BLANCAS AP RN [facility] procedure (no phone) [facility] (no phone) 09-29-2017 Patient encounter no information EDIE R BLANCAS AP RN [facility] procedure (no phone) [facility] (no phone) 09-27-2017 Patient encounter no information EDIE R BLANCAS AP RN [facility] procedure (no phone) [facility] (no phone) 09-24-2017 Patient encounter no information EDIE R BLANCAS AP RN [facility] procedure (no phone) [facility] (no phone) 08-18-2017 Patient encounter no information MARGUERITE WAITE MD (n o [facility] - procedure phone) [facility] 08-18-2017 (no phone) 08-16-2017 Patient encounter no information MARGUERITE WAITE MD (n o [facility] - procedure phone) [facility] 08-16-2017 (no phone) 08-03-2017 Patient encounter no information no name no or ganization name - procedure 08-04-2017 07-31-2017 Patient encounter no information no name no or ganization name - procedure 08-01-2017 07-12-2017 Patient encounter no information no name no or ganization name procedure 06-29-2017 Patient encounter no information no name no or ganization name - procedure 06-29-2017 05-18-2017 Patient encounter no information DASIA SMILEY I [facility] - procedure (no phone) [facility] 05-18-2017 (no phone) 05-13-2017 Patient encounter no information FOREIGN SILVA LIME MIXER TENDER [facility] procedure (no phone) [facility] (no phone) 05-03-2017 Patient encounter no information MARGUERITE WAITE MD (n o [facility] procedure phone) [facility] (no phone) 04-29-2017 Patient encounter no information FOREIGN SILVA LIME MIXER TENDER [facility] procedure (no phone) [facility] (no phone) 03-24-2017 Patient encounter no information no name no or ganization name - procedure 03-25-2017 03-18-2017 Patient encounter no information no name no or ganization name - procedure 03-19-2017 02-15-2017 Patient encounter no information no name no or ganization name - procedure 03-10-2017 02-08-2017 Patient encounter no information no name no or ganization name - procedure 02-09-2017 02-05-2017 Patient encounter no information no name no or ganization name - procedure 02-05-2017 01-07-2017 Patient encounter no information no name no or ganization name - procedure 2017 01-05-2017 Patient encounter no information no name no or ganization name - procedure 01-06-2017 05-27-2015 Patient encounter no information WESTON ALCANTAR MD (no [facility] procedure phone) [facility] (no phone) 05-21-2015 Patient encounter no information WESTON ALCANTAR MD (no [facility] procedure phone) [facility] (no phone) 02-05-2020 Telephone encounter Spinal stenosis, ROSA ALIS (n o phone) [facility] cervical region (no phone) 01-22-2020 Telephone encounter no information ROSA ALIS (no phone) [facility] (no phone) 01-03-2020 Telephone encounter Spinal stenosis, ROSA ALIS (n o phone) [facility] cervical region (no phone) 12-08-2019 Telephone encounter no information ROSA ALIS (no phone) [facility] (no phone) 12-07-2019 Telephone encounter Spinal stenosis, ROSA ALIS (n o phone) [facility] cervical region (no phone) 12-02-2019 Telephone encounter no information ROSA ALIS (no phone) [facility] (no phone) 12-01-2019 Telephone encounter Spinal stenosis, ROSA ALIS (n o phone) [facility] cervical region (no phone) 11-01-2019 Telephone encounter Spinal stenosis, ROSA ALIS (n o phone) [facility] cervical region (no phone) 10-02-2019 Telephone encounter Spinal stenosis, ROSA ALIS (n o phone) [facility] cervical region (no phone) 09-11-2019 Telephone encounter no information ROSA ALIS (no phone) [facility] (no phone) 09-07-2019 Telephone encounter no information ROSA ALIS (no phone) [facility] (no phone) 08-31-2019 Telephone encounter Spinal stenosis, ROSA ALIS (n o phone) [facility] cervical region (no phone) 08-24-2019 Telephone encounter no information ROSA ALIS (no phone) [facility] (no phone) 08-23-2019 Telephone encounter no information ROSA ALIS (no phone) [facility] (no phone) 08-03-2019 Telephone encounter Spinal stenosis, ARLIN ROXY ORDAZ (no [facility] cervical region phone) ROSA ALIS (no (no phone) phone) 07-05-2019 Telephone encounter Spinal stenosis, ROSA ALIS (n o phone) [facility] cervical region (no phone) 07-05-2019 - 07-05-2019 06-06-2019 Telephone encounter Spinal stenosis, ROSA ALIS (n o phone) [facility] cervical region (no phone) 06-06-2019 - 06-06-2019 05-15-2019 Telephone encounter no information ELIOT RIVERA (n o [facility] - phone) CARE (no phone) 05-15-2019 - 05-15-2019 05-08-2019 Telephone encounter Spinal stenosis, ROSA ALIS (n o phone) [facility] cervical region (no phone) 05-08-2019 - 05-08-2019 04-25-2019 Telephone encounter no information ROSA ALIS (no phone) [facility] - (no phone) 04-25-2019 - 04-25-2019 04-06-2019 Telephone encounter Spinal stenosis, ROSA ALIS (n o phone) [facility] cervical region (no phone) 04-06-2019 - 04-06-2019 03-06-2019 Telephone encounter Spinal stenosis, ROSA ALIS (n o phone) [facility] - cervical region (no phone) 03-06-2019 - 03-06-2019 02-14-2019 Telephone encounter Type 2 diabetes ROSA ALIS (no phone) [facility] - mellitus without (no phone) 02-14-2019 complications - 02-14-2019 02-06-2019 Telephone encounter Allergic rhinitis due ROSA KI NG (no phone) [facility] - to pollen (no phone) 02-06-2019 - 02-06-2019 02-03-2019 Telephone encounter Spinal stenosis, ROSA ALIS (n o phone) [facility] - cervical region (no phone) 02-03-2019 - 02-03-2019 01-30-2019 Telephone encounter no information ROSA ALIS (no phone) [facility] - (no phone) 01-30-2019 - 01-30-2019 01-12-2019 Telephone encounter no information ROSA ALIS (no phone) [facility] (no - phone) 01-12-2019 - 01-12-2019 01-09-2019 Telephone encounter no information ROSA ALIS (no phone) [facility] - (no phone) 01-09-2019 - 01-09-2019 01-06-2019 Telephone encounter no information ROSA ALIS (no phone) [facility] - (no phone) 01-06-2019 - 01-06-2019 01-04-2019 Telephone encounter Spinal stenosis, ROSA ALIS (n o phone) [facility] - cervical region (no phone) 01-04-2019 - 01-04-2019 12-26-2018 Telephone encounter no information ROSA ALIS (no phone) [facility] - (no phone) 12-26-2018 - 12-26-2018 12-08-2018 Telephone encounter Spinal stenosis, ROSA ALIS (n o phone) [facility] - cervical region (no phone) 12-08-2018 - 12-08-2018 11-18-2018 Telephone encounter Chronic pain syndrome ROSA KI NG (no phone) [facility] - (no phone) 11-18-2018 - 11-18-2018 11-15-2018 Telephone encounter no information ROSA ALIS (no phone) [facility] - (no phone) 11-15-2018 - 11-15-2018 11-09-2018 Telephone encounter Spinal stenosis, ROSA ALIS (n o phone) [facility] - cervical region (no phone) 11-09-2018 - 11-09-2018 10-10-2018 Telephone encounter Hyperlipidemia, JULIO ELLSWORTHL (no phone) [facility] - unspecified ROSA ALIS (no phone) (no jenny ne) 10-10-2018 - 10-10-2018 10-04-2018 Telephone encounter no information ROSA ALIS (no phone) [facility] - (no phone) 10-04-2018 - 10-04-2018 09-30-2018 Telephone encounter no information ROSA ALIS (no phone) [facility] - (no phone) 09-30-2018 - 09-30-2018 09-21-2018 Telephone encounter no information ROSA ALIS (no phone) [facility] - (no phone) 09-21-2018 - 09-21-2018 09-12-2018 Telephone encounter Other spondylosis with TA JOSIAH MADL (no phone) [facility] - radiculopathy, (no phone) 09-12-2018 cervical region - 09-12-2018 08-12-2018 Telephone encounter Other spondylosis with TR ISTA ALIS (no phone) [facility] - radiculopathy, (no phone) 08-12-2018 cervical region - 08-12-2018 08-10-2018 Telephone encounter Other spondylosis with TR ISTA ALIS (no phone) [facility] - radiculopathy, (no phone) 08-10-2018 cervical region - 08-10-2018 08-08-2018 Telephone encounter Spondylolisthesis, ROSA ALIS (no phone) [facility] - site unspecified (no phone) 08-08-2018 - 08-08-2018 08-02-2018 Telephone encounter no information ROSA ALIS (no phone) [facility] - (no phone) 08-02-2018 - 08-02-2018 07-13-2018 Telephone encounter Spondylosis without EDIE HU (no [facility] - myelopathy or phone) EDIE BLANCAS (no phone ) 07-13-2018 radiculopathy, (no phone) EDIE - cervical region zzCAREY (no phone) 07-13-2018 07-08-2018 Telephone encounter no information EDIE BLANCAS (n o [facility] - phone) EDIE zzCAREY (no phone) 07-08-2018 (no phone) EDIE - BLANCAS (no phone) 07-08-2018 EDIE zzCAREY (no phone) 07-04-2018 Telephone encounter Essential (primary) EDIE CAR EY (no [facility] - hypertension phone) EDIE zzCAREY (no jenny ne) 07-04-2018 (no phone) EDIE - BLANCAS (no phone) 07-04-2018 EDIE zzCAREY (no phone) 06-10-2018 Telephone encounter Spondylosis without EDIE CAR EY (no [facility] - myelopathy or phone) EDIE zzCAREY (no jenny ne) 06-10-2018 radiculopathy, (no phone) EDIE - cervical region zzCAREY (no phone) 06-10-2018 02-07-2020 no information Encounter for other no name (no phone) preprocedural examination no information Encounter for other no name no organiz ation name preprocedural examination no information Encounter for general no name no organ ization name adult medical examination without abnormal findings Medical Equipment Equipment [...] Value Medicaid no information Unknown no information ([id number]) Evaluation note Note Type Note Facility Evaluation No Assessments Information Available A scension note [facility] ([id number]) History general Narrative - Reported Note Type [...] entry 8 History Hospitaliz heart attack x3 [id number] ation History Hospitaliz Surgerys ation History Hospitaliz left kidney removal 06/2018 ation History Hospitaliz surgery 09/27/2018 ation History [facility] ([id number]) Advance Directives Directive Description Start Date PERMISSION TO SHARE Directive Response Recor ded Date/Time Advance Directives No 7:21am Health Care Power of Radio Repairman No 05/18/17 7:21am Organ Donor No 05/18/17 7:21am Resuscitation Status Full Code 05/18/17 7:21am Directive Response Recor ded Date/Time Advance Directives No 1:57pm Health Care Power of Radio Repairman No 08/16/17 1:57pm Organ Donor No 05/18/17 7:21am Resuscitation Status DNR-Pt Request 08/16/17 1:57pm Directive Response Recor ded Date/Time Advance Directives No 7:21am Health Care Power of Radio Repairman No 08/27/17 7:21am Organ Donor No 08/27/17 7:21am Resuscitation Status Full Code 08/27/17 7:21am Directive Response Recor ded Date/Time Advance Directives No 12:19pm Health Care Power of Radio Repairman No 08/28/17 12:19pm Organ Donor No 08/28/17 12:19pm Resuscitation Status Full Code 08/28/17 12:19pm Directive Response Recor ded Date/Time Advance Directives No 9:20pm Health Care Power of Radio Repairman No 04/11/18 9:20pm Organ Donor No 04/11/18 9:20pm Resuscitation Status Full Code 04/11/18 9:20pm Directive Response Recor ded Date/Time Advance Directives No 6:05pm Health Care Power of Radio Repairman No 05/01/18 6:05pm Organ Donor No 05/01/18 6:05pm Resuscitation Status Full Code 05/01/18 6:05pm Directive Response Recor ded Date/Time Advance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
--- OUTSIDE RECORDS SUMMARY | 2020-03-26 15:23 | XMS REPORT ---
Author Author Amy SNELL Organization [facility] Address [address] [place] [address] Care Team Providers Care Maintenance Representative Name Role Phone KING ROSA Unavailable PROBLEMS Type Condition ICD9-CM Code [id number] Code Onset Dates Condition S tatus SNOMED Code Problem Cervical stenosis of spinal canal M48.02 Active 87192557 Problem Left kidney mass N28.89 Active 309 806605 Problem Chronic esophagogastric ulcer K25.7 Active 84930792 Problem Lumbago with sciatica, left side M54.42 Active 838130308 Problem Type 2 diabetes mellitus wit hout complication, without long-term current use of insulin E11.9 Active 722480727 Problem Seasonal allergic rhinitis due to pollen J30.1 Active 78348800 Problem Metabolic disorder, unspecified E88.9 Active 704588241 Problem Retrolisthesis of vertebrae M43.10 Ac tive 138052880 Problem Right renal mass N28.89 Active 309 809510 Problem Body mass index (BMI) of 32.0-32.9 in adult Z68.32 Active 264492619 Problem Pulmonary nodule R91.1 Active 427 404281 Problem Major depressive disorder, recurrent episode, moderate F33.1 Active 036630592 Problem Other obesity due to excess calories E66.09 Active 429141164 Problem 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 3 Active 908147903 Problem GERD without esophagitis K21.9 Activ e 100349832 Problem Renal cell carcinoma of left kidney C64.2 Active 347848729 Problem Hyperlipidemia, unspecified E78.5 Ac tive 98402832 Problem Type 2 diabetes mellitus with other specified complication E11.69 Active 26492325162496 Problem Other chronic pain G89.29 Active 8 4000050 Problem Essential hypertension I10 Active 52066273 Problem 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 Active 26556902 Problem Lumbago with sciatica, right side M54.41 Active 510457695768493 Problem Pain syndrome, chronic G89.4 Active 464741917 Problem Other spondylosis with radiculopathy, cervical region M47.22 Active 419710269 Problem Other spondylosis with myelopathy, cervical region M47.12 Active 33000850 Problem Osteoarthritis of spine with radiculopathy, cervical regio n M47.22 Active 843694436 Problem S/p nephrectomy Z90.5 Active 7446 26917 ALLERGIES Substance Reaction Event Type Date Status Gabapentin stomach upset Drug Allergy Dec, Active Feldene cintron's palsy Drug Allergy Dec, Active Doxycycline Monohydrate anaphylaxis Drug Allergy Dec, Acti ve Ketorolac Tromethamine Unknown Drug Allergy Dec, Activ e Hydrocodone-Acetaminophen anaphylaxis Drug Allergy Dec, Ac tive ENCOUNTERS Encounter Location Date Diagnosis [place] [address] [address] [place] [id number] [address] [place] [address] Jan, [place] [address] [address] Jan, Cervical stenosis of spinal canal M48.02 [place] [address] [place] [id number] [address] [place] [address] Jan, [place] [address] [place] [id number] [place] [address] Dec, [place] [address] [place] [id number] [address] [place] [address] Dec, Cervical stenosis of spinal canal M48.02 [place] [address] [place] [id number] [address] [place] [address] Dec, Well woman exam with routine gynecological exam Z01.419 [place] [address] [place] [id number] [address] [place] [address] Nov, [place] [address] [place] [id number] [address] [place] [address] Nov, Owens's neuroma of left luis alberto t G57.62 ; Onychomycosis B35.1 and Pain R52 [place] [address] [place] [id number] [address] [place] [address] 20 Nov, 2019 Cervical stenosis of spinal canal M48.02 [facility] [address] [id number] [address] [place] [address] [address], [address] [facility] [address] [id number] [address] [place] [address] 14 Nov, 2019 [facility] [address] [id number] [address] [place] [address] 14 Nov, 2019 Cervical stenosis of spinal canal M48.02 [facility] [address] [id number] [address] [place] [address] Oct, [facility] [address] [id number] [address] [place] [address] Oct, Cervical stenosis of spinal canal M48.02 [place] [address] [id number] [address] [place] [address] Sep, Type 2 diabetes mellitus wit hout complication, without long-term current use of insulin E11.9 ; Essential hypertension I10 and Non-recurrent acute suppurative otitis media of left ear without spontaneous rupture of tympanic membrane H66.002 [facility] [address] [id number] [address] [place] [address] Sep, Viral upper respiratory trac t infection J06.9 [place] [address] [id number] [address] [place] [address] Sep, Cervical stenosis of spinal canal M48.02 [facility] [address] [id number] [address] [place] [address] Sep, [facility] [address] [id number] [address] [place] [address] Sep, [facility] [address] [id number] [address] [place] [address] Sep, Non-recurrent acute suppurat cheri otitis media of both ears without spontaneous rupture of tympanic membranes H66.003 [facility] [address] [id number] [address] [place] [address] Aug, [facility] [address] [id number] [address] [place] [address] Aug, [facility] [address] [id number] [address] [place] [address] Aug, [facility] [address] [id number] [address] [place] [address] Aug, [facility] [address] [id number] [address] [place] [address] Aug, Cervical stenosis of spinal canal M48.02 [facility] [address] [id number] [address] [place] [address] Aug, [facility] [address] [id number] [address] [place] [address] Aug, [facility] [address] [id number] [address] [place] [address] Aug, Owens's neuroma of left luis alberto t G57.62 ; Long-term use of high-risk medication Z79.899 ; Osteoarthritis of spine with radiculopathy, cervical region M47.22 and Lumbar back pain with radiculopathy affecting right lower extremity M54.16 [facility] [address] [id number] [address] [place] [address] Jul, Bronchitis J40 and Sore thro at J02.9 [facility] [address] [id number] [address] [place] [address] Jul, Cervical stenosis of spinal canal M48.02 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 [facility] [place] [address] [place] [id number] [place] [address] Jun, Acute effusion of left ear H 65.192 and Vertigo R42 [place] [address] [place] [id number] [place] [address] Jun, Cervical stenosis of spinal canal M48.02 [place] [address] [address] May, Type 2 diabetes mellitus wit hout complication, without long-term current use of insulin E11.9 ; Encounter for immunization Z23 ; Cervical stenosis of spinal canal M48.02 and Major depressive disorder, recurrent episode, moderate F33.1 [place] [address] [address] May, Cervical stenosis of spinal canal M48.02 [place] [address] [address] May, Breast pain, left N64.4 [facility] [place] [address] [address] Apr, [facility] [place] [address] [address] Apr, Acute bronchitis, unspecifie d organism J20.9 ; Chest pain, unspecified type R07.9 and Shortness of breath R06.02 [place] [address] [address] Apr, Cervical stenosis of spinal canal M48.02 [facility] [place] [address] [address] Apr, Non-recurrent acute suppurat cheri otitis media of left ear without spontaneous rupture of tympanic membrane H66.002 and Sore throat J02.9 [facility] [place] [address] [address] Apr, Fatigue, unspecified type R5 3.83 and Enlarged lymph nodes in armpit R59.0 [facility] [address] [facility] [id number] [address] [place] [address] Apr, [facility] [address] [facility] [id number] [address] [place] [address] Apr, Axillary lymphadenopathy R59 .0 [place] [address] [facility] [id number] [address] [place] [address] Mar, Cervical stenosis of spinal canal M48.[id number] [place] [address] February, Cervical stenosis of spinal canal M48.02 [place] [address] [address] [facility] [id number] [address] [place] [address] February, Type 2 diabetes mellitus wit h other specified complication E11.69 and Left anterior shoulder pain M25.512 [facility] W[facility] IN [facility] [address] [place] [address] February, Left-sided chest wall pain R 07.89 ; Neck pain M54.2 and Fall, initial encounter W19.XXXA [place] [address] [address] [place] [id number] [place] [address] Jan, Type 2 diabetes mellitus wit hout complication, without long-term current use of insulin E11.9 and Type 2 diabetes mellitus with other specified complication E11.69 [place] [address] [place] [address] Jan, [place] [address] [place] [id number] [address] [place] [address] Jan, [place] [address] [place] [id number] [place] [address] Jan, Seasonal allergic rhinitis d ue to pollen J30.1 [place] [address] [place] [id number] [address] [place] [address] Jan, Cervical stenosis of spinal canal M48.02 [place] [address] [facility] [id number] [address] [place] [address] Jan, [facility] [address] [facility] [id number] [address] [place] [address] Jan, Type 2 diabetes mellitus wit hout complication, without long-term current use of insulin E11.9 ; Essential hypertension I10 ; Hyperlipidemia, unspecified E78.5 ; Other chronic pain G89.29 and Pain in left shoulder M25.512 [facility] [address] [facility] [id number] [address] [place] [address] 30 Dec, 2018 Left arm pain M79.602 ; Acut e pain of left shoulder M25.512 and Pain syndrome, chronic G89.[address] [place] [id number] [place] [id number] Dec, [place] [address] [facility] [id number] [address] [place] [address] Dec, Well woman exam without gyne cological exam Z00.00 and Breast cancer screening Z12.31 [facility] [address] [facility] [id number] [address] [place] [address] Dec, [place] [address] [facility] [id number] [address] [place] [address] Dec, [facility] [address] [facility] [id number] [address] [place] [address] Dec, [place] [address] [facility] [id number] [address] [place] [address] Dec, Cervical stenosis of spinal canal M48.02 [place] [address] [facility] [id number] [address] [place] [address] Dec, Left anterior shoulder pain M25.512 [facility] [address] [facility] [id number] [address] [place] [address] Dec, [facility] [address] [facility] [id number] [address] [place] [address] Dec, Nerve pain M79.2 [place] [address] [id number] [address] [place] [address] Nov, Cervical stenosis of spinal canal M48.02 [facility] [address] [id number] [address] [place] [address] Nov, Pain syndrome, chronic G89.4 [place] [address] [id number] [address] [place] [address] Oct, [place] [address] [id number] [address] [place] [address] Oct, Cervical stenosis of spinal canal M48.02 [place] [address] [id number] [address] [place] [address] Oct, Retrolisthesis of vertebrae M43.10 ; Cervical stenosis of spinal canal M48.02 and BMI 45.0-49.9, adult Z68.42 [place] [address] [id number] [address] [place] [address] Sep, Hyperlipidemia, unspecified E78.5 [place] [address] [id number] [address] [place] [address] Sep, [place] [address] [id number] [address] [place] [address] Sep, [place] [address] [id number] [address] [place] [address] Sep, [place] [address] [id number] [address] [place] [address] Aug, Other spondylosis with radic ulopathy, cervical region M47.22 [place] [address] [id number] [address] [place] [address] Jul, Other spondylosis with radic ulopathy, cervical region M47.22 [facility] [address] [id number] [address] [place] [address] Jul, Other spondylosis with radic ulopathy, cervical region M47.22 [facility] [address] [id number] [address] [place] [address] Jul, Other spondylosis with radic ulopathy, cervical region M47.22 [facility] [address] [id number] [address] [place] [address] Jul, Retrolisthesis of vertebrae M43.10 and Hyperlipidemia, unspecified E78.5 [facility] [address] [id number] [address] [place] [address] Jul, [facility] [address] [id number] [address] [place] [address] Jul, Type 2 diabetes mellitus wit h other specified complication E11.69 ; Osteoarthritis of spine with radiculopathy, cervical region M47.22 ; Other spondylosis with radiculopathy, cervical region M47.22 ; S/p nephrectomy Z90.5 and Essential hypertension I10 [place] [address] [id number] [address] [place] [address] Jun, Spondylosis of cervical hakan on without myelopathy or radiculopathy M47.812 [place] [address] [id number] [address] [place] [address] Jun, Renal cell carcinoma of left kidney C64.2 ; S/p nephrectomy Z90.5 ; Type 2 diabetes mellitus with other specified complication E11.69 ; Essential hypertension I10 and Osteoarthritis of spine with radiculopathy, cervical region M47.22 [facility] [address] [id number] [address] [place] [address] Jun, [facility] [address] [id number] [address] [place] [address] Jun, Essential hypertension I10 [facility] [address] [id number] [address] [place] [address] May, Spondylosis of cervical hakan on without myelopathy or radiculopathy M47.812 [place] [place] [id number] [place] [address] 16 May, 2018 [facility] [address] [place] [id number] [place] [address] May, [facility] [address] [place] [id number] [place] [address] May, Skin ulcer of buttock, limit ed to breakdown of skin L98.411 [facility] [address] [address] May, Fever, unspecified fever cau se R50.9 [place] [address] [address] Apr, Acute cystitis with hematuri a N30.01 and Dehydration E86.0 [place] [address] [address] Apr, [facility] [address] [address] Apr, Dysuria R30.0 and Acute cyst itis without hematuria N30.00 [place] [address] [address] Apr, [place] [address] [address] Apr, Spondylosis of cervical hakan on without myelopathy or radiculopathy M47.812 [place] [address] [address] Apr, [facility] [address] [address] Apr, Other spondylosis with radic ulopathy, cervical region M47.22 [place] [address] [place] [id number] [place] [address] Apr, [facility] [address] [address] Apr, Other spondylosis with radic ulopathy, cervical region M47.22 ; Other spondylosis with myelopathy, cervical region M47.12 and Renal cell carcinoma of left kidney C64.2 [place] [address] N [facility] [id number] [address] [place] [address] Apr, [facility] [address] [facility] [id number] [address] [place] [address] Apr, Lumbago with sciatica, right side M54.41 and Lumbago with sciatica, left side M54.42 [place] [address] [place] [id number] [address] [place] [address] Mar, Type 2 diabetes mellitus wit hout [...] specified complication E11.69 and Hyperlipidemia, unspecified E78.5 [facility] [address] [facility] [id number] [address] [place] [address] Mar, Acute suppurative otitis med ia of both ears without spontaneous rupture of tympanic membranes, recurrence not specified H66.003 [facility] [address] [facility] [id number] [address] [place] [address] Mar, [facility] [address] [facility] [id number] [address] [place] [address] Mar, Retrolisthesis of vertebrae M43.10 [facility] [address] [facility] [id number] [address] [place] [address] Mar, Low back pain, unspecified b ack pain laterality, unspecified chronicity, with sciatica presence unspecified M54.5 and Type 2 diabetes mellitus without complication, without long-term current use of insulin E11.9 [facility] [address] [place] [id number] [place] [address] February, [facility] [address] [place] [id number] [address] [place] [address] February, Retrolisthesis of vertebrae M43.10 [facility] [address] [place] [id number] [place] [address] February, Strain of neck muscle, initi al encounter S16.1XXA [place] [address] [address] February, Type 2 diabetes mellitus wit hout [...] Seasonal allergic rhinitis due to pollen J30.1 [facility] [address] [place] [id number] [address] [place] [address] February, Essential hypertension I10 ; Retrolisthesis of vertebrae M43.10 ; Body mass index (BMI) of 32.0-32.9 in adult Z68.32 and Type 2 diabetes mellitus without complication, without long-term current use of insulin E11.9 [place] [address] [place] [id number] [address] [place] [address] February, Type 2 diabetes mellitus wit hout complication, without long-term current use of insulin E11.9 [place] [address] [place] [id number] [address] [place] [address] Jan, Lumbago with sciatica, right side M54.41 [facility] [address] [facility] [id number] [address] [place] [address] Jan, Sore throat J02.9 [facility] [address] [facility] [id number] [address] [place] [address] 19 Dec, [facility] [address] [facility] [id number] [address] [place] [address] 19 Dec, 2017 Type 2 diabetes mellitus wit hout complication, without long-term current use of insulin E11.9 [facility] [address] [facility] [id number] [address] [place] [address] [address], [address] [facility] [address] [facility] [id number] [address] [place] [address] [address], [address] [facility] [address] [facility] [id number] [address] [place] [address] Dec, [facility] [address] [place] [id number] [place] [address] Dec, Type 2 diabetes mellitus wit hout [...] pollen J30.1 and GERD without esophagitis K21.9 [facility] [address] [facility] [place] [id number] [address] [place] [phone] Dec, [facility] [address] [facility] [place] [id number] [address] [place] [phone] Nov, [facility] [address] [place] [id number] [address] [place] [phone] Nov, [place] [address] [address] [facility] [place] [id number] [address] [place] [id number] Nov, [facility] [address] [facility] [place] [id number] [place] [phone] Nov, [facility] [address] [facility] [place] [id number] [address] [place] [phone] Oct, [facility] [address] [place] [id number] [place] [phone] Oct, [facility] [address] [facility] [place] [id number] [place] [id number] Oct, [facility] [address] [id number] Oct, Well woman exam with routine gynecological exam Z01.419 ; Screen for STD (sexually transmitted disease) Z11.3 ; Screening breast examination Z12.31 ; Type 2 diabetes mellitus without complication, without long-term current use of insulin E11.9 ; Other obesity due to excess calories E66.09 and Body mass index (BMI) of 32.0-32.[address] [facility] [address] [address] Oct, Ganglion of left wrist M67.[address] [facility] [address] [place] [id number] [address] [place] [phone] Oct, [facility] [address] [place] [id number] [address] [place] [phone] Oct, [facility] [address] [facility] [id number] [address] [place] [phone] Oct, Ganglion cyst M67.40 [facility] [address] [facility] [id number] [address] [place] [phone] Oct, [facility] [address] [facility] [place] [id number] [address] [place] [phone] Sep, [facility] [address] [place] [id number] [place] [phone] Sep, Major depressive disorder, r ecurrent episode, moderate F33.1 [facility] [address] [id number] [address] [place] [phone] Sep, [facility] [address] [facility] [place] [id number] [address] [place] [phone] Sep, Right renal mass N28.89 [facility] [address] [id number] [address] [place] [phone] Sep, [facility] [address] [id number] [address] [place] [phone] Sep, [facility] [address] [id number] [address] [place] [phone] Sep, Right renal mass N28.89 [facility] [address] [id number] [address] [place] [phone] Sep, [facility] [address] [facility] [place] [id number] [address] [place] [phone] Sep, [facility] [address] [id number] [address] [place] [phone] Sep, [facility] [address] [facility] [place] [id number] [address] [place] [phone] Sep, [facility] [address] [facility] [place] [id number] [address] [place] [phone] Sep, [facility] [address] [facility] [place] [id number] [address] [place] [phone] Sep, [facility] [address] [id number] [address] [place] [phone] Sep, Pulmonary nodule R91.1 [facility] [address] [facility] [id number] [address] [place] [phone] Aug, [facility] [address] [facility] [id number] [address] [place] [phone] Aug, Right renal mass N28.89 and Pulmonary nodule R91.1 [facility] [address] [place] [id number] [address] [place] [phone] 16 Aug, 2017 Essential hypertension I10 ; Right renal mass N28.89 ; Chronic gastric ulcer, unspecified whether gastric ulcer hemorrhage or perforation present K25.7 ; Spondylosis of cervical region without myelopathy or radiculopathy M47.812 ; Retrolisthesis of vertebrae M43.10 and Hospital discharge follow-up Z09 [place] [id number] [place] [id number] [address] [place] [phone] 14 Aug, 2017 [place] [address] [place] [id number] [address] [place] [phone] Aug, [place] [address] [place] [id number] [place] [phone] Aug, [place] [address] [place] [id number] [place] [phone] Aug, Pain syndrome, chronic G89.4 ; Lumbago with sciatica, right side M54.41 ; Lumbago with sciatica, left side M54.42 ; Other chronic pain G89.29 ; Cervicalgia M54.2 ; Controlled substance agreement signed Z79.899 and Essential hypertension I10 [place] [address] [place] [id number] [address] [place] [phone] Aug, [place] [address] [address] Jul, Encounter to establish care Z76.89 ; [...] Never Assessed REASON FOR VISIT Annual physical (female), had a pap last year just needs breast exam Nurys Lord MA PLAN OF CARE Activity Details Follow Up 1 Year or as indicated by artemio spain Reason:WWE VITAL SIGNS Height 68 in 2019-01-10 Weight 202.1 lbs 2019-01-10 Temperature 97.9 degrees Fahrenheit 2019-01-10 Heart Rate 70 bpm 2019-01-10 Respiratory Rate 18 2019-01-10 BMI 30.73 kg/m2 2019-01-10 Blood pressure systolic 144 mmHg 2019-01-10 Blood pressure diastolic 86 mmHg 2019-01-10 MEDICATIONS Medication Instructions Dosage Frequency Start Date End Date Duration S tatus Atorvastatin Calcium 20 mg Orally Once a day 1 tablet 24h 30 Active Pioglitazone HCl-Metformin HCl 15-500 MG Orally Once a day 1 tab let with a meal 24h 30 Active Sucralfate 1 GM Orally 4 times a day 1 tablet 6h Active Metoprolol Tartrate 100 MG TAKE ONE TABLET BY MOUTH TWICE DAILY WITH FOOD 30 Active Aspirin 81 MG Orally Once a day 1 tablet 24h Active Dexilant 60 MG TAKE ONE CAPSULE BY MOUTH ONCE DAILY 90 Active Tizanidine HCl 4 mg Orally Three times a day 1 capsule as needed 8h 30 Active Centrum Silver 50+Women - Active Sertraline HCl 25 MG TAKE ONE TABLET BY MOUTH ONCE DAILY 30 Active Accu-Chek Soft Touch Device - as directed 8h February, Active Onglyza 5 mg Orally Once a day 1 tablet 24h Active Accu-Chek Soft Touch Lancets - as directed 8h February, 30 days Active Fluticasone Propionate 50 MCG/ACT Nasally Once a day 1 spray in each nostril 24h Dec, Active Blood Glucose Test Strip - In Vitro 3 times a day as directed 8h February, Active Oxycodone-Acetaminophen 7.5-325 MG Orally every 6 hrs 1 tablet 6h Dec, Active RESULTS Name Result Date Reference Range Mammogram, Bilateral Screening 2019-01-16 PROCEDURES No Known procedures INSTRUCTIONS MEDICATIONS ADMINISTERED [...] entry 09/27/2018 Hospitalization History heart attack [id number] 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 Hospitalization History left kidney removal 06/2018 Hospitalization History surgery 09/27/2018
--- OUTSIDE RECORDS SUMMARY | 2020-03-26 15:23 | XMS REPORT ---
Author Author Amy SNELL Organization [facility] Address [address] [place] [address] Care Team Providers Care Development Intern Name Role Phone KING ROSA Unavailable PROBLEMS Type Condition ICD9-CM Code YOK11-YI Code Onset Dates Condition S tatus SNOMED Code Problem Cervical stenosis of spinal canal M48.02 Active 25617381 Problem Left kidney mass N28.89 Active 309 252527 Problem Chronic esophagogastric ulcer K25.7 Active 81451143 Problem Lumbago with sciatica, left side M54.42 Active 331707392 Problem Type 2 diabetes mellitus wit hout complication, without long-term current use of insulin E11.9 Active 984006079 Problem Seasonal allergic rhinitis due to pollen J30.1 Active 95427662 Problem Metabolic disorder, unspecified E88.9 Active 688252286 Problem Retrolisthesis of vertebrae M43.10 Ac tive 930865623 Problem Right renal mass N28.89 Active 309 254631 Problem Body mass index (BMI) of 32.0-32.9 in adult Z68.32 Active 133872571 Problem Pulmonary nodule R91.1 Active 427 533783 Problem Major depressive disorder, recurrent episode, moderate F33.1 Active 282350684 Problem Other obesity due to excess calories E66.09 Active 422870688 Problem 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 3 Active 396112679 Problem GERD without esophagitis K21.9 Activ e 514832482 Problem Renal cell carcinoma of left kidney C64.2 Active 792882645 Problem Hyperlipidemia, unspecified E78.5 Ac tive 72567700 Problem Type 2 diabetes mellitus with other specified complication E11.69 Active 76453539475509 Problem Other chronic pain G89.29 Active 8 5778327 Problem Essential hypertension I10 Active 23888472 Problem 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 Active 35784054 Problem Lumbago with sciatica, right side M54.41 Active 376526223112924 Problem Pain syndrome, chronic G89.4 Active 953000211 Problem Other spondylosis with radiculopathy, cervical region M47.22 Active 577021578 Problem Other spondylosis with myelopathy, cervical region M47.12 Active 80339066 Problem Osteoarthritis of spine with radiculopathy, cervical regio n M47.22 Active 499270249 Problem S/p nephrectomy Z90.5 Active 1616 68311 ALLERGIES No Information ENCOUNTERS Encounter Location Date Diagnosis [place] [address] [id number] [address] [place] [address] Jan, [place] [address] [id number] [address] [place] [address] Jan, Cervical stenosis of spinal canal M48.02 [place] [address] [facility] [id number] [address] [place] [id number] 06 Jan, 2020 [place] [address] [facility] [id number] [address] [place] [phone] 18 Dec, 2019 [place] [address] [id number] [address] [place] [phone] 18 Dec, 2019 Cervical stenosis of spinal canal M48.02 [place] [address] [facility] [id number] [address] [place] [address] Dec, Well woman exam with routine gynecological exam Z01.419 [place] [address] [facility] [id number] [address] [place] [address] Nov, [place] [address] [facility] [id number] [address] [place] [phone] Nov, Owens's neuroma of left luis alberto t G57.62 ; Onychomycosis B35.1 and Pain R52 [place] [address] [facility] [id number] [address] [place] [address] 20 Nov, 2019 Cervical stenosis of spinal canal M48.02 [place] [address] [facility] [id number] [address] [place] [phone] 15 Nov, 2019 [place] [address] [id number] [address] [place] [phone] 14 Nov, 2019 [facility] [address] [id number] [address] [place] [id number] 14 Nov, 2019 Cervical stenosis of spinal canal M48.02 [facility] [address] [id number] [address] [place] [id number] 15 Oct, 2019 [facility] [address] [id number] [address] [place] [address] Oct, Cervical stenosis of spinal canal M48.02 [facility] [address] [id number] [address] [place] [phone] Sep, Type 2 diabetes mellitus wit hout complication, without long-term current use of insulin E11.9 ; Essential hypertension I10 and Non-recurrent acute suppurative otitis media of left ear without spontaneous rupture of tympanic membrane H66.002 [facility] [address] [facility] [id number] [address] [place] [phone] Sep, Viral upper respiratory trac t infection J06.9 [facility] [address] [id number] [address] [place] [id number] Sep, Cervical stenosis of spinal canal M48.02 [facility] [address] [id number] [address] [place] [id number] 16 Sep, 2019 [facility] [address] [id number] [address] [place] [id number] Sep, [facility] [address] [id number] [address] [place] [phone] Sep, Non-recurrent acute suppurat cheri otitis media of both ears without spontaneous rupture of tympanic membranes H66.003 [facility] [address] [id number] [address] [place] [id number] Aug, [facility] [address] [facility] [id number] [address] [place] [phone] Aug, [facility] [address] [id number] [address] [place] [phone] Aug, [facility] [address] [id number] [address] [place] [address] Aug, [facility] [address] [id number] [address] [place] [address] Aug, Cervical stenosis of spinal canal M48.02 [facility] [address] [facility] [id number] [address] [place] [phone] Aug, [facility] [address] [facility] [id number] [address] [place] [address] Aug, [place] [address] [facility] [id number] [address] [place] [phone] Aug, Owens's neuroma of left luis alberto t G57.62 ; Long-term use of high-risk medication Z79.899 ; Osteoarthritis of spine with radiculopathy, cervical region M47.22 and Lumbar back pain with radiculopathy affecting right lower extremity M54.16 [facility] [address] [facility] [id number] [address] [place] [phone] Jul, Bronchitis J40 and Sore thro at J02.9 [place] [address] [facility] [id number] [address] [place] [address] Jul, Cervical stenosis of spinal canal M48.02 [facility] [address] [facility] [id number] [address] [place] [address] Jul, 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 [address] [facility] [id number] [address] [place] [address] Jun, Acute effusion of left ear H 65.192 and Vertigo R42 [place] [address] [facility] [address] [place] [address] Jun, Cervical stenosis of spinal canal M48.02 [place] [address] [address] May, Type 2 diabetes mellitus wit hout complication, without long-term current use of insulin E11.9 ; Encounter for immunization Z23 ; Cervical stenosis of spinal canal M48.02 and Major depressive disorder, recurrent episode, moderate F33.1 [place] [address] [address] May, Cervical stenosis of spinal canal M48.02 [place] [address] [address] May, Breast pain, left N64.4 [facility] [place] [address] [address] Apr, [facility] [place] [address] [address] Apr, Acute bronchitis, unspecifie d organism J20.9 ; Chest pain, unspecified type R07.9 and Shortness of breath R06.02 [place] [address] [address] Apr, Cervical stenosis of spinal canal M48.02 [facility] [place] [address] [address] Apr, Non-recurrent acute suppurat cheri otitis media of left ear without spontaneous rupture of tympanic membrane H66.002 and Sore throat J02.9 [facility] [place] [address] [address] Apr, Fatigue, unspecified type R5 3.83 and Enlarged lymph nodes in armpit R59.0 [place] [address] [place] [id number] [place] [address] Apr, [facility] [place] [address] [address] Apr, Axillary lymphadenopathy R59 .0 [facility] [address] [id number] [address] [place] [address] Mar, Cervical stenosis of spinal canal M48.02 [facility] [address] 340B [id number] [facility] [place] [address] February, Cervical stenosis of spinal canal M48.02 [facility] [address] [facility] [id number] [address] [place] [address] February, Type 2 diabetes mellitus wit h other specified complication E11.69 and Left anterior shoulder pain M25.512 [facility] [address] [facility] [id number] [address] [place] [address] February, Left-sided chest wall pain R 07.89 ; Neck pain M54.2 and Fall, initial encounter W19.XXXA [place] [address] [facility] [id number] [address] [place] [address] Jan, Type 2 diabetes mellitus wit hout complication, without long-term current use of insulin E11.9 and Type 2 diabetes mellitus with other specified complication E11.69 [place] [address] [facility] [id number] [address] [place] [address] Jan, [facility] [address] [id number] [address] [place] [address] Jan, [facility] [address] [facility] [id number] [address] [place] [phone] Jan, Seasonal allergic rhinitis d ue to pollen J30.1 [facility] [address] [id number] [address] [place] [address] Jan, Cervical stenosis of spinal canal M48.02 [facility] [address] [facility] [id number] [address] [place] [address] Jan, [facility] [address] [facility] [id number] [address] [place] [address] Jan, Type 2 diabetes mellitus wit hout complication, without long-term current use of insulin E11.9 ; Essential hypertension I10 ; Hyperlipidemia, unspecified E78.5 ; Other chronic pain G89.29 and Pain in left shoulder M25.512 [facility] [address] [facility] [id number] [address] [place] [id number] 30 Dec, 2018 Left arm pain M79.602 ; Acut e pain of left shoulder M25.512 and Pain syndrome, chronic G89.[id number] [place] [id number] Dec, [facility] [address] [facility] [id number] [address] [place] [address] Dec, Well woman exam without gyne cological exam Z00.00 and Breast cancer screening Z12.31 [place] [address] [facility] [id number] [address] [place] [address] Dec, [facility] [address] [facility] [id number] [address] [place] [phone] Dec, [facility] [address] [facility] [id number] [address] [place] [address] Dec, [facility] [address] [facility] [id number] [address] [place] [phone] Dec, Cervical stenosis of spinal canal M48.02 [facility] [address] [facility] [id number] [address] [place] [address] Dec, Left anterior shoulder pain M25.512 [facility] [address] [facility] [id number] [address] [place] [phone] Dec, [facility] [address] [facility] [id number] [address] [place] [id number] 06 Dec, 2018 Nerve pain M79.2 [facility] [address] [facility] [id number] [address] [place] [id number] Nov, Cervical stenosis of spinal canal M48.02 [facility] [address] [facility] [id number] [address] [place] [id number] Nov, Pain syndrome, chronic G89.4 [facility] [address] [id number] [address] [place] [phone] Oct, [facility] [address] [id number] [address] [place] [id number] Oct, Cervical stenosis of spinal canal M48.02 [facility] [address] [id number] [address] [place] [phone] Oct, Retrolisthesis of vertebrae M43.10 ; Cervical stenosis of spinal canal M48.02 and BMI 45.0-49.9, adult Z68.42 [facility] [address] [id number] [address] [place] [address] Sep, Hyperlipidemia, unspecified E78.5 [facility] [address] [id number] [address] [place] [phone] Sep, [facility] [address] [id number] [address] [place] [address] Sep, [facility] [address] [id number] [address] [place] [phone] Sep, [facility] [address] [id number] [address] [place] [address] Aug, Other spondylosis with radic ulopathy, cervical region M47.22 [facility] [address] [id number] [address] [place] [phone] Jul, Other spondylosis with radic ulopathy, cervical region M47.22 [facility] [address] [id number] [address] [place] [address] Jul, Other spondylosis with radic ulopathy, cervical region M47.22 [facility] [address] [id number] [address] [place] [address] Jul, Other spondylosis with radic ulopathy, cervical region M47.22 [facility] [address] [id number] [address] [place] [address] Jul, Retrolisthesis of vertebrae M43.10 and Hyperlipidemia, unspecified E78.5 [facility] [address] [id number] [address] [place] [phone] Jul, [facility] [address] [id number] [address] [place] [phone] Jul, Type 2 diabetes mellitus wit h other specified complication E11.69 ; Osteoarthritis of spine with radiculopathy, cervical region M47.22 ; Other spondylosis with radiculopathy, cervical region M47.22 ; S/p nephrectomy Z90.5 and Essential hypertension I10 [facility] [address] [id number] [address] [place] [address] Jun, Spondylosis of cervical hakan on without myelopathy or radiculopathy M47.812 [place] [address] [facility] [id number] [address] [place] [address] Jun, Renal cell carcinoma of left kidney C64.2 ; S/p nephrectomy Z90.5 ; Type 2 diabetes mellitus with other specified complication E11.69 ; Essential hypertension I10 and Osteoarthritis of spine with radiculopathy, cervical region M47.22 [facility] [address] [id number] [address] [place] [address] Jun, [facility] [address] [id number] [address] [place] [address] Jun, Essential hypertension I10 [facility] [address] [id number] [address] [place] [id number] May, Spondylosis of cervical hakan on without myelopathy or radiculopathy M47.812 [facility] [address] [id number] [address] [place] [address] May, [facility] [address] [id number] [address] [place] [address] May, [facility] [address] [id number] [address] [place] [address] May, Skin ulcer of buttock, limit ed to breakdown of skin L98.411 [facility] [address] [place] [id number] [address] [place] [address] May, Fever, unspecified fever cau se R50.9 [place] [address] [place] [id number] [address] [place] [address] Apr, Acute cystitis with hematuri a N30.01 and Dehydration E86.0 [place] [address] [facility] [id number] [address] [place] [address] Apr, [facility] [address] [place] [id number] [place] [address] Apr, Dysuria R30.0 and Acute cyst itis without hematuria N30.00 [place] [address] [place] [id number] [address] [place] [phone] Apr, [place] [address] [place] [id number] [address] [place] [address] Apr, Spondylosis of cervical hakan on without myelopathy or radiculopathy M47.812 [place] [address] [place] [id number] [address] [place] [address] Apr, [facility] [address] [place] [id number] [address] [place] [address] Apr, Other spondylosis with radic ulopathy, cervical region M47.22 [facility] [address] [place] [id number] [address] [place] [address] Apr, [place] [address] [place] [id number] [address] [place] [address] Apr, Other spondylosis with radic ulopathy, cervical region M47.22 ; Other spondylosis with myelopathy, cervical region M47.12 and Renal cell carcinoma of left kidney C64.2 [place] [address] [place] [id number] [address] [place] [address] Apr, [place] [address] [facility] [id number] [address] [place] [address] Apr, Lumbago with sciatica, right side M54.41 and Lumbago with sciatica, left side M54.42 [place] [address] [facility] [id number] [address] [place] [address] Mar, Type 2 diabetes mellitus wit hout [...] specified complication E11.69 and Hyperlipidemia, unspecified E78.5 [facility] [address] [facility] [id number] [address] [place] [address] Mar, Acute suppurative otitis med ia of both ears without spontaneous rupture of tympanic membranes, recurrence not specified H66.003 [place] [address] [place] [id number] [address] [place] [address] Mar, [place] [address] [place] [id number] [address] [place] [address] Mar, Retrolisthesis of vertebrae M43.10 [facility] [address] [facility] [id number] [address] [place] [phone] Mar, Low back pain, unspecified b ack pain laterality, unspecified chronicity, with sciatica presence unspecified M54.5 and Type 2 diabetes mellitus without complication, without long-term current use of insulin E11.9 [place] [address] [facility] [id number] [address] [place] [address] February, [place] [address] [address] February, Retrolisthesis of vertebrae M43.10 [facility] [place] [address] [address] February, Strain of neck muscle, initi al encounter S16.1XXA [place] [address] [address] February, Type 2 diabetes mellitus wit hout [...] Seasonal allergic rhinitis due to pollen J30.1 [place] [address] [address] February, Essential hypertension I10 ; Retrolisthesis of vertebrae M43.10 ; Body mass index (BMI) of 32.0-32.9 in adult Z68.32 and Type 2 diabetes mellitus without complication, without long-term current use of insulin E11.9 [place] [address] [address] February, Type 2 diabetes mellitus wit hout complication, without long-term current use of insulin E11.9 [place] [address] [place] [id number] [address] [place] [address] Jan, Lumbago with sciatica, right side M54.41 [facility] [address] [address] Jan, Sore throat J02.9 [place] [address] [address] Dec, [facility] [address] [facility] [id number] [address] [place] [address] Dec, Type 2 diabetes mellitus wit hout complication, without long-term current use of insulin E11.9 [facility] [address] [facility] [id number] [address] [place] [address] Dec, [facility] [address] [facility] [id number] [address] [place] [phone] Dec, [facility] [address] [facility] [id number] [address] [place] [address] Dec, [place] [address] [address] Dec, Type 2 diabetes mellitus wit hout [...] pollen J30.1 and GERD without esophagitis K21.9 [place] [address] [place] [id number] [address] [place] [phone] Dec, [facility] [address] [facility] [id number] [address] [place] [address] Nov, [facility] [address] [facility] [id number] [address] [place] [phone] Nov, [facility] [address] [place] [id number] [address] [place] [phone] Nov, [facility] [address] [place] [id number] [address] [place] [phone] Nov, [facility] [address] [place] [id number] [address] [place] [phone] Oct, [facility] [address] [id number] [address] [place] [id number] Oct, [facility] [address] [facility] [id number] [address] [place] [id number] Oct, [facility] [address] [facility] [id number] [address] [place] [phone] Oct, Well woman exam with routine gynecological exam Z01.419 ; Screen for STD (sexually transmitted disease) Z11.3 ; Screening breast examination Z12.31 ; Type 2 diabetes mellitus without complication, without long-term current use of insulin E11.9 ; Other obesity due to excess calories E66.09 and Body mass index (BMI) of 32.0-32.9 in adult Z68.32 [place] [address] [facility] [id number] [address] [place] [id number] Oct, Ganglion of left wrist M67.4 [address] [facility] [facility] [address] [facility] [id number] [address] [place] [id number] Oct, [place] [address] [facility] [id number] [address] [place] [phone] Oct, [facility] [address] [facility] [id number] [address] [place] [id number] Oct, Ganglion cyst M67.40 [facility] [address] [facility] [id number] [address] [place] [phone] Oct, [facility] [address] [facility] [id number] [address] [place] [id number] Sep, [place] [address] [facility] [id number] [address] [place] [phone] Sep, Major depressive disorder, r ecurrent episode, moderate F33.1 [facility] [address] [facility] [id number] [address] [place] [id number] Sep, [facility] [address] [id number] [address] [place] [phone] Sep, Right renal mass N28.89 [facility] [address] [id number] [address] [place] [phone] Sep, [facility] [address] [id number] [address] [place] [phone] Sep, [facility] [address] [id number] [address] [place] [phone] Sep, Right renal mass N28.89 [facility] [address] [id number] [address] [place] [id number] Sep, [facility] [address] [id number] [address] [place] [phone] Sep, [facility] [address] [facility] [id number] [address] [place] [id number] Sep, [facility] [address] [facility] [id number] [address] [place] [phone] Sep, [facility] [address] [id number] [address] [place] [phone] Sep, [facility] [address] [facility] [id number] [address] [place] [id number] Sep, [facility] [address] [facility] [id number] [address] [place] [phone] Sep, Pulmonary nodule R91.1 [facility] [address] [facility] [id number] [address] [place] [id number] Aug, [facility] [address] [facility] [id number] [address] [place] [id number] Aug, Right renal mass N28.89 and Pulmonary nodule R91.1 [facility] [address] [facility] [id number] [address] [place] [phone] 16 Aug, 2017 Essential hypertension I10 ; Right renal mass N28.89 ; Chronic gastric ulcer, unspecified whether gastric ulcer hemorrhage or perforation present K25.7 ; Spondylosis of cervical region without myelopathy or radiculopathy M47.812 ; Retrolisthesis of vertebrae M43.10 and Hospital discharge follow-up Z09 [place] [address] [phone] 14 Aug, 2017 [place] [address] [address] [place] [id number] [place] [phone] Aug, [place] [address] [id number] Aug, [place] [address] [place] [id number] [place] [phone] Aug, Pain syndrome, chronic G89.4 ; Lumbago with sciatica, right side M54.41 ; Lumbago with sciatica, left side M54.42 ; Other chronic pain G89.29 ; Cervicalgia M54.2 ; Controlled substance agreement signed Z79.899 and Essential hypertension I10 [place] [address] [address] [place] [id number] [address] [place] [phone] 02 Aug, 2017 [place] [address] [phone] Jul, Encounter to establish care Z76.89 ; [...] SOCIAL HISTORY Never Assessed REASON FOR VISIT request return call PLAN OF CARE VITAL SIGNS [...] entry 09/27/2018 Hospitalization History heart attack [phone] 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 Hospitalization History left kidney removal 06/2018 Hospitalization History surgery 09/27/2018
[2020-03-26] MEDS ORDERED: HOLD METFORMIN - RECEIVED CONTRAST 20 ML VIAL IV SCH (15:30)
[2020-03-26] MEDS ORDERED: CATHETER FLUSH 10 ML SYR IV PRN ×2 (15:30→17:45)
[2020-03-26] MEDS ORDERED: NS 100 ML (IVPB) BAG IV ONE (15:30)
[2020-03-26] MEDS ORDERED: IOHEXOL 350 MG/ML 100 ML (OMNIPAQUE 350) VIAL IV ONE (15:30)
--- OUTSIDE RECORDS SUMMARY | 2020-03-26 15:30 | XMS REPORT | Continuity of Care Document ---
Demographics x Preferred Language Unknown Marital Status Unknown Zoroastrian Affiliation Unknown Race Unknown Ethnic Group Unknown Author Organization Unknown Address Unknown Phone Unavailable Allergies Active Description Code Type Severity Reaction Onset Reported/Identified Relationship to Patient Clinical Status Yes doxycycline 2748 Drug Allergy N/A N/A Yes Feldene 21133 Drug Allergy N/A N/A Yes hydrocodone 1554 Drug Allergy N/A N/A Yes DOXYCYCLINE HYCLATE DOXYCYCLINE HYCLATE SEVERE Yes FELDENE FELDENE SEVERE Yes HYDROCODONE-ACETAMINOPHEN HYDROCODONE-ACETAMIN SEVERE Yes DOXYCYCLINE HYCLATE SEVERE DERMATOLOGICAL - HIV Yes DOXYCYCLINE HYCLATE SEVERE SEVERE Yes FELDENE SEVERE OTHER Yes FELDENE SEVERE SEVERE Yes HYDROCODONE-ACETAMINOPHEN SEVERE DERMATOLOGICAL - HIV Yes HYDROCODONE-ACETAMINOPHEN SEVERE SEVERE Yes ROBAXIN MODERATE MODERATE Yes ROBAXIN MODERATE OTHER Yes doxycycline [id number] Drug Aller gy Unknown N/A 08/16/2017 Yes hydrocodone [id number] Drug Aller gy Unknown N/A 08/16/2017 Yes piroxicam [id number] Drug Allergy Unknown N/A 08/16/2017 Yes ketorolac [id number] Drug Allergy Moderate N/A 08/27/2017 Medications Medication Packaging Start Date St op Date Route Dosage Sig PROMETHAZINE VIAL INJ 25 MG/CC (PHENERGAN VIAL) MG 06/29/2017 06/29/2017 PRN ONCE MEPERIDINE SYRINGE INJ 50 MG /CC (DEMEROL SYRINGE) MG 06/29/2017 06/29/2017 ONCE&1827 Problems Date Dx Coded Attending Type Code Diagnosis Diagnosed By 09/16/1426 ROSA SNELL PIPEFITTER Ot M48.02 SPINAL STENOSIS, CERVICAL REGION 09/16/1426 ROSA SNELL PIPEFITTER Ot M54.41 LUMBAGO WITH SCIATICA, RIGHT SIDE 09/16/1426 ROSA SNELL PIPEFITTER Ot M54.42 LUMBAGO WITH SCIATICA, LEFT SIDE 09/16/1438 MODE MOISE, SARTHAK A Ot M54.16 RADICULOPATHY, LUMBAR REGION 06/17/2010 Ot [...] Ot V58.69 05/27/2015 LINDEN MOISE FAC, DASIA FACP CCDS Ot 272.4 05/27/2015 WESTON WRIGHT MD Ot 789.00 05/27/2015 WESTON WRIGHT MD Ot 793.11 05/28/2015 WESTON WRIGHT MD Ot 593 .9 06/05/2015 WESTON WRIGHT MD Ot 789.00 06/05/2015 WESTON WRIGHT MD Ot 793.11 06/13/2015 WESTON WRIGHT MD Ot 593 .9 02/05/2017 Weston Wright 719.41 PAIN IN JOINT INVOLVING SHOULDER REGION 02/05/2017 Weston Wright 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.4 BRACHIAL NEURITIS OR RADICULITIS NOS 02/05/2017 Weston Wright M25.512 PAIN IN LEFT SHOULDER 02/05/2017 Weston Wright M50.10 CERVICAL DISC DISORDER W RADICULOPATHY, UNSP CERVICAL REGION 02/05/2017 Jhon Altamirano 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.4 BRACHIAL NEURITIS OR RADICULITIS NOS 02/05/2017 Jhon Altamirano M50.10 CERVICAL DISC DISORDER W RADICULOPATHY, UNSP CERVICAL REGION 04/27/2017 Ot 250.00 ELSY B LUCIA WO COMPL, TYPE II OR UNSPEC TY 04/27/2017 Ot 272.4 HYPE RLIPIDEMIA NEC/NOS 04/27/2017 Ot V58.69 OTH MED,LT,CURRENT USE 04/27/2017 LINDEN MOISE FAC, ALI FACP CCDS Ot 272.4 HYPERLIPIDEMIA NEC/NOS 04/27/2017 WESTON WRIGHT MD Ot 789.00 ABDOMINAL PAIN, UNSPECIFIED SITE 04/27/2017 WESTON WRIGHT MD Ot 793.11 SOLITARY PULMONARY NODULE 04/27/2017 WESTON WRIGHT MD Ot 593 .9 RENAL URETERAL DIS NOS 04/29/2017 Ot 250.00 ELSY B LUCIA WO COMPL, TYPE II OR UNSPEC TY 04/29/2017 Ot 272.4 HYPE RLIPIDEMIA NEC/NOS 04/29/2017 Ot V58.69 OTH MED,LT,CURRENT USE 04/29/2017 LINDEN MOISE FAC, ALI FACP CCDS Ot 272.4 HYPERLIPIDEMIA NEC/NOS 04/29/2017 WESTON WRIGHT MD Ot 789.00 ABDOMINAL PAIN, UNSPECIFIED SITE 04/29/2017 WESTON WRIGHT MD Ot 793.11 SOLITARY PULMONARY NODULE 04/29/2017 WESTON WRIGHT MD Ot 593 .9 RENAL URETERAL DIS NOS 05/03/2017 Ot 250.00 ELSY B LUCIA WO COMPL, TYPE II OR UNSPEC TY 05/03/2017 Ot 272.4 HYPE RLIPIDEMIA NEC/NOS 05/03/2017 Ot V58.69 OTH MED,LT,CURRENT USE 05/03/2017 LINDEN MOISE FACC, DASIA CHACON CCDS Ot 272.4 HYPERLIPIDEMIA NEC/NOS 05/03/2017 WESTON WRIGHT MD Ot 789.00 ABDOMINAL PAIN, UNSPECIFIED SITE 05/03/2017 WESTON WRIGHT MD Ot 793.11 SOLITARY PULMONARY NODULE 05/03/2017 WESTON WRIGHT MD Ot 593 .9 RENAL URETERAL DIS NOS 05/03/2017 AUNG FOREIGN L RADIOLOGICAL ENGINEER Ot E11.9 TYPE 2 DIABETES MELLITUS WITHOUT COMPLIC 05/03/2017 BAIMA FOREIGN L RADIOLOGICAL ENGINEER Ot E78.4 OTHER HYPERLIPIDEMIA 05/03/2017 BAIMA, FOREIGN L RADIOLOGICAL ENGINEER Ot I 10 ESSENTIAL (PRIMARY) HYPERTENSION 05/03/2017 AUNG FOREIGN L RADIOLOGICAL ENGINEER Ot I25.10 ATHSCL HEART DISEASE OF [place] CORONARY 05/03/2017 ESTHER HORANHER L RADIOLOGICAL ENGINEER Ot I65.23 OCCLUSION AND STENOSIS OF BILATERAL [place] 05/03/2017 MOHINIMA FOREIGN L RADIOLOGICAL ENGINEER Ot R07.89 OTHER CHEST PAIN 05/13/2017 Ot 250.00 ELSY B LUCIA WO COMPL, TYPE II OR UNSPEC TY 05/13/2017 Ot 272.4 HYPE RLIPIDEMIA NEC/NOS 05/13/2017 Ot V58.69 OTH MED,LT,CURRENT USE 05/13/2017 LINDEN MOISE FACC, DASIA CHACON CCDS Ot 272.4 HYPERLIPIDEMIA NEC/NOS 05/13/2017 WESTON WRIGHT MD Ot 789.00 ABDOMINAL PAIN, UNSPECIFIED SITE 05/13/2017 WESTON WRIGHT MD Ot 793.11 SOLITARY PULMONARY NODULE 05/13/2017 WESTON WRIGHT MD Ot 593 .9 RENAL URETERAL DIS NOS 05/13/2017 MARGUERITE WAITE MD Ot Z01.81 8 ENCOUNTER FOR OTHER PREPROCEDURAL EXAMIN 05/13/2017 MARGUERITE WAITE MD Ot Z12.11 ENCOUNTER FOR SCREENING FOR MALIGNANT NE 05/13/2017 MARGUERITE WAITE MD Ot Z86.01 0 PERSONAL HISTORY OF COLONIC POLYPS 05/13/2017 MARGUERITE WAITE MD Ot Z87.11 PERSONAL HISTORY OF PEPTIC ULCER DISEASE 05/13/2017 BAIMA, FOREIGN L RADIOLOGICAL ENGINEER Ot E11.9 TYPE 2 DIABETES MELLITUS WITHOUT COMPLIC 05/13/2017 MOHINIFOREIGN PAZ RADIOLOGICAL ENGINEER Ot E78.4 OTHER HYPERLIPIDEMIA 05/13/2017 MOHINIFOREIGN PAZ L RADIOLOGICAL ENGINEER Ot I 10 ESSENTIAL (PRIMARY) HYPERTENSION 05/13/2017 MOHINIFOREIGN PAZ L RADIOLOGICAL ENGINEER Ot I25.10 ATHSCL HEART DISEASE OF [place] CORONARY 05/13/2017 MOHINIFOREIGN PAZ RADIOLOGICAL ENGINEER Ot I65.23 OCCLUSION AND STENOSIS OF [place]ATER[place] 05/13/2017 MOHINIFOREIGN PAZ L RADIOLOGICAL ENGINEER Ot R07.89 OTHER CHEST PAIN 05/18/2017 LINDEN MOISE FACC, ALI FACP CCDS Ot E11.9 TYPE 2 DIABETES MELLITUS WITHOUT COMPLIC 05/18/2017 LINDEN MOISE FACC, ALI FACP CCDS Ot E66.9 OBESITY, UNSPECIFIED 05/18/2017 LINDEN MOISE FACC, ALI FACP CCDS Ot I11.9 HYPERTENSIVE HEART DISEASE WITHOUT HEART 05/18/2017 LINDEN MOISE FACC, ALI FACP CCDS Ot I25.10 ATHSCL HEART DISEASE OF [place] CORONARY 05/18/2017 LINDEN MOISE FACC, ALI FACP [...] INDEX (BMI) 33.0-33.9, ADULT 05/18/2017 LINDEN MOISE FACC, ALI FACP CCDS Ot Z79.84 UNIVERSAL BANKER (CURRENT) USE OF ORAL HYPOGLYC 05/18/2017 LINDEN MOISE FACC, ALI FACP CCDS Ot Z79.899 OTHER [facility] (CURRENT) DRUG THERAPY 05/25/2017 MOHINIBRANDI FOREIGN Prince RADIOLOGICAL ENGINEER Ot E11.9 TYPE 2 DIABETES MELLITUS WITHOUT COMPLIC 05/25/2017 MOHINIBRANDI FOREIGN L RADIOLOGICAL ENGINEER Ot E78.4 OTHER HYPERLIPIDEMIA 05/25/2017 AUNG FOREIGN L RADIOLOGICAL ENGINEER Ot I 10 ESSENTIAL (PRIMARY) HYPERTENSION 05/25/2017 BAIFOREIGN PAZ RADIOLOGICAL ENGINEER Ot I25.10 ATHSCL HEART DISEASE OF [place] CORONARY 05/25/2017 FOREIGN HORAN RADIOLOGICAL ENGINEER Ot I65.23 OCCLUSION AND STENOSIS OF [place] 05/25/2017 FOREIGN HORAN RADIOLOGICAL ENGINEER Ot R07.89 OTHER CHEST PAIN 05/25/2017 FOREIGN HORAN RADIOLOGICAL ENGINEER Ot E11.9 TYPE 2 DIABETES MELLITUS WITHOUT COMPLIC 05/28/2017 LINDEN MOISE FACC, ALI FACP CCDS Ot E11.9 TYPE 2 DIABETES MELLITUS WITHOUT COMPLIC 05/28/2017 LINDEN MOISE FACC, ALI FACP CCDS Ot E66.9 OBESITY, UNSPECIFIED 05/28/2017 LINDEN MOISE FACC, ALI FACP CCDS Ot I11.9 HYPERTENSIVE HEART DISEASE WITHOUT HEART 05/28/2017 LINDEN MOISE FACC, ALI FACP CCDS Ot I25.10 ATHSCL HEART DISEASE OF [place] CORONARY 05/28/2017 LINDEN MOISE FACC, ALI FACP [...] MOISE FACC, ALI FACP CCDS Ot Z79.84 UNIVERSAL BANKER (CURRENT) USE OF ORAL HYPOGLYC 05/28/2017 LINDEN MOISE FACC, ALI FACP CCDS Ot Z79.899 OTHER [facility] (CURRENT) DRUG THERAPY 06/29/2017 Jhon Altamirano 924.20 CONTUSION OF FOOT 06/29/2017 Jhon Altamirano S90.31XA CONTUSION OF RIGHT FOOT, INITIAL ENCOUNTER 07/10/2017 ADA KONG 719.0 6 EFFUSION OF LOWER LEG JOINT 07/10/2017 ADA KONG 959.7 OTHER AND UNSPECIFIED INJURY TO KNEE, LEG, ANKLE, AND FOOT 07/10/2017 BATTAGLER, ADA W M25.4 61 EFFUSION, RIGHT KNEE 07/10/2017 ADA KONG A S89.9 1XA UNSPECIFIED INJURY OF RIGHT LOWER LEG, INITIAL ENCOUNTER 07/31/2017 W 906.3 LATE EFFECT OF CONTUSION 07/31/2017 W S90.31XS C ONTUSION OF RIGHT FOOT, SEQUELA 08/03/2017 W 729.5 PAIN IN LIMB 08/03/2017 W M79.671 PA IN IN RIGHT FOOT 08/16/2017 MARGUERITE WAITE MD Ot Z01.81 8 ENCOUNTER [...] GASTRITIS, UNSPECIFIED, WITHOUT BLEEDING 08/18/2017 MARGUERITE WAITE MD Ot K62.1 RECTAL POLYP 08/18/2017 MARGUERITE WAITE MD, Ot K64.1 SECOND DEGREE HEMORRHOIDS 08/18/2017 MARGUERITE WAITE MD, Ot Z12.11 ENCOUNTER FOR SCREENING FOR MALIGNANT NE 08/18/2017 MARGUERITE WAITE MD, Ot Z87.44 2 PERSONAL HISTORY OF URINARY CALCULI 08/25/2017 JAVIER BUSTAMANTE 715.16 OSTEOARTHROSIS, LOCALIZED, PRIMARY, INVOLVING LOWER LEG 08/25/2017 JAVIER BUSTAMANTE M17.11 UNILATERAL PRIMARY OSTEOARTHRITIS, RIGHT KNEE 08/27/2017 Ot 250.00 ELSY B LUCIA WO COMPL, TYPE II OR UNSPEC TY 08/27/2017 Ot 272.4 HYPE RLIPIDEMIA NEC/NOS 08/27/2017 Ot V58.69 OTH MED,LT,CURRENT USE 08/27/2017 LINDEN MOISE FACC, DASIA FACP CCDS Ot 272.4 HYPERLIPIDEMIA NEC/NOS 08/27/2017 WESTON WRIGHT MD Ot 789.00 ABDOMINAL PAIN, UNSPECIFIED SITE 08/27/2017 WESTON WRIGHT MD Ot 793.11 SOLITARY PULMONARY NODULE 08/27/2017 WESTON WRIGHT MD Ot 593 .9 RENAL URETERAL DIS NOS 08/27/2017 MARGUERITE WAITE MD, Ot Z01.81 8 ENCOUNTER FOR OTHER PREPROCEDURAL EXAMIN 08/27/2017 MARGUERITE WAITE MD, Ot Z12.11 ENCOUNTER FOR SCREENING FOR MALIGNANT NE 08/27/2017 MARGUERITE WAITE MD, Ot Z86.01 0 PERSONAL HISTORY OF COLONIC POLYPS 08/27/2017 MARGUERITE WAITE MD, Ot Z87.11 PERSONAL HISTORY OF PEPTIC ULCER DISEASE 08/27/2017 FOREIGN HORAN L RADIOLOGICAL ENGINEER Ot E11.9 TYPE 2 DIABETES MELLITUS WITHOUT COMPLIC 08/27/2017 FOREIGN HORAN L RADIOLOGICAL ENGINEER Ot E78.4 OTHER HYPERLIPIDEMIA 08/27/2017 ESTHER HORANHER L RADIOLOGICAL ENGINEER Ot I 10 ESSENTIAL (PRIMARY) HYPERTENSION 08/27/2017 ESTHER HORANHER L RADIOLOGICAL ENGINEER Ot I25.10 ATHSCL HEART DISEASE OF [place] CORONARY 08/27/2017 BAIFOREIGN PAZ L RADIOLOGICAL ENGINEER Ot I65.23 OCCLUSION AND STENOSIS OF [place] 08/27/2017 FOREIGN HORAN L RADIOLOGICAL ENGINEER Ot R07.89 OTHER CHEST PAIN 08/27/2017 FOREIGN HORAN L RADIOLOGICAL ENGINEER Ot E11.9 TYPE 2 DIABETES MELLITUS WITHOUT COMPLIC 08/27/2017 RICHIE BENTLEY MD, Ot E11 .9 TYPE 2 DIABETES MELLITUS WITHOUT COMPLIC 08/27/2017 RICHIE BENTLEY MD Ot F32 .9 MAJOR DEPRESSIVE DISORDER, SINGLE EPISOD 08/27/2017 RICHEI BENTLEY MD Ot F41 .9 ANXIETY DISORDER, UNSPECIFIED 08/27/2017 RICHIE BENTLEY MD, Ot I25 .2 OLD MYOCARDIAL INFARCTION 08/27/2017 RICHIE BENTLEY MD, Ot K21 .9 GASTRO-ESOPHAGEAL REFLUX DISEASE WITHOUT 08/27/2017 RICHIE BENTLEY MD Ot M19.90 UNSPECIFIED OSTEOARTHRITIS, UNSPECIFIED 08/27/2017 RICHIE BENTLEY MD Ot R10.13 EPIGASTRIC PAIN 08/27/2017 RICHIE BENTLEY MD Ot R10 .9 UNSPECIFIED ABDOMINAL PAIN 08/27/2017 RICHIE BENTLEY MD, Ot Z79.82 UNIVERSAL BANKER (CURRENT) USE OF ASPIRIN 08/27/2017 RICHIE BENTLEY [...] OVARIES, UNILATERAL 08/27/2017 RICHIE BENTLEY MD, Ot Z95 .5 PRESENCE OF CORONARY ANGIOPLASTY IMPLANT 08/27/2017 RICHIE BENTLEY MD, Ot Z98.51 TUBAL LIGATION STATUS 08/28/2017 KADIE EDWARDS MD Ot E11.9 TYPE 2 DIABETES MELLITUS WITHOUT COMPLIC 08/28/2017 KADIE EDWARDS MD Ot E78.00 PURE HYPERCHOLESTEROLEMIA, UNSPECIFIED 08/28/2017 KADIE EDWARDS MD Ot F32.9 MAJOR DEPRESSIVE DISORDER, SINGLE EPISOD 08/28/2017 KADIE EDWARDS MD Ot F41.9 ANXIETY DISORDER, UNSPECIFIED 08/28/2017 KADIE EDWARDS MD Ot I25.2 OLD MYOCARDIAL INFARCTION 08/28/2017 KADIE EDWARDS MD Ot M19.90 UNSPECIFIED OSTEOARTHRITIS, UNSPECIFIED 08/28/2017 KADIE EDWARDS MD Ot N28.1 CYST OF KIDNEY, ACQUIRED 08/28/2017 KADIE EDWARDS MD Ot R42 DIZZINESS AND GIDDINESS 08/28/2017 KADIE EDWARDS MD Ot Z79.82 UNIVERSAL BANKER (CURRENT) USE OF ASPIRIN 08/28/2017 KADIE EDWARDS [...] PAIN 09/03/2017 RICHIE BENTLEY MD, Ot Z79.82 UNIVERSAL BANKER (CURRENT) USE OF ASPIRIN 09/03/2017 RICHIE BENTLEY [...] OVARIES, UNILATERAL 09/03/2017 RICHIE BENTLEY MD Ot Z95 .5 PRESENCE OF CORONARY ANGIOPLASTY IMPLANT 09/03/2017 RICHIE BENTLEY MD Ot Z98.51 TUBAL LIGATION STATUS 09/29/2017 Ot 250.00 LESY B LUCIA WO COMPL, TYPE II OR UNSPEC TY 09/29/2017 Ot 272.4 HYPE RLIPIDEMIA NEC/NOS 09/29/2017 Ot V58.69 OTH MED,LT,CURRENT USE 09/29/2017 LINDEN MOISE FACC, DASIA FACGary CCDS Ot 272.4 HYPERLIPIDEMIA NEC/NOS 09/29/2017 WESTON WRIGHT MD Ot 789.00 ABDOMINAL PAIN, UNSPECIFIED SITE 09/29/2017 WESTON WRIGHT MD Ot 793.11 SOLITARY PULMONARY NODULE 09/29/2017 WSETON WRIGHT MD Ot 593 .9 RENAL URETERAL DIS NOS 09/29/2017 MARGUERITE WAITE MD Ot Z01.81 8 ENCOUNTER FOR OTHER PREPROCEDURAL EXAMIN 09/29/2017 MARGUERITE WAITE MD Ot Z12.11 ENCOUNTER FOR SCREENING FOR MALIGNANT NE 09/29/2017 MARGUERITE WAITE MD Ot Z86.01 0 PERSONAL HISTORY OF COLONIC POLYPS 09/29/2017 MARGUERITE WAITE MD Ot Z87.11 PERSONAL HISTORY OF PEPTIC ULCER DISEASE 09/29/2017 FOREIGN HORAN RADIOLOGICAL ENGINEER Ot E11.9 TYPE 2 DIABETES MELLITUS WITHOUT COMPLIC 09/29/2017 FOREIGN HORAN RADIOLOGICAL ENGINEER Ot E78.4 OTHER HYPERLIPIDEMIA 09/29/2017 FOREIGN HORAN L RADIOLOGICAL ENGINEER Ot I 10 ESSENTIAL (PRIMARY) HYPERTENSION 09/29/2017 FOREIGN HORAN RADIOLOGICAL ENGINEER Ot I25.10 ATHSCL HEART DISEASE OF [place] CORONARY 09/29/2017 FOREIGN HORAN L RADIOLOGICAL ENGINEER Ot I65.23 OCCLUSION AND STENOSIS OF [place] 09/29/2017 FOREIGN HORAN L RADIOLOGICAL ENGINEER Ot R07.89 OTHER CHEST PAIN 09/29/2017 FOREIGN HORAN RADIOLOGICAL ENGINEER Ot E11.9 TYPE 2 DIABETES MELLITUS WITHOUT COMPLIC 09/29/2017 BLANCAS, PRISCILLA R PIPEFITTER Ot N28.89 OTHER SPECIFIED DISORDERS OF KIDNEY AND 09/29/2017 BLANCAS, PRISCILLA R PIPEFITTER Ot N28.89 OTHER SPECIFIED DISORDERS OF KIDNEY AND 09/29/2017 BLANCAS, PRISCILLA R PIPEFITTER Ot R91.1 SOLITARY PULMONARY NODULE 10/05/2017 LBANCAS, PRISCILLA R PIPEFITTER Ot N28.89 OTHER SPECIFIED DISORDERS OF KIDNEY AND 10/05/2017 BLANCAS, PRISCILLA R PIPEFITTER Ot R91.1 SOLITARY PULMONARY NODULE 10/13/2017 BLANCAS, PRISCILLA R PIPEFITTER Ot N28.89 OTHER SPECIFIED DISORDERS OF KIDNEY AND 10/13/2017 BLANCAS, PRISCILLA R PIPEFITTER Ot N28.1 CYST OF KIDNEY, ACQUIRED 10/13/2017 NADER BLANCASELE R PIPEFITTER Ot N28.89 OTHER SPECIFIED DISORDERS OF KIDNEY AND 10/13/2017 BLANCAS, PRISCILLA R PIPEFITTER Ot Z90.49 ACQUIRED ABSENCE OF OTHER SPECIFIED PART 11/16/2017 BLANCAS PRISCILLA R PIPEFITTER Ot Z12.31 ENCNTR SCREEN MAMMOGRAM FOR MALIGNANT NE 12/12/2017 VALENTINE MOISE, KHURRAM Caba Ot E11. 9 TYPE 2 DIABETES MELLITUS WITHOUT COMPLIC 12/12/2017 VALENTINE MOISE, KHURRAM Caba Ot E78. 00 PURE HYPERCHOLESTEROLEMIA, UNSPECIFIED 12/12/2017 VALENTINE MOISE, KHURRAM Caba Ot F32. 9 MAJOR DEPRESSIVE DISORDER, SINGLE EPISOD 12/12/2017 KHURRAM GRIJALVA MD Ot F41. 9 ANXIETY DISORDER, UNSPECIFIED 12/12/2017 KHURRAM GRIJALVA MD Ot G51. 0 [place]ZADA'S PALSY 12/12/2017 KHURRAM GRIJALVA MD Ot I25. 2 OLD MYOCARDIAL INFARCTION 12/12/2017 KHURRAM GRIJALVA MD Ot K21. 9 GASTRO-ESOPHAGEAL REFLUX DISEASE WITHOUT 12/12/2017 VALENTINE MOISE, KHURRAM Caba Ot M25.462 EFFUSION, LEFT KNEE 12/12/2017 VALENTINE MOISE, KHURRAM Caba Ot W01.198A FALL SAME LEV FROM SLIP/TRIP W STRIKE AG 12/12/2017 KHURRAM GRIJALVA MD Ot Z79. 82 [facility] (CURRENT) USE OF ASPIRIN 12/12/2017 VALENTINE MOISE, KHURRAM Caba Ot Z87. 19 PERSONAL HISTORY OF OTHER DISEASES OF 12/12/2017 VALENTINE MOISE, KHURRAM Caba Ot Z87.442 [...] IMPLANT 12/12/2017 VALENTINE MOISE, KHURRAM Caba Ot Z98. 51 TUBAL LIGATION STATUS 12/14/2017 VALENTINE MOISE, KHURRAM Caba Ot E11. 9 TYPE 2 DIABETES MELLITUS WITHOUT COMPLIC 12/14/2017 VALENTINE MOISE, KHURRAM Caba Ot E78. 00 PURE HYPERCHOLESTEROLEMIA, UNSPECIFIED 12/14/2017 VALENTINE MOISE, KHURRAM Caba Ot F32. 9 MAJOR DEPRESSIVE DISORDER, SINGLE EPISOD 12/14/2017 VALENTINE MOISE, KHURRAM Caba Ot F41. 9 ANXIETY DISORDER, UNSPECIFIED 12/14/2017 VALENTINE MOISE, KHURRAM Caba Ot G51. 0 [place]'S PALSY 12/14/2017 VALENTINE MOISE, KHURRAM Caba Ot I25. 2 OLD MYOCARDIAL INFARCTION 12/14/2017 VALENTINE MOISE, KHURRAM Caba Ot K21. 9 GASTRO-ESOPHAGEAL REFLUX DISEASE WITHOUT 12/14/2017 VALENTINE MOISE, KHURRAM Caba Ot M25.462 EFFUSION, LEFT KNEE 12/14/2017 VALENTINE MOISE, KHURRAM Caba Ot W01.198A FALL SAME LEV FROM SLIP/TRIP W STRIKE AG 12/14/2017 VALENTINE MOISE, KHURRAM Caba Ot Z79. 82 UNIVERSAL BANKER (CURRENT) USE OF ASPIRIN 12/14/2017 VALENTINE MOISE, KHURRAM Caba Ot Z87. 19 PERSONAL HISTORY OF OTHER DISEASES OF TH 12/14/2017 VALENTINE MOISE, KHURRAM Caba Ot Z87.442 PERSONAL HISTORY OF URINARY CALCULI 12/14/2017 VALENTINE MOISE, KHURRAM Caba Ot Z87. 59 PERSONAL HISTORY OF COMP OF PREG, CHLDBR 12/14/2017 VALENTINE MOISE KHURRAM Caba Ot Z87.891 PERSONAL HISTORY OF NICOTINE DEPENDENCE 12/14/2017 VALENTINE MOISE KHURRAM Caba Ot Z88. 1 ALLERGY STATUS TO OTHER ANTIBIOTIC AGENT 12/14/2017 VALENTINE MOISE KHURRAM Caba Ot Z88. 5 ALLERGY STATUS TO NARCOTIC AGENT STATUS 12/14/2017 VALENTINE MOISE KHURRAM Caba Ot Z88. 8 ALLERGY STATUS TO OTH DRUG/MEDS/BIOL SUB 12/14/2017 VALENTINE MOISE KHURRAM Caba Ot Z90.721 ACQUIRED ABSENCE OF OVARIES, UNILATERAL 12/14/2017 VALENTINE MOISE KHURRAM Caba Ot Z95. 5 PRESENCE OF CORONARY ANGIOPLASTY IMPLANT 12/14/2017 VALENTINE MOISE KHURRAM Caba Ot Z98. 51 TUBAL LIGATION STATUS 04/11/2018 LINDEN MOISE FACC, DASIA CHACON CCDS Ot 272.4 HYPERLIPIDEMIA NEC/NOS 04/11/2018 WESTON WRIGHT MD Ot 789.00 ABDOMINAL PAIN, UNSPECIFIED SITE 04/11/2018 WESTON WRIGHT MD Ot 793.11 SOLITARY PULMONARY NODULE 04/11/2018 WESTON WRIGHT MD Ot 593 .9 RENAL URETERAL DIS NOS 04/11/2018 MARGUERITE WAITE MD Ot Z01.81 8 ENCOUNTER FOR OTHER PREPROCEDURAL EXAMIN 04/11/2018 MARGUERITE WAITE MD Ot Z12.11 ENCOUNTER FOR SCREENING FOR MALIGNANT NE 04/11/2018 MARGUERITE WAITE MD Ot Z86.01 0 PERSONAL HISTORY OF COLONIC POLYPS 04/11/2018 MARGUERITE WAITE MD Ot Z87.11 PERSONAL HISTORY OF PEPTIC ULCER DISEASE 04/11/2018 FOREIGN HORAN RADIOLOGICAL ENGINEER Ot E11.9 TYPE 2 DIABETES MELLITUS WITHOUT COMPLIC 04/11/2018 FOREIGN HORAN L RADIOLOGICAL ENGINEER Ot E78.4 OTHER HYPERLIPIDEMIA 04/11/2018 FOREIGN HORAN L RADIOLOGICAL ENGINEER Ot I 10 ESSENTIAL (PRIMARY) HYPERTENSION 04/11/2018 FOREIGN HORAN L RADIOLOGICAL ENGINEER Ot I25.10 ATHSCL HEART DISEASE OF [place] CORONARY 04/11/2018 FOREIGN HORAN L RADIOLOGICAL ENGINEER Ot I65.23 OCCLUSION AND STENOSIS OF BILATERAL [place] 04/11/2018 FOREIGN HORAN L RADIOLOGICAL ENGINEER Ot R07.89 OTHER CHEST PAIN 04/11/2018 FOREIGN HORAN RADIOLOGICAL ENGINEER Ot E11.9 TYPE 2 DIABETES MELLITUS WITHOUT COMPLIC 04/11/2018 BLANCASPRISCILLA R PIPEFITTER Ot N28.89 OTHER SPECIFIED DISORDERS OF KIDNEY AND 04/11/2018 BLANCAS, PRISCILLA R PIPEFITTER Ot N28.89 OTHER SPECIFIED DISORDERS OF KIDNEY AND 04/11/2018 BLANCASPRISCILLA R PIPEFITTER Ot R91.1 SOLITARY PULMONARY NODULE 04/11/2018 BLANCASNADER YeeELE R PIPEFITTER Ot N28.1 CYST OF KIDNEY, ACQUIRED 04/11/2018 BLANCASPRISCILLA R PIPEFITTER Ot N28.89 OTHER SPECIFIED DISORDERS OF KIDNEY AND 04/11/2018 BLANCAS PRISCILLA R PIPEFITTER Ot Z90.49 ACQUIRED ABSENCE OF OTHER SPECIFIED PART 04/11/2018 PRISCILLA BLANCAS R PIPEFITTER Ot Z12.31 ENCNTR SCREEN MAMMOGRAM FOR MALIGNANT [...] PAIN 04/11/2018 TRAVIS CANDELARIA APRN Ot Z79.82 [facility] (CURRENT) USE OF ASPIRIN 04/11/2018 TRAVIS CANDELARIA [...] Ot G51 .0 LOZADA'S PALSY 04/13/2018 TRAVIS CANDELARIA APRN Ot G89.29 OTHER CHRONIC PAIN 04/13/2018 TRAVIS CANDELARIA APRN Ot I25 .2 OLD MYOCARDIAL INFARCTION 04/13/2018 TRAVIS CANDELARIA APRN Ot K21 .9 GASTRO-ESOPHAGEAL REFLUX DISEASE WITHOUT 04/13/2018 TRAVIS CANDELARIA APRN Ot R10 .9 UNSPECIFIED ABDOMINAL PAIN 04/13/2018 TRAVIS CANDELARIA APRN Ot Z79.82 UNIVERSAL BANKER (CURRENT) USE OF ASPIRIN 04/13/2018 TRAVIS CANDELARIA [...] Z87.891 PERSONAL HISTORY OF NICOTINE DEPENDENCE 04/13/2018 CANDELARIA, PETER J PIPEFITTER Ot Z88 .1 ALLERGY STATUS TO OTHER ANTIBIOTIC AGENT 04/13/2018 TRAVIS CANDELARIA PIPEFITTER Ot Z88 .4 ALLERGY STATUS TO ANESTHETIC AGENT STATU 04/13/2018 TRAVIS CANDELARIA APRN Ot Z88 .5 ALLERGY STATUS TO NARCOTIC AGENT STATUS 04/13/2018 TRAVIS CANDELARIA PIPEFITTER Ot Z90.721 ACQUIRED ABSENCE OF OVARIES, UNILATERAL 04/13/2018 TRAVIS CANDELARIA PIPEFITTER Ot Z98.51 TUBAL LIGATION STATUS 04/22/2018 PRISCILLA BLANCAS PIPEFITTER Ot C64.2 MALIGNANT NEOPLASM OF LEFT KIDNEY, EXCEP 05/01/2018 KADIE EDWARDS MD Ot E11.9 TYPE 2 DIABETES MELLITUS WITHOUT COMPLIC 05/01/2018 KADIE EDWARDS MD Ot E78.00 PURE HYPERCHOLESTEROLEMIA, UNSPECIFIED 05/01/2018 KADIE EDWARDS MD Ot F32.9 MAJOR DEPRESSIVE DISORDER, SINGLE EPISOD 05/01/2018 KADIE EDWARDS MD Ot F41.9 ANXIETY DISORDER, UNSPECIFIED 05/01/2018 KADIE EDWARDS MD Ot I25.2 OLD MYOCARDIAL INFARCTION 05/01/2018 KADIE EDWARDS MD Ot K21.9 GASTRO-ESOPHAGEAL REFLUX DISEASE WITHOUT 05/01/2018 KADIE EDWARDS MD Ot M47.22 OTHER SPONDYLOSIS WITH RADICULOPATHY, CE 05/01/2018 KADIE EDWARDS MD Ot M54.2 CERVICALGIA 05/01/2018 KADIE EDWARDS MD Ot Z79.82 [facility] (CURRENT) USE OF ASPIRIN 05/01/2018 KADIE EDWARDS MD Ot Z85.828 PERSONAL HISTORY OF OTHER MALIGNANT NEOP 05/01/2018 KADIE EDWARDS MD Ot Z87.19 PERSONAL HISTORY OF OTHER DISEASES OF TH 05/01/2018 KADIE EDWARDS MD Ot Z87.442 PERSONAL HISTORY OF URINARY CALCULI 05/01/2018 KADIE EDWARDS MD Ot Z87.59 PERSONAL HISTORY OF COMP OF PREG, CHLDBR 05/01/2018 KADIE EDWARDS MD Ot Z87.891 PERSONAL HISTORY OF NICOTINE DEPENDENCE 05/01/2018 KADIE EDWARDS MD Ot Z88.1 ALLERGY STATUS TO OTHER ANTIBIOTIC AGENT 05/01/2018 KADIE EDWARDS MD Ot Z88.4 ALLERGY STATUS TO ANESTHETIC AGENT STATU 05/01/2018 KADIE EDWARDS MD, Ot Z88.5 ALLERGY STATUS TO NARCOTIC AGENT STATUS 05/01/2018 KADIE EDWARDS MD Ot Z98.51 TUBAL LIGATION STATUS 05/03/2018 KADIE EDWARDS MD Ot E11.9 TYPE 2 DIABETES MELLITUS WITHOUT COMPLIC 05/03/2018 KADIE EDWARDS MD Ot E78.00 PURE HYPERCHOLESTEROLEMIA, UNSPECIFIED 05/03/2018 KADIE EDWARDS MD, Ot F32.9 MAJOR DEPRESSIVE DISORDER, SINGLE EPISOD 05/03/2018 KADIE EDWARDS MD, Ot F41.9 ANXIETY DISORDER, UNSPECIFIED 05/03/2018 KADIE EDWARDS MD, Ot I25.2 OLD MYOCARDIAL INFARCTION 05/03/2018 KADIE EDWARDS MD Ot K21.9 GASTRO-ESOPHAGEAL REFLUX DISEASE WITHOUT 05/03/2018 KADIE EDWARDS MD Ot M47.22 OTHER SPONDYLOSIS WITH RADICULOPATHY, CE 05/03/2018 KADIE EDWARDS MD Ot M54.2 CERVICALGIA 05/03/2018 KADIE EDWARDS MD Ot Z79.82 [employer] (CURRENT) USE OF ASPIRIN 05/03/2018 KADIE EDWARDS MD Ot Z85.828 PERSONAL HISTORY OF OTHER MALIGNANT NEOP 05/03/2018 KADIE EDWARDS MD Ot Z87.19 PERSONAL HISTORY OF OTHER DISEASES OF TH 05/03/2018 KADIE EDWARDS MD Ot Z87.442 PERSONAL HISTORY OF URINARY CALCULI 05/03/2018 KADIE EDWARDS MD Ot Z87.59 PERSONAL HISTORY OF COMP OF PREG, CHLDBR 05/03/2018 KADIE EDWARDS MD, Ot Z87.891 PERSONAL HISTORY OF NICOTINE DEPENDENCE 05/03/2018 KADIE EDWARDS MD Ot Z88.1 ALLERGY STATUS TO OTHER ANTIBIOTIC AGENT 05/03/2018 KADIE EDWARDS MD Ot Z88.4 ALLERGY STATUS TO ANESTHETIC AGENT STATU 05/03/2018 KADIE EDWARDS MD, Ot Z88.5 ALLERGY STATUS TO NARCOTIC AGENT STATUS 05/03/2018 KADIE EDWARDS MD, Ot Z98.51 TUBAL LIGATION STATUS 05/04/2018 PRISCILLA BLANCAS R PIPEFITTER Ot C64.2 MALIGNANT NEOPLASM OF LEFT KIDNEY, EXCEP 07/20/2018 PRISCILLA BLANCAS R PIPEFITTER Ot M25.78 OSTEOPHYTE, VERTEBRAE 07/20/2018 NADER BLANCASELE R PIPEFITTER Ot M47.22 OTHER SPONDYLOSIS WITH RADICULOPATHY, CE 07/20/2018 NADER BLANCASELE R PIPEFITTER Ot M48.03 SPINAL STENOSIS, CERVICOTHORACIC REGION 07/20/2018 NADER BLANCASELE R PIPEFITTER Ot M50.121 CERVICAL DISC DISORDER AT C4-C5 LEVEL [place] 07/20/2018 NADER BLANCASELE R PIPEFITTER Ot M50.13 CERVICAL DISC DISORDER W RADICULOPATHY, 07/20/2018 ANDER BLANCASELE R PIPEFITTER Ot 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 07/29/2018 PRISCILLA BLANCAS R PIPEFITTER Ot M25.78 OSTEOPHYTE, VERTEBRAE 07/29/2018 NADER BLANCASELE R PIPEFITTER Ot M47.22 OTHER SPONDYLOSIS WITH RADICULOPATHY, CE 07/29/2018 NADER BLANCASELE R PIPEFITTER Ot M48.03 SPINAL STENOSIS, CERVICOTHORACIC REGION 07/29/2018 NADER BLANCASELE R PIPEFITTER Ot M50.121 CERVICAL DISC DISORDER AT C4-C5 LEVEL [place] 07/29/2018 NADER BLANCASELE R PIPEFITTER Ot M50.13 CERVICAL DISC DISORDER W RADICULOPATHY, 07/29/2018 PRISCILLA BLANCAS R PIPEFITTER Ot 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 09/15/2018 TRAVIS CANDELARIA PIPEFITTER Ot E11 .9 TYPE 2 DIABETES MELLITUS [...] HEADACHE 09/15/2018 TRAVIS CANDELARIA APRN Ot Z79.52 UNIVERSAL BANKER (CURRENT) USE OF SYSTEMIC STER 09/15/2018 TRAVIS CANDELARIA APRN Ot Z79.82 [facility] (CURRENT) USE OF ASPIRIN 09/15/2018 TRAVIS CANDELARIA APRN Ot Z85.528 PERSONAL HISTORY OF OTHER MALIGNANT NEOP 09/15/2018 RTAVIS CANDELARIA APRN Ot Z87.19 PERSONAL HISTORY OF [...] PRESENCE OF CARDIAC AND VASCULAR IMPLANT 09/15/2018 TRAVIS CANDELARIA APRN Ot Z98.51 TUBAL LIGATION [...] HEADACHE 09/22/2018 TRAVIS CANDELARIA APRN Ot Z79.52 [facility] (CURRENT) USE OF SYSTEMIC STER 09/22/2018 TRAVIS CANDELARIA APRN Ot Z79.82 UNIVERSAL BANKER (CURRENT) USE OF ASPIRIN 09/22/2018 TRAVIS CANDELARIA [...] OTHER SPECIFIED POSTPROCEDURAL STATES 11/07/2018 ROSA SNELL PIPEFITTER Ot M43.16 SPONDYLOLISTHESIS, LUMBAR REGION 11/07/2018 ROSA SNELL PIPEFITTER Ot M51.37 OTHER INTERVERTEBRAL DISC DEGENERATION, 11/16/2018 ROSA SNELL PIPEFITTER Ot M43.16 SPONDYLOLISTHESIS, LUMBAR REGION 11/16/2018 ROSA SNELL PIPEFITTER Ot M51.37 OTHER INTERVERTEBRAL DISC DEGENERATION, 11/22/2018 ROSA SNELL PIPEFITTER Ot G89 .4 CHRONIC PAIN SYNDROME 11/22/2018 ROSA SNELL PIPEFITTER Ot M53 .3 SACROCOCCYGEAL DISORDERS, NOT ELSEWHERE 11/29/2018 ORTIZ MOISE, WESTON Nuno Ot 789.00 ABDOMINAL PAIN, UNSPECIFIED SITE 11/29/2018 WESTON WRIGHT MD Ot 793.11 SOLITARY PULMONARY NODULE 11/29/2018 WESTON WRIGHT MD Ot 593 .9 RENAL URETERAL DIS NOS 11/29/2018 MARGUERITE WAITE MD, Ot Z01.81 8 ENCOUNTER FOR OTHER PREPROCEDURAL EXAMIN 11/29/2018 MARGUERITE WAITE MD, Ot Z12.11 ENCOUNTER FOR SCREENING FOR MALIGNANT NE 11/29/2018 MARGUERITE WAITE MD, Ot Z86.01 0 PERSONAL HISTORY OF COLONIC POLYPS 11/29/2018 MARGUERITE WAITE MD Ot Z87.11 PERSONAL HISTORY OF PEPTIC ULCER DISEASE 11/29/2018 FOREIGN HORAN RADIOLOGICAL ENGINEER Ot E11.9 TYPE 2 DIABETES MELLITUS WITHOUT COMPLIC 11/29/2018 FOREIGN HORAN RADIOLOGICAL ENGINEER Ot E78.4 OTHER HYPERLIPIDEMIA 11/29/2018 FOREIGN HORAN RADIOLOGICAL ENGINEER Ot I 10 ESSENTIAL (PRIMARY) HYPERTENSION 11/29/2018 FOREIGN HORAN RADIOLOGICAL ENGINEER Ot I25.10 ATHSCL HEART DISEASE OF [place] CORONARY 11/29/2018 FOREIGN HORAN RADIOLOGICAL ENGINEER Ot I65.23 OCCLUSION AND STENOSIS OF BILATERAL [place] 11/29/2018 FOREIGN HORAN RADIOLOGICAL ENGINEER Ot R07.89 OTHER CHEST PAIN 11/29/2018 FOREIGN HORAN RADIOLOGICAL ENGINEER Ot E11.9 TYPE 2 DIABETES MELLITUS WITHOUT COMPLIC 11/29/2018 PRISCILLA BLANCAS R PIPEFITTER Ot N28.89 OTHER SPECIFIED DISORDERS OF KIDNEY AND 11/29/2018 PRISCILLA BLANCAS R PIPEFITTER Ot N28.89 OTHER SPECIFIED DISORDERS OF KIDNEY AND 11/29/2018 PRISCILLA BLANCAS PIPEFITTER Ot R91.1 SOLITARY PULMONARY NODULE 11/29/2018 PRISCILLA BLANCAS PIPEFITTER Ot N28.1 CYST OF KIDNEY, ACQUIRED 11/29/2018 PRISCILLA BLANCAS PIPEFITTER Ot N28.89 OTHER SPECIFIED DISORDERS OF KIDNEY AND 11/29/2018 PRISCILLA BLANCAS PIPEFITTER Ot Z90.49 ACQUIRED ABSENCE OF OTHER SPECIFIED PART 11/29/2018 PRISCILLA BLANCAS PIPEFITTER Ot Z12.31 ENCNTR SCREEN MAMMOGRAM FOR MALIGNANT NE 11/29/2018 PRISCILLA BLANCAS PIPEFITTER Ot C64.2 MALIGNANT NEOPLASM OF LEFT KIDNEY, EXCEP 11/29/2018 PRISCILLA BLANCAS PIPEFITTER Ot M25.78 OSTEOPHYTE, VERTEBRAE 11/29/2018 PRISCILLA BLANCAS PIPEFITTER Ot M47.22 OTHER SPONDYLOSIS WITH RADICULOPATHY, CE 11/29/2018 PRISCILLA BLANCAS PIPEFITTER Ot M48.03 SPINAL STENOSIS, CERVICOTHORACIC REGION 11/29/2018 PRISCILLA BLANCAS PIPEFITTER Ot M50.121 CERVICAL DISC DISORDER AT C4-C5 LEVEL WI 11/29/2018 PRISCILLA BLANCAS PIPEFITTER Ot M50.13 CERVICAL DISC DISORDER W RADICULOPATHY, 11/29/2018 PRISCILLA BLANCAS PIPEFITTER Ot 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 11/29/2018 ROSA SNELL PIPEFITTER Ot M43.16 SPONDYLOLISTHESIS, LUMBAR REGION 11/29/2018 ROSA SNELL PIPEFITTER Ot M51.37 OTHER INTERVERTEBRAL DISC DEGENERATION, 11/29/2018 ROSA SNELL PIPEFITTER Ot G89 .4 CHRONIC PAIN SYNDROME 11/29/2018 ROSA SNELL PIPEFITTER Ot M53 .3 SACROCOCCYGEAL DISORDERS, NOT ELSEWHERE 12/08/2018 ROSA SNELL PIPEFITTER Ot M43.16 SPONDYLOLISTHESIS, LUMBAR REGION 12/08/2018 ROSA SNELL PIPEFITTER Ot M51.37 OTHER INTERVERTEBRAL DISC DEGENERATION, 12/13/2018 KERRY PETERS Ot M54. 2 CERVICALGIA 12/13/2018 KERRY PETERS Ot Z48. 89 ENCOUNTER FOR OTHER SPECIFIED SURGICAL A 12/13/2018 KERRY PETERS Ot Z98. 1 ARTHRODESIS STATUS 01/18/2019 ROSA SNELL APRN Ot Z12.31 ENCNTR SCREEN MAMMOGRAM FOR MALIGNANT NE 01/22/2019 ROSA SNELL PIPEFITTER Ot Z12.31 ENCNTR SCREEN MAMMOGRAM FOR MALIGNANT NE 01/31/2019 KERRY PETERS Ot M54. 2 CERVICALGIA 01/31/2019 KERRY PETERS Ot Z48. 89 ENCOUNTER FOR OTHER SPECIFIED SURGICAL A 01/31/2019 KERRY PETERS Ot Z98. 1 ARTHRODESIS STATUS 02/02/2019 ROSA SNELL PIPEFITTER Ot Z12.31 ENCNTR SCREEN MAMMOGRAM FOR MALIGNANT NE 02/03/2019 ROSA SNELL PIPEFITTER Ot G89 .4 CHRONIC PAIN SYNDROME 02/03/2019 ROSA SNELL PIPEFITTER Ot M53 .3 SACROCOCCYGEAL DISORDERS, NOT ELSEWHERE 02/09/2019 KERRY PETERS Ot M54. 2 CERVICALGIA 02/09/2019 KERRY PETERS Ot Z48. 89 ENCOUNTER FOR OTHER SPECIFIED SURGICAL A 02/09/2019 KERRY PETERS Ot Z98. 1 ARTHRODESIS STATUS 03/01/2019 ROSA SNELL PIPEFITTER Ot M48.02 SPINAL STENOSIS, CERVICAL REGION 03/01/2019 ROSA SNELL PIPEFITTER Ot M54.41 LUMBAGO WITH SCIATICA, RIGHT SIDE 03/01/2019 ALCIRA SNELLTA D PIPEFITTER Ot M54.42 LUMBAGO WITH SCIATICA, LEFT SIDE 03/09/2019 ROSA SNELL PIPEFITTER Ot M48.02 SPINAL STENOSIS, CERVICAL REGION 03/09/2019 ROSA SNELL PIPEFITTER Ot M54.41 LUMBAGO WITH SCIATICA, RIGHT SIDE 03/09/2019 ALCIRA SNELLTA D PIPEFITTER Ot M54.42 LUMBAGO WITH SCIATICA, LEFT SIDE 04/14/2019 ALCIRA SNELLTA Brian PIPEFITTER Ot M48.02 SPINAL STENOSIS, CERVICAL REGION 04/14/2019 KING ROSA D PIPEFITTER Ot M54.41 LUMBAGO WITH SCIATICA, RIGHT SIDE 04/14/2019 ALCIRA SNELLTA D PIPEFITTER Ot M54.42 LUMBAGO WITH SCIATICA, LEFT SIDE 04/25/2019 ROSA SNELL PIPEFITTER Ot G89 .4 CHRONIC PAIN SYNDROME 04/25/2019 ALCIRA SNELLTA Brian PIPEFITTER Ot M53 .3 SACROCOCCYGEAL DISORDERS, NOT ELSEWHERE 06/06/2019 ARLIN PRICE PIPEFITTER Ot N64.4 MASTODYNIA 06/26/2019 ARLIN PRICE PIPEFITTER Ot N64.4 MASTODYNIA 09/04/2019 ROSA SNELL APRN Ot M47.26 OTHER SPONDYLOSIS WITH RADICULOPATHY, JULES 09/04/2019 ROSA SNELL APRN Ot M48.061 SPINAL STENOSIS, LUMBAR REGION WITHOUT N 09/04/2019 ROSA SNELL APRN Ot M51.17 INTVRT DISC DISORDERS W RADICULOPATHY, L 09/07/2019 KADIE EDWARDS MD Ot E11.9 TYPE 2 DIABETES MELLITUS WITHOUT COMPLIC 09/07/2019 KADIE EDWADRS MD, Ot E78.00 PURE HYPERCHOLESTEROLEMIA, UNSPECIFIED 09/07/2019 KADIE EDWARDS MD, Ot F17.210 NICOTINE DEPENDENCE, CIGARETTES, UNCOMPL 09/07/2019 KADIE EDWARDS MD, Ot F32.9 MAJOR DEPRESSIVE DISORDER, SINGLE EPISOD 09/07/2019 KADIE EDWARDS MD, Ot F41.9 ANXIETY DISORDER, UNSPECIFIED 09/07/2019 KADIE EDWARDS MD, Ot K21.9 GASTRO-ESOPHAGEAL REFLUX DISEASE WITHOUT 09/07/2019 KADIE EDWARDS MD Ot M54.16 RADICULOPATHY, LUMBAR REGION 09/07/2019 KADIE EDWARDS MD Ot M54.5 LOW BACK PAIN 09/07/2019 KADIE EDWARDS MD Ot S39.012A STRAIN OF MUSCLE, FASCIA AND TENDON OF L 09/07/2019 KADIE EDWARDS MD Ot X50.1XXA OVEREXERTION FROM PROLONGED STATIC OR AW 09/07/2019 KADIE EDWARDS MD Ot Z79.82 UNIVERSAL BANKER (CURRENT) USE OF ASPIRIN 09/07/2019 KADIE EDWARDS MD Ot Z85.528 PERSONAL HISTORY OF OTHER MALIGNANT NEOP 09/07/2019 KADIE EDWARDS MD, Ot Z87.442 PERSONAL HISTORY OF URINARY CALCULI 09/07/2019 KADIE EDWARDS MD, Ot Z88.1 ALLERGY STATUS TO OTHER ANTIBIOTIC AGENT 09/07/2019 KADIE EDWARDS MD, Ot Z88.5 ALLERGY STATUS TO NARCOTIC AGENT STATUS 09/07/2019 KADIE EDWARDS MD, Ot Z88.6 ALLERGY STATUS TO ANALGESIC AGENT STATUS 09/07/2019 KADIE EDWARDS MD, Ot Z90.5 ACQUIRED ABSENCE OF KIDNEY 09/07/2019 KADIE EDWARDS MD, Ot Z98.51 TUBAL LIGATION STATUS 09/11/2019 KADIE EDWARDS MD Ot E11.9 TYPE 2 DIABETES MELLITUS WITHOUT COMPLIC 09/11/2019 KADIE EDWARDS MD, Ot E78.00 PURE HYPERCHOLESTEROLEMIA, UNSPECIFIED 09/11/2019 KADIE EDWARDS MD Ot F17.210 NICOTINE DEPENDENCE, CIGARETTES, UNCOMPL 09/11/2019 [...] PROLONGED STATIC OR AW 09/11/2019 KADIE EDWARDS MD Ot Z79.82 [facility] (CURRENT) USE OF ASPIRIN 09/11/2019 KADIE EDWARDS [...] TUBAL LIGATION STATUS 11/07/2019 SARTHAK COELLO MD Ot M54.16 RADICULOPATHY, LUMBAR REGION 11/13/2019 SARTHAK COELLO MD Ot M54.16 RADICULOPATHY, LUMBAR REGION 12/08/2019 MODE MOISE, SARTHAK A Ot M54.16 RADICULOPATHY, LUMBAR REGION 01/21/2020 SALVADOR, KHOA STATONP Ot E11.9 TYPE 2 DIABETES MELLITUS WITHOUT COMPLIC 01/21/2020 SALVADOR, KHOA RADIOLOGICAL ENGINEER Ot E78.00 PURE HYPERCHOLESTEROLEMIA, UNSPECIFIED 01/21/2020 SALVADOR, KHOA RADIOLOGICAL ENGINEER Ot F32.9 MAJOR DEPRESSIVE DISORDER, SINGLE EPISOD 01/21/2020 SALVADOR, KHOA RADIOLOGICAL ENGINEER Ot F41.9 ANXIETY DISORDER, UNSPECIFIED 01/21/2020 SALVADOR, KHOA RADIOLOGICAL ENGINEER Ot I25.2 OLD MYOCARDIAL INFARCTION 01/21/2020 SALVADOR, KHOA RADIOLOGICAL ENGINEER Ot K21.9 GASTRO-ESOPHAGEAL REFLUX DISEASE WITHOUT 01/21/2020 SALVADOR, KHOA RADIOLOGICAL ENGINEER Ot M25.511 PAIN IN RIGHT SHOULDER 01/21/2020 SALVADOR, KHOA RADIOLOGICAL ENGINEER Ot R40.2142 COMA SCALE, EYES OPEN, SPONTANEOUS, EMR 01/21/2020 SALVADOR, KHOA RADIOLOGICAL ENGINEER Ot R40.2252 COMA SCALE, BEST VERBAL RESPONSE, ORIENT 01/21/2020 SALVADOR, KHOA RADIOLOGICAL ENGINEER Ot R40.2362 COMA SCALE, BEST MOTOR RESPONSE, OBEYS C 01/21/2020 SALVADOR, KHOA RADIOLOGICAL ENGINEER Ot S42.291A OTH DISP FX OF UPPER END OF RIGHT HUMERU 01/21/2020 SALVADOR, KHOA RADIOLOGICAL ENGINEER Ot S43.031A INFERIOR SUBLUXATION OF RIGHT HUMERUS, I 01/21/2020 SALVADOR, KHOA RADIOLOGICAL ENGINEER Ot W01.0XXA FALL SAME LEV FROM SLIP/TRIP W/O STRIKE 01/21/2020 SALVADOR, KHOA RADIOLOGICAL ENGINEER Ot Z79.52 UNIVERSAL BANKER (CURRENT) USE OF SYSTEMIC STER 01/21/2020 SALVADOR, KHOA RADIOLOGICAL ENGINEER Ot Z79.82 [facility] (CURRENT) USE OF ASPIRIN 01/21/2020 SALVADOR, KHOA RADIOLOGICAL ENGINEER Ot Z79.84 [facility] (CURRENT) USE OF ORAL HYPOGLYC 01/21/2020 SALVADOR, KHOA RADIOLOGICAL ENGINEER Ot Z87.891 PERSONAL HISTORY OF NICOTINE DEPENDENCE 01/21/2020 SALVADOR, KHOA RADIOLOGICAL ENGINEER Ot Z88.1 ALLERGY STATUS TO OTHER ANTIBIOTIC AGENT 01/21/2020 SALVADOR, KHOA RADIOLOGICAL ENGINEER Ot Z88.5 ALLERGY STATUS TO NARCOTIC AGENT STATUS 01/21/2020 SALVADOR, KHOA RADIOLOGICAL ENGINEER Ot Z88.6 ALLERGY STATUS TO ANALGESIC AGENT STATUS 01/21/2020 SALVADOR, KHOA RADIOLOGICAL ENGINEER Ot Z88.8 ALLERGY STATUS TO OTH DRUG/MEDS/BIOL SUB 01/24/2020 SALVADOR, KHOA RADIOLOGICAL ENGINEER Ot E11.9 TYPE 2 DIABETES MELLITUS WITHOUT COMPLIC 01/24/2020 SALVADOR, KHOA RADIOLOGICAL ENGINEER Ot E78.00 PURE HYPERCHOLESTEROLEMIA, UNSPECIFIED 01/24/2020 SALVADOR, KHOA RADIOLOGICAL ENGINEER Ot F32.9 MAJOR DEPRESSIVE DISORDER, SINGLE EPISOD 01/24/2020 SALVADOR, KHOA RADIOLOGICAL ENGINEER Ot F41.9 ANXIETY DISORDER, UNSPECIFIED 01/24/2020 SALVADOR, KHOA RADIOLOGICAL ENGINEER Ot I25.2 OLD MYOCARDIAL INFARCTION 01/24/2020 SALVADOR, KHOA RADIOLOGICAL ENGINEER Ot K21.9 GASTRO-ESOPHAGEAL REFLUX DISEASE WITHOUT 01/24/2020 SALVADOR, KHOA RADIOLOGICAL ENGINEER Ot M25.511 PAIN IN RIGHT SHOULDER 01/24/2020 SALVADOR, KHOA RADIOLOGICAL ENGINEER Ot R40.2142 COMA SCALE, EYES OPEN, SPONTANEOUS, EMR 01/24/2020 SALVADOR, KHOA RADIOLOGICAL ENGINEER Ot R40.2252 COMA SCALE, BEST VERBAL RESPONSE, ORIENT 01/24/2020 SALVADOR, KHOA RADIOLOGICAL ENGINEER Ot R40.2362 COMA SCALE, BEST MOTOR RESPONSE, OBEYS C 01/24/2020 SALVADOR, KHOA RADIOLOGICAL ENGINEER Ot S42.291A OTH DISP FX OF UPPER END OF RIGHT HUMERU 01/24/2020 SALVADOR, KHOA RADIOLOGICAL ENGINEER Ot S43.031A INFERIOR SUBLUXATION OF RIGHT HUMERUS, I 01/24/2020 SALVADOR, KHOA RADIOLOGICAL ENGINEER Ot W01.0XXA FALL SAME LEV FROM SLIP/TRIP W/O STRIKE 01/24/2020 SALVADOR, KHOA RADIOLOGICAL ENGINEER Ot Z79.52 [facility] (CURRENT) USE OF SYSTEMIC STER 01/24/2020 SALVADOR, KHOA RADIOLOGICAL ENGINEER Ot Z79.82 UNIVERSAL BANKER (CURRENT) USE OF ASPIRIN 01/24/2020 SALVADOR, KHOA RADIOLOGICAL ENGINEER Ot Z79.84 UNIVERSAL BANKER (CURRENT) USE OF ORAL HYPOGLYC 01/24/2020 SALVADOR, KHOA RADIOLOGICAL ENGINEER Ot Z87.891 PERSONAL HISTORY OF NICOTINE DEPENDENCE 01/24/2020 SALVADOR, KHOA RADIOLOGICAL ENGINEER Ot Z88.1 ALLERGY STATUS TO OTHER ANTIBIOTIC AGENT 01/24/2020 SALVADOR, KHOA RADIOLOGICAL ENGINEER Ot Z88.5 ALLERGY STATUS TO NARCOTIC AGENT STATUS 01/24/2020 KHOA FRANCO RADIOLOGICAL ENGINEER Ot Z88.6 ALLERGY STATUS TO ANALGESIC AGENT STATUS 01/24/2020 KHOA FRANCO RADIOLOGICAL ENGINEER Ot Z88.8 ALLERGY STATUS TO OTH DRUG/MEDS/BIOL SUB 02/01/2020 JAKE SHAH MD Ot S42.221D 2-PART DISP FX OF SURG NK OF R GOPI, 7T 02/01/2020 JAKE SHAH MD Ot X58.XXXD EXPOSURE TO OTHER SPECIFIED FACTORS, SUB 02/07/2020 WESTON WRIGHT MD Ot 789.00 ABDOMINAL PAIN, UNSPECIFIED SITE 02/07/2020 WESTON WRIGHT MD Ot 793.11 SOLITARY PULMONARY NODULE 02/07/2020 WESTON WRIGHT MD Ot 593 .9 RENAL URETERAL DIS NOS 02/07/2020 MARGUERITE WAITE MD, Ot Z01.81 8 ENCOUNTER FOR OTHER PREPROCEDURAL EXAMIN 02/07/2020 MARGUERITE WAITE MD, Ot Z12.11 ENCOUNTER FOR SCREENING FOR MALIGNANT NE 02/07/2020 MARGUERITE WAITE MD, Ot Z86.01 0 PERSONAL HISTORY OF COLONIC POLYPS 02/07/2020 MARGUERITE WAITE MD, Ot Z87.11 PERSONAL HISTORY OF PEPTIC ULCER DISEASE 02/07/2020 FOREIGN HORAN L RADIOLOGICAL ENGINEER Ot E11.9 TYPE 2 DIABETES MELLITUS WITHOUT COMPLIC 02/07/2020 FOREIGN HORAN L RADIOLOGICAL ENGINEER Ot E78.4 OTHER HYPERLIPIDEMIA 02/07/2020 FOREIGN HORAN L RADIOLOGICAL ENGINEER Ot I 10 ESSENTIAL (PRIMARY) HYPERTENSION 02/07/2020 FOREIGN HORNA L RADIOLOGICAL ENGINEER Ot I25.10 ATHSCL HEART DISEASE OF [place] CORONARY 02/07/2020 FOREIGN HORAN L RADIOLOGICAL ENGINEER Ot I65.23 OCCLUSION AND STENOSIS OF [place]IL[place]AL [place] 02/07/2020 AUNG FOREIGN L RADIOLOGICAL ENGINEER Ot R07.89 OTHER CHEST PAIN 02/07/2020 ESTHER HORANHER L RADIOLOGICAL ENGINEER Ot E11.9 TYPE 2 DIABETES MELLITUS WITHOUT COMPLIC 02/07/2020 PRISCILLA BLANCAS PIPEFITTER Ot N28.89 OTHER SPECIFIED DISORDERS OF KIDNEY AND 02/07/2020 PRISCILLA BLANCAS PIPEFITTER Ot N28.89 OTHER SPECIFIED DISORDERS OF KIDNEY AND 02/07/2020 PRISCILLA BLANCAS PIPEFITTER Ot R91.1 SOLITARY PULMONARY NODULE 02/07/2020 PRISCILLA BLANCAS R PIPEFITTER Ot N28.1 CYST OF KIDNEY, ACQUIRED 02/07/2020 BLANCAS, PRISCILLA Butler PIPEFITTER Ot N28.89 OTHER SPECIFIED DISORDERS OF KIDNEY AND 02/07/2020 BLANCAS, PRISCILLA Butler PIPEFITTER Ot Z90.49 ACQUIRED ABSENCE OF OTHER SPECIFIED PART 02/07/2020 BLANCAS, PRISCILLA Butler PIPEFITTER Ot Z12.31 ENCNTR SCREEN MAMMOGRAM FOR MALIGNANT NE 02/07/2020 BLANCAS, PRISCILLA Butler PIPEFITTER Ot C64.2 MALIGNANT NEOPLASM OF LEFT KIDNEY, EXCEP 02/07/2020 BLANCAS, PRISCILLA Butler PIPEFITTER Ot M25.78 OSTEOPHYTE, VERTEBRAE 02/07/2020 BLANCAS, PRISCILLA Butler PIPEFITTER Ot M47.22 OTHER SPONDYLOSIS WITH RADICULOPATHY, CE 02/07/2020 BLANCAS, PRISCILLA Butler PIPEFITTER Ot M48.03 SPINAL STENOSIS, CERVICOTHORACIC REGION 02/07/2020 BLANCAS, PRISCILLA Butler PIPEFITTER Ot M50.121 CERVICAL DISC DISORDER AT C4-C5 LEVEL WI 02/07/2020 BLANCAS, PRISCILLA Butler PIPEFITTER Ot M50.13 CERVICAL DISC DISORDER W RADICULOPATHY, 02/07/2020 BLANCAS, PRISCILLA Butler PIPEFITTER Ot 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 02/07/2020 ROSA SNELL PIPEFITTER Ot M43.16 SPONDYLOLISTHESIS, LUMBAR REGION 02/07/2020 ROSA SNELL PIPEFITTER Ot M51.37 OTHER INTERVERTEBRAL DISC DEGENERATION, 02/07/2020 ROSA SNELL PIPEFITTER Ot G89 .4 CHRONIC PAIN SYNDROME 02/07/2020 ROSA SNELL PIPEFITTER Ot M53 .3 SACROCOCCYGEAL DISORDERS, NOT ELSEWHERE 02/07/2020 KERRY PETERS Ot M54. 2 CERVICALGIA 02/07/2020 KERRY PETERS Ot Z48. 89 ENCOUNTER FOR OTHER SPECIFIED SURGICAL A 02/07/2020 KERRY PETERS Ot Z98. 1 ARTHRODESIS STATUS 02/07/2020 ROSA SNELL PIPEFITTER Ot Z12.31 ENCNTR SCREEN MAMMOGRAM FOR MALIGNANT NE 02/07/2020 ARLIN PRICE PIPEFITTER Ot N64.4 MASTODYNIA 02/07/2020 ROSA SNELL PIPEFITTER Ot M47.26 OTHER SPONDYLOSIS WITH RADICULOPATHY, JULES 02/07/2020 ROSA SNELL PIPEFITTER Ot M48.061 SPINAL STENOSIS, LUMBAR REGION WITHOUT N 02/07/2020 ROSA SNELL PIPEFITTER Ot M51.17 INTVRT DISC DISORDERS W RADICULOPATHY, L 02/07/2020 JAKE SHAH MD Ot S42.221D 2-PART DISP FX OF SURG NK OF R HUMER, 7T 02/07/2020 JAKE SHAH MD Ot X58.XXXD EXPOSURE TO OTHER SPECIFIED FACTORS, SUB 02/14/2020 JAKE SHAH MD Ot S42.221D 2-PART DISP FX OF SURG NK OF R HUMER, 7T 02/14/2020 JAKE SHAH MD Ot X58.XXXD EXPOSURE TO OTHER SPECIFIED FACTORS, SUB 02/14/2020 JAKE SHAH MD, Ot S42.221D 2-PART DISP FX OF SURG NK OF R HUMER, 7T 02/14/2020 JAKE SHAH MD Ot X58.XXXD EXPOSURE TO OTHER SPECIFIED FACTORS, SUB 02/20/2020 WESTON WRIGHT MD Ot 789.00 ABDOMINAL PAIN, UNSPECIFIED SITE 02/20/2020 WESTON WRIGHT MD Ot 793.11 SOLITARY PULMONARY NODULE 02/20/2020 WESTON WRIGHT MD Ot 593 .9 RENAL URETERAL DIS NOS 02/20/2020 MARGUERITE WAITE MD Ot Z01.81 8 ENCOUNTER FOR OTHER PREPROCEDURAL EXAMIN 02/20/2020 MARGUERITE WAITE MD Ot Z12.11 ENCOUNTER FOR SCREENING FOR MALIGNANT NE 02/20/2020 MARGUERITE WAITE MD Ot Z86.01 0 PERSONAL HISTORY OF COLONIC POLYPS 02/20/2020 MARGUERITE WAITE MD Ot Z87.11 PERSONAL HISTORY OF PEPTIC ULCER DISEASE 02/20/2020 FOREIGN HORAN RADIOLOGICAL ENGINEER Ot E11.9 TYPE 2 DIABETES MELLITUS WITHOUT COMPLIC 02/20/2020 FOREIGN HORAN RADIOLOGICAL ENGINEER Ot E78.4 OTHER HYPERLIPIDEMIA 02/20/2020 FOREIGN HORAN RADIOLOGICAL ENGINEER Ot I 10 ESSENTIAL (PRIMARY) HYPERTENSION 02/20/2020 FOREIGN HORAN RADIOLOGICAL ENGINEER Ot I25.10 ATHSCL HEART DISEASE OF [place] CORONARY 02/20/2020 FOREIGN HORAN RADIOLOGICAL ENGINEER Ot I65.23 OCCLUSION AND STENOSIS OF BILATERAL [place] 02/20/2020 FOREIGN HORAN RADIOLOGICAL ENGINEER Ot R07.89 OTHER CHEST PAIN 02/20/2020 FOREIGN HORAN RADIOLOGICAL ENGINEER Ot E11.9 TYPE 2 DIABETES MELLITUS WITHOUT COMPLIC 02/20/2020 BLANCAS, PRISCILLA Butler PIPEFITTER Ot N28.89 OTHER SPECIFIED DISORDERS OF KIDNEY AND 02/20/2020 BLANCAS, PRISCILLA R PIPEFITTER Ot N28.89 OTHER SPECIFIED DISORDERS OF KIDNEY AND 02/20/2020 BLANCAS, PRISCILLA Butler PIPEFITTER Ot R91.1 SOLITARY PULMONARY NODULE 02/20/2020 BLANCAS, PRISCILLA Butler PIPEFITTER Ot N28.1 CYST OF KIDNEY, ACQUIRED 02/20/2020 BLANCAS, PRISCILLA Butler PIPEFITTER Ot N28.89 OTHER SPECIFIED DISORDERS OF KIDNEY AND 02/20/2020 BLANCAS, PRISCILLA Butler PIPEFITTER Ot Z90.49 ACQUIRED ABSENCE OF OTHER SPECIFIED PART 02/20/2020 BLANCAS, PRISCILLA Butler PIPEFITTER Ot Z12.31 ENCNTR SCREEN MAMMOGRAM FOR MALIGNANT NE 02/20/2020 BLANCAS, PRISCILLA Butler PIPEFITTER Ot C64.2 MALIGNANT NEOPLASM OF LEFT KIDNEY, EXCEP 02/20/2020 BLANCAS, PRISCILLA Butler PIPEFITTER Ot M25.78 OSTEOPHYTE, VERTEBRAE 02/20/2020 BLANCAS, PRISCILLA Butler PIPEFITTER Ot M47.22 OTHER SPONDYLOSIS WITH RADICULOPATHY, CE 02/20/2020 BLANCAS, PRISCILLA Butler PIPEFITTER Ot M48.03 SPINAL STENOSIS, CERVICOTHORACIC REGION 02/20/2020 BLANCAS, PRISCILLA Butler PIPEFITTER Ot M50.121 CERVICAL DISC DISORDER AT C4-C5 LEVEL WI 02/20/2020 BLANCAS, PRISCILLA R PIPEFITTER Ot M50.13 CERVICAL DISC DISORDER W RADICULOPATHY, 02/20/2020 BLANCAS, PRISCILLA Butler PIPEFITTER Ot 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 02/20/2020 ROSA SNELL PIPEFITTER Ot M43.16 SPONDYLOLISTHESIS, LUMBAR REGION 02/20/2020 ROSA SNELL PIPEFITTER Ot M51.37 OTHER INTERVERTEBRAL DISC DEGENERATION, 02/20/2020 RSOA SNELL PIPEFITTER Ot G89 .4 CHRONIC PAIN SYNDROME 02/20/2020 ROSA SNELL PIPEFITTER Ot M53 .3 SACROCOCCYGEAL DISORDERS, NOT ELSEWHERE 02/20/2020 KERRY PETERS Ot M54. 2 CERVICALGIA 02/20/2020 KERRY PETERS Ot Z48. 89 ENCOUNTER FOR OTHER SPECIFIED SURGICAL A 02/20/2020 KERRY PETERS Ot Z98. 1 ARTHRODESIS STATUS 02/20/2020 ROSA SNELL PIPEFITTER Ot Z12.31 ENCNTR SCREEN MAMMOGRAM FOR MALIGNANT NE 02/20/2020 ALBERT ARLIN J PIPEFITTER Ot N64.4 MASTODYNIA 02/20/2020 ROSA SNELL PIPEFITTER Ot M47.26 OTHER SPONDYLOSIS WITH RADICULOPATHY, JULES 02/20/2020 ROSA SNELL PIPEFITTER Ot M48.061 SPINAL STENOSIS, LUMBAR REGION WITHOUT N 02/20/2020 ROSA SNELL PIPEFITTER Ot M51.17 INTVRT DISC DISORDERS W RADICULOPATHY, L 02/20/2020 JAKE SHAH MD Ot S42.221D 2-PART DISP FX OF SURG NK OF Luke NGUYỄN, 7T 02/20/2020 JAKE SHAH MD Ot X58.XXXD EXPOSURE TO OTHER SPECIFIED FACTORS, SUB 02/20/2020 JAKE SHAH MD Ot S42.221D 2-PART DISP FX OF SURG NK OF Luke [place]GUY[place], 7T 02/20/2020 JAKE SHAH MD Ot X58.XXXD EXPOSURE TO OTHER SPECIFIED FACTORS, SUB 02/22/2020 WESTON WRIGHT MD Ot 789.00 ABDOMINAL PAIN, UNSPECIFIED SITE 02/22/2020 WESTON WRIGHT MD Ot 793.11 SOLITARY PULMONARY NODULE 02/22/2020 WESTON WRIGHT MD Ot 593 .9 RENAL URETERAL DIS NOS 02/22/2020 MARGUERITE WAITE MD Ot Z01.81 8 ENCOUNTER FOR OTHER PREPROCEDURAL EXAMIN 02/22/2020 MARGUERITE WAITE MD Ot Z12.11 ENCOUNTER FOR SCREENING FOR MALIGNANT NE 02/22/2020 MARGUERITE WAITE MD Ot Z86.01 0 PERSONAL HISTORY OF COLONIC POLYPS 02/22/2020 MARGUERITE WAITE MD Ot Z87.11 PERSONAL HISTORY OF PEPTIC ULCER DISEASE 02/22/2020 FOREIGN HORAN Ot E11.9 TYPE 2 DIABETES MELLITUS WITHOUT COMPLIC 02/22/2020 AUNG FOREIGN Morrison RADIOLOGICAL ENGINEER Ot E78.4 OTHER HYPERLIPIDEMIA 02/22/2020 BAIMA, FOREIGN Morrison RADIOLOGICAL ENGINEER Ot I 10 ESSENTIAL (PRIMARY) HYPERTENSION 02/22/2020 BAIMA, FOREIGN Morrison RADIOLOGICAL ENGINEER Ot I25.10 ATHSCL HEART DISEASE OF [place] CORONARY 02/22/2020 BAIMA, FOREIGN Morrison RADIOLOGICAL ENGINEER Ot I65.23 OCCLUSION AND STENOSIS OF BILATERAL RUSS 02/22/2020 BAIMA, FOREIGN Morrison RADIOLOGICAL ENGINEER Ot R07.89 OTHER CHEST PAIN 02/22/2020 BAIMA, FOREIGN Morrison RADIOLOGICAL ENGINEER Ot E11.9 TYPE 2 DIABETES MELLITUS WITHOUT COMPLIC 02/22/2020 BLANCAS, PRISCILLA R PIPEFITTER Ot N28.89 OTHER SPECIFIED DISORDERS OF KIDNEY AND 02/22/2020 BLANCAS, PRISCILLA R PIPEFITTER Ot N28.89 OTHER SPECIFIED DISORDERS OF KIDNEY AND 02/22/2020 BLANCAS, PRISCILLA Butler PIPEFITTER Ot R91.1 SOLITARY PULMONARY NODULE 02/22/2020 BLANCAS, PRISCILLA Butler PIPEFITTER Ot N28.1 CYST OF KIDNEY, ACQUIRED 02/22/2020 BLANCAS, PRISCILLA Butler PIPEFITTER Ot N28.89 OTHER SPECIFIED DISORDERS OF KIDNEY AND 02/22/2020 BLANCAS, PRISCILLA Butler PIPEFITTER Ot Z90.49 ACQUIRED ABSENCE OF OTHER SPECIFIED PART 02/22/2020 BLANCAS, PRISCILLA Butler PIPEFITTER Ot Z12.31 ENCNTR SCREEN MAMMOGRAM FOR MALIGNANT NE 02/22/2020 BLANCAS, PRISCILLA Butler PIPEFITTER Ot C64.2 MALIGNANT NEOPLASM OF LEFT KIDNEY, EXCEP 02/22/2020 BLANCAS, PRISCILLA Butler PIPEFITTER Ot M25.78 OSTEOPHYTE, VERTEBRAE 02/22/2020 BLANCAS, PRISCILLA Butler PIPEFITTER Ot M47.22 OTHER SPONDYLOSIS WITH RADICULOPATHY, CE 02/22/2020 BLANCAS, PRISCILLA Butler PIPEFITTER Ot M48.03 SPINAL STENOSIS, CERVICOTHORACIC REGION 02/22/2020 BLANCAS, PRISCILLA Butler PIPEFITTER Ot M50.121 CERVICAL DISC DISORDER AT C4-C5 LEVEL WI 02/22/2020 BLANCAS, PRISCILLA Butler PIPEFITTER Ot M50.13 CERVICAL DISC DISORDER W RADICULOPATHY, 02/22/2020 BLANCAS, PRISCILLA Butler PIPEFITTER Ot 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 02/22/2020 ROSA SNELL PIPEFITTER Ot M43.16 SPONDYLOLISTHESIS, LUMBAR REGION 02/22/2020 ALISALCIRASUSSY Torres PIPEFITTER Ot M51.37 OTHER INTERVERTEBRAL DISC DEGENERATION, 02/22/2020 KING ROSA D PIPEFITTER Ot G89 .4 CHRONIC PAIN SYNDROME 02/22/2020 ROSA SNELL PIPEFITTER Ot M53 .3 SACROCOCCYGEAL DISORDERS, NOT ELSEWHERE 02/22/2020 KERRY PETERS Ot M54. 2 CERVICALGIA 02/22/2020 KERRY PETERS Ot Z48. 89 ENCOUNTER FOR OTHER SPECIFIED SURGICAL A 02/22/2020 KERRY PETERS Ot Z98. 1 ARTHRODESIS STATUS 02/22/2020 ALISALCIRASUSSY Torres PIPEFITTER Ot Z12.31 ENCNTR SCREEN MAMMOGRAM FOR MALIGNANT NE 02/22/2020 ARLIN PRICE PIPEFITTER Ot N64.4 MASTODYNIA 02/22/2020 ROSA SNELL PIPEFITTER Ot M47.26 OTHER SPONDYLOSIS WITH RADICULOPATHY, JULES 02/22/2020 ROSA SNELL PIPEFITTER Ot M48.061 SPINAL STENOSIS, LUMBAR REGION WITHOUT N 02/22/2020 KING ROSA D PIPEFITTER Ot M51.17 INTVRT DISC DISORDERS W RADICULOPATHY, L 02/22/2020 JAKE SHAH MD Ot S42.221D 2-PART DISP FX OF SURG NK OF [place], 7T 02/22/2020 JAKE SHAH MD Ot X58.XXXD EXPOSURE TO OTHER SPECIFIED FACTORS, SUB 02/22/2020 JAKE SHAH MD Ot S42.221D 2-PART DISP FX OF SURG NK OF [place], 7T 02/22/2020 JAKE SHAH MD Ot X58.XXXD EXPOSURE TO OTHER SPECIFIED FACTORS, SUB 02/22/2020 WESTON WRIGHT MD Ot 789.00 ABDOMINAL PAIN, UNSPECIFIED SITE 02/22/2020 WESTON WRIGHT MD Ot 793.11 SOLITARY PULMONARY NODULE 02/22/2020 WESTON WRIGHT MD Ot 593 .9 RENAL URETERAL DIS NOS 02/22/2020 MARGUERITE WAITE MD Ot Z01.81 8 ENCOUNTER FOR OTHER PREPROCEDURAL EXAMIN 02/22/2020 MARGUERITE WAITE MD Ot Z12.11 ENCOUNTER FOR SCREENING FOR MALIGNANT NE 02/22/2020 MARGUERITE WAITE MD, Ot Z86.01 0 PERSONAL HISTORY OF COLONIC POLYPS 02/22/2020 MARGUERITE WAITE MD Ot Z87.11 PERSONAL HISTORY OF PEPTIC ULCER DISEASE 02/22/2020 BAIMA, FOREIGN L RADIOLOGICAL ENGINEER Ot E11.9 TYPE 2 DIABETES MELLITUS WITHOUT COMPLIC 02/22/2020 BAIMA, FOREIGN L RADIOLOGICAL ENGINEER Ot E78.4 OTHER HYPERLIPIDEMIA 02/22/2020 BAIMA, FOREIGN L RADIOLOGICAL ENGINEER Ot I 10 ESSENTIAL (PRIMARY) HYPERTENSION 02/22/2020 BAIMA, FOREIGN L RADIOLOGICAL ENGINEER Ot I25.10 ATHSCL HEART DISEASE OF [place] CORONARY 02/22/2020 BAIMA, FOREIGN L RADIOLOGICAL ENGINEER Ot I65.23 OCCLUSION AND STENOSIS OF BILATERAL [place] 02/22/2020 BAIMA, FOREIGN L RADIOLOGICAL ENGINEER Ot R07.89 OTHER CHEST PAIN 02/22/2020 BAIMA, FOREIGN L RADIOLOGICAL ENGINEER Ot E11.9 TYPE 2 DIABETES MELLITUS WITHOUT COMPLIC 02/22/2020 BLANCAS, PRISCILLA Butler PIPEFITTER Ot N28.89 OTHER SPECIFIED DISORDERS OF KIDNEY AND 02/22/2020 BLANCAS, PRISCILLA R PIPEFITTER Ot N28.89 OTHER SPECIFIED DISORDERS OF KIDNEY AND 02/22/2020 BLANCAS, PRISCILLA Butler PIPEFITTER Ot R91.1 SOLITARY PULMONARY NODULE 02/22/2020 BLANCAS, PRISCILLA Butler PIPEFITTER Ot N28.1 CYST OF KIDNEY, ACQUIRED 02/22/2020 BLANCAS, PRISCILLA Butler PIPEFITTER Ot N28.89 OTHER SPECIFIED DISORDERS OF KIDNEY AND 02/22/2020 BLANCAS, PRICSILLA Butler PIPEFITTER Ot Z90.49 ACQUIRED ABSENCE OF OTHER SPECIFIED PART 02/22/2020 YONNY, PRISCILLA Butler PIPEFITTER Ot Z12.31 ENCNTR SCREEN MAMMOGRAM FOR MALIGNANT NE 02/22/2020 PRISCILLA BLANCAS APRN Ot C64.2 MALIGNANT NEOPLASM OF LEFT KIDNEY, EXCEP 02/22/2020 BLANCASPRISCILLA PIPEFITTER Ot M25.78 OSTEOPHYTE, VERTEBRAE 02/22/2020 BLANCAS, PRISCILLA Butler PIPEFITTER Ot M47.22 OTHER SPONDYLOSIS WITH RADICULOPATHY, CE 02/22/2020 PRISCILLA BLANCAS PIPEFITTER Ot M48.03 SPINAL STENOSIS, CERVICOTHORACIC REGION 02/22/2020 BLANCASPRISCILLA PIPEFITTER Ot M50.121 CERVICAL DISC DISORDER AT C4-C5 LEVEL [place] 02/22/2020 PRISCILLA BLANCAS PIPEFITTER Ot M50.13 CERVICAL DISC DISORDER W RADICULOPATHY, 02/22/2020 PRISCILLA BLANCAS PIPEFITTER Ot 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 2 CERVICALGIA 02/22/2020 KERRY PETERS Ot Z48. 89 ENCOUNTER FOR OTHER SPECIFIED SURGICAL A 02/22/2020 KERRY PETERS Ot Z98. 1 ARTHRODESIS STATUS 02/22/2020 ROSA SNELL PIPEFITTER Ot Z12.31 ENCNTR SCREEN MAMMOGRAM FOR MALIGNANT NE 02/22/2020 ARLIN PRICE PIPEFITTER Ot N64.4 MASTODYNIA 02/22/2020 ROSA SNELL PIPEFITTER Ot M47.26 OTHER SPONDYLOSIS WITH RADICULOPATHY, JULES 02/22/2020 ALCIRA SNELLTA Brian PIPEFITTER Ot M48.061 SPINAL STENOSIS, LUMBAR REGION WITHOUT N 02/22/2020 ALCIRA SNELLTA Brian PIPEFITTER Ot M51.17 INTVRT DISC DISORDERS W RADICULOPATHY, L 02/22/2020 JAKE SHAH MD Ot S42.221D 2-PART DISP FX OF SURG NK OF Luke NGUYỄN, 7T 02/22/2020 JAKE SHAH MD Ot X58.XXXD EXPOSURE TO OTHER SPECIFIED FACTORS, SUB 02/22/2020 JAKE SHAH MD Ot S42.221D 2-PART DISP FX OF SURG NK OF Luke NGUYỄN, 7T 02/22/2020 JAKE SHAH MD Ot X58.XXXD EXPOSURE TO OTHER SPECIFIED FACTORS, SUB 02/22/2020 WESTON WRIGHT MD Ot 789.00 ABDOMINAL PAIN, UNSPECIFIED SITE 02/22/2020 BROWN MD, WESTON K Ot 793.11 SOLITARY PULMONARY NODULE 02/22/2020 ORTIZ MOISE, WESTON K Ot 593 .9 RENAL URETERAL DIS NOS 02/22/2020 MARGUERITE WAITE MD, Ot Z01.81 8 ENCOUNTER FOR OTHER PREPROCEDURAL EXAMIN 02/22/2020 MARGUERITE WAITE MD, Ot Z12.11 ENCOUNTER FOR SCREENING FOR MALIGNANT NE 02/22/2020 MARGUERITE WAITE MD, Ot Z86.01 0 PERSONAL HISTORY OF COLONIC POLYPS 02/22/2020 MARGUERITE WAITE MD, Ot Z87.11 PERSONAL HISTORY OF PEPTIC ULCER DISEASE 02/22/2020 BAIMA, FOREIGN L RADIOLOGICAL ENGINEER Ot E11.9 TYPE 2 DIABETES MELLITUS WITHOUT COMPLIC 02/22/2020 BAIMA FOREIGN L RADIOLOGICAL ENGINEER Ot E78.4 OTHER HYPERLIPIDEMIA 02/22/2020 BAIMA, FOREIGN L RADIOLOGICAL ENGINEER Ot I 10 ESSENTIAL (PRIMARY) HYPERTENSION 02/22/2020 BAIMA FOREIGN L RADIOLOGICAL ENGINEER Ot I25.10 ATHSCL HEART DISEASE OF [place] CORONARY 02/22/2020 BAIMA FOREIGN L RADIOLOGICAL ENGINEER Ot I65.23 OCCLUSION AND STENOSIS OF BILATERAL [place] 02/22/2020 BAIMA FOREIGN L RADIOLOGICAL ENGINEER Ot R07.89 OTHER CHEST PAIN 02/22/2020 BAIMA, FOREIGN L RADIOLOGICAL ENGINEER Ot E11.9 TYPE 2 DIABETES MELLITUS WITHOUT COMPLIC 02/22/2020 BLANCAS, PRISCILLA Butler PIPEFITTER Ot N28.89 OTHER SPECIFIED DISORDERS OF KIDNEY AND 02/22/2020 BLANCAS, PRISCILLA Butler PIPEFITTER Ot N28.89 OTHER SPECIFIED DISORDERS OF KIDNEY AND 02/22/2020 BLANCAS, PRISCILLA Butler PIPEFITTER Ot R91.1 SOLITARY PULMONARY NODULE 02/22/2020 BLANCAS, PRISCILLA Butler PIPEFITTER Ot N28.1 CYST OF KIDNEY, ACQUIRED 02/22/2020 BLANCAS, PRISCILLA Butler PIPEFITTER Ot N28.89 OTHER SPECIFIED DISORDERS OF KIDNEY AND 02/22/2020 BLANCAS, PRISCILLA Butler PIPEFITTER Ot Z90.49 ACQUIRED ABSENCE OF OTHER SPECIFIED PART 02/22/2020 BLANCAS, PRISCILLA Butler PIPEFITTER Ot Z12.31 ENCNTR SCREEN MAMMOGRAM FOR MALIGNANT NE 02/22/2020 YONNY, PRISCILLA Butler PIPEFITTER Ot C64.2 MALIGNANT NEOPLASM OF LEFT KIDNEY, EXCEP 02/22/2020 BLANCAS, PRISCILLA Butler PIPEFITTER Ot M25.78 OSTEOPHYTE, VERTEBRAE 02/22/2020 PRISCILLA BLANCAS PIPEFITTER Ot M47.22 OTHER SPONDYLOSIS WITH RADICULOPATHY, CE 02/22/2020 PRISCILLA BLANCAS PIPEFITTER Ot M48.03 SPINAL STENOSIS, CERVICOTHORACIC REGION 02/22/2020 PRISCILLA BLANCAS R PIPEFITTER Ot M50.121 CERVICAL DISC DISORDER AT C4-C5 LEVEL WI 02/22/2020 PRISCILLA BLANCAS PIPEFITTER Ot M50.13 CERVICAL DISC DISORDER W RADICULOPATHY, 02/22/2020 PRISCILLA BLANCAS PIPEFITTER Ot 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 02/22/2020 ROSA SNELL PIPEFITTER Ot M43.16 SPONDYLOLISTHESIS, LUMBAR REGION 02/22/2020 ROSA SNELL PIPEFITTER Ot M51.37 OTHER INTERVERTEBRAL DISC DEGENERATION, 02/22/2020 ROSA SNELL PIPEFITTER Ot G89 .4 CHRONIC PAIN SYNDROME 02/22/2020 ROSA SNELL PIPEFITTER Ot M53 .3 SACROCOCCYGEAL DISORDERS, NOT ELSEWHERE 02/22/2020 KERRY PETERS Ot M54. 2 CERVICALGIA 02/22/2020 KERRY PETERS Ot Z48. 89 ENCOUNTER FOR OTHER SPECIFIED SURGICAL A 02/22/2020 KERRY PETERS Ot Z98. 1 ARTHRODESIS STATUS 02/22/2020 ROSA SNELL PIPEFITTER Ot Z12.31 ENCNTR SCREEN MAMMOGRAM FOR MALIGNANT NE 02/22/2020 ARLIN PRICE PIPEFITTER Ot N64.4 MASTODYNIA 02/22/2020 ROSA SNELL PIPEFITTER Ot M47.26 OTHER SPONDYLOSIS WITH RADICULOPATHY, JULES 02/22/2020 ROSA SNELL PIPEFITTER Ot M48.061 SPINAL STENOSIS, LUMBAR REGION WITHOUT N 02/22/2020 ROSA SNELL PIPEFITTER Ot M51.17 INTVRT DISC DISORDERS W RADICULOPATHY, L 02/22/2020 JAKE SHAH MD Ot S42.221D 2-PART DISP FX OF SURG NK OF R HUMER, 7T 02/22/2020 JAKE SHAH MD Ot X58.XXXD EXPOSURE TO OTHER SPECIFIED FACTORS, SUB 02/22/2020 JAKE SHAH MD Ot S42.221D 2-PART DISP FX OF SURG NK OF Luke NGUYỄN, 7T 02/22/2020 PABLO MOISE, JAKE Torres Ot X58.XXXD EXPOSURE TO OTHER SPECIFIED FACTORS, SUB 02/22/2020 WETSON WRIGHT MD Ot 789.00 ABDOMINAL PAIN, UNSPECIFIED SITE 02/22/2020 WESTON WRIGHT MD Ot 793.11 SOLITARY PULMONARY NODULE 02/22/2020 WESTON WRIGHT MD Ot 593 .9 RENAL URETERAL DIS NOS 02/22/2020 MARGUERITE WAITE MD, Ot Z01.81 8 ENCOUNTER FOR OTHER PREPROCEDURAL EXAMIN 02/22/2020 MARGUERITE WAITE MD, Ot Z12.11 ENCOUNTER FOR SCREENING FOR MALIGNANT NE 02/22/2020 MARGUERITE WAITE MD, Ot Z86.01 0 PERSONAL HISTORY OF COLONIC POLYPS 02/22/2020 MARGUERITE WAITE MD, Ot Z87.11 PERSONAL HISTORY OF PEPTIC ULCER DISEASE 02/22/2020 BAIMA FOREIGN L RADIOLOGICAL ENGINEER Ot E11.9 TYPE 2 DIABETES MELLITUS WITHOUT COMPLIC 02/22/2020 AUNG FOREIGN L RADIOLOGICAL ENGINEER Ot E78.4 OTHER HYPERLIPIDEMIA 02/22/2020 BAIBRANDI FOREIGN L RADIOLOGICAL ENGINEER Ot I 10 ESSENTIAL (PRIMARY) HYPERTENSION 02/22/2020 BAIBRANDI FOREIGN L RADIOLOGICAL ENGINEER Ot I25.10 ATHSCL HEART DISEASE OF [place] CORONARY 02/22/2020 BAIMA FOREIGN L RADIOLOGICAL ENGINEER Ot I65.23 OCCLUSION AND STENOSIS OF B[place]AL [place] 02/22/2020 BAIMA FOREIGN L RADIOLOGICAL ENGINEER Ot R07.89 OTHER CHEST PAIN 02/22/2020 BAIMA FOREIGN L RADIOLOGICAL ENGINEER Ot E11.9 TYPE 2 DIABETES MELLITUS WITHOUT COMPLIC 02/22/2020 PRISCILLA BLANCAS PIPEFITTER Ot N28.89 OTHER SPECIFIED DISORDERS OF KIDNEY AND 02/22/2020 BLANCASPRISCILLA Yee PIPEFITTER Ot N28.89 OTHER SPECIFIED DISORDERS OF KIDNEY AND 02/22/2020 PRISCILLA BLANCAS PIPEFITTER Ot R91.1 SOLITARY PULMONARY NODULE 02/22/2020 PRISCILLA BLANCAS PIPEFITTER Ot N28.1 CYST OF KIDNEY, ACQUIRED 02/22/2020 PRISCILLA BLANCAS PIPEFITTER Ot N28.89 OTHER SPECIFIED DISORDERS OF KIDNEY AND 02/22/2020 PRISCILLA BLANCAS PIPEFITTER Ot Z90.49 ACQUIRED ABSENCE OF OTHER SPECIFIED PART 02/22/2020 PRISCILLA BLANCAS R PIPEFITTER Ot Z12.31 ENCNTR SCREEN MAMMOGRAM FOR MALIGNANT NE 02/22/2020 BLANCAS, PRISCILLA Luke PIPEFITTER Ot C64.2 MALIGNANT NEOPLASM OF LEFT KIDNEY, EXCEP 02/22/2020 BLANCAS, PRISCILLA Luke PIPEFITTER Ot M25.78 OSTEOPHYTE, VERTEBRAE 02/22/2020 BLANCAS, PRISCILLA R PIPEFITTER Ot M47.22 OTHER SPONDYLOSIS WITH RADICULOPATHY, CE 02/22/2020 PRISCILLA BLANCAS R PIPEFITTER Ot M48.03 SPINAL STENOSIS, CERVICOTHORACIC REGION 02/22/2020 BLANCASPRISCILLA Yee R PIPEFITTER Ot M50.121 CERVICAL DISC DISORDER AT C4-C5 LEVEL WI 02/22/2020 BLANCASPRISCILLA Yee R PIPEFITTER Ot M50.13 CERVICAL DISC DISORDER W RADICULOPATHY, 02/22/2020 BLANCAS, PRISCILLA Butler PIPEFITTER Ot 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 02/22/2020 ROSA SNELL PIPEFITTER Ot M43.16 SPONDYLOLISTHESIS, LUMBAR REGION 02/22/2020 ROSA SNELL PIPEFITTER Ot M51.37 OTHER INTERVERTEBRAL DISC DEGENERATION, 02/22/2020 ROSA SNELL PIPEFITTER Ot G89 .4 CHRONIC PAIN SYNDROME 02/22/2020 ROSA SNELL PIPEFITTER Ot M53 .3 SACROCOCCYGEAL DISORDERS, NOT ELSEWHERE 02/22/2020 EKRRY PETERS Ot M54. 2 CERVICALGIA 02/22/2020 KERRY PETERS Ot Z48. 89 ENCOUNTER FOR OTHER SPECIFIED SURGICAL A 02/22/2020 KERRY PETERS Ot Z98. 1 ARTHRODESIS STATUS 02/22/2020 ROSA SNELL PIPEFITTER Ot Z12.31 ENCNTR SCREEN MAMMOGRAM FOR MALIGNANT NE 02/22/2020 ARLIN PRICE PIPEFITTER Ot N64.4 MASTODYNIA 02/22/2020 ROSA SNELL PIPEFITTER Ot M47.26 OTHER SPONDYLOSIS WITH RADICULOPATHY, JULES 02/22/2020 ROSA SNELL PIPEFITTER Ot M48.061 SPINAL STENOSIS, LUMBAR REGION WITHOUT N 02/22/2020 ROSA SNELL PIPEFITTER Ot M51.17 INTVRT DISC DISORDERS W RADICULOPATHY, L 02/22/2020 JAKE SHAH MD, Ot S42.221D 2-PART DISP FX OF SURG NK OF R HUMER, 7T 02/22/2020 JAKE SHAH MD, Ot X58.XXXD EXPOSURE TO OTHER SPECIFIED FACTORS, SUB 02/22/2020 JAKE SHAH MD, Ot S42.221D 2-PART DISP FX OF SURG NK OF R HUMER, 7T 02/22/2020 JAKE SHAH MD, Ot X58.XXXD EXPOSURE TO OTHER SPECIFIED FACTORS, SUB 02/23/2020 TAMY WINTERS MD Ot N28.89 OTHER SPECIFIED DISORDERS OF KIDNEY AND 02/23/2020 TAMY WINTERS MD Ot Z90.5 ACQUIRED ABSENCE OF KIDNEY 02/23/2020 TAMY WINTERS MD Ot N28.89 OTHER SPECIFIED DISORDERS OF KIDNEY AND 02/23/2020 TAMY WINTERS MD Ot Z90.5 ACQUIRED ABSENCE OF KIDNEY 02/27/2020 WESTON WRIGHT MD Ot 789.00 ABDOMINAL PAIN, UNSPECIFIED SITE 02/27/2020 WESTON WRIGHT MD Ot 793.11 SOLITARY PULMONARY NODULE 02/27/2020 WESTON WRIGHT MD Ot 593 .9 RENAL URETERAL DIS NOS 02/27/2020 MARGUERITE WAITE MD Ot Z01.81 8 ENCOUNTER FOR OTHER PREPROCEDURAL EXAMIN 02/27/2020 MARGUERITE WAITE MD Ot Z12.11 ENCOUNTER FOR SCREENING FOR MALIGNANT NE 02/27/2020 MARGUERITE WAITE MD Ot Z86.01 0 PERSONAL HISTORY OF COLONIC POLYPS 02/27/2020 MARGUERITE WAITE MD Ot Z87.11 PERSONAL HISTORY OF PEPTIC ULCER DISEASE 02/27/2020 AUNG FOREIGN L RADIOLOGICAL ENGINEER Ot E11.9 TYPE 2 DIABETES MELLITUS WITHOUT COMPLIC 02/27/2020 AUNG FOREIGN L RADIOLOGICAL ENGINEER Ot E78.4 OTHER HYPERLIPIDEMIA 02/27/2020 BAIBRANDI, FOREIGN L RADIOLOGICAL ENGINEER Ot I 10 ESSENTIAL (PRIMARY) HYPERTENSION 02/27/2020 AUNG FOREIGN L RADIOLOGICAL ENGINEER Ot I25.10 ATHSCL HEART DISEASE OF [place] CORONARY 02/27/2020 AUNG FOREIGN L RADIOLOGICAL ENGINEER Ot I65.23 OCCLUSION AND STENOSIS OF BILATERAL [place] 02/27/2020 BAIMA, FOREIGN L RADIOLOGICAL ENGINEER Ot R07.89 OTHER CHEST PAIN 02/27/2020 BAIMA FOREIGN L RADIOLOGICAL ENGINEER Ot E11.9 TYPE 2 DIABETES MELLITUS WITHOUT COMPLIC 02/27/2020 BLANCAS, PRISCILLA Luke PIPEFITTER Ot N28.89 OTHER SPECIFIED DISORDERS OF KIDNEY AND 02/27/2020 BLANCAS, PRISCILLA R PIPEFITTER Ot N28.89 OTHER SPECIFIED DISORDERS OF KIDNEY AND 02/27/2020 BLANCAS, PRISCILLA Butler PIPEFITTER Ot R91.1 SOLITARY PULMONARY NODULE 02/27/2020 BLANCAS, PRISCILLA Butler PIPEFITTER Ot N28.1 CYST OF KIDNEY, ACQUIRED 02/27/2020 BLANCAS, PRISCILLA R PIPEFITTER Ot N28.89 OTHER SPECIFIED DISORDERS OF KIDNEY AND 02/27/2020 BLANCAS, PRISCILLA Luke PIPEFITTER Ot Z90.49 ACQUIRED ABSENCE OF OTHER SPECIFIED PART 02/27/2020 BLANCAS, PRISCILLA Butler PIPEFITTER Ot Z12.31 ENCNTR SCREEN MAMMOGRAM FOR MALIGNANT NE 02/27/2020 BLANCAS, PRISCILLA Butler PIPEFITTER Ot C64.2 MALIGNANT NEOPLASM OF LEFT KIDNEY, EXCEP 02/27/2020 BLANCAS, PRISCILLA Butler PIPEFITTER Ot M25.78 OSTEOPHYTE, VERTEBRAE 02/27/2020 BLANCAS, PRISCILLA Butler PIPEFITTER Ot M47.22 OTHER SPONDYLOSIS WITH RADICULOPATHY, CE 02/27/2020 BLANCAS, PRISCILLA Butler PIPEFITTER Ot M48.03 SPINAL STENOSIS, CERVICOTHORACIC REGION 02/27/2020 BLANCAS, PRISCILLA Bulter PIPEFITTER Ot M50.121 CERVICAL DISC DISORDER AT C4-C5 LEVEL [place] 02/27/2020 BLANCAS, PRISCILLA Butler PIPEFITTER Ot M50.13 CERVICAL DISC DISORDER W RADICULOPATHY, 02/27/2020 BLANCAS, PRISCILLA Butler PIPEFITTER Ot 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 02/27/2020 ROSA SNELL PIPEFITTER Ot M43.16 SPONDYLOLISTHESIS, LUMBAR REGION 02/27/2020 ROSA SNELL PIPEFITTER Ot M51.37 OTHER INTERVERTEBRAL DISC DEGENERATION, 02/27/2020 ROSA SNELL PIPEFITTER Ot G89 .4 CHRONIC PAIN SYNDROME 02/27/2020 ROSA SNELL PIPEFITTER Ot M53 .3 SACROCOCCYGEAL DISORDERS, NOT ELSEWHERE 02/27/2020 KERRY PETERS Ot M54. 2 CERVICALGIA 02/27/2020 KERRY PETERS Ot Z48. 89 ENCOUNTER FOR OTHER SPECIFIED SURGICAL A 02/27/2020 KERRY PETERS Ot Z98. 1 ARTHRODESIS STATUS 02/27/2020 ROSA SNELL D PIPEFITTER Ot Z12.31 ENCNTR SCREEN MAMMOGRAM FOR MALIGNANT NE 02/27/2020 ARLIN PRICE PIPEFITTER Ot N64.4 MASTODYNIA 02/27/2020 ALCIRA SNELLTA D PIPEFITTER Ot M47.26 OTHER SPONDYLOSIS WITH RADICULOPATHY, JULES 02/27/2020 KING ROSA D PIPEFITTER Ot M48.061 SPINAL STENOSIS, LUMBAR REGION WITHOUT N 02/27/2020 KING ROSA D PIPEFITTER Ot M51.17 INTVRT DISC DISORDERS W RADICULOPATHY, L 02/27/2020 TAMY WINTERS MD Ot N28.89 OTHER SPECIFIED DISORDERS OF KIDNEY AND 02/27/2020 TAMY WINTERS MD Ot Z90.5 ACQUIRED ABSENCE OF KIDNEY 02/27/2020 JAKE SHAH MD Ot S42.221D 2-PART DISP FX OF SURG NK OF R HUMER, 7T 02/27/2020 JAKE SHAH MD, Ot X58.XXXD EXPOSURE TO OTHER SPECIFIED FACTORS, SUB 02/27/2020 JAKE SHAH MD, Ot S42.221D 2-PART DISP FX OF SURG NK OF R HUMER, 7T 02/27/2020 JAKE SHAH MD, Ot X58.XXXD EXPOSURE TO OTHER SPECIFIED FACTORS, SUB 02/28/2020 TAMY WINTERS MD Ot N28.89 OTHER SPECIFIED DISORDERS OF KIDNEY AND 02/28/2020 TAMY WINTERS MD Ot Z90.5 ACQUIRED ABSENCE OF KIDNEY 02/29/2020 JAKE SHAH MD Ot S42.221D 2-PART DISP FX OF SURG NK OF R HUMER, 7T 02/29/2020 JAKE SHAH MD Ot X58.XXXD EXPOSURE TO OTHER SPECIFIED FACTORS, SUB 03/04/2020 JAKE SHAH MD, Ot S42.221D 2-PART DISP FX OF SURG NK OF R HUMER, 7T 03/04/2020 JAKE SHAH MD Ot X58.XXXD EXPOSURE TO OTHER SPECIFIED FACTORS, SUB 03/14/2020 JAKE SHAH MD Ot S42.221D 2-PART DISP FX OF SURG NK OF R HUMER, 7T 03/14/2020 PABLO MOISE, JAKE Torres Ot X58.XXXD EXPOSURE TO OTHER SPECIFIED FACTORS, SUB Procedures There is no data. Results Test Result Range Urinalysis - 01/05/17 09:15 Icotest N/A Negative Urine Volume Urine Volume Sufficient (10mL) Urine-Appearance Clear Clear Urine-Bacteria Trace Urine-Bilirubin Negative Negative Urine-Blood Negative Negative Urine-Color Yellow Colorless-[place] ow Urine-Epithelial Cells 0-5/HPF Urine-Glucose Negative Negative Urine-Ketones Negative Negative Urine-Leukocytes Negative Negative Urine-Nitrite Negative Negative Urine-Other Urine Saved if Culture Need ed (48hrs from time of collection) Urine-pH 6.0 5-8.5 Urine-Protein Negative Negative Urine-RBC Rare/HPF Urine-Specific [place] 1.010 1.000-1 .030 Urine-WBC Few/HPF Urobilinogen 0.2 E.U./dL 0.2-1.0 Lipid [...] mm/hr 9-15 LymeDisease Antibodies, Total and IgM, W ith Reflex to WB - 03/18/17 14:10 LYME IGG/IGM AB <0.91 ISR 0.00-0.90 LYME DISEASE AB, QUANT, IGM <0.80 INDEX 0.00-0.79 Ehrlichia Ab Panel - 03/18/17 14:10 E. CHAFFEENSIS (HME) IGG TITER NEGATIVE NEG:<1:64 E. CHAFFEENSIS (HME) IGM TITER NEGATIVE NEG:<1:20 HGE IGG TITER NEGATIVE NEG:<1:64 HGE IGM TITER NEGATIVE NEG:<1:20 Thyroid Stimulating Hormone - 03/24/17 1 1:30 TSH 0.81 mIU/mL 0.32-5.00 Automated blood complete blood count (he mogram) [...] - 10/28/17 17:16 CULTURE, GENITAL SEE NOTE [facility] SUREPATH PAP RFX HPV mRNA E6/E7 - 17:16 CLINICAL INFORMATION: NR LMP: AGE 55 NRG PREV. PAP: UNKNOWN NRG PREV. BX: NRG SOURCE: Cervix NR STATEMENT OF ADEQUACY: NR INTERPRETATION/RESULT: NR CUPOLA CHARGER INSULATION: NRG INFECTION: NRG MICROALBUMIN/CREATININE RATIO, URINE - [...] 7-25 CREATININE 0.55 mg/dL 0.50-0.99 eGFR NON-AFR. N[place]AN 100 mL/min/1.73m2 > OR = 60 eGFR [...] 170 Thousand/uL 140-400 MPV 10.1 fL 7.5-12.5 [facility] SPOTTED FEVER, IgG, IgM - 04/17 05/05 [...] 7-25 CREATININE 0.86 mg/dL 0.50-0.99 eGFR NON-AFR. NICARAGUAN 71 mL/min/1.73m2 > OR = 60 eGFR [...] HPV mRNA E6/E7 - 17:46 CLINICAL INFORMATION: NR LMP: NRG PREV. PAP: 10/28/2017 NR PREV. BX: NRG SOURCE: NR STATEMENT OF ADEQUACY: NR INTERPRETATION/RESULT: [facility] CUPOLA CHARGER INSULATION: NR HPV mRNA E6/E7, SUREPATH VIAL Not Detected NOT DETECTED COMMENT [facility] Whole blood basic metabolic panel - 05/06 13:45 Serum or plasma sodium measurement (moles/volume) 139 mmol/L 135-145 Serum or plasma potassium measurement (moles/volume) 4.5 mmol/L 3.6-5.0 Serum or plasma chloride measurement (moles/volume) 104 mmol/L 98-107 Carbon dioxide 25 mmol/L 21-32 Serum or plasma anion gap determination (moles/volume) 10 mmol/L 5-14 Serum or plasma urea nitrogen measurement (mass/volume ) 18 mg/dL 7-18 Serum or plasma creatinine measurement (mass/volume) 0.83 mg/dL 0.60-1.30 Serum or plasma urea nitrogen/creatinine mass ratio 22 NRG Serum or plasma creatinine measurement w ith calculation of estimated glomerular filtration rate > NRG Serum or plasma glucose measurement (mass/volume) 144 mg/dL 70-105 Serum or plasma calcium measurement (mass/volume) 9.9 mg/dL 8.5-10.1 Complete blood count (CBC) with automate d white blood cell (WBC) differential - 03/26/20 13:40 Blood leukocytes automated count (number/volume) 10.2 10*3/uL 4.3-11.0 Blood erythrocytes automated count (number/volume) 4.77 10*6/uL 4.35-5.85 Venous blood hemoglobin measurement (mass/volume) 14.8 g/dL 11.5-16.0 Blood hematocrit (volume fraction) 43 % 35-52 Automated erythrocyte mean corpuscular volume 91 [ foz_us] 80-99 Automated erythrocyte mean corpuscular h emoglobin (mass per erythrocyte) 31 pg 25-34 Automated erythrocyte mean corpuscular h emoglobin concentration measurement (mass/volume) 34 g/dL 32-36 Automated erythrocyte distribution width ratio 13. 4 % 10.0- 14.5 Automated blood platelet count (count/volume) 195 10*3/uL 130-400 Automated blood platelet mean volume measurement 10.1 [foz_us] 7.4-10.4 Automated blood neutrophils/100 leukocytes 65 % 42-75 Automated blood lymphocytes/100 leukocytes 24 % 12-44 Blood monocytes/100 leukocytes 7 % 0-12 Automated blood eosinophils/100 leukocytes 4 % 0-10 Automated blood basophils/100 leukocytes 0 % 0-10 Blood neutrophils automated count (number/volume) 6.6 10*3 1.8-7.8 Blood lymphocytes automated count (number/volume) 2.4 10*3 1.0-4.0 Blood monocytes automated count (number/volume) 0. 8 10*3 0.0-1.0 Automated eosinophil count 0.4 10*3/uL 0 .0-0.3 Automated blood basophil count (count/volume) 0.0 10*3/uL 0.0-0.1 Complete urinalysis with reflex to cultu re - 03/26/20 13:55 Urine color determination YELLOW NRG Urine clarity determination CLEAR NR G Urine pH measurement by test strip 5.5 5-9 Specific gravity of urine by test strip >= 1.016-1.022 Urine protein assay by test strip, [...] cou nt by microscopy (number/high power field) RARE NRG Automated urine sediment leukocyte count by microscopy (number/high power field) [HPF] NRG Bacteria detection in urine sediment by light microsco py TRACE NRG Squamous epithelial cells detection in u rine sediment by light microscopy 0-2 NRG Crystals detection in urine sediment by light microsco py NONE NRG Casts detection in urine sediment by light microscopy NONE NRG Mucus detection in urine sediment by light microscopy NEGATIVE NRG Complete urinalysis with reflex to culture NO NRG Comprehensive metabolic panel - 03/26/20 14:15 Serum or plasma sodium measurement (moles/volume) 139 mmol/L 135-145 Serum or plasma potassium measurement (moles/volume) 4.2 mmol/L 3.6-5.0 Serum or plasma chloride measurement (moles/volume) 108 mmol/L 98-107 Carbon dioxide 21 mmol/L 21-32 Serum or plasma anion gap determination (moles/volume) 10 mmol/L 5-14 Serum or plasma urea nitrogen measurement (mass/volume ) 19 mg/dL 7-18 Serum or plasma creatinine measurement (mass/volume) 0.76 mg/dL 0.60-1.30 Serum or plasma urea nitrogen/creatinine mass ratio 25 NRG Serum or plasma creatinine measurement w ith calculation of estimated glomerular filtration rate > NRG Serum or plasma glucose measurement (mass/volume) 204 mg/dL 70-105 Serum or plasma calcium measurement (mass/volume) 9.2 mg/dL 8.5-10.1 Serum or plasma total bilirubin measurement (mass/volu me) 0.4 mg/dL 0.1-1.0 Serum or plasma alkaline phosphatase santi surement (enzymatic activity/volume) 126 U/L 40-136 Serum or plasma aspartate aminotransfera se measurement (enzymatic activity/volume) 20 U/L 5-34 Serum or plasma alanine aminotransferase measurement (enzymatic activity/volume) 12 U/L 0-55 Serum or plasma protein measurement (mass/volume) 7.6 g/dL 6.4-8.2 Serum or plasma albumin measurement (mass/volume) 3.9 g/dL 3.2-4.5 CALCIUM CORRECTED 9.3 mg/dL 8.5-10.1 Encounters ACCT No. Visit Date/Time Discharge Status Pt. Type Provider Facility Loc./Unit Complaint [id number] 06/08/2014 07:15:00 06/08/2014 10:40 :00 DIS Inpatient DAI CEDILLO [facility] OPS [id number] 12/28/2019 15:00:00 12/28/2019 23:59:5 9 CLS Outpatient ROSA SNELL [facility] [id number] 12/28/2019 15:00:00 Document Registration [id number] 10/17/2019 09:00:00 Document Registration [id number] 08/23/2019 14:20:00 Document Registration [id number] 05/03/2019 10:40:00 Document Registration [id number] 08/11/2018 12:00:00 Document Registration [id number] 05/16/2018 16:20:00 Document Registration [id number] 05/14/2018 12:25:00 Document Registration [id number] 04/14/2018 09:20:00 Document Registration [id number] 03/03/2018 10:00:00 Document Registration [id number] 12/28/2017 16:00:00 Document Registration [id number] 10/28/2017 15:40:00 Document Registration [id number] 03/19/2020 13:42:00 020 23:59:59 CLS Preadmit JAKE SHAH MD [facility] REHAB R FX OF PROXIMAL HUMERU S [id number] 02/27/2020 12:44:00 23:59:59 CLS Outpatient JAKE SHAH MD [facility] ORTHO [id number] 02/22/2020 13:15:00 23:59:59 CLS Outpatient TAMY WINTERS MD [facility] RAD LT RENAL MASS [id number] 02/13/2020 12:26:00 23:59:59 CLS Outpatient JAKE SHAH MD [facility] ORTHO [id number] 01/30/2020 12:21:00 23:59:59 CLS Outpatient JAKE SHAH MD [facility] ORTHO [id number] 01/21/2020 18:56:00 20:49:00 DIS Emergency KHOA FRANCO [facility] ER FALL/R SHOULDER PAIN [id number] 11/13/2019 14:21:00 14:39:00 DIS Outpatient SARTHAK COELLO MD [facility] REHAB LUMBAR RADICULO MORIAH [id number] 09/07/2019 03:36:00 05:36:00 DIS Emergency KADIE EDWARDS MD [facility] ER PAIN IN RT SIDE [id number] 08/31/2019 09:48:00 23:59:59 CLS Outpatient RSOA SNELL [facility]TER [facility] RAD LUMBAR BACK PAIN [id number] 05/31/2019 12:54:00 23:59:59 CLS Outpatient ARLIN PRICE [facility]TER [facility] RAD BREAST PAIN, LE FT [id number] 04/14/2019 13:21:00 14:27:00 DIS Outpatient ROSA SNELL PIPEFITTER [facility] REHAB CERV STENOSIS OF SPINAL CANAL; UE WEAKNESS FOLLOWI [id number] 01/16/2019 08:52:00 23:59:59 CLS Outpatient ROSA SNELL PIPEFITTER Via [facility] RAD SCREENING [id number] 12/12/2018 09:34:00 23:59:59 CLS Outpatient KERRY PETERS [facility] RAD Z48.89 [id number] 11/22/2018 12:41:00 23:59:59 CLS Outpatient ROSA SNELL PIPEFITTER [facility] RAD PAIN SYNDROME G89.4 [id number] 11/04/2018 15:34:00 23:59:59 CLS Outpatient ROSA SNELL PIPEFITTER Via [facility] RAD RETROLISTHESIS [id number] 09/15/2018 10:52:00 13:54:00 DIS Emergency TRAVIS CANDELARIA PIPEFITTER [facility] ER HEAD/NECK PAIN [id number] 07/19/2018 10:46:00 23:59:59 CLS Outpatient PRISCILLA BLANCAS PIPEFITTER [facility] RAD OSTEOARTHRITIS [id number] 05/01/2018 17:14:00 018 21:00:00 DIS Emergency KADIE EDWARDS MD Via [facility] ER CERVICAL PAIN, TONGUE NUMB, LIPS NUMB [id number] 04/21/2018 09:16:00 23:59:59 CLS Outpatient PRISCILLA BLANCAS PIPEFITTER Via [facility] RAD RENAL CARCINOMA OF LEFT KIDNEY [id number] 04/11/2018 20:59:00 018 23:02:00 DIS Emergency TRAVIS CANDELARIA PIPEFITTER Via [facility] ER KIDNEY CANCER, PAIN [id number] 12/15/2017 10:13:00 23:59:59 CLS Preadmit PRISCILLA BLANCAS PIPEFITTER Via [facility] REHAB LUMBAGO WITH SCIATICA [id number] 12/12/2017 10:28:00 13:57:00 DIS Emergency KHURRAM GRIJALVA MD Via [facility] ER FALL/L KNEE INJ [id number] 11/23/2017 13:18:00 018 23:59:59 CLS Preadmit VIANEY MOISE, TAMY Keane a [facility] RAD N28.89 LEFT RENAL MASS [id number] 11/03/2017 09:12:00 018 23:59:59 CLS Outpatient PRISCILLA BLANCAS PIPEFITTER [facility] RAD SCREENING [id number] 09/29/2017 08:35:00 017 23:59:59 CLS Outpatient PRISCILLA BLANCAS PIPEFITTER Via [facility] RAD RIGHT RENAL MAS S N28.89 [id number] 09/27/2017 08:41:00 017 23:59:59 CLS Outpatient PRISCILLA BLANCAS APRN [facility] RAD RT RENAL MASS [id number] 09/24/2017 08:07:00 017 23:59:59 CLS Outpatient PRISCILLA BLANCAS PIPEFITTER Via [facility] RAD R91.1 PULMONARY NODULE [id number] 09/22/2017 14:17:00 017 23:59:59 CLS Preadmit PRISCILLA BLANCAS APRN [facility] REHAB NECK PAIN [id number] 09/03/2017 13:04:00 017 23:59:59 CLS Preadmit PRISCILLA BLANCAS PIPEFITTER [facility] RAD RETROLISTHESIS OF VERTE LEIGH [id number] 08/28/2017 12:05:00 017 15:17:00 DIS Emergency KADIE EDWARDS MD Via [facility] ER R SIDE PAIN, EX TREME DIZZINESS [id number] 08/27/2017 07:00:00 017 09:46:00 DIS Emergency RICHIE BENTLEY MD Via [facility] ER RT SIDE PAIN [id number] 08/18/2017 12:03:00 017 15:35:00 DIS Outpatient MARGUERITE WAITE MD [facility] ENDO HX ULCERS AND POLYPS [id number] 08/16/2017 05:55:00 017 14:21:00 DIS Outpatient MARGUERITE WAITE MD [facility] PREOP COLO/EGD [id number] 07/14/2017 09:30:00 017 23:59:59 CLS Preadmit MARGUERITE WAITE MD [facility] ENDO HISTORY OF ULCERS AND P OLYPS [id number] 07/12/2017 08:30:00 017 08:30:00 CAN Preadmit MARGUERITE WAITE MD [facility] PREOP EGD/COLONOSCOPY [id number] 05/18/2017 07:11:00 017 14:25:00 DIS Outpatient LINDEN MOISE FACC, DASIA CHACON CC DS [facility] CATH CAD,SOB,FAT IGUE [id number] 05/13/2017 14:16:00 017 23:59:59 CLS Outpatient FOREIGN HORAN [facility] LAB E11.9 [id number] 05/05/2017 09:30:00 017 23:59:59 CLS Preadmit MARGUERITE WAITE MD a [facility] ENDO HISTORY ULCER/HISTORY P OLYPS [id number] 05/03/2017 05:40:00 017 23:59:59 CLS Outpatient MARGUERITE WAITE MD Via [facility] PREOP COLONOSCOPY, EGD [id number] 04/29/2017 07:08:00 017 23:59:59 CLS Outpatient FOREIGN HORAN [facility] CARD CAD [id number] 05/27/2015 08:41:00 015 23:59:59 CLS Outpatient WESTON WRIGHT MD Via [facility] RAD RENAL MASS FOLLOWUP F ROM PET [id number] 05/21/2015 07:48:00 015 23:59:59 CLS Outpatient WESTON WRIGHT MD [facility] RAD ABDOMINAL PAIN LESION O N KIDNEY [id number] 04/11/2013 10:56:00 013 23:59:59 CLS Outpatient LINDEN MOISE FACC, DASIA CHACON CC DS [facility] LAB HYPERLIPADE JUAN [id number] 03/26/2020 12:49:[address] Emergency MARILEE NICOLE MD Via [facility] ER FALL;DIZZINESSS [id number] 03/26/2020 11:34:[address] Outpatient JAKE SHAH MD [facility] ORTHO [id number] 05/27/2015 08:41:00 Document Registration [id number] 05/27/2015 08:41:00 Document Registration [id number] 05/02/2012 10:54:00 Document Registration [id number] 07/21/2011 12:18:00 Document Registration [id number] 06/18/2011 10:41:00 Document Registration [id number] 06/04/2011 10:33:00 Document Registration [id number] 06/02/2011 08:14:00 Document Registration [id number] 05/26/2011 11:00:00 Document Registration [id number] 03/03/2011 05:36:00 Document Registration [id number] 02/24/2011 08:35:00 Document Registration [id number] 06/17/2010 05:35:00 Document Registration [id number] 08/06/2017 12:18:00 08/25/2017 15:05: 00 DIS Outpatient JAVIER BUSTAMANTE [id number] 07/31/2017 13:55:00 07/31/2017 23:59: 00 DIS Outpatient Weston Wright [id number] 07/10/2017 10:32:00 07/10/2017 12:21: 00 DIS Outpatient ADA KONG [facility] ER [id number] 06/29/2017 17:27:00 06/29/2017 18:43: 00 DIS Outpatient Jhon Altamirano [id number] 03/24/2017 11:37:00 03/24/2017 23:59: 00 DIS Outpatient Weston Wright [id number] 03/18/2017 14:10:00 03/18/2017 23:59: 00 DIS Outpatient Brionna Chavez [id number] 02/15/2017 13:02:00 03/10/2017 14:30: 00 DIS Outpatient Weston Wright [id number] 02/08/2017 18:59:00 02/08/2017 23:59: 00 DIS Outpatient Weston Wright [id number] 02/05/2017 12:30:00 02/05/2017 14:45: 00 [facility] [id number] 01/07/2017 09:44:00 01/07/2017 23:59: 00 DIS Outpatient Weston Wright [id number] 01/05/2017 13:53:00 01/05/2017 23:59: 00 DIS Outpatient Weston Wright [id number] 08/03/2017 14:26:00 Document Registration [id number] 07/31/2017 13:00:00 Document Registration [id number] 06/29/2017 18:28:27 Document Registration
[2020-03-26 16:05] VITALS: BP_SYST 136; BP_SYST 143; BP_SYST 152; BP_DIAS 71; BP_DIAS 79; BP_DIAS 96
--- NOTE | 2020-03-26 16:14 | Diagnostic Imaging Report ---
PROCEDURE: CT angiography of the head and CT angiography of the neck with and without contrast. TECHNIQUE: Contiguous noncontrast images were obtained from the skull base through the vertex. After intravenous contrast administration, helical CT angiography of the neck was performed. Source data was reformatted into 3D MIP projections. Delayed post contrast acquisition was also obtained. Auto Exposure Controls were utilized during the CT exam to meet ALARA standards for radiation dose reduction. INDICATION: Dizziness and fall. FINDINGS: Precontrast-weighted images demonstrate the ventricles and sulci to be within normal limits. No sulcal effacement or midline shift is identified. No acute intra-axial or extra-axial hemorrhage is detected. Cisterns are patent. Visualized paranasal sinuses are clear. Delayed postcontrast imaging is without evidence of unenhancing lesion. CT angiographic portion of the exam does show a normal three-vessel branching pattern to the aortic arch. The great vessels origins appear to be patent. Bilateral common carotid arteries are widely patent. Carotid bifurcations are unremarkable. There is moderate amount of tortuosity to the internal carotid arteries bilaterally. M1 and M2 branches of the middle cerebral arteries appear to be widely patent. Bilateral anterior cerebral arteries are widely patent. The basilar artery is widely patent. Bilateral posterior cerebral arteries are patent. Left vertebral artery is dominant. Both vertebral arteries appear to be widely patent. IMPRESSION: Unremarkable CT angiogram of the head and neck. Dictated by: Dictated on workstation # [id number]
[2020-03-26] MEDS ORDERED: ENOXAPARIN 100 MG/1 ML (LOVENOX) SYR SC ONE (16:30)
--- NOTE | 2020-03-26 16:38 | ED General ---
General Chief Complaint: Dizziness/Syncope Stated Complaint: FALL;DIZZINESSS Nursing Triage Note: Pt reports syncopal episode 03/23. Worsening dizziness, head pain, arm pain Nursing Sepsis Screen: No Definite Risk Source of Information: Patient Exam Limitations: No Limitations History of Present Illness Date Seen by Provider: Mar 26, 2020 Time Seen by Provider: 13:10 Initial Comments This 65-year-old woman presents to the emergency room with primary complaint of dizziness. She describes her dizziness is more of an equilibrium. She reports having an episode of dizziness and syncope on March 23 as well. She did hit her head at that time. This episode occurred immediately upon standing from bed. She reports her symptoms are worse in the standing position. Chest reports having cardiac history with multiple heart attacks. 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 Garcia she denies any chest pain or notable shortness of breath. She is afebrile without cough. Allergies and Home Medications Allergies Coded Allergies: ketorolac (Verified Allergy, Intermediate, 08/27/17) doxycycline (Unverified Allergy, Unknown, 08/16/17) hydrocodone (Unverified Allergy, Unknown, 08/16/17) piroxicam (Unverified Allergy, Unknown, 08/16/17) Home Medications Aspirin 81 Mg Tab.chew, 81 MG PO DAILY, (Reported) Atorvastatin Calcium 10 Mg Tablet, 10 MG PO HS, (Reported) Metoprolol Tartrate 100 Mg Tablet, 100 MG PO BID, (Reported) [place]-3/Dha/Epa/Fish Oil 1 Each Capsule, 1 EACH PO BID, (Reported) Oxycodone HCl 5 Mg Tablet, 5 MG PO Q4H PRN for PAIN-SEVERE TO BREAKTHROUGH Prescribed by: TRAVIS CANDELARIA on 09/15/18 1323 Oxycodone HCl/Acetaminophen 1 Each Tablet, 1 TAB PO TID PRN for PAIN-MODERATE, (Reported) Pantoprazole Sodium 40 Mg Tablet.dr, 40 MG PO DAILY, (Reported) Pioglitazone HCl/Metformin HCl 1 Each Tablet, 0.5 TAB PO BID, (Reported) Prednisone 20 Mg Tab, 40 MG PO DAILY Prescribed by: KADIE EDWARDS on 05/01/182049 Prednisone 20 Mg Tab, 40 MG PO DAILY Prescribed by: KADIE EDWARDS on 09/07/19 0451 Sitagliptin Phosphate 100 Mg Tablet, 100 MG PO DAILY, (Reported) Sucralfate 1 Gm Tablet, 1 GM PO ACHS, (Reported) Tramadol HCl 50 Mg Tablet, 50 MG PO 4 TIMES A DAY Prescribed by: RICHIE BENTLEY on 08/27/17 0937 Patient Home Medication List Home Medication List Reviewed: Yes Review of Systems Review of Systems Constitutional: no symptoms reported EENTM: no symptoms reported Respiratory: no symptoms reported Cardiovascular: see HPI Gastrointestinal: no symptoms reported Genitourinary: no symptoms reported : No Musculoskeletal: no symptoms reported Skin: no symptoms reported Psychiatric/Neurological: See HPI Hematologic/Lymphatic: No Symptoms Reported Immunological/Allergic: no symptoms reported Past Fxnndvz-Jnsywu-Ztpmtk Hx Past Med/Social Hx: Reviewed and Corrections made Patient Social History Alcohol Use: Denies Use Recreational Drug Use: No Type Used: Cigarettes Former Smoker, Quit: Oct 18, 2015 Recent Foreign Travel: No Contact w/Someone Who Travel: No Recent Infectious Disease Expo: No Recent Hopitalizations: No Immunizations Up To Date Tetanus Booster (TDap): Unknown Date of Pneumonia Vaccine: Jun 18, 2019 Seasonal Allergies Seasonal Allergies: Yes (MILD) Past Medical History Surgeries: Yes (LT SHOULDER x2, LT OOPHORECTOMY, BILAT CTR, RT KNEE SCOPE x2, Lt kidney rem) Section, Gallbladder, Nephrectomy, Tubal Ligation Respiratory: Yes ("NODULES IN MY LUNGS") Cardiac: Yes (HEART CATH-NO STENTS, [place] x3) Heart Attack, High Cholesterol, Irregular Heartbeat Neurological: Yes (LOZADA'S PALSY LEFT SIDE OF FACE x2) 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: Tubal Ligation, Menopausal Sexually Transmitted Disease: No HIV/AIDS: No Genitourinary: Yes (left nephrectomy) Kidney Stones Gastrointestinal: Yes Gastroesophageal Reflux, Chronic Diarrhea, Ulcer Musculoskeletal: Yes Degenerate Disk Disease, Arthritis, Chronic Back Pain Endocrine: Yes Diabetes, Non-Insulin dep Are Your Blood Sugars Over 250: No Loss of Vision: Bilateral Hearing Impairment: Denies Cancer: Yes Kidney Did You Recieve Any Treatments: Yes What Type of Treatment Did You: Surgical Intervention Psychosocial: Yes (MILD-RELATED TO LOSS OF ) Anxiety, Depression Integumentary: No Blood Disorders: No Adverse Reaction/Blood Tranf: No Family Medical History No Pertinent Family Hx Physical Exam Vital Signs Vital Signs - First Documented 03/26/20 03/26/20 13:20 17:21 Temp 36.8 Pulse 51 Resp 18 B/P (MAP) 173/81 (111) Pulse Ox 97 O2 Delivery Room Air Capillary Refill : Less Than 3 Seconds Height, Weight, BMI Height: 5'8.00" Weight: 205lbs. 0.0oz. 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 Norm as Tested Skin: Normal Color, Warm/Dry Progress/Results/Core Measures Suspected Sepsis Recent Fever Within 48 Hours: No Infection Criteria Present: None New/Unexplained Altered Menta: No Sepsis Screen: No Definite Risk SIRS Temperature: Pulse: 57 Respiratory Rate: Laboratory Tests 03/26/20 13:40: White Blood Count 10.2 Blood Pressure 143 /96 Mean: 112 Laboratory Tests 03/26/20 13:40: Platelet Count 195 03/26/20 14:15: Creatinine 0.76, Total Bilirubin 0.4 Results/Orders Lab Results Laboratory Tests Test 03/26/20 13:40 03/26/20 13:55 03/26/20 14:15 03/26/20 14:19 Range/Units White Blood Count 10.2 4.3-11.0 10^3/uL Red Blood Count 4.77 4.35-5.85 10^6/uL Hemoglobin 14.8 11.5-16.0 G/DL Hematocrit 43 35-52 % Mean Corpuscular Volume 91 80-99 FL Mean Corpuscular Hemoglobin 31 25-34 PG Mean Corpuscular Hemoglobin Concent 34 32-36 G/DL Red Cell Distribution Width 13.4 10.0-14.5 % Platelet Count 195 130-400 10^3/uL Mean Platelet Volume 10.1 7.4-10.4 FL Neutrophils (%) (Auto) 65 42-75 % Lymphocytes (%) (Auto) 24 12-44 % Monocytes (%) (Auto) 7 0-12 % Eosinophils (%) (Auto) 4 0-10 % Basophils (%) (Auto) 0 0-10 % Neutrophils # (Auto) 6.6 1.8-7.8 X 10^3 Lymphocytes # (Auto) 2.4 1.0-4.0 X 10^3 Monocytes # (Auto) 0.8 0.0-1.0 X 10^3 Eosinophils # (Auto) 0.4 H 0.0-0.3 10^3/uL Basophils # (Auto) 0.0 0.0-0.1 10^3/uL Urine Color YELLOW Urine Clarity CLEAR Urine pH 5.5 5-9 Urine Specific [place] >=1.030 1.016-1.022 Urine Protein NEGATIVE NEGATIVE Urine Glucose (UA) NEGATIVE NEGATIVE Urine Ketones NEGATIVE NEGATIVE Urine Nitrite NEGATIVE NEGATIVE Urine Bilirubin NEGATIVE NEGATIVE Urine Urobilinogen 0.2 < = 1.0 MG/DL Urine Leukocyte Esterase NEGATIVE NEGATIVE Urine RBC (Auto) NEGATIVE NEGATIVE Urine RBC RARE /HPF Urine WBC 0-2 /HPF Urine Squamous Epithelial Cells 0-2 /HPF Urine Crystals NONE /LPF Urine Bacteria TRACE /HPF Urine Casts NONE /LPF Urine Mucus NEGATIVE /LPF Urine Culture Indicated NO Sodium Level 139 135-145 MMOL/L Potassium Level 4.2 3.6-5.0 MMOL/L Chloride Level 108 H 98-107 MMOL/L Carbon Dioxide Level 21 21-32 MMOL/L Anion Gap 10 5-14 MMOL/L Blood Urea Nitrogen 19 H 7-18 MG/DL Creatinine 0.76 0.60-1.30 MG/DL Estimat Glomerular Filtration Rate > 60 BUN/Creatinine Ratio 25 Glucose Level 204 H 70-105 MG/DL Calcium Level 9.2 8.5-10.1 MG/DL Corrected Calcium 9.3 8.5-10.1 MG/DL Total Bilirubin 0.4 0.1-1.0 MG/DL Aspartate Amino Transf (AST/SGOT) 20 5-34 U/L Alanine Aminotransferase (ALT/SGPT) 12 0-55 U/L Alkaline Phosphatase 126 40-136 U/L Total Protein 7.6 6.4-8.2 GM/DL Albumin 3.9 3.2-4.5 GM/DL Troponin I 0.453 *H <0.028 NG/ML Test 6/9/20 20:03 Range/Units My Orders Orders - MARILEE NICOLE MD Cbc With Automated Diff (03/26/20 13:10) Comprehensive Metabolic Panel (03/26/20 13:10) Ua Culture If Indicated (03/26/20 13:10) Ed Iv/Invasive Line Start (03/26/20 13:10) Ct Angio Head/Neck (03/26/20 15:12) Troponin I (03/26/20 15:12) Ekg Tracing (03/26/20 15:12) Iohexol Injection (Omnipaque 350 Mg/Ml 1 (03/26/20 15:30) Received Contrast (Hold Metformin- Contr (03/26/20 15:30) Sodium Chloride Flush (Catheter Flush Sy (03/26/20 15:30) Ns (Ivpb) (Sodium Chloride 0.9% Ivpb Bag (03/26/20 15:30) Enoxaparin Injection (Lovenox Injection) (03/26/20 16:30) Metoprolol Succinate (Xl) Tab (Toprol Xl (03/26/20 16:30) Aspirin Chewable Tablet (Baby Aspirin Ch (03/26/20 16:45) Medications Given in ED Current Medications Medications Dose Ordered Sig/Liliane Route Start Time Stop Time Status Last Admin Dose Admin Enoxaparin Sodium 90 mg ONCE ONCE SC 03/26/20 16:30 03/26/20 16:35 DC 03/26/20 16:47 90 MG Iohexol 75 ml ONCE ONCE IV 03/26/20 15:30 03/26/20 15:31 DC 03/26/20 15:35 75 ML Metoprolol Succinate 25 mg ONCE ONCE PO 03/26/20 16:30 03/26/20 16:35 DC 03/26/20 16:46 25 MG Sodium Chloride 10 ml NEEDED PRN IV 03/26/20 15:30 03/26/20 15:35 10 ML Sodium Chloride 100 ml ONCE ONCE IV 03/26/20 15:30 03/26/20 15:31 DC 03/26/20 15:35 80 ML Vital Signs/I&O 03/26/20 03/26/20 03/26/20 03/26/20 13:20 16:05 17:21 17:30 Temp 36.8 Pulse 51 55 57 60 57 Resp 18 B/P (MAP) 173/81 (111) 136/71 (92) 164/98 152/79 (103) 143/96 (112) Pulse Ox 97 97 98 O2 Delivery Room Air Room Air 03/26/20 03/26/20 03/26/20 17:40 17:48 19:47 Temp 36.8 36.7 Pulse 57 55 60 Resp 18 18 B/P (MAP) 164/98 160/78 (105) Pulse Ox 97 97 O2 Delivery Room Air Capillary Refill : Less Than 3 Seconds Blood Pressure Mean: 112 Progress Note : Time: 16:37 Progress Note Initial workup was unremarkable. Orthostatic pressures were unremarkable. There was concern for possible carotid disease or other neurologic etiology for her dizziness and disequilibrium. CT angiogram of the head and neck was obtained. No carotid or large vessel stenosis/occlusion was identified. Because patient mentioned she had some "heart attacks" in the past, troponin and EKG were also obtained. Troponin did return elevated. Case was discussed with Dr. Garcia who recommended Lovenox, Toprol-XL, and aspirin. ECG Initial ECG Impression Date: Mar 26, 2020 Initial ECG Impression Time: 15:56 Initial ECG Rate: 55 Initial ECG Rhythm: Normal Sinus Initial ECG Impression: Normal Comment Normal sinus rhythm with no ST elevation or depression. No abnormal intervals or axis deviation. Diagnostic Imaging Diagonstic Imaging: CT Plain Films/CT/US/NM/MRI: other (angiogram head and neck) Comments NAME: [facility] REC#: [id number] PT STATUS: ADM IN : 1955 PHYSICIAN: MARILEE NICOLE MD ADMIT DATE: 03/26/20/[facility] Signed Date of Exam:03/26/20 CT ANGIO HEAD/NECK PROCEDURE: CT angiography of the head and CT angiography of the neck with and without contrast. TECHNIQUE: Contiguous noncontrast images were obtained from the skull base through the vertex. After intravenous contrast administration, helical CT angiography of the neck was performed. Source data was reformatted into 3D MIP projections. Delayed post contrast acquisition was also obtained. Auto Exposure Controls were utilized during the CT exam to meet ALARA standards for radiation dose reduction. INDICATION: Dizziness and fall. FINDINGS: Precontrast-weighted images demonstrate the ventricles and sulci to be within normal limits. No sulcal effacement or midline shift is identified. No acute intra-axial or extra-axial hemorrhage is detected. Cisterns are patent. Visualized paranasal sinuses are clear. Delayed postcontrast imaging is without evidence of unenhancing lesion. CT angiographic portion of the exam does show a normal three-vessel branching pattern to the aortic arch. The great vessels origins appear to be patent. Bilateral common carotid arteries are widely patent. Carotid bifurcations are unremarkable. There is moderate amount of tortuosity to the internal carotid arteries bilaterally. M1 and M2 branches of the middle cerebral arteries appear to be widely patent. Bilateral anterior cerebral arteries are widely patent. The basilar artery is widely patent. Bilateral posterior cerebral arteries are patent. Left vertebral artery is dominant. Both vertebral arteries appear to be widely patent. IMPRESSION: Unremarkable CT angiogram of the head and neck. Dictated by: Dictated on workstation # [id number] Dict: 03/26/20 1601 Trans: 03/26/201931 [id number] [id number] Interpreted by: REANNA LACKEY MD Electronically signed by: REANNA LACKEY MD 03/26/201931 Departure Communication (Admissions) Time/Spoke to Admitting Phy: 16:25 Dr. Quezada Time/Spoke to Consulting Phy: 16:20 Dr. Garcia Impression Primary Impression: Non-ST elevation NH (NSTEMI) Additional Impression: Dizziness Disposition: 01 HOME, SELF-CARE Condition: Stable Admissions Decision to Admit Reason: Admit from ER (General) Decision to Admit/Date: Mar 26, 2020 Time/Decision to Admit Time: 16:15 Departure-Patient Inst. Referrals: JAKE SHAH MD (PCP) Primary Care Physician MARILEE NICOLE MD Mar 26, 2020 16:38
[2020-03-26] MEDS ORDERED: ASPIRIN 81 MG CHEW (CHILDREN'S ASA) PO ONE (16:45)
[2020-03-26 17:40] VITALS: BP 164/98
[2020-03-26] MEDS ORDERED: ONDANSETRON 4 MG/2 ML (SDV) Z0FRAN IV PRN (17:45)
[2020-03-26 19:47] VITALS: BP 160/78
[2020-03-26] MEDS: NS IV 1000 ML 1,000 ML IV SCH (20:16)
--- NOTE | 2020-03-26 20:52 | History & Physical ---
HPI History of Present Illness: 65 yo F with h/o UT presents with dizziness and chest pain. States that the pain started today and has been constant. States that she was sitting down when she had the pain. Denies radiation to jaw or arm. States that she has nitro but she did not take any at home. States that she is feeling better since getting to the hospital. Denies any palpitations or racing heart rate. Denies any shortness of breath or diaphoresis. States that the dizziness happens when she changes position and that has been happening for about a month. Source: patient, family (daughter) Exam Limitations: no limitations Date seen by provider: Mar 26, 2020 Time Seen by Provider: 17:25 Attending Physician Katerina Quezada MD [facility]Replaced By [facility] Consult Date of Admission Mar 26, 2020 at 16:36 Home Medications Home Medications Reviewed patient Home Medication Reconciliation performed by pharmacy medication reconciliations distance learning technician and/or nursing. Patients Allergies have been reviewed. Allergies Coded Allergies: ketorolac (Verified Allergy, Intermediate, 08/27/17) doxycycline (Unverified Allergy, Unknown, 08/16/17) hydrocodone (Unverified Allergy, Unknown, 08/16/17) piroxicam (Unverified Allergy, Unknown, 08/16/17) IOU-Vewjma-Qciyke Hx Patient Social History Alcohol Use: Denies Use Recreational Drug Use: No Type Used: Cigarettes Recent Foreign Travel: No Contact w/other who traveled: No Recent Hopitalizations: No Recent Infectious Disease Expo: No Immunizations Up To Date Tetanus Booster (TDap): Unknown Date of Pneumonia Vaccine: Jun 18, 2019 Past Medical History CAD HTN HLD NIDDM Family Medical History Significant Family History: Heart Disease (Mother and father) Review of Systems ([facility]) Constitutional: No chills, No diaphoresis; dizziness; No fever EENTM: no symptoms reported; No mouth pain, No nose congestion, No throat pain Respiratory: no symptoms reported; No cough, No dyspnea on exertion, No short of breath Cardiovascular: chest pain; No edema, No palpitations Gastrointestinal: no symptoms reported; No abdominal pain, No constipation, No diarrhea, No nausea, No vomiting Genitourinary: no symptoms reported; No dysuria, No frequency, No hematuria : No Musculoskeletal: back pain (chronic) Skin: no symptoms reported; No lesions, No rash Psychiatric/Neurological: Anxiety Reviewed Test Results Reviewed Test Results Lab Laboratory Tests Test 03/26/20 13:40 03/26/20 13:55 03/26/20 14:15 03/26/20 14:19 Range/Units White Blood Count 10.2 4.3-11.0 10^3/uL Red Blood Count 4.77 4.35-5.85 10^6/uL Hemoglobin 14.8 11.5-16.0 G/DL Hematocrit 43 35-52 % Mean Corpuscular Volume 91 80-99 FL Mean Corpuscular Hemoglobin 31 25-34 PG Mean Corpuscular Hemoglobin Concent 34 32-36 G/DL Red Cell Distribution Width 13.4 10.0-14.5 % Platelet Count 195 130-400 10^3/uL Mean Platelet Volume 10.1 7.4-10.4 FL Neutrophils (%) (Auto) 65 42-75 % Lymphocytes (%) (Auto) 24 12-44 % Monocytes (%) (Auto) 7 0-12 % Eosinophils (%) (Auto) 4 0-10 % Basophils (%) (Auto) 0 0-10 % Neutrophils # (Auto) 6.6 1.8-7.8 X 10^3 Lymphocytes # (Auto) 2.4 1.0-4.0 X 10^3 Monocytes # (Auto) 0.8 0.0-1.0 X 10^3 Eosinophils # (Auto) 0.4 H 0.0-0.3 10^3/uL Basophils # (Auto) 0.0 0.0-0.1 10^3/uL Urine Color YELLOW Urine Clarity CLEAR Urine pH 5.5 5-9 Urine Specific [place] >=1.030 1.016-1.022 Urine Protein NEGATIVE NEGATIVE Urine Glucose (UA) NEGATIVE NEGATIVE Urine Ketones NEGATIVE NEGATIVE Urine Nitrite NEGATIVE NEGATIVE Urine Bilirubin NEGATIVE NEGATIVE Urine Urobilinogen 0.2 < = 1.0 MG/DL Urine Leukocyte Esterase NEGATIVE NEGATIVE Urine RBC (Auto) NEGATIVE NEGATIVE Urine RBC RARE /HPF Urine WBC 0-2 /HPF Urine Squamous Epithelial Cells 0-2 /HPF Urine Crystals NONE /LPF Urine Bacteria TRACE /HPF Urine Casts NONE /LPF Urine Mucus NEGATIVE /LPF Urine Culture Indicated NO Sodium Level 139 135-145 MMOL/L Potassium Level 4.2 3.6-5.0 MMOL/L Chloride Level 108 H 98-107 MMOL/L Carbon Dioxide Level 21 21-32 MMOL/L Anion Gap 10 5-14 MMOL/L Blood Urea Nitrogen 19 H 7-18 MG/DL Creatinine 0.76 0.60-1.30 MG/DL Estimat Glomerular Filtration Rate > 60 BUN/Creatinine Ratio 25 Glucose Level 204 H 70-105 MG/DL Calcium Level 9.2 8.5-10.1 MG/DL Corrected Calcium 9.3 8.5-10.1 MG/DL Total Bilirubin 0.4 0.1-1.0 MG/DL Aspartate Amino Transf (AST/SGOT) 20 5-34 U/L Alanine Aminotransferase (ALT/SGPT) 12 0-55 U/L Alkaline Phosphatase 126 40-136 U/L Total Protein 7.6 6.4-8.2 GM/DL Albumin 3.9 3.2-4.5 GM/DL Troponin I 0.453 *H <0.028 NG/ML Test 03/26/20 20:03 Range/Units Troponin I < 0.028 <0.028 NG/ML Physical Exam-([facility]) Physical Exam Vital Signs VS - Last 72 Hours, by Label 03/26/20 03/26/20 03/26/20 03/26/20 13:20 16:05 17:21 17:30 Temp 36.8 Pulse 51 55 57 60 57 Resp 18 B/P (MAP) 173/81 (111) 136/71 (92) 164/98 152/79 (103) 143/96 (112) Pulse Ox 97 97 98 O2 Delivery Room Air Room Air 03/26/20 03/26/20 03/26/20 17:40 17:48 19:47 Temp 36.8 36.7 Pulse 57 55 60 Resp 18 18 B/P (MAP) 164/98 160/78 (105) Pulse Ox 97 97 O2 Delivery Room Air Capillary Refill : Less Than 3 Seconds General Appearance: WD/WN, no apparent distress, obese HEENT: PERRL/EOMI Neck: non-tender, full range of motion, supple; No carotid bruit Respiratory: chest non-tender, lungs clear, normal breath sounds, no respiratory distress, no accessory muscle use Cardiovascular: normal peripheral pulses, regular rate, rhythm, no edema, no murmur Gastrointestinal: normal bowel sounds, non tender, soft, no organomegaly Back: no CVA tenderness, no vertebral tenderness Extremities: normal range of motion, non-tender, normal inspection, no pedal edema, no calf tenderness, normal capillary refill Neurologic/Psychiatric: hairspring adjuster II-XII nml as tested, no motor/sensory deficits, alert, normal mood/affect, oriented x 3 Skin: normal color, warm/dry Lymphatic: no adenopathy Assessment/Plan Assessment/Plan Admission Status: Inpatient Order (span 2 midnights) Reason for Inpatient Admission: Needs cardiac monitoring and cardiac workup (1) Non-ST elevation UT (NSTEMI) Status: Acute Assessment & Plan: - Cardiology consulted and managing, Repeat trop was normal, continued ASA and Beta Harvey (2) Dizziness Status: Acute Assessment & Plan: - Will get orthostatics (3) Non-insulin treated type 2 diabetes mellitus Status: Chronic Assessment & Plan: - A1c pending, holding PO medication due to possible cath (4) HTN (hypertension) Status: Chronic Assessment & Plan: - Continue home meds Qualifiers: Qualified Codes: I10 - Essential (primary) hypertension (5) Chronic back pain Status: Chronic Assessment & Plan: - Continue hold pain medication Qualifiers: Qualified Codes: M54.9 - Dorsalgia, unspecified; G89.29 - Other chronic pain (6) HLD (hyperlipidemia) Status: Chronic Assessment & Plan: - Continue statin Qualifiers: Qualified Codes: E78.2 - Mixed hyperlipidemia (7) DVT prophylaxis Status: Acute Assessment & Plan: - SCDs due to possible procedure in AM Clinical Quality Measures DVT/VTE Risk/Contraindication: Risk Factor Score Per Nursin RFS Level Per Nursing on Admit: 4+=Very High Copy Copies To 1: Dilia ROA HOLLY R MD Mar 26, 2020 20:52
[2020-03-26] MEDS ORDERED: oxyCODONE/APAP 7.5-325 MG (PERCOCET 7.5) TABLET ONE (21:37)
[2020-03-26] MEDS: oxyCODONE/APAP 7.5-325 MG (PERCOCET 7.5) TABLET PO PRN (21:40)
[2020-03-27] VITALS (8 sets, daily range): BP systolic 155–181; BP diastolic 81–92
[2020-03-27] MEDS: NS IV 1000 ML 1,000 ML IV SCH ×4 (03:55→23:56)
[2020-03-27 04:48] LABS: CALCIUM 8.9 MG/DL (8.5-10.1)
[2020-03-27 04:53] LABS: CREATININE SERUM 1.01 MG/DL (0.60-1.30)
--- NOTE | 2020-03-27 07:59 | Consultation-Cardiology ---
HPI-Cardiology Cardiology Consultation: Date of Consultation 03/27/20 Time Seen by a Provider: 08:25 Date of Admission 03-26-2020 Attending Physician Katerina Quezada MD Admitting Physician [place] Consulting Physician Jacobo Garcia MD HPI: Chief Complaint: Syncope Chest pain Ms. Jeffrey is a 65 year old female admitted to 508 from the ED. She reports on Wednesday morning she woke up, sat on the side of the bed at home and the next thing she knew she woke up on the floor. She is unsure how long she was unconscious. It was unwitnessed. She does not report any loss of bowel or bladder control. She reports she has been having episodes of sharp stabbing chest pain, mid-sternal to left sided which occur with exertion and relieve with rest after a few minutes. She reports she has had the episodes for years, but with her being more active recently they have been more frequent. She does not report any SOB. She reports palpitations, feeling of a rapid heartbeat with strenuous exertion that gradually resolves with rest. She reports right ankle swelling which started a few days ago after breaking the toes on her right foot. She denies any other swelling. She denies any n/v/d. She denies any fever or chills. Review of Systems-Cardiology Review of Systems Constitutional: No chills, No fever, No malaise Eyes: No vision change Ears/Nose/Throat: No epistaxis, No recent hearing loss Respiratory: As described under HPI Cardiovascular: As described under HPI Gastrointestinal: No constipation, No diarrhea, No nausea, No vomiting Genitourinary: No dysuria, No hematuria : No Musculoskeletal: neck pain (chronic, post surgery in 2018) Skin: No rash on exposed areas, No ulcerations on exposed areas Psychiatric/Neurological: As described under HPI; No anxiety, No depression, No seizure Hematologic: No bleeding abnormalities [id number]-[id number]-Ufqhxh Hx Patient Social History Alcohol Use: Denies Use Recreational Drug Use: No Type Used: Cigarettes Recent Foreign Travel: No Recent Infectious Disease Expo: No Immunizations Up To Date Tetanus Booster (TDap): Unknown Date of Pneumonia Vaccine: Jun 18, 2019 Past Medical History PMH As described under Assessment. Family Medical History Family Medical History: She reports her mother had HTN, CVA and CAD. She reports her father had CAD. Allergies and Home Medications Allergies Coded Allergies: ketorolac (Verified Allergy, Intermediate, 08/27/17) doxycycline (Unverified Allergy, Unknown, 08/16/17) hydrocodone (Unverified Allergy, Unknown, 08/16/17) piroxicam (Unverified Allergy, Unknown, 08/16/17) Home Medications Aspirin 81 Mg Tab.chew, 81 MG PO HS, (Reported) Atorvastatin Calcium 20 Mg Tablet, 20 MG PO HS, (Reported) Flaxseed Oil 1,000 Mg Capsule, 1,000 MG PO 1200, (Reported) Metoprolol Tartrate 100 Mg Tablet, 100 MG PO BID, (Reported) Multivits-Min/Iron/FA/Lutein 1 Each Tablet, 1 EACH PO DAILY, (Reported) Oxycodone HCl/Acetaminophen 1 Each Tablet, 1 TAB PO Q6H PRN for PAIN-MODERATE, (Reported) Pantoprazole Sodium 40 Mg Tablet.dr, 40 MG PO DAILY, (Reported) Pioglitazone HCl 15 Mg Tablet, 15 MG PO DAILY, (Reported) Saxagliptin HCl 5 Mg Tablet, 5 MG PO DAILY, (Reported) Sertraline HCl 50 Mg Tablet, 50 MG PO DAILY, (Reported) Tizanidine HCl 4 Mg Tablet, 4 MG PO TID PRN for MUSCLE SPASMS, (Reported) Physical Exam-Cardiology Physical Exam Vital Signs/I&O Capillary Refill : Less Than 3 SecondsLess Than 3 Seconds Constitutional: AAO x 3, well-developed, well-nourished HEENT: PERRL, hearing is well preserved, oral hygience is good Neck: No carotid bruit; carotid pulses are 2 + bilaterally Respiratory: No accessory muscle use, No respiratory distress; chest expansion is symmetric, chest is bilaterally symmetric Cardiovascular: regular rate-rhythm; No JVD; S1 and S2 Gastrointestinal: No tender; soft, round, audible bowel sounds Extremities: no lower extremity edema bilateral Neurologic/Psychiatric: grossly intact (moves all extremities) Skin: No rash on exposed areas, No ulcerations on exposed areas Data Review Labs Radiology NAME: CRISTHIAN JEFFREY [facility] REC#: [id number] PT STATUS: ADM IN : 1955 PHYSICIAN: MARILEE NICOLE MD ADMIT DATE: 03/26/20/CSD Signed Date of Exam:03/26/20 CT ANGIO HEAD/NECK PROCEDURE: CT angiography of the head and CT angiography of the neck with and without contrast. TECHNIQUE: Contiguous noncontrast images were obtained from the skull base through the vertex. After intravenous contrast administration, helical CT angiography of the neck was performed. Source data was reformatted into 3D MIP projections. Delayed post contrast acquisition was also obtained. Auto Exposure Controls were utilized during the CT exam to meet ALARA standards for radiation dose reduction. INDICATION: Dizziness and fall. FINDINGS: Precontrast-weighted images demonstrate the ventricles and sulci to be within normal limits. No sulcal effacement or midline shift is identified. No acute intra-axial or extra-axial hemorrhage is detected. Cisterns are patent. Visualized paranasal sinuses are clear. Delayed postcontrast imaging is without evidence of unenhancing lesion. CT angiographic portion of the exam does show a normal three-vessel branching pattern to the aortic arch. The great vessels origins appear to be patent. Bilateral common carotid arteries are widely patent. Carotid bifurcations are unremarkable. There is moderate amount of tortuosity to the internal carotid arteries bilaterally. M1 and M2 branches of the middle cerebral arteries appear to be widely patent. Bilateral anterior cerebral arteries are widely patent. The basilar artery is widely patent. Bilateral posterior cerebral arteries are patent. Left vertebral artery is dominant. Both vertebral arteries appear to be widely patent. IMPRESSION: Unremarkable CT angiogram of the head and neck. Dictated by: Dictated on workstation # [id number] Dict: 03/26/20 1601 Trans: 03/26/20 1932 [id number] [id number] Interpreted by: REANNA LACKEY MD Electronically signed by: REANNA LACKEY MD 03/26/20 193 ECG Impression ECG Initial ECG Rhythm: Normal Sinus A/P-Cardiology Assessment/Admission Diagnosis NSTEMI Stable angina Syncopal episode of undetermined etiology - can not r/o ventricular arrhythmia History of posterolateral myocardial infarction in 2000 without significant disease on cardiac catheterization of September 2001. Last cardiac catheterization was on 05/18/17: minimal CAD, LVEF F55-60%, normal LVEDP, no MR which was done following MPI of April 29, [address] Garcia was reported to have shown a small area of basal lateral reversible defect. Abnormal TID. 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 Monsalve at [facility] Hypertension with hypertensive cardiovascular disease and mild diastolic dysfunction of the left ventricle with mild elevation of left ventricular end- diastolic pressure. Hyperlipidemia being treated with fibrate therapy, followed by her pcp. Maturity onset diabetes mellitus. Obesity with a body mass index of 33. Gastroesophageal reflux. Degenerative joint disease. History of tachycardia which appears to be SVT per EKG carried out in the office on 05/25/11. H/O cervical neck surgery in Sep 2018 Carotid bifurcations are unremarkable. There is moderate amount of tortuosity to the internal carotid arteries bilaterally. M1 and M2 branches of the middle cer ebral arteries appear to be widely patent. Bilateral anterior cerebral arteries are widely patent. The basilar artery is widely patent. Bilateral posterior cerebral arteries are patent. Left vertebral artery is dominant. Both vertebral arteries appear to be widely patent. Per CT of the neck on 03-27-2020 Discussion and Recomendations NSTEMI Stable angina - advise cardiac cath. We have discussed the procedure, risks, benefits and potential complications of cardiac cath, including possible worsening of renal function, with possible ad hoc coronary intervention. She provides informed consent. We will proceed later today or sooner if needed. Continue with pre-procedure hydration and post procedure hydration Echocardiogram to eval structure and function Continue ASA, statin and BB Monitor renal function closely Further recs will be based on her hospital course I have spoken with Dr. Quezada regarding plan of care this morning We would like to thank her for this consult Clinical Quality Measures DVT/VTE Risk/Contraindication: Risk Factor Score Per Nursin RFS Level Per Nursing on Admit: 4+=Very High FOREIGN HORAN Mar 27, 2020 07:59
[2020-03-27] MEDS: ASPIRIN E.C. 81 MG (ECOTRIN) TAB PO SCH (09:18)
[2020-03-27] MEDS ORDERED: SERT50TA9 PO (13:25)
[2020-03-27] MEDS ORDERED: MULT-1021 PO (13:25)
[2020-03-27] MEDS ORDERED: PIOG15TA67 PO (13:25)
[2020-03-27] MEDS ORDERED: PANT40TA2 PO (13:25)
[2020-03-27] MEDS ORDERED: METO100T12 PO (13:25)
[2020-03-27] MEDS ORDERED: TIZA4TAB4 PO (13:25)
[2020-03-27] MEDS ORDERED: ATOR20TA66 PO (13:25)
[2020-03-27] MEDS ORDERED: SAXA5TAB PO (13:27)
[2020-03-27] MEDS ORDERED: FLAX10004 PO (13:27)
--- NOTE | 2020-03-27 13:29 | NUR ---
I SPOKE WITH THE PT (SHE HAD A MED LIST THAT I COPIED AND ATTACHED TO HER CHART) AND GOT A CURRENT FILL LIST FROM [facility] TO COMPLETE THE MED REC THE FOLLOWING ARE FILL DATES FROM [facility]: 01-29-2020 METOPROLOL TART 100MG #180/90DS 03-01-2020 PIOGLITAZONE 15MG #30/30DS 03-07-2020 SERTRALINE 50MG #30/30DS 03-07-2020 PANTOPRAZOLE 40MG #30/30DS 03-07-2020 TIZANIDINE 4MG #90/30DS 03-07-2020 ATORVASTATIN 20MG#30/30DS 03-07-2020 ONGLYZA 5MG #30/30DS 03-15-2020 OXYCODONE/APAP 7.5/325MG #112/28DS OTC MEDS: [employer] ASPIRIN 81 FLAXSEED OIL
--- NOTE | 2020-03-27 15:10 | Consultation-Cardiology ---
HPI-Cardiology Cardiology Consultation: Date of Consultation 03/27/20 Time Seen by a Provider: 10:10 Date of Admission Attending Physician Katerina Quezada MD Admitting Physician [place] Consulting Physician DASIA CHEATHAM MD, MA, FACP, FACC, FSCAI, CCDS HPI: Chief Complaint: CC: Syncope, chest discomfort HPI Ms. Jeffrey is a 65 year old female admitted to [facility] from the ED. She reports on Wednesday morning she woke up, sat on the side of the bed at home and the next thing she knew she woke up on the floor. She is unsure how long she was unconscious. It was unwitnessed. She does not report any loss of bowel or bladder control. She reports she has been having episodes of sharp stabbing lula st pain, mid-sternal to left sided which occur with exertion and relieve with rest after a few minutes. She reports she has had the episodes for years, but with her being more active recently they have been more frequent. She does not report any SOB. She reports palpitations, feeling of a rapid heartbeat with strenuous exertion that gradually resolves with rest. She reports right ankle swelling which started a few days ago after breaking the toes on her right foot. She denies any other swelling. She denies any n/v/d. She denies any fever or chills. Review of Systems-Cardiology Review of Systems Constitutional: No chills, No fever, No malaise Eyes: No vision change Ears/Nose/Throat: No epistaxis, No recent hearing loss Respiratory: As described under HPI Cardiovascular: As described under HPI Gastrointestinal: No constipation, No diarrhea, No nausea, No vomiting Genitourinary: No dysuria, No hematuria : No Musculoskeletal: neck pain (chronic, post surgery in 2018) Skin: No rash on exposed areas, No ulcerations on exposed areas Psychiatric/Neurological: As described under HPI; No anxiety, No depression, No seizure Hematologic: No bleeding abnormalities MCD-Puwdqn-Shzbze Hx Patient Social History Alcohol Use: Denies Use Recreational Drug Use: No Type Used: Cigarettes Recent Foreign Travel: No Recent Infectious Disease Expo: No Immunizations Up To Date Tetanus Booster (TDap): Unknown Date of Pneumonia Vaccine: Jun 18, 2019 Past Medical History PMH As described under Assessment. Family Medical History Family Medical History: She reports her mother had HTN, CVA and CAD. She reports her father had CAD. Allergies and Home Medications Allergies Coded Allergies: ketorolac (Verified Allergy, Intermediate, 08/27/17) doxycycline (Unverified Allergy, Unknown, 08/16/17) hydrocodone (Unverified Allergy, Unknown, 08/16/17) piroxicam (Unverified Allergy, Unknown, 08/16/17) Home Medications Aspirin 81 Mg Tab.chew, 81 MG PO HS, (Reported) Atorvastatin Calcium 20 Mg Tablet, 20 MG PO HS, (Reported) Flaxseed Oil 1,000 Mg Capsule, 1,000 MG PO 1200, (Reported) Metoprolol Tartrate 100 Mg Tablet, 100 MG PO BID, (Reported) Multivits-Min/Iron/FA/Lutein 1 Each Tablet, 1 EACH PO DAILY, (Reported) Oxycodone HCl/Acetaminophen 1 Each Tablet, 1 TAB PO Q6H PRN for PAIN-MODERATE, (Reported) Pantoprazole Sodium 40 Mg Tablet.dr, 40 MG PO DAILY, (Reported) Pioglitazone HCl 15 Mg Tablet, 15 MG PO DAILY, (Reported) Saxagliptin HCl 5 Mg Tablet, 5 MG PO DAILY, (Reported) Sertraline HCl 50 Mg Tablet, 50 MG PO DAILY, (Reported) Tizanidine HCl 4 Mg Tablet, 4 MG PO TID PRN for MUSCLE SPASMS, (Reported) Patient Home Medication List Home Medication List Reviewed: Yes Physical Exam-Cardiology Physical Exam Vital Signs/I&O 03/27/20 03/27/20 03/27/20 03/27/20 03:50 03:58 06:43 07:35 Temp 36.0 36.4 Pulse 61 60 56 Resp 18 17 B/P (MAP) 155/85 (108) 174/92 (119) Pulse Ox 95 93 O2 Delivery Room Air Room Air Room Air 03/27/20 03/27/20 03/27/20 03/27/20 08:00 09:00 11:28 12:00 Temp 35.8 Pulse 57 Resp 18 B/P (MAP) 177/85 (115) Pulse Ox 93 O2 Delivery Room Air Room Air Room Air Room Air 03/27/20 12:41 Pulse 55 03/27/20 00:00 Intake Total 300 ml Balance 300 ml Capillary Refill : Less Than 3 SecondsLess Than 3 Seconds Constitutional: AAO x 3, well-developed, well-nourished HEENT: PERRL, hearing is well preserved, oral hygience is good Neck: No carotid bruit; carotid pulses are 2 + bilaterally Respiratory: No accessory muscle use, No respiratory distress; chest expansion is symmetric, chest is bilaterally symmetric Cardiovascular: regular rate-rhythm; No JVD; S1 and S2 Gastrointestinal: No tender; soft, round, audible bowel sounds Extremities: no lower extremity edema bilateral Neurologic/Psychiatric: grossly intact (moves all extremities) Skin: No rash on exposed areas, No ulcerations on exposed areas Data Review Labs Laboratory Tests 03/26/20 20:03: Troponin I < 0.028 03/27/20 03:06: Sodium Level 142, Potassium Level 4.0, Chloride Level 110H, Carbon Dioxide Level 22, Anion Gap 10, Blood Urea Nitrogen 21H, Creatinine 1.01, Estimat Glomerular Filtration Rate 55, BUN/Creatinine Ratio 21, Glucose Level 153H, Calcium Level 8.9, Triglycerides Level 229H, Cholesterol Level 143, LDL Cholesterol Direct 84, VLDL Cholesterol 46H, HDL Cholesterol 26L 03/27/20 11:26: Glucometer 138H Laboratory Tests 03/26/20 13:40 03/26/20 14:15 03/27/20 03:06 A/P-Cardiology Assessment/Admission Diagnosis Non-specific chest discomfort in the setting of one elevated troponin Syncopal episode of undetermined etiology - can not r/o ventricular arrhythmia History of posterolateral myocardial infarction in 2000 without significant disease on cardiac catheterization of September 2001. Last cardiac catheterization was on 05/18/17: minimal CAD, LVEF F55-60%, normal LVEDP, no MR which was done following MPI of April 29, [address] Garcia was reported to have shown a small area of basal lateral reversible defect. Abnormal TID. 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 Monsalve at [facility] Hypertension with hypertensive cardiovascular disease and mild diastolic dysfunction of the left ventricle with mild elevation of left ventricular end- diastolic pressure. Hyperlipidemia being treated with fibrate therapy, followed by her pcp. Maturity onset diabetes mellitus. Obesity with a body mass index of 33. Gastroesophageal reflux. Degenerative joint disease. History of tachycardia which appears to be SVT per EKG carried out in the office on 05/25/11. H/O cervical neck surgery in Sep 2018 CT of the neck on 03-27-2020: Carotid bifurcations are unremarkable. There is moderate amount of tortuosity to the internal carotid arteries bilaterally. M1 and M2 branches of the middle cerebral arteries appear to be widely patent. Bilateral anterior cerebral arteries are widely patent. The basilar artery is widely patent. Bilateral posterior cerebral arteries are patent. Left vertebral artery is dominant. Both vertebral arteries appear to be widely patent Discussion and Recomendations Advise cardiac cath. We have discussed the procedure, risks, benefits and potential complications of cardiac cath, including possible worsening of renal function, with possible ad hoc coronary intervention. She provides informed consent. 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 Will sched for tomorrow Continue with pre-procedure hydration and post procedure hydration Echocardiogram to eval structure and function Continue ASA, statin and BB Monitor renal function closely Further recs will be based on her hospital course We would like to thank Dr Quezada for this consult Clinical Quality Measures DVT/VTE Risk/Contraindication: Risk Factor Score Per Nursin RFS Level Per Nursing on Admit: 4+=Very High DASIA CHEATHAM MD FACP FAC CCDS Mar 27, 2020 15:10
--- NOTE | 2020-03-27 15:14 | NUR ---
This nurse notified of patients elevated B/P at 1514. We discussed medications ordered and medication reconciliation, patient has 25mg metoprolol PO daily ordered and her med rec says that she takes 100mg metoprolol BID. asked me to clarify 25mg Metoprolol order with , she stated if he is ok with continuing metoprolol order from med rec she is as well. This nurse paged , he returned my page and I updated him on patients elevated b/p. 180's/90's. gave a telephone order to stop the 25mg metoprolol daily order and to continue the 100mg metoprolol PO BID order from the patients home medication reconciliation.
--- NOTE | 2020-03-27 16:38 | Progress Note ---
Subjective Subjective/Events-last exam Patient having Echo done this AM. States that her pain has resolved. She is NPO. Review of Systems Pulmonary: No Dyspnea, No Cough Cardiovascular: No: Chest Pain, Palpitations Gastrointestinal: No: Vomiting, Abdominal Pain Objective Exam Last Set of Vital Signs Vital Signs Date Time Temp Pulse Resp B/P (MAP) Pulse Ox O2 Delivery O2 Flow Rate FiO2 03/27/20 15:55 36.4 58 18 181/91 (121) 92 Room Air Capillary Refill : Less Than 3 SecondsLess Than 3 Seconds I&O Intake and Output 03/27/20 00:00 Intake Total 300 ml Balance 300 ml Intake Oral 300 ml # Voids 1 Daily Weight Change No No General: Alert, Oriented X3, Cooperative, No Acute Distress HEENT: Mucous Memb Moist/Baron Lungs: Clear to Auscultation, Normal Air Movement Heart: Regular Rate, No Murmurs Abdomen: Normal Bowel Sounds, Soft, No Tenderness, No Masses Extremities: No Edema, No Tenderness/Swelling Psych/Mental Status: Mental Status NL, Mood NL Results/Procedures Lab Laboratory Tests 03/26/20 20:03: Troponin I < 0.028 03/27/20 03:06: Sodium Level 142, Potassium Level 4.0, Chloride Level 110H, Carbon Dioxide Level 22, Anion Gap 10, Blood Urea Nitrogen 21H, Creatinine 1.01, Estimat Glomerular Filtration Rate 55, BUN/Creatinine Ratio 21, Glucose Level 153H, Calcium Level 8.9, Triglycerides Level 229H, Cholesterol Level 143, LDL Cholesterol Direct 84, VLDL Cholesterol 46H, HDL Cholesterol 26L 03/27/20 11:26: Glucometer 138H Radiology NAME: CRISTHIAN MARSH [facility] REC#: [id number] PT STATUS: ADM IN : 1955 PHYSICIAN: MARILEE NICOLE MD ADMIT DATE: 03/26/20/[facility] Signed Date of Exam:03/26/20 CT ANGIO HEAD/NECK PROCEDURE: CT angiography of the head and CT angiography of the neck with and without contrast. TECHNIQUE: Contiguous noncontrast images were obtained from the skull base through the vertex. After intravenous contrast administration, helical CT angiography of the neck was performed. Source data was reformatted into 3D MIP projections. Delayed post contrast acquisition was also obtained. Auto Exposure Controls were utilized during the CT exam to meet ALARA standards for radiation dose reduction. INDICATION: Dizziness and fall. FINDINGS: Precontrast-weighted images demonstrate the ventricles and sulci to be within normal limits. No sulcal effacement or midline shift is identified. No acute intra-axial or extra-axial hemorrhage is detected. Cisterns are patent. Visualized paranasal sinuses are clear. Delayed postcontrast imaging is without evidence of unenhancing lesion. CT angiographic portion of the exam does show a normal three-vessel branching pattern to the aortic arch. The great vessels origins appear to be patent. Bilateral common carotid arteries are widely patent. Carotid bifurcations are unremarkable. There is moderate amount of tortuosity to the internal carotid arteries bilaterally. M1 and M2 branches of the middle cerebral arteries appear to be widely patent. Bilateral anterior cerebral arteries are widely patent. The basilar artery is widely patent. Bilateral posterior cerebral arteries are patent. Left vertebral artery is dominant. Both vertebral arteries appear to be widely patent. IMPRESSION: Unremarkable CT angiogram of the head and neck. Dictated by: Dictated on workstation # [id number] Dict: 03/26/20 1601 Trans: 03/26/201931 AS6 [id number] Interpreted by: REANNA LACKEY MD Electronically signed by: REANNA LACKEY MD 03/26/201931 Assessment/Plan Assessment/Plan (1) Non-ST elevation [place] (NSTEMI) Status: Acute Assessment & Plan: - Cardiology consulted and managing, Repeat trop was normal, continued ASA and Beta Harvey 03/27: Plan for cath in AM, chest pain resolved (2) Dizziness Status: Acute Assessment & Plan: - Will get orthostatics (3) Non-insulin treated type 2 diabetes mellitus Status: Chronic Assessment & Plan: - A1c pending, holding PO medication due to possible cath (4) HTN (hypertension) Status: Chronic Assessment & Plan: - Continue home meds Qualifiers: Qualified Codes: I10 - Essential (primary) hypertension (5) Chronic back pain Status: Chronic Assessment & Plan: - Continue hold pain medication Qualifiers: Qualified Codes: M54.9 - Dorsalgia, unspecified; G89.29 - Other chronic pain (6) HLD (hyperlipidemia) Status: Chronic Assessment & Plan: - Continue statin Qualifiers: Qualified Codes: E78.2 - Mixed hyperlipidemia (7) DVT prophylaxis Status: Acute Assessment & Plan: - SCDs due to possible procedure in AM Clinical Quality Measures DVT/VTE Risk/Contraindication: Risk Factor Score Per Nursin RFS Level Per Nursing on Admit: 4+=Very High QUINN VASQUEZ MD Mar 27, 2020 16:38
[2020-03-27] MEDS: meTOprolol TARTRATE 50 MG (LOPRESSOR) TAB PO SCH (19:45)
[2020-03-27] MEDS: oxyCODONE/APAP 7.5-325 MG (PERCOCET 7.5) TABLET PO PRN (19:46)
[2020-03-27] MEDS ORDERED: NON-FORMULARY MEDICATION 1 EA EA (Metoprolol Tartrate 100 MG) PO SCH (21:00)
[2020-03-28] VITALS (9 sets, daily range): BP systolic 159–195; BP diastolic 76–83
[2020-03-28 05:14] LABS: BASOPHILS % (AUTO) 0 % (0-10); EOSINOPHILS # (AUTO) 0.3 10^3/uL (0.0-0.3); EOSINOPHILS % (AUTO) 4 % (0-10); HEMATOCRIT 41 % (35-52); HEMOGLOBIN 13.6 G/DL (11.5-16.0); LYMPHOCYTES # (AUTO) 2.4 X 10^3 (1.0-4.0); LYMPHOCYTES % (AUTO) 31 % (12-44); MEAN CORPUSCULAR HEMOGLOBIN 31 PG (25-34); MEAN CORPUSCULAR HGB CONC 34 G/DL (32-36); MEAN CORPUSCULAR VOLUME 91 FL (80-99); MEAN PLATELET VOLUME 9.6 FL (7.4-10.4); MONOCYTES # (AUTO) 0.6 X 10^3 (0.0-1.0); MONOCYTES % (AUTO) 7 % (0-12); NEUTROPHILS # (AUTO) 4.5 X 10^3 (1.8-7.8); NEUTROPHILS % (AUTO) 58 % (42-75); PLATELET COUNT 151 10^3/uL (130-400); RED CELL DISTRIBUTION WIDTH 12.8 % (10.0-14.5); WHITE BLOOD COUNT 7.8 10^3/uL (4.3-11.0)
[2020-03-28 05:24] LABS: CHLORIDE 108 MMOL/L (98-107); POTASSIUM 3.8 MMOL/L (3.6-5.0); SODIUM 140 MMOL/L (135-145)
[2020-03-28 05:25] LABS: CALCIUM 9.1 MG/DL (8.5-10.1)
[2020-03-28 05:26] LABS: GLUCOSE 126 MG/DL (70-105)
[2020-03-28 05:27] LABS: CARBON DIOXIDE 23 MMOL/L (21-32)
[2020-03-28 05:29] LABS: CREATININE SERUM 0.71 MG/DL (0.60-1.30); GFR ESTIMATED > 60
[2020-03-28 05:30] LABS: BUN/CREATININE RATIO 20
[2020-03-28] MEDS: meTOprolol TARTRATE 50 MG (LOPRESSOR) TAB PO SCH (07:26)
[2020-03-28] MEDS: ASPIRIN E.C. 81 MG (ECOTRIN) TAB PO SCH (07:26)
[2020-03-28] MEDS: NS IV 1000 ML 1,000 ML IV SCH ×2 (09:56→12:09)
[2020-03-28] MEDS ORDERED: HEParin (CATH LAB) 2,000 ML IV ONE (10:53)
[2020-03-28] MEDS ORDERED: LIDOCAINE 1% INJ 20 ML 20 ML VIAL ONE (10:53)
[2020-03-28] MEDS ORDERED: MIDAZOLAM 5 MG/5 ML (VERSED) VIAL ONE (10:55)
[2020-03-28] MEDS ORDERED: fentaNYL INJECTION 100 MCG/2 ML AMP ONE (10:55)
[2020-03-28] MEDS ORDERED: NS IV 1000 ML 1,000 ML ONE (11:53)
[2020-03-28] MEDS ORDERED: NS IV 1000 ML 1,000 ML IV SCH (12:38)
[2020-03-28] MEDS ORDERED: PATIENT MAY USE OWN MEDS, ALL PO SCH (12:45)
--- NOTE | 2020-03-28 12:46 | Progress Note - Cardiology ---
Cardiology SOAP Progress Note Subjective: No cp or palp or syncope since admission No shortness of breath No n/v/d No focal weakness Dizziness resolved Objective: I&O/Vital Signs 03/28/20 03/28/20 03/28/20 03/28/20 01:00 03:04 03:05 06:46 Temp 36.3 Pulse 52 60 55 Resp 16 B/P (MAP) 164/79 (107) Pulse Ox 93 O2 Delivery Room Air Room Air 03/28/20 03/28/20 03/28/20 07:15 08:00 08:49 Temp 36.8 Pulse 50 Resp 19 B/P (MAP) 195/82 (119) Pulse Ox 94 O2 Delivery Room Air Room Air Room Air 03/28/20 00:00 Intake Total 1300 ml Output Total 600 ml Balance 700 ml Weight (Pounds): 205 Weight (Ounces): 0.0 Weight (Calculated Kilograms): [id number] Constitutional: AAO x 3, well-developed, well-nourished Respiratory: No accessory muscle use, No respiratory distress; chest expansion is symmetric, chest is bilaterally symmetric Cardiovascular: regular rate-rhythm; No JVD; S1 and S2 Gastrointestional: No tender; soft, round, audible bowel sounds Extremities: no lower extremity edema bilateral Neurologic/Psychiatric: grossly intact (moves all extremities) Skin: No rash on exposed areas, No ulcerations on exposed areas Results/Procedures: Labs Laboratory Tests 03/28/20 05:00: White Blood Count 7.8, Red Blood Count 4.44, Hemoglobin 13.6, Hematocrit 41, Mean Corpuscular Volume 91, Mean Corpuscular Hemoglobin 31, Mean Corpuscular Hemoglobin Concent 34, Red Cell Distribution Width 12.8, Platelet Count 151, Mean Platelet Volume 9.6, Neutrophils (%) (Auto) 58, Lymphocytes (%) (Auto) 31, Monocytes (%) (Auto) 7, Eosinophils (%) (Auto) 4, Basophils (%) (Auto) 0, Neutrophils # (Auto) 4.5, Lymphocytes # (Auto) 2.4, Monocytes # (Auto) 0.6, Eosinophils # (Auto) 0.3, Basophils # (Auto) 0.0, Sodium Level 140, Potassium Level 3.8, Chloride Level 108H, Carbon Dioxide Level 23, Anion Gap 9, Blood Urea Nitrogen 14, Creatinine 0.71, Estimat Glomerular Filtration Rate > 60, BUN/Creatinine Ratio 20, Glucose Level 126H, Calcium Level 9.1 Laboratory Tests 03/26/20 13:40 03/26/20 14:15 03/27/20 03:06 03/28/20 05:00 A/P: Assessment: Non-specific chest discomfort, likely noncardiac, based on card cath of 03/28/20 One elevated troponin, likely false positive ( because the very next troponin was normal and there is no evidence of Type I or Type II WA) Syncopal episode of undetermined etiology - can not r/o ventricular arrhythmia History of posterolateral myocardial infarction in 2000 without significant disease on cardiac catheterization of September 2001. Cardiac catheterization of 05/18/17 showed minimal CAD. 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 Monsalve at [facility] Hypertension with hypertensive cardiovascular disease and mild diastolic dysfunction of the left ventricle with mild elevation of left ventricular end- diastolic pressure. Hyperlipidemia being treated with fibrate therapy, followed by her pcp. Maturity onset diabetes mellitus. Obesity with a body mass index of 33. Gastroesophageal reflux. Degenerative joint disease. History of tachycardia which appears to be SVT per EKG carried out in the office on 05/25/11. H/O cervical neck surgery in Sep 2018 CT of the neck on 03-27-2020: Carotid bifurcations are unremarkable. There is moderate amount of tortuosity to the internal carotid arteries bilaterally. M1 and M2 branches of the middle cerebral arteries appear to be widely patent. Bilateral anterior cerebral arteries are widely patent. The basilar artery is widely patent. Bilateral posterior cerebral arteries are patent. Left vertebral artery is dominant. Both vertebral arteries appear to be widely patent Plan: * I discussed her cath findings in detail with her and her daughter * Ok to d/c from cardiac standpoint * Continue bb, ASA, and statin * Outpt f/u advised next week * Advised not to drive or operate machinery until further notice * She understands and states she will comply DASIA CHEATHAM MD FACP [facility] CCDS Mar 28, 2020 12:46
--- NOTE | 2020-03-28 13:29 | CARDIAC CATHETERIZATION ---
DATE OF SERVICE: 03/28/2020 CARDIAC CATHETERIZATION REPORT INDICAITONS: The patient is a 65-year-old lady with coronary artery disease risk factors who was hospitalized with dizziness and vague chest discomfort. One troponin was positive, although the very next one was negative. Because of concern over possible non-ST elevation myocardial infarction, cardiac catheterization was carried out after having obtained an informed consent. PROCEDURE IN DETAIL: She was brought to the cardiac catheterization laboratory in a fasting state. Right groin was prepared and draped in the usual sterile fashion. Lidocaine 1% for local anesthesia. Modified Seldinger technique was used to advance a 5-Faroese sheath in the right femoral artery, 5-Faroese JR4 catheter was used for right coronary angiography, 5-Faroese JL4 catheter for left coronary angiography, 5-Faroese pigtail catheter was used for left heart catheterization and left ventricular angiography. The pigtail was pulled back to the aortic root and aortic root angiography was performed. The catheter was removed. Angiography of the right femoral artery was carried out through the sheath. Mynx was used to achieve hemostasis. She tolerated the procedure well. HEMODYNAMICS: Left ventricular end-diastolic pressure following coronary angiography was 12 mmHg. There was no significant pressure gradient on pullback across the aortic valve. Ascending aortic pressure was 162/74 with a mean of 61 mmHg. CORONARY ANGIOGRAPHY: There is mild coronary calcification. All vessels were tortuous. Flow in all vessels is somewhat sluggish. The right coronary artery is dominant. The left and right coronary systems have mild plaque without any distinct obstructive disease. AORTIC ROOT ANGIOGRAPHY: Aortic root angiography did not indicate any significant aortic root aneurysm or dissection. Aortic valve leaflets are identified. Good leaflet excursion was seen. There was no significant aortic regurgitation. LEFT VENTRICULAR ANGIOGRAPHY: Left ventricular angiography was carried out in the right anterior oblique projection. Global left ventricular systolic function. No regional wall motion abnormalities seen. Left ventricular ejection fraction approximately 60%. CONCLUSIONS: 1. Angiographically mild coronary artery disease. 2. Normal global left ventricular systolic function with ejection fraction approximately 60%. 3. Normal left ventricular end-diastolic pressure. DISCUSSION AND RECOMMENDATIONS: Based on results of the study, it appears appropriate to continue a conservative approach. Focus is on risk factor modification. This has been reviewed. Outpatient followup is advised. Given the episode of near syncope and dizziness that she presented with, we advised against driving or operating machinery or herself into a situation where her symptoms may cause injury to herself or others. This is to be until further notice. Job ID: [id number] DocumentID: [id number] Dictated Date: 03/28/2020 12:27:28 Website Project Manager Date: 03/28/2020 13:28:45 Dictated By: DASIA CHEATHAM MD, MA, FACP, FACC,
--- NOTE | 2020-03-28 13:39 | Discharge Summary ---
Diagnosis/Chief Complaint Date of Admission Mar 26, 2020 at 16:36 Date of Discharge 03/28/2020 Admission Diagnosis Admission Diagnosis See problem list Discharge Diagnosis See below Problems/Diagnosis: (1) Elevated troponin Assessment & Plan: 03/28: Elevated trop x 1, patient then had cath today that did not require any intervention, Will d/c on ASA, statin, and BB (2) Dizziness Assessment & Plan: - Will get orthostatics 03/28: CTA of Carotids were normal Status: Acute (3) Non-insulin treated type 2 diabetes mellitus Assessment & Plan: - A1c pending, holding PO medication due to possible cath Status: Chronic (4) HTN (hypertension) Assessment & Plan: - Continue home meds Qualifiers: Qualified Codes: I10 - Essential (primary) hypertension Status: Chronic (5) Chronic back pain Assessment & Plan: - Continue hold pain medication Qualifiers: Qualified Codes: M54.9 - Dorsalgia, unspecified; G89.29 - Other chronic pain Status: Chronic (6) HLD (hyperlipidemia) Assessment & Plan: - Continue statin Qualifiers: Qualified Codes: E78.2 - Mixed hyperlipidemia Status: Chronic (7) DVT prophylaxis Assessment & Plan: - SCDs due to possible procedure in AM Status: Acute Chief Complaint/HPI Chief Complaint/HPI 65 yo F with h/o IA presents with dizziness and chest pain. States that the pain started today and has been constant. States that she was sitting down when she had the pain. Denies radiation to jaw or arm. States that she has nitro but she did not take any at home. States that she is feeling better since getting to the hospital. Denies any palpitations or racing heart rate. Denies any shortness of breath or diaphoresis. States that the dizziness happens when she changes position and that has been happening for about a month. Discharge Summary-Simple/Stand Procedures Cath: Normal vessels no intervention Consultations Dr Garcia: Cardiology Discharge Physical Examination Allergies: Coded Allergies: ketorolac (Verified Allergy, Intermediate, 08/27/17) doxycycline (Unverified Allergy, Unknown, 08/16/17) hydrocodone (Unverified Allergy, Unknown, 08/16/17) piroxicam (Unverified Allergy, Unknown, 08/16/17) Vitals & I&Os Vital Sign - Last 12Hours Date Time Temp Pulse Resp B/P (MAP) Pulse Ox O2 Delivery O2 Flow Rate FiO2 6/11/20 12:40 65 14 159/83 (108) 94 Room Air 03/28/20 07:15 36.8 Intake and Output 03/28/20 00:00 Intake Total 1300 ml Output Total 600 ml Balance 700 ml General Appearance: Alert, Oriented X3, Cooperative, No Acute Distress HEENT: Mucous Memb Moist/[place] Respiratory: Clear to Auscultation, Normal Air Movement Cardiovascular: Regular Rate, No Murmurs Abdominal: Normal Bowel Sounds, Soft, No Tenderness, No Masses Extremities: No Edema, No Tenderness/Swelling Skin: No Rashes, No Breakdown Neuro: Normal Speech, Strength at 5/5 X4 Ext, Sensation Intact, Cranial Nerves 3-12 NL Psych/Mental Status: Mental Status NL, Mood NL Hospital Course Was the Problem List Reviewed?: Yes See final discharge diagnosis. Radiology Reviewed NAME: CRISTHIAN MARSH [facility] REC#: [id number] PT STATUS: ADM IN : 1955 PHYSICIAN: MARILEE NICOLE MD ADMIT DATE: 03/26/20/[facility] Signed Date of Exam:03/26/20 CT ANGIO HEAD/NECK PROCEDURE: CT angiography of the head and CT angiography of the neck with and without contrast. TECHNIQUE: Contiguous noncontrast images were obtained from the skull base through the vertex. After intravenous contrast administration, helical CT angiography of the neck was performed. Source data was reformatted into 3D MIP projections. Delayed post contrast acquisition was also obtained. Auto Exposure Controls were utilized during the CT exam to meet ALARA standards for radiation dose reduction. INDICATION: Dizziness and fall. FINDINGS: Precontrast-weighted images demonstrate the ventricles and sulci to be within normal limits. No sulcal effacement or midline shift is identified. No acute intra-axial or extra-axial hemorrhage is detected. Cisterns are patent. Visualized paranasal sinuses are clear. Delayed postcontrast imaging is without evidence of unenhancing lesion. CT angiographic portion of the exam does show a normal three-vessel branching pattern to the aortic arch. The great vessels origins appear to be patent. Bilateral common carotid arteries are widely patent. Carotid bifurcations are unremarkable. There is moderate amount of tortuosity to the internal carotid arteries bilaterally. M1 and M2 branches of the middle cerebral arteries appear to be widely patent. Bilateral anterior cerebral arteries are widely patent. The basilar artery is widely patent. Bilateral posterior cerebral arteries are patent. Left vertebral artery is dominant. Both vertebral arteries appear to be widely patent. IMPRESSION: Unremarkable CT angiogram of the head and neck. Dictated by: Dictated on workstation # [id number] Dict: 03/26/20 1601 Trans: 03/26/201931 AS6 [id number] Interpreted by: REANNA LACKEY MD Electronically signed by: REANNA LACKEY MD 03/26/201931 Discussion & Recommendations 65 yo F that presented to ER with chest pain and dizziness. Patient had CE elevated x 1 then returned to normal. Plan was to take patient to skilled laborer which was done on day of discharge. Normal cath. Patient will be discharged on Statin, ASA, and BB. Will have close f.u with Cardiology and PCP. Discharge Condition at discharge stable Instructions to patient/family Please see electronic discharge instructions given to patient. Discharge Medications Reviewed and agree with Discharge Medication list on patient's Discharge Instruction sheet Clinical Quality Measures DVT/VTE Risk/Contraindication: Risk Factor Score Per Nursin RFS Level Per Nursing on Admit: 4+=Very High QUINN VASQUEZ MD Mar 28, 2020 13:39
--- NOTE | 2020-03-28 13:45 | Discharge Summary ---
Discharge [facility] Reconcile Patient Problems Problems Reviewed?: Yes Discharge Medications New, Converted or Re-Newed RX: Other (No new medications) Continued Medications: Aspirin (Aspirin) 81 Mg Tab.chew 81 MG PO HS, TAB Atorvastatin Calcium (Atorvastatin Calcium) 20 Mg Tablet 20 MG PO HS, TAB Flaxseed Oil (Flaxseed Oil) 1,000 Mg Capsule 1000 MG PO 1200, CAP Metoprolol Tartrate (Metoprolol Tartrate) 100 Mg Tablet 100 MG PO BID, TAB Multivits-Min/Iron/FA/Lutein (Centrum Silver Women Tablet) 1 Each Tablet 1 EACH PO DAILY, TAB Oxycodone HCl/Acetaminophen (Oxycodon-Acetaminophen 7.5-325) 1 Each Tablet 1 TAB PO Q6H PRN for PAIN-MODERATE, TAB Pantoprazole Sodium (Protonix) 40 Mg Tablet.dr 40 MG PO DAILY, TAB Pioglitazone HCl (Pioglitazone HCl) 15 Mg Tablet 15 MG PO DAILY, TAB Saxagliptin HCl (Onglyza) 5 Mg Tablet 5 MG PO DAILY, TAB Sertraline HCl (Sertraline HCl) 50 Mg Tablet 50 MG PO DAILY, TAB Tizanidine HCl (Tizanidine HCl) 4 Mg Tablet 4 MG PO TID PRN for MUSCLE SPASMS, TAB Activity & Diet Discharge Diet: ADA Diet, Cardiac Diet Activity as Tolerated: Yes QUINN VASQUEZ MD Mar 28, 2020 13:45
== END 2020-03-28 17:35 | disposition home or self-care (01) | DRG 287 ==
LOC: EDUNIT# 12:47 → ER 12:49 → CSD 16:36
PROVIDERS: ADMIT Family Medicine; ATTEND Family Medicine
PROC: 4A023N7 Measurement of Cardiac Sampling and Pressure, Left Heart, Percutaneous Approach (ICD-10-PCS; principal; 2020-03-28)
PROC: B2111ZZ Fluoroscopy of Multiple Coronary Arteries using Low Osmolar Contrast (ICD-10-PCS; 2020-03-28)
PROC: B2151ZZ Fluoroscopy of Left Heart using Low Osmolar Contrast (ICD-10-PCS; 2020-03-28)
PROC: B3101ZZ Fluoroscopy of Thoracic Aorta using Low Osmolar Contrast (ICD-10-PCS; 2020-03-28)
DX: R07.89 Other chest pain (principal); I25.10 Atherosclerotic heart disease of native coronary artery without angina pectoris; I11.9 Hypertensive heart disease without heart failure; E11.9 Type 2 diabetes mellitus without complications; Z79.84 Long term (current) use of oral hypoglycemic drugs; Z87.891 Personal history of nicotine dependence; R91.8 Other nonspecific abnormal finding of lung field; I25.2 Old myocardial infarction; E78.5 Hyperlipidemia, unspecified; K21.9 Gastro-esophageal reflux disease without esophagitis; F41.9 Anxiety disorder, unspecified; F32.9 Major depressive disorder, single episode, unspecified; M54.9 Dorsalgia, unspecified; E66.9 Obesity, unspecified; Z68.30 Body mass index [BMI] 30.0-30.9, adult; Z90.721 Acquired absence of ovaries, unilateral; Z90.5 Acquired absence of kidney
CPT/HCPCS: 36415; 70496; 70498; 72050; 72110; 73030; 80048; 80053; 80061; 81000; 82962; 83036; 84484; 85025; 93005; 93306; 93567; 96372

== ENCOUNTER → 2020-03-26 | Outpatient (CLI) | payer MEDICARE, MEDICAID ==
[~2020-03-26] MED LIST changes: +ATOR20TA66 PO; +FLAX10004 PO; +MULT-1021 PO; +PIOG15TA67 PO; +SAXA5TAB PO; +SERT50TA9 PO
--- NOTE | 2020-03-26 12:44 | Diagnostic Imaging Report ---
INDICATION: Proximal right humerus fracture, followup. TIME OF EXAM: 12:18 PM. COMPARISON: 02/27/2020. FINDINGS: A healing proximal humerus fracture is noted. There is continued sclerosis and blurring of the fracture lines of the proximal humerus, consistent with healing. The glenohumeral alignment is maintained. The acromioclavicular alignment is normal. IMPRESSION: Healing proximal right humerus fracture. Dictated by: Dictated on workstation # [id number]
--- NOTE | 2020-03-26 14:52 | Diagnostic Imaging Report ---
INDICATION: Pain, post surgical changes. COMPARISON: 12/12/2018. TECHNIQUE: Five radiographs of the cervical spine dated 03/26/2020. FINDINGS: Anterior plate and screw fixation of C4, C5, C6, and C7 is again identified with associated interbody disc devices. No evidence of hardware complication. Alignment of the cervical spine is well maintained. Vertebral body heights appear stable from the prior exam. Severe disc space height loss at C7/T1 is again noted. Neuroforamina are not well evaluated secondary to positioning. No acute fracture or dislocation. No destructive osseous process. Scattered facet joint degenerative changes and uncovertebral joint hypertrophy. The dens is grossly unremarkable. Prevertebral soft tissues are unremarkable. IMPRESSION: Similar-appearing examination demonstrating post surgical and degenerative changes without evidence of hardware complication or acute osseous abnormality. Dictated by: Dictated on workstation # [id number]
--- NOTE | 2020-03-26 17:02 | Diagnostic Imaging Report ---
INDICATION: Degenerative disc disease, pain COMPARISON: 11/04/2018 TECHNIQUE: 5 radiographs of the lumbar spine dated 03/26/2020 FINDINGS: Surgical clips within the right upper quadrant of the abdomen and chain suture within the left upper abdomen are again identified and stable. Five lumbar type vertebral bodies are present. A 3 mm grade 1 anterolisthesis of L4 on L5, stable. No additional anterolisthesis or retrolisthesis. Minimal chronic anterior wedging within the lower thoracic spine. Scattered endplate degenerative changes, greatest at L2/L3. No recent vertebral body compression deformity. Severe disc space height loss at L2/L3 with moderate disc space height loss at L5/S1. Multilevel small anterior osteophyte formation. No evidence of a pars interarticularis defect. The bilateral sacroiliac joints are intact. No acute fracture or dislocation. Scattered facet joint degenerative changes. Scattered vascular calcifications. IMPRESSION: No acute osseous abnormality with moderate multilevel degenerative changes as described above. Dictated by: Dictated on workstation # [id number]
== END ==
LOC: ORTHO 11:34
PROVIDERS: ATTEND Orthopaedic Surgery
DX: S42.201D Unspecified fracture of upper end of right humerus, subsequent encounter for fracture with routine healing (principal); M50.30 Other cervical disc degeneration, unspecified cervical region; M47.812 Spondylosis without myelopathy or radiculopathy, cervical region; M43.16 Spondylolisthesis, lumbar region; M47.816 Spondylosis without myelopathy or radiculopathy, lumbar region; M51.37 Other intervertebral disc degeneration, lumbosacral region; M25.78 Osteophyte, vertebrae; I99.8 Other disorder of circulatory system; Z98.890 Other specified postprocedural states
CPT/HCPCS: 72050; 72110; 73030; 99213

== ENCOUNTER 2020-04-16 13:04 | Outpatient (RCR) | payer MEDICAID, MEDICARE ==
[~2020-04-16 13:04] MED LIST changes: +ATOR20TA66 PO; +FLAX10004 PO; +MULT-1021 PO; +PIOG15TA67 PO; +SAXA5TAB PO; +SERT50TA9 PO
[2020-05-06] MEDS ORDERED: METO-333 PO (13:20)
[2020-05-06] MEDS ORDERED: METF-397 PO (13:20)
== END 2020-05-03 10:24 | disposition home or self-care (01) ==
PROVIDERS: ATTEND Orthopaedic Surgery
DX: S42.231A 3-part fracture of surgical neck of right humerus, initial encounter for closed fracture (principal); I10 Essential (primary) hypertension; M19.90 Unspecified osteoarthritis, unspecified site; E11.9 Type 2 diabetes mellitus without complications; F32.9 Major depressive disorder, single episode, unspecified; Z85.528 Personal history of other malignant neoplasm of kidney; Z86.79 Personal history of other diseases of the circulatory system

== ENCOUNTER 2020-05-07 05:41 | Outpatient (RCR) | payer MEDICARE ==
[~2020-05-07] VITALS: Ht 172 cm; Wt 93.1 kg
== END 2020-05-07 13:33 | disposition home or self-care (01) ==
LOC: PREOP 05:41
PROVIDERS: ATTEND Specialist
DX: Z01.818 Encounter for other preprocedural examination (principal); Z01.812 Encounter for preprocedural laboratory examination; Z20.828 Contact with and (suspected) exposure to other viral communicable diseases
CPT/HCPCS: 87635

== ENCOUNTER → 2020-05-07 | Outpatient (CLI) | payer MEDICARE ==
[~2020-05-07] MED LIST changes: +METF-397 PO; +METO-333 PO
== END ==
LOC: ORTHO 13:04
PROVIDERS: ATTEND Orthopaedic Surgery
DX: S42.231A 3-part fracture of surgical neck of right humerus, initial encounter for closed fracture (principal)

== ENCOUNTER 2020-05-10 07:22 | Day surgery (SDC) | payer MEDICARE ==
[~2020-05-10] VITALS: Ht 172 cm; Wt 93.1 kg
[2020-05-10] MEDS ORDERED: TIMOLOL MALEATE 0.5% 5 ML (TIMOPTIC) BTL OU PRN (07:45)
[2020-05-10] MEDS ORDERED: MOXIFLOXACIN OPHTH SOLN 5 MG/ML 0.3 ML SYRINGE OP ONE (07:45)
[2020-05-10] MEDS ORDERED: LIDOCAINE PF 1% 2 ML VIAL IR PRN (07:45)
[2020-05-10] MEDS ORDERED: POVIDONE (BETADINE) OPHTH SOLN 5% 30 ML OP ONE (07:45)
[2020-05-10] MEDS: TETRACAINE 0.5% OPHTH SOLN 4 ML BTL (SINGLE DOSE ONLY) OU PRN ×4 (07:48→08:06)
[2020-05-10 07:50] VITALS: BP 147/75
[2020-05-10] MEDS: PHENYLEPHRINE 10% OPHTH (NEO-SYN) 5 ML BTL OU SCH ×3 (08:00→08:13)
[2020-05-10] MEDS: CYCLOPENTOLATE 1% (CYCLOGYL) 2 ML DROPS OP SCH ×3 (08:00→08:13)
--- NOTE | 2020-05-10 08:51 | Ophthalmologist Pre-Op Note ---
Pre-Operative Progress Note H&P Reviewed The H&P was reviewed, patient examined and no changes noted. Date H&P Reviewed: May 10, 2020 Time H&P Reviewed: 08:51 Pre-Op Dx Cataract, Right Eye GABRIEL HARRIS MD May 10, 2020 08:51
[2020-05-10] MEDS ORDERED: MIDAZOLAM 2 MG/2 ML (VERSED) VIAL ONE (08:55)
[2020-05-10] MEDS ORDERED: acetaZOLAMIDE ER 500 MG CAP (DIAMOX SEQUELS) PO ONE (09:00)
--- NOTE | 2020-05-10 09:15 | Ophthalmology Operative Report ---
Cataract removal/placement IOL PREOPERATIVE DIAGNOSIS: Cataract Right Eye POSTOPERATIVE DIAGNOSIS: Cataract Right Eye PROCEDURE: Cataract removal and placement of posterior chamber implant, right eye SURGEON: Harley Harris ANESTHESIA: Topical with sedation COMPLICATIONS: None ESTIMATED BLOOD LOSS: Minimal DESCRIPTION OF PROCEDURE: After proper informed consent was obtained, the patient, a 65 female, was taken to the Operating Room and the right eye was anesthetized with tetracaine. The right eye was then prepped and draped in the usual manner. A wire lid speculum was placed. A paracentesis was made at the left hand position. Preservative free lidocaine was injected into the anterior chamber followed by viscoelastic. A clear corneal incision was made in the temporal position. A capsulorrhexis was preformed and the central nuclear and cortical material were removed. The posterior capsule was polished and Leo 14.0 AU00T0 IOL was placed into the capsular bag. The residual viscoelastic was aspirated and balanced saline solution was injected into the anterior chamber. Moxifloxacin was injected into the anterior chamber. The wound was checked and found to be water tight. The patient tolerated the procedure well without complications. HARLEY HARRIS MD May 10, 2020 09:15
[2020-05-10 09:25] VITALS: BP 156/82
--- NOTE | 2020-05-10 12:26 | Anesthesia-General Post-Op ---
MAC Patient Condition Mental Status/LOC: Same as Preop Cardiovascular: Satisfactory Nausea/Vomiting: Absent Respiratory: Satisfactory Pain: Controlled Complications: Absent Post Op Complications Complications None Follow Up Care/Instructions Patient Instructions None needed. Anesthesiology Discharge Order Discharge Order Patient is doing well, no complaints, stable vital signs, no apparent adverse anesthesia problems. No complications reported per nursing. SILAS GARRISON CRNA May 10, 2020 12:26
== END 2020-05-10 09:25 | disposition home or self-care (01) ==
LOC: SDC 07:22
PROVIDERS: ATTEND Specialist
DX: H25.11 Age-related nuclear cataract, right eye (principal); E11.36 Type 2 diabetes mellitus with diabetic cataract; I10 Essential (primary) hypertension; Z79.899 Other long term (current) drug therapy; Z88.5 Allergy status to narcotic agent; Z88.1 Allergy status to other antibiotic agents; Z88.8 Allergy status to other drugs, medicaments and biological substances; Z85.528 Personal history of other malignant neoplasm of kidney; Z87.891 Personal history of nicotine dependence
CPT/HCPCS: 66984; V2632

== ENCOUNTER 2020-06-03 05:52 | Outpatient (CLI) | payer MEDICARE | END 2020-06-03 15:36 | disposition home or self-care (01) | LOC: PREOP 05:52 | PROVIDERS: ATTEND Specialist | DX: Z01.818 Encounter for other preprocedural examination (principal) ==

== ENCOUNTER 2020-06-07 06:00 | Day surgery (SDC) | payer MEDICARE ==
[~2020-06-07] VITALS: Ht 172 cm
[2020-06-07 06:00] VITALS: BP 151/79
[2020-06-07] MEDS ORDERED: LIDOCAINE PF 1% 2 ML VIAL IR PRN (06:15)
[2020-06-07] MEDS ORDERED: POVIDONE (BETADINE) OPHTH SOLN 5% 30 ML OP ONE (06:15)
[2020-06-07] MEDS ORDERED: MOXIFLOXACIN OPHTH SOLN 5 MG/ML 0.3 ML SYRINGE OP ONE (06:15)
[2020-06-07] MEDS ORDERED: TIMOLOL MALEATE 0.5% 5 ML (TIMOPTIC) BTL OU PRN (06:15)
[2020-06-07] MEDS: TETRACAINE 0.5% OPHTH SOLN 4 ML BTL (SINGLE DOSE ONLY) OU PRN ×4 (06:15→06:42)
[2020-06-07] MEDS: PHENYLEPHRINE 10% OPHTH (NEO-SYN) 5 ML BTL OU SCH ×3 (06:25→06:42)
[2020-06-07] MEDS: CYCLOPENTOLATE 1% (CYCLOGYL) 2 ML DROPS OP SCH ×3 (06:25→06:42)
[2020-06-07] MEDS ORDERED: MIDAZOLAM 2 MG/2 ML (VERSED) VIAL ONE (06:45)
--- NOTE | 2020-06-07 06:51 | Ophthalmologist Pre-Op Note ---
Pre-Operative Progress Note H&P Reviewed The H&P was reviewed, patient examined and no changes noted. Date H&P Reviewed: Jun 07, 2020 Time H&P Reviewed: 06:51 Pre-Op Dx Cataract, Left Eye GABRIEL HARRIS MD Jun 07, 2020 06:51
--- NOTE | 2020-06-07 07:32 | Ophthalmology Operative Report ---
Cataract removal/placement IOL PREOPERATIVE DIAGNOSIS: Cataract Left Eye POSTOPERATIVE DIAGNOSIS: Cataract Left Eye PROCEDURE: Cataract removal and placement of posterior chamber implant, left eye SURGEON: Harley Harris ANESTHESIA: Topical with sedation COMPLICATIONS: None ESTIMATED BLOOD LOSS: Minimal DESCRIPTION OF PROCEDURE: After proper informed consent was obtained, the patient, a 65 female, was taken to the Operating Room and the left eye was anesthetized with tetracaine. The left eye was then prepped and draped in the usual manner. A wire lid speculum was placed. A paracentesis was made at the left hand position. Preservative free lidocaine was injected into the anterior chamber followed by viscoelastic. A clear corneal incision was made in the temporal position. A capsulorrhexis was preformed and the central nuclear and cortical material were removed. The posterior capsule was polished and an Leo 15.0 AU00T0 was placed into the capsular bag. The residual viscoelastic was aspirated and balanced saline solution was injected into the anterior chamber. Moxifloxacin was injected into the anterior chamber. The wound was checked and found to be water tight. The patient tolerated the procedure well without complications. HARLEY HARRIS MD Jun 07, 2020 07:32
[2020-06-07 07:38] VITALS: BP 151/79
--- NOTE | 2020-06-07 10:54 | Anesthesia-General Post-Op ---
MAC Patient Condition Mental Status/LOC: Same as Preop Cardiovascular: Satisfactory Nausea/Vomiting: Absent Respiratory: Satisfactory Pain: Controlled Complications: Absent Post Op Complications Complications None Follow Up Care/Instructions Patient Instructions None needed. Anesthesiology Discharge Order Discharge Order Patient is doing well, no complaints, stable vital signs, no apparent adverse anesthesia problems. No complications reported per nursing. JOHN SLADE CRNA Jun 07, 2020 10:54
[2020-06-07] MEDS ORDERED: acetaZOLAMIDE ER 500 MG CAP (DIAMOX SEQUELS) PO ONE (12:00)
== END 2020-06-07 07:38 | disposition home or self-care (01) ==
LOC: SDC 06:00
PROVIDERS: ATTEND Specialist
DX: H25.12 Age-related nuclear cataract, left eye (principal); Z88.5 Allergy status to narcotic agent; Z88.1 Allergy status to other antibiotic agents; Z87.891 Personal history of nicotine dependence
CPT/HCPCS: 66984; V2632

== ENCOUNTER → 2020-06-17 | Outpatient (CLI) | payer MEDICARE | LOC: ORTHO 11:38 | PROVIDERS: ATTEND Orthopaedic Surgery | DX: S42.201D Unspecified fracture of upper end of right humerus, subsequent encounter for fracture with routine healing (principal); Z20.828 Contact with and (suspected) exposure to other viral communicable diseases; X58.XXXD Exposure to other specified factors, subsequent encounter ==

== ENCOUNTER 2020-07-18 19:17 | Emergency (ER) | payer OTHER, MEDICARE ==
[~2020-07-18] VITALS: Ht 175.2 cm; Wt 95.2 kg
[~2020-07-18 19:17] MED LIST changes: +OXC5T PO; -OXYC5TAB96 PO
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
[2020-07-18 20:39] VITALS: BP 168/99
== END 2020-07-18 20:39 | disposition home or self-care (01) ==
LOC: EDUNIT# 19:17 → ER 19:19
DX: S16.1XXA Strain of muscle, fascia and tendon at neck level, initial encounter (principal); I25.2 Old myocardial infarction; E11.9 Type 2 diabetes mellitus without complications; E78.00 Pure hypercholesterolemia, unspecified; G51.0 Bell's palsy; K21.9 Gastro-esophageal reflux disease without esophagitis; G89.29 Other chronic pain; M54.9 Dorsalgia, unspecified; F41.9 Anxiety disorder, unspecified; F32.9 Major depressive disorder, single episode, unspecified; F17.210 Nicotine dependence, cigarettes, uncomplicated; Z88.1 Allergy status to other antibiotic agents; Z88.5 Allergy status to narcotic agent; Z88.6 Allergy status to analgesic agent; Z79.891 Long term (current) use of opiate analgesic; Z79.82 Long term (current) use of aspirin; Z95.9 Presence of cardiac and vascular implant and graft, unspecified; Z85.528 Personal history of other malignant neoplasm of kidney; Z79.84 Long term (current) use of oral hypoglycemic drugs; V49.00XA Driver injured in collision with unspecified motor vehicles in nontraffic accident, initial encounter; Y92.481 Parking lot as the place of occurrence of the external cause
CPT/HCPCS: 70450; 72125

== ENCOUNTER 2020-07-24 14:47 | Emergency (ER) | payer OTHER, MEDICARE ==
[~2020-07-24] VITALS: Ht 172.5 cm; Wt 95.2 kg
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
[2020-07-24] MEDS ORDERED: oxyCODONE/APAP 10/325MG (PERCOCET 10) TABLET PO ONE (17:45)
[2020-07-24 18:05] VITALS: BP 168/84
== END 2020-07-24 18:10 | disposition home or self-care (01) ==
LOC: EDUNIT# 14:47 → ER 14:48
DX: M48.05 Spinal stenosis, thoracolumbar region (principal); M51.35 Other intervertebral disc degeneration, thoracolumbar region; I25.2 Old myocardial infarction; E78.00 Pure hypercholesterolemia, unspecified; K21.9 Gastro-esophageal reflux disease without esophagitis; F41.9 Anxiety disorder, unspecified; F32.9 Major depressive disorder, single episode, unspecified; E11.9 Type 2 diabetes mellitus without complications; G89.29 Other chronic pain; M54.9 Dorsalgia, unspecified; Z88.1 Allergy status to other antibiotic agents; Z88.5 Allergy status to narcotic agent; Z88.8 Allergy status to other drugs, medicaments and biological substances; F17.210 Nicotine dependence, cigarettes, uncomplicated; Z79.84 Long term (current) use of oral hypoglycemic drugs; Z85.528 Personal history of other malignant neoplasm of kidney; Z95.9 Presence of cardiac and vascular implant and graft, unspecified; Z82.49 Family history of ischemic heart disease and other diseases of the circulatory system; Z79.82 Long term (current) use of aspirin; Z79.891 Long term (current) use of opiate analgesic
CPT/HCPCS: 72128; 72131

== ENCOUNTER → 2020-08-05 | Outpatient (CLI) | payer MEDICARE, MEDICAID ==
--- NOTE | 2020-08-05 20:47 | Diagnostic Imaging Report ---
EXAM: Digital mammogram, bilateral screening. COMPARISON: This study was compared to the prior exams of 05/31/2019, 01/16/2019, 11/03/2017 and 06/18/2016. There are no current complaints. FINDINGS: The fibroglandular tissue in both breasts is heterogeneously dense. This does limit the sensitivity of this exam. On the craniocaudad view of the right breast in the midportion of the breast, approximately 4.3 cm deep to the nipple, there is a small 4.4 mm asymmetry. This finding was not clearly evident on the prior exam nor can it be identified with certainty on the MLO view of the right breast on this exam. This density may merely be secondary to fibroglandular tissue or to a benign process. It would be unlikely that this is neoplastic in nature. Even so, I would recommend that a compression view of this area be obtained in the CC projection as well as a true lateral view for further study. Ultrasound should also be performed. The left breast is unchanged. IMPRESSION: Additional mammographic views and ultrasound of the right breast should be obtained for further evaluation. ACR BI-RADS Category 0: Incomplete. (Needs additional imaging evaluation). Result letter will be mailed to the patient. Note: At least 10% of breast cancer is not imaged by mammography. Dictated by: Dictated on workstation # [id number]
== END ==
LOC: RAD 09:44
PROVIDERS: ATTEND Nurse Practitioner Family
DX: Z12.31 Encounter for screening mammogram for malignant neoplasm of breast (principal)
CPT/HCPCS: 77063; 77067

== ENCOUNTER 2020-08-20 12:45 | Outpatient (RCR) | payer MEDICAID, MEDICARE, OTHER ==
[2020-08-24] MEDS ORDERED: PRD20T PO (20:07)
[2020-08-24] MEDS ORDERED: CYCL10TA9 PO (20:07)
== END 2020-09-30 15:30 | disposition home or self-care (01) ==
PROVIDERS: ATTEND Neurological Surgery
DX: M48.061 Spinal stenosis, lumbar region without neurogenic claudication (principal); M51.36 Other intervertebral disc degeneration, lumbar region; M70.61 Trochanteric bursitis, right hip; M46.1 Sacroiliitis, not elsewhere classified

== ENCOUNTER 2020-08-24 16:53 | Emergency (ER) | payer MEDICARE ==
[~2020-08-24] VITALS: Ht 172 cm; Wt 97.0 kg
[2020-08-24] MEDS ORDERED: ORPHENADRINE 60 MG/2 ML (NORFLEX) AMP (ED ONLY) IM STA (17:31)
[2020-08-24 17:53] LABS: BASOPHILS % (AUTO) 1 % (0-10); EOSINOPHILS # (AUTO) 0.3 10^3/uL (0.0-0.3); EOSINOPHILS % (AUTO) 4 % (0-10); HEMATOCRIT 43 % (35-52); HEMOGLOBIN 14.4 g/dL (11.5-16.0); LYMPHOCYTES # (AUTO) 2.3 10^3/uL (1.0-4.0); LYMPHOCYTES % (AUTO) 29 % (12-44); MEAN CORPUSCULAR HEMOGLOBIN 31 pg (25-34); MEAN CORPUSCULAR HGB CONC 33 g/dL (32-36); MEAN CORPUSCULAR VOLUME 92 fL (80-99); MEAN PLATELET VOLUME 9.7 fL (9.0-12.2); MONOCYTES # (AUTO) 0.6 10^3/uL (0.0-1.0); MONOCYTES % (AUTO) 7 % (0-12); NEUTROPHILS # (AUTO) 4.8 10^3/uL (1.8-7.8); NEUTROPHILS % (AUTO) 59 % (42-75); PLATELET COUNT 151 10^3/uL (130-400)
[2020-08-24 18:01] LABS: ALBUMIN 4.1 GM/DL (3.2-4.5); CHLORIDE 104 MMOL/L (98-107); POTASSIUM 3.7 MMOL/L (3.6-5.0); SODIUM 140 MMOL/L (135-145)
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
[2020-08-24 18:03] LABS: CALCIUM 9.8 MG/DL (8.5-10.1)
[2020-08-24 18:04] LABS: GLUCOSE 159 MG/DL (70-105); TOTAL PROTEIN 7.4 GM/DL (6.4-8.2)
[2020-08-24 18:05] LABS: CARBON DIOXIDE 23 MMOL/L (21-32); FIBRIN DEGRADATION PRODUCTS 0.63 UG/ML (0.00-0.49); INR 0.9 (0.8-1.4); PROTHROMBIN TIME PATIENT 12.9 SEC (12.2-14.7)
[2020-08-24 18:06] LABS: BILIRUBIN,TOTAL 0.5 MG/DL (0.1-1.0)
[2020-08-24 18:07] LABS: ALKALINE PHOSPHATASE 100 U/L (40-136); GFR ESTIMATED > 60
[2020-08-24 18:08] LABS: BUN/CREATININE RATIO 20
[2020-08-24 18:10] LABS: ALANINE AMINOTRANSFERASE 15 U/L (0-55)
[2020-08-24] MEDS ORDERED: LACTATED RINGERS 1,000 ML IV ONE (18:10)
--- NOTE | 2020-08-24 18:11 | Diagnostic Imaging Report ---
INDICATION: STROKE. EXAMINATION: Upright chest. FINDINGS: Normal heart size and vascularity. The lungs are clear. There is no effusion or pneumothorax. IMPRESSION: No acute abnormality is seen with no change from 02/22/2020. Dictated by: Dictated on workstation # [id number]
[2020-08-24] MEDS ORDERED: NS 100 ML (IVPB) BAG IV ONE (18:15)
[2020-08-24] MEDS ORDERED: HOLD METFORMIN - RECEIVED CONTRAST 20 ML VIAL IV SCH (18:15)
[2020-08-24] MEDS ORDERED: IOHEXOL 350 MG/ML 100 ML (OMNIPAQUE 350) VIAL IV ONE (18:15)
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
[2020-08-24 18:42] LABS: BILIRUBIN,URINE NEGATIVE (NEGATIVE); CLARITY,URINE CLEAR; COLOR,URINE YELLOW; GLUCOSE, URINE (UA) NEGATIVE (NEGATIVE); KETONES,URINE NEGATIVE (NEGATIVE); LEUKOCYTE ESTERASE ,URINE NEGATIVE (NEGATIVE); NITRITE,URINE NEGATIVE (NEGATIVE); PH,URINE 6.5 (5-9); PROTEIN,URINE NEGATIVE (NEGATIVE)
[2020-08-24 18:57] LABS: BACTERIA,URINE NEGATIVE /HPF; RBC,URINE 0-2 /HPF; SQUAMOUS EPITHELIAL CELL,UR 0-2 /HPF
[2020-08-24] MEDS ORDERED: PRD20T PO (20:07)
[2020-08-24] MEDS ORDERED: CYCL10TA9 PO (20:07)
[2020-08-24 20:10] VITALS: BP 159/81
== END 2020-08-24 20:11 | disposition home or self-care (01) ==
LOC: EDUNIT# 16:53 → ER 16:55
DX: M54.12 Radiculopathy, cervical region (principal); M43.6 Torticollis; E11.9 Type 2 diabetes mellitus without complications; F32.9 Major depressive disorder, single episode, unspecified; F41.9 Anxiety disorder, unspecified; G89.29 Other chronic pain; K21.9 Gastro-esophageal reflux disease without esophagitis; E78.00 Pure hypercholesterolemia, unspecified; I25.2 Old myocardial infarction; Z87.828 Personal history of other (healed) physical injury and trauma; Z87.891 Personal history of nicotine dependence; Z95.9 Presence of cardiac and vascular implant and graft, unspecified; Z79.891 Long term (current) use of opiate analgesic; Z79.82 Long term (current) use of aspirin; Z79.84 Long term (current) use of oral hypoglycemic drugs; Z88.5 Allergy status to narcotic agent; Z88.1 Allergy status to other antibiotic agents; Z88.6 Allergy status to analgesic agent
CPT/HCPCS: 36415; 70450; 70496; 70498; 71045; 72125; 80053; 81000; 84484; 85025; 85379; 85610; 85730; 93005; 93041

== ENCOUNTER → 2020-09-16 | Outpatient (CLI) | payer MEDICARE, MEDICAID ==
[~2020-09-16] MED LIST changes: +CYCL10TA9 PO
--- NOTE | 2020-09-16 14:00 | Diagnostic Imaging Report ---
INDICATION: Right breast density. Patient presents for additional views. COMPARISON: Correlation is made to the recent screening study from 08/05/2020. TECHNIQUE: Unilateral right 2D and 3D diagnostic mammography was performed with CAD. FINDINGS: There is a tiny ovoid density in the medial right breast approximately 4 to 5 cm from the nipple. This has fairly benign features and may represent a tiny cyst. No other masses are seen. IMPRESSION: Tiny circumscribed density in the medial right breast at mid depth. Further evaluation with ultrasound is recommended and will be performed today. ACR BI-RADS Category 0: Incomplete. (Needs additional imaging evaluation). Result letter will be mailed to the patient. Note: At least 10% of breast cancer is not imaged by mammography. Dictated by: Dictated on workstation # [id number]
--- NOTE | 2020-09-16 15:56 | Diagnostic Imaging Report ---
INDICATION: Right breast density. COMPARISON: Correlation is made with diagnostic mammogram earlier this same day. FINDINGS: Sonographic interrogation of the inner right breast from the 2 to 5 o'clock location was performed. No sonographic abnormality is seen. No solid or cystic mass is detected. IMPRESSION: No sonographic abnormality is detected. A followup right mammogram in 6 months is recommended to show continued stability. ACR BI-RADS Category 3: Probably benign findings. Dictated by: Dictated on workstation # [id number]
== END ==
LOC: RAD 13:25
PROVIDERS: ATTEND Nurse Practitioner Family
DX: R92.2 Inconclusive mammogram (principal)
CPT/HCPCS: 76642; 77065; G0279

== ENCOUNTER 2021-04-17 10:08 | Outpatient (CLI) | payer MEDICARE, MEDICAID ==
[~2021-04-17] VITALS: Ht 172.7 cm; Wt 98.4 kg
[~2021-04-17 10:08] MED LIST changes: -LISI-552 PO; +LISI20TA26 PO; -OXYC-464 PO; +OXYC1TAB15 PO; +SERT-413 PO; -SERT50TA9 PO
[2021-04-17] MEDS ORDERED: SAXA5TAB PO (12:42)
[2021-04-17] MEDS ORDERED: AMLO-250 PO (12:42)
[2021-04-17] MEDS ORDERED: DULO30CA3 PO (12:42)
== END 2021-04-17 13:38 | disposition home or self-care (01) ==
LOC: PREOP 10:08
PROVIDERS: ATTEND Surgery
DX: Z01.818 Encounter for other preprocedural examination (principal)

== ENCOUNTER 2021-04-23 08:58 | Day surgery (SDC) | payer MEDICARE, MEDICAID ==
[~2021-04-23] VITALS: Ht 172.7 cm; Wt 98.6 kg
[~2021-04-23 08:58] MED LIST changes: +AMLO-250 PO; +DULO30CA3 PO
[2021-04-23] MEDS ORDERED: LACTATED RINGERS 1,000 ML IV STA (09:06)
[2021-04-23] MEDS ORDERED: LACTATED RINGERS 1,000 ML IV ONE (09:09)
[2021-04-23] MEDS ORDERED: LIDOCAINE JELLY 2% 6 ML SYRINGE MM PRN (09:15)
[2021-04-23 09:18] VITALS: BP 113/71
[2021-04-23] MEDS ORDERED: proPOfol 200 MG/20 ML (DIPRIVAN) VIAL IV ONE (11:14)
[2021-04-23] MEDS ORDERED: MIDAZOLAM 2 MG/2 ML (VERSED) VIAL ONE (11:14)
--- NOTE | 2021-04-23 11:21 | Progress Note-Pre Operative ---
Pre-Operative Progress Note H&P Reviewed The H&P was reviewed, patient examined and no changes noted. Date Seen by Provider: Apr 23, 2021 Time Seen by Provider: 10:00 Date H&P Reviewed: Apr 23, 2021 Time H&P Reviewed: 10:00 Pre-Operative Diagnosis: screening, hx polyp MARGUERITE WAITE MD Apr 23, 2021 11:21
--- NOTE | 2021-04-23 11:23 | Discharge Inst-Surgical ---
D/C Lap Instructions-RAVINDRA Follow Up Activity as tolerated High Fiber Diet 25g or more per day Avoid Alcohol, Caffeine, Spicy [place] and Acid foods. Drink 64 fluid oz or more of fluids per day. Symptoms to Report: Fever over 101 degree F, Nausea/Vomiting If any problems/questions: Contact your physician or go to Emergency Room MARGUERITE WAITE MD Apr 23, 2021 11:23
[2021-04-23] MEDS ORDERED: ACETAMINOPHEN 325 MG TABLET PO PRN (11:30)
[2021-04-23] MEDS ORDERED: ONDANSETRON 4 MG/2 ML (SDV) Z0FRAN IVP PRN (11:30)
[2021-04-23] MEDS ORDERED: oxyCODONE/APAP 5/325MG (PERCOCET 5) TABLET PO PRN (11:30)
[2021-04-23] MEDS ORDERED: morphine INJ 10 MG/ML 1ML (SYR OR VIAL) IVP PRN ×2 (11:30)
[2021-04-23 11:50] VITALS: BP 166/62
[2021-04-23 11:55] VITALS: BP_SYST 128; BP_SYST 132; BP_DIAS 65; BP_DIAS 77
[2021-04-23 12:17] VITALS: BP 160/81
--- NOTE | 2021-04-23 12:48 | Progress Note-Post Operative ---
Post-Operative Progess Note Surgeon (s)/Media Relations Associate (s) Surgeon MARGUERITE WAITE MD Media Relations Associate: none Pre-Operative Diagnosis screening, hx polyp Post-Operative Diagnosis mild chronic stage 2 ext and int hemorrhoids. Procedure & Operative Findings Date of Procedure 04/23/21 Procedure Performed/Findings colonoscopy Anesthesia Type mac Estimated Blood Loss Estimated blood loss (mL): minimal Specimens/Packing Specimens Removed none MARGUERITE WAITE MD Apr 23, 2021 12:48
--- NOTE | 2021-04-23 17:25 | OPERATIVE REPORT ---
DATE OF SERVICE: 04/23/2021 ATTENDING [employer] PRESS OPERATOR: Dr. Milan Scott PREOPERATIVE DIAGNOSIS: Screening colonoscopy with history of colon polyp. POSTOPERATIVE DIAGNOSES: Chronic stage II external and internal hemorrhoids. PROCEDURE: Colonoscopy. SURGEON: Marguerite Waite MD. ANESTHESIA: Monitored anesthesia care. ESTIMATED BLOOD LOSS: Minimal. FINDINGS: Chronic stage II external and internal hemorrhoids. DISPOSITION: The patient tolerated the procedure well. INDICATIONS: The patient is a 66-year-old female in need of a screening colonoscopy. She has a history of polyps, which were removed and found to be benign. Her last colonoscopy was approximately 5 years ago. She does have number of medical comorbidities. However, does not report any major issues with diarrhea nor constipation as well as no red blood per rectum nor any dark tarry stools. She also does not report any family history of colon cancer. DESCRIPTION OF PROCEDURE: The patient was brought to the endoscopy suite, laid in the left lateral decubitus position. After adequate IV pain and sedative medications and monitored anesthesia care, a digital rectal examination was performed. Mild chronic stage II external and internal hemorrhoids were identified, which were not actively edematous nor inflamed and no bleeding. Normal sphincter tone was felt and there were no palpable masses. The endoscope was then advanced through the valves of [place] of the rectum with no polyps or any neoplasms identified. The endoscope was then advanced through the sigmoid colon where no diverticulosis identified. The endoscope was then advanced to the remainder of the descending, transverse and ascending colon to the cecum. These segments were normal as well. The endoscope was then slowly withdrawn while taking a second look and suctioning of residual air with no additional findings. The patient tolerated the procedure well. We will recommend continued medical management with the incorporation of a fiber supplement and should equate or exceed 25 grams daily as well as significant amounts of water to promote soft stools on a daily basis that are soft and daily and to prevent constipation. No polyps identified and she does not have any family history of colon cancer and if she is asymptomatic, she does not need another colonoscopy for another 10 years. Job ID: [id number] DocumentID: [id number] Dictated Date: 04/23/2021 11:53:03 Quantitative Equity Head Date: 04/23/2021 17:25:12 Dictated By: MARGUERITE WAITE MD [facility]
--- NOTE | 2021-04-24 15:19 | Anesthesia-General Post-Op ---
MAC Patient Condition Mental Status/LOC: Same as Preop Cardiovascular: Satisfactory Nausea/Vomiting: Absent Respiratory: Satisfactory Pain: Controlled Complications: Absent Post Op Complications Complications None Follow Up Care/Instructions Patient Instructions None needed. Anesthesiology Discharge Order Discharge Order Patient is doing well, no complaints, stable vital signs, no apparent adverse anesthesia problems. No complications reported per nursing. TERI FELIZ CRNA Apr 24, 2021 15:19
== END 2021-04-23 12:24 | disposition home or self-care (01) ==
LOC: ENDO 08:58
PROVIDERS: ATTEND Surgery
DX: Z12.11 Encounter for screening for malignant neoplasm of colon (principal); Z86.010 Personal history of colon polyps; K64.4 Residual hemorrhoidal skin tags; K64.1 Second degree hemorrhoids; E78.5 Hyperlipidemia, unspecified; E66.9 Obesity, unspecified; M79.7 Fibromyalgia; E11.9 Type 2 diabetes mellitus without complications; I10 Essential (primary) hypertension; E78.00 Pure hypercholesterolemia, unspecified; Z68.33 Body mass index [BMI] 33.0-33.9, adult; F17.210 Nicotine dependence, cigarettes, uncomplicated; Z79.899 Other long term (current) drug therapy; Z79.891 Long term (current) use of opiate analgesic; Z79.84 Long term (current) use of oral hypoglycemic drugs; Z90.49 Acquired absence of other specified parts of digestive tract; Z80.1 Family history of malignant neoplasm of trachea, bronchus and lung
CPT/HCPCS: 82947; G0105

== ENCOUNTER → 2021-05-21 | Outpatient (CLI) | payer MEDICARE, MEDICAID ==
--- NOTE | 2021-05-21 13:05 | Diagnostic Imaging Report ---
INDICATION: Six-month followup right breast nodule. COMPARISON: Correlation is made with the prior mammograms from 08/05/2020 and 09/16/2020. TECHNIQUE: 2D and 3D unilateral right diagnostic mammography was performed with CAD. FINDINGS: Scattered fibroglandular densities are identified in the right breast. The tiny circumscribed nodular density appears stable and consistent with a benign etiology. No new mass or malignant-appearing microcalcifications are seen. There are benign calcifications present. The right axilla is unremarkable. IMPRESSION: Stable benign findings. The patient may return to routine annual screening mammography in 6 months. ACR BI-RADS Category 2: Benign findings. Result letter will be mailed to the patient. Note: At least 10% of breast cancer is not imaged by mammography. Dictated by: Dictated on workstation # [id number]
== END ==
LOC: RAD 12:45
PROVIDERS: ATTEND Physician Assistant
DX: N63.10 Unspecified lump in the right breast, unspecified quadrant (principal)
CPT/HCPCS: 77065; G0279

== ENCOUNTER → 2021-06-17 | Outpatient (CLI) | payer MEDICARE, MEDICAID ==
--- NOTE | 2021-06-17 15:39 | Diagnostic Imaging Report ---
INDICATION: Fall and back pain. TIME OF EXAM: 3:07 PM. FINDINGS: Four views of the lumbar spine were obtained. The curvature is normal. There is minimal retrolisthesis of L2 on L3. There is minimal anterolisthesis of L4 on L5. The vertebral body heights are maintained. No acute compression fracture is seen. There is multilevel degenerative disc disease with variable disc space narrowing and marginal spurring. There does appear to be some motion at the L4-L5 level with 4 on 5 listhesis increasing during flexion maneuver. There may be some slight motion as well at the L2-L3 level where there is some increase in retrolisthesis of L2 on L3 during extension. IMPRESSION: Multilevel lumbar spondylosis and listhesis with some motion at the L2-L3 and L4-L5 levels during flexion and extension maneuvers. Dictated by: Dictated on workstation # [id number]
--- NOTE | 2021-06-17 16:08 | Diagnostic Imaging Report ---
PROCEDURE: MRI lumbar spine. TECHNIQUE: Multiplanar, multisequence MRI of the lumbar spine was performed without contrast. DATE: June 17, 2021. COMPARISON: CT thoracic and lumbar spine July 24, 2020. MRI lumbar spine August 31, 2019. INDICATION: 66-year-old female, fall a few weeks ago. Mid and lower back pain. FINDINGS: There is grade 1 retrolisthesis of L2 on L3 measuring 4 mm. There is no evidence of a diffuse marrow infiltrating or replacing process. There is no identified focal concerning bone lesion. There is no identified acute fracture of the lumbar spine. The visualized cord and conus medullaris is unremarkable and terminates at the L2 level. There are multilevel mild disc degenerative changes of the lower thoracic spine. There is mild disc height loss at L1-L2. There is moderate to severe disc height loss at L2-L3. There is severe disc height loss at L5-S1. There are multilevel endplate degenerative related Modic changes. The left kidney appears absent. L1-L2: There is mild diffuse disc bulge. The facet joints and ligamentum flavum are unremarkable. There is no foraminal narrowing. There is no spinal canal stenosis. L2-L3: There is diffuse disc bulge. There is a superimposed central disc extrusion. There is severe narrowing of the bilateral lateral recesses. There is prominence of the posterior epidural fat. The facet joints and ligamentum flavum are unremarkable. There is moderate bilateral foraminal narrowing. There is severe spinal canal stenosis. L3-L4: There is diffuse disc bulge. The facet joints and ligamentum flavum are unremarkable. There is mild left foraminal narrowing. There is moderate spinal canal stenosis. L4-L5: There is mild diffuse disc bulge. There are moderate bilateral facet degenerative changes without prominent ligamentum flavum hypertrophy. There is mild right and moderate left foraminal narrowing. There is no spinal canal stenosis. L5-S1: There is diffuse disc bulge. The facet joints and ligamentum flavum are unremarkable. There is mild right and moderate left foraminal narrowing. There is no spinal canal stenosis. IMPRESSION: Multilevel degenerative changes of the thoracolumbar spine as described in detail level by level above. Findings are most notable at L2-L3 with severe narrowing of the bilateral lateral recesses, severe spinal stenosis, and moderate bilateral foraminal narrowing. There are additional levels with foraminal and spinal stenosis as described above. Dictated by: Dictated on workstation # [id number]
--- NOTE | 2021-06-17 16:36 | Diagnostic Imaging Report ---
EXAM: MRI thoracic spine without contrast. DATE: June 17, 2021. INDICATION: 66-year-old female, fall a few weeks ago with persistent mid and lower back pain. COMPARISON: CT thoracic and lumbar spine July 24, 2020. FINDINGS: The alignment of the thoracic spine is unremarkable. There are multilevel moderate disc degenerative changes of the thoracic spine. There is no identified acute compression deformity or other acute fracture of the thoracic spine. There is anterior cervical spinal hardware at lower cervical spinal levels. There are several very small central disc protrusions and thoracic spine levels without spinal stenosis. There is no abnormal signal in the thoracic spinal cord. There is no focal concerning bone lesion. There is a mid thoracic vertebral body hemangioma. There is a T2 hyperintense right renal lesion measuring 2.4 cm in size on axial T2 sequence image 48. The left kidney is not well seen and may be absent or ectopically positioned. IMPRESSION: 1. Multilevel moderate disc degenerative changes of the thoracic spine with multilevel very small central disc protrusions and no spinal stenosis. 2. No acute fracture of the thoracic spine. 3. No abnormal cord signal. Dictated by: Dictated on workstation # [id number]
== END ==
LOC: RAD 14:00
PROVIDERS: ATTEND Neurological Surgery
DX: M47.815 Spondylosis without myelopathy or radiculopathy, thoracolumbar region (principal); M51.34 Other intervertebral disc degeneration, thoracic region; M51.24 Other intervertebral disc displacement, thoracic region; M48.07 Spinal stenosis, lumbosacral region; M51.27 Other intervertebral disc displacement, lumbosacral region; M43.16 Spondylolisthesis, lumbar region; W19.XXXA Unspecified fall, initial encounter
CPT/HCPCS: 72110; 72146; 72148

== ENCOUNTER → 2021-07-17 | Outpatient (CLI) | payer MEDICARE, MEDICAID ==
[2021-07-17 09:16] LABS: POTASSIUM 4.1 MMOL/L (3.6-5.0)
[2021-07-17 09:17] LABS: CALCIUM 9.9 MG/DL (8.5-10.1)
[2021-07-17 09:19] LABS: TOTAL PROTEIN 7.4 GM/DL (6.4-8.2)
[2021-07-17 09:20] LABS: BILIRUBIN,TOTAL 0.4 MG/DL (0.1-1.0)
[2021-07-17 09:22] LABS: CREATININE SERUM 0.76 MG/DL (0.60-1.30)
== END ==
LOC: LAB 08:45
PROVIDERS: ATTEND Nurse Practitioner Family
DX: E78.2 Mixed hyperlipidemia (principal)
CPT/HCPCS: 36415; 80053; 80061

== ENCOUNTER → 2021-09-09 | Outpatient (CLI) | payer MEDICARE, MEDICAID ==
[~2021-09-09] MED LIST changes: +CYCL10TA25 PO; -CYCL10TA9 PO; +TIZA-186 PO; -TIZA4TAB4 PO
--- NOTE | 2021-09-09 16:04 | Diagnostic Imaging Report ---
INDICATION: 66-year-old female, postmenopausal. Screening for osteoporosis. COMPARISON: None. FINDINGS: AP Spine L1-L4: [BMD (g/cm2): 1.136] [T-Score: -0.5] [Z-Score: 0.0] [BMD Previous: na] [BMD % Change: na] LT Hip Neck: [BMD (g/cm2): 0.797] [T-Score: -1.7] [Z-Score: -1.7-0.9] LT Hip Total: [BMD (g/cm2):0.847] [T-Score:-1.3] [Z-Score: -0.8] [BMD Previous: na] [BMD % Change: na] RT Hip Neck: [BMD (g/cm2):0.827] [T-Score:-1.5] [Z-Score:-0.7] RT Hip Total: [BMD (g/cm2):0.843] [T-score:-1.3] [Z-Score:-0.8] [BMD Previous:na] [BMD % Change:na] *Indicates significant change from prior examination based on 95% confidence level. World Health Organization criteria for BMD interpretation classify patients as Normal (T-score at or above -1.0), Osteopenic (T-score between -1.0 and -2.5) or Osteoporotic (T-score at or below -2.5). LIMITATIONS AND MODIFICATION: None. FRACTURE RISK (FRAX SCORE): The ten year probability of (%): Major Osteoporotic Fracture: [15.5] Hip Fracture: [2.0] IMPRESSION: 1. Osteopenia (Low bone mass). 2. Baseline examination. 3. See below National Osteoporosis Foundation guidelines on when to potentially initiate pharmacologic therapy. Based on the National Osteoporosis Foundation Guidelines, pharmacologic treatment should be initiated in any of the following, unless clinical conditions suggest otherwise: * Any patient with prior fragility fracture of the hip or vertebrae. A spine fracture indicates 5X risk for subsequent spine fracture and 2X risk for subsequent hip fracture. * Osteoporosis (T-score <-2.5). * Postmenopausal women and men age 50 and older with low bone mass/osteopenia (T-score between -1.0 and -2.5) by DXA and 10-year major osteoporotic fracture greater than 20% or a 10-year probability of hip fracture greater than 3%. These fracture risks are supplied above in the FRAX score, if applicable. * Clinician judgement and/or patient preferences may indicate treatment for people with 10-year fracture probabilities above or below these levels. Dictated by: Dictated on workstation # [id number]
== END ==
LOC: RAD 12:30
PROVIDERS: ATTEND Physician Assistant
DX: Z13.820 Encounter for screening for osteoporosis (principal); M85.80 Other specified disorders of bone density and structure, unspecified site; R93.7 Abnormal findings on diagnostic imaging of other parts of musculoskeletal system; Z78.0 Asymptomatic menopausal state
CPT/HCPCS: 77080

== ENCOUNTER → 2021-11-24 | Outpatient (CLI) | payer MEDICARE, MEDICAID ==
--- NOTE | 2021-11-24 15:48 | Diagnostic Imaging Report ---
PROCEDURE: MRI lumbar spine. TECHNIQUE: Multiplanar, multisequence MRI of the lumbar spine was performed without contrast. INDICATION: Chronic lower back pain. COMPARISON: 06/17/2021. FINDINGS: For the purposes of this exam, the last well-formed disc space is denoted the L5-S1 level. Evaluation of static alignment shows stable mild grade 1 retrolisthesis at the L2-L3 and L5-S1 levels. There is no evidence of jumped facets. Vertebral body heights are maintained. There is no acute fracture. Marrow signal demonstrates multilevel Modic endplate changes. There is also multilevel intervertebral disc height loss with anterior and posterior disc/osteophyte complex formations. Visualized portions of the distal cord are unremarkable. Conus terminates at approximately the L1-L2 level. No abnormal intrathecal filling defects are seen. Pre and paravertebral soft tissue structures are unremarkable. Axial images demonstrate the following: T12-L1: There is no large disc bulge or focal protrusion. There is mild bilateral ligamentum flavum laxity and facet arthropathy but no significant spinal canal or neuroforaminal stenosis. L1-L2: There is a broad-based posterior disc bulge with bilateral ligamentum flavum laxity and facet arthropathy. As a result, there is minimal narrowing of the spinal canal. The neuroforamen are unremarkable. L2-L3: There is central posterior disc protrusion superimposed on broad-based posterior disc bulge. There is also bilateral ligamentum flavum laxity and facet arthropathy. As a result, there is severe spinal canal stenosis. The thecal sac is narrowed to approximately 6 mm in the AP dimension. There is also a moderate stenosis of the bilateral neural foramen. L3-L4: There is a small central posterior disc protrusion superimposed on broad-based posterior disc bulge with bilateral ligamentum flavum laxity and facet arthropathy. As a result, there is mild narrowing of the spinal canal and left neuroforamen. The right neuroforamen is unremarkable. L4-L5: There is a broad-based posterior disc bulge with bilateral ligamentum flavum laxity and facet arthropathy. As a result, there is mild narrowing of the spinal canal and right neuroforamen. There is also moderate stenosis on the left. L5-S1: There is a broad-based posterior disc/osteophyte complex formation with bilateral facet arthropathy. As a result, there is mild narrowing of the spinal canal and moderate stenosis of the bilateral neural foramen. There is also extrusion of disc material into the right S1 neural foramen. This does abut the origin of the right S1 nerve root but there is no significant compression of the nerve root IMPRESSION: 1. Multilevel degenerative changes of the lumbar spine, greatest at the L2-L3 and L5-S1 levels as described above. 2. No acute fracture or dislocation. Dictated by: Dictated on workstation # [id number]
== END ==
LOC: RAD 14:45
PROVIDERS: ATTEND Physician Assistant
DX: M47.815 Spondylosis without myelopathy or radiculopathy, thoracolumbar region (principal); M47.816 Spondylosis without myelopathy or radiculopathy, lumbar region; M47.817 Spondylosis without myelopathy or radiculopathy, lumbosacral region; M51.26 Other intervertebral disc displacement, lumbar region; M51.27 Other intervertebral disc displacement, lumbosacral region; M48.061 Spinal stenosis, lumbar region without neurogenic claudication; M48.07 Spinal stenosis, lumbosacral region; G63 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 classified elsewhere
CPT/HCPCS: 72148

== ENCOUNTER 2022-03-14 18:29 | Emergency (ER) | payer MEDICARE, MEDICAID ==
[~2022-03-14] VITALS: Ht 172 cm; Wt 100.0 kg
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
[2022-03-14 19:14] LABS: BASOPHILS # (AUTO) 0.1 10^3/uL (0.0-0.1); BASOPHILS % (AUTO) 1 % (0-10); EOSINOPHILS # (AUTO) 0.4 10^3/uL (0.0-0.3); EOSINOPHILS % (AUTO) 5 % (0-10); HEMATOCRIT 42 % (35-52); LYMPHOCYTES # (AUTO) 2.9 10^3/uL (1.0-4.0); LYMPHOCYTES % (AUTO) 30 % (12-44); MEAN CORPUSCULAR HEMOGLOBIN 31 pg (25-34); MEAN CORPUSCULAR HGB CONC 33 g/dL (32-36); MEAN CORPUSCULAR VOLUME 94 fL (80-99); MEAN PLATELET VOLUME 10.3 fL (9.0-12.2); MONOCYTES # (AUTO) 0.7 10^3/uL (0.0-1.0); MONOCYTES % (AUTO) 7 % (0-12); NEUTROPHILS # (AUTO) 5.5 10^3/uL (1.8-7.8); NEUTROPHILS % (AUTO) 57 % (42-75); PLATELET COUNT 185 10^3/uL (130-400); WHITE BLOOD COUNT 9.5 10^3/uL (4.3-11.0)
--- NOTE | 2022-03-14 19:27 | Diagnostic Imaging Report ---
CHEST 1 VIEW, AP/PA ONLY Indication: Stroke, neuro deficits. Facial numbness. Comparison: 08/24/2020 Findings: No focal airspace disease in the visualized lungs. Please note that the posterior lower lobes are poorly evaluated by portable radiography. No pleural effusion or pneumothorax. Normal cardiomediastinal silhouette. Impression: 1. No acute cardiopulmonary process by portable radiography. Dictated by: Dictated on workstation # [id number]
[2022-03-14 19:30] LABS: ALBUMIN 4.1 GM/DL (3.2-4.5); CHLORIDE 104 MMOL/L (98-107); POTASSIUM 4.1 MMOL/L (3.6-5.0); SODIUM 140 MMOL/L (135-145)
--- NOTE | 2022-03-14 19:30 | Diagnostic Imaging Report ---
PROCEDURE: CT head w/o, r/o stroke. TECHNIQUE: Multiple contiguous axial images were obtained through the brain without the use of intravenous contrast. Auto Exposure Controls were utilized during the CT exam to meet ALARA standards for radiation dose reduction. INDICATION: Neurodeficits, difficulty speaking. COMPARISON: 08/24/2020. FINDINGS: No hyperdense hemorrhage or space-occupying mass. No hydrocephalus or midline shift. Henriquez-white matter differentiation is well-preserved. No hyperdense vessel sign. Basilar cisterns are patent. Mild periventricular hypoattenuation is most compatible with chronic microvascular ischemic change. No acute calvarial abnormality. Paranasal sinuses and mastoid air cells are clear. IMPRESSION: No acute intracranial hemorrhage or features of large territorial infarct. Dictated by: Dictated on workstation # [id number]
[2022-03-14 19:32] LABS: CALCIUM 10.3 MG/DL (8.5-10.1); FIBRIN DEGRADATION PRODUCTS 0.69 UG/ML (0.00-0.49); INR 0.8 (0.8-1.4); PROTHROMBIN TIME PATIENT 11.2 SEC (12.2-14.7)
[2022-03-14 19:33] LABS: GLUCOSE 157 MG/DL (70-105); TOTAL PROTEIN 7.5 GM/DL (6.4-8.2)
[2022-03-14 19:34] LABS: CARBON DIOXIDE 21 MMOL/L (21-32)
[2022-03-14 19:35] LABS: BILIRUBIN,TOTAL 0.5 MG/DL (0.1-1.0)
[2022-03-14 19:36] LABS: ALKALINE PHOSPHATASE 91 U/L (40-136); CREATININE SERUM 0.79 MG/DL (0.60-1.30); GFR ESTIMATED 82
[2022-03-14 19:37] LABS: BUN/CREATININE RATIO 23
[2022-03-14 19:37] LABS: BILIRUBIN,URINE NEGATIVE (NEGATIVE); CLARITY,URINE CLEAR; COLOR,URINE YELLOW; GLUCOSE, URINE (UA) NEGATIVE (NEGATIVE); KETONES,URINE NEGATIVE (NEGATIVE); LEUKOCYTE ESTERASE ,URINE TRACE (NEGATIVE); NITRITE,URINE POSITIVE (NEGATIVE); PROTEIN,URINE NEGATIVE (NEGATIVE)
[2022-03-14 19:39] LABS: ALANINE AMINOTRANSFERASE 18 U/L (0-55)
[2022-03-14 20:06] LABS: BACTERIA,URINE LARGE /HPF; RBC,URINE 0-2 /HPF
[2022-03-14] MEDS ORDERED: NITR-65 PO (20:18)
[2022-03-14 20:23] VITALS: BP 165/85
== END 2022-03-14 20:26 | disposition home or self-care (01) ==
LOC: EDUNIT# 18:29 → ER 18:30
DX: G52.9 Cranial nerve disorder, unspecified (principal); R82.71 Bacteriuria; R29.701 NIHSS score 1; I10 Essential (primary) hypertension; E78.5 Hyperlipidemia, unspecified; Z86.73 Personal history of transient ischemic attack (TIA), and cerebral infarction without residual deficits; Z79.899 Other long term (current) drug therapy
CPT/HCPCS: 36415; 70450; 71045; 80053; 81000; 82947; 84484; 85025; 85379; 85610; 85730; 87077; 87088; 87184; 87186; 93041

== ENCOUNTER 2022-07-30 12:59 | Emergency (ER) | payer MEDICARE, MEDICAID ==
[~2022-07-30] VITALS: Ht 175 cm; Wt 100.0 kg
[~2022-07-30 12:59] MED LIST changes: +NITR-65 PO
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
[2022-07-30 13:27] VITALS: BP 158/82
== END 2022-07-30 13:26 | disposition home or self-care (01) ==
LOC: EDUNIT# 12:59 → ER 13:02
DX: M54.2 Cervicalgia (principal); Z98.1 Arthrodesis status
CPT/HCPCS: 99281

== ENCOUNTER → 2022-08-13 | Outpatient (CLI) | payer MEDICARE, MEDICAID ==
--- NOTE | 2022-08-13 15:23 | Diagnostic Imaging Report ---
INDICATION: Recheck of spine. Continued pain. EXAMINATION: Lumbar spine MRI without contrast, 12/14/2021 COMPARISON: 11/24/2021. FINDINGS: The tip of the conus unremarkable in appearance and location. There is grade 1 retrolisthesis at L2-L3. Remaining alignment appears maintained. Vertebral body heights preserved. L1-L2: There is disc desiccation with minimal broad-based bulging disc material similar to previous imaging. There is bilateral facet and ligamentum flavum hypertrophy. There is no central stenosis. Neural foramina appear patent. L2-L3: There is intervertebral disc space narrowing and disc desiccation with a broad-based bulging disc. There is bilateral facet and ligamentum flavum hypertrophy. The size of the bulging disc material has decreased since the previous examination with decrease in degree of previously noted central stenosis which was previously severe, now considered moderate. There is mild narrowing of the lateral recesses, bilaterally. Moderate to severe bilateral neural foraminal stenosis is noted. L3-L4: There is intervertebral disc space narrowing and disc desiccation with a broad-based central bulging disc. There is bilateral facet and ligamentum flavum hypertrophy. There is secondary moderate central stenosis slightly worsened since previous imaging. There is mild narrowing of the lateral recesses, left greater than right. There is moderate left and mild right neural foraminal stenosis. L4-L5: There is disc desiccation with a mild broad-based bulging disc. There is bilateral facet and ligament flavum hypertrophy. Findings cause moderate central narrowing similar to the previous examination with narrowing of the left lateral recess. There is moderate to severe left and moderate right neural foraminal stenosis. L5-S1: There is disc desiccation with intervertebral disc space narrowing. There is a central disc protrusion which contains an annular tear. These findings have a similar appearance to the previous examination. There is bilateral facet hypertrophy. There is mild central narrowing with narrowing of the lateral recesses, left worse than right. There is moderate to severe bilateral neural foraminal stenosis. The visualized intra-abdominal structures unremarkable for acute abnormality. IMPRESSION: Persistent degenerative findings at L2-L3, improved since the previous examination with decreased size of the bulging disc material and moderate instead of severe central stenosis when compared to the previous MRI. Multilevel other degenerative findings as detailed above. Dictated by: Dictated on workstation # [id number]
--- NOTE | 2022-08-13 17:03 | Diagnostic Imaging Report ---
INDICATION: Lower back pain. COMPARISON: 08/17/2021. TECHNIQUE: Four radiographs of the lumbar spine dated August 13, 2022. FINDINGS: Approximately 5 to 6 mm anterolisthesis of L4 on L5, stable from the prior examination. 4 to 5 mm of retrolisthesis of L2 on L3, stable from the prior exam. No significant abnormal translational motion with flexion and extension. No new significant anterolisthesis or retrolisthesis. Minimal anterior wedging and endplate degenerative changes about the thoracolumbar junction and upper lumbar spine are again identified and stable. These endplate degenerative changes are greatest at L2/L3. No acute fracture or dislocation. No destructive osseous process. Scattered facet joint degenerative changes, greatest within the upper abdomen lower lumbar spine. Significant background vascular calcifications. Surgical clips overlie the right upper abdomen. The sacroiliac joints are intact. IMPRESSION: 1. Stable anterolisthesis and retrolisthesis within the lumbar spine without significant abnormal translational motion. 2. Significant multilevel degenerative changes, as above, greatest at L2/L3. Dictated by: Dictated on workstation # [id number]
== END ==
LOC: RAD 12:35
PROVIDERS: ATTEND Pain Medicine Interventional Pain Medicine
DX: M47.26 Other spondylosis with radiculopathy, lumbar region (principal); M47.817 Spondylosis without myelopathy or radiculopathy, lumbosacral region; M51.16 Intervertebral disc disorders with radiculopathy, lumbar region; M51.27 Other intervertebral disc displacement, lumbosacral region; M51.37 Other intervertebral disc degeneration, lumbosacral region; M48.061 Spinal stenosis, lumbar region without neurogenic claudication; M48.07 Spinal stenosis, lumbosacral region; M43.16 Spondylolisthesis, lumbar region
CPT/HCPCS: 72110; 72148

== ENCOUNTER → 2022-09-25 | Outpatient (CLI) | payer OTHER, MEDICAID ==
--- NOTE | 2022-09-25 12:10 | Diagnostic Imaging Report ---
EXAMINATION: Left shoulder MRI without contrast, 09/25/2022. TECHNIQUE: Multiplanar, multisequence [id number] MRI of the left upper extremity was accomplished. INDICATION: Was cutting wood, with a secondary injury to the shoulder. Shoulder pain. Prior surgeries. FINDINGS: Susceptibility artifact is seen about the shoulder consistent with history of prior surgery. There is irregularity along the undersurface of the infraspinatus tendon consistent with a partial-thickness articular-sided tear. Thinning along the articular surface of the supraspinatus tendon consistent with a partial articular-sided tear as well. No full-thickness tears or retraction appreciated. There is diffuse tendinosis throughout the subscapularis tendon. A partial intrasubstance tear is suspected. The long head of the biceps tendon lies in the bicipital groove. It is diffusely prominent and slightly hyperintense at the level of the subscapularis tendon and throughout its intracapsular aspect consistent with diffuse tendinosis. There is no discontinuity. Biceps tendon anchor is intact. Diffuse abnormal signal intensity is seen throughout the superior and inferior labrum. This finding is suspicious for a labral tear on this noncontrast examination. Tiny cystic changes posterior to the glenoid could represent a small paralabral cysts. There is narrowing, spurring, and subchondral cystic change throughout the glenohumeral joint. Similar findings are seen at the acromioclavicular joint. There is an effusion within the glenohumeral joint. There is a fair amount of fluid throughout the subdeltoid-subacromial bursa suggesting bursitis. There is fatty infiltration and mild atrophy throughout the supraspinatus muscle. Remaining musculature is fairly well maintained. Visualized axilla is unremarkable. IMPRESSION: 1. Partial-thickness articular-sided tears of the supraspinatus and infraspinatus tendons. 2. Marked tendinosis throughout the subscapularis tendon with a likely partial intrasubstance tear. 3. Diffuse tendinosis throughout the long head of the biceps tendon with no focal tear appreciated. 4. Highly suspected diffuse tear of the labrum, poorly characterized without contrast, with a small likely paralabral cyst posteriorly. 5. Glenohumeral and acromioclavicular osteoarthritic changes. 6. Findings of bursitis throughout the subdeltoid-subacromial bursa. Dictated by: Dictated on workstation # [id number]
== END ==
LOC: RAD 08:58
PROVIDERS: ATTEND Physician Assistant
DX: S46.812A Strain of other muscles, fascia and tendons at shoulder and upper arm level, left arm, initial encounter (principal); M19.012 Primary osteoarthritis, left shoulder; M75.52 Bursitis of left shoulder; X58.XXXA Exposure to other specified factors, initial encounter
CPT/HCPCS: 73221

== ENCOUNTER → 2022-09-30 | Outpatient (CLI) | payer MEDICARE, MEDICAID | LOC: ORTHO 08:43 | PROVIDERS: ATTEND Orthopaedic Surgery | DX: M75.52 Bursitis of left shoulder (principal) | CPT/HCPCS: 20610 ==

== ENCOUNTER → 2022-10-23 | Outpatient (CLI) | payer MEDICARE, MEDICAID | LOC: ORTHO 13:00 | PROVIDERS: ATTEND Orthopaedic Surgery | DX: M75.52 Bursitis of left shoulder (principal); I10 Essential (primary) hypertension; E11.9 Type 2 diabetes mellitus without complications; E66.9 Obesity, unspecified; E78.2 Mixed hyperlipidemia | CPT/HCPCS: 99213 ==

== ENCOUNTER → 2022-11-24 | Outpatient (CLI) | payer MEDICARE, MEDICAID | LOC: ORTHO 17:05 | PROVIDERS: ATTEND Orthopaedic Surgery | DX: M75.52 Bursitis of left shoulder (principal); I10 Essential (primary) hypertension; E66.9 Obesity, unspecified; E11.9 Type 2 diabetes mellitus without complications; E78.5 Hyperlipidemia, unspecified | CPT/HCPCS: 99213 ==

== ENCOUNTER → 2022-12-04 | Outpatient (CLI) | payer MEDICARE, MEDICAID ==
--- NOTE | 2022-12-07 13:54 | Diagnostic Imaging Report ---
3D bilateral screening mammogram with CAD. This study was compared to the prior exams of 05/21/2021, 08/05/2020, 05/31/2019 and 01/16/2019. At this time there are no current complaints. The current study was also evaluated with a Computer Aided Detection (CAD) system. FINDINGS: There are scattered fibroglandular densities in both breasts which could obscure a lesion. Overall, there does not appear to have been any significant change when compared to the prior exam. No primary or secondary sign of malignancy is noted. IMPRESSION: There is no radiographic evidence for malignancy ACR BI-RADS Category 1: Negative. Result letter will be mailed to the patient. Note: At least 10% of breast cancer is not imaged by mammography. Dictated on workstation # [id number]
== END ==
LOC: RAD 12:49
PROVIDERS: ATTEND Physician Assistant
DX: Z12.31 Encounter for screening mammogram for malignant neoplasm of breast (principal)
CPT/HCPCS: 77063; 77067

== ENCOUNTER → 2023-04-14 | Outpatient (CLI) | payer MEDICARE, MEDICAID ==
--- NOTE | 2023-04-14 12:51 | Diagnostic Imaging Report ---
PROCEDURE: MRI lumbar spine. TECHNIQUE: Multiplanar, multisequence MRI of the lumbar spine was performed without contrast. INDICATION: Disc bulge, low back pain. COMPARISON: 08/13/2022. FINDINGS: Alignment of the lumbar spine demonstrates grade 1 retrolisthesis at L2-L3 and L5-S1 which appears stable since the prior study. There are Modic type II degenerative endplate changes at L2-L3 and L5-S1. No acute fracture is seen. There is multilevel disc height loss, most severe at L2-L3 and L5-S1. The conus terminates in appropriate position. Soft tissues about the lumbar spine demonstrate no acute abnormality. There does appear to be a small cyst in the right kidney. The left kidney is not seen. T12-L1: Minimal disc bulge and facet arthropathy. No spinal canal or foraminal stenosis. L1-L2: Disc bulge with facet arthropathy and ligamentous infolding. Mild spinal canal narrowing. No foraminal stenosis. L2-L3: Diffuse disc bulge with facet arthropathy and ligamentous infolding. Moderate spinal canal stenosis with mild narrowing of the lateral recesses bilaterally. [id number] right and moderate left foraminal stenosis. L3-L4: Diffuse disc bulge and facet arthropathy with ligamentous infolding. [id number]-qi-[id number] spinal canal stenosis with mild narrowing of the left lateral recess. Moderate right and severe left foraminal stenosis. L4-L5: Diffuse disc bulge and facet arthropathy with ligamentous infolding. Moderate spinal canal stenosis with mild narrowing of the lateral recesses bilaterally. Severe bilateral foraminal stenosis. L5-S1: Diffuse disc bulge and facet arthropathy. No spinal canal stenosis. Moderate right and severe left foraminal stenosis. Overall degenerative change appears stable to slightly increased since the prior study. IMPRESSION: 1. Degenerative changes throughout the lumbar spine, most severe at L2-L3 and L5-S1. There is moderate spinal canal stenosis at L2-L3 and L4-L5. 2. Multilevel foraminal stenosis, as described above. Dictated by: Dictated on workstation # [id number]
== END ==
LOC: RAD 08:50
PROVIDERS: ATTEND Physician Assistant
DX: M47.816 Spondylosis without myelopathy or radiculopathy, lumbar region (principal); M51.26 Other intervertebral disc displacement, lumbar region; M48.061 Spinal stenosis, lumbar region without neurogenic claudication
CPT/HCPCS: 72148

== ENCOUNTER → 2023-04-29 | Outpatient (CLI) | payer MEDICARE, MEDICAID ==
--- NOTE | 2023-04-29 11:07 | Diagnostic Imaging Report ---
PROCEDURE: MR imaging cervical spine without contrast. TECHNIQUE: Multiplanar, multisequence MR imaging of the cervical spine was performed without contrast. INDICATION: Neck pain and injury. Recent fall. COMPARISON: CT cervical spine 08/24/2020. FINDINGS: The patient is status post previous anterior cervical discectomy and fusion of C4-C7. There is a slight degenerative retrolisthesis of C3 on C4 and there is a grade 1 anterolisthesis of T1 on T2 and T2 on T3 due to facet hypertrophy. Craniocervical junction relationships are maintained. Allowing for artifact related to the fusion construct, there are no marrow signal changes present to suggest acute osseous injury or suspicious marrow replacing lesion. The visualized intracranial contents are unremarkable. Cervical cord is normal in caliber. There is no syrinx. There is no abnormal epidural process. At C2-C3, there are small uncovertebral spurs. There is mild narrowing of the neural foramen. There is no significant canal stenosis. At C3-C4, retrolisthesis, disc bulging and posterior ligamentous thickening can contribute to moderate to severe narrowing of the central canal. There is also uncovertebral arthropathy with severe narrowing of both of the neural foramen. At C4-C5, there is mild residual narrowing of the neural foramen without significant canal stenosis. At C5-C6, there is mild residual narrowing of the dural foramen without significant canal stenosis. At C6-C7, there is residual disc bulging. There is moderate narrowing of the central canal. There is left greater than right uncovertebral arthropathy. There is severe left and moderate to severe right foraminal stenosis. At C7-T1, disc bulging, facet arthropathy and uncovertebral spurring are present with moderate narrowing of the central canal and severe narrowing of both neural foramen. There is also mild narrowing of the central canal and both the T1-T2 and T2-T3. There is severe bilateral foraminal stenosis at each level. Paraspinal soft tissues are unremarkable. The vascular flow voids are maintained. IMPRESSION: 1. Previous operative changes of an ACDF of C4-C7. 2. Multilevel cervical degenerative disc disease and facet arthropathy without findings of an acute or suspicious osseous abnormality. 3. No cord signal abnormality or abnormal epidural process 4. Variable degrees of stenosis throughout the cervical and upper thoracic spine are detailed above level by level. Dictated by: Dictated on workstation # [id number]
== END ==
LOC: RAD 07:27
PROVIDERS: ATTEND Physician Assistant
DX: M48.02 Spinal stenosis, cervical region (principal); M47.22 Other spondylosis with radiculopathy, cervical region; M50.30 Other cervical disc degeneration, unspecified cervical region; M48.04 Spinal stenosis, thoracic region
CPT/HCPCS: 72141

== ENCOUNTER → 2023-08-17 | Outpatient (CLI) | payer MEDICARE ==
[~2023-08-17] MED LIST changes: +CATHETER FLUSH 10 ML SYR IVP PRN; +REGADENOSON 0.4 MG/5 ML SYR IV ONE
[2023-08-17 09:10] VITALS: BP 175/86
== END ==
LOC: CARD 06:51
PROVIDERS: ATTEND Internal Medicine Cardiovascular Disease
DX: I25.10 Atherosclerotic heart disease of native coronary artery without angina pectoris (principal)
CPT/HCPCS: 78452; 93017; A9502

== ENCOUNTER → 2023-08-20 | Outpatient (CLI) | payer MEDICARE ==
[~2023-08-20] MED LIST changes: -CATHETER FLUSH 10 ML SYR IVP PRN; -REGADENOSON 0.4 MG/5 ML SYR IV ONE
== END ==
LOC: CARD 10:30
PROVIDERS: ATTEND Internal Medicine Cardiovascular Disease
DX: I25.10 Atherosclerotic heart disease of native coronary artery without angina pectoris (principal)
CPT/HCPCS: 93306